=== PATIENT | female | born 1945 | race Caucasian/White ===

== ENCOUNTER 2025-02-16 06:03 | Outpatient (REF) | payer MEDICARE, SELFPAY ==
[2025-02-16 06:05] LABS: MANUAL DIFF FLAG NO
--- OUTSIDE RECORDS SUMMARY | 2025-02-16 06:06 | XMS_ITS | Encounter Summary ---
Author Organization [facility] Address [address] [place] [address] Phone Care Team Providers Care Mobile Home Mechanic Name Role Phone Dandre Chavez MD Primary Care Provider [phone] Encounter Details Date Type Department Care Team (Late st Contact Info) Description 10/30/2022 Documentation Only [facility] [address] [place] [address] Melissa Delgadillo [address] [place] [phone] Social History Tobacco Use Types Packs/Day Years Used Date Smoking Tobacco: Never Comments Unknown Sex and Gender Information Value Date Recorded Sex Assigned at Not on file Legal Sex Female 4:32 PM EST Gender Identity Not on file Sexual Orientation Not on file documented as of this encounter Plan of Treatment Upcoming Encounters Date Type Department Care Team (Late st Contact Info) Description 04/13/2025 3:10 PM EDT Office Visit [facility] [address] [place] [phone] Og Arzate MD [address] [place] [address] [place] [phone] documented as of this encounter Visit Diagnoses Not on filedocumented in this encounter Care Teams Mobile Home Mechanic Relationship Specialty Start Date End Date Dandre Chavez MD [address] [place] [address] [address] [place], [place] PCP - General 07/07/19 documented as of this encounter
[2025-02-16 06:39] LABS: Basophils Percent Auto 0.8 % (0-2); Eosinophils Absolute Auto 0.2 X10*3/uL (0.0-0.4); Hemoglobin 8.5 g/dl (12.0-16.0); Imm Gran Abs Auto 0.02 X10*3/uL (0.00-0.03); Imm Gran Pct Auto 0.4 % (0.0-0.4); Lymphocytes Absolute Auto 0.8 X10*3/uL (1.2-4.9); Lymphocytes Percent Auto 14.4 % (20-40); Mean Corpuscular HGB Conc 28.3 g/dl (31.0-35.0); Mean Corpuscular Hemoglobin 28.1 pg (27.0-33.0); Mean Platelet Volume 11.1 fL (9.4-12.3); Monocytes Absolute Auto 0.9 X10*3/uL (0.1-1.2); Monocytes Percent Auto 16.3 % (2-11); Neutrophils Absolute Auto 3.4 x10*3/uL (2.0-8.3); Neutrophils Percent Auto 64.1 % (45-73); Platelet Count 217 X10*3/uL (160-400); Red Blood Count 3.03 X10*6/uL (4.20-5.50); Red Cell Distribution Width 17.3 % (11.0-16.0); White Blood Count 5.3 X10*3/uL (4.8-10.8)
[2025-02-16 06:46] LABS: Alanine Aminotransferase 12 U/L (0-31); Albumin Level 3.3 g/dL (3.5-5.0); Alkaline Phosphatase 56 U/L (39-117); Anion Gap 13 (12-20); Aspartate Amino Transferase 20 U/L (5-31); Bilirubin Total 0.6 mg/dL (0.0-1.0); Blood Urea Nitrogen 63 mg/dL (9-16); Calcium 8.9 mg/dL (8.4-10.2); Carbon Dioxide 29 mmol/L (22-29); Chloride 104 mmol/L (96-108); Estimated Glomerular Filt Rate 23; Glucose Random 128 mg/dL (60-115); Potassium 3.8 mmol/L (3.3-5.1); Sodium 142 mmol/L (135-145); Total Protein 6.1 g/dL (6.5-8.0)
== END 2025-02-16 06:04 | disposition home or self-care (01) ==
LOC: HO.MMNH2L 06:03
PROVIDERS: Visit Provider Nurse Practitioner Family
DX: I10 Essential (primary) hypertension (principal); N18.4 Chronic kidney disease, stage 4 (severe)
CPT/HCPCS: 36415; 80053; 85025

== ENCOUNTER 2025-02-22 05:46 | Outpatient (REF) | payer MEDICARE, SELFPAY ==
[2025-02-22 05:46] LABS: MANUAL DIFF FLAG NO
--- OUTSIDE RECORDS SUMMARY | 2025-02-22 05:49 | XMS_ITS | Encounter Summary ---
Author Organization [facility] Address [address] [place] [address] Phone Care Team Providers Care Filtration Plant Operator Name Role Phone Dandre Chavez MD Primary Care Provider [phone] Encounter Details Date Type Department Care Team (Late st Contact Info) Description 10/30/2022 Documentation Only [facility] [address] [place] [address] Melissa Delgadillo [address] [place] [phone] Social History Tobacco Use Types Packs/Day Years [...] Visit [facility] [address] [place] [phone] Og Arzate MD [address] [place] [address] [place] [phone] documented as of this encounter Visit Diagnoses Not on filedocumented in this encounter Care Teams Filtration Plant Operator Relationship Specialty Start Date End Date Dandre Chavez MD [address] [place] [address] [address] [place], [place] PCP - General 07/07/19 documented as of this encounter
[2025-02-22 07:04] LABS: Anion Gap 15 (12-20); Blood Urea Nitrogen 61 mg/dL (9-16); Calcium 9.4 mg/dL (8.4-10.2); Carbon Dioxide 27 mmol/L (22-29); Chloride 106 mmol/L (96-108); Estimated Glomerular Filt Rate 24; Glucose Random 111 mg/dL (60-115); Potassium 3.9 mmol/L (3.3-5.1); Sodium 144 mmol/L (135-145)
[2025-02-22 07:16] LABS: Basophils Percent Auto 1.1 % (0-2); Eosinophils Absolute Auto 0.2 X10*3/uL (0.0-0.4); Eosinophils Percent Auto 4.1 % (0-4); Hematocrit 31.4 % (37.0-47.0); Imm Gran Abs Auto 0.01 X10*3/uL (0.00-0.03); Imm Gran Pct Auto 0.3 % (0.0-0.4); Lymphocytes Absolute Auto 0.6 X10*3/uL (1.2-4.9); Lymphocytes Percent Auto 16.2 % (20-40); Mean Corpuscular HGB Conc 28.7 g/dl (31.0-35.0); Mean Corpuscular Volume 97.8 fL (80.0-98.0); Mean Platelet Volume 10.5 fL (9.4-12.3); Monocytes Absolute Auto 0.6 X10*3/uL (0.1-1.2); Monocytes Percent Auto 15.1 % (2-11); Neutrophils Absolute Auto 2.3 x10*3/uL (2.0-8.3); Neutrophils Percent Auto 63.2 % (45-73); Platelet Count 198 X10*3/uL (160-400); Red Blood Count 3.21 X10*6/uL (4.20-5.50); Red Cell Distribution Width 17.7 % (11.0-16.0); White Blood Count 3.7 X10*3/uL (4.8-10.8)
== END 2025-02-22 05:47 | disposition home or self-care (01) ==
LOC: HO.MMNH2L 05:46
PROVIDERS: Visit Provider Nurse Practitioner Family
DX: I10 Essential (primary) hypertension (principal); N18.4 Chronic kidney disease, stage 4 (severe)
CPT/HCPCS: 36415; 80048; 85025

== ENCOUNTER 2025-02-23 05:36 | Outpatient (REF) | payer MEDICARE, SELFPAY ==
[2025-02-23 05:39] LABS: MANUAL DIFF FLAG NO
--- OUTSIDE RECORDS SUMMARY | 2025-02-23 05:39 | XMS_ITS | Encounter Summary ---
Author Organization [facility] Address [address] [place] [address] Phone Care Team Providers Care Book Sewing Machine Operator Name Role Phone Dandre Chavez MD Primary Care Provider [phone] Encounter Details Date Type Department Care Team (Late st Contact Info) Description 10/30/2022 Documentation Only [facility] [address] [place] [address] Melissa Delgadillo [address] [place] [phone] Social History Tobacco Use Types Packs/Day Years [...] Visit [facility] [address] [place] [phone] Og Arzate MD [address] [place] [address] [place] [phone] documented as of this encounter Visit Diagnoses Not on filedocumented in this encounter Care Teams Book Sewing Machine Operator Relationship Specialty Start Date End Date Dandre Chavez MD [address] [place] [address] 201 [place], [place] PCP - General 07/07/19 documented as of this encounter
[2025-02-23 06:13] LABS: Anion Gap 14 (12-20); Blood Urea Nitrogen 63 mg/dL (9-16); Calcium 9.3 mg/dL (8.4-10.2); Carbon Dioxide 27 mmol/L (22-29); Chloride 106 mmol/L (96-108); Estimated Glomerular Filt Rate 23; Glucose Random 109 mg/dL (60-115); Potassium 3.8 mmol/L (3.3-5.1); Sodium 143 mmol/L (135-145)
[2025-02-23 06:18] LABS: Basophils Percent Auto 0.8 % (0-2); Eosinophils Absolute Auto 0.1 X10*3/uL (0.0-0.4); Eosinophils Percent Auto 3.5 % (0-4); Hematocrit 28.4 % (37.0-47.0); Hemoglobin 8.2 g/dl (12.0-16.0); Imm Gran Abs Auto 0.01 X10*3/uL (0.00-0.03); Imm Gran Pct Auto 0.3 % (0.0-0.4); Lymphocytes Absolute Auto 0.7 X10*3/uL (1.2-4.9); Lymphocytes Percent Auto 18.1 % (20-40); Mean Corpuscular HGB Conc 28.9 g/dl (31.0-35.0); Mean Corpuscular Hemoglobin 27.7 pg (27.0-33.0); Mean Corpuscular Volume 95.9 fL (80.0-98.0); Mean Platelet Volume 10.7 fL (9.4-12.3); Monocytes Absolute Auto 0.7 X10*3/uL (0.1-1.2); Monocytes Percent Auto 18.6 % (2-11); Neutrophils Absolute Auto 2.2 x10*3/uL (2.0-8.3); Neutrophils Percent Auto 58.7 % (45-73); Platelet Count 177 X10*3/uL (160-400); Red Blood Count 2.96 X10*6/uL (4.20-5.50); White Blood Count 3.7 X10*3/uL (4.8-10.8)
== END 2025-02-23 05:37 | disposition home or self-care (01) ==
LOC: HO.MMNH2L 05:36
PROVIDERS: Visit Provider Student in an Organized Health Care Education/Training Program
DX: J44.1 Chronic obstructive pulmonary disease with (acute) exacerbation (principal); I27.20 Pulmonary hypertension, unspecified; I50.23 Acute on chronic systolic (congestive) heart failure
CPT/HCPCS: 36415; 80048; 85025

== ENCOUNTER 2025-02-26 05:24 | Outpatient (REF) | payer MEDICARE, SELFPAY ==
[2025-02-26 05:49] LABS: Basophils Percent Auto 0.6 % (0-2); Eosinophils Absolute Auto 0.1 X10*3/uL (0.0-0.4); Eosinophils Percent Auto 3.8 % (0-4); Hematocrit 28.5 % (37.0-47.0); Hemoglobin 8.4 g/dl (12.0-16.0); Imm Gran Abs Auto 0.01 X10*3/uL (0.00-0.03); Imm Gran Pct Auto 0.3 % (0.0-0.4); Lymphocytes Absolute Auto 0.6 X10*3/uL (1.2-4.9); Lymphocytes Percent Auto 17.7 % (20-40); MANUAL DIFF FLAG SCAN; Mean Corpuscular HGB Conc 29.5 g/dl (31.0-35.0); Mean Corpuscular Hemoglobin 28.4 pg (27.0-33.0); Mean Corpuscular Volume 96.3 fL (80.0-98.0); Mean Platelet Volume 10.4 fL (9.4-12.3); Monocytes Absolute Auto 0.7 X10*3/uL (0.1-1.2); Monocytes Percent Auto 20.4 % (2-11); Neutrophils Absolute Auto 1.9 x10*3/uL (2.0-8.3); Neutrophils Percent Auto 57.2 % (45-73); Platelet Count 164 X10*3/uL (160-400); Red Blood Count 2.96 X10*6/uL (4.20-5.50); Red Cell Distribution Width 18.2 % (11.0-16.0); SCAN SMEAR FLAG 1; White Blood Count 3.4 X10*3/uL (4.8-10.8)
[2025-02-26 06:06] LABS: Anion Gap 15 (12-20); Blood Urea Nitrogen 48 mg/dL (9-16); Calcium 8.7 mg/dL (8.4-10.2); Carbon Dioxide 28 mmol/L (22-29); Chloride 103 mmol/L (96-108); Estimated Glomerular Filt Rate 25; Glucose Random 104 mg/dL (60-115); Potassium 3.5 mmol/L (3.3-5.1); Sodium 142 mmol/L (135-145)
[2025-02-26 07:57] LABS: SLIDE REVIEW VERIFIED
== END 2025-02-26 05:25 | disposition home or self-care (01) ==
LOC: HO.MMNH2L 05:24
PROVIDERS: Visit Provider Student in an Organized Health Care Education/Training Program
DX: J44.1 Chronic obstructive pulmonary disease with (acute) exacerbation (principal); I27.20 Pulmonary hypertension, unspecified; I50.23 Acute on chronic systolic (congestive) heart failure
CPT/HCPCS: 36415; 80048; 85025

== ENCOUNTER 2025-03-01 07:38 | Outpatient (REF) | payer MEDICARE, SELFPAY ==
[2025-03-01 06:32] LABS: MANUAL DIFF FLAG NO
[2025-03-01 07:00] LABS: Basophils Percent Auto 0.8 % (0-2); Eosinophils Absolute Auto 0.2 X10*3/uL (0.0-0.4); Eosinophils Percent Auto 4.1 % (0-4); Hematocrit 30.1 % (37.0-47.0); Hemoglobin 8.6 g/dl (12.0-16.0); Imm Gran Abs Auto 0.01 X10*3/uL (0.00-0.03); Imm Gran Pct Auto 0.3 % (0.0-0.4); Lymphocytes Absolute Auto 0.7 X10*3/uL (1.2-4.9); Lymphocytes Percent Auto 17.7 % (20-40); Mean Corpuscular HGB Conc 28.6 g/dl (31.0-35.0); Mean Corpuscular Hemoglobin 28.2 pg (27.0-33.0); Mean Corpuscular Volume 98.7 fL (80.0-98.0); Monocytes Absolute Auto 0.6 X10*3/uL (0.1-1.2); Monocytes Percent Auto 14.6 % (2-11); Neutrophils Absolute Auto 2.4 x10*3/uL (2.0-8.3); Neutrophils Percent Auto 62.5 % (45-73); Platelet Count 166 X10*3/uL (160-400); Red Blood Count 3.05 X10*6/uL (4.20-5.50); Red Cell Distribution Width 18.2 % (11.0-16.0); White Blood Count 3.9 X10*3/uL (4.8-10.8)
[2025-03-01 07:15] LABS: Anion Gap 13 (12-20); Blood Urea Nitrogen 45 mg/dL (9-16); Calcium 8.7 mg/dL (8.4-10.2); Carbon Dioxide 29 mmol/L (22-29); Chloride 104 mmol/L (96-108); Estimated Glomerular Filt Rate 29; Glucose Random 89 mg/dL (60-115); Potassium 3.9 mmol/L (3.3-5.1); Sodium 142 mmol/L (135-145)
--- OUTSIDE RECORDS SUMMARY | 2025-03-01 07:40 | XMS_ITS | Encounter Summary ---
Author Organization [facility] Address [address] [place] [address] Phone Care Team Providers Care Director Hedis Name Role Phone Dandre Chavez MD Primary Care Provider [phone] Encounter Details Date Type Department Care Team (Late st Contact Info) Description 10/30/2022 Documentation Only [facility] [address] [place] [phone] Melissa Delgadillo [address] [place] [phone] Social History Tobacco Use Types Packs/Day Years [...] Visit [facility] [address] [place] [phone] Og Arzate MD [address] [place] [address] [place] [phone] documented as of this encounter Visit Diagnoses Not on filedocumented in this encounter Care Teams Director Hedis Relationship Specialty Start Date End Date Dandre Chavez MD [address] [place] [address], [address] [place], [place] PCP - General 07/07/19 documented as of this encounter
== END 2025-03-01 07:39 | disposition home or self-care (01) ==
LOC: HO.MMNH2L 07:38
PROVIDERS: Visit Provider Nurse Practitioner Family
DX: I12.9 Hypertensive chronic kidney disease with stage 1 through stage 4 chronic kidney disease, or unspecified chronic kidney disease (principal); N18.4 Chronic kidney disease, stage 4 (severe)
CPT/HCPCS: 36415; 80048; 85025

== ENCOUNTER 2025-03-08 14:25 | Outpatient (REF) | payer MEDICARE, SELFPAY ==
--- OUTSIDE RECORDS SUMMARY | 2018-12-31 05:05 | XMS_ITS | Continuity of Care Document ---
Author Organization Pending sale to [facility] Address [address] [address] Phone Care Team Providers Care Restaurant Busser Name Role Phone Brodie Hinds DO Unavailable Unavailable Advance Directives Directive Yes / No Effective Date File Name No Information Encounters Encounter Description Practice Location Reason(s) For Visit Diagnoses Date Provider Pending [facility] to [facility], [address], [id number], [place] tel:[phone] [address] [place] [address] No Information 2018 Guzman Calloway. [address] [place] [address], [id number], [place]. tel:[phone] Family History Family Member Type Diagnosis Age [...]
[2025-03-08 06:25] LABS: MANUAL DIFF FLAG NO
[2025-03-08 07:08] LABS: Hematocrit 31.2 % (37.0-47.0); Hemoglobin 9.1 g/dl (12.0-16.0); Imm Gran Abs Auto 0.01 X10*3/uL (0.00-0.03); Imm Gran Pct Auto 0.2 % (0.0-0.4); Lymphocytes Absolute Auto 0.7 X10*3/uL (1.2-4.9); Mean Corpuscular HGB Conc 29.2 g/dl (31.0-35.0); Mean Corpuscular Hemoglobin 28.5 pg (27.0-33.0); Mean Corpuscular Volume 97.8 fL (80.0-98.0); NRBC Abs Auto 0.000 X10*3/uL (0.0-0.012); NRBC Pct Auto 0.0 /100WBC (0.0-0.2); Platelet Count 190 X10*3/uL (160-400); Red Blood Count 3.19 X10*6/uL (4.20-5.50); White Blood Count 4.4 X10*3/uL (4.8-10.8)
[2025-03-08 07:25] LABS: Alanine Aminotransferase 31 U/L (0-31); Albumin Level 3.4 g/dL (3.5-5.0); Alkaline Phosphatase 67 U/L (39-117); Anion Gap 15 (12-20); Aspartate Amino Transferase 26 U/L (5-31); Blood Urea Nitrogen 50 mg/dL (9-16); Calcium 8.8 mg/dL (8.4-10.2); Carbon Dioxide 29 mmol/L (22-29); Chloride 102 mmol/L (96-108); Estimated Glomerular Filt Rate 27; Potassium 3.3 mmol/L (3.3-5.1); Sodium 143 mmol/L (135-145); Total Protein 6.2 g/dL (6.5-8.0)
--- OUTSIDE RECORDS SUMMARY | 2025-03-08 14:58 | XMS_ITS | Clinical Summary ---
Author Organization [address] Address [address] [place] [address] Phone Care Team Providers Care Quality Review Specialist Name Role Phone Amina Burciaga MD Primary Care Provider Immunizations Name Administration Dates Next Due Pfizer SARS-CoV-2 COVID-19, mRNA, LNP-S, preservative free 11/08/2020 Social History Tobacco Use Types Packs/Day Years Used Date Smoking Tobacco: Never Assessed Comments Unknown Sex and Gender Information Value Date Recorded Sex Assigned at Not on file Legal Sex Female 8:20 PM EST Gender Identity Not on file Sexual Orientation Not on file Plan of Treatment Health Maintenance Due Date Last Done Comments Diabetes: Annual Foot Exam 1957 Diabetes: Annual Retina Eye Exam 1955 Zoster Vaccines (1 of 2) 1997 Pneumococcal Vaccine: 50+ Years (2 of 2 - PCV) 05/27/2015 05/27/2014 RSV Immunization Adult Patients (1 - 1-dose 75+ series) 2022 Cholesterol Screening (Lipid Panel) 09/26/2023 Depression Screening 09/26/2023 Falls Risk Assessment 09/26/2023 Hepatitis C Screening 09/26/2023 Medicare Annual Wellness Visit 09/26/2023 Osteoporosis Screening (Bone Density Screening) 09/26/2023 Social Influencers of Health Screening 09/26/2023 Hepatitis B Vaccines (3 of 3 - 19+ 3-dose series) 11/12/2023 07/30/2023, 05/14/2023 COVID-19 Vaccine ( - season) 2024 09/25/2021, 11/29/2020, 11/08/2020 Diabetes: Annual Urine Albumin-Creatinine Ratio (uACR) 07/13/2024 Diabetes: Blood Sugar Control Test (HGBA1C) 03/23/2025 09/23/2024, 09/07/2024, 07/10/2024, Additional history exists Diabetes: Annual GFR (Glomerular Filtration Rate) 09/30/2025 09/30/2024, 09/23/2024, 09/11/2024, Additional history exists Hypertension/CHF/CAD Annual BMP Blood Test 09/30/2025 09/30/2024, 09/23/2024, 09/11/2024, Additional history exists DTaP,Tdap,and Td Vaccines (2 - Td or Tdap) 08/02/2032 08/02/2022 Influenza Vaccine Completed 07/04/2024, , 05/19/2020, Additional history exists HIB Vaccines Aged Out No longer eligi ble based on patient's age to complete this topic HPV Vaccines Aged Out No longer eligi ble based on patient's age to complete this topic Hepatitis A Vaccines Aged Out No long er eligible based on patient's age to complete this topic IPV Vaccines Aged Out No longer eligi ble based on patient's age to complete this topic MMR Vaccines Aged Out No longer eligi ble based on patient's age to complete this topic Meningococcal ACWY Vaccine Aged Out N o longer eligible based on patient's age to complete this topic Meningococcal B Vaccine Aged Out No l onger eligible based on patient's age to complete this topic RSV Immunization Patients Under 20 months Aged Out No longer eligible based on patient's age to complete this topic Varicella Vaccines Aged Out No longer eligible based on patient's age to complete this topic Procedures Procedure Name Priority Date/Time Associated Diagnosis Comments COMPREHENSIVE METABOLIC PANEL Routine 09/30/2024 9:57 AM EST Heart failure, unspecified (CMS/HCC) Vitamin D deficiency, unspecified HEMOGLOBIN A1C Routine 09/23/2024 8:20 AM EST Type 2 diabetes mellitus with unspecified complications (CMS/HCC) Unspecified systolic (congestive) heart failure (CMS/HCC) from Last 3 Months or Most Recently Relevant to Health Maintenance Results * (ABNORMAL) Comprehensive metabolic panel (09/30/2024 9:57 AM EST) Sodium 138 133 - 145 mmol/L LAB CHEMISTRY METHOD 09/30/2024 1:04 PM [facility] Potassium 3.7 3.5 - 5.5 mmol/L LAB CHEMISTRY METHOD 09/30/2024 1:04 PM [facility] Chloride 100 96 - 110 mmol/L LAB CHEMISTRY METHOD 09/30/2024 1:04 PM [facility] CO2 31 21 - 32 mmol/L LAB CHEMISTRY METHOD 09/30/2024 1:04 PM [facility] Anion Gap 7 3 - 11 LAB CHEMISTRY METHOD 09/30/2024 1:04 PM [facility] Glucose 228(H) 70 - 100 mg/dL LAB CHEMISTRY METHOD 09/30/2024 1:04 PM [facility] BUN 90(H) 5 - 25 mg/dL LAB CHEMISTRY METHOD 09/30/2024 1:04 PM [facility] Creatinine 2.19(H) 0.50 - 1.10 mg/dL LAB CHEMISTRY METHOD 09/30/2024 1:04 PM [facility] eGFR 23(L) >=60 mL/min/1. 73m2 LAB CHEMISTRY METHOD 09/30/2024 1:04 PM [facility] Comment:Calculation based on the Chronic Kidney Disease Epidemiology Collaboration (CKD-EPI) equation refit without adjustment for race. BUN/Creatinine Ratio 41.1 LAB CHEMISTRY METHOD 09/30/2024 1:04 PM [facility] Calcium 8.9 8.5 - 10.5 mg/dL LAB CHEMISTRY METHOD 09/30/2024 1:04 PM [facility] AST (SGOT) 22 10 - 42 unit/L LAB CHEMISTRY METHOD 09/30/2024 1:04 PM [facility] ALT (SGPT) 28 10 - 60 unit/L LAB CHEMISTRY METHOD 09/30/2024 1:04 PM [facility] Alkaline Phosphatase 47 42 - 121 unit/L LAB CHEMISTRY METHOD 09/30/2024 1:04 PM [facility] Total Protein 6.2 6.0 - 8.0 g/dL LAB CHEMISTRY METHOD 09/30/2024 1:04 PM [facility] Albumin 2.7(L) 3.2 - 5.0 g/dL LAB CHEMISTRY METHOD 09/30/2024 1:04 PM [facility] Total Bilirubin 0.6 0.0 - 1.4 mg/dL LAB CHEMISTRY METHOD 09/30/2024 1:04 PM [facility] Blood Venous blood specimen / Unknown Venipuncture / Unknown 09/30/2024 9:57 AM EST 09/30/2024 10:50 AM EST Isaac Stark MD LAB BLOOD ORDERABLES Final Resu lt Performing Organization Address [facility]/ZIP Co de Phone Number [facility] [address] [place] [address], [place] [phone] * Hemoglobin A1c (09/23/2024 8:20 AM EST) Hemoglobin A1C 5.3 <6.5 % LAB CHEMISTRY METHOD 09/23/2024 2:17 PM [facility] Mean Bld Glu Estim. 105 mg/dL LAB CHEMISTRY METHOD 09/23/2024 2:17 PM [facility] Blood Venous blood specimen / Unknown Venipuncture / Unknown 09/23/2024 8:20 AM EST 09/23/2024 12:06 PM EST us Amina Burciaga MD LAB BLOOD ORDERABLES Final Resul t Performing Organization Address [facility]/ZIP Co de Phone Number [facility] [address] [place] [address], [place] [phone] from Last 3 Months or Most Recently Relevant to Health Maintenance Insurance [place]ICA[place] Care Teams Quality Review Specialist Relationship Specialty Start Date End Date Amina Burciaga MD [address] [place] [phone] PCP - General Hospitalist Medicine 09/11/24
--- OUTSIDE RECORDS SUMMARY | 2025-03-08 14:58 | XMS_ITS | Encounter Summary ---
Author Organization [facility] Address [address] [place] [address] Phone Care Team Providers Care Vulnerability Assessment Analyst Name Role Phone Dandre Chavez MD Primary Care Provider [phone] Encounter Details Date Type Department Care Team (Late st Contact Info) Description 10/30/2022 Documentation Only [facility] [address] [place] [phone] Melissa Delgadillo [address] [place] [phone] Social History Tobacco Use Types Packs/Day Years [...] Visit [facility] [address] [place] [phone] Og Arzate MD [address] [place] [address] [place] [phone] documented as of this encounter Visit Diagnoses Not on filedocumented in this encounter Care Teams Vulnerability Assessment Analyst Relationship Specialty Start Date End Date Dandre Chavez MD [address] [place] [address], [address] [place], [place] PCP - General 07/07/19 documented as of this encounter
--- OUTSIDE RECORDS SUMMARY | 2025-03-08 14:58 | XMS_ITS | Clinical Summary ---
Author Organization [facility] Address [address] [place] [address] Care Team Providers Care Biochemistry Technician Name Role Phone Dandre Chavez MD Primary Care Provider [phone] Allergies Active Allergy Reactions Criticality Noted Date Comments Amlodipine Other (See Comments) 10/28/2018 Bethanechol Other (See Comments) 10/28/2018 Other reaction(s): anorexia and loss of sight Metoprolol 02/16/2022 Oxycodone-Acetaminophen Other (See Comments) Medications Medication Sig Dispensed Refills Start Date End Date Status allopurinol (ZYLOPRIM) 100 MG tablet TAKE 1 TABLET(100 MG) BY MOUTH EVERY DAY 0 01/23/2022 Active aspirin 81 MG EC tablet Take 1 tablet (81 mg total) by mouth. 0 Active atorvastatin (LIPITOR) tablet 80 mg atorvastatin 80 mg tablet 0 01/21/2015 Active carvedilol (COREG) 3.125 MG tablet Take 1 tablet (3.125 mg total) by mouth 2 (two) times a day. 0 09/10/2022 Active docusate sodium (COLACE) 100 MG capsule Take 1 capsule (100 mg total) by mouth 2 (two) times a day. 0 10/02/2022 Active Jardiance 10 MG tablet 0 10/19/2022 Active fexofenadine (JUAN) 60 MG tablet 0 Active glipiZIDE (GLUCOTROL) tablet 5 mg glipizide 5 mg tablet 0 11/22/2018 Act bety guselkumab (TREMFYA) 100 MG/ML Inject under the skin. 0 Active levothyroxine (SYNTHROID) tablet 112 mcg Take 1 tablet (112 mcg total) by mouth. 0 11/24/2018 Active PARoxetine (PAXIL) 20 MG tablet Take 1 tablet (20 mg total) by mouth daily. 0 10/18/2022 Active torsemide (DEMADEX) 100 MG tablet 0 09/27/2022 Active traMADol (ULTRAM) 50 MG tablet Take 50 mg by mouth every 6 (six) hours as needed. for pain 0 10/18/2022 Active Active Problems Problem Noted Date Diagnosed Date Anemia 11/09/2022 Social History Tobacco Use Types Packs/Day Years Used Date Smoking Tobacco: Never Assessed Sex and Gender Information Value Date Recorded Sex Assigned at Not on file Gender Identity Not on file Sexual Orientation Not on file Job Start Date Occupation Industry Not on file Not on file Not on file Last Filed Vital Signs Vital Sign Reading Time Taken Comments Blood Pressure 102/43 01/21/2023 2:50 PM EDT Pulse 64 01/21/2023 2:50 PM EDT Temperature 36.3 C (97.3 F) 01/21/2023 2:50 PM EDT Respiratory Rate 18 01/21/2023 2:50 PM EDT Oxygen Saturation 96% 01/21/2023 2:50 PM EDT Inhaled Oxygen Concentration - - Weight 123.6 kg (272 lb 7.8 oz) 11/12/2022 1:22 PM EDT Height - - Body Mass Index - - Plan of Treatment Health Maintenance Due Date Last Done Comments Hepatitis C Screening 1945 Depression Screening 1959 Preventative Health Evaluation 1965 DTap / Tdap / Td (1 - Tdap) 1966 Shingrix-Zoster Vaccine (1 o f 2) 1997 Fall Risk Assessment 02/24/2012 Osteoporosis Screening (DEXA Scan) 02/24/2012 Pneumococcal Vaccine (2 of 2 - PCV) 05/27/2015 05/27/2014 RSV Adult > 60+ Yrs or (1 - 1-dose 75+ series) 2022 COVID-19 Vaccine (3 - 2023-2 5 season) 2024 11/29/2020, 11/08/2020 Influenza Vaccine (Season Ended) 2025 05/19/2020, 10/06/2019, 09/12/2018 Hepatitis B Vaccines Aged Out No long er eligible based on patient's age to complete this topic RSV Ped < 20 months Aged Out No longe r eligible based on patient's age to complete this topic Care Teams Biochemistry Technician Relationship Specialty Start Date End Date Dandre Chavez MD [address] [place] [address] [place] [phone] PCP - General Internal Medicine 11/06/22
== END 2025-03-08 14:26 | disposition home or self-care (01) ==
LOC: HO.MMNH2L 14:25
PROVIDERS: Visit Provider Nurse Practitioner Family
DX: I10 Essential (primary) hypertension (principal); N18.4 Chronic kidney disease, stage 4 (severe)
CPT/HCPCS: 36415; 80053; 85025

== ENCOUNTER 2025-03-12 05:24 | Outpatient (REF) | payer MEDICARE, SELFPAY ==
[2025-03-12 06:01] LABS: Anion Gap 13 (12-20); Blood Urea Nitrogen 49 mg/dL (9-16); Calcium 8.9 mg/dL (8.4-10.2); Carbon Dioxide 30 mmol/L (22-29); Chloride 103 mmol/L (96-108); Estimated Glomerular Filt Rate 25; Potassium 3.9 mmol/L (3.3-5.1); Sodium 142 mmol/L (135-145)
== END 2025-03-12 05:25 | disposition home or self-care (01) ==
LOC: HO.MMNH2L 05:24
PROVIDERS: Visit Provider Nurse Practitioner Family
DX: I10 Essential (primary) hypertension (principal)
CPT/HCPCS: 36415; 80048

== ENCOUNTER 2025-03-22 06:02 | Outpatient (REF) | payer MEDICARE, SELFPAY ==
--- OUTSIDE RECORDS SUMMARY | 2018-12-31 05:05 | XMS_ITS | Continuity of Care Document ---
Author Organization [facility] Address [address] [address] Phone Care Team Providers Care Armature Coil Winder Name Role Phone Brodie Hinds DO Unavailable Unavailable Advance Directives Directive Yes / No Effective Date File Name No Information Encounters Encounter Description Practice Location Reason(s) For Visit Diagnoses Date Provider [facility], [address], [id number], [place] tel:[phone] [address] [place] [address] No Information 2018 Guzman Calloway. [address] [place] [address], [id number], [place]. tel:[phone] Family History Family Member Type Diagnosis Age [...]
[2025-03-22 05:53] LABS: MANUAL DIFF FLAG NO
--- OUTSIDE RECORDS SUMMARY | 2025-03-22 06:06 | XMS_ITS | Clinical Summary ---
Author Organization [facility] Address [address] [place] [address] Phone Care Team Providers Care Backing In Machine Tender Name Role Phone Dandre Chavez MD Primary Care Provider [phone] Allergies Active Allergy Reactions Criticality Noted Date Comments Amlodipine Other (see comments) 10/28/2018 Bethanechol Other (see comments) 10/28/2018 Metoprolol 02/16/2022 Other Other (see comments) 01/04/2020 Oxycodone-Acetaminophen Other (see comments) Medications ASPIRIN 81 PO Take 81 mg by mouth daily Active fexofenadine (JUAN) 60 MG tablet Active Loperamide HCl (IMODIUM PO) Imodium Active Multiple Vitamins-Minera ls (MULTIVITAMIN ADULTS PO) Take 1 tablet by mouth 1 (one) time each day Active atorvastatin (LIPITOR) 80 MG tablet Take 1 tablet by mouth at bed time 5 Active carvedilol (COREG) 12.5 MG tablet Take 3.125 mg by mouth in the morning and 3.125 mg in the evening. 0 Active glipiZIDE (GLUCOTROL) 5 MG tablet Take 7.5 mg by mouth 1 (one) time each day 9 Active levothyroxine (SYNTHROID, LEVOTHROID) 112 MCG tablet Take 1 tablet (112 mcg total) by mouth 1 (one) time each day 9 Active PARoxetine (PAXIL) 20 MG tablet Take 20 mg by mouth 1 (one) time each day 9 Active traMADol (ULTRAM) 50 MG tablet Take 50 mg by mouth every 6 (six) hours if needed Active triamcinolone (KENALOG) 0.1 % cream Apply topically 2 (two) times a day Active torsemide (DEMADEX) 100 MG tablet Take 100 mg by mouth 1 (one) time each day Active Guselkumab (Tremfya) 100 MG/ML solution pen-injector Inject under the skin Active allopurinol (ZYLOPRIM) 100 MG tablet TAKE 1 TABLET(100 MG) BY MOUTH EVERY DAY 60 tablet 2 2 Active Active Problems Problem Noted Date Diagnosed Date Iron deficiency anemia, not otherwise specified 11/30/2022 Anemia in chronic kidney disease 10/29/2022 Stage 3b chronic kidney disease 10/05/2019 Overview (09/05/2020): Update for Diagnosis Load Essential (primary) hypertension 10/05/2019 Type 2 diabetes mellitus with diabetic nephropat hy Resolved Problems Problem Noted Date Diagnosed Date Resolved Date Coronary atherosclerosis 10/28/201802/2020 Overview (07/08/2020): Last Assessment & Plan: History of inferior NC in 2013 with a stent to her RCA , LAD and circumflex and end STEMI in 2019 with another stent to mid LAD with 80% mid RCA and 50% proximal circumflex stenosis. Today clinically stable, denies angina, continue on aspirin 81 mg daily and to optimize risks factors. Recheck lipids on lipitor 80 mg daily. Acute nontraumatic kidney injury 12/13/2020 Systolic congestive heart failure 07/08/2020 Serum creatinine above reference range 12/13/2020 Psoriatic arthritis 07/08/20 20 Anemia 12/13/2020 Edema of lower extremity 02/2020 Essential hypertension 07/08 Hyperlipidemia 12/13/2020 Hypothyroidism 12/13/2020 Encounters Date Type Department Care Team Description 01/08/2025 Documentation Only [facility], [address] [place] [address] Radha Chatterjee MA from Last 3 Months Immunizations Immunization Administration Dates Next Due Hepatitis B 07/30/2023,05/14/2023 Pfizer SARS-COV-2 11/08/2020 Social History Tobacco Use Types Packs/Day Years Used Date Smoking Tobacco: Never Comments Unknown Sex and Gender Information Value Date Recorded Sex Assigned at Not on file Legal Sex Female 4:32 PM EST Gender Identity Not on file Sexual Orientation Not on file Last Filed Vital Signs Vital Sign Reading Time Taken Comments Blood Pressure 104/84 06/18/2023 4:39 PM EDT Pulse 73 10/18/2022 2:24 PM EST Temperature - - Respiratory Rate - - Oxygen Saturation - - Inhaled Oxygen Concentration - - Weight 130 kg (286 lb 9.6 oz) 07/04/2021 3:14 PM EDT Height 167.6 cm (5' 6 ) 10/05/2019 2:02 PM EST Body Mass Index 46.26 10/05/2019 2:02 PM EST Plan of Treatment Upcoming Encounters Date Type Department Care Team (Late st Contact Info) Description 04/13/2025 3:10 PM EDT Office Visit [facility], [address] [place] [phone] Og Arzate MD [address] [place] [phone] Health Maintenance Due Date Last Done Comments Pneumococcal Vaccine: 50+ Years (2 of 2 - PCV) 05/27/2015 05/27/2014 Diabetes: Ophthalmology Exam 11/23/2019 Diabetes: Pedal Pulse Checked 11/23/2019 Diabetes: Sensory Foot Exam 11/23/2019 Diabetes: Visual Foot Exam 11/23/2019 Diabetes: Hemoglobin A1C 12/22/2024 025, 09/07/2024, 10/18/2022, Additional history exists Influenza Vaccine (#1) 2025 07/04/2024, 2019 Pneumococcal Vaccine: Peds (0 to 5 Years) and At-Risk Patients (6 to 49 Years) Discontinued 05/27/2014 Hepatitis B Vaccine Aged Out 07/30/2023, No longer eligible based on patient's age to complete this topic Procedures Procedure Name Priority Date/Time Associated Diagnosis Comments HEMOGLOBIN A1C Routine 10/18/2022 2:34 PM EST Stage 3a chronic kidney disease (HCC) from Last 3 Months or Most Recently Relevant to Health Maintenance Results * (ABNORMAL) Hemoglobin A1c (10/18/2022 2:34 PM EST) Hemoglobin A1C 6.9(H) (4.0-5.6) % [facility] Comment: MONITORING: In known diabetic patients, hemoglobin A1c targets should be discussed with health care provider. DIAGNOSTIC USE: The [place] Diabetes Association (ADA) and the World Health Organization (WHO) recommend the use of HbA1c to diagnose diabetes using a threshold of 6.5%. Patients who have an HbA1c between 5.7% and 6.4% are considered at increased risk for developing diabetes in the future. CAUTION: Falsely low HbA1c results may be observed in patients with hemolytic anemia, homozygous forms of abnormal hemoglobin (e.g. SS, CC, SC), , recent blood loss or hemoglobin F greater than 7%. Fructosamine may be used as an alternate test in these cases. REFERENCE: ADA: Standards of Medical Care in Diabetes 2020, The Journal of Clinical and Applied Research and Education Volume 43, Supplement 1 Testing performed or reported by [facility], a Service of [facility], [address] [place] [address] Louis Fry MD, Accountancy Professor [facility]# [id number] Blood specimen (specimen) Venous blood / Unknown 10/18/2022 2:34 PM EST 10/18/2022 2:35 PM EST us Faina LUCIANO LAB BLOOD ORDERABLES Final Res ult [facility] from Last 3 Months or Most Recently Relevant to Health Maintenance Insurance Medicare [facility] Care Teams Backing In Machine Tender Relationship Specialty Start Date End Date Dandre Chavez MD [address] [place] [address], [address] [place] AGUIRRE PCP - General 07/07/19
--- OUTSIDE RECORDS SUMMARY | 2025-03-22 06:06 | XMS_ITS | Clinical Summary ---
Author Organization [address] Address [address] [place] [address] Phone Care Team Providers Care Registered Nurse Supervisor Name Role Phone Amina Burciaga MD Primary Care Provider [phone] Immunizations Name Administration Dates Next Due Pfizer [...] series) 2022 Cholesterol Screening (Lipid Panel) 09/26/2023 Falls Risk Assessment 09/26/2023 Hepatitis C Screening 09/26/2023 Medicare Annual Wellness Visit 09/26/2023 Osteoporosis Screening (Bone Density Screening) 09/26/2023 Social Influencers of Health Screening 09/26/2023 Hepatitis B Vaccines (3 of 3 - 19+ 3-dose series) 11/12/2023 07/30/2023, 05/14/2023 COVID-19 Vaccine ( - 2023- season) 2024 09/25/2021, 11/29/2020, 11/08/2020 Diabetes: Annual Urine Albumin-Creatinine Ratio (uACR) 07/13/2024 Depression Screening 09/02/2024 Diabetes: Blood Sugar Control Test (HGBA1C) 03/23/2025 09/23/2024, 09/07/2024, 07/10/2024, Additional history exists Influenza Vaccine (#1) 2025 4, 08/02/2022, 05/19/2020, Additional history exists Diabetes: Annual GFR (Glomerular Filtration Rate) 09/30/2025 09/30/2024, 09/23/2024, 09/11/2024, Additional history exists Hypertension/CHF/CAD Annual BMP Blood Test 09/30/2025 09/30/2024, 09/23/2024, 09/11/2024, Additional history exists DTaP,Tdap,and Td Vaccines (2 - Td or Tdap) 08/02/2032 08/02/2022 HIB Vaccines Aged Out No longer eligi [...] mmol/L LAB CHEMISTRY METHOD 09/30/2024 1:04 PM [facility] Potassium 3.7 3.5 - 5.5 mmol/L LAB CHEMISTRY METHOD 09/30/2024 1:04 PM [facility] Chloride 100 96 - 110 mmol/L LAB CHEMISTRY METHOD 09/30/2024 1:04 PM [facility] CO2 31 21 - 32 mmol/L LAB CHEMISTRY METHOD 09/30/2024 1:04 PM [facility] Anion Gap 7 3 - 11 LAB CHEMISTRY METHOD 09/30/2024 1:04 PM [facility] Glucose 228(H) 70 - 100 mg/dL LAB CHEMISTRY METHOD 09/30/2024 1:04 PM [facility] BUN 90(H) 5 - 25 mg/dL LAB CHEMISTRY METHOD 09/30/2024 1:04 PM [facility] Creatinine 2.19(H) 0.50 - 1.10 mg/dL LAB CHEMISTRY METHOD 09/30/2024 1:04 PM [facility] eGFR 23(L) >=60 mL/min/1. 73m2 LAB CHEMISTRY METHOD 09/30/2024 1:04 PM [facility] Comment:Calculation based on the Chronic Kidney Disease Epidemiology Collaboration (CKD-EPI) equation refit without adjustment for race. BUN/Creatinine Ratio 41.1 LAB CHEMISTRY METHOD 09/30/2024 1:04 PM [facility] Calcium 8.9 8.5 - 10.5 mg/dL LAB CHEMISTRY METHOD 09/30/2024 1:04 PM [facility] AST (SGOT) 22 10 - 42 unit/L LAB CHEMISTRY METHOD 09/30/2024 1:04 PM [facility] ALT (SGPT) 28 10 - 60 unit/L LAB CHEMISTRY METHOD 09/30/2024 1:04 PM [facility] Alkaline Phosphatase 47 42 - 121 unit/L LAB CHEMISTRY METHOD 09/30/2024 1:04 PM EST [facility] Total Protein 6.2 6.0 - 8.0 g/dL LAB CHEMISTRY METHOD 09/30/2024 1:04 PM [facility] Albumin 2.7(L) 3.2 - 5.0 g/dL LAB CHEMISTRY METHOD 09/30/2024 1:04 PM [facility] Total Bilirubin 0.6 0.0 - 1.4 mg/dL LAB CHEMISTRY METHOD 09/30/2024 1:04 PM [facility] Blood Venous blood specimen / Unknown Venipuncture / Unknown 09/30/2024 9:57 AM EST 09/30/2024 10:50 AM EST Isaac Stark MD LAB BLOOD ORDERABLES Final Resu lt Performing Organization Address City/[facility]/ZIP Co de Phone Number [facility] [address] [place] [address], [place] [phone] * Hemoglobin A1c (09/23/2024 8:20 AM EST) Hemoglobin A1C 5.3 <6.5 % LAB CHEMISTRY METHOD 09/23/2024 2:17 PM [facility] Mean Bld Glu Estim. 105 mg/dL LAB CHEMISTRY METHOD 09/23/2024 2:17 PM [facility] Blood Venous blood specimen / Unknown Venipuncture / Unknown 09/23/2024 8:20 AM EST 09/23/2024 12:06 PM EST Amina Burciaga MD LAB BLOOD ORDERABLES Final Resul t Performing Organization Address City/[facility]/ZIP Co de Phone Number [facility] [address] [place] [address], [place] [phone] from Last 3 Months or Most Recently Relevant to Health Maintenance Insurance [place] Care Teams Registered Nurse Supervisor Relationship Specialty Start Date End Date Amina Burciaga MD [address] [place] [phone] PCP - General Hospitalist Medicine 09/11/24
--- OUTSIDE RECORDS SUMMARY | 2025-03-22 06:06 | XMS_ITS | Encounter Summary ---
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 Social History Tobacco Use Types Packs/Day Years Used Date Smoking Tobacco: Former Smokeless Tobacco: Never Alcohol Use Standard Drinks/Week Comments Yes 0 (1 standard drink = 0.6 oz pure alcohol) once a year on special occasions Comments Unknown Sex and Gender Information Value Date Recorded Sex Assigned at Not on file Legal Sex Female 10:37 PM EDT Gender Identity Not on file Sexual Orientation Not on file documented as of this encounter Plan of Treatment Not on file documented as of this encounter Results * NC Stress Result for Nuclear Stress Test (12/16/2018 11:32 AM EDT) Max BP Systolic 150 mmHg [facility] Max BP Diastolic 80 mmHg [facility] Max HR 89 BPM [facility] Resting HR 78 BPM [facility] Resting BP Systolic 150 mmHg [facility] Resting BP Diastolic 80 mmHg [facility] Peak METS 1.0 METS [facility] Peak HR 83 BPM [facility] Anatomical Region Laterality Modality Heart Other 12/16/2018 10:5 0 AM EDT 12/16/2018 11:31 AM EDT Narrative 12/16/2018 10:34 PM EDT This report represents only part of the nuclear stress test - sestamibi images will be reported separately by the Dept. of Radiology. Stress Findings Sestamibi images will be reported out separately by the Department of Radiology. This report represents only part of the nuclear stress test. Correlation of the imaging and electrocardiographic results is necessary. Since both tests have a percentage of false negatives/positives, both results must be correlated with the patient's other clinical date. Response to Stress The patient exercised for minutes seconds, achieving 1.0 METS at peak exercise. Baseline blood pressure was 150/80 mmHg, and baseline heart rate was 78 bpm. The patient achieved a peak heart rate of 83 bpm, which is% of their maximum predicted heart rate. REGADENOSON Exercise Stress Test Report: Reason for termination: Protocol complete Summary: Resting ECG: SR HR 75 BPM, downsloping ST depressions I, aVF at baseline, RSR' Chest pain at rest: none Arrhythmias at baseline: none Patient unable to complete test on TM due to gait instability. The patient was infused with 0.4 mg of Regadenoson (Lexiscan) intravenously over 10 seconds followed immediately by the injection of the radiopharmaceutical. Patient tolerated Lexiscan infusion without complications. Test terminated due to completion of protocol. Summary: 1. EKG: No EKG changes suggestive of ischemia. Baseline ST-T wave abnormalities did not significantly change after administration of agent. 2. Symptoms: No chest pain or symptoms concerning for angina 3. Exercise physiology: Normal physiologic response to pharmacologic agent. HR to 89 BPM after injection of Regadenoson. BP 150/80 at baseline, 130/70 after administration of agent. See attached stress report for full details. 4. Arrhythmia: None Conclusion: Nondiagnostic pharmacologic stress test. No ischemic EKG changes from abnormal baseline with pharmacologic protocol. Patient hemodynamically stable at completion of exam. Nuclear image results pending under separate document (2 day study - resting to be completed tomorrow). EKG reviewed with Dr. Chatterjee. She has an already scheduled follow up appointment with Dr. Enciso in our cardiology office on 12/26/18. Cathy Browning, JASMINE, MPH. 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 It is not the complete legal health record.[facility]
--- OUTSIDE RECORDS SUMMARY | 2025-03-22 06:06 | XMS_ITS | Clinical Summary ---
Author Organization [facility] Address [address] [place] [address] Care Team Providers Care Plastics Fitter Name Role Phone Dandre Chavez MD Primary Care Provider [phone] Allergies Active Allergy Reactions Criticality Noted Date [...] 5 season) 2024 11/29/2020, 11/08/2020 Influenza Vaccine (#1) 2025 , 10/06/2019, 09/12/2018 Hepatitis B Vaccines Aged Out No long er eligible based on patient's age to complete this topic RSV Ped < 20 months Aged Out No longe r eligible based on patient's age to complete this topic Care Teams Plastics Fitter Relationship Specialty Start Date End Date Dandre Chavez MD [address] [place] [address] [place] [phone] PCP - General Internal Medicine 11/06/22
[2025-03-22 06:56] LABS: Hematocrit 31.5 % (37.0-47.0); Hemoglobin 9.1 g/dl (12.0-16.0); Imm Gran Abs Auto 0.01 X10*3/uL (0.00-0.03); Imm Gran Pct Auto 0.3 % (0.0-0.4); Lymphocytes Absolute Auto 0.6 X10*3/uL (1.2-4.9); Mean Corpuscular HGB Conc 28.9 g/dl (31.0-35.0); Mean Corpuscular Hemoglobin 28.0 pg (27.0-33.0); Mean Corpuscular Volume 96.9 fL (80.0-98.0); NRBC Abs Auto 0.000 X10*3/uL (0.0-0.012); NRBC Pct Auto 0.0 /100WBC (0.0-0.2); Platelet Count 195 X10*3/uL (160-400); Red Blood Count 3.25 X10*6/uL (4.20-5.50); White Blood Count 3.7 X10*3/uL (4.8-10.8)
[2025-03-22 07:01] LABS: Alanine Aminotransferase 19 U/L (0-31); Albumin Level 3.5 g/dL (3.5-5.0); Alkaline Phosphatase 59 U/L (39-117); Anion Gap 16 (12-20); Aspartate Amino Transferase 25 U/L (5-31); Blood Urea Nitrogen 83 mg/dL (9-16); Calcium 8.9 mg/dL (8.4-10.2); Carbon Dioxide 30 mmol/L (22-29); Chloride 102 mmol/L (96-108); Estimated Glomerular Filt Rate 18; Potassium 3.6 mmol/L (3.3-5.1); Sodium 144 mmol/L (135-145); Total Protein 6.6 g/dL (6.5-8.0)
== END 2025-03-22 06:03 | disposition home or self-care (01) ==
LOC: HO.MMNH2L 06:02
PROVIDERS: Visit Provider Nurse Practitioner Family
DX: I10 Essential (primary) hypertension (principal); N18.4 Chronic kidney disease, stage 4 (severe)
CPT/HCPCS: 36415; 80053; 85025

== ENCOUNTER 2025-03-29 06:14 | Outpatient (REF) | payer MEDICARE, SELFPAY ==
--- OUTSIDE RECORDS SUMMARY | 2018-12-31 05:05 | XMS_ITS | Continuity of Care Document ---
[facility] Organization [facility] Address [address] [address] Phone Care Team Providers Care Strap Sewer Name Role Phone Brodie Hinds DO Unavailable Unavailable Advance Directives Directive Yes / No Effective Date File Name No Information Encounters Encounter Description Practice Location Reason(s) For Visit Diagnoses Date [facility], [address], [id number], [place] tel:[phone] [address] [place] [address] No Information 2018 Guzman Calloway. [address] [place] [address], [id number], [place]. tel:[phone] Family History Family Member Type Diagnosis Age [...]
[2025-03-29 05:52] LABS: MANUAL DIFF FLAG NO
--- OUTSIDE RECORDS SUMMARY | 2025-03-29 06:18 | XMS_ITS | Clinical Summary ---
Author Organization [facility] Address [address] [place] [address] Care Team Providers Care Call Center Nurse Name Role Phone Dandre Chavez MD Primary Care Provider [phone] Allergies Active Allergy Reactions Criticality Noted Date [...] age to complete this topic Care Teams Call Center Nurse Relationship Specialty Start Date End Date Dandre Chavez MD [address] [place] [address] [place] [phone] PCP - General Internal Medicine 11/06/22
--- OUTSIDE RECORDS SUMMARY | 2025-03-29 06:18 | XMS_ITS | Encounter Summary ---
Author Organization [facility] Address [address] [place] [address] Phone Care Team Providers Care Nautical Instrument Mechanic Name Role Phone Dandre Chavez MD Primary Care Provider [phone]- [phone] Miguel Enciso MD Unavailable [phone] Encounter Details Date Type Department Care Team (Latest Contact Info) Description 12/16/2018 Ancillary Orders Non-Invasive Cardiology 30 [place] [address] Cathy Browning NP 101 [facility] 100 [place] [address] Atherosclerosis of lime coronary artery of lime heart with angina pectoris Social History Tobacco [...] AM EDT) Max BP Systolic 150 mmHg [facility] Max BP Diastolic 80 mmHg [facility] Max HR 89 BPM [facility] Resting HR 78 BPM [facility] Resting BP Systolic 150 mmHg [facility] Resting BP Diastolic 80 mmHg [facility] Peak METS 1.0 METS [facility] Peak HR 83 BPM [facility] Anatomical Region Laterality Modality Heart Other 12/16/2018 [...] in our cardiology office on 12/26/18. Cathy Browning NP, MPH. 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 It is not the complete legal health record.[facility]
--- OUTSIDE RECORDS SUMMARY | 2025-03-29 06:18 | XMS_ITS | Clinical Summary ---
Author Organization [facility], Address [address] [place] [address] Phone Care Team Providers Care Control Panel Tester Name Role Phone Dandre Chavez MD Primary Care Provider [phone] Allergies Active Allergy Reactions Criticality Noted Date [...] Last Assessment & Plan: History of inferior NV in 2013 with a stent to her [...] Only [facility], [address] [place] [address] Radha Chatterjee MA from Last 3 Months [...] Visit [facility], [address] [place] [phone] Og Arzate MD [address] [place] [phone] Health Maintenance Due Date Last Done Comments [...] PM EST) Hemoglobin A1C 6.9(H) (4.0-5.6) % [facility] Comment: MONITORING: In known diabetic patients, hemoglobin A1c targets should be discussed with health care provider. DIAGNOSTIC USE: The [place] Diabetes Association (ADA) and the World Health [...] Supplement 1 Testing performed or reported by [facility], a Service of [facility], [address] [place] [address] Louis Fry MD, Veterinary Laboratory Technician [facility]# [id number] Blood specimen (specimen) Venous blood / Unknown 10/18/2022 2:34 PM EST 10/18/2022 2:35 PM EST us Faina LUCIANO LAB BLOOD ORDERABLES Final Res ult [facility] from Last 3 Months or Most Recently Relevant to Health Maintenance Insurance Medicare [facility] Care Teams Control Panel Tester Relationship Specialty Start Date End Date Dandre Chavez MD [address] [place] [address], [address] HORTENSIA AGUIRRE PCP - General 07/07/19
--- OUTSIDE RECORDS SUMMARY | 2025-03-29 06:18 | XMS_ITS | Clinical Summary ---
Author Organization [address] Address [address] [place] [address] Phone Care Team Providers Care Coordinator Of Evaluation Name Role Phone Amina Burciaga MD Primary [...] mmol/L LAB CHEMISTRY METHOD 09/30/2024 1:04 PM [facility] Potassium 3.7 3.5 - 5.5 mmol/L LAB CHEMISTRY METHOD 09/30/2024 1:04 PM [facility] Chloride 100 96 - 110 mmol/L LAB CHEMISTRY METHOD 09/30/2024 1:04 PM [facility] CO2 31 21 - 32 mmol/L LAB CHEMISTRY METHOD 09/30/2024 1:04 PM [facility] Anion Gap 7 3 - 11 LAB CHEMISTRY METHOD 09/30/2024 1:04 PM [facility] Glucose 228(H) 70 - 100 mg/dL LAB CHEMISTRY METHOD 09/30/2024 1:04 PM [facility] BUN 90(H) 5 - 25 mg/dL LAB CHEMISTRY METHOD 09/30/2024 1:04 PM [facility] Creatinine 2.19(H) 0.50 - 1.10 mg/dL LAB CHEMISTRY METHOD 09/30/2024 1:04 PM [facility] eGFR 23(L) >=60 mL/min/1. 73m2 LAB CHEMISTRY METHOD 09/30/2024 1:04 PM [facility] Comment:Calculation based on the Chronic Kidney Disease Epidemiology Collaboration (CKD-EPI) equation refit without adjustment for race. BUN/Creatinine Ratio 41.1 LAB CHEMISTRY METHOD 09/30/2024 1:04 PM [facility] Calcium 8.9 8.5 - 10.5 mg/dL LAB CHEMISTRY METHOD 09/30/2024 1:04 PM [facility] AST (SGOT) 22 10 - 42 unit/L LAB CHEMISTRY METHOD 09/30/2024 1:04 PM [facility] ALT (SGPT) 28 10 - 60 unit/L LAB CHEMISTRY METHOD 09/30/2024 1:04 PM [facility] Alkaline Phosphatase 47 42 - 121 unit/L LAB CHEMISTRY METHOD 09/30/2024 1:04 PM EST [facility] Total Protein 6.2 6.0 - 8.0 g/dL LAB CHEMISTRY METHOD 09/30/2024 1:04 PM [facility] Albumin 2.7(L) 3.2 - 5.0 g/dL LAB CHEMISTRY METHOD 09/30/2024 1:04 PM [facility] Total Bilirubin 0.6 0.0 - 1.4 mg/dL LAB CHEMISTRY METHOD 09/30/2024 1:04 PM [facility] Blood Venous blood specimen / Unknown Venipuncture / Unknown 09/30/2024 9:57 AM EST 09/30/2024 10:50 AM EST Isaac Stark MD LAB BLOOD ORDERABLES Final Resu lt Performing Organization Address City/[facility]/ZIP Co de Phone Number [facility] [address] [place] [address], [place] [phone] * Hemoglobin A1c (09/23/2024 8:20 AM EST) Hemoglobin A1C 5.3 <6.5 % LAB CHEMISTRY METHOD 09/23/2024 2:17 PM [facility] Mean Bld Glu Estim. 105 mg/dL LAB CHEMISTRY METHOD 09/23/2024 2:17 PM [facility] Blood Venous blood specimen / Unknown Venipuncture / Unknown 09/23/2024 8:20 AM EST 09/23/2024 12:06 PM EST Amina Burciaga MD LAB BLOOD ORDERABLES Final Resul t Performing Organization Address City/[facility]/ZIP Co de Phone Number [facility] [address] [place] [address], [place] [phone] from Last 3 Months or Most Recently Relevant to Health Maintenance Insurance [place] Care Teams Coordinator Of Evaluation Relationship Specialty Start Date End Date Amina Burciaga MD [address] [place] [phone] PCP - General Hospitalist Medicine 09/11/24
[2025-03-29 06:21] LABS: Alanine Aminotransferase 33 U/L (0-31); Albumin Level 3.4 g/dL (3.5-5.0); Alkaline Phosphatase 71 U/L (39-117); Anion Gap 15 (12-20); Aspartate Amino Transferase 31 U/L (5-31); Blood Urea Nitrogen 72 mg/dL (9-16); Calcium 8.9 mg/dL (8.4-10.2); Carbon Dioxide 25 mmol/L (22-29); Chloride 106 mmol/L (96-108); Estimated Glomerular Filt Rate 19; Potassium 3.8 mmol/L (3.3-5.1); Sodium 142 mmol/L (135-145); Total Protein 6.7 g/dL (6.5-8.0)
[2025-03-29 06:41] LABS: Hematocrit 32.5 % (37.0-47.0); Hemoglobin 9.5 g/dl (12.0-16.0); Imm Gran Abs Auto 0.01 X10*3/uL (0.00-0.03); Imm Gran Pct Auto 0.2 % (0.0-0.4); Lymphocytes Absolute Auto 0.6 X10*3/uL (1.2-4.9); Mean Corpuscular HGB Conc 29.2 g/dl (31.0-35.0); Mean Corpuscular Hemoglobin 28.3 pg (27.0-33.0); Mean Corpuscular Volume 96.7 fL (80.0-98.0); NRBC Abs Auto 0.000 X10*3/uL (0.0-0.012); NRBC Pct Auto 0.0 /100WBC (0.0-0.2); Platelet Count 219 X10*3/uL (160-400); Red Blood Count 3.36 X10*6/uL (4.20-5.50); White Blood Count 4.7 X10*3/uL (4.8-10.8)
== END 2025-03-29 06:15 | disposition home or self-care (01) ==
LOC: HO.MMNH2L 06:14
PROVIDERS: Visit Provider Nurse Practitioner Family
DX: I12.9 Hypertensive chronic kidney disease with stage 1 through stage 4 chronic kidney disease, or unspecified chronic kidney disease (principal); N18.4 Chronic kidney disease, stage 4 (severe)
CPT/HCPCS: 36415; 80053; 85025

== ENCOUNTER 2025-04-09 05:44 | Outpatient (REF) | payer MEDICARE, SELFPAY ==
--- OUTSIDE RECORDS SUMMARY | 2018-12-31 05:05 | XMS_ITS | Continuity of Care Document ---
Author Organization [facility] Address [address] [address] Phone Care Team Providers Care Tube Bender Hand Name Role Phone Brodie Hinds DO Unavailable Unavailable Advance Directives Directive Yes / No Effective Date File Name No Information Encounters Encounter Description Practice Location Reason(s) For Visit Diagnoses Date Provider [facility], [address], [id number], [place] tel:[phone] [address] [place] [address] No Information 2018 Guzman Calloway. [address] [place] [address], [id number], [place]. tel:[phone] Family History Family Member Type Diagnosis Age [...]
[2025-04-09 05:46] LABS: MANUAL DIFF FLAG NO
--- OUTSIDE RECORDS SUMMARY | 2025-04-09 05:46 | XMS_ITS | Encounter Summary ---
Author Organization [facility], Address [address] [place] [address] Phone Care Team Providers Care Car Washer Name Role Phone Dandre Chavez MD Primary Care Provider [phone] Encounter Details Date Type Department Care Team (Late st Contact Info) Description 10/30/2022 Documentation Only [facility] [address] [place] [phone] Melissa Delgadillo [address] [place] [phone] Social History Tobacco Use Types Packs/Day Years [...] Visit [facility] [address] [place] [phone] Og Arzate MD [address] [place] [address] [place] [phone] documented as of this encounter Visit Diagnoses Not on filedocumented in this encounter Care Teams Car Washer Relationship Specialty Start Date End Date Dandre Chavez MD [address] [place] [address], [address] [place], [place] PCP - General 07/07/19 documented as of this encounter
--- OUTSIDE RECORDS SUMMARY | 2025-04-09 05:46 | XMS_ITS | Clinical Summary ---
Author Organization [address] Address [address] [place] [address] Phone Care Team Providers Care Investment Director Name Role Phone Amina Burciaga MD Primary Care Provider [phone] Immunizations Name Administration Dates Next Due Pfizer [...] mmol/L LAB CHEMISTRY METHOD 09/30/2024 1:[address] [facility] Potassium 3.7 3.5 - 5.5 mmol/L LAB CHEMISTRY METHOD 09/30/2024 1:[address] [facility] Chloride 100 96 - 110 mmol/L LAB CHEMISTRY METHOD 09/30/2024 1:[address] [facility] CO2 31 21 - 32 mmol/L LAB CHEMISTRY METHOD 09/30/2024 1:[address] [facility] Anion Gap 7 3 - 11 LAB CHEMISTRY METHOD 09/30/2024 1:[address] [facility] Glucose 228(H) 70 - 100 mg/dL LAB CHEMISTRY METHOD 09/30/2024 1:[address] [facility] BUN 90(H) 5 - 25 mg/dL LAB CHEMISTRY METHOD 09/30/2024 1:[address] [facility] Creatinine 2.19(H) 0.50 - 1.10 mg/dL LAB CHEMISTRY METHOD 09/30/2024 1:[address] [facility] eGFR 23(L) >=60 mL/min/1. 73m2 LAB CHEMISTRY METHOD 09/30/2024 1:[address] [facility] Comment:Calculation based on the Chronic Kidney Disease Epidemiology Collaboration (CKD-EPI) equation refit without adjustment for race. BUN/Creatinine Ratio 41.1 LAB CHEMISTRY METHOD 09/30/2024 1:[address] [facility] Calcium 8.9 8.5 - 10.5 mg/dL LAB CHEMISTRY METHOD 09/30/2024 1:[address] [facility] AST (SGOT) 22 10 - 42 unit/L LAB CHEMISTRY METHOD 09/30/2024 1:[address] [facility] ALT (SGPT) 28 10 - 60 unit/L LAB CHEMISTRY METHOD 09/30/2024 1:[address] [facility] Alkaline Phosphatase 47 42 - 121 unit/L LAB CHEMISTRY METHOD 09/30/2024 1:04 PM EST [facility] Total Protein 6.2 6.0 - 8.0 g/dL LAB CHEMISTRY METHOD 09/30/2024 1:[address] [facility] Albumin 2.7(L) 3.2 - 5.0 g/dL LAB CHEMISTRY METHOD 09/30/2024 1:[address] [facility] Total Bilirubin 0.6 0.0 - 1.4 mg/dL LAB CHEMISTRY METHOD 09/30/2024 1:[address] [facility] Blood Venous blood specimen / Unknown Venipuncture / Unknown 09/30/2024 9:57 AM EST 09/30/2024 10:50 AM EST Isaac Stark MD LAB BLOOD ORDERABLES Final Resu lt Performing Organization Address City/[facility]/ZIP Co de Phone Number [facility] [address] [place] [address], [place] [phone] * Hemoglobin A1c (09/23/2024 8:20 AM EST) Hemoglobin A1C 5.3 <6.5 % LAB CHEMISTRY METHOD 09/23/2024 2:[address] [facility] Mean Bld Glu Estim. 105 mg/dL LAB CHEMISTRY METHOD 09/23/2024 2:[address] [facility] Blood Venous blood specimen / Unknown Venipuncture / Unknown 09/23/2024 8:20 AM EST 09/23/2024 12:06 PM EST Amina Burciaga MD LAB BLOOD ORDERABLES Final Resul t Performing Organization Address City/[facility]/ZIP Co de Phone Number [facility] [address] [place] [address], [place] [phone] from Last 3 Months or Most Recently Relevant to Health Maintenance [place] Care Teams Investment Director Relationship Specialty Start Date End Date Amina Burciaga MD [address] [place] [phone] PCP - General Hospitalist Medicine 09/11/24
--- OUTSIDE RECORDS SUMMARY | 2025-04-09 05:46 | XMS_ITS | Clinical Summary ---
Author Organization [facility] Address [address] [place] [address] Care Team Providers Care Health Program Specialist Name Role Phone Dandre Chavez MD Primary Care Provider [phone] Allergies Active Allergy Reactions Criticality Noted Date [...] age to complete this topic Care Teams Health Program Specialist Relationship Specialty Start Date End Date Dandre Chavez MD [address] [place] [address] [place] [phone] PCP - General Internal Medicine 11/06/22
[2025-04-09 06:05] LABS: Hematocrit 30.9 % (37.0-47.0); Hemoglobin 9.4 g/dl (12.0-16.0); Imm Gran Abs Auto 0.02 X10*3/uL (0.00-0.03); Imm Gran Pct Auto 0.5 % (0.0-0.4); Lymphocytes Absolute Auto 0.3 X10*3/uL (1.2-4.9); Mean Corpuscular HGB Conc 30.4 g/dl (31.0-35.0); Mean Corpuscular Hemoglobin 27.4 pg (27.0-33.0); Mean Corpuscular Volume 90.1 fL (80.0-98.0); NRBC Abs Auto 0.000 X10*3/uL (0.0-0.012); NRBC Pct Auto 0.0 /100WBC (0.0-0.2); Platelet Count 166 X10*3/uL (160-400); Red Blood Count 3.43 X10*6/uL (4.20-5.50); White Blood Count 4.0 X10*3/uL (4.8-10.8)
[2025-04-09 06:23] LABS: Alanine Aminotransferase 13 U/L (0-31); Albumin Level 3.5 g/dL (3.5-5.0); Alkaline Phosphatase 57 U/L (39-117); Anion Gap 17 (12-20); Aspartate Amino Transferase 22 U/L (5-31); Blood Urea Nitrogen 96 mg/dL (9-16); Calcium 9.4 mg/dL (8.4-10.2); Carbon Dioxide 32 mmol/L (22-29); Chloride 94 mmol/L (96-108); Estimated Glomerular Filt Rate 18; Potassium 3.3 mmol/L (3.3-5.1); Sodium 140 mmol/L (135-145); Total Protein 6.8 g/dL (6.5-8.0)
[2025-04-09 07:15] LABS: Hemoglobin A1C 104.6231 umol/L; Total Hemoglobin (HGBA1C) 2583.8864 umol/L
== END 2025-04-09 05:45 | disposition home or self-care (01) ==
LOC: HO.MMNH2L 05:44
PROVIDERS: Visit Provider Student in an Organized Health Care Education/Training Program
DX: Z13.1 Encounter for screening for diabetes mellitus (principal); I50.9 Heart failure, unspecified
CPT/HCPCS: 36415; 80053; 83036; 85025

== ENCOUNTER 2025-04-12 06:40 | Outpatient (REF) | payer MEDICARE, SELFPAY ==
--- OUTSIDE RECORDS SUMMARY | 2018-12-31 05:05 | XMS_ITS | Continuity of Care Document ---
Author Organization [facility] Address [address] [address] Phone Care Team Providers Care Environmental Services Floor Tech Name Role Phone Brodie Hinds DO Unavailable Unavailable Advance Directives Directive Yes / No Effective Date File Name No Information Encounters Encounter Description Practice Location Reason(s) For Visit Diagnoses Date Provider [facility], [address], [id number], [place] tel:[phone] [address] [place] [address] No Information 2018 Guzman Calloway. [address] [place] [address], [id number], [place]. tel:[phone] Family History Family Member Type Diagnosis Age [...]
--- OUTSIDE RECORDS SUMMARY | 2025-04-12 06:42 | XMS_ITS | Encounter Summary ---
Author Organization [facility] Address [address] [place] [address] Phone Care Team Providers Care Excelsior Picker Name Role Phone Dandre Chavez MD Primary Care Provider [phone] Miguel Enciso MD Unavailable [phone] Encounter Details Date Type Department Care Team (Latest Contact Info) Description 12/16/2018 Ancillary Orders Non-Invasive Cardiology [address] [place] [address] Cathy Browning NP 101 [facility] 100 [place] [address] Atherosclerosis of [place] coronary artery of [place] heart with angina pectoris Social History Tobacco [...] AM EDT) Max BP Systolic 150 mmHg [facility] Max BP Diastolic 80 mmHg [facility] Max HR 89 BPM [facility] Resting HR 78 BPM [facility] Resting BP Systolic 150 mmHg [facility] Resting BP Diastolic 80 mmHg [facility] Peak METS 1.0 METS [facility] Peak HR 83 BPM [facility] Anatomical Region Laterality Modality Heart Other [...] this encounter Visit Diagnoses Diagnosis Atherosclerosis of [place] coronary artery of [place] heart with angina pectoris Atherosclerosis of [place] coronary artery of [place] heart with angina pectoris documented in this encounter Care Teams Excelsior Picker Relationship Specialty Start Date End Date Dandre Chavez MD [address] [place] [address] PCP - General 09/05/17 Miguel Enciso MD [address] [place] [address] [address] [place] [address] [email or web address] Cardiology 05/28/24 documented as of this encounter Additional Source Comments The information contained in this document represents components of the legal health record. It is not the complete legal health record.[facility]
--- OUTSIDE RECORDS SUMMARY | 2025-04-12 06:42 | XMS_ITS | Clinical Summary ---
Author Organization [facility], Address [address] [place] [address] Phone Care Team Providers Care Ice Cream Server Name Role Phone Dandre Chavez MD Primary Care Provider [phone] Allergies Active Allergy Reactions Criticality Noted Date [...] Last Assessment & Plan: History of inferior [place] in 2013 with a stent to her [...] Essential hypertension 07/08 Hyperlipidemia 12/13/2020 Hypothyroidism 12/13/2020 Immunizations Immunization Administration Dates Next Due Hepatitis [...] Visit [facility], [address] [place] [address] Og Arzate MD [address] [place] [phone] Health Maintenance Due Date Last Done Comments Pneumococcal Vaccine: 50+ Years (2 of 2 - PCV) 05/27/2015 05/27/2014 Diabetes: Ophthalmology Exam 11/23/2019 Diabetes: Pedal Pulse Checked 11/23/2019 Diabetes: Sensory Foot Exam 11/23/2019 Diabetes: Visual Foot Exam 11/23/2019 Diabetes: Hemoglobin A1C 12/22/2024 025, 09/07/2024, 10/18/2022, Additional history exists Influenza Vaccine (#1) 2025 10/06/2019 Pneumococcal Vaccine: Peds (0 to 5 Years) and At-Risk Patients (6 to 49 Years) Discontinued 05/27/2014 Hepatitis B Vaccine Aged Out 07/30/2023, 3 No longer eligible based on patient's age to complete this topic Procedures Procedure Name Priority Date/Time Associated Diagnosis Comments HEMOGLOBIN A1C Routine 10/18/2022 2:34 PM EST Stage 3a chronic kidney disease (HCC) from Last 3 Months or Most Recently Relevant to Health Maintenance Results * (ABNORMAL) Hemoglobin A1c (10/18/2022 2:34 PM EST) Hemoglobin A1C 6.9(H) (4.0-5.6) % [facility] Comment: MONITORING: In known diabetic patients, hemoglobin A1c targets should be discussed with health care provider. DIAGNOSTIC USE: The [place] Diabetes Association (ADA) and the World Health [...] Supplement 1 Testing performed or reported by [facility], a Service of [facility], [address] [place] [address] Louis Fry MD, Clinician Oncology [facility]# [id number] Blood specimen (specimen) Venous blood / Unknown 10/18/2022 2:34 PM EST 10/18/2022 2:35 PM EST us Faina LUCIANO LAB BLOOD ORDERABLES Final Res ult [facility] from Last 3 Months or Most Recently Relevant to Health Maintenance [place] [id number] [facility] [place] [id number] Care Teams Ice Cream Server Relationship Specialty Start Date End Date Dandre Chavez MD [address] [place] [address], [address] [place] PCP - General 07/07/19
--- OUTSIDE RECORDS SUMMARY | 2025-04-12 06:42 | XMS_ITS | Clinical Summary ---
Author Organization [address] Address [address] [place] [address] Phone Care Team Providers Care International Trade Compliance Manager Name Role Phone Amina Burciaga MD Primary Care Provider [phone] Immunizations Name Administration Dates Next Due Pfizer [...] mmol/L LAB CHEMISTRY METHOD 09/30/2024 1:04 PM [facility] Potassium 3.7 3.5 - 5.5 mmol/L LAB CHEMISTRY METHOD 09/30/2024 1:04 PM [facility] Chloride 100 96 - 110 mmol/L LAB CHEMISTRY METHOD 09/30/2024 1:04 PM [facility] CO2 31 21 - 32 mmol/L LAB CHEMISTRY METHOD 09/30/2024 1:04 PM [facility] Anion Gap 7 3 - 11 LAB CHEMISTRY METHOD 09/30/2024 1:04 PM [facility] Glucose 228(H) 70 - 100 mg/dL LAB CHEMISTRY METHOD 09/30/2024 1:04 PM [facility] BUN 90(H) 5 - 25 mg/dL LAB CHEMISTRY METHOD 09/30/2024 1:04 PM [facility] Creatinine 2.19(H) 0.50 - 1.10 mg/dL LAB CHEMISTRY METHOD 09/30/2024 1:04 PM [facility] eGFR 23(L) >=60 mL/min/1. 73m2 LAB CHEMISTRY METHOD 09/30/2024 1:04 PM [facility] Comment:Calculation based on the Chronic Kidney Disease Epidemiology Collaboration (CKD-EPI) equation refit without adjustment for race. BUN/Creatinine Ratio 41.1 LAB CHEMISTRY METHOD 09/30/2024 1:04 PM [facility] Calcium 8.9 8.5 - 10.5 mg/dL LAB CHEMISTRY METHOD 09/30/2024 1:04 PM [facility] AST (SGOT) 22 10 - 42 unit/L LAB CHEMISTRY METHOD 09/30/2024 1:04 PM [facility] ALT (SGPT) 28 10 - 60 unit/L LAB CHEMISTRY METHOD 09/30/2024 1:04 PM [facility] Alkaline Phosphatase 47 42 - 121 unit/L LAB CHEMISTRY METHOD 09/30/2024 1:04 PM EST [facility] Total Protein 6.2 6.0 - 8.0 g/dL LAB CHEMISTRY METHOD 09/30/2024 1:04 PM [facility] Albumin 2.7(L) 3.2 - 5.0 g/dL LAB CHEMISTRY METHOD 09/30/2024 1:04 PM [facility] Total Bilirubin 0.6 0.0 - 1.4 mg/dL LAB CHEMISTRY METHOD 09/30/2024 1:04 PM [facility] Blood Venous blood specimen / Unknown Venipuncture / Unknown 09/30/2024 9:57 AM EST 09/30/2024 10:50 AM EST Isaac Stark MD LAB BLOOD ORDERABLES Final Resu lt Performing Organization Address City/[facility]/ZIP Co de Phone Number [facility] [address] [place] [address], [place] [phone] * Hemoglobin A1c (09/23/2024 8:20 AM EST) Hemoglobin A1C 5.3 <6.5 % LAB CHEMISTRY METHOD 09/23/2024 2:17 PM [facility] Mean Bld Glu Estim. 105 mg/dL LAB CHEMISTRY METHOD 09/23/2024 2:17 PM [facility] Blood Venous blood specimen / Unknown Venipuncture / Unknown 09/23/2024 8:20 AM EST 09/23/2024 12:06 PM EST Amina Burciaga MD LAB BLOOD ORDERABLES Final Resul t Performing Organization Address City/[facility]/ZIP Co de Phone Number [facility] [address] [place] [address], [place] [phone] from Last 3 Months or Most Recently Relevant to Health Maintenance Insurance [place] Care Teams International Trade Compliance Manager Relationship Specialty Start Date End Date Amina Burciaga MD [address] [place] [phone] PCP - General Hospitalist Medicine 09/11/24
--- OUTSIDE RECORDS SUMMARY | 2025-04-12 06:42 | XMS_ITS | Clinical Summary ---
Author Organization [facility] Address [address] [place] [address] Care Team Providers Care Material Movers Name Role Phone Dandre Chavez MD Primary Care Provider [phone] Allergies Active Allergy Reactions Criticality Noted Date [...] age to complete this topic Care Teams Material Movers Relationship Specialty Start Date End Date Dandre Chavez MD [address] [place] [address] [place] [phone] PCP - General Internal Medicine 11/06/22
[2025-04-12 07:05] LABS: Hematocrit 29.3 % (37.0-47.0); Hemoglobin 8.6 g/dl (12.0-16.0); Imm Gran Abs Auto 0.01 X10*3/uL (0.00-0.03); Imm Gran Pct Auto 0.2 % (0.0-0.4); Lymphocytes Absolute Auto 0.5 X10*3/uL (1.2-4.9); MANUAL DIFF FLAG SCAN; Mean Corpuscular HGB Conc 29.4 g/dl (31.0-35.0); Mean Corpuscular Hemoglobin 27.0 pg (27.0-33.0); Mean Corpuscular Volume 92.1 fL (80.0-98.0); NRBC Abs Auto 0.000 X10*3/uL (0.0-0.012); NRBC Pct Auto 0.0 /100WBC (0.0-0.2); Platelet Count 167 X10*3/uL (160-400); Red Blood Count 3.18 X10*6/uL (4.20-5.50); SCAN SMEAR FLAG 1; White Blood Count 4.5 X10*3/uL (4.8-10.8)
[2025-04-12 07:40] LABS: Anion Gap 17 (12-20); Blood Urea Nitrogen 107 mg/dL (9-16); Calcium 8.9 mg/dL (8.4-10.2); Carbon Dioxide 33 mmol/L (22-29); Chloride 93 mmol/L (96-108); Estimated Glomerular Filt Rate 16; Sodium 140 mmol/L (135-145)
[2025-04-12 08:27] LABS: Potassium 2.5 mmol/L (3.3-5.1)
== END 2025-04-12 06:41 | disposition home or self-care (01) ==
LOC: HO.MMNH2L 06:40
PROVIDERS: Visit Provider Student in an Organized Health Care Education/Training Program
DX: I50.9 Heart failure, unspecified (principal)
CPT/HCPCS: 36415; 80048; 85025

== ENCOUNTER 2025-04-14 05:24 | Outpatient (REF) | payer MEDICARE, SELFPAY ==
[2025-04-14 06:04] LABS: Anion Gap 18 (12-20); Blood Urea Nitrogen 104 mg/dL (9-16); Calcium 8.8 mg/dL (8.4-10.2); Carbon Dioxide 31 mmol/L (22-29); Chloride 95 mmol/L (96-108); Estimated Glomerular Filt Rate 16; Potassium 3.2 mmol/L (3.3-5.1); Sodium 141 mmol/L (135-145)
== END 2025-04-14 05:25 | disposition home or self-care (01) ==
LOC: HO.MMNH2L 05:24
DX: I50.33 Acute on chronic diastolic (congestive) heart failure (principal)
CPT/HCPCS: 36415; 80048

== ENCOUNTER 2025-04-19 06:03 | Outpatient (REF) | payer MEDICARE, SELFPAY ==
--- OUTSIDE RECORDS SUMMARY | 2018-12-31 05:05 | XMS_ITS | Continuity of Care Document ---
Author Organization Replaced by [facility] Address [address] [address] Phone Care Team Providers Care City Supervisor Name Role Phone Brodie Hinds DO Unavailable Unavailable Advance Directives Directive Yes / No Effective Date File Name No Information Encounters Encounter Description Practice Location Reason(s) For Visit Diagnoses Date Provider Replaced by [facility], [address], [id number], [place] tel:[phone] [address] [place] [address] No Information 2018 Guzman Calloway. [address] [place] [address], [id number], [place]. tel:[phone] Family History Family Member Type Diagnosis Age [...]
[2025-04-19 06:03] LABS: MANUAL DIFF FLAG NO
--- OUTSIDE RECORDS SUMMARY | 2025-04-19 06:05 | XMS_ITS | Clinical Summary ---
Author Organization [facility] Address [address] [place] [address] Care Team Providers Care Weather Forcaster Name Role Phone Dandre Chavez MD Primary Care Provider [phone] Allergies Active Allergy Reactions Criticality Noted Date [...] age to complete this topic Care Teams Weather Forcaster Relationship Specialty Start Date End Date Dandre Chavez MD [address] [place] [address] [place] [phone] PCP - General Internal Medicine 11/06/22
--- OUTSIDE RECORDS SUMMARY | 2025-04-19 06:05 | XMS_ITS | Clinical Summary ---
Author Organization [address] Address [address] [place] [address] Phone Care Team Providers Care Gas Cutting Machine Operator Name Role Phone Amina Burciaga MD Primary [...] mmol/L LAB CHEMISTRY METHOD 09/30/2024 1:04 PM [facility] Potassium 3.7 3.5 - 5.5 mmol/L LAB CHEMISTRY METHOD 09/30/2024 1:04 PM [facility] Chloride 100 96 - 110 mmol/L LAB CHEMISTRY METHOD 09/30/2024 1:04 PM [facility] CO2 31 21 - 32 mmol/L LAB CHEMISTRY METHOD 09/30/2024 1:04 PM [facility] Anion Gap 7 3 - 11 LAB CHEMISTRY METHOD 09/30/2024 1:04 PM [facility] Glucose 228(H) 70 - 100 mg/dL LAB CHEMISTRY METHOD 09/30/2024 1:04 PM [facility] BUN 90(H) 5 - 25 mg/dL LAB CHEMISTRY METHOD 09/30/2024 1:04 PM [facility] Creatinine 2.19(H) 0.50 - 1.10 mg/dL LAB CHEMISTRY METHOD 09/30/2024 1:04 PM [facility] eGFR 23(L) >=60 mL/min/1. 73m2 LAB CHEMISTRY METHOD 09/30/2024 1:04 PM [facility] Comment:Calculation based on the Chronic Kidney Disease Epidemiology Collaboration (CKD-EPI) equation refit without adjustment for race. BUN/Creatinine Ratio 41.1 LAB CHEMISTRY METHOD 09/30/2024 1:04 PM [facility] Calcium 8.9 8.5 - 10.5 mg/dL LAB CHEMISTRY METHOD 09/30/2024 1:04 PM [facility] AST (SGOT) 22 10 - 42 unit/L LAB CHEMISTRY METHOD 09/30/2024 1:04 PM [facility] ALT (SGPT) 28 10 - 60 unit/L LAB CHEMISTRY METHOD 09/30/2024 1:04 PM [facility] Alkaline Phosphatase 47 42 - 121 unit/L LAB CHEMISTRY METHOD 09/30/2024 1:04 PM EST [facility] Total Protein 6.2 6.0 - 8.0 g/dL LAB CHEMISTRY METHOD 09/30/2024 1:04 PM [facility] Albumin 2.7(L) 3.2 - 5.0 g/dL LAB CHEMISTRY METHOD 09/30/2024 1:04 PM [facility] Total Bilirubin 0.6 0.0 - 1.4 mg/dL LAB CHEMISTRY METHOD 09/30/2024 1:04 PM [facility] Blood Venous blood specimen / Unknown Venipuncture / Unknown 09/30/2024 9:57 AM EST 09/30/2024 10:50 AM EST Isaac Stark MD LAB BLOOD ORDERABLES Final Resu lt Performing Organization Address City/[facility]/ZIP Co de Phone Number [facility] [address] [place] [address], [place] [phone] * Hemoglobin A1c (09/23/2024 8:20 AM EST) Hemoglobin A1C 5.3 <6.5 % LAB CHEMISTRY METHOD 09/23/2024 2:17 PM [facility] Mean Bld Glu Estim. 105 mg/dL LAB CHEMISTRY METHOD 09/23/2024 2:17 PM [facility] Blood Venous blood specimen / Unknown Venipuncture / Unknown 09/23/2024 8:20 AM EST 09/23/2024 12:06 PM EST Amina Burciaga MD LAB BLOOD ORDERABLES Final Resul t Performing Organization Address City/[facility]/ZIP Co de Phone Number [facility] [address] [place] [address], [place] [phone] from Last 3 Months or Most Recently Relevant to Health Maintenance Insurance [place] Care Teams Gas Cutting Machine Operator Relationship Specialty Start Date End Date Amina Burciaga MD [address] [place] [phone] PCP - General Hospitalist Medicine 09/11/24
--- OUTSIDE RECORDS SUMMARY | 2025-04-19 06:05 | XMS_ITS | Clinical Summary ---
Author Organization [facility], Address [address] [place] [address] Phone Care Team Providers Care Cardiovascular Technician Name Role Phone Dandre Chavez MD Primary Care Provider [phone] Allergies Active Allergy Reactions Criticality Noted Date [...] Last Assessment & Plan: History of inferior [place] in 2013 with a stent to her [...] 10/05/2019 2:02 PM EST Plan of Treatment Health Maintenance Due Date [...] PM EST) Hemoglobin A1C 6.9(H) (4.0-5.6) % [facility] Comment: MONITORING: In known diabetic patients, hemoglobin A1c targets should be discussed with health care provider. DIAGNOSTIC USE: The [place] Diabetes Association (ADA) and the World Health [...] Supplement 1 Testing performed or reported by [facility], a Service of [address] [address] Louis Fry MD, Inspector Repairer [facility]# [id number] Blood specimen (specimen) Venous blood / Unknown 10/18/2022 2:34 PM EST 10/18/2022 2:35 PM EST us Faina LUCIANO LAB BLOOD ORDERABLES Final Res ult [facility] from Last 3 Months or Most Recently Relevant to Health Maintenance Insurance Medicare [facility] [place] [id number] Care Teams Cardiovascular Technician Relationship Specialty Start Date End Date Dandre Chavez MD [address] [place] [address], [address] [place] PCP - General 07/07/19
--- OUTSIDE RECORDS SUMMARY | 2025-04-19 06:05 | XMS_ITS | Encounter Summary ---
Author Organization [facility] Address [address] [place] [address] Phone Care Team Providers Care Restaurant District Manager Name Role Phone Dandre Chavez MD Primary Care Provider [phone] Miguel Enciso MD Unavailable [phone] Encounter Details Date Type Department Care Team (Latest Contact Info) Description 12/16/2018 Ancillary Orders Non-Invasive Cardiology [address] [place] [address] Cathy Browning NP 101 [facility] 100 [place] [address] Atherosclerosis of [place] coronary artery of [place] heart with angina pectoris Social History Tobacco [...] [facility] Max BP Diastolic 80 mmHg [facility] Max HR 89 BPM [facility] Resting HR 78 BPM [facility] Resting BP Systolic 150 mmHg [facility] Resting BP Diastolic 80 mmHg [facility] Peak METS 1.0 METS [facility] Peak HR 83 BPM [facility] Anatomical Region Laterality Modality Heart Other [...] this encounter Visit Diagnoses Diagnosis 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 It is not the complete legal health record.[facility]
[2025-04-19 06:44] LABS: Hematocrit 30.5 % (37.0-47.0); Hemoglobin 8.9 g/dl (12.0-16.0); Imm Gran Abs Auto 0.02 X10*3/uL (0.00-0.03); Imm Gran Pct Auto 0.4 % (0.0-0.4); Lymphocytes Absolute Auto 0.4 X10*3/uL (1.2-4.9); Mean Corpuscular HGB Conc 29.2 g/dl (31.0-35.0); Mean Corpuscular Hemoglobin 26.9 pg (27.0-33.0); Mean Corpuscular Volume 92.1 fL (80.0-98.0); NRBC Abs Auto 0.000 X10*3/uL (0.0-0.012); NRBC Pct Auto 0.0 /100WBC (0.0-0.2); Platelet Count 236 X10*3/uL (160-400); Red Blood Count 3.31 X10*6/uL (4.20-5.50); White Blood Count 5.3 X10*3/uL (4.8-10.8)
[2025-04-19 07:22] LABS: Anion Gap 18 (12-20); Blood Urea Nitrogen 109 mg/dL (9-16); Calcium 9.0 mg/dL (8.4-10.2); Carbon Dioxide 28 mmol/L (22-29); Chloride 98 mmol/L (96-108); Estimated Glomerular Filt Rate 17; Potassium 3.4 mmol/L (3.3-5.1); Sodium 141 mmol/L (135-145)
== END 2025-04-19 06:04 | disposition home or self-care (01) ==
LOC: HO.MMNH2L 06:03
PROVIDERS: Visit Provider Student in an Organized Health Care Education/Training Program
DX: I50.9 Heart failure, unspecified (principal)
CPT/HCPCS: 36415; 80048; 85025

== ENCOUNTER 2025-04-26 06:35 | Outpatient (REF) | payer MEDICARE, SELFPAY ==
--- OUTSIDE RECORDS SUMMARY | 2018-12-31 05:05 | XMS_ITS | Continuity of Care Document ---
Author Organization [facility] Address [address] [address] Phone Care Team Providers Care Bi Architect Name Role Phone Brodie Hinds DO Unavailable Unavailable Advance Directives Directive Yes / No Effective Date File Name No Information Encounters Encounter Description Practice Location Reason(s) For Visit Diagnoses Date Provider [facility], [address], [id number], [place] tel:[phone] [address] [place] [address] No Information 2018 Guzman Calloway. [address] [place] [address], [id number], [place]. tel:[phone] Family History Family Member Type Diagnosis Age [...]
[2025-04-26 05:58] LABS: MANUAL DIFF FLAG NO
--- OUTSIDE RECORDS SUMMARY | 2025-04-26 06:39 | XMS_ITS | Clinical Summary ---
Author Organization [facility] Address [address] [place] [address] Care Team Providers Care Pari Mutuel Ticket Seller Name Role Phone Dandre Chavez MD Primary Care Provider [phone] Allergies Active Allergy Reactions Criticality Noted Date [...] age to complete this topic Care Teams Pari Mutuel Ticket Seller Relationship Specialty Start Date End Date aDndre Chavez MD [address] [place] [address] [place] [phone] PCP - General Internal Medicine 11/06/22
--- OUTSIDE RECORDS SUMMARY | 2025-04-26 06:39 | XMS_ITS | Encounter Summary ---
Author Organization [facility] Address [address] [place] [address] Phone Care Team Providers Care Patrol Deputy Sheriff Name Role Phone Dandre Chavez MD Primary Care Provider [phone] Miguel Enciso MD Unavailable [phone] Encounter Details Date Type Department Care Team (Latest Contact Info) Description 12/16/2018 Ancillary Orders Non-Invasive Cardiology [address] [place] [address] Cathy Browning NP [address] [place] [address] Atherosclerosis of [place] coronary artery of [place] heart with angina pectoris Social History Tobacco [...] AM EDT) Max BP Systolic 150 mmHg [facility] Max BP Diastolic 80 mmHg [facility] Max HR 89 BPM [facility] Resting HR 78 BPM [facility] Resting BP Systolic 150 mmHg [facility] Resting BP Diastolic 80 mmHg [facility] Peak METS 1.0 METS [facility] Peak HR 83 BPM [facility] Anatomical Region Laterality Modality Heart Other [...] this encounter Visit Diagnoses Diagnosis 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 It is not the complete legal health record.[facility]
--- OUTSIDE RECORDS SUMMARY | 2025-04-26 06:39 | XMS_ITS | Clinical Summary ---
Author Organization [facility], Address [address] [place] [address] Phone Care Team Providers Care Investigation Officer Name Role Phone Dandre Chavez MD Primary Care Provider [phone] Allergies Active Allergy Reactions Criticality Noted Date [...] Last Assessment & Plan: History of inferior CA in 2013 with a stent to her [...] PM EST) Hemoglobin A1C 6.9(H) (4.0-5.6) % [facility] Comment: MONITORING: In known diabetic patients, hemoglobin A1c targets should be discussed with health care provider. DIAGNOSTIC USE: The [place] Diabetes Association (ADA) and the World Health [...] Supplement 1 Testing performed or reported by [facility], a Service of [address] [address] Louis Fry MD, Cookie Mixer Helper [facility]# [id number] Blood specimen (specimen) Venous blood / Unknown 10/18/2022 2:34 PM EST 10/18/2022 2:35 PM EST us Faina LUCIANO LAB BLOOD ORDERABLES Final Res ult [facility] from Last 3 Months or Most Recently Relevant to Health Maintenance Insurance Medicare [facility] [place] [id number] Care Teams Investigation Officer Relationship Specialty Start Date End Date Dandre Chavez MD [address] [place] [address], [address] [place] PCP - General 07/07/19
--- OUTSIDE RECORDS SUMMARY | 2025-04-26 06:39 | XMS_ITS | Clinical Summary ---
Author Organization [address] Address [address] [place] [address] Phone Care Team Providers Care Dry Starch Operator Name Role Phone Amina Burciaga MD Primary Care Provider [phone] Immunizations Name Administration Dates Next Due Pfizer [...] mmol/L LAB CHEMISTRY METHOD 09/30/2024 1:04 PM [facility] Potassium 3.7 3.5 - 5.5 mmol/L LAB CHEMISTRY METHOD 09/30/2024 1:04 PM [facility] Chloride 100 96 - 110 mmol/L LAB CHEMISTRY METHOD 09/30/2024 1:04 PM [facility] CO2 31 21 - 32 mmol/L LAB CHEMISTRY METHOD 09/30/2024 1:04 PM [facility] Anion Gap 7 3 - 11 LAB CHEMISTRY METHOD 09/30/2024 1:04 PM [facility] Glucose 228(H) 70 - 100 mg/dL LAB CHEMISTRY METHOD 09/30/2024 1:04 PM [facility] BUN 90(H) 5 - 25 mg/dL LAB CHEMISTRY METHOD 09/30/2024 1:04 PM [facility] Creatinine 2.19(H) 0.50 - 1.10 mg/dL LAB CHEMISTRY METHOD 09/30/2024 1:04 PM [facility] eGFR 23(L) >=60 mL/min/1. 73m2 LAB CHEMISTRY METHOD 09/30/2024 1:04 PM [facility] Comment:Calculation based on the Chronic Kidney Disease Epidemiology Collaboration (CKD-EPI) equation refit without adjustment for race. BUN/Creatinine Ratio 41.1 LAB CHEMISTRY METHOD 09/30/2024 1:04 PM [facility] Calcium 8.9 8.5 - 10.5 mg/dL LAB CHEMISTRY METHOD 09/30/2024 1:04 PM [facility] AST (SGOT) 22 10 - 42 unit/L LAB CHEMISTRY METHOD 09/30/2024 1:04 PM [facility] ALT (SGPT) 28 10 - 60 unit/L LAB CHEMISTRY METHOD 09/30/2024 1:04 PM [facility] Alkaline Phosphatase 47 42 - 121 unit/L LAB CHEMISTRY METHOD 09/30/2024 1:04 PM EST [facility] Total Protein 6.2 6.0 - 8.0 g/dL LAB CHEMISTRY METHOD 09/30/2024 1:04 PM [facility] Albumin 2.7(L) 3.2 - 5.0 g/dL LAB CHEMISTRY METHOD 09/30/2024 1:04 PM [facility] Total Bilirubin 0.6 0.0 - 1.4 mg/dL LAB CHEMISTRY METHOD 09/30/2024 1:04 PM [facility] Blood Venous blood specimen / Unknown Venipuncture / Unknown 09/30/2024 9:57 AM EST 09/30/2024 10:50 AM EST Isaac Stark MD LAB BLOOD ORDERABLES Final Resu lt Performing Organization Address City/[facility]/ZIP Co de Phone Number [facility] [address] [place] [address], [place] [phone] * Hemoglobin A1c (09/23/2024 8:20 AM EST) Hemoglobin A1C 5.3 <6.5 % LAB CHEMISTRY METHOD 09/23/2024 2:17 PM [facility] Mean Bld Glu Estim. 105 mg/dL LAB CHEMISTRY METHOD 09/23/2024 2:17 PM [facility] Blood Venous blood specimen / Unknown Venipuncture / Unknown 09/23/2024 8:20 AM EST 09/23/2024 12:06 PM EST Amina Burciaga MD LAB BLOOD ORDERABLES Final Resul t Performing Organization Address City/[facility]/ZIP Co de Phone Number [facility] [address] [place] [address], [place] [phone] from Last 3 Months or Most Recently Relevant to Health Maintenance Insurance [place] Care Teams Dry Starch Operator Relationship Specialty Start Date End Date Amina Burciaga MD [address] [place] [phone] PCP - General Hospitalist Medicine 09/11/24
[2025-04-26 06:41] LABS: Anion Gap 19 (12-20); Blood Urea Nitrogen 102 mg/dL (9-16); Calcium 10.0 mg/dL (8.4-10.2); Carbon Dioxide 28 mmol/L (22-29); Chloride 99 mmol/L (96-108); Estimated Glomerular Filt Rate 16; Potassium 3.9 mmol/L (3.3-5.1); Sodium 142 mmol/L (135-145)
[2025-04-26 06:54] LABS: Hematocrit 30.9 % (37.0-47.0); Hemoglobin 8.8 g/dl (12.0-16.0); Imm Gran Abs Auto 0.02 X10*3/uL (0.00-0.03); Imm Gran Pct Auto 0.4 % (0.0-0.4); Lymphocytes Absolute Auto 0.5 X10*3/uL (1.2-4.9); Mean Corpuscular HGB Conc 28.5 g/dl (31.0-35.0); Mean Corpuscular Hemoglobin 26.3 pg (27.0-33.0); Mean Corpuscular Volume 92.5 fL (80.0-98.0); NRBC Abs Auto 0.000 X10*3/uL (0.0-0.012); NRBC Pct Auto 0.0 /100WBC (0.0-0.2); Platelet Count 192 X10*3/uL (160-400); Red Blood Count 3.34 X10*6/uL (4.20-5.50); White Blood Count 4.9 X10*3/uL (4.8-10.8)
== END 2025-04-26 06:36 | disposition home or self-care (01) ==
LOC: HO.MMNH2L 06:35
PROVIDERS: Visit Provider Student in an Organized Health Care Education/Training Program
DX: I50.9 Heart failure, unspecified (principal)
CPT/HCPCS: 36415; 80048; 85025

== ENCOUNTER 2025-05-04 06:15 | Outpatient (REF) | payer MEDICARE, SELFPAY ==
--- OUTSIDE RECORDS SUMMARY | 2018-12-31 05:05 | XMS_ITS | Continuity of Care Document ---
Author Organization [facility] Address [address] [address] Phone Care Team Providers Care Drug Safety Physician Name Role Phone Brodie Hinds DO Unavailable Unavailable Advance Directives Directive Yes / No Effective Date File Name No Information Encounters Encounter Description Practice Location Reason(s) For Visit Diagnoses Date Provider [facility], [address], [id number], [place] tel:[phone] [address] [place] [address] No Information 2018 Guzman Calloway. [address] [place] [address], [id number], [place]. tel:[phone] Family History Family Member Type Diagnosis Age [...]
[2025-05-04 06:09] LABS: MANUAL DIFF FLAG NO
--- OUTSIDE RECORDS SUMMARY | 2025-05-04 06:20 | XMS_ITS | Encounter Summary ---
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 Social History Tobacco [...] AM EDT) Max BP Systolic 150 mmHg [facility] Max BP Diastolic 80 mmHg [facility] Max HR 89 BPM [facility] Resting HR 78 BPM [facility] Resting BP Systolic 150 mmHg [facility] Resting BP Diastolic 80 mmHg [facility] Peak METS 1.0 METS [facility] Peak HR 83 BPM [facility] Anatomical Region Laterality Modality Heart Other [...] this encounter Visit Diagnoses Diagnosis 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 It is not the complete legal health record.[facility]
--- OUTSIDE RECORDS SUMMARY | 2025-05-04 06:20 | XMS_ITS | Clinical Summary ---
Author Organization [address] Address [address] [place] [address] Phone Care Team Providers Care Rock Lather Name Role Phone Amina Burciaga MD Primary Care Provider [phone] Immunizations Name Administration Dates Next Due Pfizer [...] - 19+ 3-dose series) 11/12/2023 07/30/2023, 05/14/2023 Diabetes: Annual Urine Albumin-Creatinine Ratio (uACR) 07/13/2024 Depression Screening 09/02/2024 Diabetes: Blood Sugar Control Test (HGBA1C) 03/23/2025 09/23/2024, 09/07/2024, 07/10/2024, Additional history exists COVID-19 Vaccine (4 - 2025-26 season) 2025 09/25/2021, 11/29/2020, 11/08/2020 Influenza Vaccine (#1) 2025 4, 08/02/2022, 05/19/2020, [...] LAB CHEMISTRY METHOD 09/30/2024 1:04 PM EST [facility] Total Protein 6.2 6.0 [...] ORDERABLES Final Resu lt Performing Organization Address City/[facility]/ZIP Co de Phone Number [facility] [address] [place] [address], [place] [phone] * Hemoglobin A1c (09/23/2024 8:20 AM EST) [...] ORDERABLES Final Resul t Performing Organization Address City/[facility]/ZIP Co de Phone Number [facility] [address] [place] [address], [place] [phone] from Last 3 Months or Most Recently Relevant to Health Maintenance Insurance [place]ICA[place] Care Teams Rock Lather Relationship Specialty Start Date End Date Amina Burciaga MD [address] [place] [phone] PCP - General Hospitalist Medicine 09/11/24
--- OUTSIDE RECORDS SUMMARY | 2025-05-04 06:20 | XMS_ITS | Clinical Summary ---
Author Organization [facility] Address [address] [place] [address] Care Team Providers Care Certified Residential Medication Aide Name Role Phone Dandre Chavez MD Primary Care Provider [phone] Allergies Active Allergy Reactions Criticality Noted Date [...] 75+ series) 2022 COVID-19 Vaccine (3 - 2024-2 6 season) 2025 11/29/2020, 11/08/2020 Influenza Vaccine (#1) 2025 0, 10/06/2019, 09/12/2018 Hepatitis B Vaccines Aged Out No long er eligible based on patient's age to complete this topic RSV Ped < 20 months Aged Out No longe r eligible based on patient's age to complete this topic Care Teams Certified Residential Medication Aide Relationship Specialty Start Date End Date Dandre Chavez MD [address] [place] [address] [place] [phone] PCP - General Internal Medicine 11/06/22
--- OUTSIDE RECORDS SUMMARY | 2025-05-04 06:20 | XMS_ITS | Encounter Summary ---
Author Organization [facility], Address [address] [place] [address] Phone Care Team Providers Care Line Repairer Name Role Phone Dandre Chavez MD Primary Care Provider [phone] Encounter Details Date Type Department Care Team (Late st Contact Info) Description 08/02/2022 Documentation Only [facility], [address] [place] [address] Faina Villegas PA Social History Tobacco Use Types Packs/Day Years Used Date Smoking Tobacco: Never Comments Unknown Sex and Gender Information Value Date Recorded Sex Assigned at Not on file Legal Sex Female 4:32 PM EST Gender Identity Not on file Sexual Orientation Not on file documented as of this encounter Plan of Treatment Not on file documented as of this encounter Visit Diagnoses Not on filedocumented in this encounter Care Teams Line Repairer Relationship Specialty Start Date End Date Dandre Chavez MD [address] [place] [address], [address] [place], [place] PCP - General 07/07/19 documented as of this encounter
--- OUTSIDE RECORDS SUMMARY | 2025-05-04 06:20 | XMS_ITS | Encounter Summary ---
Author Organization [facility] Address [address] [place] [address] Care Team Providers Care School Social Worker Name Role Phone Amina Burciaga MD Primary Care Provider [phone] Encounter Details Date Type Department Care Team (Late st Contact Info) Description 08/03/2024 Lab Requisition [facility] - Main Lab 299 [facility] [place] [address] Hortencia Mcclellan MD [address] [id number] Type 2 diabetes mellitus without complications (CMS/HCC V24, CMS/HCC V28); Heart failure, unspecified (CMS/HCC V24, CMS/HCC V28) Social History Tobacco Use Types Packs/Day Years Used Date Smoking Tobacco: Never Assessed Comments Unknown Sex and Gender Information Value Date Recorded Sex Assigned at Not on file Legal Sex Female 8:20 PM EST Gender Identity Not on file Sexual Orientation Not on file documented as of this encounter Plan of Treatment Not on file documented as of this encounter Procedures Procedure Name Priority Date/Time Associated Diagnosis Comments COMPLETE BLOOD COUNT Routine 08/04/2024 6:38 AM EST Type 2 diabetes mellitus without complications (CMS/HCC) Heart failure, unspecified (CMS/HCC) BASIC METABOLIC PANEL Routine 08/04/2024 6:38 AM EST Type 2 diabetes mellitus without complications (CMS/HCC) Heart failure, unspecified (CMS/HCC) documented in this encounter Results * (ABNORMAL) Basic metabolic panel (08/04/2024 6:38 AM EST) Sodium 143 133 - 145 mmol/L LAB CHEMISTRY METHOD 08/04/2024 9:42 AM [facility] Potassium 3.6 3.5 - 5.5 mmol/L LAB CHEMISTRY METHOD 08/04/2024 9:42 AM [facility] Chloride 106 96 - 110 mmol/L LAB CHEMISTRY METHOD 08/04/2024 9:42 AM [facility] CO2 29 21 - 32 mmol/L LAB CHEMISTRY METHOD 08/04/2024 9:42 AM [facility] Anion Gap 8 3 - 11 LAB CHEMISTRY METHOD 08/04/2024 9:42 AM [facility] Glucose 64(L) 70 - 100 mg/dL LAB CHEMISTRY METHOD 08/04/2024 9:42 AM [facility] BUN 44(H) 5 - 25 mg/dL LAB CHEMISTRY METHOD 08/04/2024 9:42 AM [facility] Creatinine 2.43(H) 0.50 - 1.10 mg/dL LAB CHEMISTRY METHOD 08/04/2024 9:42 AM [facility] eGFR 20(L) >=60 mL/min/1. 73m2 LAB CHEMISTRY METHOD 08/04/2024 9:42 AM [facility] Comment:Calculation based on the Chronic Kidney Disease Epidemiology Collaboration (CKD-EPI) equation refit without adjustment for race. BUN/Creatinine Ratio 18.1 LAB CHEMISTRY METHOD 08/04/2024 9:42 AM [facility] Calcium 8.8 8.5 - 10.5 mg/dL LAB CHEMISTRY METHOD 08/04/2024 9:42 AM [facility] Blood Venous blood specimen / Unknown Venipuncture / Unknown 08/04/2024 6:38 AM EST 08/04/2024 8:24 AM EST us Hortencia Mcclellan MD LAB BLOOD ORDERABLES Fin al Result [facility] [address] [place] [address], * (ABNORMAL) Complete blood count (08/04/2024 6:38 AM EST) [facility] WBC 4.5(L) 4.8 - 10.8 K/mcL LAB HEMETOLOGY METHOD 08/04/2024 9:19 AM [facility] RBC 3.20(L) 3.80 - 4.80 M/mcL LAB HEMETOLOGY METHOD 08/04/2024 9:19 AM [facility] Hemoglobin 9.0(L) 11.5 - 16.0 g/dL LAB HEMETOLOGY METHOD 08/04/2024 9:19 AM [facility] Hematocrit 31.8(L) 35.0 - 47.0 % LAB HEMETOLOGY METHOD 08/04/2024 9:19 AM [facility] MCV 100.0(H) 79.0 - 98.0 FL LAB HEMETOLOGY METHOD 08/04/2024 9:19 AM [facility] MCH 28.3 27.0 - 32.0 pcg LAB HEMETOLOGY METHOD 08/04/2024 9:19 AM [facility] MCHC 28.3(L) 32.0 - 37.0 g/dL LAB HEMETOLOGY METHOD 08/04/2024 9:19 AM [facility] RDW 18.9(H) 11.0 - 15.0 % LAB HEMETOLOGY METHOD 08/04/2024 9:19 AM [facility] Platelets 188 130 - 400 K/mcL LAB HEMETOLOGY METHOD 08/04/2024 9:19 AM [facility] MPV 10.6 7.0 - 11.0 FL LAB HEMETOLOGY METHOD 08/04/2024 9:19 AM [facility] NRBC 0.0 <1.0 % LAB HEMETOLOGY METHOD 08/04/2024 9:19 AM EST [facility] NRBC Absolute 0.00 <0.10 K/mcL LAB HEMETOLOGY METHOD 08/04/2024 9:19 AM EST [facility] Blood Venous blood specimen / Unknown Venipuncture / Unknown 08/04/2024 6:38 AM EST 08/04/2024 8:24 AM EST us Hortencia Mcclellan MD LAB BLOOD ORDERABLES Fin al Result [facility] [address] [place] [address], documented in this encounter Visit Diagnoses Diagnosis Type 2 diabetes mellitus without complications (CMS/HCC V24, CMS/HCC V28) Heart failure, unspecified (CMS/HCC V24, CMS/HCC V28) Heart failure, unspecified documented in this encounter Care Teams School Social Worker Relationship Specialty Start Date End Date Amina Burciaga MD [address] [place] [address] PCP - General Hospitalist Medicine 09/11/24 documented as of this encounter
--- OUTSIDE RECORDS SUMMARY | 2025-05-04 06:20 | XMS_ITS | Encounter Summary ---
Author Organization [facility] Address [address] [place] [address] Care Team Providers Care Drapery Cutter Machine Name Role Phone Amina Burciaga MD Primary Care Provider [phone] Encounter Details Date Type Department Care Team (Late st Contact Info) Description 09/30/2024 Lab Requisition [facility] - Main Lab 299 [facility] [place] [address] Isaac Stark MD [address] [place] [address] [place] [address] Heart failure, unspecified (CMS/HCC V24, CMS/HCC V28); Vitamin D deficiency, unspecified Social History Tobacco Use Types Packs/Day Years [...] Procedure Name Priority Date/Time Associated Diagnosis Comments VITAMIN D 25 HYDROXY Routine 09/30/2024 9:57 AM EST Heart failure, unspecified (CMS/HCC) Vitamin D deficiency, unspecified COMPLETE BLOOD COUNT Routine 09/30/2024 9:57 AM EST Heart failure, unspecified (CMS/HCC) Vitamin D deficiency, unspecified VITAMIN B12 Routine 09/30/2024 9:57 AM EST Heart failure, unspecified (CMS/HCC) Vitamin D deficiency, unspecified COMPREHENSIVE METABOLIC PANEL Routine 09/30/2024 9:57 AM EST Heart failure, unspecified (CMS/HCC) Vitamin D deficiency, unspecified documented in this encounter Results * (ABNORMAL) Vitamin B12 (09/30/2024 9:57 AM EST) [facility] Vitamin B-12 1,028(H) 250 - 900 pcg/mL LAB CHEMISTRY METHOD 09/30/2024 1:04 PM [facility] Blood Venous blood specimen / Unknown Venipuncture / Unknown 09/30/2024 9:57 AM EST 09/30/2024 10:50 AM EST us Isaac Stark MD LAB BLOOD ORDERABLES Final Resu lt [facility] [address] [place] [address], [place] [phone] * (ABNORMAL) Comprehensive metabolic panel (09/30/2024 9:57 AM EST) [facility] Sodium 138 133 - 145 mmol/L LAB CHEMISTRY METHOD 09/30/2024 1:04 PM [facility] Potassium 3.7 3.5 - 5.5 mmol/L LAB CHEMISTRY METHOD 09/30/2024 1:04 PM [facility] Chloride 100 96 - 110 mmol/L LAB CHEMISTRY METHOD 09/30/2024 1:04 PM [facility] CO2 31 21 - 32 mmol/L LAB CHEMISTRY METHOD 09/30/2024 1:04 PM [facility] Anion Gap 7 3 - 11 LAB CHEMISTRY METHOD 09/30/2024 1:04 PM [facility] Glucose 228(H) 70 - 100 mg/dL LAB CHEMISTRY METHOD 09/30/2024 1:04 PM [facility] BUN 90(H) 5 - 25 mg/dL LAB CHEMISTRY METHOD 09/30/2024 1:04 PM [facility] Creatinine 2.19(H) 0.50 - 1.10 mg/dL LAB CHEMISTRY METHOD 09/30/2024 1:04 PM [facility] eGFR 23(L) >=60 mL/min/1. 73m2 LAB CHEMISTRY METHOD 09/30/2024 1:04 PM [facility] Comment:Calculation based on the Chronic Kidney Disease Epidemiology Collaboration (CKD-EPI) equation refit without adjustment for race. BUN/Creatinine Ratio 41.1 LAB CHEMISTRY METHOD 09/30/2024 1:04 PM [facility] Calcium 8.9 8.5 - 10.5 mg/dL LAB CHEMISTRY METHOD 09/30/2024 1:04 PM [facility] AST (SGOT) 22 10 - 42 unit/L LAB CHEMISTRY METHOD 09/30/2024 1:04 PM [facility] ALT (SGPT) 28 10 - 60 unit/L LAB CHEMISTRY METHOD 09/30/2024 1:04 PM [facility] Alkaline Phosphatase 47 42 - 121 unit/L LAB CHEMISTRY METHOD 09/30/2024 1:04 PM [facility] Total Protein 6.2 6.0 - 8.0 g/dL LAB CHEMISTRY METHOD 09/30/2024 1:04 PM [facility] Albumin 2.7(L) 3.2 - 5.0 g/dL LAB CHEMISTRY METHOD 09/30/2024 1:04 PM [facility] Total Bilirubin 0.6 0.0 - 1.4 mg/dL LAB CHEMISTRY METHOD 09/30/2024 1:04 PM [facility] Blood Venous blood specimen / Unknown Venipuncture / Unknown 09/30/2024 9:57 AM EST 09/30/2024 10:50 AM EST us Isaac Stark MD LAB BLOOD ORDERABLES Final Resu lt [facility] [address] [place] [address], * (ABNORMAL) Complete blood count (09/30/2024 9:57 AM EST) [facility] WBC 5.9 4.8 - 10.8 K/mcL LAB HEMETOLOGY METHOD 09/30/2024 12:25 PM [facility] RBC 3.80 3.80 - 4.80 M/mcL LAB HEMETOLOGY METHOD 09/30/2024 12:25 PM [facility] Hemoglobin 11.2(L) 11.5 - 16.0 g/dL LAB HEMETOLOGY METHOD 09/30/2024 12:25 PM [facility] Hematocrit 37.7 35.0 - 47.0 % LAB HEMETOLOGY METHOD 09/30/2024 12:25 PM [facility] MCV 98.2(H) 79.0 - 98.0 FL LAB HEMETOLOGY METHOD 09/30/2024 12:25 PM [facility] MCH 29.2 27.0 - 32.0 pcg LAB HEMETOLOGY METHOD 09/30/2024 12:25 PM [facility] MCHC 29.7(L) 32.0 - 37.0 g/dL LAB HEMETOLOGY METHOD 09/30/2024 12:25 PM [facility] RDW 17.7(H) 11.0 - 15.0 % LAB HEMETOLOGY METHOD 09/30/2024 12:25 PM [facility] Platelets 183 130 - 400 K/mcL LAB HEMETOLOGY METHOD 09/30/2024 12:25 PM [facility] MPV 11.7(H) 7.0 - 11.0 FL LAB HEMETOLOGY METHOD 09/30/2024 12:25 PM [facility] NRBC 0.0 <1.0 % LAB HEMETOLOGY METHOD 09/30/2024 12:25 PM [facility] NRBC Absolute 0.00 <0.10 K/mcL LAB HEMETOLOGY METHOD 09/30/2024 12:25 PM EST [facility] Blood Venous blood specimen / Unknown Venipuncture / Unknown 09/30/2024 9:57 AM EST 09/30/2024 10:50 AM EST us Isaac Stark MD LAB BLOOD ORDERABLES Final Resu lt Performing Organization Address City/[facility]/ZIP Co de Phone Number [facility] [address] [place] [address], [place] [phone] * Vitamin D 25 hydroxy (09/30/2024 9:57 AM EST) Vit D, 25-Hydroxy 54.9 30.0 - 80.0 ng/mL LAB CHEMISTRY METHOD 09/30/2024 12:48 PM EST [facility] Blood Venous blood specimen / Unknown Venipuncture / Unknown 09/30/2024 9:57 AM EST 09/30/2024 10:50 AM EST us Isaac Stark MD LAB BLOOD ORDERABLES Final Resu lt Performing Organization Address [facility]/ZIP Co de Phone Number [facility] [address] [place] [address], [place] [phone] documented in this encounter Visit Diagnoses Diagnosis Heart failure, unspecified (CMS/HCC V24, CMS/HCC V28) Heart failure, unspecified Vitamin D deficiency, unspecified documented in this encounter Care Teams Drapery Cutter Machine Relationship Specialty Start Date End Date Amina Burciaga MD [address] [place] [phone] PCP - General Hospitalist Medicine 09/11/24 documented as of this encounter
--- OUTSIDE RECORDS SUMMARY | 2025-05-04 06:20 | XMS_ITS | Encounter Summary ---
Author Organization [facility], Address [address] [place] [address] Phone Care Team Providers Care Final Coat Sprayer Name Role Phone Dandre Chavez MD Primary Care Provider [phone] Encounter Details Date Type Department Care Team (Late st Contact Info) Description 11/29/2023 Documentation Only [facility], [address] [place] [address] Radha Chatterjee MD [address] [place] [phone] Social History Tobacco Use Types Packs/Day Years [...] on filedocumented in this encounter Care Teams Final Coat Sprayer Relationship Specialty Start Date End Date Dandre Chavez MD [address] [place] [address], [address] [place], [place] PCP - General 07/07/19 documented as of this encounter
--- OUTSIDE RECORDS SUMMARY | 2025-05-04 06:20 | XMS_ITS | Encounter Summary ---
Author Organization [facility] Address [address] [place] [address] Care Team Providers Care Lockstitch Topstitcher Name Role Phone Amina Burciaga MD Primary Care Provider [phone] Encounter Details Date Type Department Care Team (Late st Contact Info) Description 08/10/2024 Lab Requisition [facility] - Main Lab 299 [facility] [place] [address] Hortencia Mcclellan MD [address] [id number] Type 2 diabetes mellitus without complications (CMS/HCC [...] documented as of this encounter Visit Diagnoses Diagnosis Type 2 diabetes mellitus without complications (CMS/HCC V24, CMS/HCC V28) Heart failure, unspecified (CMS/HCC V24, CMS/HCC V28) Heart failure, unspecified documented in this encounter Care Teams Lockstitch Topstitcher Relationship Specialty Start Date End Date Amina Burciaga MD [address] [place] [address] PCP - General Hospitalist Medicine 09/11/24 documented as of this encounter
--- OUTSIDE RECORDS SUMMARY | 2025-05-04 06:20 | XMS_ITS | Encounter Summary ---
Author Organization [facility], Address [address] [place] [address] Phone Care Team Providers Care Senior Benefits Specialist Name Role Phone Dandre Chavez MD Primary Care Provider [phone] Encounter Details Date Type Department Care Team (Late st Contact Info) Description 08/06/2023 Documentation Only [facility], [address] [place] [address] Desi Rodriguez Social History Tobacco Use Types Packs/Day Years [...] on filedocumented in this encounter Care Teams Senior Benefits Specialist Relationship Specialty Start Date End Date Dandre Chavez MD [address] [place] [address], [address] [place], [place] PCP - General 07/07/19 documented as of this encounter
--- OUTSIDE RECORDS SUMMARY | 2025-05-04 06:20 | XMS_ITS | Encounter Summary ---
Author Organization [facility], Address [address] [place] [address] Phone Care Team Providers Care Bonderizer Operator Name Role Phone Dandre Chavez MD Primary Care Provider [phone] Encounter Details Date Type Department Care Team (Late st Contact Info) Description 01/08/2025 Documentation Only [facility], [address] [place] [address] Radha Chatterjee [place] [address] [place] [phone] Social History Tobacco Use Types Packs/Day Years [...] on filedocumented in this encounter Care Teams Bonderizer Operator Relationship Specialty Start Date End Date Dandre Chavez MD [address] [place] [address], [address] [place], [place] PCP - General 07/07/19 documented as of this encounter
--- OUTSIDE RECORDS SUMMARY | 2025-05-04 06:20 | XMS_ITS | Encounter Summary ---
Author Organization [facility] Address [address] [place] [address] Care Team Providers Care Air Brake Mechanic Name Role Phone Amina Burciaga MD Primary Care Provider [phone] Encounter Details Date Type Department Care Team (Latest Contact Info) Description 09/23/2024 Lab Requisition [facility] - Main Lab [address] [place] [address] Amina Burciaga MD [address] [place] [address] Type 2 diabetes mellitus with unspecified complications (CMS/HCC V24, CMS/HCC V28); Unspecified systolic (congestive) heart failure (CMS/HCC V24, CMS/HCC V28) Social History Tobacco [...] Associated Diagnosis Comments COMPLETE BLOOD COUNT Routine 09/23/2024 8:20 AM EST Type 2 diabetes mellitus with unspecified complications (CMS/HCC) Unspecified systolic (congestive) heart failure (CMS/HCC) HEMOGLOBIN A1C Routine 09/23/2024 8:20 AM EST Type 2 diabetes mellitus with unspecified complications (CMS/HCC) Unspecified systolic (congestive) heart failure (CMS/HCC) COMPREHENSIVE METABOLIC PANEL Routine 09/23/2024 8:20 AM EST Type 2 diabetes mellitus with unspecified complications (CMS/HCC) Unspecified systolic (congestive) heart failure (CMS/HCC) documented in this encounter Results * Hemoglobin A1c (09/23/2024 8:20 AM EST) Hemoglobin A1C 5.3 <6.5 % LAB CHEMISTRY METHOD 09/23/2024 2:17 PM [facility] Mean Bld Glu Estim. 105 mg/dL LAB CHEMISTRY METHOD 09/23/2024 2:17 PM [facility] Blood Venous blood specimen / Unknown Venipuncture / Unknown 09/23/2024 8:20 AM EST 09/23/2024 12:06 PM EST Amina Burciaga MD LAB BLOOD ORDERABLES Final Resul t [facility] [address] [place] [address], * (ABNORMAL) Comprehensive metabolic panel (09/23/2024 8:20 AM EST) Pathologist [facility] Sodium 140 133 - 145 mmol/L LAB CHEMISTRY METHOD 09/23/2024 4:37 PM [facility] Potassium 3.9 3.5 - 5.5 mmol/L LAB CHEMISTRY METHOD 09/23/2024 4:37 PM [facility] Chloride 102 96 - 110 mmol/L LAB CHEMISTRY METHOD 09/23/2024 4:37 PM [facility] CO2 31 21 - 32 mmol/L LAB CHEMISTRY METHOD 09/23/2024 4:37 PM [facility] Anion Gap 7 3 - 11 LAB CHEMISTRY METHOD 09/23/2024 4:37 PM [facility] Glucose 106(H) 70 - 100 mg/dL LAB CHEMISTRY METHOD 09/23/2024 4:37 PM [facility] BUN 82(H) 5 - 25 mg/dL LAB CHEMISTRY METHOD 09/23/2024 4:37 PM [facility] Creatinine 2.46(H) 0.50 - 1.10 mg/dL LAB CHEMISTRY METHOD 09/23/2024 4:37 PM [facility] eGFR 20(L) >=60 mL/min/1. 73m2 LAB CHEMISTRY METHOD 09/23/2024 4:37 PM [facility] Comment:Calculation based on the Chronic Kidney Disease Epidemiology Collaboration (CKD-EPI) equation refit without adjustment for race. BUN/Creatinine Ratio 33.3 LAB CHEMISTRY METHOD 09/23/2024 4:37 PM [facility] Calcium 8.7 8.5 - 10.5 mg/dL LAB CHEMISTRY METHOD 09/23/2024 4:37 PM [facility] AST (SGOT) 17 10 - 42 unit/L LAB CHEMISTRY METHOD 09/23/2024 4:37 PM [facility] ALT (SGPT) 34 10 - 60 unit/L LAB CHEMISTRY METHOD 09/23/2024 4:37 PM [facility] Alkaline Phosphatase 57 42 - 121 unit/L LAB CHEMISTRY METHOD 09/23/2024 4:37 PM [facility] Total Protein 7.1 6.0 - 8.0 g/dL LAB CHEMISTRY METHOD 09/23/2024 4:37 PM [facility] Albumin 3.2 3.2 - 5.0 g/dL LAB CHEMISTRY METHOD 09/23/2024 4:37 PM [facility] Total Bilirubin 0.6 0.0 - 1.4 mg/dL LAB CHEMISTRY METHOD 09/23/2024 4:37 PM [facility] Blood Venous blood specimen / Unknown Venipuncture / Unknown 09/23/2024 8:20 AM EST 09/23/2024 12:06 PM EST us Amina Burciaga MD LAB BLOOD ORDERABLES Final Resul t [facility] [address] [place] [address], * (ABNORMAL) Complete blood count (09/23/2024 8:20 AM EST) [facility] WBC 6.2 4.8 - 10.8 K/mcL LAB HEMETOLOGY METHOD 09/23/2024 12:38 PM [facility] RBC 3.60(L) 3.80 - 4.80 M/mcL LAB HEMETOLOGY METHOD 09/23/2024 12:38 PM [facility] Hemoglobin 10.5(L) 11.5 - 16.0 g/dL LAB HEMETOLOGY METHOD 09/23/2024 12:38 PM [facility] Hematocrit 36.5 35.0 - 47.0 % LAB HEMETOLOGY METHOD 09/23/2024 12:38 PM [facility] MCV 100.3(H) 79.0 - 98.0 FL LAB HEMETOLOGY METHOD 09/23/2024 12:38 PM [facility] MCH 28.8 27.0 - 32.0 pcg LAB HEMETOLOGY METHOD 09/23/2024 12:38 PM [facility] MCHC 28.8(L) 32.0 - 37.0 g/dL LAB HEMETOLOGY METHOD 09/23/2024 12:38 PM [facility] RDW 18.4(H) 11.0 - 15.0 % LAB HEMETOLOGY METHOD 09/23/2024 12:38 PM [facility] Platelets 254 130 - 400 K/mcL LAB HEMETOLOGY METHOD 09/23/2024 12:38 PM [facility] MPV 10.7 7.0 - 11.0 FL LAB HEMETOLOGY METHOD 09/23/2024 12:38 PM [facility] NRBC 0.0 <1.0 % LAB HEMETOLOGY METHOD 09/23/2024 12:38 PM EST [facility] NRBC Absolute 0.00 <0.10 K/mcL LAB HEMETOLOGY METHOD 09/23/2024 12:38 PM EST [facility] Blood Venous blood specimen / Unknown Venipuncture / Unknown 09/23/2024 8:20 AM EST 09/23/2024 12:06 PM EST us Amina Burciaga MD LAB BLOOD ORDERABLES Final Resul t [facility] [address] [place] [address], documented in this encounter Visit Diagnoses Diagnosis Type 2 diabetes mellitus with unspecified complications (CMS/HCC V24, CMS/HCC V28) Unspecified systolic (congestive) heart failure (CMS/HCC V24, CMS/HCC V28) documented in this encounter Care Teams Air Brake Mechanic Relationship Specialty Start Date End Date Amina Burciaga MD [address] [place] [address] PCP - General Hospitalist Medicine 09/11/24 documented as of this encounter
--- OUTSIDE RECORDS SUMMARY | 2025-05-04 06:20 | XMS_ITS | Encounter Summary ---
Author Organization [facility] Address [address] [place] [phone] Care Team Providers Care Event Specialist Product Demonstrator Name Role Phone Amina Burciaga MD Primary Care Provider [phone] Encounter Details Date Type Department Care Team (Late st Contact Info) Description 07/13/2024 Lab Requisition [facility] - Main Lab [address] [facility] [place] [address] Hortencia Mcclellan MD [address] [id number] Type 2 diabetes mellitus without complications (CMS/HCC [...] Associated Diagnosis Comments COMPLETE BLOOD COUNT Routine 07/14/2024 6:08 AM EST Type 2 diabetes mellitus without complications (CMS/HCC) Heart failure, unspecified (CMS/HCC) BASIC METABOLIC PANEL Routine 07/14/2024 6:08 AM EST Type 2 diabetes mellitus without complications (CMS/HCC) Heart failure, unspecified (CMS/HCC) documented in this encounter Results * (ABNORMAL) Basic metabolic panel (07/14/2024 6:08 AM EST) Sodium 139 133 - 145 mmol/L LAB CHEMISTRY METHOD 07/14/2024 9:03 AM [facility] Potassium 3.8 3.5 - 5.5 mmol/L LAB CHEMISTRY METHOD 07/14/2024 9:03 AM [facility] Chloride 105 96 - 110 mmol/L LAB CHEMISTRY METHOD 07/14/2024 9:03 AM [facility] CO2 28 21 - 32 mmol/L LAB CHEMISTRY METHOD 07/14/2024 9:03 AM [facility] Anion Gap 6 3 - 11 LAB CHEMISTRY METHOD 07/14/2024 9:03 AM [facility] Glucose 105(H) 70 - 100 mg/dL LAB CHEMISTRY METHOD 07/14/2024 9:03 AM [facility] BUN 70(H) 5 - 25 mg/dL LAB CHEMISTRY METHOD 07/14/2024 9:03 AM [facility] Creatinine 3.26(H) 0.50 - 1.10 mg/dL LAB CHEMISTRY METHOD 07/14/2024 9:03 AM [facility] eGFR 14(L) >=60 mL/min/1. 73m2 LAB CHEMISTRY METHOD 07/14/2024 9:03 AM [facility] Comment:Calculation based on the Chronic Kidney Disease Epidemiology Collaboration (CKD-EPI) equation refit without adjustment for race. BUN/Creatinine Ratio 21.5 LAB CHEMISTRY METHOD 07/14/2024 9:03 AM [facility] Calcium 8.6 8.5 - 10.5 mg/dL LAB CHEMISTRY METHOD 07/14/2024 9:03 AM [facility] Blood Venous blood specimen / Unknown Venipuncture / Unknown 07/14/2024 6:08 AM EST 07/14/2024 8:03 AM EST us Hortencia Mcclellan MD LAB BLOOD ORDERABLES Fin al Result [facility] [address] [place] [address], * (ABNORMAL) Complete blood count (07/14/2024 6:08 AM EST) [facility] WBC 5.3 4.8 - 10.8 K/mcL LAB HEMETOLOGY METHOD 07/14/2024 8:32 AM [facility] RBC 3.00(L) 3.80 - 4.80 M/mcL LAB HEMETOLOGY METHOD 07/14/2024 8:32 AM [facility] Hemoglobin 8.3(L) 11.5 - 16.0 g/dL LAB HEMETOLOGY METHOD 07/14/2024 8:32 AM [facility] Hematocrit 29.9(L) 35.0 - 47.0 % LAB HEMETOLOGY METHOD 07/14/2024 8:32 AM [facility] MCV 101.4(H) 79.0 - 98.0 FL LAB HEMETOLOGY METHOD 07/14/2024 8:32 AM [facility] MCH 28.1 27.0 - 32.0 pcg LAB HEMETOLOGY METHOD 07/14/2024 8:32 AM [facility] MCHC 27.8(L) 32.0 - 37.0 g/dL LAB HEMETOLOGY METHOD 07/14/2024 8:32 AM [facility] RDW 20.0(H) 11.0 - 15.0 % LAB HEMETOLOGY METHOD 07/14/2024 8:32 AM [facility] Platelets 198 130 - 400 K/mcL LAB HEMETOLOGY METHOD 07/14/2024 8:32 AM [facility] MPV 10.3 7.0 - 11.0 FL LAB HEMETOLOGY METHOD 07/14/2024 8:32 AM [facility] NRBC 0.0 <1.0 % LAB HEMETOLOGY METHOD 07/14/2024 8:32 AM EST [facility] NRBC Absolute 0.00 <0.10 K/mcL LAB HEMETOLOGY METHOD 07/14/2024 8:32 AM EST [facility] Blood Venous blood specimen / Unknown Venipuncture / Unknown 07/14/2024 6:08 AM EST 07/14/2024 8:03 AM EST us Hortencia Mcclellan MD LAB BLOOD ORDERABLES Fin al Result [facility] [address] [place] [address], documented in this encounter Visit Diagnoses Diagnosis Type 2 diabetes mellitus without complications (CMS/HCC V24, CMS/HCC V28) Heart failure, unspecified (CMS/HCC V24, CMS/HCC V28) Heart failure, unspecified documented in this encounter Care Teams Event Specialist Product Demonstrator Relationship Specialty Start Date End Date Amina Burciaga MD [address] [place] [address] PCP - General Hospitalist Medicine 09/11/24 documented as of this encounter
--- OUTSIDE RECORDS SUMMARY | 2025-05-04 06:20 | XMS_ITS | Encounter Summary ---
Author Organization [facility], Address [address] [place] [address] Phone Care Team Providers Care Senior National Account Manager Name Role Phone Dandre Chavez MD Primary Care Provider Encounter Details Date Type Department Care Team (Late st Contact Info) Description 12/31/2022 Documentation Only [facility], [address] [place] [address] Melissa Delgadillo [address] [place] [phone] Social History Tobacco Use Types Packs/Day Years [...] filedocumented in this encounter Care Teams Senior National Account Manager Relationship Specialty Start Date End Date Dandre Chavez MD [address] [place] [address], [address] [place], [place] PCP - General 07/07/19 documented as of this encounter
--- OUTSIDE RECORDS SUMMARY | 2025-05-04 06:20 | XMS_ITS | Clinical Summary ---
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 DIAGNOSTIC USE: The [place] Diabetes [employer] (ADA) and the World Health [...] Supplement 1 Testing performed or reported by [facility], a Service of [address] [address] Luois Fry MD, Air Quality Chemist [facility]# [id number] Blood specimen (specimen) Venous blood / Unknown 10/18/2022 2:34 PM EST 10/18/2022 2:35 PM EST us Faina LUCIANO LAB BLOOD ORDERABLES Final Res ult [facility] from Last 3 Months or Most Recently Relevant to Health Maintenance Insurance Medicare [facility] [place] [id number] Care Teams Financial Services Manager Relationship Specialty Start Date End Date Dandre Chavez MD [address] [place] [address], [address] [place] PCP - General 07/07/19
--- OUTSIDE RECORDS SUMMARY | 2025-05-04 06:20 | XMS_ITS | Encounter Summary ---
Author Organization [facility], Address [address] [place] [address] Phone Care Team Providers Care Bear Keeper Name Role Phone Dandre Chavez MD Primary Care Provider [phone] Encounter Details Date Type Department Care Team (Late st Contact Info) Description 12/31/2022 Documentation Only [facility], [address] [place] [address] Melissa Delgadillo [address] [place] [phone] Social History Tobacco Use Types Packs/Day Years [...] on filedocumented in this encounter Care Teams Bear Keeper Relationship Specialty Start Date End Date Dandre Chavez MD [address] [place] [address], [address] [place], [place] PCP - General 07/07/19 documented as of this encounter
--- OUTSIDE RECORDS SUMMARY | 2025-05-04 06:20 | XMS_ITS | Clinical Summary ---
Author Organization [facility] Address [address] [place] [id number] Phone Care Team Providers Care Printer Helper Name Role Phone Dandre Chavez MD Primary Care Provider [phone] Miguel Enciso MD Unavailable [phone] Allergies Active Allergy Reactions Criticality Noted Date Comments Bethanechol 02/16/2022 Other reaction(s): anorexia and loss of sight Metoprolol 02/16/2022 Amlodipine 10/28/2018 Oxycodone-Acetaminophen 10/28/2018 Bethanechol Chloride 10/28/2018 Medications atorvastatin (LIPITOR) 80 MG tablet Take 1 tablet by mouth daily. 5 Active PARoxetine (PAXIL) 10 MG tablet Take 30 mg by mouth every morning. Active traMADol (ULTRAM) 50 mg tablet Take 1 tablet by mouth every 6 (six) hours as needed. Active aspirin 81 MG EC tablet Take 81 mg by mouth daily. Active glipiZIDE (GLUCOTROL) 5 MG tablet Take 7.5 mg by mouth daily. 7.5mg QD Active allopurinol (ZYLOPRIM) 100 MG tablet Take 100 mg by mouth daily. 2 Active levothyroxine (SYNTHROID, LEVOTHROID) 112 MCG tablet Take 1 tablet (112 mcg total) by mouth every morning. 1 tablet 5 days a week, 1.5 tablets 2 days a week 30 tablet 5 2 Active Additional Information Patient taking differently: 137 mcgOral Every morning,(No instructions reported), Reported on 09/07/2022 docusate sodium (COLACE) 100 MG capsule Take 100 mg by mouth 2 (two) times a day. 2 Active olmesartan (BENICAR) 5 mg tablet Take 5 mg by mouth daily. Active torsemide (DEMADEX) 100 MG tabletIndicatio ns:Chronic diastolic heart failure TAKE 1 TABLET(100 MG) BY MOUTH DAILY 90 tablet 3 4 Active Additional Information Patient taking differently: 40 mg, Reported on 04/22/2024 acetaminophen (TYLENOL) 325 mg tablet Take 650 mg by mouth. 4 Active ferrous sulfate 325 mg (65 mg kobuk iron) EC tablet Take 325 mg by mouth. 4 Active fexofenadine (JUAN) 60 MG tablet Active guselkumab 100 mg/mL AtIn Inject under the skin. Active ipratropium-alb uteroL (DUONEB) 0.5-3 mg (2.5 mg base)/3 mL nebulizer solution 3 mL. 4 Active loratadine (CLARITIN) 10 mg tablet Take 10 mg by mouth. 4 Active carvedilol (COREG) 6.25 MG tablet TAKE 1 TABLET(6.25 MG) BY MOUTH TWICE DAILY 60 tablet 5 4 Active JARDIANCE 10 mg tabletIndicatio ns:Chronic diastolic heart failure TAKE 1 TABLET(10 MG) BY MOUTH DAILY 90 tablet 3 4 Active Hospital, Clinic, or Other Facility Administered Medication Ordered Dose Route Frequency Start Date End Date Status sodium chloride (NS) 0.9 % syringe flush 3 mL 3 mL IV As needed 02/16/2022 Active Active Problems Problem Noted Date Diagnosed Date Mitral valve stenosis 12/21/2022 Assessment & Plan (12/21/2022 3:02 PM EDT): We reviewed her most recent echocardiogram, showing progression of mitral stenosis to severe. At this point, she is asymptomatic. We discussed options including a KELSY versus surveillance echocardiogram in 6 months. Because she's been feeling so well, would prefer 6 month surveillance echo for now. We reviewed symptoms that would warrant sooner attention- shortness of breath, etc. Chronic diastolic heart failure 04/18/2022 Assessment & Plan (12/21/2022 2:58 PM EDT): CardioMEMS readings have been stable. She is feeling well. Today is a telemedicine, so I am unable to physically assess her. Continue torsemide at 100 mg daily in addition to Jardiance 10 mg daily. Assessment & Plan (04/18/2022 2:38 PM EDT): She is euvolemic on exam today. Doing well following her CardioMEMS implant. We will continue to trend her numbers. Check a BMP today (hx CKD stage III) to ensure no changes on current dose of torsemide. I've encouraged her to continue to follow a low sodium diet as well as to alert our office of a weight gain of 3 lbs overnight/5 lbs in one week and/or symptoms of worsening HF. Pulmonary HTN 04/03/2022 PAD (peripheral artery disease) 04/14/2020 Assessment & Plan (04/14/2020 10:46 PM EDT): 09/2019 JENN of 0.6 on the right and 0.55 on the left. No non healing ulcers, mild claudication. Recommend to try to increase ambulation to develop collateral circulation. Red flags and sx to report reviewed Obesity 02/27/2019 Assessment & Plan (04/14/2020 10:44 PM EDT): BMI of 44.56. She is trying to increase ambulation with her daughter's encouragement. Discussed importance of leading heart healthy lifestyle with regular exercise of 30 minutes daily, Mediterranean diet, restriction of sodium intake, and maintenance of ideal body weight. Assessment & Plan (02/27/2019 5:25 PM EDT): I have encouraged her to lose weight. She is unable to be very active. I have encouraged her to focus on healthy food choices. Atherosclerosis of [place] co ronary artery of [place] heart with angina pectoris 10/28/2018 Assessment & Plan (04/18/2022 2:35 PM EDT): Denies any concerning exertional symptoms. Continue to optimize cardiac risk factors- remain on 81 mg aspiring and 80 mg atorvastatin indefinitely. She is looking forward to getting more exercise as the weather gets nicer. Assessment & Plan (11/09/2021 1:27 PM EST): Denies any concerning exertional symptoms. Continue to optimize cardiac risk factors- remain on 81 mg aspiring and 80 mg atorvastatin indefinitely. She is looking forward to getting more exercise as the weather gets nicer. Assessment & Plan (04/14/2020 10:40 PM EDT): History of inferior DE in 2013 with a stent to her RCA , LAD and circumflex and end STEMI in 2018 with another stent to mid LAD with 80% mid RCA and 50% proximal circumflex stenosis. Today clinically stable, denies angina, continue on aspirin 81 mg daily and to optimize risks factors. Recheck lipids on lipitor 80 mg daily. Assessment & Plan (02/27/2019 5:23 PM EDT): She has extensive coronary artery disease with prior stents in her RCA and LAD. She presented with a non-ST relation DE September 2018 and had a new culprit in her LAD which was stented with one drug-eluting stent. She did have a 80% stenosis in her RCA as well. Follow-up echocardiogram showed preserved LV function and follow-up nuclear stress test showed inferior scar with some mild inferior ischemia. EF was 41% on the nuclear stress test. Echocardiogram from around the same time showing EF of 60%. She should remain on aspirin lifelong. I would continue her on clopidogrel for 1 year from the time of the last stents. We will continue to optimize her other cardiac risk factors. Assessment & Plan (10/28/2018 7:10 PM EST): -She reports that her symptoms of NSTEMI last month presented more with shortness of breath and feeling poorly overall. She had a cardiac catheterization and received a stent to the mid LAD. -She had a stay in rehabilitation and has now returned home. She is currently followed by [facility] in the home. She also will be following up with cardiac rehab, however this was delayed due to a recent diagnosis of pneumonia for which she has since been treated. -She has a known area to RCA that is being treated medically. When she is on 3 months of medical therapy, we will repeat a pharmacologic nuclear stress test. Due to her body habitus and ability to be able to be accommodated in the camera, she will need to have this completed at [facility]. She is aware that this is going to be a 2-day study due to weight. This will be completed in December and she will follow-up with Dr. Enciso after testing. -She will continue on atorvastatin with goal LDL <70. We will have her have a repeat lipid panel prior to follow-up. -She is aware to continue on aspirin lifelong. She is also tolerating clopidogrel. She is aware that clopidogrel will be continued for at least one year. -Her blood pressure is relatively controlled in the office. Goal BP <140/90. She has CKD stage II/stage III. She is going to be seeing renal for management of her antihypertensives. She currently will continue on lisinopril 10 mg a day, furosemide 20 mg daily, hydralazine scheduled and as needed, carvedilol 6.25 mg twice a day. Her daughters are aware to call with questions or concerns in between visits. She is at high risk for falls and is instructed to monitor for dizziness and lightheadedness. She continues with lower extremity edema, but daughters report that this is better than previous. Type 2 diabetes mellitus wit h complication, without long-term current use of insulin 10/28/2018 Assessment & Plan (04/14/2020 10:42 PM EDT): A!C goal less then 7% Assessment & Plan (10/28/2018 7:18 PM EST): -Her most recent A1c during hospitalization was almost 9%. She had been off of her antidiabetic regimen due to cost for a few months prior to her NSTEMI. I discussed at length the importance of being on medications and to let people know if she is unable to pay for them. She and her daughter report that she will have new insurance coverage starting October 31. Otherwise she is using medications on the $4 formulary her daughter is managing her medications for her. -She also had an issue recently when she was cutting her toenails on her own and also cut her foot. She is also on dual antiplatelet therapy and had issues with stopping the bleeding. She needed to go to the ER for this. I reviewed at length the importance of regular podiatry follow-ups and monitoring the condition of her feet and skin. She indicates understanding. -She also recently reportedly had an ulceration on her right posterior lower extremity which she reports is healed. She does also have a small area on her anterior right garcia which she reports is due to her psoriasis. I reviewed importance of good blood pressure control, and watching skin integrity and risks of slow healing with ulcerations and skin conditions with her diabetes. -She is on lisinopril for her blood pressure which also acts as renal protective for her diabetes. She will be following up with renal in the near future for further management of her CKD stage II/stage III. -Due to DM and CAD, goal LDL <70. She is on atorvastatin 80 mg daily. Recommend that she have repeat lipid panel prior to follow-up. Other specified hypothyroidism 10/28/2018 MALA (obstructive sleep apnea) 10/28/2018 Assessment & Plan (04/14/2020 10:42 PM EDT): Reports 100% compliance. Assessment & Plan (10/28/2018 7:14 PM EST): -She reports that she wears her CPAP religiously. She was encouraged to continue to do so. Essential hypertension 10/28/2018 Assessment & Plan (04/18/2022 2:35 PM EDT): BP at home (checked by [facility]) average around 130/70. Continue carvedilol at current dose. Assessment & Plan (11/09/2021 1:28 PM EST): Following a low sodium diet begrudgingly. Daughter states PT/OT say that her BP is under great control when they check it. Continue medications at current doses. Assessment & Plan (02/27/2019 5:22 PM EDT): Blood pressure is well controlled in the office today on current regimen, no need for medication changes at this time. Assessment & Plan (10/28/2018 7:11 PM EST): -Pressure is under relative good control today. She has had issues with paying for medications in the past and insurance will be changing in October. Her daughters are managing her medications for her. She has had to have medications based on the $4 formulary. She reports that she is taking her medications as ordered. -Goal BP less than 140/90. She will also be seeing renal in the next month for her CKD stage II stage III as well as hypertensive management. I will make no changes to her antihypertensives at this time, but do recommend that she continue to have her blood pressures monitored in the home and in cardiac rehab. She will continue on lisinopril 10 mg daily, carvedilol 6.25 mg twice a day, furosemide 20 mg daily, hydralazine scheduled and as needed. -She will follow-up in the office in about 3 months for further management. CKD (chronic kidney disease), stage II 9 Assessment & Plan (10/28/2018 7:25 PM EST): -Her daughters report that she is CKD stage II/Stage 3. She will be seeing renal in consultation in the next month. At this time, I will make no changes to her antihypertensive regimen and want her to watch her blood pressures at home. Goal BP less than 140/90. I mentioned to her and her daughters that renal may manage some of her antihypertensive regimen and they indicate understanding. Ischemic cardiomyopathy 10/28/2018 Overview (10/28/2018): Presented with NSTEMI and EF on initial echo 30-40%, LVEDP elevated on cath Assessment & Plan (11/09/2021 1:28 PM EST): Weights have been stable, no lower extremity edema, SOB/ZAPATA/orthopnea. Has been on 40 mg daily Lasix. Assessment & Plan (04/14/2020 10:41 PM EDT): 03/29/2020 echo showed EF of 60 to 65%, grade 3 diastolic dysfunction. Continue with olmesartan and carvedilol. Assessment & Plan (02/27/2019 5:24 PM EDT): She had a stress test in December which nuclear report mesylate EF of 41%, she had a transthoracic echocardiogram around the same time which showed an EF of 60%. Continue carvedilol. Assessment & Plan (10/28/2018 7:14 PM EST): -Her echocardiogram during her hospitalization showed decreased EF to 30-40%. She is currently on carvedilol 6.25 mg twice a day, lisinopril 10 mg a day, furosemide 20 mg daily, and hydralazine. She does not weigh herself daily at home, and I have encouraged her to do so. Her daughters indicate understanding and they will start maintaining a blood pressure log, weight log, blood sugar log. They are aware to report worsening signs and symptoms of heart failure including increasing lower extremity edema, worsening dyspnea, weight gain of more than 3 pounds in 1 day, or 5 pounds in 1 week. She will also be following up with cardiac rehab who will be watching her. She is also followed by [facility] in the home at this time. -She does have bilateral lower extremity edema and her daughters report that this is improved from previous. She is overweight and likely has some degree of venous insufficiency. She does have a history of ulceration on her right posterior leg also, and have encouraged her to watch her skin closely and keep legs elevated when possible. Her daughters report that they also wrapped her legs previously and they will work on this. -She will have a repeat echocardiogram after about 3 months of medical therapy, which would be in December. She will have this completed at [facility] due to having her stress test completed there also. She potentially will need Definity contrast for her echocardiogram and this was discussed with she and her daughters and they indicate understanding. Bilateral lower extremity edema 10/28/2018 Assessment & Plan (10/28/2018 7:21 PM EST): -She has bilateral lower extremity edema, which her daughters report since starting on furosemide. She is only on first made 20 mill grams a day. She has been encouraged to weigh herself daily, however has not yet done so. Her daughters indicate that they will start maintaining a log for this. -He has an elevated BMI which may be contributing to some of her lower extremity edema. She also has sleep apnea but is wearing her CPAP machine. She reports that she is sleeping well with this, however in follow-up, this can be discussed of having a repeat sleep study or check of her device to see if it is working well/if needs adjustment. -She also likely has some component of venous insufficiency and has had a history of ulcerations on her right leg. She will be seeing Dr. Enciso in follow-up, and he may consider having venous studies completed. At this time, I do not think she is able to tolerate lying flat due to her recent pneumonia and shortness of breath. She does have some residual lower extremity edema. I have encouraged her daughters to wrap her legs again and monitor skin integrity. Immunizations Immunization Administration Dates Next Due COVID-19 (Pre-06/24) Pfizer Vaccine, mRNA, PF Social History Tobacco Use Types Packs/Day Years Used Date Smoking Tobacco: Former Smokeless Tobacco: Never Alcohol Use Standard Drinks/Week Comments Yes 0 (1 standard drink = 0.6 oz pure alcohol) once a year on special occasions Education Answer Date Recorded Are you interested in more education? Not on aruna e 12/28/2022 Are you concerned about learning? Not on file 12/28/2022 No 12/28/2022 No 12/28/2022 Digital Access Answer Date Recorded No 01/26/2023 No 01/26/2023 Reliable internet access at home? Not on file 01/26/2023 Device with a working camera? Not on file Intimate Partner Violence Answer Date R ecorded Are you denied basic needs s uch as food, clothing, or medical care? No 06/26/2024 In the past 12 months have y ou been in a relationship with a person who hurts, threatens, or tries to control you? No 06/26/2024 Are you denied basic needs s uch as food, clothing, or medical care? No 06/26/2024 In the past 12 months have y ou been in a relationship with a person who hurts, threatens, or tries to control you? No 06/26/2024 Comments Unknown Sex and Gender Information Value Date Recorded Sex Assigned at Not on file Legal Sex Female 10:37 PM EDT Gender Identity Not on file Sexual Orientation Not on file Last Filed Vital Signs Vital Sign Reading Time Taken Comments Blood Pressure 136/83 06/26/2024 9:36 AM EDT Pulse 68 06/26/2024 9:36 AM EDT Temperature 36.1 C (97 F) 06/26/2024 9:36 AM EDT Respiratory Rate 18 06/26/2024 9:36 AM EDT Oxygen Saturation 96% 06/26/2024 9:36 AM EDT Inhaled Oxygen Concentration - - Weight 123.8 kg (273 lb) 04/18/2022 2:15 PM EDT Height 167.6 cm (5' 5.98 ) 04/22/2024 9:59 AM ED T Body Mass Index 44.06 04/03/2022 7:49 AM EDT Plan of Treatment Health Maintenance Due Date Last Done Comments Adult Td,Tdap Booster 1947 TSH LEVEL 1947 DEPRESSION SCREENING 1959 SMOKING Hx and SMOKELESS TOBACCO SCREENING 02/24/1960 HEPATITIS C SCREENING 1965 ZOSTER VACCINES (1 of 2) 1997 OSTEOPOROSIS SCREENING INITIAL (ONE-TIME) 02/24/2012 PNEUMOCOCCAL VACCINES (50+ years) (2 of 2 - PCV) 05/27/2015 05/27/2014 DIABETIC EYE EXAM 10/28/2018 RSV VACCINE (1 - 1-dose 75+ series) 2022 HEMOGLOBIN A1C 04/17/2023 10/18/2022, 07/04, 07/04/2021, Additional history exists CREATININE LEVEL 04/18/2023 04/18/2022, , 02/16/2022, Additional history exists POTASSIUM LEVEL 04/18/2023 04/18/2022, 03/03, 02/16/2022, Additional history exists BLOOD PRESSURE 10/23/2024 04/22/2024 INFLUENZA VACCINE (#1) 2025 , 10/06/2019, 09/12/2018 COVID-19 VACCINE ( season) 2025 09/25/2021, 11/29/2020, 11/08/2020 HEPATITIS A VACCINES Aged Out No long er eligible based on patient's age to complete this topic HIB VACCINES Aged Out No longer eligi ble based on patient's age to complete this topic MENINGOCOCCAL VACCINES (ACWY) Aged Out No longer eligible based on patient's age to complete this topic MENINGOCOCCAL VACCINES (B) Aged Out N o longer eligible based on patient's age to complete this topic Medical Devices Implanted Type Area Plater Production Device Identifier Shelf Expiration Date Model / Serial / Lot Sensor Pulmonary Artery Delivery System Cardiomems - [id number] Implanted:Qt y: 1 on 04/03/2022 by Miguel Enciso MD at [facility] Implantable Monitor Left: Arterial [employer] [id number] 12/15/2023 CM PATIENT SYSTEM / [id number] / Description:Pulmonary artery Procedures Procedure Name Priority Date/Time Associated Diagnosis Comments COMPREHENSIVE METABOLIC PANEL Routine 04/18/2022 2:39 PM EDT Atherosclerosis of [place] coronary artery of [place] heart with angina pectoris Essential hypertension Ischemic cardiomyopathy PAD (peripheral artery disease) from Last 3 Months or Most Recently Relevant to Health Maintenance Results * (ABNORMAL) Comprehensive metabolic panel (04/18/2022 2:39 PM EDT) SODIUM 143 133 - 146 mmol/L [facility] POTASSIUM 4.5 3.3 - 5.1 mmol/L [facility] CHLORIDE 100 96 - 108 mmol/L [facility] CO2 34 21 - 35 mmol/L [facility] BUN 38(H) 6 - 19 mg/dL [facility] CREATININE 1.40 0.5 - 1.5 mg/dL [facility] GLUCOSE 163(H) 70 - 99 mg/dL [facility] ALBUMIN 4.0 3.9 - 4.8 g/dL [facility] TOTAL PROTEIN 7.5 6.5 - 8.0 g/dL [facility] CALCIUM 10.1 8.4 - 10.3 mg/dL [facility] ALKALINE PHOSPHATASE 94 39 - 117 U/L [facility] TOTAL BILIRUBIN 0.6 0.0 - 1.2 mg/dL [facility] AST 26 0 - 37 U/L [facility] ALT 12 0 - 40 U/L [facility] GLOBULIN 3.5 1 - 4.8 g/dL [facility] EGFR 39(L) >59 mL/min/1.7 3m2 [facility] Comment:Estimated glomerular filtration rate calculated using the CKD-EPI refit equation. ANION GAP 14 10 - 20 mmol/L [facility] Blood 04/18/2022 2:39 PM EDT 04/18/2022 2:42 PM EDT us Miguel Enciso MD LAB BLOOD ORDERABLES Final Result [facility] [address] [place] [address] from Last 3 Months or Most Recently Relevant to Health Maintenance Insurance MEDICARE PART A & B [place] MEDICARE PREFERRED HMO REPLACEMENT [facility] [address] MEDICARE PART A & B [place] MED[place] PREFERRED HMO REPLACEMENT [facility] [address] MEDICARE PART A & B Member Subscriber Plan / Payer (Ef fective 2012-Present) Name:Amina Zamora Member ID:[id number] Relation to Subscriber:Self Name:Amina Zamora Subscriber ID:[id number] Payer ID:[id number] Group ID:Not on file Type:Medicare Address: [employer] [address] [place] [phone] [facility] MEDICARE PREFERRED HMO REPLACEMENT MEDICARE PART A & B [place] MEDICARE PREFERRED HMO REPLACEMENT MEDICARE PART A & B [place] MEDICARE PREFERRED HMO REPLACEMENT [facility] MEDICARE PART A & B [place] MEDICARE PREFERRED HMO REPLACEMENT MEDICARE PART A & B [place] MEDICARE PREFERRED HMO REPLACEMENT [facility] MEDICARE PART A & B [place] MEDICARE PREFERRED HMO REPLACEMENT [facility] MEDICARE PART A & B [place] MEDICARE PREFERRED HMO REPLACEMENT [facility] Care Teams Printer Helper Relationship Specialty Start Date End Date Dandre Chavez MD [address] [place] [id number] PCP - General 09/05/17 Miguel Enciso MD [address] [place] [id number] [email or web address] Cardiology 05/28/24 Additional Source Comments The information contained in this document represents components of the legal health record. It is not the complete legal health record.[facility]
--- OUTSIDE RECORDS SUMMARY | 2025-05-04 06:20 | XMS_ITS | Encounter Summary ---
Author Organization [facility] Address [address] [place] [address] Care Team Providers Care Microstrategy Architect Name Role Phone Amina Burciaga MD Primary Care Provider Encounter Details Date Type Department Care Team (Late st Contact Info) Description 07/27/2024 Lab Requisition [facility] - Main Lab 299 [facility] [place] [address] Hortencia Mcclellan MD [address] [id number] Type 2 diabetes mellitus without complications (CMS/HCC [...] Associated Diagnosis Comments COMPLETE BLOOD COUNT Routine 07/28/2024 5:41 AM EST Type 2 diabetes mellitus without complications (CMS/HCC) Heart failure, unspecified (CMS/HCC) BASIC METABOLIC PANEL Routine 07/28/2024 5:41 AM EST Type 2 diabetes mellitus without complications (CMS/HCC) Heart failure, unspecified (CMS/HCC) documented in this encounter Results * (ABNORMAL) Basic metabolic panel (07/28/2024 5:41 AM EST) Sodium 142 133 - 145 mmol/L LAB CHEMISTRY METHOD 07/28/2024 8:47 AM [facility] Potassium 4.3 3.5 - 5.5 mmol/L LAB CHEMISTRY METHOD 07/28/2024 8:47 AM [facility] Chloride 107 96 - 110 mmol/L LAB CHEMISTRY METHOD 07/28/2024 8:47 AM [facility] CO2 25 21 - 32 mmol/L LAB CHEMISTRY METHOD 07/28/2024 8:47 AM [facility] Anion Gap 10 3 - 11 LAB CHEMISTRY METHOD 07/28/2024 8:47 AM [facility] Glucose 49(L) 70 - 100 mg/dL LAB CHEMISTRY METHOD 07/28/2024 8:47 AM [facility] BUN 45(H) 5 - 25 mg/dL LAB CHEMISTRY METHOD 07/28/2024 8:47 AM [facility] Creatinine 2.36(H) 0.50 - 1.10 mg/dL LAB CHEMISTRY METHOD 07/28/2024 8:47 AM [facility] eGFR 21(L) >=60 mL/min/1. 73m2 LAB CHEMISTRY METHOD 07/28/2024 8:47 AM [facility] Comment:Calculation based on the Chronic Kidney Disease Epidemiology Collaboration (CKD-EPI) equation refit without adjustment for race. BUN/Creatinine Ratio 19.1 LAB CHEMISTRY METHOD 07/28/2024 8:47 AM [facility] Calcium 9.2 8.5 - 10.5 mg/dL LAB CHEMISTRY METHOD 07/28/2024 8:47 AM [facility] Blood Venous blood specimen / Unknown Venipuncture / Unknown 07/28/2024 5:41 AM EST 07/28/2024 8:02 AM EST us Hortencia Mcclellan MD LAB BLOOD ORDERABLES Fin al Result [facility] [address] [place] [address], * (ABNORMAL) Complete blood count (07/28/2024 5:41 AM EST) [facility] WBC 4.1(L) 4.8 - 10.8 K/mcL LAB HEMETOLOGY METHOD 07/28/2024 8:20 AM [facility] RBC 3.00(L) 3.80 - 4.80 M/mcL LAB HEMETOLOGY METHOD 07/28/2024 8:20 AM [facility] Hemoglobin 8.6(L) 11.5 - 16.0 g/dL LAB HEMETOLOGY METHOD 07/28/2024 8:20 AM [facility] Hematocrit 29.9(L) 35.0 - 47.0 % LAB HEMETOLOGY METHOD 07/28/2024 8:20 AM [facility] MCV 99.7(H) 79.0 - 98.0 FL LAB HEMETOLOGY METHOD 07/28/2024 8:20 AM [facility] MCH 28.7 27.0 - 32.0 pcg LAB HEMETOLOGY METHOD 07/28/2024 8:20 AM [facility] MCHC 28.8(L) 32.0 - 37.0 g/dL LAB HEMETOLOGY METHOD 07/28/2024 8:20 AM [facility] RDW 19.6(H) 11.0 - 15.0 % LAB HEMETOLOGY METHOD 07/28/2024 8:20 AM [facility] Platelets 162 130 - 400 K/mcL LAB HEMETOLOGY METHOD 07/28/2024 8:20 AM [facility] MPV 10.5 7.0 - 11.0 FL LAB HEMETOLOGY METHOD 07/28/2024 8:20 AM [facility] NRBC 0.0 <1.0 % LAB HEMETOLOGY METHOD 07/28/2024 8:20 AM EST [facility] NRBC Absolute 0.00 <0.10 K/mcL LAB HEMETOLOGY METHOD 07/28/2024 8:20 AM EST [facility] Blood Venous blood specimen / Unknown Venipuncture / Unknown 07/28/2024 5:41 AM EST 07/28/2024 8:02 AM EST us Hortencia Mcclellan MD LAB BLOOD ORDERABLES Fin al Result [facility] [address] [place] [address], documented in this encounter Visit Diagnoses Diagnosis Type 2 diabetes mellitus without complications (CMS/HCC V24, CMS/HCC V28) Heart failure, unspecified (CMS/HCC V24, CMS/HCC V28) Heart failure, unspecified documented in this encounter Care Teams Microstrategy Architect Relationship Specialty Start Date End Date Amina Burciaga MD [address] [place] [address] PCP - General Hospitalist Medicine 09/11/24 documented as of this encounter
--- OUTSIDE RECORDS SUMMARY | 2025-05-04 06:20 | XMS_ITS | Encounter Summary ---
Author Organization [facility] Address [address] [place] [address] Care Team Providers Care Dusting And Brushing Machine Operator Name Role Phone Amina Burciaga MD Primary Care Provider [phone] Encounter Details Date Type Department Care Team (Latest Contact Info) Description 09/07/[address] [facility] - Main Lab 299 [facility] [place] [address] Amina Burciaga MD [address] [place] [address] Heart failure, unspecified (CMS/HCC V24, CMS/HCC V28); Chronic kidney disease, unspecified; Type 2 diabetes mellitus without complications (CMS/HCC V24, CMS/HCC V28) Social History Tobacco [...] Associated Diagnosis Comments COMPLETE BLOOD COUNT Routine 09/07/2024 6:24 AM EST Heart failure, unspecified (CMS/HCC) Chronic kidney disease, unspecified Type 2 diabetes mellitus without complications (CMS/HCC) HEMOGLOBIN A1C Routine 09/07/2024 6:24 AM EST Heart failure, unspecified (CMS/HCC) Chronic kidney disease, unspecified Type 2 diabetes mellitus without complications (CMS/HCC) COMPREHENSIVE METABOLIC PANEL Routine 09/07/2024 6:24 AM EST Heart failure, unspecified (CMS/HCC) Chronic kidney disease, unspecified Type 2 diabetes mellitus without complications ([facility]) documented in this encounter Results * Hemoglobin A1c (09/07/2024 6:24 AM EST) Pathologist [facility] Hemoglobin A1C 5.1 <6.5 % LAB CHEMISTRY METHOD 09/07/2024 11:11 AM EST [facility] Mean Bld Glu Estim. 100 mg/dL LAB CHEMISTRY METHOD 09/07/2024 11:11 AM [facility] Blood Venous blood specimen / Unknown Venipuncture / Unknown 09/07/2024 6:24 AM EST 09/07/2024 8:12 AM EST Amina Burciaga MD LAB BLOOD ORDERABLES Final Resul t [facility] [address] [place] [address], * (ABNORMAL) Comprehensive metabolic panel (09/07/2024 6:24 AM EST) [facility] Sodium 140 133 - 145 mmol/L LAB CHEMISTRY METHOD 09/07/2024 9:18 AM [facility] Potassium 3.8 3.5 - 5.5 mmol/L LAB CHEMISTRY METHOD 09/07/2024 9:18 AM [facility] Chloride 106 96 - 110 mmol/L LAB CHEMISTRY METHOD 09/07/2024 9:18 AM [facility] CO2 28 21 - 32 mmol/L LAB CHEMISTRY METHOD 09/07/2024 9:18 AM [facility] Anion Gap 6 3 - 11 LAB CHEMISTRY METHOD 09/07/2024 9:18 AM [facility] Glucose 61(L) 70 - 100 mg/dL LAB CHEMISTRY METHOD 09/07/2024 9:18 AM [facility] BUN 59(H) 5 - 25 mg/dL LAB CHEMISTRY METHOD 09/07/2024 9:18 AM [facility] Creatinine 3.13(H) 0.50 - 1.10 mg/dL LAB CHEMISTRY METHOD 09/07/2024 9:18 AM [facility] eGFR 15(L) >=60 mL/min/1. 73m2 LAB CHEMISTRY METHOD 09/07/2024 9:18 AM [facility] Comment:Calculation based on the Chronic Kidney Disease Epidemiology Collaboration (CKD-EPI) equation refit without adjustment for race. BUN/Creatinine Ratio 18.8 LAB CHEMISTRY METHOD 09/07/2024 9:18 AM [facility] Calcium 9.0 8.5 - 10.5 mg/dL LAB CHEMISTRY METHOD 09/07/2024 9:18 AM [facility] AST (SGOT) 17 10 - 42 unit/L LAB CHEMISTRY METHOD 09/07/2024 9:18 AM [facility] ALT (SGPT) 20 10 - 60 unit/L LAB CHEMISTRY METHOD 09/07/2024 9:18 AM [facility] Alkaline Phosphatase 60 42 - 121 unit/L LAB CHEMISTRY METHOD 09/07/2024 9:18 AM [facility] Total Protein 6.9 6.0 - 8.0 g/dL LAB CHEMISTRY METHOD 09/07/2024 9:18 AM [facility] Albumin 3.0(L) 3.2 - 5.0 g/dL LAB CHEMISTRY METHOD 09/07/2024 9:18 AM [facility] Total Bilirubin 0.5 0.0 - 1.4 mg/dL LAB CHEMISTRY METHOD 09/07/2024 9:18 AM [facility] Blood Venous blood specimen / Unknown Venipuncture / Unknown 09/07/2024 6:24 AM EST 09/07/2024 8:12 AM EST us Amina Burciaga MD LAB BLOOD ORDERABLES Final Resul t [facility] [address] [place] [address], * (ABNORMAL) Complete blood count (09/07/2024 6:24 AM EST) [facility] Signature WBC 4.7(L) 4.8 - 10.8 K/mcL LAB HEMETOLOGY METHOD 09/07/2024 8:53 AM [facility] RBC 3.00(L) 3.80 - 4.80 M/mcL LAB HEMETOLOGY METHOD 09/07/2024 8:53 AM [facility] Hemoglobin 8.9(L) 11.5 - 16.0 g/dL LAB HEMETOLOGY METHOD 09/07/2024 8:53 AM [facility] Hematocrit 30.6(L) 35.0 - 47.0 % LAB HEMETOLOGY METHOD 09/07/2024 8:53 AM [facility] MCV 101.7(H) 79.0 - 98.0 FL LAB HEMETOLOGY METHOD 09/07/2024 8:53 AM [facility] MCH 29.6 27.0 - 32.0 pcg LAB HEMETOLOGY METHOD 09/07/2024 8:53 AM [facility] MCHC 29.1(L) 32.0 - 37.0 g/dL LAB HEMETOLOGY METHOD 09/07/2024 8:53 AM [facility] RDW 20.1(H) 11.0 - 15.0 % LAB HEMETOLOGY METHOD 09/07/2024 8:53 AM [facility] Platelets 196 130 - 400 K/mcL LAB HEMETOLOGY METHOD 09/07/2024 8:53 AM [facility] MPV 10.0 7.0 - 11.0 FL LAB HEMETOLOGY METHOD 09/07/2024 8:53 AM [facility] NRBC 0.0 <1.0 % LAB HEMETOLOGY METHOD 09/07/2024 8:53 AM EST [facility] NRBC Absolute 0.00 <0.10 K/mcL LAB HEMETOLOGY METHOD 09/07/2024 8:53 AM EST [facility] Blood Venous blood specimen / Unknown Venipuncture / Unknown 09/07/2024 6:24 AM EST 09/07/2024 8:12 AM EST us Amina Burciaga MD LAB BLOOD ORDERABLES Final Resul t [facility] [address] [place] [address], documented in this encounter Visit Diagnoses Diagnosis Heart failure, unspecified (CMS/HCC V24, CMS/HCC V28) Heart failure, unspecified Chronic kidney disease, unspecified Type 2 diabetes mellitus without complications (CMS/HCC V24, CMS/HCC V28) documented in this encounter Care Teams Dusting And Brushing Machine Operator Relationship Specialty Start Date End Date Amina Burciaga MD [address] [place] [address] PCP - General Hospitalist Medicine 09/11/24 documented as of this encounter
--- OUTSIDE RECORDS SUMMARY | 2025-05-04 06:20 | XMS_ITS | Encounter Summary ---
Author Organization [facility] [place] [facility], Address [address] [place] [address] Phone Care Team Providers Care Foundry Equipment Mechanic Name Role Phone Dandre Chavez MD Primary Care Provider [phone] Encounter Details Date Type Department Care Team (Late st Contact Info) Description 01/14/2023 Documentation Only [facility], [address] [place] [address] Melissa Delgadillo [address] [place] [phone] Social History Tobacco Use Types Packs/Day Years [...] on filedocumented in this encounter Care Teams Foundry Equipment Mechanic Relationship Specialty Start Date End Date Dandre Chavez MD [address] [place] [address], [address] [place], [place] PCP - General 07/07/19 documented as of this encounter
--- OUTSIDE RECORDS SUMMARY | 2025-05-04 06:20 | XMS_ITS | Encounter Summary ---
Author Organization [facility] Address [address] [place] [address] Care Team Providers Care Behaviorist Name Role Phone Amina Burciaga MD Primary Care Provider [phone] Encounter Details Date Type Department Care Team (Latest Contact Info) Description 09/11/[address] [facility] - Main Lab 299 [facility] [place] [address] Amina Burciaga MD [address] [place] [address] Other termite control technician (current) drug therapy; Type 2 diabetes mellitus without complications (CMS/HCC [...] Associated Diagnosis Comments COMPLETE BLOOD COUNT Routine 09/11/2024 9:47 AM EST Other termite control technician (current) drug therapy Type 2 diabetes mellitus without complications (CMS/HCC) Heart failure, unspecified (CMS/HCC) MAGNESIUM Routine 09/11/2024 9:47 AM EST Other [facility] (current) drug therapy Type 2 diabetes mellitus without complications (CMS/HCC) Heart failure, unspecified (CMS/HCC) BASIC METABOLIC PANEL Routine 09/11/2024 9:47 AM EST Other [facility] (current) drug therapy Type 2 diabetes mellitus without complications (CMS/HCC) Heart failure, unspecified (CMS/HCC) documented in this encounter Results * Magnesium (09/11/2024 9:47 AM EST) [facility] Magnesium 2.1 1.9 - 2.6 mg/dL LAB CHEMISTRY METHOD 09/11/2024 12:45 PM [facility] Blood Venous blood specimen / Unknown Venipuncture / Unknown 09/11/2024 9:47 AM EST 09/11/2024 11:29 AM EST mAina Burciaga MD LAB BLOOD ORDERABLES Final Resul t [facility] [address] [place] [address], * (ABNORMAL) Basic metabolic panel (09/11/2024 9:47 AM EST) [facility] Sodium 137 133 - 145 mmol/L LAB CHEMISTRY METHOD 09/11/2024 12:54 PM [facility] Potassium 3.9 3.5 - 5.5 mmol/L LAB CHEMISTRY METHOD 09/11/2024 12:54 PM [facility] Chloride 103 96 - 110 mmol/L LAB CHEMISTRY METHOD 09/11/2024 12:54 PM [facility] CO2 26 21 - 32 mmol/L LAB CHEMISTRY METHOD 09/11/2024 12:54 PM [facility] Anion Gap 8 3 - 11 LAB CHEMISTRY METHOD 09/11/2024 12:54 PM [facility] Glucose 112(H) 70 - 100 mg/dL LAB CHEMISTRY METHOD 09/11/2024 12:54 PM [facility] BUN 50(H) 5 - 25 mg/dL LAB CHEMISTRY METHOD 09/11/2024 12:54 PM [facility] Creatinine 2.73(H) 0.50 - 1.10 mg/dL LAB CHEMISTRY METHOD 09/11/2024 12:54 PM [facility] eGFR 17(L) >=60 mL/min/1. 73m2 LAB CHEMISTRY METHOD 09/11/2024 12:54 PM [facility] Comment:Calculation based on the Chronic Kidney Disease Epidemiology Collaboration (CKD-EPI) equation refit without adjustment for race. BUN/Creatinine Ratio 18.3 LAB CHEMISTRY METHOD 09/11/2024 12:54 PM [facility] Calcium 8.6 8.5 - 10.5 mg/dL LAB CHEMISTRY METHOD 09/11/2024 12:54 PM [facility] Blood Venous blood specimen / Unknown Venipuncture / Unknown 09/11/2024 9:47 AM EST 09/11/2024 11:29 AM EST Amina Burciaga MD LAB BLOOD ORDERABLES Final Resul t [facility] [address] [place] [address], * (ABNORMAL) Complete blood count (09/11/2024 9:47 AM EST) WBC 6.9 4.8 - 10.8 K/mcL LAB HEMETOLOGY METHOD 09/11/2024 11:47 AM [facility] RBC 3.10(L) 3.80 - 4.80 M/mcL LAB HEMETOLOGY METHOD 09/11/2024 11:47 AM [facility] Hemoglobin 9.0(L) 11.5 - 16.0 g/dL LAB HEMETOLOGY METHOD 09/11/2024 11:47 AM [facility] Hematocrit 31.6(L) 35.0 - 47.0 % LAB HEMETOLOGY METHOD 09/11/2024 11:47 AM [facility] MCV 102.6(H) 79.0 - 98.0 FL LAB HEMETOLOGY METHOD 09/11/2024 11:47 AM EST [facility] MCH 29.2 27.0 - 32.0 pcg LAB HEMETOLOGY METHOD 09/11/2024 11:47 AM [facility] MCHC 28.5(L) 32.0 - 37.0 g/dL LAB HEMETOLOGY METHOD 09/11/2024 11:47 AM EST [facility] RDW 20.6(H) 11.0 - 15.0 % LAB HEMETOLOGY METHOD 09/11/2024 11:47 AM EST [facility] Platelets 180 130 - 400 K/mcL LAB HEMETOLOGY METHOD 09/11/2024 11:47 AM [facility] MPV 9.9 7.0 - 11.0 FL LAB HEMETOLOGY METHOD 09/11/2024 11:47 AM EST [facility] NRBC 0.0 <1.0 % LAB HEMETOLOGY METHOD 09/11/2024 11:47 AM [facility] NRBC Absolute 0.00 <0.10 K/mcL LAB HEMETOLOGY METHOD 09/11/2024 11:47 AM [facility] Blood Venous blood specimen / Unknown Venipuncture / Unknown 09/11/2024 9:47 AM EST 09/11/2024 11:29 AM EST us Amina Burciaga MD LAB BLOOD ORDERABLES Final Resul t [facility] [address] [place] [address], documented in this encounter Visit Diagnoses Diagnosis Other [facility] (current) drug therapy Type 2 diabetes mellitus without complications (CMS/HCC V24, CMS/HCC V28) Heart failure, unspecified (CMS/HCC V24, CMS/HCC V28) Heart failure, unspecified documented in this encounter Care Teams Behaviorist Relationship Specialty Start Date End Date Amina Burciaga MD [address] [place] [address] PCP - General Hospitalist Medicine 09/11/24 documented as of this encounter
--- OUTSIDE RECORDS SUMMARY | 2025-05-04 06:20 | XMS_ITS | Encounter Summary ---
Author Organization [facility] [place] [facility], Address [address] [place] [address] Phone Care Team Providers Care Accelerator Technician Name Role Phone Dandre Chavez MD Primary Care Provider [phone] Encounter Details Date Type Department Care Team (Late st Contact Info) Description 10/30/2022 Documentation Only [facility], [address] [place] [address] Melissa Delgadillo [address] [place] [phone] Social History Tobacco Use Types Packs/Day Years [...] on filedocumented in this encounter Care Teams Accelerator Technician Relationship Specialty Start Date End Date Dandre Chavez MD [address] [place] [address], [address] [place], [place] PCP - General 07/07/19 documented as of this encounter
--- OUTSIDE RECORDS SUMMARY | 2025-05-04 06:20 | XMS_ITS | Encounter Summary ---
Author Organization [facility] Address [address] [place] [address] Care Team Providers Care Electrical Cad Designer Name Role Phone Amina Burciaga MD Primary Care Provider [phone] Encounter Details Date Type Department Care Team (Late st Contact Info) Description 07/10/[address] [facility] - Main Lab [address] [facility] [place] [address] Lloyd Jernigan MD [address] [place] [address] Unspecified dementia, unspecified severity, without behavioral disturbance, psychotic disturbance, mood disturbance, and anxiety (CMS/HCC V24, CMS/HCC V28) Social History Tobacco [...] Associated Diagnosis Comments COMPLETE BLOOD COUNT Routine 07/10/2024 6:29 AM EST Unspecified dementia, unspecified severity, without behavioral disturbance, psychotic disturbance, mood disturbance, and anxiety (CMS/HCC) HEMOGLOBIN A1C Routine 07/10/2024 6:29 AM EST Unspecified dementia, unspecified severity, without behavioral disturbance, psychotic disturbance, mood disturbance, and anxiety (CMS/HCC) BASIC METABOLIC PANEL Routine 07/10/2024 6:29 AM EST Unspecified dementia, unspecified severity, without behavioral disturbance, psychotic disturbance, mood disturbance, and anxiety (CMS/HCC) documented in this encounter Results * (ABNORMAL) Basic metabolic panel (07/10/2024 6:29 AM EST) Sodium 139 133 - 145 mmol/L LAB CHEMISTRY METHOD 07/10/2024 9:[address] [facility] Potassium 4.4 3.5 - 5.5 mmol/L LAB CHEMISTRY METHOD 07/10/2024 9:[address] [facility] Chloride 103 96 - 110 mmol/L LAB CHEMISTRY METHOD 07/10/2024 9:[address] [facility] CO2 31 21 - 32 mmol/L LAB CHEMISTRY METHOD 07/10/2024 9:[address] [facility] Anion Gap 5 3 - 11 LAB CHEMISTRY METHOD 07/10/2024 9:[address] [facility] Glucose 115(H) 70 - 100 mg/dL LAB CHEMISTRY METHOD 07/10/2024 9:[address] [facility] BUN 62(H) 5 - 25 mg/dL LAB CHEMISTRY METHOD 07/10/2024 9:[address] [facility] Creatinine 2.86(H) 0.50 - 1.10 mg/dL LAB CHEMISTRY METHOD 07/10/2024 9:[address] [facility] eGFR 16(L) >=60 mL/min/1. 73m2 LAB CHEMISTRY METHOD 07/10/2024 9:[address] [facility] Comment:Calculation based on the Chronic Kidney Disease Epidemiology Collaboration (CKD-EPI) equation refit without adjustment for race. BUN/Creatinine Ratio 21.7 LAB CHEMISTRY METHOD 07/10/2024 9:[address] [facility] Calcium 9.3 8.5 - 10.5 mg/dL LAB CHEMISTRY METHOD 07/10/2024 9:[address] [facility] Blood Venous blood specimen / Unknown Venipuncture / Unknown 07/10/2024 6:29 AM EST 07/10/2024 9:00 AM EST us Lloyd Jernigan MD LAB BLOOD ORDERABLES Final R esult [facility] [address] [place] [address], * (ABNORMAL) Complete blood count (07/10/2024 6:29 AM EST) WBC 5.3 4.8 - 10.8 K/mcL LAB HEMETOLOGY METHOD 07/10/2024 9:[address] [facility] RBC 3.20(L) 3.80 - 4.80 M/mcL LAB HEMETOLOGY METHOD 07/10/2024 9:[address] [facility] Hemoglobin 8.9(L) 11.5 - 16.0 g/dL LAB HEMETOLOGY METHOD 07/10/2024 9:[address] [facility] Hematocrit 32.0(L) 35.0 - 47.0 % LAB HEMETOLOGY METHOD 07/10/2024 9:[address] [facility] MCV 101.6(H) 79.0 - 98.0 FL LAB HEMETOLOGY METHOD 07/10/2024 9:[address] [facility] MCH 28.3 27.0 - 32.0 pcg LAB HEMETOLOGY METHOD 07/10/2024 9:[address] [facility] MCHC 27.8(L) 32.0 - 37.0 g/dL LAB HEMETOLOGY METHOD 07/10/2024 9:[address] [facility] RDW 20.3(H) 11.0 - 15.0 % LAB HEMETOLOGY METHOD 07/10/2024 9:[address] [facility] Platelets 239 130 - 400 K/mcL LAB HEMETOLOGY METHOD 07/10/2024 9:[address] [facility] MPV 10.2 7.0 - 11.0 FL LAB HEMETOLOGY METHOD 07/10/2024 9:[address] [facility] NRBC 0.0 <1.0 % LAB HEMETOLOGY METHOD 07/10/2024 9:[address] [facility] NRBC Absolute 0.00 <0.10 K/mcL LAB HEMETOLOGY METHOD 07/10/2024 9:[address] [facility] Blood Venous blood specimen / Unknown Venipuncture / Unknown 07/10/2024 6:29 AM EST 07/10/2024 9:00 AM EST Lloyd Jernigan MD LAB BLOOD ORDERABLES Final R esult Performing Organization Address City/[facility]/ZIP Co de Phone Number [facility] [address] [place] [address], [place] [phone] * Hemoglobin A1c (07/10/2024 6:29 AM EST) Hemoglobin A1C 5.7 <6.5 % LAB CHEMISTRY METHOD 07/10/2024 1:[address] [facility] Mean Bld Glu Estim. 117 mg/dL LAB CHEMISTRY METHOD 07/10/2024 1:[address] [facility] Blood Venous blood specimen / Unknown Venipuncture / Unknown 07/10/2024 6:29 AM EST 07/10/2024 9:00 AM EST Lloyd Jernigan MD LAB BLOOD ORDERABLES Final R esult [facility] [address] [place] [address], [place] [phone] documented in this encounter Visit Diagnoses Diagnosis Unspecified dementia, unspecified severity, without behavioral disturbance, psychotic disturbance, mood disturbance, and anxiety (CMS/HCC V24, CMS/HCC V28) documented in this encounter Care Teams Electrical Cad Designer Relationship Specialty Start Date End Date Amina Burciaga MD [address] [place] [address] PCP - General Hospitalist Medicine 09/11/24 documented as of this encounter
--- OUTSIDE RECORDS SUMMARY | 2025-05-04 06:20 | XMS_ITS | Encounter Summary ---
Author Organization [facility] [place] [facility], Address [address] [place] [address] Phone Care Team Providers Care Director Of Head Start Name Role Phone Dandre Chavez MD Primary Care Provider [phone] Encounter Details Date Type Department Care Team (Late st Contact Info) Description 09/07/2022 Documentation Only [facility], [address] [place] [address] Faina Villegas PA Social History Tobacco Use [...] filedocumented in this encounter Care Teams Director Of Head Start Relationship Specialty Start Date End Date Dandre Chavez MD [address] [place] [address], [address] [place], [place] PCP - General 07/07/19 documented as of this encounter
--- OUTSIDE RECORDS SUMMARY | 2025-05-04 06:20 | XMS_ITS | Encounter Summary ---
Author Organization [facility] Address [address] [place] [address] Care Team Providers Care Assistant Art Director Name Role Phone Amina Burciaga MD Primary Care Provider [phone] Encounter Details Date Type Department Care Team (Late st Contact Info) Description 07/23/2024 Lab Requisition [facility] - Main Lab [address] [place] [address] Hortencia Mcclellan MD [address] [id number] Chronic kidney disease, unspecified; Type 2 diabetes [...] Procedure Name Priority Date/Time Associated Diagnosis Comments BASIC METABOLIC PANEL Routine 07/23/2024 5:52 AM EST Chronic kidney disease, unspecified Type 2 diabetes mellitus without complications (CMS/HCC) documented in this encounter Results * (ABNORMAL) Basic metabolic panel (07/23/2024 5:52 AM EST) Sodium 144 133 - 145 mmol/L LAB CHEMISTRY METHOD 07/23/2024 9:13 AM EST [facility] Potassium 3.8 3.5 - 5.5 mmol/L LAB CHEMISTRY METHOD 07/23/2024 9:13 AM EST [facility] Chloride 111(H) 96 - 110 mmol/L LAB CHEMISTRY METHOD 07/23/2024 9:13 AM [facility] CO2 27 21 - 32 mmol/L LAB CHEMISTRY METHOD 07/23/2024 9:13 AM [facility] Anion Gap 6 3 - 11 LAB CHEMISTRY METHOD 07/23/2024 9:13 AM [facility] Glucose 64(L) 70 - 100 mg/dL LAB CHEMISTRY METHOD 07/23/2024 9:13 AM [facility] BUN 62(H) 5 - 25 mg/dL LAB CHEMISTRY METHOD 07/23/2024 9:13 AM [facility] Creatinine 2.70(H) 0.50 - 1.10 mg/dL LAB CHEMISTRY METHOD 07/23/2024 9:13 AM [facility] eGFR 18(L) >=60 mL/min/1. 73m2 LAB CHEMISTRY METHOD 07/23/2024 9:13 AM [facility] Comment:Calculation based on the Chronic Kidney Disease Epidemiology Collaboration (CKD-EPI) equation refit without adjustment for race. BUN/Creatinine Ratio 23.0 LAB CHEMISTRY METHOD 07/23/2024 9:13 AM [facility] Calcium 9.2 8.5 - 10.5 mg/dL LAB CHEMISTRY METHOD 07/23/2024 9:13 AM [facility] Blood Venous blood specimen / Unknown Venipuncture / Unknown 07/23/2024 5:52 AM EST 07/23/2024 8:17 AM EST us Hortencia Mcclellan MD LAB BLOOD ORDERABLES Fin al Result [facility] [address] [place] [address], documented in this encounter Visit Diagnoses Diagnosis Chronic kidney disease, unspecified Type 2 diabetes mellitus without complications (CMS/HCC V24, CMS/HCC V28) documented in this encounter Care Teams Assistant Art Director Relationship Specialty Start Date End Date Amina Burciaga MD [address] [place] [address] PCP - General Hospitalist Medicine 09/11/24 documented as of this encounter
--- OUTSIDE RECORDS SUMMARY | 2025-05-04 06:20 | XMS_ITS | Encounter Summary ---
Author Organization [facility] Address [address] [place] [address] Care Team Providers Care Career Services Representative Name Role Phone Amina Burciaga MD Primary Care Provider [phone] Encounter Details Date Type Department Care Team (Late st Contact Info) Description 07/20/2024 Lab Requisition [facility] - Main Lab [address] [facility] [place] [address] Hortencia Mcclellan MD 819 [facility] 1 [place], [place] [id number] Type 2 diabetes mellitus without complications (CMS/HCC [...] Associated Diagnosis Comments COMPLETE BLOOD COUNT Routine 07/21/2024 5:53 AM EST Type 2 diabetes mellitus without complications (CMS/HCC) Heart failure, unspecified (CMS/HCC) BASIC METABOLIC PANEL Routine 07/21/2024 5:53 AM EST Type 2 diabetes mellitus without complications (CMS/HCC) Heart failure, unspecified (CMS/HCC) documented in this encounter Results * (ABNORMAL) Basic metabolic panel (07/21/2024 5:53 AM EST) Sodium 140 133 - 145 mmol/L LAB CHEMISTRY METHOD 07/21/2024 8:50 AM [facility] Potassium 4.5 3.5 - 5.5 mmol/L LAB CHEMISTRY METHOD 07/21/2024 8:50 AM [facility] Chloride 108 96 - 110 mmol/L LAB CHEMISTRY METHOD 07/21/2024 8:50 AM [facility] CO2 27 21 - 32 mmol/L LAB CHEMISTRY METHOD 07/21/2024 8:50 AM [facility] Anion Gap 5 3 - 11 LAB CHEMISTRY METHOD 07/21/2024 8:50 AM [facility] Glucose 71 70 - 100 mg/dL LAB CHEMISTRY METHOD 07/21/2024 8:50 AM [facility] BUN 68(H) 5 - 25 mg/dL LAB CHEMISTRY METHOD 07/21/2024 8:50 AM [facility] Creatinine 3.00(H) 0.50 - 1.10 mg/dL LAB CHEMISTRY METHOD 07/21/2024 8:50 AM [facility] eGFR 16(L) >=60 mL/min/1. 73m2 LAB CHEMISTRY METHOD 07/21/2024 8:50 AM [facility] Comment:Calculation based on the Chronic Kidney Disease Epidemiology Collaboration (CKD-EPI) equation refit without adjustment for race. BUN/Creatinine Ratio 22.7 LAB CHEMISTRY METHOD 07/21/2024 8:50 AM [facility] Calcium 9.1 8.5 - 10.5 mg/dL LAB CHEMISTRY METHOD 07/21/2024 8:50 AM [facility] Blood Venous blood specimen / Unknown Venipuncture / Unknown 07/21/2024 5:53 AM EST 07/21/2024 7:55 AM EST us Hortencia Mcclellan MD LAB BLOOD ORDERABLES Fin al Result [facility] [address] [place] [address], * (ABNORMAL) Complete blood count (07/21/2024 5:53 AM EST) [facility] WBC 5.0 4.8 - 10.8 K/mcL LAB HEMETOLOGY METHOD 07/21/2024 8:26 AM [facility] RBC 2.90(L) 3.80 - 4.80 M/mcL LAB HEMETOLOGY METHOD 07/21/2024 8:26 AM [facility] Hemoglobin 8.2(L) 11.5 - 16.0 g/dL LAB HEMETOLOGY METHOD 07/21/2024 8:26 AM [facility] Hematocrit 29.0(L) 35.0 - 47.0 % LAB HEMETOLOGY METHOD 07/21/2024 8:26 AM [facility] MCV 100.7(H) 79.0 - 98.0 FL LAB HEMETOLOGY METHOD 07/21/2024 8:26 AM [facility] MCH 28.5 27.0 - 32.0 pcg LAB HEMETOLOGY METHOD 07/21/2024 8:26 AM [facility] MCHC 28.3(L) 32.0 - 37.0 g/dL LAB HEMETOLOGY METHOD 07/21/2024 8:26 AM [facility] RDW 19.2(H) 11.0 - 15.0 % LAB HEMETOLOGY METHOD 07/21/2024 8:26 AM [facility] Platelets 223 130 - 400 K/mcL LAB HEMETOLOGY METHOD 07/21/2024 8:26 AM [facility] MPV 10.0 7.0 - 11.0 FL LAB HEMETOLOGY METHOD 07/21/2024 8:26 AM [facility] NRBC 0.0 <1.0 % LAB HEMETOLOGY METHOD 07/21/2024 8:26 AM EST [facility] NRBC Absolute 0.00 <0.10 K/mcL LAB HEMETOLOGY METHOD 07/21/2024 8:26 AM EST [facility] Blood Venous blood specimen / Unknown Venipuncture / Unknown 07/21/2024 5:53 AM EST 07/21/2024 7:55 AM EST us Hortencia Mcclellan MD LAB BLOOD ORDERABLES Fin al Result [facility] [address] [place] [address], documented in this encounter Visit Diagnoses Diagnosis Type 2 diabetes mellitus without complications (CMS/HCC V24, CMS/HCC V28) Heart failure, unspecified (CMS/HCC V24, CMS/HCC V28) Heart failure, unspecified documented in this encounter Care Teams Career Services Representative Relationship Specialty Start Date End Date Amina Burciaga MD [address] [place] [address] PCP - General Hospitalist Medicine 09/11/24 documented as of this encounter
--- OUTSIDE RECORDS SUMMARY | 2025-05-04 06:21 | XMS_ITS | Encounter Summary ---
Author Organization [facility] Address [address] [place] [address] Phone Care Team Providers Care Animal Keeper Head Name Role Phone Dandre Chavez MD Primary Care Provider [phone] Miguel Enciso MD Unavailable [phone] Encounter Details Date Type Department Care Team (Late st Contact Info) Description 04/03/2022 Procedure Pass [facility] [address] [place] [address] Social History Tobacco Use Types Packs/Day Years [...] on filedocumented in this encounter Care Teams Animal Keeper Head Relationship Specialty Start Date End Date Dandre Chavez MD [address] [id number] PCP - General 09/05/17 Miguel Enciso MD [address] [place] [address], [address] [place], [place] [phone] Cardiology 05/28/24 documented as of this encounter Additional Source Comments The information contained in this document represents components of the legal health record. It is not the complete legal health record.[facility]
--- OUTSIDE RECORDS SUMMARY | 2025-05-04 06:21 | XMS_ITS | Encounter Summary ---
Author Organization [facility], Address [address] [place] [address] Phone Care Team Providers Care Pin Setter Name Role Phone Dandre Chavez MD Primary Care Provider [phone] Encounter Details Date Type Department Care Team (Late st Contact Info) Description 02/09/2022 Documentation Only [facility], [address] [place] [address] Faina Villegas PA Social History Tobacco Use [...] on filedocumented in this encounter Care Teams Pin Setter Relationship Specialty Start Date End Date Dandre Chavez MD [address] [place] [address], [address] [place], [place] PCP - General 07/07/19 documented as of this encounter
--- OUTSIDE RECORDS SUMMARY | 2025-05-04 06:21 | XMS_ITS | Encounter Summary ---
Author Organization [facility] Address [address] [place] [address] Phone Care Team Providers Care Picker Packer Name Role Phone Dandre Chavez MD Primary Care Provider [phone] Miguel Enciso MD Unavailable [phone] Encounter Details Date Type Department Care Team (Late st Contact Info) Description 12/21/2022 Procedure Pass [facility] [address] [phone] Social History Tobacco Use Types Packs/Day Years [...] on filedocumented in this encounter Care Teams Picker Packer Relationship Specialty Start Date End Date Dandre Chavez MD [address] [place] [id number] PCP - General 09/05/17 Miguel Enciso MD [address] [facility], [address] [place], [place] [phone] Cardiology 05/28/24 documented as of this encounter Additional Source Comments The information contained in this document represents components of the legal health record. It is not the complete legal health record.[facility]
--- OUTSIDE RECORDS SUMMARY | 2025-05-04 06:21 | XMS_ITS | Encounter Summary ---
Author Organization [facility], Address [address] [place] [address] Phone Care Team Providers Care Steam Locomotive Firer/Fireman Name Role Phone Dandre Chavez MD Primary Care Provider [phone] Encounter Details Date Type Department Care Team (Late st Contact Info) Description 10/12/2021 Documentation Only [facility], [address] [place] [address] Faina Villegas PA Social History Tobacco Use [...] on filedocumented in this encounter Care Teams Steam Locomotive Firer/Fireman Relationship Specialty Start Date End Date Dandre Chavez MD [address] [place] [address], [address] [place], [place] PCP - General 07/07/19 documented as of this encounter
--- OUTSIDE RECORDS SUMMARY | 2025-05-04 06:21 | XMS_ITS | Encounter Summary ---
Author Organization [facility], Address [address] [place] [address] Phone Care Team Providers Care Operator Automated Process Name Role Phone Dandre Chavez MD Primary Care Provider [phone] Encounter Details Date Type Department Care Team (Late st Contact Info) Description 02/08/2022 Documentation Only [facility], [address] [place] [address] Faina Villegas PA Social History Tobacco Use [...] on filedocumented in this encounter Care Teams Operator Automated Process Relationship Specialty Start Date End Date Dandre Chavez MD [address] [place] [address], [address] [place] PCP - General 07/07/19 documented as of this encounter
--- OUTSIDE RECORDS SUMMARY | 2025-05-04 06:21 | XMS_ITS | Encounter Summary ---
Author Organization [facility], Address [address] [place] [address] Phone Care Team Providers Care Camp Housekeeper Name Role Phone Dandre Chavez MD Primary Care Provider Encounter Details Date Type Department Care Team (Late st Contact Info) Description 10/10/2021 Documentation Only [facility], [address] [place] [address] Faina Villegas PA Social History Tobacco Use [...] on filedocumented in this encounter Care Teams Camp Housekeeper Relationship Specialty Start Date End Date Dandre Chavez MD [address] [place] [address], [address] [place], [place] PCP - General 07/07/19 documented as of this encounter
--- OUTSIDE RECORDS SUMMARY | 2025-05-04 06:21 | XMS_ITS | Encounter Summary ---
Author Organization [facility] Address [address] [place] [address] Phone Care Team Providers Care Hand Spring Repairer Name Role Phone Dandre Chavez MD Primary Care Provider [phone] Miguel Enciso MD Unavailable [phone] Encounter Details Date Type Department Care Team (Late st Contact Info) Description 08/18/2021 Procedure Pass Echo Lab [address] [id number] Social History Tobacco Use Types Packs/Day Years [...] on filedocumented in this encounter Care Teams Hand Spring Repairer Relationship Specialty Start Date End Date Dandre Chavez MD [address] [place] [id number] PCP - General 09/05/17 Miguel Enciso MD [address] [place] [address], [address] [place], [place] [phone] Cardiology 05/28/24 documented as of this encounter Additional Source Comments The information contained in this document represents components of the legal health record. It is not the complete legal health record.[facility]
--- OUTSIDE RECORDS SUMMARY | 2025-05-04 06:21 | XMS_ITS | Encounter Summary ---
Author Organization [facility], Address [address] [place] [address] Phone Care Team Providers Care Behaviour Support Teacher Name Role Phone Dandre Chavez MD Primary Care Provider [phone] Encounter Details Date Type Department Care Team (Late st Contact Info) Description 02/09/2022 Documentation Only [facility], [address] [place] [address] Faina Villegas PA Social History Tobacco Use [...] on filedocumented in this encounter Care Teams Behaviour Support Teacher Relationship Specialty Start Date End Date Dandre Chavez MD [address] [place] [address], [address] [place], [place] PCP - General 07/07/19 documented as of this encounter
--- OUTSIDE RECORDS SUMMARY | 2025-05-04 06:21 | XMS_ITS | Encounter Summary ---
Author Organization [facility] Address [address] [place] [address] Phone Care Team Providers Care Bag Washer Name Role Phone Dandre Chaevz MD Primary Care Provider [phone] Miguel Enciso MD Unavailable [phone] Encounter Details Date Type Department Care Team (Late st Contact Info) Description 12/20/2022 Procedure Pass Non-Invasive Cardiology [address] [place], [place] [phone] Social History Tobacco Use Types Packs/Day Years [...] on filedocumented in this encounter Care Teams Bag Washer Relationship Specialty Start Date End Date Dandre Chavez MD [address] [place] [id number] PCP - General 09/05/17 Miguel Enciso MD [address] [place] [address], [address] [place], [place] [phone] Cardiology 05/28/24 documented as of this encounter Additional Source Comments The information contained in this document represents components of the legal health record. It is not the complete legal health record.[facility]
--- OUTSIDE RECORDS SUMMARY | 2025-05-04 06:21 | XMS_ITS | Encounter Summary ---
Author Organization [facility] Address [address] [place] [address] Phone Care Team Providers Care Esters And Emulsifiers Supervisor Name Role Phone Dandre Chavez MD Primary Care Provider [phone] Miguel Enciso MD Unavailable [phone] Encounter Details Date Type Department Care Team (Late st Contact Info) Description 09/18/2019 Ancillary Orders [facility] [address] Floor [place], [place] [phone] Miguel Enciso MD [address] [place] [address], [address] [place], [place] [phone] [email or web address] PVD (peripheral vascular disease) Social History Tobacco Use Types Packs/Day Years [...] documented as of this encounter Results * US Lower Extremity Arteries (JENN) Physio Limited Bilat (09/18/2019 2:11 PM EST) Anatomical Region Laterality Modality Ultrasound Narrative 09/21/2019 4:22 PM EST See scanned document. Procedure Note Miguel Enciso MD - 09/21/2019 See scanned document. us Miguel Enciso MD CV US VASCULAR Final Resul t documented in this encounter Visit Diagnoses Diagnosis PAD (peripheral artery disease) Unspecified peripheral vascular disease PVD (peripheral vascular disease) Unspecified peripheral vascular disease PVD (peripheral vascular disease) Unspecified peripheral vascular disease documented in this encounter Care Teams Esters And Emulsifiers Supervisor Relationship Specialty Start Date End Date Dandre Chavez MD [address] [place] [address] PCP - General 09/05/17 Miguel Enciso MD [address] [place] [address] [address] [place] [address] Cardiology 05/28/24 documented as of this encounter Additional Source Comments The information contained in this document represents components of the legal health record. It is not the complete legal health record.[facility]
--- OUTSIDE RECORDS SUMMARY | 2025-05-04 06:21 | XMS_ITS | Encounter Summary ---
Author Organization [facility] Address [address] [place], [place] [address] [place] [address] Phone Care Team Providers Care Card Cutter Helper Name Role Phone Dandre Chavez MD Primary Care Provider [phone] Miguel Enciso MD Unavailable [phone] Encounter Details Date Type Department Care Team (Late st Contact Info) Description 07/01/2024 Procedure Pass [facility] Cardiology Referral Images [address] [facility] [address] [place] [address] Social History Tobacco Use Types Packs/Day Years [...] on filedocumented in this encounter Care Teams Card Cutter Helper Relationship Specialty Start Date End Date Dandre Chavez MD [address] [place] [address] PCP - General 09/05/17 Miguel Enciso MD [address] [place] [address] [email or web address] Cardiology 05/28/24 documented as of this encounter Additional Source Comments The information contained in this document represents components of the legal health record. It is not the complete legal health record.[facility]
--- OUTSIDE RECORDS SUMMARY | 2025-05-04 06:21 | XMS_ITS | Encounter Summary ---
Author Organization [facility], Address [address] [place] [address] Phone Care Team Providers Care Family Law Attorney Name Role Phone Dandre Chavez MD Primary Care Provider [phone] Encounter Details Date Type Department Care Team (Late st Contact Info) Description 09/25/2021 Documentation Only [facility], [address] [place] [address] Faina Villegas PA Social History Tobacco Use [...] on filedocumented in this encounter Care Teams Family Law Attorney Relationship Specialty Start Date End Date Dandre Chavez MD [address] [place] [address], [address] [place], [place] PCP - General 07/07/19 documented as of this encounter
--- OUTSIDE RECORDS SUMMARY | 2025-05-04 06:21 | XMS_ITS | Encounter Summary ---
Author Organization [facility] Address [address] [place], [place] [address] [place] [address] Phone Care Team Providers Care Pharmacy Technician Infusion Name Role Phone Dandre Chavez MD Primary Care Provider [phone] Miguel Enciso MD Unavailable [phone] Encounter Details Date Type Department Care Team (Late st Contact Info) Description 07/01/2024 Procedure Pass [facility] Cardiology Referral Images [address] [facility] [address] [place] [address] Social History Tobacco Use Types Packs/Day Years [...] on filedocumented in this encounter Care Teams Pharmacy Technician Infusion Relationship Specialty Start Date End Date Dandre Chavez MD [address] [place] [address] PCP - General 09/05/17 Miguel Enciso MD [address] [place] [address] [email or web address] Cardiology 05/28/24 documented as of this encounter Additional Source Comments The information contained in this document represents components of the legal health record. It is not the complete legal health record.[facility]
[2025-05-04 06:23] LABS: Hematocrit 30.1 % (37.0-47.0); Hemoglobin 8.7 g/dl (12.0-16.0); Imm Gran Abs Auto 0.02 X10*3/uL (0.00-0.03); Imm Gran Pct Auto 0.4 % (0.0-0.4); Lymphocytes Absolute Auto 0.6 X10*3/uL (1.2-4.9); Mean Corpuscular HGB Conc 28.9 g/dl (31.0-35.0); Mean Corpuscular Hemoglobin 26.8 pg (27.0-33.0); Mean Corpuscular Volume 92.6 fL (80.0-98.0); NRBC Abs Auto 0.000 X10*3/uL (0.0-0.012); NRBC Pct Auto 0.0 /100WBC (0.0-0.2); Platelet Count 171 X10*3/uL (160-400); Red Blood Count 3.25 X10*6/uL (4.20-5.50); White Blood Count 4.5 X10*3/uL (4.8-10.8)
[2025-05-04 06:45] LABS: Anion Gap 18 (12-20); Blood Urea Nitrogen 96 mg/dL (9-16); Calcium 9.1 mg/dL (8.4-10.2); Carbon Dioxide 30 mmol/L (22-29); Chloride 97 mmol/L (96-108); Estimated Glomerular Filt Rate 16; Potassium 3.1 mmol/L (3.3-5.1); Sodium 142 mmol/L (135-145)
== END 2025-05-04 06:16 | disposition home or self-care (01) ==
LOC: HO.MMNH2L 06:15
PROVIDERS: Visit Provider Student in an Organized Health Care Education/Training Program
DX: I50.9 Heart failure, unspecified (principal)
CPT/HCPCS: 36415; 80048; 85025

== ENCOUNTER 2025-05-07 06:05 | Outpatient (REF) | payer MEDICARE, SELFPAY ==
--- OUTSIDE RECORDS SUMMARY | 2025-05-07 06:07 | XMS_ITS | Encounter Summary ---
Author Organization [facility], Address [address] [place] [address] Phone Care Team Providers Care Project Manager Senior Name Role Phone Dandre Chavez MD Primary Care Provider [phone] Encounter Details Date Type Department Care Team (Late st Contact Info) Description 01/14/2023 Documentation Only [facility], [address] [place] [address] [place] Delgadillo [address] [place] [phone] Social History Tobacco Use Types Packs/Day Years [...] on filedocumented in this encounter Care Teams Project Manager Senior Relationship Specialty Start Date End Date Dandre Chavez MD [address] [place] [address], [address] [place], [place] PCP - General 07/07/19 documented as of this encounter
--- OUTSIDE RECORDS SUMMARY | 2025-05-07 06:07 | XMS_ITS | Encounter Summary ---
Author Organization [facility] Address [address] [place] [address] Care Team Providers Care Business Leader Name Role Phone Amina Burciaga MD Primary Care Provider [phone] Encounter Details Date Type Department Care Team (Latest Contact Info) Description 09/11/[address] [facility] - Main Lab [address] [facility] [place] [address] Amina Burciaga MD [address] [place] [address] Other long term care pharmacist (current) drug therapy; Type 2 diabetes mellitus [...] COUNT Routine 09/11/2024 9:47 AM EST Other long term care pharmacist (current) drug therapy Type 2 diabetes mellitus without complications (CMS/HCC) Heart failure, unspecified (CMS/HCC) MAGNESIUM Routine 09/11/2024 9:47 AM EST Other intermediate (current) drug therapy Type 2 diabetes mellitus without complications (CMS/HCC) Heart failure, unspecified (CMS/HCC) BASIC METABOLIC PANEL Routine 09/11/2024 9:47 AM EST Other intermediate (current) drug therapy Type 2 diabetes mellitus without complications (CMS/HCC) Heart failure, unspecified (CMS/HCC) documented in this encounter Results * Magnesium (09/11/2024 9:47 AM EST) [facility] [address] Magnesium 2.1 1.9 - 2.6 mg/dL LAB CHEMISTRY METHOD 09/11/2024 12:45 PM [facility] Blood Venous blood specimen / Unknown Venipuncture / Unknown 09/11/2024 9:47 AM EST 09/11/2024 11:29 AM EST Amina Burciaga MD LAB BLOOD ORDERABLES Final Resul t [facility] [address] [place] [address], * (ABNORMAL) Basic metabolic panel (09/11/2024 9:47 AM EST) [facility] [address] Sodium 137 133 - 145 mmol/L LAB CHEMISTRY METHOD 09/11/2024 12:54 PM [facility] Potassium 3.9 3.5 - 5.5 mmol/L LAB CHEMISTRY METHOD 09/11/2024 12:54 PM [facility] Chloride 103 96 - 110 mmol/L LAB CHEMISTRY METHOD 09/11/2024 12:54 PM [facility] CO2 26 21 - 32 mmol/L LAB CHEMISTRY METHOD 09/11/2024 12:54 PM [facility] Anion Gap 8 3 - 11 LAB CHEMISTRY METHOD 09/11/2024 12:54 PM [facility] Glucose 112(H) 70 - 100 mg/dL LAB CHEMISTRY METHOD 09/11/2024 12:54 PM [facility] BUN 50(H) 5 - 25 mg/dL LAB CHEMISTRY METHOD 09/11/2024 12:54 PM [facility] Creatinine 2.73(H) 0.50 - 1.10 mg/dL LAB CHEMISTRY METHOD 09/11/2024 12:54 PM [facility] eGFR 17(L) >=60 mL/min/1. 73m2 LAB CHEMISTRY METHOD 09/11/2024 12:54 PM [facility] Comment:Calculation based on the Chronic Kidney Disease Epidemiology Collaboration (CKD-EPI) equation refit without adjustment for race. BUN/Creatinine Ratio 18.3 LAB CHEMISTRY METHOD 09/11/2024 12:54 PM [facility] Calcium 8.6 8.5 - 10.5 mg/dL LAB CHEMISTRY METHOD 09/11/2024 12:54 PM [facility] Blood Venous blood specimen / Unknown Venipuncture / Unknown 09/11/2024 9:47 AM EST 09/11/2024 11:29 AM EST Amina Burciaga MD LAB BLOOD ORDERABLES Final Resul t [facility] [address] [place] [address], * (ABNORMAL) Complete blood count (09/11/2024 9:47 AM EST) WBC 6.9 4.8 - 10.8 K/mcL LAB HEMETOLOGY METHOD 09/11/2024 11:47 AM [facility] RBC 3.10(L) 3.80 - 4.80 M/mcL LAB HEMETOLOGY METHOD 09/11/2024 11:47 AM [facility] Hemoglobin 9.0(L) 11.5 - 16.0 g/dL LAB HEMETOLOGY METHOD 09/11/2024 11:47 AM [facility] Hematocrit 31.6(L) 35.0 - 47.0 % LAB HEMETOLOGY METHOD 09/11/2024 11:47 AM [facility] MCV 102.6(H) 79.0 - 98.0 FL LAB HEMETOLOGY METHOD 09/11/2024 11:47 AM EST [facility] MCH 29.2 27.0 - 32.0 pcg LAB HEMETOLOGY METHOD 09/11/2024 11:47 AM [facility] MCHC 28.5(L) 32.0 - 37.0 g/dL LAB HEMETOLOGY METHOD 09/11/2024 11:47 AM EST [facility] RDW 20.6(H) 11.0 - 15.0 % LAB HEMETOLOGY METHOD 09/11/2024 11:47 AM EST [facility] Platelets 180 130 - 400 K/mcL LAB HEMETOLOGY METHOD 09/11/2024 11:47 AM [facility] MPV 9.9 7.0 - 11.0 FL LAB HEMETOLOGY METHOD 09/11/2024 11:47 AM EST [facility] NRBC 0.0 <1.0 % LAB HEMETOLOGY METHOD 09/11/2024 11:47 AM [facility] NRBC Absolute 0.00 <0.10 K/mcL LAB HEMETOLOGY METHOD 09/11/2024 11:47 AM [facility] Blood Venous blood specimen / Unknown Venipuncture / Unknown 09/11/2024 9:47 AM EST 09/11/2024 11:29 AM EST us Amina Burciaga MD LAB BLOOD ORDERABLES Final Resul t [facility] [address] [place] [address], documented in this encounter Visit Diagnoses Diagnosis Other intermediate (current) drug therapy Type 2 diabetes mellitus without complications (CMS/HCC V24, CMS/HCC V28) Heart failure, unspecified (CMS/HCC V24, CMS/HCC V28) Heart failure, unspecified documented in this encounter Care Teams Business Leader Relationship Specialty Start Date End Date Amina Burciaga MD [address] [place] [address] PCP - General Hospitalist Medicine 09/11/24 documented as of this encounter
--- OUTSIDE RECORDS SUMMARY | 2025-05-07 06:07 | XMS_ITS | Encounter Summary ---
Author Organization [facility], Address [address] [place] [address] Phone Care Team Providers Care Auto Rental Supervisor Name Role Phone Dandre Chavez MD Primary Care Provider [phone] Encounter Details Date Type Department Care Team (Late st Contact Info) Description 08/06/2023 Documentation Only [facility], [address] [place] [address] Desi Rodriguez Social History Tobacco Use Types [...] on filedocumented in this encounter Care Teams Auto Rental Supervisor Relationship Specialty Start Date End Date Dandre Chavez MD [address] [place] [address], [address] [place], [place] PCP - General 07/07/19 documented as of this encounter
--- OUTSIDE RECORDS SUMMARY | 2025-05-07 06:07 | XMS_ITS | Encounter Summary ---
Author Organization [facility] Address [address] [place] [address] Care Team Providers Care Power Barker Operator Name Role Phone Amina Burciaga MD Primary Care Provider [phone] Encounter Details Date Type Department Care Team (Late st Contact Info) Description 09/30/2024 Lab Requisition [facility] - Main Lab [address] [facility] [place] [address] Isaac Stark MD [address] [place] [address] [place] [address] Heart failure, unspecified [...] (ABNORMAL) Vitamin B12 (09/30/2024 9:57 AM EST) [facility] Vitamin B-12 1,028(H) 250 - 900 pcg/mL LAB CHEMISTRY METHOD 09/30/2024 1:04 PM [facility] Blood Venous blood specimen / Unknown Venipuncture / Unknown 09/30/2024 9:57 AM EST 09/30/2024 10:50 AM EST us Isaac Stark MD LAB BLOOD ORDERABLES Final Resu lt [facility] [address] [place] [address], [place] [phone] * (ABNORMAL) Comprehensive metabolic panel (09/30/2024 9:57 AM EST) [facility] Sodium 138 133 - 145 mmol/L LAB [...] [facility] Total Protein 6.2 [...] MD LAB BLOOD ORDERABLES Final Resu lt [facility] [address] [place] [address], * (ABNORMAL) Complete blood count (09/30/2024 9:57 AM EST) [facility] WBC 5.9 4.8 - 10.8 K/mcL LAB HEMETOLOGY METHOD 09/30/2024 12:25 PM [facility] RBC 3.80 3.80 - 4.80 M/mcL LAB HEMETOLOGY METHOD 09/30/2024 12:25 PM [facility] Hemoglobin 11.2(L) 11.5 - 16.0 g/dL LAB HEMETOLOGY METHOD 09/30/2024 12:25 PM [facility] Hematocrit 37.7 35.0 - 47.0 % LAB HEMETOLOGY METHOD 09/30/2024 12:25 PM [facility] MCV 98.2(H) 79.0 - 98.0 FL LAB HEMETOLOGY METHOD 09/30/2024 12:25 PM [facility] MCH 29.2 27.0 - 32.0 pcg LAB HEMETOLOGY METHOD 09/30/2024 12:25 PM [facility] MCHC 29.7(L) 32.0 - 37.0 g/dL LAB HEMETOLOGY METHOD 09/30/2024 12:25 PM [facility] RDW 17.7(H) 11.0 - 15.0 % LAB HEMETOLOGY METHOD 09/30/2024 12:25 PM [facility] Platelets 183 130 - 400 K/mcL LAB HEMETOLOGY METHOD 09/30/2024 12:25 PM [facility] MPV 11.7(H) 7.0 - 11.0 FL LAB HEMETOLOGY METHOD 09/30/2024 12:25 PM [facility] NRBC 0.0 <1.0 % LAB HEMETOLOGY METHOD 09/30/2024 12:25 PM [facility] NRBC Absolute 0.00 <0.10 K/mcL LAB HEMETOLOGY METHOD 09/30/2024 12:25 PM EST [facility] Blood Venous blood specimen / Unknown Venipuncture / Unknown 09/30/2024 9:57 AM EST 09/30/2024 10:50 AM EST us Isaac Stark MD LAB BLOOD ORDERABLES Final Resu lt Performing Organization Address City/[facility]/ZIP Co de Phone Number [facility] [address] [place] [address], [place] [phone] * Vitamin D 25 hydroxy (09/30/2024 9:57 AM EST) Vit D, 25-Hydroxy 54.9 30.0 - 80.0 ng/mL LAB CHEMISTRY METHOD 09/30/2024 12:48 PM EST [facility] Blood Venous blood specimen / Unknown Venipuncture / Unknown 09/30/2024 9:57 AM EST 09/30/2024 10:50 AM EST us Isaac Stark MD LAB BLOOD ORDERABLES Final Resu lt Performing Organization Address [facility]/ZIP Co de Phone Number [facility] [address] [place] [address], [place] [phone] documented in this encounter Visit Diagnoses Diagnosis Heart failure, unspecified (CMS/HCC V24, CMS/HCC V28) Heart failure, unspecified Vitamin D deficiency, unspecified documented in this encounter Care Teams Power Barker Operator Relationship Specialty Start Date End Date Amina Burciaga MD [address] [place] [address] PCP - General Hospitalist Medicine 09/11/24 documented as of this encounter
--- OUTSIDE RECORDS SUMMARY | 2025-05-07 06:07 | XMS_ITS | Encounter Summary ---
Author Organization [facility] Address [address] [place] [address] Care Team Providers Care Head Of Partner Development Name Role Phone Amina Burciaga MD Primary Care Provider [phone] Encounter Details Date Type Department Care Team (Late st Contact Info) Description 08/03/2024 Lab Requisition [facility] - Main Lab [address] [facility] [place] [address] Hortencia Mcclellan MD [address] [id number] Type 2 diabetes mellitus without complications (CMS/HCC [...] mmol/L LAB CHEMISTRY METHOD 08/04/2024 9:42 AM [facility] Potassium 3.6 3.5 - 5.5 mmol/L LAB CHEMISTRY METHOD 08/04/2024 9:42 AM [facility] Chloride 106 96 - 110 mmol/L LAB CHEMISTRY METHOD 08/04/2024 9:42 AM [facility] CO2 29 21 - 32 mmol/L LAB CHEMISTRY METHOD 08/04/2024 9:42 AM [facility] Anion Gap 8 3 - 11 LAB CHEMISTRY METHOD 08/04/2024 9:42 AM [facility] Glucose 64(L) 70 - 100 mg/dL LAB CHEMISTRY METHOD 08/04/2024 9:42 AM [facility] BUN 44(H) 5 - 25 mg/dL LAB CHEMISTRY METHOD 08/04/2024 9:42 AM [facility] Creatinine 2.43(H) 0.50 - 1.10 mg/dL LAB CHEMISTRY METHOD 08/04/2024 9:42 AM [facility] eGFR 20(L) >=60 mL/min/1. 73m2 LAB CHEMISTRY METHOD 08/04/2024 9:42 AM [facility] Comment:Calculation based on the Chronic Kidney Disease Epidemiology Collaboration (CKD-EPI) equation refit without adjustment for race. BUN/Creatinine Ratio 18.1 LAB CHEMISTRY METHOD 08/04/2024 9:42 AM [facility] Calcium 8.8 8.5 - 10.5 mg/dL LAB CHEMISTRY METHOD 08/04/2024 9:42 AM [facility] Blood Venous blood specimen / Unknown Venipuncture / Unknown 08/04/2024 6:38 AM EST 08/04/2024 8:24 AM EST us Hortencia Mcclellan MD LAB BLOOD ORDERABLES Fin al Result [facility] [address] [place] [address], * (ABNORMAL) Complete blood count (08/04/2024 6:38 AM EST) [facility] WBC 4.5(L) 4.8 - 10.8 K/mcL LAB HEMETOLOGY METHOD 08/04/2024 9:19 AM [facility] RBC 3.20(L) 3.80 - 4.80 M/mcL LAB HEMETOLOGY METHOD 08/04/2024 9:19 AM [facility] Hemoglobin 9.0(L) 11.5 - 16.0 g/dL LAB HEMETOLOGY METHOD 08/04/2024 9:19 AM [facility] Hematocrit 31.8(L) 35.0 - 47.0 % LAB HEMETOLOGY METHOD 08/04/2024 9:19 AM [facility] MCV 100.0(H) 79.0 - 98.0 FL LAB HEMETOLOGY METHOD 08/04/2024 9:19 AM [facility] MCH 28.3 27.0 - 32.0 pcg LAB HEMETOLOGY METHOD 08/04/2024 9:19 AM [facility] MCHC 28.3(L) 32.0 - 37.0 g/dL LAB HEMETOLOGY METHOD 08/04/2024 9:19 AM [facility] RDW 18.9(H) 11.0 - 15.0 % LAB HEMETOLOGY METHOD 08/04/2024 9:19 AM [facility] Platelets 188 130 - 400 K/mcL LAB HEMETOLOGY METHOD 08/04/2024 9:19 AM [facility] MPV 10.6 7.0 - 11.0 FL LAB HEMETOLOGY METHOD 08/04/2024 9:19 AM [facility] NRBC 0.0 <1.0 % LAB HEMETOLOGY METHOD 08/04/2024 9:19 AM EST [facility] NRBC Absolute 0.00 <0.10 K/mcL LAB HEMETOLOGY METHOD 08/04/2024 9:19 AM EST [facility] Blood Venous blood specimen / Unknown Venipuncture / Unknown 08/04/2024 6:38 AM EST 08/04/2024 8:24 AM EST us Hortencia Mcclellan MD LAB BLOOD ORDERABLES Fin al Result [facility] ([facility] [address] [place] [address], documented in this encounter Visit Diagnoses Diagnosis Type 2 diabetes mellitus without complications (CMS/HCC V24, CMS/HCC V28) Heart failure, unspecified (CMS/HCC V24, CMS/HCC V28) Heart failure, unspecified documented in this encounter Care Teams Head Of Partner Development Relationship Specialty Start Date End Date Amina Burciaga MD [address] [place] [address] PCP - General Hospitalist Medicine 09/11/24 documented as of this encounter
--- OUTSIDE RECORDS SUMMARY | 2025-05-07 06:07 | XMS_ITS | Encounter Summary ---
Author Organization [facility], Address [address] [place] [address] Phone Care Team Providers Care Medical Office Technician Name Role Phone Dandre Chavez MD Primary Care Provider [phone] Encounter Details Date Type Department Care Team (Late st Contact Info) Description 12/31/2022 Documentation Only [facility], [address] [place] [address] Melissa Delgadillo [address] [place] [phone] Social History Tobacco Use Types Packs/Day Years [...] on filedocumented in this encounter Care Teams Medical Office Technician Relationship Specialty Start Date End Date Dandre Chavez MD [address] [place] [address], [address] [place], [place] PCP - General 07/07/19 documented as of this encounter
--- OUTSIDE RECORDS SUMMARY | 2025-05-07 06:07 | XMS_ITS | Clinical Summary ---
Author Organization [address] Address [address] [place] [address] Phone Care Team Providers Care Horseback Excavator Name Role Phone Amina Burciaga MD Primary Care Provider [phone] Immunizations Name Administration Dates Next Due Pfizer [...] LAB CHEMISTRY METHOD 09/30/2024 1:04 PM EST [facility] Total Protein 6.2 6.0 - [...] ORDERABLES Final Resu lt Performing Organization Address City/[facility]/ZIP Co de Phone Number [facility] [address] [place] [address], [place] [phone] * Hemoglobin A1c (09/23/2024 8:20 AM EST) [...] ORDERABLES Final Resul t Performing Organization Address City/[facility]/ZIP Co de Phone Number [facility] [address] [place] [address], [place] [phone] from Last 3 Months or Most Recently Relevant to Health Maintenance Insurance [place]ICA[place] [employer] Care Teams Horseback Excavator Relationship Specialty Start Date End Date Amina Burciaga MD [address] [place] [address] PCP - General Hospitalist Medicine 09/11/24
--- OUTSIDE RECORDS SUMMARY | 2025-05-07 06:07 | XMS_ITS | Clinical Summary ---
Author Organization [facility], Address [address] [place] [address] Phone Care Team Providers Care Blast Furnace Blower Name Role Phone Dandre Chavez MD Primary Care Provider [phone] Allergies Active Allergy Reactions Criticality Noted Date [...] Last Assessment & Plan: History of inferior UT in 2013 with a stent to her [...] PM EST) Hemoglobin A1C 6.9(H) (4.0-5.6) % [facility] Comment: MONITORING: In known diabetic patients, hemoglobin A1c targets should be discussed with health care provider. DIAGNOSTIC USE: The [place] Diabetes Association (ADA) and the World Health [...] Supplement 1 Testing performed or reported by [facility], a Service of [address] [address] Louis Fry MD, Shaping Machine Operator [facility]# [id number] Blood specimen (specimen) Venous blood / Unknown 10/18/2022 2:34 PM EST 10/18/2022 2:35 PM EST us Faina LUCIANO LAB BLOOD ORDERABLES Final Res ult [facility] from Last 3 Months or Most Recently Relevant to Health Maintenance Insurance Medicare [facility] [place] [id number] Care Teams Blast Furnace Blower Relationship Specialty Start Date End Date Dandre Chavez MD [address] [place] [address], [address] [place] PCP - General 07/07/19
--- OUTSIDE RECORDS SUMMARY | 2025-05-07 06:07 | XMS_ITS | Encounter Summary ---
Author Organization [facility], Address [address] [place] [address] Phone Care Team Providers Care Horseback Excavator Name Role Phone Dandre Chavez MD Primary Care Provider [phone] Encounter Details Date Type Department Care Team (Late st Contact Info) Description 01/08/2025 Documentation Only [facility], [address] [place] [address] Radha Chatterjee [place] [address] [place] [phone] Social History Tobacco Use Types Packs/Day Years [...] on filedocumented in this encounter Care Teams Horseback Excavator Relationship Specialty Start Date End Date Dandre Chavez MD [address] [place] [address], [address] [place], [place] PCP - General 07/07/19 documented as of this encounter
--- OUTSIDE RECORDS SUMMARY | 2025-05-07 06:07 | XMS_ITS | Encounter Summary ---
Author Organization [facility], Address [address] [place] [address] Phone Care Team Providers Care Meat Pickler Name Role Phone Dandre Chavez MD Primary Care Provider [phone] Encounter Details Date Type Department Care Team (Late st Contact Info) Description 11/29/2023 Documentation Only [facility], [address] [place] [address] Radha Chatterjee [place] [address] [place] [phone] Social History Tobacco Use Types Packs/Day Years [...] on filedocumented in this encounter Care Teams Meat Pickler Relationship Specialty Start Date End Date Dandre Chavez MD [address] [place] [address], [address] [place], [place] PCP - General 07/07/19 documented as of this encounter
--- OUTSIDE RECORDS SUMMARY | 2025-05-07 06:07 | XMS_ITS | Encounter Summary ---
Author Organization [facility], Address [address] [place] [address] Phone Care Team Providers Care Child Life Therapist Name Role Phone Dandre Chavez MD Primary Care Provider [phone] Encounter Details Date Type Department Care Team (Late st Contact Info) Description 12/31/2022 Documentation Only [facility], [address] [place] [address] Melissa Delgadillo [address] [place] [phone] Social History Tobacco Use Types Packs/Day Years [...] on filedocumented in this encounter Care Teams Child Life Therapist Relationship Specialty Start Date End Date Dandre Chavez MD [address] [place] [address], [address] [place], [place] PCP - General 07/07/19 documented as of this encounter
--- OUTSIDE RECORDS SUMMARY | 2025-05-07 06:07 | XMS_ITS | Encounter Summary ---
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 Social History Tobacco [...] AM EDT) Max BP Systolic 150 mmHg [facility] Max BP Diastolic 80 mmHg [facility] Max HR 89 BPM [facility] Resting HR 78 BPM [facility] Resting BP Systolic 150 mmHg [facility] Resting BP Diastolic 80 mmHg [facility] Peak METS 1.0 METS [facility] Peak HR 83 BPM [facility] Anatomical Region Laterality Modality Heart Other [...] this encounter Visit Diagnoses Diagnosis 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 It is not the complete legal health record.[facility]
--- OUTSIDE RECORDS SUMMARY | 2025-05-07 06:07 | XMS_ITS | Encounter Summary ---
Author Organization [facility] Address [address] [place] [address] Care Team Providers Care Image Consultant Name Role Phone Amina Burciaga MD Primary Care Provider [phone] Encounter Details Date Type Department Care Team (Latest Contact Info) Description 09/07/2024 Lab Requisition [facility] - Main Lab [address] [facility] [place] [address] Amina Burciaga MD [address] [place] [address] Heart failure, unspecified (CMS/HCC V24, [...] unspecified Type 2 diabetes mellitus without complications ([facility]) documented in this encounter Results * Hemoglobin A1c (09/07/2024 6:24 AM EST) Pathologist [facility] Hemoglobin A1C 5.1 <6.5 % LAB CHEMISTRY METHOD 09/07/2024 11:11 AM EST [facility] Mean Bld Glu Estim. 100 mg/dL LAB CHEMISTRY METHOD 09/07/2024 11:11 AM [facility] Blood Venous blood specimen / Unknown Venipuncture / Unknown 09/07/2024 6:24 AM EST 09/07/2024 8:12 AM EST Amina Burciaga MD LAB BLOOD ORDERABLES Final Resul t [facility] [address] [place] [address], * (ABNORMAL) Comprehensive metabolic panel (09/07/2024 6:24 AM EST) [facility] Sodium 140 133 - 145 mmol/L LAB CHEMISTRY METHOD 09/07/2024 9:18 AM [facility] Potassium 3.8 3.5 - 5.5 mmol/L LAB CHEMISTRY METHOD 09/07/2024 9:18 AM [facility] Chloride 106 96 - 110 mmol/L LAB CHEMISTRY METHOD 09/07/2024 9:18 AM [facility] CO2 28 21 - 32 mmol/L LAB CHEMISTRY METHOD 09/07/2024 9:18 AM [facility] Anion Gap 6 3 - 11 LAB CHEMISTRY METHOD 09/07/2024 9:18 AM [facility] Glucose 61(L) 70 - 100 mg/dL LAB CHEMISTRY METHOD 09/07/2024 9:18 AM [facility] BUN 59(H) 5 - 25 mg/dL LAB CHEMISTRY METHOD 09/07/2024 9:18 AM [facility] Creatinine 3.13(H) 0.50 - 1.10 mg/dL LAB CHEMISTRY METHOD 09/07/2024 9:18 AM [facility] eGFR 15(L) >=60 mL/min/1. 73m2 LAB CHEMISTRY METHOD 09/07/2024 9:18 AM [facility] Comment:Calculation based on the Chronic Kidney Disease Epidemiology Collaboration (CKD-EPI) equation refit without adjustment for race. BUN/Creatinine Ratio 18.8 LAB CHEMISTRY METHOD 09/07/2024 9:18 AM [facility] Calcium 9.0 8.5 - 10.5 mg/dL LAB CHEMISTRY METHOD 09/07/2024 9:18 AM [facility] AST (SGOT) 17 10 - 42 unit/L LAB CHEMISTRY METHOD 09/07/2024 9:18 AM [facility] ALT (SGPT) 20 10 - 60 unit/L LAB CHEMISTRY METHOD 09/07/2024 9:18 AM [facility] Alkaline Phosphatase 60 42 - 121 unit/L LAB CHEMISTRY METHOD 09/07/2024 9:18 AM [facility] Total Protein 6.9 6.0 - 8.0 g/dL LAB CHEMISTRY METHOD 09/07/2024 9:18 AM [facility] Albumin 3.0(L) 3.2 - 5.0 g/dL LAB CHEMISTRY METHOD 09/07/2024 9:18 AM [facility] Total Bilirubin 0.5 0.0 - 1.4 mg/dL LAB CHEMISTRY METHOD 09/07/2024 9:18 AM [facility] Blood Venous blood specimen / Unknown Venipuncture / Unknown 09/07/2024 6:24 AM EST 09/07/2024 8:12 AM EST us Amina Burciaga MD LAB BLOOD ORDERABLES Final Resul t [facility] [address] [place] [address], * (ABNORMAL) Complete blood count (09/07/2024 6:24 AM EST) [facility] Signature WBC 4.7(L) 4.8 - 10.8 K/mcL LAB HEMETOLOGY METHOD 09/07/2024 8:53 AM [facility] RBC 3.00(L) 3.80 - 4.80 M/mcL LAB HEMETOLOGY METHOD 09/07/2024 8:53 AM [facility] Hemoglobin 8.9(L) 11.5 - 16.0 g/dL LAB HEMETOLOGY METHOD 09/07/2024 8:53 AM [facility] Hematocrit 30.6(L) 35.0 - 47.0 % LAB HEMETOLOGY METHOD 09/07/2024 8:53 AM [facility] MCV 101.7(H) 79.0 - 98.0 FL LAB HEMETOLOGY METHOD 09/07/2024 8:53 AM [facility] MCH 29.6 27.0 - 32.0 pcg LAB HEMETOLOGY METHOD 09/07/2024 8:53 AM [facility] MCHC 29.1(L) 32.0 - 37.0 g/dL LAB HEMETOLOGY METHOD 09/07/2024 8:53 AM [facility] RDW 20.1(H) 11.0 - 15.0 % LAB HEMETOLOGY METHOD 09/07/2024 8:53 AM [facility] Platelets 196 130 - 400 K/mcL LAB HEMETOLOGY METHOD 09/07/2024 8:53 AM [facility] MPV 10.0 7.0 - 11.0 FL LAB HEMETOLOGY METHOD 09/07/2024 8:53 AM [facility] NRBC 0.0 <1.0 % LAB HEMETOLOGY METHOD 09/07/2024 8:53 AM EST [facility] NRBC Absolute 0.00 <0.10 K/mcL LAB HEMETOLOGY METHOD 09/07/2024 8:53 AM EST [facility] Blood Venous blood specimen / Unknown Venipuncture / Unknown 09/07/2024 6:24 AM EST 09/07/2024 8:12 AM EST us Amina Burciaga MD LAB BLOOD ORDERABLES Final Resul t [facility] [address] [place] [address], documented in this encounter Visit Diagnoses Diagnosis Heart failure, unspecified (CMS/HCC V24, CMS/HCC V28) Heart failure, unspecified Chronic kidney disease, unspecified Type 2 diabetes mellitus without complications (CMS/HCC V24, CMS/HCC V28) documented in this encounter Care Teams Image Consultant Relationship Specialty Start Date End Date Amina Burciaga MD [address] [place] [address] PCP - General Hospitalist Medicine 09/11/24 documented as of this encounter
--- OUTSIDE RECORDS SUMMARY | 2025-05-07 06:07 | XMS_ITS | Encounter Summary ---
Author Organization [facility] Address [address] [place] [address] Care Team Providers Care Printed Circuit Boards Contact Printer Name Role Phone Amina Burciaga MD Primary Care Provider [phone] Encounter Details Date Type Department Care Team (Latest Contact Info) Description 09/23/2024 Lab Requisition [facility] - Main Lab 299 [facility] [employer] [place] [address] Amina Burciaga MD [address] [place] [address] Type 2 diabetes mellitus with [...] MD LAB BLOOD ORDERABLES Final Resul t [facility] [address] [place] [address], * (ABNORMAL) Comprehensive metabolic panel (09/23/2024 8:20 AM EST) Pathologist [facility] Sodium 140 133 - 145 mmol/L LAB CHEMISTRY METHOD 09/23/2024 4:37 PM [facility] Potassium 3.9 3.5 - 5.5 mmol/L LAB CHEMISTRY METHOD 09/23/2024 4:37 PM [facility] Chloride 102 96 - 110 mmol/L LAB CHEMISTRY METHOD 09/23/2024 4:37 PM [facility] CO2 31 21 - 32 mmol/L LAB CHEMISTRY METHOD 09/23/2024 4:37 PM [facility] Anion Gap 7 3 - 11 LAB CHEMISTRY METHOD 09/23/2024 4:37 PM [facility] Glucose 106(H) 70 - 100 mg/dL LAB CHEMISTRY METHOD 09/23/2024 4:37 PM [facility] BUN 82(H) 5 - 25 mg/dL LAB CHEMISTRY METHOD 09/23/2024 4:37 PM [facility] Creatinine 2.46(H) 0.50 - 1.10 mg/dL LAB CHEMISTRY METHOD 09/23/2024 4:37 PM [facility] LAB eGFR 20(L) >=60 mL/min/1. 73m2 LAB CHEMISTRY METHOD 09/23/2024 4:37 PM [facility] LAB Comment:Calculation based on the Chronic Kidney Disease Epidemiology Collaboration (CKD-EPI) equation refit without adjustment for race. BUN/Creatinine Ratio 33.3 LAB CHEMISTRY METHOD 09/23/2024 4:37 PM [facility] Calcium 8.7 8.5 - 10.5 mg/dL LAB CHEMISTRY METHOD 09/23/2024 4:37 PM [facility] AST (SGOT) 17 10 - 42 unit/L LAB CHEMISTRY METHOD 09/23/2024 4:37 PM [facility] ALT (SGPT) 34 10 - 60 unit/L LAB CHEMISTRY METHOD 09/23/2024 4:37 PM [facility] Alkaline Phosphatase 57 42 - 121 unit/L LAB CHEMISTRY METHOD 09/23/2024 4:37 PM [facility] LAB Total Protein 7.1 6.0 - 8.0 g/dL LAB CHEMISTRY METHOD 09/23/2024 4:37 PM [facility] Albumin 3.2 3.2 - 5.0 g/dL LAB CHEMISTRY METHOD 09/23/2024 4:37 PM [facility] LAB Total Bilirubin 0.6 0.0 - 1.4 mg/dL LAB CHEMISTRY METHOD 09/23/2024 4:37 PM [facility] LAB Blood Venous blood specimen / Unknown Venipuncture / Unknown 09/23/2024 8:20 AM EST 09/23/2024 12:06 PM EST us Amina Burciaga MD LAB BLOOD ORDERABLES Final Resul t [facility] [address] [place] [address], * (ABNORMAL) Complete blood count (09/23/2024 8:20 AM EST) [facility] WBC 6.2 4.8 - 10.8 K/mcL LAB HEMETOLOGY METHOD 09/23/2024 12:38 PM [facility] RBC 3.60(L) 3.80 - 4.80 M/mcL LAB HEMETOLOGY METHOD 09/23/2024 12:38 PM [facility] Hemoglobin 10.5(L) 11.5 - 16.0 g/dL LAB HEMETOLOGY METHOD 09/23/2024 12:38 PM [facility] Hematocrit 36.5 35.0 - 47.0 % LAB HEMETOLOGY METHOD 09/23/2024 12:38 PM [facility] LAB MCV 100.3(H) 79.0 - 98.0 FL LAB HEMETOLOGY METHOD 09/23/2024 12:38 PM [facility] LAB MCH 28.8 27.0 - 32.0 pcg LAB HEMETOLOGY METHOD 09/23/2024 12:38 PM [facility] LAB MCHC 28.8(L) 32.0 - 37.0 g/dL LAB HEMETOLOGY METHOD 09/23/2024 12:38 PM [facility] LAB RDW 18.4(H) 11.0 - 15.0 % LAB HEMETOLOGY METHOD 09/23/2024 12:38 PM [facility] LAB Platelets 254 130 - 400 K/mcL LAB HEMETOLOGY METHOD 09/23/2024 12:38 PM [facility] LAB MPV 10.7 7.0 - 11.0 FL LAB HEMETOLOGY METHOD 09/23/2024 12:38 PM [facility] LAB NRBC 0.0 <1.0 % LAB HEMETOLOGY METHOD 09/23/2024 12:38 PM EST [facility] LAB NRBC Absolute 0.00 <0.10 K/mcL LAB HEMETOLOGY METHOD 09/23/2024 12:38 PM EST [facility] LAB Blood Venous blood specimen / Unknown Venipuncture / Unknown 09/23/2024 8:20 AM EST 09/23/2024 12:06 PM EST us Amina Burciaga MD LAB BLOOD ORDERABLES Final Resul t [facility] LAB [address] [place] [address], documented in this encounter Visit Diagnoses Diagnosis Type 2 diabetes mellitus with unspecified complications (CMS/HCC V24, CMS/HCC V28) Unspecified systolic (congestive) heart failure (CMS/HCC V24, CMS/HCC V28) documented in this encounter Care Teams Printed Circuit Boards Contact Printer Relationship Specialty Start Date End Date Amina Burciaga MD [address] [place] [address] PCP - General Hospitalist Medicine 09/11/24 documented as of this encounter
--- OUTSIDE RECORDS SUMMARY | 2025-05-07 06:07 | XMS_ITS | Encounter Summary ---
Author Organization [facility] Address [address] [place] [address] Care Team Providers Care Tower Loader Operator Name Role Phone Amina Burciaga MD Primary Care Provider [phone] Encounter Details Date Type Department Care Team (Late st Contact Info) Description 07/23/2024 Lab Requisition [facility] - Main Lab [address] [place] [address] Hortencia Mcclellan MD [address] [phone] Chronic kidney disease, unspecified; Type 2 diabetes [...] LAB CHEMISTRY METHOD 07/23/2024 9:13 AM EST [facility] Potassium 3.8 3.5 - 5.5 mmol/L LAB CHEMISTRY METHOD 07/23/2024 9:13 AM EST [facility] Chloride 111(H) 96 - 110 mmol/L LAB CHEMISTRY METHOD 07/23/2024 9:13 AM [facility] LAB CO2 27 21 - 32 mmol/L LAB CHEMISTRY METHOD 07/23/2024 9:13 AM [facility] LAB Anion Gap 6 3 - 11 LAB CHEMISTRY METHOD 07/23/2024 9:13 AM [facility] LAB Glucose 64(L) 70 - 100 mg/dL LAB CHEMISTRY METHOD 07/23/2024 9:13 AM [facility] LAB BUN 62(H) 5 - 25 mg/dL LAB CHEMISTRY METHOD 07/23/2024 9:13 AM [facility] LAB Creatinine 2.70(H) 0.50 - 1.10 mg/dL LAB CHEMISTRY METHOD 07/23/2024 9:13 AM [facility] LAB eGFR 18(L) >=60 mL/min/1. 73m2 LAB CHEMISTRY METHOD 07/23/2024 9:13 AM [facility] LAB Comment:Calculation based on the Chronic Kidney Disease Epidemiology Collaboration (CKD-EPI) equation refit without adjustment for race. BUN/Creatinine Ratio 23.0 LAB CHEMISTRY METHOD 07/23/2024 9:13 AM [facility] LAB Calcium 9.2 8.5 - 10.5 mg/dL LAB CHEMISTRY METHOD 07/23/2024 9:13 AM [facility] LAB Blood Venous blood specimen / Unknown Venipuncture / Unknown 07/23/2024 5:52 AM EST 07/23/2024 8:17 AM EST us Hortencia Mcclellan MD LAB BLOOD ORDERABLES Fin al Result [facility] [address] [place] [address], documented in this encounter Visit Diagnoses Diagnosis Chronic kidney disease, unspecified Type 2 diabetes mellitus without complications (CMS/HCC V24, CMS/HCC V28) documented in this encounter Care Teams Tower Loader Operator Relationship Specialty Start Date End Date Amina Burciaga MD [address] [place] [address] PCP - General Hospitalist Medicine 09/11/24 documented as of this encounter
--- OUTSIDE RECORDS SUMMARY | 2025-05-07 06:07 | XMS_ITS | Clinical Summary ---
Author Organization [facility] Address [address] [place] [address] Care Team Providers Care Piper Installer Name Role Phone Dandre Chavez MD Primary Care Provider [phone] Allergies Active Allergy Reactions Criticality Noted Date [...] age to complete this topic Care Teams Piper Installer Relationship Specialty Start Date End Date Dandre Chavez MD [address] [place] [address] [place] [phone] PCP - General Internal Medicine 11/06/22
--- OUTSIDE RECORDS SUMMARY | 2025-05-07 06:08 | XMS_ITS | Encounter Summary ---
Author Organization [facility], Address [address] [place] [address] Phone Care Team Providers Care Music Mixer Name Role Phone Dandre Chavez MD Primary Care Provider [phone] Encounter Details Date Type Department Care Team (Late st Contact Info) Description 02/09/2022 Documentation Only [facility], [address] [place] [address] Faina Villegas PA Social History Tobacco Use [...] on filedocumented in this encounter Care Teams Music Mixer Relationship Specialty Start Date End Date Dandre Chavez MD [address] [place] [address], [address] [place], [place] PCP - General 07/07/19 documented as of this encounter
--- OUTSIDE RECORDS SUMMARY | 2025-05-07 06:08 | XMS_ITS | Encounter Summary ---
Author Organization [facility], Address [address] [place] [address] Phone Care Team Providers Care Nuclear Test Technician Name Role Phone Dandre Chavez MD Primary Care Provider [phone] Encounter Details Date Type Department Care Team (Late st Contact Info) Description 10/30/2022 Documentation Only [facility], [address] [place] [address] Melissa Delgadillo [address] [place] [phone] Social History Tobacco Use Types Packs/Day Years [...] on filedocumented in this encounter Care Teams Nuclear Test Technician Relationship Specialty Start Date End Date Dandre Chavez MD [address] [place] [address], [address] [place], [place] PCP - General 07/07/19 documented as of this encounter
--- OUTSIDE RECORDS SUMMARY | 2025-05-07 06:08 | XMS_ITS | Encounter Summary ---
Author Organization [facility], Address [address] [place] [address] Phone Care Team Providers Care Baby Sitter Name Role Phone Dandre Chavez MD Primary Care Provider [phone] Encounter Details Date Type Department Care Team (Late st Contact Info) Description 10/10/2021 Documentation Only [facility], [address] [place] [address] Faina Villegas PA Social History Tobacco Use [...] on filedocumented in this encounter Care Teams Baby Sitter Relationship Specialty Start Date End Date Dandre Chavez MD [address] [place] [address], [address] [place], [place] PCP - General 07/07/19 documented as of this encounter
--- OUTSIDE RECORDS SUMMARY | 2025-05-07 06:08 | XMS_ITS | Clinical Summary ---
Author Organization [facility] Address [address] [place] [address] Phone Care Team Providers Care Car Inspector Name Role Phone Dandre Chavez MD Primary Care Provider [phone] Miguel Enciso MD Unavailable [phone] Allergies Active Allergy Reactions Criticality Noted Date [...] Active ferrous sulfate 325 mg (65 mg [place] iron) EC tablet Take 325 mg by [...] focus on healthy food choices. Atherosclerosis of [place] co ronary artery of [place] heart with angina pectoris 10/28/2018 Assessment & [...] (04/14/2020 10:40 PM EDT): History of inferior ND in 2013 with a stent to her [...] LAD. She presented with a non-ST relation ND September 2018 and had a new culprit [...] will need to have this completed at [facility]. She is aware that this is [...] December. She will have this completed at [facility] due to having her stress test completed [...] this topic Medical Devices Implanted Type Area What Job Titles Mean Device Identifier Shelf Expiration Date Model / Serial / Lot Sensor Pulmonary Artery Delivery System Cardiomems - [id number] Implanted:Qt y: 1 on 04/03/2022 by Miguel Enciso MD at [facility] Implantable Monitor Left: Arterial [employer] [id number] 12/15/2023 CM PATIENT SYSTEM / [id number] / Description:Pulmonary artery Procedures Procedure Name Priority Date/Time Associated Diagnosis Comments COMPREHENSIVE METABOLIC PANEL Routine 04/18/2022 2:39 PM EDT Atherosclerosis of [place] coronary artery of [place] heart with angina pectoris Essential hypertension Ischemic cardiomyopathy PAD (peripheral artery disease) from Last 3 Months or Most Recently Relevant to Health Maintenance Results * (ABNORMAL) Comprehensive metabolic panel (04/18/2022 2:39 PM EDT) SODIUM 143 133 - 146 mmol/L [facility] POTASSIUM 4.5 3.3 - 5.1 mmol/L [facility] CHLORIDE 100 96 - 108 mmol/L [facility] CO2 34 21 - 35 mmol/L [facility] BUN 38(H) 6 - 19 mg/dL [facility] CREATININE 1.40 0.5 - 1.5 mg/dL [facility] GLUCOSE 163(H) 70 - 99 mg/dL [facility] ALBUMIN 4.0 3.9 - 4.8 g/dL [facility] TOTAL PROTEIN 7.5 6.5 - 8.0 g/dL [facility] CALCIUM 10.1 8.4 - 10.3 mg/dL [facility] ALKALINE PHOSPHATASE 94 39 - 117 U/L [facility] TOTAL BILIRUBIN 0.6 0.0 - 1.2 mg/dL [facility] AST 26 0 - 37 U/L [facility] ALT 12 0 - 40 U/L [facility] GLOBULIN 3.5 1 - 4.8 g/dL [facility] EGFR 39(L) >59 mL/min/1.7 3m2 [facility] Comment:Estimated glomerular filtration rate calculated using the CKD-EPI refit equation. ANION GAP 14 10 - 20 mmol/L [facility] Blood 04/18/2022 2:39 PM EDT 04/18/2022 2:42 PM EDT us Miguel Enciso MD LAB BLOOD ORDERABLES Final Result [facility] [address] [place] [address] from Last 3 Months or Most Recently Relevant to Health Maintenance Insurance MEDICARE PART A & B [place] PREFERRED HMO REPLAC[facility] [id number] MEDICARE PART A & B [place] MED[place] PREFERRED HMO REPLACEMENT [facility] [place] [id number] MEDICARE PART A & B Member Subscriber Plan / Payer (Ef fective 2012-Present) Name:Amina Zamora Member ID:[id number] Relation to Subscriber:Self Name:Amina Zamora Subscriber ID:[id number] Payer ID:[id number] Group ID:Not on file Type:Medicare Address: [employer] [address] [place] [phone] [facility] MEDICARE PREFERRED HMO REPLACEMENT MEDICARE PART A & B [place] PREFERRED HMO REPLACEMENT MEDICARE PART A & B [place] PREFERRED HMO REPLACEMENT [facility] MEDICARE PART A & B [place] MEDIC[place] PREFERRED HMO REPLACEMENT MEDICARE PART A & B [place] PREFERRED HMO REPLACEMENT [facility] MEDICARE PART A & B [place] PREFERRED HMO REPLACEMENT [facility] MEDICARE PART A & B [place] MED[place] PREFERRED HMO REPLACEMENT [facility] Care Teams Car Inspector Relationship Specialty Start Date End Date Dandre Chavez MD [address] [place] [address] PCP - General 09/05/17 Miguel Enciso MD [address] [place] [phone] [email or web address] Cardiology 05/28/24 Additional Source Comments The information contained in this document represents components of the legal health record. It is not the complete legal health record.[facility]
--- OUTSIDE RECORDS SUMMARY | 2025-05-07 06:08 | XMS_ITS | Encounter Summary ---
Author Organization [facility] Address [address] [place] [address] Phone Care Team Providers Care Circular Distributor Name Role Phone Dandre Chavez MD Primary Care Provider [phone] Miguel Enciso MD Unavailable [phone] Encounter Details Date Type Department Care Team (Late st Contact Info) Description 09/18/2019 Ancillary Orders [facility] [address] Floor [place], [place] [phone] Miguel Enciso MD [address] [place] [address], [address] [place], [place] [phone] [email or web address] PVD (peripheral vascular disease) Social History Tobacco [...] disease documented in this encounter Care Teams Circular Distributor Relationship Specialty Start Date End Date Dandre Chavez MD [address] [place] [address] PCP - General 09/05/17 Miguel Enciso MD [address] [place] [address] [address] [place] [address] Cardiology 05/28/24 documented as of this encounter Additional Source Comments The information contained in this document represents components of the legal health record. It is not the complete legal health record.[facility]
--- OUTSIDE RECORDS SUMMARY | 2025-05-07 06:08 | XMS_ITS | Encounter Summary ---
Author Organization [facility] Address [address] [place] [address] Phone Care Team Providers Care Graphic Design Specialist Name Role Phone Dandre Chavez MD Primary Care Provider [phone] Miguel Enciso MD Unavailable [phone] Encounter Details Date Type Department Care Team (Late st Contact Info) Description 12/21/2022 Procedure Pass Echo Lab [address] [id number] Social History Tobacco Use Types Packs/Day Years [...] on filedocumented in this encounter Care Teams Graphic Design Specialist Relationship Specialty Start Date End Date Dandre Chavez MD [address] [place] [phone] PCP - General 09/05/17 Migule Enciso MD [address] [facility], [address] [place], [place] [phone] Cardiology 05/28/24 documented as of this encounter Additional Source Comments The information contained in this document represents components of the legal health record. It is not the complete legal health record.[facility]
--- OUTSIDE RECORDS SUMMARY | 2025-05-07 06:08 | XMS_ITS | Encounter Summary ---
Author Organization [facility] Address [address] [place] [address] Care Team Providers Care Financial Business Analyst Name Role Phone Amina Burciaga MD Primary Care Provider [phone] Encounter Details Date Type Department Care Team (Late st Contact Info) Description 07/13/[address] [facility] - Main Lab 299 [facility] [place] [address] Hortencia Mcclellan MD [address] [id number] Type 2 diabetes mellitus without complications (CMS/HCC [...] mmol/L LAB CHEMISTRY METHOD 07/14/2024 9:03 AM [facility] Potassium 3.8 3.5 - 5.5 mmol/L LAB CHEMISTRY METHOD 07/14/2024 9:03 AM [facility] Chloride 105 96 - 110 mmol/L LAB CHEMISTRY METHOD 07/14/2024 9:03 AM [facility] CO2 28 21 - 32 mmol/L LAB CHEMISTRY METHOD 07/14/2024 9:03 AM [facility] Anion Gap 6 3 - 11 LAB CHEMISTRY METHOD 07/14/2024 9:03 AM [facility] Glucose 105(H) 70 - 100 mg/dL LAB CHEMISTRY METHOD 07/14/2024 9:03 AM [facility] BUN 70(H) 5 - 25 mg/dL LAB CHEMISTRY METHOD 07/14/2024 9:03 AM [facility] Creatinine 3.26(H) 0.50 - 1.10 mg/dL LAB CHEMISTRY METHOD 07/14/2024 9:03 AM [facility] eGFR 14(L) >=60 mL/min/1. 73m2 LAB CHEMISTRY METHOD 07/14/2024 9:03 AM [facility] Comment:Calculation based on the Chronic Kidney Disease Epidemiology Collaboration (CKD-EPI) equation refit without adjustment for race. BUN/Creatinine Ratio 21.5 LAB CHEMISTRY METHOD 07/14/2024 9:03 AM [facility] Calcium 8.6 8.5 - 10.5 mg/dL LAB CHEMISTRY METHOD 07/14/2024 9:03 AM [facility] Blood Venous blood specimen / Unknown Venipuncture / Unknown 07/14/2024 6:08 AM EST 07/14/2024 8:03 AM EST us Hortencia Mcclellan MD LAB BLOOD ORDERABLES Fin al Result [facility] [address] [place] [address], * (ABNORMAL) Complete blood count (07/14/2024 6:08 AM EST) [facility] WBC 5.3 4.8 - 10.8 K/mcL LAB HEMETOLOGY METHOD 07/14/2024 8:32 AM [facility] RBC 3.00(L) 3.80 - 4.80 M/mcL LAB HEMETOLOGY METHOD 07/14/2024 8:32 AM [facility] Hemoglobin 8.3(L) 11.5 - 16.0 g/dL LAB HEMETOLOGY METHOD 07/14/2024 8:32 AM [facility] Hematocrit 29.9(L) 35.0 - 47.0 % LAB HEMETOLOGY METHOD 07/14/2024 8:32 AM [facility] MCV 101.4(H) 79.0 - 98.0 FL LAB HEMETOLOGY METHOD 07/14/2024 8:32 AM [facility] MCH 28.1 27.0 - 32.0 pcg LAB HEMETOLOGY METHOD 07/14/2024 8:32 AM [facility] MCHC 27.8(L) 32.0 - 37.0 g/dL LAB HEMETOLOGY METHOD 07/14/2024 8:32 AM [facility] RDW 20.0(H) 11.0 - 15.0 % LAB HEMETOLOGY METHOD 07/14/2024 8:32 AM [facility] Platelets 198 130 - 400 K/mcL LAB HEMETOLOGY METHOD 07/14/2024 8:32 AM [facility] MPV 10.3 7.0 - 11.0 FL LAB HEMETOLOGY METHOD 07/14/2024 8:32 AM [facility] NRBC 0.0 <1.0 % LAB HEMETOLOGY METHOD 07/14/2024 8:32 AM EST [facility] NRBC Absolute 0.00 <0.10 K/mcL LAB HEMETOLOGY METHOD 07/14/2024 8:32 AM EST [facility] Blood Venous blood specimen / Unknown Venipuncture / Unknown 07/14/2024 6:08 AM EST 07/14/2024 8:03 AM EST us Hortencia Mcclellan MD LAB BLOOD ORDERABLES Fin al Result [facility] [address] [place] [address], documented in this encounter Visit Diagnoses Diagnosis Type 2 diabetes mellitus without complications (CMS/HCC V24, CMS/HCC V28) Heart failure, unspecified (CMS/HCC V24, CMS/HCC V28) Heart failure, unspecified documented in this encounter Care Teams Financial Business Analyst Relationship Specialty Start Date End Date Amina Burciaga MD [address] [place] [address] PCP - General Hospitalist Medicine 09/11/24 documented as of this encounter
--- OUTSIDE RECORDS SUMMARY | 2025-05-07 06:08 | XMS_ITS | Encounter Summary ---
Author Organization [facility] Address [address] [place] [address] Care Team Providers Care Fruit Farmer Name Role Phone Amina Burciaga MD Primary Care Provider [phone] Encounter Details Date Type Department Care Team (Late st Contact Info) Description 08/10/2024 Lab Requisition [facility] - Main Lab 299 [facility] [place] [address] Hortencia Mcclellan MD [address] [id number] Type 2 diabetes mellitus without complications (CMS/HCC [...] unspecified documented in this encounter Care Teams Fruit Farmer Relationship Specialty Start Date End Date Amina Burciaga MD [address] [place] [address] PCP - General Hospitalist Medicine 09/11/24 documented as of this encounter
--- OUTSIDE RECORDS SUMMARY | 2025-05-07 06:08 | XMS_ITS | Encounter Summary ---
Author Organization [facility], Address [address] [place] [address] Phone Care Team Providers Care Trial Mgr Name Role Phone Dandre Chavez MD Primary Care Provider [phone] Encounter Details Date Type Department Care Team (Late st Contact Info) Description 02/08/2022 Documentation Only [facility], [address] [place] [address] Faina Villegas PA Social History Tobacco Use [...] on filedocumented in this encounter Care Teams Trial Mgr Relationship Specialty Start Date End Date Dandre Chavez MD [address] [place] [address], [address] [place], [place] PCP - General 07/07/19 documented as of this encounter
--- OUTSIDE RECORDS SUMMARY | 2025-05-07 06:08 | XMS_ITS | Encounter Summary ---
Author Organization [facility] Address [address] [place] [address] Phone Care Team Providers Care Celebrity Chef Entrepreneur Media Personality Name Role Phone Dandre Chavez MD Primary Care Provider [phone] Miguel Enciso MD Unavailable [phone] Encounter Details Date Type Department Care Team (Late st Contact Info) Description 04/03/2022 Procedure Pass [facility] [address] [place] [address] Social History Tobacco Use Types Packs/Day Years [...] on filedocumented in this encounter Care Teams Celebrity Chef Entrepreneur Media Personality Relationship Specialty Start Date End Date Dandre Chavez MD [address] [id number] PCP - General 09/05/17 Miguel Enciso MD [address] [place] [address], [address] [place], [place] [phone] Cardiology 05/28/24 documented as of this encounter Additional Source Comments The information contained in this document represents components of the legal health record. It is not the complete legal health record.[facility]
--- OUTSIDE RECORDS SUMMARY | 2025-05-07 06:08 | XMS_ITS | Encounter Summary ---
Author Organization [facility] Address [address] [place] [address] Care Team Providers Care Turner And Former Automatic Name Role Phone Amina Burciaga MD Primary Care Provider [phone] Encounter Details Date Type Department Care Team (Late st Contact Info) Description 07/27/2024 Lab Requisition [facility] - Main Lab 299 [facility] [place] [address] Hortencia Mcclellan MD [address] [id number] Type 2 diabetes mellitus without complications (CMS/HCC [...] mmol/L LAB CHEMISTRY METHOD 07/28/2024 8:47 AM [facility] Potassium 4.3 3.5 - 5.5 mmol/L LAB CHEMISTRY METHOD 07/28/2024 8:47 AM [facility] Chloride 107 96 - 110 mmol/L LAB CHEMISTRY METHOD 07/28/2024 8:47 AM [facility] CO2 25 21 - 32 mmol/L LAB CHEMISTRY METHOD 07/28/2024 8:47 AM [facility] Anion Gap 10 3 - 11 LAB CHEMISTRY METHOD 07/28/2024 8:47 AM [facility] Glucose 49(L) 70 - 100 mg/dL LAB CHEMISTRY METHOD 07/28/2024 8:47 AM [facility] BUN 45(H) 5 - 25 mg/dL LAB CHEMISTRY METHOD 07/28/2024 8:47 AM [facility] Creatinine 2.36(H) 0.50 - 1.10 mg/dL LAB CHEMISTRY METHOD 07/28/2024 8:47 AM [facility] eGFR 21(L) >=60 mL/min/1. 73m2 LAB CHEMISTRY METHOD 07/28/2024 8:47 AM [facility] Comment:Calculation based on the Chronic Kidney Disease Epidemiology Collaboration (CKD-EPI) equation refit without adjustment for race. BUN/Creatinine Ratio 19.1 LAB CHEMISTRY METHOD 07/28/2024 8:47 AM [facility] Calcium 9.2 8.5 - 10.5 mg/dL LAB CHEMISTRY METHOD 07/28/2024 8:47 AM [facility] Blood Venous blood specimen / Unknown Venipuncture / Unknown 07/28/2024 5:41 AM EST 07/28/2024 8:02 AM EST us Hortencia Mcclellan MD LAB BLOOD ORDERABLES Fin al Result [facility] [address] [place] [address], * (ABNORMAL) Complete blood count (07/28/2024 5:41 AM EST) [facility] WBC 4.1(L) 4.8 - 10.8 K/mcL LAB HEMETOLOGY METHOD 07/28/2024 8:20 AM [facility] RBC 3.00(L) 3.80 - 4.80 M/mcL LAB HEMETOLOGY METHOD 07/28/2024 8:20 AM [facility] Hemoglobin 8.6(L) 11.5 - 16.0 g/dL LAB HEMETOLOGY METHOD 07/28/2024 8:20 AM [facility] Hematocrit 29.9(L) 35.0 - 47.0 % LAB HEMETOLOGY METHOD 07/28/2024 8:20 AM [facility] MCV 99.7(H) 79.0 - 98.0 FL LAB HEMETOLOGY METHOD 07/28/2024 8:20 AM [facility] MCH 28.7 27.0 - 32.0 pcg LAB HEMETOLOGY METHOD 07/28/2024 8:20 AM [facility] MCHC 28.8(L) 32.0 - 37.0 g/dL LAB HEMETOLOGY METHOD 07/28/2024 8:20 AM [facility] RDW 19.6(H) 11.0 - 15.0 % LAB HEMETOLOGY METHOD 07/28/2024 8:20 AM [facility] Platelets 162 130 - 400 K/mcL LAB HEMETOLOGY METHOD 07/28/2024 8:20 AM [facility] MPV 10.5 7.0 - 11.0 FL LAB HEMETOLOGY METHOD 07/28/2024 8:20 AM [facility] NRBC 0.0 <1.0 % LAB HEMETOLOGY METHOD 07/28/2024 8:20 AM EST [facility] NRBC Absolute 0.00 <0.10 K/mcL LAB HEMETOLOGY METHOD 07/28/2024 8:20 AM EST [facility] Blood Venous blood specimen / Unknown Venipuncture / Unknown 07/28/2024 5:41 AM EST 07/28/2024 8:02 AM EST us Hortencia Mcclellan MD LAB BLOOD ORDERABLES Fin al Result [facility] [address] [place] [address], documented in this encounter Visit Diagnoses Diagnosis Type 2 diabetes mellitus without complications (CMS/HCC V24, CMS/HCC V28) Heart failure, unspecified (CMS/HCC V24, CMS/HCC V28) Heart failure, unspecified documented in this encounter Care Teams Turner And Former Automatic Relationship Specialty Start Date End Date Amina Burciaga MD [address] [place] [address] PCP - General Hospitalist Medicine 09/11/24 documented as of this encounter
--- OUTSIDE RECORDS SUMMARY | 2025-05-07 06:08 | XMS_ITS | Encounter Summary ---
Author Organization [facility] Address [address] [place], [place] [address] [place] [address] Phone Care Team Providers Care Server Developer Name Role Phone Dandre Chavez MD Primary Care Provider [phone] Miguel Enciso MD Unavailable [phone] Encounter Details Date Type Department Care Team (Late st Contact Info) Description 07/01/2024 Procedure Pass [facility] Cardiology Referral Images [address] [facility] [address] [place] [address] Social History Tobacco Use Types Packs/Day Years [...] on filedocumented in this encounter Care Teams Server Developer Relationship Specialty Start Date End Date Dandre Chavez MD [address] [place] [address] PCP - General 09/05/17 Miguel Enciso MD [address] [place] [address] [email or web address] Cardiology 05/28/24 documented as of this encounter Additional Source Comments The information contained in this document represents components of the legal health record. It is not the complete legal health record.[facility]
--- OUTSIDE RECORDS SUMMARY | 2025-05-07 06:08 | XMS_ITS | Encounter Summary ---
Author Organization [facility], Address [address] [place] [address] Phone Care Team Providers Care Community Relations Police Lieutenant Name Role Phone Dandre Chavez MD Primary Care Provider [phone] Encounter Details Date Type Department Care Team (Late st Contact Info) Description 02/09/2022 Documentation Only [facility], [address] [place] [address] Faina Villegas PA Social History Tobacco Use [...] on filedocumented in this encounter Care Teams Community Relations Police Lieutenant Relationship Specialty Start Date End Date Dandre Chavez MD [address] [place] [address], [address] [place], [place] PCP - General 07/07/19 documented as of this encounter
--- OUTSIDE RECORDS SUMMARY | 2025-05-07 06:08 | XMS_ITS | Encounter Summary ---
Author Organization [facility] Address [address] [place] [address] Phone Care Team Providers Care Paramedic Instructor Name Role Phone Dandre Chavez MD Primary Care Provider [phone] Miguel Enciso MD Unavailable [phone] Encounter Details Date Type Department Care Team (Late st Contact Info) Description 12/20/2022 Procedure Pass Non-Invasive Cardiology [address] [place], [place] [phone] Social History Tobacco Use Types Packs/Day Years [...] on filedocumented in this encounter Care Teams Paramedic Instructor Relationship Specialty Start Date End Date Dandre Chavez MD [address] [place] [id number] PCP - General 09/05/17 Miguel Enciso MD [address] [place] [address], [address] [place], [place] [phone] Cardiology 05/28/24 documented as of this encounter Additional Source Comments The information contained in this document represents components of the legal health record. It is not the complete legal health record.[facility]
--- OUTSIDE RECORDS SUMMARY | 2025-05-07 06:08 | XMS_ITS | Encounter Summary ---
Author Organization [facility] Address [address] [place], [place] [address] [place] [address] Phone Care Team Providers Care Underground Distribution Engineer Name Role Phone Dandre Chavez MD Primary Care Provider [phone] Miguel Enciso MD Unavailable Encounter Details Date Type Department Care Team (Late st Contact Info) Description 07/01/2024 Procedure Pass [facility] Cardiology Referral Images [address] [facility] [address] [place] [address] Social History Tobacco Use Types Packs/Day Years [...] on filedocumented in this encounter Care Teams Underground Distribution Engineer Relationship Specialty Start Date End Date Dandre Chavez MD [address] [place] [address] PCP - General 09/05/17 Miguel Enciso MD [address] [place] [address] [email or web address] Cardiology 05/28/24 documented as of this encounter Additional Source Comments The information contained in this document represents components of the legal health record. It is not the complete legal health record.[facility]
--- OUTSIDE RECORDS SUMMARY | 2025-05-07 06:08 | XMS_ITS | Encounter Summary ---
Author Organization [facility], Address [address] [place] [address] Phone Care Team Providers Care Line Out Man Name Role Phone Dandre Chavez MD Primary Care Provider [phone] Encounter Details Date Type Department Care Team (Late st Contact Info) Description 09/25/2021 Documentation Only [facility], [address] [place] [address] Faina Villegas PA Social History Tobacco Use [...] filedocumented in this encounter Care Teams Line Out Man Relationship Specialty Start Date End Date Dandre Chavez MD [address] [place] [address], [address] [place], [place] PCP - General 07/07/19 documented as of this encounter
--- OUTSIDE RECORDS SUMMARY | 2025-05-07 06:08 | XMS_ITS | Encounter Summary ---
Author Organization [facility] Address [address] [place] [address] Phone Care Team Providers Care Ssis Ssrs Developer Name Role Phone Dandre Chavez MD Primary Care Provider [phone] Miguel Enciso MD Unavailable [phone] Encounter Details Date Type Department Care Team (Late st Contact Info) Description 08/18/2021 Procedure Pass [facility] [address] [id number] Social History Tobacco Use Types Packs/Day Years [...] on filedocumented in this encounter Care Teams Ssis Ssrs Developer Relationship Specialty Start Date End Date Dandre Chavez MD [address] [place] [address] [phone] PCP - General 09/05/17 Miguel Enciso MD [address] [place] [address], [address] [place], [place] [phone] Cardiology 05/28/24 documented as of this encounter Additional Source Comments The information contained in this document represents components of the legal health record. It is not the complete legal health record.[facility]
--- OUTSIDE RECORDS SUMMARY | 2025-05-07 06:08 | XMS_ITS | Encounter Summary ---
Author Organization [facility], Address [address] [place] [address] Phone Care Team Providers Care Liquor Commissioner Name Role Phone Dandre Chavez MD Primary Care Provider [phone] Encounter Details Date Type Department Care Team (Late st Contact Info) Description 09/07/2022 Documentation Only [facility], [address] [place] [address] Faina Villegas PA Social History Tobacco Use [...] on filedocumented in this encounter Care Teams Liquor Commissioner Relationship Specialty Start Date End Date Dandre Chavez MD [address] [place] [address], [address] [place], [place] PCP - General 07/07/19 documented as of this encounter
--- OUTSIDE RECORDS SUMMARY | 2025-05-07 06:08 | XMS_ITS | Encounter Summary ---
Author Organization [facility] Address [address] [place] [address] Care Team Providers Care Furnace Feeder Name Role Phone Amina Burciaga MD Primary Care Provider [phone] Encounter Details Date Type Department Care Team (Late st Contact Info) Description 07/20/2024 Lab Requisition [facility] - Main Lab 299 [facility] [place] [address] Hortencia Mcclellan MD 819 [facility] 1 [place], [place] [phone] Type 2 diabetes mellitus without complications (CMS/HCC [...] mmol/L LAB CHEMISTRY METHOD 07/21/2024 8:50 AM [facility] Potassium 4.5 3.5 - 5.5 mmol/L LAB CHEMISTRY METHOD 07/21/2024 8:50 AM [facility] Chloride 108 96 - 110 mmol/L LAB CHEMISTRY METHOD 07/21/2024 8:50 AM [facility] CO2 27 21 - 32 mmol/L LAB CHEMISTRY METHOD 07/21/2024 8:50 AM [facility] Anion Gap 5 3 - 11 LAB CHEMISTRY METHOD 07/21/2024 8:50 AM [facility] Glucose 71 70 - 100 mg/dL LAB CHEMISTRY METHOD 07/21/2024 8:50 AM [facility] BUN 68(H) 5 - 25 mg/dL LAB CHEMISTRY METHOD 07/21/2024 8:50 AM [facility] Creatinine 3.00(H) 0.50 - 1.10 mg/dL LAB CHEMISTRY METHOD 07/21/2024 8:50 AM [facility] eGFR 16(L) >=60 mL/min/1. 73m2 LAB CHEMISTRY METHOD 07/21/2024 8:50 AM [facility] Comment:Calculation based on the Chronic Kidney Disease Epidemiology Collaboration (CKD-EPI) equation refit without adjustment for race. BUN/Creatinine Ratio 22.7 LAB CHEMISTRY METHOD 07/21/2024 8:50 AM [facility] Calcium 9.1 8.5 - 10.5 mg/dL LAB CHEMISTRY METHOD 07/21/2024 8:50 AM [facility] Blood Venous blood specimen / Unknown Venipuncture / Unknown 07/21/2024 5:53 AM EST 07/21/2024 7:55 AM EST us Hortencia Mcclellan MD LAB BLOOD ORDERABLES Fin al Result [facility] [address] [place] [address], * (ABNORMAL) Complete blood count (07/21/2024 5:53 AM EST) [facility] WBC 5.0 4.8 - 10.8 K/mcL LAB HEMETOLOGY METHOD 07/21/2024 8:26 AM [facility] RBC 2.90(L) 3.80 - 4.80 M/mcL LAB HEMETOLOGY METHOD 07/21/2024 8:26 AM [facility] Hemoglobin 8.2(L) 11.5 - 16.0 g/dL LAB HEMETOLOGY METHOD 07/21/2024 8:26 AM [facility] Hematocrit 29.0(L) 35.0 - 47.0 % LAB HEMETOLOGY METHOD 07/21/2024 8:26 AM [facility] MCV 100.7(H) 79.0 - 98.0 FL LAB HEMETOLOGY METHOD 07/21/2024 8:26 AM [facility] MCH 28.5 27.0 - 32.0 pcg LAB HEMETOLOGY METHOD 07/21/2024 8:26 AM [facility] MCHC 28.3(L) 32.0 - 37.0 g/dL LAB HEMETOLOGY METHOD 07/21/2024 8:26 AM [facility] RDW 19.2(H) 11.0 - 15.0 % LAB HEMETOLOGY METHOD 07/21/2024 8:26 AM [facility] Platelets 223 130 - 400 K/mcL LAB HEMETOLOGY METHOD 07/21/2024 8:26 AM [facility] MPV 10.0 7.0 - 11.0 FL LAB HEMETOLOGY METHOD 07/21/2024 8:26 AM [facility] NRBC 0.0 <1.0 % LAB HEMETOLOGY METHOD 07/21/2024 8:26 AM EST [facility] NRBC Absolute 0.00 <0.10 K/mcL LAB HEMETOLOGY METHOD 07/21/2024 8:26 AM EST [facility] Blood Venous blood specimen / Unknown Venipuncture / Unknown 07/21/2024 5:53 AM EST 07/21/2024 7:55 AM EST us Hortencia Mcclellan MD LAB BLOOD ORDERABLES Fin al Result [facility] [address] [place] [address], documented in this encounter Visit Diagnoses Diagnosis Type 2 diabetes mellitus without complications (CMS/HCC V24, CMS/HCC V28) Heart failure, unspecified (CMS/HCC V24, CMS/HCC V28) Heart failure, unspecified documented in this encounter Care Teams Furnace Feeder Relationship Specialty Start Date End Date Amina Burciaga MD [address] [place] [address] PCP - General Hospitalist Medicine 09/11/24 documented as of this encounter
--- OUTSIDE RECORDS SUMMARY | 2025-05-07 06:08 | XMS_ITS | Encounter Summary ---
Author Organization [facility], Address [address] [place] [address] Phone Care Team Providers Care Lead Process Engineer Name Role Phone Dandre Chavez MD Primary Care Provider [phone] Encounter Details Date Type Department Care Team (Late st Contact Info) Description 08/02/2022 Documentation Only [facility], [address] [place] [address] Faina Villegas PA Social History Tobacco Use [...] on filedocumented in this encounter Care Teams Lead Process Engineer Relationship Specialty Start Date End Date Dandre Chavez MD [address] [place] [address], [address] [place], [place] PCP - General 07/07/19 documented as of this encounter
--- OUTSIDE RECORDS SUMMARY | 2025-05-07 06:08 | XMS_ITS | Encounter Summary ---
Author Organization [facility] Address [address] [place] [address] Care Team Providers Care Gravity Meter Operator Name Role Phone Amina Burciaga MD Primary Care Provider [phone] Encounter Details Date Type Department Care Team (Late st Contact Info) Description 07/10/2024 Lab Requisition [facility] - Main Lab [address] [facility] [place] [address] Lloyd Jernigan MD [address] [place] [address] Unspecified dementia, unspecified severity, without behavioral disturbance, [...] mmol/L LAB CHEMISTRY METHOD 07/10/2024 9:59 AM [facility] Potassium 4.4 3.5 - 5.5 mmol/L LAB CHEMISTRY METHOD 07/10/2024 9:59 AM [facility] Chloride 103 96 - 110 mmol/L LAB CHEMISTRY METHOD 07/10/2024 9:59 AM [facility] CO2 31 21 - 32 mmol/L LAB CHEMISTRY METHOD 07/10/2024 9:59 AM [facility] Anion Gap 5 3 - 11 LAB CHEMISTRY METHOD 07/10/2024 9:59 AM [facility] Glucose 115(H) 70 - 100 mg/dL LAB CHEMISTRY METHOD 07/10/2024 9:59 AM [facility] BUN 62(H) 5 - 25 mg/dL LAB CHEMISTRY METHOD 07/10/2024 9:59 AM [facility] Creatinine 2.86(H) 0.50 - 1.10 mg/dL LAB CHEMISTRY METHOD 07/10/2024 9:59 AM [facility] eGFR 16(L) >=60 mL/min/1. 73m2 LAB CHEMISTRY METHOD 07/10/2024 9:59 AM [facility] Comment:Calculation based on the Chronic Kidney Disease Epidemiology Collaboration (CKD-EPI) equation refit without adjustment for race. BUN/Creatinine Ratio 21.7 LAB CHEMISTRY METHOD 07/10/2024 9:59 AM [facility] Calcium 9.3 8.5 - 10.5 mg/dL LAB CHEMISTRY METHOD 07/10/2024 9:59 AM [facility] Blood Venous blood specimen / Unknown Venipuncture / Unknown 07/10/2024 6:29 AM EST 07/10/2024 9:00 AM EST us Lloyd Jernigan MD LAB BLOOD ORDERABLES Final R esult [facility] [address] [place] [address], * (ABNORMAL) Complete blood count (07/10/2024 6:29 AM EST) WBC 5.3 4.8 - 10.8 K/mcL LAB HEMETOLOGY METHOD 07/10/2024 9:47 AM [facility] RBC 3.20(L) 3.80 - 4.80 M/mcL LAB HEMETOLOGY METHOD 07/10/2024 9:47 AM [facility] Hemoglobin 8.9(L) 11.5 - 16.0 g/dL LAB HEMETOLOGY METHOD 07/10/2024 9:47 AM [facility] Hematocrit 32.0(L) 35.0 - 47.0 % LAB HEMETOLOGY METHOD 07/10/2024 9:47 AM [facility] MCV 101.6(H) 79.0 - 98.0 FL LAB HEMETOLOGY METHOD 07/10/2024 9:47 AM [facility] MCH 28.3 27.0 - 32.0 pcg LAB HEMETOLOGY METHOD 07/10/2024 9:47 AM [facility] MCHC 27.8(L) 32.0 - 37.0 g/dL LAB HEMETOLOGY METHOD 07/10/2024 9:47 AM [facility] RDW 20.3(H) 11.0 - 15.0 % LAB HEMETOLOGY METHOD 07/10/2024 9:47 AM [facility] Platelets 239 130 - 400 K/mcL LAB HEMETOLOGY METHOD 07/10/2024 9:47 AM [facility] MPV 10.2 7.0 - 11.0 FL LAB HEMETOLOGY METHOD 07/10/2024 9:47 AM EST [facility] NRBC 0.0 <1.0 % LAB HEMETOLOGY METHOD 07/10/2024 9:47 AM EST [facility] NRBC Absolute 0.00 <0.10 K/mcL LAB HEMETOLOGY METHOD 07/10/2024 9:47 AM EST [facility] Blood Venous blood specimen / Unknown Venipuncture / Unknown 07/10/2024 6:29 AM EST 07/10/2024 9:00 AM EST Lloyd Jernigan MD LAB BLOOD ORDERABLES Final R esult Performing Organization Address City/[facility]/ZIP Co de Phone Number [facility] [address] [place] [address], [place] [phone] * Hemoglobin A1c (07/10/2024 6:29 AM EST) Hemoglobin A1C 5.7 <6.5 % LAB CHEMISTRY METHOD 07/10/2024 1:42 PM EST [facility] Mean Bld Glu Estim. 117 mg/dL LAB CHEMISTRY METHOD 07/10/2024 1:42 PM EST [facility] Blood Venous blood specimen / Unknown Venipuncture / Unknown 07/10/2024 6:29 AM EST 07/10/2024 9:00 AM EST Lloyd Jernigan MD LAB BLOOD ORDERABLES Final R esult [facility] [address] [place] [address], [place] [phone] documented in this encounter Visit Diagnoses Diagnosis Unspecified dementia, unspecified severity, without behavioral disturbance, psychotic disturbance, mood disturbance, and anxiety (CMS/HCC V24, CMS/HCC V28) documented in this encounter Care Teams Gravity Meter Operator Relationship Specialty Start Date End Date Amina Burciaga MD [address] [place] [address] PCP - General Hospitalist Medicine 09/11/24 documented as of this encounter
--- OUTSIDE RECORDS SUMMARY | 2025-05-07 06:08 | XMS_ITS | Encounter Summary ---
Author Organization [facility], Address [address] [place] [address] Phone Care Team Providers Care Traffic Control Flagger Name Role Phone Dandre Chavez MD Primary Care Provider [phone] Encounter Details Date Type Department Care Team (Late st Contact Info) Description 10/12/2021 Documentation Only [facility], [address] [place] [address] Faina Villegas PA Social History Tobacco Use [...] on filedocumented in this encounter Care Teams Traffic Control Flagger Relationship Specialty Start Date End Date Dandre Chavez MD [address] [place] [address], [address] [place], [place] PCP - General 07/07/19 documented as of this encounter
[2025-05-07 07:29] LABS: Anion Gap 19 (12-20); Blood Urea Nitrogen 106 mg/dL (9-16); Calcium 8.9 mg/dL (8.4-10.2); Carbon Dioxide 29 mmol/L (22-29); Chloride 96 mmol/L (96-108); Estimated Glomerular Filt Rate 15; Potassium 3.9 mmol/L (3.3-5.1); Sodium 140 mmol/L (135-145)
== END 2025-05-07 06:06 | disposition home or self-care (01) ==
LOC: HO.MMNH2L 06:05
PROVIDERS: Visit Provider Physician Assistant Medical
DX: I50.33 Acute on chronic diastolic (congestive) heart failure (principal)
CPT/HCPCS: 36415; 80048

== ENCOUNTER 2025-05-10 06:00 | Outpatient (REF) | payer MEDICARE, SELFPAY ==
--- OUTSIDE RECORDS SUMMARY | 2018-12-31 05:05 | XMS_ITS | Continuity of Care Document ---
Author Organization [facility] Address [address] [address] Phone Care Team Providers Care Operations Support Representative Name Role Phone Brodie Hinds DO Unavailable Unavailable Advance Directives Directive Yes / No Effective Date File Name No Information Encounters Encounter Description Practice Location Reason(s) For Visit Diagnoses Date Provider [facility], [address], [id number], [place] tel:[phone] [address] [place] [address] No Information 2018 Guzman Calloway. [address] [place] [address], [id number], [place]. tel:[phone] Family History Family Member Type Diagnosis Age [...]
[2025-05-10 05:57] LABS: MANUAL DIFF FLAG NO
--- OUTSIDE RECORDS SUMMARY | 2025-05-10 06:03 | XMS_ITS | Clinical Summary ---
Author Organization [address] Address [address] [place] [address] Phone Care Team Providers Care Gallery Or Museum Curator Name Role Phone Amina Burciaga MD Primary Care Provider [phone] Immunizations Name Administration Dates Next Due Pfizer [...] LAB CHEMISTRY METHOD 09/30/2024 1:04 PM EST [facility] Total Protein 6.2 [...] ORDERABLES Final Resu lt Performing Organization Address City/[facility]/ZIP Co de Phone Number [facility] [address] [place] [address], [place] [phone] * Hemoglobin A1c (09/23/2024 8:20 AM EST) [...] ORDERABLES Final Resul t Performing Organization Address City/[facility]/ZIP Co de Phone Number [facility] [address] [place] [address], [place] [phone] from Last 3 Months or Most Recently Relevant to Health Maintenance Insurance [place] Care Teams Gallery Or Museum Curator Relationship Specialty Start Date End Date Amina Burciaga MD [address] [place] [address] PCP - General Hospitalist Medicine 09/11/24
--- OUTSIDE RECORDS SUMMARY | 2025-05-10 06:03 | XMS_ITS | Clinical Summary ---
Author Organization [facility], Address [address] [place] [place] [address] Phone Care Team Providers Care Band Booker Name Role Phone Dandre Chavez MD Primary Care Provider [phone] Allergies Active Allergy Reactions Criticality Noted Date [...] Last Assessment & Plan: History of inferior [place] in 2013 with a stent to her [...] PM EST) Hemoglobin A1C 6.9(H) (4.0-5.6) % [facility] Comment: MONITORING: In known diabetic patients, [...] Supplement 1 Testing performed or reported by [facility], a Service of [address] [address] Louis Fry MD, [facility]# [id number] Blood specimen (specimen) Venous blood / Unknown 10/18/2022 2:34 PM EST 10/18/2022 2:35 PM EST us Faina LUCIANO LAB BLOOD ORDERABLES Final Res ult [facility] from Last 3 Months or Most Recently Relevant to Health Maintenance Insurance Medicare [facility] [place] [id number] Care Teams Band Booker Relationship Specialty Start Date End Date Dandre Chavez MD [address] [place] [address], [address] [place] PCP - General 07/07/19
--- OUTSIDE RECORDS SUMMARY | 2025-05-10 06:03 | XMS_ITS | Clinical Summary ---
Author Organization [facility] Address [address] [place] [address] Care Team Providers Care Locomotive Repairer Diesel Name Role Phone Dandre Chavez MD Primary Care Provider [phone] Allergies Active Allergy Reactions Criticality Noted Date [...] age to complete this topic Care Teams Locomotive Repairer Diesel Relationship Specialty Start Date End Date Dandre Chavez MD [address] [place] [address] [place] [phone] PCP - General Internal Medicine 11/06/22
--- OUTSIDE RECORDS SUMMARY | 2025-05-10 06:04 | XMS_ITS | Encounter Summary ---
Author Organization [facility] Address [address] [place] [address] Phone Care Team Providers Care Longwall Foreman Name Role Phone Dandre Chavez MD Primary Care Provider [phone] Miguel Enciso MD Unavailable [phone] Encounter Details Date Type Department Care Team (Late st Contact Info) Description 09/18/2019 Ancillary Orders [facility] [address] Floor [place], [place] [phone] Miguel Enciso MD [address] [place] [place] [address], [address] [place], [place] [phone] [email or web address] PVD (peripheral vascular disease) Social History [...] disease documented in this encounter Care Teams Longwall Foreman Relationship Specialty Start Date End Date Dandre Chavez MD [address] [place] [address] PCP - General 09/05/17 Miguel Enciso MD [address] [place] [address] [address] [place] [address] Cardiology 05/28/24 documented as of this encounter Additional Source Comments The information contained in this document represents components of the legal health record. It is not the complete legal health record.[facility]
--- OUTSIDE RECORDS SUMMARY | 2025-05-10 06:04 | XMS_ITS | Encounter Summary ---
Author Organization [facility], Address [address] [place] [address] Phone Care Team Providers Care Orthoptist Name Role Phone Dandre Chavez MD Primary Care Provider [phone] Encounter Details Date Type Department Care Team (Late st Contact Info) Description 01/08/2025 Documentation Only [facility], [address] [place] [address] Radha Chatterjee [place] [address] [place] [phone] Social History Tobacco Use Types Packs/Day Years [...] on filedocumented in this encounter Care Teams Orthoptist Relationship Specialty Start Date End Date Dandre Chavez MD [address] [place] [address], [address] [place], [place] PCP - General 07/07/19 documented as of this encounter
--- OUTSIDE RECORDS SUMMARY | 2025-05-10 06:04 | XMS_ITS | Encounter Summary ---
Author Organization [facility] Address [address] [place] [address] Phone Care Team Providers Care Health Administrator Name Role Phone Dandre Chavez MD Primary Care Provider [phone] Miguel Enciso MD Unavailable [phone] Encounter Details Date Type Department Care Team (Late st Contact Info) Description 04/03/2022 Procedure Pass [facility] [address] [place] [address] Social History Tobacco Use Types Packs/Day Years [...] on filedocumented in this encounter Care Teams Health Administrator Relationship Specialty Start Date End Date Dandre Chavez MD [address] [id number] PCP - General 09/05/17 Miguel Enciso MD [address] [place] [address], [address] [place], [place] [phone] Cardiology 05/28/24 documented as of this encounter Additional Source Comments The information contained in this document represents components of the legal health record. It is not the complete legal health record.[facility]
--- OUTSIDE RECORDS SUMMARY | 2025-05-10 06:04 | XMS_ITS | Encounter Summary ---
Author Organization [facility] Address [address] [place] [address] Care Team Providers Care Special Events Assistant Name Role Phone Amina Burciaga MD Primary Care Provider [phone] Encounter Details Date Type Department Care Team (Late st Contact Info) Description 07/23/2024 Lab Requisition [facility] - Main Lab [address] [place] [address] Hortencia Mcclellan MD [address] [phone] Chronic kidney disease, unspecified; Type 2 diabetes [...] LAB CHEMISTRY METHOD 07/23/2024 9:13 AM EST [facility] Potassium 3.8 3.5 - 5.5 mmol/L LAB CHEMISTRY METHOD 07/23/2024 9:13 AM EST [facility] Chloride 111(H) 96 - 110 mmol/L LAB CHEMISTRY METHOD 07/23/2024 9:13 AM [facility] CO2 27 21 - 32 mmol/L LAB CHEMISTRY METHOD 07/23/2024 9:13 AM [facility] Anion Gap 6 3 - 11 LAB CHEMISTRY METHOD 07/23/2024 9:13 AM [facility] Glucose 64(L) 70 - 100 mg/dL LAB CHEMISTRY METHOD 07/23/2024 9:13 AM [facility] BUN 62(H) 5 - 25 mg/dL LAB CHEMISTRY METHOD 07/23/2024 9:13 AM [facility] Creatinine 2.70(H) 0.50 - 1.10 mg/dL LAB CHEMISTRY METHOD 07/23/2024 9:13 AM [facility] eGFR 18(L) >=60 mL/min/1. 73m2 LAB CHEMISTRY METHOD 07/23/2024 9:13 AM [facility] Comment:Calculation based on the Chronic Kidney Disease Epidemiology Collaboration (CKD-EPI) equation refit without adjustment for race. BUN/Creatinine Ratio 23.0 LAB CHEMISTRY METHOD 07/23/2024 9:13 AM [facility] Calcium 9.2 8.5 - 10.5 mg/dL LAB CHEMISTRY METHOD 07/23/2024 9:13 AM [facility] Blood Venous blood specimen / Unknown Venipuncture / Unknown 07/23/2024 5:52 AM EST 07/23/2024 8:17 AM EST us Hortencia Mcclellan MD LAB BLOOD ORDERABLES Fin al Result [facility] [address] [place] [address], documented in this encounter Visit Diagnoses Diagnosis Chronic kidney disease, unspecified Type 2 diabetes mellitus without complications (CMS/HCC V24, CMS/HCC V28) documented in this encounter Care Teams Special Events Assistant Relationship Specialty Start Date End Date Amina Burciaga MD [address] [place] [address] PCP - General Hospitalist Medicine 09/11/24 documented as of this encounter
--- OUTSIDE RECORDS SUMMARY | 2025-05-10 06:04 | XMS_ITS | Encounter Summary ---
Author Organization [facility] Address [address] [place], [place] [address] [place] [address] Phone Care Team Providers Care Escalation Engineer Name Role Phone Dandre Chavez MD Primary Care Provider [phone] Miguel Enciso MD Unavailable [phone] Encounter Details Date Type Department Care Team (Late st Contact Info) Description 07/01/2024 Procedure Pass [facility] Cardiology Referral Images [address] [facility] [address] [place] [address] Social History Tobacco Use Types Packs/Day Years [...] on filedocumented in this encounter Care Teams Escalation Engineer Relationship Specialty Start Date End Date Dandre Chavez MD [address] [place] [address] PCP - General 09/05/17 Miguel Enciso MD [address] [place] [address] [email or web address] Cardiology 05/28/24 documented as of this encounter Additional Source Comments The information contained in this document represents components of the legal health record. It is not the complete legal health record.[facility]
--- OUTSIDE RECORDS SUMMARY | 2025-05-10 06:04 | XMS_ITS | Encounter Summary ---
Author Organization [facility] Address [address] [place], [place] [address] [place] [address] Phone Care Team Providers Care Public Health Training Assistant Name Role Phone Dandre Chavez MD Primary Care Provider [phone] Miguel Enciso MD Unavailable [phone] Encounter Details Date Type Department Care Team (Late st Contact Info) Description 07/01/2024 Procedure Pass [facility] Cardiology Referral Images [address] [facility] [address] [place] [address] Social History Tobacco Use Types Packs/Day Years [...] on filedocumented in this encounter Care Teams Public Health Training Assistant Relationship Specialty Start Date End Date Dandre Chavez MD [address] [place] [address] PCP - General 09/05/17 Miguel Enciso MD [address] [place] [address] [email or web address] Cardiology 05/28/24 documented as of this encounter Additional Source Comments The information contained in this document represents components of the legal health record. It is not the complete legal health record.[facility]
--- OUTSIDE RECORDS SUMMARY | 2025-05-10 06:04 | XMS_ITS | Encounter Summary ---
Author Organization [facility], Address [address] [place] [address] Phone Care Team Providers Care Anodizer Name Role Phone Dandre Chavez MD Primary Care Provider [phone] Encounter Details Date Type Department Care Team (Late st Contact Info) Description 02/09/2022 Documentation Only [facility], [address] [place] [address] Faina Villegas PA Social History Tobacco Use [...] on filedocumented in this encounter Care Teams Anodizer Relationship Specialty Start Date End Date Dandre Chavez MD [address] [place] [address], [address] [place], [place] PCP - General 07/07/19 documented as of this encounter
--- OUTSIDE RECORDS SUMMARY | 2025-05-10 06:04 | XMS_ITS | Encounter Summary ---
Author Organization [facility], Address [address] [place] [address] Phone Care Team Providers Care Dispatch Clerk Name Role Phone Dandre Chavez MD Primary Care Provider [phone] Encounter Details Date Type Department Care Team (Late st Contact Info) Description 08/02/2022 Documentation Only [facility], [address] [place] [address] Faina Villegas PA Social History Tobacco Use [...] on filedocumented in this encounter Care Teams Dispatch Clerk Relationship Specialty Start Date End Date Dandre Chavez MD [address] [place] [address], [address] [place], [place] PCP - General 07/07/19 documented as of this encounter
--- OUTSIDE RECORDS SUMMARY | 2025-05-10 06:04 | XMS_ITS | Encounter Summary ---
Author Organization [facility], Address [address] [place] [address] Phone Care Team Providers Care Toilet And Laundry Soap Supervisor Name Role Phone Dandre Chavez MD Primary Care Provider [phone] Encounter Details Date Type Department Care Team (Late st Contact Info) Description 08/06/2023 Documentation Only [facility], [address] [place] [address] Desi Rodriguez Social History Tobacco Use Types [...] on filedocumented in this encounter Care Teams Toilet And Laundry Soap Supervisor Relationship Specialty Start Date End Date Dandre Chavez MD [address] [place] [address], [address] [place], [place] PCP - General 07/07/19 documented as of this encounter
--- OUTSIDE RECORDS SUMMARY | 2025-05-10 06:04 | XMS_ITS | Encounter Summary ---
Author Organization [facility] Address [address] [place] [address] Care Team Providers Care Record Librarian Name Role Phone Amina Burciaga MD Primary Care Provider [phone] Encounter Details Date Type Department Care Team (Late st Contact Info) Description 08/10/2024 Lab Requisition [facility] - Main Lab [address] [facility] [place] [address] Hortencia Mcclellan MD [address] [id number] Type 2 diabetes mellitus without complications (CMS/HCC [...] unspecified documented in this encounter Care Teams Record Librarian Relationship Specialty Start Date End Date Amina Burciaga MD [address] [place] [address] PCP - General Hospitalist Medicine 09/11/24 documented as of this encounter
--- OUTSIDE RECORDS SUMMARY | 2025-05-10 06:04 | XMS_ITS | Encounter Summary ---
Author Organization [facility], Address [address] [place] [address] Phone Care Team Providers Care Facilities Maintenance Engineer Name Role Phone Dandre Chavez MD Primary Care Provider [phone] Encounter Details Date Type Department Care Team (Late st Contact Info) Description 09/25/2021 Documentation Only [facility], [address] [place] [address] Faina Villegas PA Social History Tobacco Use [...] on filedocumented in this encounter Care Teams Facilities Maintenance Engineer Relationship Specialty Start Date End Date Dandre Chavez MD [address] [place] [address], [address] [place], [place] PCP - General 07/07/19 documented as of this encounter
--- OUTSIDE RECORDS SUMMARY | 2025-05-10 06:04 | XMS_ITS | Encounter Summary ---
Author Organization [facility] Address [address] [place] [address] Care Team Providers Care Stripper Shovel Operator Name Role Phone Amina Burciaga MD Primary Care Provider [phone] Encounter Details Date Type Department Care Team (Late st Contact Info) Description 07/20/2024 Lab Requisition [facility] 299 [facility] [place] [address] Hortencia Mcclellan MD 819 [facility] 1 [place], [place] [id number] Type 2 diabetes mellitus without complications (CMS/HCC [...] mmol/L LAB CHEMISTRY METHOD 07/21/2024 8:50 AM [facility] Potassium 4.5 3.5 - 5.5 mmol/L LAB CHEMISTRY METHOD 07/21/2024 8:50 AM [facility] Chloride 108 96 - 110 mmol/L LAB CHEMISTRY METHOD 07/21/2024 8:50 AM [facility] CO2 27 21 - 32 mmol/L LAB CHEMISTRY METHOD 07/21/2024 8:50 AM [facility] Anion Gap 5 3 - 11 LAB CHEMISTRY METHOD 07/21/2024 8:50 AM [facility] Glucose 71 70 - 100 mg/dL LAB CHEMISTRY METHOD 07/21/2024 8:50 AM [facility] BUN 68(H) 5 - 25 mg/dL LAB CHEMISTRY METHOD 07/21/2024 8:50 AM [facility] Creatinine 3.00(H) 0.50 - 1.10 mg/dL LAB CHEMISTRY METHOD 07/21/2024 8:50 AM [facility] eGFR 16(L) >=60 mL/min/1. 73m2 LAB CHEMISTRY METHOD 07/21/2024 8:50 AM [facility] Comment:Calculation based on the Chronic Kidney Disease Epidemiology Collaboration (CKD-EPI) equation refit without adjustment for race. BUN/Creatinine Ratio 22.7 LAB CHEMISTRY METHOD 07/21/2024 8:50 AM [facility] Calcium 9.1 8.5 - 10.5 mg/dL LAB CHEMISTRY METHOD 07/21/2024 8:50 AM [facility] Blood Venous blood specimen / Unknown Venipuncture / Unknown 07/21/2024 5:53 AM EST 07/21/2024 7:55 AM EST us Hortencia Mcclellan MD LAB BLOOD ORDERABLES Fin al Result [facility] [address] [place] [address], * (ABNORMAL) Complete blood count (07/21/2024 5:53 AM EST) [facility] WBC 5.0 4.8 - 10.8 K/mcL LAB HEMETOLOGY METHOD 07/21/2024 8:26 AM [facility] RBC 2.90(L) 3.80 - 4.80 M/mcL LAB HEMETOLOGY METHOD 07/21/2024 8:26 AM [facility] Hemoglobin 8.2(L) 11.5 - 16.0 g/dL LAB HEMETOLOGY METHOD 07/21/2024 8:26 AM [facility] Hematocrit 29.0(L) 35.0 - 47.0 % LAB HEMETOLOGY METHOD 07/21/2024 8:26 AM [facility] MCV 100.7(H) 79.0 - 98.0 FL LAB HEMETOLOGY METHOD 07/21/2024 8:26 AM [facility] MCH 28.5 27.0 - 32.0 pcg LAB HEMETOLOGY METHOD 07/21/2024 8:26 AM [facility] MCHC 28.3(L) 32.0 - 37.0 g/dL LAB HEMETOLOGY METHOD 07/21/2024 8:26 AM [facility] RDW 19.2(H) 11.0 - 15.0 % LAB HEMETOLOGY METHOD 07/21/2024 8:26 AM [facility] Platelets 223 130 - 400 K/mcL LAB HEMETOLOGY METHOD 07/21/2024 8:26 AM [facility] MPV 10.0 7.0 - 11.0 FL LAB HEMETOLOGY METHOD 07/21/2024 8:26 AM [facility] NRBC 0.0 <1.0 % LAB HEMETOLOGY METHOD 07/21/2024 8:26 AM EST [facility] NRBC Absolute 0.00 <0.10 K/mcL LAB HEMETOLOGY METHOD 07/21/2024 8:26 AM EST [facility] Blood Venous blood specimen / Unknown Venipuncture / Unknown 07/21/2024 5:53 AM EST 07/21/2024 7:55 AM EST us Hortencia Mcclellan MD LAB BLOOD ORDERABLES Fin al Result [facility] [address] [place] [address], documented in this encounter Visit Diagnoses Diagnosis Type 2 diabetes mellitus without complications (CMS/HCC V24, CMS/HCC V28) Heart failure, unspecified (CMS/HCC V24, CMS/HCC V28) Heart failure, unspecified documented in this encounter Care Teams Stripper Shovel Operator Relationship Specialty Start Date End Date Amina Burciaga MD [address] [place] [address] PCP - General Hospitalist Medicine 09/11/24 documented as of this encounter
--- OUTSIDE RECORDS SUMMARY | 2025-05-10 06:04 | XMS_ITS | Encounter Summary ---
Author Organization [facility] Address [address] [place] [address] Care Team Providers Care Trapeze Artist Name Role Phone Amina Burciaga MD Primary Care Provider [phone] Encounter Details Date Type Department Care Team (Latest Contact Info) Description 09/11/2024 Lab Requisition [facility] - Main Lab 299 [facility] [place] [address] Amina Burciaga MD [address] [place] [address] Other ocean transportation intermediary (current) drug therapy; Type 2 diabetes mellitus [...] COUNT Routine 09/11/2024 9:47 AM EST Other ocean transportation intermediary (current) drug therapy Type 2 diabetes mellitus without complications (CMS/HCC) Heart failure, unspecified (CMS/HCC) MAGNESIUM Routine 09/11/2024 9:47 AM EST Other jail (current) drug therapy Type 2 diabetes mellitus without complications (CMS/HCC) Heart failure, unspecified (CMS/HCC) BASIC METABOLIC PANEL Routine 09/11/2024 9:47 AM EST Other jail (current) drug therapy Type 2 diabetes mellitus without complications (CMS/HCC) Heart failure, unspecified (CMS/HCC) documented in this encounter Results * Magnesium (09/11/2024 9:47 AM EST) [facility] Magnesium 2.1 1.9 - 2.6 mg/dL LAB CHEMISTRY METHOD 09/11/2024 12:45 PM [facility] Blood Venous blood specimen / Unknown Venipuncture / Unknown 09/11/2024 9:47 AM EST 09/11/2024 11:29 AM EST Amina Burciaga MD LAB BLOOD ORDERABLES Final Resul t [facility] [address] [place] [address], * (ABNORMAL) Basic metabolic panel (09/11/2024 9:47 AM EST) [facility] Sodium 137 133 - 145 mmol/L LAB CHEMISTRY METHOD 09/11/2024 12:54 PM [facility] Potassium 3.9 3.5 - 5.5 mmol/L LAB CHEMISTRY METHOD 09/11/2024 12:54 PM [facility] Chloride 103 96 - 110 mmol/L LAB CHEMISTRY METHOD 09/11/2024 12:54 PM [facility] CO2 26 21 - 32 mmol/L LAB CHEMISTRY METHOD 09/11/2024 12:54 PM [facility] Anion Gap 8 3 - 11 LAB CHEMISTRY METHOD 09/11/2024 12:54 PM [facility] Glucose 112(H) 70 - 100 mg/dL LAB CHEMISTRY METHOD 09/11/2024 12:54 PM [facility] BUN 50(H) 5 - 25 mg/dL LAB CHEMISTRY METHOD 09/11/2024 12:54 PM [facility] Creatinine 2.73(H) 0.50 - 1.10 mg/dL LAB CHEMISTRY METHOD 09/11/2024 12:54 PM [facility] eGFR 17(L) >=60 mL/min/1. 73m2 LAB CHEMISTRY METHOD 09/11/2024 12:54 PM [facility] Comment:Calculation based on the Chronic Kidney Disease Epidemiology Collaboration (CKD-EPI) equation refit without adjustment for race. BUN/Creatinine Ratio 18.3 LAB CHEMISTRY METHOD 09/11/2024 12:54 PM [facility] Calcium 8.6 8.5 - 10.5 mg/dL LAB CHEMISTRY METHOD 09/11/2024 12:54 PM [facility] Blood Venous blood specimen / Unknown Venipuncture / Unknown 09/11/2024 9:47 AM EST 09/11/2024 11:29 AM EST Amina Burciaga MD LAB BLOOD ORDERABLES Final Resul t [facility] [address] [place] [address], * (ABNORMAL) Complete blood count (09/11/2024 9:47 AM EST) WBC 6.9 4.8 - 10.8 K/mcL LAB HEMETOLOGY METHOD 09/11/2024 11:47 AM [facility] RBC 3.10(L) 3.80 - 4.80 M/mcL LAB HEMETOLOGY METHOD 09/11/2024 11:47 AM [facility] Hemoglobin 9.0(L) 11.5 - 16.0 g/dL LAB HEMETOLOGY METHOD 09/11/2024 11:47 AM [facility] Hematocrit 31.6(L) 35.0 - 47.0 % LAB HEMETOLOGY METHOD 09/11/2024 11:47 AM [facility] MCV 102.6(H) 79.0 - 98.0 FL LAB HEMETOLOGY METHOD 09/11/2024 11:47 AM EST [facility] MCH 29.2 27.0 - 32.0 pcg LAB HEMETOLOGY METHOD 09/11/2024 11:47 AM [facility] MCHC 28.5(L) 32.0 - 37.0 g/dL LAB HEMETOLOGY METHOD 09/11/2024 11:47 AM EST [facility] RDW 20.6(H) 11.0 - 15.0 % LAB HEMETOLOGY METHOD 09/11/2024 11:47 AM EST [facility] Platelets 180 130 - 400 K/mcL LAB HEMETOLOGY METHOD 09/11/2024 11:47 AM [facility] MPV 9.9 7.0 - 11.0 FL LAB HEMETOLOGY METHOD 09/11/2024 11:47 AM EST [facility] NRBC 0.0 <1.0 % LAB HEMETOLOGY METHOD 09/11/2024 11:47 AM [facility] NRBC Absolute 0.00 <0.10 K/mcL LAB HEMETOLOGY METHOD 09/11/2024 11:47 AM [facility] Blood Venous blood specimen / Unknown Venipuncture / Unknown 09/11/2024 9:47 AM EST 09/11/2024 11:29 AM EST us Amina Burciaga MD LAB BLOOD ORDERABLES Final Resul t [facility] [address] [place] [address], documented in this encounter Visit Diagnoses Diagnosis Other jail (current) drug therapy Type 2 diabetes mellitus without complications (CMS/HCC V24, CMS/HCC V28) Heart failure, unspecified (CMS/HCC V24, CMS/HCC V28) Heart failure, unspecified documented in this encounter Care Teams Trapeze Artist Relationship Specialty Start Date End Date Amina Burciaga MD [address] [place] [address] PCP - General Hospitalist Medicine 09/11/24 documented as of this encounter
--- OUTSIDE RECORDS SUMMARY | 2025-05-10 06:04 | XMS_ITS | Encounter Summary ---
Author Organization [facility], Address [address] [place] [address] Phone Care Team Providers Care Surface Plate Finisher Name Role Phone Dandre Chavez MD Primary Care Provider [phone] Encounter Details Date Type Department Care Team (Late st Contact Info) Description 11/29/2023 Documentation Only [facility], [address] [place] [address] Radha Chatterjee [place] [address] [place] [phone] Social History Tobacco Use Types Packs/Day Years [...] on filedocumented in this encounter Care Teams Surface Plate Finisher Relationship Specialty Start Date End Date Dandre Chavez MD [address] [place] [address], [address] [place], [place] PCP - General 07/07/19 documented as of this encounter
--- OUTSIDE RECORDS SUMMARY | 2025-05-10 06:04 | XMS_ITS | Encounter Summary ---
Author Organization [facility], Address [address] [place] [address] Phone Care Team Providers Care Talent Assistant Name Role Phone Dandre Chavez MD Primary Care Provider [phone] Encounter Details Date Type Department Care Team (Late st Contact Info) Description 01/14/2023 Documentation Only [facility], [address] [place] [address] Melissa Delgadillo [address] [place] [phone] Social History Tobacco Use Types Packs/Day Years [...] on filedocumented in this encounter Care Teams Talent Assistant Relationship Specialty Start Date End Date Dandre Chavez MD [address] [place] [address], [address] [place], [place] PCP - General 07/07/19 documented as of this encounter
--- OUTSIDE RECORDS SUMMARY | 2025-05-10 06:04 | XMS_ITS | Encounter Summary ---
Author Organization [facility], Address [address] [place] [address] Phone Care Team Providers Care Approver Name Role Phone Dandre Chavez MD Primary Care Provider [phone] Encounter Details Date Type Department Care Team (Late st Contact Info) Description 02/09/2022 Documentation Only [facility], [address] [place] [address] Faina Villegas PA Social History Tobacco Use [...] on filedocumented in this encounter Care Teams Approver Relationship Specialty Start Date End Date Dandre Chavez MD [address] [place] [address], [address] [place], [place] PCP - General 07/07/19 documented as of this encounter
--- OUTSIDE RECORDS SUMMARY | 2025-05-10 06:04 | XMS_ITS | Clinical Summary ---
Author Organization [facility] Address [address] [place] [address] Phone Care Team Providers Care Commercial Baking Teacher Name Role Phone Dandre Chavez MD Primary Care Provider [phone] Miguel Enciso MD Unavailable [phone] Allergies Active Allergy Reactions Criticality Noted Date [...] Active ferrous sulfate 325 mg (65 mg [place] iron) EC tablet Take 325 mg by [...] focus on healthy food choices. Atherosclerosis of [place] co ronary artery of [place] heart with angina pectoris 10/28/2018 Assessment & [...] (04/14/2020 10:40 PM EDT): History of inferior IL in 2013 with a stent to her [...] LAD. She presented with a non-ST relation [place] September 2018 and had a new culprit [...] will need to have this completed at [facility]. She is aware that this is [...] December. She will have this completed at [facility] due to having her stress test completed [...] this topic Medical Devices Implanted Type Area Pressroom Foreman Device Identifier Shelf Expiration Date Model / Serial / Lot Sensor Pulmonary Artery Delivery System Cardiomems - [id number] Implanted:Qt y: 1 on 04/03/2022 by Miguel Enciso MD at [facility] Implantable Monitor Left: Arterial [employer] [id number] 12/15/2023 CM PATIENT SYSTEM / [id number] / Description:Pulmonary artery Procedures Procedure Name Priority Date/Time Associated Diagnosis Comments COMPREHENSIVE METABOLIC PANEL Routine 04/18/2022 2:39 PM EDT Atherosclerosis of [place] coronary artery of [place] heart with angina pectoris Essential hypertension Ischemic cardiomyopathy PAD (peripheral artery disease) from Last 3 Months or Most Recently Relevant to Health Maintenance Results * (ABNORMAL) Comprehensive metabolic panel (04/18/2022 2:39 PM EDT) SODIUM 143 133 - 146 mmol/L [facility] POTASSIUM 4.5 3.3 - 5.1 mmol/L [facility] CHLORIDE 100 96 - 108 mmol/L [facility] CO2 34 21 - 35 mmol/L [facility] BUN 38(H) 6 - 19 mg/dL [facility] CREATININE 1.40 0.5 - 1.5 mg/dL [facility] GLUCOSE 163(H) 70 - 99 mg/dL [facility] ALBUMIN 4.0 3.9 - 4.8 g/dL [facility] TOTAL PROTEIN 7.5 6.5 - 8.0 g/dL [facility] CALCIUM 10.1 8.4 - 10.3 mg/dL [facility] ALKALINE PHOSPHATASE 94 39 - 117 U/L [facility] TOTAL BILIRUBIN 0.6 0.0 - 1.2 mg/dL [facility] AST 26 0 - 37 U/L [facility] ALT 12 0 - 40 U/L [facility] GLOBULIN 3.5 1 - 4.8 g/dL [facility] EGFR 39(L) >59 mL/min/1.7 3m2 [facility] Comment:Estimated glomerular filtration rate calculated using the CKD-EPI refit equation. ANION GAP 14 10 - 20 mmol/L [facility] Blood 04/18/2022 2:39 PM EDT 04/18/2022 2:42 PM EDT us Miguel Enciso MD LAB BLOOD ORDERABLES Final Result [facility] [address] [place] [address] from Last 3 Months or Most Recently Relevant to Health Maintenance Insurance * Guarantor: Amina Zamora Account Type Relation to Patient Date of Phone Billing Address Personal/Family Self 1945 [address] [place] [address] MEDICARE PART A & B [place] MED[place]ARE PREFERRED HMO REPLACEMENT [facility] [place] [address] MEDICARE PART A & B [place] MED[place] PREFERRED HMO REPLACEMENT [facility] [address] MEDICARE PART A & B Member Subscriber Plan / Payer (Ef fective 2012-Present) Name:Amina Zamora Member ID:[id number] Relation to Subscriber:Self Name:Amina Zamora Subscriber ID:[id number] Payer ID:[id number] Group ID:Not on file Type:Medicare Address: [employer] [address] [place] [phone] [facility] MEDICARE PREFERRED HMO REPLACEMENT MEDICARE PART A [...] & B [place] MEDICARE PREFERRED HMO REPLACEMENT [facility] Care Teams Commercial Baking Teacher Relationship Specialty Start Date End Date Dandre Chavez MD [address] [place] [address] PCP - General 09/05/17 Miguel Enciso MD [address] [place] [address] [email or web address] Cardiology 05/28/24 Additional Source Comments The information contained in this document represents components of the legal health record. It is not the complete legal health record.[facility]
--- OUTSIDE RECORDS SUMMARY | 2025-05-10 06:04 | XMS_ITS | Encounter Summary ---
Author Organization [facility] Address [address] [place] [address] Care Team Providers Care Photoengraving Etcher Name Role Phone Amina Burciaga MD Primary Care Provider [phone] Encounter Details Date Type Department Care Team (Late st Contact Info) Description 08/03/2024 Lab Requisition [facility] Lab 299 [facility] [place] [address] Hortencia Mcclellan MD [address] [id number] Type 2 diabetes mellitus without complications (CMS/HCC [...] mmol/L LAB CHEMISTRY METHOD 08/04/2024 9:42 AM [facility] Potassium 3.6 3.5 - 5.5 mmol/L LAB CHEMISTRY METHOD 08/04/2024 9:42 AM [facility] Chloride 106 96 - 110 mmol/L LAB CHEMISTRY METHOD 08/04/2024 9:42 AM [facility] CO2 29 21 - 32 mmol/L LAB CHEMISTRY METHOD 08/04/2024 9:42 AM [facility] Anion Gap 8 3 - 11 LAB CHEMISTRY METHOD 08/04/2024 9:42 AM [facility] Glucose 64(L) 70 - 100 mg/dL LAB CHEMISTRY METHOD 08/04/2024 9:42 AM [facility] BUN 44(H) 5 - 25 mg/dL LAB CHEMISTRY METHOD 08/04/2024 9:42 AM [facility] Creatinine 2.43(H) 0.50 - 1.10 mg/dL LAB CHEMISTRY METHOD 08/04/2024 9:42 AM [facility] eGFR 20(L) >=60 mL/min/1. 73m2 LAB CHEMISTRY METHOD 08/04/2024 9:42 AM [facility] Comment:Calculation based on the Chronic Kidney Disease Epidemiology Collaboration (CKD-EPI) equation refit without adjustment for race. BUN/Creatinine Ratio 18.1 LAB CHEMISTRY METHOD 08/04/2024 9:42 AM [facility] Calcium 8.8 8.5 - 10.5 mg/dL LAB CHEMISTRY METHOD 08/04/2024 9:42 AM [facility] Blood Venous blood specimen / Unknown Venipuncture / Unknown 08/04/2024 6:38 AM EST 08/04/2024 8:24 AM EST us Hortencia Mcclellan MD LAB BLOOD ORDERABLES Fin al Result [facility] [address] [place] [address], * (ABNORMAL) Complete blood count (08/04/2024 6:38 AM EST) [facility] WBC 4.5(L) 4.8 - 10.8 K/mcL LAB HEMETOLOGY METHOD 08/04/2024 9:19 AM [facility] RBC 3.20(L) 3.80 - 4.80 M/mcL LAB HEMETOLOGY METHOD 08/04/2024 9:19 AM [facility] Hemoglobin 9.0(L) 11.5 - 16.0 g/dL LAB HEMETOLOGY METHOD 08/04/2024 9:19 AM [facility] Hematocrit 31.8(L) 35.0 - 47.0 % LAB HEMETOLOGY METHOD 08/04/2024 9:19 AM [facility] MCV 100.0(H) 79.0 - 98.0 FL LAB HEMETOLOGY METHOD 08/04/2024 9:19 AM [facility] MCH 28.3 27.0 - 32.0 pcg LAB HEMETOLOGY METHOD 08/04/2024 9:19 AM [facility] MCHC 28.3(L) 32.0 - 37.0 g/dL LAB HEMETOLOGY METHOD 08/04/2024 9:19 AM [facility] RDW 18.9(H) 11.0 - 15.0 % LAB HEMETOLOGY METHOD 08/04/2024 9:19 AM [facility] Platelets 188 130 - 400 K/mcL LAB HEMETOLOGY METHOD 08/04/2024 9:19 AM [facility] MPV 10.6 7.0 - 11.0 FL LAB HEMETOLOGY METHOD 08/04/2024 9:19 AM [facility] NRBC 0.0 <1.0 % LAB HEMETOLOGY METHOD 08/04/2024 9:19 AM EST [facility] NRBC Absolute 0.00 <0.10 K/mcL LAB HEMETOLOGY METHOD 08/04/2024 9:19 AM EST [facility] Blood Venous blood specimen / Unknown Venipuncture / Unknown 08/04/2024 6:38 AM EST 08/04/2024 8:24 AM EST us Hortencia Mcclellan MD LAB BLOOD ORDERABLES Fin al Result [facility] [address] [place] [address], documented in this encounter Visit Diagnoses Diagnosis Type 2 diabetes mellitus without complications (CMS/HCC V24, CMS/HCC V28) Heart failure, unspecified (CMS/HCC V24, CMS/HCC V28) Heart failure, unspecified documented in this encounter Care Teams Photoengraving Etcher Relationship Specialty Start Date End Date Amina Burciaga MD [address] [place] [address] PCP - General Hospitalist Medicine 09/11/24 documented as of this encounter
--- OUTSIDE RECORDS SUMMARY | 2025-05-10 06:04 | XMS_ITS | Encounter Summary ---
Author Organization [facility] Address [address] [place] [address] Phone Care Team Providers Care Boiler Reliner Name Role Phone Dandre Chavez MD Primary Care Provider [phone] Miguel Enciso MD Unavailable [phone] Encounter Details Date Type Department Care Team (Late st Contact Info) Description 08/18/2021 Procedure Pass Echo Lab [address] [id number] Social History Tobacco Use Types Packs/Day Years [...] on filedocumented in this encounter Care Teams Boiler Reliner Relationship Specialty Start Date End Date Dandre Chavez MD [address] [place] [phone] PCP - General 09/05/17 Miguel Enciso MD [address] [place] [address], [address] [place], [place] [phone] Cardiology 05/28/24 documented as of this encounter Additional Source Comments The information contained in this document represents components of the legal health record. It is not the complete legal health record.[facility]
--- OUTSIDE RECORDS SUMMARY | 2025-05-10 06:04 | XMS_ITS | Encounter Summary ---
Author Organization [facility], Address [address] [place] [address] Phone Care Team Providers Care Heat Seal Operator Name Role Phone Dandre Chavez MD Primary Care Provider [phone] Encounter Details Date Type Department Care Team (Late st Contact Info) Description 12/31/2022 Documentation Only [facility], [address] [place] [address] Melissa Delgadillo [address] [place] [phone] Social History Tobacco Use Types Packs/Day Years [...] on filedocumented in this encounter Care Teams Heat Seal Operator Relationship Specialty Start Date End Date Dandre Chavez MD [address] [place] [address], [address] [place], [place] PCP - General 07/07/19 documented as of this encounter
--- OUTSIDE RECORDS SUMMARY | 2025-05-10 06:04 | XMS_ITS | Encounter Summary ---
Author Organization [facility] Address [address] [place] [address] Care Team Providers Care Sheet Metal Pattern Cutter Name Role Phone Amina Burciaga MD Primary Care Provider [phone] Encounter Details Date Type Department Care Team (Late st Contact Info) Description 07/27/2024 Lab Requisition [facility] - Main Lab 299 [facility] [place] [address] Hortencia Mcclellan MD [address] [id number] Type 2 diabetes mellitus without complications (CMS/HCC [...] mmol/L LAB CHEMISTRY METHOD 07/28/2024 8:47 AM [facility] Potassium 4.3 3.5 - 5.5 mmol/L LAB CHEMISTRY METHOD 07/28/2024 8:47 AM [facility] Chloride 107 96 - 110 mmol/L LAB CHEMISTRY METHOD 07/28/2024 8:47 AM [facility] CO2 25 21 - 32 mmol/L LAB CHEMISTRY METHOD 07/28/2024 8:47 AM [facility] Anion Gap 10 3 - 11 LAB CHEMISTRY METHOD 07/28/2024 8:47 AM [facility] Glucose 49(L) 70 - 100 mg/dL LAB CHEMISTRY METHOD 07/28/2024 8:47 AM [facility] BUN 45(H) 5 - 25 mg/dL LAB CHEMISTRY METHOD 07/28/2024 8:47 AM [facility] Creatinine 2.36(H) 0.50 - 1.10 mg/dL LAB CHEMISTRY METHOD 07/28/2024 8:47 AM [facility] eGFR 21(L) >=60 mL/min/1. 73m2 LAB CHEMISTRY METHOD 07/28/2024 8:47 AM [facility] Comment:Calculation based on the Chronic Kidney Disease Epidemiology Collaboration (CKD-EPI) equation refit without adjustment for race. BUN/Creatinine Ratio 19.1 LAB CHEMISTRY METHOD 07/28/2024 8:47 AM [facility] Calcium 9.2 8.5 - 10.5 mg/dL LAB CHEMISTRY METHOD 07/28/2024 8:47 AM [facility] Blood Venous blood specimen / Unknown Venipuncture / Unknown 07/28/2024 5:41 AM EST 07/28/2024 8:02 AM EST us Hortencia Mcclellan MD LAB BLOOD ORDERABLES Fin al Result [facility] [address] [place] [address], * (ABNORMAL) Complete blood count (07/28/2024 5:41 AM EST) [facility] WBC 4.1(L) 4.8 - 10.8 K/mcL LAB HEMETOLOGY METHOD 07/28/2024 8:20 AM [facility] RBC 3.00(L) 3.80 - 4.80 M/mcL LAB HEMETOLOGY METHOD 07/28/2024 8:20 AM [facility] Hemoglobin 8.6(L) 11.5 - 16.0 g/dL LAB HEMETOLOGY METHOD 07/28/2024 8:20 AM [facility] Hematocrit 29.9(L) 35.0 - 47.0 % LAB HEMETOLOGY METHOD 07/28/2024 8:20 AM [facility] MCV 99.7(H) 79.0 - 98.0 FL LAB HEMETOLOGY METHOD 07/28/2024 8:20 AM [facility] MCH 28.7 27.0 - 32.0 pcg LAB HEMETOLOGY METHOD 07/28/2024 8:20 AM [facility] MCHC 28.8(L) 32.0 - 37.0 g/dL LAB HEMETOLOGY METHOD 07/28/2024 8:20 AM [facility] RDW 19.6(H) 11.0 - 15.0 % LAB HEMETOLOGY METHOD 07/28/2024 8:20 AM [facility] Platelets 162 130 - 400 K/mcL LAB HEMETOLOGY METHOD 07/28/2024 8:20 AM [facility] MPV 10.5 7.0 - 11.0 FL LAB HEMETOLOGY METHOD 07/28/2024 8:20 AM [facility] NRBC 0.0 <1.0 % LAB HEMETOLOGY METHOD 07/28/2024 8:20 AM EST [facility] NRBC Absolute 0.00 <0.10 K/mcL LAB HEMETOLOGY METHOD 07/28/2024 8:20 AM EST [facility] Blood Venous blood specimen / Unknown Venipuncture / Unknown 07/28/2024 5:41 AM EST 07/28/2024 8:02 AM EST us Hortencia Mcclellan MD LAB BLOOD ORDERABLES Fin al Result [facility] [address] [place] [address], documented in this encounter Visit Diagnoses Diagnosis Type 2 diabetes mellitus without complications (CMS/HCC V24, CMS/HCC V28) Heart failure, unspecified (CMS/HCC V24, CMS/HCC V28) Heart failure, unspecified documented in this encounter Care Teams Sheet Metal Pattern Cutter Relationship Specialty Start Date End Date Amina Burciaga MD [address] [place] [address] PCP - General Hospitalist Medicine 09/11/24 documented as of this encounter
--- OUTSIDE RECORDS SUMMARY | 2025-05-10 06:04 | XMS_ITS | Encounter Summary ---
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 Max HR 89 BPM [facility] Resting HR 78 BPM [facility] Resting BP Systolic 150 mmHg [facility] Resting BP Diastolic 80 mmHg [facility] Peak METS 1.0 METS [facility] Peak HR 83 BPM 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 It is not the complete legal health record.[facility]
--- OUTSIDE RECORDS SUMMARY | 2025-05-10 06:04 | XMS_ITS | Encounter Summary ---
Author Organization [facility] Address [address] [place] [address] Care Team Providers Care Experimental Aircraft Mechanic Name Role Phone Amina Burciaga MD Primary Care Provider [phone] Encounter Details Date Type Department Care Team (Late st Contact Info) Description 09/30/2024 Lab Requisition [facility] - Main Lab 299 [facility] [place] [address] Isaac Stark MD [address] [place] [address] [place] [address] Heart failure, unspecified [...] (ABNORMAL) Vitamin B12 (09/30/2024 9:57 AM EST) [facility] Vitamin B-12 1,028(H) 250 - 900 pcg/mL LAB CHEMISTRY METHOD 09/30/2024 1:04 PM [facility] Blood Venous blood specimen / Unknown Venipuncture / Unknown 09/30/2024 9:57 AM EST 09/30/2024 10:50 AM EST us Isaac Stark MD LAB BLOOD ORDERABLES Final Resu lt [facility] [address] [place] [address], [place] [phone] * (ABNORMAL) Comprehensive metabolic panel (09/30/2024 9:57 AM EST) [facility] Sodium 138 133 - 145 mmol/L [...] [facility] Total Protein 6.2 6.0 - [...] MD LAB BLOOD ORDERABLES Final Resu lt [facility] [address] [place] [address], * (ABNORMAL) Complete blood count (09/30/2024 9:57 AM EST) [facility] WBC 5.9 4.8 - 10.8 K/mcL LAB HEMETOLOGY METHOD 09/30/2024 12:25 PM [facility] RBC 3.80 3.80 - 4.80 M/mcL LAB HEMETOLOGY METHOD 09/30/2024 12:25 PM [facility] Hemoglobin 11.2(L) 11.5 - 16.0 g/dL LAB HEMETOLOGY METHOD 09/30/2024 12:25 PM [facility] Hematocrit 37.7 35.0 - 47.0 % LAB HEMETOLOGY METHOD 09/30/2024 12:25 PM [facility] MCV 98.2(H) 79.0 - 98.0 FL LAB HEMETOLOGY METHOD 09/30/2024 12:25 PM [facility] MCH 29.2 27.0 - 32.0 pcg LAB HEMETOLOGY METHOD 09/30/2024 12:25 PM [facility] MCHC 29.7(L) 32.0 - 37.0 g/dL LAB HEMETOLOGY METHOD 09/30/2024 12:25 PM [facility] RDW 17.7(H) 11.0 - 15.0 % LAB HEMETOLOGY METHOD 09/30/2024 12:25 PM [facility] Platelets 183 130 - 400 K/mcL LAB HEMETOLOGY METHOD 09/30/2024 12:25 PM [facility] MPV 11.7(H) 7.0 - 11.0 FL LAB HEMETOLOGY METHOD 09/30/2024 12:25 PM [facility] NRBC 0.0 <1.0 % LAB HEMETOLOGY METHOD 09/30/2024 12:25 PM [facility] NRBC Absolute 0.00 <0.10 K/mcL LAB HEMETOLOGY METHOD 09/30/2024 12:25 PM EST [facility] Blood Venous blood specimen / Unknown Venipuncture / Unknown 09/30/2024 9:57 AM EST 09/30/2024 10:50 AM EST us Isaac Stark MD LAB BLOOD ORDERABLES Final Resu lt Performing Organization Address City/[facility]/ZIP Co de Phone Number [facility] [address] [place] [address], [place] [phone] * Vitamin D 25 hydroxy (09/30/2024 9:57 AM EST) Vit D, 25-Hydroxy 54.9 30.0 - 80.0 ng/mL LAB CHEMISTRY METHOD 09/30/2024 12:48 PM EST [facility] Blood Venous blood specimen / Unknown Venipuncture / Unknown 09/30/2024 9:57 AM EST 09/30/2024 10:50 AM EST us Isaac Stark MD LAB BLOOD ORDERABLES Final Resu lt Performing Organization Address [facility]/ZIP Co de Phone Number [facility] [address] [place] [address], [place] [phone] documented in this encounter Visit Diagnoses Diagnosis Heart failure, unspecified (CMS/HCC V24, CMS/HCC V28) Heart failure, unspecified Vitamin D deficiency, unspecified documented in this encounter Care Teams Experimental Aircraft Mechanic Relationship Specialty Start Date End Date Amina Burciaga MD [address] [place] [phone] PCP - General Hospitalist Medicine 09/11/24 documented as of this encounter
--- OUTSIDE RECORDS SUMMARY | 2025-05-10 06:04 | XMS_ITS | Encounter Summary ---
Author Organization [facility] Address [address] [place] [phone] Phone Care Team Providers Care Statistical Programmer Analyst Name Role Phone Dandre Chavez MD Primary Care Provider [phone] Miguel Enciso MD Unavailable [phone] Encounter Details Date Type Department Care Team (Late st Contact Info) Description 12/21/2022 Procedure Pass Echo Lab [address] [id number] Social History Tobacco Use Types Packs/Day Years [...] on filedocumented in this encounter Care Teams Statistical Programmer Analyst Relationship Specialty Start Date End Date Dandre Chavez MD [address] [place] [phone] PCP - General 09/05/17 Miguel Enciso MD 22 [facility], [address] [place], [place] [phone] Cardiology 05/28/24 documented as of this encounter Additional Source Comments The information contained in this document represents components of the legal health record. It is not the complete legal health record.[facility]
--- OUTSIDE RECORDS SUMMARY | 2025-05-10 06:04 | XMS_ITS | Encounter Summary ---
Author Organization [facility], Address [address] [place] [address] Phone Care Team Providers Care Shaft Sinker Name Role Phone Dandre Chavez MD Primary Care Provider [phone] Encounter Details Date Type Department Care Team (Late st Contact Info) Description 09/07/2022 Documentation Only [facility], [address] [place] [address] Faina Villegas PA Social History Tobacco Use [...] on filedocumented in this encounter Care Teams Shaft Sinker Relationship Specialty Start Date End Date Dandre Chavez MD [address] [place] [address], [address] [place], [place] PCP - General 07/07/19 documented as of this encounter
--- OUTSIDE RECORDS SUMMARY | 2025-05-10 06:04 | XMS_ITS | Encounter Summary ---
Author Organization [facility] Address [address] [place] [address] Care Team Providers Care Ceiling Insulation Blower Name Role Phone Amina Burciaga MD Primary Care Provider [phone] Encounter Details Date Type Department Care Team (Latest Contact Info) Description 09/07/2024 Lab Requisition [facility] - Main Lab 299 [facility] [address] Amina Burciaga MD [address] [place] [address] Heart failure, unspecified (CMS/HCC V24, [...] unspecified Type 2 diabetes mellitus without complications ([facility]) documented in this encounter Results * Hemoglobin A1c (09/07/2024 6:24 AM EST) Pathologist [facility] Hemoglobin A1C 5.1 <6.5 % LAB CHEMISTRY METHOD 09/07/2024 11:11 AM EST [facility] Mean Bld Glu Estim. 100 mg/dL LAB CHEMISTRY METHOD 09/07/2024 11:11 AM [facility] Blood Venous blood specimen / Unknown Venipuncture / Unknown 09/07/2024 6:24 AM EST 09/07/2024 8:12 AM EST Amina Burciaga MD LAB BLOOD ORDERABLES Final Resul t [facility] [address] [place] [address], * (ABNORMAL) Comprehensive metabolic panel (09/07/2024 6:24 AM EST) [facility] Sodium 140 133 - 145 mmol/L LAB CHEMISTRY METHOD 09/07/2024 9:18 AM [facility] Potassium 3.8 3.5 - 5.5 mmol/L LAB CHEMISTRY METHOD 09/07/2024 9:18 AM [facility] Chloride 106 96 - 110 mmol/L LAB CHEMISTRY METHOD 09/07/2024 9:18 AM [facility] CO2 28 21 - 32 mmol/L LAB CHEMISTRY METHOD 09/07/2024 9:18 AM [facility] Anion Gap 6 3 - 11 LAB CHEMISTRY METHOD 09/07/2024 9:18 AM [facility] Glucose 61(L) 70 - 100 mg/dL LAB CHEMISTRY METHOD 09/07/2024 9:18 AM [facility] BUN 59(H) 5 - 25 mg/dL LAB CHEMISTRY METHOD 09/07/2024 9:18 AM [facility] Creatinine 3.13(H) 0.50 - 1.10 mg/dL LAB CHEMISTRY METHOD 09/07/2024 9:18 AM [facility] eGFR 15(L) >=60 mL/min/1. 73m2 LAB CHEMISTRY METHOD 09/07/2024 9:18 AM [facility] Comment:Calculation based on the Chronic Kidney Disease Epidemiology Collaboration (CKD-EPI) equation refit without adjustment for race. BUN/Creatinine Ratio 18.8 LAB CHEMISTRY METHOD 09/07/2024 9:18 AM [facility] Calcium 9.0 8.5 - 10.5 mg/dL LAB CHEMISTRY METHOD 09/07/2024 9:18 AM [facility] AST (SGOT) 17 10 - 42 unit/L LAB CHEMISTRY METHOD 09/07/2024 9:18 AM [facility] ALT (SGPT) 20 10 - 60 unit/L LAB CHEMISTRY METHOD 09/07/2024 9:18 AM [facility] Alkaline Phosphatase 60 42 - 121 unit/L LAB CHEMISTRY METHOD 09/07/2024 9:18 AM [facility] Total Protein 6.9 6.0 - 8.0 g/dL LAB CHEMISTRY METHOD 09/07/2024 9:18 AM [facility] Albumin 3.0(L) 3.2 - 5.0 g/dL LAB CHEMISTRY METHOD 09/07/2024 9:18 AM [facility] Total Bilirubin 0.5 0.0 - 1.4 mg/dL LAB CHEMISTRY METHOD 09/07/2024 9:18 AM [facility] Blood Venous blood specimen / Unknown Venipuncture / Unknown 09/07/2024 6:24 AM EST 09/07/2024 8:12 AM EST us Amina Burciaga MD LAB BLOOD ORDERABLES Final Resul t [facility] [address] [place] [address], * (ABNORMAL) Complete blood count (09/07/2024 6:24 AM EST) [facility] Signature WBC 4.7(L) 4.8 - 10.8 K/mcL LAB HEMETOLOGY METHOD 09/07/2024 8:53 AM [facility] RBC 3.00(L) 3.80 - 4.80 M/mcL LAB HEMETOLOGY METHOD 09/07/2024 8:53 AM [facility] Hemoglobin 8.9(L) 11.5 - 16.0 g/dL LAB HEMETOLOGY METHOD 09/07/2024 8:53 AM [facility] Hematocrit 30.6(L) 35.0 - 47.0 % LAB HEMETOLOGY METHOD 09/07/2024 8:53 AM [facility] MCV 101.7(H) 79.0 - 98.0 FL LAB HEMETOLOGY METHOD 09/07/2024 8:53 AM [facility] MCH 29.6 27.0 - 32.0 pcg LAB HEMETOLOGY METHOD 09/07/2024 8:53 AM [facility] MCHC 29.1(L) 32.0 - 37.0 g/dL LAB HEMETOLOGY METHOD 09/07/2024 8:53 AM [facility] RDW 20.1(H) 11.0 - 15.0 % LAB HEMETOLOGY METHOD 09/07/2024 8:53 AM [facility] Platelets 196 130 - 400 K/mcL LAB HEMETOLOGY METHOD 09/07/2024 8:53 AM [facility] MPV 10.0 7.0 - 11.0 FL LAB HEMETOLOGY METHOD 09/07/2024 8:53 AM [facility] NRBC 0.0 <1.0 % LAB HEMETOLOGY METHOD 09/07/2024 8:53 AM EST [facility] NRBC Absolute 0.00 <0.10 K/mcL LAB HEMETOLOGY METHOD 09/07/2024 8:53 AM EST [facility] Blood Venous blood specimen / Unknown Venipuncture / Unknown 09/07/2024 6:24 AM EST 09/07/2024 8:12 AM EST us Amina Burciaga MD LAB BLOOD ORDERABLES Final Resul t [facility] [address] [place] [address], documented in this encounter Visit Diagnoses Diagnosis Heart failure, unspecified (CMS/HCC V24, CMS/HCC V28) Heart failure, unspecified Chronic kidney disease, unspecified Type 2 diabetes mellitus without complications (CMS/HCC V24, CMS/HCC V28) documented in this encounter Care Teams Ceiling Insulation Blower Relationship Specialty Start Date End Date Amina Burciaga MD [address] [place] [address] PCP - General Hospitalist Medicine 09/11/24 documented as of this encounter
--- OUTSIDE RECORDS SUMMARY | 2025-05-10 06:04 | XMS_ITS | Encounter Summary ---
Author Organization [facility] Address [address] [place] [address] Care Team Providers Care Hearing Screener Name Role Phone Amina Burciaga MD Primary Care Provider [phone] Encounter Details Date Type Department Care Team (Late st Contact Info) Description 07/10/2024 Lab Requisition [facility] - Main Lab 299 [facility] [place] [address] Lloyd Jernigan MD [address] [place] [address] Unspecified dementia, unspecified severity, without behavioral disturbance, [...] mmol/L LAB CHEMISTRY METHOD 07/10/2024 9:59 AM [facility] Potassium 4.4 3.5 - 5.5 mmol/L LAB CHEMISTRY METHOD 07/10/2024 9:59 AM [facility] Chloride 103 96 - 110 mmol/L LAB CHEMISTRY METHOD 07/10/2024 9:59 AM [facility] CO2 31 21 - 32 mmol/L LAB CHEMISTRY METHOD 07/10/2024 9:59 AM [facility] Anion Gap 5 3 - 11 LAB CHEMISTRY METHOD 07/10/2024 9:59 AM [facility] Glucose 115(H) 70 - 100 mg/dL LAB CHEMISTRY METHOD 07/10/2024 9:59 AM [facility] BUN 62(H) 5 - 25 mg/dL LAB CHEMISTRY METHOD 07/10/2024 9:59 AM [facility] Creatinine 2.86(H) 0.50 - 1.10 mg/dL LAB CHEMISTRY METHOD 07/10/2024 9:59 AM [facility] eGFR 16(L) >=60 mL/min/1. 73m2 LAB CHEMISTRY METHOD 07/10/2024 9:59 AM [facility] Comment:Calculation based on the Chronic Kidney Disease Epidemiology Collaboration (CKD-EPI) equation refit without adjustment for race. BUN/Creatinine Ratio 21.7 LAB CHEMISTRY METHOD 07/10/2024 9:59 AM [facility] Calcium 9.3 8.5 - 10.5 mg/dL LAB CHEMISTRY METHOD 07/10/2024 9:59 AM [facility] Blood Venous blood specimen / Unknown Venipuncture / Unknown 07/10/2024 6:29 AM EST 07/10/2024 9:00 AM EST us Lloyd Jernigan MD LAB BLOOD ORDERABLES Final R esult [facility] [address] [place] [address], * (ABNORMAL) Complete blood count (07/10/2024 6:29 AM EST) WBC 5.3 4.8 - 10.8 K/mcL LAB HEMETOLOGY METHOD 07/10/2024 9:47 AM [facility] RBC 3.20(L) 3.80 - 4.80 M/mcL LAB HEMETOLOGY METHOD 07/10/2024 9:47 AM [facility] Hemoglobin 8.9(L) 11.5 - 16.0 g/dL LAB HEMETOLOGY METHOD 07/10/2024 9:47 AM [facility] Hematocrit 32.0(L) 35.0 - 47.0 % LAB HEMETOLOGY METHOD 07/10/2024 9:47 AM [facility] MCV 101.6(H) 79.0 - 98.0 FL LAB HEMETOLOGY METHOD 07/10/2024 9:47 AM [facility] MCH 28.3 27.0 - 32.0 pcg LAB HEMETOLOGY METHOD 07/10/2024 9:47 AM [facility] MCHC 27.8(L) 32.0 - 37.0 g/dL LAB HEMETOLOGY METHOD 07/10/2024 9:47 AM [facility] RDW 20.3(H) 11.0 - 15.0 % LAB HEMETOLOGY METHOD 07/10/2024 9:47 AM [facility] Platelets 239 130 - 400 K/mcL LAB HEMETOLOGY METHOD 07/10/2024 9:47 AM [facility] MPV 10.2 7.0 - 11.0 FL LAB HEMETOLOGY METHOD 07/10/2024 9:47 AM EST [facility] NRBC 0.0 <1.0 % LAB HEMETOLOGY METHOD 07/10/2024 9:47 AM EST [facility] NRBC Absolute 0.00 <0.10 K/mcL LAB HEMETOLOGY METHOD 07/10/2024 9:47 AM EST [facility] Blood Venous blood specimen / Unknown Venipuncture / Unknown 07/10/2024 6:29 AM EST 07/10/2024 9:00 AM EST Lloyd Jernigan MD LAB BLOOD ORDERABLES Final R esult Performing Organization Address City/[facility]/ZIP Co de Phone Number [facility] [address] [place] [address], [place] [phone] * Hemoglobin A1c (07/10/2024 6:29 AM EST) Hemoglobin A1C 5.7 <6.5 % LAB CHEMISTRY METHOD 07/10/2024 1:42 PM EST [facility] Mean Bld Glu Estim. 117 mg/dL LAB CHEMISTRY METHOD 07/10/2024 1:42 PM EST [facility] Blood Venous blood specimen / Unknown Venipuncture / Unknown 07/10/2024 6:29 AM EST 07/10/2024 9:00 AM EST Lloyd Jernigan MD LAB BLOOD ORDERABLES Final R esult [facility] [address] [place] [address], [place] [phone] documented in this encounter Visit Diagnoses Diagnosis Unspecified dementia, unspecified severity, without behavioral disturbance, psychotic disturbance, mood disturbance, and anxiety (CMS/HCC V24, CMS/HCC V28) documented in this encounter Care Teams Hearing Screener Relationship Specialty Start Date End Date Amina Burciaga MD [address] [place] [address] PCP - General Hospitalist Medicine 09/11/24 documented as of this encounter
--- OUTSIDE RECORDS SUMMARY | 2025-05-10 06:04 | XMS_ITS | Encounter Summary ---
Author Organization [facility], Address [address] [place] [address] Phone Care Team Providers Care Airport Operations Manager Name Role Phone Dandre Chavez MD Primary Care Provider [phone] Encounter Details Date Type Department Care Team (Late st Contact Info) Description 02/08/2022 Documentation Only [facility], [address] [place] [address] Faina Villegas PA Social History Tobacco Use [...] on filedocumented in this encounter Care Teams Airport Operations Manager Relationship Specialty Start Date End Date Dandre Chavez MD [address] [place] [address], [address] [place], [place] PCP - General 07/07/19 documented as of this encounter
--- OUTSIDE RECORDS SUMMARY | 2025-05-10 06:04 | XMS_ITS | Encounter Summary ---
Author Organization [facility] Address [address] [place] [address] Phone Care Team Providers Care Guest Services Attendant Name Role Phone Dandre Chavez MD Primary Care Provider [phone] Miguel Enciso MD Unavailable [phone] Encounter Details Date Type Department Care Team (Late st Contact Info) Description 12/20/2022 Procedure Pass Non-Invasive Cardiology [address] [place], [place] [id number] Social History Tobacco Use Types Packs/Day Years [...] on filedocumented in this encounter Care Teams Guest Services Attendant Relationship Specialty Start Date End Date Dandre Chavez MD [address] [place] [address] [id number] PCP - General 09/05/17 Miguel Enciso MD [address] [place] [address], [address] [place], [place] [phone] Cardiology 05/28/24 documented as of this encounter Additional Source Comments The information contained in this document represents components of the legal health record. It is not the complete legal health record.[facility]
--- OUTSIDE RECORDS SUMMARY | 2025-05-10 06:04 | XMS_ITS | Encounter Summary ---
Author Organization [facility], Address [address] [place] [address] Phone Care Team Providers Care General Assembler Name Role Phone Dandre Chavez MD Primary Care Provider [phone] Encounter Details Date Type Department Care Team (Late st Contact Info) Description 10/10/2021 Documentation Only [facility], [address] [place] [address] Faina Villegas PA Social History Tobacco Use [...] on filedocumented in this encounter Care Teams General Assembler Relationship Specialty Start Date End Date Dandre Chavez MD [address] [place] [address], [address] [place], [place] PCP - General 07/07/19 documented as of this encounter
--- OUTSIDE RECORDS SUMMARY | 2025-05-10 06:04 | XMS_ITS | Encounter Summary ---
Author Organization [facility] Address [address] [place] [address] Care Team Providers Care Systems Checkout Mechanic Name Role Phone Amina Burciaga MD Primary Care Provider [phone] Encounter Details Date Type Department Care Team (Latest Contact Info) Description 09/23/2024 Lab Requisition [facility] - Main Lab [address] [facility] [place] [address] Amina Burciaga MD [address] [place] [address] Type 2 diabetes mellitus with [...] % LAB CHEMISTRY METHOD 09/23/2024 2:17 PM [facility] Mean Bld Glu Estim. 105 mg/dL LAB CHEMISTRY METHOD 09/23/2024 2:17 PM [facility] Blood Venous blood specimen / Unknown Venipuncture / Unknown 09/23/2024 8:20 AM EST 09/23/2024 12:06 PM EST Amina Burciaga MD LAB BLOOD ORDERABLES Final Resul t [facility] [address] [place] [address], * (ABNORMAL) Comprehensive metabolic panel (09/23/2024 8:20 AM EST) Pathologist [facility] Sodium 140 133 - 145 mmol/L LAB CHEMISTRY METHOD 09/23/2024 4:37 PM [facility] Potassium 3.9 3.5 - 5.5 mmol/L LAB CHEMISTRY METHOD 09/23/2024 4:37 PM [facility] Chloride 102 96 - 110 mmol/L LAB CHEMISTRY METHOD 09/23/2024 4:37 PM [facility] CO2 31 21 - 32 mmol/L LAB CHEMISTRY METHOD 09/23/2024 4:37 PM [facility] Anion Gap 7 3 - 11 LAB CHEMISTRY METHOD 09/23/2024 4:37 PM [facility] Glucose 106(H) 70 - 100 mg/dL LAB CHEMISTRY METHOD 09/23/2024 4:37 PM [facility] BUN 82(H) 5 - 25 mg/dL LAB CHEMISTRY METHOD 09/23/2024 4:37 PM [facility] Creatinine 2.46(H) 0.50 - 1.10 mg/dL LAB CHEMISTRY METHOD 09/23/2024 4:37 PM [facility] eGFR 20(L) >=60 mL/min/1. 73m2 LAB CHEMISTRY METHOD 09/23/2024 4:37 PM [facility] Comment:Calculation based on the Chronic Kidney Disease Epidemiology Collaboration (CKD-EPI) equation refit without adjustment for race. BUN/Creatinine Ratio 33.3 LAB CHEMISTRY METHOD 09/23/2024 4:37 PM [facility] Calcium 8.7 8.5 - 10.5 mg/dL LAB CHEMISTRY METHOD 09/23/2024 4:37 PM [facility] AST (SGOT) 17 10 - 42 unit/L LAB CHEMISTRY METHOD 09/23/2024 4:37 PM [facility] ALT (SGPT) 34 10 - 60 unit/L LAB CHEMISTRY METHOD 09/23/2024 4:37 PM [facility] Alkaline Phosphatase 57 42 - 121 unit/L LAB CHEMISTRY METHOD 09/23/2024 4:37 PM [facility] Total Protein 7.1 6.0 - 8.0 g/dL LAB CHEMISTRY METHOD 09/23/2024 4:37 PM [facility] Albumin 3.2 3.2 - 5.0 g/dL LAB CHEMISTRY METHOD 09/23/2024 4:37 PM [facility] Total Bilirubin 0.6 0.0 - 1.4 mg/dL LAB CHEMISTRY METHOD 09/23/2024 4:37 PM [facility] Blood Venous blood specimen / Unknown Venipuncture / Unknown 09/23/2024 8:20 AM EST 09/23/2024 12:06 PM EST us Amina Burciaga MD LAB BLOOD ORDERABLES Final Resul t [facility] [address] [place] [address], * (ABNORMAL) Complete blood count (09/23/2024 8:20 AM EST) [facility] WBC 6.2 4.8 - 10.8 K/mcL LAB HEMETOLOGY METHOD 09/23/2024 12:38 PM [facility] RBC 3.60(L) 3.80 - 4.80 M/mcL LAB HEMETOLOGY METHOD 09/23/2024 12:38 PM [facility] Hemoglobin 10.5(L) 11.5 - 16.0 g/dL LAB HEMETOLOGY METHOD 09/23/2024 12:38 PM [facility] Hematocrit 36.5 35.0 - 47.0 % LAB HEMETOLOGY METHOD 09/23/2024 12:38 PM [facility] MCV 100.3(H) 79.0 - 98.0 FL LAB HEMETOLOGY METHOD 09/23/2024 12:38 PM [facility] MCH 28.8 27.0 - 32.0 pcg LAB HEMETOLOGY METHOD 09/23/2024 12:38 PM [facility] MCHC 28.8(L) 32.0 - 37.0 g/dL LAB HEMETOLOGY METHOD 09/23/2024 12:38 PM [facility] RDW 18.4(H) 11.0 - 15.0 % LAB HEMETOLOGY METHOD 09/23/2024 12:38 PM [facility] Platelets 254 130 - 400 K/mcL LAB HEMETOLOGY METHOD 09/23/2024 12:38 PM [facility] MPV 10.7 7.0 - 11.0 FL LAB HEMETOLOGY METHOD 09/23/2024 12:38 PM [facility] NRBC 0.0 <1.0 % LAB HEMETOLOGY METHOD 09/23/2024 12:[address] [facility] NRBC Absolute 0.00 <0.10 K/mcL LAB HEMETOLOGY METHOD 09/23/2024 12:[address] [facility] Blood Venous blood specimen / Unknown Venipuncture / Unknown 09/23/2024 8:20 AM EST 09/23/2024 12:06 PM EST us Amina Burciaga MD LAB BLOOD ORDERABLES Final Resul t [facility] [address] [place] [address], documented in this encounter Visit Diagnoses Diagnosis Type 2 diabetes mellitus with unspecified complications (CMS/HCC V24, CMS/HCC V28) Unspecified systolic (congestive) heart failure (CMS/HCC V24, CMS/HCC V28) documented in this encounter Care Teams Systems Checkout Mechanic Relationship Specialty Start Date End Date Amina Burciaga MD [address] [place] [address] PCP - General Hospitalist Medicine 09/11/24 documented as of this encounter
--- OUTSIDE RECORDS SUMMARY | 2025-05-10 06:04 | XMS_ITS | Encounter Summary ---
Author Organization [facility], Address [address] [place] [address] Phone Care Team Providers Care Hvac Residential Service Technician Name Role Phone Dandre Chavez MD Primary Care Provider Encounter Details Date Type Department Care Team (Late st Contact Info) Description 10/30/2022 Documentation Only [facility], [address] [place] [address] Melissa Delgadillo [address] [place] [phone] Social History Tobacco Use Types Packs/Day Years [...] on filedocumented in this encounter Care Teams Hvac Residential Service Technician Relationship Specialty Start Date End Date Dandre Chavez MD [address] [place] [address], [address] [place], [place] PCP - General 07/07/19 documented as of this encounter
--- OUTSIDE RECORDS SUMMARY | 2025-05-10 06:04 | XMS_ITS | Encounter Summary ---
Author Organization [facility], Address [address] [place] [address] Phone Care Team Providers Care Internal Control Manager Name Role Phone Dandre Chavez MD Primary Care Provider [phone] Encounter Details Date Type Department Care Team (Late st Contact Info) Description 10/12/2021 Documentation Only [facility], [address] [place] [address] Faina Villegas PA Social History Tobacco Use [...] on filedocumented in this encounter Care Teams Internal Control Manager Relationship Specialty Start Date End Date Dandre Chavez MD [address] [place] [address], [address] [place], [place] PCP - General 07/07/19 documented as of this encounter
--- OUTSIDE RECORDS SUMMARY | 2025-05-10 06:04 | XMS_ITS | Encounter Summary ---
Author Organization [facility] Address [address] [place] [address] Care Team Providers Care Telecommunication Tower Technician Name Role Phone Amina Burciaga MD Primary Care Provider [phone] Encounter Details Date Type Department Care Team (Late st Contact Info) Description 07/13/[address] [facility] - Main Lab [address] [facility] [place] [address] Hortencia Mcclellan MD [address] [id number] Type 2 diabetes mellitus without complications (CMS/HCC [...] mmol/L LAB CHEMISTRY METHOD 07/14/2024 9:03 AM [facility] Potassium 3.8 3.5 - 5.5 mmol/L LAB CHEMISTRY METHOD 07/14/2024 9:03 AM [facility] Chloride 105 96 - 110 mmol/L LAB CHEMISTRY METHOD 07/14/2024 9:03 AM [facility] CO2 28 21 - 32 mmol/L LAB CHEMISTRY METHOD 07/14/2024 9:03 AM [facility] Anion Gap 6 3 - 11 LAB CHEMISTRY METHOD 07/14/2024 9:03 AM [facility] Glucose 105(H) 70 - 100 mg/dL LAB CHEMISTRY METHOD 07/14/2024 9:03 AM [facility] BUN 70(H) 5 - 25 mg/dL LAB CHEMISTRY METHOD 07/14/2024 9:03 AM [facility] Creatinine 3.26(H) 0.50 - 1.10 mg/dL LAB CHEMISTRY METHOD 07/14/2024 9:03 AM [facility] eGFR 14(L) >=60 mL/min/1. 73m2 LAB CHEMISTRY METHOD 07/14/2024 9:03 AM [facility] Comment:Calculation based on the Chronic Kidney Disease Epidemiology Collaboration (CKD-EPI) equation refit without adjustment for race. BUN/Creatinine Ratio 21.5 LAB CHEMISTRY METHOD 07/14/2024 9:03 AM [facility] Calcium 8.6 8.5 - 10.5 mg/dL LAB CHEMISTRY METHOD 07/14/2024 9:03 AM [facility] Blood Venous blood specimen / Unknown Venipuncture / Unknown 07/14/2024 6:08 AM EST 07/14/2024 8:03 AM EST us Hortencia Mcclellan MD LAB BLOOD ORDERABLES Fin al Result [facility] [address] [place] [address], * (ABNORMAL) Complete blood count (07/14/2024 6:08 AM EST) [facility] WBC 5.3 4.8 - 10.8 K/mcL LAB HEMETOLOGY METHOD 07/14/2024 8:32 AM [facility] RBC 3.00(L) 3.80 - 4.80 M/mcL LAB HEMETOLOGY METHOD 07/14/2024 8:32 AM [facility] Hemoglobin 8.3(L) 11.5 - 16.0 g/dL LAB HEMETOLOGY METHOD 07/14/2024 8:32 AM [facility] Hematocrit 29.9(L) 35.0 - 47.0 % LAB HEMETOLOGY METHOD 07/14/2024 8:32 AM [facility] MCV 101.4(H) 79.0 - 98.0 FL LAB HEMETOLOGY METHOD 07/14/2024 8:32 AM [facility] MCH 28.1 27.0 - 32.0 pcg LAB HEMETOLOGY METHOD 07/14/2024 8:32 AM [facility] MCHC 27.8(L) 32.0 - 37.0 g/dL LAB HEMETOLOGY METHOD 07/14/2024 8:32 AM [facility] RDW 20.0(H) 11.0 - 15.0 % LAB HEMETOLOGY METHOD 07/14/2024 8:32 AM [facility] Platelets 198 130 - 400 K/mcL LAB HEMETOLOGY METHOD 07/14/2024 8:32 AM [facility] MPV 10.3 7.0 - 11.0 FL LAB HEMETOLOGY METHOD 07/14/2024 8:32 AM [facility] NRBC 0.0 <1.0 % LAB HEMETOLOGY METHOD 07/14/2024 8:[address] [facility] NRBC Absolute 0.00 <0.10 K/mcL LAB HEMETOLOGY METHOD 07/14/2024 8:[address] [facility] Blood Venous blood specimen / Unknown Venipuncture / Unknown 07/14/2024 6:08 AM EST 07/14/2024 8:03 AM EST us Hortencia Mcclellan MD LAB BLOOD ORDERABLES Fin al Result [facility] [address] [place] [address], documented in this encounter Visit Diagnoses Diagnosis Type 2 diabetes mellitus without complications (CMS/HCC V24, CMS/HCC V28) Heart failure, unspecified (CMS/HCC V24, CMS/HCC V28) Heart failure, unspecified documented in this encounter Care Teams Telecommunication Tower Technician Relationship Specialty Start Date End Date Amina Burciaga MD [address] [place] [address] PCP - General Hospitalist Medicine 09/11/24 documented as of this encounter
--- OUTSIDE RECORDS SUMMARY | 2025-05-10 06:04 | XMS_ITS | Encounter Summary ---
Author Organization [facility], Address [address] [place] [address] Phone Care Team Providers Care Sheet Writer Name Role Phone Dandre Chavez MD Primary Care Provider [phone] Encounter Details Date Type Department Care Team (Late st Contact Info) Description 12/31/2022 Documentation Only [facility], [address] [place] [address] Melissa Delgadillo [address] [place] [phone] Social History Tobacco Use Types Packs/Day Years [...] on filedocumented in this encounter Care Teams Sheet Writer Relationship Specialty Start Date End Date Dandre Chavez MD [address] [place] [address], [address] [place], [place] PCP - General 07/07/19 documented as of this encounter
[2025-05-10 06:40] LABS: Anion Gap 19 (12-20); Blood Urea Nitrogen 106 mg/dL (9-16); Calcium 8.9 mg/dL (8.4-10.2); Carbon Dioxide 29 mmol/L (22-29); Chloride 98 mmol/L (96-108); Estimated Glomerular Filt Rate 15; Potassium 3.5 mmol/L (3.3-5.1); Sodium 142 mmol/L (135-145)
[2025-05-10 06:49] LABS: Hematocrit 30.7 % (37.0-47.0); Hemoglobin 8.9 g/dl (12.0-16.0); Imm Gran Pct Auto 0.2 % (0.0-0.4); Mean Corpuscular HGB Conc 29.0 g/dl (31.0-35.0); Mean Corpuscular Hemoglobin 27.1 pg (27.0-33.0); Mean Corpuscular Volume 93.3 fL (80.0-98.0); NRBC Pct Auto 0.0 /100WBC (0.0-0.2); Platelet Count 185 X10*3/uL (160-400); Red Blood Count 3.29 X10*6/uL (4.20-5.50); White Blood Count 5.4 X10*3/uL (4.8-10.8)
[2025-05-10 06:50] LABS: Imm Gran Abs Auto 0.01 X10*3/uL (0.00-0.03); Lymphocytes Absolute Auto 0.6 X10*3/uL (1.2-4.9); NRBC Abs Auto 0.000 X10*3/uL (0.0-0.012)
== END 2025-05-10 06:01 | disposition home or self-care (01) ==
LOC: HO.MMNH2L 06:00
PROVIDERS: Visit Provider Student in an Organized Health Care Education/Training Program
DX: I50.9 Heart failure, unspecified (principal)
CPT/HCPCS: 36415; 80048; 85025

== ENCOUNTER 2025-05-17 05:45 | Outpatient (REF) | payer MEDICARE, SELFPAY ==
--- OUTSIDE RECORDS SUMMARY | 2018-12-31 05:05 | XMS_ITS | Continuity of Care Document ---
Author Organization [facility] Address [address] [address] Phone Care Team Providers Care Oil Spraying Machine Operator Name Role Phone Brodie Hinds DO Unavailable Unavailable Advance Directives Directive Yes / No Effective Date File Name No Information Encounters Encounter Description Practice Location Reason(s) For Visit Diagnoses Date Provider [facility], [address], [id number], [place] tel:[phone] [address] [place] [address] No Information 2018 Guzman Calloway. [address] [place] [address], [id number], [place]. tel:[phone] Family History Family Member Type Diagnosis Age [...]
[2025-05-17 05:41] LABS: MANUAL DIFF FLAG NO
--- OUTSIDE RECORDS SUMMARY | 2025-05-17 05:50 | XMS_ITS | Clinical Summary ---
Author Organization [facility], Address [address] [address] Phone Care Team Providers Care County Extension Agent Name Role Phone Dandre Chavez MD Primary Care Provider [phone] Allergies Active Allergy Reactions Criticality Noted Date [...] Last Assessment & Plan: History of inferior [place] in 2013 with a stent to her [...] PM EST) Hemoglobin A1C 6.9(H) (4.0-5.6) % [facility] Comment: MONITORING: In known diabetic patients, hemoglobin A1c targets should be discussed with health care provider. DIAGNOSTIC USE: The [place] Diabetes Association (ADA) and the World Health [...] Supplement 1 Testing performed or reported by [facility], a Service of [address] [address] Louis Fry MD, Grants Manager [facility]# [id number] Blood specimen (specimen) Venous blood / Unknown 10/18/2022 2:34 PM EST 10/18/2022 2:35 PM EST us Faina LUCIANO LAB BLOOD ORDERABLES Final Res ult [facility] from Last 3 Months or Most Recently Relevant to Health Maintenance Insurance Medicare [facility] [place] [id number] Care Teams County Extension Agent Relationship Specialty Start Date End Date Dandre Chavez MD [address] [place] [address], [address] [place] PCP - General 07/07/19
--- OUTSIDE RECORDS SUMMARY | 2025-05-17 05:50 | XMS_ITS | Encounter Summary ---
Author Organization [facility], Address [address] [place] [address] Phone Care Team Providers Care Legal Office Administrator Name Role Phone Dandre Chavez MD Primary Care Provider [phone] Encounter Details Date Type Department Care Team (Late st Contact Info) Description 12/31/2022 Documentation Only [facility], [address] [place] [address] Melissa Delgadillo [address] [place] [phone] Social History Tobacco Use Types Packs/Day Years [...] on filedocumented in this encounter Care Teams Legal Office Administrator Relationship Specialty Start Date End Date Dandre Chavez MD [address] [place] [address], [address] [place], [place] PCP - General 07/07/19 documented as of this encounter
--- OUTSIDE RECORDS SUMMARY | 2025-05-17 05:50 | XMS_ITS | Encounter Summary ---
Author Organization [facility], Address [address] [place] [address] Phone Care Team Providers Care Pressure Steamer Tender Name Role Phone Dandre Chavez MD Primary Care Provider [phone] Encounter Details Date Type Department Care Team (Late st Contact Info) Description 12/31/2022 Documentation Only [facility], [address] [place] [address] Melissa Delgadillo [address] [place] [phone] Social History Tobacco Use Types Packs/Day Years [...] on filedocumented in this encounter Care Teams Pressure Steamer Tender Relationship Specialty Start Date End Date Dandre Chavez MD [address] [place] [address], [address] [place], [place] PCP - General 07/07/19 documented as of this encounter
--- OUTSIDE RECORDS SUMMARY | 2025-05-17 05:50 | XMS_ITS | Clinical Summary ---
Author Organization [facility] Address [address] [place] [address] Phone Care Team Providers Care Dog Licenser Name Role Phone Dandre Chavez MD Primary Care Provider [phone] Miguel Enciso MD Unavailable [phone] Allergies Active Allergy Reactions Criticality Noted Date [...] Active ferrous sulfate 325 mg (65 mg [place] iron) EC tablet Take 325 mg by [...] focus on healthy food choices. Atherosclerosis of [place] co ronary artery of [place] heart with angina pectoris 10/28/2018 Assessment & [...] (04/14/2020 10:40 PM EDT): History of inferior [place] in 2013 with a stent to her [...] LAD. She presented with a non-ST relation [place] September 2018 and had a new culprit [...] will need to have this completed at [facility]. She is aware that this is [...] December. She will have this completed at [facility] due to having her stress test completed [...] this topic Medical Devices Implanted Type Area Roofing Laborer Device Identifier Shelf Expiration Date Model / Serial / Lot Sensor Pulmonary Artery Delivery System Cardiomems - [id number] Implanted:Qt y: 1 on 04/03/2022 by Miguel Enciso MD at [facility] Implantable Monitor Left: Arterial [employer] [id number] 12/15/2023 CM PATIENT SYSTEM / [id number] / Description:Pulmonary artery Procedures Procedure Name Priority Date/Time Associated Diagnosis Comments COMPREHENSIVE METABOLIC PANEL Routine 04/18/2022 2:39 PM EDT Atherosclerosis of [place] coronary artery of [place] heart with angina pectoris Essential hypertension Ischemic cardiomyopathy PAD (peripheral artery disease) from Last 3 Months or Most Recently Relevant to Health Maintenance Results * (ABNORMAL) Comprehensive metabolic panel (04/18/2022 2:39 PM EDT) SODIUM 143 133 - 146 mmol/L [facility] POTASSIUM 4.5 3.3 - 5.1 mmol/L [facility] CHLORIDE 100 96 - 108 mmol/L [facility] CO2 34 21 - 35 mmol/L [facility] BUN 38(H) 6 - 19 mg/dL [facility] CREATININE 1.40 0.5 - 1.5 mg/dL [facility] GLUCOSE 163(H) 70 - 99 mg/dL [facility] ALBUMIN 4.0 3.9 - 4.8 g/dL [facility] TOTAL PROTEIN 7.5 6.5 - 8.0 g/dL [facility] CALCIUM 10.1 8.4 - 10.3 mg/dL [facility] ALKALINE PHOSPHATASE 94 39 - 117 U/L [facility] TOTAL BILIRUBIN 0.6 0.0 - 1.2 mg/dL [facility] AST 26 0 - 37 U/L [facility] ALT 12 0 - 40 U/L [facility] GLOBULIN 3.5 1 - 4.8 g/dL [facility] EGFR 39(L) >59 mL/min/1.7 3m2 [facility] Comment:Estimated glomerular filtration rate calculated using the CKD-EPI refit equation. ANION GAP 14 10 - 20 mmol/L [facility] Blood 04/18/2022 2:39 PM EDT 04/18/2022 2:42 PM EDT us Miguel Enciso MD LAB BLOOD ORDERABLES Final Result [facility] [address] [place] [address] from Last 3 Months or Most Recently Relevant to Health Maintenance Insurance MEDICARE PART A & B [place] MEDICARE PREFERRED HMO RE[facility]AC[facility] [address] MEDICARE PART A & B [place] MEDIC[place] PREFERRED HMO REPLACEMENT [facility] [place] [address] MEDICARE PART A & B Member Subscriber Plan / Payer (Ef fective 2012-Present) Name:Amina Zamora Member ID:[id number] Relation to Subscriber:Self Name:Amina Zamora Subscriber ID:[id number] Payer ID:[id number] Group ID:Not on file Type:Medicare Address: [email or web address] [address] [place] [phone] [facility] MEDICARE PREFERRED HMO REPLACEMENT MEDICARE PART A & B [place] MEDICARE PREFERRED HMO REPLACEMENT MEDICARE PART A & B [place] MEDICARE PREFERRED HMO REPLACEMENT [facility] MEDICARE PART A & B [place] MEDICARE PREFERRED HMO REPLACEMENT MEDICARE PART A & B [place] MEDICARE PREFERRED HMO REPLACEMENT [facility] MEDICARE PART A & B [place] MEDICARE PREFERRED HMO REPLACEMENT [facility] MEDICARE PART A & B [place] MEDICARE PREFERRED HMO REPLACEMENT [facility] [employer] Care Teams Dog Licenser Relationship Specialty Start Date End Date Dandre Chavez MD [address] [place] [address] PCP - General 09/05/17 Miguel Enciso MD [address] [place] [phone] [email or web address] Cardiology 05/28/24 Additional Source Comments The information contained in this document represents components of the legal health record. It is not the complete legal health record.[facility]
--- OUTSIDE RECORDS SUMMARY | 2025-05-17 05:50 | XMS_ITS | Encounter Summary ---
Author Organization [facility], Address [address] [place] [address] Phone Care Team Providers Care Mash Tub Cooker Operator Name Role Phone Dandre Chavez MD Primary Care Provider [phone] Encounter Details Date Type Department Care Team (Late st Contact Info) Description 09/07/2022 Documentation Only [facility], [address] [place] [address] Faina Villegas PA Social History Tobacco Use [...] on filedocumented in this encounter Care Teams Mash Tub Cooker Operator Relationship Specialty Start Date End Date Dandre Chavez MD [address] [place] [address], [address] [place], [place] PCP - General 07/07/19 documented as of this encounter
--- OUTSIDE RECORDS SUMMARY | 2025-05-17 05:50 | XMS_ITS | Encounter Summary ---
Author Organization [facility] Address [address] [place] [address] Care Team Providers Care Gage Maker Name Role Phone Amina Burciaga MD Primary Care Provider [phone] Encounter Details Date Type Department Care Team (Late st Contact Info) Description 07/27/2024 Lab Requisition [facility] - Main Lab 299 [facility] [place] [address] Hortencia Mcclellan MD [address] [id number] Type 2 diabetes mellitus without complications (CMS/HCC [...] mmol/L LAB CHEMISTRY METHOD 07/28/2024 8:47 AM [facility] Potassium 4.3 3.5 - 5.5 mmol/L LAB CHEMISTRY METHOD 07/28/2024 8:47 AM [facility] Chloride 107 96 - 110 mmol/L LAB CHEMISTRY METHOD 07/28/2024 8:47 AM [facility] CO2 25 21 - 32 mmol/L LAB CHEMISTRY METHOD 07/28/2024 8:47 AM [facility] Anion Gap 10 3 - 11 LAB CHEMISTRY METHOD 07/28/2024 8:47 AM [facility] Glucose 49(L) 70 - 100 mg/dL LAB CHEMISTRY METHOD 07/28/2024 8:47 AM [facility] BUN 45(H) 5 - 25 mg/dL LAB CHEMISTRY METHOD 07/28/2024 8:47 AM [facility] Creatinine 2.36(H) 0.50 - 1.10 mg/dL LAB CHEMISTRY METHOD 07/28/2024 8:47 AM [facility] eGFR 21(L) >=60 mL/min/1. 73m2 LAB CHEMISTRY METHOD 07/28/2024 8:47 AM [facility] Comment:Calculation based on the Chronic Kidney Disease Epidemiology Collaboration (CKD-EPI) equation refit without adjustment for race. BUN/Creatinine Ratio 19.1 LAB CHEMISTRY METHOD 07/28/2024 8:47 AM [facility] Calcium 9.2 8.5 - 10.5 mg/dL LAB CHEMISTRY METHOD 07/28/2024 8:47 AM [facility] Blood Venous blood specimen / Unknown Venipuncture / Unknown 07/28/2024 5:41 AM EST 07/28/2024 8:02 AM EST us Hortencia Mcclellan MD LAB BLOOD ORDERABLES Fin al Result [facility] [address] [place] [address], * (ABNORMAL) Complete blood count (07/28/2024 5:41 AM EST) [facility] WBC 4.1(L) 4.8 - 10.8 K/mcL LAB HEMETOLOGY METHOD 07/28/2024 8:20 AM [facility] RBC 3.00(L) 3.80 - 4.80 M/mcL LAB HEMETOLOGY METHOD 07/28/2024 8:20 AM [facility] Hemoglobin 8.6(L) 11.5 - 16.0 g/dL LAB HEMETOLOGY METHOD 07/28/2024 8:20 AM [facility] Hematocrit 29.9(L) 35.0 - 47.0 % LAB HEMETOLOGY METHOD 07/28/2024 8:20 AM [facility] MCV 99.7(H) 79.0 - 98.0 FL LAB HEMETOLOGY METHOD 07/28/2024 8:20 AM [facility] MCH 28.7 27.0 - 32.0 pcg LAB HEMETOLOGY METHOD 07/28/2024 8:20 AM [facility] MCHC 28.8(L) 32.0 - 37.0 g/dL LAB HEMETOLOGY METHOD 07/28/2024 8:20 AM [facility] RDW 19.6(H) 11.0 - 15.0 % LAB HEMETOLOGY METHOD 07/28/2024 8:20 AM [facility] Platelets 162 130 - 400 K/mcL LAB HEMETOLOGY METHOD 07/28/2024 8:20 AM [facility] MPV 10.5 7.0 - 11.0 FL LAB HEMETOLOGY METHOD 07/28/2024 8:20 AM [facility] NRBC 0.0 <1.0 % LAB HEMETOLOGY METHOD 07/28/2024 8:20 AM EST [facility] NRBC Absolute 0.00 <0.10 K/mcL LAB HEMETOLOGY METHOD 07/28/2024 8:20 AM EST [facility] Blood Venous blood specimen / Unknown Venipuncture / Unknown 07/28/2024 5:41 AM EST 07/28/2024 8:02 AM EST us Hortencia Mcclellan MD LAB BLOOD ORDERABLES Fin al Result [facility] [address] [place] [address], documented in this encounter Visit Diagnoses Diagnosis Type 2 diabetes mellitus without complications (CMS/HCC V24, CMS/HCC V28) Heart failure, unspecified (CMS/HCC V24, CMS/HCC V28) Heart failure, unspecified documented in this encounter Care Teams Gage Maker Relationship Specialty Start Date End Date Amina Burciaga MD [address] [place] [address] PCP - General Hospitalist Medicine 09/11/24 documented as of this encounter
--- OUTSIDE RECORDS SUMMARY | 2025-05-17 05:50 | XMS_ITS | Encounter Summary ---
Author Organization [facility] Address [address] [place] [address] Care Team Providers Care Reconciler Name Role Phone Amina Burciaga MD Primary Care Provider [phone] Encounter Details Date Type Department Care Team (Late st Contact Info) Description 07/20/2024 Lab Requisition [facility] - Main Lab 299 [facility] [place] [address] Hortencia Mcclellan MD 819 [facility] 1 [place], [place] [id number] Type 2 diabetes mellitus without complications (CMS/HCC [...] mmol/L LAB CHEMISTRY METHOD 07/21/2024 8:[address] [facility] Potassium 4.5 3.5 - 5.5 mmol/L LAB CHEMISTRY METHOD 07/21/2024 8:[address] [facility] Chloride 108 96 - 110 mmol/L LAB CHEMISTRY METHOD 07/21/2024 8:[address] [facility] CO2 27 21 - 32 mmol/L LAB CHEMISTRY METHOD 07/21/2024 8:[address] [facility] Anion Gap 5 3 - 11 LAB CHEMISTRY METHOD 07/21/2024 8:[address] [facility] Glucose 71 70 - 100 mg/dL LAB CHEMISTRY METHOD 07/21/2024 8:[address] [facility] BUN 68(H) 5 - 25 mg/dL LAB CHEMISTRY METHOD 07/21/2024 8:[address] [facility] Creatinine 3.00(H) 0.50 - 1.10 mg/dL LAB CHEMISTRY METHOD 07/21/2024 8:[address] [facility] eGFR 16(L) >=60 mL/min/1. 73m2 LAB CHEMISTRY METHOD 07/21/2024 8:[address] [facility] Comment:Calculation based on the Chronic Kidney Disease Epidemiology Collaboration (CKD-EPI) equation refit without adjustment for race. BUN/Creatinine Ratio 22.7 LAB CHEMISTRY METHOD 07/21/2024 8:[address] [facility] Calcium 9.1 8.5 - 10.5 mg/dL LAB CHEMISTRY METHOD 07/21/2024 8:[address] [facility] Blood Venous blood specimen / Unknown Venipuncture / Unknown 07/21/2024 5:53 AM EST 07/21/2024 7:55 AM EST us Hortencia Mcclellan MD LAB BLOOD ORDERABLES Fin al Result [facility] [address] [place] [address], * (ABNORMAL) Complete blood count (07/21/2024 5:53 AM EST) [facility] WBC 5.0 4.8 - 10.8 K/mcL LAB HEMETOLOGY METHOD 07/21/2024 8:[address] [facility] RBC 2.90(L) 3.80 - 4.80 M/mcL LAB HEMETOLOGY METHOD 07/21/2024 8:[address] [facility] Hemoglobin 8.2(L) 11.5 - 16.0 g/dL LAB HEMETOLOGY METHOD 07/21/2024 8:[address] [facility] Hematocrit 29.0(L) 35.0 - 47.0 % LAB HEMETOLOGY METHOD 07/21/2024 8:[address] [facility] MCV 100.7(H) 79.0 - 98.0 FL LAB HEMETOLOGY METHOD 07/21/2024 8:[address] [facility] MCH 28.5 27.0 - 32.0 pcg LAB HEMETOLOGY METHOD 07/21/2024 8:[address] [facility] MCHC 28.3(L) 32.0 - 37.0 g/dL LAB HEMETOLOGY METHOD 07/21/2024 8:[address] [facility] RDW 19.2(H) 11.0 - 15.0 % LAB HEMETOLOGY METHOD 07/21/2024 8:[address] [facility] Platelets 223 130 - 400 K/mcL LAB HEMETOLOGY METHOD 07/21/2024 8:[address] [facility] MPV 10.0 7.0 - 11.0 FL LAB HEMETOLOGY METHOD 07/21/2024 8:[address] [facility] NRBC 0.0 <1.0 % LAB HEMETOLOGY METHOD 07/21/2024 8:26 AM EST [facility] NRBC Absolute 0.00 <0.10 K/mcL LAB HEMETOLOGY METHOD 07/21/2024 8:26 AM EST [facility] Blood Venous blood specimen / Unknown Venipuncture / Unknown 07/21/2024 5:53 AM EST 07/21/2024 7:55 AM EST us Hortencia Mcclellan MD LAB BLOOD ORDERABLES Fin al Result [facility] [address] [place] [address], documented in this encounter Visit Diagnoses Diagnosis Type 2 diabetes mellitus without complications (CMS/HCC V24, CMS/HCC V28) Heart failure, unspecified (CMS/HCC V24, CMS/HCC V28) Heart failure, unspecified documented in this encounter Care Teams Reconciler Relationship Specialty Start Date End Date Amina Burciaga MD [address] [place] [address] PCP - General Hospitalist Medicine 09/11/24 documented as of this encounter
--- OUTSIDE RECORDS SUMMARY | 2025-05-17 05:50 | XMS_ITS | Encounter Summary ---
Author Organization [facility], Address [address] [place] [address] Phone Care Team Providers Care Editorial Clerk Name Role Phone Dandre Chavez MD Primary Care Provider [phone] Encounter Details Date Type Department Care Team (Late st Contact Info) Description 08/02/2022 Documentation Only [facility], [address] [place] [address] Faina Villegas PA Social History Tobacco Use [...] on filedocumented in this encounter Care Teams Editorial Clerk Relationship Specialty Start Date End Date Dandre Chavez MD [address] [place] [address], [address] [place], [place] PCP - General 07/07/19 documented as of this encounter
--- OUTSIDE RECORDS SUMMARY | 2025-05-17 05:50 | XMS_ITS | Encounter Summary ---
Author Organization [facility], Address [address] [place] [address] Phone Care Team Providers Care Market President Name Role Phone Dandre Chavez MD Primary Care Provider [phone] Encounter Details Date Type Department Care Team (Late st Contact Info) Description 11/29/2023 Documentation Only [facility], [address] [place] [address] Radha Chatterjee [place] [address] [place] [phone] Social History Tobacco Use Types Packs/Day Years [...] on filedocumented in this encounter Care Teams Market President Relationship Specialty Start Date End Date Dandre Chavez MD [address] [place] [address], [address] [place], [place] PCP - General 07/07/19 documented as of this encounter
--- OUTSIDE RECORDS SUMMARY | 2025-05-17 05:50 | XMS_ITS | Encounter Summary ---
Author Organization [facility] Address [address] [place] [address] Care Team Providers Care Lieutenant Fire Fighter Name Role Phone Amina Burciaga MD Primary Care Provider [phone] Encounter Details Date Type Department Care Team (Late st Contact Info) Description 07/23/[address] [facility] - Main Lab [address] [place] [address] Hortencia Mcclellan MD [address] [id number] Chronic kidney disease, unspecified; Type 2 diabetes [...] LAB CHEMISTRY METHOD 07/23/2024 9:13 AM EST [facility] Potassium 3.8 3.5 - 5.5 mmol/L LAB CHEMISTRY METHOD 07/23/2024 9:13 AM EST [facility] Chloride 111(H) 96 - 110 mmol/L LAB CHEMISTRY METHOD 07/23/2024 9:13 AM [facility] CO2 27 21 - 32 mmol/L LAB CHEMISTRY METHOD 07/23/2024 9:13 AM [facility] Anion Gap 6 3 - 11 LAB CHEMISTRY METHOD 07/23/2024 9:13 AM [facility] Glucose 64(L) 70 - 100 mg/dL LAB CHEMISTRY METHOD 07/23/2024 9:13 AM [facility] BUN 62(H) 5 - 25 mg/dL LAB CHEMISTRY METHOD 07/23/2024 9:13 AM [facility] Creatinine 2.70(H) 0.50 - 1.10 mg/dL LAB CHEMISTRY METHOD 07/23/2024 9:13 AM [facility] eGFR 18(L) >=60 mL/min/1. 73m2 LAB CHEMISTRY METHOD 07/23/2024 9:13 AM [facility] Comment:Calculation based on the Chronic Kidney Disease Epidemiology Collaboration (CKD-EPI) equation refit without adjustment for race. BUN/Creatinine Ratio 23.0 LAB CHEMISTRY METHOD 07/23/2024 9:13 AM [facility] Calcium 9.2 8.5 - 10.5 mg/dL LAB CHEMISTRY METHOD 07/23/2024 9:13 AM [facility] Blood Venous blood specimen / Unknown Venipuncture / Unknown 07/23/2024 5:52 AM EST 07/23/2024 8:17 AM EST us Hortencia Mcclellan MD LAB BLOOD ORDERABLES Fin al Result [facility] [address] [place] [address], documented in this encounter Visit Diagnoses Diagnosis Chronic kidney disease, unspecified Type 2 diabetes mellitus without complications (CMS/HCC V24, CMS/HCC V28) documented in this encounter Care Teams Lieutenant Fire Fighter Relationship Specialty Start Date End Date Amina Burciaga MD [address] [place] [address] PCP - General Hospitalist Medicine 09/11/24 documented as of this encounter
--- OUTSIDE RECORDS SUMMARY | 2025-05-17 05:50 | XMS_ITS | Clinical Summary ---
Author Organization [address] Address [address] [place] [address] Phone Care Team Providers Care Transfer Coordinator Name Role Phone Amina Burciaga MD Primary Care Provider [phone] Immunizations Name Administration Dates Next Due Pfizer [...] mmol/L LAB CHEMISTRY METHOD 09/30/2024 1:04 PM [facility] Potassium 3.7 3.5 - 5.5 mmol/L LAB CHEMISTRY METHOD 09/30/2024 1:04 PM [facility] Chloride 100 96 - 110 mmol/L LAB CHEMISTRY METHOD 09/30/2024 1:04 PM [facility] CO2 31 21 - 32 mmol/L LAB CHEMISTRY METHOD 09/30/2024 1:04 PM [facility] Anion Gap 7 3 - 11 LAB CHEMISTRY METHOD 09/30/2024 1:04 PM [facility] Glucose 228(H) 70 - 100 mg/dL LAB CHEMISTRY METHOD 09/30/2024 1:04 PM [facility] BUN 90(H) 5 - 25 mg/dL LAB CHEMISTRY METHOD 09/30/2024 1:04 PM [facility] Creatinine 2.19(H) 0.50 - 1.10 mg/dL LAB CHEMISTRY METHOD 09/30/2024 1:04 PM [facility] eGFR 23(L) >=60 mL/min/1. 73m2 LAB CHEMISTRY METHOD 09/30/2024 1:04 PM [facility] Comment:Calculation based on the Chronic Kidney Disease Epidemiology Collaboration (CKD-EPI) equation refit without adjustment for race. BUN/Creatinine Ratio 41.1 LAB CHEMISTRY METHOD 09/30/2024 1:04 PM [facility] Calcium 8.9 8.5 - 10.5 mg/dL LAB CHEMISTRY METHOD 09/30/2024 1:04 PM [facility] AST (SGOT) 22 10 - 42 unit/L LAB CHEMISTRY METHOD 09/30/2024 1:04 PM [facility] ALT (SGPT) 28 10 - 60 unit/L LAB CHEMISTRY METHOD 09/30/2024 1:04 PM [facility] Alkaline Phosphatase 47 42 - 121 unit/L LAB CHEMISTRY METHOD 09/30/2024 1:04 PM EST [facility] Total Protein 6.2 6.0 - 8.0 g/dL LAB CHEMISTRY METHOD 09/30/2024 1:04 PM [facility] Albumin 2.7(L) 3.2 - 5.0 g/dL LAB CHEMISTRY METHOD 09/30/2024 1:04 PM [facility] Total Bilirubin 0.6 0.0 - 1.4 mg/dL LAB CHEMISTRY METHOD 09/30/2024 1:04 PM [facility] Blood Venous blood specimen / Unknown Venipuncture / Unknown 09/30/2024 9:57 AM EST 09/30/2024 10:50 AM EST Isaac Stark MD LAB BLOOD ORDERABLES Final Resu lt Performing Organization Address City/[facility]/ZIP Co de Phone Number [facility] [address] [place] [address], [place] [phone] * Hemoglobin A1c (09/23/2024 8:20 AM EST) Hemoglobin A1C 5.3 <6.5 % LAB CHEMISTRY METHOD 09/23/2024 2:17 PM [facility] Mean Bld Glu Estim. 105 mg/dL LAB CHEMISTRY METHOD 09/23/2024 2:17 PM [facility] Blood Venous blood specimen / Unknown Venipuncture / Unknown 09/23/2024 8:20 AM EST 09/23/2024 12:06 PM EST Amina Burciaga MD LAB BLOOD ORDERABLES Final Resul t Performing Organization Address City/[facility]/ZIP Co de Phone Number [facility] [address] [place] [address], [place] [phone] from Last 3 Months or Most Recently Relevant to Health Maintenance Insurance [place]ICA[place] [employer] [employer] Care Teams Transfer Coordinator Relationship Specialty Start Date End Date Amina Burciaga MD [address] [place] [address] PCP - General Hospitalist Medicine 09/11/24
--- OUTSIDE RECORDS SUMMARY | 2025-05-17 05:50 | XMS_ITS | Encounter Summary ---
Author Organization [facility], Address [address] [place] [address] Phone Care Team Providers Care Logistic Specialist Name Role Phone Dandre Chavez MD Primary Care Provider [phone] Encounter Details Date Type Department Care Team (Late st Contact Info) Description 10/30/2022 Documentation Only [facility], [address] [place] [address] Melissa Delgadillo [address] [place] [phone] Social History Tobacco Use Types Packs/Day Years [...] on filedocumented in this encounter Care Teams Logistic Specialist Relationship Specialty Start Date End Date Dandre Chavez MD [address] [place] [address], [address] [place], [place] PCP - General 07/07/19 documented as of this encounter
--- OUTSIDE RECORDS SUMMARY | 2025-05-17 05:50 | XMS_ITS | Encounter Summary ---
Author Organization [facility] Address [address] [place] [address] Care Team Providers Care Mgmt Analyst Name Role Phone Amina Burciaga MD Primary Care Provider [phone] Encounter Details Date Type Department Care Team (Latest Contact Info) Description 09/23/2024 Lab Requisition [facility] - Main Lab 299 [facility] [place] [address] Amina Burciaga MD [address] [place] [address] Type 2 diabetes mellitus with [...] [facility] [address] [place] [address], * (ABNORMAL) Comprehensive metabolic panel (09/23/2024 8:20 AM EST) Pathologist [facility] Sodium 140 133 - 145 mmol/L LAB CHEMISTRY METHOD 09/23/2024 4:37 PM [facility] Potassium 3.9 3.5 - 5.5 mmol/L LAB CHEMISTRY METHOD 09/23/2024 4:37 PM [facility] Chloride 102 96 - 110 mmol/L LAB CHEMISTRY METHOD 09/23/2024 4:37 PM [facility] CO2 31 21 - 32 mmol/L LAB CHEMISTRY METHOD 09/23/2024 4:37 PM [facility] Anion Gap 7 3 - 11 LAB CHEMISTRY METHOD 09/23/2024 4:37 PM [facility] Glucose 106(H) 70 - 100 mg/dL LAB CHEMISTRY METHOD 09/23/2024 4:37 PM [facility] BUN 82(H) 5 - 25 mg/dL LAB CHEMISTRY METHOD 09/23/2024 4:37 PM [facility] Creatinine 2.46(H) 0.50 - 1.10 mg/dL LAB CHEMISTRY METHOD 09/23/2024 4:37 PM [facility] eGFR 20(L) >=60 mL/min/1. 73m2 LAB CHEMISTRY METHOD 09/23/2024 4:37 PM [facility] Comment:Calculation based on the Chronic Kidney Disease Epidemiology Collaboration (CKD-EPI) equation refit without adjustment for race. BUN/Creatinine Ratio 33.3 LAB CHEMISTRY METHOD 09/23/2024 4:37 PM [facility] Calcium 8.7 8.5 - 10.5 mg/dL LAB CHEMISTRY METHOD 09/23/2024 4:37 PM [facility] AST (SGOT) 17 10 - 42 unit/L LAB CHEMISTRY METHOD 09/23/2024 4:37 PM [facility] ALT (SGPT) 34 10 - 60 unit/L LAB CHEMISTRY METHOD 09/23/2024 4:37 PM [facility] Alkaline Phosphatase 57 42 - 121 unit/L LAB CHEMISTRY METHOD 09/23/2024 4:37 PM [facility] Total Protein 7.1 6.0 - 8.0 g/dL LAB CHEMISTRY METHOD 09/23/2024 4:37 PM [facility] Albumin 3.2 3.2 - 5.0 g/dL LAB CHEMISTRY METHOD 09/23/2024 4:37 PM [facility] Total Bilirubin 0.6 0.0 - 1.4 mg/dL LAB CHEMISTRY METHOD 09/23/2024 4:37 PM [facility] Blood Venous blood specimen / Unknown Venipuncture / Unknown 09/23/2024 8:20 AM EST 09/23/2024 12:06 PM EST us Amina Burciaga MD LAB BLOOD ORDERABLES Final Resul t [facility] [address] [place] [address], * (ABNORMAL) Complete blood count (09/23/2024 8:20 AM EST) [facility] WBC 6.2 4.8 - 10.8 K/mcL LAB HEMETOLOGY METHOD 09/23/2024 12:38 PM [facility] RBC 3.60(L) 3.80 - 4.80 M/mcL LAB HEMETOLOGY METHOD 09/23/2024 12:38 PM [facility] Hemoglobin 10.5(L) 11.5 - 16.0 g/dL LAB HEMETOLOGY METHOD 09/23/2024 12:38 PM [facility] Hematocrit 36.5 35.0 - 47.0 % LAB HEMETOLOGY METHOD 09/23/2024 12:38 PM [facility] MCV 100.3(H) 79.0 - 98.0 FL LAB HEMETOLOGY METHOD 09/23/2024 12:38 PM [facility] MCH 28.8 27.0 - 32.0 pcg LAB HEMETOLOGY METHOD 09/23/2024 12:38 PM [facility] MCHC 28.8(L) 32.0 - 37.0 g/dL LAB HEMETOLOGY METHOD 09/23/2024 12:38 PM [facility] RDW 18.4(H) 11.0 - 15.0 % LAB HEMETOLOGY METHOD 09/23/2024 12:38 PM [facility] Platelets 254 130 - 400 K/mcL LAB HEMETOLOGY METHOD 09/23/2024 12:38 PM [facility] MPV 10.7 7.0 - 11.0 FL LAB HEMETOLOGY METHOD 09/23/2024 12:38 PM [facility] NRBC 0.0 <1.0 % LAB HEMETOLOGY METHOD 09/23/2024 12:38 PM EST [facility] NRBC Absolute 0.00 <0.10 K/mcL LAB HEMETOLOGY METHOD 09/23/2024 12:38 PM EST [facility] Blood Venous blood specimen / Unknown Venipuncture / Unknown 09/23/2024 8:20 AM EST 09/23/2024 12:06 PM EST us Amina Burciaga MD LAB BLOOD ORDERABLES Final Resul t [facility] [address] [place] [address], documented in this encounter Visit Diagnoses Diagnosis Type 2 diabetes mellitus with unspecified complications (CMS/HCC V24, CMS/HCC V28) Unspecified systolic (congestive) heart failure (CMS/HCC V24, CMS/HCC V28) documented in this encounter Care Teams Mgmt Analyst Relationship Specialty Start Date End Date Amina Burciaga MD [address] [place] [address] PCP - General Hospitalist Medicine 09/11/24 documented as of this encounter
--- OUTSIDE RECORDS SUMMARY | 2025-05-17 05:50 | XMS_ITS | Encounter Summary ---
Author Organization [facility] Address [address] [place] [address] Phone Care Team Providers Care Handwriting Expert Name Role Phone Dandre Chavez MD Primary Care Provider [phone] Miguel Enciso MD Unavailable Encounter Details Date Type Department Care Team (Latest Contact Info) Description 12/16/2018 Ancillary Orders Non-Invasive Cardiology [address] [place] [address] Cathy Browning NP [address] [place] [address] Atherosclerosis of [place] coronary artery of [place] heart with angina pectoris Social History Tobacco [...] AM EDT) Max BP Systolic 150 mmHg [facility] Max BP Diastolic 80 mmHg [facility] Max HR 89 BPM [facility] Resting HR 78 BPM [facility] Resting BP Systolic 150 mmHg [facility] Resting BP Diastolic 80 mmHg [facility] Peak METS 1.0 METS [facility] Peak HR 83 BPM [facility] Anatomical Region Laterality Modality Heart Other [...] this encounter Visit Diagnoses Diagnosis 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 It is not the complete legal health record.[facility]
--- OUTSIDE RECORDS SUMMARY | 2025-05-17 05:50 | XMS_ITS | Encounter Summary ---
Author Organization [facility], Address [address] [place] [address] Phone Care Team Providers Care Wine Sales Representative Name Role Phone Dandre Chavez MD Primary Care Provider [phone] Encounter Details Date Type Department Care Team (Late st Contact Info) Description 02/09/2022 Documentation Only [facility], [address] [place] [address] Faina Villegas PA Social History Tobacco Use [...] on filedocumented in this encounter Care Teams Wine Sales Representative Relationship Specialty Start Date End Date Dandre Chavez MD [address] [place] [address], [address] [place], [place] PCP - General 07/07/19 documented as of this encounter
--- OUTSIDE RECORDS SUMMARY | 2025-05-17 05:50 | XMS_ITS | Encounter Summary ---
Author Organization [facility] Address [address] [place] [address] Care Team Providers Care Accounting Generalist Name Role Phone Amina Burciaga MD Primary Care Provider [phone] Encounter Details Date Type Department Care Team (Late st Contact Info) Description 08/10/[address] [facility] - Main Lab 299 [facility] [place] [address] Hortencia Mcclellan MD [address] [id number] Type 2 diabetes mellitus without complications (CMS/HCC [...] unspecified documented in this encounter Care Teams Accounting Generalist Relationship Specialty Start Date End Date Amina Burciaga MD [address] [place] [address] PCP - General Hospitalist Medicine 09/11/24 documented as of this encounter
--- OUTSIDE RECORDS SUMMARY | 2025-05-17 05:50 | XMS_ITS | Encounter Summary ---
Author Organization [facility] Address [address] [place] [address] Care Team Providers Care Assistant Passenger Locomotive Engineer Name Role Phone Amina Burciaga MD Primary Care Provider [phone] Encounter Details Date Type Department Care Team (Latest Contact Info) Description 09/11/2024 Lab Requisition [facility] - Main Lab 299 [facility] [place] [address] Amina Burciaga MD [address] [place] [address] Other ad terminal makeup operator (current) drug therapy; Type 2 diabetes mellitus [...] COUNT Routine 09/11/2024 9:47 AM EST Other ad terminal makeup operator (current) drug therapy Type 2 diabetes mellitus without complications (CMS/HCC) Heart failure, unspecified (CMS/HCC) MAGNESIUM Routine 09/11/2024 9:47 AM EST Other skilled nursing (current) drug therapy Type 2 diabetes mellitus without complications (CMS/HCC) Heart failure, unspecified (CMS/HCC) BASIC METABOLIC PANEL Routine 09/11/2024 9:47 AM EST Other skilled nursing (current) drug therapy Type 2 diabetes mellitus without complications (CMS/HCC) Heart failure, unspecified (CMS/HCC) documented in this encounter Results * Magnesium (09/11/2024 9:47 AM EST) [facility] Magnesium 2.1 1.9 - 2.6 mg/dL LAB CHEMISTRY METHOD 09/11/2024 12:45 PM [facility] Blood Venous blood specimen / Unknown Venipuncture / Unknown 09/11/2024 9:47 AM EST 09/11/2024 11:29 AM EST Amina Burciaga MD LAB BLOOD ORDERABLES Final Resul t [facility] [address] [place] [address], * (ABNORMAL) Basic metabolic panel (09/11/2024 9:47 AM EST) [facility] Sodium 137 133 - 145 mmol/L LAB [...] MD LAB BLOOD ORDERABLES Final Resul t [facility] [address] [place] [address], * (ABNORMAL) Complete blood count (09/11/2024 9:47 [...] LAB HEMETOLOGY METHOD 09/11/2024 11:47 AM EST [facility] MCH 29.2 27.0 - 32.0 pcg LAB HEMETOLOGY METHOD 09/11/2024 11:47 AM [facility] MCHC 28.5(L) 32.0 - 37.0 g/dL LAB HEMETOLOGY METHOD 09/11/2024 11:47 AM EST [facility] RDW 20.6(H) 11.0 - 15.0 % LAB HEMETOLOGY METHOD 09/11/2024 11:47 AM EST [facility] Platelets 180 130 - 400 K/mcL LAB HEMETOLOGY METHOD 09/11/2024 11:47 AM [facility] MPV 9.9 7.0 - 11.0 FL LAB HEMETOLOGY METHOD 09/11/2024 11:47 AM EST [facility] NRBC 0.0 <1.0 % LAB HEMETOLOGY METHOD 09/11/2024 11:47 AM [facility] NRBC Absolute 0.00 <0.10 K/mcL LAB HEMETOLOGY METHOD 09/11/2024 11:47 AM [facility] Blood Venous blood specimen / Unknown Venipuncture / Unknown 09/11/2024 9:47 AM EST 09/11/2024 11:29 AM EST us Amina Burciaga MD LAB BLOOD ORDERABLES Final Resul t [facility] [address] [place] [address], documented in this encounter Visit Diagnoses Diagnosis Other skilled nursing (current) drug therapy Type 2 diabetes mellitus without complications (CMS/HCC V24, CMS/HCC V28) Heart failure, unspecified (CMS/HCC V24, CMS/HCC V28) Heart failure, unspecified documented in this encounter Care Teams Assistant Passenger Locomotive Engineer Relationship Specialty Start Date End Date Amina Burciaga MD [address] [place] [address] PCP - General Hospitalist Medicine 09/11/24 documented as of this encounter
--- OUTSIDE RECORDS SUMMARY | 2025-05-17 05:50 | XMS_ITS | Encounter Summary ---
Author Organization [facility], Address [address] [place] [address] Phone Care Team Providers Care Fur Trimming Machine Operator Name Role Phone Dandre Chavez MD Primary Care Provider [phone] Encounter Details Date Type Department Care Team (Late st Contact Info) Description 02/08/2022 Documentation Only [facility], [address] [place] [address] Faina Villegas PA Social History Tobacco Use [...] on filedocumented in this encounter Care Teams Fur Trimming Machine Operator Relationship Specialty Start Date End Date Dandre Chavez MD [address] [place] [address], [address] [place], [place] PCP - General 07/07/19 documented as of this encounter
--- OUTSIDE RECORDS SUMMARY | 2025-05-17 05:50 | XMS_ITS | Encounter Summary ---
Author Organization [facility] Address [address] [place] [address] Care Team Providers Care Plastic Boat Patcher Name Role Phone Amina Burciaga MD Primary Care Provider [phone] Encounter Details Date Type Department Care Team (Late st Contact Info) Description 08/03/2024 Lab Requisition [facility] - Main Lab 299 [facility] [place] [address] Hortencia Mcclellan MD [address] [id number] Type 2 diabetes mellitus without complications (CMS/HCC [...] mmol/L LAB CHEMISTRY METHOD 08/04/2024 9:42 AM [facility] Potassium 3.6 3.5 - 5.5 mmol/L LAB CHEMISTRY METHOD 08/04/2024 9:42 AM [facility] Chloride 106 96 - 110 mmol/L LAB CHEMISTRY METHOD 08/04/2024 9:42 AM [facility] CO2 29 21 - 32 mmol/L LAB CHEMISTRY METHOD 08/04/2024 9:42 AM [facility] Anion Gap 8 3 - 11 LAB CHEMISTRY METHOD 08/04/2024 9:42 AM [facility] Glucose 64(L) 70 - 100 mg/dL LAB CHEMISTRY METHOD 08/04/2024 9:42 AM [facility] BUN 44(H) 5 - 25 mg/dL LAB CHEMISTRY METHOD 08/04/2024 9:42 AM [facility] Creatinine 2.43(H) 0.50 - 1.10 mg/dL LAB CHEMISTRY METHOD 08/04/2024 9:42 AM [facility] eGFR 20(L) >=60 mL/min/1. 73m2 LAB CHEMISTRY METHOD 08/04/2024 9:42 AM [facility] LAB Comment:Calculation based on the Chronic Kidney Disease Epidemiology Collaboration (CKD-EPI) equation refit without adjustment for race. BUN/Creatinine Ratio 18.1 LAB CHEMISTRY METHOD 08/04/2024 9:42 AM [facility] Calcium 8.8 8.5 - 10.5 mg/dL LAB CHEMISTRY METHOD 08/04/2024 9:42 AM [facility] Blood Venous blood specimen / Unknown Venipuncture / Unknown 08/04/2024 6:38 AM EST 08/04/2024 8:24 AM EST us Hortencia Mcclellan MD LAB BLOOD ORDERABLES Fin al Result [facility] [address] [place] [address], * (ABNORMAL) Complete blood count (08/04/2024 6:38 AM EST) [facility] WBC 4.5(L) 4.8 - 10.8 K/mcL LAB HEMETOLOGY METHOD 08/04/2024 9:19 AM [facility] RBC 3.20(L) 3.80 - 4.80 M/mcL LAB HEMETOLOGY METHOD 08/04/2024 9:19 AM [facility] Hemoglobin 9.0(L) 11.5 - 16.0 g/dL LAB HEMETOLOGY METHOD 08/04/2024 9:19 AM [facility] Hematocrit 31.8(L) 35.0 - 47.0 % LAB HEMETOLOGY METHOD 08/04/2024 9:19 AM [facility] LAB MCV 100.0(H) 79.0 - 98.0 FL LAB HEMETOLOGY METHOD 08/04/2024 9:19 AM [facility] MCH 28.3 27.0 - 32.0 pcg LAB HEMETOLOGY METHOD 08/04/2024 9:19 AM [facility] MCHC 28.3(L) 32.0 - 37.0 g/dL LAB HEMETOLOGY METHOD 08/04/2024 9:19 AM [facility] RDW 18.9(H) 11.0 - 15.0 % LAB HEMETOLOGY METHOD 08/04/2024 9:19 AM [facility] Platelets 188 130 - 400 K/mcL LAB HEMETOLOGY METHOD 08/04/2024 9:19 AM [facility] MPV 10.6 7.0 - 11.0 FL LAB HEMETOLOGY METHOD 08/04/2024 9:19 AM [facility] NRBC 0.0 <1.0 % LAB HEMETOLOGY METHOD 08/04/2024 9:19 AM EST [facility] NRBC Absolute 0.00 <0.10 K/mcL LAB HEMETOLOGY METHOD 08/04/2024 9:19 AM EST [facility] LAB Blood Venous blood specimen / Unknown Venipuncture / Unknown 08/04/2024 6:38 AM EST 08/04/2024 8:24 AM EST us Hortencia Mcclellan MD LAB BLOOD ORDERABLES Fin al Result [facility] [address] [place] [address], documented in this encounter Visit Diagnoses Diagnosis Type 2 diabetes mellitus without complications (CMS/HCC V24, CMS/HCC V28) Heart failure, unspecified (CMS/HCC V24, CMS/HCC V28) Heart failure, unspecified documented in this encounter Care Teams Plastic Boat Patcher Relationship Specialty Start Date End Date Amina Burciaga MD [address] [place] [address] PCP - General Hospitalist Medicine 09/11/24 documented as of this encounter
--- OUTSIDE RECORDS SUMMARY | 2025-05-17 05:50 | XMS_ITS | Encounter Summary ---
Author Organization [facility], Address [address] [place] [address] Phone Care Team Providers Care Corporate Auditor Name Role Phone Dandre Chavez MD Primary Care Provider [phone] Encounter Details Date Type Department Care Team (Late st Contact Info) Description 08/06/2023 Documentation Only [facility], [address] [place] [address] Desi Rodriguez Social History Tobacco Use Types [...] on filedocumented in this encounter Care Teams Corporate Auditor Relationship Specialty Start Date End Date Dandre Chavez MD [address] [place] [address], [address] [place], [place] PCP - General 07/07/19 documented as of this encounter
--- OUTSIDE RECORDS SUMMARY | 2025-05-17 05:50 | XMS_ITS | Encounter Summary ---
Author Organization [facility] Address [address] [place] [address] Care Team Providers Care Cardiac Care Unit Nurse Name Role Phone Amina Burciaga MD Primary Care Provider [phone] Encounter Details Date Type Department Care Team (Late st Contact Info) Description 07/13/2024 Lab Requisition [facility] - Main Lab 299 [facility] [place] [address] Hortencia Mcclellan MD [address] [id number] Type 2 diabetes mellitus without complications (CMS/HCC [...] mmol/L LAB CHEMISTRY METHOD 07/14/2024 9:03 AM [facility] Potassium 3.8 3.5 - 5.5 mmol/L LAB CHEMISTRY METHOD 07/14/2024 9:03 AM [facility] Chloride 105 96 - 110 mmol/L LAB CHEMISTRY METHOD 07/14/2024 9:03 AM [facility] CO2 28 21 - 32 mmol/L LAB CHEMISTRY METHOD 07/14/2024 9:03 AM [facility] Anion Gap 6 3 - 11 LAB CHEMISTRY METHOD 07/14/2024 9:03 AM [facility] Glucose 105(H) 70 - 100 mg/dL LAB CHEMISTRY METHOD 07/14/2024 9:03 AM [facility] BUN 70(H) 5 - 25 mg/dL LAB CHEMISTRY METHOD 07/14/2024 9:03 AM [facility] Creatinine 3.26(H) 0.50 - 1.10 mg/dL LAB CHEMISTRY METHOD 07/14/2024 9:03 AM [facility] eGFR 14(L) >=60 mL/min/1. 73m2 LAB CHEMISTRY METHOD 07/14/2024 9:03 AM [facility] Comment:Calculation based on the Chronic Kidney Disease Epidemiology Collaboration (CKD-EPI) equation refit without adjustment for race. BUN/Creatinine Ratio 21.5 LAB CHEMISTRY METHOD 07/14/2024 9:03 AM [facility] Calcium 8.6 8.5 - 10.5 mg/dL LAB CHEMISTRY METHOD 07/14/2024 9:03 AM [facility] Blood Venous blood specimen / Unknown Venipuncture / Unknown 07/14/2024 6:08 AM EST 07/14/2024 8:03 AM EST us Hortencia Mcclellan MD LAB BLOOD ORDERABLES Fin al Result [facility] [address] [place] [address], * (ABNORMAL) Complete blood count (07/14/2024 6:08 AM EST) [facility] WBC 5.3 4.8 - 10.8 K/mcL LAB HEMETOLOGY METHOD 07/14/2024 8:32 AM [facility] RBC 3.00(L) 3.80 - 4.80 M/mcL LAB HEMETOLOGY METHOD 07/14/2024 8:32 AM [facility] Hemoglobin 8.3(L) 11.5 - 16.0 g/dL LAB HEMETOLOGY METHOD 07/14/2024 8:32 AM [facility] Hematocrit 29.9(L) 35.0 - 47.0 % LAB HEMETOLOGY METHOD 07/14/2024 8:32 AM [facility] MCV 101.4(H) 79.0 - 98.0 FL LAB HEMETOLOGY METHOD 07/14/2024 8:32 AM [facility] MCH 28.1 27.0 - 32.0 pcg LAB HEMETOLOGY METHOD 07/14/2024 8:32 AM [facility] MCHC 27.8(L) 32.0 - 37.0 g/dL LAB HEMETOLOGY METHOD 07/14/2024 8:32 AM [facility] RDW 20.0(H) 11.0 - 15.0 % LAB HEMETOLOGY METHOD 07/14/2024 8:32 AM [facility] Platelets 198 130 - 400 K/mcL LAB HEMETOLOGY METHOD 07/14/2024 8:32 AM [facility] MPV 10.3 7.0 - 11.0 FL LAB HEMETOLOGY METHOD 07/14/2024 8:32 AM [facility] NRBC 0.0 <1.0 % LAB HEMETOLOGY METHOD 07/14/2024 8:[address] [facility] NRBC Absolute 0.00 <0.10 K/mcL LAB HEMETOLOGY METHOD 07/14/2024 8:[address] [facility] Blood Venous blood specimen / Unknown Venipuncture / Unknown 07/14/2024 6:08 AM EST 07/14/2024 8:03 AM EST us Hortencia Mcclellan MD LAB BLOOD ORDERABLES Fin al Result [facility] [address] [place] [address], documented in this encounter Visit Diagnoses Diagnosis Type 2 diabetes mellitus without complications (CMS/HCC V24, CMS/HCC V28) Heart failure, unspecified (CMS/HCC V24, CMS/HCC V28) Heart failure, unspecified documented in this encounter Care Teams Cardiac Care Unit Nurse Relationship Specialty Start Date End Date Amina Burciaga MD [address] [place] [address] PCP - General Hospitalist Medicine 09/11/24 documented as of this encounter
--- OUTSIDE RECORDS SUMMARY | 2025-05-17 05:50 | XMS_ITS | Encounter Summary ---
Author Organization [facility], Address [address] [place] [address] Phone Care Team Providers Care Medical Billing Coder Name Role Phone Dandre Chavez MD Primary Care Provider Encounter Details Date Type Department Care Team (Late st Contact Info) Description 10/10/2021 Documentation Only [facility], [address] [place] [address] Faina Villegas PA Social History Tobacco Use [...] filedocumented in this encounter Care Teams Medical Billing Coder Relationship Specialty Start Date End Date Dandre Chavez MD [address] [place] [address], [address] [place], [place] PCP - General 07/07/19 documented as of this encounter
--- OUTSIDE RECORDS SUMMARY | 2025-05-17 05:50 | XMS_ITS | Encounter Summary ---
Author Organization [facility] Address [address] [place] [address] Care Team Providers Care Private Banker Name Role Phone Amina Burciaga MD Primary Care Provider Encounter Details Date Type Department Care Team (Late st Contact Info) Description 07/10/2024 Lab Requisition [facility] - Main Lab 299 [facility] [place] [address] Lloyd Jernigan MD [address] [place] [address] Unspecified dementia, unspecified severity, without behavioral disturbance, [...] MD LAB BLOOD ORDERABLES Final R esult [facility] [address] [place] [address], * (ABNORMAL) Complete blood count (07/10/2024 6:29 [...] LAB HEMETOLOGY METHOD 07/10/2024 9:47 AM EST [facility] NRBC 0.0 <1.0 % LAB HEMETOLOGY METHOD 07/10/2024 9:47 AM EST [facility] NRBC Absolute 0.00 <0.10 K/mcL LAB HEMETOLOGY METHOD 07/10/2024 9:47 AM EST [facility] Blood Venous blood specimen / Unknown Venipuncture / Unknown 07/10/2024 6:29 AM EST 07/10/2024 9:00 AM EST Lloyd Jernigan MD LAB BLOOD ORDERABLES Final R esult Performing Organization Address City/[facility]/ZIP Co de Phone Number [facility] [address] [place] [address], [place] [phone] * Hemoglobin A1c (07/10/2024 6:29 AM EST) Hemoglobin A1C 5.7 <6.5 % LAB CHEMISTRY METHOD 07/10/2024 1:42 PM EST [facility] Mean Bld Glu Estim. 117 mg/dL LAB CHEMISTRY METHOD 07/10/2024 1:42 PM EST [facility] Blood Venous blood specimen / Unknown Venipuncture / Unknown 07/10/2024 6:29 AM EST 07/10/2024 9:00 AM EST Lloyd Jernigan MD LAB BLOOD ORDERABLES Final R esult [facility] [address] [place] [address], [place] [phone] documented in this encounter Visit Diagnoses Diagnosis Unspecified dementia, unspecified severity, without behavioral disturbance, psychotic disturbance, mood disturbance, and anxiety (CMS/HCC V24, CMS/HCC V28) documented in this encounter Care Teams Private Banker Relationship Specialty Start Date End Date Amina Burciaga MD [address] [place] [address] PCP - General Hospitalist Medicine 09/11/24 documented as of this encounter
--- OUTSIDE RECORDS SUMMARY | 2025-05-17 05:50 | XMS_ITS | Encounter Summary ---
Author Organization [facility], Address [address] [place] [address] Phone Care Team Providers Care Facility Maintenance Worker Name Role Phone Dandre Chavez MD Primary Care Provider [phone] Encounter Details Date Type Department Care Team (Late st Contact Info) Description 01/08/2025 Documentation Only [facility], [address] [place] [address] Radha Chatterjee [place] [address] [place] [phone] Social History Tobacco Use Types Packs/Day Years [...] on filedocumented in this encounter Care Teams Facility Maintenance Worker Relationship Specialty Start Date End Date Dandre Chavez MD [address] [place] [address], [address] [place], [place] PCP - General 07/07/19 documented as of this encounter
--- OUTSIDE RECORDS SUMMARY | 2025-05-17 05:50 | XMS_ITS | Encounter Summary ---
Author Organization [facility], Address [address] [place] [address] Phone Care Team Providers Care Sensor Technician Name Role Phone Dandre Chavez MD Primary Care Provider [phone] Encounter Details Date Type Department Care Team (Late st Contact Info) Description 09/25/2021 Documentation Only [facility], [address] [place] [address] Faina Villegas PA Social History Tobacco Use [...] on filedocumented in this encounter Care Teams Sensor Technician Relationship Specialty Start Date End Date Dandre Chavez MD [address] [place] [address], [address] [place], [place] PCP - General 07/07/19 documented as of this encounter
--- OUTSIDE RECORDS SUMMARY | 2025-05-17 05:50 | XMS_ITS | Clinical Summary ---
Author Organization [facility] Address [address] [place] [address] Care Team Providers Care Ct Technician Name Role Phone Dandre Chavez MD Primary Care Provider [phone] Allergies Active Allergy Reactions Criticality Noted Date [...] age to complete this topic Care Teams Ct Technician Relationship Specialty Start Date End Date Dandre Chavez MD [address] [place] [address] [place] [id number] PCP - General Internal Medicine 11/06/22
--- OUTSIDE RECORDS SUMMARY | 2025-05-17 05:50 | XMS_ITS | Encounter Summary ---
Author Organization [facility] Address [address] [place] [address] Phone Care Team Providers Care Web Page Developer Name Role Phone Dandre Chavez MD Primary Care Provider [phone] Miguel Enciso MD Unavailable [phone] Encounter Details Date Type Department Care Team (Late st Contact Info) Description 12/21/2022 Procedure Pass Echo Lab [address] [id number] Social History Tobacco Use Types Packs/Day Years [...] on filedocumented in this encounter Care Teams Web Page Developer Relationship Specialty Start Date End Date Dandre Chavez MD [address] [place] [address] [id number] PCP - General 09/05/17 Miguel Enciso MD [address] [facility], [address] [place], [place] [phone] Cardiology 05/28/24 documented as of this encounter Additional Source Comments The information contained in this document represents components of the legal health record. It is not the complete legal health record.[facility]
--- OUTSIDE RECORDS SUMMARY | 2025-05-17 05:50 | XMS_ITS | Encounter Summary ---
Author Organization [facility] Address [address] [place] [address] Phone Care Team Providers Care Screen Operator Name Role Phone Dandre Chavez MD Primary Care Provider [phone] Miguel Enciso MD Unavailable [phone] Encounter Details Date Type Department Care Team (Late st Contact Info) Description 08/18/2021 Procedure Pass Echo Lab [address] [id number] Social History Tobacco Use Types Packs/Day Years [...] on filedocumented in this encounter Care Teams Screen Operator Relationship Specialty Start Date End Date Dandre Chavez MD [address] [place] [id number] PCP - General 09/05/17 Miguel Enciso MD [address] [place] [address], [address] [place], [place] [phone] Cardiology 05/28/24 documented as of this encounter Additional Source Comments The information contained in this document represents components of the legal health record. It is not the complete legal health record.[facility]
--- OUTSIDE RECORDS SUMMARY | 2025-05-17 05:50 | XMS_ITS | Encounter Summary ---
Author Organization [facility], Address [address] [place] [address] Phone Care Team Providers Care Switchboard Manager Name Role Phone Dandre Chavez MD Primary Care Provider [phone] Encounter Details Date Type Department Care Team (Late st Contact Info) Description 01/14/2023 Documentation Only [facility], [address] [place] [address] Melissa Delgadillo [address] [place] [phone] Social History Tobacco Use Types Packs/Day Years [...] on filedocumented in this encounter Care Teams Switchboard Manager Relationship Specialty Start Date End Date Dandre Chavez MD [address] [place] [address], [address] [place], [place] PCP - General 07/07/19 documented as of this encounter
--- OUTSIDE RECORDS SUMMARY | 2025-05-17 05:50 | XMS_ITS | Encounter Summary ---
Author Organization [facility], Address [address] [place] [address] Phone Care Team Providers Care Packager Or Packer And Weigher Name Role Phone Dandre Chavez MD Primary Care Provider [phone] Encounter Details Date Type Department Care Team (Late st Contact Info) Description 10/12/2021 Documentation Only [facility], [address] [place] [address] Faina Villegas PA Social History Tobacco Use [...] on filedocumented in this encounter Care Teams Packager Or Packer And Weigher Relationship Specialty Start Date End Date Dandre Chavez MD [address] [place] [address], [address] [place], [place] PCP - General 07/07/19 documented as of this encounter
--- OUTSIDE RECORDS SUMMARY | 2025-05-17 05:50 | XMS_ITS | Encounter Summary ---
Author Organization [facility], Address [address] [place] [address] Phone Care Team Providers Care Supervisor Communications And Signals Name Role Phone Dandre Chavez MD Primary Care Provider [phone] Encounter Details Date Type Department Care Team (Late st Contact Info) Description 02/09/2022 Documentation Only [facility], [address] [place] [address] Faina Villegas PA Social History Tobacco Use [...] on filedocumented in this encounter Care Teams Supervisor Communications And Signals Relationship Specialty Start Date End Date Dandre Chavez MD [address] [place] [address], [address] [place], [place] PCP - General 07/07/19 documented as of this encounter
--- OUTSIDE RECORDS SUMMARY | 2025-05-17 05:50 | XMS_ITS | Encounter Summary ---
Author Organization [facility] Address [address] [place], [place] [address] [place] [address] Phone Care Team Providers Care Loss Control Representative Name Role Phone Dandre Chavez MD Primary Care Provider [phone] Miguel Enciso MD Unavailable [phone] Encounter Details Date Type Department Care Team (Late st Contact Info) Description 07/01/2024 Procedure Pass [facility] Cardiology Referral Images [address] [facility] [address] [place] [address] Social History Tobacco Use Types Packs/Day Years [...] on filedocumented in this encounter Care Teams Loss Control Representative Relationship Specialty Start Date End Date Dandre Chavez MD [address] [place] [address] PCP - General 09/05/17 Miguel Enciso MD [address] [place] [address] [email or web address] Cardiology 05/28/24 documented as of this encounter Additional Source Comments The information contained in this document represents components of the legal health record. It is not the complete legal health record.[facility]
--- OUTSIDE RECORDS SUMMARY | 2025-05-17 05:50 | XMS_ITS | Encounter Summary ---
Author Organization [facility] Address [address] [place] [address] Phone Care Team Providers Care Engineering Production Liaison Name Role Phone Dandre Chavez MD Primary Care Provider [phone] Miguel Enciso MD Unavailable [phone] Encounter Details Date Type Department Care Team (Late st Contact Info) Description 12/20/2022 Procedure Pass Non-Invasive Cardiology 22 [place], [place] [id number] Social History Tobacco Use Types Packs/Day Years [...] on filedocumented in this encounter Care Teams Engineering Production Liaison Relationship Specialty Start Date End Date Dandre Chavez MD [address] [place] [id number] PCP - General 09/05/17 Miguel Enciso MD [address] [place] [address], [address] [place], [place] [phone] Cardiology 05/28/24 documented as of this encounter Additional Source Comments The information contained in this document represents components of the legal health record. It is not the complete legal health record.[facility]
--- OUTSIDE RECORDS SUMMARY | 2025-05-17 05:50 | XMS_ITS | Encounter Summary ---
Author Organization [facility] Address [address] [place] [address] Phone Care Team Providers Care Lime Filter Operator Name Role Phone Dandre Chavez MD Primary Care Provider [phone] Miguel Enciso MD Unavailable [phone] Encounter Details Date Type Department Care Team (Late st Contact Info) Description 04/03/2022 Procedure Pass [facility] Cardiovascular And Interventional Radiology [address] [place] [address] Social History Tobacco Use Types Packs/Day Years [...] on filedocumented in this encounter Care Teams Lime Filter Operator Relationship Specialty Start Date End Date Dandre Chavez MD [address] [phone] PCP - General 09/05/17 Miguel Enciso MD [address] [place] [address], [address] [place], [place] [phone] Cardiology 05/28/24 documented as of this encounter Additional Source Comments The information contained in this document represents components of the legal health record. It is not the complete legal health record.[facility]
--- OUTSIDE RECORDS SUMMARY | 2025-05-17 05:50 | XMS_ITS | Encounter Summary ---
Author Organization [facility] Address [address] [place], [place] [address] [place] [address] Phone Care Team Providers Care Sports Information Director Name Role Phone Dandre Chavez MD Primary Care Provider [phone] Miguel Enciso MD Unavailable [phone] Encounter Details Date Type Department Care Team (Late st Contact Info) Description 07/01/2024 Procedure Pass [facility] Cardiology Referral Images [address] [facility] [address] [place] [address] Social History Tobacco Use Types Packs/Day Years [...] on filedocumented in this encounter Care Teams Sports Information Director Relationship Specialty Start Date End Date Dandre Chavez MD [address] [place] [address] PCP - General 09/05/17 Miguel Enciso MD [address] [place] [address] [email or web address] Cardiology 05/28/24 documented as of this encounter Additional Source Comments The information contained in this document represents components of the legal health record. It is not the complete legal health record.[facility]
--- OUTSIDE RECORDS SUMMARY | 2025-05-17 05:50 | XMS_ITS | Encounter Summary ---
Author Organization [facility] Address [address] [place] [address] Care Team Providers Care Ship Boat Or Barge Mate Name Role Phone Amina Burciaga MD Primary Care Provider [phone] Encounter Details Date Type Department Care Team (Late st Contact Info) Description 09/30/2024 Lab Requisition [facility] - Main Lab [address] [facility] [place] [address] sIaac Stark MD [address] [place] [address] [place] [address] Heart failure, unspecified [...] (ABNORMAL) Vitamin B12 (09/30/2024 9:57 AM EST) [facility] Vitamin B-12 1,028(H) 250 - 900 pcg/mL LAB CHEMISTRY METHOD 09/30/2024 1:04 PM [facility] Blood Venous blood specimen / Unknown Venipuncture / Unknown 09/30/2024 9:57 AM EST 09/30/2024 10:50 AM EST us Isaac Stark MD LAB BLOOD ORDERABLES Final Resu lt [facility] [address] [place] [address], [place] [phone] * (ABNORMAL) Comprehensive metabolic panel (09/30/2024 9:57 AM EST) [facility] Sodium 138 133 - 145 mmol/L LAB CHEMISTRY METHOD 09/30/2024 1:04 PM [facility] Potassium 3.7 3.5 - 5.5 mmol/L LAB CHEMISTRY METHOD 09/30/2024 1:04 PM [facility] Chloride 100 96 - 110 mmol/L LAB CHEMISTRY METHOD 09/30/2024 1:04 PM [facility] CO2 31 21 - 32 mmol/L LAB CHEMISTRY METHOD 09/30/2024 1:04 PM [facility] Anion Gap 7 3 - 11 LAB CHEMISTRY METHOD 09/30/2024 1:04 PM [facility] Glucose 228(H) 70 - 100 mg/dL LAB CHEMISTRY METHOD 09/30/2024 1:04 PM [facility] BUN 90(H) 5 - 25 mg/dL LAB CHEMISTRY METHOD 09/30/2024 1:04 PM [facility] Creatinine 2.19(H) 0.50 - 1.10 mg/dL LAB CHEMISTRY METHOD 09/30/2024 1:04 PM [facility] eGFR 23(L) >=60 mL/min/1. 73m2 LAB CHEMISTRY METHOD 09/30/2024 1:04 PM [facility] Comment:Calculation based on the Chronic Kidney Disease Epidemiology Collaboration (CKD-EPI) equation refit without adjustment for race. BUN/Creatinine Ratio 41.1 LAB CHEMISTRY METHOD 09/30/2024 1:04 PM [facility] Calcium 8.9 8.5 - 10.5 mg/dL LAB CHEMISTRY METHOD 09/30/2024 1:04 PM [facility] AST (SGOT) 22 10 - 42 unit/L LAB CHEMISTRY METHOD 09/30/2024 1:04 PM [facility] ALT (SGPT) 28 10 - 60 unit/L LAB CHEMISTRY METHOD 09/30/2024 1:04 PM [facility] Alkaline Phosphatase 47 42 - 121 unit/L LAB CHEMISTRY METHOD 09/30/2024 1:04 PM [facility] Total Protein 6.2 6.0 - 8.0 g/dL LAB CHEMISTRY METHOD 09/30/2024 1:04 PM [facility] Albumin 2.7(L) 3.2 - 5.0 g/dL LAB CHEMISTRY METHOD 09/30/2024 1:04 PM [facility] Total Bilirubin 0.6 0.0 - 1.4 mg/dL LAB CHEMISTRY METHOD 09/30/2024 1:04 PM [facility] Blood Venous blood specimen / Unknown Venipuncture / Unknown 09/30/2024 9:57 AM EST 09/30/2024 10:50 AM EST us Isaac Stark MD LAB BLOOD ORDERABLES Final Resu lt [facility] [address] [place] [address], * (ABNORMAL) Complete blood count (09/30/2024 9:57 AM EST) [facility] WBC 5.9 4.8 - 10.8 K/mcL LAB HEMETOLOGY METHOD 09/30/2024 12:25 PM [facility] RBC 3.80 3.80 - 4.80 M/mcL LAB HEMETOLOGY METHOD 09/30/2024 12:25 PM [facility] Hemoglobin 11.2(L) 11.5 - 16.0 g/dL LAB HEMETOLOGY METHOD 09/30/2024 12:25 PM [facility] Hematocrit 37.7 35.0 - 47.0 % LAB HEMETOLOGY METHOD 09/30/2024 12:25 PM [facility] MCV 98.2(H) 79.0 - 98.0 FL LAB HEMETOLOGY METHOD 09/30/2024 12:25 PM [facility] MCH 29.2 27.0 - 32.0 pcg LAB HEMETOLOGY METHOD 09/30/2024 12:25 PM [facility] MCHC 29.7(L) 32.0 - 37.0 g/dL LAB HEMETOLOGY METHOD 09/30/2024 12:25 PM [facility] RDW 17.7(H) 11.0 - 15.0 % LAB HEMETOLOGY METHOD 09/30/2024 12:25 PM [facility] Platelets 183 130 - 400 K/mcL LAB HEMETOLOGY METHOD 09/30/2024 12:25 PM [facility] MPV 11.7(H) 7.0 - 11.0 FL LAB HEMETOLOGY METHOD 09/30/2024 12:25 PM [facility] NRBC 0.0 <1.0 % LAB HEMETOLOGY METHOD 09/30/2024 12:25 PM [facility] NRBC Absolute 0.00 <0.10 K/mcL LAB HEMETOLOGY METHOD 09/30/2024 12:25 PM EST [facility] Blood Venous blood specimen / Unknown Venipuncture / Unknown 09/30/2024 9:57 AM EST 09/30/2024 10:50 AM EST us Isaac Stark MD LAB BLOOD ORDERABLES Final Resu lt Performing Organization Address City/[facility]/ZIP Co de Phone Number [facility] [address] [place] [address], [place] [phone] * Vitamin D 25 hydroxy (09/30/2024 9:57 AM EST) Vit D, 25-Hydroxy 54.9 30.0 - 80.0 ng/mL LAB CHEMISTRY METHOD 09/30/2024 12:48 PM EST [facility] Blood Venous blood specimen / Unknown Venipuncture / Unknown 09/30/2024 9:57 AM EST 09/30/2024 10:50 AM EST us Isaac Stark MD LAB BLOOD ORDERABLES Final Resu lt Performing Organization Address [facility]/ZIP Co de Phone Number [facility] [address] [place] [address], [place] [phone] documented in this encounter Visit Diagnoses Diagnosis Heart failure, unspecified (CMS/HCC V24, CMS/HCC V28) Heart failure, unspecified Vitamin D deficiency, unspecified documented in this encounter Care Teams Ship Boat Or Barge Mate Relationship Specialty Start Date End Date Amina Burciaga MD [address] [place] [phone] PCP - General Hospitalist Medicine 09/11/24 documented as of this encounter
--- OUTSIDE RECORDS SUMMARY | 2025-05-17 05:50 | XMS_ITS | Encounter Summary ---
Author Organization [facility] Address [address] [place] [address] Care Team Providers Care Health And Wellness Director Name Role Phone Amina Burciaga MD Primary Care Provider [phone] Encounter Details Date Type Department Care Team (Latest Contact Info) Description 09/07/2024 Lab Requisition [facility] - Main Lab [address] [facility] [employer] [place] [address] Amina Burciaga MD [address] [place] [address] Heart failure, unspecified (CMS/HCC V24, [...] unspecified Type 2 diabetes mellitus without complications ([facility]) documented in this encounter Results * Hemoglobin A1c (09/07/2024 6:24 AM EST) Pathologist [facility] Hemoglobin A1C 5.1 <6.5 % LAB CHEMISTRY METHOD 09/07/2024 11:11 AM EST [facility] Mean Bld Glu Estim. 100 mg/dL LAB CHEMISTRY METHOD 09/07/2024 11:11 AM [facility] Blood Venous blood specimen / Unknown Venipuncture / Unknown 09/07/2024 6:24 AM EST 09/07/2024 8:12 AM EST Amina Burciaga MD LAB BLOOD ORDERABLES Final Resul t [facility] [address] [place] [address], * (ABNORMAL) Comprehensive metabolic panel (09/07/2024 6:24 AM EST) [facility] Sodium 140 133 - 145 mmol/L LAB CHEMISTRY METHOD 09/07/2024 9:18 AM [facility] Potassium 3.8 3.5 - 5.5 mmol/L LAB CHEMISTRY METHOD 09/07/2024 9:18 AM [facility] Chloride 106 96 - 110 mmol/L LAB CHEMISTRY METHOD 09/07/2024 9:18 AM [facility] CO2 28 21 - 32 mmol/L LAB CHEMISTRY METHOD 09/07/2024 9:18 AM [facility] Anion Gap 6 3 - 11 LAB CHEMISTRY METHOD 09/07/2024 9:18 AM [facility] Glucose 61(L) 70 - 100 mg/dL LAB CHEMISTRY METHOD 09/07/2024 9:18 AM [facility] BUN 59(H) 5 - 25 mg/dL LAB CHEMISTRY METHOD 09/07/2024 9:18 AM [facility] Creatinine 3.13(H) 0.50 - 1.10 mg/dL LAB CHEMISTRY METHOD 09/07/2024 9:18 AM [facility] eGFR 15(L) >=60 mL/min/1. 73m2 LAB CHEMISTRY METHOD 09/07/2024 9:18 AM [facility] Comment:Calculation based on the Chronic Kidney Disease Epidemiology Collaboration (CKD-EPI) equation refit without adjustment for race. BUN/Creatinine Ratio 18.8 LAB CHEMISTRY METHOD 09/07/2024 9:18 AM [facility] Calcium 9.0 8.5 - 10.5 mg/dL LAB CHEMISTRY METHOD 09/07/2024 9:18 AM [facility] AST (SGOT) 17 10 - 42 unit/L LAB CHEMISTRY METHOD 09/07/2024 9:18 AM [facility] ALT (SGPT) 20 10 - 60 unit/L LAB CHEMISTRY METHOD 09/07/2024 9:18 AM [facility] Alkaline Phosphatase 60 42 - 121 unit/L LAB CHEMISTRY METHOD 09/07/2024 9:18 AM [facility] Total Protein 6.9 6.0 - 8.0 g/dL LAB CHEMISTRY METHOD 09/07/2024 9:18 AM [facility] Albumin 3.0(L) 3.2 - 5.0 g/dL LAB CHEMISTRY METHOD 09/07/2024 9:18 AM [facility] Total Bilirubin 0.5 0.0 - 1.4 mg/dL LAB CHEMISTRY METHOD 09/07/2024 9:18 AM [facility] Blood Venous blood specimen / Unknown Venipuncture / Unknown 09/07/2024 6:24 AM EST 09/07/2024 8:12 AM EST us Amina Burciaga MD LAB BLOOD ORDERABLES Final Resul t [facility] [address] [place] [address], * (ABNORMAL) Complete blood count (09/07/2024 6:24 AM EST) [facility] Signature WBC 4.7(L) 4.8 - 10.8 K/mcL LAB HEMETOLOGY METHOD 09/07/2024 8:53 AM [facility] RBC 3.00(L) 3.80 - 4.80 M/mcL LAB HEMETOLOGY METHOD 09/07/2024 8:53 AM [facility] Hemoglobin 8.9(L) 11.5 - 16.0 g/dL LAB HEMETOLOGY METHOD 09/07/2024 8:53 AM [facility] Hematocrit 30.6(L) 35.0 - 47.0 % LAB HEMETOLOGY METHOD 09/07/2024 8:53 AM [facility] MCV 101.7(H) 79.0 - 98.0 FL LAB HEMETOLOGY METHOD 09/07/2024 8:53 AM [facility] MCH 29.6 27.0 - 32.0 pcg LAB HEMETOLOGY METHOD 09/07/2024 8:53 AM [facility] MCHC 29.1(L) 32.0 - 37.0 g/dL LAB HEMETOLOGY METHOD 09/07/2024 8:53 AM [facility] RDW 20.1(H) 11.0 - 15.0 % LAB HEMETOLOGY METHOD 09/07/2024 8:53 AM [facility] Platelets 196 130 - 400 K/mcL LAB HEMETOLOGY METHOD 09/07/2024 8:53 AM [facility] MPV 10.0 7.0 - 11.0 FL LAB HEMETOLOGY METHOD 09/07/2024 8:53 AM [facility] NRBC 0.0 <1.0 % LAB HEMETOLOGY METHOD 09/07/2024 8:53 AM EST [facility] NRBC Absolute 0.00 <0.10 K/mcL LAB HEMETOLOGY METHOD 09/07/2024 8:53 AM EST [facility] Blood Venous blood specimen / Unknown Venipuncture / Unknown 09/07/2024 6:24 AM EST 09/07/2024 8:12 AM EST us Amina Burciaga MD LAB BLOOD ORDERABLES Final Resul t [facility] [address] [place] [address], documented in this encounter Visit Diagnoses Diagnosis Heart failure, unspecified (CMS/HCC V24, CMS/HCC V28) Heart failure, unspecified Chronic kidney disease, unspecified Type 2 diabetes mellitus without complications (CMS/HCC V24, CMS/HCC V28) documented in this encounter Care Teams Health And Wellness Director Relationship Specialty Start Date End Date Amina Burciaga MD [address] [place] [address] PCP - General Hospitalist Medicine 09/11/24 documented as of this encounter"
--- OUTSIDE RECORDS SUMMARY | 2025-05-17 05:51 | XMS_ITS | Encounter Summary ---
Author Organization [facility] Address [address] [place] [address] Phone Care Team Providers Care Balance Wheel Motion Inspector Name Role Phone Dandre Chavez MD Primary Care Provider [phone] Miguel Enciso MD Unavailable [phone] Encounter Details Date Type Department Care Team (Late st Contact Info) Description 09/18/2019 Ancillary Orders [facility] [address]rd Floor [place], [place] [phone] Miguel Enciso MD [address] [place] [address], [address] [place], [place] [phone] [email or web address] PVD (peripheral vascular disease) Social [...] disease documented in this encounter Care Teams Balance Wheel Motion Inspector Relationship Specialty Start Date End Date Dandre Chavez MD [address] [place] [address] PCP - General 09/05/17 Miguel Enciso MD [address] [place] [address] [address] [place] [address] Cardiology 05/28/24 documented as of this encounter Additional Source Comments The information contained in this document represents components of the legal health record. It is not the complete legal health record.[facility]
[2025-05-17 06:23] LABS: Hematocrit 29.6 % (37.0-47.0); Hemoglobin 8.7 g/dl (12.0-16.0); Imm Gran Abs Auto 0.03 X10*3/uL (0.00-0.03); Imm Gran Pct Auto 0.5 % (0.0-0.4); Lymphocytes Absolute Auto 0.5 X10*3/uL (1.2-4.9); Mean Corpuscular HGB Conc 29.4 g/dl (31.0-35.0); Mean Corpuscular Hemoglobin 27.4 pg (27.0-33.0); Mean Corpuscular Volume 93.4 fL (80.0-98.0); NRBC Abs Auto 0.000 X10*3/uL (0.0-0.012); NRBC Pct Auto 0.0 /100WBC (0.0-0.2); Platelet Count 187 X10*3/uL (160-400); Red Blood Count 3.17 X10*6/uL (4.20-5.50); White Blood Count 5.6 X10*3/uL (4.8-10.8)
[2025-05-17 06:59] LABS: Anion Gap 17 (12-20); Blood Urea Nitrogen 110 mg/dL (9-16); Calcium 8.9 mg/dL (8.4-10.2); Carbon Dioxide 28 mmol/L (22-29); Chloride 99 mmol/L (96-108); Estimated Glomerular Filt Rate 13; Potassium 3.2 mmol/L (3.3-5.1); Sodium 141 mmol/L (135-145)
== END 2025-05-17 05:46 | disposition home or self-care (01) ==
LOC: HO.MMNH2L 05:45
PROVIDERS: Visit Provider Nurse Practitioner Family
DX: I50.9 Heart failure, unspecified (principal)
CPT/HCPCS: 36415; 80048; 85025

== ENCOUNTER 2025-05-20 05:32 | Outpatient (REF) | payer MEDICARE, SELFPAY ==
--- OUTSIDE RECORDS SUMMARY | 2018-12-31 05:05 | XMS_ITS | Continuity of Care Document ---
Author Organization [facility] Address [address] [address] Phone Care Team Providers Care Body Shop Supervisor Name Role Phone Brodie Hinds DO Unavailable Unavailable Advance Directives Directive Yes / No Effective Date File Name No Information Encounters Encounter Description Practice Location Reason(s) For Visit Diagnoses Date Provider [facility], [address], [id number], [place] tel:[phone] [address] [place] [address] No Information 2018 Guzman Calloway. [address] [place] [address], [id number], [place]. tel:[phone] Family History Family Member Type Diagnosis Age [...]
--- OUTSIDE RECORDS SUMMARY | 2025-05-20 05:36 | XMS_ITS | Clinical Summary ---
Author Organization [facility], Address [address] [place] [address] Phone Care Team Providers Care Activity Leader Name Role Phone Dandre Chavez MD Primary Care Provider [phone] Allergies Active Allergy Reactions Criticality Noted Date [...] PM EST) Hemoglobin A1C 6.9(H) (4.0-5.6) % [facility] Comment: MONITORING: In known diabetic patients, hemoglobin A1c targets should be discussed with health care provider. DIAGNOSTIC USE: The [place] Diabetes Association (ADA) and the World Health [...] Supplement 1 Testing performed or reported by [facility], a Service of [address] [address] Louis Fry MD, Math Interventionist [facility]# [id number] Blood specimen (specimen) Venous blood / Unknown 10/18/2022 2:34 PM EST 10/18/2022 2:35 PM EST us Faina ULCIANO LAB BLOOD ORDERABLES Final Res ult [facility] from Last 3 Months or Most Recently Relevant to Health Maintenance Insurance Medicare [facility] [place] [id number] Care Teams Activity Leader Relationship Specialty Start Date End Date Dandre Chavez MD [address] [place] [address], [address] [place] PCP - General 07/07/19
--- OUTSIDE RECORDS SUMMARY | 2025-05-20 05:36 | XMS_ITS | Encounter Summary ---
Author Organization [facility], Address [address] [place] [address] Phone Care Team Providers Care Prenatal Teacher Name Role Phone Dandre Chavez MD Primary Care Provider [phone] Encounter Details Date Type Department Care Team (Late st Contact Info) Description 08/06/2023 Documentation Only [facility], [address] [place] [address] Desi Rodriguez Social History Tobacco Use Types [...] on filedocumented in this encounter Care Teams Prenatal Teacher Relationship Specialty Start Date End Date Dandre Chavez MD [address] [place] [address], [address] [place], [place] PCP - General 07/07/19 documented as of this encounter
--- OUTSIDE RECORDS SUMMARY | 2025-05-20 05:36 | XMS_ITS | Encounter Summary ---
Author Organization [facility] Address [address] [place] [address] Care Team Providers Care Document Management Analyst Name Role Phone Amina Burciaga MD Primary Care Provider [phone] Encounter Details Date Type Department Care Team (Latest Contact Info) Description 09/07/2024 Lab Requisition [facility] - Main Lab [address] [facility] [place] [address] Amina Burciaga MD [address] [place] [address] Heart failure, unspecified (CMS/HCC V24, [...] unspecified Type 2 diabetes mellitus without complications ([facility]) documented in this encounter Results * Hemoglobin A1c (09/07/2024 6:24 AM EST) Pathologist [facility] Hemoglobin A1C 5.1 <6.5 % LAB CHEMISTRY METHOD 09/07/2024 11:11 AM EST [facility] Mean Bld Glu Estim. 100 mg/dL LAB CHEMISTRY METHOD 09/07/2024 11:11 AM [facility] Blood Venous blood specimen / Unknown Venipuncture / Unknown 09/07/2024 6:24 AM EST 09/07/2024 8:12 AM EST Amina Burciaga MD LAB BLOOD ORDERABLES Final Resul t [facility] [address] [place] [address], * (ABNORMAL) Comprehensive metabolic panel (09/07/2024 6:24 AM EST) [facility] Sodium 140 133 - 145 mmol/L LAB [...] MD LAB BLOOD ORDERABLES Final Resul t [facility] [address] [place] [address], * (ABNORMAL) Complete blood count (09/07/2024 6:24 AM EST) [facility] Signature WBC 4.7(L) 4.8 - 10.8 [...] LAB HEMETOLOGY METHOD 09/07/2024 8:53 AM EST [facility] NRBC Absolute 0.00 <0.10 K/mcL LAB HEMETOLOGY METHOD 09/07/2024 8:53 AM EST [facility] Blood Venous blood specimen / Unknown Venipuncture / Unknown 09/07/2024 6:24 AM EST 09/07/2024 8:12 AM EST us Amina Burciaga MD LAB BLOOD ORDERABLES Final Resul t [facility] [address] [place] [address], documented in this encounter Visit Diagnoses Diagnosis Heart failure, unspecified (CMS/HCC V24, CMS/HCC V28) Heart failure, unspecified Chronic kidney disease, unspecified Type 2 diabetes mellitus without complications (CMS/HCC V24, CMS/HCC V28) documented in this encounter Care Teams Document Management Analyst Relationship Specialty Start Date End Date Amina Burciaga MD [address] [place] [address] PCP - General Hospitalist Medicine 09/11/24 documented as of this encounter
--- OUTSIDE RECORDS SUMMARY | 2025-05-20 05:36 | XMS_ITS | Encounter Summary ---
Author Organization [facility], Address [address] [place] [address] Phone Care Team Providers Care Stitcher Tape Controlled Machine Name Role Phone Dandre Chavez MD Primary Care Provider [phone] Encounter Details Date Type Department Care Team (Late st Contact Info) Description 01/08/2025 Documentation Only [facility], [address] [place] [address] Radha Chatterjee [place] [address] [place] [phone] Social History Tobacco Use Types Packs/Day Years [...] on filedocumented in this encounter Care Teams Stitcher Tape Controlled Machine Relationship Specialty Start Date End Date Dandre Chavez MD [address] [place] [address], [address] [place], [place] PCP - General 07/07/19 documented as of this encounter
--- OUTSIDE RECORDS SUMMARY | 2025-05-20 05:36 | XMS_ITS | Encounter Summary ---
Author Organization [facility] Address [address] [place] [address] Care Team Providers Care Sports Broadcaster Name Role Phone Amina Burciaga MD Primary Care Provider [phone] Encounter Details Date Type Department Care Team (Latest Contact Info) Description 09/23/2024 Lab Requisition [facility] - Main Lab 299 [facility] [place] [address] Amina Burciaga MD [address] [place] [address] Type 2 diabetes mellitus with [...] MD LAB BLOOD ORDERABLES Final Resul t [facility] [address] [place] [address], * (ABNORMAL) Comprehensive metabolic panel (09/23/2024 8:20 AM EST) Pathologist [facility] Sodium 140 133 - 145 mmol/L LAB CHEMISTRY METHOD 09/23/2024 4:[address] [facility] Potassium 3.9 3.5 - 5.5 mmol/L LAB CHEMISTRY METHOD 09/23/2024 4:[address] [facility] Chloride 102 96 - 110 mmol/L LAB CHEMISTRY METHOD 09/23/2024 4:[address] [facility] CO2 31 21 - 32 mmol/L LAB CHEMISTRY METHOD 09/23/2024 4:[address] [facility] Anion Gap 7 3 - 11 LAB CHEMISTRY METHOD 09/23/2024 4:[address] [facility] Glucose 106(H) 70 - 100 mg/dL LAB CHEMISTRY METHOD 09/23/2024 4:[address] [facility] BUN 82(H) 5 - 25 mg/dL LAB CHEMISTRY METHOD 09/23/2024 4:[address] [facility] Creatinine 2.46(H) 0.50 - 1.10 mg/dL LAB CHEMISTRY METHOD 09/23/2024 4:[address] [facility] eGFR 20(L) >=60 mL/min/1. 73m2 LAB CHEMISTRY METHOD 09/23/2024 4:[address] [facility] Comment:Calculation based on the Chronic Kidney Disease Epidemiology Collaboration (CKD-EPI) equation refit without adjustment for race. BUN/Creatinine Ratio 33.3 LAB CHEMISTRY METHOD 09/23/2024 4:[address] [facility] Calcium 8.7 8.5 - 10.5 mg/dL LAB CHEMISTRY METHOD 09/23/2024 4:[address] [facility] AST (SGOT) 17 10 - 42 unit/L LAB CHEMISTRY METHOD 09/23/2024 4:[address] [facility] ALT (SGPT) 34 10 - 60 unit/L LAB CHEMISTRY METHOD 09/23/2024 4:[address] [facility] Alkaline Phosphatase 57 42 - 121 unit/L LAB CHEMISTRY METHOD 09/23/2024 4:[address] [facility] Total Protein 7.1 6.0 - 8.0 g/dL LAB CHEMISTRY METHOD 09/23/2024 4:[address] [facility] Albumin 3.2 3.2 - 5.0 g/dL LAB CHEMISTRY METHOD 09/23/2024 4:[address] [facility] Total Bilirubin 0.6 0.0 - 1.4 mg/dL LAB CHEMISTRY METHOD 09/23/2024 4:[address] [facility] Blood Venous blood specimen / Unknown Venipuncture / Unknown 09/23/2024 8:20 AM EST 09/23/2024 12:06 PM EST us Amina Burciaga MD LAB BLOOD ORDERABLES Final Resul t [facility] [address] [place] [address], * (ABNORMAL) Complete blood count (09/23/2024 8:20 AM EST) [facility] WBC 6.2 4.8 - 10.8 K/mcL LAB HEMETOLOGY METHOD 09/23/2024 12:[address] [facility] RBC 3.60(L) 3.80 - 4.80 M/mcL LAB HEMETOLOGY METHOD 09/23/2024 12:[address] [facility] Hemoglobin 10.5(L) 11.5 - 16.0 g/dL LAB HEMETOLOGY METHOD 09/23/2024 12:[address] [facility] Hematocrit 36.5 35.0 - 47.0 % LAB HEMETOLOGY METHOD 09/23/2024 12:[address] [facility] MCV 100.3(H) 79.0 - 98.0 FL LAB HEMETOLOGY METHOD 09/23/2024 12:[address] [facility] MCH 28.8 27.0 - 32.0 pcg LAB HEMETOLOGY METHOD 09/23/2024 12:[address] [facility] MCHC 28.8(L) 32.0 - 37.0 g/dL LAB HEMETOLOGY METHOD 09/23/2024 12:[address] [facility] RDW 18.4(H) 11.0 - 15.0 % LAB HEMETOLOGY METHOD 09/23/2024 12:[address] [facility] Platelets 254 130 - 400 K/mcL LAB HEMETOLOGY METHOD 09/23/2024 12:[address] [facility] MPV 10.7 7.0 - 11.0 FL LAB HEMETOLOGY METHOD 09/23/2024 12:[address] [facility] NRBC 0.0 <1.0 % LAB HEMETOLOGY METHOD 09/23/2024 12:38 PM EST [facility] NRBC Absolute 0.00 <0.10 K/mcL LAB HEMETOLOGY METHOD 09/23/2024 12:38 PM EST [facility] Blood Venous blood specimen / Unknown Venipuncture / Unknown 09/23/2024 8:20 AM EST 09/23/2024 12:06 PM EST us Amina Burciaga MD LAB BLOOD ORDERABLES Final Resul t [facility] [address] [place] [address], documented in this encounter Visit Diagnoses Diagnosis Type 2 diabetes mellitus with unspecified complications (CMS/HCC V24, CMS/HCC V28) Unspecified systolic (congestive) heart failure (CMS/HCC V24, CMS/HCC V28) documented in this encounter Care Teams Sports Broadcaster Relationship Specialty Start Date End Date Amina Burciaga MD [address] [place] [address] PCP - General Hospitalist Medicine 09/11/24 documented as of this encounter
--- OUTSIDE RECORDS SUMMARY | 2025-05-20 05:36 | XMS_ITS | Encounter Summary ---
Author Organization [facility], Address [address] [place] [address] Phone Care Team Providers Care Criminal Attorney Name Role Phone Dandre Chavez MD Primary Care Provider [phone] Encounter Details Date Type Department Care Team (Late st Contact Info) Description 01/14/2023 Documentation Only [facility], [address] [place] [address] Melissa Delgadillo [address] [place] [phone] Social History Tobacco Use Types Packs/Day Years [...] on filedocumented in this encounter Care Teams Criminal Attorney Relationship Specialty Start Date End Date Dandre Chavez MD [address] [place] [address], [address] [place], [place] PCP - General 07/07/19 documented as of this encounter
--- OUTSIDE RECORDS SUMMARY | 2025-05-20 05:36 | XMS_ITS | Encounter Summary ---
Author Organization [facility], Address [address] [place] [address] Phone Care Team Providers Care Cone Marker Name Role Phone Dandre Chavez MD Primary Care Provider [phone] Encounter Details Date Type Department Care Team (Late st Contact Info) Description 11/29/2023 Documentation Only [facility], [address] [place] [address] Radha Chatterjee [place] [address] [place] [phone] Social History Tobacco Use Types Packs/Day Years [...] on filedocumented in this encounter Care Teams Cone Marker Relationship Specialty Start Date End Date Dandre Chavez MD [address] [place] [address], [address] [place], [place] PCP - General 07/07/19 documented as of this encounter
--- OUTSIDE RECORDS SUMMARY | 2025-05-20 05:36 | XMS_ITS | Clinical Summary ---
Author Organization [facility] Address [address] [place] [address] Care Team Providers Care Jewelry Drilling Machine Operator Name Role Phone Dandre Chavez MD Primary Care Provider [phone] Allergies Active Allergy Reactions Criticality Noted Date [...] age to complete this topic Care Teams Jewelry Drilling Machine Operator Relationship Specialty Start Date End Date Dandre Chavez MD [address] [place] [address] [place] [phone] PCP - General Internal Medicine 11/06/22
--- OUTSIDE RECORDS SUMMARY | 2025-05-20 05:36 | XMS_ITS | Clinical Summary ---
Author Organization [address] Address [address] [place] [address] Phone Care Team Providers Care Water Filterer Name Role Phone Amina Burciaga MD Primary Care Provider [phone] Immunizations Name Administration Dates Next Due Pfizer [...] LAB CHEMISTRY METHOD 09/30/2024 1:[address] [facility] Total Protein 6.2 6.0 - [...] ORDERABLES Final Resu lt Performing Organization Address City/[facility]/ZIP Co de Phone Number [facility] [address] [place] [address], [place] [phone] * Hemoglobin A1c (09/23/2024 8:20 AM EST) [...] ORDERABLES Final Resul t Performing Organization Address City/[facility]/ZIP Co de Phone Number [facility] [address] [place] [address], [place] [phone] from Last 3 Months or Most Recently Relevant to Health Maintenance Insurance [place] Care Teams Water Filterer Relationship Specialty Start Date End Date Amina Burciaga MD [address] [place] [address] PCP - General Hospitalist Medicine 09/11/24
--- OUTSIDE RECORDS SUMMARY | 2025-05-20 05:36 | XMS_ITS | Encounter Summary ---
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 Social History Tobacco [...] AM EDT) Max BP Systolic 150 mmHg [facility] Max BP Diastolic 80 mmHg [facility] Max HR 89 BPM [facility] Resting HR 78 BPM [facility] Resting BP Systolic 150 mmHg [facility] Resting BP Diastolic 80 mmHg [facility] Peak METS 1.0 METS [facility] Peak HR 83 BPM [facility] Anatomical Region Laterality Modality Heart [...] this encounter Visit Diagnoses Diagnosis 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 It is not the complete legal health record.[facility]
--- OUTSIDE RECORDS SUMMARY | 2025-05-20 05:36 | XMS_ITS | Encounter Summary ---
Author Organization [facility] Address [address] [place] [address] Care Team Providers Care Parking Line Painter Name Role Phone Amina Burciaga MD Primary Care Provider [phone] Encounter Details Date Type Department Care Team (Late st Contact Info) Description 09/30/2024 Lab Requisition [facility] - Main Lab 299 [facility] [place] [address] Isaac Stark MD [address] [place] [address] [place] [address] Heart failure, unspecified [...] (ABNORMAL) Vitamin B12 (09/30/2024 9:57 AM EST) [facility] Vitamin B-12 1,028(H) 250 - 900 pcg/mL LAB CHEMISTRY METHOD 09/30/2024 1:04 PM [facility] Blood Venous blood specimen / Unknown Venipuncture / Unknown 09/30/2024 9:57 AM EST 09/30/2024 10:50 AM EST us Isaac Stark MD LAB BLOOD ORDERABLES Final Resu lt [facility] [address] [place] [address], [place] [phone] * (ABNORMAL) Comprehensive metabolic panel (09/30/2024 9:57 AM EST) [facility] Sodium 138 133 - 145 mmol/L LAB [...] 1:04 PM [facility] Total Protein 6.2 [...] MD LAB BLOOD ORDERABLES Final Resu lt [facility] [address] [place] [address], * (ABNORMAL) Complete blood count (09/30/2024 9:57 AM EST) [facility] WBC 5.9 4.8 - 10.8 K/mcL LAB HEMETOLOGY METHOD 09/30/2024 12:25 PM [facility] RBC 3.80 3.80 - 4.80 M/mcL LAB HEMETOLOGY METHOD 09/30/2024 12:25 PM [facility] Hemoglobin 11.2(L) 11.5 - 16.0 g/dL LAB HEMETOLOGY METHOD 09/30/2024 12:25 PM [facility] Hematocrit 37.7 35.0 - 47.0 % LAB HEMETOLOGY METHOD 09/30/2024 12:25 PM [facility] MCV 98.2(H) 79.0 - 98.0 FL LAB HEMETOLOGY METHOD 09/30/2024 12:25 PM [facility] MCH 29.2 27.0 - 32.0 pcg LAB HEMETOLOGY METHOD 09/30/2024 12:25 PM [facility] MCHC 29.7(L) 32.0 - 37.0 g/dL LAB HEMETOLOGY METHOD 09/30/2024 12:25 PM [facility] RDW 17.7(H) 11.0 - 15.0 % LAB HEMETOLOGY METHOD 09/30/2024 12:25 PM [facility] Platelets 183 130 - 400 K/mcL LAB HEMETOLOGY METHOD 09/30/2024 12:25 PM [facility] MPV 11.7(H) 7.0 - 11.0 FL LAB HEMETOLOGY METHOD 09/30/2024 12:25 PM [facility] NRBC 0.0 <1.0 % LAB HEMETOLOGY METHOD 09/30/2024 12:25 PM [facility] NRBC Absolute 0.00 <0.10 K/mcL LAB HEMETOLOGY METHOD 09/30/2024 12:25 PM EST [facility] Blood Venous blood specimen / Unknown Venipuncture / Unknown 09/30/2024 9:57 AM EST 09/30/2024 10:50 AM EST us Isaac Stark MD LAB BLOOD ORDERABLES Final Resu lt Performing Organization Address City/[facility]/ZIP Co de Phone Number [facility] [address] [place] [address], [place] [phone] * Vitamin D 25 hydroxy (09/30/2024 9:57 AM EST) Vit D, 25-Hydroxy 54.9 30.0 - 80.0 ng/mL LAB CHEMISTRY METHOD 09/30/2024 12:48 PM EST [facility] Blood Venous blood specimen / Unknown Venipuncture / Unknown 09/30/2024 9:57 AM EST 09/30/2024 10:50 AM EST us Isaac Stark MD LAB BLOOD ORDERABLES Final Resu lt Performing Organization Address [facility]/ZIP Co de Phone Number [facility] [address] [place] [address], [place] [phone] documented in this encounter Visit Diagnoses Diagnosis Heart failure, unspecified (CMS/HCC V24, CMS/HCC V28) Heart failure, unspecified Vitamin D deficiency, unspecified documented in this encounter Care Teams Parking Line Painter Relationship Specialty Start Date End Date Amina Burciaga MD [address] [place] [phone] PCP - General Hospitalist Medicine 09/11/24 documented as of this encounter
--- OUTSIDE RECORDS SUMMARY | 2025-05-20 05:37 | XMS_ITS | Encounter Summary ---
Author Organization [facility], Address [address] [place] [address] Phone Care Team Providers Care Rn Burn Name Role Phone Dandre Chavez MD Primary Care Provider [phone] Encounter Details Date Type Department Care Team (Late st Contact Info) Description 12/31/2022 Documentation Only [facility], [address] [place] [address] Melissa Delgadillo [address] [place] [phone] Social History Tobacco Use Types Packs/Day Years [...] on filedocumented in this encounter Care Teams Rn Burn Relationship Specialty Start Date End Date Dandre Chavez MD [address] [place] [address], [address] [place], [place] PCP - General 07/07/19 documented as of this encounter
--- OUTSIDE RECORDS SUMMARY | 2025-05-20 05:37 | XMS_ITS | Encounter Summary ---
Author Organization [facility] Address [address] [place] [address] Care Team Providers Care Combination Welder Apprentice Name Role Phone Amina Burciaga MD Primary Care Provider Encounter Details Date Type Department Care Team (Latest Contact Info) Description 09/11/2024 Lab Requisition [facility] - Main Lab 299 [facility] [place] [address] Amina Burciaga MD [address] [place] [address] Other terminal system operator (current) drug therapy; Type 2 diabetes [...] COUNT Routine 09/11/2024 9:47 AM EST Other terminal system operator (current) drug therapy Type 2 diabetes [...] Results * Magnesium (09/11/2024 9:47 AM EST) [facility] Magnesium 2.1 1.9 - 2.6 mg/dL LAB CHEMISTRY METHOD 09/11/2024 12:45 PM [facility] Blood Venous blood specimen / Unknown Venipuncture / Unknown 09/11/2024 9:47 AM EST 09/11/2024 11:29 AM EST Amina Burciaga MD LAB BLOOD ORDERABLES Final Resul t [facility] [address] [place] [address], * (ABNORMAL) Basic metabolic panel (09/11/2024 9:47 AM EST) [facility] Sodium 137 133 - 145 mmol/L LAB CHEMISTRY METHOD 09/11/2024 12:54 PM [facility] Potassium 3.9 3.5 - 5.5 mmol/L LAB CHEMISTRY METHOD 09/11/2024 12:54 PM [facility] Chloride 103 96 - 110 mmol/L LAB CHEMISTRY METHOD 09/11/2024 12:54 PM [facility] CO2 26 21 - 32 mmol/L LAB CHEMISTRY METHOD 09/11/2024 12:54 PM [facility] Anion Gap 8 3 - 11 LAB CHEMISTRY METHOD 09/11/2024 12:54 PM [facility] Glucose 112(H) 70 - 100 mg/dL LAB CHEMISTRY METHOD 09/11/2024 12:54 PM [facility] BUN 50(H) 5 - 25 mg/dL LAB CHEMISTRY METHOD 09/11/2024 12:54 PM [facility] Creatinine 2.73(H) 0.50 - 1.10 mg/dL LAB CHEMISTRY METHOD 09/11/2024 12:54 PM [facility] eGFR 17(L) >=60 mL/min/1. 73m2 LAB CHEMISTRY METHOD 09/11/2024 12:54 PM [facility] Comment:Calculation based on the Chronic Kidney Disease Epidemiology Collaboration (CKD-EPI) equation refit without adjustment for race. BUN/Creatinine Ratio 18.3 LAB CHEMISTRY METHOD 09/11/2024 12:54 PM [facility] Calcium 8.6 8.5 - 10.5 mg/dL LAB CHEMISTRY METHOD 09/11/2024 12:54 PM [facility] Blood Venous blood specimen / Unknown Venipuncture / Unknown 09/11/2024 9:47 AM EST 09/11/2024 11:29 AM EST Amina Burciaga MD LAB BLOOD ORDERABLES Final Resul t [facility] [address] [place] [address], * (ABNORMAL) Complete blood count (09/11/2024 9:47 AM EST) WBC 6.9 4.8 - 10.8 K/mcL LAB HEMETOLOGY METHOD 09/11/2024 11:47 AM [facility] RBC 3.10(L) 3.80 - 4.80 M/mcL LAB HEMETOLOGY METHOD 09/11/2024 11:47 AM [facility] Hemoglobin 9.0(L) 11.5 - 16.0 g/dL LAB HEMETOLOGY METHOD 09/11/2024 11:47 AM [facility] Hematocrit 31.6(L) 35.0 - 47.0 % LAB HEMETOLOGY METHOD 09/11/2024 11:47 AM [facility] MCV 102.6(H) 79.0 - 98.0 FL LAB HEMETOLOGY METHOD 09/11/2024 11:47 AM EST [facility] MCH 29.2 27.0 - 32.0 pcg LAB HEMETOLOGY METHOD 09/11/2024 11:47 AM [facility] MCHC 28.5(L) 32.0 - 37.0 g/dL LAB HEMETOLOGY METHOD 09/11/2024 11:47 AM EST [facility] RDW 20.6(H) 11.0 - 15.0 % LAB HEMETOLOGY METHOD 09/11/2024 11:47 AM EST [facility] Platelets 180 130 - 400 K/mcL LAB HEMETOLOGY METHOD 09/11/2024 11:47 AM [facility] MPV 9.9 7.0 - 11.0 FL LAB HEMETOLOGY METHOD 09/11/2024 11:47 AM EST [facility] NRBC 0.0 <1.0 % LAB HEMETOLOGY METHOD 09/11/2024 11:47 AM [facility] NRBC Absolute 0.00 <0.10 K/mcL LAB HEMETOLOGY METHOD 09/11/2024 11:47 AM [facility] Blood Venous blood specimen / Unknown Venipuncture / Unknown 09/11/2024 9:47 AM EST 09/11/2024 11:29 AM EST us Amina Burciaga MD LAB BLOOD ORDERABLES Final Resul t [facility] [address] [place] [address], documented in this encounter Visit Diagnoses Diagnosis Other jail (current) drug therapy Type 2 diabetes mellitus without complications (CMS/HCC V24, CMS/HCC V28) Heart failure, unspecified (CMS/HCC V24, CMS/HCC V28) Heart failure, unspecified documented in this encounter Care Teams Combination Welder Apprentice Relationship Specialty Start Date End Date Amina Burciaga MD [address] [place] [address] PCP - General Hospitalist Medicine 09/11/24 documented as of this encounter
--- OUTSIDE RECORDS SUMMARY | 2025-05-20 05:37 | XMS_ITS | Encounter Summary ---
Author Organization [facility] Address [address] [place] [phone] Care Team Providers Care International Exchange Coordinator Name Role Phone Amina Burciaga MD Primary Care Provider [phone] Encounter Details Date Type Department Care Team (Late st Contact Info) Description 08/10/2024 Lab Requisition [facility] - Main Lab 299 [facility] [place] [address] Hortencia Mcclellan MD [address] [id number] Type 2 diabetes mellitus without complications (CMS/HCC [...] unspecified documented in this encounter Care Teams International Exchange Coordinator Relationship Specialty Start Date End Date Amina Burciaga MD [address] [place] [address] PCP - General Hospitalist Medicine 09/11/24 documented as of this encounter
--- OUTSIDE RECORDS SUMMARY | 2025-05-20 05:37 | XMS_ITS | Encounter Summary ---
Author Organization [facility], Address [address] [place] [address] Phone Care Team Providers Care Machine Cell Tuber Name Role Phone Dandre Chavez MD Primary Care Provider [phone] Encounter Details Date Type Department Care Team (Late st Contact Info) Description 09/07/2022 Documentation Only [facility], [address] [place] [address] Faina Villegas PA Social History Tobacco Use [...] on filedocumented in this encounter Care Teams Machine Cell Tuber Relationship Specialty Start Date End Date Dandre Chavez MD [address] [place] [address], [address] [place], [place] PCP - General 07/07/19 documented as of this encounter
--- OUTSIDE RECORDS SUMMARY | 2025-05-20 05:37 | XMS_ITS | Encounter Summary ---
Author Organization [facility], Address [address] [place] [address] Phone Care Team Providers Care Prepress Operator Name Role Phone Dandre Chavez MD Primary Care Provider [phone] Encounter Details Date Type Department Care Team (Late st Contact Info) Description 02/09/2022 Documentation Only [facility], [address] [place] [address] Faina Villegas PA Social History Tobacco Use [...] on filedocumented in this encounter Care Teams Prepress Operator Relationship Specialty Start Date End Date Dandre Chavez MD [address] [place] [address], [address] [place], [place] PCP - General 07/07/19 documented as of this encounter
--- OUTSIDE RECORDS SUMMARY | 2025-05-20 05:37 | XMS_ITS | Encounter Summary ---
Author Organization [facility], Address [address] [place] [address] Phone Care Team Providers Care Commercial Decorator Name Role Phone Dandre Chavez MD Primary Care Provider [phone] Encounter Details Date Type Department Care Team (Late st Contact Info) Description 10/30/2022 Documentation Only [facility], [address] [place] [address] Melissa Delgadillo [address] [place] [phone] Social History Tobacco Use Types Packs/Day Years [...] on filedocumented in this encounter Care Teams Commercial Decorator Relationship Specialty Start Date End Date Dandre Chavez MD [address] [place] [address], [address] [place], [place] PCP - General 07/07/19 documented as of this encounter
--- OUTSIDE RECORDS SUMMARY | 2025-05-20 05:37 | XMS_ITS | Encounter Summary ---
Author Organization [facility] Address [id number] [place] [address] Care Team Providers Care Deckhand Clam Dredge Name Role Phone Amina Burciaga MD Primary Care Provider [phone] Encounter Details Date Type Department Care Team (Late st Contact Info) Description 07/20/2024 Lab Requisition [facility] - Main Lab 299 [facility] [place] [address] Hortencia Mcclellan MD 819 [facility] 1 [place], [place] [phone] Type 2 diabetes mellitus without complications (CMS/HCC [...] mmol/L LAB CHEMISTRY METHOD 07/21/2024 8:50 AM [facility] Potassium 4.5 3.5 - 5.5 mmol/L LAB CHEMISTRY METHOD 07/21/2024 8:50 AM [facility] Chloride 108 96 - 110 mmol/L LAB CHEMISTRY METHOD 07/21/2024 8:50 AM [facility] CO2 27 21 - 32 mmol/L LAB CHEMISTRY METHOD 07/21/2024 8:50 AM [facility] Anion Gap 5 3 - 11 LAB CHEMISTRY METHOD 07/21/2024 8:50 AM [facility] Glucose 71 70 - 100 mg/dL LAB CHEMISTRY METHOD 07/21/2024 8:50 AM [facility] BUN 68(H) 5 - 25 mg/dL LAB CHEMISTRY METHOD 07/21/2024 8:50 AM [facility] Creatinine 3.00(H) 0.50 - 1.10 mg/dL LAB CHEMISTRY METHOD 07/21/2024 8:50 AM [facility] eGFR 16(L) >=60 mL/min/1. 73m2 LAB CHEMISTRY METHOD 07/21/2024 8:50 AM [facility] Comment:Calculation based on the Chronic Kidney Disease Epidemiology Collaboration (CKD-EPI) equation refit without adjustment for race. BUN/Creatinine Ratio 22.7 LAB CHEMISTRY METHOD 07/21/2024 8:50 AM [facility] Calcium 9.1 8.5 - 10.5 mg/dL LAB CHEMISTRY METHOD 07/21/2024 8:50 AM [facility] Blood Venous blood specimen / Unknown Venipuncture / Unknown 07/21/2024 5:53 AM EST 07/21/2024 7:55 AM EST us Hortencia Mcclellan MD LAB BLOOD ORDERABLES Fin al Result [facility] 299 [place] [address], * (ABNORMAL) Complete blood count (07/21/2024 5:53 AM EST) [facility] WBC 5.0 4.8 - 10.8 K/mcL LAB HEMETOLOGY METHOD 07/21/2024 8:26 AM [facility] RBC 2.90(L) 3.80 - 4.80 M/mcL LAB HEMETOLOGY METHOD 07/21/2024 8:26 AM [facility] Hemoglobin 8.2(L) 11.5 - 16.0 g/dL LAB HEMETOLOGY METHOD 07/21/2024 8:26 AM [facility] Hematocrit 29.0(L) 35.0 - 47.0 % LAB HEMETOLOGY METHOD 07/21/2024 8:26 AM [facility] MCV 100.7(H) 79.0 - 98.0 FL LAB HEMETOLOGY METHOD 07/21/2024 8:26 AM [facility] MCH 28.5 27.0 - 32.0 pcg LAB HEMETOLOGY METHOD 07/21/2024 8:26 AM [facility] MCHC 28.3(L) 32.0 - 37.0 g/dL LAB HEMETOLOGY METHOD 07/21/2024 8:26 AM [facility] RDW 19.2(H) 11.0 - 15.0 % LAB HEMETOLOGY METHOD 07/21/2024 8:26 AM [facility] Platelets 223 130 - 400 K/mcL LAB HEMETOLOGY METHOD 07/21/2024 8:26 AM [facility] MPV 10.0 7.0 - 11.0 FL LAB HEMETOLOGY METHOD 07/21/2024 8:26 AM [facility] NRBC 0.0 <1.0 % LAB HEMETOLOGY METHOD 07/21/2024 8:26 AM EST [facility] NRBC Absolute 0.00 <0.10 K/mcL LAB HEMETOLOGY METHOD 07/21/2024 8:26 AM EST [facility] Blood Venous blood specimen / Unknown Venipuncture / Unknown 07/21/2024 5:53 AM EST 07/21/2024 7:55 AM EST us Hortencia Mcclellan MD LAB BLOOD ORDERABLES Fin al Result [facility] 299 [place] [address], documented in this encounter Visit Diagnoses Diagnosis Type 2 diabetes mellitus without complications (CMS/HCC V24, CMS/HCC V28) Heart failure, unspecified (CMS/HCC V24, CMS/HCC V28) Heart failure, unspecified documented in this encounter Care Teams Deckhand Clam Dredge Relationship Specialty Start Date End Date Amina Burciaga MD [address] [place] [address] PCP - General Hospitalist Medicine 09/11/24 documented as of this encounter
--- OUTSIDE RECORDS SUMMARY | 2025-05-20 05:37 | XMS_ITS | Encounter Summary ---
Author Organization [facility] Address [address] [place] [address] Phone Care Team Providers Care Dental Equipment Mechanic Name Role Phone Dandre Chavez MD Primary Care Provider [phone] Miguel Enciso MD Unavailable [phone] Encounter Details Date Type Department Care Team (Late st Contact Info) Description 12/20/2022 Procedure Pass Non-Invasive Cardiology 22 [place], [place] [id number] Social History Tobacco Use Types Packs/Day Years [...] on filedocumented in this encounter Care Teams Dental Equipment Mechanic Relationship Specialty Start Date End Date Dandre Chavez MD [address] [place] [address] [id number] PCP - General 09/05/17 Miguel Enciso MD [address] [place] [address], [address] [place], [place] [phone] Cardiology 05/28/24 documented as of this encounter Additional Source Comments The information contained in this document represents components of the legal health record. It is not the complete legal health record.[facility]
--- OUTSIDE RECORDS SUMMARY | 2025-05-20 05:37 | XMS_ITS | Encounter Summary ---
Author Organization [facility] Address [address] [place] [address] Phone Care Team Providers Care Preschool Lead Teacher Name Role Phone Dandre Chavez MD Primary Care Provider [phone] Miguel Enciso MD Unavailable Encounter Details Date Type Department Care Team (Late st Contact Info) Description 12/21/2022 Procedure Pass Echo Lab [address] [phone] Social History Tobacco Use Types Packs/Day Years [...] on filedocumented in this encounter Care Teams Preschool Lead Teacher Relationship Specialty Start Date End Date Dandre Chavez MD [address] [place] [address] [id number] PCP - General 09/05/17 Miguel Enciso MD 22 [facility], [address] [place], [place] [phone] Cardiology 05/28/24 documented as of this encounter Additional Source Comments The information contained in this document represents components of the legal health record. It is not the complete legal health record.[facility]
--- OUTSIDE RECORDS SUMMARY | 2025-05-20 05:37 | XMS_ITS | Encounter Summary ---
Author Organization [facility], Address [address] [place] [address] Phone Care Team Providers Care Brush Cutter Name Role Phone Dandre Chavez MD Primary Care Provider [phone] Encounter Details Date Type Department Care Team (Late st Contact Info) Description 09/25/2021 Documentation Only [facility], [address] [place] [address] Faina Villegas PA Social History Tobacco Use [...] on filedocumented in this encounter Care Teams Brush Cutter Relationship Specialty Start Date End Date Dandre Chavez MD [address] [place] [address], [address] [place], [place] PCP - General 07/07/19 documented as of this encounter
--- OUTSIDE RECORDS SUMMARY | 2025-05-20 05:37 | XMS_ITS | Encounter Summary ---
Author Organization [facility], Address [address] [place] [address] Phone Care Team Providers Care Prepress Specialist Name Role Phone Dandre Chavez MD Primary Care Provider [phone] Encounter Details Date Type Department Care Team (Late st Contact Info) Description 08/02/2022 Documentation Only [facility], [address] [place] [address] Faina Villegas PA Social History Tobacco Use [...] filedocumented in this encounter Care Teams Prepress Specialist Relationship Specialty Start Date End Date Dandre Chavez MD [address] [place] [address], [address] [place], [place] PCP - General 07/07/19 documented as of this encounter
--- OUTSIDE RECORDS SUMMARY | 2025-05-20 05:37 | XMS_ITS | Encounter Summary ---
Author Organization [facility], Address [address] [place] [address] Phone Care Team Providers Care School Psychology Professor Name Role Phone Dandre Chavez MD Primary Care Provider [phone] Encounter Details Date Type Department Care Team (Late st Contact Info) Description 10/12/2021 Documentation Only [facility], [address] [place] [address] Faina Villegas PA Social History Tobacco Use [...] on filedocumented in this encounter Care Teams School Psychology Professor Relationship Specialty Start Date End Date Dandre Chavez MD [address] [place] [address], [address] [place], [place] PCP - General 07/07/19 documented as of this encounter
--- OUTSIDE RECORDS SUMMARY | 2025-05-20 05:37 | XMS_ITS | Encounter Summary ---
Author Organization [facility] Address [address] [place] [address] Care Team Providers Care Community Outreach Manager Name Role Phone Amina Burciaga MD Primary Care Provider [phone] Encounter Details Date Type Department Care Team (Late st Contact Info) Description 07/27/2024 Lab Requisition [facility] - Main Lab 299 [facility] [place] [address] Hortencia Mcclellan MD [address] [phone] Type 2 diabetes mellitus without complications (CMS/HCC [...] mmol/L LAB CHEMISTRY METHOD 07/28/2024 8:47 AM [facility] Potassium 4.3 3.5 - 5.5 mmol/L LAB CHEMISTRY METHOD 07/28/2024 8:47 AM [facility] Chloride 107 96 - 110 mmol/L LAB CHEMISTRY METHOD 07/28/2024 8:47 AM [facility] CO2 25 21 - 32 mmol/L LAB CHEMISTRY METHOD 07/28/2024 8:47 AM [facility] Anion Gap 10 3 - 11 LAB CHEMISTRY METHOD 07/28/2024 8:47 AM [facility] Glucose 49(L) 70 - 100 mg/dL LAB CHEMISTRY METHOD 07/28/2024 8:47 AM [facility] BUN 45(H) 5 - 25 mg/dL LAB CHEMISTRY METHOD 07/28/2024 8:47 AM [facility] Creatinine 2.36(H) 0.50 - 1.10 mg/dL LAB CHEMISTRY METHOD 07/28/2024 8:47 AM [facility] eGFR 21(L) >=60 mL/min/1. 73m2 LAB CHEMISTRY METHOD 07/28/2024 8:47 AM [facility] Comment:Calculation based on the Chronic Kidney Disease Epidemiology Collaboration (CKD-EPI) equation refit without adjustment for race. BUN/Creatinine Ratio 19.1 LAB CHEMISTRY METHOD 07/28/2024 8:47 AM [facility] Calcium 9.2 8.5 - 10.5 mg/dL LAB CHEMISTRY METHOD 07/28/2024 8:47 AM [facility] Blood Venous blood specimen / Unknown Venipuncture / Unknown 07/28/2024 5:41 AM EST 07/28/2024 8:02 AM EST us Hortencia Mcclellan MD LAB BLOOD ORDERABLES Fin al Result [facility] [address] [place] [address], * (ABNORMAL) Complete blood count (07/28/2024 5:41 AM EST) [facility] WBC 4.1(L) 4.8 - 10.8 K/mcL LAB HEMETOLOGY METHOD 07/28/2024 8:20 AM [facility] RBC 3.00(L) 3.80 - 4.80 M/mcL LAB HEMETOLOGY METHOD 07/28/2024 8:20 AM [facility] Hemoglobin 8.6(L) 11.5 - 16.0 g/dL LAB HEMETOLOGY METHOD 07/28/2024 8:20 AM [facility] Hematocrit 29.9(L) 35.0 - 47.0 % LAB HEMETOLOGY METHOD 07/28/2024 8:20 AM [facility] MCV 99.7(H) 79.0 - 98.0 FL LAB HEMETOLOGY METHOD 07/28/2024 8:20 AM [facility] MCH 28.7 27.0 - 32.0 pcg LAB HEMETOLOGY METHOD 07/28/2024 8:20 AM [facility] MCHC 28.8(L) 32.0 - 37.0 g/dL LAB HEMETOLOGY METHOD 07/28/2024 8:20 AM [facility] RDW 19.6(H) 11.0 - 15.0 % LAB HEMETOLOGY METHOD 07/28/2024 8:20 AM [facility] Platelets 162 130 - 400 K/mcL LAB HEMETOLOGY METHOD 07/28/2024 8:20 AM [facility] MPV 10.5 7.0 - 11.0 FL LAB HEMETOLOGY METHOD 07/28/2024 8:20 AM [facility] NRBC 0.0 <1.0 % LAB HEMETOLOGY METHOD 07/28/2024 8:20 AM EST [facility] NRBC Absolute 0.00 <0.10 K/mcL LAB HEMETOLOGY METHOD 07/28/2024 8:20 AM EST [facility] Blood Venous blood specimen / Unknown Venipuncture / Unknown 07/28/2024 5:41 AM EST 07/28/2024 8:02 AM EST us Hortencia Mcclellan MD LAB BLOOD ORDERABLES Fin al Result [facility] [address] [place] [address], documented in this encounter Visit Diagnoses Diagnosis Type 2 diabetes mellitus without complications (CMS/HCC V24, CMS/HCC V28) Heart failure, unspecified (CMS/HCC V24, CMS/HCC V28) Heart failure, unspecified documented in this encounter Care Teams Community Outreach Manager Relationship Specialty Start Date End Date Amina Burciaga MD [address] [place] [address] PCP - General Hospitalist Medicine 09/11/24 documented as of this encounter
--- OUTSIDE RECORDS SUMMARY | 2025-05-20 05:37 | XMS_ITS | Encounter Summary ---
Author Organization [facility], Address [address] [place] [address] Phone Care Team Providers Care Cotton Inspector Name Role Phone Dandre Chavez MD Primary Care Provider Encounter Details Date Type Department Care Team (Late st Contact Info) Description 02/09/2022 Documentation Only [facility], [address] [place] [address] Faina Villegas PA Social History Tobacco Use [...] on filedocumented in this encounter Care Teams Cotton Inspector Relationship Specialty Start Date End Date Dandre Chavez MD [address] [place] [address], [address] [place], [place] PCP - General 07/07/19 documented as of this encounter
--- OUTSIDE RECORDS SUMMARY | 2025-05-20 05:37 | XMS_ITS | Encounter Summary ---
Author Organization [facility] Address [address] [place] [address] Phone Care Team Providers Care Manager Privacy Name Role Phone Dandre Chavez MD Primary Care Provider [phone] Miguel Enciso MD Unavailable [phone] Encounter Details Date Type Department Care Team (Late st Contact Info) Description 08/18/2021 Procedure Pass Echo Lab [address] [phone] Social History Tobacco Use Types Packs/Day Years [...] on filedocumented in this encounter Care Teams Manager Privacy Relationship Specialty Start Date End Date Dandre Chavez MD [address] [place] [address] [phone] PCP - General 09/05/17 Miguel Enciso MD [address] [place] [address], [address] [place], [place] [phone] Cardiology 05/28/24 documented as of this encounter Additional Source Comments The information contained in this document represents components of the legal health record. It is not the complete legal health record.[facility]
--- OUTSIDE RECORDS SUMMARY | 2025-05-20 05:37 | XMS_ITS | Encounter Summary ---
Author Organization [facility] Address [address] [place] [address] Phone Care Team Providers Care Food Mixer Name Role Phone Dandre Chvaez MD Primary Care Provider [phone] Miguel Enciso MD Unavailable [phone] Encounter Details Date Type Department Care Team (Late st Contact Info) Description 04/03/2022 Procedure Pass [facility] 30 [place] [address] Social History Tobacco Use Types Packs/Day Years [...] on filedocumented in this encounter Care Teams Food Mixer Relationship Specialty Start Date End Date Dandre Chavez MD [address] [phone] PCP - General 09/05/17 Miguel Enciso MD [address] [place] [address], [address] [place], [place] [phone] Cardiology 05/28/24 documented as of this encounter Additional Source Comments The information contained in this document represents components of the legal health record. It is not the complete legal health record.[facility]
--- OUTSIDE RECORDS SUMMARY | 2025-05-20 05:37 | XMS_ITS | Encounter Summary ---
Author Organization [facility], Address [address] [place] [address] Phone Care Team Providers Care Breastfeeding Program Coordinator Name Role Phone Dandre Chavez MD Primary Care Provider [phone] Encounter Details Date Type Department Care Team (Late st Contact Info) Description 02/08/2022 Documentation Only [facility], [address] [place] [address] Faina Villegas PA Social History Tobacco Use [...] on filedocumented in this encounter Care Teams Breastfeeding Program Coordinator Relationship Specialty Start Date End Date Dandre Chavez MD [address] [place] [address], [address] [place], [place] PCP - General 07/07/19 documented as of this encounter
--- OUTSIDE RECORDS SUMMARY | 2025-05-20 05:37 | XMS_ITS | Encounter Summary ---
Author Organization [facility] Address [address] [place] [address] Care Team Providers Care Websphere Developer Name Role Phone Amina Burciaga MD Primary Care Provider [phone] Encounter Details Date Type Department Care Team (Late st Contact Info) Description 07/13/2024 Lab Requisition [facility] - Main Lab 299 [facility] [place] [address] Hortencia Mcclellan MD [address] [phone] Type 2 diabetes mellitus without complications (CMS/HCC [...] mmol/L LAB CHEMISTRY METHOD 07/14/2024 9:03 AM [facility] Potassium 3.8 3.5 - 5.5 mmol/L LAB CHEMISTRY METHOD 07/14/2024 9:03 AM [facility] Chloride 105 96 - 110 mmol/L LAB CHEMISTRY METHOD 07/14/2024 9:03 AM [facility] CO2 28 21 - 32 mmol/L LAB CHEMISTRY METHOD 07/14/2024 9:03 AM [facility] Anion Gap 6 3 - 11 LAB CHEMISTRY METHOD 07/14/2024 9:03 AM [facility] Glucose 105(H) 70 - 100 mg/dL LAB CHEMISTRY METHOD 07/14/2024 9:03 AM [facility] BUN 70(H) 5 - 25 mg/dL LAB CHEMISTRY METHOD 07/14/2024 9:03 AM [facility] Creatinine 3.26(H) 0.50 - 1.10 mg/dL LAB CHEMISTRY METHOD 07/14/2024 9:03 AM [facility] eGFR 14(L) >=60 mL/min/1. 73m2 LAB CHEMISTRY METHOD 07/14/2024 9:03 AM [facility] Comment:Calculation based on the Chronic Kidney Disease Epidemiology Collaboration (CKD-EPI) equation refit without adjustment for race. BUN/Creatinine Ratio 21.5 LAB CHEMISTRY METHOD 07/14/2024 9:03 AM [facility] Calcium 8.6 8.5 - 10.5 mg/dL LAB CHEMISTRY METHOD 07/14/2024 9:03 AM [facility] Blood Venous blood specimen / Unknown Venipuncture / Unknown 07/14/2024 6:08 AM EST 07/14/2024 8:03 AM EST us Hortencia Mcclellan MD LAB BLOOD ORDERABLES Fin al Result [facility] [address] [place] [address], * (ABNORMAL) Complete blood count (07/14/2024 6:08 AM EST) [facility] WBC 5.3 4.8 - 10.8 K/mcL LAB HEMETOLOGY METHOD 07/14/2024 8:32 AM [facility] RBC 3.00(L) 3.80 - 4.80 M/mcL LAB HEMETOLOGY METHOD 07/14/2024 8:32 AM [facility] Hemoglobin 8.3(L) 11.5 - 16.0 g/dL LAB HEMETOLOGY METHOD 07/14/2024 8:32 AM [facility] Hematocrit 29.9(L) 35.0 - 47.0 % LAB HEMETOLOGY METHOD 07/14/2024 8:32 AM [facility] MCV 101.4(H) 79.0 - 98.0 FL LAB HEMETOLOGY METHOD 07/14/2024 8:32 AM [facility] MCH 28.1 27.0 - 32.0 pcg LAB HEMETOLOGY METHOD 07/14/2024 8:32 AM [facility] MCHC 27.8(L) 32.0 - 37.0 g/dL LAB HEMETOLOGY METHOD 07/14/2024 8:32 AM [facility] RDW 20.0(H) 11.0 - 15.0 % LAB HEMETOLOGY METHOD 07/14/2024 8:32 AM [facility] Platelets 198 130 - 400 K/mcL LAB HEMETOLOGY METHOD 07/14/2024 8:32 AM [facility] MPV 10.3 7.0 - 11.0 FL LAB HEMETOLOGY METHOD 07/14/2024 8:32 AM [facility] NRBC 0.0 <1.0 % LAB HEMETOLOGY METHOD 07/14/2024 8:32 AM EST [facility] NRBC Absolute 0.00 <0.10 K/mcL LAB HEMETOLOGY METHOD 07/14/2024 8:32 AM EST [facility] Blood Venous blood specimen / Unknown Venipuncture / Unknown 07/14/2024 6:08 AM EST 07/14/2024 8:03 AM EST us Hortencia Mcclellan MD LAB BLOOD ORDERABLES Fin al Result [facility] [address] [place] [address], documented in this encounter Visit Diagnoses Diagnosis Type 2 diabetes mellitus without complications (CMS/HCC V24, CMS/HCC V28) Heart failure, unspecified (CMS/HCC V24, CMS/HCC V28) Heart failure, unspecified documented in this encounter Care Teams Websphere Developer Relationship Specialty Start Date End Date Amina Burciaga MD [address] [place] [address] PCP - General Hospitalist Medicine 09/11/24 documented as of this encounter
--- OUTSIDE RECORDS SUMMARY | 2025-05-20 05:37 | XMS_ITS | Encounter Summary ---
Author Organization [facility] Address [address] [place] [address] [place], [place] [address] [place] [address] Phone Care Team Providers Care Airport Electrician Name Role Phone Dandre Chavez MD Primary Care Provider [phone] Miguel Enciso MD Unavailable [phone] Encounter Details Date Type Department Care Team (Late st Contact Info) Description 07/01/2024 Procedure Pass [facility] Cardiology Referral Images [address] [facility] [address] [place] [address] Social History Tobacco Use Types Packs/Day Years [...] filedocumented in this encounter Care Teams Airport Electrician Relationship Specialty Start Date End Date Dandre Chavez MD [address] [place] [address] PCP - General 09/05/17 Miguel Enciso MD [address] [place] [address] [email or web address] Cardiology 05/28/24 documented as of this encounter Additional Source Comments The information contained in this document represents components of the legal health record. It is not the complete legal health record.[facility]
--- OUTSIDE RECORDS SUMMARY | 2025-05-20 05:37 | XMS_ITS | Encounter Summary ---
Author Organization [facility] Address [address] [place] [address] Care Team Providers Care Aitchbone Breaker Name Role Phone Amina Burciaga MD Primary Care Provider [phone] Encounter Details Date Type Department Care Team (Late st Contact Info) Description 07/23/2024 Lab Requisition [facility] - Main Lab [address] [place] [address] Hortencia Mcclellan MD [address] [phone] Chronic kidney disease, unspecified; Type 2 diabetes [...] LAB CHEMISTRY METHOD 07/23/2024 9:13 AM EST [facility] Potassium 3.8 3.5 - 5.5 mmol/L LAB CHEMISTRY METHOD 07/23/2024 9:13 AM EST [facility] Chloride 111(H) 96 - 110 mmol/L LAB CHEMISTRY METHOD 07/23/2024 9:13 AM [facility] CO2 27 21 - 32 mmol/L LAB CHEMISTRY METHOD 07/23/2024 9:13 AM [facility] Anion Gap 6 3 - 11 LAB CHEMISTRY METHOD 07/23/2024 9:13 AM [facility] Glucose 64(L) 70 - 100 mg/dL LAB CHEMISTRY METHOD 07/23/2024 9:13 AM [facility] BUN 62(H) 5 - 25 mg/dL LAB CHEMISTRY METHOD 07/23/2024 9:13 AM [facility] Creatinine 2.70(H) 0.50 - 1.10 mg/dL LAB CHEMISTRY METHOD 07/23/2024 9:13 AM [facility] eGFR 18(L) >=60 mL/min/1. 73m2 LAB CHEMISTRY METHOD 07/23/2024 9:13 AM [facility] Comment:Calculation based on the Chronic Kidney Disease Epidemiology Collaboration (CKD-EPI) equation refit without adjustment for race. BUN/Creatinine Ratio 23.0 LAB CHEMISTRY METHOD 07/23/2024 9:13 AM [facility] Calcium 9.2 8.5 - 10.5 mg/dL LAB CHEMISTRY METHOD 07/23/2024 9:13 AM [facility] Blood Venous blood specimen / Unknown Venipuncture / Unknown 07/23/2024 5:52 AM EST 07/23/2024 8:17 AM EST us Hortencia Mcclellan MD LAB BLOOD ORDERABLES Fin al Result [facility] [address] [place] [address], documented in this encounter Visit Diagnoses Diagnosis Chronic kidney disease, unspecified Type 2 diabetes mellitus without complications (CMS/HCC V24, CMS/HCC V28) documented in this encounter Care Teams Aitchbone Breaker Relationship Specialty Start Date End Date Amina Burciaga MD [address] [place] [phone] PCP - General Hospitalist Medicine 09/11/24 documented as of this encounter
--- OUTSIDE RECORDS SUMMARY | 2025-05-20 05:37 | XMS_ITS | Encounter Summary ---
Author Organization [facility], Address [address] [place] [address] Phone Care Team Providers Care Rn Emergency Room Name Role Phone Dandre Chavez MD Primary Care Provider [phone] Encounter Details Date Type Department Care Team (Late st Contact Info) Description 12/31/2022 Documentation Only [facility], [address] [place] [address] Melissa Delgadillo [address] [place] [phone] Social History Tobacco Use Types Packs/Day Years [...] filedocumented in this encounter Care Teams Rn Emergency Room Relationship Specialty Start Date End Date Dandre Chavez MD [address] [place] [address], [address] [place], [place] PCP - General 07/07/19 documented as of this encounter
--- OUTSIDE RECORDS SUMMARY | 2025-05-20 05:37 | XMS_ITS | Encounter Summary ---
Author Organization [facility] Address [address] [place] [address] Care Team Providers Care Local Announcer Name Role Phone Amina Burciaga MD Primary Care Provider [phone] Encounter Details Date Type Department Care Team (Late st Contact Info) Description 08/03/[address] [facility] - Main Lab [address] [facility] [place] [address] Hortencia Mcclellan MD [address] [id number] Type 2 diabetes mellitus without complications (CMS/HCC [...] mmol/L LAB CHEMISTRY METHOD 08/04/2024 9:42 AM [facility] Potassium 3.6 3.5 - 5.5 mmol/L LAB CHEMISTRY METHOD 08/04/2024 9:42 AM [facility] Chloride 106 96 - 110 mmol/L LAB CHEMISTRY METHOD 08/04/2024 9:42 AM [facility] CO2 29 21 - 32 mmol/L LAB CHEMISTRY METHOD 08/04/2024 9:42 AM [facility] Anion Gap 8 3 - 11 LAB CHEMISTRY METHOD 08/04/2024 9:42 AM [facility] Glucose 64(L) 70 - 100 mg/dL LAB CHEMISTRY METHOD 08/04/2024 9:42 AM [facility] BUN 44(H) 5 - 25 mg/dL LAB CHEMISTRY METHOD 08/04/2024 9:42 AM [facility] Creatinine 2.43(H) 0.50 - 1.10 mg/dL LAB CHEMISTRY METHOD 08/04/2024 9:42 AM [facility] eGFR 20(L) >=60 mL/min/1. 73m2 LAB CHEMISTRY METHOD 08/04/2024 9:42 AM [facility] Comment:Calculation based on the Chronic Kidney Disease Epidemiology Collaboration (CKD-EPI) equation refit without adjustment for race. BUN/Creatinine Ratio 18.1 LAB CHEMISTRY METHOD 08/04/2024 9:42 AM [facility] Calcium 8.8 8.5 - 10.5 mg/dL LAB CHEMISTRY METHOD 08/04/2024 9:42 AM [facility] Blood Venous blood specimen / Unknown Venipuncture / Unknown 08/04/2024 6:38 AM EST 08/04/2024 8:24 AM EST us Hortencia Mcclellan MD LAB BLOOD ORDERABLES Fin al Result [facility] [address] [place] [address], * (ABNORMAL) Complete blood count (08/04/2024 6:38 AM EST) [facility] WBC 4.5(L) 4.8 - 10.8 K/mcL LAB HEMETOLOGY METHOD 08/04/2024 9:19 AM [facility] RBC 3.20(L) 3.80 - 4.80 M/mcL LAB HEMETOLOGY METHOD 08/04/2024 9:19 AM [facility] Hemoglobin 9.0(L) 11.5 - 16.0 g/dL LAB HEMETOLOGY METHOD 08/04/2024 9:19 AM [facility] Hematocrit 31.8(L) 35.0 - 47.0 % LAB HEMETOLOGY METHOD 08/04/2024 9:19 AM [facility] MCV 100.0(H) 79.0 - 98.0 FL LAB HEMETOLOGY METHOD 08/04/2024 9:19 AM [facility] MCH 28.3 27.0 - 32.0 pcg LAB HEMETOLOGY METHOD 08/04/2024 9:19 AM [facility] MCHC 28.3(L) 32.0 - 37.0 g/dL LAB HEMETOLOGY METHOD 08/04/2024 9:19 AM [facility] RDW 18.9(H) 11.0 - 15.0 % LAB HEMETOLOGY METHOD 08/04/2024 9:19 AM [facility] Platelets 188 130 - 400 K/mcL LAB HEMETOLOGY METHOD 08/04/2024 9:19 AM [facility] MPV 10.6 7.0 - 11.0 FL LAB HEMETOLOGY METHOD 08/04/2024 9:19 AM [facility] NRBC 0.0 <1.0 % LAB HEMETOLOGY METHOD 08/04/2024 9:[address] [facility] NRBC Absolute 0.00 <0.10 K/mcL LAB HEMETOLOGY METHOD 08/04/2024 9:[address] [facility] Blood Venous blood specimen / Unknown Venipuncture / Unknown 08/04/2024 6:38 AM EST 08/04/2024 8:24 AM EST us Hortencia Mcclellan MD LAB BLOOD ORDERABLES Fin al Result [facility] [address] [place] [address], documented in this encounter Visit Diagnoses Diagnosis Type 2 diabetes mellitus without complications (CMS/HCC V24, CMS/HCC V28) Heart failure, unspecified (CMS/HCC V24, CMS/HCC V28) Heart failure, unspecified documented in this encounter Care Teams Local Announcer Relationship Specialty Start Date End Date Amina Burciaga MD [address] [place] [address] PCP - General Hospitalist Medicine 09/11/24 documented as of this encounter
--- OUTSIDE RECORDS SUMMARY | 2025-05-20 05:37 | XMS_ITS | Encounter Summary ---
Author Organization [facility] Address [address] [place] [address] Phone Care Team Providers Care Boat Finisher Name Role Phone Dandre Chavez MD Primary Care Provider [phone] Miguel Enciso MD Unavailable [phone] Encounter Details Date Type Department Care Team (Late st Contact Info) Description 09/18/2019 Ancillary Orders [facility] [address] Floor [place], [place] [phone] Miguel Enciso MD [address] [place] [address], [address] [place], [place] [phone] [email or web address] PVD (peripheral vascular disease) Social History Tobacco [...] disease documented in this encounter Care Teams Boat Finisher Relationship Specialty Start Date End Date Dandre Chavez MD [address] [place] [address] PCP - General 09/05/17 Miguel Enciso MD [address] [place] [address] [address] [place] [address] Cardiology 05/28/24 documented as of this encounter Additional Source Comments The information contained in this document represents components of the legal health record. It is not the complete legal health record.[facility]
--- OUTSIDE RECORDS SUMMARY | 2025-05-20 05:37 | XMS_ITS | Encounter Summary ---
Author Organization [facility] [place], Address [address] [place] [address] Phone Care Team Providers Care Power Chisel Operator Name Role Phone Dandre Chavez MD Primary Care Provider [phone] Encounter Details Date Type Department Care Team (Late st Contact Info) Description 10/10/2021 Documentation Only [facility], [address] [place] [address] Faina Villegas PA Social History Tobacco Use [...] on filedocumented in this encounter Care Teams Power Chisel Operator Relationship Specialty Start Date End Date Dandre Chavez MD [address] [place] [address], [address] [place], [place] PCP - General 07/07/19 documented as of this encounter
--- OUTSIDE RECORDS SUMMARY | 2025-05-20 05:37 | XMS_ITS | Encounter Summary ---
Author Organization [facility] Address [address] [place], [place] [address] [place] [address] Phone Care Team Providers Care Sugar Mixer Name Role Phone Dandre Chavez MD Primary Care Provider [phone] Miguel Enciso MD Unavailable [phone] Encounter Details Date Type Department Care Team (Late st Contact Info) Description 07/01/2024 Procedure Pass [facility] Cardiology Referral Images [address] [facility] [address] [place] [address] Social History Tobacco Use Types Packs/Day Years [...] on filedocumented in this encounter Care Teams Sugar Mixer Relationship Specialty Start Date End Date Dandre Chavez MD [address] [place] [address] PCP - General 09/05/17 Miguel Enciso MD [address] [place] [address] [email or web address] Cardiology 05/28/24 documented as of this encounter Additional Source Comments The information contained in this document represents components of the legal health record. It is not the complete legal health record.[facility]
--- OUTSIDE RECORDS SUMMARY | 2025-05-20 05:37 | XMS_ITS | Encounter Summary ---
Author Organization [facility] Address [address] [place] [address] Care Team Providers Care Wool Dyer Name Role Phone Amina Burciaga MD Primary Care Provider [phone] Encounter Details Date Type Department Care Team (Late st Contact Info) Description 07/10/[address] [facility] - Main Lab [address] [facility] [place] [address] Lloyd Jernigan MD [address] [place] [address] Unspecified dementia, unspecified severity, without behavioral disturbance, [...] mmol/L LAB CHEMISTRY METHOD 07/10/2024 9:59 AM [facility] Potassium 4.4 3.5 - 5.5 mmol/L LAB CHEMISTRY METHOD 07/10/2024 9:59 AM [facility] Chloride 103 96 - 110 mmol/L LAB CHEMISTRY METHOD 07/10/2024 9:59 AM [facility] CO2 31 21 - 32 mmol/L LAB CHEMISTRY METHOD 07/10/2024 9:59 AM [facility] Anion Gap 5 3 - 11 LAB CHEMISTRY METHOD 07/10/2024 9:59 AM [facility] Glucose 115(H) 70 - 100 mg/dL LAB CHEMISTRY METHOD 07/10/2024 9:59 AM [facility] BUN 62(H) 5 - 25 mg/dL LAB CHEMISTRY METHOD 07/10/2024 9:59 AM [facility] Creatinine 2.86(H) 0.50 - 1.10 mg/dL LAB CHEMISTRY METHOD 07/10/2024 9:59 AM [facility] eGFR 16(L) >=60 mL/min/1. 73m2 LAB CHEMISTRY METHOD 07/10/2024 9:59 AM [facility] Comment:Calculation based on the Chronic Kidney Disease Epidemiology Collaboration (CKD-EPI) equation refit without adjustment for race. BUN/Creatinine Ratio 21.7 LAB CHEMISTRY METHOD 07/10/2024 9:59 AM [facility] Calcium 9.3 8.5 - 10.5 mg/dL LAB CHEMISTRY METHOD 07/10/2024 9:59 AM [facility] Blood Venous blood specimen / Unknown Venipuncture / Unknown 07/10/2024 6:29 AM EST 07/10/2024 9:00 AM EST us Lloyd Jernigan MD LAB BLOOD ORDERABLES Final R esult [facility] [address] [place] [address], * (ABNORMAL) Complete blood count (07/10/2024 6:29 AM EST) WBC 5.3 4.8 - 10.8 K/mcL LAB HEMETOLOGY METHOD 07/10/2024 9:47 AM [facility] RBC 3.20(L) 3.80 - 4.80 M/mcL LAB HEMETOLOGY METHOD 07/10/2024 9:47 AM [facility] Hemoglobin 8.9(L) 11.5 - 16.0 g/dL LAB HEMETOLOGY METHOD 07/10/2024 9:47 AM [facility] Hematocrit 32.0(L) 35.0 - 47.0 % LAB HEMETOLOGY METHOD 07/10/2024 9:47 AM [facility] MCV 101.6(H) 79.0 - 98.0 FL LAB HEMETOLOGY METHOD 07/10/2024 9:47 AM [facility] MCH 28.3 27.0 - 32.0 pcg LAB HEMETOLOGY METHOD 07/10/2024 9:47 AM [facility] MCHC 27.8(L) 32.0 - 37.0 g/dL LAB HEMETOLOGY METHOD 07/10/2024 9:47 AM [facility] RDW 20.3(H) 11.0 - 15.0 % LAB HEMETOLOGY METHOD 07/10/2024 9:47 AM [facility] Platelets 239 130 - 400 K/mcL LAB HEMETOLOGY METHOD 07/10/2024 9:47 AM [facility] MPV 10.2 7.0 - 11.0 FL LAB HEMETOLOGY METHOD 07/10/2024 9:47 AM EST [facility] NRBC 0.0 <1.0 % LAB HEMETOLOGY METHOD 07/10/2024 9:47 AM EST [facility] NRBC Absolute 0.00 <0.10 K/mcL LAB HEMETOLOGY METHOD 07/10/2024 9:47 AM EST [facility] Blood Venous blood specimen / Unknown Venipuncture / Unknown 07/10/2024 6:29 AM EST 07/10/2024 9:00 AM EST Lloyd Jernigan MD LAB BLOOD ORDERABLES Final R esult Performing Organization Address City/[facility]/ZIP Co de Phone Number [facility] [address] [place] [address], [place] [phone] * Hemoglobin A1c (07/10/2024 6:29 AM EST) Hemoglobin A1C 5.7 <6.5 % LAB CHEMISTRY METHOD 07/10/2024 1:42 PM EST [facility] Mean Bld Glu Estim. 117 mg/dL LAB CHEMISTRY METHOD 07/10/2024 1:42 PM EST [facility] Blood Venous blood specimen / Unknown Venipuncture / Unknown 07/10/2024 6:29 AM EST 07/10/2024 9:00 AM EST Lloyd Jernigan MD LAB BLOOD ORDERABLES Final R esult [facility] [address] [place] [address], [place] [phone] documented in this encounter Visit Diagnoses Diagnosis Unspecified dementia, unspecified severity, without behavioral disturbance, psychotic disturbance, mood disturbance, and anxiety (CMS/HCC V24, CMS/HCC V28) documented in this encounter Care Teams Wool Dyer Relationship Specialty Start Date End Date Amina Burciaga MD [address] [place] [address] PCP - General Hospitalist Medicine 09/11/24 documented as of this encounter
--- OUTSIDE RECORDS SUMMARY | 2025-05-20 05:37 | XMS_ITS | Clinical Summary ---
Author Organization [facility] Address [address] [place] [address] Phone Care Team Providers Care Physician Relations Specialist Name Role Phone Dandre Chavez MD Primary Care Provider [phone] Miguel Enciso MD Unavailable [phone] Allergies Active Allergy Reactions Criticality Noted Date [...] Active ferrous sulfate 325 mg (65 mg [place] iron) EC tablet Take 325 mg by [...] focus on healthy food choices. Atherosclerosis of [place] co ronary artery of [place] heart with angina pectoris 10/28/2018 Assessment & [...] (04/14/2020 10:40 PM EDT): History of inferior GA in 2013 with a stent to her [...] LAD. She presented with a non-ST relation GA September 2018 and had a new culprit [...] will need to have this completed at [facility]. She is aware that this [...] December. She will have this completed at [facility] due to having her stress [...] this topic Medical Devices Implanted Type Area Customer Support Consultant Device Identifier Shelf Expiration Date Model / Serial / Lot Sensor Pulmonary Artery Delivery System Cardiomems - [id number] Implanted:Qt y: 1 on 04/03/2022 by Miguel Enciso MD at [facility] Implantable Monitor Left: Arterial [employer] [id number] 12/15/2023 CM PATIENT SYSTEM / [id number] / Description:Pulmonary artery Procedures Procedure Name Priority Date/Time Associated Diagnosis Comments COMPREHENSIVE METABOLIC PANEL Routine 04/18/2022 2:39 PM EDT Atherosclerosis of [place] coronary artery of [place] heart with angina pectoris Essential hypertension Ischemic cardiomyopathy PAD (peripheral artery disease) from Last 3 Months or Most Recently Relevant to Health Maintenance Results * (ABNORMAL) Comprehensive metabolic panel (04/18/2022 2:39 PM EDT) SODIUM 143 133 - 146 mmol/L [facility] POTASSIUM 4.5 3.3 - 5.1 mmol/L [facility] CHLORIDE 100 96 - 108 mmol/L [facility] CO2 34 21 - 35 mmol/L [facility] BUN 38(H) 6 - 19 mg/dL [facility] CREATININE 1.40 0.5 - 1.5 mg/dL [facility] GLUCOSE 163(H) 70 - 99 mg/dL [facility] ALBUMIN 4.0 3.9 - 4.8 g/dL [facility] TOTAL PROTEIN 7.5 6.5 - 8.0 g/dL [facility] CALCIUM 10.1 8.4 - 10.3 mg/dL [facility] ALKALINE PHOSPHATASE 94 39 - 117 U/L [facility] TOTAL BILIRUBIN 0.6 0.0 - 1.2 mg/dL [facility] AST 26 0 - 37 U/L [facility] ALT 12 0 - 40 U/L [facility] GLOBULIN 3.5 1 - 4.8 g/dL [facility] EGFR 39(L) >59 mL/min/1.7 3m2 [facility] Comment:Estimated glomerular filtration rate calculated using the CKD-EPI refit equation. ANION GAP 14 10 - 20 mmol/L [facility] Blood 04/18/2022 2:39 PM EDT 04/18/2022 2:42 PM EDT us Miguel Enciso MD LAB BLOOD ORDERABLES Final Result [facility] [address] [place] [address] from Last 3 Months or Most Recently Relevant to Health Maintenance Insurance MEDICARE PART A & B [place] MEDICARE PREFERRED HMO REPLACEMENT [facility] [address] MEDICARE PART A & B [place] MED[place] PREFERRED HMO REPLACEMENT [facility] [place] [address] MEDICARE PART A & B Member Subscriber Plan / Payer (Ef fective 2012-Present) Name:Amina Zamora Member ID:[id number] Relation to Subscriber:Self Name:Amina Zamora Subscriber ID:[id number] Payer ID:[id number] Group ID:Not on file Type:Medicare Address: [employer] [address] [place] [id number] [facility] MEDICARE PREFERRED HMO REPLACEMENT MEDICARE PART A & B [place] MEDICARE PREFERRED HMO REPLACEMENT MEDICARE PART A & B [place] MEDICARE PREFERRED HMO REPLACEMENT [facility] MEDICARE PART A & B [place] MEDICARE PREFERRED HMO REPLACEMENT MEDICARE PART A & B [place] MEDICARE PREFERRED HMO REPLACEMENT [facility] MEDICARE PART A & B [place] MEDICARE PREFERRED HMO REPLACEMENT [facility] MEDICARE PART A & B [place] MEDICARE PREFERRED HMO REPLACEMENT [facility] Care Teams Physician Relations Specialist Relationship Specialty Start Date End Date Dandre Chavez MD [address] [place] [address] PCP - General 09/05/17 Miguel Enciso MD [address] [place] [address] [email or web address] Cardiology 05/28/24 Additional Source Comments The information contained in this document represents components of the legal health record. It is not the complete legal health record.[facility]
[2025-05-20 06:27] LABS: Anion Gap 19 (12-20); Blood Urea Nitrogen 106 mg/dL (9-16); Calcium 9.1 mg/dL (8.4-10.2); Carbon Dioxide 27 mmol/L (22-29); Chloride 99 mmol/L (96-108); Estimated Glomerular Filt Rate 13; Potassium 3.4 mmol/L (3.3-5.1); Sodium 142 mmol/L (135-145)
== END 2025-05-20 05:33 | disposition home or self-care (01) ==
LOC: HO.MMNH2L 05:32
PROVIDERS: Visit Provider Student in an Organized Health Care Education/Training Program
DX: I50.33 Acute on chronic diastolic (congestive) heart failure (principal); I27.20 Pulmonary hypertension, unspecified; J44.9 Chronic obstructive pulmonary disease, unspecified
CPT/HCPCS: 36415; 80048

== ENCOUNTER 2025-05-24 07:12 | Outpatient (REF) | payer MEDICARE, SELFPAY ==
--- OUTSIDE RECORDS SUMMARY | 2018-12-31 05:05 | XMS_ITS | Continuity of Care Document ---
Author Organization [facility] Address [address] [address] Phone Care Team Providers Care Motel Keeper Name Role Phone Brodie Hinds DO Unavailable Unavailable Advance Directives Directive Yes / No Effective Date File Name No Information Encounters Encounter Description Practice Location Reason(s) For Visit Diagnoses Date Provider [facility], [address], [id number], [place] tel:[phone] [address] [place] [address] No Information 2018 Guzman Calloway. [address] [place] [address], [id number], [place]. tel:[phone] Family History Family Member Type Diagnosis Age [...]
[2025-05-24 06:43] LABS: MANUAL DIFF FLAG NO
--- OUTSIDE RECORDS SUMMARY | 2025-05-24 07:14 | XMS_ITS | Clinical Summary ---
Author Organization [facility], Address [address] [place] [address] Phone Care Team Providers Care Osd Clerk Name Role Phone Dandre Chavez MD Primary Care Provider [phone] Allergies Active Allergy Reactions Criticality Noted Date [...] PM EST) Hemoglobin A1C 6.9(H) (4.0-5.6) % [facility] Comment: MONITORING: In known diabetic patients, hemoglobin A1c targets should be discussed with health care provider. DIAGNOSTIC USE: The [place] Diabetes Association (ADA) and the World Health [...] Supplement 1 Testing performed or reported by [facility], a Service of [address] [address] Louis Fry MD, Bakery Chef [facility]# [id number] Blood specimen (specimen) Venous blood / Unknown 10/18/2022 2:34 PM EST 10/18/2022 2:35 PM EST us Faina LUCIANO LAB BLOOD ORDERABLES Final Res ult [facility] from Last 3 Months or Most Recently Relevant to Health Maintenance Insurance Medicare [facility] [place] [id number] Care Teams Osd Clerk Relationship Specialty Start Date End Date Dandre Chavez MD [address] [place] [address], [address] [place] PCP - General 07/07/19
--- OUTSIDE RECORDS SUMMARY | 2025-05-24 07:14 | XMS_ITS | Encounter Summary ---
Author Organization [facility] Address [address] [place] [address] Care Team Providers Care Tool Maker Name Role Phone Amina Burciaga MD Primary Care Provider [phone] Encounter Details Date Type Department Care Team (Late st Contact Info) Description 09/30/2024 Lab Requisition [facility] - Main Lab [address] [facility] [place] [address] Isaac Stark MD [address] [place] [address] [place] [address] Heart failure, unspecified [...] (ABNORMAL) Vitamin B12 (09/30/2024 9:57 AM EST) [facility] Vitamin B-12 1,028(H) 250 - 900 pcg/mL LAB CHEMISTRY METHOD 09/30/2024 1:04 PM [facility] Blood Venous blood specimen / Unknown Venipuncture / Unknown 09/30/2024 9:57 AM EST 09/30/2024 10:50 AM EST us Isaac Stark MD LAB BLOOD ORDERABLES Final Resu lt [facility] [address] [place] [address], [place] [phone] * (ABNORMAL) Comprehensive metabolic panel (09/30/2024 9:57 AM EST) [facility] Sodium 138 133 - 145 mmol/L LAB CHEMISTRY METHOD 09/30/2024 1:04 PM [facility] Potassium 3.7 3.5 - 5.5 mmol/L LAB CHEMISTRY METHOD 09/30/2024 1:04 PM [facility] Chloride 100 96 - 110 mmol/L LAB CHEMISTRY METHOD 09/30/2024 1:04 PM [facility] CO2 31 21 - 32 mmol/L LAB CHEMISTRY METHOD 09/30/2024 1:04 PM [facility] Anion Gap 7 3 - 11 LAB CHEMISTRY METHOD 09/30/2024 1:04 PM [facility] Glucose 228(H) 70 - 100 mg/dL LAB CHEMISTRY METHOD 09/30/2024 1:04 PM [facility] BUN 90(H) 5 - 25 mg/dL LAB CHEMISTRY METHOD 09/30/2024 1:04 PM [facility] Creatinine 2.19(H) 0.50 - 1.10 mg/dL LAB CHEMISTRY METHOD 09/30/2024 1:04 PM [facility] eGFR 23(L) >=60 mL/min/1. 73m2 LAB CHEMISTRY METHOD 09/30/2024 1:04 PM [facility] Comment:Calculation based on the Chronic Kidney Disease Epidemiology Collaboration (CKD-EPI) equation refit without adjustment for race. BUN/Creatinine Ratio 41.1 LAB CHEMISTRY METHOD 09/30/2024 1:04 PM [facility] Calcium 8.9 8.5 - 10.5 mg/dL LAB CHEMISTRY METHOD 09/30/2024 1:04 PM [facility] AST (SGOT) 22 10 - 42 unit/L LAB CHEMISTRY METHOD 09/30/2024 1:04 PM [facility] ALT (SGPT) 28 10 - 60 unit/L LAB CHEMISTRY METHOD 09/30/2024 1:04 PM [facility] Alkaline Phosphatase 47 42 - 121 unit/L LAB CHEMISTRY METHOD 09/30/2024 1:04 PM [facility] Total Protein 6.2 6.0 - 8.0 g/dL LAB CHEMISTRY METHOD 09/30/2024 1:04 PM [facility] Albumin 2.7(L) 3.2 - 5.0 g/dL LAB CHEMISTRY METHOD 09/30/2024 1:04 PM [facility] Total Bilirubin 0.6 0.0 - 1.4 mg/dL LAB CHEMISTRY METHOD 09/30/2024 1:04 PM [facility] Blood Venous blood specimen / Unknown Venipuncture / Unknown 09/30/2024 9:57 AM EST 09/30/2024 10:50 AM EST us Isaac Stark MD LAB BLOOD ORDERABLES Final Resu lt [facility] [address] [place] [address], * (ABNORMAL) Complete blood count (09/30/2024 9:57 AM EST) [facility] WBC 5.9 4.8 - 10.8 K/mcL LAB HEMETOLOGY METHOD 09/30/2024 12:25 PM [facility] RBC 3.80 3.80 - 4.80 M/mcL LAB HEMETOLOGY METHOD 09/30/2024 12:25 PM [facility] Hemoglobin 11.2(L) 11.5 - 16.0 g/dL LAB HEMETOLOGY METHOD 09/30/2024 12:25 PM [facility] Hematocrit 37.7 35.0 - 47.0 % LAB HEMETOLOGY METHOD 09/30/2024 12:25 PM [facility] MCV 98.2(H) 79.0 - 98.0 FL LAB HEMETOLOGY METHOD 09/30/2024 12:25 PM [facility] MCH 29.2 27.0 - 32.0 pcg LAB HEMETOLOGY METHOD 09/30/2024 12:25 PM [facility] MCHC 29.7(L) 32.0 - 37.0 g/dL LAB HEMETOLOGY METHOD 09/30/2024 12:25 PM [facility] RDW 17.7(H) 11.0 - 15.0 % LAB HEMETOLOGY METHOD 09/30/2024 12:25 PM [facility] Platelets 183 130 - 400 K/mcL LAB HEMETOLOGY METHOD 09/30/2024 12:25 PM [facility] MPV 11.7(H) 7.0 - 11.0 FL LAB HEMETOLOGY METHOD 09/30/2024 12:25 PM [facility] NRBC 0.0 <1.0 % LAB HEMETOLOGY METHOD 09/30/2024 12:25 PM [facility] NRBC Absolute 0.00 <0.10 K/mcL LAB HEMETOLOGY METHOD 09/30/2024 12:25 PM EST [facility] Blood Venous blood specimen / Unknown Venipuncture / Unknown 09/30/2024 9:57 AM EST 09/30/2024 10:50 AM EST us Isaac Stark MD LAB BLOOD ORDERABLES Final Resu lt Performing Organization Address City/[facility]/ZIP Co de Phone Number [facility] [address] [place] [address], [place] [phone] * Vitamin D 25 hydroxy (09/30/2024 9:57 AM EST) Vit D, 25-Hydroxy 54.9 30.0 - 80.0 ng/mL LAB CHEMISTRY METHOD 09/30/2024 12:48 PM EST [facility] Blood Venous blood specimen / Unknown Venipuncture / Unknown 09/30/2024 9:57 AM EST 09/30/2024 10:50 AM EST us Isaac Stark MD LAB BLOOD ORDERABLES Final Resu lt Performing Organization Address [facility]/ZIP Co de Phone Number [facility] [address] [place] [address], [place] [phone] documented in this encounter Visit Diagnoses Diagnosis Heart failure, unspecified (CMS/HCC V24, CMS/HCC V28) Heart failure, unspecified Vitamin D deficiency, unspecified documented in this encounter Care Teams Tool Maker Relationship Specialty Start Date End Date Amina Burciaga MD [address] [place] [phone] PCP - General Hospitalist Medicine 09/11/24 documented as of this encounter
--- OUTSIDE RECORDS SUMMARY | 2025-05-24 07:14 | XMS_ITS | Clinical Summary ---
Author Organization [address] Address [address] [place] [address] Phone Care Team Providers Care Event Coordinator Name Role Phone Amina Burciaga MD Primary Care Provider [phone] Immunizations Name Administration Dates Next Due Pfizer [...] mmol/L LAB CHEMISTRY METHOD 09/30/2024 1:04 PM [facility] Potassium 3.7 3.5 - 5.5 mmol/L LAB CHEMISTRY METHOD 09/30/2024 1:04 PM [facility] Chloride 100 96 - 110 mmol/L LAB CHEMISTRY METHOD 09/30/2024 1:04 PM [facility] CO2 31 21 - 32 mmol/L LAB CHEMISTRY METHOD 09/30/2024 1:04 PM [facility] Anion Gap 7 3 - 11 LAB CHEMISTRY METHOD 09/30/2024 1:04 PM [facility] Glucose 228(H) 70 - 100 mg/dL LAB CHEMISTRY METHOD 09/30/2024 1:04 PM [facility] BUN 90(H) 5 - 25 mg/dL LAB CHEMISTRY METHOD 09/30/2024 1:04 PM [facility] Creatinine 2.19(H) 0.50 - 1.10 mg/dL LAB CHEMISTRY METHOD 09/30/2024 1:04 PM [facility] eGFR 23(L) >=60 mL/min/1. 73m2 LAB CHEMISTRY METHOD 09/30/2024 1:04 PM [facility] Comment:Calculation based on the Chronic Kidney Disease Epidemiology Collaboration (CKD-EPI) equation refit without adjustment for race. BUN/Creatinine Ratio 41.1 LAB CHEMISTRY METHOD 09/30/2024 1:04 PM [facility] Calcium 8.9 8.5 - 10.5 mg/dL LAB CHEMISTRY METHOD 09/30/2024 1:04 PM [facility] AST (SGOT) 22 10 - 42 unit/L LAB CHEMISTRY METHOD 09/30/2024 1:04 PM [facility] ALT (SGPT) 28 10 - 60 unit/L LAB CHEMISTRY METHOD 09/30/2024 1:04 PM [facility] Alkaline Phosphatase 47 42 - 121 unit/L LAB CHEMISTRY METHOD 09/30/2024 1:04 PM EST [facility] Total Protein 6.2 6.0 - 8.0 g/dL LAB CHEMISTRY METHOD 09/30/2024 1:04 PM [facility] Albumin 2.7(L) 3.2 - 5.0 g/dL LAB CHEMISTRY METHOD 09/30/2024 1:04 PM [facility] Total Bilirubin 0.6 0.0 - 1.4 mg/dL LAB CHEMISTRY METHOD 09/30/2024 1:04 PM [facility] Blood Venous blood specimen / Unknown Venipuncture / Unknown 09/30/2024 9:57 AM EST 09/30/2024 10:50 AM EST Isaac Stark MD LAB BLOOD ORDERABLES Final Resu lt Performing Organization Address City/[facility]/ZIP Co de Phone Number [facility] [address] [place] [address], [place] [phone] * Hemoglobin A1c (09/23/2024 8:20 AM EST) Hemoglobin A1C 5.3 <6.5 % LAB CHEMISTRY METHOD 09/23/2024 2:17 PM [facility] Mean Bld Glu Estim. 105 mg/dL LAB CHEMISTRY METHOD 09/23/2024 2:17 PM [facility] Blood Venous blood specimen / Unknown Venipuncture / Unknown 09/23/2024 8:20 AM EST 09/23/2024 12:06 PM EST Amina Burciaga MD LAB BLOOD ORDERABLES Final Resul t Performing Organization Address City/[facility]/ZIP Co de Phone Number [facility] [address] [place] [address], [place] [phone] from Last 3 Months or Most Recently Relevant to Health Maintenance Insurance [place] [employer] [employer] Care Teams Event Coordinator Relationship Specialty Start Date End Date Amina Burciaga MD [address] [place] [phone] PCP - General Hospitalist Medicine 09/11/24
--- OUTSIDE RECORDS SUMMARY | 2025-05-24 07:14 | XMS_ITS | Encounter Summary ---
Author Organization [facility], Address [address] [place] [address] Phone Care Team Providers Care Canal Equipment Maintenance Supervisor Name Role Phone Dandre Chavez MD Primary Care Provider [phone] Encounter Details Date Type Department Care Team (Late st Contact Info) Description 01/08/2025 Documentation Only [facility], [address] [place] [address] Radha Chatterjee [place] [address] [place] [phone] Social History Tobacco Use Types Packs/Day Years [...] on filedocumented in this encounter Care Teams Canal Equipment Maintenance Supervisor Relationship Specialty Start Date End Date Dandre Chavez MD [address] [place] [address], [address] [place], [place] PCP - General 07/07/19 documented as of this encounter
--- OUTSIDE RECORDS SUMMARY | 2025-05-24 07:14 | XMS_ITS | Clinical Summary ---
Author Organization [facility] Address [address] [place] [address] Care Team Providers Care Tractor Crane Engineer Name Role Phone Dandre Chavez MD Primary Care Provider [phone] Allergies Active Allergy Reactions Criticality Noted Date [...] age to complete this topic Care Teams Tractor Crane Engineer Relationship Specialty Start Date End Date Dandre Chavez MD [address] [place] [address] [place] [phone] PCP - General Internal Medicine 11/06/22
--- OUTSIDE RECORDS SUMMARY | 2025-05-24 07:14 | XMS_ITS | Encounter Summary ---
Author Organization [facility] Address [address] [place] [address] Phone Care Team Providers Care Service Advisor Name Role Phone Dandre Chavez MD Primary Care Provider [phone] Miguel Enciso MD Unavailable [phone] Encounter Details Date Type Department Care Team (Latest Contact Info) Description 12/16/2018 Ancillary Orders Non-Invasive Cardiology [address] [place] [address] Cathy Browning NP [address] [place] [address] Atherosclerosis of chinik coronary artery of chinik heart with angina pectoris Social History Tobacco [...] AM EDT) Max BP Systolic 150 mmHg [facility] Max BP Diastolic 80 mmHg [facility] Max HR 89 BPM [facility] Resting HR 78 BPM [facility] Resting BP Systolic 150 mmHg [facility] Resting BP Diastolic 80 mmHg [facility] Peak METS 1.0 METS [facility] Peak HR 83 BPM [facility] Anatomical Region Laterality Modality Heart [...] this encounter Visit Diagnoses Diagnosis Atherosclerosis of chinik coronary artery of chin[place] heart with angina pectoris Atherosclerosis of chin[place] coronary artery of chin[place] heart with angina pectoris documented in this encounter Care Teams Service Advisor Relationship Specialty Start Date End Date Dandre Chavez MD [address] [place] [address] PCP - General 09/05/17 Miguel Enciso MD [address] [place] [address] [address] [place] [address] [email or web address] Cardiology 05/28/24 documented as of this encounter Additional Source Comments The information contained in this document represents components of the legal health record. It is not the complete legal health record.[facility]
--- OUTSIDE RECORDS SUMMARY | 2025-05-24 07:14 | XMS_ITS | Encounter Summary ---
Author Organization [facility], Address [address] [place] [address] Phone Care Team Providers Care Inspector Repairer Name Role Phone Dandre Chavez MD Primary Care Provider [phone] Encounter Details Date Type Department Care Team (Late st Contact Info) Description 08/06/2023 Documentation Only [facility], [address] [place] [address] Desi Rodriguez Social History Tobacco Use Types [...] on filedocumented in this encounter Care Teams Inspector Repairer Relationship Specialty Start Date End Date Dandre Chavez MD [address] [place] [address], [address] [place], [place] PCP - General 07/07/19 documented as of this encounter
--- OUTSIDE RECORDS SUMMARY | 2025-05-24 07:14 | XMS_ITS | Encounter Summary ---
Author Organization [facility] Address [address] [place] [phone] Care Team Providers Care Wire Coiner Name Role Phone Amina Burciaga MD Primary Care Provider Encounter Details Date Type Department Care Team (Latest Contact Info) Description 09/23/2024 Lab Requisition [facility] - Main Lab [address] [facility] [place] [address] Amina Burciaga MD [address] [place] [address] Type 2 diabetes mellitus with [...] % LAB CHEMISTRY METHOD 09/23/2024 2:17 PM [facility] Mean Bld Glu Estim. 105 mg/dL LAB CHEMISTRY METHOD 09/23/2024 2:17 PM [facility] Blood Venous blood specimen / Unknown Venipuncture / Unknown 09/23/2024 8:20 AM EST 09/23/2024 12:06 PM EST Amina Burciaga MD LAB BLOOD ORDERABLES Final Resul t [facility] [address] [place] [address], * (ABNORMAL) Comprehensive metabolic panel (09/23/2024 8:20 AM EST) Pathologist [facility] Sodium 140 133 - 145 mmol/L LAB CHEMISTRY METHOD 09/23/2024 4:37 PM [facility] Potassium 3.9 3.5 - 5.5 mmol/L LAB CHEMISTRY METHOD 09/23/2024 4:37 PM [facility] Chloride 102 96 - 110 mmol/L LAB CHEMISTRY METHOD 09/23/2024 4:37 PM [facility] CO2 31 21 - 32 mmol/L LAB CHEMISTRY METHOD 09/23/2024 4:37 PM [facility] Anion Gap 7 3 - 11 LAB CHEMISTRY METHOD 09/23/2024 4:37 PM [facility] Glucose 106(H) 70 - 100 mg/dL LAB CHEMISTRY METHOD 09/23/2024 4:37 PM [facility] BUN 82(H) 5 - 25 mg/dL LAB CHEMISTRY METHOD 09/23/2024 4:37 PM [facility] Creatinine 2.46(H) 0.50 - 1.10 mg/dL LAB CHEMISTRY METHOD 09/23/2024 4:37 PM [facility] eGFR 20(L) >=60 mL/min/1. 73m2 LAB CHEMISTRY METHOD 09/23/2024 4:37 PM [facility] Comment:Calculation based on the Chronic Kidney Disease Epidemiology Collaboration (CKD-EPI) equation refit without adjustment for race. BUN/Creatinine Ratio 33.3 LAB CHEMISTRY METHOD 09/23/2024 4:37 PM [facility] Calcium 8.7 8.5 - 10.5 mg/dL LAB CHEMISTRY METHOD 09/23/2024 4:37 PM [facility] AST (SGOT) 17 10 - 42 unit/L LAB CHEMISTRY METHOD 09/23/2024 4:37 PM [facility] ALT (SGPT) 34 10 - 60 unit/L LAB CHEMISTRY METHOD 09/23/2024 4:37 PM [facility] Alkaline Phosphatase 57 42 - 121 unit/L LAB CHEMISTRY METHOD 09/23/2024 4:37 PM [facility] Total Protein 7.1 6.0 - 8.0 g/dL LAB CHEMISTRY METHOD 09/23/2024 4:37 PM [facility] Albumin 3.2 3.2 - 5.0 g/dL LAB CHEMISTRY METHOD 09/23/2024 4:37 PM [facility] Total Bilirubin 0.6 0.0 - 1.4 mg/dL LAB CHEMISTRY METHOD 09/23/2024 4:37 PM [facility] Blood Venous blood specimen / Unknown Venipuncture / Unknown 09/23/2024 8:20 AM EST 09/23/2024 12:06 PM EST us Amina Burciaga MD LAB BLOOD ORDERABLES Final Resul t [facility] [address] [place] [address], * (ABNORMAL) Complete blood count (09/23/2024 8:20 AM EST) [facility] WBC 6.2 4.8 - 10.8 K/mcL LAB HEMETOLOGY METHOD 09/23/2024 12:38 PM [facility] RBC 3.60(L) 3.80 - 4.80 M/mcL LAB HEMETOLOGY METHOD 09/23/2024 12:38 PM [facility] Hemoglobin 10.5(L) 11.5 - 16.0 g/dL LAB HEMETOLOGY METHOD 09/23/2024 12:38 PM [facility] Hematocrit 36.5 35.0 - 47.0 % LAB HEMETOLOGY METHOD 09/23/2024 12:38 PM [facility] MCV 100.3(H) 79.0 - 98.0 FL LAB HEMETOLOGY METHOD 09/23/2024 12:38 PM [facility] MCH 28.8 27.0 - 32.0 pcg LAB HEMETOLOGY METHOD 09/23/2024 12:38 PM [facility] MCHC 28.8(L) 32.0 - 37.0 g/dL LAB HEMETOLOGY METHOD 09/23/2024 12:38 PM [facility] RDW 18.4(H) 11.0 - 15.0 % LAB HEMETOLOGY METHOD 09/23/2024 12:38 PM [facility] Platelets 254 130 - 400 K/mcL LAB HEMETOLOGY METHOD 09/23/2024 12:38 PM [facility] MPV 10.7 7.0 - 11.0 FL LAB HEMETOLOGY METHOD 09/23/2024 12:38 PM [facility] NRBC 0.0 <1.0 % LAB HEMETOLOGY METHOD 09/23/2024 12:38 PM EST [facility] NRBC Absolute 0.00 <0.10 K/mcL LAB HEMETOLOGY METHOD 09/23/2024 12:38 PM EST [facility] Blood Venous blood specimen / Unknown Venipuncture / Unknown 09/23/2024 8:20 AM EST 09/23/2024 12:06 PM EST us Amina Burciaga MD LAB BLOOD ORDERABLES Final Resul t [facility] [address] [place] [address], documented in this encounter Visit Diagnoses Diagnosis Type 2 diabetes mellitus with unspecified complications (CMS/HCC V24, CMS/HCC V28) Unspecified systolic (congestive) heart failure (CMS/HCC V24, CMS/HCC V28) documented in this encounter Care Teams Wire Coiner Relationship Specialty Start Date End Date Amina Burciaga MD [address] [place] [address] PCP - General Hospitalist Medicine 09/11/24 documented as of this encounter
--- OUTSIDE RECORDS SUMMARY | 2025-05-24 07:14 | XMS_ITS | Encounter Summary ---
Author Organization [facility], Address [address] [place] [address] Phone Care Team Providers Care Blend Technician Name Role Phone Dandre Chavez MD Primary Care Provider [phone] Encounter Details Date Type Department Care Team (Late st Contact Info) Description 01/14/2023 Documentation Only [facility], [address] [place] [address] Melissa Delgadillo [address] [place] [phone] Social History Tobacco Use Types Packs/Day Years [...] on filedocumented in this encounter Care Teams Blend Technician Relationship Specialty Start Date End Date Dandre Chavez MD [address] [place] [address], [address] [place], [place] PCP - General 07/07/19 documented as of this encounter
--- OUTSIDE RECORDS SUMMARY | 2025-05-24 07:14 | XMS_ITS | Encounter Summary ---
Author Organization [facility] Address [address] [place] [address] Care Team Providers Care Acoustical Logging Engineer Name Role Phone Amina Burciaga MD Primary Care Provider [phone] Encounter Details Date Type Department Care Team (Latest Contact Info) Description 09/07/2024 Lab Requisition [facility] - Main Lab [address] [facility] [employer] [address] Amina Burciaga MD [address] [place] [address] Heart failure, unspecified (CMS/HCC V24, [...] unspecified Type 2 diabetes mellitus without complications ([facility]) documented in this encounter Results * Hemoglobin A1c (09/07/2024 6:24 AM EST) Pathologist [facility] Hemoglobin A1C 5.1 <6.5 % LAB CHEMISTRY METHOD 09/07/2024 11:11 AM EST [facility] Mean Bld Glu Estim. 100 mg/dL LAB CHEMISTRY METHOD 09/07/2024 11:11 AM [facility] Blood Venous blood specimen / Unknown Venipuncture / Unknown 09/07/2024 6:24 AM EST 09/07/2024 8:12 AM EST Amina Burciaga MD LAB BLOOD ORDERABLES Final Resul t [facility] [address] [place] [address], * (ABNORMAL) Comprehensive metabolic panel (09/07/2024 6:24 AM EST) [facility] Sodium 140 133 - 145 mmol/L LAB CHEMISTRY METHOD 09/07/2024 9:18 AM [facility] Potassium 3.8 3.5 - 5.5 mmol/L LAB CHEMISTRY METHOD 09/07/2024 9:18 AM [facility] Chloride 106 96 - 110 mmol/L LAB CHEMISTRY METHOD 09/07/2024 9:18 AM [facility] CO2 28 21 - 32 mmol/L LAB CHEMISTRY METHOD 09/07/2024 9:18 AM [facility] Anion Gap 6 3 - 11 LAB CHEMISTRY METHOD 09/07/2024 9:18 AM [facility] Glucose 61(L) 70 - 100 mg/dL LAB CHEMISTRY METHOD 09/07/2024 9:18 AM [facility] BUN 59(H) 5 - 25 mg/dL LAB CHEMISTRY METHOD 09/07/2024 9:18 AM [facility] Creatinine 3.13(H) 0.50 - 1.10 mg/dL LAB CHEMISTRY METHOD 09/07/2024 9:18 AM [facility] eGFR 15(L) >=60 mL/min/1. 73m2 LAB CHEMISTRY METHOD 09/07/2024 9:18 AM [facility] Comment:Calculation based on the Chronic Kidney Disease Epidemiology Collaboration (CKD-EPI) equation refit without adjustment for race. BUN/Creatinine Ratio 18.8 LAB CHEMISTRY METHOD 09/07/2024 9:18 AM [facility] Calcium 9.0 8.5 - 10.5 mg/dL LAB CHEMISTRY METHOD 09/07/2024 9:18 AM [facility] AST (SGOT) 17 10 - 42 unit/L LAB CHEMISTRY METHOD 09/07/2024 9:18 AM [facility] ALT (SGPT) 20 10 - 60 unit/L LAB CHEMISTRY METHOD 09/07/2024 9:18 AM [facility] Alkaline Phosphatase 60 42 - 121 unit/L LAB CHEMISTRY METHOD 09/07/2024 9:18 AM [facility] Total Protein 6.9 6.0 - 8.0 g/dL LAB CHEMISTRY METHOD 09/07/2024 9:18 AM [facility] Albumin 3.0(L) 3.2 - 5.0 g/dL LAB CHEMISTRY METHOD 09/07/2024 9:18 AM [facility] Total Bilirubin 0.5 0.0 - 1.4 mg/dL LAB CHEMISTRY METHOD 09/07/2024 9:18 AM [facility] Blood Venous blood specimen / Unknown Venipuncture / Unknown 09/07/2024 6:24 AM EST 09/07/2024 8:12 AM EST us Amina Burciaga MD LAB BLOOD ORDERABLES Final Resul t [facility] [address] [place] [address], * (ABNORMAL) Complete blood count (09/07/2024 6:24 AM EST) [facility] Signature WBC 4.7(L) 4.8 - 10.8 K/mcL LAB HEMETOLOGY METHOD 09/07/2024 8:53 AM [facility] RBC 3.00(L) 3.80 - 4.80 M/mcL LAB HEMETOLOGY METHOD 09/07/2024 8:53 AM [facility] Hemoglobin 8.9(L) 11.5 - 16.0 g/dL LAB HEMETOLOGY METHOD 09/07/2024 8:53 AM [facility] Hematocrit 30.6(L) 35.0 - 47.0 % LAB HEMETOLOGY METHOD 09/07/2024 8:53 AM [facility] MCV 101.7(H) 79.0 - 98.0 FL LAB HEMETOLOGY METHOD 09/07/2024 8:53 AM [facility] MCH 29.6 27.0 - 32.0 pcg LAB HEMETOLOGY METHOD 09/07/2024 8:53 AM [facility] MCHC 29.1(L) 32.0 - 37.0 g/dL LAB HEMETOLOGY METHOD 09/07/2024 8:53 AM [facility] RDW 20.1(H) 11.0 - 15.0 % LAB HEMETOLOGY METHOD 09/07/2024 8:53 AM [facility] Platelets 196 130 - 400 K/mcL LAB HEMETOLOGY METHOD 09/07/2024 8:53 AM [facility] MPV 10.0 7.0 - 11.0 FL LAB HEMETOLOGY METHOD 09/07/2024 8:53 AM [facility] NRBC 0.0 <1.0 % LAB HEMETOLOGY METHOD 09/07/2024 8:53 AM EST [facility] NRBC Absolute 0.00 <0.10 K/mcL LAB HEMETOLOGY METHOD 09/07/2024 8:53 AM EST [facility] Blood Venous blood specimen / Unknown Venipuncture / Unknown 09/07/2024 6:24 AM EST 09/07/2024 8:12 AM EST us Amina Burciaga MD LAB BLOOD ORDERABLES Final Resul t [facility] [address] [place] [address], documented in this encounter Visit Diagnoses Diagnosis Heart failure, unspecified (CMS/HCC V24, CMS/HCC V28) Heart failure, unspecified Chronic kidney disease, unspecified Type 2 diabetes mellitus without complications (CMS/HCC V24, CMS/HCC V28) documented in this encounter Care Teams Acoustical Logging Engineer Relationship Specialty Start Date End Date Amina Burciaga MD [address] [place] [address] PCP - General Hospitalist Medicine 09/11/24 documented as of this encounter
--- OUTSIDE RECORDS SUMMARY | 2025-05-24 07:14 | XMS_ITS | Encounter Summary ---
Author Organization [facility], Address [address] [place] [address] Phone Care Team Providers Care Painter Sign Maintenance Name Role Phone Dandre Chavez MD Primary Care Provider [phone] Encounter Details Date Type Department Care Team (Late st Contact Info) Description 11/29/2023 Documentation Only [facility], [address] [place] [address] Radha Chatterjee [place] [address] [place] [phone] Social History Tobacco Use Types Packs/Day Years [...] on filedocumented in this encounter Care Teams Painter Sign Maintenance Relationship Specialty Start Date End Date Dandre Chavez MD [address] [place] [address], [address] [place], [place] PCP - General 07/07/19 documented as of this encounter
--- OUTSIDE RECORDS SUMMARY | 2025-05-24 07:15 | XMS_ITS | Encounter Summary ---
Author Organization [facility], Address [address] [place] [address] Phone Care Team Providers Care Syrup Mixer Assistant Name Role Phone Dandre Chavez MD Primary Care Provider Encounter Details Date Type Department Care Team (Late st Contact Info) Description 08/02/2022 Documentation Only [facility], [address] [place] [address] Faina Villegas PA Social History Tobacco Use [...] on filedocumented in this encounter Care Teams Syrup Mixer Assistant Relationship Specialty Start Date End Date Dandre Chavez MD [address] [place] [address], [address] [place], [place] PCP - General 07/07/19 documented as of this encounter
--- OUTSIDE RECORDS SUMMARY | 2025-05-24 07:15 | XMS_ITS | Encounter Summary ---
Author Organization [facility] Address [address] [place] [address] Phone Care Team Providers Care Softball Coach Name Role Phone Dandre Chavez MD Primary Care Provider [phone] Miguel Enciso MD Unavailable [phone] Encounter Details Date Type Department Care Team (Late st Contact Info) Description 12/21/2022 Procedure Pass Echo Lab [address] [id number] Social History Tobacco Use Types Packs/Day Years [...] on filedocumented in this encounter Care Teams Softball Coach Relationship Specialty Start Date End Date Dandre Chavez MD [address] [place] [address] [id number] PCP - General 09/05/17 Miguel Enciso MD [address] [facility], [address] [place], [place] [phone] Cardiology 05/28/24 documented as of this encounter Additional Source Comments The information contained in this document represents components of the legal health record. It is not the complete legal health record.[facility]
--- OUTSIDE RECORDS SUMMARY | 2025-05-24 07:15 | XMS_ITS | Encounter Summary ---
Author Organization [facility], Address [address] [place] [address] Phone Care Team Providers Care Business Continuity Manager Name Role Phone Dandre Chavez MD Primary Care Provider [phone] Encounter Details Date Type Department Care Team (Late st Contact Info) Description 10/30/2022 Documentation Only [facility], [address] [place] [address] Melissa Delgadillo [address] [place] [phone] Social History Tobacco Use Types Packs/Day Years [...] on filedocumented in this encounter Care Teams Business Continuity Manager Relationship Specialty Start Date End Date Dandre Chavez MD [address] [place] [address], [address] [place], [place] PCP - General 07/07/19 documented as of this encounter
--- OUTSIDE RECORDS SUMMARY | 2025-05-24 07:15 | XMS_ITS | Encounter Summary ---
Author Organization [facility], Address [address] [place] [address] Phone Care Team Providers Care Independent Insurance Adjuster Name Role Phone Dandre Chavez MD Primary Care Provider [phone] Encounter Details Date Type Department Care Team (Late st Contact Info) Description 09/07/2022 Documentation Only [facility], [address] [place] [address] Faina Villegas PA Social History Tobacco Use [...] on filedocumented in this encounter Care Teams Independent Insurance Adjuster Relationship Specialty Start Date End Date Dandre Chavez MD [address] [place] [address], [address] [place], [place] PCP - General 07/07/19 documented as of this encounter
--- OUTSIDE RECORDS SUMMARY | 2025-05-24 07:15 | XMS_ITS | Encounter Summary ---
Author Organization [facility], Address [address] [place] [address] Phone Care Team Providers Care Story Editor Name Role Phone Dandre Chavez MD Primary Care Provider [phone] Encounter Details Date Type Department Care Team (Late st Contact Info) Description 12/31/2022 Documentation Only [facility], [address] [place] [address] Melissa Delgadillo [address] [place] [phone] Social History Tobacco Use Types Packs/Day Years [...] on filedocumented in this encounter Care Teams Story Editor Relationship Specialty Start Date End Date Dandre Chavez MD [address] [place] [address], [address] [place], [place] PCP - General 07/07/19 documented as of this encounter
--- OUTSIDE RECORDS SUMMARY | 2025-05-24 07:15 | XMS_ITS | Encounter Summary ---
Author Organization [facility] Address [address] [place] [address] Care Team Providers Care Circus Laborer Name Role Phone Amina Burciaga MD Primary Care Provider [phone] Encounter Details Date Type Department Care Team (Late st Contact Info) Description 08/10/2024 Lab Requisition [facility] - Main Lab [address] [facility] [address] Hortencia Mcclellan MD [address] [id number] Type 2 diabetes mellitus without complications (CMS/HCC [...] unspecified documented in this encounter Care Teams Circus Laborer Relationship Specialty Start Date End Date Amina Burciaga MD [address] [place] [address] PCP - General Hospitalist Medicine 09/11/24 documented as of this encounter
--- OUTSIDE RECORDS SUMMARY | 2025-05-24 07:15 | XMS_ITS | Encounter Summary ---
Author Organization [facility], Address [address] [place] [address] Phone Care Team Providers Care Bridge Leverman Name Role Phone Dandre Chavez MD Primary Care Provider [phone] Encounter Details Date Type Department Care Team (Late st Contact Info) Description 09/25/2021 Documentation Only [facility], [address] [place] [address] Faina Villegas PA Social History Tobacco Use [...] on filedocumented in this encounter Care Teams Bridge Leverman Relationship Specialty Start Date End Date Dandre Chavez MD [address] [place] [address], [address] [place], [place] PCP - General 07/07/19 documented as of this encounter
--- OUTSIDE RECORDS SUMMARY | 2025-05-24 07:15 | XMS_ITS | Encounter Summary ---
Author Organization [facility] Address [address] [place], [place] [address] [place] [address] Phone Care Team Providers Care Manager Completions Name Role Phone Dandre Chavez MD Primary Care Provider [phone] Miguel Enciso MD Unavailable [phone] Encounter Details Date Type Department Care Team (Late st Contact Info) Description 07/01/2024 Procedure Pass [facility] Cardiology Referral Images [address] [facility] [address] [place] [address] Social History Tobacco Use Types Packs/Day Years [...] filedocumented in this encounter Care Teams Manager Completions Relationship Specialty Start Date End Date Dandre Chavez MD [address] [place] [address] PCP - General 09/05/17 Miguel Enciso MD [address] [place] [address] [email or web address] Cardiology 05/28/24 documented as of this encounter Additional Source Comments The information contained in this document represents components of the legal health record. It is not the complete legal health record.[facility]
--- OUTSIDE RECORDS SUMMARY | 2025-05-24 07:15 | XMS_ITS | Encounter Summary ---
Author Organization [facility] Address [address] [place] [address] Phone Care Team Providers Care Fitness And Wellness Director Name Role Phone Dandre Chavez MD Primary Care Provider [phone] Miguel Enciso MD Unavailable [phone] Encounter Details Date Type Department Care Team (Late st Contact Info) Description 09/18/2019 Ancillary Orders [facility] [address] 3[address] Floor [place], [place] [phone] Miguel Enciso MD [address] [place] [address], [address] [place], [place] [phone] [email or web address] PVD (peripheral vascular disease) Social History [...] disease documented in this encounter Care Teams Fitness And Wellness Director Relationship Specialty Start Date End Date Dandre Chavez MD [address] [place] [address] PCP - General 09/05/17 Miguel Enciso MD [address] [place] [address] [address] [place] [address] Cardiology 05/28/24 documented as of this encounter Additional Source Comments The information contained in this document represents components of the legal health record. It is not the complete legal health record.[facility]
--- OUTSIDE RECORDS SUMMARY | 2025-05-24 07:15 | XMS_ITS | Encounter Summary ---
Author Organization [facility], Address [address] [place] [address] Phone Care Team Providers Care Cdl Dedicated Truck Driver Name Role Phone Dandre Chavez MD Primary Care Provider [phone] Encounter Details Date Type Department Care Team (Late st Contact Info) Description 02/09/2022 Documentation Only [facility], [address] [place] [address] Faina Villegas PA Social History Tobacco Use [...] on filedocumented in this encounter Care Teams Cdl Dedicated Truck Driver Relationship Specialty Start Date End Date Dandre Chavez MD [address] [place] [address], [address] [place], [place] PCP - General 07/07/19 documented as of this encounter
--- OUTSIDE RECORDS SUMMARY | 2025-05-24 07:15 | XMS_ITS | Encounter Summary ---
Author Organization [facility] Address [address] [place] [address] Care Team Providers Care Occupational Therapist Assistant Name Role Phone Amina Burciaga MD Primary Care Provider [phone] Encounter Details Date Type Department Care Team (Late st Contact Info) Description 07/13/2024 Lab Requisition [facility] - Main Lab [address] [facility] [place] [address] Hortencia Mcclellan MD [address] [id number] Type 2 diabetes mellitus without complications (CMS/HCC [...] mmol/L LAB CHEMISTRY METHOD 07/14/2024 9:03 AM [facility] Potassium 3.8 3.5 - 5.5 mmol/L LAB CHEMISTRY METHOD 07/14/2024 9:03 AM [facility] Chloride 105 96 - 110 mmol/L LAB CHEMISTRY METHOD 07/14/2024 9:03 AM [facility] CO2 28 21 - 32 mmol/L LAB CHEMISTRY METHOD 07/14/2024 9:03 AM [facility] Anion Gap 6 3 - 11 LAB CHEMISTRY METHOD 07/14/2024 9:03 AM [facility] Glucose 105(H) 70 - 100 mg/dL LAB CHEMISTRY METHOD 07/14/2024 9:03 AM [facility] BUN 70(H) 5 - 25 mg/dL LAB CHEMISTRY METHOD 07/14/2024 9:03 AM [facility] Creatinine 3.26(H) 0.50 - 1.10 mg/dL LAB CHEMISTRY METHOD 07/14/2024 9:03 AM [facility] eGFR 14(L) >=60 mL/min/1. 73m2 LAB CHEMISTRY METHOD 07/14/2024 9:03 AM [facility] Comment:Calculation based on the Chronic Kidney Disease Epidemiology Collaboration (CKD-EPI) equation refit without adjustment for race. BUN/Creatinine Ratio 21.5 LAB CHEMISTRY METHOD 07/14/2024 9:03 AM [facility] Calcium 8.6 8.5 - 10.5 mg/dL LAB CHEMISTRY METHOD 07/14/2024 9:03 AM [facility] Blood Venous blood specimen / Unknown Venipuncture / Unknown 07/14/2024 6:08 AM EST 07/14/2024 8:03 AM EST us Hortencia Mcclellan MD LAB BLOOD ORDERABLES Fin al Result [facility] [address] [place] [address], * (ABNORMAL) Complete blood count (07/14/2024 6:08 AM EST) [facility] WBC 5.3 4.8 - 10.8 K/mcL LAB HEMETOLOGY METHOD 07/14/2024 8:32 AM [facility] RBC 3.00(L) 3.80 - 4.80 M/mcL LAB HEMETOLOGY METHOD 07/14/2024 8:32 AM [facility] Hemoglobin 8.3(L) 11.5 - 16.0 g/dL LAB HEMETOLOGY METHOD 07/14/2024 8:32 AM [facility] Hematocrit 29.9(L) 35.0 - 47.0 % LAB HEMETOLOGY METHOD 07/14/2024 8:32 AM [facility] MCV 101.4(H) 79.0 - 98.0 FL LAB HEMETOLOGY METHOD 07/14/2024 8:32 AM [facility] MCH 28.1 27.0 - 32.0 pcg LAB HEMETOLOGY METHOD 07/14/2024 8:32 AM [facility] MCHC 27.8(L) 32.0 - 37.0 g/dL LAB HEMETOLOGY METHOD 07/14/2024 8:32 AM [facility] RDW 20.0(H) 11.0 - 15.0 % LAB HEMETOLOGY METHOD 07/14/2024 8:32 AM [facility] Platelets 198 130 - 400 K/mcL LAB HEMETOLOGY METHOD 07/14/2024 8:32 AM [facility] MPV 10.3 7.0 - 11.0 FL LAB HEMETOLOGY METHOD 07/14/2024 8:32 AM [facility] NRBC 0.0 <1.0 % LAB HEMETOLOGY METHOD 07/14/2024 8:32 AM EST [facility] NRBC Absolute 0.00 <0.10 K/mcL LAB HEMETOLOGY METHOD 07/14/2024 8:32 AM EST [facility] Blood Venous blood specimen / Unknown Venipuncture / Unknown 07/14/2024 6:08 AM EST 07/14/2024 8:03 AM EST us Hortencia Mcclellan MD LAB BLOOD ORDERABLES Fin al Result [facility] [address] [place] [address], documented in this encounter Visit Diagnoses Diagnosis Type 2 diabetes mellitus without complications (CMS/HCC V24, CMS/HCC V28) Heart failure, unspecified (CMS/HCC V24, CMS/HCC V28) Heart failure, unspecified documented in this encounter Care Teams Occupational Therapist Assistant Relationship Specialty Start Date End Date Amina Burciaga MD [address] [place] [address] PCP - General Hospitalist Medicine 09/11/24 documented as of this encounter
--- OUTSIDE RECORDS SUMMARY | 2025-05-24 07:15 | XMS_ITS | Encounter Summary ---
Author Organization [facility] Address [address] [place] [address] Care Team Providers Care Junior Art Director Name Role Phone Amina Burciaga MD Primary Care Provider [phone] Encounter Details Date Type Department Care Team (Late st Contact Info) Description 07/10/2024 Lab Requisition [facility] - Main Lab [address] [facility] [place] [address] Lloyd Jernigan MD [address] [place] [address] Unspecified dementia, unspecified severity, without behavioral disturbance, [...] mmol/L LAB CHEMISTRY METHOD 07/10/2024 9:[address] [facility] Potassium 4.4 3.5 - 5.5 mmol/L LAB CHEMISTRY METHOD 07/10/2024 9:[address] [facility] Chloride 103 96 - 110 mmol/L LAB CHEMISTRY METHOD 07/10/2024 9:[address] [facility] CO2 31 21 - 32 mmol/L LAB CHEMISTRY METHOD 07/10/2024 9:[address] [facility] Anion Gap 5 3 - 11 LAB CHEMISTRY METHOD 07/10/2024 9:[address] [facility] Glucose 115(H) 70 - 100 mg/dL LAB CHEMISTRY METHOD 07/10/2024 9:[address] [facility] BUN 62(H) 5 - 25 mg/dL LAB CHEMISTRY METHOD 07/10/2024 9:[address] [facility] Creatinine 2.86(H) 0.50 - 1.10 mg/dL LAB CHEMISTRY METHOD 07/10/2024 9:[address] [facility] eGFR 16(L) >=60 mL/min/1. 73m2 LAB CHEMISTRY METHOD 07/10/2024 9:[address] [facility] Comment:Calculation based on the Chronic Kidney Disease Epidemiology Collaboration (CKD-EPI) equation refit without adjustment for race. BUN/Creatinine Ratio 21.7 LAB CHEMISTRY METHOD 07/10/2024 9:[address] [facility] Calcium 9.3 8.5 - 10.5 mg/dL LAB CHEMISTRY METHOD 07/10/2024 9:[address] [facility] Blood Venous blood specimen / Unknown Venipuncture / Unknown 07/10/2024 6:29 AM EST 07/10/2024 9:00 AM EST us Lloyd Jernigan MD LAB BLOOD ORDERABLES Final R esult [facility] [address] [place] [address], * (ABNORMAL) Complete blood count (07/10/2024 6:29 AM EST) WBC 5.3 4.8 - 10.8 K/mcL LAB HEMETOLOGY METHOD 07/10/2024 9:[address] [facility] RBC 3.20(L) 3.80 - 4.80 M/mcL LAB HEMETOLOGY METHOD 07/10/2024 9:[address] [facility] Hemoglobin 8.9(L) 11.5 - 16.0 g/dL LAB HEMETOLOGY METHOD 07/10/2024 9:[address] [facility] Hematocrit 32.0(L) 35.0 - 47.0 % LAB HEMETOLOGY METHOD 07/10/2024 9:[address] [facility] MCV 101.6(H) 79.0 - 98.0 FL LAB HEMETOLOGY METHOD 07/10/2024 9:[address] [facility] MCH 28.3 27.0 - 32.0 pcg LAB HEMETOLOGY METHOD 07/10/2024 9:[address] [facility] MCHC 27.8(L) 32.0 - 37.0 g/dL LAB HEMETOLOGY METHOD 07/10/2024 9:[address] [facility] RDW 20.3(H) 11.0 - 15.0 % LAB HEMETOLOGY METHOD 07/10/2024 9:[address] [facility] Platelets 239 130 - 400 K/mcL LAB HEMETOLOGY METHOD 07/10/2024 9:[address] [facility] MPV 10.2 7.0 - 11.0 FL LAB HEMETOLOGY METHOD 07/10/2024 9:47 AM EST [facility] NRBC 0.0 <1.0 % LAB HEMETOLOGY METHOD 07/10/2024 9:47 AM EST [facility] NRBC Absolute 0.00 <0.10 K/mcL LAB HEMETOLOGY METHOD 07/10/2024 9:47 AM EST [facility] Blood Venous blood specimen / Unknown Venipuncture / Unknown 07/10/2024 6:29 AM EST 07/10/2024 9:00 AM EST Lloyd Jernigan MD LAB BLOOD ORDERABLES Final R esult Performing Organization Address City/[facility]/ZIP Co de Phone Number [facility] [address] [place] [address], [place] [phone] * Hemoglobin A1c (07/10/2024 6:29 AM EST) Hemoglobin A1C 5.7 <6.5 % LAB CHEMISTRY METHOD 07/10/2024 1:42 PM EST [facility] Mean Bld Glu Estim. 117 mg/dL LAB CHEMISTRY METHOD 07/10/2024 1:42 PM EST [facility] Blood Venous blood specimen / Unknown Venipuncture / Unknown 07/10/2024 6:29 AM EST 07/10/2024 9:00 AM EST Lloyd Jernigan MD LAB BLOOD ORDERABLES Final R esult [facility] [address] [place] [address], [place] [phone] documented in this encounter Visit Diagnoses Diagnosis Unspecified dementia, unspecified severity, without behavioral disturbance, psychotic disturbance, mood disturbance, and anxiety (CMS/HCC V24, CMS/HCC V28) documented in this encounter Care Teams Junior Art Director Relationship Specialty Start Date End Date Amina Burciaga MD [address] [place] [address] PCP - General Hospitalist Medicine 09/11/24 documented as of this encounter
--- OUTSIDE RECORDS SUMMARY | 2025-05-24 07:15 | XMS_ITS | Encounter Summary ---
Author Organization [facility] Address [address] [place] [address] Phone Care Team Providers Care Ultrasound Specialist Name Role Phone Dandre Chavez MD Primary Care Provider [phone] Miguel Enciso MD Unavailable [phone] Encounter Details Date Type Department Care Team (Late st Contact Info) Description 12/20/2022 Procedure Pass Non-Invasive Cardiology [address] [place], [place] [id number] Social History Tobacco Use Types Packs/Day Years [...] on filedocumented in this encounter Care Teams Ultrasound Specialist Relationship Specialty Start Date End Date Dandre Chavez MD [address] [place] [address] [id number] PCP - General 09/05/17 Miguel Enciso MD [address] [place] [address], [address] [place], [place] [phone] Cardiology 05/28/24 documented as of this encounter Additional Source Comments The information contained in this document represents components of the legal health record. It is not the complete legal health record.[facility]
--- OUTSIDE RECORDS SUMMARY | 2025-05-24 07:15 | XMS_ITS | Encounter Summary ---
Author Organization [facility] Address [address] [place] [address] Care Team Providers Care Technical Sales Engineer Name Role Phone Amina Burciaga MD Primary Care Provider [phone] Encounter Details Date Type Department Care Team (Latest Contact Info) Description 09/11/[address] [facility] - Main Lab 299 [facility] [place] [address] Amina Burciaga MD [address] [place] [address] Other adjunct faculty for medical terminology (current) drug therapy; Type 2 diabetes mellitus [...] COUNT Routine 09/11/2024 9:47 AM EST Other adjunct faculty for medical terminology (current) drug therapy Type 2 diabetes mellitus without complications (CMS/HCC) Heart failure, unspecified (CMS/HCC) MAGNESIUM Routine 09/11/2024 9:47 AM EST Other shelter (current) drug therapy Type 2 diabetes mellitus without complications (CMS/HCC) Heart failure, unspecified (CMS/HCC) BASIC METABOLIC PANEL Routine 09/11/2024 9:47 AM EST Other shelter (current) drug therapy Type 2 diabetes mellitus without complications (CMS/HCC) Heart failure, unspecified (CMS/HCC) documented in this encounter Results * Magnesium (09/11/2024 9:47 AM EST) [facility] Magnesium 2.1 1.9 - 2.6 mg/dL LAB CHEMISTRY METHOD 09/11/2024 12:[address] [facility] Blood Venous blood specimen / Unknown Venipuncture / Unknown 09/11/2024 9:47 AM EST 09/11/2024 11:29 AM EST Amina Burciaga MD LAB BLOOD ORDERABLES Final Resul t [facility] [address] [place] [address], * (ABNORMAL) Basic metabolic panel (09/11/2024 9:47 AM EST) [facility] Sodium 137 133 - 145 mmol/L LAB CHEMISTRY METHOD 09/11/2024 12:[address] [facility] Potassium 3.9 3.5 - 5.5 mmol/L LAB CHEMISTRY METHOD 09/11/2024 12:[address] [facility] Chloride 103 96 - 110 mmol/L LAB CHEMISTRY METHOD 09/11/2024 12:[address] [facility] CO2 26 21 - 32 mmol/L LAB CHEMISTRY METHOD 09/11/2024 12:[address] [facility] Anion Gap 8 3 - 11 LAB CHEMISTRY METHOD 09/11/2024 12:[address] [facility] Glucose 112(H) 70 - 100 mg/dL LAB CHEMISTRY METHOD 09/11/2024 12:[address] [facility] BUN 50(H) 5 - 25 mg/dL LAB CHEMISTRY METHOD 09/11/2024 12:[address] [facility] Creatinine 2.73(H) 0.50 - 1.10 mg/dL LAB CHEMISTRY METHOD 09/11/2024 12:[address] [facility] eGFR 17(L) >=60 mL/min/1. 73m2 LAB CHEMISTRY METHOD 09/11/2024 12:[address] [facility] Comment:Calculation based on the Chronic Kidney Disease Epidemiology Collaboration (CKD-EPI) equation refit without adjustment for race. BUN/Creatinine Ratio 18.3 LAB CHEMISTRY METHOD 09/11/2024 12:[address] [facility] Calcium 8.6 8.5 - 10.5 mg/dL LAB CHEMISTRY METHOD 09/11/2024 12:[address] [facility] Blood Venous blood specimen / Unknown Venipuncture / Unknown 09/11/2024 9:47 AM EST 09/11/2024 11:29 AM EST Amina Burciaga MD LAB BLOOD ORDERABLES Final Resul t [facility] [address] [place] [address], * (ABNORMAL) Complete blood count (09/11/2024 9:47 AM EST) WBC 6.9 4.8 - 10.8 K/mcL LAB HEMETOLOGY METHOD 09/11/2024 11:[address] [facility] RBC 3.10(L) 3.80 - 4.80 M/mcL LAB HEMETOLOGY METHOD 09/11/2024 11:[address] [facility] Hemoglobin 9.0(L) 11.5 - 16.0 g/dL LAB HEMETOLOGY METHOD 09/11/2024 11:[address] [facility] Hematocrit 31.6(L) 35.0 - 47.0 % LAB HEMETOLOGY METHOD 09/11/2024 11:[address] [facility] MCV 102.6(H) 79.0 - 98.0 FL LAB HEMETOLOGY METHOD 09/11/2024 11:47 AM EST [facility] MCH 29.2 27.0 - 32.0 pcg LAB HEMETOLOGY METHOD 09/11/2024 11:[address] [facility] MCHC 28.5(L) 32.0 - 37.0 g/dL LAB HEMETOLOGY METHOD 09/11/2024 11:47 AM EST [facility] RDW 20.6(H) 11.0 - 15.0 % LAB HEMETOLOGY METHOD 09/11/2024 11:47 AM EST [facility] Platelets 180 130 - 400 K/mcL LAB HEMETOLOGY METHOD 09/11/2024 11:[address] [facility] MPV 9.9 7.0 - 11.0 FL LAB HEMETOLOGY METHOD 09/11/2024 11:47 AM EST [facility] NRBC 0.0 <1.0 % LAB HEMETOLOGY METHOD 09/11/2024 11:[address] [facility] NRBC Absolute 0.00 <0.10 K/mcL LAB HEMETOLOGY METHOD 09/11/2024 11:[address] [facility] Blood Venous blood specimen / Unknown Venipuncture / Unknown 09/11/2024 9:47 AM EST 09/11/2024 11:29 AM EST us Amnia Burciaga MD LAB BLOOD ORDERABLES Final Resul t [facility] [address] [place] [address], documented in this encounter Visit Diagnoses Diagnosis Other shelter (current) drug therapy Type 2 diabetes mellitus without complications (CMS/HCC V24, CMS/HCC V28) Heart failure, unspecified (CMS/HCC V24, CMS/HCC V28) Heart failure, unspecified documented in this encounter Care Teams Technical Sales Engineer Relationship Specialty Start Date End Date Amina Burciaga MD [address] [place] [address] PCP - General Hospitalist Medicine 09/11/24 documented as of this encounter
--- OUTSIDE RECORDS SUMMARY | 2025-05-24 07:15 | XMS_ITS | Encounter Summary ---
Author Organization [facility], Address [address] [place] [address] Phone Care Team Providers Care Adjunct Business Instructor Name Role Phone Dandre Chavez MD Primary Care Provider [phone] Encounter Details Date Type Department Care Team (Late st Contact Info) Description 02/09/2022 Documentation Only [facility], [address] [place] [address] Faina Villegas PA Social History Tobacco Use [...] on filedocumented in this encounter Care Teams Adjunct Business Instructor Relationship Specialty Start Date End Date Dandre Chavez MD [address] [place] [address], [address] [place], [place] PCP - General 07/07/19 documented as of this encounter
--- OUTSIDE RECORDS SUMMARY | 2025-05-24 07:15 | XMS_ITS | Encounter Summary ---
Author Organization [facility], Address [address] [place] [address] Phone Care Team Providers Care Weatherization And Housing Inspector Name Role Phone Dandre Chavez MD Primary Care Provider [phone] Encounter Details Date Type Department Care Team (Late st Contact Info) Description 10/12/2021 Documentation Only [facility], [address] [place] [address] Faina Villegas PA Social History Tobacco Use [...] on filedocumented in this encounter Care Teams Weatherization And Housing Inspector Relationship Specialty Start Date End Date Dandre Chavez MD [address] [place] [address], [address] [place], [place] PCP - General 07/07/19 documented as of this encounter
--- OUTSIDE RECORDS SUMMARY | 2025-05-24 07:15 | XMS_ITS | Encounter Summary ---
Author Organization [facility] Address [address] [place] [address] Care Team Providers Care Slab Installer Name Role Phone Amina Burciaga MD Primary Care Provider [phone] Encounter Details Date Type Department Care Team (Late st Contact Info) Description 07/27/2024 Lab Requisition [facility] - Main Lab [address] [facility] [place] [address] Hortencia Mcclellan MD [address] [id number] Type 2 diabetes mellitus without complications (CMS/HCC [...] mmol/L LAB CHEMISTRY METHOD 07/28/2024 8:47 AM [facility] Potassium 4.3 3.5 - 5.5 mmol/L LAB CHEMISTRY METHOD 07/28/2024 8:47 AM [facility] Chloride 107 96 - 110 mmol/L LAB CHEMISTRY METHOD 07/28/2024 8:47 AM [facility] CO2 25 21 - 32 mmol/L LAB CHEMISTRY METHOD 07/28/2024 8:47 AM [facility] Anion Gap 10 3 - 11 LAB CHEMISTRY METHOD 07/28/2024 8:47 AM [facility] Glucose 49(L) 70 - 100 mg/dL LAB CHEMISTRY METHOD 07/28/2024 8:47 AM [facility] BUN 45(H) 5 - 25 mg/dL LAB CHEMISTRY METHOD 07/28/2024 8:47 AM [facility] Creatinine 2.36(H) 0.50 - 1.10 mg/dL LAB CHEMISTRY METHOD 07/28/2024 8:47 AM [facility] eGFR 21(L) >=60 mL/min/1. 73m2 LAB CHEMISTRY METHOD 07/28/2024 8:47 AM [facility] Comment:Calculation based on the Chronic Kidney Disease Epidemiology Collaboration (CKD-EPI) equation refit without adjustment for race. BUN/Creatinine Ratio 19.1 LAB CHEMISTRY METHOD 07/28/2024 8:47 AM [facility] Calcium 9.2 8.5 - 10.5 mg/dL LAB CHEMISTRY METHOD 07/28/2024 8:47 AM [facility] Blood Venous blood specimen / Unknown Venipuncture / Unknown 07/28/2024 5:41 AM EST 07/28/2024 8:02 AM EST us Hortencia Mcclellan MD LAB BLOOD ORDERABLES Fin al Result [facility] [address] [place] [address], * (ABNORMAL) Complete blood count (07/28/2024 5:41 AM EST) [facility] WBC 4.1(L) 4.8 - 10.8 K/mcL LAB HEMETOLOGY METHOD 07/28/2024 8:20 AM [facility] RBC 3.00(L) 3.80 - 4.80 M/mcL LAB HEMETOLOGY METHOD 07/28/2024 8:20 AM [facility] Hemoglobin 8.6(L) 11.5 - 16.0 g/dL LAB HEMETOLOGY METHOD 07/28/2024 8:20 AM [facility] Hematocrit 29.9(L) 35.0 - 47.0 % LAB HEMETOLOGY METHOD 07/28/2024 8:20 AM [facility] MCV 99.7(H) 79.0 - 98.0 FL LAB HEMETOLOGY METHOD 07/28/2024 8:20 AM [facility] MCH 28.7 27.0 - 32.0 pcg LAB HEMETOLOGY METHOD 07/28/2024 8:20 AM [facility] MCHC 28.8(L) 32.0 - 37.0 g/dL LAB HEMETOLOGY METHOD 07/28/2024 8:20 AM [facility] RDW 19.6(H) 11.0 - 15.0 % LAB HEMETOLOGY METHOD 07/28/2024 8:20 AM [facility] Platelets 162 130 - 400 K/mcL LAB HEMETOLOGY METHOD 07/28/2024 8:20 AM [facility] MPV 10.5 7.0 - 11.0 FL LAB HEMETOLOGY METHOD 07/28/2024 8:20 AM [facility] NRBC 0.0 <1.0 % LAB HEMETOLOGY METHOD 07/28/2024 8:20 AM EST [facility] NRBC Absolute 0.00 <0.10 K/mcL LAB HEMETOLOGY METHOD 07/28/2024 8:20 AM EST [facility] Blood Venous blood specimen / Unknown Venipuncture / Unknown 07/28/2024 5:41 AM EST 07/28/2024 8:02 AM EST us Hortencia Mcclellan MD LAB BLOOD ORDERABLES Fin al Result [facility] [address] [place] [address], documented in this encounter Visit Diagnoses Diagnosis Type 2 diabetes mellitus without complications (CMS/HCC V24, CMS/HCC V28) Heart failure, unspecified (CMS/HCC V24, CMS/HCC V28) Heart failure, unspecified documented in this encounter Care Teams Slab Installer Relationship Specialty Start Date End Date Amina Burciaga MD [address] [place] [address] PCP - General Hospitalist Medicine 09/11/24 documented as of this encounter
--- OUTSIDE RECORDS SUMMARY | 2025-05-24 07:15 | XMS_ITS | Clinical Summary ---
Author Organization [facility] Address [address] [place] [address] Phone Care Team Providers Care Real Estate Office Supervisor Name Role Phone Dandre Chavez MD Primary Care Provider [phone] Miguel Enciso MD Unavailable [phone] Allergies Active Allergy Reactions Criticality Noted Date [...] Active ferrous sulfate 325 mg (65 mg [place] iron) EC tablet Take 325 mg by [...] focus on healthy food choices. 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 She is aware that this is going [...] December. She will have this completed at [facility] due to having her stress test completed [...] this topic Medical Devices Implanted Type Area Check Writer Salesperson Device Identifier Shelf Expiration Date Model / Serial / Lot Sensor Pulmonary Artery Delivery System Cardiomems - [id number] Implanted:Qt y: 1 on 04/03/2022 by Miguel Enciso MD at [facility] Implantable Monitor Left: Arterial [employer] [id number] 12/15/2023 CM PATIENT SYSTEM / [id number] / Description:Pulmonary artery Procedures Procedure Name Priority Date/Time Associated Diagnosis Comments COMPREHENSIVE METABOLIC PANEL Routine 04/18/2022 2:39 PM EDT 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 Essential hypertension Ischemic cardiomyopathy PAD (peripheral artery disease) from Last 3 Months or Most Recently Relevant to Health Maintenance Results * (ABNORMAL) Comprehensive metabolic panel (04/18/2022 2:39 PM EDT) SODIUM 143 133 - 146 mmol/L [facility] POTASSIUM 4.5 3.3 - 5.1 mmol/L [facility] CHLORIDE 100 96 - 108 mmol/L [facility] CO2 34 21 - 35 mmol/L [facility] BUN 38(H) 6 - 19 mg/dL [facility] CREATININE 1.40 0.5 - 1.5 mg/dL [facility] GLUCOSE 163(H) 70 - 99 mg/dL [facility] ALBUMIN 4.0 3.9 - 4.8 g/dL [facility] TOTAL PROTEIN 7.5 6.5 - 8.0 g/dL [facility] CALCIUM 10.1 8.4 - 10.3 mg/dL [facility] ALKALINE PHOSPHATASE 94 39 - 117 U/L [facility] TOTAL BILIRUBIN 0.6 0.0 - 1.2 mg/dL [facility] AST 26 0 - 37 U/L [facility] ALT 12 0 - 40 U/L [facility] GLOBULIN 3.5 1 - 4.8 g/dL [facility] EGFR 39(L) >59 mL/min/1.7 3m2 [facility] Comment:Estimated glomerular filtration rate calculated using the CKD-EPI refit equation. ANION GAP 14 10 - 20 mmol/L [facility] Blood 04/18/2022 2:39 PM EDT 04/18/2022 2:42 PM EDT us Miguel Enciso MD LAB BLOOD ORDERABLES Final Result [facility] [address] [place] [address] from Last 3 Months or Most Recently Relevant to Health Maintenance Insurance MEDICARE PART A & B [place] MEDICARE PREFERRED HMO REPLACEMENT [facility] [address] MEDICARE PART A & B [place] MED[place] PREFERRED HMO REPLACEMENT [facility] [place] [address] MEDICARE PART A & B Member Subscriber Plan / Payer (Ef fective 2012-Present) Name:Amina Zamora Member ID:[id number] Relation to Subscriber:Self Name:Amina Zamora Subscriber ID:[id number] Payer ID:[id number] Group ID:Not on file Type:Medicare Address: [employer] [address] [place] [id number] [facility] MEDICARE PREFERRED HMO REPLACEMENT MEDICARE PART A & B [place] MED[place] PREFERRED HMO REPLACEMENT MEDICARE PART A & B [place] MED[place] PREFERRED HMO REPLACEMENT [facility] MEDICARE PART A & B [place] MEDICARE PREFERRED HMO REPLACEMENT MEDICARE PART A & B [place] PREFERRED HMO REPLACEMENT [facility] MEDICARE PART A & B [place] MEDICARE PREFERRED HMO REPLACEMENT [facility] MEDICARE PART A & B [place] MEDICARE PREFERRED HMO REPLACEMENT [facility] Care Teams Real Estate Office Supervisor Relationship Specialty Start Date End Date Dandre Chavez MD [address] [place] [address] PCP - General 09/05/17 Miguel Enciso MD [address] [place] [id number] [email or web address] Cardiology 05/28/24 Additional Source Comments The information contained in this document represents components of the legal health record. It is not the complete legal health record.[facility]
--- OUTSIDE RECORDS SUMMARY | 2025-05-24 07:15 | XMS_ITS | Encounter Summary ---
Author Organization [facility] Address [address] [place] [address] Care Team Providers Care Inside Sales Administrator Name Role Phone Amina Burciaga MD Primary Care Provider [phone] Encounter Details Date Type Department Care Team (Late st Contact Info) Description 07/20/2024 Lab Requisition [facility] - Main Lab 299 [facility] [place] [address] Hortencia Mcclellan MD 819 [facility] 1 [place], [place] [id number] Type 2 diabetes mellitus without complications (CMS/HCC [...] mmol/L LAB CHEMISTRY METHOD 07/21/2024 8:50 AM [facility] LAB Potassium 4.5 3.5 - 5.5 mmol/L LAB CHEMISTRY METHOD 07/21/2024 8:50 AM [facility] Chloride 108 96 - 110 mmol/L LAB CHEMISTRY METHOD 07/21/2024 8:50 AM [facility] LAB CO2 27 21 - 32 mmol/L LAB CHEMISTRY METHOD 07/21/2024 8:50 AM [facility] LAB Anion Gap 5 3 - 11 LAB CHEMISTRY METHOD 07/21/2024 8:50 AM [facility] LAB Glucose 71 70 - 100 mg/dL LAB CHEMISTRY METHOD 07/21/2024 8:50 AM [facility] BUN 68(H) 5 - 25 mg/dL LAB CHEMISTRY METHOD 07/21/2024 8:50 AM [facility] Creatinine 3.00(H) 0.50 - 1.10 mg/dL LAB CHEMISTRY METHOD 07/21/2024 8:50 AM [facility] LAB eGFR 16(L) >=60 mL/min/1. 73m2 LAB CHEMISTRY METHOD 07/21/2024 8:50 AM [facility] Comment:Calculation based on the Chronic Kidney Disease Epidemiology Collaboration (CKD-EPI) equation refit without adjustment for race. BUN/Creatinine Ratio 22.7 LAB CHEMISTRY METHOD 07/21/2024 8:50 AM [facility] Calcium 9.1 8.5 - 10.5 mg/dL LAB CHEMISTRY METHOD 07/21/2024 8:50 AM [facility] Blood Venous blood specimen / Unknown Venipuncture / Unknown 07/21/2024 5:53 AM EST 07/21/2024 7:55 AM EST us Hortencia Mcclellan MD LAB BLOOD ORDERABLES Fin al Result [facility] LAB [address] [place] [address], * (ABNORMAL) Complete blood count (07/21/2024 5:53 AM EST) [facility] WBC 5.0 4.8 - 10.8 K/mcL LAB HEMETOLOGY METHOD 07/21/2024 8:26 AM [facility] RBC 2.90(L) 3.80 - 4.80 M/mcL LAB HEMETOLOGY METHOD 07/21/2024 8:26 AM [facility] Hemoglobin 8.2(L) 11.5 - 16.0 g/dL LAB HEMETOLOGY METHOD 07/21/2024 8:26 AM [facility] Hematocrit 29.0(L) 35.0 - 47.0 % LAB HEMETOLOGY METHOD 07/21/2024 8:26 AM [facility] LAB MCV 100.7(H) 79.0 - 98.0 FL LAB HEMETOLOGY METHOD 07/21/2024 8:26 AM [facility] LAB MCH 28.5 27.0 - 32.0 pcg LAB HEMETOLOGY METHOD 07/21/2024 8:26 AM [facility] LAB MCHC 28.3(L) 32.0 - 37.0 g/dL LAB HEMETOLOGY METHOD 07/21/2024 8:26 AM [facility] LAB RDW 19.2(H) 11.0 - 15.0 % LAB HEMETOLOGY METHOD 07/21/2024 8:26 AM [facility] LAB Platelets 223 130 - 400 K/mcL LAB HEMETOLOGY METHOD 07/21/2024 8:26 AM [facility] LAB MPV 10.0 7.0 - 11.0 FL LAB HEMETOLOGY METHOD 07/21/2024 8:26 AM [facility] LAB NRBC 0.0 <1.0 % LAB HEMETOLOGY METHOD 07/21/2024 8:26 AM EST [facility] LAB NRBC Absolute 0.00 <0.10 K/mcL LAB HEMETOLOGY METHOD 07/21/2024 8:26 AM EST [facility] LAB Blood Venous blood specimen / Unknown Venipuncture / Unknown 07/21/2024 5:53 AM EST 07/21/2024 7:55 AM EST us Hortencia Mcclellan MD LAB BLOOD ORDERABLES Fin al Result [facility] LAB [address] [place] [address], documented in this encounter Visit Diagnoses Diagnosis Type 2 diabetes mellitus without complications (CMS/HCC V24, CMS/HCC V28) Heart failure, unspecified (CMS/HCC V24, CMS/HCC V28) Heart failure, unspecified documented in this encounter Care Teams Inside Sales Administrator Relationship Specialty Start Date End Date Amina Burciaga MD [address] [place] [address] PCP - General Hospitalist Medicine 09/11/24 documented as of this encounter
--- OUTSIDE RECORDS SUMMARY | 2025-05-24 07:15 | XMS_ITS | Encounter Summary ---
Author Organization [facility] Address [address] [place] [address] Care Team Providers Care Brim Pouncer Name Role Phone Amina Burciaga MD Primary Care Provider [phone] Encounter Details Date Type Department Care Team (Late st Contact Info) Description 07/23/2024 Lab Requisition [facility] - Main Lab [address] [place] [address] Hortencia Mcclellan MD [address] [id number] Chronic kidney disease, unspecified; Type 2 diabetes [...] mmol/L LAB CHEMISTRY METHOD 07/23/2024 9:13 AM [facility] CO2 27 21 - 32 mmol/L LAB CHEMISTRY METHOD 07/23/2024 9:13 AM [facility] LAB Anion Gap 6 3 - 11 LAB CHEMISTRY METHOD 07/23/2024 9:13 AM [facility] LAB Glucose 64(L) 70 - 100 mg/dL LAB CHEMISTRY METHOD 07/23/2024 9:13 AM [facility] BUN 62(H) 5 - 25 mg/dL LAB CHEMISTRY METHOD 07/23/2024 9:13 AM [facility] LAB Creatinine 2.70(H) 0.50 - 1.10 mg/dL LAB CHEMISTRY METHOD 07/23/2024 9:13 AM [facility] LAB eGFR 18(L) >=60 mL/min/1. 73m2 LAB CHEMISTRY METHOD 07/23/2024 9:13 AM [facility] Comment:Calculation based on the Chronic Kidney Disease Epidemiology Collaboration (CKD-EPI) equation refit without adjustment for race. BUN/Creatinine Ratio 23.0 LAB CHEMISTRY METHOD 07/23/2024 9:13 AM [facility] Calcium 9.2 8.5 - 10.5 mg/dL LAB CHEMISTRY METHOD 07/23/2024 9:13 AM [facility] LAB Blood Venous blood specimen / Unknown Venipuncture / Unknown 07/23/2024 5:52 AM EST 07/23/2024 8:17 AM EST us Hortencia Mcclellan MD LAB BLOOD ORDERABLES Fin al Result [facility] [address] [place] [address], documented in this encounter Visit Diagnoses Diagnosis Chronic kidney disease, unspecified Type 2 diabetes mellitus without complications (CMS/HCC V24, CMS/HCC V28) documented in this encounter Care Teams Brim Pouncer Relationship Specialty Start Date End Date Amina Burciaga MD [address] [place] [address] PCP - General Hospitalist Medicine 09/11/24 documented as of this encounter
--- OUTSIDE RECORDS SUMMARY | 2025-05-24 07:15 | XMS_ITS | Encounter Summary ---
Author Organization [facility] Address [address] [place] [address] Phone Care Team Providers Care Brazing Machine Tender Name Role Phone Dandre Chavez MD Primary Care Provider [phone] Miguel Enciso MD Unavailable Encounter Details Date Type Department Care Team (Late st Contact Info) Description 08/18/2021 Procedure Pass Echo [facility] [address] [id number] Social History Tobacco Use Types Packs/Day Years [...] on filedocumented in this encounter Care Teams Brazing Machine Tender Relationship Specialty Start Date End Date Dandre Chavez MD [address] [place] [id number] PCP - General 09/05/17 Miguel Enciso MD [address] [facility], [address] [place], [place] [phone] Cardiology 05/28/24 documented as of this encounter Additional Source Comments The information contained in this document represents components of the legal health record. It is not the complete legal health record.[facility]
--- OUTSIDE RECORDS SUMMARY | 2025-05-24 07:15 | XMS_ITS | Encounter Summary ---
Author Organization [facility], Address [address] [place] [address] Phone Care Team Providers Care Central Sterile Supply Technician Name Role Phone Dandre Chavez MD Primary Care Provider [phone] Encounter Details Date Type Department Care Team (Late st Contact Info) Description 12/31/2022 Documentation Only [facility], [address] [place] [address] Melissa Delgadillo [address] [place] [phone] Social History Tobacco Use Types Packs/Day Years [...] on filedocumented in this encounter Care Teams Central Sterile Supply Technician Relationship Specialty Start Date End Date Dandre Chavez MD [address] [place] [address], [address] [place], [place] PCP - General 07/07/19 documented as of this encounter
--- OUTSIDE RECORDS SUMMARY | 2025-05-24 07:15 | XMS_ITS | Encounter Summary ---
Author Organization [facility] Address [address] [place], [place] [address] [place] [address] Phone Care Team Providers Care Pricing Strategist Name Role Phone Dandre Chavez MD Primary Care Provider [phone] Miguel Enciso MD Unavailable [phone] Encounter Details Date Type Department Care Team (Late st Contact Info) Description 07/01/2024 Procedure Pass [facility] [place] Cardiology Referral Images [address] [facility] [address] [place] [address] Social History Tobacco Use Types Packs/Day Years [...] on filedocumented in this encounter Care Teams Pricing Strategist Relationship Specialty Start Date End Date Dandre Chavez MD [address] [place] [address] PCP - General 09/05/17 Miguel Enciso MD [address] [place] [address] [email or web address] Cardiology 05/28/24 documented as of this encounter Additional Source Comments The information contained in this document represents components of the legal health record. It is not the complete legal health record.[facility]
--- OUTSIDE RECORDS SUMMARY | 2025-05-24 07:15 | XMS_ITS | Encounter Summary ---
Author Organization [facility] Address [address] [place] [address] Phone Care Team Providers Care Peoplesoft Hr Developer Name Role Phone Dandre Chavez MD Primary Care Provider [phone] Miguel Enciso MD Unavailable [phone] Encounter Details Date Type Department Care Team (Late st Contact Info) Description 04/03/2022 Procedure Pass [facility] 30 [place] [address] Social History Tobacco Use Types Packs/Day Years [...] on filedocumented in this encounter Care Teams Peoplesoft Hr Developer Relationship Specialty Start Date End Date Dandre Chavez MD [address] [id number] PCP - General 09/05/17 Miguel Enciso MD [address] [place] [address], [address] [place], [place] [phone] Cardiology 05/28/24 documented as of this encounter Additional Source Comments The information contained in this document represents components of the legal health record. It is not the complete legal health record.[facility]
--- OUTSIDE RECORDS SUMMARY | 2025-05-24 07:15 | XMS_ITS | Encounter Summary ---
Author Organization [facility], Address [address] [place] [address] Phone Care Team Providers Care Job Printer Name Role Phone Dandre Chavez MD Primary Care Provider [phone] Encounter Details Date Type Department Care Team (Late st Contact Info) Description 10/10/2021 Documentation Only [facility], [address] [place] [address] Faina Villegas PA Social History Tobacco Use [...] on filedocumented in this encounter Care Teams Job Printer Relationship Specialty Start Date End Date Dandre Chavez MD [address] [place] [address], [address] [place], [place] PCP - General 07/07/19 documented as of this encounter
--- OUTSIDE RECORDS SUMMARY | 2025-05-24 07:15 | XMS_ITS | Encounter Summary ---
Author Organization [facility] Address [address] [place] [address] Care Team Providers Care Adzing And Boring Machine Helper Name Role Phone Amina Burciaga MD Primary Care Provider [phone] Encounter Details Date Type Department Care Team (Late st Contact Info) Description 08/03/2024 Lab Requisition [facility] - Main Lab 299 [facility] [place] [address] Hortencia Mcclellan MD [address] [phone] Type 2 diabetes mellitus without complications (CMS/HCC [...] mmol/L LAB CHEMISTRY METHOD 08/04/2024 9:42 AM [facility] LAB Potassium 3.6 3.5 - 5.5 mmol/L LAB CHEMISTRY METHOD 08/04/2024 9:42 AM [facility] LAB Chloride 106 96 - 110 mmol/L LAB CHEMISTRY METHOD 08/04/2024 9:42 AM [facility] LAB CO2 29 21 - 32 mmol/L LAB CHEMISTRY METHOD 08/04/2024 9:42 AM [facility] LAB Anion Gap 8 3 - 11 LAB CHEMISTRY METHOD 08/04/2024 9:42 AM [facility] LAB Glucose 64(L) 70 - 100 mg/dL LAB CHEMISTRY METHOD 08/04/2024 9:42 AM [facility] BUN 44(H) 5 - 25 mg/dL LAB CHEMISTRY METHOD 08/04/2024 9:42 AM [facility] LAB Creatinine 2.43(H) 0.50 - 1.10 mg/dL LAB CHEMISTRY METHOD 08/04/2024 9:42 AM [facility] LAB eGFR 20(L) >=60 mL/min/1. 73m2 LAB CHEMISTRY METHOD 08/04/2024 9:42 AM [facility] LAB Comment:Calculation based on the Chronic Kidney Disease Epidemiology Collaboration (CKD-EPI) equation refit without adjustment for race. BUN/Creatinine Ratio 18.1 LAB CHEMISTRY METHOD 08/04/2024 9:42 AM [facility] LAB Calcium 8.8 8.5 - 10.5 mg/dL LAB CHEMISTRY METHOD 08/04/2024 9:42 AM [facility] Blood Venous blood specimen / Unknown Venipuncture / Unknown 08/04/2024 6:38 AM EST 08/04/2024 8:24 AM EST us Hortencia Mcclellan MD LAB BLOOD ORDERABLES Fin al Result [facility] LAB [address] [place] [address], * (ABNORMAL) Complete blood count (08/04/2024 6:38 AM EST) [facility] WBC 4.5(L) 4.8 - 10.8 K/mcL LAB HEMETOLOGY METHOD 08/04/2024 9:19 AM [facility] LAB RBC 3.20(L) 3.80 - 4.80 M/mcL LAB HEMETOLOGY METHOD 08/04/2024 9:19 AM [facility] Hemoglobin 9.0(L) 11.5 - 16.0 g/dL LAB HEMETOLOGY METHOD 08/04/2024 9:19 AM [facility] LAB Hematocrit 31.8(L) 35.0 - 47.0 % LAB HEMETOLOGY METHOD 08/04/2024 9:19 AM [facility] LAB MCV 100.0(H) 79.0 - 98.0 FL LAB HEMETOLOGY METHOD 08/04/2024 9:19 AM [facility] LAB MCH 28.3 27.0 - 32.0 pcg LAB HEMETOLOGY METHOD 08/04/2024 9:19 AM [facility] LAB MCHC 28.3(L) 32.0 - 37.0 g/dL LAB HEMETOLOGY METHOD 08/04/2024 9:19 AM [facility] LAB RDW 18.9(H) 11.0 - 15.0 % LAB HEMETOLOGY METHOD 08/04/2024 9:19 AM [facility] LAB Platelets 188 130 - 400 K/mcL LAB HEMETOLOGY METHOD 08/04/2024 9:19 AM [facility] LAB MPV 10.6 7.0 - 11.0 FL LAB HEMETOLOGY METHOD 08/04/2024 9:19 AM [facility] LAB NRBC 0.0 <1.0 % LAB HEMETOLOGY METHOD 08/04/2024 9:19 AM EST [facility] LAB NRBC Absolute 0.00 <0.10 K/mcL LAB HEMETOLOGY METHOD 08/04/2024 9:19 AM EST [facility] LAB Blood Venous blood specimen / Unknown Venipuncture / Unknown 08/04/2024 6:38 AM EST 08/04/2024 8:24 AM EST us Hortencia Mcclellan MD LAB BLOOD ORDERABLES Fin al Result [facility] LAB [address] [place] [address], documented in this encounter Visit Diagnoses Diagnosis Type 2 diabetes mellitus without complications (CMS/HCC V24, CMS/HCC V28) Heart failure, unspecified (CMS/HCC V24, CMS/HCC V28) Heart failure, unspecified documented in this encounter Care Teams Adzing And Boring Machine Helper Relationship Specialty Start Date End Date Amina Burciaga MD [address] [place] [address] PCP - General Hospitalist Medicine 09/11/24 documented as of this encounter
--- OUTSIDE RECORDS SUMMARY | 2025-05-24 07:15 | XMS_ITS | Encounter Summary ---
Author Organization [facility], Address [address] [place] [address] Phone Care Team Providers Care Measurement And Verification Engineer Name Role Phone Dandre Chavez MD Primary Care Provider [phone] Encounter Details Date Type Department Care Team (Late st Contact Info) Description 02/08/2022 Documentation Only [facility], [address] [place] [address] Faina Villegas PA Social History Tobacco Use [...] on filedocumented in this encounter Care Teams Measurement And Verification Engineer Relationship Specialty Start Date End Date Dandre Chavez MD [address] [place] [address], [address] [place], [place] PCP - General 07/07/19 documented as of this encounter
[2025-05-24 07:30] LABS: Hematocrit 31.3 % (37.0-47.0); Hemoglobin 9.2 g/dl (12.0-16.0); Imm Gran Abs Auto 0.02 X10*3/uL (0.00-0.03); Imm Gran Pct Auto 0.3 % (0.0-0.4); Lymphocytes Absolute Auto 0.4 X10*3/uL (1.2-4.9); Mean Corpuscular HGB Conc 29.4 g/dl (31.0-35.0); Mean Corpuscular Hemoglobin 26.7 pg (27.0-33.0); Mean Corpuscular Volume 91.0 fL (80.0-98.0); NRBC Abs Auto 0.000 X10*3/uL (0.0-0.012); NRBC Pct Auto 0.0 /100WBC (0.0-0.2); Platelet Count 201 X10*3/uL (160-400); Red Blood Count 3.44 X10*6/uL (4.20-5.50); White Blood Count 5.9 X10*3/uL (4.8-10.8)
[2025-05-24 07:33] LABS: Anion Gap 17 (12-20); Blood Urea Nitrogen 106 mg/dL (9-16); Calcium 9.2 mg/dL (8.4-10.2); Carbon Dioxide 32 mmol/L (22-29); Chloride 94 mmol/L (96-108); Estimated Glomerular Filt Rate 14; Sodium 140 mmol/L (135-145)
[2025-05-24 08:12] LABS: Potassium 2.6 mmol/L (3.3-5.1)
== END 2025-05-24 07:13 | disposition home or self-care (01) ==
LOC: HO.MMNH2L 07:12
PROVIDERS: Visit Provider Student in an Organized Health Care Education/Training Program
DX: I50.9 Heart failure, unspecified (principal)
CPT/HCPCS: 36415; 80048; 85025

== ENCOUNTER 2025-05-26 05:22 | Outpatient (REF) | payer MEDICARE, SELFPAY ==
--- OUTSIDE RECORDS SUMMARY | 2018-12-31 05:05 | XMS_ITS | Continuity of Care Document ---
Author Organization [facility] Address [address] [address] Phone Care Team Providers Care Team Coordinator Name Role Phone Brodie Hinds DO Unavailable Unavailable Advance Directives Directive Yes / No Effective Date File Name No Information Encounters Encounter Description Practice Location Reason(s) For Visit Diagnoses Date Provider [facility], [address], [id number], [place] tel:[phone] [address] [place] [address] No Information 2018 Guzman Calloway. [address] [place] [address], [id number], [place]. tel:[phone] Family History Family Member Type Diagnosis Age [...]
--- OUTSIDE RECORDS SUMMARY | 2025-05-26 05:24 | XMS_ITS | Clinical Summary ---
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 DIAGNOSTIC USE: The [place] Diabetes Association (ADA) and the World Health [...] Supplement 1 Testing performed or reported by [facility], a Service of [address] [address] Louis Fry MD, Retail Team Leader [facility]# [id number] Blood specimen (specimen) Venous blood / Unknown 10/18/2022 2:34 PM EST 10/18/2022 2:35 PM EST us Faina LUCIANO LAB BLOOD ORDERABLES Final Res ult [facility] from Last 3 Months or Most Recently Relevant to Health Maintenance Insurance Medicare [facility] [place] [id number] Care Teams Limousine And Hearse Upholsterer Relationship Specialty Start Date End Date Dandre Chavez MD [address] [place] [address], [address] [place] PCP - General 07/07/19
--- OUTSIDE RECORDS SUMMARY | 2025-05-26 05:25 | XMS_ITS | Encounter Summary ---
Author Organization [facility], Address [address] [place] [address] Phone Care Team Providers Care Traverse Rod Assembler Name Role Phone Dandre Chavez MD Primary Care Provider [phone] Encounter Details Date Type Department Care Team (Late st Contact Info) Description 01/08/2025 Documentation Only [facility], [address] [place] [address] Radha Chatterjee [place] [address] [place] [phone] Social History Tobacco Use Types Packs/Day Years [...] on filedocumented in this encounter Care Teams Traverse Rod Assembler Relationship Specialty Start Date End Date Dandre Chavez MD [address] [place] [address], [address] [place], [place] PCP - General 07/07/19 documented as of this encounter
--- OUTSIDE RECORDS SUMMARY | 2025-05-26 05:25 | XMS_ITS | Encounter Summary ---
Author Organization [facility] Address [address] [place] [address] Care Team Providers Care Roll Coating Machine Operator Name Role Phone Amina Burciaga MD Primary Care Provider [phone] Encounter Details Date Type Department Care Team (Late st Contact Info) Description 08/10/2024 Lab Requisition [facility] - Main Lab 299 [facility] [place] [address] Hortencia Mcclellan MD [address] [phone] Type 2 diabetes mellitus without complications (CMS/HCC [...] unspecified documented in this encounter Care Teams Roll Coating Machine Operator Relationship Specialty Start Date End Date Amina Burciaga MD [address] [place] [address] PCP - General Hospitalist Medicine 09/11/24 documented as of this encounter
--- OUTSIDE RECORDS SUMMARY | 2025-05-26 05:25 | XMS_ITS | Encounter Summary ---
Author Organization [facility] Address [address] [place] [address] Phone Care Team Providers Care Early Childhood Specialist Name Role Phone Dandre Chavez MD Primary Care Provider [phone] Miguel Enciso MD Unavailable [phone] Encounter Details Date Type Department Care Team (Late st Contact Info) Description 09/18/2019 Ancillary Orders [facility] [address] 3[address] Floor [place], [place] [phone] Miguel Enciso MD [address] [place] [address], [address] [place], [place] [phone] [email or web address] PVD (peripheral vascular disease) Social History [...] MD - 09/21/2019 See scanned document. us Mgiuel Enciso MD CV US VASCULAR Final Resul t documented in this encounter Visit Diagnoses Diagnosis PAD (peripheral artery disease) Unspecified peripheral vascular disease PVD (peripheral vascular disease) Unspecified peripheral vascular disease PVD (peripheral vascular disease) Unspecified peripheral vascular disease documented in this encounter Care Teams Early Childhood Specialist Relationship Specialty Start Date End Date Dandre Chavez MD [address] [place] [address] PCP - General 09/05/17 Miguel Enciso MD [address] [place] [address] [address] [place] [address] Cardiology 05/28/24 documented as of this encounter Additional Source Comments The information contained in this document represents components of the legal health record. It is not the complete legal health record.[facility]
--- OUTSIDE RECORDS SUMMARY | 2025-05-26 05:25 | XMS_ITS | Encounter Summary ---
Author Organization [facility] Address [address] [place], [place] [address] [place] [address] Phone Care Team Providers Care Straight Pin Making Machine Operator Name Role Phone Dandre Chavez MD Primary Care Provider [phone] Miguel Enciso MD Unavailable [phone] Encounter Details Date Type Department Care Team (Late st Contact Info) Description 07/01/2024 Procedure Pass [facility] Cardiology Referral Images [address] [facility] [address] [place] [address] Social History Tobacco Use Types Packs/Day Years [...] on filedocumented in this encounter Care Teams Straight Pin Making Machine Operator Relationship Specialty Start Date End Date Dandre Chavez MD [address] [place] [address] PCP - General 09/05/17 Miguel Enciso MD [address] [place] [address] [email or web address] Cardiology 05/28/24 documented as of this encounter Additional Source Comments The information contained in this document represents components of the legal health record. It is not the complete legal health record.[facility]
--- OUTSIDE RECORDS SUMMARY | 2025-05-26 05:25 | XMS_ITS | Encounter Summary ---
Author Organization [facility], Address [address] [place] [address] Phone Care Team Providers Care Labels Molder Name Role Phone Dandre Chavez MD Primary Care Provider [phone] Encounter Details Date Type Department Care Team (Late st Contact Info) Description 08/06/2023 Documentation Only [facility], [address] [place] [address] Desi Rodriguez Social History Tobacco Use Types [...] on filedocumented in this encounter Care Teams Labels Molder Relationship Specialty Start Date End Date Dandre Chavez MD [address] [place] [address], [address] [place], [place] PCP - General 07/07/19 documented as of this encounter
--- OUTSIDE RECORDS SUMMARY | 2025-05-26 05:25 | XMS_ITS | Encounter Summary ---
Author Organization [facility], Address [address] [place] [address] Phone Care Team Providers Care Emergency Department Coordinator Name Role Phone Dandre Chavez MD Primary Care Provider [phone] Encounter Details Date Type Department Care Team (Late st Contact Info) Description 12/31/2022 Documentation Only [facility], [address] [place] [address] Melissa Delgadillo [address] [place] [phone] Social History Tobacco Use Types Packs/Day Years [...] on filedocumented in this encounter Care Teams Emergency Department Coordinator Relationship Specialty Start Date End Date Dandre Chavez MD [address] [place] [address], [address] [place], [place] PCP - General 07/07/19 documented as of this encounter
--- OUTSIDE RECORDS SUMMARY | 2025-05-26 05:25 | XMS_ITS | Encounter Summary ---
Author Organization [facility], Address [address] [place] [address] Phone Care Team Providers Care Extractor Operator Name Role Phone Dandre Chavez MD Primary Care Provider [phone] Encounter Details Date Type Department Care Team (Late st Contact Info) Description 10/12/2021 Documentation Only [facility], [address] [place] [address] Faina Villegas PA Social History Tobacco Use [...] on filedocumented in this encounter Care Teams Extractor Operator Relationship Specialty Start Date End Date Dandre Chavez MD [address] [place] [address], [address] [place], [place] PCP - General 07/07/19 documented as of this encounter
--- OUTSIDE RECORDS SUMMARY | 2025-05-26 05:25 | XMS_ITS | Clinical Summary ---
Author Organization [facility] Address [address] [place] [address] Care Team Providers Care Transport Technician Name Role Phone Dandre Chavez MD Primary Care Provider [phone] Allergies Active Allergy Reactions Criticality Noted Date [...] age to complete this topic Care Teams Transport Technician Relationship Specialty Start Date End Date Dandre Chavez MD [address] [place] [address] [place] [id number] PCP - General Internal Medicine 11/06/22
--- OUTSIDE RECORDS SUMMARY | 2025-05-26 05:25 | XMS_ITS | Encounter Summary ---
Author Organization [facility], Address [address] [place] [address] Phone Care Team Providers Care Blood Bank Credit Clerk Name Role Phone Dandre Chavez MD Primary Care Provider [phone] Encounter Details Date Type Department Care Team (Late st Contact Info) Description 02/08/2022 Documentation Only [facility], [address] [place] [address] Faina Villegas PA Social History Tobacco Use [...] on filedocumented in this encounter Care Teams Blood Bank Credit Clerk Relationship Specialty Start Date End Date Dandre Chavez MD [address] [place] [address], [address] [place], [place] PCP - General 07/07/19 documented as of this encounter
--- OUTSIDE RECORDS SUMMARY | 2025-05-26 05:25 | XMS_ITS | Encounter Summary ---
Author Organization [facility] Address [address] [place] [address] Phone Care Team Providers Care Split Leather Department Supervisor Name Role Phone Dandre Chavez MD Primary Care Provider [phone] Miguel Enciso MD Unavailable [phone] Encounter Details Date Type Department Care Team (Late st Contact Info) Description 12/20/2022 Procedure Pass Non-Invasive Cardiology [address] [place], [place] [phone] Social History Tobacco Use Types Packs/Day Years [...] on filedocumented in this encounter Care Teams Split Leather Department Supervisor Relationship Specialty Start Date End Date Dandre Chavez MD [address] [place] [id number] PCP - General 09/05/17 Miguel Enciso MD [address] [place] [address], [address] [place], [place] [phone] Cardiology 05/28/24 documented as of this encounter Additional Source Comments The information contained in this document represents components of the legal health record. It is not the complete legal health record.[facility]
--- OUTSIDE RECORDS SUMMARY | 2025-05-26 05:25 | XMS_ITS | Encounter Summary ---
Author Organization [facility] Address [address] [place] [address] Care Team Providers Care Emergency Physician Name Role Phone Amina Burciaga MD Primary Care Provider [phone] Encounter Details Date Type Department Care Team (Late st Contact Info) Description 07/23/[address] [facility] - Main Lab [address] [place] [address] Hortencia Mcclellan MD [address] [id number] Chronic kidney disease, unspecified; Type 2 diabetes [...] Result [facility] [address] [place] [address], documented in this encounter Visit Diagnoses Diagnosis Chronic kidney disease, unspecified Type 2 diabetes mellitus without complications (CMS/HCC V24, CMS/HCC V28) documented in this encounter Care Teams Emergency Physician Relationship Specialty Start Date End Date Amina Burciaga MD [address] [place] [address] PCP - General Hospitalist Medicine 09/11/24 documented as of this encounter
--- OUTSIDE RECORDS SUMMARY | 2025-05-26 05:25 | XMS_ITS | Encounter Summary ---
Author Organization [facility], Address [address] [place] [address] Phone Care Team Providers Care Commercial Crabber Name Role Phone Dandre Chavez MD Primary Care Provider [phone] Encounter Details Date Type Department Care Team (Late st Contact Info) Description 08/02/2022 Documentation Only [facility], [address] [place] [address] Faina Villegas PA Social History Tobacco Use [...] filedocumented in this encounter Care Teams Commercial Crabber Relationship Specialty Start Date End Date aDndre Chavez MD [address] [place] [address], [address] [place], [place] PCP - General 07/07/19 documented as of this encounter
--- OUTSIDE RECORDS SUMMARY | 2025-05-26 05:25 | XMS_ITS | Encounter Summary ---
Author Organization [facility] Address [address] [place] [address] Care Team Providers Care Cattle Sticker Name Role Phone Amina Burciaga MD Primary Care Provider [phone] Encounter Details Date Type Department Care Team (Late st Contact Info) Description 07/13/2024 Lab Requisition [facility] - Main Lab [address] [facility] [place] [address] Hortencia Mcclellan MD [address] [id number] Type 2 diabetes mellitus without complications (CMS/HCC [...] mmol/L LAB CHEMISTRY METHOD 07/14/2024 9:[address] [facility] Potassium 3.8 3.5 - 5.5 mmol/L LAB CHEMISTRY METHOD 07/14/2024 9:[address] [facility] Chloride 105 96 - 110 mmol/L LAB CHEMISTRY METHOD 07/14/2024 9:[address] [facility] CO2 28 21 - 32 mmol/L LAB CHEMISTRY METHOD 07/14/2024 9:[address] [facility] Anion Gap 6 3 - 11 LAB CHEMISTRY METHOD 07/14/2024 9:[address] [facility] Glucose 105(H) 70 - 100 mg/dL LAB CHEMISTRY METHOD 07/14/2024 9:[address] [facility] BUN 70(H) 5 - 25 mg/dL LAB CHEMISTRY METHOD 07/14/2024 9:[address] [facility] Creatinine 3.26(H) 0.50 - 1.10 mg/dL LAB CHEMISTRY METHOD 07/14/2024 9:[address] [facility] eGFR 14(L) >=60 mL/min/1. 73m2 LAB CHEMISTRY METHOD 07/14/2024 9:[address] [facility] Comment:Calculation based on the Chronic Kidney Disease Epidemiology Collaboration (CKD-EPI) equation refit without adjustment for race. BUN/Creatinine Ratio 21.5 LAB CHEMISTRY METHOD 07/14/2024 9:[address] [facility] Calcium 8.6 8.5 - 10.5 mg/dL LAB CHEMISTRY METHOD 07/14/2024 9:[address] [facility] Blood Venous blood specimen / Unknown Venipuncture / Unknown 07/14/2024 6:08 AM EST 07/14/2024 8:03 AM EST us Hortencia Mcclellan MD LAB BLOOD ORDERABLES Fin al Result [facility] [address] [place] [address], * (ABNORMAL) Complete blood count (07/14/2024 6:08 AM EST) [facility] WBC 5.3 4.8 - 10.8 K/mcL LAB HEMETOLOGY METHOD 07/14/2024 8:[address] [facility] RBC 3.00(L) 3.80 - 4.80 M/mcL LAB HEMETOLOGY METHOD 07/14/2024 8:[address] [facility] Hemoglobin 8.3(L) 11.5 - 16.0 g/dL LAB HEMETOLOGY METHOD 07/14/2024 8:[address] [facility] Hematocrit 29.9(L) 35.0 - 47.0 % LAB HEMETOLOGY METHOD 07/14/2024 8:[address] [facility] MCV 101.4(H) 79.0 - 98.0 FL LAB HEMETOLOGY METHOD 07/14/2024 8:[address] [facility] MCH 28.1 27.0 - 32.0 pcg LAB HEMETOLOGY METHOD 07/14/2024 8:[address] [facility] MCHC 27.8(L) 32.0 - 37.0 g/dL LAB HEMETOLOGY METHOD 07/14/2024 8:[address] [facility] RDW 20.0(H) 11.0 - 15.0 % LAB HEMETOLOGY METHOD 07/14/2024 8:[address] [facility] Platelets 198 130 - 400 K/mcL LAB HEMETOLOGY METHOD 07/14/2024 8:[address] [facility] MPV 10.3 7.0 - 11.0 FL LAB HEMETOLOGY METHOD 07/14/2024 8:[address] [facility] NRBC 0.0 <1.0 % LAB HEMETOLOGY METHOD 07/14/2024 8:32 AM EST [facility] NRBC Absolute 0.00 <0.10 K/mcL LAB HEMETOLOGY METHOD 07/14/2024 8:32 AM EST [facility] Blood Venous blood specimen / Unknown Venipuncture / Unknown 07/14/2024 6:08 AM EST 07/14/2024 8:03 AM EST us Hortencia Mcclellan MD LAB BLOOD ORDERABLES Fin al Result [facility] [address] [place] [address], documented in this encounter Visit Diagnoses Diagnosis Type 2 diabetes mellitus without complications (CMS/HCC V24, CMS/HCC V28) Heart failure, unspecified (CMS/HCC V24, CMS/HCC V28) Heart failure, unspecified documented in this encounter Care Teams Cattle Sticker Relationship Specialty Start Date End Date Amina Burciaga MD [address] [place] [address] PCP - General Hospitalist Medicine 09/11/24 documented as of this encounter
--- OUTSIDE RECORDS SUMMARY | 2025-05-26 05:25 | XMS_ITS | Encounter Summary ---
Author Organization [facility], Address [address] [place] [address] Phone Care Team Providers Care Informatics Physician Name Role Phone Dandre Chavez MD Primary Care Provider [phone] Encounter Details Date Type Department Care Team (Late st Contact Info) Description 09/07/2022 Documentation Only [facility], [address] [place] [address] Faina Villegas PA Social History Tobacco Use [...] on filedocumented in this encounter Care Teams Informatics Physician Relationship Specialty Start Date End Date Dandre Chavez MD [address] [place] [address], [address] [place], [place] PCP - General 07/07/19 documented as of this encounter
--- OUTSIDE RECORDS SUMMARY | 2025-05-26 05:25 | XMS_ITS | Encounter Summary ---
Author Organization [facility] Address [address] [place], [place] [address] [place] [address] Phone Care Team Providers Care Wafer Polishing Worker Name Role Phone Dandre Chavez MD Primary Care Provider [phone] Miguel Enciso MD Unavailable [phone] Encounter Details Date Type Department Care Team (Late st Contact Info) Description 07/01/2024 Procedure Pass [facility] Cardiology Referral Images [address] [facility] [address] [place] [address] Social History Tobacco Use Types Packs/Day Years [...] on filedocumented in this encounter Care Teams Wafer Polishing Worker Relationship Specialty Start Date End Date Dander Chavez MD [address] [place] [address] PCP - General 09/05/17 Miguel Enciso MD [address] [place] [address] [email or web address] Cardiology 05/28/24 documented as of this encounter Additional Source Comments The information contained in this document represents components of the legal health record. It is not the complete legal health record.[facility]
--- OUTSIDE RECORDS SUMMARY | 2025-05-26 05:25 | XMS_ITS | Encounter Summary ---
Author Organization [facility] Address [address] [place] [address] Care Team Providers Care Backroom Associate Name Role Phone Amina Burciaga MD Primary Care Provider [phone] Encounter Details Date Type Department Care Team (Latest Contact Info) Description 09/23/2024 Lab Requisition [facility] - Main Lab [address] [facility] [place] [address] Amina Burciaga MD [address] [place] [address] Type 2 diabetes mellitus with [...] MD LAB BLOOD ORDERABLES Final Resul t [facility] [address] [place] [address], * (ABNORMAL) Comprehensive metabolic panel (09/23/2024 8:20 AM EST) Pathologist [facility] Sodium 140 133 - 145 [...] MD LAB BLOOD ORDERABLES Final Resul t [facility] [address] [place] [address], * (ABNORMAL) Complete blood count (09/23/2024 8:20 AM EST) [facility] WBC 6.2 4.8 - 10.8 K/mcL [...] LAB HEMETOLOGY METHOD 09/23/2024 12:38 PM EST [facility] NRBC Absolute 0.00 <0.10 K/mcL LAB HEMETOLOGY METHOD 09/23/2024 12:38 PM EST [facility] Blood Venous blood specimen / Unknown Venipuncture / Unknown 09/23/2024 8:20 AM EST 09/23/2024 12:06 PM EST us Amina Burciaga MD LAB BLOOD ORDERABLES Final Resul t [facility] [address] [place] [address], documented in this encounter Visit Diagnoses Diagnosis Type 2 diabetes mellitus with unspecified complications (CMS/HCC V24, CMS/HCC V28) Unspecified systolic (congestive) heart failure (CMS/HCC V24, CMS/HCC V28) documented in this encounter Care Teams Backroom Associate Relationship Specialty Start Date End Date Amina Burciaga MD [address] [place] [address] PCP - General Hospitalist Medicine 09/11/24 documented as of this encounter
--- OUTSIDE RECORDS SUMMARY | 2025-05-26 05:25 | XMS_ITS | Clinical Summary ---
Author Organization [facility] Address [address] [place] [address] Phone Care Team Providers Care Broadcast Producer Name Role Phone Dandre Chavez MD Primary Care Provider [phone] Miguel Enciso MD Unavailable [phone] Allergies Active Allergy Reactions Criticality Noted Date [...] Active ferrous sulfate 325 mg (65 mg nondalton iron) EC tablet Take 325 mg by [...] focus on healthy food choices. Atherosclerosis of [place] co ronary artery of [place] heart with angina pectoris 10/28/2018 Assessment & [...] (04/14/2020 10:40 PM EDT): History of inferior CT in 2013 with a stent to her [...] LAD. She presented with a non-ST relation CT September 2018 and had a new culprit [...] will need to have this completed at [facility]. She is aware that this [...] December. She will have this completed at [facility] due to having her stress [...] this topic Medical Devices Implanted Type Area Institution Librarian Device Identifier Shelf Expiration Date Model / Serial / Lot Sensor Pulmonary Artery Delivery System Cardiomems - [id number] Implanted:Qt y: 1 on 04/03/2022 by Miguel Enciso MD at [facility] Implantable Monitor Left: Arterial [employer] [id number] 12/15/2023 CM PATIENT SYSTEM / [id number] / Description:Pulmonary artery Procedures Procedure Name Priority Date/Time Associated Diagnosis Comments COMPREHENSIVE METABOLIC PANEL Routine 04/18/2022 2:39 PM EDT Atherosclerosis of [place] coronary artery of [place] heart with angina pectoris Essential hypertension Ischemic cardiomyopathy PAD (peripheral artery disease) from Last 3 Months or Most Recently Relevant to Health Maintenance Results * (ABNORMAL) Comprehensive metabolic panel (04/18/2022 2:39 PM EDT) SODIUM 143 133 - 146 mmol/L [facility] POTASSIUM 4.5 3.3 - 5.1 mmol/L [facility] CHLORIDE 100 96 - 108 mmol/L [facility] CO2 34 21 - 35 mmol/L [facility] BUN 38(H) 6 - 19 mg/dL [facility] CREATININE 1.40 0.5 - 1.5 mg/dL [facility] GLUCOSE 163(H) 70 - 99 mg/dL [facility] ALBUMIN 4.0 3.9 - 4.8 g/dL [facility] TOTAL PROTEIN 7.5 6.5 - 8.0 g/dL [facility] CALCIUM 10.1 8.4 - 10.3 mg/dL [facility] ALKALINE PHOSPHATASE 94 39 - 117 U/L [facility] TOTAL BILIRUBIN 0.6 0.0 - 1.2 mg/dL [facility] AST 26 0 - 37 U/L [facility] ALT 12 0 - 40 U/L [facility] GLOBULIN 3.5 1 - 4.8 g/dL [facility] EGFR 39(L) >59 mL/min/1.7 3m2 [facility] Comment:Estimated glomerular filtration rate calculated using the CKD-EPI refit equation. ANION GAP 14 10 - 20 mmol/L [facility] Blood 04/18/2022 2:39 PM EDT 04/18/2022 2:42 PM EDT us Miguel Enciso MD LAB BLOOD ORDERABLES Final Result [facility] [address] [place] [address] from Last 3 Months or Most Recently Relevant to Health Maintenance Insurance MEDICARE PART A & B [place] MEDICARE PREFERRED HMO REPLACEMENT [facility] [place] [address] MEDICARE PART A & B [place] MED[place] PREFERRED HMO REPLACEMENT [facility] [address] MEDICARE PART A & B Member Subscriber Plan / Payer (Ef fective 2012-Present) Name:Amina Zamora Member ID:[id number] Relation to Subscriber:Self Name:Amina Zamora Subscriber ID:[id number] Payer ID:[id number] Group ID:Not on file Type:Medicare Address: [employer] [address] [place] [phone] [facility] MEDICARE PREFERRED HMO REPLACEMENT MEDICARE PART A & B [place] MEDICARE PREFERRED HMO REPLACEMENT MEDICARE PART A & B [place] MEDICARE PREFERRED HMO REPLACEMENT [facility] MEDICARE PART A & B [place] MEDICARE PREFERRED HMO REPLACEMENT MEDICARE PART A & B [place] MEDICARE PREFERRED HMO REPLACEMENT [facility] MEDICARE PART A & B [place] MEDICARE PREFERRED HMO REPLACEMENT [facility] MEDICARE PART A & B [place] MEDICARE PREFERRED HMO REPLACEMENT [facility] Care Teams Broadcast Producer Relationship Specialty Start Date End Date Dandre Chavez MD [address] [place] [address] PCP - General 09/05/17 Miguel Enciso MD [address] [place] [address] [email or web address] Cardiology 05/28/24 Additional Source Comments The information contained in this document represents components of the legal health record. It is not the complete legal health record.[facility]
--- OUTSIDE RECORDS SUMMARY | 2025-05-26 05:25 | XMS_ITS | Encounter Summary ---
Author Organization [facility], Address [address] [place] [address] Phone Care Team Providers Care Gis Software Developer Name Role Phone Dandre Chavez MD Primary Care Provider [phone] Encounter Details Date Type Department Care Team (Late st Contact Info) Description 01/14/2023 Documentation Only [facility], [address] [place] [address] Melissa Delgadillo [address] [place] [phone] Social History Tobacco Use Types Packs/Day Years [...] on filedocumented in this encounter Care Teams Gis Software Developer Relationship Specialty Start Date End Date Dandre Chavez MD [address] [place] [address], [address] [place], [place] PCP - General 07/07/19 documented as of this encounter
--- OUTSIDE RECORDS SUMMARY | 2025-05-26 05:25 | XMS_ITS | Encounter Summary ---
Author Organization [facility] Address [address] [place] [address] Phone Care Team Providers Care Director Patient Accounting Name Role Phone Dandre Chavez MD Primary Care Provider [phone] Miguel Enciso MD Unavailable [phone] Encounter Details Date Type Department Care Team (Late st Contact Info) Description 12/21/2022 Procedure Pass Echo Lab [address] [id number] Social History Tobacco Use Types Packs/Day Years [...] filedocumented in this encounter Care Teams Director Patient Accounting Relationship Specialty Start Date End Date Dandre Chavez MD [address] [place] [id number] PCP - General 09/05/17 Miguel Enciso MD [address] [facility], [address] [place], [place] [phone] Cardiology 05/28/24 documented as of this encounter Additional Source Comments The information contained in this document represents components of the legal health record. It is not the complete legal health record.[facility]
--- OUTSIDE RECORDS SUMMARY | 2025-05-26 05:25 | XMS_ITS | Encounter Summary ---
Author Organization [facility] Address [address] [place] [address] Phone Care Team Providers Care Jigsaw Operator Name Role Phone Dandre Chavez MD Primary Care Provider [phone] Miguel Enciso MD Unavailable [phone] Encounter Details Date Type Department Care Team (Latest Contact Info) Description 12/16/2018 Ancillary Orders Non-Invasive Cardiology [address] [place] [address] Cathy Browning NP [address] [place] [address] Atherosclerosis of [place] coronary artery of [place] heart with angina pectoris Social History Tobacco [...] AM EDT) Max BP Systolic 150 mmHg [facility] Max BP Diastolic 80 mmHg [facility] Max HR 89 BPM [facility] Resting HR 78 BPM [facility] Resting BP Systolic 150 mmHg [facility] Resting BP Diastolic 80 mmHg [facility] Peak METS 1.0 METS [facility] Peak HR 83 BPM [facility] Anatomical Region Laterality Modality Heart Other [...] this encounter Visit Diagnoses Diagnosis 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 It is not the complete legal health record.[facility]
--- OUTSIDE RECORDS SUMMARY | 2025-05-26 05:25 | XMS_ITS | Encounter Summary ---
Author Organization [facility] Address [address] [place] [address] Care Team Providers Care Mate First Name Role Phone Amina Burciaga MD Primary Care Provider [phone] Encounter Details Date Type Department Care Team (Late st Contact Info) Description 09/30/2024 Lab Requisition [facility] - Main Lab [address] [facility] [place] [address] Isaac Stark MD [address] [place] [address] [place] [address] Heart failure, unspecified [...] (ABNORMAL) Vitamin B12 (09/30/2024 9:57 AM EST) [facility] Vitamin B-12 1,028(H) 250 - 900 pcg/mL LAB CHEMISTRY METHOD 09/30/2024 1:04 PM [facility] Blood Venous blood specimen / Unknown Venipuncture / Unknown 09/30/2024 9:57 AM EST 09/30/2024 10:50 AM EST us Isaac Stark MD LAB BLOOD ORDERABLES Final Resu lt [facility] [address] [place] [address], [place] [phone] * (ABNORMAL) Comprehensive metabolic panel (09/30/2024 9:57 AM EST) [facility] Sodium 138 133 - 145 mmol/L LAB CHEMISTRY METHOD 09/30/2024 1:04 PM [facility] Potassium 3.7 3.5 - 5.5 mmol/L LAB CHEMISTRY METHOD 09/30/2024 1:04 PM [facility] Chloride 100 96 - 110 mmol/L LAB CHEMISTRY METHOD 09/30/2024 1:04 PM [facility] CO2 31 21 - 32 mmol/L LAB CHEMISTRY METHOD 09/30/2024 1:04 PM [facility] Anion Gap 7 3 - 11 LAB CHEMISTRY METHOD 09/30/2024 1:04 PM [facility] Glucose 228(H) 70 - 100 mg/dL LAB CHEMISTRY METHOD 09/30/2024 1:04 PM [facility] BUN 90(H) 5 - 25 mg/dL LAB CHEMISTRY METHOD 09/30/2024 1:04 PM [facility] Creatinine 2.19(H) 0.50 - 1.10 mg/dL LAB CHEMISTRY METHOD 09/30/2024 1:04 PM [facility] eGFR 23(L) >=60 mL/min/1. 73m2 LAB CHEMISTRY METHOD 09/30/2024 1:04 PM [facility] Comment:Calculation based on the Chronic Kidney Disease Epidemiology Collaboration (CKD-EPI) equation refit without adjustment for race. BUN/Creatinine Ratio 41.1 LAB CHEMISTRY METHOD 09/30/2024 1:04 PM [facility] Calcium 8.9 8.5 - 10.5 mg/dL LAB CHEMISTRY METHOD 09/30/2024 1:04 PM [facility] AST (SGOT) 22 10 - 42 unit/L LAB CHEMISTRY METHOD 09/30/2024 1:04 PM [facility] ALT (SGPT) 28 10 - 60 unit/L LAB CHEMISTRY METHOD 09/30/2024 1:04 PM [facility] Alkaline Phosphatase 47 42 - 121 unit/L LAB CHEMISTRY METHOD 09/30/2024 1:04 PM [facility] Total Protein 6.2 6.0 - 8.0 g/dL LAB CHEMISTRY METHOD 09/30/2024 1:04 PM [facility] Albumin 2.7(L) 3.2 - 5.0 g/dL LAB CHEMISTRY METHOD 09/30/2024 1:04 PM [facility] Total Bilirubin 0.6 0.0 - 1.4 mg/dL LAB CHEMISTRY METHOD 09/30/2024 1:04 PM [facility] Blood Venous blood specimen / Unknown Venipuncture / Unknown 09/30/2024 9:57 AM EST 09/30/2024 10:50 AM EST us Isaac Stark MD LAB BLOOD ORDERABLES Final Resu lt [facility] [address] [place] [address], * (ABNORMAL) Complete blood count (09/30/2024 9:57 AM EST) [facility] WBC 5.9 4.8 - 10.8 K/mcL LAB HEMETOLOGY METHOD 09/30/2024 12:25 PM [facility] RBC 3.80 3.80 - 4.80 M/mcL LAB HEMETOLOGY METHOD 09/30/2024 12:25 PM [facility] Hemoglobin 11.2(L) 11.5 - 16.0 g/dL LAB HEMETOLOGY METHOD 09/30/2024 12:25 PM [facility] Hematocrit 37.7 35.0 - 47.0 % LAB HEMETOLOGY METHOD 09/30/2024 12:25 PM [facility] MCV 98.2(H) 79.0 - 98.0 FL LAB HEMETOLOGY METHOD 09/30/2024 12:25 PM [facility] MCH 29.2 27.0 - 32.0 pcg LAB HEMETOLOGY METHOD 09/30/2024 12:25 PM [facility] MCHC 29.7(L) 32.0 - 37.0 g/dL LAB HEMETOLOGY METHOD 09/30/2024 12:25 PM [facility] RDW 17.7(H) 11.0 - 15.0 % LAB HEMETOLOGY METHOD 09/30/2024 12:25 PM [facility] Platelets 183 130 - 400 K/mcL LAB HEMETOLOGY METHOD 09/30/2024 12:25 PM [facility] MPV 11.7(H) 7.0 - 11.0 FL LAB HEMETOLOGY METHOD 09/30/2024 12:25 PM [facility] NRBC 0.0 <1.0 % LAB HEMETOLOGY METHOD 09/30/2024 12:25 PM [facility] NRBC Absolute 0.00 <0.10 K/mcL LAB HEMETOLOGY METHOD 09/30/2024 12:25 PM EST [facility] Blood Venous blood specimen / Unknown Venipuncture / Unknown 09/30/2024 9:57 AM EST 09/30/2024 10:50 AM EST us Isaac Stark MD LAB BLOOD ORDERABLES Final Resu lt Performing Organization Address City/[facility]/ZIP Co de Phone Number [facility] [address] [place] [address], [place] [phone] * Vitamin D 25 hydroxy (09/30/2024 9:57 AM EST) Vit D, 25-Hydroxy 54.9 30.0 - 80.0 ng/mL LAB CHEMISTRY METHOD 09/30/2024 12:48 PM EST [facility] Blood Venous blood specimen / Unknown Venipuncture / Unknown 09/30/2024 9:57 AM EST 09/30/2024 10:50 AM EST us Isaac Stark MD LAB BLOOD ORDERABLES Final Resu lt Performing Organization Address [facility]/ZIP Co de Phone Number [facility] [address] [place] [address], [place] [phone] documented in this encounter Visit Diagnoses Diagnosis Heart failure, unspecified (CMS/HCC V24, CMS/HCC V28) Heart failure, unspecified Vitamin D deficiency, unspecified documented in this encounter Care Teams Mate First Relationship Specialty Start Date End Date Amina Burciaga MD [address] [place] [phone] PCP - General Hospitalist Medicine 09/11/24 documented as of this encounter
--- OUTSIDE RECORDS SUMMARY | 2025-05-26 05:25 | XMS_ITS | Encounter Summary ---
Author Organization [facility] Address [address] [place] [address] Care Team Providers Care Welding Specialist Name Role Phone Amina Burciaga MD Primary Care Provider [phone] Encounter Details Date Type Department Care Team (Late st Contact Info) Description 08/03/2024 Lab Requisition [facility] - Main Lab [address] [facility] [place] [address] Hortencia Mcclellan MD [address] [id number] Type 2 diabetes mellitus without complications (CMS/HCC [...] mmol/L LAB CHEMISTRY METHOD 08/04/2024 9:42 AM [facility] Potassium 3.6 3.5 - 5.5 mmol/L LAB CHEMISTRY METHOD 08/04/2024 9:42 AM [facility] Chloride 106 96 - 110 mmol/L LAB CHEMISTRY METHOD 08/04/2024 9:42 AM [facility] CO2 29 21 - 32 mmol/L LAB CHEMISTRY METHOD 08/04/2024 9:42 AM [facility] Anion Gap 8 3 - 11 LAB CHEMISTRY METHOD 08/04/2024 9:42 AM [facility] Glucose 64(L) 70 - 100 mg/dL LAB CHEMISTRY METHOD 08/04/2024 9:42 AM [facility] BUN 44(H) 5 - 25 mg/dL LAB CHEMISTRY METHOD 08/04/2024 9:42 AM [facility] Creatinine 2.43(H) 0.50 - 1.10 mg/dL LAB CHEMISTRY METHOD 08/04/2024 9:42 AM [facility] eGFR 20(L) >=60 mL/min/1. 73m2 LAB CHEMISTRY METHOD 08/04/2024 9:42 AM [facility] Comment:Calculation based on the Chronic Kidney Disease Epidemiology Collaboration (CKD-EPI) equation refit without adjustment for race. BUN/Creatinine Ratio 18.1 LAB CHEMISTRY METHOD 08/04/2024 9:42 AM [facility] Calcium 8.8 8.5 - 10.5 mg/dL LAB CHEMISTRY METHOD 08/04/2024 9:42 AM [facility] Blood Venous blood specimen / Unknown Venipuncture / Unknown 08/04/2024 6:38 AM EST 08/04/2024 8:24 AM EST us Hortencia Mcclellan MD LAB BLOOD ORDERABLES Fin al Result [facility] [address] [place] [address], * (ABNORMAL) Complete blood count (08/04/2024 6:38 AM EST) [facility] WBC 4.5(L) 4.8 - 10.8 K/mcL LAB HEMETOLOGY METHOD 08/04/2024 9:19 AM [facility] RBC 3.20(L) 3.80 - 4.80 M/mcL LAB HEMETOLOGY METHOD 08/04/2024 9:19 AM [facility] Hemoglobin 9.0(L) 11.5 - 16.0 g/dL LAB HEMETOLOGY METHOD 08/04/2024 9:19 AM [facility] Hematocrit 31.8(L) 35.0 - 47.0 % LAB HEMETOLOGY METHOD 08/04/2024 9:19 AM [facility] MCV 100.0(H) 79.0 - 98.0 FL LAB HEMETOLOGY METHOD 08/04/2024 9:19 AM [facility] MCH 28.3 27.0 - 32.0 pcg LAB HEMETOLOGY METHOD 08/04/2024 9:19 AM [facility] MCHC 28.3(L) 32.0 - 37.0 g/dL LAB HEMETOLOGY METHOD 08/04/2024 9:19 AM [facility] RDW 18.9(H) 11.0 - 15.0 % LAB HEMETOLOGY METHOD 08/04/2024 9:19 AM [facility] Platelets 188 130 - 400 K/mcL LAB HEMETOLOGY METHOD 08/04/2024 9:19 AM [facility] MPV 10.6 7.0 - 11.0 FL LAB HEMETOLOGY METHOD 08/04/2024 9:19 AM [facility] NRBC 0.0 <1.0 % LAB HEMETOLOGY METHOD 08/04/2024 9:19 AM EST [facility] NRBC Absolute 0.00 <0.10 K/mcL LAB HEMETOLOGY METHOD 08/04/2024 9:19 AM EST [facility] Blood Venous blood specimen / Unknown Venipuncture / Unknown 08/04/2024 6:38 AM EST 08/04/2024 8:24 AM EST us Hortencia Mcclellan MD LAB BLOOD ORDERABLES Fin al Result [facility] ([facility]) [facility] [address] [place] [address], documented in this encounter Visit Diagnoses Diagnosis Type 2 diabetes mellitus without complications (CMS/HCC V24, CMS/HCC V28) Heart failure, unspecified (CMS/HCC V24, CMS/HCC V28) Heart failure, unspecified documented in this encounter Care Teams Welding Specialist Relationship Specialty Start Date End Date Amina Burciaga MD [address] [place] [address] PCP - General Hospitalist Medicine 09/11/24 documented as of this encounter
--- OUTSIDE RECORDS SUMMARY | 2025-05-26 05:25 | XMS_ITS | Encounter Summary ---
Author Organization [facility] Address [address] [place] [address] Phone Care Team Providers Care Treating Plant Pumper Name Role Phone Dandre Chavez MD Primary Care Provider [phone] Miguel Enciso MD Unavailable [phone] Encounter Details Date Type Department Care Team (Late st Contact Info) Description 04/03/2022 Procedure Pass [facility] [address] [place] [address] Social History Tobacco Use Types Packs/Day Years [...] on filedocumented in this encounter Care Teams Treating Plant Pumper Relationship Specialty Start Date End Date Dandre Chavez MD [address] [phone] PCP - General 09/05/17 Miguel Enciso MD [address] [place] [address], [address] [place], [place] [phone] Cardiology 05/28/24 documented as of this encounter Additional Source Comments The information contained in this document represents components of the legal health record. It is not the complete legal health record.[facility]
--- OUTSIDE RECORDS SUMMARY | 2025-05-26 05:25 | XMS_ITS | Encounter Summary ---
Author Organization [facility] Address [address] [place] [address] Care Team Providers Care Layout Inspector Name Role Phone Amina Burciaga MD Primary Care Provider [phone] Encounter Details Date Type Department Care Team (Late st Contact Info) Description 07/27/2024 Lab Requisition [facility] - Main Lab 299 [facility] [place] [address] Hortencia Mcclellan MD 819 [facility] 1 [place], [place] [phone] Type 2 diabetes mellitus without complications (CMS/HCC [...] mmol/L LAB CHEMISTRY METHOD 07/28/2024 8:47 AM [facility] Potassium 4.3 3.5 - 5.5 mmol/L LAB CHEMISTRY METHOD 07/28/2024 8:47 AM [facility] Chloride 107 96 - 110 mmol/L LAB CHEMISTRY METHOD 07/28/2024 8:47 AM [facility] CO2 25 21 - 32 mmol/L LAB CHEMISTRY METHOD 07/28/2024 8:47 AM [facility] Anion Gap 10 3 - 11 LAB CHEMISTRY METHOD 07/28/2024 8:47 AM [facility] Glucose 49(L) 70 - 100 mg/dL LAB CHEMISTRY METHOD 07/28/2024 8:47 AM [facility] BUN 45(H) 5 - 25 mg/dL LAB CHEMISTRY METHOD 07/28/2024 8:47 AM [facility] Creatinine 2.36(H) 0.50 - 1.10 mg/dL LAB CHEMISTRY METHOD 07/28/2024 8:47 AM [facility] eGFR 21(L) >=60 mL/min/1. 73m2 LAB CHEMISTRY METHOD 07/28/2024 8:47 AM [facility] Comment:Calculation based on the Chronic Kidney Disease Epidemiology Collaboration (CKD-EPI) equation refit without adjustment for race. BUN/Creatinine Ratio 19.1 LAB CHEMISTRY METHOD 07/28/2024 8:47 AM [facility] Calcium 9.2 8.5 - 10.5 mg/dL LAB CHEMISTRY METHOD 07/28/2024 8:47 AM [facility] Blood Venous blood specimen / Unknown Venipuncture / Unknown 07/28/2024 5:41 AM EST 07/28/2024 8:02 AM EST us Hortencia Mcclellan MD LAB BLOOD ORDERABLES Fin al Result [facility] [address] [place] [address], * (ABNORMAL) Complete blood count (07/28/2024 5:41 AM EST) [facility] WBC 4.1(L) 4.8 - 10.8 K/mcL LAB HEMETOLOGY METHOD 07/28/2024 8:20 AM [facility] RBC 3.00(L) 3.80 - 4.80 M/mcL LAB HEMETOLOGY METHOD 07/28/2024 8:20 AM [facility] Hemoglobin 8.6(L) 11.5 - 16.0 g/dL LAB HEMETOLOGY METHOD 07/28/2024 8:20 AM [facility] Hematocrit 29.9(L) 35.0 - 47.0 % LAB HEMETOLOGY METHOD 07/28/2024 8:20 AM [facility] MCV 99.7(H) 79.0 - 98.0 FL LAB HEMETOLOGY METHOD 07/28/2024 8:20 AM [facility] MCH 28.7 27.0 - 32.0 pcg LAB HEMETOLOGY METHOD 07/28/2024 8:20 AM [facility] MCHC 28.8(L) 32.0 - 37.0 g/dL LAB HEMETOLOGY METHOD 07/28/2024 8:20 AM [facility] RDW 19.6(H) 11.0 - 15.0 % LAB HEMETOLOGY METHOD 07/28/2024 8:20 AM [facility] Platelets 162 130 - 400 K/mcL LAB HEMETOLOGY METHOD 07/28/2024 8:20 AM [facility] MPV 10.5 7.0 - 11.0 FL LAB HEMETOLOGY METHOD 07/28/2024 8:20 AM [facility] NRBC 0.0 <1.0 % LAB HEMETOLOGY METHOD 07/28/2024 8:20 AM EST [facility] NRBC Absolute 0.00 <0.10 K/mcL LAB HEMETOLOGY METHOD 07/28/2024 8:20 AM EST [facility] Blood Venous blood specimen / Unknown Venipuncture / Unknown 07/28/2024 5:41 AM EST 07/28/2024 8:02 AM EST us Hortencia Mcclellan MD LAB BLOOD ORDERABLES Fin al Result [facility] ([facility]) [facility] [address] [place] [address], documented in this encounter Visit Diagnoses Diagnosis Type 2 diabetes mellitus without complications (CMS/HCC V24, CMS/HCC V28) Heart failure, unspecified (CMS/HCC V24, CMS/HCC V28) Heart failure, unspecified documented in this encounter Care Teams Layout Inspector Relationship Specialty Start Date End Date Amina Burciaga MD [address] [place] [address] PCP - General Hospitalist Medicine 09/11/24 documented as of this encounter
--- OUTSIDE RECORDS SUMMARY | 2025-05-26 05:25 | XMS_ITS | Encounter Summary ---
Author Organization [facility] Address [address] [place] [address] Care Team Providers Care Glove Presser Name Role Phone Amina Burciaga MD Primary Care Provider [phone] Encounter Details Date Type Department Care Team (Late st Contact Info) Description 07/10/2024 Lab Requisition [facility] - Main Lab 299 [facility] [place] [address] Lloyd Jernigan MD [address] [place], [place] [phone] Unspecified dementia, unspecified severity, without behavioral disturbance, [...] mmol/L LAB CHEMISTRY METHOD 07/10/2024 9:59 AM [facility] Potassium 4.4 3.5 - 5.5 mmol/L LAB CHEMISTRY METHOD 07/10/2024 9:59 AM [facility] Chloride 103 96 - 110 mmol/L LAB CHEMISTRY METHOD 07/10/2024 9:59 AM [facility] CO2 31 21 - 32 mmol/L LAB CHEMISTRY METHOD 07/10/2024 9:59 AM [facility] Anion Gap 5 3 - 11 LAB CHEMISTRY METHOD 07/10/2024 9:59 AM [facility] Glucose 115(H) 70 - 100 mg/dL LAB CHEMISTRY METHOD 07/10/2024 9:59 AM [facility] BUN 62(H) 5 - 25 mg/dL LAB CHEMISTRY METHOD 07/10/2024 9:59 AM [facility] Creatinine 2.86(H) 0.50 - 1.10 mg/dL LAB CHEMISTRY METHOD 07/10/2024 9:59 AM [facility] eGFR 16(L) >=60 mL/min/1. 73m2 LAB CHEMISTRY METHOD 07/10/2024 9:59 AM [facility] Comment:Calculation based on the Chronic Kidney Disease Epidemiology Collaboration (CKD-EPI) equation refit without adjustment for race. BUN/Creatinine Ratio 21.7 LAB CHEMISTRY METHOD 07/10/2024 9:59 AM [facility] Calcium 9.3 8.5 - 10.5 mg/dL LAB CHEMISTRY METHOD 07/10/2024 9:59 AM [facility] Blood Venous blood specimen / Unknown Venipuncture / Unknown 07/10/2024 6:29 AM EST 07/10/2024 9:00 AM EST us Lloyd Jernigan MD LAB BLOOD ORDERABLES Final R esult [facility] [address] [place] [address], * (ABNORMAL) Complete blood count (07/10/2024 6:29 AM EST) WBC 5.3 4.8 - 10.8 K/mcL LAB HEMETOLOGY METHOD 07/10/2024 9:47 AM [facility] RBC 3.20(L) 3.80 - 4.80 M/mcL LAB HEMETOLOGY METHOD 07/10/2024 9:47 AM [facility] Hemoglobin 8.9(L) 11.5 - 16.0 g/dL LAB HEMETOLOGY METHOD 07/10/2024 9:47 AM [facility] Hematocrit 32.0(L) 35.0 - 47.0 % LAB HEMETOLOGY METHOD 07/10/2024 9:47 AM [facility] MCV 101.6(H) 79.0 - 98.0 FL LAB HEMETOLOGY METHOD 07/10/2024 9:47 AM [facility] MCH 28.3 27.0 - 32.0 pcg LAB HEMETOLOGY METHOD 07/10/2024 9:47 AM [facility] MCHC 27.8(L) 32.0 - 37.0 g/dL LAB HEMETOLOGY METHOD 07/10/2024 9:47 AM [facility] RDW 20.3(H) 11.0 - 15.0 % LAB HEMETOLOGY METHOD 07/10/2024 9:47 AM [facility] Platelets 239 130 - 400 K/mcL LAB HEMETOLOGY METHOD 07/10/2024 9:47 AM [facility] MPV 10.2 7.0 - 11.0 FL LAB HEMETOLOGY METHOD 07/10/2024 9:47 AM EST [facility] NRBC 0.0 <1.0 % LAB HEMETOLOGY METHOD 07/10/2024 9:47 AM EST [facility] NRBC Absolute 0.00 <0.10 K/mcL LAB HEMETOLOGY METHOD 07/10/2024 9:47 AM EST [facility] Blood Venous blood specimen / Unknown Venipuncture / Unknown 07/10/2024 6:29 AM EST 07/10/2024 9:00 AM EST Lloyd Jernigan MD LAB BLOOD ORDERABLES Final R esult Performing Organization Address City/[facility]/ZIP Co de Phone Number [facility] [address] [place] [address], [place] [phone] * Hemoglobin A1c (07/10/2024 6:29 AM EST) Hemoglobin A1C 5.7 <6.5 % LAB CHEMISTRY METHOD 07/10/2024 1:42 PM EST [facility] Mean Bld Glu Estim. 117 mg/dL LAB CHEMISTRY METHOD 07/10/2024 1:42 PM EST [facility] Blood Venous blood specimen / Unknown Venipuncture / Unknown 07/10/2024 6:29 AM EST 07/10/2024 9:00 AM EST Lloyd Jernigan MD LAB BLOOD ORDERABLES Final R esult [facility] [address] [place] [address], [place] [phone] documented in this encounter Visit Diagnoses Diagnosis Unspecified dementia, unspecified severity, without behavioral disturbance, psychotic disturbance, mood disturbance, and anxiety (CMS/HCC V24, CMS/HCC V28) documented in this encounter Care Teams Glove Presser Relationship Specialty Start Date End Date Amina Burciaga MD [address] [place] [address] PCP - General Hospitalist Medicine 09/11/24 documented as of this encounter
--- OUTSIDE RECORDS SUMMARY | 2025-05-26 05:25 | XMS_ITS | Encounter Summary ---
Author Organization [facility], Address [address] [place] [address] Phone Care Team Providers Care Microfilmer Name Role Phone Dandre Chavez MD Primary Care Provider Encounter Details Date Type Department Care Team (Late st Contact Info) Description 10/30/2022 Documentation Only [facility], [address] [place] [address] Melissa Delgadillo [address] [place] [phone] Social History Tobacco Use Types Packs/Day Years [...] on filedocumented in this encounter Care Teams Microfilmer Relationship Specialty Start Date End Date Dandre Chavez MD [address] [place] [address], [address] [place], [place] PCP - General 07/07/19 documented as of this encounter
--- OUTSIDE RECORDS SUMMARY | 2025-05-26 05:25 | XMS_ITS | Encounter Summary ---
Author Organization [facility], Address [address] [place] [address] Phone Care Team Providers Care Environmental Health And Safety Leader Name Role Phone Dandre Chavez MD Primary Care Provider [phone] Encounter Details Date Type Department Care Team (Late st Contact Info) Description 02/09/2022 Documentation Only [facility], [address] [place] [address] Faina Villegas PA Social History Tobacco Use [...] on filedocumented in this encounter Care Teams Environmental Health And Safety Leader Relationship Specialty Start Date End Date Dandre Chavez MD [address] [place] [address], [address] [place], [place] PCP - General 07/07/19 documented as of this encounter
--- OUTSIDE RECORDS SUMMARY | 2025-05-26 05:25 | XMS_ITS | Encounter Summary ---
Author Organization [facility] Address [address] [place] [address] Phone Care Team Providers Care Copra Processor Name Role Phone Dandre Chavez MD Primary Care Provider [phone] Miguel Enciso MD Unavailable [phone] Encounter Details Date Type Department Care Team (Late st Contact Info) Description 08/18/2021 Procedure Pass [facility] [address] [id number] Social History Tobacco Use Types Packs/Day Years [...] on filedocumented in this encounter Care Teams Copra Processor Relationship Specialty Start Date End Date Dandre Chavez MD [address] [place] [address] [phone] PCP - General 09/05/17 Miguel Enciso MD [address] [place] [address], [address] [place], [place] [phone] Cardiology 05/28/24 documented as of this encounter Additional Source Comments The information contained in this document represents components of the legal health record. It is not the complete legal health record.[facility]
--- OUTSIDE RECORDS SUMMARY | 2025-05-26 05:25 | XMS_ITS | Clinical Summary ---
Author Organization [address] Address [address] [place] [address] Phone Care Team Providers Care Marble Setter Name Role Phone Amina Burciaga MD Primary Care Provider [phone] Immunizations Name Administration Dates Next Due Pfizer [...] ORDERABLES Final Resu lt Performing Organization Address City/[facility]/ZIP Co de Phone Number [facility] [address] [place] [address], [place] [phone] * Hemoglobin A1c (09/23/2024 8:20 AM EST) Hemoglobin A1C 5.3 <6.5 % LAB CHEMISTRY METHOD 09/23/2024 2:17 PM [facility] Mean Bld Glu Estim. 105 mg/dL LAB CHEMISTRY METHOD 09/23/2024 2:17 PM [facility] Blood Venous blood specimen / Unknown Venipuncture / Unknown 09/23/2024 8:20 AM EST 09/23/2024 12:06 PM EST Amina Burciaga MD LAB BLOOD ORDERABLES Final Resul t Performing Organization Address City/[facility]/ZIP Co de Phone Number [facility] [address] [place] [address], [place] [phone] from Last 3 Months or Most Recently Relevant to Health Maintenance Insurance [place]ICA[place] Care Teams Marble Setter Relationship Specialty Start Date End Date Amina Burciaga MD [address] [place] [phone] PCP - General Hospitalist Medicine 09/11/24
--- OUTSIDE RECORDS SUMMARY | 2025-05-26 05:25 | XMS_ITS | Encounter Summary ---
Author Organization [facility], Address [address] [place] [address] Phone Care Team Providers Care Personal Lines Account Manager Name Role Phone Dandre Chavez MD Primary Care Provider Encounter Details Date Type Department Care Team (Late st Contact Info) Description 11/29/2023 Documentation Only [facility], [address] [place] [address] Radha Chatterjee [place] [address] [place] [phone] Social History Tobacco Use Types Packs/Day Years [...] on filedocumented in this encounter Care Teams Personal Lines Account Manager Relationship Specialty Start Date End Date Dandre Chavez MD [address] [place] [address], [address] [place], [place] PCP - General 07/07/19 documented as of this encounter
--- OUTSIDE RECORDS SUMMARY | 2025-05-26 05:25 | XMS_ITS | Encounter Summary ---
Author Organization [facility], Address [address] [place] [address] Phone Care Team Providers Care Buttonhole Maker Name Role Phone Dandre Chavez MD Primary Care Provider [phone] Encounter Details Date Type Department Care Team (Late st Contact Info) Description 10/10/2021 Documentation Only [facility], [address] [place] [address] Faina Villegas PA Social History Tobacco Use [...] on filedocumented in this encounter Care Teams Buttonhole Maker Relationship Specialty Start Date End Date Dandre Chavez MD [address] [place] [address], [address] [place], [place] PCP - General 07/07/19 documented as of this encounter
--- OUTSIDE RECORDS SUMMARY | 2025-05-26 05:25 | XMS_ITS | Encounter Summary ---
Author Organization [facility] Address [address] [place] [address] Care Team Providers Care Newspaper Photojournalist Name Role Phone Amina Burciaga MD Primary Care Provider [phone] Encounter Details Date Type Department Care Team (Late st Contact Info) Description 07/20/2024 Lab Requisition [facility] - Main Lab [address] [place] [address] Hortencia Mcclellan MD [address] [facility] [address] [place], [place] [id number] Type 2 diabetes mellitus without complications (CMS/HCC [...] mmol/L LAB CHEMISTRY METHOD 07/21/2024 8:50 AM [facility] Potassium 4.5 3.5 - 5.5 mmol/L LAB CHEMISTRY METHOD 07/21/2024 8:50 AM [facility] Chloride 108 96 - 110 mmol/L LAB CHEMISTRY METHOD 07/21/2024 8:50 AM [facility] CO2 27 21 - 32 mmol/L LAB CHEMISTRY METHOD 07/21/2024 8:50 AM [facility] Anion Gap 5 3 - 11 LAB CHEMISTRY METHOD 07/21/2024 8:50 AM [facility] Glucose 71 70 - 100 mg/dL LAB CHEMISTRY METHOD 07/21/2024 8:50 AM [facility] BUN 68(H) 5 - 25 mg/dL LAB CHEMISTRY METHOD 07/21/2024 8:50 AM [facility] Creatinine 3.00(H) 0.50 - 1.10 mg/dL LAB CHEMISTRY METHOD 07/21/2024 8:50 AM [facility] eGFR 16(L) >=60 mL/min/1. 73m2 LAB CHEMISTRY METHOD 07/21/2024 8:50 AM [facility] Comment:Calculation based on the Chronic Kidney Disease Epidemiology Collaboration (CKD-EPI) equation refit without adjustment for race. BUN/Creatinine Ratio 22.7 LAB CHEMISTRY METHOD 07/21/2024 8:50 AM [facility] Calcium 9.1 8.5 - 10.5 mg/dL LAB CHEMISTRY METHOD 07/21/2024 8:50 AM [facility] Blood Venous blood specimen / Unknown Venipuncture / Unknown 07/21/2024 5:53 AM EST 07/21/2024 7:55 AM EST us Hortencia Mcclellan MD LAB BLOOD ORDERABLES Fin al Result [facility] [address] [place] [address], * (ABNORMAL) Complete blood count (07/21/2024 5:53 AM EST) [facility] WBC 5.0 4.8 - 10.8 K/mcL LAB HEMETOLOGY METHOD 07/21/2024 8:26 AM [facility] RBC 2.90(L) 3.80 - 4.80 M/mcL LAB HEMETOLOGY METHOD 07/21/2024 8:26 AM [facility] Hemoglobin 8.2(L) 11.5 - 16.0 g/dL LAB HEMETOLOGY METHOD 07/21/2024 8:26 AM [facility] Hematocrit 29.0(L) 35.0 - 47.0 % LAB HEMETOLOGY METHOD 07/21/2024 8:26 AM [facility] MCV 100.7(H) 79.0 - 98.0 FL LAB HEMETOLOGY METHOD 07/21/2024 8:26 AM [facility] MCH 28.5 27.0 - 32.0 pcg LAB HEMETOLOGY METHOD 07/21/2024 8:26 AM [facility] MCHC 28.3(L) 32.0 - 37.0 g/dL LAB HEMETOLOGY METHOD 07/21/2024 8:26 AM [facility] RDW 19.2(H) 11.0 - 15.0 % LAB HEMETOLOGY METHOD 07/21/2024 8:26 AM [facility] Platelets 223 130 - 400 K/mcL LAB HEMETOLOGY METHOD 07/21/2024 8:26 AM [facility] MPV 10.0 7.0 - 11.0 FL LAB HEMETOLOGY METHOD 07/21/2024 8:26 AM [facility] NRBC 0.0 [...] al Result [facility] [address] [place] [address], documented in this encounter Visit Diagnoses Diagnosis Type 2 diabetes mellitus without complications (CMS/HCC V24, CMS/HCC V28) Heart failure, unspecified (CMS/HCC V24, CMS/HCC V28) Heart failure, unspecified documented in this encounter Care Teams Newspaper Photojournalist Relationship Specialty Start Date End Date Amina Burciaga MD [address] [place] [address] PCP - General Hospitalist Medicine 09/11/24 documented as of this encounter
--- OUTSIDE RECORDS SUMMARY | 2025-05-26 05:25 | XMS_ITS | Encounter Summary ---
Author Organization [facility], Address [address] [place] [address] Phone Care Team Providers Care Business Functional Analyst Name Role Phone Dandre Chavez MD Primary Care Provider [phone] Encounter Details Date Type Department Care Team (Late st Contact Info) Description 09/25/2021 Documentation Only [facility], [address] [place] [address] Faina Villegas PA Social History Tobacco Use [...] filedocumented in this encounter Care Teams Business Functional Analyst Relationship Specialty Start Date End Date Dandre Chavez MD [address] [place] [address], [address] [place], [place] PCP - General 07/07/19 documented as of this encounter
--- OUTSIDE RECORDS SUMMARY | 2025-05-26 05:25 | XMS_ITS | Encounter Summary ---
Author Organization [facility] Address [address] [place] [address] Care Team Providers Care Canvas Goods Fabricator Name Role Phone Amina Burciaga MD Primary Care Provider [phone] Encounter Details Date Type Department Care Team (Latest Contact Info) Description 09/07/2024 Lab Requisition [facility] - Main Lab [address] [facility] [address] Amina Burciaga MD [address] [place] [address] Heart failure, unspecified (CMS/HCC V24, [...] diabetes mellitus without complications ([facility]) documented in this encounter Results * Hemoglobin A1c (09/07/2024 6:24 AM EST) Pathologist [facility] Hemoglobin A1C 5.1 <6.5 % LAB CHEMISTRY METHOD 09/07/2024 11:11 AM EST [facility] Mean Bld Glu Estim. 100 mg/dL LAB CHEMISTRY METHOD 09/07/2024 11:[address] [facility] Blood Venous blood specimen / Unknown Venipuncture / Unknown 09/07/2024 6:24 AM EST 09/07/2024 8:12 AM EST Amina Burciaga MD LAB BLOOD ORDERABLES Final Resul t [facility] [address] [place] [address], * (ABNORMAL) Comprehensive metabolic panel (09/07/2024 6:24 AM EST) [facility] Sodium 140 133 - 145 mmol/L LAB CHEMISTRY METHOD 09/07/2024 9:[address] [facility] Potassium 3.8 3.5 - 5.5 mmol/L LAB CHEMISTRY METHOD 09/07/2024 9:[address] [facility] Chloride 106 96 - 110 mmol/L LAB CHEMISTRY METHOD 09/07/2024 9:[address] [facility] CO2 28 21 - 32 mmol/L LAB CHEMISTRY METHOD 09/07/2024 9:[address] [facility] Anion Gap 6 3 - 11 LAB CHEMISTRY METHOD 09/07/2024 9:[address] [facility] Glucose 61(L) 70 - 100 mg/dL LAB CHEMISTRY METHOD 09/07/2024 9:[address] [facility] BUN 59(H) 5 - 25 mg/dL LAB CHEMISTRY METHOD 09/07/2024 9:[address] [facility] Creatinine 3.13(H) 0.50 - 1.10 mg/dL LAB CHEMISTRY METHOD 09/07/2024 9:[address] [facility] eGFR 15(L) >=60 mL/min/1. 73m2 LAB CHEMISTRY METHOD 09/07/2024 9:[address] [facility] Comment:Calculation based on the Chronic Kidney Disease Epidemiology Collaboration (CKD-EPI) equation refit without adjustment for race. BUN/Creatinine Ratio 18.8 LAB CHEMISTRY METHOD 09/07/2024 9:[address] [facility] Calcium 9.0 8.5 - 10.5 mg/dL LAB CHEMISTRY METHOD 09/07/2024 9:[address] [facility] AST (SGOT) 17 10 - 42 unit/L LAB CHEMISTRY METHOD 09/07/2024 9:[address] [facility] ALT (SGPT) 20 10 - 60 unit/L LAB CHEMISTRY METHOD 09/07/2024 9:[address] [facility] Alkaline Phosphatase 60 42 - 121 unit/L LAB CHEMISTRY METHOD 09/07/2024 9:[address] [facility] Total Protein 6.9 6.0 - 8.0 g/dL LAB CHEMISTRY METHOD 09/07/2024 9:[address] [facility] Albumin 3.0(L) 3.2 - 5.0 g/dL LAB CHEMISTRY METHOD 09/07/2024 9:[address] [facility] Total Bilirubin 0.5 0.0 - 1.4 mg/dL LAB CHEMISTRY METHOD 09/07/2024 9:[address] [facility] Blood Venous blood specimen / Unknown Venipuncture / Unknown 09/07/2024 6:24 AM EST 09/07/2024 8:12 AM EST us Amina Burciaga MD LAB BLOOD ORDERABLES Final Resul t [facility] [address] [place] [address], * (ABNORMAL) Complete blood count (09/07/2024 6:24 AM EST) [facility] Signature WBC 4.7(L) 4.8 - 10.8 K/mcL LAB HEMETOLOGY METHOD 09/07/2024 8:[address] [facility] RBC 3.00(L) 3.80 - 4.80 M/mcL LAB HEMETOLOGY METHOD 09/07/2024 8:[address] [facility] Hemoglobin 8.9(L) 11.5 - 16.0 g/dL LAB HEMETOLOGY METHOD 09/07/2024 8:[address] [facility] Hematocrit 30.6(L) 35.0 - 47.0 % LAB HEMETOLOGY METHOD 09/07/2024 8:[address] [facility] MCV 101.7(H) 79.0 - 98.0 FL LAB HEMETOLOGY METHOD 09/07/2024 8:[address] [facility] MCH 29.6 27.0 - 32.0 pcg LAB HEMETOLOGY METHOD 09/07/2024 8:[address] [facility] MCHC 29.1(L) 32.0 - 37.0 g/dL LAB HEMETOLOGY METHOD 09/07/2024 8:[address] [facility] RDW 20.1(H) 11.0 - 15.0 % LAB HEMETOLOGY METHOD 09/07/2024 8:[address] [facility] Platelets 196 130 - 400 K/mcL LAB HEMETOLOGY METHOD 09/07/2024 8:[address] [facility] MPV 10.0 7.0 - 11.0 FL LAB HEMETOLOGY METHOD 09/07/2024 8:[address] [facility] NRBC 0.0 <1.0 % LAB HEMETOLOGY METHOD 09/07/2024 8:53 AM EST [facility] NRBC Absolute 0.00 <0.10 K/mcL LAB HEMETOLOGY METHOD 09/07/2024 8:53 AM EST [facility] Blood Venous blood specimen / Unknown Venipuncture / Unknown 09/07/2024 6:24 AM EST 09/07/2024 8:12 AM EST us Amina Burciaga MD LAB BLOOD ORDERABLES Final Resul t [facility] [address] [place] [address], documented in this encounter Visit Diagnoses Diagnosis Heart failure, unspecified (CMS/HCC V24, CMS/HCC V28) Heart failure, unspecified Chronic kidney disease, unspecified Type 2 diabetes mellitus without complications (CMS/HCC V24, CMS/HCC V28) documented in this encounter Care Teams Canvas Goods Fabricator Relationship Specialty Start Date End Date Amina Burciaga MD [address] [place] [address] PCP - General Hospitalist Medicine 09/11/24 documented as of this encounter
--- OUTSIDE RECORDS SUMMARY | 2025-05-26 05:25 | XMS_ITS | Encounter Summary ---
Author Organization [facility], Address [address] [place] [address] Phone Care Team Providers Care Wired Sweatband Cutter Name Role Phone Dandre Chavez MD Primary Care Provider [phone] Encounter Details Date Type Department Care Team (Late st Contact Info) Description 02/09/2022 Documentation Only [facility], [address] [place] [address] Fiana Villegas PA Social History Tobacco Use Types [...] on filedocumented in this encounter Care Teams Wired Sweatband Cutter Relationship Specialty Start Date End Date Dandre Chavez MD [address] [place] [address], [address] [place], [place] PCP - General 07/07/19 documented as of this encounter
--- OUTSIDE RECORDS SUMMARY | 2025-05-26 05:25 | XMS_ITS | Encounter Summary ---
Author Organization [facility] Address [address] [place] [address] Care Team Providers Care Motor Assembler Name Role Phone Amina Burciaga MD Primary Care Provider [phone] Encounter Details Date Type Department Care Team (Latest Contact Info) Description 09/11/2024 Lab Requisition [facility] - Main Lab [address] [facility] [place] [address] Amina Burciaga MD [address] [place] [address] Other termite inspector (current) drug therapy; Type 2 diabetes mellitus [...] Routine 09/11/2024 9:47 AM EST Other termite inspector (current) drug therapy Type 2 diabetes mellitus without complications (CMS/HCC) Heart failure, unspecified (CMS/HCC) MAGNESIUM Routine 09/11/2024 9:47 AM EST Other prison (current) drug therapy Type 2 diabetes mellitus without complications (CMS/HCC) Heart failure, unspecified (CMS/HCC) BASIC METABOLIC PANEL Routine 09/11/2024 9:47 AM EST Other prison (current) drug therapy Type 2 diabetes mellitus without complications (CMS/HCC) Heart failure, unspecified (CMS/HCC) documented in this encounter Results * Magnesium (09/11/2024 9:47 AM EST) [facility] Magnesium 2.1 1.9 - 2.6 mg/dL LAB CHEMISTRY METHOD 09/11/2024 12:45 PM [facility] Blood Venous blood specimen / Unknown Venipuncture / Unknown 09/11/2024 9:47 AM EST 09/11/2024 11:29 AM EST Amina Burciaga MD LAB BLOOD ORDERABLES Final Resul t [facility] [address] [place] [address], * (ABNORMAL) Basic metabolic panel (09/11/2024 9:47 AM EST) [facility] Sodium 137 133 - 145 mmol/L LAB CHEMISTRY METHOD 09/11/2024 12:54 PM [facility] Potassium 3.9 3.5 - 5.5 mmol/L LAB CHEMISTRY METHOD 09/11/2024 12:54 PM [facility] Chloride 103 96 - 110 mmol/L LAB CHEMISTRY METHOD 09/11/2024 12:54 PM [facility] CO2 26 21 - 32 mmol/L LAB CHEMISTRY METHOD 09/11/2024 12:54 PM [facility] Anion Gap 8 3 - 11 LAB CHEMISTRY METHOD 09/11/2024 12:54 PM [facility] Glucose 112(H) 70 - 100 mg/dL LAB CHEMISTRY METHOD 09/11/2024 12:54 PM [facility] BUN 50(H) 5 - 25 mg/dL LAB CHEMISTRY METHOD 09/11/2024 12:54 PM [facility] Creatinine 2.73(H) 0.50 - 1.10 mg/dL LAB CHEMISTRY METHOD 09/11/2024 12:54 PM [facility] eGFR 17(L) >=60 mL/min/1. 73m2 LAB CHEMISTRY METHOD 09/11/2024 12:54 PM [facility] Comment:Calculation based on the Chronic Kidney Disease Epidemiology Collaboration (CKD-EPI) equation refit without adjustment for race. BUN/Creatinine Ratio 18.3 LAB CHEMISTRY METHOD 09/11/2024 12:54 PM [facility] Calcium 8.6 8.5 - 10.5 mg/dL LAB CHEMISTRY METHOD 09/11/2024 12:54 PM [facility] Blood Venous blood specimen / Unknown Venipuncture / Unknown 09/11/2024 9:47 AM EST 09/11/2024 11:29 AM EST Amina Burciaga MD LAB BLOOD ORDERABLES Final Resul t [facility] [address] [place] [address], * (ABNORMAL) Complete blood count (09/11/2024 9:47 AM EST) WBC 6.9 4.8 - 10.8 K/mcL LAB HEMETOLOGY METHOD 09/11/2024 11:47 AM [facility] RBC 3.10(L) 3.80 - 4.80 M/mcL LAB HEMETOLOGY METHOD 09/11/2024 11:47 AM [facility] Hemoglobin 9.0(L) 11.5 - 16.0 g/dL LAB HEMETOLOGY METHOD 09/11/2024 11:47 AM [facility] Hematocrit 31.6(L) 35.0 - 47.0 % LAB HEMETOLOGY METHOD 09/11/2024 11:47 AM [facility] MCV 102.6(H) 79.0 - 98.0 FL LAB HEMETOLOGY METHOD 09/11/2024 11:47 AM EST [facility] MCH 29.2 27.0 - 32.0 pcg LAB HEMETOLOGY METHOD 09/11/2024 11:47 AM [facility] MCHC 28.5(L) 32.0 - 37.0 g/dL LAB HEMETOLOGY METHOD 09/11/2024 11:47 AM EST [facility] RDW 20.6(H) 11.0 - 15.0 % LAB HEMETOLOGY METHOD 09/11/2024 11:47 AM EST [facility] Platelets 180 130 - 400 K/mcL LAB HEMETOLOGY METHOD 09/11/2024 11:47 AM [facility] MPV 9.9 7.0 - 11.0 FL LAB HEMETOLOGY METHOD 09/11/2024 11:47 AM EST [facility] NRBC 0.0 <1.0 % LAB HEMETOLOGY METHOD 09/11/2024 11:47 AM [facility] NRBC Absolute 0.00 <0.10 K/mcL LAB HEMETOLOGY METHOD 09/11/2024 11:47 AM [facility] Blood Venous blood specimen / Unknown Venipuncture / Unknown 09/11/2024 9:47 AM EST 09/11/2024 11:29 AM EST us Amina Burciaga MD LAB BLOOD ORDERABLES Final Resul t [facility] [address] [place] [address], documented in this encounter Visit Diagnoses Diagnosis Other prison (current) drug therapy Type 2 diabetes mellitus without complications (CMS/HCC V24, CMS/HCC V28) Heart failure, unspecified (CMS/HCC V24, CMS/HCC V28) Heart failure, unspecified documented in this encounter Care Teams Motor Assembler Relationship Specialty Start Date End Date Amina Burciaga MD [address] [place] [address] PCP - General Hospitalist Medicine 09/11/24 documented as of this encounter
--- OUTSIDE RECORDS SUMMARY | 2025-05-26 05:25 | XMS_ITS | Encounter Summary ---
Author Organization [facility], Address [address] [place] [address] Phone Care Team Providers Care Card Processing Clerk Name Role Phone Dandre Chavez MD Primary Care Provider [phone] Encounter Details Date Type Department Care Team (Late st Contact Info) Description 12/31/2022 Documentation Only [facility], [address] [place] [address] Melissa Delgadillo [address] [place] [phone] Social History Tobacco Use Types Packs/Day Years [...] filedocumented in this encounter Care Teams Card Processing Clerk Relationship Specialty Start Date End Date Dandre Chavez MD [address] [place] [address], [address] [place], [place] PCP - General 07/07/19 documented as of this encounter
[2025-05-26 06:12] LABS: Anion Gap 18 (12-20); Blood Urea Nitrogen 106 mg/dL (9-16); Calcium 9.4 mg/dL (8.4-10.2); Carbon Dioxide 32 mmol/L (22-29); Chloride 96 mmol/L (96-108); Estimated Glomerular Filt Rate 13; Potassium 3.7 mmol/L (3.3-5.1); Sodium 142 mmol/L (135-145)
== END 2025-05-26 05:23 | disposition home or self-care (01) ==
LOC: HO.MMNH2L 05:22
PROVIDERS: Visit Provider Physician Assistant Medical
DX: I50.33 Acute on chronic diastolic (congestive) heart failure (principal); J44.9 Chronic obstructive pulmonary disease, unspecified
CPT/HCPCS: 36415; 80048

== ENCOUNTER 2025-05-31 06:25 | Outpatient (REF) | payer MEDICARE, SELFPAY ==
--- OUTSIDE RECORDS SUMMARY | 2018-12-31 05:05 | XMS_ITS | Continuity of Care Document ---
Author Organization [facility] Address [address] [address] Phone Care Team Providers Care Menhaden Fishing Crew Member Name Role Phone Brodie Hinds DO Unavailable Unavailable Advance Directives Directive Yes / No Effective Date File Name No Information Encounters Encounter Description Practice Location Reason(s) For Visit Diagnoses Date Provider [facility], [address], [id number], [place] tel:[phone] [address] [place] [address] No Information 2018 Guzman Calloway. [address] [place] [address], [id number], [place]. tel:[phone] Family History Family Member Type Diagnosis Age [...]
[2025-05-31 06:06] LABS: MANUAL DIFF FLAG NO
[2025-05-31 06:14] LABS: Hematocrit 29.6 % (37.0-47.0); Hemoglobin 8.5 g/dl (12.0-16.0); Imm Gran Abs Auto 0.02 X10*3/uL (0.00-0.03); Imm Gran Pct Auto 0.5 % (0.0-0.4); Lymphocytes Absolute Auto 0.5 X10*3/uL (1.2-4.9); Mean Corpuscular HGB Conc 28.7 g/dl (31.0-35.0); Mean Corpuscular Hemoglobin 26.8 pg (27.0-33.0); Mean Corpuscular Volume 93.4 fL (80.0-98.0); NRBC Abs Auto 0.000 X10*3/uL (0.0-0.012); NRBC Pct Auto 0.0 /100WBC (0.0-0.2); Platelet Count 198 X10*3/uL (160-400); Red Blood Count 3.17 X10*6/uL (4.20-5.50); White Blood Count 4.4 X10*3/uL (4.8-10.8)
[2025-05-31 06:22] LABS: Anion Gap 17 (12-20); Blood Urea Nitrogen 106 mg/dL (9-16); Calcium 9.5 mg/dL (8.4-10.2); Carbon Dioxide 26 mmol/L (22-29); Chloride 104 mmol/L (96-108); Estimated Glomerular Filt Rate 14; Potassium 4.0 mmol/L (3.3-5.1); Sodium 143 mmol/L (135-145)
--- OUTSIDE RECORDS SUMMARY | 2025-05-31 06:28 | XMS_ITS | Clinical Summary ---
Author Organization [facility] Address [address] [place] [address] Care Team Providers Care Data Steward Name Role Phone Dandre Chavez MD Primary Care Provider [phone] Allergies Active Allergy Reactions Criticality Noted Date [...] age to complete this topic Care Teams Data Steward Relationship Specialty Start Date End Date Dandre Chavez MD [address] [place] [address] [place] [id number] PCP - General Internal Medicine 11/06/22
--- OUTSIDE RECORDS SUMMARY | 2025-05-31 06:28 | XMS_ITS | Clinical Summary ---
Author Organization [facility], Address [address] [place] [address] Phone Care Team Providers Care Estate Planning Counselor Name Role Phone Dandre Chavez MD Primary Care Provider [phone] Allergies Active Allergy Reactions Criticality Noted Date [...] Last Assessment & Plan: History of inferior FL in 2013 with a stent to her [...] PM EST) Hemoglobin A1C 6.9(H) (4.0-5.6) % [facility] Comment: MONITORING: In known diabetic patients, hemoglobin A1c targets should be discussed with health care provider. DIAGNOSTIC USE: The [place] [employer] (ADA) and the World Health [...] Supplement 1 Testing performed or reported by [facility], a Service of [address] [address] Louis Fry MD, Individualized Education Plan Aide [facility]# [id number] Blood specimen (specimen) Venous blood / Unknown 10/18/2022 2:34 PM EST 10/18/2022 2:35 PM EST us Faina LUCIANO LAB BLOOD ORDERABLES Final Res ult [facility] from Last 3 Months or Most Recently Relevant to Health Maintenance Insurance Medicare [facility] [place] [id number] Care Teams Estate Planning Counselor Relationship Specialty Start Date End Date Dandre Chavez MD [address] [place] [address], [address] [place] PCP - General 07/07/19
--- OUTSIDE RECORDS SUMMARY | 2025-05-31 06:29 | XMS_ITS | Encounter Summary ---
Author Organization [facility] Address [address] [place] [address] Care Team Providers Care Etl Analyst Developer Name Role Phone Amina Burciaga MD Primary Care Provider [phone] Encounter Details Date Type Department Care Team (Late st Contact Info) Description 07/27/2024 Lab Requisition [facility] - Main Lab 299 [facility] [place] [address] Hortencia Mcclellan MD [address] [id number] Type 2 diabetes mellitus without complications (CMS/HCC [...] mmol/L LAB CHEMISTRY METHOD 07/28/2024 8:47 AM [facility] Potassium 4.3 3.5 - 5.5 mmol/L LAB CHEMISTRY METHOD 07/28/2024 8:47 AM [facility] Chloride 107 96 - 110 mmol/L LAB CHEMISTRY METHOD 07/28/2024 8:47 AM [facility] CO2 25 21 - 32 mmol/L LAB CHEMISTRY METHOD 07/28/2024 8:47 AM [facility] Anion Gap 10 3 - 11 LAB CHEMISTRY METHOD 07/28/2024 8:47 AM [facility] Glucose 49(L) 70 - 100 mg/dL LAB CHEMISTRY METHOD 07/28/2024 8:47 AM [facility] BUN 45(H) 5 - 25 mg/dL LAB CHEMISTRY METHOD 07/28/2024 8:47 AM [facility] Creatinine 2.36(H) 0.50 - 1.10 mg/dL LAB CHEMISTRY METHOD 07/28/2024 8:47 AM [facility] eGFR 21(L) >=60 mL/min/1. 73m2 LAB CHEMISTRY METHOD 07/28/2024 8:47 AM [facility] Comment:Calculation based on the Chronic Kidney Disease Epidemiology Collaboration (CKD-EPI) equation refit without adjustment for race. BUN/Creatinine Ratio 19.1 LAB CHEMISTRY METHOD 07/28/2024 8:47 AM [facility] Calcium 9.2 8.5 - 10.5 mg/dL LAB CHEMISTRY METHOD 07/28/2024 8:47 AM [facility] Blood Venous blood specimen / Unknown Venipuncture / Unknown 07/28/2024 5:41 AM EST 07/28/2024 8:02 AM EST us Hortencia Mcclellan MD LAB BLOOD ORDERABLES Fin al Result [facility] [address] [place] [address], * (ABNORMAL) Complete blood count (07/28/2024 5:41 AM EST) [facility] WBC 4.1(L) 4.8 - 10.8 K/mcL LAB HEMETOLOGY METHOD 07/28/2024 8:20 AM [facility] RBC 3.00(L) 3.80 - 4.80 M/mcL LAB HEMETOLOGY METHOD 07/28/2024 8:20 AM [facility] Hemoglobin 8.6(L) 11.5 - 16.0 g/dL LAB HEMETOLOGY METHOD 07/28/2024 8:20 AM [facility] Hematocrit 29.9(L) 35.0 - 47.0 % LAB HEMETOLOGY METHOD 07/28/2024 8:20 AM [facility] MCV 99.7(H) 79.0 - 98.0 FL LAB HEMETOLOGY METHOD 07/28/2024 8:20 AM [facility] MCH 28.7 27.0 - 32.0 pcg LAB HEMETOLOGY METHOD 07/28/2024 8:20 AM [facility] MCHC 28.8(L) 32.0 - 37.0 g/dL LAB HEMETOLOGY METHOD 07/28/2024 8:20 AM [facility] RDW 19.6(H) 11.0 - 15.0 % LAB HEMETOLOGY METHOD 07/28/2024 8:20 AM [facility] Platelets 162 130 - 400 K/mcL LAB HEMETOLOGY METHOD 07/28/2024 8:20 AM [facility] MPV 10.5 7.0 - 11.0 FL LAB HEMETOLOGY METHOD 07/28/2024 8:20 AM [facility] NRBC 0.0 <1.0 % LAB HEMETOLOGY METHOD 07/28/2024 8:20 AM EST [facility] NRBC Absolute 0.00 <0.10 K/mcL LAB HEMETOLOGY METHOD 07/28/2024 8:20 AM EST [facility] Blood Venous blood specimen / Unknown Venipuncture / Unknown 07/28/2024 5:41 AM EST 07/28/2024 8:02 AM EST us Hortencia Mcclellan MD LAB BLOOD ORDERABLES Fin al Result [facility] ([facility] [address] [place] [address], documented in this encounter Visit Diagnoses Diagnosis Type 2 diabetes mellitus without complications (CMS/HCC V24, CMS/HCC V28) Heart failure, unspecified (CMS/HCC V24, CMS/HCC V28) Heart failure, unspecified documented in this encounter Care Teams Etl Analyst Developer Relationship Specialty Start Date End Date Amina Burciaga MD [address] [place] [address] PCP - General Hospitalist Medicine 09/11/24 documented as of this encounter
--- OUTSIDE RECORDS SUMMARY | 2025-05-31 06:29 | XMS_ITS | Encounter Summary ---
Author Organization [facility] Address [address] [place] [phone] Phone Care Team Providers Care Supervisor Prop Making Name Role Phone Dandre Chavez MD Primary Care Provider [phone] Miguel Enciso MD Unavailable [phone] Encounter Details Date Type Department Care Team (Late st Contact Info) Description 09/18/2019 Ancillary Orders [facility] [address] [place], [place] [phone] Miguel Enciso MD [address] [place] [address], [address] [place], [place] [phone] [email or web address] (peripheral vascular disease) Social History Tobacco [...] disease documented in this encounter Care Teams Supervisor Prop Making Relationship Specialty Start Date End Date Dandre Chavez MD [address] [place] [address] PCP - General 09/05/17 Miguel Enciso MD [address] [place] [address] [address] [place] [address] Cardiology 05/28/24 documented as of this encounter Additional Source Comments The information contained in this document represents components of the legal health record. It is not the complete legal health record.[facility]
--- OUTSIDE RECORDS SUMMARY | 2025-05-31 06:29 | XMS_ITS | Encounter Summary ---
Author Organization [facility] Address [address] [place] [address] Care Team Providers Care Assistant Program Director Name Role Phone Amina Burciaga MD Primary Care Provider [phone] Encounter Details Date Type Department Care Team (Late st Contact Info) Description 08/03/2024 Lab Requisition [facility] - Main Lab 299 [facility] [place] [address] Hortencia Mcclellan MD [address] [id number] Type 2 diabetes mellitus without complications (CMS/HCC [...] mmol/L LAB CHEMISTRY METHOD 08/04/2024 9:42 AM [facility] Potassium 3.6 3.5 - 5.5 mmol/L LAB CHEMISTRY METHOD 08/04/2024 9:42 AM [facility] Chloride 106 96 - 110 mmol/L LAB CHEMISTRY METHOD 08/04/2024 9:42 AM [facility] CO2 29 21 - 32 mmol/L LAB CHEMISTRY METHOD 08/04/2024 9:42 AM [facility] Anion Gap 8 3 - 11 LAB CHEMISTRY METHOD 08/04/2024 9:42 AM [facility] Glucose 64(L) 70 - 100 mg/dL LAB CHEMISTRY METHOD 08/04/2024 9:42 AM [facility] BUN 44(H) 5 - 25 mg/dL LAB CHEMISTRY METHOD 08/04/2024 9:42 AM [facility] Creatinine 2.43(H) 0.50 - 1.10 mg/dL LAB CHEMISTRY METHOD 08/04/2024 9:42 AM [facility] eGFR 20(L) >=60 mL/min/1. 73m2 LAB CHEMISTRY METHOD 08/04/2024 9:42 AM [facility] Comment:Calculation based on the Chronic Kidney Disease Epidemiology Collaboration (CKD-EPI) equation refit without adjustment for race. BUN/Creatinine Ratio 18.1 LAB CHEMISTRY METHOD 08/04/2024 9:42 AM [facility] Calcium 8.8 8.5 - 10.5 mg/dL LAB CHEMISTRY METHOD 08/04/2024 9:42 AM [facility] Blood Venous blood specimen / Unknown Venipuncture / Unknown 08/04/2024 6:38 AM EST 08/04/2024 8:24 AM EST us Hortencia Mcclellan MD LAB BLOOD ORDERABLES Fin al Result [facility] [address] [place] [address], * (ABNORMAL) Complete blood count (08/04/2024 6:38 AM EST) [facility] WBC 4.5(L) 4.8 - 10.8 K/mcL LAB HEMETOLOGY METHOD 08/04/2024 9:19 AM [facility] RBC 3.20(L) 3.80 - 4.80 M/mcL LAB HEMETOLOGY METHOD 08/04/2024 9:19 AM [facility] Hemoglobin 9.0(L) 11.5 - 16.0 g/dL LAB HEMETOLOGY METHOD 08/04/2024 9:19 AM [facility] Hematocrit 31.8(L) 35.0 - 47.0 % LAB HEMETOLOGY METHOD 08/04/2024 9:19 AM [facility] MCV 100.0(H) 79.0 - 98.0 FL LAB HEMETOLOGY METHOD 08/04/2024 9:19 AM [facility] MCH 28.3 27.0 - 32.0 pcg LAB HEMETOLOGY METHOD 08/04/2024 9:19 AM [facility] MCHC 28.3(L) 32.0 - 37.0 g/dL LAB HEMETOLOGY METHOD 08/04/2024 9:19 AM [facility] RDW 18.9(H) 11.0 - 15.0 % LAB HEMETOLOGY METHOD 08/04/2024 9:19 AM [facility] Platelets 188 130 - 400 K/mcL LAB HEMETOLOGY METHOD 08/04/2024 9:19 AM [facility] MPV 10.6 7.0 - 11.0 FL LAB HEMETOLOGY METHOD 08/04/2024 9:19 AM [facility] NRBC 0.0 <1.0 % LAB HEMETOLOGY METHOD 08/04/2024 9:19 AM EST [facility] NRBC Absolute 0.00 <0.10 K/mcL LAB HEMETOLOGY METHOD 08/04/2024 9:19 AM EST [facility] Blood Venous blood specimen / Unknown Venipuncture / Unknown 08/04/2024 6:38 AM EST 08/04/2024 8:24 AM EST us Hortencia Mcclellan MD LAB BLOOD ORDERABLES Fin al Result [facility] [address] [place] [address], documented in this encounter Visit Diagnoses Diagnosis Type 2 diabetes mellitus without complications (CMS/HCC V24, CMS/HCC V28) Heart failure, unspecified (CMS/HCC V24, CMS/HCC V28) Heart failure, unspecified documented in this encounter Care Teams Assistant Program Director Relationship Specialty Start Date End Date Amina Burciaga MD [address] [place] [address] PCP - General Hospitalist Medicine 09/11/24 documented as of this encounter
--- OUTSIDE RECORDS SUMMARY | 2025-05-31 06:29 | XMS_ITS | Encounter Summary ---
Author Organization [facility] Address [address] [place] [address] Care Team Providers Care Mass Spectroscopist Name Role Phone Amina Burciaga MD Primary Care Provider [phone] Encounter Details Date Type Department Care Team (Latest Contact Info) Description 09/07/2024 Lab Requisition [facility] - Main Lab 299 [facility] [place] [address] Amina Burciaga MD [address] [place] [address] Heart failure, unspecified (CMS/HCC V24, [...] unspecified Type 2 diabetes mellitus without complications ([facility]) documented in this encounter Results * Hemoglobin A1c (09/07/2024 6:24 AM EST) Pathologist [facility] Hemoglobin A1C 5.1 <6.5 % LAB CHEMISTRY METHOD 09/07/2024 11:11 AM EST [facility] Mean Bld Glu Estim. 100 mg/dL LAB CHEMISTRY METHOD 09/07/2024 11:11 AM [facility] Blood Venous blood specimen / Unknown Venipuncture / Unknown 09/07/2024 6:24 AM EST 09/07/2024 8:12 AM EST Amina Burciaga MD LAB BLOOD ORDERABLES Final Resul t [facility] [address] [place] [address], * (ABNORMAL) Comprehensive metabolic panel (09/07/2024 6:24 AM EST) [facility] Sodium 140 133 - 145 mmol/L LAB CHEMISTRY METHOD 09/07/2024 9:18 AM [facility] Potassium 3.8 3.5 - 5.5 mmol/L LAB CHEMISTRY METHOD 09/07/2024 9:18 AM [facility] Chloride 106 96 - 110 mmol/L LAB CHEMISTRY METHOD 09/07/2024 9:18 AM [facility] CO2 28 21 - 32 mmol/L LAB CHEMISTRY METHOD 09/07/2024 9:18 AM [facility] Anion Gap 6 3 - 11 LAB CHEMISTRY METHOD 09/07/2024 9:18 AM [facility] Glucose 61(L) 70 - 100 mg/dL LAB CHEMISTRY METHOD 09/07/2024 9:18 AM [facility] BUN 59(H) 5 - 25 mg/dL LAB CHEMISTRY METHOD 09/07/2024 9:18 AM [facility] Creatinine 3.13(H) 0.50 - 1.10 mg/dL LAB CHEMISTRY METHOD 09/07/2024 9:18 AM [facility] eGFR 15(L) >=60 mL/min/1. 73m2 LAB CHEMISTRY METHOD 09/07/2024 9:18 AM [facility] Comment:Calculation based on the Chronic Kidney Disease Epidemiology Collaboration (CKD-EPI) equation refit without adjustment for race. BUN/Creatinine Ratio 18.8 LAB CHEMISTRY METHOD 09/07/2024 9:18 AM [facility] Calcium 9.0 8.5 - 10.5 mg/dL LAB CHEMISTRY METHOD 09/07/2024 9:18 AM [facility] AST (SGOT) 17 10 - 42 unit/L LAB CHEMISTRY METHOD 09/07/2024 9:18 AM [facility] ALT (SGPT) 20 10 - 60 unit/L LAB CHEMISTRY METHOD 09/07/2024 9:18 AM [facility] Alkaline Phosphatase 60 42 - 121 unit/L LAB CHEMISTRY METHOD 09/07/2024 9:18 AM [facility] Total Protein 6.9 6.0 - 8.0 g/dL LAB CHEMISTRY METHOD 09/07/2024 9:18 AM [facility] Albumin 3.0(L) 3.2 - 5.0 g/dL LAB CHEMISTRY METHOD 09/07/2024 9:18 AM [facility] Total Bilirubin 0.5 0.0 - 1.4 mg/dL LAB CHEMISTRY METHOD 09/07/2024 9:18 AM [facility] Blood Venous blood specimen / Unknown Venipuncture / Unknown 09/07/2024 6:24 AM EST 09/07/2024 8:12 AM EST us Amina Burciaga MD LAB BLOOD ORDERABLES Final Resul t [facility] [address] [place] [address], * (ABNORMAL) Complete blood count (09/07/2024 6:24 AM EST) [facility] Signature WBC 4.7(L) 4.8 - 10.8 K/mcL LAB HEMETOLOGY METHOD 09/07/2024 8:53 AM [facility] RBC 3.00(L) 3.80 - 4.80 M/mcL LAB HEMETOLOGY METHOD 09/07/2024 8:53 AM [facility] Hemoglobin 8.9(L) 11.5 - 16.0 g/dL LAB HEMETOLOGY METHOD 09/07/2024 8:53 AM [facility] Hematocrit 30.6(L) 35.0 - 47.0 % LAB HEMETOLOGY METHOD 09/07/2024 8:53 AM [facility] MCV 101.7(H) 79.0 - 98.0 FL LAB HEMETOLOGY METHOD 09/07/2024 8:53 AM [facility] MCH 29.6 27.0 - 32.0 pcg LAB HEMETOLOGY METHOD 09/07/2024 8:53 AM [facility] MCHC 29.1(L) 32.0 - 37.0 g/dL LAB HEMETOLOGY METHOD 09/07/2024 8:53 AM [facility] RDW 20.1(H) 11.0 - 15.0 % LAB HEMETOLOGY METHOD 09/07/2024 8:53 AM [facility] Platelets 196 130 - 400 K/mcL LAB HEMETOLOGY METHOD 09/07/2024 8:53 AM [facility] MPV 10.0 7.0 - 11.0 FL LAB HEMETOLOGY METHOD 09/07/2024 8:53 AM [facility] NRBC 0.0 <1.0 % LAB HEMETOLOGY METHOD 09/07/2024 8:53 AM EST [facility] NRBC Absolute 0.00 <0.10 K/mcL LAB HEMETOLOGY METHOD 09/07/2024 8:53 AM EST [facility] Blood Venous blood specimen / Unknown Venipuncture / Unknown 09/07/2024 6:24 AM EST 09/07/2024 8:12 AM EST us Amina Burciaga MD LAB BLOOD ORDERABLES Final Resul t [facility] ([facility] [address] [place] [address], documented in this encounter Visit Diagnoses Diagnosis Heart failure, unspecified (CMS/HCC V24, CMS/HCC V28) Heart failure, unspecified Chronic kidney disease, unspecified Type 2 diabetes mellitus without complications (CMS/HCC V24, CMS/HCC V28) documented in this encounter Care Teams Mass Spectroscopist Relationship Specialty Start Date End Date Amina Burciaga MD [address] [place] [address] PCP - General Hospitalist Medicine 09/11/24 documented as of this encounter
--- OUTSIDE RECORDS SUMMARY | 2025-05-31 06:29 | XMS_ITS | Encounter Summary ---
Author Organization [facility] Address [address] [place] [address] Care Team Providers Care Business Services Director Name Role Phone Amina Burciaga MD Primary Care Provider [phone] Encounter Details Date Type Department Care Team (Late st Contact Info) Description 07/23/2024 Lab Requisition [facility] - Main Lab [address] [place] [address] Hortencia Mcclellan MD [address] [id number] Chronic kidney disease, unspecified; Type 2 diabetes [...] LAB CHEMISTRY METHOD 07/23/2024 9:13 AM EST [facility] Potassium 3.8 3.5 - 5.5 mmol/L LAB CHEMISTRY METHOD 07/23/2024 9:13 AM EST [facility] Chloride 111(H) 96 - 110 mmol/L LAB CHEMISTRY METHOD 07/23/2024 9:13 AM [facility] CO2 27 21 - 32 mmol/L LAB CHEMISTRY METHOD 07/23/2024 9:13 AM [facility] Anion Gap 6 3 - 11 LAB CHEMISTRY METHOD 07/23/2024 9:13 AM [facility] Glucose 64(L) 70 - 100 mg/dL LAB CHEMISTRY METHOD 07/23/2024 9:13 AM [facility] BUN 62(H) 5 - 25 mg/dL LAB CHEMISTRY METHOD 07/23/2024 9:13 AM [facility] Creatinine 2.70(H) 0.50 - 1.10 mg/dL LAB CHEMISTRY METHOD 07/23/2024 9:13 AM [facility] eGFR 18(L) >=60 mL/min/1. 73m2 LAB CHEMISTRY METHOD 07/23/2024 9:13 AM [facility] Comment:Calculation based on the Chronic Kidney Disease Epidemiology Collaboration (CKD-EPI) equation refit without adjustment for race. BUN/Creatinine Ratio 23.0 LAB CHEMISTRY METHOD 07/23/2024 9:13 AM [facility] Calcium 9.2 8.5 - 10.5 mg/dL LAB CHEMISTRY METHOD 07/23/2024 9:13 AM [facility] Blood Venous blood specimen / Unknown Venipuncture / Unknown 07/23/2024 5:52 AM EST 07/23/2024 8:17 AM EST us Hortencia Mcclellan MD LAB BLOOD ORDERABLES Fin al Result [facility] [address] [place] [address], documented in this encounter Visit Diagnoses Diagnosis Chronic kidney disease, unspecified Type 2 diabetes mellitus without complications (CMS/HCC V24, CMS/HCC V28) documented in this encounter Care Teams Business Services Director Relationship Specialty Start Date End Date Amina Burciaga MD [address] [place] [address] PCP - General Hospitalist Medicine 09/11/24 documented as of this encounter
--- OUTSIDE RECORDS SUMMARY | 2025-05-31 06:29 | XMS_ITS | Encounter Summary ---
Author Organization [facility], Address [address] [place] [address] Phone Care Team Providers Care Graphic Illustrator Name Role Phone Dandre Chavez MD Primary Care Provider [phone] Encounter Details Date Type Department Care Team (Late st Contact Info) Description 12/31/2022 Documentation Only [facility], [address] [place] [address] Melissa Delgadillo [address] [place] [phone] Social History Tobacco Use Types Packs/Day Years [...] filedocumented in this encounter Care Teams Graphic Illustrator Relationship Specialty Start Date End Date Dandre Chavez MD [address] [place] [address], [address] [place], [place] PCP - General 07/07/19 documented as of this encounter
--- OUTSIDE RECORDS SUMMARY | 2025-05-31 06:29 | XMS_ITS | Encounter Summary ---
Author Organization [facility] Address [address] [place] [address] Care Team Providers Care Hybrid Corn Breeder Name Role Phone Amina Burciaga MD Primary Care Provider [phone] Encounter Details Date Type Department Care Team (Late st Contact Info) Description 07/10/2024 Lab Requisition [facility] - Main Lab 299 [facility] [place] [address] Lloyd Jernigan MD [address] [place] [address] Unspecified dementia, unspecified severity, without behavioral disturbance, [...] mmol/L LAB CHEMISTRY METHOD 07/10/2024 9:59 AM [facility] Potassium 4.4 3.5 - 5.5 mmol/L LAB CHEMISTRY METHOD 07/10/2024 9:59 AM [facility] Chloride 103 96 - 110 mmol/L LAB CHEMISTRY METHOD 07/10/2024 9:59 AM [facility] CO2 31 21 - 32 mmol/L LAB CHEMISTRY METHOD 07/10/2024 9:59 AM [facility] Anion Gap 5 3 - 11 LAB CHEMISTRY METHOD 07/10/2024 9:59 AM [facility] Glucose 115(H) 70 - 100 mg/dL LAB CHEMISTRY METHOD 07/10/2024 9:59 AM [facility] BUN 62(H) 5 - 25 mg/dL LAB CHEMISTRY METHOD 07/10/2024 9:59 AM [facility] Creatinine 2.86(H) 0.50 - 1.10 mg/dL LAB CHEMISTRY METHOD 07/10/2024 9:59 AM [facility] eGFR 16(L) >=60 mL/min/1. 73m2 LAB CHEMISTRY METHOD 07/10/2024 9:59 AM [facility] Comment:Calculation based on the Chronic Kidney Disease Epidemiology Collaboration (CKD-EPI) equation refit without adjustment for race. BUN/Creatinine Ratio 21.7 LAB CHEMISTRY METHOD 07/10/2024 9:59 AM [facility] Calcium 9.3 8.5 - 10.5 mg/dL LAB CHEMISTRY METHOD 07/10/2024 9:59 AM [facility] Blood Venous blood specimen / Unknown Venipuncture / Unknown 07/10/2024 6:29 AM EST 07/10/2024 9:00 AM EST us Lloyd Jernigan MD LAB BLOOD ORDERABLES Final R esult [facility] [address] [place] [address], * (ABNORMAL) Complete blood count (07/10/2024 6:29 AM EST) WBC 5.3 4.8 - 10.8 K/mcL LAB HEMETOLOGY METHOD 07/10/2024 9:47 AM [facility] RBC 3.20(L) 3.80 - 4.80 M/mcL LAB HEMETOLOGY METHOD 07/10/2024 9:47 AM [facility] Hemoglobin 8.9(L) 11.5 - 16.0 g/dL LAB HEMETOLOGY METHOD 07/10/2024 9:47 AM [facility] Hematocrit 32.0(L) 35.0 - 47.0 % LAB HEMETOLOGY METHOD 07/10/2024 9:47 AM [facility] MCV 101.6(H) 79.0 - 98.0 FL LAB HEMETOLOGY METHOD 07/10/2024 9:47 AM [facility] MCH 28.3 27.0 - 32.0 pcg LAB HEMETOLOGY METHOD 07/10/2024 9:47 AM [facility] MCHC 27.8(L) 32.0 - 37.0 g/dL LAB HEMETOLOGY METHOD 07/10/2024 9:47 AM [facility] RDW 20.3(H) 11.0 - 15.0 % LAB HEMETOLOGY METHOD 07/10/2024 9:47 AM [facility] Platelets 239 130 - 400 K/mcL LAB HEMETOLOGY METHOD 07/10/2024 9:47 AM [facility] MPV 10.2 7.0 - 11.0 [...] ORDERABLES Final R esult Performing Organization Address City/[facility]/ZIP Co de Phone Number [facility] [address] [place] [address], [place] [phone] * Hemoglobin A1c (07/10/2024 6:29 AM EST) [...] Final R esult [facility] [address] [place] [address], [place] [phone] documented in this encounter Visit Diagnoses Diagnosis Unspecified dementia, unspecified severity, without behavioral disturbance, psychotic disturbance, mood disturbance, and anxiety (CMS/HCC V24, CMS/HCC V28) documented in this encounter Care Teams Hybrid Corn Breeder Relationship Specialty Start Date End Date Amina Burciaga MD [address] [place] [address] PCP - General Hospitalist Medicine 09/11/24 documented as of this encounter
--- OUTSIDE RECORDS SUMMARY | 2025-05-31 06:29 | XMS_ITS | Encounter Summary ---
Author Organization [facility], Address [address] [place] [address] Phone Care Team Providers Care Drivers License Examiner Name Role Phone Dandre Chavez MD Primary Care Provider [phone] Encounter Details Date Type Department Care Team (Late st Contact Info) Description 10/10/2021 Documentation Only [facility], [address] [place] [address] Faina Villegas PA Social History Tobacco Use [...] on filedocumented in this encounter Care Teams Drivers License Examiner Relationship Specialty Start Date End Date Dandre Chavez MD [address] [place] [address], [address] [place], [place] PCP - General 07/07/19 documented as of this encounter
--- OUTSIDE RECORDS SUMMARY | 2025-05-31 06:29 | XMS_ITS | Encounter Summary ---
Author Organization [facility] Address [address] [place] [address] Care Team Providers Care English Adjunct Faculty Name Role Phone Amina Burciaga MD Primary Care Provider [phone] Encounter Details Date Type Department Care Team (Late st Contact Info) Description 07/20/2024 Lab Requisition [facility] - Main Lab [address] [facility] [place] [address] Hortencia Mcclellan MD [address] [facility] 1 [place], [place] [id number] Type 2 diabetes mellitus without complications (CMS/HCC [...] mmol/L LAB CHEMISTRY METHOD 07/21/2024 8:50 AM [facility] Potassium 4.5 3.5 - 5.5 mmol/L LAB CHEMISTRY METHOD 07/21/2024 8:50 AM [facility] Chloride 108 96 - 110 mmol/L LAB CHEMISTRY METHOD 07/21/2024 8:50 AM [facility] CO2 27 21 - 32 mmol/L LAB CHEMISTRY METHOD 07/21/2024 8:50 AM [facility] Anion Gap 5 3 - 11 LAB CHEMISTRY METHOD 07/21/2024 8:50 AM [facility] Glucose 71 70 - 100 mg/dL LAB CHEMISTRY METHOD 07/21/2024 8:50 AM [facility] BUN 68(H) 5 - 25 mg/dL LAB CHEMISTRY METHOD 07/21/2024 8:50 AM [facility] Creatinine 3.00(H) 0.50 - 1.10 mg/dL LAB CHEMISTRY METHOD 07/21/2024 8:50 AM [facility] eGFR 16(L) >=60 mL/min/1. 73m2 LAB CHEMISTRY METHOD 07/21/2024 8:50 AM [facility] Comment:Calculation based on the Chronic Kidney Disease Epidemiology Collaboration (CKD-EPI) equation refit without adjustment for race. BUN/Creatinine Ratio 22.7 LAB CHEMISTRY METHOD 07/21/2024 8:50 AM [facility] Calcium 9.1 8.5 - 10.5 mg/dL LAB CHEMISTRY METHOD 07/21/2024 8:50 AM [facility] Blood Venous blood specimen / Unknown Venipuncture / Unknown 07/21/2024 5:53 AM EST 07/21/2024 7:55 AM EST us Hortencia Mcclellan MD LAB BLOOD ORDERABLES Fin al Result [facility] [address] [place] [address], * (ABNORMAL) Complete blood count (07/21/2024 5:53 AM EST) [facility] WBC 5.0 4.8 - 10.8 K/mcL LAB HEMETOLOGY METHOD 07/21/2024 8:26 AM [facility] RBC 2.90(L) 3.80 - 4.80 M/mcL LAB HEMETOLOGY METHOD 07/21/2024 8:26 AM [facility] Hemoglobin 8.2(L) 11.5 - 16.0 g/dL LAB HEMETOLOGY METHOD 07/21/2024 8:26 AM [facility] Hematocrit 29.0(L) 35.0 - 47.0 % LAB HEMETOLOGY METHOD 07/21/2024 8:26 AM [facility] MCV 100.7(H) 79.0 - 98.0 FL LAB HEMETOLOGY METHOD 07/21/2024 8:26 AM [facility] MCH 28.5 27.0 - 32.0 pcg LAB HEMETOLOGY METHOD 07/21/2024 8:26 AM [facility] MCHC 28.3(L) 32.0 - 37.0 g/dL LAB HEMETOLOGY METHOD 07/21/2024 8:26 AM [facility] RDW 19.2(H) 11.0 - 15.0 % LAB HEMETOLOGY METHOD 07/21/2024 8:26 AM [facility] Platelets 223 130 - 400 K/mcL LAB HEMETOLOGY METHOD 07/21/2024 8:26 AM [facility] MPV 10.0 7.0 - 11.0 FL LAB HEMETOLOGY METHOD 07/21/2024 8:26 AM [facility] NRBC [...] Fin al Result [facility] [address] [place] [address], documented in this encounter Visit Diagnoses Diagnosis Type 2 diabetes mellitus without complications (CMS/HCC V24, CMS/HCC V28) Heart failure, unspecified (CMS/HCC V24, CMS/HCC V28) Heart failure, unspecified documented in this encounter Care Teams English Adjunct Faculty Relationship Specialty Start Date End Date Amina Burciaga MD [address] [place] [address] PCP - General Hospitalist Medicine 09/11/24 documented as of this encounter
--- OUTSIDE RECORDS SUMMARY | 2025-05-31 06:29 | XMS_ITS | Encounter Summary ---
Author Organization [facility], Address [address] [place] [address] Phone Care Team Providers Care Trimming Machine Operator Name Role Phone Dandre Chavez MD Primary Care Provider [phone] Encounter Details Date Type Department Care Team (Late st Contact Info) Description 09/07/2022 Documentation Only [facility], [address] [place] [address] Faina Villegas PA Social History Tobacco Use [...] on filedocumented in this encounter Care Teams Trimming Machine Operator Relationship Specialty Start Date End Date Dandre Chavez MD [address] [place] [address], [address] [place], [place] PCP - General 07/07/19 documented as of this encounter
--- OUTSIDE RECORDS SUMMARY | 2025-05-31 06:29 | XMS_ITS | Clinical Summary ---
Author Organization [address] Address [address] [place] [address] Phone Care Team Providers Care Postal Worker Name Role Phone Amina Burciaga MD Primary Care Provider [phone] Immunizations Immunization Administration Dates Next Due Pfizer SARS-CoV-2 COVID-19, [...] mmol/L LAB CHEMISTRY METHOD 09/30/2024 1:04 PM [facility] Potassium 3.7 3.5 - 5.5 mmol/L LAB CHEMISTRY METHOD 09/30/2024 1:04 PM [facility] Chloride 100 96 - 110 mmol/L LAB CHEMISTRY METHOD 09/30/2024 1:04 PM [facility] CO2 31 21 - 32 mmol/L LAB CHEMISTRY METHOD 09/30/2024 1:04 PM [facility] Anion Gap 7 3 - 11 LAB CHEMISTRY METHOD 09/30/2024 1:04 PM [facility] Glucose 228(H) 70 - 100 mg/dL LAB CHEMISTRY METHOD 09/30/2024 1:04 PM [facility] BUN 90(H) 5 - 25 mg/dL LAB CHEMISTRY METHOD 09/30/2024 1:04 PM [facility] Creatinine 2.19(H) 0.50 - 1.10 mg/dL LAB CHEMISTRY METHOD 09/30/2024 1:04 PM [facility] eGFR 23(L) >=60 mL/min/1. 73m2 LAB CHEMISTRY METHOD 09/30/2024 1:04 PM [facility] Comment:Calculation based on the Chronic Kidney Disease Epidemiology Collaboration (CKD-EPI) equation refit without adjustment for race. BUN/Creatinine Ratio 41.1 LAB CHEMISTRY METHOD 09/30/2024 1:04 PM [facility] Calcium 8.9 8.5 - 10.5 mg/dL LAB CHEMISTRY METHOD 09/30/2024 1:04 PM [facility] AST (SGOT) 22 10 - 42 unit/L LAB CHEMISTRY METHOD 09/30/2024 1:04 PM [facility] ALT (SGPT) 28 10 - 60 unit/L LAB CHEMISTRY METHOD 09/30/2024 1:04 PM [facility] Alkaline Phosphatase 47 42 - 121 unit/L LAB CHEMISTRY METHOD 09/30/2024 1:04 PM EST [facility] Total Protein 6.2 6.0 - 8.0 g/dL LAB CHEMISTRY METHOD 09/30/2024 1:04 PM [facility] Albumin 2.7(L) 3.2 - 5.0 g/dL LAB CHEMISTRY METHOD 09/30/2024 1:04 PM [facility] Total Bilirubin 0.6 0.0 - 1.4 mg/dL LAB CHEMISTRY METHOD 09/30/2024 1:04 PM [facility] Blood Venous blood specimen / Unknown Venipuncture / Unknown 09/30/2024 9:57 AM EST 09/30/2024 10:50 AM EST Isaca Stark MD LAB BLOOD ORDERABLES Final Resu lt Performing Organization Address City/[facility]/ZIP Co de Phone Number [facility] [address] [place] [address], [place] [phone] * Hemoglobin A1c (09/23/2024 8:20 AM EST) Hemoglobin A1C 5.3 <6.5 % LAB CHEMISTRY METHOD 09/23/2024 2:17 PM [facility] Mean Bld Glu Estim. 105 mg/dL LAB CHEMISTRY METHOD 09/23/2024 2:17 PM [facility] Blood Venous blood specimen / Unknown Venipuncture / Unknown 09/23/2024 8:20 AM EST 09/23/2024 12:06 PM EST Amina Burciaga MD LAB BLOOD ORDERABLES Final Resul t Performing Organization Address City/[facility]/ZIP Co de Phone Number [facility] [address] [place] [address], [place] [phone] from Last 3 Months or Most Recently Relevant to Health Maintenance Insurance MEDICAID [place] MED[place] Care Teams Postal Worker Relationship Specialty Start Date End Date Amina Burciaga MD [address] [place] [phone] PCP - General Hospitalist Medicine 09/11/24
--- OUTSIDE RECORDS SUMMARY | 2025-05-31 06:29 | XMS_ITS | Encounter Summary ---
Author Organization [facility], Address [address] [place] [address] Phone Care Team Providers Care It Architecture Analyst Name Role Phone Dandre Chavez MD Primary Care Provider [phone] Encounter Details Date Type Department Care Team (Late st Contact Info) Description 02/09/2022 Documentation Only [facility], [address] [place] [address] Faina Villegas PA Social History Tobacco Use [...] on filedocumented in this encounter Care Teams It Architecture Analyst Relationship Specialty Start Date End Date Dandre Chavez MD [address] [place] [address], [address] [place], [place] PCP - General 07/07/19 documented as of this encounter
--- OUTSIDE RECORDS SUMMARY | 2025-05-31 06:29 | XMS_ITS | Encounter Summary ---
Author Organization [facility] Address [address] [place] [address] Phone Care Team Providers Care Electrode Cleaner Name Role Phone Dandre Chavez MD Primary Care Provider [phone] Miguel Enciso MD Unavailable [phone] Encounter Details Date Type Department Care Team (Late st Contact Info) Description 08/18/2021 Procedure Pass Echo Lab [address] [id number] Social History Tobacco Use Types Packs/Day Years [...] on filedocumented in this encounter Care Teams Electrode Cleaner Relationship Specialty Start Date End Date Dandre Chavez MD [address] [place] [id number] PCP - General 09/05/17 Miguel Enciso MD [address] [place] [address], [address] [place], [place] [phone] Cardiology 05/28/24 documented as of this encounter Additional Source Comments The information contained in this document represents components of the legal health record. It is not the complete legal health record.[facility]
--- OUTSIDE RECORDS SUMMARY | 2025-05-31 06:29 | XMS_ITS | Encounter Summary ---
Author Organization [facility] Address [address] [place] [address] Phone Care Team Providers Care Home Worker Name Role Phone Dandre Chavez MD Primary Care Provider [phone] Miguel Enciso MD Unavailable [phone] Encounter Details Date Type Department Care Team (Late st Contact Info) Description 04/03/2022 Procedure Pass [facility] [address] [place] [address] Social History Tobacco Use Types Packs/Day Years [...] on filedocumented in this encounter Care Teams Home Worker Relationship Specialty Start Date End Date Dandre Chavez MD [address] [phone] PCP - General 09/05/17 Miguel Enciso MD [address] [place] [address], [address] [place], [place] [phone] Cardiology 05/28/24 documented as of this encounter Additional Source Comments The information contained in this document represents components of the legal health record. It is not the complete legal health record.[facility]
--- OUTSIDE RECORDS SUMMARY | 2025-05-31 06:29 | XMS_ITS | Encounter Summary ---
Author Organization [facility], Address [address] [place] [address] Phone Care Team Providers Care Swatch Folder Name Role Phone Dandre Chavez MD Primary Care Provider [phone] Encounter Details Date Type Department Care Team (Late st Contact Info) Description 09/25/2021 Documentation Only [facility], [address] [place] [address] Faina Villegas PA Social History Tobacco Use [...] on filedocumented in this encounter Care Teams Swatch Folder Relationship Specialty Start Date End Date Dandre Chavez MD [address] [place] [address], [address] [place], [place] PCP - General 07/07/19 documented as of this encounter
--- OUTSIDE RECORDS SUMMARY | 2025-05-31 06:29 | XMS_ITS | Clinical Summary ---
Author Organization [facility] Address [address] [place] [address] Phone Care Team Providers Care Tenant Coordinator Name Role Phone Dandre Chavez MD Primary Care Provider [phone] Miguel Enciso MD Unavailable [phone] Allergies Active Allergy Reactions Criticality Noted Date [...] Active ferrous sulfate 325 mg (65 mg [place] iron) EC tablet Take 325 mg by [...] focus on healthy food choices. 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 She presented with a non-ST relation SC September 2018 and had a new culprit [...] will need to have this completed at [facility]. She is aware that this is going [...] December. She will have this completed at [facility] due to having her stress test completed [...] this topic Medical Devices Implanted Type Area Cable Rigger Device Identifier Shelf Expiration Date Model / Serial / Lot Sensor Pulmonary Artery Delivery System Cardiomems - [id number] Implanted:Qt y: 1 on 04/03/2022 by Miguel Enciso MD at [facility] Implantable Monitor Left: Arterial [employer] [id number] 12/15/2023 CM PATIENT SYSTEM / [id number] / Description:Pulmonary artery Procedures Procedure Name Priority Date/Time Associated Diagnosis Comments COMPREHENSIVE METABOLIC PANEL Routine 04/18/2022 2:39 PM EDT Atherosclerosis of [place] coronary artery of [place] heart with angina pectoris Essential hypertension Ischemic cardiomyopathy PAD (peripheral artery disease) from Last 3 Months or Most Recently Relevant to Health Maintenance Results * (ABNORMAL) Comprehensive metabolic panel (04/18/2022 2:39 PM EDT) SODIUM 143 133 - 146 mmol/L [facility] POTASSIUM 4.5 3.3 - 5.1 mmol/L [facility] CHLORIDE 100 96 - 108 mmol/L [facility] CO2 34 21 - 35 mmol/L [facility] BUN 38(H) 6 - 19 mg/dL [facility] CREATININE 1.40 0.5 - 1.5 mg/dL [facility] GLUCOSE 163(H) 70 - 99 mg/dL [facility] ALBUMIN 4.0 3.9 - 4.8 g/dL [facility] TOTAL PROTEIN 7.5 6.5 - 8.0 g/dL [facility] CALCIUM 10.1 8.4 - 10.3 mg/dL [facility] ALKALINE PHOSPHATASE 94 39 - 117 U/L [facility] TOTAL BILIRUBIN 0.6 0.0 - 1.2 mg/dL [facility] AST 26 0 - 37 U/L [facility] ALT 12 0 - 40 U/L [facility] GLOBULIN 3.5 1 - 4.8 g/dL [facility] EGFR 39(L) >59 mL/min/1.7 3m2 [facility] Comment:Estimated glomerular filtration rate calculated using the CKD-EPI refit equation. ANION GAP 14 10 - 20 mmol/L [facility] Blood 04/18/2022 2:39 PM EDT 04/18/2022 2:42 PM EDT us Miguel Enciso MD LAB BLOOD ORDERABLES Final Result [facility] [address] [place] [address] from Last 3 Months or Most Recently Relevant to Health Maintenance Insurance * Guarantor: Amina Zamora Account Type Relation to Patient Date of Phone Billing Address Personal/Family Self 1945 [address] [place] [address] MEDICARE PART A & [place] MED[place] PREFERRED HMO REPLACEMENT [facility] [place] [address] MEDICARE PART A & B [place] MED[place] PREFERRED HMO REPLACEMENT [facility] [place] [address] MEDICARE PART A & B Member Subscriber Plan / Payer (Ef fective 2012-Present) Name:Amina Zamora Member ID:[id number] Relation to Subscriber:Self Name:Amina Zamora Subscriber ID:[id number] Payer ID:[id number] Group ID:Not on file Type:Medicare Address: [employer] [address] [place] [phone] [place] MEDICARE PREFERRED HMO REPLACEMENT MEDICARE PART A & B [place] MED[place]ARE PREFERRED HMO REPLACEMENT MEDICARE PART A & B [place] MED[place] PREFERRED HMO REPLACEMENT [facility] MEDICARE PART A & B [place] MED[place]ARE PREFERRED HMO REPLACEMENT MEDICARE PART A & B [place] MED[place] PREFERRED HMO REPLACEMENT [facility] MEDICARE PART A & B [place] MEDICARE PREFERRED HMO REPLACEMENT [facility] MEDICARE PART A & B [place] MEDICARE PREFERRED HMO REPLACEMENT [facility] Care Teams Tenant Coordinator Relationship Specialty Start Date End Date Dandre Chavez MD [address] [place] [id number] PCP - General 09/05/17 Miguel Enciso MD [address] [place] [phone] [email or web address] Cardiology 05/28/24 Additional Source Comments The information contained in this document represents components of the legal health record. It is not the complete legal health record.[facility]
--- OUTSIDE RECORDS SUMMARY | 2025-05-31 06:29 | XMS_ITS | Encounter Summary ---
Author Organization [facility] Address [address] [place] [address] Care Team Providers Care Hand Coke Drawer Name Role Phone Amina Burciaga MD Primary Care Provider [phone] Encounter Details Date Type Department Care Team (Late st Contact Info) Description 09/30/2024 Lab Requisition [facility] - Main Lab [address] [facility] [place] [address] Isaac Stark MD [address] [place] [address] [place] [address] Heart failure, unspecified [...] (ABNORMAL) Vitamin B12 (09/30/2024 9:57 AM EST) [facility] Vitamin B-12 1,028(H) 250 - 900 pcg/mL LAB CHEMISTRY METHOD 09/30/2024 1:04 PM [facility] Blood Venous blood specimen / Unknown Venipuncture / Unknown 09/30/2024 9:57 AM EST 09/30/2024 10:50 AM EST us Isaac Stark MD LAB BLOOD ORDERABLES Final Resu lt [facility] [address] [place] [address], [place] [phone] * (ABNORMAL) Comprehensive metabolic panel (09/30/2024 9:57 AM EST) [facility] Sodium 138 133 - 145 mmol/L LAB CHEMISTRY METHOD 09/30/2024 1:04 PM [facility] Potassium 3.7 3.5 - 5.5 mmol/L LAB CHEMISTRY METHOD 09/30/2024 1:04 PM [facility] Chloride 100 96 - 110 mmol/L LAB CHEMISTRY METHOD 09/30/2024 1:04 PM [facility] CO2 31 21 - 32 mmol/L LAB CHEMISTRY METHOD 09/30/2024 1:04 PM [facility] Anion Gap 7 3 - 11 LAB CHEMISTRY METHOD 09/30/2024 1:04 PM [facility] Glucose 228(H) 70 - 100 mg/dL LAB CHEMISTRY METHOD 09/30/2024 1:04 PM [facility] BUN 90(H) 5 - 25 mg/dL LAB CHEMISTRY METHOD 09/30/2024 1:04 PM [facility] Creatinine 2.19(H) 0.50 - 1.10 mg/dL LAB CHEMISTRY METHOD 09/30/2024 1:04 PM [facility] eGFR 23(L) >=60 mL/min/1. 73m2 LAB CHEMISTRY METHOD 09/30/2024 1:04 PM [facility] Comment:Calculation based on the Chronic Kidney Disease Epidemiology Collaboration (CKD-EPI) equation refit without adjustment for race. BUN/Creatinine Ratio 41.1 LAB CHEMISTRY METHOD 09/30/2024 1:04 PM [facility] Calcium 8.9 8.5 - 10.5 mg/dL LAB CHEMISTRY METHOD 09/30/2024 1:04 PM [facility] AST (SGOT) 22 10 - 42 unit/L LAB CHEMISTRY METHOD 09/30/2024 1:04 PM [facility] ALT (SGPT) 28 10 - 60 unit/L LAB CHEMISTRY METHOD 09/30/2024 1:04 PM [facility] Alkaline Phosphatase 47 42 - 121 unit/L LAB CHEMISTRY METHOD 09/30/2024 1:04 PM [facility] Total Protein 6.2 6.0 - 8.0 g/dL LAB CHEMISTRY METHOD 09/30/2024 1:04 PM [facility] Albumin 2.7(L) 3.2 - 5.0 g/dL LAB CHEMISTRY METHOD 09/30/2024 1:04 PM [facility] Total Bilirubin 0.6 0.0 - 1.4 mg/dL LAB CHEMISTRY METHOD 09/30/2024 1:04 PM [facility] Blood Venous blood specimen / Unknown Venipuncture / Unknown 09/30/2024 9:57 AM EST 09/30/2024 10:50 AM EST us Isaac Stark MD LAB BLOOD ORDERABLES Final Resu lt [facility] [address] [place] [address], * (ABNORMAL) Complete blood count (09/30/2024 9:57 AM EST) [facility] WBC 5.9 4.8 - 10.8 K/mcL LAB HEMETOLOGY METHOD 09/30/2024 12:25 PM [facility] RBC 3.80 3.80 - 4.80 M/mcL LAB HEMETOLOGY METHOD 09/30/2024 12:25 PM [facility] Hemoglobin 11.2(L) 11.5 - 16.0 g/dL LAB HEMETOLOGY METHOD 09/30/2024 12:25 PM [facility] Hematocrit 37.7 35.0 - 47.0 % LAB HEMETOLOGY METHOD 09/30/2024 12:25 PM [facility] MCV 98.2(H) 79.0 - 98.0 FL LAB HEMETOLOGY METHOD 09/30/2024 12:25 PM [facility] MCH 29.2 27.0 - 32.0 pcg LAB HEMETOLOGY METHOD 09/30/2024 12:25 PM [facility] MCHC 29.7(L) 32.0 - 37.0 g/dL LAB HEMETOLOGY METHOD 09/30/2024 12:25 PM [facility] RDW 17.7(H) 11.0 - 15.0 % LAB HEMETOLOGY METHOD 09/30/2024 12:25 PM [facility] Platelets 183 130 - 400 K/mcL LAB HEMETOLOGY METHOD 09/30/2024 12:25 PM [facility] MPV 11.7(H) 7.0 - 11.0 FL LAB HEMETOLOGY METHOD 09/30/2024 12:25 PM [facility] NRBC 0.0 <1.0 % LAB HEMETOLOGY METHOD 09/30/2024 12:25 PM [facility] NRBC Absolute 0.00 <0.10 K/mcL LAB HEMETOLOGY METHOD 09/30/2024 12:25 PM EST [facility] Blood Venous blood specimen / Unknown Venipuncture / Unknown 09/30/2024 9:57 AM EST 09/30/2024 10:50 AM EST us Isaac Stark MD LAB BLOOD ORDERABLES Final Resu lt Performing Organization Address City/[facility]/ZIP Co de Phone Number [facility] [address] [place] [address], [place] [phone] * Vitamin D 25 hydroxy (09/30/2024 9:57 AM EST) Vit D, 25-Hydroxy 54.9 30.0 - 80.0 ng/mL LAB CHEMISTRY METHOD 09/30/2024 12:48 PM EST [facility] Blood Venous blood specimen / Unknown Venipuncture / Unknown 09/30/2024 9:57 AM EST 09/30/2024 10:50 AM EST us Isaac Stark MD LAB BLOOD ORDERABLES Final Resu lt Performing Organization Address [facility]/ZIP Co de Phone Number [facility] [address] [place] [address], [place] [phone] documented in this encounter Visit Diagnoses Diagnosis Heart failure, unspecified (CMS/HCC V24, CMS/HCC V28) Heart failure, unspecified Vitamin D deficiency, unspecified documented in this encounter Care Teams Hand Coke Drawer Relationship Specialty Start Date End Date Amina Burciaga MD [address] [place] [phone] PCP - General Hospitalist Medicine 09/11/24 documented as of this encounter
--- OUTSIDE RECORDS SUMMARY | 2025-05-31 06:29 | XMS_ITS | Encounter Summary ---
Author Organization [facility], Address [address] [place] [address] Phone Care Team Providers Care Sales Professional Name Role Phone Dandre Chavez MD Primary Care Provider Encounter Details Date Type Department Care Team (Late st Contact Info) Description 10/30/2022 Documentation Only [facility], [address] [place] [address] Melissa Delgadillo [address] [place] [phone] Social History Tobacco Use Types Packs/Day Years [...] on filedocumented in this encounter Care Teams Sales Professional Relationship Specialty Start Date End Date Dandre Chavez MD [address] [place] [address], [address] [place], [place] PCP - General 07/07/19 documented as of this encounter
--- OUTSIDE RECORDS SUMMARY | 2025-05-31 06:29 | XMS_ITS | Encounter Summary ---
Author Organization [facility], Address [address] [place] [address] Phone Care Team Providers Care Body And Frame Man Name Role Phone Dandre Chavez MD Primary Care Provider [phone] Encounter Details Date Type Department Care Team (Late st Contact Info) Description 12/31/2022 Documentation Only [facility], [address] [place] [address] Melissa Delgadillo [address] [place] [phone] Social History Tobacco Use Types Packs/Day Years [...] on filedocumented in this encounter Care Teams Body And Frame Man Relationship Specialty Start Date End Date Dandre Chavez MD [address] [place] [address], [address] [place], [place] PCP - General 07/07/19 documented as of this encounter
--- OUTSIDE RECORDS SUMMARY | 2025-05-31 06:29 | XMS_ITS | Encounter Summary ---
Author Organization [facility] Address [address] [place] [address] Care Team Providers Care Cathead Worker Name Role Phone Amina Burciaga MD Primary Care Provider [phone] Encounter Details Date Type Department Care Team (Late st Contact Info) Description 08/10/2024 Lab Requisition [facility] - Main Lab 299 [facility] [address] Hortecnia Mcclellan MD [address] [id number] Type 2 diabetes mellitus without complications (CMS/HCC [...] unspecified documented in this encounter Care Teams Cathead Worker Relationship Specialty Start Date End Date Amina Burciaga MD [address] [place] [address] PCP - General Hospitalist Medicine 09/11/24 documented as of this encounter
--- OUTSIDE RECORDS SUMMARY | 2025-05-31 06:29 | XMS_ITS | Encounter Summary ---
Author Organization [facility] Address [address] [place], [place] [address] [place] [address] Phone Care Team Providers Care Mold Making Plastics Sheets Supervisor Name Role Phone Dandre Chavez MD Primary Care Provider [phone] Miguel Enciso MD Unavailable [phone] Encounter Details Date Type Department Care Team (Late st Contact Info) Description 07/01/2024 Procedure Pass [facility] [place] Referral Images [address] [facility] [address] [place] [address] Social History Tobacco Use Types Packs/Day Years [...] on filedocumented in this encounter Care Teams Mold Making Plastics Sheets Supervisor Relationship Specialty Start Date End Date Dandre Chavez MD [address] [place] [address] PCP - General 09/05/17 Miguel Enciso MD [address] [place] [address] [email or web address] Cardiology 05/28/24 documented as of this encounter Additional Source Comments The information contained in this document represents components of the legal health record. It is not the complete legal health record.[facility]
--- OUTSIDE RECORDS SUMMARY | 2025-05-31 06:29 | XMS_ITS | Encounter Summary ---
Author Organization [facility] Address [address] [place] [address] Care Team Providers Care Human Resources Associate Name Role Phone Amina Burciaga MD Primary Care Provider [phone] Encounter Details Date Type Department Care Team (Late st Contact Info) Description 07/13/2024 Lab Requisition [facility] - Main Lab 299 [facility] [place] [address] Hortencia Mcclellan MD [address] [id number] Type 2 diabetes mellitus without complications (CMS/HCC [...] mmol/L LAB CHEMISTRY METHOD 07/14/2024 9:03 AM [facility] LAB Potassium 3.8 3.5 - 5.5 mmol/L LAB CHEMISTRY METHOD 07/14/2024 9:03 AM [facility] LAB Chloride 105 96 - 110 mmol/L LAB CHEMISTRY METHOD 07/14/2024 9:03 AM [facility] LAB CO2 28 21 - 32 mmol/L LAB CHEMISTRY METHOD 07/14/2024 9:03 AM [facility] LAB Anion Gap 6 3 - 11 LAB CHEMISTRY METHOD 07/14/2024 9:03 AM [facility] LAB Glucose 105(H) 70 - 100 mg/dL LAB CHEMISTRY METHOD 07/14/2024 9:03 AM [facility] LAB BUN 70(H) 5 - 25 mg/dL LAB CHEMISTRY METHOD 07/14/2024 9:03 AM [facility] LAB Creatinine 3.26(H) 0.50 - 1.10 mg/dL LAB CHEMISTRY METHOD 07/14/2024 9:03 AM [facility] LAB eGFR 14(L) >=60 mL/min/1. 73m2 LAB CHEMISTRY METHOD 07/14/2024 9:03 AM [facility] LAB Comment:Calculation based on the Chronic Kidney Disease Epidemiology Collaboration (CKD-EPI) equation refit without adjustment for race. BUN/Creatinine Ratio 21.5 LAB CHEMISTRY METHOD 07/14/2024 9:03 AM [facility] LAB Calcium 8.6 8.5 - 10.5 mg/dL LAB CHEMISTRY METHOD 07/14/2024 9:03 AM [facility] LAB Blood Venous blood specimen / Unknown Venipuncture / Unknown 07/14/2024 6:08 AM EST 07/14/2024 8:03 AM EST us Hortencia Mcclellan MD LAB BLOOD ORDERABLES Fin al Result [facility] [address] [place] [address], * (ABNORMAL) Complete blood count (07/14/2024 6:08 AM EST) [facility] WBC 5.3 4.8 - 10.8 K/mcL LAB HEMETOLOGY METHOD 07/14/2024 8:32 AM [facility] LAB RBC 3.00(L) 3.80 - 4.80 M/mcL LAB HEMETOLOGY METHOD 07/14/2024 8:32 AM [facility] LAB Hemoglobin 8.3(L) 11.5 - 16.0 g/dL LAB HEMETOLOGY METHOD 07/14/2024 8:32 AM [facility] LAB Hematocrit 29.9(L) 35.0 - 47.0 % LAB HEMETOLOGY METHOD 07/14/2024 8:32 AM [facility] LAB MCV 101.4(H) 79.0 - 98.0 FL LAB HEMETOLOGY METHOD 07/14/2024 8:32 AM [facility] LAB MCH 28.1 27.0 - 32.0 pcg LAB HEMETOLOGY METHOD 07/14/2024 8:32 AM [facility] LAB MCHC 27.8(L) 32.0 - 37.0 g/dL LAB HEMETOLOGY METHOD 07/14/2024 8:32 AM [facility] LAB RDW 20.0(H) 11.0 - 15.0 % LAB HEMETOLOGY METHOD 07/14/2024 8:32 AM [facility] LAB Platelets 198 130 - 400 K/mcL LAB HEMETOLOGY METHOD 07/14/2024 8:32 AM [facility] LAB MPV 10.3 7.0 - 11.0 FL LAB HEMETOLOGY METHOD 07/14/2024 8:32 AM [facility] [...] al Result [facility] [address] [place] [address], documented in this encounter Visit Diagnoses Diagnosis Type 2 diabetes mellitus without complications (CMS/HCC V24, CMS/HCC V28) Heart failure, unspecified (CMS/HCC V24, CMS/HCC V28) Heart failure, unspecified documented in this encounter Care Teams Human Resources Associate Relationship Specialty Start Date End Date Amina Burciaga MD [address] [place] [address] PCP - General Hospitalist Medicine 09/11/24 documented as of this encounter
--- OUTSIDE RECORDS SUMMARY | 2025-05-31 06:29 | XMS_ITS | Encounter Summary ---
Author Organization [facility] Address [address] [place] [address] Care Team Providers Care Railway Equipment Operator Name Role Phone Amina Burciaga MD Primary Care Provider [phone] Encounter Details Date Type Department Care Team (Latest Contact Info) Description 09/23/2024 Lab Requisition [facility] - Main Lab 299 [facility] [place] [address] Amina Burciaga MD [address] [place] [address] Type 2 diabetes mellitus with [...] t [facility] [address] [place] [address], * (ABNORMAL) Comprehensive metabolic panel (09/23/2024 8:20 AM EST) Pathologist [facility] Sodium 140 133 - 145 mmol/L LAB CHEMISTRY METHOD 09/23/2024 4:37 PM [facility] LAB Potassium 3.9 3.5 - 5.5 mmol/L LAB CHEMISTRY METHOD 09/23/2024 4:37 PM [facility] LAB Chloride 102 96 - 110 mmol/L LAB CHEMISTRY METHOD 09/23/2024 4:37 PM [facility] LAB CO2 31 21 - 32 mmol/L LAB CHEMISTRY METHOD 09/23/2024 4:37 PM [facility] LAB Anion Gap 7 3 - 11 LAB CHEMISTRY METHOD 09/23/2024 4:37 PM [facility] Glucose 106(H) 70 - 100 mg/dL LAB CHEMISTRY METHOD 09/23/2024 4:37 PM [facility] BUN 82(H) 5 - 25 mg/dL LAB CHEMISTRY METHOD 09/23/2024 4:37 PM [facility] LAB Creatinine 2.46(H) 0.50 - 1.10 mg/dL LAB CHEMISTRY METHOD 09/23/2024 4:37 PM [facility] LAB eGFR 20(L) >=60 mL/min/1. 73m2 LAB CHEMISTRY METHOD 09/23/2024 4:37 PM [facility] LAB Comment:Calculation based on the Chronic Kidney Disease Epidemiology Collaboration (CKD-EPI) equation refit without adjustment for race. BUN/Creatinine Ratio 33.3 LAB CHEMISTRY METHOD 09/23/2024 4:37 PM [facility] Calcium 8.7 8.5 - 10.5 mg/dL LAB CHEMISTRY METHOD 09/23/2024 4:37 PM [facility] AST (SGOT) 17 10 - 42 unit/L LAB CHEMISTRY METHOD 09/23/2024 4:37 PM [facility] ALT (SGPT) 34 10 - 60 unit/L LAB CHEMISTRY METHOD 09/23/2024 4:37 PM [facility] Alkaline Phosphatase 57 42 - 121 unit/L LAB CHEMISTRY METHOD 09/23/2024 4:37 PM [facility] Total Protein 7.1 6.0 - 8.0 g/dL LAB CHEMISTRY METHOD 09/23/2024 4:37 PM [facility] Albumin 3.2 3.2 - 5.0 g/dL LAB CHEMISTRY METHOD 09/23/2024 4:37 PM [facility] Total Bilirubin 0.6 0.0 - 1.4 mg/dL LAB CHEMISTRY METHOD 09/23/2024 4:37 PM [facility] Blood Venous blood specimen / Unknown Venipuncture / Unknown 09/23/2024 8:20 AM EST 09/23/2024 12:06 PM EST us Amina Burciaga MD LAB BLOOD ORDERABLES Final Resul t [facility] LAB [address] [place] [address], * (ABNORMAL) Complete blood count (09/23/2024 8:20 AM EST) [facility] WBC 6.2 4.8 - 10.8 K/mcL LAB HEMETOLOGY METHOD 09/23/2024 12:38 PM [facility] RBC 3.60(L) 3.80 - 4.80 M/mcL LAB HEMETOLOGY METHOD 09/23/2024 12:38 PM [facility] Hemoglobin 10.5(L) 11.5 - 16.0 g/dL LAB HEMETOLOGY METHOD 09/23/2024 12:38 PM [facility] Hematocrit 36.5 35.0 - 47.0 % LAB HEMETOLOGY METHOD 09/23/2024 12:38 PM [facility] MCV 100.3(H) 79.0 - 98.0 FL LAB HEMETOLOGY METHOD 09/23/2024 12:38 PM [facility] LAB MCH 28.8 27.0 - 32.0 pcg LAB HEMETOLOGY METHOD 09/23/2024 12:38 PM [facility] LAB MCHC 28.8(L) 32.0 - 37.0 g/dL LAB HEMETOLOGY METHOD 09/23/2024 12:38 PM [facility] LAB RDW 18.4(H) 11.0 - 15.0 % LAB HEMETOLOGY METHOD 09/23/2024 12:38 PM [facility] LAB Platelets 254 130 - 400 K/mcL LAB HEMETOLOGY METHOD 09/23/2024 12:38 PM [facility] MPV 10.7 7.0 - 11.0 FL LAB HEMETOLOGY METHOD 09/23/2024 12:38 PM [facility] [...] t [facility] [address] [place] [address], documented in this encounter Visit Diagnoses Diagnosis Type 2 diabetes mellitus with unspecified complications (CMS/HCC V24, CMS/HCC V28) Unspecified systolic (congestive) heart failure (CMS/HCC V24, CMS/HCC V28) documented in this encounter Care Teams Railway Equipment Operator Relationship Specialty Start Date End Date Amina Burciaga MD [address] [place] [address] PCP - General Hospitalist Medicine 09/11/24 documented as of this encounter
--- OUTSIDE RECORDS SUMMARY | 2025-05-31 06:29 | XMS_ITS | Encounter Summary ---
Author Organization [facility] Address [address] [place] [address] Care Team Providers Care Pile Driving Supervisor Name Role Phone Amina Burciaga MD Primary Care Provider [phone] Encounter Details Date Type Department Care Team (Latest Contact Info) Description 09/11/2024 Lab Requisition [facility] - Main Lab 299 [facility] [place] [address] Amina Burciaga MD [address] [place] [address] Other intermission coordinator (current) drug therapy; Type 2 diabetes mellitus [...] COUNT Routine 09/11/2024 9:47 AM EST Other intermission coordinator (current) drug therapy Type 2 diabetes mellitus without complications (CMS/HCC) Heart failure, unspecified (CMS/HCC) MAGNESIUM Routine 09/11/2024 9:47 AM EST Other residential (current) drug therapy Type 2 diabetes mellitus without complications (CMS/HCC) Heart failure, unspecified (CMS/HCC) BASIC METABOLIC PANEL Routine 09/11/2024 9:47 AM EST Other residential (current) drug therapy Type 2 diabetes mellitus without complications (CMS/HCC) Heart failure, unspecified (CMS/HCC) documented in this encounter Results * Magnesium (09/11/2024 9:47 AM EST) [facility] Magnesium 2.1 1.9 - 2.6 mg/dL LAB CHEMISTRY METHOD 09/11/2024 12:45 PM [facility] LAB Blood Venous blood specimen / Unknown Venipuncture / Unknown 09/11/2024 9:47 AM EST 09/11/2024 11:29 AM EST Amina Burciaga MD LAB BLOOD ORDERABLES Final Resul t [facility] [address] [place] [address], * (ABNORMAL) Basic metabolic panel (09/11/2024 9:47 AM EST) [facility] Sodium 137 133 - 145 mmol/L [...] MD LAB BLOOD ORDERABLES Final Resul t [facility] [address] [place] [address], * (ABNORMAL) Complete blood count (09/11/2024 9:47 [...] LAB HEMETOLOGY METHOD 09/11/2024 11:47 AM EST [facility] LAB MCH 29.2 27.0 - 32.0 pcg LAB HEMETOLOGY METHOD 09/11/2024 11:47 AM [facility] LAB MCHC 28.5(L) 32.0 - 37.0 g/dL LAB HEMETOLOGY METHOD 09/11/2024 11:47 AM EST [facility] LAB RDW 20.6(H) 11.0 - 15.0 % LAB HEMETOLOGY METHOD 09/11/2024 11:47 AM EST [facility] LAB Platelets 180 130 - 400 K/mcL LAB HEMETOLOGY METHOD 09/11/2024 11:47 AM [facility] LAB MPV 9.9 7.0 - 11.0 FL LAB HEMETOLOGY METHOD 09/11/2024 11:47 AM EST [facility] LAB NRBC 0.0 <1.0 % LAB HEMETOLOGY METHOD 09/11/2024 11:47 AM [facility] LAB NRBC Absolute 0.00 <0.10 K/mcL LAB HEMETOLOGY METHOD 09/11/2024 11:47 AM [facility] LAB Blood Venous blood specimen / Unknown Venipuncture / Unknown 09/11/2024 9:47 AM EST 09/11/2024 11:29 AM EST us Amina Burciaga MD LAB BLOOD ORDERABLES Final Resul t [facility] [address] [place] [address], documented in this encounter Visit Diagnoses Diagnosis Other residential (current) drug therapy Type 2 diabetes mellitus without complications (CMS/HCC V24, CMS/HCC V28) Heart failure, unspecified (CMS/HCC V24, CMS/HCC V28) Heart failure, unspecified documented in this encounter Care Teams Pile Driving Supervisor Relationship Specialty Start Date End Date Amina Burciaga MD [address] [place] [address] PCP - General Hospitalist Medicine 09/11/24 documented as of this encounter
--- OUTSIDE RECORDS SUMMARY | 2025-05-31 06:29 | XMS_ITS | Encounter Summary ---
Author Organization [facility], Address [address] [place] [address] Phone Care Team Providers Care Research Geologist Name Role Phone Dandre Chavez MD Primary Care Provider [phone] Encounter Details Date Type Department Care Team (Late st Contact Info) Description 02/08/2022 Documentation Only [facility], [address] [place] [address] Faina Villegas PA Social History Tobacco Use [...] on filedocumented in this encounter Care Teams Research Geologist Relationship Specialty Start Date End Date Dandre Chavez MD [address] [place] [address], [address] [place], [place] PCP - General 07/07/19 documented as of this encounter
--- OUTSIDE RECORDS SUMMARY | 2025-05-31 06:29 | XMS_ITS | Encounter Summary ---
Author Organization [facility] Address [address] [place] [address] Phone Care Team Providers Care Social Work Lecturer Name Role Phone Dandre Chavez MD Primary Care Provider [phone] Miguel Enciso MD Unavailable [phone] Encounter Details Date Type Department Care Team (Latest Contact Info) Description 12/16/2018 Ancillary Orders Non-Invasive Cardiology [address] [place] [address] Cathy Browning NP [address] [place] [address] Atherosclerosis of [place] coronary artery of [place] heart with angina pectoris Social History Tobacco [...] AM EDT) Max BP Systolic 150 mmHg [facility] Max BP Diastolic 80 mmHg [facility] Max HR 89 BPM [facility] Resting HR 78 BPM [facility] Resting BP Systolic 150 mmHg [facility] Resting BP Diastolic 80 mmHg [facility] Peak METS 1.0 METS [facility] Peak HR 83 BPM [facility] Anatomical Region Laterality Modality Heart Other [...] this encounter Visit Diagnoses Diagnosis 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 It is not the complete legal health record.[facility]
--- OUTSIDE RECORDS SUMMARY | 2025-05-31 06:29 | XMS_ITS | Encounter Summary ---
Author Organization [facility], Address [address] [place] [address] Phone Care Team Providers Care Bottom Liner Name Role Phone Dandre Chavez MD Primary Care Provider [phone] Encounter Details Date Type Department Care Team (Late st Contact Info) Description 11/29/2023 Documentation Only [facility], [address] [place] [address] Radha Chatterjee [place] [address] [place] [phone] Social History Tobacco Use Types Packs/Day Years [...] on filedocumented in this encounter Care Teams Bottom Liner Relationship Specialty Start Date End Date Dandre Chavez MD [address] [place] [address], [address] [place], [place] PCP - General 07/07/19 documented as of this encounter
--- OUTSIDE RECORDS SUMMARY | 2025-05-31 06:29 | XMS_ITS | Encounter Summary ---
Author Organization [facility], Address [address] [place] [address] Phone Care Team Providers Care Remedial Project Manager Name Role Phone Dandre Chavez MD Primary Care Provider [phone] Encounter Details Date Type Department Care Team (Late st Contact Info) Description 10/12/2021 Documentation Only [facility], [address] [place] [address] Faina Villegas PA Social History Tobacco Use [...] on filedocumented in this encounter Care Teams Remedial Project Manager Relationship Specialty Start Date End Date Dandre Chavez MD [address] [place] [address], [address] [place], [place] PCP - General 07/07/19 documented as of this encounter
--- OUTSIDE RECORDS SUMMARY | 2025-05-31 06:29 | XMS_ITS | Encounter Summary ---
Author Organization [facility] Address [address] [place] [address] Phone Care Team Providers Care Case Fitter Name Role Phone Dandre Chavez MD Primary Care Provider [phone] Miguel Enciso MD Unavailable [phone] Encounter Details Date Type Department Care Team (Late st Contact Info) Description 12/20/2022 Procedure Pass Non-Invasive Cardiology [address] [place], [place] [phone] Social History Tobacco Use Types Packs/Day Years [...] on filedocumented in this encounter Care Teams Case Fitter Relationship Specialty Start Date End Date Dandre Chavez MD [address] [place] [id number] PCP - General 09/05/17 Miguel Enciso MD [address] [place] [address], [address] [place], [place] [phone] Cardiology 05/28/24 documented as of this encounter Additional Source Comments The information contained in this document represents components of the legal health record. It is not the complete legal health record.[facility]
--- OUTSIDE RECORDS SUMMARY | 2025-05-31 06:29 | XMS_ITS | Encounter Summary ---
Author Organization [facility] [place], Address [address] [place] [address] Phone Care Team Providers Care Crew Manager Name Role Phone Dandre Chavez MD Primary Care Provider [phone] Encounter Details Date Type Department Care Team (Late st Contact Info) Description 01/08/2025 Documentation Only [facility], [address] [place] [address] Radha Chatterjee [place] [address] [place] [phone] Social History Tobacco Use Types Packs/Day Years [...] on filedocumented in this encounter Care Teams Crew Manager Relationship Specialty Start Date End Date Dandre Chavez MD [address] [place] [address], [address] [place], [place] PCP - General 07/07/19 documented as of this encounter
--- OUTSIDE RECORDS SUMMARY | 2025-05-31 06:29 | XMS_ITS | Encounter Summary ---
Author Organization [facility] Address [address] [place] [address] Phone Care Team Providers Care Tile Molder Hand Name Role Phone Dandre Chavez MD Primary Care Provider [phone] Miguel Enciso MD Unavailable [phone] Encounter Details Date Type Department Care Team (Late st Contact Info) Description 12/21/2022 Procedure Pass Echo Lab [address] [id number] Social History Tobacco Use Types Packs/Day Years [...] on filedocumented in this encounter Care Teams Tile Molder Hand Relationship Specialty Start Date End Date Dandre Chavez MD [address] [place] [phone] PCP - General 09/05/17 Miguel Enciso MD [address] [facility], [address] [place], [place] [phone] Cardiology 05/28/24 documented as of this encounter Additional Source Comments The information contained in this document represents components of the legal health record. It is not the complete legal health record.[facility]
--- OUTSIDE RECORDS SUMMARY | 2025-05-31 06:29 | XMS_ITS | Encounter Summary ---
Author Organization [facility] [place], Address [address] [place] [address] Phone Care Team Providers Care Technical Illustrator Name Role Phone Dandre Chavez MD Primary Care Provider [phone] Encounter Details Date Type Department Care Team (Late st Contact Info) Description 08/02/2022 Documentation Only [facility], [address] [place] [address] Faina Villegas PA Social History Tobacco Use [...] on filedocumented in this encounter Care Teams Technical Illustrator Relationship Specialty Start Date End Date Dandre Chavez MD [address] [place] [address], [address] [place], [place] PCP - General 07/07/19 documented as of this encounter
--- OUTSIDE RECORDS SUMMARY | 2025-05-31 06:29 | XMS_ITS | Encounter Summary ---
Author Organization [facility], Address [address] [place] [address] Phone Care Team Providers Care Machining Department Supervisor Name Role Phone Dandre Chavez MD Primary Care Provider [phone] Encounter Details Date Type Department Care Team (Late st Contact Info) Description 08/06/2023 Documentation Only [facility], [address] [place] [address] Desi Rodriguez Social History Tobacco Use Types [...] on filedocumented in this encounter Care Teams Machining Department Supervisor Relationship Specialty Start Date End Date Dandre Chavez MD [address] [place] [address], [address] [place], [place] PCP - General 07/07/19 documented as of this encounter
--- OUTSIDE RECORDS SUMMARY | 2025-05-31 06:29 | XMS_ITS | Encounter Summary ---
Author Organization [facility] Address [address] [place], [place] [id number] [place] [address] Phone Care Team Providers Care Boat And Plant Utility Supervisor Name Role Phone Dandre Chavez MD Primary Care Provider [phone] Miguel Enciso MD Unavailable [phone] Encounter Details Date Type Department Care Team (Late st Contact Info) Description 07/01/2024 Procedure Pass [facility] [place] Referral Images [address] [facility] [address] [place] [address] Social History Tobacco Use Types Packs/Day Years Used Date Smoking Tobacco: Former Smokeless Tobacco: Never Alcohol Use Standard Drinks/Week Comments Yes 0 (1 standard drink = 0.6 oz pure alcohol) once a year on special occasions Education Answer Date Recorded Are you interested in more education? Not on aurna e 12/28/2022 Are you concerned about learning? [...] on filedocumented in this encounter Care Teams Boat And Plant Utility Supervisor Relationship Specialty Start Date End Date Dandre Chavez MD [address] [place] [address] PCP - General 09/05/17 Miguel Enciso MD [address] [place] [address] [email or web address] Cardiology 05/28/24 documented as of this encounter Additional Source Comments The information contained in this document represents components of the legal health record. It is not the complete legal health record.[facility]
--- OUTSIDE RECORDS SUMMARY | 2025-05-31 06:29 | XMS_ITS | Encounter Summary ---
Author Organization [facility], Address [address] [place] [address] Phone Care Team Providers Care District Captain Name Role Phone Dandre Chavez MD Primary Care Provider [phone] Encounter Details Date Type Department Care Team (Late st Contact Info) Description 02/09/2022 Documentation Only [facility], [address] [place] [address] Faina Villegas PA Social History Tobacco Use [...] on filedocumented in this encounter Care Teams District Captain Relationship Specialty Start Date End Date Dandre Chavez MD [address] [place] [address], [address] [place], [place] PCP - General 07/07/19 documented as of this encounter
== END 2025-05-31 06:26 | disposition home or self-care (01) ==
LOC: HO.MMNH2L 06:25
PROVIDERS: Visit Provider Student in an Organized Health Care Education/Training Program
DX: I50.9 Heart failure, unspecified (principal)
CPT/HCPCS: 36415; 80048; 85025

== ENCOUNTER 2025-06-02 20:00 | Outpatient (REF) | payer MEDICARE, SELFPAY ==
[2025-06-03 09:27] LABS: Appearance Urine Turbid; Glucose Urine UA Negative (Negative); PH >= 9.0 (5.0-9.0); Specific Gravity - Urine 1.010 (1.005-1.025); UMIC TRIGGER UA YES
[2025-06-03 09:43] LABS: Other Crystals Urine Present
== END 2025-06-02 20:01 | disposition home or self-care (01) ==
LOC: HO.MMNH2L 20:00
PROVIDERS: Visit Provider Physician Assistant Medical
DX: Z13.89 Encounter for screening for other disorder (principal)
CPT/HCPCS: 81001; 81003; 87086

== ENCOUNTER 2025-06-03 05:46 | Outpatient (REF) | payer MEDICARE, SELFPAY ==
--- OUTSIDE RECORDS SUMMARY | 2018-12-31 05:05 | XMS_ITS | Continuity of Care Document ---
Author Organization [facility] Address [address] [address] Phone Care Team Providers Care Banner Painter Name Role Phone Brodie Hinds DO Unavailable Unavailable Advance Directives Directive Yes / No Effective Date File Name No Information Encounters Encounter Description Practice Location Reason(s) For Visit Diagnoses Date Provider [facility], [address], [id number], [place] tel:[phone] [address] [place] [address] No Information 2018 Guzman Calloway. [address] [place] [address], [id number], [place]. tel:[phone] Family History Family Member Type Diagnosis Age [...]
--- OUTSIDE RECORDS SUMMARY | 2025-06-03 05:52 | XMS_ITS | Encounter Summary ---
Author Organization [facility] Address [address] [place] [address] Care Team Providers Care Screwhead Stoner And Polisher Name Role Phone Amina Burciaga MD Primary Care Provider [phone] Encounter Details Date Type Department Care Team (Late st Contact Info) Description 07/23/[address] [facility] - Main Lab [address] [place] [address] Hortencia Mcclellan MD [address] [phone] Chronic kidney disease, unspecified; Type 2 diabetes [...] LAB CHEMISTRY METHOD 07/23/2024 9:13 AM EST [facility] Potassium 3.8 3.5 - 5.5 mmol/L LAB CHEMISTRY METHOD 07/23/2024 9:13 AM EST [facility] Chloride 111(H) 96 - 110 [...] Fin al Result [facility] [address] [place] [address], documented in this encounter Visit Diagnoses Diagnosis Chronic kidney disease, unspecified Type 2 diabetes mellitus without complications (CMS/HCC V24, CMS/HCC V28) documented in this encounter Care Teams Screwhead Stoner And Polisher Relationship Specialty Start Date End Date Amina Burciaga MD [address] [place] [address] PCP - General Hospitalist Medicine 09/11/24 documented as of this encounter
--- OUTSIDE RECORDS SUMMARY | 2025-06-03 05:52 | XMS_ITS | Encounter Summary ---
Author Organization [facility] Address [address] [place] [address] Care Team Providers Care Gis Instructor Name Role Phone Amina Burciaga MD Primary Care Provider [phone] Encounter Details Date Type Department Care Team (Late st Contact Info) Description 08/03/2024 Lab Requisition [facility] - Main Lab [address] [facility] [place] [address] Hortencia Mcclellan MD [address] [id number] Type 2 diabetes mellitus without complications (CMS/HCC [...] mmol/L LAB CHEMISTRY METHOD 08/04/2024 9:42 AM [facility] Potassium 3.6 3.5 - 5.5 mmol/L LAB CHEMISTRY METHOD 08/04/2024 9:42 AM [facility] Chloride 106 96 - 110 mmol/L LAB CHEMISTRY METHOD 08/04/2024 9:42 AM [facility] CO2 29 21 - 32 mmol/L LAB CHEMISTRY METHOD 08/04/2024 9:42 AM [facility] Anion Gap 8 3 - 11 LAB CHEMISTRY METHOD 08/04/2024 9:42 AM [facility] Glucose 64(L) 70 - 100 mg/dL LAB CHEMISTRY METHOD 08/04/2024 9:42 AM [facility] BUN 44(H) 5 - 25 mg/dL LAB CHEMISTRY METHOD 08/04/2024 9:42 AM [facility] Creatinine 2.43(H) 0.50 - 1.10 mg/dL LAB CHEMISTRY METHOD 08/04/2024 9:42 AM [facility] eGFR 20(L) >=60 mL/min/1. 73m2 LAB CHEMISTRY METHOD 08/04/2024 9:42 AM [facility] Comment:Calculation based on the Chronic Kidney Disease Epidemiology Collaboration (CKD-EPI) equation refit without adjustment for race. BUN/Creatinine Ratio 18.1 LAB CHEMISTRY METHOD 08/04/2024 9:42 AM [facility] Calcium 8.8 8.5 - 10.5 mg/dL LAB CHEMISTRY METHOD 08/04/2024 9:42 AM [facility] Blood Venous blood specimen / Unknown Venipuncture / Unknown 08/04/2024 6:38 AM EST 08/04/2024 8:24 AM EST us Hortencia Mcclellan MD LAB BLOOD ORDERABLES Fin al Result [facility] [address] [place] [address], * (ABNORMAL) Complete blood count (08/04/2024 6:38 AM EST) [facility] WBC 4.5(L) 4.8 - 10.8 K/mcL LAB HEMETOLOGY METHOD 08/04/2024 9:19 AM [facility] RBC 3.20(L) 3.80 - 4.80 M/mcL LAB HEMETOLOGY METHOD 08/04/2024 9:19 AM [facility] Hemoglobin 9.0(L) 11.5 - 16.0 g/dL LAB HEMETOLOGY METHOD 08/04/2024 9:19 AM [facility] Hematocrit 31.8(L) 35.0 - 47.0 % LAB HEMETOLOGY METHOD 08/04/2024 9:19 AM [facility] MCV 100.0(H) 79.0 - 98.0 FL LAB HEMETOLOGY METHOD 08/04/2024 9:19 AM [facility] MCH 28.3 27.0 - 32.0 pcg LAB HEMETOLOGY METHOD 08/04/2024 9:19 AM [facility] MCHC 28.3(L) 32.0 - 37.0 g/dL LAB HEMETOLOGY METHOD 08/04/2024 9:19 AM [facility] RDW 18.9(H) 11.0 - 15.0 % LAB HEMETOLOGY METHOD 08/04/2024 9:19 AM [facility] Platelets 188 130 - 400 K/mcL LAB HEMETOLOGY METHOD 08/04/2024 9:19 AM [facility] MPV 10.6 7.0 - 11.0 FL LAB HEMETOLOGY METHOD 08/04/2024 9:19 AM [facility] NRBC 0.0 <1.0 % LAB HEMETOLOGY METHOD 08/04/2024 9:19 AM EST [facility] NRBC Absolute 0.00 <0.10 K/mcL LAB HEMETOLOGY METHOD 08/04/2024 9:19 AM EST [facility] Blood Venous blood specimen / Unknown Venipuncture / Unknown 08/04/2024 6:38 AM EST 08/04/2024 8:24 AM EST us Hortencia Mcclellan MD LAB BLOOD ORDERABLES Fin al Result [facility] [address] [place] [address], documented in this encounter Visit Diagnoses Diagnosis Type 2 diabetes mellitus without complications (CMS/HCC V24, CMS/HCC V28) Heart failure, unspecified (CMS/HCC V24, CMS/HCC V28) Heart failure, unspecified documented in this encounter Care Teams Gis Instructor Relationship Specialty Start Date End Date Amina Burciaga MD [address] [place] [address] PCP - General Hospitalist Medicine 09/11/24 documented as of this encounter
--- OUTSIDE RECORDS SUMMARY | 2025-06-03 05:52 | XMS_ITS | Encounter Summary ---
Author Organization [facility] Address [address] [place] [address] Care Team Providers Care Incident Response Coordinator Name Role Phone Amina Burciaga MD Primary Care Provider [phone] Encounter Details Date Type Department Care Team (Late st Contact Info) Description 07/20/2024 Lab Requisition [facility] - Main Lab [address] [facility] [place] [address] Hortencia Mcclellan MD 819 [facility] [place], [place] [phone] Type 2 diabetes mellitus without complications (CMS/HCC [...] mmol/L LAB CHEMISTRY METHOD 07/21/2024 8:50 AM [facility] Potassium 4.5 3.5 - 5.5 mmol/L LAB CHEMISTRY METHOD 07/21/2024 8:50 AM [facility] Chloride 108 96 - 110 mmol/L LAB CHEMISTRY METHOD 07/21/2024 8:50 AM [facility] CO2 27 21 - 32 mmol/L LAB CHEMISTRY METHOD 07/21/2024 8:50 AM [facility] Anion Gap 5 3 - 11 LAB CHEMISTRY METHOD 07/21/2024 8:50 AM [facility] Glucose 71 70 - 100 mg/dL LAB CHEMISTRY METHOD 07/21/2024 8:50 AM [facility] BUN 68(H) 5 - 25 mg/dL LAB CHEMISTRY METHOD 07/21/2024 8:50 AM [facility] Creatinine 3.00(H) 0.50 - 1.10 mg/dL LAB CHEMISTRY METHOD 07/21/2024 8:50 AM [facility] eGFR 16(L) >=60 mL/min/1. 73m2 LAB CHEMISTRY METHOD 07/21/2024 8:50 AM [facility] Comment:Calculation based on the Chronic Kidney Disease Epidemiology Collaboration (CKD-EPI) equation refit without adjustment for race. BUN/Creatinine Ratio 22.7 LAB CHEMISTRY METHOD 07/21/2024 8:50 AM [facility] Calcium 9.1 8.5 - 10.5 mg/dL LAB CHEMISTRY METHOD 07/21/2024 8:50 AM [facility] Blood Venous blood specimen / Unknown Venipuncture / Unknown 07/21/2024 5:53 AM EST 07/21/2024 7:55 AM EST us Hortencia Mcclellan MD LAB BLOOD ORDERABLES Fin al Result [facility] [address] [place] [address], * (ABNORMAL) Complete blood count (07/21/2024 5:53 AM EST) [facility] WBC 5.0 4.8 - 10.8 K/mcL LAB HEMETOLOGY METHOD 07/21/2024 8:26 AM [facility] RBC 2.90(L) 3.80 - 4.80 M/mcL LAB HEMETOLOGY METHOD 07/21/2024 8:26 AM [facility] Hemoglobin 8.2(L) 11.5 - 16.0 g/dL LAB HEMETOLOGY METHOD 07/21/2024 8:26 AM [facility] Hematocrit 29.0(L) 35.0 - 47.0 % LAB HEMETOLOGY METHOD 07/21/2024 8:26 AM [facility] MCV 100.7(H) 79.0 - 98.0 FL LAB HEMETOLOGY METHOD 07/21/2024 8:26 AM [facility] MCH 28.5 27.0 - 32.0 pcg LAB HEMETOLOGY METHOD 07/21/2024 8:26 AM [facility] MCHC 28.3(L) 32.0 - 37.0 g/dL LAB HEMETOLOGY METHOD 07/21/2024 8:26 AM [facility] RDW 19.2(H) 11.0 - 15.0 % LAB HEMETOLOGY METHOD 07/21/2024 8:26 AM [facility] Platelets 223 130 - 400 K/mcL LAB HEMETOLOGY METHOD 07/21/2024 8:26 AM [facility] MPV 10.0 7.0 - 11.0 FL LAB HEMETOLOGY METHOD 07/21/2024 8:26 AM [facility] NRBC 0.0 <1.0 % LAB HEMETOLOGY METHOD 07/21/2024 8:26 AM EST [facility] NRBC Absolute 0.00 <0.10 K/mcL LAB HEMETOLOGY METHOD 07/21/2024 8:26 AM EST [facility] Blood Venous blood specimen / Unknown Venipuncture / Unknown 07/21/2024 5:53 AM EST 07/21/2024 7:55 AM EST us Hortencia Mcclellan MD LAB BLOOD ORDERABLES Fin al Result [facility] [address] [place] [address], documented in this encounter Visit Diagnoses Diagnosis Type 2 diabetes mellitus without complications (CMS/HCC V24, CMS/HCC V28) Heart failure, unspecified (CMS/HCC V24, CMS/HCC V28) Heart failure, unspecified documented in this encounter Care Teams Incident Response Coordinator Relationship Specialty Start Date End Date Amina Burciaga MD [address] [place] [address] PCP - General Hospitalist Medicine 09/11/24 documented as of this encounter
--- OUTSIDE RECORDS SUMMARY | 2025-06-03 05:52 | XMS_ITS | Encounter Summary ---
Author Organization [facility], Address [address] [place] [address] Phone Care Team Providers Care Cardroom Plastic Card Grader Name Role Phone Dandre Chavez MD Primary Care Provider [phone] Encounter Details Date Type Department Care Team (Late st Contact Info) Description 02/08/2022 Documentation Only [facility], [address] [place] [address] Faina Villegas PA Social History Tobacco Use [...] on filedocumented in this encounter Care Teams Cardroom Plastic Card Grader Relationship Specialty Start Date End Date Dandre Chavez MD [address] [place] [address], [address] [place], [place] PCP - General 07/07/19 documented as of this encounter
--- OUTSIDE RECORDS SUMMARY | 2025-06-03 05:52 | XMS_ITS | Encounter Summary ---
Author Organization [facility], Address [address] [place] [address] Phone Care Team Providers Care Architecture Internship Name Role Phone Dandre Chavez MD Primary Care Provider [phone] Encounter Details Date Type Department Care Team (Late st Contact Info) Description 11/29/2023 Documentation Only [facility], [address] [place] [address] Radha Chatterjee [place] [address] [place] [phone] Social History Tobacco Use Types Packs/Day Years [...] on filedocumented in this encounter Care Teams Architecture Internship Relationship Specialty Start Date End Date Dandre Chavez MD [address] [place] [address], [address] [place], [place] PCP - General 07/07/19 documented as of this encounter
--- OUTSIDE RECORDS SUMMARY | 2025-06-03 05:52 | XMS_ITS | Encounter Summary ---
Author Organization [facility], Address [address] [place] [address] Phone Care Team Providers Care Refinery Operator Reforming Unit Name Role Phone Dandre Chavez MD Primary Care Provider [phone] Encounter Details Date Type Department Care Team (Late st Contact Info) Description 02/09/2022 Documentation Only [facility], [address] [place] [address] Faina Villegas PA Social History Tobacco Use [...] on filedocumented in this encounter Care Teams Refinery Operator Reforming Unit Relationship Specialty Start Date End Date Dandre Chavez MD [address] [place] [address], [address] [place], [place] PCP - General 07/07/19 documented as of this encounter
--- OUTSIDE RECORDS SUMMARY | 2025-06-03 05:52 | XMS_ITS | Encounter Summary ---
Author Organization [facility] Address [address] [place] [address] Care Team Providers Care Toolmaker Name Role Phone Amina Burciaga MD Primary Care Provider [phone] Encounter Details Date Type Department Care Team (Latest Contact Info) Description 09/07/2024 Lab Requisition [facility] - Main Lab [address] [facility] [place] [address] Amina Burciaga MD [address] [place] [address] Heart failure, unspecified (CMS/HCC V24, [...] unspecified Type 2 diabetes mellitus without complications ([facility]) documented in this encounter Results * Hemoglobin A1c (09/07/2024 6:24 AM EST) Pathologist [facility] Hemoglobin A1C 5.1 <6.5 % LAB CHEMISTRY METHOD 09/07/2024 11:11 AM EST [facility] Mean Bld Glu Estim. 100 mg/dL LAB CHEMISTRY METHOD 09/07/2024 11:[address] [facility] Blood Venous blood specimen / Unknown Venipuncture / Unknown 09/07/2024 6:24 AM EST 09/07/2024 8:12 AM EST Amina Burciaga MD LAB BLOOD ORDERABLES Final Resul t [facility] [address] [place] [address], * (ABNORMAL) Comprehensive metabolic panel (09/07/2024 6:24 AM EST) [facility] Sodium 140 133 - 145 mmol/L LAB CHEMISTRY METHOD 09/07/2024 9:[address] [facility] Potassium 3.8 3.5 - 5.5 mmol/L LAB CHEMISTRY METHOD 09/07/2024 9:[address] [facility] Chloride 106 96 - 110 mmol/L LAB CHEMISTRY METHOD 09/07/2024 9:[address] [facility] CO2 28 21 - 32 mmol/L LAB CHEMISTRY METHOD 09/07/2024 9:[address] [facility] Anion Gap 6 3 - 11 LAB CHEMISTRY METHOD 09/07/2024 9:[address] [facility] Glucose 61(L) 70 - 100 mg/dL LAB CHEMISTRY METHOD 09/07/2024 9:[address] [facility] BUN 59(H) 5 - 25 mg/dL LAB CHEMISTRY METHOD 09/07/2024 9:[address] [facility] Creatinine 3.13(H) 0.50 - 1.10 mg/dL LAB CHEMISTRY METHOD 09/07/2024 9:[address] [facility] eGFR 15(L) >=60 mL/min/1. 73m2 LAB CHEMISTRY METHOD 09/07/2024 9:[address] [facility] Comment:Calculation based on the Chronic Kidney Disease Epidemiology Collaboration (CKD-EPI) equation refit without adjustment for race. BUN/Creatinine Ratio 18.8 LAB CHEMISTRY METHOD 09/07/2024 9:[address] [facility] Calcium 9.0 8.5 - 10.5 mg/dL LAB CHEMISTRY METHOD 09/07/2024 9:[address] [facility] AST (SGOT) 17 10 - 42 unit/L LAB CHEMISTRY METHOD 09/07/2024 9:[address] [facility] ALT (SGPT) 20 10 - 60 unit/L LAB CHEMISTRY METHOD 09/07/2024 9:[address] [facility] Alkaline Phosphatase 60 42 - 121 unit/L LAB CHEMISTRY METHOD 09/07/2024 9:[address] [facility] Total Protein 6.9 6.0 - 8.0 g/dL LAB CHEMISTRY METHOD 09/07/2024 9:[address] [facility] Albumin 3.0(L) 3.2 - 5.0 g/dL LAB CHEMISTRY METHOD 09/07/2024 9:[address] [facility] Total Bilirubin 0.5 0.0 - 1.4 mg/dL LAB CHEMISTRY METHOD 09/07/2024 9:[address] [facility] Blood Venous blood specimen / Unknown Venipuncture / Unknown 09/07/2024 6:24 AM EST 09/07/2024 8:12 AM EST us Amina Burciaga MD LAB BLOOD ORDERABLES Final Resul t [facility] [address] [place] [address], * (ABNORMAL) Complete blood count (09/07/2024 6:24 AM EST) [facility] Signature WBC 4.7(L) 4.8 - 10.8 K/mcL LAB HEMETOLOGY METHOD 09/07/2024 8:[address] [facility] RBC 3.00(L) 3.80 - 4.80 M/mcL LAB HEMETOLOGY METHOD 09/07/2024 8:[address] [facility] Hemoglobin 8.9(L) 11.5 - 16.0 g/dL LAB HEMETOLOGY METHOD 09/07/2024 8:[address] [facility] Hematocrit 30.6(L) 35.0 - 47.0 % LAB HEMETOLOGY METHOD 09/07/2024 8:[address] [facility] MCV 101.7(H) 79.0 - 98.0 FL LAB HEMETOLOGY METHOD 09/07/2024 8:[address] [facility] MCH 29.6 27.0 - 32.0 pcg LAB HEMETOLOGY METHOD 09/07/2024 8:[address] [facility] MCHC 29.1(L) 32.0 - 37.0 g/dL LAB HEMETOLOGY METHOD 09/07/2024 8:[address] [facility] RDW 20.1(H) 11.0 - 15.0 % LAB HEMETOLOGY METHOD 09/07/2024 8:[address] [facility] Platelets 196 130 - 400 K/mcL LAB HEMETOLOGY METHOD 09/07/2024 8:[address] [facility] MPV 10.0 7.0 - 11.0 FL LAB HEMETOLOGY METHOD 09/07/2024 8:[address] [facility] NRBC 0.0 <1.0 % LAB HEMETOLOGY METHOD 09/07/2024 8:53 AM EST [facility] NRBC Absolute 0.00 <0.10 K/mcL LAB HEMETOLOGY METHOD 09/07/2024 8:53 AM EST [facility] Blood Venous blood specimen / Unknown Venipuncture / Unknown 09/07/2024 6:24 AM EST 09/07/2024 8:12 AM EST us Amina Burciaga MD LAB BLOOD ORDERABLES Final Resul t [facility] [address] [place] [address], documented in this encounter Visit Diagnoses Diagnosis Heart failure, unspecified (CMS/HCC V24, CMS/HCC V28) Heart failure, unspecified Chronic kidney disease, unspecified Type 2 diabetes mellitus without complications (CMS/HCC V24, CMS/HCC V28) documented in this encounter Care Teams Toolmaker Relationship Specialty Start Date End Date Amina Burciaga MD [address] [place] [address] PCP - General Hospitalist Medicine 09/11/24 documented as of this encounter
--- OUTSIDE RECORDS SUMMARY | 2025-06-03 05:52 | XMS_ITS | Encounter Summary ---
Author Organization [facility], Address [address] [place] [address] Phone Care Team Providers Care Account Director Name Role Phone Dandre Chavez MD Primary Care Provider Encounter Details Date Type Department Care Team (Late st Contact Info) Description 12/31/2022 Documentation Only [facility], [address] [place] [address] Melissa Delgadillo [address] [place] [phone] Social History Tobacco Use Types Packs/Day Years [...] on filedocumented in this encounter Care Teams Account Director Relationship Specialty Start Date End Date Dandre Chavez MD [address] [place] [address], [address] [place], [place] PCP - General 07/07/19 documented as of this encounter
--- OUTSIDE RECORDS SUMMARY | 2025-06-03 05:52 | XMS_ITS | Encounter Summary ---
Author Organization [facility] Address [address] [place] [address] Phone Care Team Providers Care Review Coordinator Name Role Phone Dandre Chavez MD Primary Care Provider [phone] Miguel Enciso MD Unavailable Encounter Details Date Type Department Care Team (Late st Contact Info) Description 08/18/2021 Procedure Pass Echo Lab [address] [phone] Social History Tobacco Use Types Packs/Day Years [...] on filedocumented in this encounter Care Teams Review Coordinator Relationship Specialty Start Date End Date Dandre Chavez MD [address] [place] [address] [phone] PCP - General 09/05/17 Miguel Enciso MD [address] [place] [address], [address] [place], [place] [phone] Cardiology 05/28/24 documented as of this encounter Additional Source Comments The information contained in this document represents components of the legal health record. It is not the complete legal health record.[facility]
--- OUTSIDE RECORDS SUMMARY | 2025-06-03 05:52 | XMS_ITS | Encounter Summary ---
Author Organization [facility] Address [address] [place] [phone] Phone Care Team Providers Care Invoice Classification Clerk Name Role Phone Dandre Chavez MD Primary Care Provider [phone] Miguel Enciso MD Unavailable [phone] Encounter Details Date Type Department Care Team (Latest Contact Info) Description 12/16/2018 Ancillary Orders Non-Invasive Cardiology [address] [place] [address] Cathy Browning NP [address] [place] [address] Atherosclerosis of [place] coronary artery of [place] heart with angina pectoris Social History Tobacco [...] AM EDT) Max BP Systolic 150 mmHg [facility] Max BP Diastolic 80 mmHg [facility] Max HR 89 BPM [facility] Resting HR 78 BPM [facility] Resting BP Systolic 150 mmHg [facility] Resting BP Diastolic 80 mmHg [facility] Peak METS 1.0 METS [facility] Peak HR 83 BPM [facility] Anatomical Region Laterality Modality Heart Other [...] this encounter Visit Diagnoses Diagnosis 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 It is not the complete legal health record.[facility]
--- OUTSIDE RECORDS SUMMARY | 2025-06-03 05:52 | XMS_ITS | Encounter Summary ---
Author Organization [facility] [address] Address [address] [place] [address] Care Team Providers Care Bioassayist Name Role Phone Amina Burciaga MD Primary Care Provider [phone] Encounter Details Date Type Department Care Team (Late st Contact Info) Description 09/30/2024 Lab Requisition [facility] - Main Lab 299 [facility] [place] [address] Isaac Stark MD [address] [place] [address] [place] [address] Heart failure, unspecified [...] (ABNORMAL) Vitamin B12 (09/30/2024 9:57 AM EST) [facility] Vitamin B-12 1,028(H) 250 - 900 pcg/mL LAB CHEMISTRY METHOD 09/30/2024 1:04 PM [facility] Blood Venous blood specimen / Unknown Venipuncture / Unknown 09/30/2024 9:57 AM EST 09/30/2024 10:50 AM EST us Isaac Stark MD LAB BLOOD ORDERABLES Final Resu lt [facility] [address] [place] [address], [place] [phone] * (ABNORMAL) Comprehensive metabolic panel (09/30/2024 9:57 AM EST) [facility] Sodium 138 133 - 145 mmol/L LAB CHEMISTRY METHOD 09/30/2024 1:04 PM [facility] Potassium 3.7 3.5 - 5.5 mmol/L LAB CHEMISTRY METHOD 09/30/2024 1:04 PM [facility] Chloride 100 96 - 110 mmol/L LAB CHEMISTRY METHOD 09/30/2024 1:04 PM [facility] CO2 31 21 - 32 mmol/L LAB CHEMISTRY METHOD 09/30/2024 1:04 PM [facility] Anion Gap 7 3 - 11 LAB CHEMISTRY METHOD 09/30/2024 1:04 PM [facility] Glucose 228(H) 70 - 100 mg/dL LAB CHEMISTRY METHOD 09/30/2024 1:04 PM [facility] BUN 90(H) 5 - 25 mg/dL LAB CHEMISTRY METHOD 09/30/2024 1:04 PM [facility] Creatinine 2.19(H) 0.50 - 1.10 mg/dL LAB CHEMISTRY METHOD 09/30/2024 1:04 PM [facility] eGFR 23(L) >=60 mL/min/1. 73m2 LAB CHEMISTRY METHOD 09/30/2024 1:04 PM [facility] Comment:Calculation based on the Chronic Kidney Disease Epidemiology Collaboration (CKD-EPI) equation refit without adjustment for race. BUN/Creatinine Ratio 41.1 LAB CHEMISTRY METHOD 09/30/2024 1:04 PM [facility] Calcium 8.9 8.5 - 10.5 mg/dL LAB CHEMISTRY METHOD 09/30/2024 1:04 PM [facility] AST (SGOT) 22 10 - 42 unit/L LAB CHEMISTRY METHOD 09/30/2024 1:04 PM [facility] ALT (SGPT) 28 10 - 60 unit/L LAB CHEMISTRY METHOD 09/30/2024 1:04 PM [facility] Alkaline Phosphatase 47 42 - 121 unit/L LAB CHEMISTRY METHOD 09/30/2024 1:04 PM [facility] Total Protein 6.2 6.0 - 8.0 g/dL LAB CHEMISTRY METHOD 09/30/2024 1:04 PM [facility] Albumin 2.7(L) 3.2 - 5.0 g/dL LAB CHEMISTRY METHOD 09/30/2024 1:04 PM [facility] Total Bilirubin 0.6 0.0 - 1.4 mg/dL LAB CHEMISTRY METHOD 09/30/2024 1:04 PM [facility] Blood Venous blood specimen / Unknown Venipuncture / Unknown 09/30/2024 9:57 AM EST 09/30/2024 10:50 AM EST us Isaac Stark MD LAB BLOOD ORDERABLES Final Resu lt [facility] [address] [place] [address], * (ABNORMAL) Complete blood count (09/30/2024 9:57 AM EST) [facility] WBC 5.9 4.8 - 10.8 K/mcL LAB HEMETOLOGY METHOD 09/30/2024 12:25 PM [facility] RBC 3.80 3.80 - 4.80 M/mcL LAB HEMETOLOGY METHOD 09/30/2024 12:25 PM [facility] Hemoglobin 11.2(L) 11.5 - 16.0 g/dL LAB HEMETOLOGY METHOD 09/30/2024 12:25 PM [facility] Hematocrit 37.7 35.0 - 47.0 % LAB HEMETOLOGY METHOD 09/30/2024 12:25 PM [facility] MCV 98.2(H) 79.0 - 98.0 FL LAB HEMETOLOGY METHOD 09/30/2024 12:25 PM [facility] MCH 29.2 27.0 - 32.0 pcg LAB HEMETOLOGY METHOD 09/30/2024 12:25 PM [facility] MCHC 29.7(L) 32.0 - 37.0 g/dL LAB HEMETOLOGY METHOD 09/30/2024 12:25 PM [facility] RDW 17.7(H) 11.0 - 15.0 % LAB HEMETOLOGY METHOD 09/30/2024 12:25 PM [facility] Platelets 183 130 - 400 K/mcL LAB HEMETOLOGY METHOD 09/30/2024 12:25 PM [facility] MPV 11.7(H) 7.0 - 11.0 FL LAB HEMETOLOGY METHOD 09/30/2024 12:25 PM [facility] NRBC 0.0 <1.0 % LAB HEMETOLOGY METHOD 09/30/2024 12:25 PM [facility] NRBC Absolute 0.00 <0.10 K/mcL LAB HEMETOLOGY METHOD 09/30/2024 12:25 PM EST [facility] Blood Venous blood specimen / Unknown Venipuncture / Unknown 09/30/2024 9:57 AM EST 09/30/2024 10:50 AM EST us Isaac Stark MD LAB BLOOD ORDERABLES Final Resu lt Performing Organization Address City/[facility]/ZIP Co de Phone Number [facility] [address] [place] [address], [place] [phone] * Vitamin D 25 hydroxy (09/30/2024 9:57 AM EST) Vit D, 25-Hydroxy 54.9 30.0 - 80.0 ng/mL LAB CHEMISTRY METHOD 09/30/2024 12:48 PM EST [facility] Blood Venous blood specimen / Unknown Venipuncture / Unknown 09/30/2024 9:57 AM EST 09/30/2024 10:50 AM EST us Isaac Stark MD LAB BLOOD ORDERABLES Final Resu lt Performing Organization Address [facility]/ZIP Co de Phone Number [facility] [address] [place] [address], [place] [phone] documented in this encounter Visit Diagnoses Diagnosis Heart failure, unspecified (CMS/HCC V24, CMS/HCC V28) Heart failure, unspecified Vitamin D deficiency, unspecified documented in this encounter Care Teams Bioassayist Relationship Specialty Start Date End Date Amina Burciaga MD [address] [place] [phone] PCP - General Hospitalist Medicine 09/11/24 documented as of this encounter
--- OUTSIDE RECORDS SUMMARY | 2025-06-03 05:52 | XMS_ITS | Encounter Summary ---
Author Organization [facility] Address [address] [place], [place] [address] [place] [address] Phone Care Team Providers Care Dredge Pumper Name Role Phone Dandre Chavez MD Primary Care Provider [phone] Miguel Enciso MD Unavailable [phone] Encounter Details Date Type Department Care Team (Late st Contact Info) Description 07/01/2024 Procedure Pass [facility] Cardiology Referral Images [address] [facility] [address] [place] [address] Social History Tobacco Use Types Packs/Day Years [...] on filedocumented in this encounter Care Teams Dredge Pumper Relationship Specialty Start Date End Date Dandre Chavez MD [address] [place] [address] PCP - General 09/05/17 Miguel Enciso MD [address] [place] [address] [email or web address] Cardiology 05/28/24 documented as of this encounter Additional Source Comments The information contained in this document represents components of the legal health record. It is not the complete legal health record.[facility]
--- OUTSIDE RECORDS SUMMARY | 2025-06-03 05:52 | XMS_ITS | Encounter Summary ---
Author Organization [facility] Address [address] [place] [address] Care Team Providers Care Sales Support Advisor Name Role Phone Amina Burciaga MD Primary Care Provider [phone] Encounter Details Date Type Department Care Team (Late st Contact Info) Description 08/10/2024 Lab Requisition [facility] - Main Lab 299 [facility] [employer] [place] [address] Hortencia Mcclellan MD [address] [id number] Type 2 diabetes mellitus without complications (CMS/HCC [...] unspecified documented in this encounter Care Teams Sales Support Advisor Relationship Specialty Start Date End Date Amina Burciaga MD [address] [place] [address] PCP - General Hospitalist Medicine 09/11/24 documented as of this encounter
--- OUTSIDE RECORDS SUMMARY | 2025-06-03 05:52 | XMS_ITS | Encounter Summary ---
Author Organization [facility], Address [address] [place] [address] Phone Care Team Providers Care Public Health Outreach Worker Name Role Phone Dandre Chavez MD Primary Care Provider Encounter Details Date Type Department Care Team (Late st Contact Info) Description 09/25/2021 Documentation Only [facility], [address] [place] [address] Faina Villegas PA Social History Tobacco Use [...] in this encounter Care Teams Public Health Outreach Worker Relationship Specialty Start Date End Date Dandre Chavez MD [address] [place] [address], [address] [place], [place] PCP - General 07/07/19 documented as of this encounter
--- OUTSIDE RECORDS SUMMARY | 2025-06-03 05:52 | XMS_ITS | Encounter Summary ---
Author Organization [facility] Address [address] [place] [address] Care Team Providers Care Chief Science Officer Name Role Phone Amina Burciaga MD Primary Care Provider [phone] Encounter Details Date Type Department Care Team (Latest Contact Info) Description 09/23/2024 Lab Requisition [facility] - Main Lab 299 [facility] [place] [address] Amina Burciaga MD [address] [place] [address] Type 2 diabetes mellitus with [...] Resul t [facility] [address] [place] [address], * (ABNORMAL) Comprehensive metabolic panel (09/23/2024 8:20 AM EST) Pathologist [facility] Sodium 140 133 - 145 mmol/L LAB CHEMISTRY METHOD 09/23/2024 4:37 PM [facility] Potassium 3.9 3.5 - 5.5 mmol/L LAB CHEMISTRY METHOD 09/23/2024 4:37 PM [facility] Chloride 102 96 - 110 mmol/L LAB CHEMISTRY METHOD 09/23/2024 4:37 PM [facility] CO2 31 21 - 32 mmol/L LAB CHEMISTRY METHOD 09/23/2024 4:37 PM [facility] Anion Gap 7 3 - 11 LAB CHEMISTRY METHOD 09/23/2024 4:37 PM [facility] Glucose 106(H) 70 - 100 mg/dL LAB CHEMISTRY METHOD 09/23/2024 4:37 PM [facility] BUN 82(H) 5 - 25 mg/dL LAB CHEMISTRY METHOD 09/23/2024 4:37 PM [facility] Creatinine 2.46(H) 0.50 - 1.10 mg/dL LAB CHEMISTRY METHOD 09/23/2024 4:37 PM [facility] eGFR 20(L) >=60 mL/min/1. 73m2 LAB CHEMISTRY METHOD 09/23/2024 4:37 PM [facility] Comment:Calculation based on the Chronic Kidney Disease Epidemiology Collaboration (CKD-EPI) equation refit without adjustment for race. BUN/Creatinine Ratio 33.3 LAB CHEMISTRY METHOD 09/23/2024 4:37 PM [facility] Calcium 8.7 8.5 - 10.5 mg/dL LAB CHEMISTRY METHOD 09/23/2024 4:37 PM [facility] AST (SGOT) 17 10 - 42 unit/L LAB CHEMISTRY METHOD 09/23/2024 4:37 PM [facility] ALT (SGPT) 34 10 - 60 unit/L LAB CHEMISTRY METHOD 09/23/2024 4:37 PM [facility] Alkaline Phosphatase 57 42 - 121 unit/L LAB CHEMISTRY METHOD 09/23/2024 4:37 PM [facility] Total Protein 7.1 6.0 - 8.0 g/dL LAB CHEMISTRY METHOD 09/23/2024 4:37 PM [facility] Albumin 3.2 3.2 - 5.0 g/dL LAB CHEMISTRY METHOD 09/23/2024 4:37 PM [facility] Total Bilirubin 0.6 0.0 - 1.4 mg/dL LAB CHEMISTRY METHOD 09/23/2024 4:37 PM [facility] Blood Venous blood specimen / Unknown Venipuncture / Unknown 09/23/2024 8:20 AM EST 09/23/2024 12:06 PM EST us Amina Burciaga MD LAB BLOOD ORDERABLES Final Resul t [facility] [address] [place] [address], * (ABNORMAL) Complete blood count (09/23/2024 8:20 AM EST) [facility] WBC 6.2 4.8 - 10.8 K/mcL LAB HEMETOLOGY METHOD 09/23/2024 12:38 PM [facility] RBC 3.60(L) 3.80 - 4.80 M/mcL LAB HEMETOLOGY METHOD 09/23/2024 12:38 PM [facility] Hemoglobin 10.5(L) 11.5 - 16.0 g/dL LAB HEMETOLOGY METHOD 09/23/2024 12:38 PM [facility] Hematocrit 36.5 35.0 - 47.0 % LAB HEMETOLOGY METHOD 09/23/2024 12:38 PM [facility] MCV 100.3(H) 79.0 - 98.0 FL LAB HEMETOLOGY METHOD 09/23/2024 12:38 PM [facility] MCH 28.8 27.0 - 32.0 pcg LAB HEMETOLOGY METHOD 09/23/2024 12:38 PM [facility] MCHC 28.8(L) 32.0 - 37.0 g/dL LAB HEMETOLOGY METHOD 09/23/2024 12:38 PM [facility] RDW 18.4(H) 11.0 - 15.0 % LAB HEMETOLOGY METHOD 09/23/2024 12:38 PM [facility] Platelets 254 130 - 400 K/mcL LAB HEMETOLOGY METHOD 09/23/2024 12:38 PM [facility] MPV 10.7 7.0 - 11.0 FL LAB HEMETOLOGY METHOD 09/23/2024 12:38 PM [facility] NRBC 0.0 <1.0 % [...] Resul t [facility] [address] [place] [address], documented in this encounter Visit Diagnoses Diagnosis Type 2 diabetes mellitus with unspecified complications (CMS/HCC V24, CMS/HCC V28) Unspecified systolic (congestive) heart failure (CMS/HCC V24, CMS/HCC V28) documented in this encounter Care Teams Chief Science Officer Relationship Specialty Start Date End Date Amina Burciaga MD [address] [place] [address] PCP - General Hospitalist Medicine 09/11/24 documented as of this encounter
--- OUTSIDE RECORDS SUMMARY | 2025-06-03 05:52 | XMS_ITS | Clinical Summary ---
Author Organization [address] Address [address] [place] [address] Phone Care Team Providers Care Job Honer Name Role Phone Amina Burciaga MD Primary Care Provider [phone] Immunizations Immunization Administration Dates Next Due Pfizer [...] LAB CHEMISTRY METHOD 09/30/2024 1:04 PM EST [facility] Total Protein 6.2 [...] City/[facility]/ZIP Co de Phone Number [facility] [address] [place] [address], [place] [phone] * Hemoglobin A1c (09/23/2024 8:20 AM EST) Hemoglobin A1C 5.3 <6.5 % LAB CHEMISTRY METHOD 09/23/2024 2:17 PM [facility] Mean Bld Glu Estim. 105 mg/dL LAB CHEMISTRY METHOD 09/23/2024 2:17 PM [facility] Blood Venous blood specimen / Unknown Venipuncture / Unknown 09/23/2024 8:20 AM EST 09/23/2024 12:06 PM EST Amina Burciaga MD LAB BLOOD ORDERABLES Final Resul t Performing Organization Address City/[facility]/ZIP Co de Phone Number [facility] [address] [place] [address], [place] [phone] from Last 3 Months or Most Recently Relevant to Health Maintenance Insurance [place] [employer] Care Teams Job Honer Relationship Specialty Start Date End Date Amina Burciaga MD [address] [place] [address] PCP - General Hospitalist Medicine 09/11/24
--- OUTSIDE RECORDS SUMMARY | 2025-06-03 05:52 | XMS_ITS | Encounter Summary ---
Author Organization [facility] Address [address] [place] [address] Care Team Providers Care Cable Tender Name Role Phone Amina Burciaga MD Primary Care Provider [phone] Encounter Details Date Type Department Care Team (Late st Contact Info) Description 07/13/2024 Lab Requisition [facility] - Main Lab 299 [facility] [place] [address] Hortencia Mcclellan MD [address] [id number] Type 2 diabetes mellitus without complications (CMS/HCC [...] mmol/L LAB CHEMISTRY METHOD 07/14/2024 9:03 AM [facility] Potassium 3.8 3.5 - 5.5 mmol/L LAB CHEMISTRY METHOD 07/14/2024 9:03 AM [facility] Chloride 105 96 - 110 mmol/L LAB CHEMISTRY METHOD 07/14/2024 9:03 AM [facility] CO2 28 21 - 32 mmol/L LAB CHEMISTRY METHOD 07/14/2024 9:03 AM [facility] Anion Gap 6 3 - 11 LAB CHEMISTRY METHOD 07/14/2024 9:03 AM [facility] Glucose 105(H) 70 - 100 mg/dL LAB CHEMISTRY METHOD 07/14/2024 9:03 AM [facility] BUN 70(H) 5 - 25 mg/dL LAB CHEMISTRY METHOD 07/14/2024 9:03 AM [facility] Creatinine 3.26(H) 0.50 - 1.10 mg/dL LAB CHEMISTRY METHOD 07/14/2024 9:03 AM [facility] eGFR 14(L) >=60 mL/min/1. 73m2 LAB CHEMISTRY METHOD 07/14/2024 9:03 AM [facility] Comment:Calculation based on the Chronic Kidney Disease Epidemiology Collaboration (CKD-EPI) equation refit without adjustment for race. BUN/Creatinine Ratio 21.5 LAB CHEMISTRY METHOD 07/14/2024 9:03 AM [facility] Calcium 8.6 8.5 - 10.5 mg/dL LAB CHEMISTRY METHOD 07/14/2024 9:03 AM [facility] Blood Venous blood specimen / Unknown Venipuncture / Unknown 07/14/2024 6:08 AM EST 07/14/2024 8:03 AM EST us Hortencia Mcclellan MD LAB BLOOD ORDERABLES Fin al Result [facility] [address] [place] [address], * (ABNORMAL) Complete blood count (07/14/2024 6:08 AM EST) [facility] WBC 5.3 4.8 - 10.8 K/mcL LAB HEMETOLOGY METHOD 07/14/2024 8:32 AM [facility] RBC 3.00(L) 3.80 - 4.80 M/mcL LAB HEMETOLOGY METHOD 07/14/2024 8:32 AM [facility] Hemoglobin 8.3(L) 11.5 - 16.0 g/dL LAB HEMETOLOGY METHOD 07/14/2024 8:32 AM [facility] Hematocrit 29.9(L) 35.0 - 47.0 % LAB HEMETOLOGY METHOD 07/14/2024 8:32 AM [facility] MCV 101.4(H) 79.0 - 98.0 FL LAB HEMETOLOGY METHOD 07/14/2024 8:32 AM [facility] MCH 28.1 27.0 - 32.0 pcg LAB HEMETOLOGY METHOD 07/14/2024 8:32 AM [facility] MCHC 27.8(L) 32.0 - 37.0 g/dL LAB HEMETOLOGY METHOD 07/14/2024 8:32 AM [facility] RDW 20.0(H) 11.0 - 15.0 % LAB HEMETOLOGY METHOD 07/14/2024 8:32 AM [facility] Platelets 198 130 - 400 K/mcL LAB HEMETOLOGY METHOD 07/14/2024 8:32 AM [facility] MPV 10.3 7.0 - 11.0 FL LAB HEMETOLOGY METHOD 07/14/2024 8:32 AM [facility] NRBC 0.0 [...] al Result [facility] [address] [place] [address], documented in this encounter Visit Diagnoses Diagnosis Type 2 diabetes mellitus without complications (CMS/HCC V24, CMS/HCC V28) Heart failure, unspecified (CMS/HCC V24, CMS/HCC V28) Heart failure, unspecified documented in this encounter Care Teams Cable Tender Relationship Specialty Start Date End Date Amina Burciaga MD [address] [place] [address] PCP - General Hospitalist Medicine 09/11/24 documented as of this encounter
--- OUTSIDE RECORDS SUMMARY | 2025-06-03 05:52 | XMS_ITS | Encounter Summary ---
Author Organization [facility], Address [address] [place] [address] Phone Care Team Providers Care Catheter Builder Name Role Phone Dandre Chavez MD Primary Care Provider [phone] Encounter Details Date Type Department Care Team (Late st Contact Info) Description 01/08/2025 Documentation Only [facility], [address] [place] [address] Radha Chatterjee [place] [address] [place] [phone] Social History Tobacco Use Types Packs/Day Years [...] on filedocumented in this encounter Care Teams Catheter Builder Relationship Specialty Start Date End Date Dandre Chavez MD [address] [place] [address], [address] [place], [place] PCP - General 07/07/19 documented as of this encounter
--- OUTSIDE RECORDS SUMMARY | 2025-06-03 05:52 | XMS_ITS | Encounter Summary ---
Author Organization [facility], Address [address] [place] [address] Phone Care Team Providers Care Oil Winterizer Name Role Phone Dandre Chavez MD Primary Care Provider [phone] Encounter Details Date Type Department Care Team (Late st Contact Info) Description 10/30/2022 Documentation Only [facility], [address] [place] [address] Melissa Delgadillo [address] [place] [phone] Social History Tobacco Use Types Packs/Day Years [...] on filedocumented in this encounter Care Teams Oil Winterizer Relationship Specialty Start Date End Date Dandre Chavez MD [address] [place] [address], [address] [place], [place] PCP - General 07/07/19 documented as of this encounter
--- OUTSIDE RECORDS SUMMARY | 2025-06-03 05:52 | XMS_ITS | Encounter Summary ---
Author Organization [facility], Address [address] [place] [address] Phone Care Team Providers Care Customs Verifier Name Role Phone Dandre Chavez MD Primary Care Provider [phone] Encounter Details Date Type Department Care Team (Late st Contact Info) Description 08/02/2022 Documentation Only [facility], [address] [place] [address] Faina Villegas PA Social History Tobacco Use [...] on filedocumented in this encounter Care Teams Customs Verifier Relationship Specialty Start Date End Date Dandre Chavez MD [address] [place] [address], [address] [place], [place] PCP - General 07/07/19 documented as of this encounter
--- OUTSIDE RECORDS SUMMARY | 2025-06-03 05:52 | XMS_ITS | Encounter Summary ---
Author Organization [facility] Address [address] [place], [place] [address] [place] [address] Phone Care Team Providers Care Wood Repatcher Name Role Phone Dandre Chavez MD Primary Care Provider [phone] Miguel Enciso MD Unavailable [phone] Encounter Details Date Type Department Care Team (Late st Contact Info) Description 07/01/2024 Procedure Pass [facility] Cardiology Referral Images [address] [facility] [address] [place] [address] Social History Tobacco Use Types Packs/Day Years [...] on filedocumented in this encounter Care Teams Wood Repatcher Relationship Specialty Start Date End Date Dandre Chavez MD [address] [place] [address] PCP - General 09/05/17 Miguel Enciso MD [address] [place] [address] [email or web address] Cardiology 05/28/24 documented as of this encounter Additional Source Comments The information contained in this document represents components of the legal health record. It is not the complete legal health record.[facility]
--- OUTSIDE RECORDS SUMMARY | 2025-06-03 05:52 | XMS_ITS | Encounter Summary ---
Author Organization [facility] Address [address] [place] [address] Phone Care Team Providers Care Looping Inspector Name Role Phone Dandre Chavez MD Primary Care Provider [phone] Miguel Enciso MD Unavailable [phone] Encounter Details Date Type Department Care Team (Late st Contact Info) Description 12/20/2022 Procedure Pass Non-Invasive Cardiology [address] [place], [place] [phone] Social History Tobacco Use Types Packs/Day Years [...] on filedocumented in this encounter Care Teams Looping Inspector Relationship Specialty Start Date End Date Dandre Chavez MD [address] [place] [phone] PCP - General 09/05/17 Miguel Enciso MD [address] [place] [address], [address] [place], [place] [phone] Cardiology 05/28/24 documented as of this encounter Additional Source Comments The information contained in this document represents components of the legal health record. It is not the complete legal health record.[facility]
--- OUTSIDE RECORDS SUMMARY | 2025-06-03 05:52 | XMS_ITS | Encounter Summary ---
Author Organization [facility], Address [address] [place] [address] Phone Care Team Providers Care Security Assessor Name Role Phone Dandre Chavez MD Primary Care Provider [phone] Encounter Details Date Type Department Care Team (Late st Contact Info) Description 01/14/2023 Documentation Only [facility], [address] [place] [address] Melissa Delgadillo [address] [place] [phone] Social History Tobacco Use Types Packs/Day Years [...] on filedocumented in this encounter Care Teams Security Assessor Relationship Specialty Start Date End Date Dandre Chavez MD [address] [place] [address], [address] [place], [place] PCP - General 07/07/19 documented as of this encounter
--- OUTSIDE RECORDS SUMMARY | 2025-06-03 05:52 | XMS_ITS | Encounter Summary ---
Author Organization [facility], Address [address] [place] [address] Phone Care Team Providers Care Service Trainer Name Role Phone Dandre Chavez MD Primary Care Provider [phone] Encounter Details Date Type Department Care Team (Late st Contact Info) Description 10/12/2021 Documentation Only [facility], [address] [place] [address] Faina Villegas PA Social History Tobacco Use [...] on filedocumented in this encounter Care Teams Service Trainer Relationship Specialty Start Date End Date Dandre Chavez MD [address] [place] [address], [address] [place], [place] PCP - General 07/07/19 documented as of this encounter
--- OUTSIDE RECORDS SUMMARY | 2025-06-03 05:52 | XMS_ITS | Clinical Summary ---
Author Organization [facility] Address [address] [place] [address] Care Team Providers Care Inspector Hairspring Truing Name Role Phone Dandre Chavez MD Primary Care Provider [phone] Allergies Active Allergy Reactions Criticality Noted Date [...] age to complete this topic Care Teams Inspector Hairspring Truing Relationship Specialty Start Date End Date Dandre Chavez MD [address] [place] [address] [place] [id number] PCP - General Internal Medicine 11/06/22
--- OUTSIDE RECORDS SUMMARY | 2025-06-03 05:52 | XMS_ITS | Encounter Summary ---
Author Organization [facility] Address [address] [place] [address] Care Team Providers Care Lamp Developer Name Role Phone Amina Burciaga MD Primary Care Provider [phone] Encounter Details Date Type Department Care Team (Latest Contact Info) Description 09/11/2024 Lab Requisition [facility] - Main Lab [address] [facility] [place] [address] Amina Burciaga MD [address] [place] [address] Other prison (current) drug therapy; Type 2 diabetes mellitus [...] COUNT Routine 09/11/2024 9:47 AM EST Other prison (current) drug therapy Type 2 diabetes mellitus without complications (CMS/HCC) Heart failure, unspecified (CMS/HCC) MAGNESIUM Routine 09/11/2024 9:47 AM EST Other prison (current) drug therapy Type 2 diabetes mellitus without complications (CMS/HCC) Heart failure, unspecified (CMS/HCC) BASIC METABOLIC PANEL Routine 09/11/2024 9:47 AM EST Other stave planer tender (current) drug therapy Type 2 diabetes mellitus without complications (CMS/HCC) Heart failure, unspecified (CMS/HCC) documented in this encounter Results * Magnesium (09/11/2024 9:47 AM EST) [facility] Magnesium 2.1 1.9 - 2.6 mg/dL LAB CHEMISTRY METHOD 09/11/2024 12:45 PM [facility] Blood Venous blood specimen / Unknown Venipuncture / Unknown 09/11/2024 9:47 AM EST 09/11/2024 11:29 AM EST Amina Burciaga MD LAB BLOOD ORDERABLES Final Resul t [facility] [address] [place] [address], * (ABNORMAL) Basic metabolic panel (09/11/2024 9:47 AM EST) [facility] Sodium 137 133 - 145 mmol/L LAB CHEMISTRY METHOD 09/11/2024 12:54 PM [facility] Potassium 3.9 3.5 - 5.5 mmol/L LAB CHEMISTRY METHOD 09/11/2024 12:54 PM [facility] Chloride 103 96 - 110 mmol/L LAB CHEMISTRY METHOD 09/11/2024 12:54 PM [facility] CO2 26 21 - 32 mmol/L LAB CHEMISTRY METHOD 09/11/2024 12:54 PM [facility] Anion Gap 8 3 - 11 LAB CHEMISTRY METHOD 09/11/2024 12:54 PM [facility] Glucose 112(H) 70 - 100 mg/dL LAB CHEMISTRY METHOD 09/11/2024 12:54 PM [facility] BUN 50(H) 5 - 25 mg/dL LAB CHEMISTRY METHOD 09/11/2024 12:54 PM [facility] Creatinine 2.73(H) 0.50 - 1.10 mg/dL LAB CHEMISTRY METHOD 09/11/2024 12:54 PM [facility] eGFR 17(L) >=60 mL/min/1. 73m2 LAB CHEMISTRY METHOD 09/11/2024 12:54 PM [facility] Comment:Calculation based on the Chronic Kidney Disease Epidemiology Collaboration (CKD-EPI) equation refit without adjustment for race. BUN/Creatinine Ratio 18.3 LAB CHEMISTRY METHOD 09/11/2024 12:54 PM [facility] Calcium 8.6 8.5 - 10.5 mg/dL LAB CHEMISTRY METHOD 09/11/2024 12:54 PM [facility] Blood Venous blood specimen / Unknown Venipuncture / Unknown 09/11/2024 9:47 AM EST 09/11/2024 11:29 AM EST Amina Burciaga MD LAB BLOOD ORDERABLES Final Resul t [facility] [address] [place] [address], * (ABNORMAL) Complete blood count (09/11/2024 9:47 AM EST) WBC 6.9 4.8 - 10.8 K/mcL LAB HEMETOLOGY METHOD 09/11/2024 11:47 AM [facility] RBC 3.10(L) 3.80 - 4.80 M/mcL LAB HEMETOLOGY METHOD 09/11/2024 11:47 AM [facility] Hemoglobin 9.0(L) 11.5 - 16.0 g/dL LAB HEMETOLOGY METHOD 09/11/2024 11:47 AM [facility] Hematocrit 31.6(L) 35.0 - 47.0 % LAB HEMETOLOGY METHOD 09/11/2024 11:47 AM [facility] MCV 102.6(H) 79.0 - 98.0 FL LAB HEMETOLOGY METHOD 09/11/2024 11:47 AM EST [facility] MCH 29.2 27.0 - 32.0 pcg LAB HEMETOLOGY METHOD 09/11/2024 11:47 AM [facility] MCHC 28.5(L) 32.0 - 37.0 g/dL LAB HEMETOLOGY METHOD 09/11/2024 11:47 AM EST [facility] RDW 20.6(H) 11.0 - 15.0 % LAB HEMETOLOGY METHOD 09/11/2024 11:47 AM EST [facility] Platelets 180 130 - 400 K/mcL LAB HEMETOLOGY METHOD 09/11/2024 11:47 AM [facility] MPV 9.9 7.0 - 11.0 FL LAB HEMETOLOGY METHOD 09/11/2024 11:47 AM EST [facility] NRBC 0.0 <1.0 % LAB HEMETOLOGY METHOD 09/11/2024 11:47 AM [facility] NRBC Absolute 0.00 <0.10 K/mcL LAB HEMETOLOGY METHOD 09/11/2024 11:47 AM [facility] Blood Venous blood specimen / Unknown Venipuncture / Unknown 09/11/2024 9:47 AM EST 09/11/2024 11:29 AM EST us Amina Burciaga MD LAB BLOOD ORDERABLES Final Resul t [facility] [address] [place] [address], documented in this encounter Visit Diagnoses Diagnosis Other prison (current) drug therapy Type 2 diabetes mellitus without complications (CMS/HCC V24, CMS/HCC V28) Heart failure, unspecified (CMS/HCC V24, CMS/HCC V28) Heart failure, unspecified documented in this encounter Care Teams Lamp Developer Relationship Specialty Start Date End Date Amina Burciaga MD [address] [place] [address] PCP - General Hospitalist Medicine 09/11/24 documented as of this encounter
--- OUTSIDE RECORDS SUMMARY | 2025-06-03 05:52 | XMS_ITS | Encounter Summary ---
Author Organization [facility] Address [address] [place] [address] Phone Care Team Providers Care Director Of Property Management Name Role Phone Dandre Chavez MD Primary Care Provider [phone] Miguel Enciso MD Unavailable [phone] Encounter Details Date Type Department Care Team (Late st Contact Info) Description 12/21/2022 Procedure Pass Echo Lab [address] [id number] Social History Tobacco Use Types Packs/Day Years [...] in this encounter Care Teams Director Of Property Management Relationship Specialty Start Date End Date Dandre Chavez MD [address] [place] [address] [phone] PCP - General 09/05/17 Miguel Enciso MD [address] [facility], [address] [place], [place] [phone] Cardiology 05/28/24 documented as of this encounter Additional Source Comments The information contained in this document represents components of the legal health record. It is not the complete legal health record.[facility]
--- OUTSIDE RECORDS SUMMARY | 2025-06-03 05:52 | XMS_ITS | Encounter Summary ---
Author Organization [facility] Address [address] [place] [address] Care Team Providers Care Environmental Services Worker Name Role Phone Amina Burciaga MD Primary Care Provider [phone] Encounter Details Date Type Department Care Team (Late st Contact Info) Description 07/10/2024 Lab Requisition [facility] - Main Lab [address] [facility] [place] [address] Lloyd Jernigan MD [address] [place] [address] Unspecified dementia, unspecified severity, without behavioral disturbance, [...] mmol/L LAB CHEMISTRY METHOD 07/10/2024 9:59 AM [facility] Potassium 4.4 3.5 - 5.5 mmol/L LAB CHEMISTRY METHOD 07/10/2024 9:59 AM [facility] Chloride 103 96 - 110 mmol/L LAB CHEMISTRY METHOD 07/10/2024 9:59 AM [facility] CO2 31 21 - 32 mmol/L LAB CHEMISTRY METHOD 07/10/2024 9:59 AM [facility] Anion Gap 5 3 - 11 LAB CHEMISTRY METHOD 07/10/2024 9:59 AM [facility] Glucose 115(H) 70 - 100 mg/dL LAB CHEMISTRY METHOD 07/10/2024 9:59 AM [facility] BUN 62(H) 5 - 25 mg/dL LAB CHEMISTRY METHOD 07/10/2024 9:59 AM [facility] Creatinine 2.86(H) 0.50 - 1.10 mg/dL LAB CHEMISTRY METHOD 07/10/2024 9:59 AM [facility] eGFR 16(L) >=60 mL/min/1. 73m2 LAB CHEMISTRY METHOD 07/10/2024 9:59 AM [facility] Comment:Calculation based on the Chronic Kidney Disease Epidemiology Collaboration (CKD-EPI) equation refit without adjustment for race. BUN/Creatinine Ratio 21.7 LAB CHEMISTRY METHOD 07/10/2024 9:59 AM [facility] Calcium 9.3 8.5 - 10.5 mg/dL LAB CHEMISTRY METHOD 07/10/2024 9:59 AM [facility] Blood Venous blood specimen / Unknown Venipuncture / Unknown 07/10/2024 6:29 AM EST 07/10/2024 9:00 AM EST us Lloyd Jernigan MD LAB BLOOD ORDERABLES Final R esult [facility] [address] [place] [address], * (ABNORMAL) Complete blood count (07/10/2024 6:29 AM EST) WBC 5.3 4.8 - 10.8 K/mcL LAB HEMETOLOGY METHOD 07/10/2024 9:47 AM [facility] RBC 3.20(L) 3.80 - 4.80 M/mcL LAB HEMETOLOGY METHOD 07/10/2024 9:47 AM [facility] Hemoglobin 8.9(L) 11.5 - 16.0 g/dL LAB HEMETOLOGY METHOD 07/10/2024 9:47 AM [facility] Hematocrit 32.0(L) 35.0 - 47.0 % LAB HEMETOLOGY METHOD 07/10/2024 9:47 AM [facility] MCV 101.6(H) 79.0 - 98.0 FL LAB HEMETOLOGY METHOD 07/10/2024 9:47 AM [facility] MCH 28.3 27.0 - 32.0 pcg LAB HEMETOLOGY METHOD 07/10/2024 9:47 AM [facility] MCHC 27.8(L) 32.0 - 37.0 g/dL LAB HEMETOLOGY METHOD 07/10/2024 9:47 AM [facility] RDW 20.3(H) 11.0 - 15.0 % LAB HEMETOLOGY METHOD 07/10/2024 9:47 AM [facility] Platelets 239 130 - 400 K/mcL LAB HEMETOLOGY METHOD 07/10/2024 9:47 AM [facility] MPV 10.2 7.0 - 11.0 FL LAB HEMETOLOGY METHOD 07/10/2024 9:47 AM EST [facility] NRBC 0.0 <1.0 % LAB HEMETOLOGY METHOD 07/10/2024 9:47 AM EST [facility] NRBC Absolute 0.00 <0.10 K/mcL LAB HEMETOLOGY METHOD 07/10/2024 9:47 AM EST [facility] Blood Venous blood specimen / Unknown Venipuncture / Unknown 07/10/2024 6:29 AM EST 07/10/2024 9:00 AM EST Lloyd Jernigan MD LAB BLOOD ORDERABLES Final R esult Performing Organization Address City/[facility]/ZIP Co de Phone Number [facility] [address] [place] [address], [place] [phone] * Hemoglobin A1c (07/10/2024 6:29 AM EST) Hemoglobin A1C 5.7 <6.5 % LAB CHEMISTRY METHOD 07/10/2024 1:42 PM EST [facility] Mean Bld Glu Estim. 117 mg/dL LAB CHEMISTRY METHOD 07/10/2024 1:42 PM EST [facility] Blood Venous blood specimen / Unknown Venipuncture / Unknown 07/10/2024 6:29 AM EST 07/10/2024 9:00 AM EST Lloyd Jernigan MD LAB BLOOD ORDERABLES Final R esult [facility] [address] [place] [address], [place] [phone] documented in this encounter Visit Diagnoses Diagnosis Unspecified dementia, unspecified severity, without behavioral disturbance, psychotic disturbance, mood disturbance, and anxiety (CMS/HCC V24, CMS/HCC V28) documented in this encounter Care Teams Environmental Services Worker Relationship Specialty Start Date End Date Amina Burciaga MD [address] [place] [address] PCP - General Hospitalist Medicine 09/11/24 documented as of this encounter
--- OUTSIDE RECORDS SUMMARY | 2025-06-03 05:52 | XMS_ITS | Encounter Summary ---
Author Organization [facility] Address [address] [place] [address] Care Team Providers Care Tower Hoist Operator Name Role Phone Amina Burciaga MD Primary Care Provider [phone] Encounter Details Date Type Department Care Team (Late st Contact Info) Description 07/27/[address] [facility] - Main Lab 299 [facility] [place] [address] Hortencia Mcclellan MD [address] [id number] Type 2 diabetes mellitus without complications (CMS/HCC [...] LAB BLOOD ORDERABLES Fin al Result [facility] [address] [place] [address], * (ABNORMAL) Complete blood count (07/28/2024 5:41 AM EST) [facility] [address] WBC 4.1(L) 4.8 - 10.8 K/mcL LAB [...] LAB HEMETOLOGY METHOD 07/28/2024 8:20 AM EST [facility] NRBC Absolute 0.00 <0.10 K/mcL LAB HEMETOLOGY METHOD 07/28/2024 8:20 AM EST [facility] Blood Venous blood specimen / Unknown Venipuncture / Unknown 07/28/2024 5:41 AM EST 07/28/2024 8:02 AM EST us Hortencia Mcclellan MD LAB BLOOD ORDERABLES Fin al Result [facility] [address] [place] [address], documented in this encounter Visit Diagnoses Diagnosis Type 2 diabetes mellitus without complications (CMS/HCC V24, CMS/HCC V28) Heart failure, unspecified (CMS/HCC V24, CMS/HCC V28) Heart failure, unspecified documented in this encounter Care Teams Tower Hoist Operator Relationship Specialty Start Date End Date Amina Burciaga MD [address] [place] [address] PCP - General Hospitalist Medicine 09/11/24 documented as of this encounter
--- OUTSIDE RECORDS SUMMARY | 2025-06-03 05:52 | XMS_ITS | Encounter Summary ---
Author Organization [facility], Address [address] [place] [address] Phone Care Team Providers Care Probation Worker Name Role Phone Dandre Chavez MD Primary Care Provider [phone] Encounter Details Date Type Department Care Team (Late st Contact Info) Description 09/07/2022 Documentation Only [facility], [address] [place] [address] Faina Villegas PA Social History Tobacco Use [...] on filedocumented in this encounter Care Teams Probation Worker Relationship Specialty Start Date End Date Dandre Chavez MD [address] [place] [address], [address] [place], [place] PCP - General 07/07/19 documented as of this encounter
--- OUTSIDE RECORDS SUMMARY | 2025-06-03 05:52 | XMS_ITS | Encounter Summary ---
Author Organization [facility], Address [address] [place] [address] Phone Care Team Providers Care Medicare Sales Executive Name Role Phone Dandre Chavez MD Primary Care Provider [phone] Encounter Details Date Type Department Care Team (Late st Contact Info) Description 12/31/2022 Documentation Only [facility], [address] [place] [address] Melissa Delgadillo [address] [place] [phone] Social History Tobacco Use Types Packs/Day Years [...] on filedocumented in this encounter Care Teams Medicare Sales Executive Relationship Specialty Start Date End Date Dandre Chavez MD [address] [place] [address], [address] [place], [place] PCP - General 07/07/19 documented as of this encounter
--- OUTSIDE RECORDS SUMMARY | 2025-06-03 05:52 | XMS_ITS | Encounter Summary ---
Author Organization [facility], Address [address] [place] [address] Phone Care Team Providers Care Leather Belt Shaper Name Role Phone Dandre Chavez MD Primary Care Provider [phone] Encounter Details Date Type Department Care Team (Late st Contact Info) Description 02/09/2022 Documentation Only [facility], [address] [place] [address] Faina Villegas PA Social History Tobacco Use [...] on filedocumented in this encounter Care Teams Leather Belt Shaper Relationship Specialty Start Date End Date Dandre Chavez MD [address] [place] [address], [address] [place], [place] PCP - General 07/07/19 documented as of this encounter
--- OUTSIDE RECORDS SUMMARY | 2025-06-03 05:52 | XMS_ITS | Encounter Summary ---
Author Organization [facility], Address [address] [place] [address] Phone Care Team Providers Care Garment Alteration Examiner Name Role Phone Dandre Chavez MD Primary Care Provider [phone] Encounter Details Date Type Department Care Team (Late st Contact Info) Description 08/06/2023 Documentation Only [facility], [address] [place] [address] Desi Rodriguez Social History Tobacco Use Types [...] on filedocumented in this encounter Care Teams Garment Alteration Examiner Relationship Specialty Start Date End Date Dandre Chavez MD [address] [place] [address], [address] [place], [place] PCP - General 07/07/19 documented as of this encounter
--- OUTSIDE RECORDS SUMMARY | 2025-06-03 05:52 | XMS_ITS | Encounter Summary ---
Author Organization [facility] Address [address] [place] [address] Phone Care Team Providers Care Data Center Project Manager Name Role Phone Dandre Chavez MD Primary Care Provider [phone] Miguel Enciso MD Unavailable [phone] Encounter Details Date Type Department Care Team (Late st Contact Info) Description 04/03/2022 Procedure Pass [facility] [address] [place] [address] Social History Tobacco Use Types Packs/Day Years [...] on filedocumented in this encounter Care Teams Data Center Project Manager Relationship Specialty Start Date End Date Dandre Chavez MD [address] [id number] PCP - General 09/05/17 Miguel Enciso MD [address] [place] [address], [address] [place], [place] [phone] Cardiology 05/28/24 documented as of this encounter Additional Source Comments The information contained in this document represents components of the legal health record. It is not the complete legal health record.[facility]
--- OUTSIDE RECORDS SUMMARY | 2025-06-03 05:52 | XMS_ITS | Clinical Summary ---
Author Organization [facility] Address [address] [place] [address] Phone Care Team Providers Care Student Counselor Name Role Phone Dandre Chavez MD Primary Care Provider [phone] Miguel Enciso MD Unavailable [phone] Allergies Active Allergy Reactions Criticality Noted Date [...] Active ferrous sulfate 325 mg (65 mg k[place] iron) EC tablet Take 325 mg by [...] focus on healthy food choices. 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 She presented with a non-ST relation [place] September 2018 and had a new culprit [...] will need to have this completed at [facility]. She is aware that this is [...] December. She will have this completed at [facility] due to having her stress test [...] this topic Medical Devices Implanted Type Area Ophthalmic Aide Device Identifier Shelf Expiration Date Model / Serial / Lot Sensor Pulmonary Artery Delivery System Cardiomems - [id number] Implanted:Qt y: 1 on 04/03/2022 by Miguel Enciso MD at [facility] Implantable Monitor Left: Arterial [employer] [id number] 12/15/2023 CM PATIENT SYSTEM / [id number] / Description:Pulmonary artery Procedures Procedure Name Priority Date/Time Associated Diagnosis Comments COMPREHENSIVE METABOLIC PANEL Routine 04/18/2022 2:39 PM EDT Atherosclerosis of [place] coronary artery of [place] heart with angina pectoris Essential hypertension Ischemic cardiomyopathy PAD (peripheral artery disease) from Last 3 Months or Most Recently Relevant to Health Maintenance Results * (ABNORMAL) Comprehensive metabolic panel (04/18/2022 2:39 PM EDT) SODIUM 143 133 - 146 mmol/L [facility] POTASSIUM 4.5 3.3 - 5.1 mmol/L [facility] CHLORIDE 100 96 - 108 mmol/L [facility] CO2 34 21 - 35 mmol/L [facility] BUN 38(H) 6 - 19 mg/dL [facility] CREATININE 1.40 0.5 - 1.5 mg/dL [facility] GLUCOSE 163(H) 70 - 99 mg/dL [facility] ALBUMIN 4.0 3.9 - 4.8 g/dL [facility] TOTAL PROTEIN 7.5 6.5 - 8.0 g/dL [facility] CALCIUM 10.1 8.4 - 10.3 mg/dL [facility] ALKALINE PHOSPHATASE 94 39 - 117 U/L [facility] TOTAL BILIRUBIN 0.6 0.0 - 1.2 mg/dL [facility] AST 26 0 - 37 U/L [facility] ALT 12 0 - 40 U/L [facility] GLOBULIN 3.5 1 - 4.8 g/dL [facility] EGFR 39(L) >59 mL/min/1.7 3m2 [facility] Comment:Estimated glomerular filtration rate calculated using the CKD-EPI refit equation. ANION GAP 14 10 - 20 mmol/L [facility] Blood 04/18/2022 2:39 PM EDT 04/18/2022 2:42 PM EDT us Miguel Enciso MD LAB BLOOD ORDERABLES Final Result [facility] [address] [place] [address] from Last 3 Months or Most Recently Relevant to Health Maintenance Insurance MEDICARE PART A & B [place] MED[place]ARE PREFERRED HMO REPLACEMENT [facility] [address] MEDICARE PART A & B [place] MED[place] PREFERRED HMO REPLACEMENT [facility] [place] [address] MEDICARE PART A & B Member Subscriber Plan / Payer (Ef fective 2012-Present) Name:Amina Zamora Member ID:[id number] Relation to Subscriber:Self Name:Amina Zamora Subscriber ID:[id number] Payer ID:[id number] Group ID:Not on file Type:Medicare Address: [facility] [address] [place] [phone] [facility] MEDICARE PREFERRED HMO REPLACEMENT MEDICARE PART A & B [place] MED[place]ARE PREFERRED HMO REPLACEMENT MEDICARE PART A & B [place] MEDICARE PREFERRED HMO REPLACEMENT [facility] MEDICARE PART A & B [place] MEDICARE PREFERRED HMO REPLACEMENT MEDICARE PART A & B [place] MEDICARE PREFERRED HMO REPLACEMENT [facility] MEDICARE PART A & B [place] MEDICARE PREFERRED HMO REPLACEMENT [facility] MEDICARE PART A & B [place] MEDICARE PREFERRED HMO REPLACEMENT [facility] Care Teams Student Counselor Relationship Specialty Start Date End Date Dandre Chavez MD [address] [place] [address] PCP - General 09/05/17 Miguel Enciso MD [address] [place] [id number] [email or web address] Cardiology 05/28/24 Additional Source Comments The information contained in this document represents components of the legal health record. It is not the complete legal health record.[facility]
--- OUTSIDE RECORDS SUMMARY | 2025-06-03 05:52 | XMS_ITS | Encounter Summary ---
Author Organization [facility], Address [address] [place] [address] Phone Care Team Providers Care Radioactive Waste Disposal Dispatcher Name Role Phone Dandre Chavez MD Primary Care Provider [phone] Encounter Details Date Type Department Care Team (Late st Contact Info) Description 10/10/2021 Documentation Only [facility], [address] [place] [address] Faina Villegas PA Social History Tobacco Use [...] on filedocumented in this encounter Care Teams Radioactive Waste Disposal Dispatcher Relationship Specialty Start Date End Date Dandre Chavez MD [address] [place] [address], [address] [place], [place] PCP - General 07/07/19 documented as of this encounter
--- OUTSIDE RECORDS SUMMARY | 2025-06-03 05:52 | XMS_ITS | Clinical Summary ---
Author Organization [facility], Address [address] [place] [address] Phone Care Team Providers Care Lean Manufacturing Engineer Name Role Phone Dandre Chavez MD Primary Care Provider [phone] Allergies Active Allergy Reactions Criticality Noted Date [...] Last Assessment & Plan: History of inferior MS in 2013 with a stent to her [...] PM EST) Hemoglobin A1C 6.9(H) (4.0-5.6) % [facility] Comment: MONITORING: In known diabetic patients, hemoglobin A1c targets should be discussed with health care provider. DIAGNOSTIC USE: The [place] Diabetes Association (ADA) and the World Health [...] Supplement 1 Testing performed or reported by [facility], a Service of [address] [address] Louis Fry MD, Generator Man [facility]# [id number] Blood specimen (specimen) Venous blood / Unknown 10/18/2022 2:34 PM EST 10/18/2022 2:35 PM EST us Faina LUCIANO LAB BLOOD ORDERABLES Final Res ult [facility] from Last 3 Months or Most Recently Relevant to Health Maintenance Insurance Medicare [facility] [place] [id number] Care Teams Lean Manufacturing Engineer Relationship Specialty Start Date End Date Dandre Chavez MD [address] [place] [address], [address] [place] PCP - General 07/07/19
--- OUTSIDE RECORDS SUMMARY | 2025-06-03 05:53 | XMS_ITS | Encounter Summary ---
Author Organization [facility] Address [address] [place] [address] Phone Care Team Providers Care Golf Sales Associate Name Role Phone Dandre Chavez MD Primary Care Provider [phone] Miguel Enciso MD Unavailable [phone] Encounter Details Date Type Department Care Team (Late st Contact Info) Description 09/18/2019 Ancillary Orders [facility] [address] 3rd Floor [place], [place] [id number] Miguel Enciso MD [address] [place] [address], [address] [place], [place] [id number] [email or web address] PVD (peripheral vascular disease) Social [...] disease documented in this encounter Care Teams Golf Sales Associate Relationship Specialty Start Date End Date Dandre Chavez MD [address] [place] [address] PCP - General 09/05/17 Miguel Enciso MD [address] [place] [address] [address] [place] [address] Cardiology 05/28/24 documented as of this encounter Additional Source Comments The information contained in this document represents components of the legal health record. It is not the complete legal health record.[facility]
[2025-06-03 06:51] LABS: Appearance Urine Cloudy; Glucose Urine UA Negative (Negative); PH >= 9.0 (5.0-9.0); Specific Gravity - Urine 1.010 (1.005-1.025); UMIC TRIGGER UA YES
[2025-06-03 07:03] LABS: Other Crystals Urine Present
== END 2025-06-03 05:47 | disposition home or self-care (01) ==
LOC: HO.MMNH2L 05:46
PROVIDERS: Visit Provider Physician Assistant Medical
DX: N18.9 Chronic kidney disease, unspecified (principal); D63.1 Anemia in chronic kidney disease; Z79.84 Long term (current) use of oral hypoglycemic drugs; Z99.89 Dependence on other enabling machines and devices
CPT/HCPCS: 81001; 87086

== ENCOUNTER 2025-06-04 05:30 | Outpatient (REF) | payer MEDICARE, SELFPAY ==
--- OUTSIDE RECORDS SUMMARY | 2018-12-31 05:05 | XMS_ITS | Continuity of Care Document ---
Author Organization [facility] Address [address] [address] Phone Care Team Providers Care Roofer Helper Vinyl Coating Name Role Phone Brodie Hinds DO Unavailable Unavailable Advance Directives Directive Yes / No Effective Date File Name No Information Encounters Encounter Description Practice Location Reason(s) For Visit Diagnoses Date Provider [facility], [address], [id number], [place] tel:[phone] [address] [place] [address] No Information 2018 Guzman Calloway. [address] [place] [address], [id number], [place]. tel:[phone] Family History Family Member Type Diagnosis Age [...]
--- OUTSIDE RECORDS SUMMARY | 2025-06-04 05:33 | XMS_ITS | Clinical Summary ---
Author Organization [facility], Address [address] [place] [address] Phone Care Team Providers Care Home Organizer Name Role Phone Dandre Chavez MD Primary Care Provider [phone] Allergies Active Allergy Reactions Criticality Noted Date [...] Last Assessment & Plan: History of inferior [place] in 2013 with a stent to her [...] PM EST) Hemoglobin A1C 6.9(H) (4.0-5.6) % [facility] Comment: MONITORING: In known diabetic patients, hemoglobin A1c targets should be discussed with health care provider. DIAGNOSTIC USE: The [place] Diabetes Association (ADA) and the World Health [...] Supplement 1 Testing performed or reported by [facility], a Service of [address] [address] Louis Fry MD, Commercial Sheet Metal Foreman [facility]# [id number] Blood specimen (specimen) Venous blood / Unknown 10/18/2022 2:34 PM EST 10/18/2022 2:35 PM EST us Faina LUCIANO LAB BLOOD ORDERABLES Final Res ult [facility] from Last 3 Months or Most Recently Relevant to Health Maintenance Insurance Medicare [facility] [place] [id number] Care Teams Home Organizer Relationship Specialty Start Date End Date Dandre Chavez MD [address] [place] [address], [address] [place] MD PCP - General 07/07/19
--- OUTSIDE RECORDS SUMMARY | 2025-06-04 05:34 | XMS_ITS | Encounter Summary ---
Author Organization [facility], Address [address] [place] [address] Phone Care Team Providers Care Space Controller Name Role Phone Dandre Chavez MD Primary Care Provider [phone] Encounter Details Date Type Department Care Team (Late st Contact Info) Description 01/08/2025 Documentation Only [facility], [address] [place] [address] Radha Chatterjee [place] [address] [place] [phone] Social History Tobacco Use Types Packs/Day Years [...] on filedocumented in this encounter Care Teams Space Controller Relationship Specialty Start Date End Date Dandre Chavez MD [address] [place] [address], [address] [place], [place] PCP - General 07/07/19 documented as of this encounter
--- OUTSIDE RECORDS SUMMARY | 2025-06-04 05:34 | XMS_ITS | Clinical Summary ---
Author Organization [address] Address [address] [place] [address] Phone Care Team Providers Care Locomotive Engineer Electric Name Role Phone Amina Burciaga MD Primary Care Provider Immunizations Immunization Administration Dates Next Due Pfizer [...] ORDERABLES Final Resu lt Performing Organization Address City/[facility]/ZIP Co de Phone Number [facility] [address] [place] [address], [place] [phone] * Hemoglobin A1c (09/23/2024 8:20 AM EST) Hemoglobin A1C 5.3 <6.5 % LAB CHEMISTRY METHOD 09/23/2024 2:17 PM [facility] Mean Bld Glu Estim. 105 mg/dL LAB CHEMISTRY METHOD 09/23/2024 2:17 PM [facility] Blood Venous blood specimen / Unknown Venipuncture / Unknown 09/23/2024 8:20 AM EST 09/23/2024 12:06 PM EST Amina Burciaga MD LAB BLOOD ORDERABLES Final Resul t Performing Organization Address City/[facility]/ZIP Co de Phone Number [facility] [address] [place] [address], [place] [phone] from Last 3 Months or Most Recently Relevant to Health Maintenance Insurance [place] [employer] [employer] Care Teams Locomotive Engineer Electric Relationship Specialty Start Date End Date Amina Burciaga MD [address] [place] [address] PCP - General Hospitalist Medicine 09/11/24
--- OUTSIDE RECORDS SUMMARY | 2025-06-04 05:34 | XMS_ITS | Clinical Summary ---
Author Organization [facility] Address [address] [place] [address] Care Team Providers Care Qa Tech Name Role Phone Dandre Chavez MD Primary Care Provider [phone] Allergies Active Allergy Reactions Criticality Noted Date [...] age to complete this topic Care Teams Qa Tech Relationship Specialty Start Date End Date Dandre Chavez MD [address] [place] [address] [place] [id number] PCP - General Internal Medicine 11/06/22
--- OUTSIDE RECORDS SUMMARY | 2025-06-04 05:34 | XMS_ITS | Encounter Summary ---
Author Organization [facility] Address [address] [place] [address] Phone Care Team Providers Care President + Publisher Name Role Phone Dandre Chavez MD Primary Care Provider [phone] Miguel Enciso MD Unavailable [phone] Encounter Details Date Type Department Care Team (Latest Contact Info) Description 12/16/2018 Ancillary Orders Non-Invasive Cardiology [address] [place] [address] Cathy Browning NP [address] [place] [address] Atherosclerosis of [place] coronary artery of [place] heart with angina pectoris Social History Tobacco [...] AM EDT) Max BP Systolic 150 mmHg [facility] Max BP Diastolic 80 mmHg [facility] Max HR 89 BPM [facility] Resting HR 78 BPM [facility] Resting BP Systolic 150 mmHg [facility] Resting BP Diastolic 80 mmHg [facility] Peak METS 1.0 METS [facility] Peak HR 83 BPM [facility] Anatomical Region Laterality Modality Heart Other [...] this encounter Visit Diagnoses Diagnosis 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 It is not the complete legal health record.[facility]
--- OUTSIDE RECORDS SUMMARY | 2025-06-04 05:35 | XMS_ITS | Encounter Summary ---
Author Organization [facility], Address [address] [place] [address] Phone Care Team Providers Care Cooler Service Supervisor Name Role Phone Dandre Chavez MD Primary Care Provider [phone] Encounter Details Date Type Department Care Team (Late st Contact Info) Description 08/06/2023 Documentation Only [facility], [address] [place] [address] Desi Rodriguez Social History Tobacco Use Types [...] on filedocumented in this encounter Care Teams Cooler Service Supervisor Relationship Specialty Start Date End Date Dandre Chavez MD [address] [place] [address], [address] [place], [place] PCP - General 07/07/19 documented as of this encounter
--- OUTSIDE RECORDS SUMMARY | 2025-06-04 05:36 | XMS_ITS | Encounter Summary ---
Author Organization [facility], Address [address] [place] [address] Phone Care Team Providers Care Shell Grader Name Role Phone Dandre Chavez MD Primary Care Provider [phone] Encounter Details Date Type Department Care Team (Late st Contact Info) Description 11/29/2023 Documentation Only [facility], [address] [place] [address] Radha Chatterjee [place] [address] [place] [phone] Social History Tobacco Use Types Packs/Day Years [...] on filedocumented in this encounter Care Teams Shell Grader Relationship Specialty Start Date End Date Dandre Chavez MD [address] [place] [address], [address] [place], [place] PCP - General 07/07/19 documented as of this encounter
--- OUTSIDE RECORDS SUMMARY | 2025-06-04 05:38 | XMS_ITS | Encounter Summary ---
Author Organization [facility], Address [address] [place] [address] Phone Care Team Providers Care Reel Stripper Name Role Phone Dandre Chavez MD Primary Care Provider [phone] Encounter Details Date Type Department Care Team (Late st Contact Info) Description 01/14/2023 Documentation Only [facility], [address] [place] [address] Melissa Delgadillo [address] [place] [phone] Social History Tobacco Use Types Packs/Day Years [...] on filedocumented in this encounter Care Teams Reel Stripper Relationship Specialty Start Date End Date Dandre Chavez MD [address] [place] [address], [address] [place], [place] PCP - General 07/07/19 documented as of this encounter
--- OUTSIDE RECORDS SUMMARY | 2025-06-04 05:38 | XMS_ITS | Encounter Summary ---
Author Organization [facility] Address [address] [place] [address] Care Team Providers Care Tipple Repairer Name Role Phone Amina Burciaga MD Primary Care Provider [phone] Encounter Details Date Type Department Care Team (Latest Contact Info) Description 09/11/2024 Lab Requisition [facility] - Main Lab [address] [facility] [place] [address] mAina Burciaga MD [address] [place] [address] Other chcf (current) drug therapy; Type 2 diabetes mellitus [...] COUNT Routine 09/11/2024 9:47 AM EST Other chcf (current) drug therapy Type 2 diabetes mellitus without complications (CMS/HCC) Heart failure, unspecified (CMS/HCC) MAGNESIUM Routine 09/11/2024 9:47 AM EST Other chcf (current) drug therapy Type 2 diabetes mellitus without complications (CMS/HCC) Heart failure, unspecified (CMS/HCC) BASIC METABOLIC PANEL Routine 09/11/2024 9:47 AM EST Other long term care administrator (current) drug therapy Type 2 diabetes mellitus without complications (CMS/HCC) Heart failure, unspecified (CMS/HCC) documented in this encounter Results * Magnesium (09/11/2024 9:47 AM EST) [facility] Magnesium 2.1 1.9 - 2.6 mg/dL LAB CHEMISTRY METHOD 09/11/2024 12:45 PM [facility] Blood Venous blood specimen / Unknown Venipuncture / Unknown 09/11/2024 9:47 AM EST 09/11/2024 11:29 AM EST Amina Burciaga MD LAB BLOOD ORDERABLES Final Resul t [facility] [address] [place] [address], * (ABNORMAL) Basic metabolic panel (09/11/2024 9:47 AM EST) [facility] Sodium 137 133 - 145 mmol/L LAB CHEMISTRY METHOD 09/11/2024 12:54 PM [facility] Potassium 3.9 3.5 - 5.5 mmol/L LAB CHEMISTRY METHOD 09/11/2024 12:54 PM [facility] Chloride 103 96 - 110 mmol/L LAB CHEMISTRY METHOD 09/11/2024 12:54 PM [facility] CO2 26 21 - 32 mmol/L LAB CHEMISTRY METHOD 09/11/2024 12:54 PM [facility] Anion Gap 8 3 - 11 LAB CHEMISTRY METHOD 09/11/2024 12:54 PM [facility] Glucose 112(H) 70 - 100 mg/dL LAB CHEMISTRY METHOD 09/11/2024 12:54 PM [facility] BUN 50(H) 5 - 25 mg/dL LAB CHEMISTRY METHOD 09/11/2024 12:54 PM [facility] Creatinine 2.73(H) 0.50 - 1.10 mg/dL LAB CHEMISTRY METHOD 09/11/2024 12:54 PM [facility] eGFR 17(L) >=60 mL/min/1. 73m2 LAB CHEMISTRY METHOD 09/11/2024 12:54 PM [facility] Comment:Calculation based on the Chronic Kidney Disease Epidemiology Collaboration (CKD-EPI) equation refit without adjustment for race. BUN/Creatinine Ratio 18.3 LAB CHEMISTRY METHOD 09/11/2024 12:54 PM [facility] Calcium 8.6 8.5 - 10.5 mg/dL LAB CHEMISTRY METHOD 09/11/2024 12:54 PM [facility] Blood Venous blood specimen / Unknown Venipuncture / Unknown 09/11/2024 9:47 AM EST 09/11/2024 11:29 AM EST Amina Burciaga MD LAB BLOOD ORDERABLES Final Resul t [facility] [address] [place] [address], * (ABNORMAL) Complete blood count (09/11/2024 9:47 AM EST) WBC 6.9 4.8 - 10.8 K/mcL LAB HEMETOLOGY METHOD 09/11/2024 11:47 AM [facility] RBC 3.10(L) 3.80 - 4.80 M/mcL LAB HEMETOLOGY METHOD 09/11/2024 11:47 AM [facility] Hemoglobin 9.0(L) 11.5 - 16.0 g/dL LAB HEMETOLOGY METHOD 09/11/2024 11:47 AM [facility] Hematocrit 31.6(L) 35.0 - 47.0 % LAB HEMETOLOGY METHOD 09/11/2024 11:47 AM [facility] MCV 102.6(H) 79.0 - 98.0 FL LAB HEMETOLOGY METHOD 09/11/2024 11:47 AM EST [facility] MCH 29.2 27.0 - 32.0 pcg LAB HEMETOLOGY METHOD 09/11/2024 11:47 AM [facility] MCHC 28.5(L) 32.0 - 37.0 g/dL LAB HEMETOLOGY METHOD 09/11/2024 11:47 AM EST [facility] RDW 20.6(H) 11.0 - 15.0 % LAB HEMETOLOGY METHOD 09/11/2024 11:47 AM EST [facility] Platelets 180 130 - 400 K/mcL LAB HEMETOLOGY METHOD 09/11/2024 11:47 AM [facility] MPV 9.9 7.0 - 11.0 FL LAB HEMETOLOGY METHOD 09/11/2024 11:47 AM EST [facility] NRBC 0.0 <1.0 % LAB HEMETOLOGY METHOD 09/11/2024 11:47 AM [facility] NRBC Absolute 0.00 <0.10 K/mcL LAB HEMETOLOGY METHOD 09/11/2024 11:47 AM [facility] Blood Venous blood specimen / Unknown Venipuncture / Unknown 09/11/2024 9:47 AM EST 09/11/2024 11:29 AM EST us Amina Burciaga MD LAB BLOOD ORDERABLES Final Resul t [facility] [address] [place] [address], documented in this encounter Visit Diagnoses Diagnosis Other chcf (current) drug therapy Type 2 diabetes mellitus without complications (CMS/HCC V24, CMS/HCC V28) Heart failure, unspecified (CMS/HCC V24, CMS/HCC V28) Heart failure, unspecified documented in this encounter Care Teams Tipple Repairer Relationship Specialty Start Date End Date Amina Burciaga MD [address] [place] [address] PCP - General Hospitalist Medicine 09/11/24 documented as of this encounter
--- OUTSIDE RECORDS SUMMARY | 2025-06-04 05:38 | XMS_ITS | Encounter Summary ---
Author Organization [facility] Address [address] [place] [address] Care Team Providers Care Conversion Worker Name Role Phone Amina Burciaga MD Primary Care Provider [phone] Encounter Details Date Type Department Care Team (Latest Contact Info) Description 09/23/[address] [facility] - Main Lab [address] [facility] [place] [address] Amina Burciaga MD [address] [place] [address] Type 2 diabetes mellitus with [...] t [facility] [address] [place] [address], * (ABNORMAL) Comprehensive metabolic panel (09/23/2024 8:20 AM EST) Pathologist [facility] Sodium 140 133 - 145 mmol/L LAB CHEMISTRY METHOD 09/23/2024 4:37 PM [facility] Potassium 3.9 3.5 - 5.5 mmol/L LAB CHEMISTRY METHOD 09/23/2024 4:37 PM [facility] Chloride 102 96 - 110 mmol/L LAB CHEMISTRY METHOD 09/23/2024 4:37 PM [facility] CO2 31 21 - 32 mmol/L LAB CHEMISTRY METHOD 09/23/2024 4:37 PM [facility] Anion Gap 7 3 - 11 LAB CHEMISTRY METHOD 09/23/2024 4:37 PM [facility] Glucose 106(H) 70 - 100 mg/dL LAB CHEMISTRY METHOD 09/23/2024 4:37 PM [facility] BUN 82(H) 5 - 25 mg/dL LAB CHEMISTRY METHOD 09/23/2024 4:37 PM [facility] Creatinine 2.46(H) 0.50 - 1.10 mg/dL LAB CHEMISTRY METHOD 09/23/2024 4:37 PM [facility] eGFR 20(L) >=60 mL/min/1. 73m2 LAB CHEMISTRY METHOD 09/23/2024 4:37 PM [facility] Comment:Calculation based on the Chronic Kidney Disease Epidemiology Collaboration (CKD-EPI) equation refit without adjustment for race. BUN/Creatinine Ratio 33.3 LAB CHEMISTRY METHOD 09/23/2024 4:37 PM [facility] Calcium 8.7 8.5 - 10.5 mg/dL LAB CHEMISTRY METHOD 09/23/2024 4:37 PM [facility] AST (SGOT) 17 10 - 42 unit/L LAB CHEMISTRY METHOD 09/23/2024 4:37 PM [facility] ALT (SGPT) 34 10 - 60 unit/L LAB CHEMISTRY METHOD 09/23/2024 4:37 PM [facility] Alkaline Phosphatase 57 42 - 121 unit/L LAB CHEMISTRY METHOD 09/23/2024 4:37 PM [facility] Total Protein 7.1 6.0 - 8.0 g/dL LAB CHEMISTRY METHOD 09/23/2024 4:37 PM [facility] Albumin 3.2 3.2 - 5.0 g/dL LAB CHEMISTRY METHOD 09/23/2024 4:37 PM [facility] Total Bilirubin 0.6 0.0 - 1.4 mg/dL LAB CHEMISTRY METHOD 09/23/2024 4:37 PM [facility] Blood Venous blood specimen / Unknown Venipuncture / Unknown 09/23/2024 8:20 AM EST 09/23/2024 12:06 PM EST us Amina Burciaga MD LAB BLOOD ORDERABLES Final Resul t [facility] [address] [place] [address], * (ABNORMAL) Complete blood count (09/23/2024 8:20 AM EST) [facility] WBC 6.2 4.8 - 10.8 K/mcL LAB HEMETOLOGY METHOD 09/23/2024 12:38 PM [facility] RBC 3.60(L) 3.80 - 4.80 M/mcL LAB HEMETOLOGY METHOD 09/23/2024 12:38 PM [facility] Hemoglobin 10.5(L) 11.5 - 16.0 g/dL LAB HEMETOLOGY METHOD 09/23/2024 12:38 PM [facility] Hematocrit 36.5 35.0 - 47.0 % LAB HEMETOLOGY METHOD 09/23/2024 12:38 PM [facility] MCV 100.3(H) 79.0 - 98.0 FL LAB HEMETOLOGY METHOD 09/23/2024 12:38 PM [facility] MCH 28.8 27.0 - 32.0 pcg LAB HEMETOLOGY METHOD 09/23/2024 12:38 PM [facility] MCHC 28.8(L) 32.0 - 37.0 g/dL LAB HEMETOLOGY METHOD 09/23/2024 12:38 PM [facility] RDW 18.4(H) 11.0 - 15.0 % LAB HEMETOLOGY METHOD 09/23/2024 12:38 PM [facility] Platelets 254 130 - 400 K/mcL LAB HEMETOLOGY METHOD 09/23/2024 12:38 PM [facility] MPV 10.7 7.0 - 11.0 FL LAB HEMETOLOGY METHOD 09/23/2024 12:38 PM [facility] NRBC 0.0 <1.0 % LAB HEMETOLOGY METHOD 09/23/2024 12:38 PM EST [facility] NRBC Absolute 0.00 <0.10 K/mcL LAB HEMETOLOGY METHOD 09/23/2024 12:38 PM EST [facility] Blood Venous blood specimen / Unknown Venipuncture / Unknown 09/23/2024 8:20 AM EST 09/23/2024 12:06 PM EST us Amina Burciaga MD LAB BLOOD ORDERABLES Final Resul t [facility] [address] [place] [address], documented in this encounter Visit Diagnoses Diagnosis Type 2 diabetes mellitus with unspecified complications (CMS/HCC V24, CMS/HCC V28) Unspecified systolic (congestive) heart failure (CMS/HCC V24, CMS/HCC V28) documented in this encounter Care Teams Conversion Worker Relationship Specialty Start Date End Date Amina Burciaga MD [address] [place] [address] PCP - General Hospitalist Medicine 09/11/24 documented as of this encounter
--- OUTSIDE RECORDS SUMMARY | 2025-06-04 05:38 | XMS_ITS | Encounter Summary ---
Author Organization [facility] Address [address] [place] [address] Care Team Providers Care Confectionery Cooker Name Role Phone Amina Burciaga MD Primary Care Provider Encounter Details Date Type Department Care Team (Latest Contact Info) Description 09/07/2024 Lab Requisition [facility] - Main Lab [address] [facility] [place] [address] Amina Burciaga MD [address] [place] [address] Heart failure, unspecified (CMS/HCC V24, [...] unspecified Type 2 diabetes mellitus without complications ([facility]) documented in this encounter Results * Hemoglobin A1c (09/07/2024 6:24 AM EST) Pathologist [facility] [place] Hemoglobin A1C 5.1 <6.5 % LAB CHEMISTRY METHOD 09/07/2024 11:11 AM EST [facility] Mean Bld Glu Estim. 100 mg/dL LAB CHEMISTRY METHOD 09/07/2024 11:11 AM [facility] Blood Venous blood specimen / Unknown Venipuncture / Unknown 09/07/2024 6:24 AM EST 09/07/2024 8:12 AM EST Amina Burciaga MD LAB BLOOD ORDERABLES Final Resul t [facility] [address] [place] [address], * (ABNORMAL) Comprehensive metabolic panel (09/07/2024 6:24 AM EST) [facility] Sodium 140 133 - 145 mmol/L LAB CHEMISTRY METHOD 09/07/2024 9:18 AM [facility] Potassium 3.8 3.5 - 5.5 mmol/L LAB CHEMISTRY METHOD 09/07/2024 9:18 AM [facility] Chloride 106 96 - 110 mmol/L LAB CHEMISTRY METHOD 09/07/2024 9:18 AM [facility] CO2 28 21 - 32 mmol/L LAB CHEMISTRY METHOD 09/07/2024 9:18 AM [facility] Anion Gap 6 3 - 11 LAB CHEMISTRY METHOD 09/07/2024 9:18 AM [facility] Glucose 61(L) 70 - 100 mg/dL LAB CHEMISTRY METHOD 09/07/2024 9:18 AM [facility] BUN 59(H) 5 - 25 mg/dL LAB CHEMISTRY METHOD 09/07/2024 9:18 AM [facility] Creatinine 3.13(H) 0.50 - 1.10 mg/dL LAB CHEMISTRY METHOD 09/07/2024 9:18 AM [facility] eGFR 15(L) >=60 mL/min/1. 73m2 LAB CHEMISTRY METHOD 09/07/2024 9:18 AM [facility] Comment:Calculation based on the Chronic Kidney Disease Epidemiology Collaboration (CKD-EPI) equation refit without adjustment for race. BUN/Creatinine Ratio 18.8 LAB CHEMISTRY METHOD 09/07/2024 9:18 AM [facility] Calcium 9.0 8.5 - 10.5 mg/dL LAB CHEMISTRY METHOD 09/07/2024 9:18 AM [facility] AST (SGOT) 17 10 - 42 unit/L LAB CHEMISTRY METHOD 09/07/2024 9:18 AM [facility] ALT (SGPT) 20 10 - 60 unit/L LAB CHEMISTRY METHOD 09/07/2024 9:18 AM [facility] Alkaline Phosphatase 60 42 - 121 unit/L LAB CHEMISTRY METHOD 09/07/2024 9:18 AM [facility] Total Protein 6.9 6.0 - 8.0 g/dL LAB CHEMISTRY METHOD 09/07/2024 9:18 AM [facility] Albumin 3.0(L) 3.2 - 5.0 g/dL LAB CHEMISTRY METHOD 09/07/2024 9:18 AM [facility] Total Bilirubin 0.5 0.0 - 1.4 mg/dL LAB CHEMISTRY METHOD 09/07/2024 9:18 AM [facility] Blood Venous blood specimen / Unknown Venipuncture / Unknown 09/07/2024 6:24 AM EST 09/07/2024 8:12 AM EST us Amina Burciaga MD LAB BLOOD ORDERABLES Final Resul t [facility] [address] [place] [address], * (ABNORMAL) Complete blood count (09/07/2024 6:24 AM EST) [facility] Signature WBC 4.7(L) 4.8 - 10.8 K/mcL LAB HEMETOLOGY METHOD 09/07/2024 8:53 AM [facility] RBC 3.00(L) 3.80 - 4.80 M/mcL LAB HEMETOLOGY METHOD 09/07/2024 8:53 AM [facility] Hemoglobin 8.9(L) 11.5 - 16.0 g/dL LAB HEMETOLOGY METHOD 09/07/2024 8:53 AM [facility] Hematocrit 30.6(L) 35.0 - 47.0 % LAB HEMETOLOGY METHOD 09/07/2024 8:53 AM [facility] MCV 101.7(H) 79.0 - 98.0 FL LAB HEMETOLOGY METHOD 09/07/2024 8:53 AM [facility] MCH 29.6 27.0 - 32.0 pcg LAB HEMETOLOGY METHOD 09/07/2024 8:53 AM [facility] MCHC 29.1(L) 32.0 - 37.0 g/dL LAB HEMETOLOGY METHOD 09/07/2024 8:53 AM [facility] RDW 20.1(H) 11.0 - 15.0 % LAB HEMETOLOGY METHOD 09/07/2024 8:53 AM [facility] Platelets 196 130 - 400 K/mcL LAB HEMETOLOGY METHOD 09/07/2024 8:53 AM [facility] MPV 10.0 7.0 - 11.0 FL LAB HEMETOLOGY METHOD 09/07/2024 8:53 AM [facility] NRBC [...] MD LAB BLOOD ORDERABLES Final Resul t [facility] [address] [place] [address], documented in this encounter Visit Diagnoses Diagnosis Heart failure, unspecified (CMS/HCC V24, CMS/HCC V28) Heart failure, unspecified Chronic kidney disease, unspecified Type 2 diabetes mellitus without complications (CMS/HCC V24, CMS/HCC V28) documented in this encounter Care Teams Confectionery Cooker Relationship Specialty Start Date End Date Amina Burciaga MD [address] [place] [phone] PCP - General Hospitalist Medicine 09/11/24 documented as of this encounter
--- OUTSIDE RECORDS SUMMARY | 2025-06-04 05:38 | XMS_ITS | Encounter Summary ---
Author Organization [facility] Address [address] [place] [phone] Care Team Providers Care Public Address Announcer Name Role Phone Amina Burciaga MD Primary Care Provider [phone] Encounter Details Date Type Department Care Team (Late st Contact Info) Description 09/30/[address] [facility] - Main Lab [address] [facility] [place] [address] Isaac Stark MD [address] [place] [address] [place] [address] Heart failure, unspecified [...] (ABNORMAL) Vitamin B12 (09/30/2024 9:57 AM EST) [facility] Vitamin B-12 1,028(H) 250 - 900 pcg/mL LAB CHEMISTRY METHOD 09/30/2024 1:04 PM [facility] Blood Venous blood specimen / Unknown Venipuncture / Unknown 09/30/2024 9:57 AM EST 09/30/2024 10:50 AM EST us Isaac Stark MD LAB BLOOD ORDERABLES Final Resu lt [facility] [address] [place] [address], [place] [phone] * (ABNORMAL) Comprehensive metabolic panel (09/30/2024 9:57 AM EST) [facility] Sodium 138 133 - 145 mmol/L LAB [...] MD LAB BLOOD ORDERABLES Final Resu lt [facility] [address] [place] [address], * (ABNORMAL) Complete blood count (09/30/2024 9:57 AM EST) [facility] WBC 5.9 4.8 - 10.8 K/mcL LAB HEMETOLOGY METHOD 09/30/2024 12:25 PM [facility] RBC 3.80 3.80 - 4.80 M/mcL LAB HEMETOLOGY METHOD 09/30/2024 12:25 PM [facility] Hemoglobin 11.2(L) 11.5 - 16.0 g/dL LAB HEMETOLOGY METHOD 09/30/2024 12:25 PM [facility] Hematocrit 37.7 35.0 - 47.0 % LAB HEMETOLOGY METHOD 09/30/2024 12:25 PM [facility] MCV 98.2(H) 79.0 - 98.0 FL LAB HEMETOLOGY METHOD 09/30/2024 12:25 PM [facility] MCH 29.2 27.0 - 32.0 pcg LAB HEMETOLOGY METHOD 09/30/2024 12:25 PM [facility] MCHC 29.7(L) 32.0 - 37.0 g/dL LAB HEMETOLOGY METHOD 09/30/2024 12:25 PM [facility] RDW 17.7(H) 11.0 - 15.0 % LAB HEMETOLOGY METHOD 09/30/2024 12:25 PM [facility] Platelets 183 130 - 400 K/mcL LAB HEMETOLOGY METHOD 09/30/2024 12:25 PM [facility] MPV 11.7(H) 7.0 - 11.0 FL LAB HEMETOLOGY METHOD 09/30/2024 12:25 PM [facility] NRBC 0.0 <1.0 % LAB HEMETOLOGY METHOD 09/30/2024 12:25 PM [facility] NRBC Absolute 0.00 <0.10 K/mcL LAB HEMETOLOGY METHOD 09/30/2024 12:25 PM EST [facility] Blood Venous blood specimen / Unknown Venipuncture / Unknown 09/30/2024 9:57 AM EST 09/30/2024 10:50 AM EST us Isaac Stark MD LAB BLOOD ORDERABLES Final Resu lt Performing Organization Address City/[facility]/ZIP Co de Phone Number [facility] [address] [place] [address], [place] [phone] * Vitamin D 25 hydroxy (09/30/2024 9:57 AM EST) Vit D, 25-Hydroxy 54.9 30.0 - 80.0 ng/mL LAB CHEMISTRY METHOD 09/30/2024 12:48 PM EST [facility] Blood Venous blood specimen / Unknown Venipuncture / Unknown 09/30/2024 9:57 AM EST 09/30/2024 10:50 AM EST us Isaac Stark MD LAB BLOOD ORDERABLES Final Resu lt Performing Organization Address [facility]/ZIP Co de Phone Number [facility] [address] [place] [address], [place] [phone] documented in this encounter Visit Diagnoses Diagnosis Heart failure, unspecified (CMS/HCC V24, CMS/HCC V28) Heart failure, unspecified Vitamin D deficiency, unspecified documented in this encounter Care Teams Public Address Announcer Relationship Specialty Start Date End Date Amina Burciaga MD [address] [place] [phone] PCP - General Hospitalist Medicine 09/11/24 documented as of this encounter
--- OUTSIDE RECORDS SUMMARY | 2025-06-04 05:39 | XMS_ITS | Encounter Summary ---
Author Organization [facility] Address [address] [place] [address] Care Team Providers Care Cattle Farmer Name Role Phone Amina Burciaga MD Primary Care Provider Encounter Details Date Type Department Care Team (Late st Contact Info) Description 08/03/2024 Lab Requisition [facility] - Main Lab 299 [facility] [place] [address] Hortencia Mcclellan MD [address] [phone] Type 2 diabetes mellitus without complications (CMS/HCC [...] mmol/L LAB CHEMISTRY METHOD 08/04/2024 9:42 AM [facility] Potassium 3.6 3.5 - 5.5 mmol/L LAB CHEMISTRY METHOD 08/04/2024 9:42 AM [facility] Chloride 106 96 - 110 mmol/L LAB CHEMISTRY METHOD 08/04/2024 9:42 AM [facility] CO2 29 21 - 32 mmol/L LAB CHEMISTRY METHOD 08/04/2024 9:42 AM [facility] Anion Gap 8 3 - 11 LAB CHEMISTRY METHOD 08/04/2024 9:42 AM [facility] Glucose 64(L) 70 - 100 mg/dL LAB CHEMISTRY METHOD 08/04/2024 9:42 AM [facility] BUN 44(H) 5 - 25 mg/dL LAB CHEMISTRY METHOD 08/04/2024 9:42 AM [facility] Creatinine 2.43(H) 0.50 - 1.10 mg/dL LAB CHEMISTRY METHOD 08/04/2024 9:42 AM [facility] eGFR 20(L) >=60 mL/min/1. 73m2 LAB CHEMISTRY METHOD 08/04/2024 9:42 AM [facility] Comment:Calculation based on the Chronic Kidney Disease Epidemiology Collaboration (CKD-EPI) equation refit without adjustment for race. BUN/Creatinine Ratio 18.1 LAB CHEMISTRY METHOD 08/04/2024 9:42 AM [facility] Calcium 8.8 8.5 - 10.5 mg/dL LAB CHEMISTRY METHOD 08/04/2024 9:42 AM [facility] Blood Venous blood specimen / Unknown Venipuncture / Unknown 08/04/2024 6:38 AM EST 08/04/2024 8:24 AM EST us Hortencia Mcclellan MD LAB BLOOD ORDERABLES Fin al Result [facility] [address] [place] [address], * (ABNORMAL) Complete blood count (08/04/2024 6:38 AM EST) [facility] WBC 4.5(L) 4.8 - 10.8 K/mcL LAB HEMETOLOGY METHOD 08/04/2024 9:19 AM [facility] RBC 3.20(L) 3.80 - 4.80 M/mcL LAB HEMETOLOGY METHOD 08/04/2024 9:19 AM [facility] Hemoglobin 9.0(L) 11.5 - 16.0 g/dL LAB HEMETOLOGY METHOD 08/04/2024 9:19 AM [facility] Hematocrit 31.8(L) 35.0 - 47.0 % LAB HEMETOLOGY METHOD 08/04/2024 9:19 AM [facility] MCV 100.0(H) 79.0 - 98.0 FL LAB HEMETOLOGY METHOD 08/04/2024 9:19 AM [facility] MCH 28.3 27.0 - 32.0 pcg LAB HEMETOLOGY METHOD 08/04/2024 9:19 AM [facility] MCHC 28.3(L) 32.0 - 37.0 g/dL LAB HEMETOLOGY METHOD 08/04/2024 9:19 AM [facility] RDW 18.9(H) 11.0 - 15.0 % LAB HEMETOLOGY METHOD 08/04/2024 9:19 AM [facility] Platelets 188 130 - 400 K/mcL LAB HEMETOLOGY METHOD 08/04/2024 9:19 AM [facility] MPV 10.6 7.0 - 11.0 FL LAB HEMETOLOGY METHOD 08/04/2024 9:19 AM [facility] NRBC 0.0 <1.0 % LAB HEMETOLOGY METHOD 08/04/2024 9:[address] [facility] NRBC Absolute 0.00 <0.10 K/mcL LAB HEMETOLOGY METHOD 08/04/2024 9:[address] [facility] Blood Venous blood specimen / Unknown Venipuncture / Unknown 08/04/2024 6:38 AM EST 08/04/2024 8:24 AM EST us Hortencia Mcclellan MD LAB BLOOD ORDERABLES Fin al Result [facility] [address] [place] [address], documented in this encounter Visit Diagnoses Diagnosis Type 2 diabetes mellitus without complications (CMS/HCC V24, CMS/HCC V28) Heart failure, unspecified (CMS/HCC V24, CMS/HCC V28) Heart failure, unspecified documented in this encounter Care Teams Cattle Farmer Relationship Specialty Start Date End Date Amina Burciaga MD [address] [place] [address] PCP - General Hospitalist Medicine 09/11/24 documented as of this encounter
--- OUTSIDE RECORDS SUMMARY | 2025-06-04 05:39 | XMS_ITS | Encounter Summary ---
Author Organization [facility] Address [address] [place] [address] Care Team Providers Care Duster Tender Name Role Phone Amina Burciaga MD Primary Care Provider [phone] Encounter Details Date Type Department Care Team (Late st Contact Info) Description 07/27/2024 Lab Requisition [facility] - Main Lab 299 [facility] [place] [address] Hortencia Mcclellan MD [address] [phone] Type 2 diabetes mellitus without complications (CMS/HCC [...] mmol/L LAB CHEMISTRY METHOD 07/28/2024 8:47 AM [facility] Potassium 4.3 3.5 - 5.5 mmol/L LAB CHEMISTRY METHOD 07/28/2024 8:47 AM [facility] Chloride 107 96 - 110 mmol/L LAB CHEMISTRY METHOD 07/28/2024 8:47 AM [facility] CO2 25 21 - 32 mmol/L LAB CHEMISTRY METHOD 07/28/2024 8:47 AM [facility] Anion Gap 10 3 - 11 LAB CHEMISTRY METHOD 07/28/2024 8:47 AM [facility] Glucose 49(L) 70 - 100 mg/dL LAB CHEMISTRY METHOD 07/28/2024 8:47 AM [facility] BUN 45(H) 5 - 25 mg/dL LAB CHEMISTRY METHOD 07/28/2024 8:47 AM [facility] Creatinine 2.36(H) 0.50 - 1.10 mg/dL LAB CHEMISTRY METHOD 07/28/2024 8:47 AM [facility] eGFR 21(L) >=60 mL/min/1. 73m2 LAB CHEMISTRY METHOD 07/28/2024 8:47 AM [facility] Comment:Calculation based on the Chronic Kidney Disease Epidemiology Collaboration (CKD-EPI) equation refit without adjustment for race. BUN/Creatinine Ratio 19.1 LAB CHEMISTRY METHOD 07/28/2024 8:47 AM [facility] Calcium 9.2 8.5 - 10.5 mg/dL LAB CHEMISTRY METHOD 07/28/2024 8:47 AM [facility] Blood Venous blood specimen / Unknown Venipuncture / Unknown 07/28/2024 5:41 AM EST 07/28/2024 8:02 AM EST us Hortencia Mcclellan MD LAB BLOOD ORDERABLES Fin al Result [facility] [address] [place] [address], * (ABNORMAL) Complete blood count (07/28/2024 5:41 AM EST) [facility] WBC 4.1(L) 4.8 - 10.8 K/mcL LAB HEMETOLOGY METHOD 07/28/2024 8:20 AM [facility] RBC 3.00(L) 3.80 - 4.80 M/mcL LAB HEMETOLOGY METHOD 07/28/2024 8:20 AM [facility] Hemoglobin 8.6(L) 11.5 - 16.0 g/dL LAB HEMETOLOGY METHOD 07/28/2024 8:20 AM [facility] Hematocrit 29.9(L) 35.0 - 47.0 % LAB HEMETOLOGY METHOD 07/28/2024 8:20 AM [facility] MCV 99.7(H) 79.0 - 98.0 FL LAB HEMETOLOGY METHOD 07/28/2024 8:20 AM [facility] MCH 28.7 27.0 - 32.0 pcg LAB HEMETOLOGY METHOD 07/28/2024 8:20 AM [facility] MCHC 28.8(L) 32.0 - 37.0 g/dL LAB HEMETOLOGY METHOD 07/28/2024 8:20 AM [facility] RDW 19.6(H) 11.0 - 15.0 % LAB HEMETOLOGY METHOD 07/28/2024 8:20 AM [facility] Platelets 162 130 - 400 K/mcL LAB HEMETOLOGY METHOD 07/28/2024 8:20 AM [facility] MPV 10.5 7.0 - 11.0 FL LAB HEMETOLOGY METHOD 07/28/2024 8:20 AM [facility] NRBC 0.0 <1.0 % LAB HEMETOLOGY METHOD 07/28/2024 8:20 AM EST [facility] NRBC Absolute 0.00 <0.10 K/mcL LAB HEMETOLOGY METHOD 07/28/2024 8:20 AM EST [facility] Blood Venous blood specimen / Unknown Venipuncture / Unknown 07/28/2024 5:41 AM EST 07/28/2024 8:02 AM EST us Hortencia Mcclellan MD LAB BLOOD ORDERABLES Fin al Result [facility] [address] [place] [address], documented in this encounter Visit Diagnoses Diagnosis Type 2 diabetes mellitus without complications (CMS/HCC V24, CMS/HCC V28) Heart failure, unspecified (CMS/HCC V24, CMS/HCC V28) Heart failure, unspecified documented in this encounter Care Teams Duster Tender Relationship Specialty Start Date End Date Amina Burciaga MD [address] [place] [address] PCP - General Hospitalist Medicine 09/11/24 documented as of this encounter
--- OUTSIDE RECORDS SUMMARY | 2025-06-04 05:39 | XMS_ITS | Encounter Summary ---
Author Organization [facility], Address [address] [place] [address] Phone Care Team Providers Care Director Of Rotc Name Role Phone Dandre Chavez MD Primary Care Provider [phone] Encounter Details Date Type Department Care Team (Late st Contact Info) Description 12/31/2022 Documentation Only [facility], [address] [place] [address] Melissa Delgadillo [address] [place] [phone] Social History Tobacco Use Types Packs/Day Years [...] in this encounter Care Teams Director Of Rotc Relationship Specialty Start Date End Date Dandre Chavez MD [address] [place] [address], [address] [place], [place] PCP - General 07/07/19 documented as of this encounter
--- OUTSIDE RECORDS SUMMARY | 2025-06-04 05:39 | XMS_ITS | Encounter Summary ---
Author Organization [facility] Address [address] [place] [phone] Care Team Providers Care Varnish Melter Name Role Phone Amina Burciaga MD Primary Care Provider [phone] Encounter Details Date Type Department Care Team (Late st Contact Info) Description 07/23/2024 Lab Requisition [facility] - Main Lab [address] [place] [address] Hortencia Mcclellan MD [address] [phone] Chronic kidney disease, unspecified; Type 2 diabetes [...] LAB CHEMISTRY METHOD 07/23/2024 9:[address] [facility] Potassium 3.8 3.5 - 5.5 mmol/L LAB CHEMISTRY METHOD 07/23/2024 9:[address] [facility] Chloride 111(H) 96 - 110 mmol/L LAB CHEMISTRY METHOD 07/23/2024 9:13 AM [facility] CO2 27 21 - 32 mmol/L LAB CHEMISTRY METHOD 07/23/2024 9:13 AM [facility] Anion Gap 6 3 - 11 LAB CHEMISTRY METHOD 07/23/2024 9:13 AM [facility] Glucose 64(L) 70 - 100 mg/dL LAB CHEMISTRY METHOD 07/23/2024 9:13 AM [facility] BUN 62(H) 5 - 25 mg/dL LAB CHEMISTRY METHOD 07/23/2024 9:13 AM [facility] Creatinine 2.70(H) 0.50 - 1.10 mg/dL LAB CHEMISTRY METHOD 07/23/2024 9:13 AM [facility] eGFR 18(L) >=60 mL/min/1. 73m2 LAB CHEMISTRY METHOD 07/23/2024 9:13 AM [facility] Comment:Calculation based on the Chronic Kidney Disease Epidemiology Collaboration (CKD-EPI) equation refit without adjustment for race. BUN/Creatinine Ratio 23.0 LAB CHEMISTRY METHOD 07/23/2024 9:13 AM [facility] Calcium 9.2 8.5 - 10.5 mg/dL LAB CHEMISTRY METHOD 07/23/2024 9:13 AM [facility] Blood Venous blood specimen / Unknown Venipuncture / Unknown 07/23/2024 5:52 AM EST 07/23/2024 8:17 AM EST us Hortencia Mcclellan MD LAB BLOOD ORDERABLES Fin al Result [facility] [address] [place] [address], documented in this encounter Visit Diagnoses Diagnosis Chronic kidney disease, unspecified Type 2 diabetes mellitus without complications (CMS/HCC V24, CMS/HCC V28) documented in this encounter Care Teams Varnish Melter Relationship Specialty Start Date End Date Amina Burciaga MD [address] [place] [phone] PCP - General Hospitalist Medicine 09/11/24 documented as of this encounter
--- OUTSIDE RECORDS SUMMARY | 2025-06-04 05:39 | XMS_ITS | Encounter Summary ---
Author Organization [facility], Address [address] [place] [address] Phone Care Team Providers Care Driver Recruiter Name Role Phone Dandre Chavez MD Primary Care Provider [phone] Encounter Details Date Type Department Care Team (Late st Contact Info) Description 12/31/2022 Documentation Only [facility], [address] [place] [address] Melissa Delgadillo [address] [place] [phone] Social History Tobacco Use Types Packs/Day Years [...] on filedocumented in this encounter Care Teams Driver Recruiter Relationship Specialty Start Date End Date Dandre Chavez MD [address] [place] [address], [address] [place], [place] PCP - General 07/07/19 documented as of this encounter
--- OUTSIDE RECORDS SUMMARY | 2025-06-04 05:40 | XMS_ITS | Encounter Summary ---
Author Organization [facility] Address [address] [place] [phone] Care Team Providers Care Mortgage Underwriter Name Role Phone Amina Burciaga MD Primary Care Provider [phone] Encounter Details Date Type Department Care Team (Late st Contact Info) Description 08/10/2024 Lab Requisition [facility] - Main Lab 299 [facility] [place] [address] Hortencia Mcclellan MD [address] [phone] Type 2 diabetes mellitus without complications (CMS/HCC [...] unspecified documented in this encounter Care Teams Mortgage Underwriter Relationship Specialty Start Date End Date Amina Burciaga MD [address] [place] [address] PCP - General Hospitalist Medicine 09/11/24 documented as of this encounter
--- OUTSIDE RECORDS SUMMARY | 2025-06-04 05:40 | XMS_ITS | Encounter Summary ---
Author Organization [facility] Address [address] [place] [address] Care Team Providers Care Sewing Pattern Layout Technician Name Role Phone Amina Burciaga MD Primary Care Provider [phone] Encounter Details Date Type Department Care Team (Late st Contact Info) Description 07/20/2024 Lab Requisition [facility] - Main Lab 299 [facility] [place] [address] Hortencia Mcclellan MD 819 [facility] 1 [place], [place] [id number] Type 2 diabetes mellitus without complications (CMS/HCC [...] Fin al Result [facility] 299 [place] [address], * (ABNORMAL) Complete blood count (07/21/2024 5:53 AM EST) [facility] WBC 5.0 4.8 - 10.8 K/mcL [...] LAB HEMETOLOGY METHOD 07/21/2024 8:26 AM EST [facility] NRBC Absolute 0.00 <0.10 K/mcL LAB HEMETOLOGY METHOD 07/21/2024 8:26 AM EST [facility] Blood Venous blood specimen / Unknown Venipuncture / Unknown 07/21/2024 5:53 AM EST 07/21/2024 7:55 AM EST us Hortencia Mcclellan MD LAB BLOOD ORDERABLES Fin al Result [facility] [address] [place] [address], documented in this encounter Visit Diagnoses Diagnosis Type 2 diabetes mellitus without complications (CMS/HCC V24, CMS/HCC V28) Heart failure, unspecified (CMS/HCC V24, CMS/HCC V28) Heart failure, unspecified documented in this encounter Care Teams Sewing Pattern Layout Technician Relationship Specialty Start Date End Date Amina Burciaga MD [address] [place] [address] PCP - General Hospitalist Medicine 09/11/24 documented as of this encounter
--- OUTSIDE RECORDS SUMMARY | 2025-06-04 05:40 | XMS_ITS | Encounter Summary ---
Author Organization [facility], Address [address] [place] [address] Phone Care Team Providers Care Insulation Applicator Name Role Phone Dandre Chavez MD Primary Care Provider [phone] Encounter Details Date Type Department Care Team (Late st Contact Info) Description 10/30/2022 Documentation Only [facility], [address] [place] [address] Melissa Delgadillo [address] [place] [phone] Social History Tobacco Use Types Packs/Day Years [...] on filedocumented in this encounter Care Teams Insulation Applicator Relationship Specialty Start Date End Date Dandre Chavez MD [address] [place] [address], [address] [place], [place] PCP - General 07/07/19 documented as of this encounter
--- OUTSIDE RECORDS SUMMARY | 2025-06-04 05:40 | XMS_ITS | Encounter Summary ---
Author Organization [facility] Address [address] [place] [address] Care Team Providers Care Rim Fire Charger Operator Name Role Phone Amina Burciaga MD Primary Care Provider [phone] Encounter Details Date Type Department Care Team (Late st Contact Info) Description 07/10/2024 Lab Requisition [facility] - Main Lab 299 [facility] [place] [address] Lloyd Jernigan MD [address] [place] [address] Unspecified dementia, unspecified severity, without behavioral disturbance, [...] MD LAB BLOOD ORDERABLES Final R esult [facility] 299 [place] [address], * (ABNORMAL) Complete blood count (07/10/2024 6:29 [...] LAB HEMETOLOGY METHOD 07/10/2024 9:47 AM EST [facility] NRBC 0.0 <1.0 % LAB HEMETOLOGY METHOD 07/10/2024 9:47 AM EST [facility] NRBC Absolute 0.00 <0.10 K/mcL LAB HEMETOLOGY METHOD 07/10/2024 9:47 AM EST [facility] Blood Venous blood specimen / Unknown Venipuncture / Unknown 07/10/2024 6:29 AM EST 07/10/2024 9:00 AM EST Lloyd Jernigan MD LAB BLOOD ORDERABLES Final R esult Performing Organization Address City/[facility]/ZIP Co de Phone Number [facility] [address] [place] [address], [place] [phone] * Hemoglobin A1c (07/10/2024 6:29 AM EST) Hemoglobin A1C 5.7 <6.5 % LAB CHEMISTRY METHOD 07/10/2024 1:42 PM EST [facility] Mean Bld Glu Estim. 117 mg/dL LAB CHEMISTRY METHOD 07/10/2024 1:42 PM EST [facility] Blood Venous blood specimen / Unknown Venipuncture / Unknown 07/10/2024 6:29 AM EST 07/10/2024 9:00 AM EST Lloyd Jernigan MD LAB BLOOD ORDERABLES Final R esult [facility] [address] [place] [address], [place] [phone] documented in this encounter Visit Diagnoses Diagnosis Unspecified dementia, unspecified severity, without behavioral disturbance, psychotic disturbance, mood disturbance, and anxiety (CMS/HCC V24, CMS/HCC V28) documented in this encounter Care Teams Rim Fire Charger Operator Relationship Specialty Start Date End Date Amina Burciaga MD [address] [place] [address] PCP - General Hospitalist Medicine 09/11/24 documented as of this encounter
--- OUTSIDE RECORDS SUMMARY | 2025-06-04 05:40 | XMS_ITS | Encounter Summary ---
Author Organization [facility] Address [address] [place] [address] Care Team Providers Care Manager Child Name Role Phone Amina Burciaga MD Primary Care Provider [phone] Encounter Details Date Type Department Care Team (Late st Contact Info) Description 07/13/[address] [facility] - Main Lab 299 [facility] [place] [address] Hortencia Mcclellan MD [address] [id number] Type 2 diabetes mellitus without complications (CMS/HCC [...] mmol/L LAB CHEMISTRY METHOD 07/14/2024 9:03 AM [facility] Potassium 3.8 3.5 - 5.5 mmol/L LAB CHEMISTRY METHOD 07/14/2024 9:03 AM [facility] Chloride 105 96 - 110 mmol/L LAB CHEMISTRY METHOD 07/14/2024 9:03 AM [facility] CO2 28 21 - 32 mmol/L LAB CHEMISTRY METHOD 07/14/2024 9:03 AM [facility] Anion Gap 6 3 - 11 LAB CHEMISTRY METHOD 07/14/2024 9:03 AM [facility] Glucose 105(H) 70 - 100 mg/dL LAB CHEMISTRY METHOD 07/14/2024 9:03 AM [facility] BUN 70(H) 5 - 25 mg/dL LAB CHEMISTRY METHOD 07/14/2024 9:03 AM [facility] Creatinine 3.26(H) 0.50 - 1.10 mg/dL LAB CHEMISTRY METHOD 07/14/2024 9:03 AM [facility] eGFR 14(L) >=60 mL/min/1. 73m2 LAB CHEMISTRY METHOD 07/14/2024 9:03 AM [facility] Comment:Calculation based on the Chronic Kidney Disease Epidemiology Collaboration (CKD-EPI) equation refit without adjustment for race. BUN/Creatinine Ratio 21.5 LAB CHEMISTRY METHOD 07/14/2024 9:03 AM [facility] Calcium 8.6 8.5 - 10.5 mg/dL LAB CHEMISTRY METHOD 07/14/2024 9:03 AM [facility] Blood Venous blood specimen / Unknown Venipuncture / Unknown 07/14/2024 6:08 AM EST 07/14/2024 8:03 AM EST us Hortencia Mcclellan MD LAB BLOOD ORDERABLES Fin al Result [facility] [address] [place] [address], * (ABNORMAL) Complete blood count (07/14/2024 6:08 AM EST) [facility] WBC 5.3 4.8 - 10.8 K/mcL LAB HEMETOLOGY METHOD 07/14/2024 8:32 AM [facility] RBC 3.00(L) 3.80 - 4.80 M/mcL LAB HEMETOLOGY METHOD 07/14/2024 8:32 AM [facility] Hemoglobin 8.3(L) 11.5 - 16.0 g/dL LAB HEMETOLOGY METHOD 07/14/2024 8:32 AM [facility] Hematocrit 29.9(L) 35.0 - 47.0 % LAB HEMETOLOGY METHOD 07/14/2024 8:32 AM [facility] MCV 101.4(H) 79.0 - 98.0 FL LAB HEMETOLOGY METHOD 07/14/2024 8:32 AM [facility] MCH 28.1 27.0 - 32.0 pcg LAB HEMETOLOGY METHOD 07/14/2024 8:32 AM [facility] MCHC 27.8(L) 32.0 - 37.0 g/dL LAB HEMETOLOGY METHOD 07/14/2024 8:32 AM [facility] RDW 20.0(H) 11.0 - 15.0 % LAB HEMETOLOGY METHOD 07/14/2024 8:32 AM [facility] Platelets 198 130 - 400 K/mcL LAB HEMETOLOGY METHOD 07/14/2024 8:32 AM [facility] MPV 10.3 7.0 - 11.0 FL LAB HEMETOLOGY METHOD 07/14/2024 8:32 AM [facility] NRBC [...] Result [facility] [address] [place] [address], documented in this encounter Visit Diagnoses Diagnosis Type 2 diabetes mellitus without complications (CMS/HCC V24, CMS/HCC V28) Heart failure, unspecified (CMS/HCC V24, CMS/HCC V28) Heart failure, unspecified documented in this encounter Care Teams Manager Child Relationship Specialty Start Date End Date Amina Burciaga MD [address] [place] [address] PCP - General Hospitalist Medicine 09/11/24 documented as of this encounter
--- OUTSIDE RECORDS SUMMARY | 2025-06-04 05:41 | XMS_ITS | Encounter Summary ---
Author Organization [facility], Address [address] [place] [address] Phone Care Team Providers Care Child Development Director Name Role Phone Dandre Chavez MD Primary Care Provider [phone] Encounter Details Date Type Department Care Team (Late st Contact Info) Description 09/07/2022 Documentation Only [facility], [address] [place] [address] Faina Villegas PA Social History Tobacco Use [...] filedocumented in this encounter Care Teams Child Development Director Relationship Specialty Start Date End Date Dandre Chavez MD [address] [place] [address], [address] [place], [place] PCP - General 07/07/19 documented as of this encounter
--- OUTSIDE RECORDS SUMMARY | 2025-06-04 05:41 | XMS_ITS | Encounter Summary ---
Author Organization [facility], Address [address] [place] [address] Phone Care Team Providers Care Services Manager Name Role Phone Dandre Chavez MD Primary Care Provider [phone] Encounter Details Date Type Department Care Team (Late st Contact Info) Description 08/02/2022 Documentation Only [facility], [address] [place] [address] Faina Villegas PA Social History Tobacco Use [...] on filedocumented in this encounter Care Teams Services Manager Relationship Specialty Start Date End Date Dandre Chavez MD [address] [place] [address], [address] [place], [place] PCP - General 07/07/19 documented as of this encounter
--- OUTSIDE RECORDS SUMMARY | 2025-06-04 05:41 | XMS_ITS | Clinical Summary ---
Author Organization [facility] Address [address] [place] [address] Phone Care Team Providers Care Chemical Engineering Professor Name Role Phone Dandre Chavez MD Primary Care Provider [phone] Miguel Enciso MD Unavailable [phone] Allergies Active Allergy Reactions Criticality Noted Date [...] Active ferrous sulfate 325 mg (65 mg [place] iron) EC tablet Take 325 mg by [...] focus on healthy food choices. Atherosclerosis of [place] co ronary artery of [place] heart with angina pectoris 10/28/2018 Assessment & [...] (04/14/2020 10:40 PM EDT): History of inferior KS in 2013 with a stent to her [...] LAD. 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 She is aware that this [...] will have this completed at [facility] due to having her stress test [...] this topic Medical Devices Implanted Type Area Charge Out Clerk Device Identifier Shelf Expiration Date Model / Serial / Lot Sensor Pulmonary Artery Delivery System Cardiomems - [id number] Implanted:Qt y: 1 on 04/03/2022 by Miguel Enciso MD at [facility] Implantable Monitor Left: Arterial [employer] [id number] 12/15/2023 CM PATIENT SYSTEM / [id number] / Description:Pulmonary artery Procedures Procedure Name Priority Date/Time Associated Diagnosis Comments COMPREHENSIVE METABOLIC PANEL Routine 04/18/2022 2:39 PM EDT Atherosclerosis of [place] coronary artery of [place] heart with angina pectoris Essential hypertension Ischemic cardiomyopathy PAD (peripheral artery disease) from Last 3 Months or Most Recently Relevant to Health Maintenance Results * (ABNORMAL) Comprehensive metabolic panel (04/18/2022 2:39 PM EDT) SODIUM 143 133 - 146 mmol/L [facility] POTASSIUM 4.5 3.3 - 5.1 mmol/L [facility] CHLORIDE 100 96 - 108 mmol/L [facility] CO2 34 21 - 35 mmol/L [facility] BUN 38(H) 6 - 19 mg/dL [facility] CREATININE 1.40 0.5 - 1.5 mg/dL [facility] GLUCOSE 163(H) 70 - 99 mg/dL [facility] ALBUMIN 4.0 3.9 - 4.8 g/dL [facility] TOTAL PROTEIN 7.5 6.5 - 8.0 g/dL [facility] CALCIUM 10.1 8.4 - 10.3 mg/dL [facility] ALKALINE PHOSPHATASE 94 39 - 117 U/L [facility] TOTAL BILIRUBIN 0.6 0.0 - 1.2 mg/dL [facility] AST 26 0 - 37 U/L [facility] ALT 12 0 - 40 U/L [facility] GLOBULIN 3.5 1 - 4.8 g/dL [facility] EGFR 39(L) >59 mL/min/1.7 3m2 [facility] Comment:Estimated glomerular filtration rate calculated using the CKD-EPI refit equation. ANION GAP 14 10 - 20 mmol/L [facility] Blood 04/18/2022 2:39 PM EDT 04/18/2022 2:42 PM EDT us Miguel Enciso MD LAB BLOOD ORDERABLES Final Result [facility] [address] [place] [address] from Last 3 Months or Most Recently Relevant to Health Maintenance Insurance MEDICARE PART A & B [place] PREFERRED HMO REPLACEMENT [facility] [address] MEDICARE PART A & B [place] PREFERRED HMO REPLACEMENT [facility] [place] [address] MEDICARE PART A & B Member Subscriber Plan / Payer (Ef fective 2012-Present) Name:Amina Zamora Member ID:[id number] Relation to Subscriber:Self Name:Amina Zamora Subscriber ID:[id number] Payer ID:[id number] Group ID:Not on file Type:Medicare Address: [place] [address] [place] [phone] [facility] MEDICARE PREFERRED HMO REPLACEMENT MEDICARE PART A & B [place] [employer] PREFERRED HMO REPLACEMENT MEDICARE PART A & B Member Subscriber Plan / Payer ( fective 2012-Present) Name:Amina Zamora Member ID:[id number] Relation to Subscriber:Self Name:Amina Zamora Subscriber ID:[id number] Payer ID:[id number] Group ID:Not on file Type:Medicare Address: [facility] [employer] [facility] [address] [place] [address] [place] [employer] PREFERRED HMO REPLACEMENT [facility] MEDICARE PART A & B [place] MEDIC[place] PREFERRED HMO REPLACEMENT MEDICARE PART A & B [place] PREFERRED HMO REPLACEMENT [facility] MEDICARE PART A & B [place] MED[place] PREFERRED HMO REPLACEMENT [facility] MEDICARE PART A & B [place] MEDIC[place] PREFERRED HMO REPLACEMENT [facility] Care Teams Chemical Engineering Professor Relationship Specialty Start Date End Date Dandre Chavez MD [address] [place] [address] PCP - General 09/05/17 Miguel Enciso MD [address] [place] [phone] [email or web address] Cardiology 05/28/24 Additional Source Comments The information contained in this document represents components of the legal health record. It is not the complete legal health record.[facility]
--- OUTSIDE RECORDS SUMMARY | 2025-06-04 05:42 | XMS_ITS | Encounter Summary ---
Author Organization [facility], Address [address] [place] [address] Phone Care Team Providers Care Feeder Loader Name Role Phone Dandre Chavez MD Primary Care Provider [phone] Encounter Details Date Type Department Care Team (Late st Contact Info) Description 02/09/2022 Documentation Only [facility], [address] [place] [address] Faina Villegas PA Social History Tobacco Use [...] on filedocumented in this encounter Care Teams Feeder Loader Relationship Specialty Start Date End Date Dandre Chavez MD [address] [place] [address], [address] [place], [place] PCP - General 07/07/19 documented as of this encounter
--- OUTSIDE RECORDS SUMMARY | 2025-06-04 05:42 | XMS_ITS | Encounter Summary ---
Author Organization [facility] Address [address] [place] [address] Phone Care Team Providers Care Food Service Manager Name Role Phone Dandre Chavez MD Primary Care Provider [phone] Miguel Enciso MD Unavailable [phone] Encounter Details Date Type Department Care Team (Late st Contact Info) Description 12/21/2022 Procedure Pass Echo Lab [address] [id number] Social History Tobacco Use Types Packs/Day Years [...] filedocumented in this encounter Care Teams Food Service Manager Relationship Specialty Start Date End Date Dandre Chavez MD [address] [place] [phone] PCP - General 09/05/17 Miguel Enciso MD [address] [facility], [address] [place], [place] [phone] Cardiology 05/28/24 documented as of this encounter Additional Source Comments The information contained in this document represents components of the legal health record. It is not the complete legal health record.[facility]
--- OUTSIDE RECORDS SUMMARY | 2025-06-04 05:42 | XMS_ITS | Encounter Summary ---
Author Organization [facility] Address [address] [place] [address] Phone Care Team Providers Care Sales Representative Graphic Art Name Role Phone Dandre Chavez MD Primary Care Provider [phone] Miguel Enciso MD Unavailable [phone] Encounter Details Date Type Department Care Team (Late st Contact Info) Description 12/20/2022 Procedure Pass Non-Invasive Cardiology [address] [place], [place] [phone] Social History Tobacco Use Types Packs/Day Years [...] filedocumented in this encounter Care Teams Sales Representative Graphic Art Relationship Specialty Start Date End Date Dandre Chavez MD [address] [place] [id number] PCP - General 09/05/17 Miguel Enciso MD [address] [place] [address], [address] [place], [place] [phone] Cardiology 05/28/24 documented as of this encounter Additional Source Comments The information contained in this document represents components of the legal health record. It is not the complete legal health record.[facility]
--- OUTSIDE RECORDS SUMMARY | 2025-06-04 05:42 | XMS_ITS | Encounter Summary ---
Author Organization [facility] [place], Address [address] [place] [address] Phone Care Team Providers Care Special Education Inclusion Teacher Name Role Phone Dandre Chavez MD Primary Care Provider [phone] Encounter Details Date Type Department Care Team (Late st Contact Info) Description 02/08/2022 Documentation Only [facility], [address] [place] [address] Faina Villegas PA Social History Tobacco Use [...] on filedocumented in this encounter Care Teams Special Education Inclusion Teacher Relationship Specialty Start Date End Date Dandre Chavez MD [address] [place] [address], [address] [place], [place] PCP - General 07/07/19 documented as of this encounter
--- OUTSIDE RECORDS SUMMARY | 2025-06-04 05:42 | XMS_ITS | Encounter Summary ---
Author Organization [facility] Address [address] [place], [place] [address] [place] [address] Phone Care Team Providers Care Assistant Manager Trainee Name Role Phone Dandre Chavez MD Primary Care Provider [phone] Miguel Enciso MD Unavailable [phone] Encounter Details Date Type Department Care Team (Late st Contact Info) Description 07/01/2024 Procedure Pass [facility] Cardiology Referral Images [address] [facility] [address] [place] [address] Social History Tobacco Use Types Packs/Day Years [...] on filedocumented in this encounter Care Teams Assistant Manager Trainee Relationship Specialty Start Date End Date Dandre Chavez MD [address] [place] [address] PCP - General 09/05/17 Miguel Enciso MD [address] [place] [phone] [email or web address] Cardiology 05/28/24 documented as of this encounter Additional Source Comments The information contained in this document represents components of the legal health record. It is not the complete legal health record.[facility]
--- OUTSIDE RECORDS SUMMARY | 2025-06-04 05:42 | XMS_ITS | Encounter Summary ---
Author Organization [facility], Address [address] [place] [address] Phone Care Team Providers Care Bill Collector Name Role Phone Dandre Chavez MD Primary Care Provider [phone] Encounter Details Date Type Department Care Team (Late st Contact Info) Description 10/10/2021 Documentation Only [facility], [address] [place] [address] Faina Villegas PA Social History Tobacco Use [...] on filedocumented in this encounter Care Teams Bill Collector Relationship Specialty Start Date End Date Dandre Chavez MD [address] [place] [address], [address] [place], [place] PCP - General 07/07/19 documented as of this encounter
--- OUTSIDE RECORDS SUMMARY | 2025-06-04 05:42 | XMS_ITS | Encounter Summary ---
Author Organization [facility], Address [address] [place] [address] Phone Care Team Providers Care Embedded Case Manager Name Role Phone Dandre Chavez MD Primary Care Provider [phone] Encounter Details Date Type Department Care Team (Late st Contact Info) Description 09/25/2021 Documentation Only [facility], [address] [place] [address] Faina Villegas PA Social History Tobacco Use [...] on filedocumented in this encounter Care Teams Embedded Case Manager Relationship Specialty Start Date End Date Dandre Chavez MD [address] [place] [address], [address] [place], [place] PCP - General 07/07/19 documented as of this encounter
--- OUTSIDE RECORDS SUMMARY | 2025-06-04 05:42 | XMS_ITS | Encounter Summary ---
Author Organization [facility], Address [address] [place] [address] Phone Care Team Providers Care Extension Service Supervisor Name Role Phone Dandre Chavez MD Primary Care Provider [phone] Encounter Details Date Type Department Care Team (Late st Contact Info) Description 10/12/2021 Documentation Only [facility], [address] [place] [address] Faina Villegas PA Social History Tobacco Use [...] on filedocumented in this encounter Care Teams Extension Service Supervisor Relationship Specialty Start Date End Date Dandre Chavez MD [address] [place] [address], [address] [place], [place] PCP - General 07/07/19 documented as of this encounter
--- OUTSIDE RECORDS SUMMARY | 2025-06-04 05:42 | XMS_ITS | Encounter Summary ---
Author Organization [facility] Address [address] [place], [place] [address] [place] [address] Phone Care Team Providers Care Employee'S Representative Name Role Phone Dandre Chavez MD Primary Care Provider [phone] Miguel Enciso MD Unavailable [phone] Encounter Details Date Type Department Care Team (Late st Contact Info) Description 07/01/2024 Procedure Pass [facility] Cardiology Referral Images [address] [facility] [address] [place] [address] Social History Tobacco Use Types Packs/Day Years [...] on filedocumented in this encounter Care Teams Employee'S Representative Relationship Specialty Start Date End Date Dandre Chavez MD [address] [place] [address] PCP - General 09/05/17 Miguel Enciso MD [address] [place] [address] [email or web address] Cardiology 05/28/24 documented as of this encounter Additional Source Comments The information contained in this document represents components of the legal health record. It is not the complete legal health record.[facility]
--- OUTSIDE RECORDS SUMMARY | 2025-06-04 05:42 | XMS_ITS | Encounter Summary ---
Author Organization [facility], Address [address] [place] [address] Phone Care Team Providers Care Cherry Cutter Name Role Phone Dandre Chavez MD Primary Care Provider [phone] Encounter Details Date Type Department Care Team (Late st Contact Info) Description 02/09/2022 Documentation Only [facility], [address] [place] [address] Faina Villegas PA Social History Tobacco Use [...] on filedocumented in this encounter Care Teams Cherry Cutter Relationship Specialty Start Date End Date Dandre Chavez MD [address] [place] [address], [address] [place], [place] PCP - General 07/07/19 documented as of this encounter
--- OUTSIDE RECORDS SUMMARY | 2025-06-04 05:43 | XMS_ITS | Encounter Summary ---
Author Organization [facility] Address [address] [place] [address] Phone Care Team Providers Care Returns Clerk Name Role Phone Dandre Chavez MD Primary Care Provider [phone] Miguel Enciso MD Unavailable [phone] Encounter Details Date Type Department Care Team (Late st Contact Info) Description 04/03/2022 Procedure Pass [facility] [address] [place] [address] Social History Tobacco Use Types Packs/Day Years [...] on filedocumented in this encounter Care Teams Returns Clerk Relationship Specialty Start Date End Date Dandre Chavez MD [address] [id number] PCP - General 09/05/17 Miguel Enciso MD [address] [place] [address], [address] [place], [place] [phone] Cardiology 05/28/24 documented as of this encounter Additional Source Comments The information contained in this document represents components of the legal health record. It is not the complete legal health record.[facility]
--- OUTSIDE RECORDS SUMMARY | 2025-06-04 05:43 | XMS_ITS | Encounter Summary ---
Author Organization [facility] Address [address] [place] [address] Phone Care Team Providers Care Home Paraprofessional Name Role Phone Dandre Chavez MD Primary Care Provider [phone] Miguel Enciso MD Unavailable [phone] Encounter Details Date Type Department Care Team (Late st Contact Info) Description 08/18/2021 Procedure Pass Echo [facility] [address] [phone] Social History Tobacco Use Types Packs/Day Years [...] filedocumented in this encounter Care Teams Home Paraprofessional Relationship Specialty Start Date End Date Dandre Chavez MD [address] [place] [address] [id number] PCP - General 09/05/17 Miguel Enciso MD [address] [place] [address], [address] [place], [place] [phone] Cardiology 05/28/24 documented as of this encounter Additional Source Comments The information contained in this document represents components of the legal health record. It is not the complete legal health record.[facility]
--- OUTSIDE RECORDS SUMMARY | 2025-06-04 05:43 | XMS_ITS | Encounter Summary ---
Author Organization [facility] Address [address] [place] [address] Phone Care Team Providers Care Tack Cutter Name Role Phone Dandre Chavez MD Primary Care Provider [phone] Miguel Enciso MD Unavailable [phone] Encounter Details Date Type Department Care Team (Late st Contact Info) Description 09/18/2019 Ancillary Orders [facility] [address] 3rd Floor [place], [place] [phone] Miguel Enciso MD [address] [place] [address], [address] [place], [place] [phone] [email or web address] PVD (peripheral vascular disease) Social [...] disease documented in this encounter Care Teams Tack Cutter Relationship Specialty Start Date End Date Dandre Chavez MD [address] [place] [address] PCP - General 09/05/17 Miguel Enciso MD [address] [place] [address] 301 [place] [address] Cardiology 05/28/24 documented as of this encounter Additional Source Comments The information contained in this document represents components of the legal health record. It is not the complete legal health record.[facility]
[2025-06-04 05:59] LABS: INTERNATIONAL NORM RATIO 1.2 (0.9-1.1); Prothrombin Time 14.0 SEC (10.9-12.4)
== END 2025-06-04 05:31 | disposition home or self-care (01) ==
LOC: HO.MMNH2L 05:30
PROVIDERS: Visit Provider Physician Assistant Medical
DX: Z51.81 Encounter for therapeutic drug level monitoring (principal); D64.9 Anemia, unspecified
CPT/HCPCS: 36415; 85610

== ENCOUNTER 2025-06-07 06:43 | Outpatient (REF) | payer MEDICARE, SELFPAY ==
--- OUTSIDE RECORDS SUMMARY | 2018-12-31 05:05 | XMS_ITS | Continuity of Care Document ---
Author Organization [facility] Address [address] [address] Phone Care Team Providers Care Furnace Puncher Name Role Phone Brodie Hinds DO Unavailable Unavailable Advance Directives Directive Yes / No Effective Date File Name No Information Encounters Encounter Description Practice Location Reason(s) For Visit Diagnoses Date Provider [facility], [address], [id number], [place] tel:[phone] [address] [place] [address] No Information 2018 Guzman Calloway. [address] [place] [address], [id number], [place]. tel:[phone] Family History Family Member Type Diagnosis Age [...]
[2025-06-07 06:35] LABS: MANUAL DIFF FLAG NO
[2025-06-07 06:36] LABS: Hematocrit 29.1 % (37.0-47.0); Hemoglobin 8.3 g/dl (12.0-16.0); Imm Gran Abs Auto 0.01 X10*3/uL (0.00-0.03); Imm Gran Pct Auto 0.2 % (0.0-0.4); Lymphocytes Absolute Auto 0.4 X10*3/uL (1.2-4.9); Mean Corpuscular HGB Conc 28.5 g/dl (31.0-35.0); Mean Corpuscular Hemoglobin 27.2 pg (27.0-33.0); Mean Corpuscular Volume 95.4 fL (80.0-98.0); NRBC Abs Auto 0.000 X10*3/uL (0.0-0.012); NRBC Pct Auto 0.0 /100WBC (0.0-0.2); Platelet Count 173 X10*3/uL (160-400); Red Blood Count 3.05 X10*6/uL (4.20-5.50); White Blood Count 6.0 X10*3/uL (4.8-10.8)
--- OUTSIDE RECORDS SUMMARY | 2025-06-07 06:56 | XMS_ITS | Encounter Summary ---
Author Organization [facility] Address [address] [place] [address] Phone Care Team Providers Care Aircraft Dispatcher Name Role Phone Dandre Chavez MD Primary Care Provider [phone] Miguel Enciso MD Unavailable [phone] Encounter Details Date Type Department Care Team (Late st Contact Info) Description 08/18/2021 Procedure Pass Echo Lab [address] [phone] Social History Tobacco Use Types Packs/Day Years [...] on filedocumented in this encounter Care Teams Aircraft Dispatcher Relationship Specialty Start Date End Date Dandre Chavez MD [address] [place] [address] [id number] PCP - General 09/05/17 Miguel Enciso MD [address] [place] [address], [address] [place], [place] [phone] Cardiology 05/28/24 documented as of this encounter Additional Source Comments The information contained in this document represents components of the legal health record. It is not the complete legal health record.[facility]
--- OUTSIDE RECORDS SUMMARY | 2025-06-07 06:56 | XMS_ITS | Encounter Summary ---
Author Organization [facility] Address [address] [place] [address] Care Team Providers Care Lead Sales Consultant Name Role Phone Amina Burciaga MD Primary Care Provider [phone] Encounter Details Date Type Department Care Team (Latest Contact Info) Description 09/23/2024 Lab Requisition [facility] - Main Lab [address] [facility] [place] [address] Amina Burciaga MD [address] [place] [address] Type 2 diabetes mellitus with [...] [facility] [address] [place] [address], * (ABNORMAL) Comprehensive metabolic panel (09/23/2024 8:20 [...] [facility] [address] [place] [address], * (ABNORMAL) Complete blood count (09/23/2024 8:20 AM EST) [facility] WBC 6.2 4.8 - 10.8 [...] [facility] [address] [place] [address], documented in this encounter Visit Diagnoses Diagnosis Type 2 diabetes mellitus with unspecified complications (CMS/HCC V24, CMS/HCC V28) Unspecified systolic (congestive) heart failure (CMS/HCC V24, CMS/HCC V28) documented in this encounter Care Teams Lead Sales Consultant Relationship Specialty Start Date End Date Amina Burciaga MD [address] [place] [address] PCP - General Hospitalist Medicine 09/11/24 documented as of this encounter
--- OUTSIDE RECORDS SUMMARY | 2025-06-07 06:56 | XMS_ITS | Encounter Summary ---
Author Organization [facility], Address [address] [place] [address] Phone Care Team Providers Care Stone Mill Operator Name Role Phone Dandre Chavez MD Primary Care Provider Encounter Details Date Type Department Care Team (Late st Contact Info) Description 10/12/2021 Documentation Only [facility], [address] [place] [address] Faina Villegas PA Social History Tobacco Use [...] on filedocumented in this encounter Care Teams Stone Mill Operator Relationship Specialty Start Date End Date Dandre Chavez MD [address] [place] [address], [address] [place], [place] PCP - General 07/07/19 documented as of this encounter
--- OUTSIDE RECORDS SUMMARY | 2025-06-07 06:56 | XMS_ITS | Encounter Summary ---
Author Organization [facility], Address [address] [place] [address] Phone Care Team Providers Care Brazer Assembler Name Role Phone Danrde Chavez MD Primary Care Provider [phone] Encounter Details Date Type Department Care Team (Late st Contact Info) Description 02/08/2022 Documentation Only [facility], [address] [place] [address] Faina Villegas PA Social History Tobacco Use [...] on filedocumented in this encounter Care Teams Brazer Assembler Relationship Specialty Start Date End Date Dandre Chavez MD [address] [place] [address], [address] [place], [place] PCP - General 07/07/19 documented as of this encounter
--- OUTSIDE RECORDS SUMMARY | 2025-06-07 06:56 | XMS_ITS | Clinical Summary ---
Author Organization [facility] Address [address] [place] [address] Phone Care Team Providers Care Greeter Guest Services Name Role Phone Dandre Chavez MD Primary Care Provider [phone] Miguel Enciso MD Unavailable [phone] Allergies Active Allergy Reactions Criticality Noted Date [...] Active ferrous sulfate 325 mg (65 mg point hope ira iron) EC tablet Take 325 mg by [...] focus on healthy food choices. Atherosclerosis of [place] co ronary artery of [place] heart with angina pectoris 10/28/2018 Assessment & [...] (04/14/2020 10:40 PM EDT): History of inferior [place] in 2013 with a stent to her [...] LAD. She presented with a non-ST relation [place] September 2018 and had a new culprit [...] will need to have this completed at [facility]. She is aware that this is [...] this topic Medical Devices Implanted Type Area Division Head Device Identifier Shelf Expiration Date Model / Serial / Lot Sensor Pulmonary Artery Delivery System Cardiomems - [id number] Implanted:Qt y: 1 on 04/03/2022 by Miguel Enciso MD at [facility] Implantable Monitor Left: Arterial [employer] [id number] 12/15/2023 CM PATIENT SYSTEM / [id number] / Description:Pulmonary artery Procedures Procedure Name Priority Date/Time Associated Diagnosis Comments COMPREHENSIVE METABOLIC PANEL Routine 04/18/2022 2:39 PM EDT Atherosclerosis of [place] coronary artery of [place] heart with angina pectoris Essential hypertension Ischemic cardiomyopathy PAD (peripheral artery disease) from Last 3 Months or Most Recently Relevant to Health Maintenance Results * (ABNORMAL) Comprehensive metabolic panel (04/18/2022 2:39 PM EDT) SODIUM 143 133 - 146 mmol/L [facility] POTASSIUM 4.5 3.3 - 5.1 mmol/L [facility] CHLORIDE 100 96 - 108 mmol/L [facility] CO2 34 21 - 35 mmol/L [facility] BUN 38(H) 6 - 19 mg/dL [facility] CREATININE 1.40 0.5 - 1.5 mg/dL [facility] GLUCOSE 163(H) 70 - 99 mg/dL [facility] ALBUMIN 4.0 3.9 - 4.8 g/dL [facility] TOTAL PROTEIN 7.5 6.5 - 8.0 g/dL [facility] CALCIUM 10.1 8.4 - 10.3 mg/dL [facility] ALKALINE PHOSPHATASE 94 39 - 117 U/L [facility] TOTAL BILIRUBIN 0.6 0.0 - 1.2 mg/dL [facility] AST 26 0 - 37 U/L [facility] ALT 12 0 - 40 U/L [facility] GLOBULIN 3.5 1 - 4.8 g/dL [facility] EGFR 39(L) >59 mL/min/1.7 3m2 [facility] Comment:Estimated glomerular filtration rate calculated using the CKD-EPI refit equation. ANION GAP 14 10 - 20 mmol/L [facility] Blood 04/18/2022 2:39 PM EDT 04/18/2022 2:42 PM EDT us Miguel Enciso MD LAB BLOOD ORDERABLES Final Result [facility] [address] [place] [address] from Last 3 Months or Most Recently Relevant to Health Maintenance Insurance MEDICARE PART A & B [place] MED[place] PREFERRED HMO REPLACEMENT [facility] [place] [id number] MEDICARE PART A & B [place] MED[place] PREFERRED HMO REPLACEMENT [facility] [place] [address] MEDICARE PART A & B Member Subscriber Plan / Payer (Ef fective 2012-Present) Name:Amina Zamora Member ID:[id number] Relation to Subscriber:Self Name:Amina Zamora Subscriber ID:[id number] Payer ID:[id number] Group ID:Not on file Type:Medicare Address: [employer] [address] [place] [phone] [facility] MEDICARE PREFERRED HMO REPLACEMENT MEDICARE PART [...] & B [place] MEDICARE PREFERRED HMO REPLACEMENT [facility] Care Teams Greeter Guest Services Relationship Specialty Start Date End Date Dandre Chavez MD [address] [place] [address] PCP - General 09/05/17 Miguel Enciso MD [address] [place] [address] [email or web address] Cardiology 05/28/24 Additional Source Comments The information contained in this document represents components of the legal health record. It is not the complete legal health record.[facility]
--- OUTSIDE RECORDS SUMMARY | 2025-06-07 06:56 | XMS_ITS | Encounter Summary ---
Author Organization [facility], Address [address] [place] [address] Phone Care Team Providers Care Seconds Handler Name Role Phone Dandre Chavez MD Primary Care Provider [phone] Encounter Details Date Type Department Care Team (Late st Contact Info) Description 12/31/2022 Documentation Only [facility], [address] [place] [address] Melissa Delgadillo [address] [place] [phone] Social History Tobacco Use Types Packs/Day Years [...] on filedocumented in this encounter Care Teams Seconds Handler Relationship Specialty Start Date End Date Dandre Chavez MD [address] [place] [address], [address] [place], [place] PCP - General 07/07/19 documented as of this encounter
--- OUTSIDE RECORDS SUMMARY | 2025-06-07 06:56 | XMS_ITS | Encounter Summary ---
Author Organization [facility], Address [address] [place] [address] Phone Care Team Providers Care Dressmaker Or Tailor Name Role Phone Dandre Chavez MD Primary Care Provider [phone] Encounter Details Date Type Department Care Team (Late st Contact Info) Description 09/07/2022 Documentation Only [facility], [address] [place] [address] Faina Villegas PA Social History Tobacco Use [...] on filedocumented in this encounter Care Teams Dressmaker Or Tailor Relationship Specialty Start Date End Date Dandre Chavez MD [address] [place] [address], [address] [place], [place] PCP - General 07/07/19 documented as of this encounter
--- OUTSIDE RECORDS SUMMARY | 2025-06-07 06:56 | XMS_ITS | Encounter Summary ---
Author Organization [facility] Address [address] [place] [address] Care Team Providers Care Software Installation Engineer Name Role Phone Amina Burciaga MD Primary Care Provider [phone] Encounter Details Date Type Department Care Team (Latest Contact Info) Description 09/11/2024 Lab Requisition [facility] - Main Lab [address] [facility] [place] [address] Amina Burciaga MD [address] [place] [address] Other penitentiary (current) drug therapy; Type 2 diabetes mellitus [...] COUNT Routine 09/11/2024 9:47 AM EST Other penitentiary (current) drug therapy Type 2 diabetes mellitus without complications (CMS/HCC) Heart failure, unspecified (CMS/HCC) MAGNESIUM Routine 09/11/2024 9:47 AM EST Other penitentiary (current) drug therapy Type 2 diabetes mellitus without complications (CMS/HCC) Heart failure, unspecified (CMS/HCC) BASIC METABOLIC PANEL Routine 09/11/2024 9:47 AM EST Other long haul truck driver (current) drug therapy Type 2 diabetes mellitus without complications (CMS/HCC) Heart failure, unspecified (CMS/HCC) documented in this encounter Results * Magnesium (09/11/2024 9:47 AM EST) [facility] Magnesium 2.1 1.9 - 2.6 mg/dL LAB CHEMISTRY METHOD 09/11/2024 12:45 PM [facility] Blood Venous blood specimen / Unknown Venipuncture / Unknown 09/11/2024 9:47 AM EST 09/11/2024 11:29 AM EST Amina Burciaga MD LAB BLOOD ORDERABLES Final Resul t [facility] [address] [place] [address], * (ABNORMAL) Basic metabolic panel (09/11/2024 9:47 AM EST) [facility] Sodium 137 133 - 145 mmol/L LAB CHEMISTRY METHOD 09/11/2024 12:54 PM [facility] Potassium 3.9 3.5 - 5.5 mmol/L LAB CHEMISTRY METHOD 09/11/2024 12:54 PM [facility] Chloride 103 96 - 110 mmol/L LAB CHEMISTRY METHOD 09/11/2024 12:54 PM [facility] CO2 26 21 - 32 mmol/L LAB CHEMISTRY METHOD 09/11/2024 12:54 PM [facility] Anion Gap 8 3 - 11 LAB CHEMISTRY METHOD 09/11/2024 12:54 PM [facility] Glucose 112(H) 70 - 100 mg/dL LAB CHEMISTRY METHOD 09/11/2024 12:54 PM [facility] BUN 50(H) 5 - 25 mg/dL LAB CHEMISTRY METHOD 09/11/2024 12:54 PM [facility] Creatinine 2.73(H) 0.50 - 1.10 mg/dL LAB CHEMISTRY METHOD 09/11/2024 12:54 PM [facility] eGFR 17(L) >=60 mL/min/1. 73m2 LAB CHEMISTRY METHOD 09/11/2024 12:54 PM [facility] Comment:Calculation based on the Chronic Kidney Disease Epidemiology Collaboration (CKD-EPI) equation refit without adjustment for race. BUN/Creatinine Ratio 18.3 LAB CHEMISTRY METHOD 09/11/2024 12:54 PM [facility] Calcium 8.6 8.5 - 10.5 mg/dL LAB CHEMISTRY METHOD 09/11/2024 12:54 PM [facility] Blood Venous blood specimen / Unknown Venipuncture / Unknown 09/11/2024 9:47 AM EST 09/11/2024 11:29 AM EST Amina Burciaga MD LAB BLOOD ORDERABLES Final Resul t [facility] [address] [place] [address], * (ABNORMAL) Complete blood count (09/11/2024 9:47 AM EST) WBC 6.9 4.8 - 10.8 K/mcL LAB HEMETOLOGY METHOD 09/11/2024 11:47 AM [facility] RBC 3.10(L) 3.80 - 4.80 M/mcL LAB HEMETOLOGY METHOD 09/11/2024 11:47 AM [facility] Hemoglobin 9.0(L) 11.5 - 16.0 g/dL LAB HEMETOLOGY METHOD 09/11/2024 11:47 AM [facility] Hematocrit 31.6(L) 35.0 - 47.0 % LAB HEMETOLOGY METHOD 09/11/2024 11:47 AM [facility] MCV 102.6(H) 79.0 - 98.0 FL LAB HEMETOLOGY METHOD 09/11/2024 11:47 AM EST [facility] MCH 29.2 27.0 - 32.0 pcg LAB HEMETOLOGY METHOD 09/11/2024 11:47 AM [facility] MCHC 28.5(L) 32.0 - 37.0 g/dL LAB HEMETOLOGY METHOD 09/11/2024 11:47 AM EST [facility] RDW 20.6(H) 11.0 - 15.0 % LAB HEMETOLOGY METHOD 09/11/2024 11:47 AM EST [facility] Platelets 180 130 - 400 K/mcL LAB HEMETOLOGY METHOD 09/11/2024 11:47 AM [facility] MPV 9.9 7.0 - 11.0 FL LAB HEMETOLOGY METHOD 09/11/2024 11:47 AM EST [facility] NRBC 0.0 <1.0 % LAB HEMETOLOGY METHOD 09/11/2024 11:47 AM [facility] NRBC Absolute 0.00 <0.10 K/mcL LAB HEMETOLOGY METHOD 09/11/2024 11:47 AM [facility] Blood Venous blood specimen / Unknown Venipuncture / Unknown 09/11/2024 9:47 AM EST 09/11/2024 11:29 AM EST us Amina Burciaga MD LAB BLOOD ORDERABLES Final Resul t [facility] [address] [place] [address], documented in this encounter Visit Diagnoses Diagnosis Other penitentiary (current) drug therapy Type 2 diabetes mellitus without complications (CMS/HCC V24, CMS/HCC V28) Heart failure, unspecified (CMS/HCC V24, CMS/HCC V28) Heart failure, unspecified documented in this encounter Care Teams Software Installation Engineer Relationship Specialty Start Date End Date Amina Burciaga MD [address] [place] [address] PCP - General Hospitalist Medicine 09/11/24 documented as of this encounter
--- OUTSIDE RECORDS SUMMARY | 2025-06-07 06:56 | XMS_ITS | Encounter Summary ---
Author Organization [facility] Address [address] [place] [address] Care Team Providers Care All Terrain Vehicle Racer Name Role Phone Amina Burciaga MD Primary Care Provider [phone] Encounter Details Date Type Department Care Team (Late st Contact Info) Description 09/30/2024 Lab Requisition [facility] - Main Lab [address] [facility] [place] [address] Isaac Stark MD [address] [place] [address] [place] [address] Heart failure, unspecified [...] (ABNORMAL) Vitamin B12 (09/30/2024 9:57 AM EST) [facility] Vitamin B-12 1,028(H) 250 - 900 pcg/mL LAB CHEMISTRY METHOD 09/30/2024 1:04 PM [facility] Blood Venous blood specimen / Unknown Venipuncture / Unknown 09/30/2024 9:57 AM EST 09/30/2024 10:50 AM EST us Isaac Stark MD LAB BLOOD ORDERABLES Final Resu lt [facility] [address] [place] [address], [place] [phone] * (ABNORMAL) Comprehensive metabolic panel (09/30/2024 9:57 AM EST) [facility] Sodium 138 133 - 145 mmol/L LAB CHEMISTRY METHOD 09/30/2024 1:04 PM [facility] Potassium 3.7 3.5 - 5.5 mmol/L LAB CHEMISTRY METHOD 09/30/2024 1:04 PM [facility] Chloride 100 96 - 110 mmol/L LAB CHEMISTRY METHOD 09/30/2024 1:04 PM [facility] CO2 31 21 - 32 mmol/L LAB CHEMISTRY METHOD 09/30/2024 1:04 PM [facility] Anion Gap 7 3 - 11 LAB CHEMISTRY METHOD 09/30/2024 1:04 PM [facility] Glucose 228(H) 70 - 100 mg/dL LAB CHEMISTRY METHOD 09/30/2024 1:04 PM [facility] BUN 90(H) 5 - 25 mg/dL LAB CHEMISTRY METHOD 09/30/2024 1:04 PM [facility] Creatinine 2.19(H) 0.50 - 1.10 mg/dL LAB CHEMISTRY METHOD 09/30/2024 1:04 PM [facility] eGFR 23(L) >=60 mL/min/1. 73m2 LAB CHEMISTRY METHOD 09/30/2024 1:04 PM [facility] Comment:Calculation based on the Chronic Kidney Disease Epidemiology Collaboration (CKD-EPI) equation refit without adjustment for race. BUN/Creatinine Ratio 41.1 LAB CHEMISTRY METHOD 09/30/2024 1:04 PM [facility] Calcium 8.9 8.5 - 10.5 mg/dL LAB CHEMISTRY METHOD 09/30/2024 1:04 PM [facility] AST (SGOT) 22 10 - 42 unit/L LAB CHEMISTRY METHOD 09/30/2024 1:04 PM [facility] ALT (SGPT) 28 10 - 60 unit/L LAB CHEMISTRY METHOD 09/30/2024 1:04 PM [facility] Alkaline Phosphatase 47 42 - 121 unit/L LAB CHEMISTRY METHOD 09/30/2024 1:04 PM [facility] Total Protein 6.2 6.0 - 8.0 g/dL LAB CHEMISTRY METHOD 09/30/2024 1:04 PM [facility] Albumin 2.7(L) 3.2 - 5.0 g/dL LAB CHEMISTRY METHOD 09/30/2024 1:04 PM [facility] Total Bilirubin 0.6 0.0 - 1.4 mg/dL LAB CHEMISTRY METHOD 09/30/2024 1:04 PM [facility] Blood Venous blood specimen / Unknown Venipuncture / Unknown 09/30/2024 9:57 AM EST 09/30/2024 10:50 AM EST us Isaac Stark MD LAB BLOOD ORDERABLES Final Resu lt [facility] [address] [place] [address], * (ABNORMAL) Complete blood count (09/30/2024 9:57 AM EST) [facility] WBC 5.9 4.8 - 10.8 K/mcL LAB HEMETOLOGY METHOD 09/30/2024 12:25 PM [facility] RBC 3.80 3.80 - 4.80 M/mcL LAB HEMETOLOGY METHOD 09/30/2024 12:25 PM [facility] Hemoglobin 11.2(L) 11.5 - 16.0 g/dL LAB HEMETOLOGY METHOD 09/30/2024 12:25 PM [facility] Hematocrit 37.7 35.0 - 47.0 % LAB HEMETOLOGY METHOD 09/30/2024 12:25 PM [facility] MCV 98.2(H) 79.0 - 98.0 FL LAB HEMETOLOGY METHOD 09/30/2024 12:25 PM [facility] MCH 29.2 27.0 - 32.0 pcg LAB HEMETOLOGY METHOD 09/30/2024 12:25 PM [facility] MCHC 29.7(L) 32.0 - 37.0 g/dL LAB HEMETOLOGY METHOD 09/30/2024 12:25 PM [facility] RDW 17.7(H) 11.0 - 15.0 % LAB HEMETOLOGY METHOD 09/30/2024 12:25 PM [facility] Platelets 183 130 - 400 K/mcL LAB HEMETOLOGY METHOD 09/30/2024 12:25 PM [facility] MPV 11.7(H) 7.0 - 11.0 FL LAB HEMETOLOGY METHOD 09/30/2024 12:25 PM [facility] NRBC 0.0 <1.0 % LAB HEMETOLOGY METHOD 09/30/2024 12:25 PM [facility] NRBC Absolute 0.00 <0.10 K/mcL LAB HEMETOLOGY METHOD 09/30/2024 12:25 PM EST [facility] Blood Venous blood specimen / Unknown Venipuncture / Unknown 09/30/2024 9:57 AM EST 09/30/2024 10:50 AM EST us Isaac Stark MD LAB BLOOD ORDERABLES Final Resu lt Performing Organization Address City/[facility]/ZIP Co de Phone Number [facility] [address] [place] [address], [place] [phone] * Vitamin D 25 hydroxy (09/30/2024 9:57 AM EST) Vit D, 25-Hydroxy 54.9 30.0 - 80.0 ng/mL LAB CHEMISTRY METHOD 09/30/2024 12:48 PM EST [facility] Blood Venous blood specimen / Unknown Venipuncture / Unknown 09/30/2024 9:57 AM EST 09/30/2024 10:50 AM EST us Isaac Stark MD LAB BLOOD ORDERABLES Final Resu lt Performing Organization Address [facility]/ZIP Co de Phone Number [facility] [address] [place] [address], [place] [phone] documented in this encounter Visit Diagnoses Diagnosis Heart failure, unspecified (CMS/HCC V24, CMS/HCC V28) Heart failure, unspecified Vitamin D deficiency, unspecified documented in this encounter Care Teams All Terrain Vehicle Racer Relationship Specialty Start Date End Date Amina Burciaga MD [address] [place] [phone] PCP - General Hospitalist Medicine 09/11/24 documented as of this encounter
--- OUTSIDE RECORDS SUMMARY | 2025-06-07 06:56 | XMS_ITS | Encounter Summary ---
Author Organization [facility], Address [address] [place] [address] Phone Care Team Providers Care Dough Puncher Name Role Phone Dandre Chavez MD Primary Care Provider [phone] Encounter Details Date Type Department Care Team (Late st Contact Info) Description 01/08/2025 Documentation Only [facility], [address] [place] [address] Radha Chatterjee [place] [address] [place] [phone] Social History Tobacco Use Types Packs/Day Years [...] on filedocumented in this encounter Care Teams Dough Puncher Relationship Specialty Start Date End Date Dandre Chavez MD [address] [place] [address], [address] [place], [place] PCP - General 07/07/19 documented as of this encounter
--- OUTSIDE RECORDS SUMMARY | 2025-06-07 06:56 | XMS_ITS | Encounter Summary ---
Author Organization [facility] Address [address] [place] [address] Care Team Providers Care Courseware Developer Name Role Phone Amina Burciaga MD Primary Care Provider [phone] Encounter Details Date Type Department Care Team (Late st Contact Info) Description 08/03/2024 Lab Requisition [facility] - Main Lab [address] [facility] [place] [address] Hortencia Mcclellan MD [address] [id number] Type 2 diabetes mellitus without complications (CMS/HCC [...] mmol/L LAB CHEMISTRY METHOD 08/04/2024 9:42 AM [facility] Potassium 3.6 3.5 - 5.5 mmol/L LAB CHEMISTRY METHOD 08/04/2024 9:42 AM [facility] Chloride 106 96 - 110 mmol/L LAB CHEMISTRY METHOD 08/04/2024 9:42 AM [facility] CO2 29 21 - 32 mmol/L LAB CHEMISTRY METHOD 08/04/2024 9:42 AM [facility] Anion Gap 8 3 - 11 LAB CHEMISTRY METHOD 08/04/2024 9:42 AM [facility] Glucose 64(L) 70 - 100 mg/dL LAB CHEMISTRY METHOD 08/04/2024 9:42 AM [facility] BUN 44(H) 5 - 25 mg/dL LAB CHEMISTRY METHOD 08/04/2024 9:42 AM [facility] Creatinine 2.43(H) 0.50 - 1.10 mg/dL LAB CHEMISTRY METHOD 08/04/2024 9:42 AM [facility] eGFR 20(L) >=60 mL/min/1. 73m2 LAB CHEMISTRY METHOD 08/04/2024 9:42 AM [facility] Comment:Calculation based on the Chronic Kidney Disease Epidemiology Collaboration (CKD-EPI) equation refit without adjustment for race. BUN/Creatinine Ratio 18.1 LAB CHEMISTRY METHOD 08/04/2024 9:42 AM [facility] Calcium 8.8 8.5 - 10.5 mg/dL LAB CHEMISTRY METHOD 08/04/2024 9:42 AM [facility] Blood Venous blood specimen / Unknown Venipuncture / Unknown 08/04/2024 6:38 AM EST 08/04/2024 8:24 AM EST us Hortencia Mcclellan MD LAB BLOOD ORDERABLES Fin al Result [facility] [address] [place] [address], * (ABNORMAL) Complete blood count (08/04/2024 6:38 AM EST) [facility] WBC 4.5(L) 4.8 - 10.8 K/mcL LAB HEMETOLOGY METHOD 08/04/2024 9:19 AM [facility] RBC 3.20(L) 3.80 - 4.80 M/mcL LAB HEMETOLOGY METHOD 08/04/2024 9:19 AM [facility] Hemoglobin 9.0(L) 11.5 - 16.0 g/dL LAB HEMETOLOGY METHOD 08/04/2024 9:19 AM [facility] Hematocrit 31.8(L) 35.0 - 47.0 % LAB HEMETOLOGY METHOD 08/04/2024 9:19 AM [facility] MCV 100.0(H) 79.0 - 98.0 FL LAB HEMETOLOGY METHOD 08/04/2024 9:19 AM [facility] MCH 28.3 27.0 - 32.0 pcg LAB HEMETOLOGY METHOD 08/04/2024 9:19 AM [facility] MCHC 28.3(L) 32.0 - 37.0 g/dL LAB HEMETOLOGY METHOD 08/04/2024 9:19 AM [facility] RDW 18.9(H) 11.0 - 15.0 % LAB HEMETOLOGY METHOD 08/04/2024 9:19 AM [facility] Platelets 188 130 - 400 K/mcL LAB HEMETOLOGY METHOD 08/04/2024 9:19 AM [facility] MPV 10.6 7.0 - 11.0 FL LAB HEMETOLOGY METHOD 08/04/2024 9:19 AM [facility] NRBC 0.0 <1.0 % LAB HEMETOLOGY METHOD 08/04/2024 9:19 AM EST [facility] NRBC Absolute 0.00 <0.10 K/mcL LAB HEMETOLOGY METHOD 08/04/2024 9:19 AM EST [facility] Blood Venous blood specimen / Unknown Venipuncture / Unknown 08/04/2024 6:38 AM EST 08/04/2024 8:24 AM EST us Hortencia Mcclellan MD LAB BLOOD ORDERABLES Fin al Result [facility] [address] [place] [address], documented in this encounter Visit Diagnoses Diagnosis Type 2 diabetes mellitus without complications (CMS/HCC V24, CMS/HCC V28) Heart failure, unspecified (CMS/HCC V24, CMS/HCC V28) Heart failure, unspecified documented in this encounter Care Teams Courseware Developer Relationship Specialty Start Date End Date Amina Burciaga MD [address] [place] [address] PCP - General Hospitalist Medicine 09/11/24 documented as of this encounter
--- OUTSIDE RECORDS SUMMARY | 2025-06-07 06:56 | XMS_ITS | Encounter Summary ---
Author Organization [facility] Address [address] [place] [address] Care Team Providers Care And Taxi Instructor Bus Trolley Name Role Phone Amina Burciaga MD Primary Care Provider Encounter Details Date Type Department Care Team (Late st Contact Info) Description 07/23/2024 Lab Requisition [facility] - Main Lab [address] [place] [address] Hortencia Mcclellan MD [address] [phone] Chronic kidney disease, unspecified; Type 2 diabetes [...] LAB CHEMISTRY METHOD 07/23/2024 9:13 AM EST [facility] Potassium 3.8 3.5 - 5.5 mmol/L LAB CHEMISTRY METHOD 07/23/2024 9:13 AM EST [facility] Chloride 111(H) 96 - [...] al Result [facility] [address] [place] [address], documented in this encounter Visit Diagnoses Diagnosis Chronic kidney disease, unspecified Type 2 diabetes mellitus without complications (CMS/HCC V24, CMS/HCC V28) documented in this encounter Care Teams And Taxi Instructor Bus Trolley Relationship Specialty Start Date End Date Amina Burciaga MD [address] [place] [address] PCP - General Hospitalist Medicine 09/11/24 documented as of this encounter
--- OUTSIDE RECORDS SUMMARY | 2025-06-07 06:56 | XMS_ITS | Encounter Summary ---
Author Organization [facility], Address [address] [place] [address] Phone Care Team Providers Care Tappet Adjuster Name Role Phone Dandre Chavez MD Primary Care Provider [phone] Encounter Details Date Type Department Care Team (Late st Contact Info) Description 12/31/2022 Documentation Only [facility], [address] [place] [address] Melissa Delgadillo [address] [place] [phone] Social History Tobacco Use Types Packs/Day Years [...] on filedocumented in this encounter Care Teams Tappet Adjuster Relationship Specialty Start Date End Date Dandre Chavez MD [address] [place] [address], [address] [place], [place] PCP - General 07/07/19 documented as of this encounter
--- OUTSIDE RECORDS SUMMARY | 2025-06-07 06:56 | XMS_ITS | Encounter Summary ---
Author Organization [facility], Address [address] [place] [address] Phone Care Team Providers Care Screen Printer Name Role Phone Dandre Chavez MD Primary Care Provider [phone] Encounter Details Date Type Department Care Team (Late st Contact Info) Description 10/30/2022 Documentation Only [facility], [address] [place] [address] Melissa Delgadillo [address] [place] [phone] Social History Tobacco Use Types Packs/Day Years [...] filedocumented in this encounter Care Teams Screen Printer Relationship Specialty Start Date End Date Dandre Chavez MD [address] [place] [address], [address] [place], [place] PCP - General 07/07/19 documented as of this encounter
--- OUTSIDE RECORDS SUMMARY | 2025-06-07 06:56 | XMS_ITS | Encounter Summary ---
Author Organization [facility] Address [address] [place], [place] [address] [place] [address] Phone Care Team Providers Care Drain Cleaner Name Role Phone Dandre Chavez MD Primary Care Provider [phone] Miguel Enciso MD Unavailable [phone] Encounter Details Date Type Department Care Team (Late st Contact Info) Description 07/01/2024 Procedure Pass [facility] Cardiology Referral Images [address] [facility] [address] [place] [address] Social History Tobacco Use Types Packs/Day Years [...] on filedocumented in this encounter Care Teams Drain Cleaner Relationship Specialty Start Date End Date Dandre Chavez MD [address] [place] [address] PCP - General 09/05/17 Miguel Enciso MD [address] [place] [phone] [email or web address] Cardiology 05/28/24 documented as of this encounter Additional Source Comments The information contained in this document represents components of the legal health record. It is not the complete legal health record.[facility]
--- OUTSIDE RECORDS SUMMARY | 2025-06-07 06:56 | XMS_ITS | Encounter Summary ---
Author Organization [facility], Address [address] [place] [address] Phone Care Team Providers Care Corsets Salesperson Name Role Phone Dandre Chavez MD Primary Care Provider [phone] Encounter Details Date Type Department Care Team (Late st Contact Info) Description 08/06/2023 Documentation Only [facility], [address] [place] [address] Desi Rodriguez Social History Tobacco Use Types [...] on filedocumented in this encounter Care Teams Corsets Salesperson Relationship Specialty Start Date End Date Dandre Chavez MD [address] [place] [address], [address] [place], [place] PCP - General 07/07/19 documented as of this encounter
--- OUTSIDE RECORDS SUMMARY | 2025-06-07 06:56 | XMS_ITS | Encounter Summary ---
Author Organization [facility], Address [address] [place] [address] Phone Care Team Providers Care Personal Carer Name Role Phone Dandre Chavez MD Primary Care Provider [phone] Encounter Details Date Type Department Care Team (Late st Contact Info) Description 02/09/2022 Documentation Only [facility], [address] [place] [address] Faina Villegas PA Social History Tobacco Use [...] filedocumented in this encounter Care Teams Personal Carer Relationship Specialty Start Date End Date Dandre Chavez MD [address] [place] [address], [address] [place], [place] PCP - General 07/07/19 documented as of this encounter
--- OUTSIDE RECORDS SUMMARY | 2025-06-07 06:56 | XMS_ITS | Encounter Summary ---
Author Organization [facility], Address [address] [place] [address] Phone Care Team Providers Care Professor Of Special Education Name Role Phone Dandre Chavez MD Primary Care Provider [phone] Encounter Details Date Type Department Care Team (Late st Contact Info) Description 08/02/2022 Documentation Only [facility], [address] [place] [address] Faina Villegas PA Social History Tobacco Use [...] on filedocumented in this encounter Care Teams Professor Of Special Education Relationship Specialty Start Date End Date Dandre Chavez MD [address] [place] [address], [address] [place], [place] PCP - General 07/07/19 documented as of this encounter
--- OUTSIDE RECORDS SUMMARY | 2025-06-07 06:56 | XMS_ITS | Encounter Summary ---
Author Organization [facility] Address [address] [place] [address] Care Team Providers Care Cassandra Architect Name Role Phone Amina Burciaga MD Primary Care Provider [phone] Encounter Details Date Type Department Care Team (Late st Contact Info) Description 07/13/[address] [facility] - Main Lab [address] [facility] [place] [address] Hortencia Mcclellan MD [address] [phone] Type 2 diabetes mellitus without complications (CMS/HCC [...] mmol/L LAB CHEMISTRY METHOD 07/14/2024 9:03 AM [facility] Potassium 3.8 3.5 - 5.5 mmol/L LAB CHEMISTRY METHOD 07/14/2024 9:03 AM [facility] Chloride 105 96 - 110 mmol/L LAB CHEMISTRY METHOD 07/14/2024 9:03 AM [facility] CO2 28 21 - 32 mmol/L LAB CHEMISTRY METHOD 07/14/2024 9:03 AM [facility] Anion Gap 6 3 - 11 LAB CHEMISTRY METHOD 07/14/2024 9:03 AM [facility] Glucose 105(H) 70 - 100 mg/dL LAB CHEMISTRY METHOD 07/14/2024 9:03 AM [facility] BUN 70(H) 5 - 25 mg/dL LAB CHEMISTRY METHOD 07/14/2024 9:03 AM [facility] Creatinine 3.26(H) 0.50 - 1.10 mg/dL LAB CHEMISTRY METHOD 07/14/2024 9:03 AM [facility] eGFR 14(L) >=60 mL/min/1. 73m2 LAB CHEMISTRY METHOD 07/14/2024 9:03 AM [facility] Comment:Calculation based on the Chronic Kidney Disease Epidemiology Collaboration (CKD-EPI) equation refit without adjustment for race. BUN/Creatinine Ratio 21.5 LAB CHEMISTRY METHOD 07/14/2024 9:03 AM [facility] Calcium 8.6 8.5 - 10.5 mg/dL LAB CHEMISTRY METHOD 07/14/2024 9:03 AM [facility] Blood Venous blood specimen / Unknown Venipuncture / Unknown 07/14/2024 6:08 AM EST 07/14/2024 8:03 AM EST us Hortencia Mcclellan MD LAB BLOOD ORDERABLES Fin al Result [facility] [address] [place] [address], * (ABNORMAL) Complete blood count (07/14/2024 6:08 AM EST) [facility] WBC 5.3 4.8 - 10.8 K/mcL LAB HEMETOLOGY METHOD 07/14/2024 8:32 AM [facility] RBC 3.00(L) 3.80 - 4.80 M/mcL LAB HEMETOLOGY METHOD 07/14/2024 8:32 AM [facility] Hemoglobin 8.3(L) 11.5 - 16.0 g/dL LAB HEMETOLOGY METHOD 07/14/2024 8:32 AM [facility] Hematocrit 29.9(L) 35.0 - 47.0 % LAB HEMETOLOGY METHOD 07/14/2024 8:32 AM [facility] MCV 101.4(H) 79.0 - 98.0 FL LAB HEMETOLOGY METHOD 07/14/2024 8:32 AM [facility] MCH 28.1 27.0 - 32.0 pcg LAB HEMETOLOGY METHOD 07/14/2024 8:32 AM [facility] MCHC 27.8(L) 32.0 - 37.0 g/dL LAB HEMETOLOGY METHOD 07/14/2024 8:32 AM [facility] RDW 20.0(H) 11.0 - 15.0 % LAB HEMETOLOGY METHOD 07/14/2024 8:32 AM [facility] Platelets 198 130 - 400 K/mcL LAB HEMETOLOGY METHOD 07/14/2024 8:32 AM [facility] MPV 10.3 7.0 - 11.0 FL LAB HEMETOLOGY METHOD 07/14/2024 8:32 AM [facility] NRBC 0.0 <1.0 % LAB HEMETOLOGY METHOD 07/14/2024 8:32 AM EST [facility] NRBC Absolute 0.00 <0.10 K/mcL LAB HEMETOLOGY METHOD 07/14/2024 8:32 AM EST [facility] Blood Venous blood specimen / Unknown Venipuncture / Unknown 07/14/2024 6:08 AM EST 07/14/2024 8:03 AM EST us Hortencia Mcclellan MD LAB BLOOD ORDERABLES Fin al Result [facility] [address] [place] [address], documented in this encounter Visit Diagnoses Diagnosis Type 2 diabetes mellitus without complications (CMS/HCC V24, CMS/HCC V28) Heart failure, unspecified (CMS/HCC V24, CMS/HCC V28) Heart failure, unspecified documented in this encounter Care Teams Cassandra Architect Relationship Specialty Start Date End Date Amina Burciaga MD [address] [place] [address] PCP - General Hospitalist Medicine 09/11/24 documented as of this encounter
--- OUTSIDE RECORDS SUMMARY | 2025-06-07 06:56 | XMS_ITS | Clinical Summary ---
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 to her [...] PM EST) Hemoglobin A1C 6.9(H) (4.0-5.6) % [facility] Comment: MONITORING: In known diabetic patients, [...] Supplement 1 Testing performed or reported by [facility], a Service of [address] [address] Louis Fry MD, Track Template Maker [facility]# [id number] Blood specimen (specimen) Venous blood / Unknown 10/18/2022 2:34 PM EST 10/18/2022 2:35 PM EST us Faina LUCIANO LAB BLOOD ORDERABLES Final Res ult [facility] from Last 3 Months or Most Recently Relevant to Health Maintenance Insurance Medicare [facility] H[place] AGUIRRE [id number] Care Teams Director Of Program Management Relationship Specialty Start Date End Date Dandre Chavez MD [address] [place] [address], [address] [place] PCP - General 07/07/19
--- OUTSIDE RECORDS SUMMARY | 2025-06-07 06:56 | XMS_ITS | Encounter Summary ---
Author Organization [facility] Address [address] [place] [address] Phone Care Team Providers Care Rubber Off Name Role Phone Dandre Chavez MD Primary Care Provider [phone] Miguel Enciso MD Unavailable [phone] Encounter Details Date Type Department Care Team (Late st Contact Info) Description 04/03/2022 Procedure Pass [facility] [address] [place] [address] Social History Tobacco Use Types Packs/Day Years [...] on filedocumented in this encounter Care Teams Rubber Off Relationship Specialty Start Date End Date Dandre Chavez MD [address] [phone] PCP - General 09/05/17 Miguel Enciso MD [address] [place] [address], [address] [place], [place] [phone] Cardiology 05/28/24 documented as of this encounter Additional Source Comments The information contained in this document represents components of the legal health record. It is not the complete legal health record.[facility]
--- OUTSIDE RECORDS SUMMARY | 2025-06-07 06:56 | XMS_ITS | Encounter Summary ---
Author Organization [facility] Address [address] [place] [address] Care Team Providers Care Union Carpenter Name Role Phone Amina Burciaga MD Primary Care Provider [phone] Encounter Details Date Type Department Care Team (Latest Contact Info) Description 09/07/2024 Lab Requisition [facility] - Main Lab 299 [facility] [employer] [place] [address] Amina Burciaga MD [address] [place] [address] Heart failure, unspecified (CMS/HCC V24, [...] unspecified Type 2 diabetes mellitus without complications ([facility]) documented in this encounter Results * Hemoglobin A1c (09/07/2024 6:24 AM EST) Pathologist [facility] Hemoglobin A1C 5.1 <6.5 % LAB CHEMISTRY METHOD 09/07/2024 11:11 AM EST [facility] Mean Bld Glu Estim. 100 mg/dL LAB CHEMISTRY METHOD 09/07/2024 11:11 AM [facility] Blood Venous blood specimen / Unknown Venipuncture / Unknown 09/07/2024 6:24 AM EST 09/07/2024 8:12 AM EST Amina Burciaga MD LAB BLOOD ORDERABLES Final Resul t [facility] [address] [place] [address], * (ABNORMAL) Comprehensive metabolic panel (09/07/2024 6:24 AM EST) [facility] Sodium 140 133 - 145 mmol/L LAB CHEMISTRY METHOD 09/07/2024 9:18 AM [facility] Potassium 3.8 3.5 - 5.5 mmol/L LAB CHEMISTRY METHOD 09/07/2024 9:18 AM [facility] Chloride 106 96 - 110 mmol/L LAB CHEMISTRY METHOD 09/07/2024 9:18 AM [facility] CO2 28 21 - 32 mmol/L LAB CHEMISTRY METHOD 09/07/2024 9:18 AM [facility] Anion Gap 6 3 - 11 LAB CHEMISTRY METHOD 09/07/2024 9:18 AM [facility] Glucose 61(L) 70 - 100 mg/dL LAB CHEMISTRY METHOD 09/07/2024 9:18 AM [facility] BUN 59(H) 5 - 25 mg/dL LAB CHEMISTRY METHOD 09/07/2024 9:18 AM [facility] Creatinine 3.13(H) 0.50 - 1.10 mg/dL LAB CHEMISTRY METHOD 09/07/2024 9:18 AM [facility] eGFR 15(L) >=60 mL/min/1. 73m2 LAB CHEMISTRY METHOD 09/07/2024 9:18 AM [facility] Comment:Calculation based on the Chronic Kidney Disease Epidemiology Collaboration (CKD-EPI) equation refit without adjustment for race. BUN/Creatinine Ratio 18.8 LAB CHEMISTRY METHOD 09/07/2024 9:18 AM [facility] Calcium 9.0 8.5 - 10.5 mg/dL LAB CHEMISTRY METHOD 09/07/2024 9:18 AM [facility] AST (SGOT) 17 10 - 42 unit/L LAB CHEMISTRY METHOD 09/07/2024 9:18 AM [facility] ALT (SGPT) 20 10 - 60 unit/L LAB CHEMISTRY METHOD 09/07/2024 9:18 AM [facility] Alkaline Phosphatase 60 42 - 121 unit/L LAB CHEMISTRY METHOD 09/07/2024 9:18 AM [facility] Total Protein 6.9 6.0 - 8.0 g/dL LAB CHEMISTRY METHOD 09/07/2024 9:18 AM [facility] Albumin 3.0(L) 3.2 - 5.0 g/dL LAB CHEMISTRY METHOD 09/07/2024 9:18 AM [facility] Total Bilirubin 0.5 0.0 - 1.4 mg/dL LAB CHEMISTRY METHOD 09/07/2024 9:18 AM [facility] Blood Venous blood specimen / Unknown Venipuncture / Unknown 09/07/2024 6:24 AM EST 09/07/2024 8:12 AM EST us Amina Burciaga MD LAB BLOOD ORDERABLES Final Resul t [facility] [address] [place] [address], * (ABNORMAL) Complete blood count (09/07/2024 6:24 AM EST) [facility] Signature WBC 4.7(L) 4.8 - 10.8 K/mcL LAB HEMETOLOGY METHOD 09/07/2024 8:53 AM [facility] RBC 3.00(L) 3.80 - 4.80 M/mcL LAB HEMETOLOGY METHOD 09/07/2024 8:53 AM [facility] Hemoglobin 8.9(L) 11.5 - 16.0 g/dL LAB HEMETOLOGY METHOD 09/07/2024 8:53 AM [facility] Hematocrit 30.6(L) 35.0 - 47.0 % LAB HEMETOLOGY METHOD 09/07/2024 8:53 AM [facility] MCV 101.7(H) 79.0 - 98.0 FL LAB HEMETOLOGY METHOD 09/07/2024 8:53 AM [facility] MCH 29.6 27.0 - 32.0 pcg LAB HEMETOLOGY METHOD 09/07/2024 8:53 AM [facility] MCHC 29.1(L) 32.0 - 37.0 g/dL LAB HEMETOLOGY METHOD 09/07/2024 8:53 AM [facility] RDW 20.1(H) 11.0 - 15.0 % LAB HEMETOLOGY METHOD 09/07/2024 8:53 AM [facility] Platelets 196 130 - 400 K/mcL LAB HEMETOLOGY METHOD 09/07/2024 8:53 AM [facility] MPV 10.0 7.0 - 11.0 FL LAB HEMETOLOGY METHOD 09/07/2024 8:53 AM [facility] NRBC 0.0 <1.0 % LAB HEMETOLOGY METHOD 09/07/2024 8:53 AM EST [facility] NRBC Absolute 0.00 <0.10 K/mcL LAB HEMETOLOGY METHOD 09/07/2024 8:53 AM EST [facility] Blood Venous blood specimen / Unknown Venipuncture / Unknown 09/07/2024 6:24 AM EST 09/07/2024 8:12 AM EST us Amina Burciaga MD LAB BLOOD ORDERABLES Final Resul t [facility] [address] [place] [address], documented in this encounter Visit Diagnoses Diagnosis Heart failure, unspecified (CMS/HCC V24, CMS/HCC V28) Heart failure, unspecified Chronic kidney disease, unspecified Type 2 diabetes mellitus without complications (CMS/HCC V24, CMS/HCC V28) documented in this encounter Care Teams Union Carpenter Relationship Specialty Start Date End Date Amina Burciaga MD [address] [place] [address] PCP - General Hospitalist Medicine 09/11/24 documented as of this encounter
--- OUTSIDE RECORDS SUMMARY | 2025-06-07 06:56 | XMS_ITS | Encounter Summary ---
Author Organization [facility] Address [address] [place] [address] Phone Care Team Providers Care Manager Global Name Role Phone Dandre Chavez MD Primary Care Provider [phone] Miguel Enciso MD Unavailable [phone] Encounter Details Date Type Department Care Team (Late st Contact Info) Description 09/18/2019 Ancillary Orders [facility] [address] 3[address] Floor [place], [place] [phone] Miguel Enciso MD [address] [place] [address], [address] [place], [place] [phone] [email or web address] PVD (peripheral vascular disease) Social [...] disease documented in this encounter Care Teams Manager Global Relationship Specialty Start Date End Date Dandre Chavez MD [address] [place] [address] PCP - General 09/05/17 Miguel Enciso MD [address] [place] [address] [address] [place] [address] Cardiology 05/28/24 documented as of this encounter Additional Source Comments The information contained in this document represents components of the legal health record. It is not the complete legal health record.[facility]
--- OUTSIDE RECORDS SUMMARY | 2025-06-07 06:56 | XMS_ITS | Encounter Summary ---
Author Organization [facility] Address [address] [place] [address] Care Team Providers Care Assistant Associate Full Professor Name Role Phone Amina Burciaga MD Primary Care Provider Encounter Details Date Type Department Care Team (Late st Contact Info) Description 07/20/2024 Lab Requisition [facility] - Main Lab 299 [facility] [place] [address] Hortencia Mcclellan MD 819 [facility] 1 [place], [place] [phone] Type 2 diabetes mellitus without complications (CMS/HCC [...] mmol/L LAB CHEMISTRY METHOD 07/21/2024 8:50 AM [facility] Potassium 4.5 3.5 - 5.5 mmol/L LAB CHEMISTRY METHOD 07/21/2024 8:50 AM [facility] Chloride 108 96 - 110 mmol/L LAB CHEMISTRY METHOD 07/21/2024 8:50 AM [facility] CO2 27 21 - 32 mmol/L LAB CHEMISTRY METHOD 07/21/2024 8:50 AM [facility] Anion Gap 5 3 - 11 LAB CHEMISTRY METHOD 07/21/2024 8:50 AM [facility] Glucose 71 70 - 100 mg/dL LAB CHEMISTRY METHOD 07/21/2024 8:50 AM [facility] BUN 68(H) 5 - 25 mg/dL LAB CHEMISTRY METHOD 07/21/2024 8:50 AM [facility] Creatinine 3.00(H) 0.50 - 1.10 mg/dL LAB CHEMISTRY METHOD 07/21/2024 8:50 AM [facility] eGFR 16(L) >=60 mL/min/1. 73m2 LAB CHEMISTRY METHOD 07/21/2024 8:50 AM [facility] Comment:Calculation based on the Chronic Kidney Disease Epidemiology Collaboration (CKD-EPI) equation refit without adjustment for race. BUN/Creatinine Ratio 22.7 LAB CHEMISTRY METHOD 07/21/2024 8:50 AM [facility] Calcium 9.1 8.5 - 10.5 mg/dL LAB CHEMISTRY METHOD 07/21/2024 8:50 AM [facility] Blood Venous blood specimen / Unknown Venipuncture / Unknown 07/21/2024 5:53 AM EST 07/21/2024 7:55 AM EST us Hortencia Mcclellan MD LAB BLOOD ORDERABLES Fin al Result [facility] [address] [place] [address], * (ABNORMAL) Complete blood count (07/21/2024 5:53 AM EST) [facility] WBC 5.0 4.8 - 10.8 K/mcL LAB HEMETOLOGY METHOD 07/21/2024 8:26 AM [facility] RBC 2.90(L) 3.80 - 4.80 M/mcL LAB HEMETOLOGY METHOD 07/21/2024 8:26 AM [facility] Hemoglobin 8.2(L) 11.5 - 16.0 g/dL LAB HEMETOLOGY METHOD 07/21/2024 8:26 AM [facility] Hematocrit 29.0(L) 35.0 - 47.0 % LAB HEMETOLOGY METHOD 07/21/2024 8:26 AM [facility] MCV 100.7(H) 79.0 - 98.0 FL LAB HEMETOLOGY METHOD 07/21/2024 8:26 AM [facility] MCH 28.5 27.0 - 32.0 pcg LAB HEMETOLOGY METHOD 07/21/2024 8:26 AM [facility] MCHC 28.3(L) 32.0 - 37.0 g/dL LAB HEMETOLOGY METHOD 07/21/2024 8:26 AM [facility] RDW 19.2(H) 11.0 - 15.0 % LAB HEMETOLOGY METHOD 07/21/2024 8:26 AM [facility] Platelets 223 130 - 400 K/mcL LAB HEMETOLOGY METHOD 07/21/2024 8:26 AM [facility] MPV 10.0 7.0 - 11.0 FL LAB HEMETOLOGY METHOD 07/21/2024 8:26 AM [facility] NRBC 0.0 [...] Result [facility] [address] [place] [address], documented in this encounter Visit Diagnoses Diagnosis Type 2 diabetes mellitus without complications (CMS/HCC V24, CMS/HCC V28) Heart failure, unspecified (CMS/HCC V24, CMS/HCC V28) Heart failure, unspecified documented in this encounter Care Teams Assistant Associate Full Professor Relationship Specialty Start Date End Date Amina Burciaga MD [address] [place] [address] PCP - General Hospitalist Medicine 09/11/24 documented as of this encounter
--- OUTSIDE RECORDS SUMMARY | 2025-06-07 06:56 | XMS_ITS | Encounter Summary ---
Author Organization [facility] Address [address] [place] [address] Care Team Providers Care Recycling Operations Manager Name Role Phone Amina Burciaga MD Primary Care Provider [phone] Encounter Details Date Type Department Care Team (Late st Contact Info) Description 08/10/2024 Lab Requisition [facility] - Main Lab 299 [facility] [employer] [place] [address] Hortencia Mcclellan MD [address] [phone] Type 2 diabetes mellitus without complications (CMS/HCC [...] unspecified documented in this encounter Care Teams Recycling Operations Manager Relationship Specialty Start Date End Date Amina Burciaga MD [address] [place] [address] PCP - General Hospitalist Medicine 09/11/24 documented as of this encounter
--- OUTSIDE RECORDS SUMMARY | 2025-06-07 06:56 | XMS_ITS | Encounter Summary ---
Author Organization [facility], Address [address] [place] [address] Phone Care Team Providers Care Patient Care Specialist Name Role Phone Dandre Chavez MD Primary Care Provider [phone] Encounter Details Date Type Department Care Team (Late st Contact Info) Description 02/09/2022 Documentation Only [facility], [address] [place] [address] Faina Villegas PA Social History Tobacco Use [...] on filedocumented in this encounter Care Teams Patient Care Specialist Relationship Specialty Start Date End Date Dandre Chavez MD [address] [place] [address], [address] [place], [place] PCP - General 07/07/19 documented as of this encounter
--- OUTSIDE RECORDS SUMMARY | 2025-06-07 06:56 | XMS_ITS | Encounter Summary ---
Author Organization [facility], Address [address] [place] [address] Phone Care Team Providers Care Central Supply Nurse Name Role Phone Dandre Chavez MD Primary Care Provider [phone] Encounter Details Date Type Department Care Team (Late st Contact Info) Description 10/10/2021 Documentation Only [facility], [address] [place] [address] Faina Villegas PA Social History Tobacco Use [...] filedocumented in this encounter Care Teams Central Supply Nurse Relationship Specialty Start Date End Date Dandre Chavez MD [address] [place] [address], [address] [place], [place] PCP - General 07/07/19 documented as of this encounter
--- OUTSIDE RECORDS SUMMARY | 2025-06-07 06:56 | XMS_ITS | Clinical Summary ---
Author Organization [facility] Address [address] [place] [address] Care Team Providers Care Cable Weaver Name Role Phone Dandre Chavez MD Primary Care Provider [phone] Allergies Active Allergy Reactions Criticality Noted Date [...] age to complete this topic Care Teams Cable Weaver Relationship Specialty Start Date End Date Dandre Chavez MD [address] [place] [address] [place] [phone] PCP - General Internal Medicine 11/06/22
--- OUTSIDE RECORDS SUMMARY | 2025-06-07 06:56 | XMS_ITS | Encounter Summary ---
Author Organization [facility] Address [address] [place] [address] Care Team Providers Care Automotive General Manager Name Role Phone Amina Burciaga MD Primary Care Provider [phone] Encounter Details Date Type Department Care Team (Late st Contact Info) Description 07/10/2024 Lab Requisition [facility] - Main Lab 299 [facility] [place] [address] Lloyd Jernigan MD [address] [place] [address] Unspecified dementia, unspecified severity, without behavioral disturbance, [...] esult [facility] [address] [place] [address], * (ABNORMAL) Complete blood count (07/10/2024 6:29 [...] ORDERABLES Final R esult Performing Organization Address City/[facility]/ZIP Co de Phone Number [facility] [address] [place] [address], [place] [phone] * Hemoglobin A1c (07/10/2024 6:29 AM EST) [...] esult [facility] [address] [place] [address], [place] [phone] documented in this encounter Visit Diagnoses Diagnosis Unspecified dementia, unspecified severity, without behavioral disturbance, psychotic disturbance, mood disturbance, and anxiety (CMS/HCC V24, CMS/HCC V28) documented in this encounter Care Teams Automotive General Manager Relationship Specialty Start Date End Date Amina Burciaga MD [address] [place] [address] PCP - General Hospitalist Medicine 09/11/24 documented as of this encounter
--- OUTSIDE RECORDS SUMMARY | 2025-06-07 06:56 | XMS_ITS | Clinical Summary ---
Author Organization [address] Address [address] [place] [address] Phone Care Team Providers Care Large Animal Husbandry Technician Name Role Phone Amina Burciaga MD Primary Care Provider [phone] Immunizations Immunization Administration Dates Next Due Pfizer [...] LAB CHEMISTRY METHOD 09/30/2024 1:04 PM EST [facility] Total Protein 6.2 6.0 - [...] ORDERABLES Final Resu lt Performing Organization Address City/[facility]/ZIP Co de Phone Number [facility] [address] [place] [address], [place] [phone] * Hemoglobin A1c (09/23/2024 8:20 AM EST) [...] ORDERABLES Final Resul t Performing Organization Address City/[facility]/ZIP Co de Phone Number [facility] [address] [place] [address], [place] [phone] from Last 3 Months or Most Recently Relevant to Health Maintenance Insurance [place] [employer] [employer] Care Teams Large Animal Husbandry Technician Relationship Specialty Start Date End Date Amina Burciaga MD [address] [place] [address] PCP - General Hospitalist Medicine 09/11/24
--- OUTSIDE RECORDS SUMMARY | 2025-06-07 06:56 | XMS_ITS | Encounter Summary ---
Author Organization [facility], Address [address] [place] [address] Phone Care Team Providers Care Technical Agronomist Name Role Phone Dandre Chavez MD Primary Care Provider [phone] Encounter Details Date Type Department Care Team (Late st Contact Info) Description 11/29/2023 Documentation Only [facility], [address] [place] [address] Radha Chatterjee [place] [address] [place] [phone] Social History Tobacco Use Types Packs/Day Years [...] filedocumented in this encounter Care Teams Technical Agronomist Relationship Specialty Start Date End Date Dandre Chavez MD [address] [place] [address], [address] [place], [place] PCP - General 07/07/19 documented as of this encounter
--- OUTSIDE RECORDS SUMMARY | 2025-06-07 06:56 | XMS_ITS | Encounter Summary ---
Author Organization [facility] Address [address] [place] [address] Phone Care Team Providers Care Wireless Development Manager Name Role Phone Dandre Chavez MD Primary Care Provider [phone] Miguel Enciso MD Unavailable [phone] Encounter Details Date Type Department Care Team (Late st Contact Info) Description 12/20/2022 Procedure Pass Non-Invasive Cardiology [address] [place], [place] [phone] Social History Tobacco Use Types Packs/Day Years [...] on filedocumented in this encounter Care Teams Wireless Development Manager Relationship Specialty Start Date End Date Dandre Chavez MD [address] [place] [phone] PCP - General 09/05/17 Miguel Enciso MD [address] [place] [address], [address] [place], [place] [phone] Cardiology 05/28/24 documented as of this encounter Additional Source Comments The information contained in this document represents components of the legal health record. It is not the complete legal health record.[facility]
--- OUTSIDE RECORDS SUMMARY | 2025-06-07 06:56 | XMS_ITS | Encounter Summary ---
Author Organization [facility] Address [address] [place] [address] Care Team Providers Care Hotel Server Name Role Phone Amina Burciaga MD Primary Care Provider [phone] Encounter Details Date Type Department Care Team (Late st Contact Info) Description 07/27/2024 Lab Requisition [facility] - Main Lab 299 [facility] [place] [address] Hortencia Mcclellan MD [address] [phone] Type 2 diabetes mellitus without complications (CMS/HCC [...] mmol/L LAB CHEMISTRY METHOD 07/28/2024 8:47 AM [facility] Potassium 4.3 3.5 - 5.5 mmol/L LAB CHEMISTRY METHOD 07/28/2024 8:47 AM [facility] Chloride 107 96 - 110 mmol/L LAB CHEMISTRY METHOD 07/28/2024 8:47 AM [facility] CO2 25 21 - 32 mmol/L LAB CHEMISTRY METHOD 07/28/2024 8:47 AM [facility] Anion Gap 10 3 - 11 LAB CHEMISTRY METHOD 07/28/2024 8:47 AM [facility] Glucose 49(L) 70 - 100 mg/dL LAB CHEMISTRY METHOD 07/28/2024 8:47 AM [facility] BUN 45(H) 5 - 25 mg/dL LAB CHEMISTRY METHOD 07/28/2024 8:47 AM [facility] Creatinine 2.36(H) 0.50 - 1.10 mg/dL LAB CHEMISTRY METHOD 07/28/2024 8:47 AM [facility] eGFR 21(L) >=60 mL/min/1. 73m2 LAB CHEMISTRY METHOD 07/28/2024 8:47 AM [facility] Comment:Calculation based on the Chronic Kidney Disease Epidemiology Collaboration (CKD-EPI) equation refit without adjustment for race. BUN/Creatinine Ratio 19.1 LAB CHEMISTRY METHOD 07/28/2024 8:47 AM [facility] Calcium 9.2 8.5 - 10.5 mg/dL LAB CHEMISTRY METHOD 07/28/2024 8:47 AM [facility] Blood Venous blood specimen / Unknown Venipuncture / Unknown 07/28/2024 5:41 AM EST 07/28/2024 8:02 AM EST us Hortencia Mcclellan MD LAB BLOOD ORDERABLES Fin al Result [facility] [address] [place] [address], * (ABNORMAL) Complete blood count (07/28/2024 5:41 AM EST) [facility] WBC 4.1(L) 4.8 - 10.8 K/mcL LAB HEMETOLOGY METHOD 07/28/2024 8:20 AM [facility] RBC 3.00(L) 3.80 - 4.80 M/mcL LAB HEMETOLOGY METHOD 07/28/2024 8:20 AM [facility] Hemoglobin 8.6(L) 11.5 - 16.0 g/dL LAB HEMETOLOGY METHOD 07/28/2024 8:20 AM [facility] Hematocrit 29.9(L) 35.0 - 47.0 % LAB HEMETOLOGY METHOD 07/28/2024 8:20 AM [facility] MCV 99.7(H) 79.0 - 98.0 FL LAB HEMETOLOGY METHOD 07/28/2024 8:20 AM [facility] MCH 28.7 27.0 - 32.0 pcg LAB HEMETOLOGY METHOD 07/28/2024 8:20 AM [facility] MCHC 28.8(L) 32.0 - 37.0 g/dL LAB HEMETOLOGY METHOD 07/28/2024 8:20 AM [facility] RDW 19.6(H) 11.0 - 15.0 % LAB HEMETOLOGY METHOD 07/28/2024 8:20 AM [facility] Platelets 162 130 - 400 K/mcL LAB HEMETOLOGY METHOD 07/28/2024 8:20 AM [facility] MPV 10.5 7.0 - 11.0 FL LAB HEMETOLOGY METHOD 07/28/2024 8:20 AM [facility] NRBC 0.0 <1.0 % LAB HEMETOLOGY METHOD 07/28/2024 8:20 AM EST [facility] NRBC Absolute 0.00 <0.10 K/mcL LAB HEMETOLOGY METHOD 07/28/2024 8:20 AM EST [facility] Blood Venous blood specimen / Unknown Venipuncture / Unknown 07/28/2024 5:41 AM EST 07/28/2024 8:02 AM EST us Hortencia Mcclellan MD LAB BLOOD ORDERABLES Fin al Result [facility] [address] [place] [address], documented in this encounter Visit Diagnoses Diagnosis Type 2 diabetes mellitus without complications (CMS/HCC V24, CMS/HCC V28) Heart failure, unspecified (CMS/HCC V24, CMS/HCC V28) Heart failure, unspecified documented in this encounter Care Teams Hotel Server Relationship Specialty Start Date End Date Amina Burciaga MD [address] [place] [address] PCP - General Hospitalist Medicine 09/11/24 documented as of this encounter
--- OUTSIDE RECORDS SUMMARY | 2025-06-07 06:56 | XMS_ITS | Encounter Summary ---
Author Organization [facility], Address [address] [place] [address] Phone Care Team Providers Care Storage Facility Rental Clerk Name Role Phone Dandre Chavez MD Primary Care Provider [phone] Encounter Details Date Type Department Care Team (Late st Contact Info) Description 01/14/2023 Documentation Only [facility], [address] [place] [address] Melissa Delgadillo [address] [place] [phone] Social History Tobacco Use Types Packs/Day Years [...] on filedocumented in this encounter Care Teams Storage Facility Rental Clerk Relationship Specialty Start Date End Date Dandre Chavez MD [address] [place] [address], [address] [place], [place] PCP - General 07/07/19 documented as of this encounter
--- OUTSIDE RECORDS SUMMARY | 2025-06-07 06:56 | XMS_ITS | Encounter Summary ---
Author Organization [facility] Address [address] [place] [address] Phone Care Team Providers Care Supervisor Pyrotechnic Loading Name Role Phone Dandre Chavez MD Primary Care Provider [phone] Miguel Enciso MD Unavailable [phone] Encounter Details Date Type Department Care Team (Latest Contact Info) Description 12/16/2018 Ancillary Orders Non-Invasive Cardiology [address] [place] [address] Cathy Browning NP [address] [place] [address] Atherosclerosis of [place] coronary artery of [place] heart with angina pectoris Social History Tobacco [...] AM EDT) Max BP Systolic 150 mmHg [facility] Max BP Diastolic 80 mmHg [facility] Max HR 89 BPM [facility] Resting HR 78 BPM [facility] Resting BP Systolic 150 mmHg [facility] Resting BP Diastolic 80 mmHg [facility] Peak METS 1.0 METS [facility] Peak HR 83 BPM [facility] Anatomical Region Laterality Modality Heart [...] this encounter Visit Diagnoses Diagnosis 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 Cardiology 05/28/24 documented as of this encounter Additional Source Comments The information contained in this document represents components of the legal health record. It is not the complete legal health record.[facility]
--- OUTSIDE RECORDS SUMMARY | 2025-06-07 06:56 | XMS_ITS | Encounter Summary ---
Author Organization [facility] Address [address] [place], [place] [address] [place] [address] Phone Care Team Providers Care Owner Professional Engineer Name Role Phone Dandre Chavez MD Primary Care Provider [phone] Miguel Enciso MD Unavailable [phone] Encounter Details Date Type Department Care Team (Late st Contact Info) Description 07/01/2024 Procedure Pass [facility] Cardiology Referral Images [address] [facility] [address] [place] [address] Social History Tobacco Use Types Packs/Day Years [...] on filedocumented in this encounter Care Teams Owner Professional Engineer Relationship Specialty Start Date End Date Dandre Chavez MD [address] [place] [address] PCP - General 09/05/17 Miguel Enciso MD [address] [place] [address] [email or web address] Cardiology 05/28/24 documented as of this encounter Additional Source Comments The information contained in this document represents components of the legal health record. It is not the complete legal health record.[facility]
--- OUTSIDE RECORDS SUMMARY | 2025-06-07 06:56 | XMS_ITS | Encounter Summary ---
Author Organization [facility] Address [address] [place] [address] Phone Care Team Providers Care Armoured Car Escort Name Role Phone Dandre Chavez MD Primary Care Provider [phone] Miguel Enciso MD Unavailable [phone] Encounter Details Date Type Department Care Team (Late st Contact Info) Description 12/21/2022 Procedure Pass [facility] [address] [id number] Social History Tobacco Use Types Packs/Day Years [...] on filedocumented in this encounter Care Teams Armoured Car Escort Relationship Specialty Start Date End Date Dandre Chavez MD [address] [place] [address] [phone] PCP - General 09/05/17 Miguel Enciso MD 22 [facility], [address] [place], [place] [phone] Cardiology 05/28/24 documented as of this encounter Additional Source Comments The information contained in this document represents components of the legal health record. It is not the complete legal health record.[facility]
--- OUTSIDE RECORDS SUMMARY | 2025-06-07 06:56 | XMS_ITS | Encounter Summary ---
Author Organization [facility], Address [address] [place] [address] Phone Care Team Providers Care Pmp Project Manager Name Role Phone Dandre Chavez MD Primary Care Provider [phone] Encounter Details Date Type Department Care Team (Late st Contact Info) Description 09/25/2021 Documentation Only [facility], [address] [place] [address] Faina Villegas PA Social History Tobacco Use [...] on filedocumented in this encounter Care Teams Pmp Project Manager Relationship Specialty Start Date End Date Dandre Chavez MD [address] [place] [address], [address] [place], [place] PCP - General 07/07/19 documented as of this encounter
[2025-06-07 07:28] LABS: Anion Gap 18 (12-20); Blood Urea Nitrogen 98 mg/dL (9-16); Calcium 8.9 mg/dL (8.4-10.2); Carbon Dioxide 21 mmol/L (22-29); Chloride 105 mmol/L (96-108); Estimated Glomerular Filt Rate 15; Potassium 4.3 mmol/L (3.3-5.1); Sodium 140 mmol/L (135-145)
== END 2025-06-07 06:44 | disposition home or self-care (01) ==
LOC: HO.MMNH2L 06:43
PROVIDERS: Visit Provider Student in an Organized Health Care Education/Training Program
DX: I50.9 Heart failure, unspecified (principal)
CPT/HCPCS: 36415; 80048; 85025

== ENCOUNTER 2025-06-14 07:20 | Outpatient (REF) | payer MEDICARE, SELFPAY ==
--- OUTSIDE RECORDS SUMMARY | 2018-12-31 05:05 | XMS_ITS | Continuity of Care Document ---
Author Organization [facility] Address [address] [address] Phone Care Team Providers Care Gullet Slitter Name Role Phone Brodie Hinds DO Unavailable Unavailable Advance Directives Directive Yes / No Effective Date File Name No Information Encounters Encounter Description Practice Location Reason(s) For Visit Diagnoses Date Provider [facility], [address], [id number], [place] tel:[phone] [address] [place] [address] No Information 2018 Guzman Calloway. [address] [place] [address], [id number], [place]. tel:[phone] Family History Family Member Type Diagnosis Age [...]
--- OUTSIDE RECORDS SUMMARY | 2018-12-31 05:05 | XMS_ITS | Continuity of Care Document ---
Author Organization [facility] Address [address] [address] Phone Care Team Providers Care Medical Director Occupational Health Name Role Phone Brodie Hinds DO Unavailable Unavailable Advance Directives Directive Yes / No Effective Date File Name No Information Encounters Encounter Description Practice Location Reason(s) For Visit Diagnoses Date Provider [facility], [address], [id number], [place] tel:[phone] [address] [place] [address] No Information 2018 Guzman Calloway. [address] [place] [address], [id number], [place]. tel:[phone] Family History Family Member Type Diagnosis Age [...]
--- OUTSIDE RECORDS SUMMARY | 2025-06-08 07:01 | XMS_ITS | Encounter Summary ---
Author Organization [facility] [place], Address [address] [place] [address] Phone Care Team Providers Care Plate Stacker Hand Name Role Phone Dandre Chavez MD Primary Care Provider [phone] Encounter Details Date Type Department Care Team (Late st Contact Info) Description 11/29/2023 Documentation Only [facility], [address] [place] [address] Radha Chatterjee [place] [address] [place] [phone] Social History Tobacco Use Types Packs/Day Years [...] on filedocumented in this encounter Care Teams Plate Stacker Hand Relationship Specialty Start Date End Date Dandre Chavez MD [address] [place] [address], [address] [place], [place] PCP - General 07/07/19 documented as of this encounter
--- OUTSIDE RECORDS SUMMARY | 2025-06-08 07:01 | XMS_ITS | Encounter Summary ---
Author Organization [facility] [place], Address [address] [place] [address] Phone Care Team Providers Care Wheel Truing Machine Tender Name Role Phone Dandre Chavez MD Primary Care Provider [phone] Encounter Details Date Type Department Care Team (Late st Contact Info) Description 10/30/2022 Documentation Only [facility], [address] [place] [address] Melissa Delgadillo [address] [place] [phone] Social History Tobacco Use Types Packs/Day Years [...] on filedocumented in this encounter Care Teams Wheel Truing Machine Tender Relationship Specialty Start Date End Date Dandre Chavez MD [address] [place] [address], [address] [place], [place] PCP - General 07/07/19 documented as of this encounter
--- OUTSIDE RECORDS SUMMARY | 2025-06-08 07:01 | XMS_ITS | Encounter Summary ---
Author Organization [facility], Address [address] [place] [address] Phone Care Team Providers Care Carbon Cleaner Name Role Phone Dandre Chavez MD Primary Care Provider [phone] Encounter Details Date Type Department Care Team (Late st Contact Info) Description 01/08/2025 Documentation Only [facility], [address] [place] [address] Radha Chatterjee [place] [address] [place] [phone] Social History Tobacco Use Types Packs/Day Years [...] on filedocumented in this encounter Care Teams Carbon Cleaner Relationship Specialty Start Date End Date Dandre Chavez MD [address] [place] [address], [address] [place], [place] PCP - General 07/07/19 documented as of this encounter
--- OUTSIDE RECORDS SUMMARY | 2025-06-08 07:01 | XMS_ITS | Encounter Summary ---
Author Organization [facility] Address [address] [place] [address] Care Team Providers Care Embroidery Finisher Name Role Phone Amina Burciaga MD Primary Care Provider [phone] Encounter Details Date Type Department Care Team (Late st Contact Info) Description 08/03/2024 Lab Requisition [facility] - Main Lab [address] [facility] [place] [address] Hortencia Mcclellan MD [address] [id number] Type 2 diabetes mellitus without complications (CMS/HCC [...] mmol/L LAB CHEMISTRY METHOD 08/04/2024 9:42 AM [facility] Potassium 3.6 3.5 - 5.5 mmol/L LAB CHEMISTRY METHOD 08/04/2024 9:42 AM [facility] Chloride 106 96 - 110 mmol/L LAB CHEMISTRY METHOD 08/04/2024 9:42 AM [facility] CO2 29 21 - 32 mmol/L LAB CHEMISTRY METHOD 08/04/2024 9:42 AM [facility] Anion Gap 8 3 - 11 LAB CHEMISTRY METHOD 08/04/2024 9:42 AM [facility] Glucose 64(L) 70 - 100 mg/dL LAB CHEMISTRY METHOD 08/04/2024 9:42 AM [facility] BUN 44(H) 5 - 25 mg/dL LAB CHEMISTRY METHOD 08/04/2024 9:42 AM [facility] Creatinine 2.43(H) 0.50 - 1.10 mg/dL LAB CHEMISTRY METHOD 08/04/2024 9:42 AM [facility] eGFR 20(L) >=60 mL/min/1. 73m2 LAB CHEMISTRY METHOD 08/04/2024 9:42 AM [facility] Comment:Calculation based on the Chronic Kidney Disease Epidemiology Collaboration (CKD-EPI) equation refit without adjustment for race. BUN/Creatinine Ratio 18.1 LAB CHEMISTRY METHOD 08/04/2024 9:42 AM [facility] Calcium 8.8 8.5 - 10.5 mg/dL LAB CHEMISTRY METHOD 08/04/2024 9:42 AM [facility] Blood Venous blood specimen / Unknown Venipuncture / Unknown 08/04/2024 6:38 AM EST 08/04/2024 8:24 AM EST us Hortencia Mcclellan MD LAB BLOOD ORDERABLES Fin al Result [facility] [address] [place] [address], * (ABNORMAL) Complete blood count (08/04/2024 6:38 AM EST) [facility] WBC 4.5(L) 4.8 - 10.8 K/mcL LAB HEMETOLOGY METHOD 08/04/2024 9:19 AM [facility] RBC 3.20(L) 3.80 - 4.80 M/mcL LAB HEMETOLOGY METHOD 08/04/2024 9:19 AM [facility] Hemoglobin 9.0(L) 11.5 - 16.0 g/dL LAB HEMETOLOGY METHOD 08/04/2024 9:19 AM [facility] Hematocrit 31.8(L) 35.0 - 47.0 % LAB HEMETOLOGY METHOD 08/04/2024 9:19 AM [facility] MCV 100.0(H) 79.0 - 98.0 FL LAB HEMETOLOGY METHOD 08/04/2024 9:19 AM [facility] MCH 28.3 27.0 - 32.0 pcg LAB HEMETOLOGY METHOD 08/04/2024 9:19 AM [facility] MCHC 28.3(L) 32.0 - 37.0 g/dL LAB HEMETOLOGY METHOD 08/04/2024 9:19 AM [facility] RDW 18.9(H) 11.0 - 15.0 % LAB HEMETOLOGY METHOD 08/04/2024 9:19 AM [facility] Platelets 188 130 - 400 K/mcL LAB HEMETOLOGY METHOD 08/04/2024 9:19 AM [facility] MPV 10.6 7.0 - 11.0 FL LAB HEMETOLOGY METHOD 08/04/2024 9:19 AM [facility] NRBC 0.0 <1.0 % LAB HEMETOLOGY METHOD 08/04/2024 9:19 AM EST [facility] NRBC Absolute 0.00 <0.10 K/mcL LAB HEMETOLOGY METHOD 08/04/2024 9:19 AM EST [facility] Blood Venous blood specimen / Unknown Venipuncture / Unknown 08/04/2024 6:38 AM EST 08/04/2024 8:24 AM EST us Hortencia Mcclellan MD LAB BLOOD ORDERABLES Fin al Result [facility] [address] [place] [address], documented in this encounter Visit Diagnoses Diagnosis Type 2 diabetes mellitus without complications (CMS/HCC V24, CMS/HCC V28) Heart failure, unspecified (CMS/HCC V24, CMS/HCC V28) Heart failure, unspecified documented in this encounter Care Teams Embroidery Finisher Relationship Specialty Start Date End Date Amina Burciaga MD [address] [place] [address] PCP - General Hospitalist Medicine 09/11/24 documented as of this encounter
--- OUTSIDE RECORDS SUMMARY | 2025-06-08 07:01 | XMS_ITS | Clinical Summary ---
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 DIAGNOSTIC USE: The [place] Diabetes Association (ADA) and the World Health [...] Supplement 1 Testing performed or reported by [facility], a Service of [address] [address] Louis Fry MD, Coil Tester [facility]# [id number] Blood specimen (specimen) Venous blood / Unknown 10/18/2022 2:34 PM EST 10/18/2022 2:35 PM EST us Faina LUCIANO LAB BLOOD ORDERABLES Final Res ult [facility] from Last 3 Months or Most Recently Relevant to Health Maintenance Insurance Medicare [facility] [place] [id number] Care Teams Supervisor Type Photography Relationship Specialty Start Date End Date Dandre Chavez MD [address] [place] [address], [address] [place] PCP - General 07/07/19
--- OUTSIDE RECORDS SUMMARY | 2025-06-08 07:01 | XMS_ITS | Encounter Summary ---
Author Organization [facility], Address [address] [place] [address] Phone Care Team Providers Care Building Tech Name Role Phone Dandre Chavez MD Primary Care Provider [phone] Encounter Details Date Type Department Care Team (Late st Contact Info) Description 02/08/2022 Documentation Only [facility], [address] [place] [address] Faina Villegas PA Social History Tobacco Use [...] on filedocumented in this encounter Care Teams Building Tech Relationship Specialty Start Date End Date Dandre Chavez MD [address] [place] [address], [address] [place], [place] PCP - General 07/07/19 documented as of this encounter
--- OUTSIDE RECORDS SUMMARY | 2025-06-08 07:01 | XMS_ITS | Encounter Summary ---
Author Organization [facility], Address [address] [place] [address] Phone Care Team Providers Care Guide Name Role Phone Dandre Chavez MD Primary Care Provider [phone] Encounter Details Date Type Department Care Team (Late st Contact Info) Description 01/14/2023 Documentation Only [facility], [address] [place] [address] Melissa Delgadillo [address] [place] [phone] Social History Tobacco Use Types Packs/Day Years [...] on filedocumented in this encounter Care Teams Guide Relationship Specialty Start Date End Date Dandre Chavez MD [address] [place] [address], [address] [place], [place] PCP - General 07/07/19 documented as of this encounter
--- OUTSIDE RECORDS SUMMARY | 2025-06-08 07:01 | XMS_ITS | Encounter Summary ---
Author Organization [facility] [place], Address [address] [place] [address] Phone Care Team Providers Care Annual Giving Director Name Role Phone Dandre Chavez MD Primary Care Provider [phone] Encounter Details Date Type Department Care Team (Late st Contact Info) Description 12/31/2022 Documentation Only [facility], [address] [place] [address] Melissa Delgadillo [address] [place] [phone] Social History Tobacco Use Types Packs/Day Years [...] on filedocumented in this encounter Care Teams Annual Giving Director Relationship Specialty Start Date End Date Dandre Chavez MD [address] [place] [address], [address] [place], [place] PCP - General 07/07/19 documented as of this encounter
--- OUTSIDE RECORDS SUMMARY | 2025-06-08 07:01 | XMS_ITS | Encounter Summary ---
Author Organization [facility] [place], Address [address] [place] [address] Phone Care Team Providers Care Border Measurer Name Role Phone Dandre Chavez MD Primary Care Provider [phone] Encounter Details Date Type Department Care Team (Late st Contact Info) Description 10/10/2021 Documentation Only [facility], [address] [place] [address] Faina Villegas PA Social History Tobacco Use [...] on filedocumented in this encounter Care Teams Border Measurer Relationship Specialty Start Date End Date Dandre Chavez MD [address] [place] [address], [address] [place], [place] PCP - General 07/07/19 documented as of this encounter
--- OUTSIDE RECORDS SUMMARY | 2025-06-08 07:01 | XMS_ITS | Encounter Summary ---
Author Organization [facility] Address [address] [place] [address] Care Team Providers Care Pizza Chef Name Role Phone Amina Burciaga MD Primary Care Provider [phone] Encounter Details Date Type Department Care Team (Latest Contact Info) Description 09/11/2024 Lab Requisition [facility] - Main Lab [address] [facility] [place] [facility] [place] [address] Amina Burciaga MD [address] [place] [address] Other mcfp (current) drug therapy; Type 2 diabetes mellitus [...] COUNT Routine 09/11/2024 9:47 AM EST Other mcfp (current) drug therapy Type 2 diabetes mellitus without complications (CMS/HCC) Heart failure, unspecified (CMS/HCC) MAGNESIUM Routine 09/11/2024 9:47 AM EST Other mcfp (current) drug therapy Type 2 diabetes mellitus without complications (CMS/HCC) Heart failure, unspecified (CMS/HCC) BASIC METABOLIC PANEL Routine 09/11/2024 9:47 AM EST Other oysterman (current) drug therapy Type 2 diabetes mellitus without complications (CMS/HCC) Heart failure, unspecified (CMS/HCC) documented in this encounter Results * Magnesium (09/11/2024 9:47 AM EST) [facility] Magnesium 2.1 1.9 - 2.6 mg/dL LAB CHEMISTRY METHOD 09/11/2024 12:45 PM [facility] Blood Venous blood specimen / Unknown Venipuncture / Unknown 09/11/2024 9:47 AM EST 09/11/2024 11:29 AM EST Amina Burciaga MD LAB BLOOD ORDERABLES Final Resul t [facility] [address] [place] [address], * (ABNORMAL) Basic metabolic panel (09/11/2024 9:47 AM EST) [facility] Sodium 137 133 - 145 mmol/L LAB CHEMISTRY METHOD 09/11/2024 12:54 PM [facility] Potassium 3.9 3.5 - 5.5 mmol/L LAB CHEMISTRY METHOD 09/11/2024 12:54 PM [facility] Chloride 103 96 - 110 mmol/L LAB CHEMISTRY METHOD 09/11/2024 12:54 PM [facility] CO2 26 21 - 32 mmol/L LAB CHEMISTRY METHOD 09/11/2024 12:54 PM [facility] Anion Gap 8 3 - 11 LAB CHEMISTRY METHOD 09/11/2024 12:54 PM [facility] Glucose 112(H) 70 - 100 mg/dL LAB CHEMISTRY METHOD 09/11/2024 12:54 PM [facility] BUN 50(H) 5 - 25 mg/dL LAB CHEMISTRY METHOD 09/11/2024 12:54 PM [facility] Creatinine 2.73(H) 0.50 - 1.10 mg/dL LAB CHEMISTRY METHOD 09/11/2024 12:54 PM [facility] eGFR 17(L) >=60 mL/min/1. 73m2 LAB CHEMISTRY METHOD 09/11/2024 12:54 PM [facility] Comment:Calculation based on the Chronic Kidney Disease Epidemiology Collaboration (CKD-EPI) equation refit without adjustment for race. BUN/Creatinine Ratio 18.3 LAB CHEMISTRY METHOD 09/11/2024 12:54 PM [facility] Calcium 8.6 8.5 - 10.5 mg/dL LAB CHEMISTRY METHOD 09/11/2024 12:54 PM [facility] Blood Venous blood specimen / Unknown Venipuncture / Unknown 09/11/2024 9:47 AM EST 09/11/2024 11:29 AM EST Amina Burciaga MD LAB BLOOD ORDERABLES Final Resul t [facility] [address] [place] [address], * (ABNORMAL) Complete blood count (09/11/2024 9:47 AM EST) WBC 6.9 4.8 - 10.8 K/mcL LAB HEMETOLOGY METHOD 09/11/2024 11:47 AM [facility] RBC 3.10(L) 3.80 - 4.80 M/mcL LAB HEMETOLOGY METHOD 09/11/2024 11:47 AM [facility] Hemoglobin 9.0(L) 11.5 - 16.0 g/dL LAB HEMETOLOGY METHOD 09/11/2024 11:47 AM [facility] Hematocrit 31.6(L) 35.0 - 47.0 % LAB HEMETOLOGY METHOD 09/11/2024 11:47 AM [facility] MCV 102.6(H) 79.0 - 98.0 FL LAB HEMETOLOGY METHOD 09/11/2024 11:47 AM EST [facility] MCH 29.2 27.0 - 32.0 pcg LAB HEMETOLOGY METHOD 09/11/2024 11:47 AM [facility] MCHC 28.5(L) 32.0 - 37.0 g/dL LAB HEMETOLOGY METHOD 09/11/2024 11:47 AM EST [facility] RDW 20.6(H) 11.0 - 15.0 % LAB HEMETOLOGY METHOD 09/11/2024 11:47 AM EST [facility] Platelets 180 130 - 400 K/mcL LAB HEMETOLOGY METHOD 09/11/2024 11:47 AM [facility] MPV 9.9 7.0 - 11.0 FL LAB HEMETOLOGY METHOD 09/11/2024 11:47 AM EST [facility] NRBC 0.0 <1.0 % LAB HEMETOLOGY METHOD 09/11/2024 11:47 AM [facility] NRBC Absolute 0.00 <0.10 K/mcL LAB HEMETOLOGY METHOD 09/11/2024 11:47 AM [facility] Blood Venous blood specimen / Unknown Venipuncture / Unknown 09/11/2024 9:47 AM EST 09/11/2024 11:29 AM EST us Amina Burciaga MD LAB BLOOD ORDERABLES Final Resul t [facility] [address] [place] [address], documented in this encounter Visit Diagnoses Diagnosis Other mcfp (current) drug therapy Type 2 diabetes mellitus without complications (CMS/HCC V24, CMS/HCC V28) Heart failure, unspecified (CMS/HCC V24, CMS/HCC V28) Heart failure, unspecified documented in this encounter Care Teams Pizza Chef Relationship Specialty Start Date End Date Amina Burciaga MD [address] [place] [address] PCP - General Hospitalist Medicine 09/11/24 documented as of this encounter
--- OUTSIDE RECORDS SUMMARY | 2025-06-08 07:01 | XMS_ITS | Encounter Summary ---
Author Organization [facility] Address [address] [place] [address] Care Team Providers Care Green End Department Supervisor Name Role Phone Amina Burciaga MD Primary Care Provider [phone] Encounter Details Date Type Department Care Team (Late st Contact Info) Description 07/23/[address] [facility] - Main Lab [address] [place] [address] Hortencia Mcclellan MD [address] [phone] Chronic kidney disease, unspecified; Type 2 diabetes [...] LAB CHEMISTRY METHOD 07/23/2024 9:13 AM [facility] CO2 27 21 - 32 mmol/L LAB CHEMISTRY METHOD 07/23/2024 9:13 AM [facility] Anion Gap 6 3 - 11 LAB CHEMISTRY METHOD 07/23/2024 9:13 AM [facility] Glucose 64(L) 70 - 100 mg/dL LAB CHEMISTRY METHOD 07/23/2024 9:13 AM [facility] BUN 62(H) 5 - 25 mg/dL LAB CHEMISTRY METHOD 07/23/2024 9:13 AM [facility] Creatinine 2.70(H) 0.50 - 1.10 mg/dL LAB CHEMISTRY METHOD 07/23/2024 9:13 AM [facility] eGFR 18(L) >=60 mL/min/1. 73m2 LAB CHEMISTRY METHOD 07/23/2024 9:13 AM [facility] Comment:Calculation based on the Chronic Kidney Disease Epidemiology Collaboration (CKD-EPI) equation refit without adjustment for race. BUN/Creatinine Ratio 23.0 LAB CHEMISTRY METHOD 07/23/2024 9:13 AM [facility] Calcium 9.2 8.5 - 10.5 mg/dL LAB CHEMISTRY METHOD 07/23/2024 9:13 AM [facility] Blood Venous blood specimen / Unknown Venipuncture / Unknown 07/23/2024 5:52 AM EST 07/23/2024 8:17 AM EST us Hortencia Mcclellan MD LAB BLOOD ORDERABLES Fin al Result [facility] [address] [place] [address], documented in this encounter Visit Diagnoses Diagnosis Chronic kidney disease, unspecified Type 2 diabetes mellitus without complications (CMS/HCC V24, CMS/HCC V28) documented in this encounter Care Teams Green End Department Supervisor Relationship Specialty Start Date End Date Amina Burciaga MD [address] [place] [address] PCP - General Hospitalist Medicine 09/11/24 documented as of this encounter
--- OUTSIDE RECORDS SUMMARY | 2025-06-08 07:01 | XMS_ITS | Encounter Summary ---
Author Organization [facility] Address [address] [place] [address] Care Team Providers Care Nuclear Medicine Chief Technologist Name Role Phone Amina Burciaga MD Primary Care Provider Encounter Details Date Type Department Care Team (Latest Contact Info) Description 09/07/2024 Lab Requisition [facility] - Main Lab 299 [facility] [employer] [place] [address] Amina Burciaga MD [address] [place] [address] Heart failure, unspecified (CMS/HCC V24, [...] unspecified Type 2 diabetes mellitus without complications ([facility]) documented in this encounter Results * Hemoglobin A1c (09/07/2024 6:24 AM EST) Pathologist [facility] Hemoglobin A1C 5.1 <6.5 % LAB CHEMISTRY METHOD 09/07/2024 11:11 AM EST [facility] Mean Bld Glu Estim. 100 mg/dL LAB CHEMISTRY METHOD 09/07/2024 11:11 AM [facility] Blood Venous blood specimen / Unknown Venipuncture / Unknown 09/07/2024 6:24 AM EST 09/07/2024 8:12 AM EST Amina Burciaga MD LAB BLOOD ORDERABLES Final Resul t [facility] [address] [place] [address], * (ABNORMAL) Comprehensive metabolic panel (09/07/2024 6:24 AM EST) [facility] Sodium 140 133 - 145 mmol/L LAB CHEMISTRY METHOD 09/07/2024 9:18 AM [facility] Potassium 3.8 3.5 - 5.5 mmol/L LAB CHEMISTRY METHOD 09/07/2024 9:18 AM [facility] Chloride 106 96 - 110 mmol/L LAB CHEMISTRY METHOD 09/07/2024 9:18 AM [facility] CO2 28 21 - 32 mmol/L LAB CHEMISTRY METHOD 09/07/2024 9:18 AM [facility] Anion Gap 6 3 - 11 LAB CHEMISTRY METHOD 09/07/2024 9:18 AM [facility] Glucose 61(L) 70 - 100 mg/dL LAB CHEMISTRY METHOD 09/07/2024 9:18 AM [facility] BUN 59(H) 5 - 25 mg/dL LAB CHEMISTRY METHOD 09/07/2024 9:18 AM [facility] Creatinine 3.13(H) 0.50 - 1.10 mg/dL LAB CHEMISTRY METHOD 09/07/2024 9:18 AM [facility] eGFR 15(L) >=60 mL/min/1. 73m2 LAB CHEMISTRY METHOD 09/07/2024 9:18 AM [facility] Comment:Calculation based on the Chronic Kidney Disease Epidemiology Collaboration (CKD-EPI) equation refit without adjustment for race. BUN/Creatinine Ratio 18.8 LAB CHEMISTRY METHOD 09/07/2024 9:18 AM [facility] Calcium 9.0 8.5 - 10.5 mg/dL LAB CHEMISTRY METHOD 09/07/2024 9:18 AM [facility] AST (SGOT) 17 10 - 42 unit/L LAB CHEMISTRY METHOD 09/07/2024 9:18 AM [facility] ALT (SGPT) 20 10 - 60 unit/L LAB CHEMISTRY METHOD 09/07/2024 9:18 AM [facility] Alkaline Phosphatase 60 42 - 121 unit/L LAB CHEMISTRY METHOD 09/07/2024 9:18 AM [facility] Total Protein 6.9 6.0 - 8.0 g/dL LAB CHEMISTRY METHOD 09/07/2024 9:18 AM [facility] Albumin 3.0(L) 3.2 - 5.0 g/dL LAB CHEMISTRY METHOD 09/07/2024 9:18 AM [facility] Total Bilirubin 0.5 0.0 - 1.4 mg/dL LAB CHEMISTRY METHOD 09/07/2024 9:18 AM [facility] Blood Venous blood specimen / Unknown Venipuncture / Unknown 09/07/2024 6:24 AM EST 09/07/2024 8:12 AM EST us Amina Burciaga MD LAB BLOOD ORDERABLES Final Resul t [facility] [address] [place] [address], * (ABNORMAL) Complete blood count (09/07/2024 6:24 AM EST) [facility] Signature WBC 4.7(L) 4.8 - 10.8 K/mcL LAB HEMETOLOGY METHOD 09/07/2024 8:53 AM [facility] RBC 3.00(L) 3.80 - 4.80 M/mcL LAB HEMETOLOGY METHOD 09/07/2024 8:53 AM [facility] Hemoglobin 8.9(L) 11.5 - 16.0 g/dL LAB HEMETOLOGY METHOD 09/07/2024 8:53 AM [facility] Hematocrit 30.6(L) 35.0 - 47.0 % LAB HEMETOLOGY METHOD 09/07/2024 8:53 AM [facility] MCV 101.7(H) 79.0 - 98.0 FL LAB HEMETOLOGY METHOD 09/07/2024 8:53 AM [facility] MCH 29.6 27.0 - 32.0 pcg LAB HEMETOLOGY METHOD 09/07/2024 8:53 AM [facility] MCHC 29.1(L) 32.0 - 37.0 g/dL LAB HEMETOLOGY METHOD 09/07/2024 8:53 AM [facility] RDW 20.1(H) 11.0 - 15.0 % LAB HEMETOLOGY METHOD 09/07/2024 8:53 AM [facility] Platelets 196 130 - 400 K/mcL LAB HEMETOLOGY METHOD 09/07/2024 8:53 AM [facility] MPV 10.0 7.0 - 11.0 FL LAB HEMETOLOGY METHOD 09/07/2024 8:53 AM [facility] NRBC 0.0 <1.0 % LAB HEMETOLOGY METHOD 09/07/2024 8:53 AM EST [facility] NRBC Absolute 0.00 <0.10 K/mcL LAB HEMETOLOGY METHOD 09/07/2024 8:53 AM EST [facility] Blood Venous blood specimen / Unknown Venipuncture / Unknown 09/07/2024 6:24 AM EST 09/07/2024 8:12 AM EST us Amina Burciaga MD LAB BLOOD ORDERABLES Final Resul t [facility] [address] [place] [address], documented in this encounter Visit Diagnoses Diagnosis Heart failure, unspecified (CMS/HCC V24, CMS/HCC V28) Heart failure, unspecified Chronic kidney disease, unspecified Type 2 diabetes mellitus without complications (CMS/HCC V24, CMS/HCC V28) documented in this encounter Care Teams Nuclear Medicine Chief Technologist Relationship Specialty Start Date End Date Amina Burciaga MD [address] [place] [address] PCP - General Hospitalist Medicine 09/11/24 documented as of this encounter
--- OUTSIDE RECORDS SUMMARY | 2025-06-08 07:01 | XMS_ITS | Encounter Summary ---
Author Organization [facility] Address [address] [place] [address] Care Team Providers Care Insulation Board Calender Operator Name Role Phone Amina Burciaga MD Primary Care Provider [phone] Encounter Details Date Type Department Care Team (Latest Contact Info) Description 09/23/2024 Lab Requisition [facility] - Main Lab 299 [facility] [employer] [address] Amina Burciaga MD [address] [place] [address] Type 2 diabetes mellitus with [...] MD LAB BLOOD ORDERABLES Final Resul t [facility] [address] [place] [address], * (ABNORMAL) Comprehensive metabolic panel (09/23/2024 8:20 AM EST) Pathologist [facility] Sodium 140 133 - 145 mmol/L [...] MD LAB BLOOD ORDERABLES Final Resul t [facility] [address] [place] [address], * (ABNORMAL) Complete blood count (09/23/2024 8:20 AM EST) [facility] WBC 6.2 4.8 - 10.8 K/mcL LAB [...] LAB HEMETOLOGY METHOD 09/23/2024 12:38 PM EST [facility] NRBC Absolute 0.00 <0.10 K/mcL LAB HEMETOLOGY METHOD 09/23/2024 12:38 PM EST [facility] Blood Venous blood specimen / Unknown Venipuncture / Unknown 09/23/2024 8:20 AM EST 09/23/2024 12:06 PM EST us Amina Burciaga MD LAB BLOOD ORDERABLES Final Resul t [facility] [address] [place] [address], documented in this encounter Visit Diagnoses Diagnosis Type 2 diabetes mellitus with unspecified complications (CMS/HCC V24, CMS/HCC V28) Unspecified systolic (congestive) heart failure (CMS/HCC V24, CMS/HCC V28) documented in this encounter Care Teams Insulation Board Calender Operator Relationship Specialty Start Date End Date Amina Burciaga MD [address] [place] [address] PCP - General Hospitalist Medicine 09/11/24 documented as of this encounter
--- OUTSIDE RECORDS SUMMARY | 2025-06-08 07:01 | XMS_ITS | Encounter Summary ---
Author Organization [facility] Address [address] [place] [address] Care Team Providers Care Forest Fire Control Officer Name Role Phone Amina Burciaga MD Primary Care Provider [phone] Encounter Details Date Type Department Care Team (Late st Contact Info) Description 09/30/2024 Lab Requisition [facility] - Main Lab 299 [facility] [place] [address] Isaac Stark MD [address] [place] [address] [place] [address] Heart failure, unspecified [...] (ABNORMAL) Vitamin B12 (09/30/2024 9:57 AM EST) [facility] Vitamin B-12 1,028(H) 250 - 900 pcg/mL LAB CHEMISTRY METHOD 09/30/2024 1:04 PM [facility] Blood Venous blood specimen / Unknown Venipuncture / Unknown 09/30/2024 9:57 AM EST 09/30/2024 10:50 AM EST us Isaac Stark MD LAB BLOOD ORDERABLES Final Resu lt [facility] [address] [place] [address], [place] [phone] * (ABNORMAL) Comprehensive metabolic panel (09/30/2024 9:57 AM EST) [facility] Sodium 138 133 - 145 mmol/L LAB CHEMISTRY METHOD 09/30/2024 1:04 PM [facility] Potassium 3.7 3.5 - 5.5 mmol/L LAB CHEMISTRY METHOD 09/30/2024 1:04 PM [facility] Chloride 100 96 - 110 mmol/L LAB CHEMISTRY METHOD 09/30/2024 1:04 PM [facility] CO2 31 21 - 32 mmol/L LAB CHEMISTRY METHOD 09/30/2024 1:04 PM [facility] Anion Gap 7 3 - 11 LAB CHEMISTRY METHOD 09/30/2024 1:04 PM [facility] Glucose 228(H) 70 - 100 mg/dL LAB CHEMISTRY METHOD 09/30/2024 1:04 PM [facility] BUN 90(H) 5 - 25 mg/dL LAB CHEMISTRY METHOD 09/30/2024 1:04 PM [facility] Creatinine 2.19(H) 0.50 - 1.10 mg/dL LAB CHEMISTRY METHOD 09/30/2024 1:04 PM [facility] eGFR 23(L) >=60 mL/min/1. 73m2 LAB CHEMISTRY METHOD 09/30/2024 1:04 PM [facility] Comment:Calculation based on the Chronic Kidney Disease Epidemiology Collaboration (CKD-EPI) equation refit without adjustment for race. BUN/Creatinine Ratio 41.1 LAB CHEMISTRY METHOD 09/30/2024 1:04 PM [facility] Calcium 8.9 8.5 - 10.5 mg/dL LAB CHEMISTRY METHOD 09/30/2024 1:04 PM [facility] AST (SGOT) 22 10 - 42 unit/L LAB CHEMISTRY METHOD 09/30/2024 1:04 PM [facility] ALT (SGPT) 28 10 - 60 unit/L LAB CHEMISTRY METHOD 09/30/2024 1:04 PM [facility] Alkaline Phosphatase 47 42 - 121 unit/L LAB CHEMISTRY METHOD 09/30/2024 1:04 PM [facility] Total Protein 6.2 6.0 - 8.0 g/dL LAB CHEMISTRY METHOD 09/30/2024 1:04 PM [facility] Albumin 2.7(L) 3.2 - 5.0 g/dL LAB CHEMISTRY METHOD 09/30/2024 1:04 PM [facility] Total Bilirubin 0.6 0.0 - 1.4 mg/dL LAB CHEMISTRY METHOD 09/30/2024 1:04 PM [facility] Blood Venous blood specimen / Unknown Venipuncture / Unknown 09/30/2024 9:57 AM EST 09/30/2024 10:50 AM EST us Isaac Stark MD LAB BLOOD ORDERABLES Final Resu lt [facility] [address] [place] [address], * (ABNORMAL) Complete blood count (09/30/2024 9:57 AM EST) [facility] WBC 5.9 4.8 - 10.8 K/mcL LAB HEMETOLOGY METHOD 09/30/2024 12:25 PM [facility] RBC 3.80 3.80 - 4.80 M/mcL LAB HEMETOLOGY METHOD 09/30/2024 12:25 PM [facility] Hemoglobin 11.2(L) 11.5 - 16.0 g/dL LAB HEMETOLOGY METHOD 09/30/2024 12:25 PM [facility] Hematocrit 37.7 35.0 - 47.0 % LAB HEMETOLOGY METHOD 09/30/2024 12:25 PM [facility] MCV 98.2(H) 79.0 - 98.0 FL LAB HEMETOLOGY METHOD 09/30/2024 12:25 PM [facility] MCH 29.2 27.0 - 32.0 pcg LAB HEMETOLOGY METHOD 09/30/2024 12:25 PM [facility] MCHC 29.7(L) 32.0 - 37.0 g/dL LAB HEMETOLOGY METHOD 09/30/2024 12:25 PM [facility] RDW 17.7(H) 11.0 - 15.0 % LAB HEMETOLOGY METHOD 09/30/2024 12:25 PM [facility] Platelets 183 130 - 400 K/mcL LAB HEMETOLOGY METHOD 09/30/2024 12:25 PM [facility] MPV 11.7(H) 7.0 - 11.0 FL LAB HEMETOLOGY METHOD 09/30/2024 12:25 PM [facility] NRBC 0.0 <1.0 % LAB HEMETOLOGY METHOD 09/30/2024 12:25 PM [facility] NRBC Absolute 0.00 <0.10 K/mcL LAB HEMETOLOGY METHOD 09/30/2024 12:25 PM EST [facility] Blood Venous blood specimen / Unknown Venipuncture / Unknown 09/30/2024 9:57 AM EST 09/30/2024 10:50 AM EST us Isaac Stark MD LAB BLOOD ORDERABLES Final Resu lt Performing Organization Address City/[facility]/ZIP Co de Phone Number [facility] [address] [place] [address], [place] [phone] * Vitamin D 25 hydroxy (09/30/2024 9:57 AM EST) Vit D, 25-Hydroxy 54.9 30.0 - 80.0 ng/mL LAB CHEMISTRY METHOD 09/30/2024 12:48 PM EST [facility] Blood Venous blood specimen / Unknown Venipuncture / Unknown 09/30/2024 9:57 AM EST 09/30/2024 10:50 AM EST us Isaac Stark MD LAB BLOOD ORDERABLES Final Resu lt Performing Organization Address [facility]/ZIP Co de Phone Number [facility] [address] [place] [address], [place] [phone] documented in this encounter Visit Diagnoses Diagnosis Heart failure, unspecified (CMS/HCC V24, CMS/HCC V28) Heart failure, unspecified Vitamin D deficiency, unspecified documented in this encounter Care Teams Forest Fire Control Officer Relationship Specialty Start Date End Date Amina Burciaga MD [address] [place] [phone] PCP - General Hospitalist Medicine 09/11/24 documented as of this encounter
--- OUTSIDE RECORDS SUMMARY | 2025-06-08 07:01 | XMS_ITS | Encounter Summary ---
Author Organization [facility], Address [address] [place] [address] Phone Care Team Providers Care Breast Surgeon Name Role Phone Dandre Chavez MD Primary Care Provider [phone] Encounter Details Date Type Department Care Team (Late st Contact Info) Description 09/07/2022 Documentation Only [facility], [address] [place] [address] Faina Villegas PA Social History Tobacco Use [...] on filedocumented in this encounter Care Teams Breast Surgeon Relationship Specialty Start Date End Date Dandre Chavez MD [address] [place] [address], [address] [place], [place] PCP - General 07/07/19 documented as of this encounter
--- OUTSIDE RECORDS SUMMARY | 2025-06-08 07:01 | XMS_ITS | Clinical Summary ---
Author Organization [facility] Address [address] [place] [address] Care Team Providers Care Production Underwriter Name Role Phone Dandre Chavez MD Primary Care Provider [phone] Allergies Active Allergy Reactions Criticality Noted Date [...] age to complete this topic Care Teams Production Underwriter Relationship Specialty Start Date End Date Dandre Chavez MD [address] [place] [address] [place] [phone] PCP - General Internal Medicine 11/06/22
--- OUTSIDE RECORDS SUMMARY | 2025-06-08 07:01 | XMS_ITS | Encounter Summary ---
Author Organization [facility], Address [address] [place] [address] Phone Care Team Providers Care Equipment Maintenance Technician Name Role Phone Dandre Chavez MD Primary Care Provider [phone] Encounter Details Date Type Department Care Team (Late st Contact Info) Description 12/31/2022 Documentation Only [facility], [address] [place] [address] Melissa Delgadillo [address] [place] [phone] Social History Tobacco Use Types Packs/Day Years [...] on filedocumented in this encounter Care Teams Equipment Maintenance Technician Relationship Specialty Start Date End Date Dandre Chavez MD [address] [place] [address], [address] [place], [place] PCP - General 07/07/19 documented as of this encounter
--- OUTSIDE RECORDS SUMMARY | 2025-06-08 07:01 | XMS_ITS | Encounter Summary ---
Author Organization [facility], Address [address] [place] [address] Phone Care Team Providers Care Property Assessment Monitor Name Role Phone Dandre Chavez MD Primary Care Provider [phone] Encounter Details Date Type Department Care Team (Late st Contact Info) Description 08/02/2022 Documentation Only [facility], [address] [place] [address] Faina Villegas PA Social History Tobacco Use [...] on filedocumented in this encounter Care Teams Property Assessment Monitor Relationship Specialty Start Date End Date Dandre Chavez MD [address] [place] [address], [address] [place], [place] PCP - General 07/07/19 documented as of this encounter
--- OUTSIDE RECORDS SUMMARY | 2025-06-08 07:01 | XMS_ITS | Encounter Summary ---
Author Organization [facility], Address [address] [place] [address] Phone Care Team Providers Care And Drying Supervisor Cooking Casing Name Role Phone Dandre Chavez MD Primary Care Provider [phone] Encounter Details Date Type Department Care Team (Late st Contact Info) Description 10/12/2021 Documentation Only [facility], [address] [place] [address] Faina Villegas PA Social History Tobacco Use [...] on filedocumented in this encounter Care Teams And Drying Supervisor Cooking Casing Relationship Specialty Start Date End Date Dandre Chavez MD [address] [place] [address], [address] [place], [place] PCP - General 07/07/19 documented as of this encounter
--- OUTSIDE RECORDS SUMMARY | 2025-06-08 07:01 | XMS_ITS | Encounter Summary ---
Author Organization [facility], Address [address] [place] [address] Phone Care Team Providers Care User Experience Analyst Name Role Phone Dandre Chavez MD Primary Care Provider [phone] Encounter Details Date Type Department Care Team (Late st Contact Info) Description 02/09/2022 Documentation Only [facility], [address] [place] [address] Faina Villegas PA Social History Tobacco Use [...] on filedocumented in this encounter Care Teams User Experience Analyst Relationship Specialty Start Date End Date Dandre Chavez MD [address] [place] [address], [address] [place], [place] PCP - General 07/07/19 documented as of this encounter
--- OUTSIDE RECORDS SUMMARY | 2025-06-08 07:01 | XMS_ITS | Clinical Summary ---
Author Organization [address] Address [address] [place] [address] Phone Care Team Providers Care Mri Assistant Name Role Phone Amina Burciaga MD Primary Care Provider [phone] Immunizations Immunization Administration Dates Next Due Pfizer [...] LAB CHEMISTRY METHOD 09/30/2024 1:04 PM EST [facility] Total Protein 6.2 6.0 - [...] ORDERABLES Final Resu lt Performing Organization Address City/[facility]/ZIP Co de Phone Number [facility] [address] [place] [address], [place] [phone] * Hemoglobin A1c (09/23/2024 8:20 AM EST) [...] ORDERABLES Final Resul t Performing Organization Address City/[facility]/ZIP Co de Phone Number [facility] [address] [place] [address], [place] [phone] from Last 3 Months or Most Recently Relevant to Health Maintenance Insurance MEDICA[place] [employer] Care Teams Mri Assistant Relationship Specialty Start Date End Date Amina Burciaga MD [address] [place] [address] PCP - General Hospitalist Medicine 09/11/24
--- OUTSIDE RECORDS SUMMARY | 2025-06-08 07:01 | XMS_ITS | Encounter Summary ---
Author Organization [facility], Address [address] [place] [address] Phone Care Team Providers Care Account Services Analyst Name Role Phone Dandre Chavez MD Primary Care Provider [phone] Encounter Details Date Type Department Care Team (Late st Contact Info) Description 08/06/2023 Documentation Only [facility], [address] [place] [address] Desi Rodriguez Social History Tobacco Use Types [...] filedocumented in this encounter Care Teams Account Services Analyst Relationship Specialty Start Date End Date Dandre Chavez MD [address] [place] [address], [address] [place], [place] PCP - General 07/07/19 documented as of this encounter
--- OUTSIDE RECORDS SUMMARY | 2025-06-08 07:01 | XMS_ITS | Encounter Summary ---
Author Organization [facility], Address [address] [place] [address] Phone Care Team Providers Care Pet House Sitter Name Role Phone Dandre Chavez MD Primary Care Provider [phone] Encounter Details Date Type Department Care Team (Late st Contact Info) Description 09/25/2021 Documentation Only [facility], [address] [place] [address] Faina Villegas PA Social History Tobacco Use [...] on filedocumented in this encounter Care Teams Pet House Sitter Relationship Specialty Start Date End Date Dandre Chavez MD [address] [place] [address], [address] [place], [place] PCP - General 07/07/19 documented as of this encounter
--- OUTSIDE RECORDS SUMMARY | 2025-06-08 07:01 | XMS_ITS | Encounter Summary ---
Author Organization [facility], Address [address] [place] [address] Phone Care Team Providers Care Hands And Dial Inspector Name Role Phone Dandre Chavez MD Primary Care Provider [phone] Encounter Details Date Type Department Care Team (Late st Contact Info) Description 02/09/2022 Documentation Only [facility], [address] [place] [address] Faina Villegas PA Social History Tobacco Use [...] on filedocumented in this encounter Care Teams Hands And Dial Inspector Relationship Specialty Start Date End Date Dandre Chavez MD [address] [place] [address], [address] [place], [place] PCP - General 07/07/19 documented as of this encounter
--- OUTSIDE RECORDS SUMMARY | 2025-06-08 07:02 | XMS_ITS | Encounter Summary ---
Author Organization [facility] Address [address] [place] [address] Care Team Providers Care Blood Bank Worker Name Role Phone Amina Burciaga MD Primary Care Provider Encounter Details Date Type Department Care Team (Late st Contact Info) Description 07/13/2024 Lab Requisition [facility] - Main Lab 299 [facility] [place] [address] Hortencia Mcclellan MD [address] [id number] Type 2 diabetes mellitus without complications (CMS/HCC [...] mmol/L LAB CHEMISTRY METHOD 07/14/2024 9:03 AM [facility] Potassium 3.8 3.5 - 5.5 mmol/L LAB CHEMISTRY METHOD 07/14/2024 9:03 AM [facility] Chloride 105 96 - 110 mmol/L LAB CHEMISTRY METHOD 07/14/2024 9:03 AM [facility] CO2 28 21 - 32 mmol/L LAB CHEMISTRY METHOD 07/14/2024 9:03 AM [facility] Anion Gap 6 3 - 11 LAB CHEMISTRY METHOD 07/14/2024 9:03 AM [facility] Glucose 105(H) 70 - 100 mg/dL LAB CHEMISTRY METHOD 07/14/2024 9:03 AM [facility] BUN 70(H) 5 - 25 mg/dL LAB CHEMISTRY METHOD 07/14/2024 9:03 AM [facility] Creatinine 3.26(H) 0.50 - 1.10 mg/dL LAB CHEMISTRY METHOD 07/14/2024 9:03 AM [facility] eGFR 14(L) >=60 mL/min/1. 73m2 LAB CHEMISTRY METHOD 07/14/2024 9:03 AM [facility] Comment:Calculation based on the Chronic Kidney Disease Epidemiology Collaboration (CKD-EPI) equation refit without adjustment for race. BUN/Creatinine Ratio 21.5 LAB CHEMISTRY METHOD 07/14/2024 9:03 AM [facility] Calcium 8.6 8.5 - 10.5 mg/dL LAB CHEMISTRY METHOD 07/14/2024 9:03 AM [facility] Blood Venous blood specimen / Unknown Venipuncture / Unknown 07/14/2024 6:08 AM EST 07/14/2024 8:03 AM EST us Hortencia Mcclellan MD LAB BLOOD ORDERABLES Fin al Result [facility] [address] [place] [address], * (ABNORMAL) Complete blood count (07/14/2024 6:08 AM EST) [facility] WBC 5.3 4.8 - 10.8 K/mcL LAB HEMETOLOGY METHOD 07/14/2024 8:32 AM [facility] RBC 3.00(L) 3.80 - 4.80 M/mcL LAB HEMETOLOGY METHOD 07/14/2024 8:32 AM [facility] Hemoglobin 8.3(L) 11.5 - 16.0 g/dL LAB HEMETOLOGY METHOD 07/14/2024 8:32 AM [facility] Hematocrit 29.9(L) 35.0 - 47.0 % LAB HEMETOLOGY METHOD 07/14/2024 8:32 AM [facility] MCV 101.4(H) 79.0 - 98.0 FL LAB HEMETOLOGY METHOD 07/14/2024 8:32 AM [facility] MCH 28.1 27.0 - 32.0 pcg LAB HEMETOLOGY METHOD 07/14/2024 8:32 AM [facility] MCHC 27.8(L) 32.0 - 37.0 g/dL LAB HEMETOLOGY METHOD 07/14/2024 8:32 AM [facility] RDW 20.0(H) 11.0 - 15.0 % LAB HEMETOLOGY METHOD 07/14/2024 8:32 AM [facility] Platelets 198 130 - 400 K/mcL LAB HEMETOLOGY METHOD 07/14/2024 8:32 AM [facility] MPV 10.3 7.0 - 11.0 FL LAB HEMETOLOGY METHOD 07/14/2024 8:32 AM [facility] LAB NRBC [...] al Result [facility] [address] [place] [address], documented in this encounter Visit Diagnoses Diagnosis Type 2 diabetes mellitus without complications (CMS/HCC V24, CMS/HCC V28) Heart failure, unspecified (CMS/HCC V24, CMS/HCC V28) Heart failure, unspecified documented in this encounter Care Teams Blood Bank Worker Relationship Specialty Start Date End Date Amina Burciaga MD [address] [place] [address] PCP - General Hospitalist Medicine 09/11/24 documented as of this encounter
--- OUTSIDE RECORDS SUMMARY | 2025-06-08 07:02 | XMS_ITS | Encounter Summary ---
Author Organization [facility] Address [address] [place] [address] Care Team Providers Care Circuit Board Repair Technician Name Role Phone Amina Burciaga MD Primary Care Provider [phone] Encounter Details Date Type Department Care Team (Late st Contact Info) Description 08/10/2024 Lab Requisition [facility] - Main Lab [address] [facility] [employer] [address] Hortencia Mcclellan MD [address] [id number] Type 2 diabetes mellitus without complications (CMS/HCC [...] unspecified documented in this encounter Care Teams Circuit Board Repair Technician Relationship Specialty Start Date End Date Amina Burciaga MD [address] [place] [address] PCP - General Hospitalist Medicine 09/11/24 documented as of this encounter
--- OUTSIDE RECORDS SUMMARY | 2025-06-08 07:02 | XMS_ITS | Encounter Summary ---
Author Organization [facility] Address [address] [place] [address] Care Team Providers Care Market President Name Role Phone Amina Burciaga MD Primary Care Provider [phone] Encounter Details Date Type Department Care Team (Late st Contact Info) Description 07/10/2024 Lab Requisition [facility] - Main Lab 299 [facility] [place] [address] Lloyd Jernigan MD [address] [place] [address] Unspecified dementia, unspecified severity, without behavioral disturbance, [...] mmol/L LAB CHEMISTRY METHOD 07/10/2024 9:59 AM [facility] Potassium 4.4 3.5 - 5.5 mmol/L LAB CHEMISTRY METHOD 07/10/2024 9:59 AM [facility] Chloride 103 96 - 110 mmol/L LAB CHEMISTRY METHOD 07/10/2024 9:59 AM [facility] LAB CO2 31 21 - 32 mmol/L LAB CHEMISTRY METHOD 07/10/2024 9:59 AM [facility] Anion Gap 5 3 - 11 LAB CHEMISTRY METHOD 07/10/2024 9:59 AM [facility] Glucose 115(H) 70 - 100 mg/dL LAB CHEMISTRY METHOD 07/10/2024 9:59 AM [facility] BUN 62(H) 5 - 25 mg/dL LAB CHEMISTRY METHOD 07/10/2024 9:59 AM [facility] Creatinine 2.86(H) 0.50 - 1.10 mg/dL LAB CHEMISTRY METHOD 07/10/2024 9:59 AM [facility] eGFR 16(L) >=60 mL/min/1. 73m2 LAB CHEMISTRY METHOD 07/10/2024 9:59 AM [facility] Comment:Calculation based on the Chronic Kidney Disease Epidemiology Collaboration (CKD-EPI) equation refit without adjustment for race. BUN/Creatinine Ratio 21.7 LAB CHEMISTRY METHOD 07/10/2024 9:59 AM [facility] Calcium 9.3 8.5 - 10.5 mg/dL LAB CHEMISTRY METHOD 07/10/2024 9:59 AM [facility] Blood Venous blood specimen / Unknown Venipuncture / Unknown 07/10/2024 6:29 AM EST 07/10/2024 9:00 AM EST us Lloyd Jernigan MD LAB BLOOD ORDERABLES Final R esult [facility] [address] [place] [address], * (ABNORMAL) Complete blood count (07/10/2024 6:29 AM EST) WBC 5.3 4.8 - 10.8 K/mcL LAB HEMETOLOGY METHOD 07/10/2024 9:47 AM [facility] RBC 3.20(L) 3.80 - 4.80 M/mcL LAB HEMETOLOGY METHOD 07/10/2024 9:47 AM [facility] Hemoglobin 8.9(L) 11.5 - 16.0 g/dL LAB HEMETOLOGY METHOD 07/10/2024 9:47 AM [facility] Hematocrit 32.0(L) 35.0 - 47.0 % LAB HEMETOLOGY METHOD 07/10/2024 9:47 AM [facility] MCV 101.6(H) 79.0 - 98.0 FL LAB HEMETOLOGY METHOD 07/10/2024 9:47 AM [facility] MCH 28.3 27.0 - 32.0 pcg LAB HEMETOLOGY METHOD 07/10/2024 9:47 AM [facility] MCHC 27.8(L) 32.0 - 37.0 g/dL LAB HEMETOLOGY METHOD 07/10/2024 9:47 AM [facility] RDW 20.3(H) 11.0 - 15.0 % LAB HEMETOLOGY METHOD 07/10/2024 9:47 AM [facility] Platelets 239 130 - 400 K/mcL LAB HEMETOLOGY METHOD 07/10/2024 9:47 AM [facility] MPV 10.2 7.0 - 11.0 FL LAB HEMETOLOGY METHOD 07/10/2024 9:47 AM EST [facility] NRBC 0.0 <1.0 % LAB HEMETOLOGY METHOD 07/10/2024 9:47 AM EST [facility] NRBC Absolute 0.00 <0.10 K/mcL LAB HEMETOLOGY METHOD 07/10/2024 9:47 AM EST [facility] Blood Venous blood specimen / Unknown Venipuncture / Unknown 07/10/2024 6:29 AM EST 07/10/2024 9:00 AM EST Lloyd Jernigan MD LAB BLOOD ORDERABLES Final R esult Performing Organization Address City/[facility]/ZIP Co de Phone Number [facility] [address] [place] [address], [place] [phone] * Hemoglobin A1c (07/10/2024 6:29 AM EST) Hemoglobin A1C 5.7 <6.5 % LAB CHEMISTRY METHOD 07/10/2024 1:42 PM EST [facility] Mean Bld Glu Estim. 117 mg/dL LAB CHEMISTRY METHOD 07/10/2024 1:42 PM EST [facility] Blood Venous blood specimen / Unknown Venipuncture / Unknown 07/10/2024 6:29 AM EST 07/10/2024 9:00 AM EST Lloyd Jernigan MD LAB BLOOD ORDERABLES Final R esult [facility] [address] [place] [address], [place] [phone] documented in this encounter Visit Diagnoses Diagnosis Unspecified dementia, unspecified severity, without behavioral disturbance, psychotic disturbance, mood disturbance, and anxiety (CMS/HCC V24, CMS/HCC V28) documented in this encounter Care Teams Market President Relationship Specialty Start Date End Date Amina Burciaga MD [address] [place] [address] PCP - General Hospitalist Medicine 09/11/24 documented as of this encounter
--- OUTSIDE RECORDS SUMMARY | 2025-06-08 07:02 | XMS_ITS | Encounter Summary ---
Author Organization [facility] Address [address] [place] [address] Care Team Providers Care Assistant Finance Manager Name Role Phone Amina Burciaga MD Primary Care Provider [phone] Encounter Details Date Type Department Care Team (Late st Contact Info) Description 07/20/[address] [facility] - Main Lab 299 [facility] [place] [address] Hortencia Mcclellan MD 819 [facility] 1 [place], [place] [id number] Type 2 diabetes mellitus without complications (CMS/HCC [...] Result [facility] [address] [place] [address], * (ABNORMAL) Complete blood count (07/21/2024 5:53 AM EST) [facility] WBC 5.0 4.8 - 10.8 K/mcL LAB [...] Result [facility] [address] [place] [address], documented in this encounter Visit Diagnoses Diagnosis Type 2 diabetes mellitus without complications (CMS/HCC V24, CMS/HCC V28) Heart failure, unspecified (CMS/HCC V24, CMS/HCC V28) Heart failure, unspecified documented in this encounter Care Teams Assistant Finance Manager Relationship Specialty Start Date End Date Amina Burciaga MD [address] [place] [address] PCP - General Hospitalist Medicine 09/11/24 documented as of this encounter
--- OUTSIDE RECORDS SUMMARY | 2025-06-08 07:02 | XMS_ITS | Encounter Summary ---
Author Organization [facility] Address [address] [place] [address] Care Team Providers Care Safekeeping Clerk Name Role Phone Amina Burciaga MD Primary Care Provider [phone] Encounter Details Date Type Department Care Team (Late st Contact Info) Description 07/27/2024 Lab Requisition [facility] - Main Lab [address] [facility] [address] Hortencia Mcclellan MD [address] [id number] Type 2 diabetes mellitus without complications (CMS/HCC [...] mmol/L LAB CHEMISTRY METHOD 07/28/2024 8:47 AM [facility] Potassium 4.3 3.5 - 5.5 mmol/L LAB CHEMISTRY METHOD 07/28/2024 8:47 AM [facility] Chloride 107 96 - 110 mmol/L LAB CHEMISTRY METHOD 07/28/2024 8:47 AM [facility] CO2 25 21 - 32 mmol/L LAB CHEMISTRY METHOD 07/28/2024 8:47 AM [facility] Anion Gap 10 3 - 11 LAB CHEMISTRY METHOD 07/28/2024 8:47 AM [facility] Glucose 49(L) 70 - 100 mg/dL LAB CHEMISTRY METHOD 07/28/2024 8:47 AM [facility] BUN 45(H) 5 - 25 mg/dL LAB CHEMISTRY METHOD 07/28/2024 8:47 AM [facility] Creatinine 2.36(H) 0.50 - 1.10 mg/dL LAB CHEMISTRY METHOD 07/28/2024 8:47 AM [facility] eGFR 21(L) >=60 mL/min/1. 73m2 LAB CHEMISTRY METHOD 07/28/2024 8:47 AM [facility] Comment:Calculation based on the Chronic Kidney Disease Epidemiology Collaboration (CKD-EPI) equation refit without adjustment for race. BUN/Creatinine Ratio 19.1 LAB CHEMISTRY METHOD 07/28/2024 8:47 AM [facility] Calcium 9.2 8.5 - 10.5 mg/dL LAB CHEMISTRY METHOD 07/28/2024 8:47 AM [facility] Blood Venous blood specimen / Unknown Venipuncture / Unknown 07/28/2024 5:41 AM EST 07/28/2024 8:02 AM EST us Hortencia Mcclellan MD LAB BLOOD ORDERABLES Fin al Result [facility] [address] [place] [address], * (ABNORMAL) Complete blood count (07/28/2024 5:41 AM EST) [facility] WBC 4.1(L) 4.8 - 10.8 K/mcL LAB HEMETOLOGY METHOD 07/28/2024 8:20 AM [facility] RBC 3.00(L) 3.80 - 4.80 M/mcL LAB HEMETOLOGY METHOD 07/28/2024 8:20 AM [facility] Hemoglobin 8.6(L) 11.5 - 16.0 g/dL LAB HEMETOLOGY METHOD 07/28/2024 8:20 AM [facility] Hematocrit 29.9(L) 35.0 - 47.0 % LAB HEMETOLOGY METHOD 07/28/2024 8:20 AM [facility] MCV 99.7(H) 79.0 - 98.0 FL LAB HEMETOLOGY METHOD 07/28/2024 8:20 AM [facility] MCH 28.7 27.0 - 32.0 pcg LAB HEMETOLOGY METHOD 07/28/2024 8:20 AM [facility] MCHC 28.8(L) 32.0 - 37.0 g/dL LAB HEMETOLOGY METHOD 07/28/2024 8:20 AM [facility] RDW 19.6(H) 11.0 - 15.0 % LAB HEMETOLOGY METHOD 07/28/2024 8:20 AM [facility] Platelets 162 130 - 400 K/mcL LAB HEMETOLOGY METHOD 07/28/2024 8:20 AM [facility] MPV 10.5 7.0 - 11.0 FL LAB HEMETOLOGY METHOD 07/28/2024 8:20 AM [facility] NRBC 0.0 <1.0 [...] MD LAB BLOOD ORDERABLES Fin al Result [facility] [address] [place] [address], documented in this encounter Visit Diagnoses Diagnosis Type 2 diabetes mellitus without complications (CMS/HCC V24, CMS/HCC V28) Heart failure, unspecified (CMS/HCC V24, CMS/HCC V28) Heart failure, unspecified documented in this encounter Care Teams Safekeeping Clerk Relationship Specialty Start Date End Date Amina Burciaga MD [address] [place] [address] PCP - General Hospitalist Medicine 09/11/24 documented as of this encounter
[2025-06-14 07:17] LABS: Hematocrit 27.9 % (37.0-47.0); Hemoglobin 8.0 g/dl (12.0-16.0); Imm Gran Abs Auto 0.01 X10*3/uL (0.00-0.03); Imm Gran Pct Auto 0.3 % (0.0-0.4); Lymphocytes Absolute Auto 0.4 X10*3/uL (1.2-4.9); MANUAL DIFF FLAG NO; Mean Corpuscular HGB Conc 28.7 g/dl (31.0-35.0); Mean Corpuscular Hemoglobin 27.2 pg (27.0-33.0); Mean Corpuscular Volume 94.9 fL (80.0-98.0); NRBC Abs Auto 0.000 X10*3/uL (0.0-0.012); NRBC Pct Auto 0.0 /100WBC (0.0-0.2); Platelet Count 194 X10*3/uL (160-400); Red Blood Count 2.94 X10*6/uL (4.20-5.50); White Blood Count 3.9 X10*3/uL (4.8-10.8)
--- OUTSIDE RECORDS SUMMARY | 2025-06-14 07:24 | XMS_ITS | Encounter Summary ---
Author Organization [facility] Address [address] [place] [address] Care Team Providers Care Geophysicist Name Role Phone Amina Burciaga MD Primary Care Provider [phone] Encounter Details Date Type Department Care Team (Latest Contact Info) Description 09/07/[address] [facility] - Main Lab 299 [facility] [address] [place] [address] Amina Burciaga MD [address] [place] [address] Heart failure, unspecified (CMS/HCC V24, [...] unspecified Type 2 diabetes mellitus without complications ([facility]) documented in this encounter Results * Hemoglobin A1c (09/07/2024 6:24 AM EST) Pathologist [facility] Hemoglobin A1C 5.1 <6.5 % LAB CHEMISTRY METHOD 09/07/2024 11:11 AM EST [facility] Mean Bld Glu Estim. 100 mg/dL LAB CHEMISTRY METHOD 09/07/2024 11:11 AM [facility] Blood Venous blood specimen / Unknown Venipuncture / Unknown 09/07/2024 6:24 AM EST 09/07/2024 8:12 AM EST Amina Burciaga MD LAB BLOOD ORDERABLES Final Resul t [facility] [address] [place] [address], * (ABNORMAL) Comprehensive metabolic panel (09/07/2024 6:24 AM EST) [facility] Sodium 140 133 - 145 mmol/L LAB CHEMISTRY METHOD 09/07/2024 9:18 AM [facility] Potassium 3.8 3.5 - 5.5 mmol/L LAB CHEMISTRY METHOD 09/07/2024 9:18 AM [facility] Chloride 106 96 - 110 mmol/L LAB CHEMISTRY METHOD 09/07/2024 9:18 AM [facility] CO2 28 21 - 32 mmol/L LAB CHEMISTRY METHOD 09/07/2024 9:18 AM [facility] Anion Gap 6 3 - 11 LAB CHEMISTRY METHOD 09/07/2024 9:18 AM [facility] Glucose 61(L) 70 - 100 mg/dL LAB CHEMISTRY METHOD 09/07/2024 9:18 AM [facility] BUN 59(H) 5 - 25 mg/dL LAB CHEMISTRY METHOD 09/07/2024 9:18 AM [facility] Creatinine 3.13(H) 0.50 - 1.10 mg/dL LAB CHEMISTRY METHOD 09/07/2024 9:18 AM [facility] LAB eGFR 15(L) >=60 mL/min/1. 73m2 LAB CHEMISTRY METHOD 09/07/2024 9:18 AM [facility] Comment:Calculation based on the Chronic Kidney Disease Epidemiology Collaboration (CKD-EPI) equation refit without adjustment for race. BUN/Creatinine Ratio 18.8 LAB CHEMISTRY METHOD 09/07/2024 9:18 AM [facility] Calcium 9.0 8.5 - 10.5 mg/dL LAB CHEMISTRY METHOD 09/07/2024 9:18 AM [facility] AST (SGOT) 17 10 - 42 unit/L LAB CHEMISTRY METHOD 09/07/2024 9:18 AM [facility] ALT (SGPT) 20 10 - 60 unit/L LAB CHEMISTRY METHOD 09/07/2024 9:18 AM [facility] Alkaline Phosphatase 60 42 - 121 unit/L LAB CHEMISTRY METHOD 09/07/2024 9:18 AM [facility] Total Protein 6.9 6.0 - 8.0 g/dL LAB CHEMISTRY METHOD 09/07/2024 9:18 AM [facility] Albumin 3.0(L) 3.2 - 5.0 g/dL LAB CHEMISTRY METHOD 09/07/2024 9:18 AM [facility] Total Bilirubin 0.5 0.0 - 1.4 mg/dL LAB CHEMISTRY METHOD 09/07/2024 9:18 AM [facility] Blood Venous blood specimen / Unknown Venipuncture / Unknown 09/07/2024 6:24 AM EST 09/07/2024 8:12 AM EST us Amina Burciaga MD LAB BLOOD ORDERABLES Final Resul t [facility] [address] [place] [address], * (ABNORMAL) Complete blood count (09/07/2024 6:24 AM EST) [facility] Signature WBC 4.7(L) 4.8 - 10.8 K/mcL LAB HEMETOLOGY METHOD 09/07/2024 8:53 AM [facility] RBC 3.00(L) 3.80 - 4.80 M/mcL LAB HEMETOLOGY METHOD 09/07/2024 8:53 AM [facility] Hemoglobin 8.9(L) 11.5 - 16.0 g/dL LAB HEMETOLOGY METHOD 09/07/2024 8:53 AM [facility] Hematocrit 30.6(L) 35.0 - 47.0 % LAB HEMETOLOGY METHOD 09/07/2024 8:53 AM [facility] MCV 101.7(H) 79.0 - 98.0 FL LAB HEMETOLOGY METHOD 09/07/2024 8:53 AM [facility] MCH 29.6 27.0 - 32.0 pcg LAB HEMETOLOGY METHOD 09/07/2024 8:53 AM [facility] MCHC 29.1(L) 32.0 - 37.0 g/dL LAB HEMETOLOGY METHOD 09/07/2024 8:53 AM [facility] RDW 20.1(H) 11.0 - 15.0 % LAB HEMETOLOGY METHOD 09/07/2024 8:53 AM [facility] Platelets 196 130 - 400 K/mcL LAB HEMETOLOGY METHOD 09/07/2024 8:53 AM [facility] MPV 10.0 7.0 - 11.0 FL LAB HEMETOLOGY METHOD 09/07/2024 8:53 AM [facility] NRBC 0.0 [...] MD LAB BLOOD ORDERABLES Final Resul t [facility] [address] [place] [address], documented in this encounter Visit Diagnoses Diagnosis Heart failure, unspecified (CMS/HCC V24, CMS/HCC V28) Heart failure, unspecified Chronic kidney disease, unspecified Type 2 diabetes mellitus without complications (CMS/HCC V24, CMS/HCC V28) documented in this encounter Care Teams Geophysicist Relationship Specialty Start Date End Date Amina Burciaga MD [address] [place] [address] PCP - General Hospitalist Medicine 09/11/24 documented as of this encounter
--- OUTSIDE RECORDS SUMMARY | 2025-06-14 07:24 | XMS_ITS | Encounter Summary ---
Author Organization [facility], Address [address] [place] [address] Phone Care Team Providers Care Actor Understudy Name Role Phone Dandre Chavez MD Primary Care Provider [phone] Encounter Details Date Type Department Care Team (Late st Contact Info) Description 10/30/2022 Documentation Only [facility], [address] [place] [address] Melissa Delgadillo [address] [place] [phone] Social History Tobacco Use Types Packs/Day Years [...] on filedocumented in this encounter Care Teams Actor Understudy Relationship Specialty Start Date End Date Dandre Chavez MD [address] [place] [address], [address] [place], [place] PCP - General 07/07/19 documented as of this encounter
--- OUTSIDE RECORDS SUMMARY | 2025-06-14 07:24 | XMS_ITS | Encounter Summary ---
Author Organization [facility] Address [address] [place] [address] Care Team Providers Care Car Spotter Name Role Phone Amina Burciaga MD Primary Care Provider [phone] Encounter Details Date Type Department Care Team (Late st Contact Info) Description 07/23/2024 Lab Requisition [facility] - Main Lab [address] [place] [address] Hortencia Mcclellan MD [address] [phone] Chronic kidney disease, unspecified; Type 2 diabetes [...] LAB CHEMISTRY METHOD 07/23/2024 9:13 AM EST [facility] Potassium 3.8 3.5 - 5.5 mmol/L LAB CHEMISTRY METHOD 07/23/2024 9:13 AM EST [facility] Chloride 111(H) 96 - [...] [facility] [address] [place] [address], documented in this encounter Visit Diagnoses Diagnosis Chronic kidney disease, unspecified Type 2 diabetes mellitus without complications (CMS/HCC V24, CMS/HCC V28) documented in this encounter Care Teams Car Spotter Relationship Specialty Start Date End Date Amina Burciaga MD [address] [place] [address] PCP - General Hospitalist Medicine 09/11/24 documented as of this encounter
--- OUTSIDE RECORDS SUMMARY | 2025-06-14 07:24 | XMS_ITS | Clinical Summary ---
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 DIAGNOSTIC USE: The [place] [employer] (ADA) and the World Health [...] Supplement 1 Testing performed or reported by [facility], a Service of [address] [address] Louis Fry MD, Marketing Team Lead [facility]# [id number] Blood specimen (specimen) Venous blood / Unknown 10/18/2022 2:34 PM EST 10/18/2022 2:35 PM EST us Faina LUCIANO LAB BLOOD ORDERABLES Final Res ult [facility] from Last 3 Months or Most Recently Relevant to Health Maintenance Insurance Medicare [facility] [place] [id number] Care Teams Washroom Cleaner Relationship Specialty Start Date End Date Dandre Chavez MD [address] [place] [address], [address] [place] PCP - General 07/07/19
--- OUTSIDE RECORDS SUMMARY | 2025-06-14 07:24 | XMS_ITS | Clinical Summary ---
Author Organization [facility] Address [address] [place] [address] Care Team Providers Care Coagulating Bath Operator Name Role Phone Dandre Chavez MD Primary Care Provider [phone] Allergies Active Allergy Reactions Criticality Noted Date [...] age to complete this topic Care Teams Coagulating Bath Operator Relationship Specialty Start Date End Date Dandre Chavez MD [address] [place] [address] [place] [id number] PCP - General Internal Medicine 11/06/22
--- OUTSIDE RECORDS SUMMARY | 2025-06-14 07:24 | XMS_ITS | Encounter Summary ---
Author Organization [facility] Address [address] [place] [address] Care Team Providers Care Oil Burner Journeyman Name Role Phone Amina Burciaga MD Primary Care Provider [phone] Encounter Details Date Type Department Care Team (Late st Contact Info) Description 08/10/2024 Lab Requisition [facility] - Main Lab [address] [facility] [place] [address] Hortencia Mcclellan MD [address] [id number] Type 2 diabetes mellitus without complications (CMS/HCC [...] unspecified documented in this encounter Care Teams Oil Burner Journeyman Relationship Specialty Start Date End Date Amina Burciaga MD [address] [place] [address] PCP - General Hospitalist Medicine 09/11/24 documented as of this encounter
--- OUTSIDE RECORDS SUMMARY | 2025-06-14 07:24 | XMS_ITS | Clinical Summary ---
Author Organization [address] Address [address] [place] [address] Phone Care Team Providers Care Laboratory Associate Name Role Phone Amina Burciaga MD Primary Care Provider [phone] Immunizations Immunization Administration Dates Next Due Pfizer [...] LAB CHEMISTRY METHOD 09/30/2024 1:04 PM EST [facility] Total Protein 6.2 [...] ORDERABLES Final Resu lt Performing Organization Address City/[facility]/ZIP Co de Phone Number [facility] [address] [place] [address], [place] [phone] * Hemoglobin A1c (09/23/2024 8:20 AM EST) Hemoglobin A1C 5.3 <6.5 % LAB CHEMISTRY METHOD 09/23/2024 2:17 PM [facility] Mean Bld Glu Estim. 105 mg/dL LAB CHEMISTRY METHOD 09/23/2024 2:17 PM [facility] Blood Venous blood specimen / Unknown Venipuncture / Unknown 09/23/2024 8:20 AM EST 09/23/2024 12:06 PM EST Amina Burciaga MD LAB BLOOD ORDERABLES Final Resul t Performing Organization Address City/[facility]/ZIP Co de Phone Number [facility] [address] [place] [address], [place] [phone] from Last 3 Months or Most Recently Relevant to Health Maintenance Insurance MEDICA[place] Care Teams Laboratory Associate Relationship Specialty Start Date End Date Amina Burciaga MD [address] [place] [address] PCP - General Hospitalist Medicine 09/11/24
--- OUTSIDE RECORDS SUMMARY | 2025-06-14 07:24 | XMS_ITS | Encounter Summary ---
Author Organization [facility], Address [address] [place] [address] Phone Care Team Providers Care Certified Nuclear Medicine Technologist Name Role Phone Dandre Chavez MD Primary Care Provider [phone] Encounter Details Date Type Department Care Team (Late st Contact Info) Description 08/06/2023 Documentation Only [facility], [address] [place] [address] Desi Rodriguez Social History Tobacco Use Types [...] on filedocumented in this encounter Care Teams Certified Nuclear Medicine Technologist Relationship Specialty Start Date End Date Dandre Chavez MD [address] [place] [address], [address] [place], [place] PCP - General 07/07/19 documented as of this encounter
--- OUTSIDE RECORDS SUMMARY | 2025-06-14 07:24 | XMS_ITS | Encounter Summary ---
Author Organization [facility], Address [address] [place] [address] Phone Care Team Providers Care Gold Frame Assembler Name Role Phone Dandre Chavez MD Primary Care Provider [phone] Encounter Details Date Type Department Care Team (Late st Contact Info) Description 01/08/2025 Documentation Only [facility], [address] [place] [address] Radha Chatterjee ND [address] [place] [phone] Social History Tobacco Use Types Packs/Day Years [...] on filedocumented in this encounter Care Teams Gold Frame Assembler Relationship Specialty Start Date End Date Dandre Chavez MD [address] [place] [address], [address] [place], [place] PCP - General 07/07/19 documented as of this encounter
--- OUTSIDE RECORDS SUMMARY | 2025-06-14 07:24 | XMS_ITS | Encounter Summary ---
Author Organization [facility] Address [address] [place] [address] Care Team Providers Care Pharmacoepidemiologist Name Role Phone Amina Burciaga MD Primary Care Provider [phone] Encounter Details Date Type Department Care Team (Late st Contact Info) Description 07/10/2024 Lab Requisition [facility] - Main Lab 299 [facility] [place] [address] Lloyd Jernigan MD [address] [place] [address] Unspecified dementia, unspecified severity, without behavioral disturbance, [...] mmol/L LAB CHEMISTRY METHOD 07/10/2024 9:59 AM [facility] Potassium 4.4 3.5 - 5.5 mmol/L LAB CHEMISTRY METHOD 07/10/2024 9:59 AM [facility] Chloride 103 96 - 110 mmol/L LAB CHEMISTRY METHOD 07/10/2024 9:59 AM [facility] CO2 31 21 - 32 mmol/L LAB CHEMISTRY METHOD 07/10/2024 9:59 AM [facility] Anion Gap 5 3 - 11 LAB CHEMISTRY METHOD 07/10/2024 9:59 AM [facility] Glucose 115(H) 70 - 100 mg/dL LAB CHEMISTRY METHOD 07/10/2024 9:59 AM [facility] BUN 62(H) 5 - 25 mg/dL LAB CHEMISTRY METHOD 07/10/2024 9:59 AM [facility] Creatinine 2.86(H) 0.50 - 1.10 mg/dL LAB CHEMISTRY METHOD 07/10/2024 9:59 AM [facility] eGFR 16(L) >=60 mL/min/1. 73m2 LAB CHEMISTRY METHOD 07/10/2024 9:59 AM [facility] Comment:Calculation based on the Chronic Kidney Disease Epidemiology Collaboration (CKD-EPI) equation refit without adjustment for race. BUN/Creatinine Ratio 21.7 LAB CHEMISTRY METHOD 07/10/2024 9:59 AM [facility] Calcium 9.3 8.5 - 10.5 mg/dL LAB CHEMISTRY METHOD 07/10/2024 9:59 AM [facility] Blood Venous blood specimen / Unknown Venipuncture / Unknown 07/10/2024 6:29 AM EST 07/10/2024 9:00 AM EST us Lloyd Jernigan MD LAB BLOOD ORDERABLES Final R esult [facility] [address] [place] [address], * (ABNORMAL) Complete blood count (07/10/2024 6:29 AM EST) WBC 5.3 4.8 - 10.8 K/mcL LAB HEMETOLOGY METHOD 07/10/2024 9:47 AM [facility] RBC 3.20(L) 3.80 - 4.80 M/mcL LAB HEMETOLOGY METHOD 07/10/2024 9:47 AM [facility] Hemoglobin 8.9(L) 11.5 - 16.0 g/dL LAB HEMETOLOGY METHOD 07/10/2024 9:47 AM [facility] Hematocrit 32.0(L) 35.0 - 47.0 % LAB HEMETOLOGY METHOD 07/10/2024 9:47 AM [facility] MCV 101.6(H) 79.0 - 98.0 FL LAB HEMETOLOGY METHOD 07/10/2024 9:47 AM [facility] MCH 28.3 27.0 - 32.0 pcg LAB HEMETOLOGY METHOD 07/10/2024 9:47 AM [facility] MCHC 27.8(L) 32.0 - 37.0 g/dL LAB HEMETOLOGY METHOD 07/10/2024 9:47 AM [facility] RDW 20.3(H) 11.0 - 15.0 % LAB HEMETOLOGY METHOD 07/10/2024 9:47 AM [facility] Platelets 239 130 - 400 K/mcL LAB HEMETOLOGY METHOD 07/10/2024 9:47 AM [facility] MPV 10.2 7.0 [...] ORDERABLES Final R esult Performing Organization Address City/[facility]/ZIP Co de Phone Number [facility] [address] [place] [address], [place] [phone] * Hemoglobin A1c (07/10/2024 6:29 AM EST) [...] R esult [facility] [address] [place] [address], [place] [phone] documented in this encounter Visit Diagnoses Diagnosis Unspecified dementia, unspecified severity, without behavioral disturbance, psychotic disturbance, mood disturbance, and anxiety (CMS/HCC V24, CMS/HCC V28) documented in this encounter Care Teams Pharmacoepidemiologist Relationship Specialty Start Date End Date Amina Burciaga MD [address] [place] [address] PCP - General Hospitalist Medicine 09/11/24 documented as of this encounter
--- OUTSIDE RECORDS SUMMARY | 2025-06-14 07:24 | XMS_ITS | Encounter Summary ---
Author Organization [facility] Address [address] [place] [address] Care Team Providers Care Technical Publications Writer Name Role Phone Amina Burciaga MD Primary Care Provider [phone] Encounter Details Date Type Department Care Team (Late st Contact Info) Description 07/13/[address] [facility] - Main Lab 299 [facility] [place] [address] Hortencia Mcclellan MD [address] [id number] Type 2 diabetes mellitus without complications (CMS/HCC [...] LAB CHEMISTRY METHOD 07/14/2024 9:03 AM [facility] Potassium 3.8 3.5 - 5.5 mmol/L LAB CHEMISTRY METHOD 07/14/2024 9:03 AM [facility] Chloride 105 96 - 110 mmol/L LAB CHEMISTRY METHOD 07/14/2024 9:03 AM [facility] CO2 28 21 - 32 mmol/L LAB CHEMISTRY METHOD 07/14/2024 9:03 AM [facility] Anion Gap 6 3 - 11 LAB CHEMISTRY METHOD 07/14/2024 9:03 AM [facility] Glucose 105(H) 70 - 100 mg/dL LAB CHEMISTRY METHOD 07/14/2024 9:03 AM [facility] BUN 70(H) 5 - 25 mg/dL LAB CHEMISTRY METHOD 07/14/2024 9:03 AM [facility] Creatinine 3.26(H) 0.50 - 1.10 mg/dL LAB CHEMISTRY METHOD 07/14/2024 9:03 AM [facility] eGFR 14(L) >=60 mL/min/1. 73m2 LAB CHEMISTRY METHOD 07/14/2024 9:03 AM [facility] Comment:Calculation based on the Chronic Kidney Disease Epidemiology Collaboration (CKD-EPI) equation refit without adjustment for race. BUN/Creatinine Ratio 21.5 LAB CHEMISTRY METHOD 07/14/2024 9:03 AM [facility] Calcium 8.6 8.5 - 10.5 mg/dL LAB CHEMISTRY METHOD 07/14/2024 9:03 AM [facility] Blood Venous blood specimen / Unknown Venipuncture / Unknown 07/14/2024 6:08 AM EST 07/14/2024 8:03 AM EST us Hortencia Mcclellan MD LAB BLOOD ORDERABLES Fin al Result [facility] [address] [place] [address], * (ABNORMAL) Complete blood count (07/14/2024 6:08 AM EST) [facility] WBC 5.3 4.8 - 10.8 K/mcL LAB HEMETOLOGY METHOD 07/14/2024 8:32 AM [facility] RBC 3.00(L) 3.80 - 4.80 M/mcL LAB HEMETOLOGY METHOD 07/14/2024 8:32 AM [facility] Hemoglobin 8.3(L) 11.5 - 16.0 g/dL LAB HEMETOLOGY METHOD 07/14/2024 8:32 AM [facility] Hematocrit 29.9(L) 35.0 - 47.0 % LAB HEMETOLOGY METHOD 07/14/2024 8:32 AM [facility] MCV 101.4(H) 79.0 - 98.0 FL LAB HEMETOLOGY METHOD 07/14/2024 8:32 AM [facility] MCH 28.1 27.0 - 32.0 pcg LAB HEMETOLOGY METHOD 07/14/2024 8:32 AM [facility] MCHC 27.8(L) 32.0 - 37.0 g/dL LAB HEMETOLOGY METHOD 07/14/2024 8:32 AM [facility] RDW 20.0(H) 11.0 - 15.0 % LAB HEMETOLOGY METHOD 07/14/2024 8:32 AM [facility] Platelets 198 130 - 400 K/mcL LAB HEMETOLOGY METHOD 07/14/2024 8:32 AM [facility] MPV 10.3 7.0 - 11.0 FL LAB HEMETOLOGY METHOD 07/14/2024 8:32 AM [facility] NRBC 0.0 <1.0 % LAB HEMETOLOGY METHOD 07/14/2024 8:32 AM EST [facility] NRBC Absolute 0.00 <0.10 K/mcL LAB HEMETOLOGY METHOD 07/14/2024 8:32 AM EST [facility] Blood Venous blood specimen / Unknown Venipuncture / Unknown 07/14/2024 6:08 AM EST 07/14/2024 8:03 AM EST us Hortencia Mcclellan MD LAB BLOOD ORDERABLES Fin al Result [facility] [address] [place] [address], documented in this encounter Visit Diagnoses Diagnosis Type 2 diabetes mellitus without complications (CMS/HCC V24, CMS/HCC V28) Heart failure, unspecified (CMS/HCC V24, CMS/HCC V28) Heart failure, unspecified documented in this encounter Care Teams Technical Publications Writer Relationship Specialty Start Date End Date Amina Burciaga MD [address] [place] [address] PCP - General Hospitalist Medicine 09/11/24 documented as of this encounter
--- OUTSIDE RECORDS SUMMARY | 2025-06-14 07:24 | XMS_ITS | Encounter Summary ---
Author Organization [facility], Address [address] [place] [address] Phone Care Team Providers Care Caramel Cutter Helper Name Role Phone Dandre Chavez MD Primary Care Provider [phone] Encounter Details Date Type Department Care Team (Late st Contact Info) Description 12/31/2022 Documentation Only [facility], [address] [place] [address] Melissa Delgadillo [address] [place] [phone] Social History Tobacco Use Types Packs/Day Years [...] on filedocumented in this encounter Care Teams Caramel Cutter Helper Relationship Specialty Start Date End Date Dandre Chavez MD [address] [place] [address], [address] [place], [place] PCP - General 07/07/19 documented as of this encounter
--- OUTSIDE RECORDS SUMMARY | 2025-06-14 07:24 | XMS_ITS | Encounter Summary ---
Author Organization [facility] Address [address] [place] [address] Care Team Providers Care Visualizer Name Role Phone Amina Burciaga MD Primary Care Provider [phone] Encounter Details Date Type Department Care Team (Late st Contact Info) Description 09/30/2024 Lab Requisition [facility] - Main Lab 299 [facility] [place] [address] Isaac Stark MD [address] [place] [address] [place] [address] Heart failure, unspecified [...] MD LAB BLOOD ORDERABLES Final Resu lt [facility] [address] [place] [address], [place] [phone] * (ABNORMAL) Comprehensive metabolic panel (09/30/2024 9:57 [...] MD LAB BLOOD ORDERABLES Final Resu lt [facility] [address] [place] [address], * (ABNORMAL) Complete blood count (09/30/2024 9:57 [...] LAB HEMETOLOGY METHOD 09/30/2024 12:25 PM EST [facility] Blood Venous blood specimen / Unknown Venipuncture / Unknown 09/30/2024 9:57 AM EST 09/30/2024 10:50 AM EST us Isaac Stark MD LAB BLOOD ORDERABLES Final Resu lt Performing Organization Address City/[facility]/ZIP Co de Phone Number [facility] [address] [place] [address], [place] [phone] * Vitamin D 25 hydroxy (09/30/2024 9:57 AM EST) Vit D, 25-Hydroxy 54.9 30.0 - 80.0 ng/mL LAB CHEMISTRY METHOD 09/30/2024 12:48 PM EST [facility] Blood Venous blood specimen / Unknown Venipuncture / Unknown 09/30/2024 9:57 AM EST 09/30/2024 10:50 AM EST us Isaac Stark MD LAB BLOOD ORDERABLES Final Resu lt Performing Organization Address [facility]/ZIP Co de Phone Number [facility] [address] [place] [address], [place] [phone] documented in this encounter Visit Diagnoses Diagnosis Heart failure, unspecified (CMS/HCC V24, CMS/HCC V28) Heart failure, unspecified Vitamin D deficiency, unspecified documented in this encounter Care Teams Visualizer Relationship Specialty Start Date End Date Amina Burciaga MD [address] [place] [phone] PCP - General Hospitalist Medicine 09/11/24 documented as of this encounter
--- OUTSIDE RECORDS SUMMARY | 2025-06-14 07:24 | XMS_ITS | Encounter Summary ---
Author Organization [facility], Address [address] [place] [address] Phone Care Team Providers Care Immigration Officer Name Role Phone Dandre Chavez MD Primary Care Provider [phone] Encounter Details Date Type Department Care Team (Late st Contact Info) Description 12/31/2022 Documentation Only [facility], [address] [place] [address] Melissa Delgadillo [address] [place] [phone] Social History Tobacco Use Types Packs/Day Years [...] on filedocumented in this encounter Care Teams Immigration Officer Relationship Specialty Start Date End Date Dandre Chavez MD [address] [place] [address], [address] [place], [place] PCP - General 07/07/19 documented as of this encounter
--- OUTSIDE RECORDS SUMMARY | 2025-06-14 07:24 | XMS_ITS | Encounter Summary ---
Author Organization [facility], Address [address] [place] [address] Phone Care Team Providers Care Food Beverage Attendant Name Role Phone Dandre Chavez MD Primary Care Provider [phone] Encounter Details Date Type Department Care Team (Late st Contact Info) Description 11/29/2023 Documentation Only [facility], [address] [place] [address] Radha Chatterjee ND [address] [place] [phone] Social History Tobacco Use Types Packs/Day Years [...] filedocumented in this encounter Care Teams Food Beverage Attendant Relationship Specialty Start Date End Date Dandre Chavez MD [address] [place] [address], [address] [place], [place] PCP - General 07/07/19 documented as of this encounter
--- OUTSIDE RECORDS SUMMARY | 2025-06-14 07:24 | XMS_ITS | Encounter Summary ---
Author Organization [facility] Address [address] [place] [address] Care Team Providers Care Court Advocate Name Role Phone Amina Burciaga MD Primary Care Provider [phone] Encounter Details Date Type Department Care Team (Late st Contact Info) Description 07/27/[address] [facility] - Main Lab 299 [facility] [place] [address] Hortencia Mcclellan MD [address] [phone] Type 2 diabetes mellitus without complications (CMS/HCC [...] Fin al Result [facility] [address] [place] [address], * (ABNORMAL) Complete blood count (07/28/2024 5:41 AM EST) [facility] WBC 4.1(L) 4.8 - 10.8 K/mcL LAB [...] MD LAB BLOOD ORDERABLES Fin al Result [facility] [address] [place] [address], documented in this encounter Visit Diagnoses Diagnosis Type 2 diabetes mellitus without complications (CMS/HCC V24, CMS/HCC V28) Heart failure, unspecified (CMS/HCC V24, CMS/HCC V28) Heart failure, unspecified documented in this encounter Care Teams Court Advocate Relationship Specialty Start Date End Date Amina Burciaga MD [address] [place] [address] PCP - General Hospitalist Medicine 09/11/24 documented as of this encounter
--- OUTSIDE RECORDS SUMMARY | 2025-06-14 07:24 | XMS_ITS | Encounter Summary ---
Author Organization [facility] Address [address] [place] [address] Care Team Providers Care Principal Consulting Engineer Name Role Phone Amina Burciaga MD Primary Care Provider [phone] Encounter Details Date Type Department Care Team (Late st Contact Info) Description 08/03/2024 Lab Requisition [facility] - Main Lab 299 [facility] [place] [address] Hortencia Mcclellan MD [address] [phone] Type 2 diabetes mellitus without complications (CMS/HCC [...] mmol/L LAB CHEMISTRY METHOD 08/04/2024 9:42 AM [facility] Potassium 3.6 3.5 - 5.5 mmol/L LAB CHEMISTRY METHOD 08/04/2024 9:42 AM [facility] Chloride 106 96 - 110 mmol/L LAB CHEMISTRY METHOD 08/04/2024 9:42 AM [facility] CO2 29 21 - 32 mmol/L LAB CHEMISTRY METHOD 08/04/2024 9:42 AM [facility] Anion Gap 8 3 - 11 LAB CHEMISTRY METHOD 08/04/2024 9:42 AM [facility] Glucose 64(L) 70 - 100 mg/dL LAB CHEMISTRY METHOD 08/04/2024 9:42 AM [facility] BUN 44(H) 5 - 25 mg/dL LAB CHEMISTRY METHOD 08/04/2024 9:42 AM [facility] Creatinine 2.43(H) 0.50 - 1.10 mg/dL LAB CHEMISTRY METHOD 08/04/2024 9:42 AM [facility] eGFR 20(L) >=60 mL/min/1. 73m2 LAB CHEMISTRY METHOD 08/04/2024 9:42 AM [facility] Comment:Calculation based on the Chronic Kidney Disease Epidemiology Collaboration (CKD-EPI) equation refit without adjustment for race. BUN/Creatinine Ratio 18.1 LAB CHEMISTRY METHOD 08/04/2024 9:42 AM [facility] Calcium 8.8 8.5 - 10.5 mg/dL LAB CHEMISTRY METHOD 08/04/2024 9:42 AM [facility] Blood Venous blood specimen / Unknown Venipuncture / Unknown 08/04/2024 6:38 AM EST 08/04/2024 8:24 AM EST us Hortencia Mcclellan MD LAB BLOOD ORDERABLES Fin al Result [facility] [address] [place] [address], * (ABNORMAL) Complete blood count (08/04/2024 6:38 AM EST) [facility] WBC 4.5(L) 4.8 - 10.8 K/mcL LAB HEMETOLOGY METHOD 08/04/2024 9:19 AM [facility] RBC 3.20(L) 3.80 - 4.80 M/mcL LAB HEMETOLOGY METHOD 08/04/2024 9:19 AM [facility] Hemoglobin 9.0(L) 11.5 - 16.0 g/dL LAB HEMETOLOGY METHOD 08/04/2024 9:19 AM [facility] Hematocrit 31.8(L) 35.0 - 47.0 % LAB HEMETOLOGY METHOD 08/04/2024 9:19 AM [facility] MCV 100.0(H) 79.0 - 98.0 FL LAB HEMETOLOGY METHOD 08/04/2024 9:19 AM [facility] MCH 28.3 27.0 - 32.0 pcg LAB HEMETOLOGY METHOD 08/04/2024 9:19 AM [facility] MCHC 28.3(L) 32.0 - 37.0 g/dL LAB HEMETOLOGY METHOD 08/04/2024 9:19 AM [facility] RDW 18.9(H) 11.0 - 15.0 % LAB HEMETOLOGY METHOD 08/04/2024 9:19 AM [facility] Platelets 188 130 - 400 K/mcL LAB HEMETOLOGY METHOD 08/04/2024 9:19 AM [facility] MPV 10.6 7.0 - 11.0 FL LAB HEMETOLOGY METHOD 08/04/2024 9:19 AM [facility] NRBC 0.0 [...] LAB BLOOD ORDERABLES Fin al Result [facility] [address] [place] [address], documented in this encounter Visit Diagnoses Diagnosis Type 2 diabetes mellitus without complications (CMS/HCC V24, CMS/HCC V28) Heart failure, unspecified (CMS/HCC V24, CMS/HCC V28) Heart failure, unspecified documented in this encounter Care Teams Principal Consulting Engineer Relationship Specialty Start Date End Date Amina Burciaga MD [address] [place] [address] PCP - General Hospitalist Medicine 09/11/24 documented as of this encounter
--- OUTSIDE RECORDS SUMMARY | 2025-06-14 07:24 | XMS_ITS | Encounter Summary ---
Author Organization [facility], Address [address] [place] [address] Phone Care Team Providers Care Senior Engineering Technician Name Role Phone Dandre Chavez MD Primary Care Provider [phone] Encounter Details Date Type Department Care Team (Late st Contact Info) Description 01/14/2023 Documentation Only [facility], [address] [place] [address] Melissa Delgadillo [address] [place] [phone] Social History Tobacco Use Types Packs/Day Years [...] filedocumented in this encounter Care Teams Senior Engineering Technician Relationship Specialty Start Date End Date Dandre Chavez MD [address] [place] [address], [address] [place], [place] PCP - General 07/07/19 documented as of this encounter
--- OUTSIDE RECORDS SUMMARY | 2025-06-14 07:24 | XMS_ITS | Encounter Summary ---
Author Organization [facility] Address [address] [place] [address] Care Team Providers Care Traffic Sign Supervisor Name Role Phone Amina Burciaga MD Primary Care Provider [phone] Encounter Details Date Type Department Care Team (Latest Contact Info) Description 09/23/2024 Lab Requisition [facility] - Main Lab 299 [facility] [place] [address] Amina Burciaga MD [address] [place] [address] Type 2 diabetes mellitus with [...] LAB CHEMISTRY METHOD 09/23/2024 2:17 PM [facility] Mean Bld Glu Estim. 105 mg/dL LAB CHEMISTRY METHOD 09/23/2024 2:17 PM [facility] Blood Venous blood specimen / Unknown Venipuncture / Unknown 09/23/2024 8:20 AM EST 09/23/2024 12:06 PM EST Amina Burciaga MD LAB BLOOD ORDERABLES Final Resul t [facility] [address] [place] [address], * (ABNORMAL) Comprehensive metabolic panel (09/23/2024 8:20 AM EST) Pathologist [facility] Sodium 140 133 - 145 mmol/L LAB CHEMISTRY METHOD 09/23/2024 4:37 PM [facility] Potassium 3.9 3.5 - 5.5 mmol/L LAB CHEMISTRY METHOD 09/23/2024 4:37 PM [facility] Chloride 102 96 - 110 mmol/L LAB CHEMISTRY METHOD 09/23/2024 4:37 PM [facility] CO2 31 21 - 32 mmol/L LAB CHEMISTRY METHOD 09/23/2024 4:37 PM [facility] Anion Gap 7 3 - 11 LAB CHEMISTRY METHOD 09/23/2024 4:37 PM [facility] Glucose 106(H) 70 - 100 mg/dL LAB CHEMISTRY METHOD 09/23/2024 4:37 PM [facility] BUN 82(H) 5 - 25 mg/dL LAB CHEMISTRY METHOD 09/23/2024 4:37 PM [facility] Creatinine 2.46(H) 0.50 - 1.10 mg/dL LAB CHEMISTRY METHOD 09/23/2024 4:37 PM [facility] eGFR 20(L) >=60 mL/min/1. 73m2 LAB CHEMISTRY METHOD 09/23/2024 4:37 PM [facility] Comment:Calculation based on the Chronic Kidney Disease Epidemiology Collaboration (CKD-EPI) equation refit without adjustment for race. BUN/Creatinine Ratio 33.3 LAB CHEMISTRY METHOD 09/23/2024 4:37 PM [facility] Calcium 8.7 8.5 - 10.5 mg/dL LAB CHEMISTRY METHOD 09/23/2024 4:37 PM [facility] AST (SGOT) 17 10 - 42 unit/L LAB CHEMISTRY METHOD 09/23/2024 4:37 PM [facility] ALT (SGPT) 34 10 - 60 unit/L LAB CHEMISTRY METHOD 09/23/2024 4:37 PM [facility] Alkaline Phosphatase 57 42 - 121 unit/L LAB CHEMISTRY METHOD 09/23/2024 4:37 PM [facility] Total Protein 7.1 6.0 - 8.0 g/dL LAB CHEMISTRY METHOD 09/23/2024 4:37 PM [facility] Albumin 3.2 3.2 - 5.0 g/dL LAB CHEMISTRY METHOD 09/23/2024 4:37 PM [facility] Total Bilirubin 0.6 0.0 - 1.4 mg/dL LAB CHEMISTRY METHOD 09/23/2024 4:37 PM [facility] Blood Venous blood specimen / Unknown Venipuncture / Unknown 09/23/2024 8:20 AM EST 09/23/2024 12:06 PM EST us Amina Burciaga MD LAB BLOOD ORDERABLES Final Resul t [facility] [address] [place] [address], * (ABNORMAL) Complete blood count (09/23/2024 8:20 AM EST) [facility] WBC 6.2 4.8 - 10.8 K/mcL LAB HEMETOLOGY METHOD 09/23/2024 12:38 PM [facility] RBC 3.60(L) 3.80 - 4.80 M/mcL LAB HEMETOLOGY METHOD 09/23/2024 12:38 PM [facility] Hemoglobin 10.5(L) 11.5 - 16.0 g/dL LAB HEMETOLOGY METHOD 09/23/2024 12:38 PM [facility] Hematocrit 36.5 35.0 - 47.0 % LAB HEMETOLOGY METHOD 09/23/2024 12:38 PM [facility] MCV 100.3(H) 79.0 - 98.0 FL LAB HEMETOLOGY METHOD 09/23/2024 12:38 PM [facility] MCH 28.8 27.0 - 32.0 pcg LAB HEMETOLOGY METHOD 09/23/2024 12:38 PM [facility] MCHC 28.8(L) 32.0 - 37.0 g/dL LAB HEMETOLOGY METHOD 09/23/2024 12:38 PM [facility] RDW 18.4(H) 11.0 - 15.0 % LAB HEMETOLOGY METHOD 09/23/2024 12:38 PM [facility] Platelets 254 130 - 400 K/mcL LAB HEMETOLOGY METHOD 09/23/2024 12:38 PM [facility] MPV 10.7 7.0 - 11.0 FL LAB HEMETOLOGY METHOD 09/23/2024 12:38 PM [facility] NRBC 0.0 <1.0 % LAB HEMETOLOGY METHOD 09/23/2024 12:38 PM EST [facility] NRBC Absolute 0.00 <0.10 K/mcL LAB HEMETOLOGY METHOD 09/23/2024 12:38 PM EST [facility] Blood Venous blood specimen / Unknown Venipuncture / Unknown 09/23/2024 8:20 AM EST 09/23/2024 12:06 PM EST us Amina Burciaga MD LAB BLOOD ORDERABLES Final Resul t [facility] [address] [place] [address], documented in this encounter Visit Diagnoses Diagnosis Type 2 diabetes mellitus with unspecified complications (CMS/HCC V24, CMS/HCC V28) Unspecified systolic (congestive) heart failure (CMS/HCC V24, CMS/HCC V28) documented in this encounter Care Teams Traffic Sign Supervisor Relationship Specialty Start Date End Date Amina Burciaga MD [address] [place] [address] PCP - General Hospitalist Medicine 09/11/24 documented as of this encounter
--- OUTSIDE RECORDS SUMMARY | 2025-06-14 07:24 | XMS_ITS | Encounter Summary ---
Author Organization [facility] Address [address] [place] [address] Care Team Providers Care Hot Box Operator Name Role Phone Amina Burciaga MD Primary Care Provider [phone] Encounter Details Date Type Department Care Team (Late st Contact Info) Description 07/20/[address] [facility] - Main Lab 299 [facility] [place] [address] Hortencia Mcclellan MD [address] [facility] 1 [place], [place] [id number] Type 2 diabetes mellitus without complications (CMS/HCC [...] mmol/L LAB CHEMISTRY METHOD 07/21/2024 8:50 AM [facility] Potassium 4.5 3.5 - 5.5 mmol/L LAB CHEMISTRY METHOD 07/21/2024 8:50 AM [facility] Chloride 108 96 - 110 mmol/L LAB CHEMISTRY METHOD 07/21/2024 8:50 AM [facility] CO2 27 21 - 32 mmol/L LAB CHEMISTRY METHOD 07/21/2024 8:50 AM [facility] Anion Gap 5 3 - 11 LAB CHEMISTRY METHOD 07/21/2024 8:50 AM [facility] Glucose 71 70 - 100 mg/dL LAB CHEMISTRY METHOD 07/21/2024 8:50 AM [facility] BUN 68(H) 5 - 25 mg/dL LAB CHEMISTRY METHOD 07/21/2024 8:50 AM [facility] Creatinine 3.00(H) 0.50 - 1.10 mg/dL LAB CHEMISTRY METHOD 07/21/2024 8:50 AM [facility] eGFR 16(L) >=60 mL/min/1. 73m2 LAB CHEMISTRY METHOD 07/21/2024 8:50 AM [facility] Comment:Calculation based on the Chronic Kidney Disease Epidemiology Collaboration (CKD-EPI) equation refit without adjustment for race. BUN/Creatinine Ratio 22.7 LAB CHEMISTRY METHOD 07/21/2024 8:50 AM [facility] Calcium 9.1 8.5 - 10.5 mg/dL LAB CHEMISTRY METHOD 07/21/2024 8:50 AM [facility] Blood Venous blood specimen / Unknown Venipuncture / Unknown 07/21/2024 5:53 AM EST 07/21/2024 7:55 AM EST us Hortencia Mcclellan MD LAB BLOOD ORDERABLES Fin al Result [facility] [address] [place] [address], * (ABNORMAL) Complete blood count (07/21/2024 5:53 AM EST) [facility] WBC 5.0 4.8 - 10.8 K/mcL LAB HEMETOLOGY METHOD 07/21/2024 8:26 AM [facility] RBC 2.90(L) 3.80 - 4.80 M/mcL LAB HEMETOLOGY METHOD 07/21/2024 8:26 AM [facility] Hemoglobin 8.2(L) 11.5 - 16.0 g/dL LAB HEMETOLOGY METHOD 07/21/2024 8:26 AM [facility] Hematocrit 29.0(L) 35.0 - 47.0 % LAB HEMETOLOGY METHOD 07/21/2024 8:26 AM [facility] MCV 100.7(H) 79.0 - 98.0 FL LAB HEMETOLOGY METHOD 07/21/2024 8:26 AM [facility] MCH 28.5 27.0 - 32.0 pcg LAB HEMETOLOGY METHOD 07/21/2024 8:26 AM [facility] MCHC 28.3(L) 32.0 - 37.0 g/dL LAB HEMETOLOGY METHOD 07/21/2024 8:26 AM [facility] RDW 19.2(H) 11.0 - 15.0 % LAB HEMETOLOGY METHOD 07/21/2024 8:26 AM [facility] Platelets 223 130 - 400 K/mcL LAB HEMETOLOGY METHOD 07/21/2024 8:26 AM [facility] MPV 10.0 7.0 - 11.0 FL LAB HEMETOLOGY METHOD 07/21/2024 8:26 AM [facility] NRBC 0.0 <1.0 % LAB HEMETOLOGY METHOD 07/21/2024 8:26 AM EST [facility] NRBC Absolute 0.00 <0.10 K/mcL LAB HEMETOLOGY METHOD 07/21/2024 8:26 AM EST [facility] Blood Venous blood specimen / Unknown Venipuncture / Unknown 07/21/2024 5:53 AM EST 07/21/2024 7:55 AM EST us Hortencia Mcclellan MD LAB BLOOD ORDERABLES Fin al Result [facility] [address] [place] [address], documented in this encounter Visit Diagnoses Diagnosis Type 2 diabetes mellitus without complications (CMS/HCC V24, CMS/HCC V28) Heart failure, unspecified (CMS/HCC V24, CMS/HCC V28) Heart failure, unspecified documented in this encounter Care Teams Hot Box Operator Relationship Specialty Start Date End Date Amina Burciaga MD [address] [place] [address] PCP - General Hospitalist Medicine 09/11/24 documented as of this encounter
--- OUTSIDE RECORDS SUMMARY | 2025-06-14 07:24 | XMS_ITS | Encounter Summary ---
Author Organization [facility] Address [address] [place] [address] Phone Care Team Providers Care Director Of Nuclear Medicine Name Role Phone Dandre Chavez MD Primary Care Provider [phone] Miguel Enciso MD Unavailable [phone] Encounter Details Date Type Department Care Team (Latest Contact Info) Description 12/16/2018 Ancillary Orders Non-Invasive Cardiology [address] [place] [address] Cathy Browning NP [address] [place] [address] Atherosclerosis of [place] coronary artery of [place] heart with angina pectoris Social History Tobacco [...] AM EDT) Max BP Systolic 150 mmHg [facility] Max BP Diastolic 80 mmHg [facility] Max HR 89 BPM [facility] Resting HR 78 BPM [facility] Resting BP Systolic 150 mmHg [facility] Resting BP Diastolic 80 mmHg [facility] Peak METS 1.0 METS [facility] Peak HR 83 BPM [facility] Anatomical Region Laterality Modality Heart Other [...] this encounter Visit Diagnoses Diagnosis 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 It is not the complete legal health record.[facility]
--- OUTSIDE RECORDS SUMMARY | 2025-06-14 07:24 | XMS_ITS | Encounter Summary ---
Author Organization [facility] Address [address] [place] [address] Care Team Providers Care Gear Shaper Name Role Phone Amina Burciaga MD Primary Care Provider [phone] Encounter Details Date Type Department Care Team (Latest Contact Info) Description 09/11/[address] [facility] - Main Lab 299 [facility] [place] [address] Amina Burciaga MD [address] [place] [address] Other manager terminal (current) drug therapy; Type 2 diabetes mellitus [...] COUNT Routine 09/11/2024 9:47 AM EST Other manager terminal (current) drug therapy Type 2 diabetes mellitus without complications (CMS/HCC) Heart failure, unspecified (CMS/HCC) MAGNESIUM Routine 09/11/2024 9:47 AM EST Other manager terminal (current) drug therapy Type 2 diabetes mellitus without complications (CMS/HCC) Heart failure, unspecified (CMS/HCC) BASIC METABOLIC PANEL Routine 09/11/2024 9:47 AM EST Other assisted (current) drug therapy Type 2 diabetes mellitus without complications (CMS/HCC) Heart failure, unspecified (CMS/HCC) documented in this encounter Results * Magnesium (09/11/2024 9:47 AM EST) [facility] Magnesium 2.1 1.9 - 2.6 mg/dL LAB CHEMISTRY METHOD 09/11/2024 12:45 PM [facility] Blood Venous blood specimen / Unknown Venipuncture / Unknown 09/11/2024 9:47 AM EST 09/11/2024 11:29 AM EST Amina Burciaga MD LAB BLOOD ORDERABLES Final Resul t [facility] [address] [place] [address], * (ABNORMAL) Basic metabolic panel (09/11/2024 9:47 AM EST) [facility] Sodium 137 133 - 145 mmol/L LAB CHEMISTRY METHOD 09/11/2024 12:54 PM [facility] Potassium 3.9 3.5 - 5.5 mmol/L LAB CHEMISTRY METHOD 09/11/2024 12:54 PM [facility] Chloride 103 96 - 110 mmol/L LAB CHEMISTRY METHOD 09/11/2024 12:54 PM [facility] CO2 26 21 - 32 mmol/L LAB CHEMISTRY METHOD 09/11/2024 12:54 PM [facility] Anion Gap 8 3 - 11 LAB CHEMISTRY METHOD 09/11/2024 12:54 PM [facility] Glucose 112(H) 70 - 100 mg/dL LAB CHEMISTRY METHOD 09/11/2024 12:54 PM [facility] BUN 50(H) 5 - 25 mg/dL LAB CHEMISTRY METHOD 09/11/2024 12:54 PM [facility] Creatinine 2.73(H) 0.50 - 1.10 mg/dL LAB CHEMISTRY METHOD 09/11/2024 12:54 PM [facility] eGFR 17(L) >=60 mL/min/1. 73m2 LAB CHEMISTRY METHOD 09/11/2024 12:54 PM [facility] Comment:Calculation based on the Chronic Kidney Disease Epidemiology Collaboration (CKD-EPI) equation refit without adjustment for race. BUN/Creatinine Ratio 18.3 LAB CHEMISTRY METHOD 09/11/2024 12:54 PM [facility] Calcium 8.6 8.5 - 10.5 mg/dL LAB CHEMISTRY METHOD 09/11/2024 12:54 PM [facility] Blood Venous blood specimen / Unknown Venipuncture / Unknown 09/11/2024 9:47 AM EST 09/11/2024 11:29 AM EST Amina Burciaga MD LAB BLOOD ORDERABLES Final Resul t [facility] [address] [place] [address], * (ABNORMAL) Complete blood count (09/11/2024 9:47 AM EST) WBC 6.9 4.8 - 10.8 K/mcL LAB HEMETOLOGY METHOD 09/11/2024 11:47 AM [facility] RBC 3.10(L) 3.80 - 4.80 M/mcL LAB HEMETOLOGY METHOD 09/11/2024 11:47 AM [facility] Hemoglobin 9.0(L) 11.5 - 16.0 g/dL LAB HEMETOLOGY METHOD 09/11/2024 11:47 AM [facility] Hematocrit 31.6(L) 35.0 - 47.0 % LAB HEMETOLOGY METHOD 09/11/2024 11:47 AM [facility] MCV 102.6(H) 79.0 - 98.0 FL LAB HEMETOLOGY METHOD 09/11/2024 11:47 AM EST [facility] MCH 29.2 27.0 - 32.0 pcg LAB HEMETOLOGY METHOD 09/11/2024 11:47 AM [facility] MCHC 28.5(L) 32.0 - 37.0 g/dL LAB HEMETOLOGY METHOD 09/11/2024 11:47 AM EST [facility] RDW 20.6(H) 11.0 - 15.0 % LAB HEMETOLOGY METHOD 09/11/2024 11:47 AM EST [facility] Platelets 180 130 - 400 K/mcL LAB HEMETOLOGY METHOD 09/11/2024 11:47 AM [facility] MPV 9.9 7.0 - 11.0 FL LAB HEMETOLOGY METHOD 09/11/2024 11:47 AM EST [facility] NRBC 0.0 <1.0 % LAB HEMETOLOGY METHOD 09/11/2024 11:47 AM [facility] NRBC Absolute 0.00 <0.10 K/mcL LAB HEMETOLOGY METHOD 09/11/2024 11:47 AM [facility] Blood Venous blood specimen / Unknown Venipuncture / Unknown 09/11/2024 9:47 AM EST 09/11/2024 11:29 AM EST us Amina Burciaga MD LAB BLOOD ORDERABLES Final Resul t [facility] [address] [place] [address], documented in this encounter Visit Diagnoses Diagnosis Other manager terminal (current) drug therapy Type 2 diabetes mellitus without complications (CMS/HCC V24, CMS/HCC V28) Heart failure, unspecified (CMS/HCC V24, CMS/HCC V28) Heart failure, unspecified documented in this encounter Care Teams Gear Shaper Relationship Specialty Start Date End Date Amina Burciaga MD [address] [place] [address] PCP - General Hospitalist Medicine 09/11/24 documented as of this encounter
--- OUTSIDE RECORDS SUMMARY | 2025-06-14 07:25 | XMS_ITS | Encounter Summary ---
Author Organization [facility], Address [address] [place] [address] Phone Care Team Providers Care Supervisor Porcelain Department Name Role Phone Dandre Chavez MD Primary Care Provider [phone] Encounter Details Date Type Department Care Team (Late st Contact Info) Description 02/09/2022 Documentation Only [facility], [address] [place] [address] Faina Villegas PA Social History Tobacco Use [...] filedocumented in this encounter Care Teams Supervisor Porcelain Department Relationship Specialty Start Date End Date Dandre Chavez MD [address] [place] [address], [address] [place], [place] PCP - General 07/07/19 documented as of this encounter
--- OUTSIDE RECORDS SUMMARY | 2025-06-14 07:25 | XMS_ITS | Encounter Summary ---
Author Organization [facility] Address [address] [place], [place] [address] [place] [address] Phone Care Team Providers Care Legal Cashier Name Role Phone Dandre Chavez MD Primary Care Provider [phone] Miguel Enciso MD Unavailable Encounter Details Date Type Department Care Team (Late st Contact Info) Description 07/01/2024 Procedure Pass [facility] Cardiology Referral Images [address] [facility] [address] [place] [address] Social History Tobacco Use Types Packs/Day Years [...] filedocumented in this encounter Care Teams Legal Cashier Relationship Specialty Start Date End Date Dandre Chavez MD [address] [place] [address] PCP - General 09/05/17 Miguel Enciso MD [address] [place] [address] [email or web address] Cardiology 05/28/24 documented as of this encounter Additional Source Comments The information contained in this document represents components of the legal health record. It is not the complete legal health record.[facility]
--- OUTSIDE RECORDS SUMMARY | 2025-06-14 07:25 | XMS_ITS | Encounter Summary ---
Author Organization [facility], Address [address] [place] [address] Phone Care Team Providers Care Dry Color Tester Name Role Phone Dandre Chavez MD Primary Care Provider [phone] Encounter Details Date Type Department Care Team (Late st Contact Info) Description 02/09/2022 Documentation Only [facility], [address] [place] [address] Faina Villegas PA Social History Tobacco Use [...] on filedocumented in this encounter Care Teams Dry Color Tester Relationship Specialty Start Date End Date Dandre Chavez MD [address] [place] [address], [address] [place], [place] PCP - General 07/07/19 documented as of this encounter
--- OUTSIDE RECORDS SUMMARY | 2025-06-14 07:25 | XMS_ITS | Clinical Summary ---
Author Organization [facility] Address [address] [place] [address] Phone Care Team Providers Care Hand Ii Cutter Name Role Phone Dandre Chavez MD Primary Care Provider [phone] Miguel Enciso MD Unavailable [phone] Allergies Active Allergy Reactions Criticality Noted Date [...] Active ferrous sulfate 325 mg (65 mg poarch iron) EC tablet Take 325 mg by [...] focus on healthy food choices. Atherosclerosis of [place] co ronary artery of [place] heart with angina pectoris 10/28/2018 Assessment & [...] (04/14/2020 10:40 PM EDT): History of inferior NM in 2013 with a stent to her [...] LAD. She presented with a non-ST relation NM September 2018 and had a new culprit [...] will need to have this completed at [facility]. She is aware that this is [...] December. She will have this completed at [facility] due to having her stress test completed [...] this topic Medical Devices Implanted Type Area Radio Division Lieutenant Device Identifier Shelf Expiration Date Model / Serial / Lot Sensor Pulmonary Artery Delivery System Cardiomems - [id number] Implanted:Qt y: 1 on 04/03/2022 by Miguel Enciso MD at [facility] Implantable Monitor Left: Arterial [employer] [id number] 12/15/2023 CM PATIENT SYSTEM / [id number] / Description:Pulmonary artery Procedures Procedure Name Priority Date/Time Associated Diagnosis Comments COMPREHENSIVE METABOLIC PANEL Routine 04/18/2022 2:39 PM EDT Atherosclerosis of [place] coronary artery of [place] heart with angina pectoris Essential hypertension Ischemic cardiomyopathy PAD (peripheral artery disease) from Last 3 Months or Most Recently Relevant to Health Maintenance Results * (ABNORMAL) Comprehensive metabolic panel (04/18/2022 2:39 PM EDT) SODIUM 143 133 - 146 mmol/L [facility] POTASSIUM 4.5 3.3 - 5.1 mmol/L [facility] CHLORIDE 100 96 - 108 mmol/L [facility] CO2 34 21 - 35 mmol/L [facility] BUN 38(H) 6 - 19 mg/dL [facility] CREATININE 1.40 0.5 - 1.5 mg/dL [facility] GLUCOSE 163(H) 70 - 99 mg/dL [facility] ALBUMIN 4.0 3.9 - 4.8 g/dL [facility] TOTAL PROTEIN 7.5 6.5 - 8.0 g/dL [facility] CALCIUM 10.1 8.4 - 10.3 mg/dL [facility] ALKALINE PHOSPHATASE 94 39 - 117 U/L [facility] TOTAL BILIRUBIN 0.6 0.0 - 1.2 mg/dL [facility] AST 26 0 - 37 U/L [facility] ALT 12 0 - 40 U/L [facility] GLOBULIN 3.5 1 - 4.8 g/dL [facility] EGFR 39(L) >59 mL/min/1.7 3m2 [facility] Comment:Estimated glomerular filtration rate calculated using the CKD-EPI refit equation. ANION GAP 14 10 - 20 mmol/L [facility] Blood 04/18/2022 2:39 PM EDT 04/18/2022 2:42 PM EDT us Miguel Enciso MD LAB BLOOD ORDERABLES Final Result [facility] [address] [place] [address] from Last 3 Months or Most Recently Relevant to Health Maintenance Insurance * Guarantor: Amina Zamora Account Type Relation to Patient Date of Phone Billing Address Personal/Family Self 1945 [address] [place] [address] MEDICARE PART A & B [place] MED[employer]ARE PREFERRED HMO REPLACEMENT [facility] [address] MEDICARE PART A & B [place] MED[place] PREFERRED HMO REPLACEMENT [facility] [place] [address] MEDICARE PART A & B Member Subscriber Plan / Payer (Ef fective 2012-Present) Name:Amina Zamora Member ID:[id number] Relation to Subscriber:Self Name:Amina Zamora Subscriber ID:[id number] Payer ID:[id number] Group ID:Not on file Type:Medicare Address: [employer] [address] [place] [phone] [facility] MEDICARE PREFERRED HMO REPLACEMENT MEDICARE PART A & B [place] MED[employer] PREFERRED HMO REPLACEMENT MEDICARE PART A & B Member Subscriber Plan / Payer ( fective 2012-Present) Name:Amina Zamora Member ID:[id number] Relation to Subscriber:Self Name:Amina Zamora Subscriber ID:[id number] Payer ID:[id number] Group ID:Not on file Type:Medicare Address: [facility] [employer] [facility] [address] [place] [address] [place] MEDICARE PREFERRED HMO REPLACEMENT [facility] MEDICARE PART A & B [place] MEDICARE PREFERRED HMO REPLACEMENT MEDICARE PART A & B [place] MEDICARE PREFERRED HMO REPLACEMENT [facility] MEDICARE PART A & B [place] MEDICARE PREFERRED HMO REPLACEMENT [facility] MEDICARE PART A & B [place] MEDICARE PREFERRED HMO REPLACEMENT [facility] [employer] Care Teams Hand Ii Cutter Relationship Specialty Start Date End Date Dandre Chavez MD [address] [place] [address] PCP - General 09/05/17 Miguel Enciso MD [address] [place] [phone] [email or web address] Cardiology 05/28/24 Additional Source Comments The information contained in this document represents components of the legal health record. It is not the complete legal health record.[facility]
--- OUTSIDE RECORDS SUMMARY | 2025-06-14 07:25 | XMS_ITS | Encounter Summary ---
Author Organization [facility], Address [address] [place] [address] Phone Care Team Providers Care Lighthouse Keeper Name Role Phone Dandre Chavez MD Primary Care Provider [phone] Encounter Details Date Type Department Care Team (Late st Contact Info) Description 10/12/2021 Documentation Only [facility], [address] [place] [address] Faina Villegas PA Social History Tobacco Use [...] on filedocumented in this encounter Care Teams Lighthouse Keeper Relationship Specialty Start Date End Date Dandre Chavez MD [address] [place] [address], [address] [place], [place] PCP - General 07/07/19 documented as of this encounter
--- OUTSIDE RECORDS SUMMARY | 2025-06-14 07:25 | XMS_ITS | Encounter Summary ---
Author Organization [facility] Address [address] [place] [address] Phone Care Team Providers Care Axle Inspector Name Role Phone Dandre Chavez MD Primary Care Provider [phone] Miguel Enciso MD Unavailable [phone] Encounter Details Date Type Department Care Team (Late st Contact Info) Description 12/21/2022 Procedure Pass Echo Lab [address] [id number] Social History Tobacco Use Types Packs/Day Years [...] on filedocumented in this encounter Care Teams Axle Inspector Relationship Specialty Start Date End Date Dandre Chavez MD [address] [place] [address] [id number] PCP - General 09/05/17 Miguel Enciso MD [address] [facility], [address] [place], [place] [phone] Cardiology 05/28/24 documented as of this encounter Additional Source Comments The information contained in this document represents components of the legal health record. It is not the complete legal health record.[facility]
--- OUTSIDE RECORDS SUMMARY | 2025-06-14 07:25 | XMS_ITS | Encounter Summary ---
Author Organization [facility], Address [address] [place] [address] Phone Care Team Providers Care Trimmer And Reinforcer Name Role Phone Dandre Chavez MD Primary Care Provider [phone] Encounter Details Date Type Department Care Team (Late st Contact Info) Description 08/02/2022 Documentation Only [facility], [address] [place] [address] Faina Villegas PA Social History Tobacco Use [...] on filedocumented in this encounter Care Teams Trimmer And Reinforcer Relationship Specialty Start Date End Date Dandre Chavez MD [address] [place] [address], [address] [place], [place] PCP - General 07/07/19 documented as of this encounter
--- OUTSIDE RECORDS SUMMARY | 2025-06-14 07:25 | XMS_ITS | Encounter Summary ---
Author Organization [facility] Address [address] [place] [address] Phone Care Team Providers Care Carroting Machine Operator Name Role Phone Dandre Chavez MD Primary Care Provider [phone] Miguel Enciso MD Unavailable [phone] Encounter Details Date Type Department Care Team (Late st Contact Info) Description 04/03/2022 Procedure Pass [facility] [address] [place] [address] Social History Tobacco Use Types Packs/Day Years [...] on filedocumented in this encounter Care Teams Carroting Machine Operator Relationship Specialty Start Date End Date Dandre Chavez MD [address] [id number] PCP - General 09/05/17 Miguel Enciso MD [address] [place] [address], [address] [place], [place] [phone] Cardiology 05/28/24 documented as of this encounter Additional Source Comments The information contained in this document represents components of the legal health record. It is not the complete legal health record.[facility]
--- OUTSIDE RECORDS SUMMARY | 2025-06-14 07:25 | XMS_ITS | Encounter Summary ---
Author Organization [facility] Address [address] [place] [address] Phone Care Team Providers Care Department Of Sociology Chair Name Role Phone Dandre Chavez MD Primary Care Provider [phone] Miguel Enciso MD Unavailable Encounter Details Date Type Department Care Team (Late st Contact Info) Description 08/18/2021 Procedure Pass Echo Lab [address] [id number] Social History Tobacco Use Types Packs/Day Years [...] on filedocumented in this encounter Care Teams Department Of Sociology Chair Relationship Specialty Start Date End Date Dandre Chavez MD [address] [place] [address] [id number] PCP - General 09/05/17 Miguel Enciso MD [address] [place] [address], [address] [place], [place] [phone] Cardiology 05/28/24 documented as of this encounter Additional Source Comments The information contained in this document represents components of the legal health record. It is not the complete legal health record.[facility]
--- OUTSIDE RECORDS SUMMARY | 2025-06-14 07:25 | XMS_ITS | Encounter Summary ---
Author Organization [facility] Address [address] [place] [address] Phone Care Team Providers Care Raspberry Checker Name Role Phone Dandre Chavez MD Primary Care Provider [phone] Miguel Enciso MD Unavailable Encounter Details Date Type Department Care Team (Late st Contact Info) Description 12/20/2022 Procedure Pass Non-Invasive Cardiology [address] [place], [place] [id number] Social History Tobacco Use Types Packs/Day Years [...] on filedocumented in this encounter Care Teams Raspberry Checker Relationship Specialty Start Date End Date Dandre Chavez MD [address] [place] [address] [id number] PCP - General 09/05/17 Miguel Enciso MD [address] [place] [address], [address] [place], [place] [phone] Cardiology 05/28/24 documented as of this encounter Additional Source Comments The information contained in this document represents components of the legal health record. It is not the complete legal health record.[facility]
--- OUTSIDE RECORDS SUMMARY | 2025-06-14 07:25 | XMS_ITS | Encounter Summary ---
Author Organization [facility], Address [address] [place] [address] Phone Care Team Providers Care Restrooms Or Lounges Maid Name Role Phone Dandre Chavez MD Primary Care Provider [phone] Encounter Details Date Type Department Care Team (Late st Contact Info) Description 02/08/2022 Documentation Only [facility], [address] [place] [address] Faina Villegas PA Social History Tobacco Use [...] on filedocumented in this encounter Care Teams Restrooms Or Lounges Maid Relationship Specialty Start Date End Date Dandre Chavez MD [address] [place] [address], [address] [place], [place] PCP - General 07/07/19 documented as of this encounter
--- OUTSIDE RECORDS SUMMARY | 2025-06-14 07:25 | XMS_ITS | Encounter Summary ---
Author Organization [facility], Address [address] [place] [address] Phone Care Team Providers Care Automobile Carpets Molder Name Role Phone Dandre Chavez MD Primary Care Provider [phone] Encounter Details Date Type Department Care Team (Late st Contact Info) Description 10/10/2021 Documentation Only [facility], [address] [place] [address] Faina Villegas PA Social History Tobacco Use [...] on filedocumented in this encounter Care Teams Automobile Carpets Molder Relationship Specialty Start Date End Date Dandre Chavez MD [address] [place] [address], [address] [place], [place] PCP - General 07/07/19 documented as of this encounter
--- OUTSIDE RECORDS SUMMARY | 2025-06-14 07:25 | XMS_ITS | Encounter Summary ---
Author Organization [facility], Address [address] [place] [address] Phone Care Team Providers Care Cartography/Mapping Technician Name Role Phone Dandre Chavez MD Primary Care Provider [phone] Encounter Details Date Type Department Care Team (Late st Contact Info) Description 09/25/2021 Documentation Only [facility], [address] [place] [address] Faina Villegas PA Social History Tobacco Use [...] on filedocumented in this encounter Care Teams Cartography/Mapping Technician Relationship Specialty Start Date End Date Dandre Chavez MD [address] [place] [address], [address] [place], [place] PCP - General 07/07/19 documented as of this encounter
--- OUTSIDE RECORDS SUMMARY | 2025-06-14 07:25 | XMS_ITS | Encounter Summary ---
Author Organization [facility] Address [address] [place] [address] Phone Care Team Providers Care Territory Account Representative Name Role Phone Dandre Chavez MD Primary Care Provider [phone] Miguel Enciso MD Unavailable [phone] Encounter Details Date Type Department Care Team (Late st Contact Info) Description 09/18/2019 Ancillary Orders [facility] [address] 3[address] Floor [place], [place] [phone] Miguel Enciso MD [address] [place] [address], [address] [place], [place] [phone] [email or web address] PVD (peripheral vascular disease) Social [...] disease documented in this encounter Care Teams Territory Account Representative Relationship Specialty Start Date End Date Dandre Chavez MD [address] [place] [address] PCP - General 09/05/17 Miguel Enciso MD [address] [place] [address] [address] [place] [address] Cardiology 05/28/24 documented as of this encounter Additional Source Comments The information contained in this document represents components of the legal health record. It is not the complete legal health record.[facility]
--- OUTSIDE RECORDS SUMMARY | 2025-06-14 07:25 | XMS_ITS | Encounter Summary ---
Author Organization [facility], Address [address] [place] [address] Phone Care Team Providers Care Sounding Device Operator Name Role Phone Dandre Chavez MD Primary Care Provider [phone] Encounter Details Date Type Department Care Team (Late st Contact Info) Description 09/07/2022 Documentation Only [facility], [address] [place] [address] Faina Villegas PA Social History Tobacco Use [...] on filedocumented in this encounter Care Teams Sounding Device Operator Relationship Specialty Start Date End Date Dandre Chavez MD [address] [place] [address], [address] [place], [place] PCP - General 07/07/19 documented as of this encounter
--- OUTSIDE RECORDS SUMMARY | 2025-06-14 07:25 | XMS_ITS | Encounter Summary ---
Author Organization [facility] Address [address] [place], [place] [address] [place] [address] Phone Care Team Providers Care Front End Software Engineer Name Role Phone Dandre Chavez MD Primary Care Provider [phone] Miguel Enciso MD Unavailable [phone] Encounter Details Date Type Department Care Team (Late st Contact Info) Description 07/01/2024 Procedure Pass [facility] Cardiology Referral Images [address] [facility] [address] [place] [address] Social History Tobacco Use Types Packs/Day Years [...] on filedocumented in this encounter Care Teams Front End Software Engineer Relationship Specialty Start Date End Date Dandre Chavez MD [address] [place] [address] PCP - General 09/05/17 Miguel Enciso MD [address] [place] [address] [email or web address] Cardiology 05/28/24 documented as of this encounter Additional Source Comments The information contained in this document represents components of the legal health record. It is not the complete legal health record.[facility]
[2025-06-14 07:54] LABS: Anion Gap 19 (12-20); Blood Urea Nitrogen 115 mg/dL (9-16); Calcium 8.9 mg/dL (8.4-10.2); Carbon Dioxide 23 mmol/L (22-29); Chloride 103 mmol/L (96-108); Estimated Glomerular Filt Rate 12; Potassium 3.6 mmol/L (3.3-5.1); Sodium 141 mmol/L (135-145)
== END 2025-06-14 07:21 | disposition home or self-care (01) ==
LOC: HO.MMNH2L 07:20
PROVIDERS: Visit Provider Student in an Organized Health Care Education/Training Program
DX: I50.9 Heart failure, unspecified (principal)
CPT/HCPCS: 36415; 80048; 85025

== ENCOUNTER 2025-06-15 05:39 | Outpatient (REF) | payer MEDICARE, SELFPAY ==
--- OUTSIDE RECORDS SUMMARY | 2018-12-31 05:05 | XMS_ITS | Continuity of Care Document ---
Author Organization [facility] Address [address] [address] Phone Care Team Providers Care Stock Buyer Name Role Phone Brodie Hinds DO Unavailable Unavailable Advance Directives Directive Yes / No Effective Date File Name No Information Encounters Encounter Description Practice Location Reason(s) For Visit Diagnoses Date Provider [facility], [address], [id number], [place] tel:[phone] [address] [place] [address] No Information 2018 Guzman Calloway. [address] [place] [address], [id number], [place]. tel:[phone] Family History Family Member Type Diagnosis Age [...]
[2025-06-15 05:41] LABS: MANUAL DIFF FLAG NO
--- OUTSIDE RECORDS SUMMARY | 2025-06-15 05:43 | XMS_ITS | Encounter Summary ---
Author Organization [facility], Address [address] [place] [address] Phone Care Team Providers Care Ground Systems Engineer Name Role Phone Dandre Chavez MD Primary Care Provider [phone] Encounter Details Date Type Department Care Team (Late st Contact Info) Description 12/31/2022 Documentation Only [facility], [address] [place] [address] Melissa Delgadillo [address] [place] [phone] Social History Tobacco Use Types Packs/Day Years [...] on filedocumented in this encounter Care Teams Ground Systems Engineer Relationship Specialty Start Date End Date Dandre Chavez MD [address] [place] [address], [address] [place], [place] PCP - General 07/07/19 documented as of this encounter
--- OUTSIDE RECORDS SUMMARY | 2025-06-15 05:43 | XMS_ITS | Encounter Summary ---
Author Organization [facility] Address [address] [place] [address] Care Team Providers Care Supervisor Detasseling Crew Name Role Phone Amina Burciaga MD Primary Care Provider [phone] Encounter Details Date Type Department Care Team (Latest Contact Info) Description 09/07/[address] [facility] - Main Lab [address] [facility] [employer] [place] [address] Amina Burciaga MD [address] [place] [address] Heart failure, unspecified (CMS/HCC V24, [...] unspecified Type 2 diabetes mellitus without complications ([facility]) documented in this encounter Results * Hemoglobin A1c (09/07/2024 6:24 AM EST) Pathologist [facility] Hemoglobin A1C 5.1 <6.5 % LAB CHEMISTRY METHOD 09/07/2024 11:11 AM EST [facility] Mean Bld Glu Estim. 100 mg/dL LAB CHEMISTRY METHOD 09/07/2024 11:11 AM [facility] Blood Venous blood specimen / Unknown Venipuncture / Unknown 09/07/2024 6:24 AM EST 09/07/2024 8:12 AM EST Amina Burciaga MD LAB BLOOD ORDERABLES Final Resul t [facility] [address] [place] [address], * (ABNORMAL) Comprehensive metabolic panel (09/07/2024 6:24 [...] t [facility] [address] [place] [address], * (ABNORMAL) Complete blood count (09/07/2024 6:24 AM EST) [facility] Signature WBC 4.7(L) 4.8 - 10.8 K/mcL [...] LAB HEMETOLOGY METHOD 09/07/2024 8:53 AM EST [facility] NRBC Absolute 0.00 <0.10 K/mcL LAB HEMETOLOGY METHOD 09/07/2024 8:53 AM EST [facility] Blood Venous blood specimen / Unknown Venipuncture / Unknown 09/07/2024 6:24 AM EST 09/07/2024 8:12 AM EST us Amina Burciaga MD LAB BLOOD ORDERABLES Final Resul t [facility] [address] [place] [address], documented in this encounter Visit Diagnoses Diagnosis Heart failure, unspecified (CMS/HCC V24, CMS/HCC V28) Heart failure, unspecified Chronic kidney disease, unspecified Type 2 diabetes mellitus without complications (CMS/HCC V24, CMS/HCC V28) documented in this encounter Care Teams Supervisor Detasseling Crew Relationship Specialty Start Date End Date Amina Burciaga MD [address] [place] [address] PCP - General Hospitalist Medicine 09/11/24 documented as of this encounter
--- OUTSIDE RECORDS SUMMARY | 2025-06-15 05:43 | XMS_ITS | Encounter Summary ---
Author Organization [facility], Address [address] [place] [address] Phone Care Team Providers Care Stencil Cutter Machine Name Role Phone Dandre Chavez MD Primary Care Provider [phone] Encounter Details Date Type Department Care Team (Late st Contact Info) Description 08/06/2023 Documentation Only [facility], [address] [place] [address] Desi [place] Social History Tobacco Use Types [...] on filedocumented in this encounter Care Teams Stencil Cutter Machine Relationship Specialty Start Date End Date Dandre Chavez MD [address] [place] [address], [address] [place], [place] PCP - General 07/07/19 documented as of this encounter
--- OUTSIDE RECORDS SUMMARY | 2025-06-15 05:43 | XMS_ITS | Clinical Summary ---
Author Organization [facility], Address [address] [place] [address] Phone Care Team Providers Care Solar Installer Pv Name Role Phone Dandre Chavez MD Primary Care Provider [phone] Allergies Active Allergy Reactions Criticality Noted Date [...] Last Assessment & Plan: History of inferior [place] in 2013 with [...] PM EST) Hemoglobin A1C 6.9(H) (4.0-5.6) % [facility] Comment: MONITORING: In known diabetic patients, [...] Supplement 1 Testing performed or reported by [facility], a Service of [address] [address] Louis Fry MD, Painter Drum [facility]# [id number] Blood specimen (specimen) Venous blood / Unknown 10/18/2022 2:34 PM EST 10/18/2022 2:35 PM EST us Faina LUCIANO LAB BLOOD ORDERABLES Final Res ult [facility] from Last 3 Months or Most Recently Relevant to Health Maintenance Insurance Medicare [facility] [place] AG[place]RE [id number] Care Teams Solar Installer Pv Relationship Specialty Start Date End Date Dandre Chavez MD [address] [place] [address], [address] [place] PCP - General 07/07/19
--- OUTSIDE RECORDS SUMMARY | 2025-06-15 05:43 | XMS_ITS | Clinical Summary ---
Author Organization [address] Address [address] [place] [address] Phone Care Team Providers Care Entertainment Director Name Role Phone Amina Burciaga MD Primary Care Provider [phone] Immunizations Immunization Administration Dates Next Due Pfizer [...] LAB CHEMISTRY METHOD 09/30/2024 1:04 PM EST [facility] Total Protein 6.2 6.0 [...] ORDERABLES Final Resu lt Performing Organization Address City/[facility]/ZIP Co de Phone Number [facility] [address] [place] [address], [place] [phone] * Hemoglobin A1c (09/23/2024 8:20 AM EST) Hemoglobin A1C 5.3 <6.5 % LAB CHEMISTRY METHOD 09/23/2024 2:17 PM [facility] Mean Bld Glu Estim. 105 mg/dL LAB CHEMISTRY METHOD 09/23/2024 2:17 PM [facility] Blood Venous blood specimen / Unknown Venipuncture / Unknown 09/23/2024 8:20 AM EST 09/23/2024 12:06 PM EST Amina Burciaga MD LAB BLOOD ORDERABLES Final Resul t Performing Organization Address City/[facility]/ZIP Co de Phone Number [facility] [address] [place] [address], [place] [phone] from Last 3 Months or Most Recently Relevant to Health Maintenance Insurance [place] [employer] [employer] Care Teams Entertainment Director Relationship Specialty Start Date End Date Amina Burciaga MD [address] [place] [address] PCP - General Hospitalist Medicine 09/11/24
--- OUTSIDE RECORDS SUMMARY | 2025-06-15 05:43 | XMS_ITS | Encounter Summary ---
Author Organization [facility], Address [address] [place] [address] Phone Care Team Providers Care Housing Relocation Name Role Phone Dandre Chavez MD Primary Care Provider [phone] Encounter Details Date Type Department Care Team (Late st Contact Info) Description 02/09/2022 Documentation Only [facility], [address] [place] [address] Faina Villegas PA Social History Tobacco Use [...] on filedocumented in this encounter Care Teams Housing Relocation Relationship Specialty Start Date End Date Dandre Chavez MD [address] [place] [address], [address] [place], [place] PCP - General 07/07/19 documented as of this encounter
--- OUTSIDE RECORDS SUMMARY | 2025-06-15 05:43 | XMS_ITS | Encounter Summary ---
Author Organization [facility] Address [address] [place] [address] Care Team Providers Care Equipment Installer Name Role Phone Amina Burciaga MD Primary Care Provider [phone] Encounter Details Date Type Department Care Team (Latest Contact Info) Description 09/23/[address] [facility] - Main Lab 299 [facility] [place] [address] Amina Burciaga MD [address] [place] [address] Type 2 diabetes mellitus with [...] Final Resul t [facility] [address] [place] [address], * (ABNORMAL) Comprehensive metabolic panel (09/23/2024 8:20 AM EST) Pathologist [facility] Sodium 140 133 - 145 mmol/L LAB CHEMISTRY METHOD 09/23/2024 4:37 PM [facility] Potassium 3.9 3.5 - 5.5 mmol/L LAB CHEMISTRY METHOD 09/23/2024 4:37 PM [facility] Chloride 102 96 - 110 mmol/L LAB CHEMISTRY METHOD 09/23/2024 4:37 PM [facility] CO2 31 21 - 32 mmol/L LAB CHEMISTRY METHOD 09/23/2024 4:37 PM [facility] Anion Gap 7 3 - 11 LAB CHEMISTRY METHOD 09/23/2024 4:37 PM [facility] Glucose 106(H) 70 - 100 mg/dL LAB CHEMISTRY METHOD 09/23/2024 4:37 PM [facility] BUN 82(H) 5 - 25 mg/dL LAB CHEMISTRY METHOD 09/23/2024 4:37 PM [facility] Creatinine 2.46(H) 0.50 - 1.10 mg/dL LAB CHEMISTRY METHOD 09/23/2024 4:37 PM [facility] eGFR 20(L) >=60 mL/min/1. 73m2 LAB CHEMISTRY METHOD 09/23/2024 4:37 PM [facility] Comment:Calculation based on the Chronic Kidney Disease Epidemiology Collaboration (CKD-EPI) equation refit without adjustment for race. BUN/Creatinine Ratio 33.3 LAB CHEMISTRY METHOD 09/23/2024 4:37 PM [facility] Calcium 8.7 8.5 - 10.5 mg/dL LAB CHEMISTRY METHOD 09/23/2024 4:37 PM [facility] AST (SGOT) 17 10 - 42 unit/L LAB CHEMISTRY METHOD 09/23/2024 4:37 PM [facility] ALT (SGPT) 34 10 - 60 unit/L LAB CHEMISTRY METHOD 09/23/2024 4:37 PM [facility] Alkaline Phosphatase 57 42 - 121 unit/L LAB CHEMISTRY METHOD 09/23/2024 4:37 PM [facility] Total Protein 7.1 6.0 - 8.0 g/dL LAB CHEMISTRY METHOD 09/23/2024 4:37 PM [facility] Albumin 3.2 3.2 - 5.0 g/dL LAB CHEMISTRY METHOD 09/23/2024 4:37 PM [facility] Total Bilirubin 0.6 0.0 - 1.4 mg/dL LAB CHEMISTRY METHOD 09/23/2024 4:37 PM [facility] Blood Venous blood specimen / Unknown Venipuncture / Unknown 09/23/2024 8:20 AM EST 09/23/2024 12:06 PM EST us Amina Burciaga MD LAB BLOOD ORDERABLES Final Resul t [facility] [address] [place] [address], * (ABNORMAL) Complete blood count (09/23/2024 8:20 AM EST) [facility] WBC 6.2 4.8 - 10.8 K/mcL LAB HEMETOLOGY METHOD 09/23/2024 12:38 PM [facility] RBC 3.60(L) 3.80 - 4.80 M/mcL LAB HEMETOLOGY METHOD 09/23/2024 12:38 PM [facility] Hemoglobin 10.5(L) 11.5 - 16.0 g/dL LAB HEMETOLOGY METHOD 09/23/2024 12:38 PM [facility] Hematocrit 36.5 35.0 - 47.0 % LAB HEMETOLOGY METHOD 09/23/2024 12:38 PM [facility] MCV 100.3(H) 79.0 - 98.0 FL LAB HEMETOLOGY METHOD 09/23/2024 12:38 PM [facility] MCH 28.8 27.0 - 32.0 pcg LAB HEMETOLOGY METHOD 09/23/2024 12:38 PM [facility] MCHC 28.8(L) 32.0 - 37.0 g/dL LAB HEMETOLOGY METHOD 09/23/2024 12:38 PM [facility] RDW 18.4(H) 11.0 - 15.0 % LAB HEMETOLOGY METHOD 09/23/2024 12:38 PM [facility] Platelets 254 130 - 400 K/mcL LAB HEMETOLOGY METHOD 09/23/2024 12:38 PM [facility] MPV 10.7 7.0 - 11.0 FL LAB HEMETOLOGY METHOD 09/23/2024 12:38 PM [facility] NRBC 0.0 <1.0 % LAB HEMETOLOGY METHOD 09/23/2024 12:38 PM EST [facility] NRBC Absolute 0.00 <0.10 K/mcL LAB HEMETOLOGY METHOD 09/23/2024 12:38 PM EST [facility] Blood Venous blood specimen / Unknown Venipuncture / Unknown 09/23/2024 8:20 AM EST 09/23/2024 12:06 PM EST us Amina Burciaga MD LAB BLOOD ORDERABLES Final Resul t [facility] [address] [place] [address], documented in this encounter Visit Diagnoses Diagnosis Type 2 diabetes mellitus with unspecified complications (CMS/HCC V24, CMS/HCC V28) Unspecified systolic (congestive) heart failure (CMS/HCC V24, CMS/HCC V28) documented in this encounter Care Teams Equipment Installer Relationship Specialty Start Date End Date Amina Burciaga MD [address] [place] [address] PCP - General Hospitalist Medicine 09/11/24 documented as of this encounter
--- OUTSIDE RECORDS SUMMARY | 2025-06-15 05:43 | XMS_ITS | Encounter Summary ---
Author Organization [facility] Address [address] [place] [address] Care Team Providers Care Electric Motor Controls Assembler Name Role Phone Amina Burciaga MD Primary Care Provider [phone] Encounter Details Date Type Department Care Team (Late st Contact Info) Description 08/03/2024 Lab Requisition [facility] - Main Lab 299 [facility] [place] [address] Hortencia Mcclellan MD [address] [id number] Type 2 diabetes mellitus without complications (CMS/HCC [...] mmol/L LAB CHEMISTRY METHOD 08/04/2024 9:42 AM [facility] Potassium 3.6 3.5 - 5.5 mmol/L LAB CHEMISTRY METHOD 08/04/2024 9:42 AM [facility] Chloride 106 96 - 110 mmol/L LAB CHEMISTRY METHOD 08/04/2024 9:42 AM [facility] CO2 29 21 - 32 mmol/L LAB CHEMISTRY METHOD 08/04/2024 9:42 AM [facility] Anion Gap 8 3 - 11 LAB CHEMISTRY METHOD 08/04/2024 9:42 AM [facility] Glucose 64(L) 70 - 100 mg/dL LAB CHEMISTRY METHOD 08/04/2024 9:42 AM [facility] BUN 44(H) 5 - 25 mg/dL LAB CHEMISTRY METHOD 08/04/2024 9:42 AM [facility] Creatinine 2.43(H) 0.50 - 1.10 mg/dL LAB CHEMISTRY METHOD 08/04/2024 9:42 AM [facility] eGFR 20(L) >=60 mL/min/1. 73m2 LAB CHEMISTRY METHOD 08/04/2024 9:42 AM [facility] Comment:Calculation based on the Chronic Kidney Disease Epidemiology Collaboration (CKD-EPI) equation refit without adjustment for race. BUN/Creatinine Ratio 18.1 LAB CHEMISTRY METHOD 08/04/2024 9:42 AM [facility] Calcium 8.8 8.5 - 10.5 mg/dL LAB CHEMISTRY METHOD 08/04/2024 9:42 AM [facility] Blood Venous blood specimen / Unknown Venipuncture / Unknown 08/04/2024 6:38 AM EST 08/04/2024 8:24 AM EST us Hortencia Mcclellan MD LAB BLOOD ORDERABLES Fin al Result [facility] [address] [place] [address], * (ABNORMAL) Complete blood count (08/04/2024 6:38 AM EST) [facility] WBC 4.5(L) 4.8 - 10.8 K/mcL LAB HEMETOLOGY METHOD 08/04/2024 9:19 AM [facility] RBC 3.20(L) 3.80 - 4.80 M/mcL LAB HEMETOLOGY METHOD 08/04/2024 9:19 AM [facility] Hemoglobin 9.0(L) 11.5 - 16.0 g/dL LAB HEMETOLOGY METHOD 08/04/2024 9:19 AM [facility] Hematocrit 31.8(L) 35.0 - 47.0 % LAB HEMETOLOGY METHOD 08/04/2024 9:19 AM [facility] MCV 100.0(H) 79.0 - 98.0 FL LAB HEMETOLOGY METHOD 08/04/2024 9:19 AM [facility] MCH 28.3 27.0 - 32.0 pcg LAB HEMETOLOGY METHOD 08/04/2024 9:19 AM [facility] MCHC 28.3(L) 32.0 - 37.0 g/dL LAB HEMETOLOGY METHOD 08/04/2024 9:19 AM [facility] RDW 18.9(H) 11.0 - 15.0 % LAB HEMETOLOGY METHOD 08/04/2024 9:19 AM [facility] Platelets 188 130 - 400 K/mcL LAB HEMETOLOGY METHOD 08/04/2024 9:19 AM [facility] MPV 10.6 7.0 - 11.0 FL LAB HEMETOLOGY METHOD 08/04/2024 9:19 AM [facility] NRBC 0.0 <1.0 [...] MD LAB BLOOD ORDERABLES Fin al Result [facility] [address] [place] [address], documented in this encounter Visit Diagnoses Diagnosis Type 2 diabetes mellitus without complications (CMS/HCC V24, CMS/HCC V28) Heart failure, unspecified (CMS/HCC V24, CMS/HCC V28) Heart failure, unspecified documented in this encounter Care Teams Electric Motor Controls Assembler Relationship Specialty Start Date End Date Amina Burciaga MD [address] [place] [address] PCP - General Hospitalist Medicine 09/11/24 documented as of this encounter
--- OUTSIDE RECORDS SUMMARY | 2025-06-15 05:43 | XMS_ITS | Clinical Summary ---
Author Organization [facility] Address [address] [place] [address] Care Team Providers Care Iuss Analyst Name Role Phone Dandre Chavez MD Primary Care Provider [phone] Allergies Active Allergy Reactions Criticality Noted Date [...] age to complete this topic Care Teams Iuss Analyst Relationship Specialty Start Date End Date Dandre Chavez MD [address] [place] [address] [place] [phone] PCP - General Internal Medicine 11/06/22
--- OUTSIDE RECORDS SUMMARY | 2025-06-15 05:43 | XMS_ITS | Encounter Summary ---
Author Organization [facility] Address [address] [place] [phone] Care Team Providers Care Insurance Loss Assessor Name Role Phone Amina Burciaga MD Primary Care Provider [phone] Encounter Details Date Type Department Care Team (Late st Contact Info) Description 09/30/2024 Lab Requisition [facility] - Main Lab 299 [facility] [place] [address] Isaac Stark MD [address] [place] [address] [place] [address] Heart failure, unspecified [...] (ABNORMAL) Vitamin B12 (09/30/2024 9:57 AM EST) [facility] Vitamin B-12 1,028(H) 250 - 900 pcg/mL LAB CHEMISTRY METHOD 09/30/2024 1:04 PM [facility] Blood Venous blood specimen / Unknown Venipuncture / Unknown 09/30/2024 9:57 AM EST 09/30/2024 10:50 AM EST us Isaac Stark MD LAB BLOOD ORDERABLES Final Resu lt [facility] [address] [place] [address], [place] [phone] * (ABNORMAL) Comprehensive metabolic panel (09/30/2024 9:57 AM EST) [facility] Sodium 138 133 - 145 mmol/L LAB [...] lt [facility] [address] [place] [address], * (ABNORMAL) Complete blood count (09/30/2024 9:57 AM EST) [facility] WBC 5.9 4.8 - 10.8 K/mcL LAB [...] ORDERABLES Final Resu lt Performing Organization Address City/[facility]/ZIP Co de Phone Number [facility] [address] [place] [address], [place] [phone] * Vitamin D 25 hydroxy (09/30/2024 9:57 AM EST) Vit D, 25-Hydroxy 54.9 30.0 - 80.0 ng/mL LAB CHEMISTRY METHOD 09/30/2024 12:48 PM EST [facility] Blood Venous blood specimen / Unknown Venipuncture / Unknown 09/30/2024 9:57 AM EST 09/30/2024 10:50 AM EST us Isaac Stark MD LAB BLOOD ORDERABLES Final Resu lt Performing Organization Address [facility]/ZIP Co de Phone Number [facility] [address] [place] [address], [place] [phone] documented in this encounter Visit Diagnoses Diagnosis Heart failure, unspecified (CMS/HCC V24, CMS/HCC V28) Heart failure, unspecified Vitamin D deficiency, unspecified documented in this encounter Care Teams Insurance Loss Assessor Relationship Specialty Start Date End Date Amina Burciaga MD [address] [place] [phone] PCP - General Hospitalist Medicine 09/11/24 documented as of this encounter
--- OUTSIDE RECORDS SUMMARY | 2025-06-15 05:43 | XMS_ITS | Encounter Summary ---
Author Organization [facility] Address [address] [place] [address] Care Team Providers Care Sign Designer Name Role Phone Amina Burciaga MD Primary Care Provider [phone] Encounter Details Date Type Department Care Team (Late st Contact Info) Description 07/10/2024 Lab Requisition [facility] - Main Lab 299 [facility] [place] [address] Lloyd Jernigan MD [address] [place] [address] Unspecified dementia, unspecified severity, without behavioral disturbance, [...] mmol/L LAB CHEMISTRY METHOD 07/10/2024 9:59 AM [facility] Potassium 4.4 3.5 - 5.5 mmol/L LAB CHEMISTRY METHOD 07/10/2024 9:59 AM [facility] Chloride 103 96 - 110 mmol/L LAB CHEMISTRY METHOD 07/10/2024 9:59 AM [facility] CO2 31 21 - 32 mmol/L LAB CHEMISTRY METHOD 07/10/2024 9:59 AM [facility] Anion Gap 5 3 - 11 LAB CHEMISTRY METHOD 07/10/2024 9:59 AM [facility] Glucose 115(H) 70 - 100 mg/dL LAB CHEMISTRY METHOD 07/10/2024 9:59 AM [facility] BUN 62(H) 5 - 25 mg/dL LAB CHEMISTRY METHOD 07/10/2024 9:59 AM [facility] Creatinine 2.86(H) 0.50 - 1.10 mg/dL LAB CHEMISTRY METHOD 07/10/2024 9:59 AM [facility] eGFR 16(L) >=60 mL/min/1. 73m2 LAB CHEMISTRY METHOD 07/10/2024 9:59 AM [facility] Comment:Calculation based on the Chronic Kidney Disease Epidemiology Collaboration (CKD-EPI) equation refit without adjustment for race. BUN/Creatinine Ratio 21.7 LAB CHEMISTRY METHOD 07/10/2024 9:59 AM [facility] Calcium 9.3 8.5 - 10.5 mg/dL LAB CHEMISTRY METHOD 07/10/2024 9:59 AM [facility] Blood Venous blood specimen / Unknown Venipuncture / Unknown 07/10/2024 6:29 AM EST 07/10/2024 9:00 AM EST us Lloyd Jernigan MD LAB BLOOD ORDERABLES Final R esult [facility] [address] [place] [address], * (ABNORMAL) Complete blood count (07/10/2024 6:29 AM EST) WBC 5.3 4.8 - 10.8 K/mcL LAB HEMETOLOGY METHOD 07/10/2024 9:47 AM [facility] RBC 3.20(L) 3.80 - 4.80 M/mcL LAB HEMETOLOGY METHOD 07/10/2024 9:47 AM [facility] Hemoglobin 8.9(L) 11.5 - 16.0 g/dL LAB HEMETOLOGY METHOD 07/10/2024 9:47 AM [facility] Hematocrit 32.0(L) 35.0 - 47.0 % LAB HEMETOLOGY METHOD 07/10/2024 9:47 AM [facility] MCV 101.6(H) 79.0 - 98.0 FL LAB HEMETOLOGY METHOD 07/10/2024 9:47 AM [facility] MCH 28.3 27.0 - 32.0 pcg LAB HEMETOLOGY METHOD 07/10/2024 9:47 AM [facility] MCHC 27.8(L) 32.0 - 37.0 g/dL LAB HEMETOLOGY METHOD 07/10/2024 9:47 AM [facility] RDW 20.3(H) 11.0 - 15.0 % LAB HEMETOLOGY METHOD 07/10/2024 9:47 AM [facility] Platelets 239 130 - 400 K/mcL LAB HEMETOLOGY METHOD 07/10/2024 9:47 AM [facility] MPV 10.2 7.0 - [...] ORDERABLES Final R esult Performing Organization Address City/[facility]/ZIP Co de Phone Number [facility] [address] [place] [address], [place] [phone] * Hemoglobin A1c (07/10/2024 6:29 AM EST) [...] Final R esult [facility] [address] [place] [address], [place] [phone] documented in this encounter Visit Diagnoses Diagnosis Unspecified dementia, unspecified severity, without behavioral disturbance, psychotic disturbance, mood disturbance, and anxiety (CMS/HCC V24, CMS/HCC V28) documented in this encounter Care Teams Sign Designer Relationship Specialty Start Date End Date Amina Burciaga MD [address] [place] [address] PCP - General Hospitalist Medicine 09/11/24 documented as of this encounter
--- OUTSIDE RECORDS SUMMARY | 2025-06-15 05:43 | XMS_ITS | Encounter Summary ---
Author Organization [facility] Address [address] [place] [address] Care Team Providers Care Donor Relations Coordinator Name Role Phone Amina Burciaga MD Primary Care Provider [phone] Encounter Details Date Type Department Care Team (Late st Contact Info) Description 07/27/2024 Lab Requisition [facility] - Main Lab 299 [facility] [place] [address] Hortencia Mcclellan MD [address] [phone] Type 2 diabetes mellitus without complications (CMS/HCC [...] mmol/L LAB CHEMISTRY METHOD 07/28/2024 8:47 AM [facility] Potassium 4.3 3.5 - 5.5 mmol/L LAB CHEMISTRY METHOD 07/28/2024 8:47 AM [facility] Chloride 107 96 - 110 mmol/L LAB CHEMISTRY METHOD 07/28/2024 8:47 AM [facility] CO2 25 21 - 32 mmol/L LAB CHEMISTRY METHOD 07/28/2024 8:47 AM [facility] Anion Gap 10 3 - 11 LAB CHEMISTRY METHOD 07/28/2024 8:47 AM [facility] Glucose 49(L) 70 - 100 mg/dL LAB CHEMISTRY METHOD 07/28/2024 8:47 AM [facility] BUN 45(H) 5 - 25 mg/dL LAB CHEMISTRY METHOD 07/28/2024 8:47 AM [facility] Creatinine 2.36(H) 0.50 - 1.10 mg/dL LAB CHEMISTRY METHOD 07/28/2024 8:47 AM [facility] eGFR 21(L) >=60 mL/min/1. 73m2 LAB CHEMISTRY METHOD 07/28/2024 8:47 AM [facility] Comment:Calculation based on the Chronic Kidney Disease Epidemiology Collaboration (CKD-EPI) equation refit without adjustment for race. BUN/Creatinine Ratio 19.1 LAB CHEMISTRY METHOD 07/28/2024 8:47 AM [facility] Calcium 9.2 8.5 - 10.5 mg/dL LAB CHEMISTRY METHOD 07/28/2024 8:47 AM [facility] Blood Venous blood specimen / Unknown Venipuncture / Unknown 07/28/2024 5:41 AM EST 07/28/2024 8:02 AM EST us Hortencia Mcclellan MD LAB BLOOD ORDERABLES Fin al Result [facility] [address] [place] [address], * (ABNORMAL) Complete blood count (07/28/2024 5:41 AM EST) [facility] WBC 4.1(L) 4.8 - 10.8 K/mcL LAB HEMETOLOGY METHOD 07/28/2024 8:20 AM [facility] RBC 3.00(L) 3.80 - 4.80 M/mcL LAB HEMETOLOGY METHOD 07/28/2024 8:20 AM [facility] Hemoglobin 8.6(L) 11.5 - 16.0 g/dL LAB HEMETOLOGY METHOD 07/28/2024 8:20 AM [facility] Hematocrit 29.9(L) 35.0 - 47.0 % LAB HEMETOLOGY METHOD 07/28/2024 8:20 AM [facility] MCV 99.7(H) 79.0 - 98.0 FL LAB HEMETOLOGY METHOD 07/28/2024 8:20 AM [facility] MCH 28.7 27.0 - 32.0 pcg LAB HEMETOLOGY METHOD 07/28/2024 8:20 AM [facility] MCHC 28.8(L) 32.0 - 37.0 g/dL LAB HEMETOLOGY METHOD 07/28/2024 8:20 AM [facility] RDW 19.6(H) 11.0 - 15.0 % LAB HEMETOLOGY METHOD 07/28/2024 8:20 AM [facility] Platelets 162 130 - 400 K/mcL LAB HEMETOLOGY METHOD 07/28/2024 8:20 AM [facility] MPV 10.5 7.0 - 11.0 FL LAB HEMETOLOGY METHOD 07/28/2024 8:20 AM [facility] NRBC 0.0 [...] al Result [facility] ([facility]) [facility] [address] [place] [address], documented in this encounter Visit Diagnoses Diagnosis Type 2 diabetes mellitus without complications (CMS/HCC V24, CMS/HCC V28) Heart failure, unspecified (CMS/HCC V24, CMS/HCC V28) Heart failure, unspecified documented in this encounter Care Teams Donor Relations Coordinator Relationship Specialty Start Date End Date Amina Burciaga MD [address] [place] [address] PCP - General Hospitalist Medicine 09/11/24 documented as of this encounter
--- OUTSIDE RECORDS SUMMARY | 2025-06-15 05:43 | XMS_ITS | Encounter Summary ---
Author Organization [facility] Address [address] [place] [phone] Care Team Providers Care Superintendent Oil Field Drilling Name Role Phone Amina Burciaga MD Primary Care Provider [phone] Encounter Details Date Type Department Care Team (Latest Contact Info) Description 09/11/2024 Lab Requisition [facility] - Main Lab 299 [facility] [place] [address] Amina Burciaga MD [address] [place] [address] Other manager terminal (current) drug [...] Results * Magnesium (09/11/2024 9:47 AM EST) [facility] Magnesium 2.1 1.9 - 2.6 mg/dL LAB CHEMISTRY METHOD 09/11/2024 12:[address] [facility] Blood Venous blood specimen / Unknown Venipuncture / Unknown 09/11/2024 9:47 AM EST 09/11/2024 11:29 AM EST Amina Burciaga MD LAB BLOOD ORDERABLES Final Resul t [facility] [address] [place] [address], * (ABNORMAL) Basic metabolic panel (09/11/2024 9:47 AM EST) [facility] Sodium 137 133 - 145 mmol/L LAB CHEMISTRY METHOD 09/11/2024 12:[address] [facility] Potassium 3.9 3.5 - 5.5 mmol/L LAB CHEMISTRY METHOD 09/11/2024 12:[address] [facility] Chloride 103 96 - 110 mmol/L LAB CHEMISTRY METHOD 09/11/2024 12:[address] [facility] CO2 26 21 - 32 mmol/L LAB CHEMISTRY METHOD 09/11/2024 12:[address] [facility] Anion Gap 8 3 - 11 LAB CHEMISTRY METHOD 09/11/2024 12:[address] [facility] Glucose 112(H) 70 - 100 mg/dL LAB CHEMISTRY METHOD 09/11/2024 12:[address] [facility] BUN 50(H) 5 - 25 mg/dL LAB CHEMISTRY METHOD 09/11/2024 12:[address] [facility] Creatinine 2.73(H) 0.50 - 1.10 mg/dL LAB CHEMISTRY METHOD 09/11/2024 12:[address] [facility] eGFR 17(L) >=60 mL/min/1. 73m2 LAB CHEMISTRY METHOD 09/11/2024 12:[address] [facility] Comment:Calculation based on the Chronic Kidney Disease Epidemiology Collaboration (CKD-EPI) equation refit without adjustment for race. BUN/Creatinine Ratio 18.3 LAB CHEMISTRY METHOD 09/11/2024 12:[address] [facility] Calcium 8.6 8.5 - 10.5 mg/dL LAB CHEMISTRY METHOD 09/11/2024 12:[address] [facility] Blood Venous blood specimen / Unknown Venipuncture / Unknown 09/11/2024 9:47 AM EST 09/11/2024 11:29 AM EST Amina Burciaga MD LAB BLOOD ORDERABLES Final Resul t [facility] [address] [place] [address], * (ABNORMAL) Complete blood count (09/11/2024 9:47 AM EST) WBC 6.9 4.8 - 10.8 K/mcL LAB HEMETOLOGY METHOD 09/11/2024 11:[address] [facility] RBC 3.10(L) 3.80 - 4.80 M/mcL LAB HEMETOLOGY METHOD 09/11/2024 11:[address] [facility] Hemoglobin 9.0(L) 11.5 - 16.0 g/dL LAB HEMETOLOGY METHOD 09/11/2024 11:[address] [facility] Hematocrit 31.6(L) 35.0 - 47.0 % LAB HEMETOLOGY METHOD 09/11/2024 11:[address] [facility] MCV 102.6(H) 79.0 - 98.0 FL LAB HEMETOLOGY METHOD 09/11/2024 11:47 AM EST [facility] MCH 29.2 27.0 - 32.0 pcg LAB HEMETOLOGY METHOD 09/11/2024 11:[address] [facility] MCHC 28.5(L) 32.0 - 37.0 g/dL LAB HEMETOLOGY METHOD 09/11/2024 11:47 AM EST [facility] RDW 20.6(H) 11.0 - 15.0 % LAB HEMETOLOGY METHOD 09/11/2024 11:47 AM EST [facility] Platelets 180 130 - 400 K/mcL LAB HEMETOLOGY METHOD 09/11/2024 11:[address] [facility] MPV 9.9 7.0 - 11.0 FL LAB HEMETOLOGY METHOD 09/11/2024 11:47 AM EST [facility] NRBC 0.0 <1.0 % LAB HEMETOLOGY METHOD 09/11/2024 11:[address] [facility] NRBC Absolute 0.00 <0.10 K/mcL LAB HEMETOLOGY METHOD 09/11/2024 11:[address] [facility] Blood Venous blood specimen / Unknown Venipuncture / Unknown 09/11/2024 9:47 AM EST 09/11/2024 11:29 AM EST us Amina Burciaga MD LAB BLOOD ORDERABLES Final Resul t [facility] [address] [place] [address], documented in this encounter Visit Diagnoses Diagnosis Other manager terminal (current) drug therapy Type 2 diabetes mellitus without complications (CMS/HCC V24, CMS/HCC V28) Heart failure, unspecified (CMS/HCC V24, CMS/HCC V28) Heart failure, unspecified documented in this encounter Care Teams Superintendent Oil Field Drilling Relationship Specialty Start Date End Date Amina Burciaga MD [address] [place] [phone] PCP - General Hospitalist Medicine 09/11/24 documented as of this encounter
--- OUTSIDE RECORDS SUMMARY | 2025-06-15 05:43 | XMS_ITS | Encounter Summary ---
Author Organization [facility], Address [address] [place] [address] Phone Care Team Providers Care Technician Support Engineer Name Role Phone Dandre Chavez MD Primary Care Provider [phone] Encounter Details Date Type Department Care Team (Late st Contact Info) Description 11/29/2023 Documentation Only [facility], [address] [place] [address] Radha Chatterjee [place] [address] [place] [phone] Social History Tobacco Use Types Packs/Day Years [...] on filedocumented in this encounter Care Teams Technician Support Engineer Relationship Specialty Start Date End Date Dandre Chavez MD [address] [place] [address], [address] [place], [place] PCP - General 07/07/19 documented as of this encounter
--- OUTSIDE RECORDS SUMMARY | 2025-06-15 05:43 | XMS_ITS | Encounter Summary ---
Author Organization [facility] [place], Address [address] [place] [address] Phone Care Team Providers Care Clinical Audiologist Name Role Phone Dandre Chavez MD Primary Care Provider [phone] Encounter Details Date Type Department Care Team (Late st Contact Info) Description 02/08/2022 Documentation Only [facility], [address] [place] [address] Faina Villegas PA Social History Tobacco Use [...] on filedocumented in this encounter Care Teams Clinical Audiologist Relationship Specialty Start Date End Date Dandre Chavez MD [address] [place] [address], [address] [place], [place] PCP - General 07/07/19 documented as of this encounter
--- OUTSIDE RECORDS SUMMARY | 2025-06-15 05:43 | XMS_ITS | Encounter Summary ---
Author Organization [facility] [place], Address [address] [place] [address] Phone Care Team Providers Care Pound Keeper Name Role Phone Dandre Chavez MD Primary Care Provider [phone] Encounter Details Date Type Department Care Team (Late st Contact Info) Description 08/02/2022 Documentation Only [facility] [place], [address] [place] [address] Faina Villegas PA Social History Tobacco Use [...] on filedocumented in this encounter Care Teams Pound Keeper Relationship Specialty Start Date End Date Dandre Chavez MD [address] [place] [address], [address] [place], [place] PCP - General 07/07/19 documented as of this encounter
--- OUTSIDE RECORDS SUMMARY | 2025-06-15 05:43 | XMS_ITS | Encounter Summary ---
Author Organization [facility] Address [address] [place] [address] Phone Care Team Providers Care Kettle Worker Name Role Phone Dandre Chavez MD Primary Care Provider [phone] Miguel Enciso MD Unavailable [phone] Encounter Details Date Type Department Care Team (Latest Contact Info) Description 12/16/2018 Ancillary Orders Non-Invasive Cardiology [address] [place] [address] Cathy Browning NP [address] [place] [address] Atherosclerosis of [place] coronary artery of [place] heart with angina pectoris Social History Tobacco [...] EDT) Max BP Systolic 150 mmHg [facility] Max BP Diastolic 80 mmHg [facility] Max HR 89 BPM [facility] Resting HR 78 BPM [facility] Resting BP Systolic 150 mmHg [facility] Resting BP Diastolic 80 mmHg [facility] Peak METS 1.0 METS [facility] Peak HR 83 BPM [facility] Anatomical Region Laterality Modality Heart Other [...] this encounter Visit Diagnoses Diagnosis 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 It is not the complete legal health record.[facility]
--- OUTSIDE RECORDS SUMMARY | 2025-06-15 05:43 | XMS_ITS | Clinical Summary ---
Author Organization [facility] Address [address] [place] [address] Phone Care Team Providers Care Farm Field Manager Name Role Phone Dandre Chavez MD Primary Care Provider [phone] Miguel Enciso MD Unavailable [phone] Allergies Active Allergy Reactions Criticality Noted Date [...] Active ferrous sulfate 325 mg (65 mg [place] iron) EC tablet Take 325 mg by [...] focus on healthy food choices. Atherosclerosis of [place] co ronary artery of [place] heart with angina pectoris 10/28/2018 Assessment & [...] (04/14/2020 10:40 PM EDT): History of inferior CO in 2013 with a stent to her [...] LAD. She presented with a non-ST relation CO September 2018 and had a new culprit [...] will need to have this completed at [facility]. She is aware that this is going [...] December. She will have this completed at [facility] due to having her stress test [...] this topic Medical Devices Implanted Type Area Underliner Device Identifier Shelf Expiration Date Model / Serial / Lot Sensor Pulmonary Artery Delivery System Cardiomems - [id number] Implanted:Qt y: 1 on 04/03/2022 by Miguel Enciso MD at [facility] Implantable Monitor Left: Arterial [employer] [id number] 12/15/2023 CM PATIENT SYSTEM / [id number] / Description:Pulmonary artery Procedures Procedure Name Priority Date/Time Associated Diagnosis Comments COMPREHENSIVE METABOLIC PANEL Routine 04/18/2022 2:39 PM EDT Atherosclerosis of [place] coronary artery of [place] heart with angina pectoris Essential hypertension Ischemic cardiomyopathy PAD (peripheral artery disease) from Last 3 Months or Most Recently Relevant to Health Maintenance Results * (ABNORMAL) Comprehensive metabolic panel (04/18/2022 2:39 PM EDT) SODIUM 143 133 - 146 mmol/L [facility] POTASSIUM 4.5 3.3 - 5.1 mmol/L [facility] CHLORIDE 100 96 - 108 mmol/L [facility] CO2 34 21 - 35 mmol/L [facility] BUN 38(H) 6 - 19 mg/dL [facility] CREATININE 1.40 0.5 - 1.5 mg/dL [facility] GLUCOSE 163(H) 70 - 99 mg/dL [facility] ALBUMIN 4.0 3.9 - 4.8 g/dL [facility] TOTAL PROTEIN 7.5 6.5 - 8.0 g/dL [facility] CALCIUM 10.1 8.4 - 10.3 mg/dL [facility] ALKALINE PHOSPHATASE 94 39 - 117 U/L [facility] TOTAL BILIRUBIN 0.6 0.0 - 1.2 mg/dL [facility] AST 26 0 - 37 U/L [facility] ALT 12 0 - 40 U/L [facility] GLOBULIN 3.5 1 - 4.8 g/dL [facility] EGFR 39(L) >59 mL/min/1.7 3m2 [facility] Comment:Estimated glomerular filtration rate calculated using the CKD-EPI refit equation. ANION GAP 14 10 - 20 mmol/L [facility] Blood 04/18/2022 2:39 PM EDT 04/18/2022 2:42 PM EDT us Miguel Enciso MD LAB BLOOD ORDERABLES Final Result [facility] [address] [place] [address] from Last 3 Months or Most Recently Relevant to Health Maintenance Insurance * Guarantor: Amina Zamora Account Type Relation to Patient Date of Phone Billing Address Personal/Family Self 1945 [address] [place] [address] MEDICARE PART A & B [place] MEDICARE PREFERRED HMO [facility]PLACEMENT [facility] [address] MEDICARE PART A & B [place] MEDICARE PREFERRED HMO REPLACEMENT [facility] [place] [address] MEDICARE PART A & B Member Subscriber Plan / Payer (Ef fective 2012-Present) Name:Amina Zamora Member ID:[id number] Relation to Subscriber:Self Name:Amina Zamora Subscriber ID:[id number] Payer ID:[id number] Group ID:Not on file Type:Medicare Address: [place] [address] [place] [phone] [facility] MEDICARE PREFERRED HMO REPLACEMENT MEDICARE PART A & B [place] MEDICARE PREFERRED HMO REPLACEMENT MEDICARE PART A & B [place] MEDICARE PREFERRED HMO REPLACEMENT [facility] MEDICARE PART A & B [place] MEDICARE PREFERRED HMO REPLACEMENT MEDICARE PART A & B [place] MEDICARE PREFERRED HMO REPLACEMENT [facility] MEDICARE PART A & B [place] MEDICARE PREFERRED HMO REPLACEMENT [facility] MEDICARE PART A & B [place] MEDICARE PREFERRED HMO REPLACEMENT [facility] QMB Care Teams Farm Field Manager Relationship Specialty Start Date End Date Dandre Chavez MD [address] [place] [address] PCP - General 09/05/17 Miguel Enciso MD [address] [place] [address] [email or web address] Cardiology 05/28/24 Additional Source Comments The information contained in this document represents components of the legal health record. It is not the complete legal health record.[facility]
--- OUTSIDE RECORDS SUMMARY | 2025-06-15 05:43 | XMS_ITS | Encounter Summary ---
Author Organization [facility] Address [address] [place], [place] [address] [place] [address] Phone Care Team Providers Care Imaging Scheduler Name Role Phone Dandre Chavez MD Primary Care Provider [phone] Miguel Enciso MD Unavailable [phone] Encounter Details Date Type Department Care Team (Late st Contact Info) Description 07/01/2024 Procedure Pass [facility] Cardiology Referral Images [address] [facility] [address] [place] [address] Social History Tobacco Use Types Packs/Day Years [...] on filedocumented in this encounter Care Teams Imaging Scheduler Relationship Specialty Start Date End Date Dandre Chavez MD [address] [place] [address] PCP - General 09/05/17 Miguel Enciso MD [address] [place] [address] [email or web address] Cardiology 05/28/24 documented as of this encounter Additional Source Comments The information contained in this document represents components of the legal health record. It is not the complete legal health record.[facility]
--- OUTSIDE RECORDS SUMMARY | 2025-06-15 05:43 | XMS_ITS | Encounter Summary ---
Author Organization [facility], Address [address] [place] [address] Phone Care Team Providers Care Reinforced Steel Placing Supervisor Name Role Phone Dandre Chavez MD Primary Care Provider [phone] Encounter Details Date Type Department Care Team (Late st Contact Info) Description 12/31/2022 Documentation Only [facility], [address] [place] [address] Melissa Delgadillo [address] [place] [phone] Social History Tobacco Use Types Packs/Day Years [...] on filedocumented in this encounter Care Teams Reinforced Steel Placing Supervisor Relationship Specialty Start Date End Date Dandre Chavez MD [address] [place] [address], [address] [place], [place] PCP - General 07/07/19 documented as of this encounter
--- OUTSIDE RECORDS SUMMARY | 2025-06-15 05:43 | XMS_ITS | Encounter Summary ---
Author Organization [facility] [place], Address [address] [place] [address] Phone Care Team Providers Care Heat Treat Furnace Operator Name Role Phone Dandre Chavez MD Primary Care Provider [phone] Encounter Details Date Type Department Care Team (Late st Contact Info) Description 10/30/2022 Documentation Only [facility] [place], [address] [place] [address] Melissa Delgadillo [address] [place] [phone] Social History Tobacco Use Types Packs/Day Years [...] filedocumented in this encounter Care Teams Heat Treat Furnace Operator Relationship Specialty Start Date End Date Dandre Chavez MD [address] [place] [address], [address] [place], [place] PCP - General 07/07/19 documented as of this encounter
--- OUTSIDE RECORDS SUMMARY | 2025-06-15 05:43 | XMS_ITS | Encounter Summary ---
Author Organization [facility] Address [address] [place] [address] Care Team Providers Care Stage Rigger Name Role Phone Amina Burciaga MD Primary Care Provider [phone] Encounter Details Date Type Department Care Team (Late st Contact Info) Description 07/13/2024 Lab Requisition [facility] - Main Lab [address] [facility] [place] [address] Hortencia Mcclellan MD [address] [id number] Type 2 diabetes mellitus without complications (CMS/HCC [...] mmol/L LAB CHEMISTRY METHOD 07/14/2024 9:03 AM [facility] Potassium 3.8 3.5 - 5.5 mmol/L LAB CHEMISTRY METHOD 07/14/2024 9:03 AM [facility] Chloride 105 96 - 110 mmol/L LAB CHEMISTRY METHOD 07/14/2024 9:03 AM [facility] CO2 28 21 - 32 mmol/L LAB CHEMISTRY METHOD 07/14/2024 9:03 AM [facility] Anion Gap 6 3 - 11 LAB CHEMISTRY METHOD 07/14/2024 9:03 AM [facility] Glucose 105(H) 70 - 100 mg/dL LAB CHEMISTRY METHOD 07/14/2024 9:03 AM [facility] BUN 70(H) 5 - 25 mg/dL LAB CHEMISTRY METHOD 07/14/2024 9:03 AM [facility] Creatinine 3.26(H) 0.50 - 1.10 mg/dL LAB CHEMISTRY METHOD 07/14/2024 9:03 AM [facility] eGFR 14(L) >=60 mL/min/1. 73m2 LAB CHEMISTRY METHOD 07/14/2024 9:03 AM [facility] Comment:Calculation based on the Chronic Kidney Disease Epidemiology Collaboration (CKD-EPI) equation refit without adjustment for race. BUN/Creatinine Ratio 21.5 LAB CHEMISTRY METHOD 07/14/2024 9:03 AM [facility] Calcium 8.6 8.5 - 10.5 mg/dL LAB CHEMISTRY METHOD 07/14/2024 9:03 AM [facility] Blood Venous blood specimen / Unknown Venipuncture / Unknown 07/14/2024 6:08 AM EST 07/14/2024 8:03 AM EST us Hortencia Mcclellan MD LAB BLOOD ORDERABLES Fin al Result [facility] [address] [place] [address], * (ABNORMAL) Complete blood count (07/14/2024 6:08 AM EST) [facility] WBC 5.3 4.8 - 10.8 K/mcL LAB HEMETOLOGY METHOD 07/14/2024 8:32 AM [facility] RBC 3.00(L) 3.80 - 4.80 M/mcL LAB HEMETOLOGY METHOD 07/14/2024 8:32 AM [facility] Hemoglobin 8.3(L) 11.5 - 16.0 g/dL LAB HEMETOLOGY METHOD 07/14/2024 8:32 AM [facility] Hematocrit 29.9(L) 35.0 - 47.0 % LAB HEMETOLOGY METHOD 07/14/2024 8:32 AM [facility] MCV 101.4(H) 79.0 - 98.0 FL LAB HEMETOLOGY METHOD 07/14/2024 8:32 AM [facility] MCH 28.1 27.0 - 32.0 pcg LAB HEMETOLOGY METHOD 07/14/2024 8:32 AM [facility] MCHC 27.8(L) 32.0 - 37.0 g/dL LAB HEMETOLOGY METHOD 07/14/2024 8:32 AM [facility] RDW 20.0(H) 11.0 - 15.0 % LAB HEMETOLOGY METHOD 07/14/2024 8:32 AM [facility] Platelets 198 130 - 400 K/mcL LAB HEMETOLOGY METHOD 07/14/2024 8:32 AM [facility] MPV 10.3 7.0 - 11.0 FL LAB HEMETOLOGY METHOD 07/14/2024 8:32 AM [facility] NRBC 0.0 <1.0 % LAB HEMETOLOGY METHOD 07/14/2024 8:32 AM EST [facility] NRBC Absolute 0.00 <0.10 K/mcL LAB HEMETOLOGY METHOD 07/14/2024 8:32 AM EST [facility] Blood Venous blood specimen / Unknown Venipuncture / Unknown 07/14/2024 6:08 AM EST 07/14/2024 8:03 AM EST us Hortencia Mcclellan MD LAB BLOOD ORDERABLES Fin al Result [facility] [address] [place] [address], documented in this encounter Visit Diagnoses Diagnosis Type 2 diabetes mellitus without complications (CMS/HCC V24, CMS/HCC V28) Heart failure, unspecified (CMS/HCC V24, CMS/HCC V28) Heart failure, unspecified documented in this encounter Care Teams Stage Rigger Relationship Specialty Start Date End Date Amina Burciaga MD [address] [place] [address] PCP - General Hospitalist Medicine 09/11/24 documented as of this encounter
--- OUTSIDE RECORDS SUMMARY | 2025-06-15 05:43 | XMS_ITS | Encounter Summary ---
Author Organization [facility] Address [address] [place] [address] Care Team Providers Care Search Director Name Role Phone Amina Burciaga MD Primary Care Provider [phone] Encounter Details Date Type Department Care Team (Late st Contact Info) Description 07/20/[address] [facility] - Main Lab [address] [facility] [place] [address] Hortencia Mcclellan MD [address] [facility] [address] [place], [place] [id number] Type 2 diabetes mellitus without complications (CMS/HCC [...] Result [facility] [address] [place] [address], * (ABNORMAL) Complete blood count (07/21/2024 5:53 AM EST) [facility] WBC 5.0 4.8 - 10.8 K/mcL LAB [...] Result [facility] [address] [place] [address], documented in this encounter Visit Diagnoses Diagnosis Type 2 diabetes mellitus without complications (CMS/HCC V24, CMS/HCC V28) Heart failure, unspecified (CMS/HCC V24, CMS/HCC V28) Heart failure, unspecified documented in this encounter Care Teams Search Director Relationship Specialty Start Date End Date Amina Burciaga MD [address] [place] [address] PCP - General Hospitalist Medicine 09/11/24 documented as of this encounter
--- OUTSIDE RECORDS SUMMARY | 2025-06-15 05:43 | XMS_ITS | Encounter Summary ---
Author Organization [facility] Address [address] [place] [address] Care Team Providers Care Filling Station Laborer Name Role Phone Amina Burciaga MD Primary Care Provider [phone] Encounter Details Date Type Department Care Team (Late st Contact Info) Description 08/10/2024 Lab Requisition [facility] - Main Lab [address] [facility] [employer] [place] [address] Hortencia Mcclellan MD [address] [id number] Type 2 diabetes mellitus without complications (CMS/HCC [...] unspecified documented in this encounter Care Teams Filling Station Laborer Relationship Specialty Start Date End Date Amina Burciaga MD [address] [place] [address] PCP - General Hospitalist Medicine 09/11/24 documented as of this encounter
--- OUTSIDE RECORDS SUMMARY | 2025-06-15 05:43 | XMS_ITS | Encounter Summary ---
Author Organization [facility] [facility], Address [address] [place] [address] Phone Care Team Providers Care White Goods Appliance Tech Name Role Phone Dandre Chavez MD Primary Care Provider Encounter Details Date Type Department Care Team (Late st Contact Info) Description 01/08/2025 Documentation Only [facility], [address] [place] [address] Radha Chatterjee [place] [address] [place] [phone] Social History Tobacco Use Types Packs/Day Years [...] on filedocumented in this encounter Care Teams White Goods Appliance Tech Relationship Specialty Start Date End Date Dandre Chavez MD [address] [place] [address], [address] [place], [place] PCP - General 07/07/19 documented as of this encounter
--- OUTSIDE RECORDS SUMMARY | 2025-06-15 05:43 | XMS_ITS | Encounter Summary ---
Author Organization [facility] [place], Address [address] [place] [address] Phone Care Team Providers Care Plastics Process Hand Name Role Phone Dandre Chavez MD Primary Care Provider [phone] Encounter Details Date Type Department Care Team (Late st Contact Info) Description 01/14/2023 Documentation Only [facility], [address] [place] [address] Melissa Delgadillo [address] [place] [phone] Social History Tobacco Use Types Packs/Day Years [...] on filedocumented in this encounter Care Teams Plastics Process Hand Relationship Specialty Start Date End Date Dandre Chavez MD [address] [place] [address], [address] [place], [place] PCP - General 07/07/19 documented as of this encounter
--- OUTSIDE RECORDS SUMMARY | 2025-06-15 05:43 | XMS_ITS | Encounter Summary ---
Author Organization [facility], Address [address] [place] [address] Phone Care Team Providers Care Lamination Operator Name Role Phone Dandre Chavez MD Primary Care Provider [phone] Encounter Details Date Type Department Care Team (Late st Contact Info) Description 02/09/2022 Documentation Only [facility], [address] [place] [address] Faina Villegas PA Social History Tobacco Use [...] on filedocumented in this encounter Care Teams Lamination Operator Relationship Specialty Start Date End Date Dandre Chavez MD [address] [place] [address], [address] [place], [place] PCP - General 07/07/19 documented as of this encounter
--- OUTSIDE RECORDS SUMMARY | 2025-06-15 05:43 | XMS_ITS | Encounter Summary ---
Author Organization [facility] Address [address] [place] [address] Care Team Providers Care Rn Intern Name Role Phone Amina Burciaga MD Primary Care Provider [phone] Encounter Details Date Type Department Care Team (Late st Contact Info) Description 07/23/2024 Lab Requisition [facility] - Main Lab [address] [place] [address] Hortencia Mcclellan MD [address] [id number] Chronic kidney disease, unspecified; Type 2 diabetes [...] LAB CHEMISTRY METHOD 07/23/2024 9:13 AM EST [facility] Potassium 3.8 3.5 - 5.5 mmol/L LAB CHEMISTRY METHOD 07/23/2024 9:13 AM EST [facility] Chloride 111(H) 96 - 110 mmol/L LAB CHEMISTRY METHOD 07/23/2024 9:13 AM [facility] CO2 27 21 - 32 mmol/L LAB CHEMISTRY METHOD 07/23/2024 9:13 AM [facility] Anion Gap 6 3 - 11 LAB CHEMISTRY METHOD 07/23/2024 9:13 AM [facility] Glucose 64(L) 70 - 100 mg/dL LAB CHEMISTRY METHOD 07/23/2024 9:13 AM [facility] BUN 62(H) 5 - 25 mg/dL LAB CHEMISTRY METHOD 07/23/2024 9:13 AM [facility] Creatinine 2.70(H) 0.50 - 1.10 mg/dL LAB CHEMISTRY METHOD 07/23/2024 9:13 AM [facility] eGFR 18(L) >=60 mL/min/1. 73m2 LAB CHEMISTRY METHOD 07/23/2024 9:13 AM [facility] Comment:Calculation based on the Chronic Kidney Disease Epidemiology Collaboration (CKD-EPI) equation refit without adjustment for race. BUN/Creatinine Ratio 23.0 LAB CHEMISTRY METHOD 07/23/2024 9:13 AM [facility] Calcium 9.2 8.5 - 10.5 mg/dL LAB CHEMISTRY METHOD 07/23/2024 9:13 AM [facility] Blood Venous blood specimen / Unknown Venipuncture / Unknown 07/23/2024 5:52 AM EST 07/23/2024 8:17 AM EST us Hortencia Mcclellan MD LAB BLOOD ORDERABLES Fin al Result [facility] [address] [place] [address], documented in this encounter Visit Diagnoses Diagnosis Chronic kidney disease, unspecified Type 2 diabetes mellitus without complications (CMS/HCC V24, CMS/HCC V28) documented in this encounter Care Teams Rn Intern Relationship Specialty Start Date End Date Amina Burciaga MD [address] [place] [address] PCP - General Hospitalist Medicine 09/11/24 documented as of this encounter
--- OUTSIDE RECORDS SUMMARY | 2025-06-15 05:43 | XMS_ITS | Encounter Summary ---
Author Organization [facility], Address [address] [place] [address] Phone Care Team Providers Care Watch And Clock Maker And Repairer Name Role Phone Dandre Chavez MD Primary Care Provider [phone] Encounter Details Date Type Department Care Team (Late st Contact Info) Description 09/07/2022 Documentation Only [facility], [address] [place] [address] Faina Villegas PA Social History Tobacco Use [...] on filedocumented in this encounter Care Teams Watch And Clock Maker And Repairer Relationship Specialty Start Date End Date Dandre Chavez MD [address] [place] [address], [address] [place], [place] PCP - General 07/07/19 documented as of this encounter
--- OUTSIDE RECORDS SUMMARY | 2025-06-15 05:43 | XMS_ITS | Encounter Summary ---
Author Organization [facility] Address [address] [place], [place] [address] [place] [address] Phone Care Team Providers Care Bearing Inspector Name Role Phone Dandre Chavez MD Primary Care Provider [phone] Miguel Enciso MD Unavailable [phone] Encounter Details Date Type Department Care Team (Late st Contact Info) Description 07/01/2024 Procedure Pass [place] Card[facility] Referral Images [address] [facility] [address] [place] [address] Social History Tobacco Use Types Packs/Day Years [...] on filedocumented in this encounter Care Teams Bearing Inspector Relationship Specialty Start Date End Date Dandre Chavez MD [address] [place] [address] PCP - General 09/05/17 Miguel Enciso MD [address] [place] [address] [email or web address] Cardiology 05/28/24 documented as of this encounter Additional Source Comments The information contained in this document represents components of the legal health record. It is not the complete legal health record.[facility]
--- OUTSIDE RECORDS SUMMARY | 2025-06-15 05:44 | XMS_ITS | Encounter Summary ---
Author Organization [facility] Address [address] [place] [address] Phone Care Team Providers Care Mushroom Cultivator Name Role Phone Dandre Chavez MD Primary Care Provider [phone] Miguel Enciso MD Unavailable Encounter Details Date Type Department Care Team (Late st Contact Info) Description 08/18/2021 Procedure Pass [facility] [address] [id number] Social History Tobacco Use Types Packs/Day Years [...] on filedocumented in this encounter Care Teams Mushroom Cultivator Relationship Specialty Start Date End Date Dandre Chavez MD [address] [place] [address] [id number] PCP - General 09/05/17 Miguel Enciso MD [address] [place] [address], [address] [place], [place] [phone] Cardiology 05/28/24 documented as of this encounter Additional Source Comments The information contained in this document represents components of the legal health record. It is not the complete legal health record.[facility]
--- OUTSIDE RECORDS SUMMARY | 2025-06-15 05:44 | XMS_ITS | Encounter Summary ---
Author Organization [facility] Address [address] [place] [address] Phone Care Team Providers Care Gas Turbine Powerplant Mechanic Name Role Phone Dandre Chavez MD Primary Care Provider [phone] Miguel Enciso MD Unavailable [phone] Encounter Details Date Type Department Care Team (Late st Contact Info) Description 04/03/2022 Procedure Pass [facility] [address] [place] [address] Social History Tobacco Use Types Packs/Day Years [...] on filedocumented in this encounter Care Teams Gas Turbine Powerplant Mechanic Relationship Specialty Start Date End Date Dandre Chavez MD [address] [id number] PCP - General 09/05/17 Miguel Enciso MD [address] [place] [address], [address] [place], [place] [phone] Cardiology 05/28/24 documented as of this encounter Additional Source Comments The information contained in this document represents components of the legal health record. It is not the complete legal health record.[facility]
--- OUTSIDE RECORDS SUMMARY | 2025-06-15 05:44 | XMS_ITS | Encounter Summary ---
Author Organization [facility] Address [address] [place] [address] Phone Care Team Providers Care Bread Racker Name Role Phone Dandre Chavez MD Primary Care Provider [phone] Miguel Enciso MD Unavailable [phone] Encounter Details Date Type Department Care Team (Late st Contact Info) Description 09/18/2019 Ancillary Orders [facility] [address] 3[address] Floor [place], [place] [phone] Miguel Enciso MD [address] [place] [address], [address] [place], [place] [phone] [email or web address] PVD (peripheral vascular disease) Social History [...] disease documented in this encounter Care Teams Bread Racker Relationship Specialty Start Date End Date Dandre Chavez MD [address] [place] [address] PCP - General 09/05/17 Miguel Enciso MD [address] [place] [address] [address] [place] [address] Cardiology 05/28/24 documented as of this encounter Additional Source Comments The information contained in this document represents components of the legal health record. It is not the complete legal health record.[facility]
--- OUTSIDE RECORDS SUMMARY | 2025-06-15 05:44 | XMS_ITS | Encounter Summary ---
Author Organization [facility] Address [address] [place] [address] Phone Care Team Providers Care Rubber Press Tender Name Role Phone Dandre Chavez MD Primary Care Provider [phone] Miguel Enciso MD Unavailable Encounter Details Date Type Department Care Team (Late st Contact Info) Description 12/21/2022 Procedure Pass Echo [facility] [address] [phone] Social History Tobacco Use Types Packs/Day Years [...] filedocumented in this encounter Care Teams Rubber Press Tender Relationship Specialty Start Date End Date Dandre Chavez MD [address] [place] [address] [id number] PCP - General 09/05/17 Miguel Enciso MD [address] [facility], [address] [place], [place] [phone] Cardiology 05/28/24 documented as of this encounter Additional Source Comments The information contained in this document represents components of the legal health record. It is not the complete legal health record.[facility]
--- OUTSIDE RECORDS SUMMARY | 2025-06-15 05:44 | XMS_ITS | Encounter Summary ---
Author Organization [facility], Address [address] [place] [address] Phone Care Team Providers Care Z Os Mainframe Systems Programmer Name Role Phone Dandre Chavez MD Primary Care Provider [phone] Encounter Details Date Type Department Care Team (Late st Contact Info) Description 09/25/2021 Documentation Only [facility], [address] [place] [address] Faina Villegas PA Social History Tobacco Use [...] on filedocumented in this encounter Care Teams Z Os Mainframe Systems Programmer Relationship Specialty Start Date End Date Dandre Chavez MD [address] [place] [address], [address] [place], [place] PCP - General 07/07/19 documented as of this encounter
--- OUTSIDE RECORDS SUMMARY | 2025-06-15 05:44 | XMS_ITS | Encounter Summary ---
Author Organization [facility], Address [address] [place] [address] Phone Care Team Providers Care Middle [employer] Principal Name Role Phone Dandre Chavez MD Primary Care Provider [phone] Encounter Details Date Type Department Care Team (Late st Contact Info) Description 10/10/2021 Documentation Only [facility], [address] [place] [address] Faina Villegas PA Social History Tobacco Use [...] on filedocumented in this encounter Care Teams [employer] Principal Relationship Specialty Start Date End Date Dandre Chavez MD [address] [place] [address], [address] [place], [place] PCP - General 07/07/19 documented as of this encounter
--- OUTSIDE RECORDS SUMMARY | 2025-06-15 05:44 | XMS_ITS | Encounter Summary ---
Author Organization [facility] Address [address] [place] [address] Phone Care Team Providers Care Patent Paralegal Name Role Phone Dandre Chavez MD Primary Care Provider [phone] Miguel Enciso MD Unavailable [phone] Encounter Details Date Type Department Care Team (Late st Contact Info) Description 12/20/2022 Procedure Pass Non-Invasive Cardiology 22 [place], [place] [phone] Social History Tobacco Use Types Packs/Day Years [...] on filedocumented in this encounter Care Teams Patent Paralegal Relationship Specialty Start Date End Date Dandre Chavez MD [address] [place] [address] [phone] PCP - General 09/05/17 Miguel Enciso MD [address] [place] [address], [address] [place], [place] [phone] Cardiology 05/28/24 documented as of this encounter Additional Source Comments The information contained in this document represents components of the legal health record. It is not the complete legal health record.[facility]
--- OUTSIDE RECORDS SUMMARY | 2025-06-15 05:44 | XMS_ITS | Encounter Summary ---
Author Organization [facility], Address [address] [place] [address] Phone Care Team Providers Care Group Therapy Counselor Name Role Phone Dandre Chavez MD Primary Care Provider [phone] Encounter Details Date Type Department Care Team (Late st Contact Info) Description 10/12/2021 Documentation Only [facility], [address] [place] [address] Faina Villegas PA Social History Tobacco Use [...] on filedocumented in this encounter Care Teams Group Therapy Counselor Relationship Specialty Start Date End Date Dandre Chavez MD [address] [place] [address], [address] [place], [place] PCP - General 07/07/19 documented as of this encounter
[2025-06-15 06:19] LABS: Hematocrit 27.5 % (37.0-47.0); Hemoglobin 7.9 g/dl (12.0-16.0); Imm Gran Abs Auto 0.02 X10*3/uL (0.00-0.03); Imm Gran Pct Auto 0.4 % (0.0-0.4); Lymphocytes Absolute Auto 0.4 X10*3/uL (1.2-4.9); Mean Corpuscular HGB Conc 28.7 g/dl (31.0-35.0); Mean Corpuscular Hemoglobin 26.7 pg (27.0-33.0); Mean Corpuscular Volume 92.9 fL (80.0-98.0); NRBC Abs Auto 0.000 X10*3/uL (0.0-0.012); NRBC Pct Auto 0.0 /100WBC (0.0-0.2); Platelet Count 194 X10*3/uL (160-400); Red Blood Count 2.96 X10*6/uL (4.20-5.50); White Blood Count 4.6 X10*3/uL (4.8-10.8)
[2025-06-15 06:43] LABS: Anion Gap 19 (12-20); Blood Urea Nitrogen 118 mg/dL (9-16); Calcium 8.9 mg/dL (8.4-10.2); Carbon Dioxide 24 mmol/L (22-29); Chloride 102 mmol/L (96-108); Estimated Glomerular Filt Rate 13; Potassium 3.7 mmol/L (3.3-5.1); Sodium 141 mmol/L (135-145)
== END 2025-06-15 05:40 | disposition home or self-care (01) ==
LOC: HO.MMNH2L 05:39
PROVIDERS: Visit Provider Nurse Practitioner Family
DX: E11.22 Type 2 diabetes mellitus with diabetic chronic kidney disease (principal); N18.4 Chronic kidney disease, stage 4 (severe); I50.9 Heart failure, unspecified
CPT/HCPCS: 36415; 80048; 81001; 85025; 87086

== ENCOUNTER 2025-06-15 21:00 | Outpatient (REF) | payer MEDICARE, SELFPAY ==
--- OUTSIDE RECORDS SUMMARY | 2018-12-31 05:05 | XMS_ITS | Continuity of Care Document ---
Author Organization [facility] Address [address] [address] Phone Care Team Providers Care Lean Engineer Name Role Phone Brodie Hinds DO Unavailable Unavailable Advance Directives Directive Yes / No Effective Date File Name No Information Encounters Encounter Description Practice Location Reason(s) For Visit Diagnoses Date Provider [facility], [address], [id number], [place] tel:[phone] [address] [place] [address] No Information 2018 Guzman Calloway. [address] [place] [address], [id number], [place]. tel:[phone] Family History Family Member Type Diagnosis Age [...]
--- OUTSIDE RECORDS SUMMARY | 2025-06-16 06:03 | XMS_ITS | Encounter Summary ---
Author Organization [facility] Address [address] [place] [address] Phone Care Team Providers Care Cranberry Sorter Name Role Phone Dandre Chavez MD Primary Care Provider [phone] Miguel Enciso MD Unavailable Encounter Details Date Type Department Care Team (Latest Contact Info) Description 12/16/2018 Ancillary Orders Non-Invasive Cardiology 30 [place] [address] Cathy Browning NP [address] [place] [address] Atherosclerosis of [place] coronary artery of [place] heart with angina pectoris Social History Tobacco [...] Max BP Systolic 150 mmHg [facility] Max BP Diastolic 80 mmHg [place] [...] this encounter Visit Diagnoses Diagnosis 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 It is not the complete legal health record.[facility]
--- OUTSIDE RECORDS SUMMARY | 2025-06-16 06:03 | XMS_ITS | Encounter Summary ---
Author Organization [facility], Address [address] [place] [address] Phone Care Team Providers Care Fishing Vessel Captain Name Role Phone Dandre Chavez MD Primary Care Provider [phone] Encounter Details Date Type Department Care Team (Late st Contact Info) Description 08/02/2022 Documentation Only [facility], [address] [place] [address] Faina Villegas PA Social History Tobacco Use [...] on filedocumented in this encounter Care Teams Fishing Vessel Captain Relationship Specialty Start Date End Date Dandre Chavez MD [address] [place] [address], [address] [place], [place] PCP - General 07/07/19 documented as of this encounter
--- OUTSIDE RECORDS SUMMARY | 2025-06-16 06:03 | XMS_ITS | Encounter Summary ---
Author Organization [facility], Address [address] [place] [address] Phone Care Team Providers Care Senior Marketing Analyst Name Role Phone Dandre Chavez MD Primary Care Provider [phone] Encounter Details Date Type Department Care Team (Late st Contact Info) Description 01/14/2023 Documentation Only [facility], [address] [place] [address] Melissa Delgadillo [address] [place] [phone] Social History Tobacco Use Types Packs/Day Years [...] filedocumented in this encounter Care Teams Senior Marketing Analyst Relationship Specialty Start Date End Date Dandre Chavez MD [address] [place] [address], [address] [place], [place] PCP - General 07/07/19 documented as of this encounter
--- OUTSIDE RECORDS SUMMARY | 2025-06-16 06:03 | XMS_ITS | Encounter Summary ---
Author Organization [facility] [place], Address [address] [place] [address] Phone Care Team Providers Care Ankle Patch Molder Name Role Phone Dandre Chavez MD Primary Care Provider [phone] Encounter Details Date Type Department Care Team (Late st Contact Info) Description 01/08/2025 Documentation Only [facility], [address] [place] [address] Radha Chatterjee [place] [address] [place] [phone] Social History Tobacco Use Types Packs/Day Years [...] on filedocumented in this encounter Care Teams Ankle Patch Molder Relationship Specialty Start Date End Date Dandre Chavez MD [address] [place] [address], [address] [place], [place] PCP - General 07/07/19 documented as of this encounter
--- OUTSIDE RECORDS SUMMARY | 2025-06-16 06:03 | XMS_ITS | Encounter Summary ---
Author Organization [facility], Address [address] [place] [address] Phone Care Team Providers Care Still Operator Gin Name Role Phone Dandre Chavez MD Primary Care Provider [phone] Encounter Details Date Type Department Care Team (Late st Contact Info) Description 10/30/2022 Documentation Only [facility], [address] [place] [address] Melissa Delgadillo [address] [place] [phone] Social History Tobacco Use Types Packs/Day Years [...] on filedocumented in this encounter Care Teams Still Operator Gin Relationship Specialty Start Date End Date Dandre Chavez MD [address] [place] [address], [address] [place], [place] PCP - General 07/07/19 documented as of this encounter
--- OUTSIDE RECORDS SUMMARY | 2025-06-16 06:03 | XMS_ITS | Encounter Summary ---
Author Organization [facility], Address [address] [place] [address] Phone Care Team Providers Care Railroad Carman Name Role Phone Dandre Chavez MD Primary Care Provider [phone] Encounter Details Date Type Department Care Team (Late st Contact Info) Description 08/06/2023 Documentation Only [facility], [address] [place] [address] Desi Rodriguez Social History Tobacco Use Types [...] on filedocumented in this encounter Care Teams Railroad Carman Relationship Specialty Start Date End Date Dandre Chavez MD [address] [place] [address], [address] [place], [place] PCP - General 07/07/19 documented as of this encounter
--- OUTSIDE RECORDS SUMMARY | 2025-06-16 06:03 | XMS_ITS | Encounter Summary ---
Author Organization [facility] Address [address] [place] [address] Care Team Providers Care Metal Worker Name Role Phone Amina Burciaga MD Primary Care Provider [phone] Encounter Details Date Type Department Care Team (Late st Contact Info) Description 07/27/2024 Lab Requisition [facility] - Main Lab [address] [facility] [place] [address] Hortencia Mcclellan MD [address] [id number] Type 2 diabetes mellitus without complications (CMS/HCC [...] [facility] [address] [place] [address], * (ABNORMAL) Complete blood count (07/28/2024 5:41 AM EST) [facility] WBC 4.1(L) 4.8 - 10.8 K/mcL [...] MD LAB BLOOD ORDERABLES Fin al Result [facility] [address] [place] [address], documented in this encounter Visit Diagnoses Diagnosis Type 2 diabetes mellitus without complications (CMS/HCC V24, CMS/HCC V28) Heart failure, unspecified (CMS/HCC V24, CMS/HCC V28) Heart failure, unspecified documented in this encounter Care Teams Metal Worker Relationship Specialty Start Date End Date Amina Burciaga MD [address] [place] [address] PCP - General Hospitalist Medicine 09/11/24 documented as of this encounter
--- OUTSIDE RECORDS SUMMARY | 2025-06-16 06:03 | XMS_ITS | Encounter Summary ---
Author Organization [facility] Address [address] [place] [address] Care Team Providers Care Mathematical Engineer Name Role Phone Amina Burciaga MD Primary Care Provider [phone] Encounter Details Date Type Department Care Team (Late st Contact Info) Description 07/23/2024 Lab Requisition [facility] - Main Lab [address] [place] [address] Hortencia Mcclellan MD [address] [phone] Chronic kidney disease, unspecified; Type 2 diabetes [...] LAB CHEMISTRY METHOD 07/23/2024 9:13 AM EST [facility] Potassium 3.8 3.5 - 5.5 mmol/L LAB CHEMISTRY METHOD 07/23/2024 9:13 AM EST [facility] Chloride 111(H) 96 - 110 mmol/L LAB CHEMISTRY METHOD 07/23/2024 9:13 AM [facility] CO2 27 21 - 32 mmol/L LAB CHEMISTRY METHOD 07/23/2024 9:13 AM [facility] Anion Gap 6 3 - 11 LAB CHEMISTRY METHOD 07/23/2024 9:13 AM [facility] Glucose 64(L) 70 - 100 mg/dL LAB CHEMISTRY METHOD 07/23/2024 9:13 AM [facility] BUN 62(H) 5 - 25 mg/dL LAB CHEMISTRY METHOD 07/23/2024 9:13 AM [facility] Creatinine 2.70(H) 0.50 - 1.10 mg/dL LAB CHEMISTRY METHOD 07/23/2024 9:13 AM [facility] eGFR 18(L) >=60 mL/min/1. 73m2 LAB CHEMISTRY METHOD 07/23/2024 9:13 AM [facility] Comment:Calculation based on the Chronic Kidney Disease Epidemiology Collaboration (CKD-EPI) equation refit without adjustment for race. BUN/Creatinine Ratio 23.0 LAB CHEMISTRY METHOD 07/23/2024 9:13 AM [facility] Calcium 9.2 8.5 - 10.5 mg/dL LAB CHEMISTRY METHOD 07/23/2024 9:13 AM [facility] Blood Venous blood specimen / Unknown Venipuncture / Unknown 07/23/2024 5:52 AM EST 07/23/2024 8:17 AM EST us Hortencia Mcclellan MD LAB BLOOD ORDERABLES Fin al Result [facility] [address] [place] [address], documented in this encounter Visit Diagnoses Diagnosis Chronic kidney disease, unspecified Type 2 diabetes mellitus without complications (CMS/HCC V24, CMS/HCC V28) documented in this encounter Care Teams Mathematical Engineer Relationship Specialty Start Date End Date Amina Burciaga MD [address] [place] [address] PCP - General Hospitalist Medicine 09/11/24 documented as of this encounter
--- OUTSIDE RECORDS SUMMARY | 2025-06-16 06:03 | XMS_ITS | Encounter Summary ---
Author Organization [facility] Address [address] [place] [address] Care Team Providers Care Elevator Mechanic Apprentice Name Role Phone Amina Burciaga MD Primary Care Provider [phone] Encounter Details Date Type Department Care Team (Late st Contact Info) Description 07/10/2024 Lab Requisition [facility] - Main Lab [address] [facility] [email or web address] [address] Lloyd Jernigan MD [address] [place] [address] Unspecified dementia, unspecified severity, without behavioral disturbance, [...] mmol/L LAB CHEMISTRY METHOD 07/10/2024 9:59 AM [facility] Potassium 4.4 3.5 - 5.5 mmol/L LAB CHEMISTRY METHOD 07/10/2024 9:59 AM [facility] Chloride 103 96 - 110 mmol/L LAB CHEMISTRY METHOD 07/10/2024 9:59 AM [facility] CO2 31 21 - 32 mmol/L LAB CHEMISTRY METHOD 07/10/2024 9:59 AM [facility] Anion Gap 5 3 - 11 LAB CHEMISTRY METHOD 07/10/2024 9:59 AM [facility] Glucose 115(H) 70 - 100 mg/dL LAB CHEMISTRY METHOD 07/10/2024 9:59 AM [facility] BUN 62(H) 5 - 25 mg/dL LAB CHEMISTRY METHOD 07/10/2024 9:59 AM [facility] Creatinine 2.86(H) 0.50 - 1.10 mg/dL LAB CHEMISTRY METHOD 07/10/2024 9:59 AM [facility] eGFR 16(L) >=60 mL/min/1. 73m2 LAB CHEMISTRY METHOD 07/10/2024 9:59 AM [facility] Comment:Calculation based on the Chronic Kidney Disease Epidemiology Collaboration (CKD-EPI) equation refit without adjustment for race. BUN/Creatinine Ratio 21.7 LAB CHEMISTRY METHOD 07/10/2024 9:59 AM [facility] Calcium 9.3 8.5 - 10.5 mg/dL LAB CHEMISTRY METHOD 07/10/2024 9:59 AM [facility] Blood Venous blood specimen / Unknown Venipuncture / Unknown 07/10/2024 6:29 AM EST 07/10/2024 9:00 AM EST us Lloyd Jernigan MD LAB BLOOD ORDERABLES Final R esult [facility] [address] [place] [address], * (ABNORMAL) Complete blood count (07/10/2024 6:29 AM EST) WBC 5.3 4.8 - 10.8 K/mcL LAB HEMETOLOGY METHOD 07/10/2024 9:47 AM [facility] RBC 3.20(L) 3.80 - 4.80 M/mcL LAB HEMETOLOGY METHOD 07/10/2024 9:47 AM [facility] Hemoglobin 8.9(L) 11.5 - 16.0 g/dL LAB HEMETOLOGY METHOD 07/10/2024 9:47 AM [facility] Hematocrit 32.0(L) 35.0 - 47.0 % LAB HEMETOLOGY METHOD 07/10/2024 9:47 AM [facility] MCV 101.6(H) 79.0 - 98.0 FL LAB HEMETOLOGY METHOD 07/10/2024 9:47 AM [facility] MCH 28.3 27.0 - 32.0 pcg LAB HEMETOLOGY METHOD 07/10/2024 9:47 AM [facility] MCHC 27.8(L) 32.0 - 37.0 g/dL LAB HEMETOLOGY METHOD 07/10/2024 9:47 AM [facility] RDW 20.3(H) 11.0 - 15.0 % LAB HEMETOLOGY METHOD 07/10/2024 9:47 AM [facility] Platelets 239 130 - 400 K/mcL LAB HEMETOLOGY METHOD 07/10/2024 9:47 AM [facility] MPV 10.2 7.0 - [...] ORDERABLES Final R esult Performing Organization Address City/[facility]/ZIP Co de Phone Number [facility] [address] [place] [address], [place] [phone] * Hemoglobin A1c (07/10/2024 6:29 AM EST) [...] esult [facility] [address] [place] [address], [place] [phone] documented in this encounter Visit Diagnoses Diagnosis Unspecified dementia, unspecified severity, without behavioral disturbance, psychotic disturbance, mood disturbance, and anxiety (CMS/HCC V24, CMS/HCC V28) documented in this encounter Care Teams Elevator Mechanic Apprentice Relationship Specialty Start Date End Date Amina Burciaga MD [address] [place] [address] PCP - General Hospitalist Medicine 09/11/24 documented as of this encounter
--- OUTSIDE RECORDS SUMMARY | 2025-06-16 06:03 | XMS_ITS | Encounter Summary ---
Author Organization [facility] Address [address] [place] [address] Care Team Providers Care Concrete Boom Pump Operator Name Role Phone Amina Burciaga MD Primary Care Provider [phone] Encounter Details Date Type Department Care Team (Latest Contact Info) Description 09/07/[address] [facility] - Main Lab [address] [facility] [place] [address] Amina Burciaga MD [address] [place] [address] Heart failure, unspecified (CMS/HCC V24, [...] unspecified Type 2 diabetes mellitus without complications ([facility]) documented in this encounter Results * Hemoglobin A1c (09/07/2024 6:24 AM EST) Pathologist [facility] Hemoglobin A1C 5.1 <6.5 % LAB CHEMISTRY METHOD 09/07/2024 11:[address] [facility] Mean Bld Glu Estim. 100 mg/dL LAB CHEMISTRY METHOD 09/07/2024 11:11 AM [facility] Blood Venous blood specimen / Unknown Venipuncture / Unknown 09/07/2024 6:24 AM EST 09/07/2024 8:12 AM EST Amina Burciaga MD LAB BLOOD ORDERABLES Final Resul t [facility] [address] [place] [address], * (ABNORMAL) Comprehensive metabolic panel (09/07/2024 6:24 AM EST) [facility] Sodium 140 133 - 145 mmol/L [...] Resul t [facility] [address] [place] [address], * (ABNORMAL) Complete blood count (09/07/2024 6:24 AM EST) [facility] Signature WBC 4.7(L) 4.8 - [...] LAB HEMETOLOGY METHOD 09/07/2024 8:[address] [facility] NRBC Absolute 0.00 <0.10 K/mcL LAB HEMETOLOGY METHOD 09/07/2024 8:[address] [facility] Blood Venous blood specimen / Unknown Venipuncture / Unknown 09/07/2024 6:24 AM EST 09/07/2024 8:12 AM EST us Amina Burciaga MD LAB BLOOD ORDERABLES Final Resul t [facility] [address] [place] [address], documented in this encounter Visit Diagnoses Diagnosis Heart failure, unspecified (CMS/HCC V24, CMS/HCC V28) Heart failure, unspecified Chronic kidney disease, unspecified Type 2 diabetes mellitus without complications (CMS/HCC V24, CMS/HCC V28) documented in this encounter Care Teams Concrete Boom Pump Operator Relationship Specialty Start Date End Date Amina Burciaga MD [address] [place] [address] PCP - General Hospitalist Medicine 09/11/24 documented as of this encounter
--- OUTSIDE RECORDS SUMMARY | 2025-06-16 06:03 | XMS_ITS | Clinical Summary ---
Author Organization [address] Address [address] [place] [address] Phone Care Team Providers Care Patron Attendant Name Role Phone Amina Burciaga MD Primary Care Provider [phone] Immunizations Immunization Administration Dates Next Due Pfizer [...] mmol/L LAB CHEMISTRY METHOD 09/30/2024 1:[address] [facility] Potassium 3.7 3.5 - 5.5 mmol/L LAB CHEMISTRY METHOD 09/30/2024 1:[address] [facility] Chloride 100 96 - 110 mmol/L LAB CHEMISTRY METHOD 09/30/2024 1:[address] [facility] CO2 31 21 - 32 mmol/L LAB CHEMISTRY METHOD 09/30/2024 1:[address] [facility] Anion Gap 7 3 - 11 LAB CHEMISTRY METHOD 09/30/2024 1:[address] [facility] Glucose 228(H) 70 - 100 mg/dL LAB CHEMISTRY METHOD 09/30/2024 1:[address] [facility] BUN 90(H) 5 - 25 mg/dL LAB CHEMISTRY METHOD 09/30/2024 1:[address] [facility] Creatinine 2.19(H) 0.50 - 1.10 mg/dL LAB CHEMISTRY METHOD 09/30/2024 1:[address] [facility] eGFR 23(L) >=60 mL/min/1. 73m2 LAB CHEMISTRY METHOD 09/30/2024 1:[address] [facility] Comment:Calculation based on the Chronic Kidney Disease Epidemiology Collaboration (CKD-EPI) equation refit without adjustment for race. BUN/Creatinine Ratio 41.1 LAB CHEMISTRY METHOD 09/30/2024 1:[address] [facility] Calcium 8.9 8.5 - 10.5 mg/dL LAB CHEMISTRY METHOD 09/30/2024 1:[address] [facility] AST (SGOT) 22 10 - 42 unit/L LAB CHEMISTRY METHOD 09/30/2024 1:[address] [facility] ALT (SGPT) 28 10 - 60 unit/L LAB CHEMISTRY METHOD 09/30/2024 1:[address] [facility] Alkaline Phosphatase 47 42 - 121 unit/L LAB CHEMISTRY METHOD 09/30/2024 1:04 PM EST [facility] Total Protein 6.2 6.0 - 8.0 g/dL LAB CHEMISTRY METHOD 09/30/2024 1:[address] [facility] Albumin 2.7(L) 3.2 - 5.0 g/dL LAB CHEMISTRY METHOD 09/30/2024 1:[address] [facility] Total Bilirubin 0.6 0.0 - 1.4 mg/dL LAB CHEMISTRY METHOD 09/30/2024 1:[address] [facility] Blood Venous blood specimen / Unknown Venipuncture / Unknown 09/30/2024 9:57 AM EST 09/30/2024 10:50 AM EST Isaac Stark MD LAB BLOOD ORDERABLES Final Resu lt Performing Organization Address City/[facility]/ZIP Co de Phone Number [facility] [address] [place] [address], [place] [phone] * Hemoglobin A1c (09/23/2024 8:20 AM EST) Hemoglobin A1C 5.3 <6.5 % LAB CHEMISTRY METHOD 09/23/2024 2:[address] [facility] Mean Bld Glu Estim. 105 mg/dL LAB CHEMISTRY METHOD 09/23/2024 2:[address] [facility] Blood Venous blood specimen / Unknown Venipuncture / Unknown 09/23/2024 8:20 AM EST 09/23/2024 12:06 PM EST Amina Burciaga MD LAB BLOOD ORDERABLES Final Resul t Performing Organization Address City/[facility]/ZIP Co de Phone Number [facility] [address] [place] [address], [place] [phone] from Last 3 Months or Most Recently Relevant to Health Maintenance Insurance [place] [employer] Care Teams Patron Attendant Relationship Specialty Start Date End Date Amina Burciaga MD [address] [place] [address] PCP - General Hospitalist Medicine 09/11/24
--- OUTSIDE RECORDS SUMMARY | 2025-06-16 06:03 | XMS_ITS | Clinical Summary ---
Author Organization [facility], Address [address] [place] [address] Phone Care Team Providers Care Case Liner Name Role Phone Dandre Chavez MD Primary Care Provider [phone] Allergies Active Allergy Reactions Criticality Noted Date [...] with health care provider. DIAGNOSTIC USE: The [place] [employer] (ADA) and the World Health [...] Supplement 1 Testing performed or reported by [facility], a Service of [address] [address] Louis Fry MD, Cow Buyer [facility]# [id number] Blood specimen (specimen) Venous blood / Unknown 10/18/2022 2:34 PM EST 10/18/2022 2:35 PM EST us Faina LUCIANO LAB BLOOD ORDERABLES Final Res ult [facility] from Last 3 Months or Most Recently Relevant to Health Maintenance Insurance Medicare [facility] [place] [id number] Care Teams Case Liner Relationship Specialty Start Date End Date Dandre Chavez MD [address] [place] [address], [address] [place] PCP - General 07/07/19
--- OUTSIDE RECORDS SUMMARY | 2025-06-16 06:03 | XMS_ITS | Encounter Summary ---
Author Organization [facility] [place], Address [address] [place] [address] Phone Care Team Providers Care Shoe Cementer Name Role Phone Dandre Chavez MD Primary Care Provider [phone] Encounter Details Date Type Department Care Team (Late st Contact Info) Description 11/29/2023 Documentation Only [facility] [place], [address] [place] [address] Radha Chatterjee [address] [place] [phone] Social History Tobacco Use Types Packs/Day Years [...] on filedocumented in this encounter Care Teams Shoe Cementer Relationship Specialty Start Date End Date Dandre Chavez MD [address] [place] [address], [address] [place], [place] PCP - General 07/07/19 documented as of this encounter
--- OUTSIDE RECORDS SUMMARY | 2025-06-16 06:03 | XMS_ITS | Encounter Summary ---
Author Organization [facility], Address [address] [place] [address] Phone Care Team Providers Care Bobbin Marker Name Role Phone Dandre Chavez MD Primary Care Provider [phone] Encounter Details Date Type Department Care Team (Late st Contact Info) Description 12/31/2022 Documentation Only [facility], [address] [place] [address] Melissa Delgadillo [address] [place] [phone] Social History Tobacco Use Types Packs/Day Years [...] on filedocumented in this encounter Care Teams Bobbin Marker Relationship Specialty Start Date End Date Dandre Chavez MD [address] [place] [address], [address] [place], [place] PCP - General 07/07/19 documented as of this encounter
--- OUTSIDE RECORDS SUMMARY | 2025-06-16 06:03 | XMS_ITS | Encounter Summary ---
Author Organization [facility], Address [address] [place] [address] Phone Care Team Providers Care Citrix Systems Administrator Name Role Phone Dandre Chavez MD Primary Care Provider [phone] Encounter Details Date Type Department Care Team (Late st Contact Info) Description 02/09/2022 Documentation Only [facility], [address] [place] [address] Faina Villegas PA Social History Tobacco Use [...] on filedocumented in this encounter Care Teams Citrix Systems Administrator Relationship Specialty Start Date End Date Dandre Chavez MD [address] [place] [address], [address] [place], [place] PCP - General 07/07/19 documented as of this encounter
--- OUTSIDE RECORDS SUMMARY | 2025-06-16 06:03 | XMS_ITS | Encounter Summary ---
Author Organization [facility], Address [address] [place] [address] Phone Care Team Providers Care Category Director Name Role Phone Dandre Chavez MD Primary Care Provider [phone] Encounter Details Date Type Department Care Team (Late st Contact Info) Description 09/07/2022 Documentation Only [facility], [address] [place] [address] Faina Villegas PA Social History Tobacco Use [...] on filedocumented in this encounter Care Teams Category Director Relationship Specialty Start Date End Date Dandre Chavez MD [address] [place] [address], [address] [place], [place] PCP - General 07/07/19 documented as of this encounter
--- OUTSIDE RECORDS SUMMARY | 2025-06-16 06:03 | XMS_ITS | Encounter Summary ---
Author Organization [facility] Address [address] [place] [address] Care Team Providers Care Rail Loader Name Role Phone Amina Burciaga MD Primary Care Provider [phone] Encounter Details Date Type Department Care Team (Latest Contact Info) Description 09/23/2024 Lab Requisition [facility] - Main Lab [address] [facility] [place] [address] Amina Burciaga MD [address] [place] [address] Type 2 diabetes mellitus with [...] Resul t [facility] [address] [place] [address], * (ABNORMAL) Comprehensive metabolic panel (09/23/2024 8:20 AM EST) Pathologist [facility] Sodium 140 133 - 145 mmol/L LAB CHEMISTRY METHOD 09/23/2024 4:37 PM [facility] Potassium 3.9 3.5 - 5.5 mmol/L LAB CHEMISTRY METHOD 09/23/2024 4:37 PM [facility] Chloride 102 96 - 110 mmol/L LAB CHEMISTRY METHOD 09/23/2024 4:37 PM [facility] CO2 31 21 - 32 mmol/L LAB CHEMISTRY METHOD 09/23/2024 4:37 PM [facility] Anion Gap 7 3 - 11 LAB CHEMISTRY METHOD 09/23/2024 4:37 PM [facility] Glucose 106(H) 70 - 100 mg/dL LAB CHEMISTRY METHOD 09/23/2024 4:37 PM [facility] BUN 82(H) 5 - 25 mg/dL LAB CHEMISTRY METHOD 09/23/2024 4:37 PM [facility] Creatinine 2.46(H) 0.50 - 1.10 mg/dL LAB CHEMISTRY METHOD 09/23/2024 4:37 PM [facility] eGFR 20(L) >=60 mL/min/1. 73m2 LAB CHEMISTRY METHOD 09/23/2024 4:37 PM [facility] Comment:Calculation based on the Chronic Kidney Disease Epidemiology Collaboration (CKD-EPI) equation refit without adjustment for race. BUN/Creatinine Ratio 33.3 LAB CHEMISTRY METHOD 09/23/2024 4:37 PM [facility] Calcium 8.7 8.5 - 10.5 mg/dL LAB CHEMISTRY METHOD 09/23/2024 4:37 PM [facility] AST (SGOT) 17 10 - 42 unit/L LAB CHEMISTRY METHOD 09/23/2024 4:37 PM [facility] ALT (SGPT) 34 10 - 60 unit/L LAB CHEMISTRY METHOD 09/23/2024 4:37 PM [facility] Alkaline Phosphatase 57 42 - 121 unit/L LAB CHEMISTRY METHOD 09/23/2024 4:37 PM [facility] Total Protein 7.1 6.0 - 8.0 g/dL LAB CHEMISTRY METHOD 09/23/2024 4:37 PM [facility] Albumin 3.2 3.2 - 5.0 g/dL LAB CHEMISTRY METHOD 09/23/2024 4:37 PM [facility] Total Bilirubin 0.6 0.0 - 1.4 mg/dL LAB CHEMISTRY METHOD 09/23/2024 4:37 PM [facility] Blood Venous blood specimen / Unknown Venipuncture / Unknown 09/23/2024 8:20 AM EST 09/23/2024 12:06 PM EST us Amina Burciaga MD LAB BLOOD ORDERABLES Final Resul t [facility] [address] [place] [address], * (ABNORMAL) Complete blood count (09/23/2024 8:20 AM EST) [facility] [address] WBC 6.2 4.8 - 10.8 K/mcL LAB HEMETOLOGY METHOD 09/23/2024 12:38 PM [facility] RBC 3.60(L) 3.80 - 4.80 M/mcL LAB HEMETOLOGY METHOD 09/23/2024 12:38 PM [facility] Hemoglobin 10.5(L) 11.5 - 16.0 g/dL LAB HEMETOLOGY METHOD 09/23/2024 12:38 PM [facility] Hematocrit 36.5 35.0 - 47.0 % LAB HEMETOLOGY METHOD 09/23/2024 12:38 PM [facility] MCV 100.3(H) 79.0 - 98.0 FL LAB HEMETOLOGY METHOD 09/23/2024 12:38 PM [facility] MCH 28.8 27.0 - 32.0 pcg LAB HEMETOLOGY METHOD 09/23/2024 12:38 PM [facility] MCHC 28.8(L) 32.0 - 37.0 g/dL LAB HEMETOLOGY METHOD 09/23/2024 12:38 PM [facility] RDW 18.4(H) 11.0 - 15.0 % LAB HEMETOLOGY METHOD 09/23/2024 12:38 PM [facility] Platelets 254 130 - 400 K/mcL LAB HEMETOLOGY METHOD 09/23/2024 12:38 PM [facility] MPV 10.7 7.0 - 11.0 FL LAB HEMETOLOGY METHOD 09/23/2024 12:38 PM [facility] NRBC 0.0 <1.0 [...] Resul t [facility] [address] [place] [address], documented in this encounter Visit Diagnoses Diagnosis Type 2 diabetes mellitus with unspecified complications (CMS/HCC V24, CMS/HCC V28) Unspecified systolic (congestive) heart failure (CMS/HCC V24, CMS/HCC V28) documented in this encounter Care Teams Rail Loader Relationship Specialty Start Date End Date Amina Burciaga MD [address] [place] [address] PCP - General Hospitalist Medicine 09/11/24 documented as of this encounter
--- OUTSIDE RECORDS SUMMARY | 2025-06-16 06:03 | XMS_ITS | Encounter Summary ---
Author Organization [facility], Address [address] [place] [address] Phone Care Team Providers Care Dice Maker Name Role Phone Dandre Chavez MD Primary Care Provider [phone] Encounter Details Date Type Department Care Team (Late st Contact Info) Description 02/09/2022 Documentation Only [facility], [address] [place] [address] Faina Villegas PA Social History Tobacco Use [...] on filedocumented in this encounter Care Teams Dice Maker Relationship Specialty Start Date End Date Dandre Chavez MD [address] [place] [address], [address] [place], [place] PCP - General 07/07/19 documented as of this encounter
--- OUTSIDE RECORDS SUMMARY | 2025-06-16 06:03 | XMS_ITS | Clinical Summary ---
Author Organization [facility] Address [address] [place] [address] Care Team Providers Care Terra Cotta Roofer Name Role Phone Dandre Chavez MD Primary Care Provider [phone] Allergies Active Allergy Reactions Criticality Noted Date [...] age to complete this topic Care Teams Terra Cotta Roofer Relationship Specialty Start Date End Date Dandre Chavez MD [address] [place] [address] [place] [id number] PCP - General Internal Medicine 11/06/22
--- OUTSIDE RECORDS SUMMARY | 2025-06-16 06:03 | XMS_ITS | Encounter Summary ---
Author Organization [facility] Address [address] [place] [address] Care Team Providers Care Imaging Technician Name Role Phone Amina Burciaga MD Primary Care Provider [phone] Encounter Details Date Type Department Care Team (Latest Contact Info) Description 09/11/2024 Lab Requisition [facility] - Main Lab [address] [facility] [place] [address] Amina Burciaga MD [address] [place] [address] Other adjunct faculty for medical [...] MAGNESIUM Routine 09/11/2024 9:47 AM EST Other adjunct faculty for medical terminology (current) drug therapy Type 2 diabetes mellitus without complications (CMS/HCC) Heart failure, unspecified (CMS/HCC) BASIC METABOLIC PANEL Routine 09/11/2024 9:47 AM EST Other halfway (current) drug therapy Type 2 diabetes mellitus without complications (CMS/HCC) Heart failure, unspecified (CMS/HCC) documented in this encounter Results * Magnesium (09/11/2024 9:47 AM EST) [facility] Magnesium 2.1 1.9 - 2.6 mg/dL LAB CHEMISTRY METHOD 09/11/2024 12:45 PM [facility] Blood Venous blood specimen / Unknown Venipuncture / Unknown 09/11/2024 9:47 AM EST 09/11/2024 11:29 AM EST Amina Burciaga MD LAB BLOOD ORDERABLES Final Resul t [facility] [address] [place] [address], * (ABNORMAL) Basic metabolic panel (09/11/2024 9:47 AM EST) [facility] Sodium 137 133 - 145 mmol/L LAB CHEMISTRY METHOD 09/11/2024 12:54 PM [facility] Potassium 3.9 3.5 - 5.5 mmol/L LAB CHEMISTRY METHOD 09/11/2024 12:54 PM [facility] Chloride 103 96 - 110 mmol/L LAB CHEMISTRY METHOD 09/11/2024 12:54 PM [facility] CO2 26 21 - 32 mmol/L LAB CHEMISTRY METHOD 09/11/2024 12:54 PM [facility] Anion Gap 8 3 - 11 LAB CHEMISTRY METHOD 09/11/2024 12:54 PM [facility] Glucose 112(H) 70 - 100 mg/dL LAB CHEMISTRY METHOD 09/11/2024 12:54 PM [facility] BUN 50(H) 5 - 25 mg/dL LAB CHEMISTRY METHOD 09/11/2024 12:54 PM [facility] Creatinine 2.73(H) 0.50 - 1.10 mg/dL LAB CHEMISTRY METHOD 09/11/2024 12:54 PM [facility] eGFR 17(L) >=60 mL/min/1. 73m2 LAB CHEMISTRY METHOD 09/11/2024 12:54 PM [facility] Comment:Calculation based on the Chronic Kidney Disease Epidemiology Collaboration (CKD-EPI) equation refit without adjustment for race. BUN/Creatinine Ratio 18.3 LAB CHEMISTRY METHOD 09/11/2024 12:54 PM [facility] Calcium 8.6 8.5 - 10.5 mg/dL LAB CHEMISTRY METHOD 09/11/2024 12:54 PM [facility] Blood Venous blood specimen / Unknown Venipuncture / Unknown 09/11/2024 9:47 AM EST 09/11/2024 11:29 AM EST Amina Burciaga MD LAB BLOOD ORDERABLES Final Resul t [facility] [address] [place] [address], * (ABNORMAL) Complete blood count (09/11/2024 9:47 AM EST) WBC 6.9 4.8 - 10.8 K/mcL LAB HEMETOLOGY METHOD 09/11/2024 11:47 AM [facility] RBC 3.10(L) 3.80 - 4.80 M/mcL LAB HEMETOLOGY METHOD 09/11/2024 11:47 AM [facility] Hemoglobin 9.0(L) 11.5 - 16.0 g/dL LAB HEMETOLOGY METHOD 09/11/2024 11:47 AM [facility] Hematocrit 31.6(L) 35.0 - 47.0 % LAB HEMETOLOGY METHOD 09/11/2024 11:47 AM [facility] MCV 102.6(H) 79.0 - 98.0 FL LAB HEMETOLOGY METHOD 09/11/2024 11:47 AM EST [facility] MCH 29.2 27.0 - 32.0 pcg LAB HEMETOLOGY METHOD 09/11/2024 11:47 AM [facility] MCHC 28.5(L) 32.0 - 37.0 g/dL LAB HEMETOLOGY METHOD 09/11/2024 11:47 AM EST [facility] RDW 20.6(H) 11.0 - 15.0 % LAB HEMETOLOGY METHOD 09/11/2024 11:47 AM EST [facility] Platelets 180 130 - 400 K/mcL LAB HEMETOLOGY METHOD 09/11/2024 11:47 AM [facility] MPV 9.9 7.0 - 11.0 FL LAB HEMETOLOGY METHOD 09/11/2024 11:47 AM EST [facility] NRBC 0.0 <1.0 % LAB HEMETOLOGY METHOD 09/11/2024 11:47 AM [facility] NRBC Absolute 0.00 <0.10 K/mcL LAB HEMETOLOGY METHOD 09/11/2024 11:47 AM [facility] Blood Venous blood specimen / Unknown Venipuncture / Unknown 09/11/2024 9:47 AM EST 09/11/2024 11:29 AM EST us Amina Burciaga MD LAB BLOOD ORDERABLES Final Resul t [facility] [address] [place] [address], documented in this encounter Visit Diagnoses Diagnosis Other adjunct faculty for medical terminology (current) drug therapy Type 2 diabetes mellitus without complications (CMS/HCC V24, CMS/HCC V28) Heart failure, unspecified (CMS/HCC V24, CMS/HCC V28) Heart failure, unspecified documented in this encounter Care Teams Imaging Technician Relationship Specialty Start Date End Date Amina Burciaga MD [address] [place] [address] PCP - General Hospitalist Medicine 09/11/24 documented as of this encounter
--- OUTSIDE RECORDS SUMMARY | 2025-06-16 06:03 | XMS_ITS | Encounter Summary ---
Author Organization [facility] Address [address] [place] [phone] Care Team Providers Care Car Pusher Name Role Phone Amina Burciaga MD Primary Care Provider [phone] Encounter Details Date Type Department Care Team (Late st Contact Info) Description 09/30/2024 Lab Requisition [facility] - Main Lab 299 [facility] [place] [address] Isaac Stark MD [address] [place] [address] [place] [address] Heart failure, unspecified [...] (ABNORMAL) Vitamin B12 (09/30/2024 9:57 AM EST) [facility] Vitamin B-12 1,028(H) 250 - 900 pcg/mL LAB CHEMISTRY METHOD 09/30/2024 1:04 PM [facility] Blood Venous blood specimen / Unknown Venipuncture / Unknown 09/30/2024 9:57 AM EST 09/30/2024 10:50 AM EST us Isaac Stark MD LAB BLOOD ORDERABLES Final Resu lt [facility] [address] [place] [address], [place] [phone] * (ABNORMAL) Comprehensive metabolic panel (09/30/2024 9:57 AM EST) [facility] Sodium 138 133 - 145 mmol/L LAB CHEMISTRY METHOD 09/30/2024 1:04 PM [facility] Potassium 3.7 3.5 - 5.5 mmol/L LAB CHEMISTRY METHOD 09/30/2024 1:04 PM [facility] Chloride 100 96 - 110 mmol/L LAB CHEMISTRY METHOD 09/30/2024 1:04 PM [facility] CO2 31 21 - 32 mmol/L LAB CHEMISTRY METHOD 09/30/2024 1:04 PM [facility] Anion Gap 7 3 - 11 LAB CHEMISTRY METHOD 09/30/2024 1:04 PM [facility] Glucose 228(H) 70 - 100 mg/dL LAB CHEMISTRY METHOD 09/30/2024 1:04 PM [facility] BUN 90(H) 5 - 25 mg/dL LAB CHEMISTRY METHOD 09/30/2024 1:04 PM [facility] Creatinine 2.19(H) 0.50 - 1.10 mg/dL LAB CHEMISTRY METHOD 09/30/2024 1:04 PM [facility] eGFR 23(L) >=60 mL/min/1. 73m2 LAB CHEMISTRY METHOD 09/30/2024 1:04 PM [facility] Comment:Calculation based on the Chronic Kidney Disease Epidemiology Collaboration (CKD-EPI) equation refit without adjustment for race. BUN/Creatinine Ratio 41.1 LAB CHEMISTRY METHOD 09/30/2024 1:04 PM [facility] Calcium 8.9 8.5 - 10.5 mg/dL LAB CHEMISTRY METHOD 09/30/2024 1:04 PM [facility] AST (SGOT) 22 10 - 42 unit/L LAB CHEMISTRY METHOD 09/30/2024 1:04 PM [facility] ALT (SGPT) 28 10 - 60 unit/L LAB CHEMISTRY METHOD 09/30/2024 1:04 PM [facility] Alkaline Phosphatase 47 42 - 121 unit/L LAB CHEMISTRY METHOD 09/30/2024 1:04 PM [facility] Total Protein 6.2 6.0 - 8.0 g/dL LAB CHEMISTRY METHOD 09/30/2024 1:04 PM [facility] Albumin 2.7(L) 3.2 - 5.0 g/dL LAB CHEMISTRY METHOD 09/30/2024 1:04 PM [facility] Total Bilirubin 0.6 0.0 - 1.4 mg/dL LAB CHEMISTRY METHOD 09/30/2024 1:04 PM [facility] Blood Venous blood specimen / Unknown Venipuncture / Unknown 09/30/2024 9:57 AM EST 09/30/2024 10:50 AM EST us Isaac Stark MD LAB BLOOD ORDERABLES Final Resu lt [facility] [address] [place] [address], * (ABNORMAL) Complete blood count (09/30/2024 9:57 AM EST) [facility] WBC 5.9 4.8 - 10.8 K/mcL LAB HEMETOLOGY METHOD 09/30/2024 12:25 PM [facility] RBC 3.80 3.80 - 4.80 M/mcL LAB HEMETOLOGY METHOD 09/30/2024 12:25 PM [facility] Hemoglobin 11.2(L) 11.5 - 16.0 g/dL LAB HEMETOLOGY METHOD 09/30/2024 12:25 PM [facility] Hematocrit 37.7 35.0 - 47.0 % LAB HEMETOLOGY METHOD 09/30/2024 12:25 PM [facility] MCV 98.2(H) 79.0 - 98.0 FL LAB HEMETOLOGY METHOD 09/30/2024 12:25 PM [facility] MCH 29.2 27.0 - 32.0 pcg LAB HEMETOLOGY METHOD 09/30/2024 12:25 PM [facility] MCHC 29.7(L) 32.0 - 37.0 g/dL LAB HEMETOLOGY METHOD 09/30/2024 12:25 PM [facility] RDW 17.7(H) 11.0 - 15.0 % LAB HEMETOLOGY METHOD 09/30/2024 12:25 PM [facility] Platelets 183 130 - 400 K/mcL LAB HEMETOLOGY METHOD 09/30/2024 12:25 PM [facility] MPV 11.7(H) 7.0 - 11.0 FL LAB HEMETOLOGY METHOD 09/30/2024 12:25 PM [facility] NRBC 0.0 <1.0 % LAB HEMETOLOGY METHOD 09/30/2024 12:25 PM [facility] NRBC Absolute 0.00 <0.10 K/mcL LAB HEMETOLOGY METHOD 09/30/2024 12:25 PM EST [facility] Blood Venous blood specimen / Unknown Venipuncture / Unknown 09/30/2024 9:57 AM EST 09/30/2024 10:50 AM EST us Isaac Stark MD LAB BLOOD ORDERABLES Final Resu lt Performing Organization Address City/[facility]/ZIP Co de Phone Number [facility] [address] [place] [address], [place] [phone] * Vitamin D 25 hydroxy (09/30/2024 9:57 AM EST) Vit D, 25-Hydroxy 54.9 30.0 - 80.0 ng/mL LAB CHEMISTRY METHOD 09/30/2024 12:48 PM EST [facility] Blood Venous blood specimen / Unknown Venipuncture / Unknown 09/30/2024 9:57 AM EST 09/30/2024 10:50 AM EST us Isaac Stark MD LAB BLOOD ORDERABLES Final Resu lt Performing Organization Address [facility]/ZIP Co de Phone Number [facility] [address] [place] [address], [place] [phone] documented in this encounter Visit Diagnoses Diagnosis Heart failure, unspecified (CMS/HCC V24, CMS/HCC V28) Heart failure, unspecified Vitamin D deficiency, unspecified documented in this encounter Care Teams Car Pusher Relationship Specialty Start Date End Date Amina Burciaga MD [address] [place] [phone] PCP - General Hospitalist Medicine 09/11/24 documented as of this encounter
--- OUTSIDE RECORDS SUMMARY | 2025-06-16 06:03 | XMS_ITS | Encounter Summary ---
Author Organization [facility] Address [address] [place] [address] Care Team Providers Care Fixed Route Bus Operator Name Role Phone Amina Burciaga MD Primary Care Provider [phone] Encounter Details Date Type Department Care Team (Late st Contact Info) Description 07/13/[address] [facility] - Main Lab 299 [facility] [place] [address] Hortencia Mcclellan MD [address] [id number] Type 2 diabetes mellitus without complications (CMS/HCC [...] Fin al Result [facility] [address] [place] [address], * (ABNORMAL) Complete blood count (07/14/2024 6:08 AM EST) [facility] WBC 5.3 4.8 - 10.8 K/mcL [...] Fin al Result [facility] [address] [place] [address], documented in this encounter Visit Diagnoses Diagnosis Type 2 diabetes mellitus without complications (CMS/HCC V24, CMS/HCC V28) Heart failure, unspecified (CMS/HCC V24, CMS/HCC V28) Heart failure, unspecified documented in this encounter Care Teams Fixed Route Bus Operator Relationship Specialty Start Date End Date Amina Burciaga MD [address] [place] [address] PCP - General Hospitalist Medicine 09/11/24 documented as of this encounter
--- OUTSIDE RECORDS SUMMARY | 2025-06-16 06:03 | XMS_ITS | Clinical Summary ---
Author Organization [facility] Address [address] [place] [address] Phone Care Team Providers Care Transmission Technician Name Role Phone Danrde Chavez MD Primary Care Provider [phone] Miguel Enciso MD Unavailable [phone] Allergies Active Allergy Reactions Criticality Noted Date [...] Active ferrous sulfate 325 mg (65 mg [place] tribe iron) EC tablet Take 325 mg by [...] focus on healthy food choices. Atherosclerosis of [place] co ronary artery of [place] heart with angina pectoris 10/28/2018 Assessment & [...] (04/14/2020 10:40 PM EDT): History of inferior NE in 2013 with a stent to her [...] LAD. She presented with a non-ST relation NE September 2018 and had a new culprit [...] will need to have this completed at [facility]. She is aware that this is going [...] December. She will have this completed at [facility] due to having her stress test completed [...] this topic Medical Devices Implanted Type Area Beef Pusher Device Identifier Shelf Expiration Date Model / Serial / Lot Sensor Pulmonary Artery Delivery System Cardiomems - [id number] Implanted:Qt y: 1 on 04/03/2022 by Miguel Enciso MD at [facility] Implantable Monitor Left: Arterial [employer] [id number] 12/15/2023 CM PATIENT SYSTEM / [id number] / Description:Pulmonary artery Procedures Procedure Name Priority Date/Time Associated Diagnosis Comments COMPREHENSIVE METABOLIC PANEL Routine 04/18/2022 2:39 PM EDT Atherosclerosis of [place] coronary artery of [place] heart with angina pectoris Essential hypertension Ischemic cardiomyopathy PAD (peripheral artery disease) from Last 3 Months or Most Recently Relevant to Health Maintenance Results * (ABNORMAL) Comprehensive metabolic panel (04/18/2022 2:39 PM EDT) SODIUM 143 133 - 146 mmol/L [facility] POTASSIUM 4.5 3.3 - 5.1 mmol/L [facility] CHLORIDE 100 96 - 108 mmol/L [facility] CO2 34 21 - 35 mmol/L [facility] BUN 38(H) 6 - 19 mg/dL [facility] CREATININE 1.40 0.5 - 1.5 mg/dL [facility] GLUCOSE 163(H) 70 - 99 mg/dL [facility] ALBUMIN 4.0 3.9 - 4.8 g/dL [facility] TOTAL PROTEIN 7.5 6.5 - 8.0 g/dL [facility] CALCIUM 10.1 8.4 - 10.3 mg/dL [facility] ALKALINE PHOSPHATASE 94 39 - 117 U/L [facility] TOTAL BILIRUBIN 0.6 0.0 - 1.2 mg/dL [facility] AST 26 0 - 37 U/L [facility] ALT 12 0 - 40 U/L [facility] GLOBULIN 3.5 1 - 4.8 g/dL [facility] EGFR 39(L) >59 mL/min/1.7 3m2 [facility] Comment:Estimated glomerular filtration rate calculated using the CKD-EPI refit equation. ANION GAP 14 10 - 20 mmol/L [facility] Blood 04/18/2022 2:39 PM EDT 04/18/2022 2:42 PM EDT us Miguel Enciso MD LAB BLOOD ORDERABLES Final Result [facility] [address] [place] [address] from Last 3 Months or Most Recently Relevant to Health Maintenance Insurance MEDICARE PART A & B [place] MEDICARE PREFERRED HMO REPLACEMENT [facility] [place] [address] MEDICARE PART A & B [place] MED[place] PREFERRED HMO REPLACEMENT [facility] [place] [address] MEDICARE PART A & B Member Subscriber Plan / Payer (Ef fective 2012-Present) Name:Amina Zamora Member ID:[id number] Relation to Subscriber:Self Name:Amina Zamora Subscriber ID:[id number] Payer ID:[id number] Group ID:Not on file Type:Medicare Address: [employer] [address] [place] [phone] [facility] MEDICARE PREFERRED HMO REPLACEMENT MEDICARE PART A & B [place] MED[place]ARE PREFERRED HMO REPLACEMENT MEDICARE PART A & B [place] MEDICARE PREFERRED HMO REPLACEMENT [facility] MEDICARE PART A & B [place] MEDICARE PREFERRED HMO REPLACEMENT MEDICARE PART A & B [place] MED[place]ARE PREFERRED HMO REPLACEMENT [facility] MEDICARE PART A & B [place] MED[place]ARE PREFERRED HMO REPLACEMENT [facility] MEDICARE PART A & B [place] MEDICARE PREFERRED HMO REPLACEMENT [facility] Q[facility] Care Teams Transmission Technician Relationship Specialty Start Date End Date Dandre Chavez MD [address] [place] [address] PCP - General 09/05/17 Miguel Enciso MD [address] [place] [address] [email or web address] Cardiology 05/28/24 Additional Source Comments The information contained in this document represents components of the legal health record. It is not the complete legal health record.[facility]
--- OUTSIDE RECORDS SUMMARY | 2025-06-16 06:03 | XMS_ITS | Encounter Summary ---
Author Organization [facility], Address [address] [place] [address] Phone Care Team Providers Care Second Steward Name Role Phone Dandre Chavez MD Primary Care Provider [phone] Encounter Details Date Type Department Care Team (Late st Contact Info) Description 12/31/2022 Documentation Only [facility], [address] [place] [address] Melissa Delgadillo [address] [place] [phone] Social History Tobacco Use Types Packs/Day Years [...] on filedocumented in this encounter Care Teams Second Steward Relationship Specialty Start Date End Date Dandre Chavez MD [address] [place] [address], [address] [place], [place] PCP - General 07/07/19 documented as of this encounter
--- OUTSIDE RECORDS SUMMARY | 2025-06-16 06:03 | XMS_ITS | Encounter Summary ---
Author Organization [facility] Address [address] [place] [address] Care Team Providers Care Compressor Stations Superintendent Name Role Phone Amina Burciaga MD Primary Care Provider [phone] Encounter Details Date Type Department Care Team (Late st Contact Info) Description 07/20/2024 Lab Requisition [facility] - Main Lab 299 [facility] [place] [address] Hortencia Mcclellan MD 8[address] [facility] 1 [place], [place] [id number] Type 2 diabetes mellitus without complications (CMS/HCC [...] Result [facility] [address] [place] [address], * (ABNORMAL) Complete blood count (07/21/2024 5:53 AM EST) [facility] WBC 5.0 4.8 - 10.8 K/mcL LAB [...] Result [facility] [address] [place] [address], documented in this encounter Visit Diagnoses Diagnosis Type 2 diabetes mellitus without complications (CMS/HCC V24, CMS/HCC V28) Heart failure, unspecified (CMS/HCC V24, CMS/HCC V28) Heart failure, unspecified documented in this encounter Care Teams Compressor Stations Superintendent Relationship Specialty Start Date End Date Amina Burciaga MD [address] [place] [address] PCP - General Hospitalist Medicine 09/11/24 documented as of this encounter
--- OUTSIDE RECORDS SUMMARY | 2025-06-16 06:03 | XMS_ITS | Encounter Summary ---
Author Organization [facility] Address [address] [place] [address] Care Team Providers Care Geographic Information System Surveyor Name Role Phone Amina Burciaga MD Primary Care Provider [phone] Encounter Details Date Type Department Care Team (Late st Contact Info) Description 08/10/2024 Lab Requisition [facility] - Main Lab 299 [facility] [employer] [place] [address] Hortencia Mcclellan MD [address] [phone] Type 2 diabetes mellitus without complications (CMS/HCC [...] unspecified documented in this encounter Care Teams Geographic Information System Surveyor Relationship Specialty Start Date End Date Amina Burciaga MD [address] [place] [address] PCP - General Hospitalist Medicine 09/11/24 documented as of this encounter
--- OUTSIDE RECORDS SUMMARY | 2025-06-16 06:03 | XMS_ITS | Encounter Summary ---
Author Organization [facility] Address [address] [place], [place] [address] [place] [address] Phone Care Team Providers Care Engine Repairer Production Name Role Phone Dandre Chavez MD Primary Care Provider [phone] Miguel Enciso MD Unavailable [phone] Encounter Details Date Type Department Care Team (Late st Contact Info) Description 07/01/2024 Procedure Pass [facility] Cardiology Referral Images [address] [facility] [address] [place] [address] Social History Tobacco Use Types Packs/Day Years [...] on filedocumented in this encounter Care Teams Engine Repairer Production Relationship Specialty Start Date End Date Dandre Chavez MD [address] [place] [address] PCP - General 09/05/17 Miguel Enciso MD [address] [place] [address] [email or web address] Cardiology 05/28/24 documented as of this encounter Additional Source Comments The information contained in this document represents components of the legal health record. It is not the complete legal health record.[facility]
--- OUTSIDE RECORDS SUMMARY | 2025-06-16 06:03 | XMS_ITS | Encounter Summary ---
Author Organization [facility], Address [address] [place] [address] Phone Care Team Providers Care Meter Maker Name Role Phone Dandre Chavez MD Primary Care Provider [phone] Encounter Details Date Type Department Care Team (Late st Contact Info) Description 02/08/2022 Documentation Only [facility], [address] [place] [address] Faina Villegas PA Social History Tobacco Use [...] on filedocumented in this encounter Care Teams Meter Maker Relationship Specialty Start Date End Date Dandre Chavez MD [address] [place] [address], [address] [place], [place] PCP - General 07/07/19 documented as of this encounter
--- OUTSIDE RECORDS SUMMARY | 2025-06-16 06:03 | XMS_ITS | Encounter Summary ---
Author Organization [facility] Address [address] [place], [place] [address] [place] [address] Phone Care Team Providers Care Cable Driller Name Role Phone Dandre Chavez MD Primary Care Provider [phone] Miguel Enciso MD Unavailable [phone] Encounter Details Date Type Department Care Team (Late st Contact Info) Description 07/01/2024 Procedure Pass [facility] Cardiology Referral Images [address] [facility] [address] [place] [address] Social History Tobacco Use Types Packs/Day Years [...] on filedocumented in this encounter Care Teams Cable Driller Relationship Specialty Start Date End Date Dandre hCavez MD [address] [place] [address] PCP - General 09/05/17 Miguel Enciso MD [address] [place] [address] [email or web address] Cardiology 05/28/24 documented as of this encounter Additional Source Comments The information contained in this document represents components of the legal health record. It is not the complete legal health record.[facility]
--- OUTSIDE RECORDS SUMMARY | 2025-06-16 06:03 | XMS_ITS | Encounter Summary ---
Author Organization [facility] Address [address] [place] [address] Care Team Providers Care Gray Mixing Operator Name Role Phone Amina Burciaga MD Primary Care Provider [phone] Encounter Details Date Type Department Care Team (Late st Contact Info) Description 08/03/2024 Lab Requisition [facility] - Main Lab 299 [facility] [place] [address] Hortencia Mcclellan MD [address] [phone] Type 2 diabetes mellitus without complications (CMS/HCC [...] mmol/L LAB CHEMISTRY METHOD 08/04/2024 9:42 AM [facility] Potassium 3.6 3.5 - 5.5 mmol/L LAB CHEMISTRY METHOD 08/04/2024 9:42 AM [facility] Chloride 106 96 - 110 mmol/L LAB CHEMISTRY METHOD 08/04/2024 9:42 AM [facility] CO2 29 21 - 32 mmol/L LAB CHEMISTRY METHOD 08/04/2024 9:42 AM [facility] Anion Gap 8 3 - 11 LAB CHEMISTRY METHOD 08/04/2024 9:42 AM [facility] Glucose 64(L) 70 - 100 mg/dL LAB CHEMISTRY METHOD 08/04/2024 9:42 AM [facility] BUN 44(H) 5 - 25 mg/dL LAB CHEMISTRY METHOD 08/04/2024 9:42 AM [facility] Creatinine 2.43(H) 0.50 - 1.10 mg/dL LAB CHEMISTRY METHOD 08/04/2024 9:42 AM [facility] eGFR 20(L) >=60 mL/min/1. 73m2 LAB CHEMISTRY METHOD 08/04/2024 9:42 AM [facility] Comment:Calculation based on the Chronic Kidney Disease Epidemiology Collaboration (CKD-EPI) equation refit without adjustment for race. BUN/Creatinine Ratio 18.1 LAB CHEMISTRY METHOD 08/04/2024 9:42 AM [facility] Calcium 8.8 8.5 - 10.5 mg/dL LAB CHEMISTRY METHOD 08/04/2024 9:42 AM [facility] Blood Venous blood specimen / Unknown Venipuncture / Unknown 08/04/2024 6:38 AM EST 08/04/2024 8:24 AM EST us Hortencia Mcclellan MD LAB BLOOD ORDERABLES Fin al Result [facility] [address] [place] [address], * (ABNORMAL) Complete blood count (08/04/2024 6:38 AM EST) [facility] WBC 4.5(L) 4.8 - 10.8 K/mcL LAB HEMETOLOGY METHOD 08/04/2024 9:19 AM [facility] RBC 3.20(L) 3.80 - 4.80 M/mcL LAB HEMETOLOGY METHOD 08/04/2024 9:19 AM [facility] Hemoglobin 9.0(L) 11.5 - 16.0 g/dL LAB HEMETOLOGY METHOD 08/04/2024 9:19 AM [facility] Hematocrit 31.8(L) 35.0 - 47.0 % LAB HEMETOLOGY METHOD 08/04/2024 9:19 AM [facility] MCV 100.0(H) 79.0 - 98.0 FL LAB HEMETOLOGY METHOD 08/04/2024 9:19 AM [facility] MCH 28.3 27.0 - 32.0 pcg LAB HEMETOLOGY METHOD 08/04/2024 9:19 AM [facility] MCHC 28.3(L) 32.0 - 37.0 g/dL LAB HEMETOLOGY METHOD 08/04/2024 9:19 AM [facility] RDW 18.9(H) 11.0 - 15.0 % LAB HEMETOLOGY METHOD 08/04/2024 9:19 AM [facility] Platelets 188 130 - 400 K/mcL LAB HEMETOLOGY METHOD 08/04/2024 9:19 AM [facility] MPV 10.6 7.0 - 11.0 FL LAB HEMETOLOGY METHOD 08/04/2024 9:19 AM [facility] LAB [...] Fin al Result [facility] [address] [place] [address], documented in this encounter Visit Diagnoses Diagnosis Type 2 diabetes mellitus without complications (CMS/HCC V24, CMS/HCC V28) Heart failure, unspecified (CMS/HCC V24, CMS/HCC V28) Heart failure, unspecified documented in this encounter Care Teams Gray Mixing Operator Relationship Specialty Start Date End Date Amina Burciaga MD [address] [place] [address] PCP - General Hospitalist Medicine 09/11/24 documented as of this encounter
--- OUTSIDE RECORDS SUMMARY | 2025-06-16 06:04 | XMS_ITS | Encounter Summary ---
Author Organization [facility] Address [address] [place] [address] Phone Care Team Providers Care Ground Operations Supervisor Name Role Phone Dandre Chavez MD Primary Care Provider [phone] Miguel Enciso MD Unavailable [phone] Encounter Details Date Type Department Care Team (Late st Contact Info) Description 04/03/2022 Procedure Pass [facility] [address] [place] [address] Social History Tobacco Use Types Packs/Day Years [...] filedocumented in this encounter Care Teams Ground Operations Supervisor Relationship Specialty Start Date End Date Dandre Chavez MD [address] [phone] PCP - General 09/05/17 Miguel Enciso MD [address] [place] [address], [address] [place], [place] [phone] Cardiology 05/28/24 documented as of this encounter Additional Source Comments The information contained in this document represents components of the legal health record. It is not the complete legal health record.[facility]
--- OUTSIDE RECORDS SUMMARY | 2025-06-16 06:04 | XMS_ITS | Encounter Summary ---
Author Organization [facility], Address [address] [place] [address] Phone Care Team Providers Care Drop Tester Name Role Phone Dandre Chavez MD Primary Care Provider [phone] Encounter Details Date Type Department Care Team (Late st Contact Info) Description 10/12/2021 Documentation Only [facility], [address] [place] [address] Faina Villegas PA Social History Tobacco Use [...] on filedocumented in this encounter Care Teams Drop Tester Relationship Specialty Start Date End Date Dandre Chavez MD [address] [place] [address], [address] [place], [place] PCP - General 07/07/19 documented as of this encounter
--- OUTSIDE RECORDS SUMMARY | 2025-06-16 06:04 | XMS_ITS | Encounter Summary ---
Author Organization [facility] Address [address] [place] [address] Phone Care Team Providers Care Oncology Coordinator Name Role Phone Dandre Chavez MD Primary Care Provider [phone] Miguel Enciso MD Unavailable [phone] Encounter Details Date Type Department Care Team (Late st Contact Info) Description 08/18/2021 Procedure Pass Echo Lab [address] [id number] Social History Tobacco Use Types Packs/Day Years [...] on filedocumented in this encounter Care Teams Oncology Coordinator Relationship Specialty Start Date End Date Dandre Chavez MD [address] [place] [address] [phone] PCP - General 09/05/17 Miguel Enciso MD [address] [place] [address], [address] [place], [place] [phone] Cardiology 05/28/24 documented as of this encounter Additional Source Comments The information contained in this document represents components of the legal health record. It is not the complete legal health record.[facility]
--- OUTSIDE RECORDS SUMMARY | 2025-06-16 06:04 | XMS_ITS | Encounter Summary ---
Author Organization [facility] Address [address] [place] [address] Phone Care Team Providers Care Right Of Way Worker Name Role Phone Dandre Chavez MD Primary Care Provider [phone] Miguel Enciso MD Unavailable [phone] Encounter Details Date Type Department Care Team (Late st Contact Info) Description 09/18/2019 Ancillary Orders [facility] [address] 3rd Floor [place], [place] [phone] Miguel Enciso MD [address] [place] [address], [address] [place], [place] [phone] [email or web address] PVD (peripheral vascular disease) Social [...] disease documented in this encounter Care Teams Right Of Way Worker Relationship Specialty Start Date End Date Dandre Chavez MD [address] [place] [address] PCP - General 09/05/17 Miguel Enciso MD [address] [place] [address] [address] [place] [address] Cardiology 05/28/24 documented as of this encounter Additional Source Comments The information contained in this document represents components of the legal health record. It is not the complete legal health record.[facility]
--- OUTSIDE RECORDS SUMMARY | 2025-06-16 06:04 | XMS_ITS | Encounter Summary ---
Author Organization [facility], Address [address] [place] [address] Phone Care Team Providers Care Assistant Professor In Family Studies Name Role Phone Dandre Chavez MD Primary Care Provider [phone] Encounter Details Date Type Department Care Team (Late st Contact Info) Description 09/25/2021 Documentation Only [facility], [address] [place] [address] Faina Villegas PA Social History Tobacco Use [...] filedocumented in this encounter Care Teams Assistant Professor In Family Studies Relationship Specialty Start Date End Date Dandre Chavez MD [address] [place] [address], [address] [place], [place] PCP - General 07/07/19 documented as of this encounter
--- OUTSIDE RECORDS SUMMARY | 2025-06-16 06:04 | XMS_ITS | Encounter Summary ---
Author Organization [facility], Address [address] [place] [address] Phone Care Team Providers Care Analog Circuit Designer Name Role Phone Dandre Chavez MD Primary Care Provider Encounter Details Date Type Department Care Team (Late st Contact Info) Description 10/10/2021 Documentation Only [facility], [address] [place] [address] Faina Villegas PA Social History Tobacco Use [...] on filedocumented in this encounter Care Teams Analog Circuit Designer Relationship Specialty Start Date End Date Dandre Chavez MD [address] [place] [address], [address] [place], [place] PCP - General 07/07/19 documented as of this encounter
--- OUTSIDE RECORDS SUMMARY | 2025-06-16 06:04 | XMS_ITS | Encounter Summary ---
Author Organization [facility] Address [address] [place] [address] Phone Care Team Providers Care Ticket Maker Name Role Phone Dandre Chavez MD Primary Care Provider [phone] Miguel Encsio MD Unavailable [phone] Encounter Details Date Type Department Care Team (Late st Contact Info) Description 12/20/2022 Procedure Pass Non-Invasive Cardiology [address] [place], [place] [phone] Social History Tobacco Use Types Packs/Day Years [...] on filedocumented in this encounter Care Teams Ticket Maker Relationship Specialty Start Date End Date Dandre Chavez MD [address] [place] [address] [phone] PCP - General 09/05/17 Miguel Enciso MD [address] [place] [address], [address] [place], [place] [phone] Cardiology 05/28/24 documented as of this encounter Additional Source Comments The information contained in this document represents components of the legal health record. It is not the complete legal health record.[facility]
--- OUTSIDE RECORDS SUMMARY | 2025-06-16 06:04 | XMS_ITS | Encounter Summary ---
Author Organization [facility] Address [address] [place] [address] Phone Care Team Providers Care Tar Chaser Name Role Phone Dandre Chavez MD Primary Care Provider [phone] Miguel Enciso MD Unavailable [phone] Encounter Details Date Type Department Care Team (Late st Contact Info) Description 12/21/2022 Procedure Pass Echo Lab [address] [id number] Social History Tobacco Use Types Packs/Day Years [...] on filedocumented in this encounter Care Teams Tar Chaser Relationship Specialty Start Date End Date Dandre Chavez MD [address] [place] [address] [phone] PCP - General 09/05/17 Miguel Enciso MD [address] [facility], [address] [place], [place] [phone] Cardiology 05/28/24 documented as of this encounter Additional Source Comments The information contained in this document represents components of the legal health record. It is not the complete legal health record.[facility]
[2025-06-16 07:34] LABS: Appearance Urine Turbid; Glucose Urine UA 100 mg/dL (Negative); PH 8.5 (5.0-9.0); Specific Gravity - Urine 1.010 (1.005-1.025); UMIC TRIGGER UA YES
[2025-06-16 07:51] LABS: Other Crystals Urine Present
== END 2025-06-16 06:01 | disposition home or self-care (01) ==
LOC: HO.MMNH2L 21:00
PROVIDERS: Student in an Organized Health Care Education/Training Program; Visit Provider Physician Assistant Medical
DX: Z13.89 Encounter for screening for other disorder (principal)
CPT/HCPCS: 81001; 87086

== ENCOUNTER 2025-07-05 05:45 | Outpatient (REF) | payer MEDICARE, SELFPAY ==
--- OUTSIDE RECORDS SUMMARY | 2018-12-31 04:05 | XMS_ITS | Continuity of Care Document ---
Author Organization [facility] Address [address] [address] Phone Care Team Providers Care Sql Database Developer Name Role Phone Brodie Hinds DO Unavailable Unavailable Advance Directives Directive Yes / No Effective Date File Name No Information Encounters Encounter Description Practice Location Reason(s) For Visit Diagnoses Date Provider [facility], [address], [id number], [place] tel:[phone] [address] [place] [address] No Information 2018 Guzman Calloway. [address] [place] [address], [id number], [place]. tel:[phone] Family History Family Member Type Diagnosis Age [...]
[2025-07-05 05:38] LABS: MANUAL DIFF FLAG NO
--- OUTSIDE RECORDS SUMMARY | 2025-07-05 05:48 | XMS_ITS | Encounter Summary ---
Author Organization [facility] Address [address] [place] [address] Phone Care Team Providers Care Optomechanical Engineer Name Role Phone Dandre Chavez MD Primary Care Provider [phone] Miguel Enciso MD Unavailable Encounter Details Date Type Department Care Team (Latest Contact Info) Description 12/16/2018 Ancillary Orders Non-Invasive Cardiology 30 [place] [address] Cathy Browning NP [address] [place] [address] Atherosclerosis of [place] coronary artery of [place] heart with angina pectoris Social History Tobacco [...] AM EDT) Max BP Systolic 150 mmHg [facility] Max BP Diastolic 80 mmHg [facility] Max HR 89 BPM [facility] Resting HR 78 BPM [facility] Resting BP Systolic 150 mmHg [facility] Resting BP Diastolic 80 mmHg [facility] Peak METS 1.0 METS [facility] Peak HR 83 BPM [facility] Anatomical Region Laterality Modality Heart Other [...] Visit Diagnoses Diagnosis 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 It is not the complete legal health record.[facility]
--- OUTSIDE RECORDS SUMMARY | 2025-07-05 05:48 | XMS_ITS | Encounter Summary ---
Author Organization [facility] Address [address] [place], [place] [address] [place] [address] Phone Care Team Providers Care Dusting And Brushing Machine Operator Name Role Phone Dandre Chavez MD Primary Care Provider [phone] Miguel Enciso MD Unavailable [phone] Encounter Details Date Type Department Care Team (Late st Contact Info) Description 07/01/2024 Procedure Pass [facility] Card[facility] Referral Images [address] [place] [address] Social History Tobacco Use Types Packs/Day Years [...] on filedocumented in this encounter Care Teams Dusting And Brushing Machine Operator Relationship Specialty Start Date End Date Dandre Chavez MD [address] [place] [address] PCP - General 09/05/17 Miguel Enciso MD [address] [place] [address] [email or web address] Cardiology 05/28/24 documented as of this encounter Additional Source Comments The information contained in this document represents components of the legal health record. It is not the complete legal health record.[facility]
--- OUTSIDE RECORDS SUMMARY | 2025-07-05 05:48 | XMS_ITS | Encounter Summary ---
Author Organization [facility], Address [address] [place] [address] Phone Care Team Providers Care Artillery Maintenance Supervisor Name Role Phone Dandre Chavez MD Primary Care Provider [phone] Encounter Details Date Type Department Care Team (Late st Contact Info) Description 09/25/2021 Documentation Only [facility], [address] [place] [address] Faina Villegas PA Social History Tobacco Use [...] on filedocumented in this encounter Care Teams Artillery Maintenance Supervisor Relationship Specialty Start Date End Date Dandre Chavez MD [address] [place] [address], [address] [place], [place] PCP - General 07/07/19 documented as of this encounter
--- OUTSIDE RECORDS SUMMARY | 2025-07-05 05:48 | XMS_ITS | Encounter Summary ---
Author Organization [facility], Address [address] [place] [address] Phone Care Team Providers Care Field Professional Name Role Phone Dandre Chavez MD Primary Care Provider [phone] Encounter Details Date Type Department Care Team (Late st Contact Info) Description 02/08/2022 Documentation Only [facility], [address] [place] [address] Faina Villegas PA Social History Tobacco Use [...] on filedocumented in this encounter Care Teams Field Professional Relationship Specialty Start Date End Date Dandre Chavez MD [address] [place] [address], [address] [place], [place] PCP - General 07/07/19 documented as of this encounter
--- OUTSIDE RECORDS SUMMARY | 2025-07-05 05:48 | XMS_ITS | Encounter Summary ---
Author Organization [facility], Address [address] [place] [address] Phone Care Team Providers Care Warehouse Distribution Associate Name Role Phone Dandre Chavez MD Primary Care Provider [phone] Encounter Details Date Type Department Care Team (Late st Contact Info) Description 10/12/2021 Documentation Only [facility], [address] [place] [address] Faina Villegas PA Social History Tobacco Use [...] on filedocumented in this encounter Care Teams Warehouse Distribution Associate Relationship Specialty Start Date End Date Dandre Chavez MD [address] [place] [address], [address] [place], [place] PCP - General 07/07/19 documented as of this encounter
--- OUTSIDE RECORDS SUMMARY | 2025-07-05 05:48 | XMS_ITS | Encounter Summary ---
Author Organization [facility], Address [address] [place] [address] Phone Care Team Providers Care Oracle Fusion Consultant Name Role Phone Dandre Chavez MD Primary Care Provider [phone] Encounter Details Date Type Department Care Team (Late st Contact Info) Description 11/29/2023 Documentation Only [facility], [address] [place] [address] Radha Chatterjee [place] [address] [place] [phone] Social History Tobacco Use Types Packs/Day Years [...] on filedocumented in this encounter Care Teams Oracle Fusion Consultant Relationship Specialty Start Date End Date Dandre Chavez MD [address] [place] [address], [address] [place], [place] PCP - General 07/07/19 documented as of this encounter
--- OUTSIDE RECORDS SUMMARY | 2025-07-05 05:48 | XMS_ITS | Encounter Summary ---
Author Organization [facility] Address [address] [place] [address] Care Team Providers Care Speech Pathologist Name Role Phone Amina Burciaga MD Primary Care Provider [phone] Encounter Details Date Type Department Care Team (Late st Contact Info) Description 09/30/2024 Lab Requisition [facility] - Main Lab [address] [facility] [place] [address] Isaac Stark MD [address] [place] [address] [place] [address] Heart failure, unspecified [...] (ABNORMAL) Vitamin B12 (09/30/2024 9:57 AM EST) [facility] Vitamin B-12 1,028(H) 250 - 900 pcg/mL LAB CHEMISTRY METHOD 09/30/2024 1:04 PM [facility] Blood Venous blood specimen / Unknown Venipuncture / Unknown 09/30/2024 9:57 AM EST 09/30/2024 10:50 AM EST us Isaac Stark MD LAB BLOOD ORDERABLES Final Resu lt [facility] [address] [place] [address], [place] [phone] * (ABNORMAL) Comprehensive metabolic panel (09/30/2024 9:57 AM EST) [facility] Sodium 138 133 - 145 mmol/L [...] Resu lt [facility] [address] [place] [address], * (ABNORMAL) Complete blood count (09/30/2024 9:57 AM EST) [facility] WBC 5.9 4.8 - 10.8 K/mcL [...] [facility]/ZIP Co de Phone Number [facility] [address] [place] [address], [place] [phone] * Vitamin D 25 hydroxy (09/30/2024 9:57 AM EST) Vit D, 25-Hydroxy 54.9 30.0 - 80.0 ng/mL LAB CHEMISTRY METHOD 09/30/2024 12:48 PM EST [facility] Blood Venous blood specimen / Unknown Venipuncture / Unknown 09/30/2024 9:57 AM EST 09/30/2024 10:50 AM EST us Isaac Stark MD LAB BLOOD ORDERABLES Final Resu lt Performing Organization Address [facility]/ZIP Co de Phone Number [facility] [address] [place] [address], [place] [phone] documented in this encounter Visit Diagnoses Diagnosis Heart failure, unspecified (CMS/HCC V24, CMS/HCC V28) Heart failure, unspecified Vitamin D deficiency, unspecified documented in this encounter Care Teams Speech Pathologist Relationship Specialty Start Date End Date Amina Burciaga MD [address] [place] [phone] PCP - General Hospitalist Medicine 09/11/24 documented as of this encounter
--- OUTSIDE RECORDS SUMMARY | 2025-07-05 05:48 | XMS_ITS | Encounter Summary ---
Author Organization [facility], Address [address] [place] [address] Phone Care Team Providers Care Manager Managed Backup Services Name Role Phone Dandre Chavez MD Primary Care Provider [phone] Encounter Details Date Type Department Care Team (Late st Contact Info) Description 08/06/2023 Documentation Only [facility], [address] [place] [address] Desi Rodriguez Social History Tobacco Use Types [...] filedocumented in this encounter Care Teams Manager Managed Backup Services Relationship Specialty Start Date End Date Dandre Chavez MD [address] [place] [address], [address] [place], [place] PCP - General 07/07/19 documented as of this encounter
--- OUTSIDE RECORDS SUMMARY | 2025-07-05 05:48 | XMS_ITS | Encounter Summary ---
Author Organization [facility] Address [address] [place] [address] Care Team Providers Care Knitter Machine Name Role Phone Amina Burciaga MD Primary Care Provider [phone] Encounter Details Date Type Department Care Team (Late st Contact Info) Description 08/03/2024 Lab Requisition [facility] - Main Lab [address] [facility] [place] [address] Hortencia Mcclellan MD [address] [id number] Type 2 diabetes mellitus without complications (CMS/HCC [...] mmol/L LAB CHEMISTRY METHOD 08/04/2024 9:42 AM [facility] Potassium 3.6 3.5 - 5.5 mmol/L LAB CHEMISTRY METHOD 08/04/2024 9:42 AM [facility] Chloride 106 96 - 110 mmol/L LAB CHEMISTRY METHOD 08/04/2024 9:42 AM [facility] CO2 29 21 - 32 mmol/L LAB CHEMISTRY METHOD 08/04/2024 9:42 AM [facility] Anion Gap 8 3 - 11 LAB CHEMISTRY METHOD 08/04/2024 9:42 AM [facility] Glucose 64(L) 70 - 100 mg/dL LAB CHEMISTRY METHOD 08/04/2024 9:42 AM [facility] BUN 44(H) 5 - 25 mg/dL LAB CHEMISTRY METHOD 08/04/2024 9:42 AM [facility] Creatinine 2.43(H) 0.50 - 1.10 mg/dL LAB CHEMISTRY METHOD 08/04/2024 9:42 AM [facility] eGFR 20(L) >=60 mL/min/1. 73m2 LAB CHEMISTRY METHOD 08/04/2024 9:42 AM [facility] Comment:Calculation based on the Chronic Kidney Disease Epidemiology Collaboration (CKD-EPI) equation refit without adjustment for race. BUN/Creatinine Ratio 18.1 LAB CHEMISTRY METHOD 08/04/2024 9:42 AM [facility] Calcium 8.8 8.5 - 10.5 mg/dL LAB CHEMISTRY METHOD 08/04/2024 9:42 AM [facility] Blood Venous blood specimen / Unknown Venipuncture / Unknown 08/04/2024 6:38 AM EST 08/04/2024 8:24 AM EST us Hortencia Mcclellan MD LAB BLOOD ORDERABLES Fin al Result [facility] [address] [place] [address], * (ABNORMAL) Complete blood count (08/04/2024 6:38 AM EST) [facility] WBC 4.5(L) 4.8 - 10.8 K/mcL LAB HEMETOLOGY METHOD 08/04/2024 9:19 AM [facility] RBC 3.20(L) 3.80 - 4.80 M/mcL LAB HEMETOLOGY METHOD 08/04/2024 9:19 AM [facility] Hemoglobin 9.0(L) 11.5 - 16.0 g/dL LAB HEMETOLOGY METHOD 08/04/2024 9:19 AM [facility] Hematocrit 31.8(L) 35.0 - 47.0 % LAB HEMETOLOGY METHOD 08/04/2024 9:19 AM [facility] MCV 100.0(H) 79.0 - 98.0 FL LAB HEMETOLOGY METHOD 08/04/2024 9:19 AM [facility] MCH 28.3 27.0 - 32.0 pcg LAB HEMETOLOGY METHOD 08/04/2024 9:19 AM [facility] MCHC 28.3(L) 32.0 - 37.0 g/dL LAB HEMETOLOGY METHOD 08/04/2024 9:19 AM [facility] RDW 18.9(H) 11.0 - 15.0 % LAB HEMETOLOGY METHOD 08/04/2024 9:19 AM [facility] Platelets 188 130 - 400 K/mcL LAB HEMETOLOGY METHOD 08/04/2024 9:19 AM [facility] MPV 10.6 7.0 - 11.0 FL LAB HEMETOLOGY METHOD 08/04/2024 9:19 AM [facility] NRBC 0.0 <1.0 % LAB HEMETOLOGY METHOD 08/04/2024 9:19 AM EST [facility] NRBC Absolute 0.00 <0.10 K/mcL LAB HEMETOLOGY METHOD 08/04/2024 9:19 AM EST [facility] Blood Venous blood specimen / Unknown Venipuncture / Unknown 08/04/2024 6:38 AM EST 08/04/2024 8:24 AM EST us Hortencia Mcclellan MD LAB BLOOD ORDERABLES Fin al Result [facility] [address] [place] [address], documented in this encounter Visit Diagnoses Diagnosis Type 2 diabetes mellitus without complications (CMS/HCC V24, CMS/HCC V28) Heart failure, unspecified (CMS/HCC V24, CMS/HCC V28) Heart failure, unspecified documented in this encounter Care Teams Knitter Machine Relationship Specialty Start Date End Date Amina Burciaga MD [address] [place] [address] PCP - General Hospitalist Medicine 09/11/24 documented as of this encounter
--- OUTSIDE RECORDS SUMMARY | 2025-07-05 05:48 | XMS_ITS | Clinical Summary ---
Author Organization [facility] Address [address] [place] [address] Care Team Providers Care Claims Configuration Analyst Name Role Phone Dandre Chavez MD Primary Care Provider [phone] Allergies Active Allergy Reactions Criticality Noted Date [...] age to complete this topic Care Teams Claims Configuration Analyst Relationship Specialty Start Date End Date Dandre Chavez MD [address] [place] [address] [place] [phone] PCP - General Internal Medicine 11/06/22
--- OUTSIDE RECORDS SUMMARY | 2025-07-05 05:48 | XMS_ITS | Encounter Summary ---
Author Organization [facility], Address [address] [place] [address] Phone Care Team Providers Care Lace Roller Name Role Phone Dandre Chavez MD Primary Care Provider [phone] Encounter Details Date Type Department Care Team (Late st Contact Info) Description 10/30/2022 Documentation Only [facility], [address] [place] [address] Melissa Delgadillo [address] [place] [phone] Social History Tobacco Use Types Packs/Day Years [...] on filedocumented in this encounter Care Teams Lace Roller Relationship Specialty Start Date End Date Dandre Chavez MD [address] [place] [address], [address] [place], [place] PCP - General 07/07/19 documented as of this encounter
--- OUTSIDE RECORDS SUMMARY | 2025-07-05 05:48 | XMS_ITS | Encounter Summary ---
Author Organization [facility], Address [address] [place] [address] Phone Care Team Providers Care Ham Doctor Name Role Phone Dandre Chavez MD Primary Care Provider [phone] Encounter Details Date Type Department Care Team (Late st Contact Info) Description 12/31/2022 Documentation Only [facility], [address] [place] [address] Melissa Delgadillo [address] [place] [phone] Social History Tobacco Use Types Packs/Day Years [...] on filedocumented in this encounter Care Teams Ham Doctor Relationship Specialty Start Date End Date Dandre Chavez MD [address] [place] [address], [address] [place], [place] PCP - General 07/07/19 documented as of this encounter
--- OUTSIDE RECORDS SUMMARY | 2025-07-05 05:48 | XMS_ITS | Encounter Summary ---
Author Organization [facility] Address [address] [place] [address] Phone Care Team Providers Care Software Systems Architect Name Role Phone Dandre Chavez MD Primary Care Provider [phone] Miguel Enciso MD Unavailable [phone] Encounter Details Date Type Department Care Team (Late st Contact Info) Description 04/03/2022 Procedure Pass [facility] [address] [place] [address] Social History Tobacco Use Types Packs/Day Years [...] on filedocumented in this encounter Care Teams Software Systems Architect Relationship Specialty Start Date End Date Dandre Chavez MD [address] [id number] PCP - General 09/05/17 Miguel Enciso MD [address] [place] [address], [address] [place], [place] [id number] Cardiology 05/28/24 documented as of this encounter Additional Source Comments The information contained in this document represents components of the legal health record. It is not the complete legal health record.[facility]
--- OUTSIDE RECORDS SUMMARY | 2025-07-05 05:48 | XMS_ITS | Encounter Summary ---
Author Organization [facility] Address [address] [place] [address] Care Team Providers Care Fur Polisher Name Role Phone Amina Burciaga MD Primary Care Provider [phone] Encounter Details Date Type Department Care Team (Late st Contact Info) Description 07/10/2024 Lab Requisition [facility] - Main Lab [address] [facility] [place] [address] Lloyd Jernigan MD [address] [place] [address] Unspecified dementia, unspecified severity, without behavioral disturbance, [...] mmol/L LAB CHEMISTRY METHOD 07/10/2024 9:59 AM [facility] Potassium 4.4 3.5 - 5.5 mmol/L LAB CHEMISTRY METHOD 07/10/2024 9:59 AM [facility] Chloride 103 96 - 110 mmol/L LAB CHEMISTRY METHOD 07/10/2024 9:59 AM [facility] CO2 31 21 - 32 mmol/L LAB CHEMISTRY METHOD 07/10/2024 9:59 AM [facility] Anion Gap 5 3 - 11 LAB CHEMISTRY METHOD 07/10/2024 9:59 AM [facility] Glucose 115(H) 70 - 100 mg/dL LAB CHEMISTRY METHOD 07/10/2024 9:59 AM [facility] BUN 62(H) 5 - 25 mg/dL LAB CHEMISTRY METHOD 07/10/2024 9:59 AM [facility] Creatinine 2.86(H) 0.50 - 1.10 mg/dL LAB CHEMISTRY METHOD 07/10/2024 9:59 AM [facility] eGFR 16(L) >=60 mL/min/1. 73m2 LAB CHEMISTRY METHOD 07/10/2024 9:59 AM [facility] Comment:Calculation based on the Chronic Kidney Disease Epidemiology Collaboration (CKD-EPI) equation refit without adjustment for race. BUN/Creatinine Ratio 21.7 LAB CHEMISTRY METHOD 07/10/2024 9:59 AM [facility] Calcium 9.3 8.5 - 10.5 mg/dL LAB CHEMISTRY METHOD 07/10/2024 9:59 AM [facility] Blood Venous blood specimen / Unknown Venipuncture / Unknown 07/10/2024 6:29 AM EST 07/10/2024 9:00 AM EST us Lloyd Jernigan MD LAB BLOOD ORDERABLES Final R esult [facility] [address] [place] [address], * (ABNORMAL) Complete blood count (07/10/2024 6:29 AM EST) WBC 5.3 4.8 - 10.8 K/mcL LAB HEMETOLOGY METHOD 07/10/2024 9:47 AM [facility] RBC 3.20(L) 3.80 - 4.80 M/mcL LAB HEMETOLOGY METHOD 07/10/2024 9:47 AM [facility] Hemoglobin 8.9(L) 11.5 - 16.0 g/dL LAB HEMETOLOGY METHOD 07/10/2024 9:47 AM [facility] Hematocrit 32.0(L) 35.0 - 47.0 % LAB HEMETOLOGY METHOD 07/10/2024 9:47 AM [facility] MCV 101.6(H) 79.0 - 98.0 FL LAB HEMETOLOGY METHOD 07/10/2024 9:47 AM [facility] MCH 28.3 27.0 - 32.0 pcg LAB HEMETOLOGY METHOD 07/10/2024 9:47 AM [facility] MCHC 27.8(L) 32.0 - 37.0 g/dL LAB HEMETOLOGY METHOD 07/10/2024 9:47 AM [facility] RDW 20.3(H) 11.0 - 15.0 % LAB HEMETOLOGY METHOD 07/10/2024 9:47 AM [facility] Platelets 239 130 - 400 K/mcL LAB HEMETOLOGY METHOD 07/10/2024 9:47 AM [facility] MPV 10.2 7.0 - [...] Performing Organization Address City/[facility]/ZIP Co de Phone Number [facility] [address] [place] [address], [place] [phone] * Hemoglobin A1c (07/10/2024 6:29 AM EST) [...] Final R esult [facility] [address] [place] [address], [place] [phone] documented in this encounter Visit Diagnoses Diagnosis Unspecified dementia, unspecified severity, without behavioral disturbance, psychotic disturbance, mood disturbance, and anxiety (CMS/HCC V24, CMS/HCC V28) documented in this encounter Care Teams Fur Polisher Relationship Specialty Start Date End Date Amina Burciaga MD [address] [place] [address] PCP - General Hospitalist Medicine 09/11/24 documented as of this encounter
--- OUTSIDE RECORDS SUMMARY | 2025-07-05 05:48 | XMS_ITS | Encounter Summary ---
Author Organization [facility], Address [address] [place] [address] Phone Care Team Providers Care Intelligence Clerk Name Role Phone Dandre Chavez MD Primary Care Provider [phone] Encounter Details Date Type Department Care Team (Late st Contact Info) Description 02/09/2022 Documentation Only [facility], [address] [place] [address] Faina Villegas PA Social History Tobacco Use [...] on filedocumented in this encounter Care Teams Intelligence Clerk Relationship Specialty Start Date End Date Dandre Chavez MD [address] [place] [address], [address] [place], [place] PCP - General 07/07/19 documented as of this encounter
--- OUTSIDE RECORDS SUMMARY | 2025-07-05 05:48 | XMS_ITS | Encounter Summary ---
Author Organization [facility], Address [address] [place] [address] Phone Care Team Providers Care Administrative Clerk Name Role Phone Dandre Chavez MD Primary Care Provider [phone] Encounter Details Date Type Department Care Team (Late st Contact Info) Description 10/10/2021 Documentation Only [facility], [address] [place] [address] Faina Villegas PA Social History Tobacco Use [...] on filedocumented in this encounter Care Teams Administrative Clerk Relationship Specialty Start Date End Date Dandre Chavez MD [address] [place] [address], [address] [place], [place] PCP - General 07/07/19 documented as of this encounter
--- OUTSIDE RECORDS SUMMARY | 2025-07-05 05:48 | XMS_ITS | Encounter Summary ---
Author Organization [facility] Address [address] [place] [address] Care Team Providers Care Sales Contract Administrator Name Role Phone Amina Burciaga MD Primary Care Provider [phone] Encounter Details Date Type Department Care Team (Late st Contact Info) Description 08/10/2024 Lab Requisition [facility] - Main Lab 299 [facility] [place] [address] Hortencia Mcclellan MD [address] [id number] Type 2 diabetes mellitus without complications (CMS/HCC [...] documented in this encounter Care Teams Sales Contract Administrator Relationship Specialty Start Date End Date Amina Burciaga MD [address] [place] [address] PCP - General Hospitalist Medicine 09/11/24 documented as of this encounter
--- OUTSIDE RECORDS SUMMARY | 2025-07-05 05:48 | XMS_ITS | Clinical Summary ---
Author Organization [facility], Address [address] [place] [address] Phone Care Team Providers Care Inside Wireman Name Role Phone Dandre Chavez MD Primary Care Provider [phone] Allergies Active Allergy Reactions Criticality Noted Date [...] Exam 11/23/2019 Diabetes: Hemoglobin A1C 12/22/2024 025, 09/23/2024, 09/07/2024, Additional history exists Influenza Vaccine (#1) 2025 [...] PM EST) Hemoglobin A1C 6.9(H) (4.0-5.6) % [facility] Comment: MONITORING: In known diabetic patients, hemoglobin A1c targets should be discussed with health care provider. DIAGNOSTIC USE: The [place] Diabetes Association (ADA) and the World Health [...] Supplement 1 Testing performed or reported by [facility], a Service of [address] [address] Louis Fry MD, Employment Advisor [facility]# [id number] Blood specimen (specimen) Venous blood / Unknown 10/18/2022 2:34 PM EST 10/18/2022 2:35 PM EST us Faina LUCIANO LAB BLOOD ORDERABLES Final Res ult [facility] from Last 3 Months or Most Recently Relevant to Health Maintenance Insurance Medicare [facility] [place] [id number] Care Teams Inside Wireman Relationship Specialty Start Date End Date Dandre Chavez MD [address] [place] [address], [address] [place] PCP - General 07/07/19
--- OUTSIDE RECORDS SUMMARY | 2025-07-05 05:48 | XMS_ITS | Clinical Summary ---
Author Organization [facility] Address [address] [place] [address] Phone Care Team Providers Care Studio Couch Frame Builder Name Role Phone Dandre Chavez MD Primary Care Provider [phone] Miguel Enciso MD Unavailable [phone] Allergies Active Allergy Reactions Criticality Noted Date [...] Active ferrous sulfate 325 mg (65 mg [place] iron) EC tablet Take 325 mg by [...] on healthy food choices. Atherosclerosis of [place] co ronary artery of [place] heart with angina pectoris 10/28/2018 Assessment & [...] (04/14/2020 10:40 PM EDT): History of inferior LA in 2013 with [...] LAD. 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 She is aware that this is [...] will have this completed at [facility] due to having her stress test [...] this topic Medical Devices Implanted Type Area Catastrophe Claims Supervisor Device Identifier Shelf Expiration Date Model / Serial / Lot Sensor Pulmonary Artery Delivery System Cardiomems - [id number] Implanted:Qt y: 1 on 04/03/2022 by Miguel Enciso MD at [facility] Implantable Monitor Left: Arterial [employer] [id number] 12/15/2023 CM PATIENT SYSTEM / [id number] / Description:Pulmonary artery Procedures Procedure Name Priority Date/Time Associated Diagnosis Comments COMPREHENSIVE METABOLIC PANEL (CMP) Routine 04/18/2022 2:39 PM EDT Atherosclerosis of [place] coronary artery of [place] heart with angina pectoris Essential hypertension Ischemic cardiomyopathy PAD (peripheral artery disease) from Last 3 Months or Most Recently Relevant to Health Maintenance Results * (ABNORMAL) Comprehensive metabolic panel (04/18/2022 2:39 PM EDT) SODIUM 143 133 - 146 mmol/L [facility] POTASSIUM 4.5 3.3 - 5.1 mmol/L [facility] CHLORIDE 100 96 - 108 mmol/L [facility] CO2 34 21 - 35 mmol/L [facility] BUN 38(H) 6 - 19 mg/dL [facility] CREATININE 1.40 0.5 - 1.5 mg/dL [facility] GLUCOSE 163(H) 70 - 99 mg/dL [facility] ALBUMIN 4.0 3.9 - 4.8 g/dL [facility] TOTAL PROTEIN 7.5 6.5 - 8.0 g/dL [facility] CALCIUM 10.1 8.4 - 10.3 mg/dL [facility] ALKALINE PHOSPHATASE 94 39 - 117 U/L [facility] TOTAL BILIRUBIN 0.6 0.0 - 1.2 mg/dL [facility] AST 26 0 - 37 U/L [facility] ALT 12 0 - 40 U/L [facility] GLOBULIN 3.5 1 - 4.8 g/dL [facility] EGFR 39(L) >59 mL/min/1.7 3m2 [facility] Comment:Estimated glomerular filtration rate calculated using the CKD-EPI refit equation. ANION GAP 14 10 - 20 mmol/L [facility] Blood 04/18/2022 2:39 PM EDT 04/18/2022 2:42 PM EDT us Miguel Enciso MD LAB BLOOD BKR ORDERABLES Fi nal Result [facility] [address] [place] [address] from Last 3 Months or Most Recently Relevant to Health Maintenance Insurance MEDICARE PART A & B [place] [employer] PREFERRED HMO REPLACEMENT [facility] MEDICARE PART A & B [place] [employer] PREFERRED HMO REPLACEMENT [facility] [place] [id number] MEDICARE PART A & B [facility] MEDICARE PREFERRED HMO REPLACEMENT MEDICARE PART A & B [place] [employer]REFERRED HMO REPLACEMENT MEDICARE PART A & B [facility] MEDICARE PREFERRED HMO REPLACEMENT [facility] MEDICARE PART A & B [place] MEDICARE PREFERRED HMO REPLACEMENT MEDICARE PART A & B [place] [employer] PREFERRED HMO REPLACEMENT [facility] MEDICARE PART A & B [place] [employer]ICARE PREFERRED HMO REPLACEMENT [facility] MEDICARE PART A & B [place] MEDIC[place] PREFERRED HMO REPLACEMENT [facility] Care Teams Studio Couch Frame Builder Relationship Specialty Start Date End Date Dandre Chavez MD [address] [place] [address] PCP - General 09/05/17 Miguel Encsio MD [address] [place] [address] [email or web address] Cardiology 05/28/24 Additional Source Comments The information contained in this document represents components of the legal health record. It is not the complete legal health record.[facility]
--- OUTSIDE RECORDS SUMMARY | 2025-07-05 05:48 | XMS_ITS | Encounter Summary ---
Author Organization [facility], Address [address] [place] [address] Phone Care Team Providers Care Unemployment Benefits Claims Taker Name Role Phone Dandre Chavez MD Primary Care Provider [phone] Encounter Details Date Type Department Care Team (Late st Contact Info) Description 08/02/2022 Documentation Only [facility], [address] [place] [address] Faina Villegas PA Social History Tobacco Use [...] on filedocumented in this encounter Care Teams Unemployment Benefits Claims Taker Relationship Specialty Start Date End Date Dandre Chavez MD [address] [place] [address], [address] [place], [place] PCP - General 07/07/19 documented as of this encounter
--- OUTSIDE RECORDS SUMMARY | 2025-07-05 05:48 | XMS_ITS | Encounter Summary ---
Author Organization [facility], Address [address] [place] [address] Phone Care Team Providers Care Review Trainer Name Role Phone Dandre Chavez MD Primary Care Provider [phone] Encounter Details Date Type Department Care Team (Late st Contact Info) Description 12/31/2022 Documentation Only [facility], [address] [place] [address] Melissa Delgadillo [address] [place] [phone] Social History Tobacco Use Types Packs/Day Years [...] filedocumented in this encounter Care Teams Review Trainer Relationship Specialty Start Date End Date Dandre Chavez MD [address] [place] [address], [address] [place], [place] PCP - General 07/07/19 documented as of this encounter
--- OUTSIDE RECORDS SUMMARY | 2025-07-05 05:48 | XMS_ITS | Encounter Summary ---
Author Organization [facility], Address [address] [place] [address] Phone Care Team Providers Care Musical String Maker Name Role Phone Dandre Chavez MD Primary Care Provider [phone] Encounter Details Date Type Department Care Team (Late st Contact Info) Description 02/09/2022 Documentation Only [facility], [address] [place] [address] Faina Villegas PA Social History Tobacco Use [...] on filedocumented in this encounter Care Teams Musical String Maker Relationship Specialty Start Date End Date Dandre Chavez MD [address] [place] [address], [address] [place], [place] PCP - General 07/07/19 documented as of this encounter
--- OUTSIDE RECORDS SUMMARY | 2025-07-05 05:48 | XMS_ITS | Encounter Summary ---
Author Organization [facility], Address [address] [place] [address] Phone Care Team Providers Care Clinical Rn Liaison Name Role Phone Dandre Chavez MD Primary Care Provider [phone] Encounter Details Date Type Department Care Team (Late st Contact Info) Description 09/07/2022 Documentation Only [facility], [address] [place] [address] Faina Villegas PA Social History Tobacco Use [...] filedocumented in this encounter Care Teams Clinical Rn Liaison Relationship Specialty Start Date End Date Dandre Chavez MD [address] [place] [address], [address] [place], [place] PCP - General 07/07/19 documented as of this encounter
--- OUTSIDE RECORDS SUMMARY | 2025-07-05 05:48 | XMS_ITS | Encounter Summary ---
Author Organization [facility] Address [address] [place] [address] Care Team Providers Care Cdl Company Flatbed Driver Name Role Phone Amina Burciaga MD Primary Care Provider [phone] Encounter Details Date Type Department Care Team (Late st Contact Info) Description 07/13/2024 Lab Requisition [facility] - Main Lab 299 [facility] [place] [address] Hortencia Mcclellan MD [address] [id number] Type 2 diabetes mellitus without complications (CMS/HCC [...] mmol/L LAB CHEMISTRY METHOD 07/14/2024 9:03 AM [facility] Potassium 3.8 3.5 - 5.5 mmol/L LAB CHEMISTRY METHOD 07/14/2024 9:03 AM [facility] Chloride 105 96 - 110 mmol/L LAB CHEMISTRY METHOD 07/14/2024 9:03 AM [facility] CO2 28 21 - 32 mmol/L LAB CHEMISTRY METHOD 07/14/2024 9:03 AM [facility] Anion Gap 6 3 - 11 LAB CHEMISTRY METHOD 07/14/2024 9:03 AM [facility] Glucose 105(H) 70 - 100 mg/dL LAB CHEMISTRY METHOD 07/14/2024 9:03 AM [facility] BUN 70(H) 5 - 25 mg/dL LAB CHEMISTRY METHOD 07/14/2024 9:03 AM [facility] Creatinine 3.26(H) 0.50 - 1.10 mg/dL LAB CHEMISTRY METHOD 07/14/2024 9:03 AM [facility] eGFR 14(L) >=60 mL/min/1. 73m2 LAB CHEMISTRY METHOD 07/14/2024 9:03 AM [facility] Comment:Calculation based on the Chronic Kidney Disease Epidemiology Collaboration (CKD-EPI) equation refit without adjustment for race. BUN/Creatinine Ratio 21.5 LAB CHEMISTRY METHOD 07/14/2024 9:03 AM [facility] Calcium 8.6 8.5 - 10.5 mg/dL LAB CHEMISTRY METHOD 07/14/2024 9:03 AM [facility] Blood Venous blood specimen / Unknown Venipuncture / Unknown 07/14/2024 6:08 AM EST 07/14/2024 8:03 AM EST us Hortencia Mcclellan MD LAB BLOOD ORDERABLES Fin al Result [facility] [address] [place] [address], * (ABNORMAL) Complete blood count (07/14/2024 6:08 AM EST) [facility] WBC 5.3 4.8 - 10.8 K/mcL LAB HEMETOLOGY METHOD 07/14/2024 8:32 AM [facility] RBC 3.00(L) 3.80 - 4.80 M/mcL LAB HEMETOLOGY METHOD 07/14/2024 8:32 AM [facility] Hemoglobin 8.3(L) 11.5 - 16.0 g/dL LAB HEMETOLOGY METHOD 07/14/2024 8:32 AM [facility] Hematocrit 29.9(L) 35.0 - 47.0 % LAB HEMETOLOGY METHOD 07/14/2024 8:32 AM [facility] MCV 101.4(H) 79.0 - 98.0 FL LAB HEMETOLOGY METHOD 07/14/2024 8:32 AM [facility] MCH 28.1 27.0 - 32.0 pcg LAB HEMETOLOGY METHOD 07/14/2024 8:32 AM [facility] MCHC 27.8(L) 32.0 - 37.0 g/dL LAB HEMETOLOGY METHOD 07/14/2024 8:32 AM [facility] RDW 20.0(H) 11.0 - 15.0 % LAB HEMETOLOGY METHOD 07/14/2024 8:32 AM [facility] Platelets 198 130 - 400 K/mcL LAB HEMETOLOGY METHOD 07/14/2024 8:32 AM [facility] MPV 10.3 7.0 - 11.0 FL LAB HEMETOLOGY METHOD 07/14/2024 8:32 AM [facility] NRBC 0.0 <1.0 % LAB HEMETOLOGY METHOD 07/14/2024 8:32 AM EST [facility] NRBC Absolute 0.00 <0.10 K/mcL LAB HEMETOLOGY METHOD 07/14/2024 8:32 AM EST [facility] Blood Venous blood specimen / Unknown Venipuncture / Unknown 07/14/2024 6:08 AM EST 07/14/2024 8:03 AM EST us Hortencia Mcclellan MD LAB BLOOD ORDERABLES Fin al Result [facility] [address] [place] [address], documented in this encounter Visit Diagnoses Diagnosis Type 2 diabetes mellitus without complications (CMS/HCC V24, CMS/HCC V28) Heart failure, unspecified (CMS/HCC V24, CMS/HCC V28) Heart failure, unspecified documented in this encounter Care Teams Cdl Company Flatbed Driver Relationship Specialty Start Date End Date Amina Burciaga MD [address] [place] [address] PCP - General Hospitalist Medicine 09/11/24 documented as of this encounter
--- OUTSIDE RECORDS SUMMARY | 2025-07-05 05:48 | XMS_ITS | Encounter Summary ---
Author Organization [facility] Address [address] [place] [address] Care Team Providers Care Chair Pad Maker Name Role Phone Amina Burciaga MD Primary Care Provider [phone] Encounter Details Date Type Department Care Team (Latest Contact Info) Description 09/23/2024 Lab Requisition [facility] - Main Lab [address] [facility] [address] Amina Burciaga MD [address] [place] [address] Type 2 diabetes mellitus with [...] Resul t [facility] [address] [place] [address], * (ABNORMAL) Comprehensive metabolic panel (09/23/2024 8:20 AM EST) Pathologist [facility] Sodium 140 133 - 145 mmol/L [...] Resul t [facility] [address] [place] [address], * (ABNORMAL) Complete blood count (09/23/2024 8:20 AM EST) [facility] WBC 6.2 4.8 - 10.8 [...] Resul t [facility] [address] [place] [address], documented in this encounter Visit Diagnoses Diagnosis Type 2 diabetes mellitus with unspecified complications (CMS/HCC V24, CMS/HCC V28) Unspecified systolic (congestive) heart failure (CMS/HCC V24, CMS/HCC V28) documented in this encounter Care Teams Chair Pad Maker Relationship Specialty Start Date End Date Amina Burciaga MD [address] [place] [address] PCP - General Hospitalist Medicine 09/11/24 documented as of this encounter
--- OUTSIDE RECORDS SUMMARY | 2025-07-05 05:48 | XMS_ITS | Encounter Summary ---
Author Organization [facility], Address [address] [place] [address] Phone Care Team Providers Care Clerk Rating Name Role Phone Dandre Chavez MD Primary Care Provider [phone] Encounter Details Date Type Department Care Team (Late st Contact Info) Description 01/14/2023 Documentation Only [facility], [address] [place] [address] Melissa Delgadillo [address] [place] [phone] Social History Tobacco Use Types Packs/Day Years [...] on filedocumented in this encounter Care Teams Clerk Rating Relationship Specialty Start Date End Date Dandre Chavez MD [address] [place] [address], [address] [place], [place] PCP - General 07/07/19 documented as of this encounter
--- OUTSIDE RECORDS SUMMARY | 2025-07-05 05:48 | XMS_ITS | Clinical Summary ---
Author Organization [address] Address [address] [place] [address] Phone Care Team Providers Care As400 Programmer Analyst Name Role Phone Amina Burciaga MD Primary Care Provider [phone] Immunizations Immunization Administration Dates Next Due Pfizer [...] LAB CHEMISTRY METHOD 09/30/2024 1:[address] [facility] Total Protein 6.2 6.0 - [...] ORDERABLES Final Resu lt Performing Organization Address City/[facility]/ZIP Co de Phone Number [facility] [address] [place] [address], [place] [phone] * Hemoglobin A1c (09/23/2024 8:20 AM EST) [...] ORDERABLES Final Resul t Performing Organization Address City/[facility]/ZIP Co de Phone Number [facility] [address] [place] [address], [place] [phone] from Last 3 Months or Most Recently Relevant to Health Maintenance Insurance [place] Care Teams As400 Programmer Analyst Relationship Specialty Start Date End Date Amina Burciaga MD [address] [place] [address] PCP - General Hospitalist Medicine 09/11/24
--- OUTSIDE RECORDS SUMMARY | 2025-07-05 05:48 | XMS_ITS | Encounter Summary ---
Author Organization [facility] Address [address] [place], [place] [address] [place] [address] Phone Care Team Providers Care Commercial Real Estate Paralegal Name Role Phone Dandre Chavez MD Primary Care Provider [phone] Miguel Enciso MD Unavailable [phone] Encounter Details Date Type Department Care Team (Late st Contact Info) Description 07/01/2024 Procedure Pass [facility] [place] Referral Images [address] [facility] [address] [place] [address] Social History Tobacco Use Types Packs/Day Years [...] filedocumented in this encounter Care Teams Commercial Real Estate Paralegal Relationship Specialty Start Date End Date Dandre Chavez MD [address] [place] [address] PCP - General 09/05/17 Miguel Enciso MD [address] [place] [address] [email or web address] Cardiology 05/28/24 documented as of this encounter Additional Source Comments The information contained in this document represents components of the legal health record. It is not the complete legal health record.[facility]
--- OUTSIDE RECORDS SUMMARY | 2025-07-05 05:48 | XMS_ITS | Encounter Summary ---
Author Organization [facility] Address [address] [place] [address] Phone Care Team Providers Care Psychologist Personnel Name Role Phone Dandre Chavez MD Primary Care Provider [phone] Miguel Enciso MD Unavailable [phone] Encounter Details Date Type Department Care Team (Late st Contact Info) Description 09/18/2019 Ancillary Orders [facility] [address] 3[address] Floor [place], [place] [phone] Miguel Enciso MD [address] [place] [address], [address] [place], [place] [id number] [email or web address] (peripheral vascular disease) Social History Tobacco [...] disease documented in this encounter Care Teams Psychologist Personnel Relationship Specialty Start Date End Date Dandre Chavez MD [address] [place] [address] PCP - General 09/05/17 Miguel Enciso MD [address] [place] [address] [address] [place] [address] Cardiology 05/28/24 documented as of this encounter Additional Source Comments The information contained in this document represents components of the legal health record. It is not the complete legal health record.[facility]
--- OUTSIDE RECORDS SUMMARY | 2025-07-05 05:48 | XMS_ITS | Encounter Summary ---
Author Organization [facility] Address [address] [place] [address] Phone Care Team Providers Care Cupola Charger Name Role Phone Dandre Chavez MD Primary Care Provider [phone] Miguel Enciso MD Unavailable [phone] Encounter Details Date Type Department Care Team (Late st Contact Info) Description 12/21/2022 Procedure Pass [facility] [address] [id number] Social History Tobacco Use Types Packs/Day Years [...] on filedocumented in this encounter Care Teams Cupola Charger Relationship Specialty Start Date End Date Dandre Chavez MD [address] [place] [phone] PCP - General 09/05/17 Miguel Enciso MD [address] [facility] [place], [place] [phone] Cardiology 05/28/24 documented as of this encounter Additional Source Comments The information contained in this document represents components of the legal health record. It is not the complete legal health record.[facility]
--- OUTSIDE RECORDS SUMMARY | 2025-07-05 05:48 | XMS_ITS | Encounter Summary ---
Author Organization [facility] Address [address] [place] [address] Care Team Providers Care Oil Burner Journeyman Name Role Phone Amina Burciaga MD Primary Care Provider [phone] Encounter Details Date Type Department Care Team (Latest Contact Info) Description 09/11/2024 Lab Requisition [facility] - Main Lab 299 [facility] [place] [address] Amina Burciaga MD [address] [place] [address] Other buttermilk drier operator (current) drug therapy; Type 2 diabetes [...] COUNT Routine 09/11/2024 9:47 AM EST Other buttermilk drier operator (current) drug therapy Type 2 diabetes mellitus without complications (CMS/HCC) Heart failure, unspecified (CMS/HCC) MAGNESIUM Routine 09/11/2024 9:47 AM EST Other buttermilk drier operator (current) drug therapy Type 2 diabetes mellitus without complications (CMS/HCC) Heart failure, unspecified (CMS/HCC) BASIC METABOLIC PANEL Routine 09/11/2024 9:47 AM EST Other skilled nursing (current) drug therapy Type 2 diabetes mellitus without complications (CMS/HCC) Heart failure, unspecified (CMS/HCC) documented in this encounter Results * Magnesium (09/11/2024 9:47 AM EST) [facility] Magnesium 2.1 1.9 - 2.6 mg/dL LAB CHEMISTRY METHOD 09/11/2024 12:45 PM [facility] Blood Venous blood specimen / Unknown Venipuncture / Unknown 09/11/2024 9:47 AM EST 09/11/2024 11:29 AM EST Amina Burciaga MD LAB BLOOD ORDERABLES Final Resul t [facility] [address] [place] [address], * (ABNORMAL) Basic metabolic panel (09/11/2024 9:47 AM EST) [facility] Sodium 137 133 - 145 mmol/L [...] t [facility] [address] [place] [address], * (ABNORMAL) Complete blood count (09/11/2024 9:47 [...] t [facility] [address] [place] [address], documented in this encounter Visit Diagnoses Diagnosis Other buttermilk drier operator (current) drug therapy Type 2 diabetes mellitus without complications (CMS/HCC V24, CMS/HCC V28) Heart failure, unspecified (CMS/HCC V24, CMS/HCC V28) Heart failure, unspecified documented in this encounter Care Teams Oil Burner Journeyman Relationship Specialty Start Date End Date Amina Burciaga MD [address] [place] [address] PCP - General Hospitalist Medicine 09/11/24 documented as of this encounter
--- OUTSIDE RECORDS SUMMARY | 2025-07-05 05:48 | XMS_ITS | Encounter Summary ---
Author Organization [facility], Address [address] [place] [address] Phone Care Team Providers Care Embroidery Supervisor Name Role Phone Dandre Chavez MD Primary Care Provider [phone] Encounter Details Date Type Department Care Team (Late st Contact Info) Description 01/08/2025 Documentation Only [facility], [address] [place] [address] Radha Chatterjee [place] [address] [place] [phone] Social History Tobacco Use Types Packs/Day Years [...] on filedocumented in this encounter Care Teams Embroidery Supervisor Relationship Specialty Start Date End Date Dandre Chavez MD [address] [place] [address], [address] [place], [place] PCP - General 07/07/19 documented as of this encounter
--- OUTSIDE RECORDS SUMMARY | 2025-07-05 05:48 | XMS_ITS | Encounter Summary ---
Author Organization [facility] Address [address] [place] [address] Care Team Providers Care Needle Maker Name Role Phone Amina Burciaga MD Primary Care Provider [phone] Encounter Details Date Type Department Care Team (Latest Contact Info) Description 09/07/2024 Lab Requisition [facility] - Main Lab 299 [facility] [employer] [address] Amina Burciaga MD [address] [place] [address] Heart failure, unspecified (CMS/HCC V24, [...] unspecified Type 2 diabetes mellitus without complications ([facility]) documented in this encounter Results * Hemoglobin A1c (09/07/2024 6:24 AM EST) Pathologist [facility] Hemoglobin A1C 5.1 <6.5 % LAB CHEMISTRY METHOD 09/07/2024 11:11 AM EST [facility] Mean Bld Glu Estim. 100 mg/dL LAB CHEMISTRY METHOD 09/07/2024 11:11 AM [facility] Blood Venous blood specimen / Unknown Venipuncture / Unknown 09/07/2024 6:24 AM EST 09/07/2024 8:12 AM EST Amina Burciaga MD LAB BLOOD ORDERABLES Final Resul t [facility] [address] [place] [address], * (ABNORMAL) Comprehensive metabolic panel (09/07/2024 6:24 AM EST) [facility] Sodium 140 133 - 145 mmol/L LAB CHEMISTRY METHOD 09/07/2024 9:18 AM [facility] Potassium 3.8 3.5 - 5.5 mmol/L LAB CHEMISTRY METHOD 09/07/2024 9:18 AM [facility] Chloride 106 96 - 110 mmol/L LAB CHEMISTRY METHOD 09/07/2024 9:18 AM [facility] CO2 28 21 - 32 mmol/L LAB CHEMISTRY METHOD 09/07/2024 9:18 AM [facility] Anion Gap 6 3 - 11 LAB CHEMISTRY METHOD 09/07/2024 9:18 AM [facility] Glucose 61(L) 70 - 100 mg/dL LAB CHEMISTRY METHOD 09/07/2024 9:18 AM [facility] BUN 59(H) 5 - 25 mg/dL LAB CHEMISTRY METHOD 09/07/2024 9:18 AM [facility] Creatinine 3.13(H) 0.50 - 1.10 mg/dL LAB CHEMISTRY METHOD 09/07/2024 9:18 AM [facility] eGFR 15(L) >=60 mL/min/1. 73m2 LAB CHEMISTRY METHOD 09/07/2024 9:18 AM [facility] Comment:Calculation based on the Chronic Kidney Disease Epidemiology Collaboration (CKD-EPI) equation refit without adjustment for race. BUN/Creatinine Ratio 18.8 LAB CHEMISTRY METHOD 09/07/2024 9:18 AM [facility] Calcium 9.0 8.5 - 10.5 mg/dL LAB CHEMISTRY METHOD 09/07/2024 9:18 AM [facility] AST (SGOT) 17 10 - 42 unit/L LAB CHEMISTRY METHOD 09/07/2024 9:18 AM [facility] ALT (SGPT) 20 10 - 60 unit/L LAB CHEMISTRY METHOD 09/07/2024 9:18 AM [facility] Alkaline Phosphatase 60 42 - 121 unit/L LAB CHEMISTRY METHOD 09/07/2024 9:18 AM [facility] Total Protein 6.9 6.0 - 8.0 g/dL LAB CHEMISTRY METHOD 09/07/2024 9:18 AM [facility] Albumin 3.0(L) 3.2 - 5.0 g/dL LAB CHEMISTRY METHOD 09/07/2024 9:18 AM [facility] Total Bilirubin 0.5 0.0 - 1.4 mg/dL LAB CHEMISTRY METHOD 09/07/2024 9:18 AM [facility] Blood Venous blood specimen / Unknown Venipuncture / Unknown 09/07/2024 6:24 AM EST 09/07/2024 8:12 AM EST us Amina Burciaga MD LAB BLOOD ORDERABLES Final Resul t [facility] [address] [place] [address], * (ABNORMAL) Complete blood count (09/07/2024 6:24 AM EST) [facility] Signature WBC 4.7(L) 4.8 - 10.8 K/mcL LAB HEMETOLOGY METHOD 09/07/2024 8:53 AM [facility] RBC 3.00(L) 3.80 - 4.80 M/mcL LAB HEMETOLOGY METHOD 09/07/2024 8:53 AM [facility] Hemoglobin 8.9(L) 11.5 - 16.0 g/dL LAB HEMETOLOGY METHOD 09/07/2024 8:53 AM [facility] Hematocrit 30.6(L) 35.0 - 47.0 % LAB HEMETOLOGY METHOD 09/07/2024 8:53 AM [facility] MCV 101.7(H) 79.0 - 98.0 FL LAB HEMETOLOGY METHOD 09/07/2024 8:53 AM [facility] MCH 29.6 27.0 - 32.0 pcg LAB HEMETOLOGY METHOD 09/07/2024 8:53 AM [facility] MCHC 29.1(L) 32.0 - 37.0 g/dL LAB HEMETOLOGY METHOD 09/07/2024 8:53 AM [facility] RDW 20.1(H) 11.0 - 15.0 % LAB HEMETOLOGY METHOD 09/07/2024 8:53 AM [facility] Platelets 196 130 - 400 K/mcL LAB HEMETOLOGY METHOD 09/07/2024 8:53 AM [facility] MPV 10.0 7.0 - 11.0 FL LAB HEMETOLOGY METHOD 09/07/2024 8:53 AM [facility] NRBC 0.0 <1.0 % LAB HEMETOLOGY METHOD 09/07/2024 8:53 AM EST [facility] NRBC Absolute 0.00 <0.10 K/mcL LAB HEMETOLOGY METHOD 09/07/2024 8:53 AM EST [facility] Blood Venous blood specimen / Unknown Venipuncture / Unknown 09/07/2024 6:24 AM EST 09/07/2024 8:12 AM EST us Amina Burciaga MD LAB BLOOD ORDERABLES Final Resul t [facility] [address] [place] [address], documented in this encounter Visit Diagnoses Diagnosis Heart failure, unspecified (CMS/HCC V24, CMS/HCC V28) Heart failure, unspecified Chronic kidney disease, unspecified Type 2 diabetes mellitus without complications (CMS/HCC V24, CMS/HCC V28) documented in this encounter Care Teams Needle Maker Relationship Specialty Start Date End Date Amina Burciaga MD [address] [place] [address] PCP - General Hospitalist Medicine 09/11/24 documented as of this encounter
--- OUTSIDE RECORDS SUMMARY | 2025-07-05 05:48 | XMS_ITS | Encounter Summary ---
Author Organization [facility] Address [address] [place] [address] Phone Care Team Providers Care Tire Shop Manager Name Role Phone Dandre Chavez MD Primary Care Provider [phone] Miguel Enciso MD Unavailable [phone] Encounter Details Date Type Department Care Team (Late st Contact Info) Description 12/20/2022 Procedure Pass Non-Invasive Cardiology [address] [place], [place] [phone] Social History Tobacco Use Types Packs/Day Years [...] on filedocumented in this encounter Care Teams Tire Shop Manager Relationship Specialty Start Date End Date Dandre Chavez MD [address] [place] [address] [phone] PCP - General 09/05/17 Miguel Enciso MD [address] [place] [address], [address] [place], [place] [phone] Cardiology 05/28/24 documented as of this encounter Additional Source Comments The information contained in this document represents components of the legal health record. It is not the complete legal health record.[facility]
--- OUTSIDE RECORDS SUMMARY | 2025-07-05 05:48 | XMS_ITS | Encounter Summary ---
Author Organization [facility] Address [address] [place] [address] Phone Care Team Providers Care Ward Helper Name Role Phone Dandre Chavez MD Primary Care Provider [phone] Miguel Enciso MD Unavailable [phone] Encounter Details Date Type Department Care Team (Late st Contact Info) Description 08/18/2021 Procedure Pass Echo Lab [address] [phone] Social History Tobacco Use Types Packs/Day Years [...] on filedocumented in this encounter Care Teams Ward Helper Relationship Specialty Start Date End Date Dandre Chavez MD [address] [place] [phone] PCP - General 09/05/17 Miguel Enciso MD [address] [place] [address], [address] [place], [place] [phone] Cardiology 05/28/24 documented as of this encounter Additional Source Comments The information contained in this document represents components of the legal health record. It is not the complete legal health record.[facility]
--- OUTSIDE RECORDS SUMMARY | 2025-07-05 05:48 | XMS_ITS | Encounter Summary ---
Author Organization [facility] Address [address] [place] [address] Care Team Providers Care Barrow Worker Helper Name Role Phone Amina Burciaga MD Primary Care Provider [phone] Encounter Details Date Type Department Care Team (Late st Contact Info) Description 07/27/2024 Lab Requisition [facility] - Main Lab 299 [facility] [place] [address] Hortencia Mcclellan MD [address] [phone] Type 2 diabetes mellitus without complications (CMS/HCC [...] mmol/L LAB CHEMISTRY METHOD 07/28/2024 8:47 AM [facility] Potassium 4.3 3.5 - 5.5 mmol/L LAB CHEMISTRY METHOD 07/28/2024 8:47 AM [facility] Chloride 107 96 - 110 mmol/L LAB CHEMISTRY METHOD 07/28/2024 8:47 AM [facility] CO2 25 21 - 32 mmol/L LAB CHEMISTRY METHOD 07/28/2024 8:47 AM [facility] Anion Gap 10 3 - 11 LAB CHEMISTRY METHOD 07/28/2024 8:47 AM [facility] Glucose 49(L) 70 - 100 mg/dL LAB CHEMISTRY METHOD 07/28/2024 8:47 AM [facility] BUN 45(H) 5 - 25 mg/dL LAB CHEMISTRY METHOD 07/28/2024 8:47 AM [facility] Creatinine 2.36(H) 0.50 - 1.10 mg/dL LAB CHEMISTRY METHOD 07/28/2024 8:47 AM [facility] eGFR 21(L) >=60 mL/min/1. 73m2 LAB CHEMISTRY METHOD 07/28/2024 8:47 AM [facility] Comment:Calculation based on the Chronic Kidney Disease Epidemiology Collaboration (CKD-EPI) equation refit without adjustment for race. BUN/Creatinine Ratio 19.1 LAB CHEMISTRY METHOD 07/28/2024 8:47 AM [facility] Calcium 9.2 8.5 - 10.5 mg/dL LAB CHEMISTRY METHOD 07/28/2024 8:47 AM [facility] Blood Venous blood specimen / Unknown Venipuncture / Unknown 07/28/2024 5:41 AM EST 07/28/2024 8:02 AM EST us Hortencia Mcclellan MD LAB BLOOD ORDERABLES Fin al Result [facility] [address] [place] [address], * (ABNORMAL) Complete blood count (07/28/2024 5:41 AM EST) [facility] WBC 4.1(L) 4.8 - 10.8 K/mcL LAB HEMETOLOGY METHOD 07/28/2024 8:20 AM [facility] RBC 3.00(L) 3.80 - 4.80 M/mcL LAB HEMETOLOGY METHOD 07/28/2024 8:20 AM [facility] Hemoglobin 8.6(L) 11.5 - 16.0 g/dL LAB HEMETOLOGY METHOD 07/28/2024 8:20 AM [facility] Hematocrit 29.9(L) 35.0 - 47.0 % LAB HEMETOLOGY METHOD 07/28/2024 8:20 AM [facility] MCV 99.7(H) 79.0 - 98.0 FL LAB HEMETOLOGY METHOD 07/28/2024 8:20 AM [facility] MCH 28.7 27.0 - 32.0 pcg LAB HEMETOLOGY METHOD 07/28/2024 8:20 AM [facility] MCHC 28.8(L) 32.0 - 37.0 g/dL LAB HEMETOLOGY METHOD 07/28/2024 8:20 AM [facility] RDW 19.6(H) 11.0 - 15.0 % LAB HEMETOLOGY METHOD 07/28/2024 8:20 AM [facility] Platelets 162 130 - 400 K/mcL LAB HEMETOLOGY METHOD 07/28/2024 8:20 AM [facility] MPV 10.5 7.0 - 11.0 FL LAB HEMETOLOGY METHOD 07/28/2024 8:20 AM [facility] NRBC 0.0 <1.0 % LAB HEMETOLOGY METHOD 07/28/2024 8:20 AM EST [facility] NRBC Absolute 0.00 <0.10 K/mcL LAB HEMETOLOGY METHOD 07/28/2024 8:20 AM EST [facility] Blood Venous blood specimen / Unknown Venipuncture / Unknown 07/28/2024 5:41 AM EST 07/28/2024 8:02 AM EST us Hortencia Mcclellan MD LAB BLOOD ORDERABLES Fin al Result [facility] [address] [place] [address], documented in this encounter Visit Diagnoses Diagnosis Type 2 diabetes mellitus without complications (CMS/HCC V24, CMS/HCC V28) Heart failure, unspecified (CMS/HCC V24, CMS/HCC V28) Heart failure, unspecified documented in this encounter Care Teams Barrow Worker Helper Relationship Specialty Start Date End Date Amina Burciaga MD [address] [place] [address] PCP - General Hospitalist Medicine 09/11/24 documented as of this encounter
--- OUTSIDE RECORDS SUMMARY | 2025-07-05 05:48 | XMS_ITS | Encounter Summary ---
Author Organization [facility] Address [address] [place] [address] Care Team Providers Care Drapery Hanger Name Role Phone Amina Burciaga MD Primary Care Provider [phone] Encounter Details Date Type Department Care Team (Late st Contact Info) Description 07/20/2024 Lab Requisition [facility] - Main Lab 299 [facility] [place] [address] Hortencia Mcclellan MD 819 [facility] 1 [place], [place] [phone] Type 2 diabetes mellitus without complications (CMS/HCC [...] Result [facility] [address] [place] [address], * (ABNORMAL) Complete blood count (07/21/2024 5:53 AM EST) [facility] WBC 5.0 4.8 - 10.8 K/mcL LAB [...] LAB HEMETOLOGY METHOD 07/21/2024 8:26 AM EST [facility] NRBC Absolute 0.00 <0.10 K/mcL LAB HEMETOLOGY METHOD 07/21/2024 8:26 AM EST [facility] Blood Venous blood specimen / Unknown Venipuncture / Unknown 07/21/2024 5:53 AM EST 07/21/2024 7:55 AM EST us Hortencia Mcclellan MD LAB BLOOD ORDERABLES Fin al Result [facility] [address] [place] [address], documented in this encounter Visit Diagnoses Diagnosis Type 2 diabetes mellitus without complications (CMS/HCC V24, CMS/HCC V28) Heart failure, unspecified (CMS/HCC V24, CMS/HCC V28) Heart failure, unspecified documented in this encounter Care Teams Drapery Hanger Relationship Specialty Start Date End Date Amina Burciaga MD [address] [place] [address] PCP - General Hospitalist Medicine 09/11/24 documented as of this encounter
--- OUTSIDE RECORDS SUMMARY | 2025-07-05 05:48 | XMS_ITS | Encounter Summary ---
Author Organization [facility] Address [address] [place] [address] Care Team Providers Care Electrical And Instrument Technician Name Role Phone Amina Burciaga MD Primary Care Provider [phone] Encounter Details Date Type Department Care Team (Late st Contact Info) Description 07/23/2024 Lab Requisition [facility] - Main Lab [address] [place] [address] Hortencia Mcclellan MD [address] [id number] Chronic kidney disease, unspecified; Type 2 diabetes [...] mmol/L LAB CHEMISTRY METHOD 07/23/2024 9:13 AM [facility] CO2 27 21 - 32 mmol/L LAB CHEMISTRY METHOD 07/23/2024 9:13 AM [facility] Anion Gap 6 3 - 11 LAB CHEMISTRY METHOD 07/23/2024 9:13 AM [facility] Glucose 64(L) 70 - 100 mg/dL LAB CHEMISTRY METHOD 07/23/2024 9:13 AM [facility] BUN 62(H) 5 - 25 mg/dL LAB CHEMISTRY METHOD 07/23/2024 9:13 AM [facility] Creatinine 2.70(H) 0.50 - 1.10 mg/dL LAB CHEMISTRY METHOD 07/23/2024 9:13 AM [facility] eGFR 18(L) >=60 mL/min/1. 73m2 LAB CHEMISTRY METHOD 07/23/2024 9:13 AM [facility] Comment:Calculation based on the Chronic Kidney Disease Epidemiology Collaboration (CKD-EPI) equation refit without adjustment for race. BUN/Creatinine Ratio 23.0 LAB CHEMISTRY METHOD 07/23/2024 9:13 AM [facility] Calcium 9.2 8.5 - 10.5 mg/dL LAB CHEMISTRY METHOD 07/23/2024 9:13 AM [facility] Blood Venous blood specimen / Unknown Venipuncture / Unknown 07/23/2024 5:52 AM EST 07/23/2024 8:17 AM EST us Hortencia Mcclellan MD LAB BLOOD ORDERABLES Fin al Result [facility] [address] [place] [address], documented in this encounter Visit Diagnoses Diagnosis Chronic kidney disease, unspecified Type 2 diabetes mellitus without complications (CMS/HCC V24, CMS/HCC V28) documented in this encounter Care Teams Electrical And Instrument Technician Relationship Specialty Start Date End Date Amina Burciaga MD [address] [place] [phone] PCP - General Hospitalist Medicine 09/11/24 documented as of this encounter
[2025-07-05 06:25] LABS: Hematocrit 28.8 % (37.0-47.0); Hemoglobin 8.3 g/dl (12.0-16.0); Imm Gran Abs Auto 0.02 X10*3/uL (0.00-0.03); Imm Gran Pct Auto 0.2 % (0.0-0.4); Lymphocytes Absolute Auto 0.5 X10*3/uL (1.2-4.9); Mean Corpuscular HGB Conc 28.8 g/dl (31.0-35.0); Mean Corpuscular Hemoglobin 28.7 pg (27.0-33.0); Mean Corpuscular Volume 99.7 fL (80.0-98.0); NRBC Abs Auto 0.000 X10*3/uL (0.0-0.012); NRBC Pct Auto 0.0 /100WBC (0.0-0.2); Platelet Count 242 X10*3/uL (160-400); Red Blood Count 2.89 X10*6/uL (4.20-5.50); White Blood Count 8.4 X10*3/uL (4.8-10.8)
[2025-07-05 06:31] LABS: Appearance Urine Turbid; Glucose Urine UA 250 mg/dL (Negative); PH 6.0 (5.0-9.0); Specific Gravity - Urine 1.010 (1.005-1.025); UMIC TRIGGER UACC YES
[2025-07-05 06:43] LABS: UACC Culture Trigger YES
[2025-07-05 06:45] LABS: Anion Gap 14 (12-20); Blood Urea Nitrogen 85 mg/dL (9-16); Calcium 9.2 mg/dL (8.4-10.2); Carbon Dioxide 26 mmol/L (22-29); Chloride 104 mmol/L (96-108); Estimated Glomerular Filt Rate 16; Potassium 3.6 mmol/L (3.3-5.1); Sodium 140 mmol/L (135-145)
== END 2025-07-05 05:46 | disposition home or self-care (01) ==
LOC: HO.MMNH2L 05:45
PROVIDERS: Visit Provider Physician Assistant Medical
DX: I50.33 Acute on chronic diastolic (congestive) heart failure (principal); N18.4 Chronic kidney disease, stage 4 (severe)
CPT/HCPCS: 36415; 80048; 81001; 85025; 87086; 87088; 87186

== ENCOUNTER 2025-07-19 06:51 | Outpatient (REF) | payer MEDICARE, SELFPAY ==
--- OUTSIDE RECORDS SUMMARY | 2018-12-31 04:05 | XMS_ITS | Continuity of Care Document ---
[facility] Organization [facility] Address [address] [address] Phone Care Team Providers Care Printer Helper Name Role Phone Brodie Hinds DO Unavailable Unavailable Advance Directives Directive Yes / No Effective Date File Name No Information Encounters Encounter Description Practice Location Reason(s) For Visit Diagnoses Date Provider [facility], [address], [id number], [place] tel:[phone] [address] [place] [address] No Information 2018 Guzman Calloway. [address] [place] [address], [id number], [place]. tel:[phone] Family History Family Member Type Diagnosis Age At Onset No Information Payers Payer name Insurance type Covered alliance party ID Authoriza tion(s) No Information Social History Type Description Quantity Date Captured Comments Sex Female Smoking Status No Information Chief Complaint And Reason For Visit No Information History Of Present Illness Encounter Date Complaint History Of Prese nt Illness No Information Instructions Date Instruction Additional Infor mation No Information Assessments Type Assessment Date No Information
--- OUTSIDE RECORDS SUMMARY | 2018-12-31 04:05 | XMS_ITS | Continuity of Care Document ---
Author Organization [facility] Address [address] [address] Phone Care Team Providers Care Network Technician Name Role Phone Brodie Hinds DO Unavailable Unavailable Advance Directives Directive Yes / No Effective Date File Name No Information Encounters Encounter Description Practice Location Reason(s) For Visit Diagnoses Date Provider [facility], [address], [id number], [place] tel:[phone] [address] [place] [address] No Information 2018 Guzman Calloway. [address] [place] [address], [id number], [place]. tel:[phone] Family History Family Member Type Diagnosis Age At Onset No Information Payers Payer name Insurance type Covered democrat ID Authoriza tion(s) No Information Social History Type Description Quantity Date Captured Comments Sex Female Smoking Status No Information Chief Complaint And Reason For Visit No Information History Of Present Illness Encounter Date Complaint History Of Prese nt Illness No Information Instructions Date Instruction Additional Infor mation No Information Assessments Type Assessment Date No Information
--- OUTSIDE RECORDS SUMMARY | 2018-12-31 04:05 | XMS_ITS | Continuity of Care Document ---
Author Organization [facility] Address [address] [address] Phone Care Team Providers Care Line Fisher Name Role Phone Brodie Hinds DO Unavailable Unavailable Advance Directives Directive Yes / No Effective Date File Name No Information Encounters Encounter Description Practice Location Reason(s) For Visit Diagnoses Date Provider [facility], [address], [id number], [place] tel:[phone] [address] [place] [address] No Information 2018 Guzman Calloway. [address] [place] [address], [id number], [place]. tel:[phone] Family History Family Member Type Diagnosis Age At Onset No Information Payers Payer name Insurance type Covered republican ID Authoriza tion(s) No Information Social History Type Description Quantity Date Captured Comments Sex Female Smoking Status No Information Chief Complaint And Reason For Visit No Information History Of Present Illness Encounter Date Complaint History Of Prese nt Illness No Information Instructions Date Instruction Additional Infor mation No Information Assessments Type Assessment Date No Information
--- OUTSIDE RECORDS SUMMARY | 2018-12-31 04:05 | XMS_ITS | Continuity of Care Document ---
Author Organization [facility] Address [address] [address] Phone Care Team Providers Care Travertine Installer Name Role Phone Brodie Hinds DO Unavailable Unavailable Advance Directives Directive Yes / No Effective Date File Name No Information Encounters Encounter Description Practice Location Reason(s) For Visit Diagnoses Date Provider [facility], [address], [id number], [place] tel:[phone] [address] [place] [address] No Information 2018 Guzman Calloway. [address] [place] [address], [id number], [place]. tel:[phone] Family History Family Member Type Diagnosis Age At Onset No Information Payers Payer name Insurance type Covered constitution party ID Authoriza tion(s) No Information Social History Type Description Quantity Date Captured Comments Sex Female Smoking Status No Information Chief Complaint And Reason For Visit No Information History Of Present Illness Encounter Date Complaint History Of Prese nt Illness No Information Instructions Date Instruction Additional Infor mation No Information Assessments Type Assessment Date No Information
[2025-07-19 05:43] LABS: MANUAL DIFF FLAG NO
[2025-07-19 06:05] LABS: Hematocrit 27.8 % (37.0-47.0); Hemoglobin 8.4 g/dl (12.0-16.0); Imm Gran Abs Auto 0.03 X10*3/uL (0.00-0.03); Imm Gran Pct Auto 0.3 % (0.0-0.4); Lymphocytes Absolute Auto 0.3 X10*3/uL (1.2-4.9); Mean Corpuscular HGB Conc 30.2 g/dl (31.0-35.0); Mean Corpuscular Hemoglobin 29.1 pg (27.0-33.0); Mean Corpuscular Volume 96.2 fL (80.0-98.0); NRBC Abs Auto 0.000 X10*3/uL (0.0-0.012); NRBC Pct Auto 0.0 /100WBC (0.0-0.2); Platelet Count 175 X10*3/uL (160-400); Red Blood Count 2.89 X10*6/uL (4.20-5.50); White Blood Count 10.3 X10*3/uL (4.8-10.8)
[2025-07-19 06:18] LABS: Anion Gap 19 (12-20); Blood Urea Nitrogen 79 mg/dL (9-16); Calcium 9.0 mg/dL (8.4-10.2); Carbon Dioxide 25 mmol/L (22-29); Chloride 100 mmol/L (96-108); Estimated Glomerular Filt Rate 13; Potassium 3.3 mmol/L (3.3-5.1); Sodium 141 mmol/L (135-145)
--- OUTSIDE RECORDS SUMMARY | 2025-07-19 06:55 | XMS_ITS | Clinical Summary ---
Author Organization [facility] Address [address] [place] [address] Care Team Providers Care Wireworker Name Role Phone Dandre Chavez MD Primary Care Provider [phone]- [phone] Allergies Active Allergy Reactions Criticality Noted Date [...] age to complete this topic Care Teams Wireworker Relationship Specialty Start Date End Date Dandre Chavez MD [address] [place] [address] [phone] PCP - General Internal Medicine 11/06/22
== END 2025-07-19 06:52 | disposition home or self-care (01) ==
LOC: HO.MMNH2L 06:51
PROVIDERS: Visit Provider Physician Assistant Medical
DX: I50.33 Acute on chronic diastolic (congestive) heart failure (principal); N18.4 Chronic kidney disease, stage 4 (severe)
CPT/HCPCS: 36415; 80048; 85025

== ENCOUNTER 2025-08-02 08:39 | Outpatient (REF) | payer MEDICARE, SELFPAY ==
--- OUTSIDE RECORDS SUMMARY | 2018-12-31 04:05 | XMS_ITS | Continuity of Care Document ---
Author Organization [facility] Address [address] [address] Phone Care Team Providers Care Office Machines Teacher Name Role Phone Brodie Hinds DO Unavailable Unavailable Advance Directives Directive Yes / No Effective Date File Name No Information Encounters Encounter Description Practice Location Reason(s) For Visit Diagnoses Date Provider [facility], [address], [id number], [place] tel:[phone] [address] [place] [address] No Information 2018 Guzman Calloway. [address] [place] [address], [id number], [place]. tel:[phone] Family History Family Member Type Diagnosis Age At Onset No Information Payers Payer name Insurance type Covered green party ID Authoriza tion(s) No Information Social History Type Description Quantity Date Captured Comments Sex Female Smoking Status No Information Chief Complaint And Reason For Visit No Information History Of Present Illness Encounter Date Complaint History Of Prese nt Illness No Information Instructions Date Instruction Additional Infor mation No Information Assessments Type Assessment Date No Information
[2025-08-02 07:45] LABS: MANUAL DIFF FLAG NO
[2025-08-02 08:03] LABS: Hematocrit 31.4 % (37.0-47.0); Hemoglobin 9.2 g/dl (12.0-16.0); Imm Gran Abs Auto 0.03 X10*3/uL (0.00-0.03); Imm Gran Pct Auto 0.6 % (0.0-0.4); Lymphocytes Absolute Auto 0.7 X10*3/uL (1.2-4.9); Mean Corpuscular HGB Conc 29.3 g/dl (31.0-35.0); Mean Corpuscular Hemoglobin 29.3 pg (27.0-33.0); Mean Corpuscular Volume 100.0 fL (80.0-98.0); NRBC Abs Auto 0.000 X10*3/uL (0.0-0.012); NRBC Pct Auto 0.0 /100WBC (0.0-0.2); Platelet Count 182 X10*3/uL (160-400); Red Blood Count 3.14 X10*6/uL (4.20-5.50); White Blood Count 5.4 X10*3/uL (4.8-10.8)
[2025-08-02 08:43] LABS: Anion Gap 16 (12-20); Blood Urea Nitrogen 61 mg/dL (9-16); Calcium 8.7 mg/dL (8.4-10.2); Carbon Dioxide 26 mmol/L (22-29); Chloride 105 mmol/L (96-108); Estimated Glomerular Filt Rate 18; Potassium 3.2 mmol/L (3.3-5.1); Sodium 144 mmol/L (135-145)
[2025-08-02 08:47] LABS: Thyroid Stimulating Hormone 0.74 uIU/mL (0.32-4.0)
--- OUTSIDE RECORDS SUMMARY | 2025-08-02 09:13 | XMS_ITS | Encounter Summary ---
Author Organization [facility] Address [address] [place], [place] [address] [place] [address] Phone Care Team Providers Care Industrial Green Systems Designer Name Role Phone Dandre Chavez MD Primary Care Provider +1- [phone] Miguel Enciso MD Unavailable [phone] Encounter Details Date Type Department Care Team (Late st Contact Info) Description 07/01/2024 Procedure Pass [facility] [place] Referral Images [address] [facility] [address] [place] [address] Social History Tobacco Use Types Packs/Day Years [...] on filedocumented in this encounter Care Teams Industrial Green Systems Designer Relationship Specialty Start Date End Date Dandre Chavez MD [address] [place] [address] PCP - General 09/05/17 Miguel Enciso MD [address] [place] [address] [email or web address] Cardiology 05/28/24 documented as of this encounter Additional Source Comments The information contained in this document represents components of the legal health record. It is not the complete legal health record.[facility]
--- OUTSIDE RECORDS SUMMARY | 2025-08-02 09:13 | XMS_ITS | Clinical Summary ---
Author Organization [facility] Address [address] [place] [address] Phone Care Team Providers Care At Risk Specialist Name Role Phone Dandre Chavez MD Primary Care Provider +1- [phone] Miguel Enciso MD Unavailable [phone] Allergies Active Allergy Reactions Criticality Noted Date [...] Active ferrous sulfate 325 mg (65 mg [place] iron) EC tablet Take 325 mg by [...] focus on healthy food choices. Atherosclerosis of [place] co ronary artery of [place] heart with angina pectoris 10/28/2018 Assessment & [...] (04/14/2020 10:40 PM EDT): History of inferior MT in 2013 with a stent to her [...] LAD. She presented with a non-ST relation MT September 2018 and had a new culprit [...] will need to have this completed at [facility]. She is aware that this [...] December. She will have this completed at [facility] due to having her stress test [...] this topic Medical Devices Implanted Type Area Product Developer Device Identifier Shelf Expiration Date Model / Serial / Lot Sensor Pulmonary Artery Delivery System Cardiomems - [id number] Implanted:Qt y: 1 on 04/03/2022 by Miguel Enciso MD at [facility] Implantable Monitor Left: Arterial [employer] [id number] 12/15/2023 CM PATIENT SYSTEM / [id number] / Description:Pulmonary artery Procedures Procedure Name Priority Date/Time Associated Diagnosis Comments COMPREHENSIVE METABOLIC PANEL (CMP) Routine 04/18/2022 2:39 PM EDT Atherosclerosis of [place] coronary artery of [place] heart with angina pectoris Essential hypertension Ischemic cardiomyopathy PAD (peripheral artery disease) from Last 3 Months or Most Recently Relevant to Health Maintenance Results * (ABNORMAL) Comprehensive metabolic panel (04/18/2022 2:39 PM EDT) SODIUM 143 133 - 146 mmol/L [facility] POTASSIUM 4.5 3.3 - 5.1 mmol/L [facility] CHLORIDE 100 96 - 108 mmol/L [facility] CO2 34 21 - 35 mmol/L [facility] BUN 38(H) 6 - 19 mg/dL [facility] CREATININE 1.40 0.5 - 1.5 mg/dL [facility] GLUCOSE 163(H) 70 - 99 mg/dL [facility] ALBUMIN 4.0 3.9 - 4.8 g/dL [facility] TOTAL PROTEIN 7.5 6.5 - 8.0 g/dL [facility] CALCIUM 10.1 8.4 - 10.3 mg/dL [facility] ALKALINE PHOSPHATASE 94 39 - 117 U/L [facility] TOTAL BILIRUBIN 0.6 0.0 - 1.2 mg/dL [facility] AST 26 0 - 37 U/L [facility] ALT 12 0 - 40 U/L [facility] GLOBULIN 3.5 1 - 4.8 g/dL [facility] EGFR 39(L) >59 mL/min/1.7 3m2 [facility] Comment:Estimated glomerular filtration rate calculated using the CKD-EPI refit equation. ANION GAP 14 10 - 20 mmol/L [facility] Blood 04/18/2022 2:39 PM EDT 04/18/2022 2:42 PM EDT us Miguel Enciso MD LAB BLOOD BKR ORDERABLES Fi nal Result [facility] [address] [place] [address] from Last 3 Months or Most Recently Relevant to Health Maintenance Insurance MEDICARE PART A & B [employer] PREFERRED HMO REPLACEMENT [facility] MEDICARE PART A & B [place] [employer] PREFERRED HMO REPLACEMENT [facility] [place] [address] MEDICARE PART A & B [facility] MEDICARE PREFERRED HMO REPLACEMENT MEDICARE PART A & B [employer] [employer] PREF[employer]ED HMO REPLACEMENT MEDICARE PART A & B [facility] MEDICARE PREFERRED HMO REPLACEMENT [facility] MEDICARE PART A & B [employer] MED[employer] PREFERRED HMO REPLACEMENT MEDICARE PART A & B [place] [employer] PREFERRED HMO REPLACEMENT [facility] MEDICARE PART A & B [place] MEDICARE PREFERRED HMO REPLACEMENT [facility] MEDICARE PART A & B [place] MEDICARE PREFERRED HMO REPLACEMENT [facility] Care Teams At Risk Specialist Relationship Specialty Start Date End Date Dandre Chavez MD [address] [place] [phone] PCP - General 09/05/17 Miguel Enciso MD [address] [place] [phone] Cardiology 05/28/24 Additional Source Comments The information contained in this document represents components of the legal health record. It is not the complete legal health record.[facility]
--- OUTSIDE RECORDS SUMMARY | 2025-08-02 09:14 | XMS_ITS | Encounter Summary ---
Author Organization [facility] Address [address] [place] [address] Phone Care Team Providers Care Site Acquisition Manager Name Role Phone Dandre Chavez MD Primary Care Provider [phone]- [phone] Miguel Enciso MD Unavailable [phone] Encounter Details Date Type Department Care Team (Late st Contact Info) Description 04/03/2022 Procedure Pass [facility] [address] [place] [address] Social History Tobacco Use Types Packs/Day Years [...] on filedocumented in this encounter Care Teams Site Acquisition Manager Relationship Specialty Start Date End Date Dandre Chavez MD [address] [phone] PCP - General 09/05/17 Miguel Enciso MD [address] [place] [address], [address] [place], [place] [phone] Cardiology 05/28/24 documented as of this encounter Additional Source Comments The information contained in this document represents components of the legal health record. It is not the complete legal health record.[facility]
--- OUTSIDE RECORDS SUMMARY | 2025-08-02 09:14 | XMS_ITS | Encounter Summary ---
Author Organization [facility] Address [address] [place] [address] Phone Care Team Providers Care Web Press Operator Helper Offset Name Role Phone Dandre Chavez MD Primary Care Provider [phone]- [phone] Miguel Enciso MD Unavailable [phone] Encounter Details Date Type Department Care Team (Late st Contact Info) Description 12/20/2022 Procedure Pass Non-Invasive Cardiology [address] [place], [place] [phone] Social History Tobacco Use Types Packs/Day Years [...] filedocumented in this encounter Care Teams Web Press Operator Helper Offset Relationship Specialty Start Date End Date Dandre Chavez MD [address] [place] [address] [phone] PCP - General 09/05/17 Miguel Enciso MD [address] [place] [address], [address] [place], [place] [phone] Cardiology 05/28/24 documented as of this encounter Additional Source Comments The information contained in this document represents components of the legal health record. It is not the complete legal health record.[facility]
--- OUTSIDE RECORDS SUMMARY | 2025-08-02 09:14 | XMS_ITS | Encounter Summary ---
Author Organization [facility] Address [address] [place], [place] [address] [place] [address] Phone Care Team Providers Care Medical And Health Services Manager Name Role Phone Dandre Chavez MD Primary Care Provider [phone] Miguel Enciso MD Unavailable [phone] Encounter Details Date Type Department Care Team (Late st Contact Info) Description 07/01/2024 Procedure Pass [facility] Cardiology Referral Images [address] [facility] [address] [place] [address] Social History Tobacco Use Types Packs/Day Years [...] filedocumented in this encounter Care Teams Medical And Health Services Manager Relationship Specialty Start Date End Date Dandre Chavez MD [address] [place] [phone] PCP - General 09/05/17 Miguel Enciso MD [address] [place] [address] [email or web address] Cardiology 05/28/24 documented as of this encounter Additional Source Comments The information contained in this document represents components of the legal health record. It is not the complete legal health record.[facility]
--- OUTSIDE RECORDS SUMMARY | 2025-08-02 09:14 | XMS_ITS | Encounter Summary ---
Author Organization [facility] Address [address] [place] [address] Phone Care Team Providers Care Cutter Operator Helper Name Role Phone Dandre Chavez MD Primary Care Provider [phone]- [phone] Miguel Enciso MD Unavailable [phone] Encounter Details Date Type Department Care Team (Late st Contact Info) Description 12/21/2022 Procedure Pass [facility] [address] [id number] Social History Tobacco Use Types Packs/Day Years [...] on filedocumented in this encounter Care Teams Cutter Operator Helper Relationship Specialty Start Date End Date Dandre Chavez MD [address] [place] [address] [phone] PCP - General 09/05/17 Miguel Enciso MD [address] [facility] [place], [place] [phone] Cardiology 05/28/24 documented as of this encounter Additional Source Comments The information contained in this document represents components of the legal health record. It is not the complete legal health record.[facility]
--- OUTSIDE RECORDS SUMMARY | 2025-08-02 09:14 | XMS_ITS | Encounter Summary ---
Author Organization [facility] Address [address] [place] [address] Phone Care Team Providers Care Foil Operator Name Role Phone Dandre Chavez MD Primary Care Provider [phone]- [phone] Miguel Enciso MD Unavailable [phone] Encounter Details Date Type Department Care Team (Latest Contact Info) Description 12/16/2018 Ancillary Orders Non-Invasive Cardiology [address] [place] [address] Cathy Browning NP [address] [place] [address] Atherosclerosis of [place] coronary artery of [place] heart with angina pectoris Social History Tobacco [...] AM EDT) Max BP Systolic 150 mmHg [facility] Max BP Diastolic 80 mmHg [facility] Max HR 89 BPM [facility] Resting HR 78 BPM [facility] Resting BP Systolic 150 mmHg [facility] Resting BP Diastolic 80 mmHg [facility] Peak METS 1.0 METS [facility] Peak HR 83 BPM [facility] Anatomical Region Laterality Modality Heart Other [...] Enciso in our cardiology office on 12/26/18. Cahty Browning, JASMINE, MPH. 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 It is not the complete legal health record.[facility]
--- OUTSIDE RECORDS SUMMARY | 2025-08-02 09:14 | XMS_ITS | Clinical Summary ---
Author Organization [facility] Address [address] [place] [address] Care Team Providers Care Band Singer Name Role Phone Dandre Chavez MD Primary Care Provider [phone] Allergies Active Allergy Reactions Criticality Noted Date [...] age to complete this topic Care Teams Band Singer Relationship Specialty Start Date End Date Dandre Chavez MD [address] [place] [address] [phone] PCP - General Internal Medicine 11/06/22
--- OUTSIDE RECORDS SUMMARY | 2025-08-02 09:14 | XMS_ITS | Clinical Summary ---
Author Organization [address] Address [address] [place] [address] Phone Care Team Providers Care Cloth Stretcher Name Role Phone Amina Burciaga MD Primary Care Provider [phone] Immunizations Immunization Administration Dates Next Due Pfizer [...] ORDERABLES Final Resu lt Performing Organization Address City/[facility]/ZIP Co de Phone Number [facility] [address] [place] [address], [place] [phone] * Hemoglobin A1c (09/23/2024 8:20 AM EST) [...] ORDERABLES Final Resul t Performing Organization Address City/[facility]/ZIP Co de Phone Number [facility] [address] [place] [address], [place] [phone] from Last 3 Months or Most Recently Relevant to Health Maintenance Insurance [place]ICA[place] MEDIC[place]VANTAGE Care Teams Cloth Stretcher Relationship Specialty Start Date End Date Amina Burciaga MD [address] [place] [phone] PCP - General Hospitalist Medicine 09/11/24
--- OUTSIDE RECORDS SUMMARY | 2025-08-02 09:15 | XMS_ITS | Encounter Summary ---
Author Organization [facility] Address [address] [place] [address] Phone Care Team Providers Care Community Board Member Name Role Phone Dandre Chavez MD Primary Care Provider [phone]- [phone] Miguel Enciso MD Unavailable [phone] Encounter Details Date Type Department Care Team (Late st Contact Info) Description 08/18/2021 Procedure Pass Echo Lab [address] [id number] Social History Tobacco Use Types Packs/Day Years [...] filedocumented in this encounter Care Teams Community Board Member Relationship Specialty Start Date End Date Dandre Chavez MD [address] [place] [address] [phone] PCP - General 09/05/17 Miguel Enciso MD [address] [place] [address], [address] [place], [place] [phone] Cardiology 05/28/24 documented as of this encounter Additional Source Comments The information contained in this document represents components of the legal health record. It is not the complete legal health record.[facility]
--- OUTSIDE RECORDS SUMMARY | 2025-08-02 09:15 | XMS_ITS | Encounter Summary ---
Author Organization [facility] Address [address] [place] [phone] Care Team Providers Care Care Transport Nurse Name Role Phone Amina Burciaga MD Primary Care Provider [phone] Encounter Details Date Type Department Care Team (Late st Contact Info) Description 09/30/2024 Lab Requisition [facility] [address] [facility] [place] [address] Isaac Stark MD [address] [place] [address] [place] [address] Heart failure, unspecified [...] (ABNORMAL) Vitamin B12 (09/30/2024 9:57 AM EST) [facility] Vitamin B-12 1,028(H) 250 - 900 pcg/mL LAB CHEMISTRY METHOD 09/30/2024 1:04 PM [facility] Blood Venous blood specimen / Unknown Venipuncture / Unknown 09/30/2024 9:57 AM EST 09/30/2024 10:50 AM EST us Isaac Stark MD LAB BLOOD ORDERABLES Final Resu lt [facility] [address] [place] [address], [place] [phone] * (ABNORMAL) Comprehensive metabolic panel (09/30/2024 9:57 AM EST) [facility] Sodium 138 133 - 145 mmol/L LAB CHEMISTRY METHOD 09/30/2024 1:04 PM [facility] Potassium 3.7 3.5 - 5.5 mmol/L LAB CHEMISTRY METHOD 09/30/2024 1:04 PM [facility] Chloride 100 96 - 110 mmol/L LAB CHEMISTRY METHOD 09/30/2024 1:04 PM [facility] CO2 31 21 - 32 mmol/L LAB CHEMISTRY METHOD 09/30/2024 1:04 PM [facility] Anion Gap 7 3 - 11 LAB CHEMISTRY METHOD 09/30/2024 1:04 PM [facility] Glucose 228(H) 70 - 100 mg/dL LAB CHEMISTRY METHOD 09/30/2024 1:04 PM [facility] BUN 90(H) 5 - 25 mg/dL LAB CHEMISTRY METHOD 09/30/2024 1:04 PM [facility] Creatinine 2.19(H) 0.50 - 1.10 mg/dL LAB CHEMISTRY METHOD 09/30/2024 1:04 PM [facility] eGFR 23(L) >=60 mL/min/1. 73m2 LAB CHEMISTRY METHOD 09/30/2024 1:04 PM [facility] Comment:Calculation based on the Chronic Kidney Disease Epidemiology Collaboration (CKD-EPI) equation refit without adjustment for race. BUN/Creatinine Ratio 41.1 LAB CHEMISTRY METHOD 09/30/2024 1:04 PM [facility] Calcium 8.9 8.5 - 10.5 mg/dL LAB CHEMISTRY METHOD 09/30/2024 1:04 PM [facility] AST (SGOT) 22 10 - 42 unit/L LAB CHEMISTRY METHOD 09/30/2024 1:04 PM [facility] ALT (SGPT) 28 10 - 60 unit/L LAB CHEMISTRY METHOD 09/30/2024 1:04 PM [facility] Alkaline Phosphatase 47 42 - 121 unit/L LAB CHEMISTRY METHOD 09/30/2024 1:04 PM [facility] Total Protein 6.2 6.0 - 8.0 g/dL LAB CHEMISTRY METHOD 09/30/2024 1:04 PM [facility] Albumin 2.7(L) 3.2 - 5.0 g/dL LAB CHEMISTRY METHOD 09/30/2024 1:04 PM [facility] Total Bilirubin 0.6 0.0 - 1.4 mg/dL LAB CHEMISTRY METHOD 09/30/2024 1:04 PM [facility] Blood Venous blood specimen / Unknown Venipuncture / Unknown 09/30/2024 9:57 AM EST 09/30/2024 10:50 AM EST us Isaac Stark MD LAB BLOOD ORDERABLES Final Resu lt [facility] [address] [place] [address], * (ABNORMAL) Complete blood count (09/30/2024 9:57 AM EST) [facility] WBC 5.9 4.8 - 10.8 K/mcL LAB HEMETOLOGY METHOD 09/30/2024 12:25 PM [facility] RBC 3.80 3.80 - 4.80 M/mcL LAB HEMETOLOGY METHOD 09/30/2024 12:25 PM [facility] Hemoglobin 11.2(L) 11.5 - 16.0 g/dL LAB HEMETOLOGY METHOD 09/30/2024 12:25 PM [facility] Hematocrit 37.7 35.0 - 47.0 % LAB HEMETOLOGY METHOD 09/30/2024 12:25 PM [facility] MCV 98.2(H) 79.0 - 98.0 FL LAB HEMETOLOGY METHOD 09/30/2024 12:25 PM [facility] MCH 29.2 27.0 - 32.0 pcg LAB HEMETOLOGY METHOD 09/30/2024 12:25 PM [facility] MCHC 29.7(L) 32.0 - 37.0 g/dL LAB HEMETOLOGY METHOD 09/30/2024 12:25 PM [facility] RDW 17.7(H) 11.0 - 15.0 % LAB HEMETOLOGY METHOD 09/30/2024 12:25 PM [facility] Platelets 183 130 - 400 K/mcL LAB HEMETOLOGY METHOD 09/30/2024 12:25 PM [facility] MPV 11.7(H) 7.0 - 11.0 FL LAB HEMETOLOGY METHOD 09/30/2024 12:25 PM [facility] NRBC 0.0 <1.0 % LAB HEMETOLOGY METHOD 09/30/2024 12:25 PM [facility] NRBC Absolute 0.00 <0.10 K/mcL LAB HEMETOLOGY METHOD 09/30/2024 12:25 PM EST [facility] Blood Venous blood specimen / Unknown Venipuncture / Unknown 09/30/2024 9:57 AM EST 09/30/2024 10:50 AM EST us Isaac Stark MD LAB BLOOD ORDERABLES Final Resu lt Performing Organization Address City/[facility]/ZIP Co de Phone Number [facility] [address] [place] [address], [place] [phone] * Vitamin D 25 hydroxy (09/30/2024 9:57 AM EST) Vit D, 25-Hydroxy 54.9 30.0 - 80.0 ng/mL LAB CHEMISTRY METHOD 09/30/2024 12:48 PM EST [facility] Blood Venous blood specimen / Unknown Venipuncture / Unknown 09/30/2024 9:57 AM EST 09/30/2024 10:50 AM EST us Isaac Stark MD LAB BLOOD ORDERABLES Final Resu lt Performing Organization Address [facility]/ZIP Co de Phone Number [facility] [address] [place] [address], [place] [phone] documented in this encounter Visit Diagnoses Diagnosis Heart failure, unspecified (CMS/HCC V24, CMS/HCC V28) Heart failure, unspecified Vitamin D deficiency, unspecified documented in this encounter Care Teams Care Transport Nurse Relationship Specialty Start Date End Date Amina Burciaga MD [address] [place] [phone] PCP - General Hospitalist Medicine 09/11/24 documented as of this encounter
--- OUTSIDE RECORDS SUMMARY | 2025-08-02 09:15 | XMS_ITS | Encounter Summary ---
Author Organization [facility] Address [address] [place] [phone] Care Team Providers Care Nurse Transplant Name Role Phone Amina Burciaga MD Primary Care Provider [phone] Encounter Details Date Type Department Care Team (Latest Contact Info) Description 09/23/2024 Lab Requisition [facility] [address] [facility] [place] [address] Amina Burciaga MD [address] [place] [address] Type 2 diabetes mellitus with [...] t [facility] [address] [place] [address], * (ABNORMAL) Comprehensive metabolic panel (09/23/2024 8:20 AM EST) Pathologist [facility] Sodium 140 133 - 145 mmol/L [...] t [facility] [address] [place] [address], * (ABNORMAL) Complete blood count (09/23/2024 8:20 [...] LAB HEMETOLOGY METHOD 09/23/2024 12:38 PM EST [facility] NRBC Absolute 0.00 <0.10 K/mcL LAB HEMETOLOGY METHOD 09/23/2024 12:38 PM EST [facility] Blood Venous blood specimen / Unknown Venipuncture / Unknown 09/23/2024 8:20 AM EST 09/23/2024 12:06 PM EST us Amina Burciaga MD LAB BLOOD ORDERABLES Final Resul t [facility] [address] [place] [address], documented in this encounter Visit Diagnoses Diagnosis Type 2 diabetes mellitus with unspecified complications (CMS/HCC V24, CMS/HCC V28) Unspecified systolic (congestive) heart failure (CMS/HCC V24, CMS/HCC V28) documented in this encounter Care Teams Nurse Transplant Relationship Specialty Start Date End Date Amina Burciaga MD [address] [place] [phone] PCP - General Hospitalist Medicine 09/11/24 documented as of this encounter
--- OUTSIDE RECORDS SUMMARY | 2025-08-02 09:15 | XMS_ITS | Encounter Summary ---
Author Organization [facility] Address [address] [place] [address] Care Team Providers Care Petal Shaper Hand Name Role Phone Amina Burciaga MD Primary Care Provider [phone] Encounter Details Date Type Department Care Team (Late st Contact Info) Description 07/27/2024 Lab Requisition [facility] - Main Lab 299 On License Of [facility] [place] [address] Hortencia Mcclellan MD [address] [id number] Type 2 diabetes mellitus without complications (CMS/HCC [...] al Result [facility] 299 [place] [address], * (ABNORMAL) Complete blood count (07/28/2024 5:41 AM EST) [facility] WBC 4.1(L) 4.8 - 10.8 K/mcL LAB [...] MD LAB BLOOD ORDERABLES Fin al Result [facility] [address] [place] [address], documented in this encounter Visit Diagnoses Diagnosis Type 2 diabetes mellitus without complications (CMS/HCC V24, CMS/HCC V28) Heart failure, unspecified (CMS/HCC V24, CMS/HCC V28) Heart failure, unspecified documented in this encounter Care Teams Petal Shaper Hand Relationship Specialty Start Date End Date Amina Burciaga MD [address] [place] [address] PCP - General Hospitalist Medicine 09/11/24 documented as of this encounter
--- OUTSIDE RECORDS SUMMARY | 2025-08-02 09:15 | XMS_ITS | Encounter Summary ---
Author Organization [facility] Address [address] [place] [phone] Phone Care Team Providers Care Powder Room Attendant Name Role Phone Dandre Chavez MD Primary Care Provider [phone] Miguel Enciso MD Unavailable [phone] Encounter Details Date Type Department Care Team (Late st Contact Info) Description 09/18/2019 Ancillary Orders [facility] [address] Floor [place], [place] [phone] Miguel Enciso MD [address] [place] [address], [address] [place], [place] [id number] [email or web address] PVD (peripheral vascular disease) Social [...] disease documented in this encounter Care Teams Powder Room Attendant Relationship Specialty Start Date End Date Dandre Chavez MD [address] [place] [address] PCP - General 09/05/17 Miguel Enciso MD [address] [place] [address] [address] [place] [address] Cardiology 05/28/24 documented as of this encounter Additional Source Comments The information contained in this document represents components of the legal health record. It is not the complete legal health record.[facility]
--- OUTSIDE RECORDS SUMMARY | 2025-08-02 09:15 | XMS_ITS | Encounter Summary ---
Author Organization [facility] Address [address] [place] [address] Care Team Providers Care Donkey Engine Firer/Fireman Name Role Phone Amina Burciaga MD Primary Care Provider [phone] Encounter Details Date Type Department Care Team (Late st Contact Info) Description 08/03/2024 Lab Requisition [facility] - Main Lab 299 [facility] [place] [address] Hortencia Mcclellan MD [address] [id number] Type 2 diabetes mellitus without complications (CMS/HCC [...] al Result [facility] [address] [place] [address], * (ABNORMAL) Complete blood count (08/04/2024 6:38 AM EST) [facility] WBC 4.5(L) 4.8 - 10.8 K/mcL [...] BLOOD ORDERABLES Fin al Result [facility] [address] [place] [address], documented in this encounter Visit Diagnoses Diagnosis Type 2 diabetes mellitus without complications (CMS/HCC V24, CMS/HCC V28) Heart failure, unspecified (CMS/HCC V24, CMS/HCC V28) Heart failure, unspecified documented in this encounter Care Teams Donkey Engine Firer/Fireman Relationship Specialty Start Date End Date Amina Burciaga MD [address] [place] [address] PCP - General Hospitalist Medicine 09/11/24 documented as of this encounter
--- OUTSIDE RECORDS SUMMARY | 2025-08-02 09:15 | XMS_ITS | Encounter Summary ---
Author Organization [facility] Address [address] [place] [address] Care Team Providers Care Belting Inspector Name Role Phone Amina Burciaga MD Primary Care Provider [phone] Encounter Details Date Type Department Care Team (Latest Contact Info) Description 09/11/2024 Lab Requisition [facility] - Main Lab 299 [facility] [place] [address] Amina Burciaga MD [address] [place] [address] Other meterman (current) drug therapy; Type 2 diabetes mellitus [...] COUNT Routine 09/11/2024 9:47 AM EST Other meterman (current) drug therapy Type 2 diabetes mellitus without complications (CMS/HCC) Heart failure, unspecified (CMS/HCC) MAGNESIUM Routine 09/11/2024 9:47 AM EST Other meterman (current) drug therapy Type 2 diabetes mellitus without complications (CMS/HCC) Heart failure, unspecified (CMS/HCC) BASIC METABOLIC PANEL Routine 09/11/2024 9:47 AM EST Other skilled nursing (current) drug therapy Type 2 diabetes mellitus without complications (CMS/HCC) Heart failure, unspecified (CMS/HCC) documented in this encounter Results * Magnesium (09/11/2024 9:47 AM EST) [facility] Magnesium 2.1 1.9 - 2.6 mg/dL LAB CHEMISTRY METHOD 09/11/2024 12:45 PM [facility] Blood Venous blood specimen / Unknown Venipuncture / Unknown 09/11/2024 9:47 AM EST 09/11/2024 11:29 AM EST Amina Burciaga MD LAB BLOOD ORDERABLES Final Resul t [facility] [address] [place] [address], * (ABNORMAL) Basic metabolic panel (09/11/2024 9:47 AM EST) [facility] Sodium 137 133 - 145 mmol/L LAB CHEMISTRY METHOD 09/11/2024 12:54 PM [facility] Potassium 3.9 3.5 - 5.5 mmol/L LAB CHEMISTRY METHOD 09/11/2024 12:54 PM [facility] Chloride 103 96 - 110 mmol/L LAB CHEMISTRY METHOD 09/11/2024 12:54 PM [facility] CO2 26 21 - 32 mmol/L LAB CHEMISTRY METHOD 09/11/2024 12:54 PM [facility] Anion Gap 8 3 - 11 LAB CHEMISTRY METHOD 09/11/2024 12:54 PM [facility] Glucose 112(H) 70 - 100 mg/dL LAB CHEMISTRY METHOD 09/11/2024 12:54 PM [facility] BUN 50(H) 5 - 25 mg/dL LAB CHEMISTRY METHOD 09/11/2024 12:54 PM [facility] Creatinine 2.73(H) 0.50 - 1.10 mg/dL LAB CHEMISTRY METHOD 09/11/2024 12:54 PM [facility] eGFR 17(L) >=60 mL/min/1. 73m2 LAB CHEMISTRY METHOD 09/11/2024 12:54 PM [facility] Comment:Calculation based on the Chronic Kidney Disease Epidemiology Collaboration (CKD-EPI) equation refit without adjustment for race. BUN/Creatinine Ratio 18.3 LAB CHEMISTRY METHOD 09/11/2024 12:54 PM [facility] Calcium 8.6 8.5 - 10.5 mg/dL LAB CHEMISTRY METHOD 09/11/2024 12:54 PM [facility] Blood Venous blood specimen / Unknown Venipuncture / Unknown 09/11/2024 9:47 AM EST 09/11/2024 11:29 AM EST Amina Burciaga MD LAB BLOOD ORDERABLES Final Resul t [facility] [address] [place] [address], * (ABNORMAL) Complete blood count (09/11/2024 9:47 AM EST) WBC 6.9 4.8 - 10.8 K/mcL LAB HEMETOLOGY METHOD 09/11/2024 11:47 AM [facility] RBC 3.10(L) 3.80 - 4.80 M/mcL LAB HEMETOLOGY METHOD 09/11/2024 11:47 AM [facility] Hemoglobin 9.0(L) 11.5 - 16.0 g/dL LAB HEMETOLOGY METHOD 09/11/2024 11:47 AM [facility] Hematocrit 31.6(L) 35.0 - 47.0 % LAB HEMETOLOGY METHOD 09/11/2024 11:47 AM [facility] MCV 102.6(H) 79.0 - 98.0 FL LAB HEMETOLOGY METHOD 09/11/2024 11:47 AM EST [facility] MCH 29.2 27.0 - 32.0 pcg LAB HEMETOLOGY METHOD 09/11/2024 11:47 AM [facility] MCHC 28.5(L) 32.0 - 37.0 g/dL LAB HEMETOLOGY METHOD 09/11/2024 11:47 AM EST [facility] RDW 20.6(H) 11.0 - 15.0 % LAB HEMETOLOGY METHOD 09/11/2024 11:47 AM EST [facility] Platelets 180 130 - 400 K/mcL LAB HEMETOLOGY METHOD 09/11/2024 11:47 AM [facility] MPV 9.9 7.0 - 11.0 FL LAB HEMETOLOGY METHOD 09/11/2024 11:47 AM EST [facility] NRBC 0.0 <1.0 % LAB HEMETOLOGY METHOD 09/11/2024 11:47 AM [facility] NRBC Absolute 0.00 <0.10 K/mcL LAB HEMETOLOGY METHOD 09/11/2024 11:47 AM [facility] Blood Venous blood specimen / Unknown Venipuncture / Unknown 09/11/2024 9:47 AM EST 09/11/2024 11:29 AM EST us Amina Burciaga MD LAB BLOOD ORDERABLES Final Resul t [facility] [address] [place] [address], documented in this encounter Visit Diagnoses Diagnosis Other meterman (current) drug therapy Type 2 diabetes mellitus without complications (CMS/HCC V24, CMS/HCC V28) Heart failure, unspecified (CMS/HCC V24, CMS/HCC V28) Heart failure, unspecified documented in this encounter Care Teams Belting Inspector Relationship Specialty Start Date End Date Amina Burciaga MD [address] [place] [address] PCP - General Hospitalist Medicine 09/11/24 documented as of this encounter
--- OUTSIDE RECORDS SUMMARY | 2025-08-02 09:15 | XMS_ITS | Encounter Summary ---
Author Organization [facility] Address [address] [place] [address] Care Team Providers Care Chicken Dresser Name Role Phone Amina Burciaga MD Primary Care Provider [phone] Encounter Details Date Type Department Care Team (Latest Contact Info) Description 09/07/2024 Lab Requisition [facility] - Main Lab 299 [facility] [address] Amina Burciaga MD [address] [place] [address] Heart failure, unspecified (CMS/HCC V24, [...] mellitus without complications ([facility]) documented in this encounter Results * Hemoglobin A1c (09/07/2024 6:24 AM EST) Pathologist [facility] [place] [facility] Hemoglobin A1C 5.1 <6.5 % LAB CHEMISTRY METHOD 09/07/2024 11:11 AM EST [facility] Mean Bld Glu Estim. 100 mg/dL LAB CHEMISTRY METHOD 09/07/2024 11:11 AM [facility] Blood Venous blood specimen / Unknown Venipuncture / Unknown 09/07/2024 6:24 AM EST 09/07/2024 8:12 AM EST Amina Burciaga MD LAB BLOOD ORDERABLES Final Resul t [facility] 299 [place] [address], * (ABNORMAL) Comprehensive metabolic panel (09/07/2024 6:24 AM EST) [facility] Sodium 140 133 - 145 mmol/L LAB CHEMISTRY METHOD 09/07/2024 9:18 AM [facility] Potassium 3.8 3.5 - 5.5 mmol/L LAB CHEMISTRY METHOD 09/07/2024 9:18 AM [facility] Chloride 106 96 - 110 mmol/L LAB CHEMISTRY METHOD 09/07/2024 9:18 AM [facility] CO2 28 21 - 32 mmol/L LAB CHEMISTRY METHOD 09/07/2024 9:18 AM [facility] Anion Gap 6 3 - 11 LAB CHEMISTRY METHOD 09/07/2024 9:18 AM [facility] Glucose 61(L) 70 - 100 mg/dL LAB CHEMISTRY METHOD 09/07/2024 9:18 AM [facility] BUN 59(H) 5 - 25 mg/dL LAB CHEMISTRY METHOD 09/07/2024 9:18 AM [facility] Creatinine 3.13(H) 0.50 - 1.10 mg/dL LAB CHEMISTRY METHOD 09/07/2024 9:18 AM [facility] eGFR 15(L) >=60 mL/min/1. 73m2 LAB CHEMISTRY METHOD 09/07/2024 9:18 AM [facility] Comment:Calculation based on the Chronic Kidney Disease Epidemiology Collaboration (CKD-EPI) equation refit without adjustment for race. BUN/Creatinine Ratio 18.8 LAB CHEMISTRY METHOD 09/07/2024 9:18 AM [facility] Calcium 9.0 8.5 - 10.5 mg/dL LAB CHEMISTRY METHOD 09/07/2024 9:18 AM [facility] AST (SGOT) 17 10 - 42 unit/L LAB CHEMISTRY METHOD 09/07/2024 9:18 AM [facility] ALT (SGPT) 20 10 - 60 unit/L LAB CHEMISTRY METHOD 09/07/2024 9:18 AM [facility] Alkaline Phosphatase 60 42 - 121 unit/L LAB CHEMISTRY METHOD 09/07/2024 9:18 AM [facility] Total Protein 6.9 6.0 - 8.0 g/dL LAB CHEMISTRY METHOD 09/07/2024 9:18 AM [facility] Albumin 3.0(L) 3.2 - 5.0 g/dL LAB CHEMISTRY METHOD 09/07/2024 9:18 AM [facility] Total Bilirubin 0.5 0.0 - 1.4 mg/dL LAB CHEMISTRY METHOD 09/07/2024 9:18 AM [facility] Blood Venous blood specimen / Unknown Venipuncture / Unknown 09/07/2024 6:24 AM EST 09/07/2024 8:12 AM EST us Amina Burciaga MD LAB BLOOD ORDERABLES Final Resul t [facility] [address] [place] [address], * (ABNORMAL) Complete blood count (09/07/2024 6:24 AM EST) [facility] Signature WBC 4.7(L) 4.8 - 10.8 K/mcL LAB HEMETOLOGY METHOD 09/07/2024 8:53 AM [facility] RBC 3.00(L) 3.80 - 4.80 M/mcL LAB HEMETOLOGY METHOD 09/07/2024 8:53 AM [facility] Hemoglobin 8.9(L) 11.5 - 16.0 g/dL LAB HEMETOLOGY METHOD 09/07/2024 8:53 AM [facility] Hematocrit 30.6(L) 35.0 - 47.0 % LAB HEMETOLOGY METHOD 09/07/2024 8:53 AM [facility] MCV 101.7(H) 79.0 - 98.0 FL LAB HEMETOLOGY METHOD 09/07/2024 8:53 AM [facility] MCH 29.6 27.0 - 32.0 pcg LAB HEMETOLOGY METHOD 09/07/2024 8:53 AM [facility] MCHC 29.1(L) 32.0 - 37.0 g/dL LAB HEMETOLOGY METHOD 09/07/2024 8:53 AM [facility] RDW 20.1(H) 11.0 - 15.0 % LAB HEMETOLOGY METHOD 09/07/2024 8:53 AM [facility] Platelets 196 130 - 400 K/mcL LAB HEMETOLOGY METHOD 09/07/2024 8:53 AM [facility] MPV 10.0 7.0 - 11.0 FL LAB HEMETOLOGY METHOD 09/07/2024 8:53 AM [facility] NRBC 0.0 <1.0 % LAB HEMETOLOGY METHOD 09/07/2024 8:53 AM EST [facility] NRBC Absolute 0.00 <0.10 K/mcL LAB HEMETOLOGY METHOD 09/07/2024 8:53 AM EST [facility] Blood Venous blood specimen / Unknown Venipuncture / Unknown 09/07/2024 6:24 AM EST 09/07/2024 8:12 AM EST us Amina Burciaga MD LAB BLOOD ORDERABLES Final Resul t [facility] [address] [place] [address], documented in this encounter Visit Diagnoses Diagnosis Heart failure, unspecified (CMS/HCC V24, CMS/HCC V28) Heart failure, unspecified Chronic kidney disease, unspecified Type 2 diabetes mellitus without complications (CMS/HCC V24, CMS/HCC V28) documented in this encounter Care Teams Chicken Dresser Relationship Specialty Start Date End Date Amina Burciaga MD [address] [place] [address] PCP - General Hospitalist Medicine 09/11/24 documented as of this encounter
--- OUTSIDE RECORDS SUMMARY | 2025-08-02 09:15 | XMS_ITS | Encounter Summary ---
Author Organization [facility] Address [address] [place] [address] Care Team Providers Care Nut Blanker Operator Name Role Phone Amina Burciaga MD Primary Care Provider [phone] Encounter Details Date Type Department Care Team (Late st Contact Info) Description 08/10/2024 Lab Requisition [facility] - Main Lab 299 [facility] [place] [address] Hortencia Mcclellan MD [address] [id number] Type 2 diabetes mellitus without complications (CMS/HCC [...] unspecified documented in this encounter Care Teams Nut Blanker Operator Relationship Specialty Start Date End Date Amina Burciaga MD [address] [place] [address] PCP - General Hospitalist Medicine 09/11/24 documented as of this encounter
--- OUTSIDE RECORDS SUMMARY | 2025-08-02 09:15 | XMS_ITS | Encounter Summary ---
Author Organization [facility] Address [address] [place] [address] Care Team Providers Care Cytopathology Technologist Name Role Phone Amina Burciaga MD Primary Care Provider [phone] Encounter Details Date Type Department Care Team (Late st Contact Info) Description 07/23/2024 Lab Requisition [facility] - Main Lab 299 [place] [address] Hortencia Mcclellan MD [address] [phone] Chronic kidney disease, unspecified; Type 2 diabetes [...] LAB CHEMISTRY METHOD 07/23/2024 9:13 AM EST [facility] Potassium 3.8 3.5 - 5.5 mmol/L LAB CHEMISTRY METHOD 07/23/2024 9:13 AM EST [facility] Chloride 111(H) 96 - [...] al Result [facility] [address] [place] [address], documented in this encounter Visit Diagnoses Diagnosis Chronic kidney disease, unspecified Type 2 diabetes mellitus without complications (CMS/HCC V24, CMS/HCC V28) documented in this encounter Care Teams Cytopathology Technologist Relationship Specialty Start Date End Date Amina Burciaga MD [address] [place] [address] PCP - General Hospitalist Medicine 09/11/24 documented as of this encounter
--- OUTSIDE RECORDS SUMMARY | 2025-08-02 09:16 | XMS_ITS | Encounter Summary ---
Author Organization [facility] Address [address] [place] [address] Care Team Providers Care Oiler Bander Name Role Phone Amina Burciaga MD Primary Care Provider [phone] Encounter Details Date Type Department Care Team (Late st Contact Info) Description 07/13/2024 Lab Requisition [facility] - Main Lab 299 [facility] [place] [address] Hortencia Mcclellan MD [address] [phone] Type 2 diabetes mellitus without complications (CMS/HCC [...] Fin al Result [facility] [address] [place] [address], * (ABNORMAL) Complete blood count (07/14/2024 6:08 AM EST) [facility] WBC 5.3 4.8 - 10.8 K/mcL LAB [...] LAB HEMETOLOGY METHOD 07/14/2024 8:32 AM EST [facility] NRBC Absolute 0.00 <0.10 K/mcL LAB HEMETOLOGY METHOD 07/14/2024 8:32 AM EST [facility] Blood Venous blood specimen / Unknown Venipuncture / Unknown 07/14/2024 6:08 AM EST 07/14/2024 8:03 AM EST us Hortencia Mcclellan MD LAB BLOOD ORDERABLES Fin al Result [facility] [address] [place] [address], documented in this encounter Visit Diagnoses Diagnosis Type 2 diabetes mellitus without complications (CMS/HCC V24, CMS/HCC V28) Heart failure, unspecified (CMS/HCC V24, CMS/HCC V28) Heart failure, unspecified documented in this encounter Care Teams Oiler Bander Relationship Specialty Start Date End Date Amina Burciaga MD [address] [place] [address] PCP - General Hospitalist Medicine 09/11/24 documented as of this encounter
--- OUTSIDE RECORDS SUMMARY | 2025-08-02 09:16 | XMS_ITS | Encounter Summary ---
Author Organization [facility] Address [address] [place] [address] Care Team Providers Care Yarn Examiner Skeins Name Role Phone Amina Burciaga MD Primary Care Provider [phone] Encounter Details Date Type Department Care Team (Late st Contact Info) Description 07/20/2024 Lab Requisition [facility] - Main Lab 299 [facility] [place] [address] Hortencia Mcclellan MD [address] [phone] Type 2 diabetes mellitus without complications (CMS/HCC [...] Result [facility] [address] [place] [address], * (ABNORMAL) Complete blood count (07/21/2024 5:53 AM EST) [facility] WBC 5.0 4.8 - 10.8 K/mcL LAB [...] Result [facility] [address] [place] [address], documented in this encounter Visit Diagnoses Diagnosis Type 2 diabetes mellitus without complications (CMS/HCC V24, CMS/HCC V28) Heart failure, unspecified (CMS/HCC V24, CMS/HCC V28) Heart failure, unspecified documented in this encounter Care Teams Yarn Examiner Skeins Relationship Specialty Start Date End Date Amina Burciaga MD [address] [place] [address] PCP - General Hospitalist Medicine 09/11/24 documented as of this encounter
--- OUTSIDE RECORDS SUMMARY | 2025-08-02 09:16 | XMS_ITS | Encounter Summary ---
Author Organization [facility] Address [address] [place] [address] Care Team Providers Care Junior Qa Analyst Name Role Phone Amina Burciaga MD Primary Care Provider [phone] Encounter Details Date Type Department Care Team (Late st Contact Info) Description 07/10/2024 Lab Requisition [facility] - Main Lab 299 [facility] [place] [address] Lloyd Jernigan MD [address] [place] [address] Unspecified dementia, unspecified severity, without behavioral disturbance, [...] LAB BLOOD ORDERABLES Final R esult [facility] [address] [place] [address], * (ABNORMAL) Complete blood count (07/10/2024 6:29 [...] HEMETOLOGY METHOD 07/10/2024 9:47 AM EST [facility] NRBC 0.0 <1.0 % LAB HEMETOLOGY METHOD 07/10/2024 9:47 AM EST [facility] NRBC Absolute 0.00 <0.10 K/mcL LAB HEMETOLOGY METHOD 07/10/2024 9:47 AM EST [facility] Blood Venous blood specimen / Unknown Venipuncture / Unknown 07/10/2024 6:29 AM EST 07/10/2024 9:00 AM EST Lloyd Jernigan MD LAB BLOOD ORDERABLES Final R esult Performing Organization Address City/[facility]/ZIP Co de Phone Number [facility] [address] [place] [address], [place] [phone] * Hemoglobin A1c (07/10/2024 6:29 AM EST) Hemoglobin A1C 5.7 <6.5 % LAB CHEMISTRY METHOD 07/10/2024 1:42 PM EST [facility] Mean Bld Glu Estim. 117 mg/dL LAB CHEMISTRY METHOD 07/10/2024 1:42 PM EST [facility] Blood Venous blood specimen / Unknown Venipuncture / Unknown 07/10/2024 6:29 AM EST 07/10/2024 9:00 AM EST Lloyd Jernigan MD LAB BLOOD ORDERABLES Final R esult [facility] [address] [place] [address], [place] [phone] documented in this encounter Visit Diagnoses Diagnosis Unspecified dementia, unspecified severity, without behavioral disturbance, psychotic disturbance, mood disturbance, and anxiety (CMS/HCC V24, CMS/HCC V28) documented in this encounter Care Teams Junior Qa Analyst Relationship Specialty Start Date End Date Amina Burciaga MD [address] [place] [address] PCP - General Hospitalist Medicine 09/11/24 documented as of this encounter
== END 2025-08-02 08:40 | disposition home or self-care (01) ==
LOC: HO.MMNH2L 08:39
PROVIDERS: Visit Provider Physician Assistant Medical
DX: I50.33 Acute on chronic diastolic (congestive) heart failure (principal); N18.4 Chronic kidney disease, stage 4 (severe)
CPT/HCPCS: 36415; 80048; 84443; 85025

== ENCOUNTER 2025-08-09 09:00 | Outpatient (REF) | payer MEDICARE, SELFPAY ==
[2025-08-09 07:26] LABS: Hematocrit 30.7 % (37.0-47.0); Hemoglobin 8.9 g/dl (12.0-16.0); Imm Gran Abs Auto 0.02 X10*3/uL (0.00-0.03); Imm Gran Pct Auto 0.5 % (0.0-0.4); Lymphocytes Absolute Auto 0.4 X10*3/uL (1.2-4.9); MANUAL DIFF FLAG NO; Mean Corpuscular HGB Conc 29.0 g/dl (31.0-35.0); Mean Corpuscular Hemoglobin 28.7 pg (27.0-33.0); Mean Corpuscular Volume 99.0 fL (80.0-98.0); NRBC Abs Auto 0.000 X10*3/uL (0.0-0.012); NRBC Pct Auto 0.0 /100WBC (0.0-0.2); Platelet Count 174 X10*3/uL (160-400); Red Blood Count 3.10 X10*6/uL (4.20-5.50); White Blood Count 4.0 X10*3/uL (4.8-10.8)
[2025-08-09 07:45] LABS: Anion Gap 14 (12-20); Blood Urea Nitrogen 41 mg/dL (9-16); Calcium 9.0 mg/dL (8.4-10.2); Carbon Dioxide 25 mmol/L (22-29); Chloride 105 mmol/L (96-108); Estimated Glomerular Filt Rate 26; Potassium 3.9 mmol/L (3.3-5.1); Sodium 140 mmol/L (135-145)
== END 2025-08-09 09:01 | disposition home or self-care (01) ==
LOC: HO.MMNH2L 09:00
PROVIDERS: Visit Provider Physician Assistant Medical
DX: I50.33 Acute on chronic diastolic (congestive) heart failure (principal); N18.4 Chronic kidney disease, stage 4 (severe)
CPT/HCPCS: 36415; 80048; 85025

== ENCOUNTER 2025-08-16 08:04 | Outpatient (REF) | payer MEDICARE, SELFPAY ==
[2025-08-16 09:30] LABS: Procalcitonin 0.08 ng/mL
== END 2025-08-16 08:05 | disposition home or self-care (01) ==
LOC: HO.MMNH2L 08:04
PROVIDERS: Visit Provider Physician Assistant Medical
DX: I50.33 Acute on chronic diastolic (congestive) heart failure (principal); J44.9 Chronic obstructive pulmonary disease, unspecified
CPT/HCPCS: 36415; 80048; 83880; 84145; 85025

== ENCOUNTER 2025-08-16 09:21 | Outpatient (REF) | payer MEDICARE, SELFPAY ==
[2025-08-16 07:51] LABS: MANUAL DIFF FLAG NO
[2025-08-16 08:04] LABS: Hematocrit 30.4 % (37.0-47.0); Hemoglobin 9.0 g/dl (12.0-16.0); Imm Gran Abs Auto 0.01 X10*3/uL (0.00-0.03); Imm Gran Pct Auto 0.3 % (0.0-0.4); Lymphocytes Absolute Auto 0.5 X10*3/uL (1.2-4.9); Mean Corpuscular HGB Conc 29.6 g/dl (31.0-35.0); Mean Corpuscular Hemoglobin 28.8 pg (27.0-33.0); Mean Corpuscular Volume 97.4 fL (80.0-98.0); NRBC Abs Auto 0.000 X10*3/uL (0.0-0.012); NRBC Pct Auto 0.0 /100WBC (0.0-0.2); Platelet Count 174 X10*3/uL (160-400); Red Blood Count 3.12 X10*6/uL (4.20-5.50); White Blood Count 3.7 X10*3/uL (4.8-10.8)
[2025-08-16 08:42] LABS: Anion Gap 17 (12-20); Blood Urea Nitrogen 60 mg/dL (9-16); Calcium 9.4 mg/dL (8.4-10.2); Carbon Dioxide 27 mmol/L (22-29); Chloride 99 mmol/L (96-108); Estimated Glomerular Filt Rate 25; Potassium 3.0 mmol/L (3.3-5.1); Sodium 140 mmol/L (135-145)
== END 2025-08-16 09:22 | disposition home or self-care (01) ==
LOC: HO.MMNH2L 09:21
PROVIDERS: Visit Provider Physician Assistant Medical
DX: I50.33 Acute on chronic diastolic (congestive) heart failure (principal); N18.4 Chronic kidney disease, stage 4 (severe)
CPT/HCPCS: 36415; 80048; 85025

== ENCOUNTER 2025-08-23 07:19 | Outpatient (REF) | payer MEDICARE, SELFPAY ==
[2025-08-23 06:44] LABS: Hematocrit 25.9 % (37.0-47.0); Hemoglobin 8.1 g/dl (12.0-16.0); Imm Gran Abs Auto 0.03 X10*3/uL (0.00-0.03); Imm Gran Pct Auto 1.6 % (0.0-0.4); Lymphocytes Absolute Auto 0.2 X10*3/uL (1.2-4.9); MANUAL DIFF FLAG SCAN; Mean Corpuscular HGB Conc 31.3 g/dl (31.0-35.0); Mean Corpuscular Hemoglobin 28.5 pg (27.0-33.0); Mean Corpuscular Volume 91.2 fL (80.0-98.0); NRBC Abs Auto 0.000 X10*3/uL (0.0-0.012); NRBC Pct Auto 0.0 /100WBC (0.0-0.2); Platelet Count 188 X10*3/uL (160-400); Red Blood Count 2.84 X10*6/uL (4.20-5.50); SCAN SMEAR FLAG 1
[2025-08-23 06:59] LABS: White Blood Count 1.9 X10*3/uL (4.8-10.8)
--- OUTSIDE RECORDS SUMMARY | 2025-08-23 07:26 | XMS_ITS | Encounter Summary ---
Author Organization [facility], Address [address] [place] [address] Phone Care Team Providers Care Pickling Machine Operator Name Role Phone Dandre Chavez MD Primary Care Provider [phone] Encounter Details Date Type Department Care Team (Late st Contact Info) Description 10/12/2021 Documentation Only [facility], [address] [place] [address] Fiana Villegas PA Social History Tobacco Use [...] on filedocumented in this encounter Care Teams Pickling Machine Operator Relationship Specialty Start Date End Date Dandre Chavez MD [address] [place] [address], [address] [place], [place] PCP - General 07/07/19 documented as of this encounter
--- OUTSIDE RECORDS SUMMARY | 2025-08-23 07:26 | XMS_ITS | Encounter Summary ---
Author Organization [facility], Address [address] [place] [address] Phone Care Team Providers Care Wood Borer Name Role Phone Danrde Chavez MD Primary Care Provider [phone] Encounter Details Date Type Department Care Team (Late st Contact Info) Description 10/10/2021 Documentation Only [facility], [address] [place] [address] Faina Villegas PA Social History Tobacco Use [...] filedocumented in this encounter Care Teams Wood Borer Relationship Specialty Start Date End Date Dandre Chavez MD [address] [place] [address], [address] [place], [place] PCP - General 07/07/19 documented as of this encounter
--- OUTSIDE RECORDS SUMMARY | 2025-08-23 07:26 | XMS_ITS | Clinical Summary ---
Author Organization [facility] Prior to 01/30/[address] [place] [address] Care Team Providers Care Claims Consultant Name Role Phone Dandre Chavez MD Primary Care Provider [phone] Allergies Active Allergy Reactions Criticality Noted Date [...] 2025 11/29/2020, 11/08/2020 Influenza Vaccine (#1) 2025 , 10/06/2019, 09/12/2018 Hepatitis B Vaccines Aged Out No long er eligible based on patient's age to complete this topic RSV Ped < 20 months Aged Out No longe r eligible based on patient's age to complete this topic Care Teams Claims Consultant Relationship Specialty Start Date End Date Dandre Chavez MD [address] [place] [address] [place] [address] PCP - General Internal Medicine 11/06/22
--- OUTSIDE RECORDS SUMMARY | 2025-08-23 07:26 | XMS_ITS | Encounter Summary ---
Author Organization [facility], Address [address] [place] [address] Phone Care Team Providers Care Shift Superintendent Caustic Cresylate Name Role Phone Dandre Chavez MD Primary Care Provider [phone] Encounter Details Date Type Department Care Team (Late st Contact Info) Description 09/25/2021 Documentation Only [facility], [address] [place] [address] Faina Villegas PA Social History Tobacco Use [...] on filedocumented in this encounter Care Teams Shift Superintendent Caustic Cresylate Relationship Specialty Start Date End Date Dandre Chavez MD [address] [place] [address], [address] [place], [place] PCP - General 07/07/19 documented as of this encounter
--- OUTSIDE RECORDS SUMMARY | 2025-08-23 07:26 | XMS_ITS | Encounter Summary ---
Author Organization [facility], Address [address] [place] [address] Phone Care Team Providers Care Residential Roofer Name Role Phone Dandre Chavez MD Primary Care Provider [phone] Encounter Details Date Type Department Care Team (Late st Contact Info) Description 02/08/2022 Documentation Only [facility], [address] [place] [address] Faina Villegas PA Social History Tobacco Use [...] on filedocumented in this encounter Care Teams Residential Roofer Relationship Specialty Start Date End Date Dandre Chavez MD [address] [place] [address], [address] [place], [place] PCP - General 07/07/19 documented as of this encounter
--- OUTSIDE RECORDS SUMMARY | 2025-08-23 07:26 | XMS_ITS | Clinical Summary ---
Author Organization [address] Address [address] [place] [address] Phone Care Team Providers Care Jowl Trimmer Name Role Phone Amina Burciaga MD Primary Care Provider [phone] Immunizations Immunization Administration Dates Next Due Pfizer [...] Final Resu lt Performing Organization Address City/[facility]/ZIP Co de Phone Number [facility] [address] [place] [address], [place] [phone] * Hemoglobin A1c (09/23/2024 8:20 AM EST) [...] Final Resul t Performing Organization Address City/[facility]/ZIP Co de Phone Number [facility] [address] [place] [address], [place] [phone] from Last 3 Months or Most Recently Relevant to Health Maintenance Insurance MEDICA[place] [employer] Care Teams Jowl Trimmer Relationship Specialty Start Date End Date Amina Burciaga MD [address] [place] [phone] PCP - General Hospitalist Medicine 09/11/24
--- OUTSIDE RECORDS SUMMARY | 2025-08-23 07:26 | XMS_ITS | Encounter Summary ---
Author Organization [facility] Address [address] [place] [address] Phone Care Team Providers Care Toll Patrolman Name Role Phone Dandre Chavez MD Primary Care Provider [phone] Miguel Enciso MD Unavailable [phone] Encounter Details Date Type Department Care Team (Latest Contact Info) Description 12/16/2018 Ancillary Orders [facility] Non-Invasic Cardiology [address] [place] [address] Cathy Browning NP [address] [place] [address] Atherosclerosis of [place] coronary artery of [place] heart with angina pectoris Social History Tobacco [...] AM EDT) Max BP Systolic 150 mmHg [facility] Max BP Diastolic 80 mmHg [facility] Max HR 89 BPM [facility] Resting HR 78 BPM [facility] Resting BP Systolic 150 mmHg [facility] Resting BP Diastolic 80 mmHg [facility] Peak METS 1.0 METS [facility] Peak HR 83 BPM [facility] Anatomical Region Laterality Modality Heart Other [...] 12/26/18. Cathy Browning NP, MPH. 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 Cardiology 05/28/24 documented as of this encounter Additional Source Comments The information contained in this document represents components of the legal health record. It is not the complete legal health record.[facility]
--- OUTSIDE RECORDS SUMMARY | 2025-08-23 07:26 | XMS_ITS | Encounter Summary ---
Author Organization [facility] Address [address] [place] [address] Care Team Providers Care Sales Force Developer Name Role Phone Amina Burciaga MD Primary Care Provider [phone] Encounter Details Date Type Department Care Team (Latest Contact Info) Description 09/07/2024 Lab Requisition [facility] - Main Lab [address] [place] [address] Amina Burciaga MD [address] [place] [address] Heart failure, unspecified (CMS/HCC V24, [...] unspecified Type 2 diabetes mellitus without complications ([facility]) documented in this encounter Results * Hemoglobin A1c (09/07/2024 6:24 AM EST) Pathologist [facility] Hemoglobin A1C 5.1 <6.5 % LAB CHEMISTRY METHOD 09/07/2024 11:11 AM EST [facility] Mean Bld Glu Estim. 100 mg/dL LAB CHEMISTRY METHOD 09/07/2024 11:11 AM [facility] Blood Venous blood specimen / Unknown Venipuncture / Unknown 09/07/2024 6:24 AM EST 09/07/2024 8:12 AM EST Amina Burciaga MD LAB BLOOD ORDERABLES Final Resul t [facility] [address] [place] [address], * (ABNORMAL) Comprehensive metabolic panel (09/07/2024 6:24 AM EST) [facility] Sodium 140 133 - 145 mmol/L LAB CHEMISTRY METHOD 09/07/2024 9:18 AM [facility] Potassium 3.8 3.5 - 5.5 mmol/L LAB CHEMISTRY METHOD 09/07/2024 9:18 AM [facility] Chloride 106 96 - 110 mmol/L LAB CHEMISTRY METHOD 09/07/2024 9:18 AM [facility] CO2 28 21 - 32 mmol/L LAB CHEMISTRY METHOD 09/07/2024 9:18 AM [facility] Anion Gap 6 3 - 11 LAB CHEMISTRY METHOD 09/07/2024 9:18 AM [facility] Glucose 61(L) 70 - 100 mg/dL LAB CHEMISTRY METHOD 09/07/2024 9:18 AM [facility] BUN 59(H) 5 - 25 mg/dL LAB CHEMISTRY METHOD 09/07/2024 9:18 AM [facility] Creatinine 3.13(H) 0.50 - 1.10 mg/dL LAB CHEMISTRY METHOD 09/07/2024 9:18 AM [facility] eGFR 15(L) >=60 mL/min/1. 73m2 LAB CHEMISTRY METHOD 09/07/2024 9:18 AM [facility] Comment:Calculation based on the Chronic Kidney Disease Epidemiology Collaboration (CKD-EPI) equation refit without adjustment for race. BUN/Creatinine Ratio 18.8 LAB CHEMISTRY METHOD 09/07/2024 9:18 AM [facility] Calcium 9.0 8.5 - 10.5 mg/dL LAB CHEMISTRY METHOD 09/07/2024 9:18 AM [facility] AST (SGOT) 17 10 - 42 unit/L LAB CHEMISTRY METHOD 09/07/2024 9:18 AM [facility] ALT (SGPT) 20 10 - 60 unit/L LAB CHEMISTRY METHOD 09/07/2024 9:18 AM [facility] Alkaline Phosphatase 60 42 - 121 unit/L LAB CHEMISTRY METHOD 09/07/2024 9:18 AM [facility] Total Protein 6.9 6.0 - 8.0 g/dL LAB CHEMISTRY METHOD 09/07/2024 9:18 AM [facility] Albumin 3.0(L) 3.2 - 5.0 g/dL LAB CHEMISTRY METHOD 09/07/2024 9:18 AM [facility] Total Bilirubin 0.5 0.0 - 1.4 mg/dL LAB CHEMISTRY METHOD 09/07/2024 9:18 AM [facility] Blood Venous blood specimen / Unknown Venipuncture / Unknown 09/07/2024 6:24 AM EST 09/07/2024 8:12 AM EST us Amina Burciaga MD LAB BLOOD ORDERABLES Final Resul t [facility] [address] [place] [address], * (ABNORMAL) Complete blood count (09/07/2024 6:24 AM EST) [facility] Signature WBC 4.7(L) 4.8 - 10.8 K/mcL LAB HEMETOLOGY METHOD 09/07/2024 8:53 AM [facility] RBC 3.00(L) 3.80 - 4.80 M/mcL LAB HEMETOLOGY METHOD 09/07/2024 8:53 AM [facility] Hemoglobin 8.9(L) 11.5 - 16.0 g/dL LAB HEMETOLOGY METHOD 09/07/2024 8:53 AM [facility] Hematocrit 30.6(L) 35.0 - 47.0 % LAB HEMETOLOGY METHOD 09/07/2024 8:53 AM [facility] MCV 101.7(H) 79.0 - 98.0 FL LAB HEMETOLOGY METHOD 09/07/2024 8:53 AM [facility] MCH 29.6 27.0 - 32.0 pcg LAB HEMETOLOGY METHOD 09/07/2024 8:53 AM [facility] MCHC 29.1(L) 32.0 - 37.0 g/dL LAB HEMETOLOGY METHOD 09/07/2024 8:53 AM [facility] RDW 20.1(H) 11.0 - 15.0 % LAB HEMETOLOGY METHOD 09/07/2024 8:53 AM [facility] Platelets 196 130 - 400 K/mcL LAB HEMETOLOGY METHOD 09/07/2024 8:53 AM [facility] MPV 10.0 7.0 - 11.0 FL LAB HEMETOLOGY METHOD 09/07/2024 8:53 AM [facility] NRBC 0.0 <1.0 % LAB HEMETOLOGY METHOD 09/07/2024 8:53 AM EST [facility] NRBC Absolute 0.00 <0.10 K/mcL LAB HEMETOLOGY METHOD 09/07/2024 8:53 AM EST [facility] Blood Venous blood specimen / Unknown Venipuncture / Unknown 09/07/2024 6:24 AM EST 09/07/2024 8:12 AM EST us Amina Burciaga MD LAB BLOOD ORDERABLES Final Resul t [facility] [address] [place] [address], documented in this encounter Visit Diagnoses Diagnosis Heart failure, unspecified (CMS/HCC V24, CMS/HCC V28) Heart failure, unspecified Chronic kidney disease, unspecified Type 2 diabetes mellitus without complications (CMS/HCC V24, CMS/HCC V28) documented in this encounter Care Teams Sales Force Developer Relationship Specialty Start Date End Date Amina Burciaga MD [address] [place] [address] PCP - General Hospitalist Medicine 09/11/24 documented as of this encounter
--- OUTSIDE RECORDS SUMMARY | 2025-08-23 07:26 | XMS_ITS | Encounter Summary ---
Author Organization [facility], Address [address] [place] [address] Phone Care Team Providers Care Supervisor Tile And Mottle Name Role Phone Dandre Chavez MD Primary Care Provider [phone] Encounter Details Date Type Department Care Team (Late st Contact Info) Description 02/09/2022 Documentation Only [facility], [address] [place] [address] Faina Villegas PA Social History Tobacco Use [...] filedocumented in this encounter Care Teams Supervisor Tile And Mottle Relationship Specialty Start Date End Date Dandre Chavez MD [address] [place] [address], [address] [place], [place] PCP - General 07/07/19 documented as of this encounter
--- OUTSIDE RECORDS SUMMARY | 2025-08-23 07:26 | XMS_ITS | Encounter Summary ---
Author Organization [facility] Address [address] [place] [address] Care Team Providers Care Land Management Forester Name Role Phone Amina Burciaga MD Primary Care Provider [phone] Encounter Details Date Type Department Care Team (Latest Contact Info) Description 09/11/2024 Lab Requisition [facility] - Main Lab [address] [facility] [place] [address] Amina Burciaga MD [address] [place] [address] Other terminal make up operator (current) drug therapy; Type 2 diabetes [...] Routine 09/11/2024 9:47 AM EST Other terminal make up operator (current) drug therapy Type 2 diabetes mellitus without complications (CMS/HCC) Heart failure, unspecified (CMS/HCC) MAGNESIUM Routine 09/11/2024 9:47 AM EST Other [facility] (current) drug therapy Type 2 diabetes mellitus without complications (CMS/HCC) Heart failure, unspecified (CMS/HCC) BASIC METABOLIC PANEL Routine 09/11/2024 9:47 AM EST Other [facility] (current) drug therapy Type 2 diabetes mellitus without complications (CMS/HCC) Heart failure, unspecified (CMS/HCC) documented in this encounter Results * Magnesium (09/11/2024 9:47 AM EST) [facility] Magnesium 2.1 1.9 - 2.6 mg/dL LAB CHEMISTRY METHOD 09/11/2024 12:45 PM [facility] Blood Venous blood specimen / Unknown Venipuncture / Unknown 09/11/2024 9:47 AM EST 09/11/2024 11:29 AM EST Amina Burciaga MD LAB BLOOD ORDERABLES Final Resul t [facility] [address] [place] [address], * (ABNORMAL) Basic metabolic panel (09/11/2024 9:47 AM EST) [facility] Sodium 137 133 - 145 mmol/L [...] t [facility] [address] [place] [address], * (ABNORMAL) Complete blood count (09/11/2024 9:47 [...] t [facility] [address] [place] [address], documented in this encounter Visit Diagnoses Diagnosis Other [facility] (current) drug therapy Type 2 diabetes mellitus without complications (CMS/HCC V24, CMS/HCC V28) Heart failure, unspecified (CMS/HCC V24, CMS/HCC V28) Heart failure, unspecified documented in this encounter Care Teams Land Management Forester Relationship Specialty Start Date End Date Amina Burciaga MD [address] [place] [address] PCP - General Hospitalist Medicine 09/11/24 documented as of this encounter
--- OUTSIDE RECORDS SUMMARY | 2025-08-23 07:26 | XMS_ITS | Encounter Summary ---
Author Organization [facility] Address [address] [place] [address] Care Team Providers Care Pony Trimmer Name Role Phone Amina Burciaga MD Primary Care Provider [phone] Encounter Details Date Type Department Care Team (Late st Contact Info) Description 09/30/2024 Lab Requisition [facility] - Main Lab [address] [facility] [place] [address] Isaac Stark MD [address] [place] [address] [place] [address] Heart failure, unspecified [...] (ABNORMAL) Vitamin B12 (09/30/2024 9:57 AM EST) [facility] Vitamin B-12 1,028(H) 250 - 900 pcg/mL LAB CHEMISTRY METHOD 09/30/2024 1:04 PM [facility] Blood Venous blood specimen / Unknown Venipuncture / Unknown 09/30/2024 9:57 AM EST 09/30/2024 10:50 AM EST us Isaac Stark MD LAB BLOOD ORDERABLES Final Resu lt [facility] [address] [place] [address], [place] [phone] * (ABNORMAL) Comprehensive metabolic panel (09/30/2024 9:57 AM EST) [facility] Sodium 138 133 - 145 mmol/L LAB CHEMISTRY METHOD 09/30/2024 1:04 PM [facility] Potassium 3.7 3.5 - 5.5 mmol/L LAB CHEMISTRY METHOD 09/30/2024 1:04 PM [facility] Chloride 100 96 - 110 mmol/L LAB CHEMISTRY METHOD 09/30/2024 1:04 PM [facility] CO2 31 21 - 32 mmol/L LAB CHEMISTRY METHOD 09/30/2024 1:04 PM [facility] Anion Gap 7 3 - 11 LAB CHEMISTRY METHOD 09/30/2024 1:04 PM [facility] Glucose 228(H) 70 - 100 mg/dL LAB CHEMISTRY METHOD 09/30/2024 1:04 PM [facility] BUN 90(H) 5 - 25 mg/dL LAB CHEMISTRY METHOD 09/30/2024 1:04 PM [facility] Creatinine 2.19(H) 0.50 - 1.10 mg/dL LAB CHEMISTRY METHOD 09/30/2024 1:04 PM [facility] eGFR 23(L) >=60 mL/min/1. 73m2 LAB CHEMISTRY METHOD 09/30/2024 1:04 PM [facility] Comment:Calculation based on the Chronic Kidney Disease Epidemiology Collaboration (CKD-EPI) equation refit without adjustment for race. BUN/Creatinine Ratio 41.1 LAB CHEMISTRY METHOD 09/30/2024 1:04 PM [facility] Calcium 8.9 8.5 - 10.5 mg/dL LAB CHEMISTRY METHOD 09/30/2024 1:04 PM [facility] AST (SGOT) 22 10 - 42 unit/L LAB CHEMISTRY METHOD 09/30/2024 1:04 PM [facility] ALT (SGPT) 28 10 - 60 unit/L LAB CHEMISTRY METHOD 09/30/2024 1:04 PM [facility] Alkaline Phosphatase 47 42 - 121 unit/L LAB CHEMISTRY METHOD 09/30/2024 1:04 PM [facility] Total Protein 6.2 6.0 - 8.0 g/dL LAB CHEMISTRY METHOD 09/30/2024 1:04 PM [facility] Albumin 2.7(L) 3.2 - 5.0 g/dL LAB CHEMISTRY METHOD 09/30/2024 1:04 PM [facility] Total Bilirubin 0.6 0.0 - 1.4 mg/dL LAB CHEMISTRY METHOD 09/30/2024 1:04 PM [facility] Blood Venous blood specimen / Unknown Venipuncture / Unknown 09/30/2024 9:57 AM EST 09/30/2024 10:50 AM EST us Isaac Stark MD LAB BLOOD ORDERABLES Final Resu lt [facility] [address] [place] [address], * (ABNORMAL) Complete blood count (09/30/2024 9:57 AM EST) [facility] WBC 5.9 4.8 - 10.8 K/mcL LAB HEMETOLOGY METHOD 09/30/2024 12:25 PM [facility] RBC 3.80 3.80 - 4.80 M/mcL LAB HEMETOLOGY METHOD 09/30/2024 12:25 PM [facility] Hemoglobin 11.2(L) 11.5 - 16.0 g/dL LAB HEMETOLOGY METHOD 09/30/2024 12:25 PM [facility] Hematocrit 37.7 35.0 - 47.0 % LAB HEMETOLOGY METHOD 09/30/2024 12:25 PM [facility] MCV 98.2(H) 79.0 - 98.0 FL LAB HEMETOLOGY METHOD 09/30/2024 12:25 PM [facility] MCH 29.2 27.0 - 32.0 pcg LAB HEMETOLOGY METHOD 09/30/2024 12:25 PM [facility] MCHC 29.7(L) 32.0 - 37.0 g/dL LAB HEMETOLOGY METHOD 09/30/2024 12:25 PM [facility] RDW 17.7(H) 11.0 - 15.0 % LAB HEMETOLOGY METHOD 09/30/2024 12:25 PM [facility] Platelets 183 130 - 400 K/mcL LAB HEMETOLOGY METHOD 09/30/2024 12:25 PM [facility] MPV 11.7(H) 7.0 - 11.0 FL LAB HEMETOLOGY METHOD 09/30/2024 12:25 PM [facility] NRBC 0.0 <1.0 % LAB HEMETOLOGY METHOD 09/30/2024 12:25 PM [facility] NRBC Absolute 0.00 <0.10 K/mcL LAB HEMETOLOGY METHOD 09/30/2024 12:[address] [facility] Blood Venous blood specimen / Unknown Venipuncture / Unknown 09/30/2024 9:57 AM EST 09/30/2024 10:50 AM EST us Isaac Stark MD LAB BLOOD ORDERABLES Final Resu lt Performing Organization Address City/[facility]/ZIP Co de Phone Number [facility] [address] [place] [address], [place] [phone] * Vitamin D 25 hydroxy (09/30/2024 9:57 AM EST) Vit D, 25-Hydroxy 54.9 30.0 - 80.0 ng/mL LAB CHEMISTRY METHOD 09/30/2024 12:[address] [facility] Blood Venous blood specimen / Unknown Venipuncture / Unknown 09/30/2024 9:57 AM EST 09/30/2024 10:50 AM EST us Isaac Stark MD LAB BLOOD ORDERABLES Final Resu lt Performing Organization Address [facility]/ZIP Co de Phone Number [facility] [address] [place] [address], [place] [phone] documented in this encounter Visit Diagnoses Diagnosis Heart failure, unspecified (CMS/HCC V24, CMS/HCC V28) Heart failure, unspecified Vitamin D deficiency, unspecified documented in this encounter Care Teams Pony Trimmer Relationship Specialty Start Date End Date Amina Burciaga MD [address] [place] [phone] PCP - General Hospitalist Medicine 09/11/24 documented as of this encounter
--- OUTSIDE RECORDS SUMMARY | 2025-08-23 07:26 | XMS_ITS | Encounter Summary ---
Author Organization [facility], Address [address] [place] [address] Phone Care Team Providers Care Manager Lan Name Role Phone Dandre Chavez MD Primary Care Provider [phone] Encounter Details Date Type Department Care Team (Late st Contact Info) Description 02/09/2022 Documentation Only [facility], [address] [place] [address] Faina Villegas PA Social History Tobacco Use [...] filedocumented in this encounter Care Teams Manager Lan Relationship Specialty Start Date End Date Dandre Chavez MD [address] [place] [address], [address] [place], [place] PCP - General 07/07/19 documented as of this encounter
--- OUTSIDE RECORDS SUMMARY | 2025-08-23 07:26 | XMS_ITS | Encounter Summary ---
Author Organization [facility] Address [address] [place] [address] Care Team Providers Care Bee Robber Name Role Phone Amina Burciaga MD Primary Care Provider [phone] Encounter Details Date Type Department Care Team (Latest Contact Info) Description 09/23/2024 Lab Requisition [facility] - Main Lab [address] [facility] [place] [address] Amina Burciaga MD [address] [place] [address] Type 2 diabetes mellitus with [...] Resul t [facility] [address] [place] [address], * (ABNORMAL) Comprehensive metabolic panel (09/23/2024 8:20 AM EST) Pathologist [facility] Sodium 140 133 - 145 mmol/L LAB CHEMISTRY METHOD 09/23/2024 4:37 PM [facility] Potassium 3.9 3.5 - 5.5 mmol/L LAB CHEMISTRY METHOD 09/23/2024 4:37 PM [facility] Chloride 102 96 - 110 mmol/L LAB CHEMISTRY METHOD 09/23/2024 4:37 PM [facility] CO2 31 21 - 32 mmol/L LAB CHEMISTRY METHOD 09/23/2024 4:37 PM [facility] Anion Gap 7 3 - 11 LAB CHEMISTRY METHOD 09/23/2024 4:37 PM [facility] Glucose 106(H) 70 - 100 mg/dL LAB CHEMISTRY METHOD 09/23/2024 4:37 PM [facility] BUN 82(H) 5 - 25 mg/dL LAB CHEMISTRY METHOD 09/23/2024 4:37 PM [facility] Creatinine 2.46(H) 0.50 - 1.10 mg/dL LAB CHEMISTRY METHOD 09/23/2024 4:37 PM [facility] eGFR 20(L) >=60 mL/min/1. 73m2 LAB CHEMISTRY METHOD 09/23/2024 4:37 PM [facility] Comment:Calculation based on the Chronic Kidney Disease Epidemiology Collaboration (CKD-EPI) equation refit without adjustment for race. BUN/Creatinine Ratio 33.3 LAB CHEMISTRY METHOD 09/23/2024 4:37 PM [facility] Calcium 8.7 8.5 - 10.5 mg/dL LAB CHEMISTRY METHOD 09/23/2024 4:37 PM [facility] AST (SGOT) 17 10 - 42 unit/L LAB CHEMISTRY METHOD 09/23/2024 4:37 PM [facility] ALT (SGPT) 34 10 - 60 unit/L LAB CHEMISTRY METHOD 09/23/2024 4:37 PM [facility] Alkaline Phosphatase 57 42 - 121 unit/L LAB CHEMISTRY METHOD 09/23/2024 4:37 PM [facility] Total Protein 7.1 6.0 - 8.0 g/dL LAB CHEMISTRY METHOD 09/23/2024 4:37 PM [facility] Albumin 3.2 3.2 - 5.0 g/dL LAB CHEMISTRY METHOD 09/23/2024 4:37 PM [facility] Total Bilirubin 0.6 0.0 - 1.4 mg/dL LAB CHEMISTRY METHOD 09/23/2024 4:37 PM [facility] Blood Venous blood specimen / Unknown Venipuncture / Unknown 09/23/2024 8:20 AM EST 09/23/2024 12:06 PM EST us Amina Burciaga MD LAB BLOOD ORDERABLES Final Resul t [facility] [address] [place] [address], * (ABNORMAL) Complete blood count (09/23/2024 8:20 AM EST) [facility] WBC 6.2 4.8 - 10.8 K/mcL LAB HEMETOLOGY METHOD 09/23/2024 12:38 PM [facility] RBC 3.60(L) 3.80 - 4.80 M/mcL LAB HEMETOLOGY METHOD 09/23/2024 12:38 PM [facility] Hemoglobin 10.5(L) 11.5 - 16.0 g/dL LAB HEMETOLOGY METHOD 09/23/2024 12:38 PM [facility] Hematocrit 36.5 35.0 - 47.0 % LAB HEMETOLOGY METHOD 09/23/2024 12:38 PM [facility] MCV 100.3(H) 79.0 - 98.0 FL LAB HEMETOLOGY METHOD 09/23/2024 12:38 PM [facility] MCH 28.8 27.0 - 32.0 pcg LAB HEMETOLOGY METHOD 09/23/2024 12:38 PM [facility] MCHC 28.8(L) 32.0 - 37.0 g/dL LAB HEMETOLOGY METHOD 09/23/2024 12:38 PM [facility] RDW 18.4(H) 11.0 - 15.0 % LAB HEMETOLOGY METHOD 09/23/2024 12:38 PM [facility] Platelets 254 130 - 400 K/mcL LAB HEMETOLOGY METHOD 09/23/2024 12:38 PM [facility] MPV 10.7 7.0 - 11.0 FL LAB HEMETOLOGY METHOD 09/23/2024 12:38 PM [facility] NRBC 0.0 <1.0 % LAB HEMETOLOGY METHOD 09/23/2024 12:38 PM EST [facility] NRBC Absolute 0.00 <0.10 K/mcL LAB HEMETOLOGY METHOD 09/23/2024 12:38 PM EST [facility] Blood Venous blood specimen / Unknown Venipuncture / Unknown 09/23/2024 8:20 AM EST 09/23/2024 12:06 PM EST us Amina Burciaga MD LAB BLOOD ORDERABLES Final Resul t [facility] [address] [place] [address], documented in this encounter Visit Diagnoses Diagnosis Type 2 diabetes mellitus with unspecified complications (CMS/HCC V24, CMS/HCC V28) Unspecified systolic (congestive) heart failure (CMS/HCC V24, CMS/HCC V28) documented in this encounter Care Teams Bee Robber Relationship Specialty Start Date End Date Amina Burciaga MD [address] [place] [address] PCP - General Hospitalist Medicine 09/11/24 documented as of this encounter
--- OUTSIDE RECORDS SUMMARY | 2025-08-23 07:27 | XMS_ITS | Encounter Summary ---
Author Organization [facility] Address [address] [place] [address] Care Team Providers Care Ag Service Manager Name Role Phone Amina Burciaga MD Primary Care Provider [phone] Encounter Details Date Type Department Care Team (Late st Contact Info) Description 08/10/2024 Lab Requisition [facility] - Main Lab 299 [facility] [place] [address] Hortencia Mcclellan MD [address] [id number] Type 2 diabetes mellitus without complications (CMS/HCC [...] unspecified documented in this encounter Care Teams Ag Service Manager Relationship Specialty Start Date End Date Amina Burciaga MD [address] [place] [address] PCP - General Hospitalist Medicine 09/11/24 documented as of this encounter
--- OUTSIDE RECORDS SUMMARY | 2025-08-23 07:27 | XMS_ITS | Encounter Summary ---
Author Organization [facility] Address [address] [place] [address] Phone Care Team Providers Care Fine Unhairer Name Role Phone Dandre Chavez MD Primary Care Provider [phone] Miguel Enciso MD Unavailable [phone] Encounter Details Date Type Department Care Team (Late st Contact Info) Description 04/03/2022 Procedure Pass [employer] [address] [place] [address] Social History Tobacco Use Types Packs/Day Years [...] on filedocumented in this encounter Care Teams Fine Unhairer Relationship Specialty Start Date End Date Dandre Chavez MD [address] [place] [address] PCP - General 09/05/17 Miguel Enciso MD [address] [place] [address], [address] [place], [place] [phone] [email or web address] Cardiology 05/28/24 documented as of this encounter Additional Source Comments The information contained in this document represents components of the legal health record. It is not the complete legal health record.[facility]
--- OUTSIDE RECORDS SUMMARY | 2025-08-23 07:27 | XMS_ITS | Encounter Summary ---
Author Organization [facility], Address [address] [place] [address] Phone Care Team Providers Care Rn Community Health Name Role Phone Dandre Chavez MD Primary Care Provider [phone] Encounter Details Date Type Department Care Team (Late st Contact Info) Description 08/06/2023 Documentation Only [facility], [address] [place] [address] Desi Rodriguez Social History Tobacco Use Types [...] filedocumented in this encounter Care Teams Rn Community Health Relationship Specialty Start Date End Date Dandre Chavez MD [address] [place] [address], [address] [place], [place] PCP - General 07/07/19 documented as of this encounter
--- OUTSIDE RECORDS SUMMARY | 2025-08-23 07:27 | XMS_ITS | Encounter Summary ---
Author Organization [facility] Address [address] [place] [address] Phone Care Team Providers Care Warehouse Shift Supervisor Name Role Phone Dandre Chavez MD Primary Care Provider [phone] Miguel Enciso MD Unavailable [phone] Encounter Details Date Type Department Care Team (Late st Contact Info) Description 12/20/2022 Procedure Pass [facility] [address] [place] [address] Social History Tobacco Use Types Packs/Day Years [...] filedocumented in this encounter Care Teams Warehouse Shift Supervisor Relationship Specialty Start Date End Date Dandre Chavez MD [address] [place] [id number] PCP - General 09/05/17 Miguel Enciso MD [address] [place] [address], [facility] [address] [place], [place] [phone] [email or web address] Cardiology 05/28/24 documented as of this encounter Additional Source Comments The information contained in this document represents components of the legal health record. It is not the complete legal health record.[facility]
--- OUTSIDE RECORDS SUMMARY | 2025-08-23 07:27 | XMS_ITS | Encounter Summary ---
Author Organization [facility], Address [address] [place] [address] Phone Care Team Providers Care Livestock Farm Manager Name Role Phone Dandre Chavez MD Primary Care Provider [phone] Encounter Details Date Type Department Care Team (Late st Contact Info) Description 10/30/2022 Documentation Only [facility], [address] [place] [address] Melissa Delgadillo [address] [place] [phone] Social History Tobacco Use Types Packs/Day Years [...] on filedocumented in this encounter Care Teams Livestock Farm Manager Relationship Specialty Start Date End Date Dandre Chavez MD [address] [place] [address], [address] [place], [place] PCP - General 07/07/19 documented as of this encounter
--- OUTSIDE RECORDS SUMMARY | 2025-08-23 07:27 | XMS_ITS | Encounter Summary ---
Author Organization [facility], Address [address] [place] [address] Phone Care Team Providers Care Dermatology Sales Representative Name Role Phone Dandre Chavez MD Primary Care Provider [phone] Encounter Details Date Type Department Care Team (Late st Contact Info) Description 01/08/2025 Documentation Only [facility], [address] [place] [address] Radha Chatterjee [place] [address] [place] [phone] Social History Tobacco Use Types Packs/Day Years [...] on filedocumented in this encounter Care Teams Dermatology Sales Representative Relationship Specialty Start Date End Date Dandre Chavez MD [address] [place] [address], [address] [place], [place] PCP - General 07/07/19 documented as of this encounter
--- OUTSIDE RECORDS SUMMARY | 2025-08-23 07:27 | XMS_ITS | Encounter Summary ---
Author Organization [facility] Address [address] [place], [place] [address] [place] [address] Phone Care Team Providers Care Microbiological Analyst Name Role Phone Dandre Chavez MD Primary Care Provider [phone] Miguel Enciso MD Unavailable [phone] Encounter Details Date Type Department Care Team (Late st Contact Info) Description 07/01/2024 Procedure Pass [facility] Cardiology Referral Images [address] [facility] [address] [place] [address] Social History Tobacco Use Types Packs/Day Years [...] on filedocumented in this encounter Care Teams Microbiological Analyst Relationship Specialty Start Date End Date Dandre Chavez MD [address] [place] [address] PCP - General 09/05/17 Miguel Enciso MD [address] [place] [address] [email or web address] Cardiology 05/28/24 documented as of this encounter Additional Source Comments The information contained in this document represents components of the legal health record. It is not the complete legal health record.[facility]
--- OUTSIDE RECORDS SUMMARY | 2025-08-23 07:27 | XMS_ITS | Encounter Summary ---
Author Organization [facility] Address [address] [place], [place] [address] [place] [address] Phone Care Team Providers Care Wire Brusher Name Role Phone Dandre Chavez MD Primary Care Provider [phone] Miguel Enciso MD Unavailable [phone] Encounter Details Date Type Department Care Team (Late st Contact Info) Description 07/01/2024 Procedure Pass [facility] Cardiology Referral Images [address] [facility] [address] [place] [address] Social History Tobacco Use Types Packs/Day Years [...] on filedocumented in this encounter Care Teams Wire Brusher Relationship Specialty Start Date End Date Dandre Chavez MD [address] [place] [address] PCP - General 09/05/17 Miguel Enciso MD [address] [place] [address] [email or web address] Cardiology 05/28/24 documented as of this encounter Additional Source Comments The information contained in this document represents components of the legal health record. It is not the complete legal health record.[facility]
--- OUTSIDE RECORDS SUMMARY | 2025-08-23 07:27 | XMS_ITS | Encounter Summary ---
Author Organization [facility] Address [address] [place] [address] Care Team Providers Care Ticketer Name Role Phone Amina Burciaga MD Primary Care Provider [phone] Encounter Details Date Type Department Care Team (Late st Contact Info) Description 08/03/2024 Lab Requisition [facility] - Main Lab 299 [facility] [place] [address] Hortencia Mcclellan MD [address] [phone] Type 2 diabetes mellitus without complications (CMS/HCC [...] Result [facility] [address] [place] [address], * (ABNORMAL) Complete blood count (08/04/2024 6:38 AM EST) [facility] WBC 4.5(L) 4.8 - 10.8 K/mcL [...] MD LAB BLOOD ORDERABLES Fin al Result [facility] [address] [place] [address], documented in this encounter Visit Diagnoses Diagnosis Type 2 diabetes mellitus without complications (CMS/HCC V24, CMS/HCC V28) Heart failure, unspecified (CMS/HCC V24, CMS/HCC V28) Heart failure, unspecified documented in this encounter Care Teams Ticketer Relationship Specialty Start Date End Date Amina Burciaga MD [address] [place] [address] PCP - General Hospitalist Medicine 09/11/24 documented as of this encounter
--- OUTSIDE RECORDS SUMMARY | 2025-08-23 07:27 | XMS_ITS | Encounter Summary ---
Author Organization [facility] Address [address] [place] [address] Care Team Providers Care Cement Contractor Name Role Phone Amina Burciaga MD Primary Care Provider [phone] Encounter Details Date Type Department Care Team (Late st Contact Info) Description 07/20/2024 Lab Requisition [facility] - Main Lab 299 [facility] [place] [address] Hortencia Mcclellan MD [address] [facility] 1 [place], [place] [phone] Type 2 diabetes mellitus without complications (CMS/HCC [...] al Result [facility] [address] [place] [address], * (ABNORMAL) Complete blood count (07/21/2024 5:53 AM EST) [facility] WBC 5.0 4.8 - 10.8 K/mcL LAB [...] LAB HEMETOLOGY METHOD 07/21/2024 8:26 AM EST [facility] NRBC Absolute 0.00 <0.10 K/mcL LAB HEMETOLOGY METHOD 07/21/2024 8:26 AM EST [facility] Blood Venous blood specimen / Unknown Venipuncture / Unknown 07/21/2024 5:53 AM EST 07/21/2024 7:55 AM EST us Hortencia Mcclellan MD LAB BLOOD ORDERABLES Fin al Result [facility] [address] [place] [address], documented in this encounter Visit Diagnoses Diagnosis Type 2 diabetes mellitus without complications (CMS/HCC V24, CMS/HCC V28) Heart failure, unspecified (CMS/HCC V24, CMS/HCC V28) Heart failure, unspecified documented in this encounter Care Teams Cement Contractor Relationship Specialty Start Date End Date Amina Burciaga MD [address] [place] [address] PCP - General Hospitalist Medicine 09/11/24 documented as of this encounter
--- OUTSIDE RECORDS SUMMARY | 2025-08-23 07:27 | XMS_ITS | Encounter Summary ---
Author Organization [facility], Address [address] [place] [address] Phone Care Team Providers Care Heavy Duty Mechanic Farm Equipment Name Role Phone Dandre Chavez MD Primary Care Provider [phone] Encounter Details Date Type Department Care Team (Late st Contact Info) Description 09/07/2022 Documentation Only [facility], [address] [place] [address] Faina Villegas PA Social History Tobacco Use [...] on filedocumented in this encounter Care Teams Heavy Duty Mechanic Farm Equipment Relationship Specialty Start Date End Date Dandre Chavez MD [address] [place] [address], [address] [place], [place] PCP - General 07/07/19 documented as of this encounter
--- OUTSIDE RECORDS SUMMARY | 2025-08-23 07:27 | XMS_ITS | Encounter Summary ---
Author Organization [facility] Address [address] [place] [address] Care Team Providers Care Field Marketing Team Leader Name Role Phone Amina Burciaga MD Primary Care Provider [phone] Encounter Details Date Type Department Care Team (Late st Contact Info) Description 07/13/2024 Lab Requisition [facility] - Main Lab 299 [facility] [place] [address] Hortencia Mcclellan MD [address] [phone] Type 2 diabetes mellitus without complications (CMS/HCC [...] mmol/L LAB CHEMISTRY METHOD 07/14/2024 9:03 AM [facility] Potassium 3.8 3.5 - 5.5 mmol/L LAB CHEMISTRY METHOD 07/14/2024 9:03 AM [facility] Chloride 105 96 - 110 mmol/L LAB CHEMISTRY METHOD 07/14/2024 9:03 AM [facility] CO2 28 21 - 32 mmol/L LAB CHEMISTRY METHOD 07/14/2024 9:03 AM [facility] Anion Gap 6 3 - 11 LAB CHEMISTRY METHOD 07/14/2024 9:03 AM [facility] Glucose 105(H) 70 - 100 mg/dL LAB CHEMISTRY METHOD 07/14/2024 9:03 AM [facility] BUN 70(H) 5 - 25 mg/dL LAB CHEMISTRY METHOD 07/14/2024 9:03 AM [facility] Creatinine 3.26(H) 0.50 - 1.10 mg/dL LAB CHEMISTRY METHOD 07/14/2024 9:03 AM [facility] eGFR 14(L) >=60 mL/min/1. 73m2 LAB CHEMISTRY METHOD 07/14/2024 9:03 AM [facility] Comment:Calculation based on the Chronic Kidney Disease Epidemiology Collaboration (CKD-EPI) equation refit without adjustment for race. BUN/Creatinine Ratio 21.5 LAB CHEMISTRY METHOD 07/14/2024 9:03 AM [facility] Calcium 8.6 8.5 - 10.5 mg/dL LAB CHEMISTRY METHOD 07/14/2024 9:03 AM [facility] Blood Venous blood specimen / Unknown Venipuncture / Unknown 07/14/2024 6:08 AM EST 07/14/2024 8:03 AM EST us Hortencia Mcclellan MD LAB BLOOD ORDERABLES Fin al Result [facility] [address] [place] [address], * (ABNORMAL) Complete blood count (07/14/2024 6:08 AM EST) [facility] WBC 5.3 4.8 - 10.8 K/mcL LAB HEMETOLOGY METHOD 07/14/2024 8:32 AM [facility] RBC 3.00(L) 3.80 - 4.80 M/mcL LAB HEMETOLOGY METHOD 07/14/2024 8:32 AM [facility] Hemoglobin 8.3(L) 11.5 - 16.0 g/dL LAB HEMETOLOGY METHOD 07/14/2024 8:32 AM [facility] Hematocrit 29.9(L) 35.0 - 47.0 % LAB HEMETOLOGY METHOD 07/14/2024 8:32 AM [facility] MCV 101.4(H) 79.0 - 98.0 FL LAB HEMETOLOGY METHOD 07/14/2024 8:32 AM [facility] MCH 28.1 27.0 - 32.0 pcg LAB HEMETOLOGY METHOD 07/14/2024 8:32 AM [facility] MCHC 27.8(L) 32.0 - 37.0 g/dL LAB HEMETOLOGY METHOD 07/14/2024 8:32 AM [facility] RDW 20.0(H) 11.0 - 15.0 % LAB HEMETOLOGY METHOD 07/14/2024 8:32 AM [facility] Platelets 198 130 - 400 K/mcL LAB HEMETOLOGY METHOD 07/14/2024 8:32 AM [facility] MPV 10.3 7.0 - 11.0 FL LAB HEMETOLOGY METHOD 07/14/2024 8:32 AM [facility] NRBC 0.0 <1.0 % LAB HEMETOLOGY METHOD 07/14/2024 8:32 AM EST [facility] NRBC Absolute 0.00 <0.10 K/mcL LAB HEMETOLOGY METHOD 07/14/2024 8:32 AM EST [facility] Blood Venous blood specimen / Unknown Venipuncture / Unknown 07/14/2024 6:08 AM EST 07/14/2024 8:03 AM EST us Hortencia Mcclellan MD LAB BLOOD ORDERABLES Fin al Result [facility] [address] [place] [address], documented in this encounter Visit Diagnoses Diagnosis Type 2 diabetes mellitus without complications (CMS/HCC V24, CMS/HCC V28) Heart failure, unspecified (CMS/HCC V24, CMS/HCC V28) Heart failure, unspecified documented in this encounter Care Teams Field Marketing Team Leader Relationship Specialty Start Date End Date Amina Burciaga MD [address] [place] [address] PCP - General Hospitalist Medicine 09/11/24 documented as of this encounter
--- OUTSIDE RECORDS SUMMARY | 2025-08-23 07:27 | XMS_ITS | Clinical Summary ---
Author Organization [facility] [place], Address [address] [address] Phone Care Team Providers Care Cable Weaver Name Role Phone Dandre Chavez MD Primary Care Provider [phone] Allergies Active Allergy Reactions Criticality Noted Date [...] PM EST) Hemoglobin A1C 6.9(H) (4.0-5.6) % [facility] Comment: MONITORING: In known diabetic patients, hemoglobin A1c targets should be discussed with health care provider. DIAGNOSTIC USE: The [employer] Diabetes Association (ADA) and the World Health [...] Supplement 1 Testing performed or reported by [facility], a Service of [facility], [address] [place] [address] Louis Fry MD, Sheet Metal Duct Worker Supervisor [facility]# [id number] Blood specimen (specimen) Venous blood / Unknown 10/18/2022 2:34 PM EST 10/18/2022 2:35 PM EST us Faina LUCIANO LAB BLOOD ORDERABLES Final Res ult [facility] from Last 3 Months or Most Recently Relevant to Health Maintenance Insurance Medicare Medicaid [place] Member Subscriber Plan / Payer (Ef fective 2025-Present) Name:Amina Zamora J Luis Relation to Subscriber:Self Name:Amina Zamora J Luis Payer ID:Not on file Group ID:Not on file Type:Not on file Address: [address] [place] [address] [place] [address] [facility] [place] [address] Care Teams Cable Weaver Relationship Specialty Start Date End Date Dandre Chavez MD [address] [place] [address], [address] [place] PCP - General 07/07/19
--- OUTSIDE RECORDS SUMMARY | 2025-08-23 07:27 | XMS_ITS | Encounter Summary ---
Author Organization [facility] Address [address] [place] [address] Care Team Providers Care Systems Eng Name Role Phone Amina Burciaga MD Primary Care Provider [phone] Encounter Details Date Type Department Care Team (Late st Contact Info) Description 07/23/2024 Lab Requisition [facility] - Main Lab [address] [place] [address] Hortencia Mcclellan MD [address] [phone] Chronic kidney disease, unspecified; Type 2 diabetes [...] mmol/L LAB CHEMISTRY METHOD 07/23/2024 9:13 AM [facility] CO2 27 21 - 32 mmol/L LAB CHEMISTRY METHOD 07/23/2024 9:13 AM [facility] LAB Anion Gap 6 3 - 11 LAB CHEMISTRY METHOD 07/23/2024 9:13 AM [facility] LAB Glucose 64(L) 70 - 100 mg/dL LAB CHEMISTRY METHOD 07/23/2024 9:13 AM [facility] BUN 62(H) 5 - 25 mg/dL LAB CHEMISTRY METHOD 07/23/2024 9:13 AM [facility] Creatinine 2.70(H) 0.50 - 1.10 mg/dL LAB CHEMISTRY METHOD 07/23/2024 9:13 AM [facility] eGFR 18(L) >=60 mL/min/1. 73m2 LAB CHEMISTRY METHOD 07/23/2024 9:13 AM [facility] Comment:Calculation based on the Chronic Kidney Disease Epidemiology Collaboration (CKD-EPI) equation refit without adjustment for race. BUN/Creatinine Ratio 23.0 LAB CHEMISTRY METHOD 07/23/2024 9:13 AM [facility] Calcium 9.2 8.5 - 10.5 mg/dL LAB CHEMISTRY METHOD 07/23/2024 9:13 AM [facility] Blood Venous blood specimen / Unknown Venipuncture / Unknown 07/23/2024 5:52 AM EST 07/23/2024 8:17 AM EST us Hortencia Mcclellan MD LAB BLOOD ORDERABLES Fin al Result [facility] [address] [place] [address], documented in this encounter Visit Diagnoses Diagnosis Chronic kidney disease, unspecified Type 2 diabetes mellitus without complications (CMS/HCC V24, CMS/HCC V28) documented in this encounter Care Teams Systems Eng Relationship Specialty Start Date End Date Amina Burciaga MD [address] [place] [address] PCP - General Hospitalist Medicine 09/11/24 documented as of this encounter
--- OUTSIDE RECORDS SUMMARY | 2025-08-23 07:27 | XMS_ITS | Encounter Summary ---
Author Organization [facility] Address [address] [place] [address] Phone Care Team Providers Care Tar Heater Name Role Phone Dandre Chavez MD Primary Care Provider [phone] Miguel Enciso MD Unavailable [phone] Encounter Details Date Type Department Care Team (Late st Contact Info) Description 09/18/2019 Ancillary Orders [facility] [address] [facility] 3rd Floor [place], [place] [phone] Miguel Enciso MD [address] [place] [address], [address] [place], [place] [phone] [email or web address] PVD (peripheral vascular disease) Social History [...] disease documented in this encounter Care Teams Tar Heater Relationship Specialty Start Date End Date Dandre Chavez MD [address] [place] [address] PCP - General 09/05/17 Miguel Enciso MD [address] [place] [address] Cardiology 05/28/24 documented as of this encounter Additional Source Comments The information contained in this document represents components of the legal health record. It is not the complete legal health record.[facility]
--- OUTSIDE RECORDS SUMMARY | 2025-08-23 07:27 | XMS_ITS | Encounter Summary ---
Author Organization [facility], Address [address] [place] [address] Phone Care Team Providers Care Capacitor Pack Press Operator Name Role Phone Dandre Chavez MD Primary Care Provider [phone] Encounter Details Date Type Department Care Team (Late st Contact Info) Description 08/02/2022 Documentation Only [facility], [address] [place] [address] Faina Villegas PA Social History Tobacco Use [...] on filedocumented in this encounter Care Teams Capacitor Pack Press Operator Relationship Specialty Start Date End Date Dandre Chavez MD [address] [place] [address], [address] [place], [place] PCP - General 07/07/19 documented as of this encounter
--- OUTSIDE RECORDS SUMMARY | 2025-08-23 07:27 | XMS_ITS | Encounter Summary ---
Author Organization [facility] Address [address] [place] [address] Care Team Providers Care Member Service Specialist Name Role Phone Amina Burciaga MD Primary Care Provider [phone] Encounter Details Date Type Department Care Team (Late st Contact Info) Description 07/10/2024 Lab Requisition [facility] - Main Lab [address] [facility] [address] Lloyd Jernigan MD [address] [place] [address] Unspecified dementia, unspecified severity, without behavioral disturbance, [...] mmol/L LAB CHEMISTRY METHOD 07/10/2024 9:59 AM [facility] Potassium 4.4 3.5 - 5.5 mmol/L LAB CHEMISTRY METHOD 07/10/2024 9:59 AM [facility] Chloride 103 96 - 110 mmol/L LAB CHEMISTRY METHOD 07/10/2024 9:59 AM [facility] CO2 31 21 - 32 mmol/L LAB CHEMISTRY METHOD 07/10/2024 9:59 AM [facility] Anion Gap 5 3 - 11 LAB CHEMISTRY METHOD 07/10/2024 9:59 AM [facility] Glucose 115(H) 70 - 100 mg/dL LAB CHEMISTRY METHOD 07/10/2024 9:59 AM [facility] BUN 62(H) 5 - 25 mg/dL LAB CHEMISTRY METHOD 07/10/2024 9:59 AM [facility] Creatinine 2.86(H) 0.50 - 1.10 mg/dL LAB CHEMISTRY METHOD 07/10/2024 9:59 AM [facility] eGFR 16(L) >=60 mL/min/1. 73m2 LAB CHEMISTRY METHOD 07/10/2024 9:59 AM [facility] Comment:Calculation based on the Chronic Kidney Disease Epidemiology Collaboration (CKD-EPI) equation refit without adjustment for race. BUN/Creatinine Ratio 21.7 LAB CHEMISTRY METHOD 07/10/2024 9:59 AM [facility] Calcium 9.3 8.5 - 10.5 mg/dL LAB CHEMISTRY METHOD 07/10/2024 9:59 AM [facility] Blood Venous blood specimen / Unknown Venipuncture / Unknown 07/10/2024 6:29 AM EST 07/10/2024 9:00 AM EST us Lloyd Jernigan MD LAB BLOOD ORDERABLES Final R esult [facility] [address] [place] [address], * (ABNORMAL) Complete blood count (07/10/2024 6:29 AM EST) WBC 5.3 4.8 - 10.8 K/mcL LAB HEMETOLOGY METHOD 07/10/2024 9:47 AM [facility] RBC 3.20(L) 3.80 - 4.80 M/mcL LAB HEMETOLOGY METHOD 07/10/2024 9:47 AM [facility] Hemoglobin 8.9(L) 11.5 - 16.0 g/dL LAB HEMETOLOGY METHOD 07/10/2024 9:47 AM [facility] Hematocrit 32.0(L) 35.0 - 47.0 % LAB HEMETOLOGY METHOD 07/10/2024 9:47 AM [facility] MCV 101.6(H) 79.0 - 98.0 FL LAB HEMETOLOGY METHOD 07/10/2024 9:47 AM [facility] MCH 28.3 27.0 - 32.0 pcg LAB HEMETOLOGY METHOD 07/10/2024 9:47 AM [facility] MCHC 27.8(L) 32.0 - 37.0 g/dL LAB HEMETOLOGY METHOD 07/10/2024 9:47 AM [facility] RDW 20.3(H) 11.0 - 15.0 % LAB HEMETOLOGY METHOD 07/10/2024 9:47 AM [facility] Platelets 239 130 - 400 K/mcL LAB HEMETOLOGY METHOD 07/10/2024 9:47 AM [facility] MPV 10.2 7.0 - 11.0 [...] ORDERABLES Final R esult Performing Organization Address City/[facility]/ZIP Co de Phone Number [facility] [address] [place] [address], [place] [phone] * Hemoglobin A1c (07/10/2024 6:29 AM EST) [...] R esult [facility] [address] [place] [address], [place] [phone] documented in this encounter Visit Diagnoses Diagnosis Unspecified dementia, unspecified severity, without behavioral disturbance, psychotic disturbance, mood disturbance, and anxiety (CMS/HCC V24, CMS/HCC V28) documented in this encounter Care Teams Member Service Specialist Relationship Specialty Start Date End Date Amina Burciaga MD [address] [place] [address] PCP - General Hospitalist Medicine 09/11/24 documented as of this encounter
--- OUTSIDE RECORDS SUMMARY | 2025-08-23 07:27 | XMS_ITS | Encounter Summary ---
Author Organization [facility], Address [address] [place] [address] Phone Care Team Providers Care Metal Crafts Teacher Name Role Phone Dandre Chavez MD Primary Care Provider [phone] Encounter Details Date Type Department Care Team (Late st Contact Info) Description 11/29/2023 Documentation Only [facility], [address] [place] [address] Radha Chatterjee [place] [address] [place] [phone] Social History Tobacco Use Types Packs/Day Years [...] on filedocumented in this encounter Care Teams Metal Crafts Teacher Relationship Specialty Start Date End Date Dandre Chavez MD [address] [place] [address], [address] [place], [place] PCP - General 07/07/19 documented as of this encounter
--- OUTSIDE RECORDS SUMMARY | 2025-08-23 07:27 | XMS_ITS | Encounter Summary ---
Author Organization [facility], Address [address] [place] [address] Phone Care Team Providers Care Gear Tooth Lapping Machine Operator Name Role Phone Dandre Chavez MD Primary Care Provider [phone] Encounter Details Date Type Department Care Team (Late st Contact Info) Description 12/31/2022 Documentation Only [facility], [address] [place] [address] Melissa Delgadillo [address] [place] [phone] Social History Tobacco Use Types Packs/Day Years [...] on filedocumented in this encounter Care Teams Gear Tooth Lapping Machine Operator Relationship Specialty Start Date End Date Dandre Chavez MD [address] [place] [address], [address] [place], [place] PCP - General 07/07/19 documented as of this encounter
--- OUTSIDE RECORDS SUMMARY | 2025-08-23 07:27 | XMS_ITS | Clinical Summary ---
Author Organization [facility] Address [address] [place] [address] Phone Care Team Providers Care Broach Setter Name Role Phone Dandre Chavez MD Primary Care Provider [phone] Miguel Enciso MD Unavailable [phone] Allergies Active Allergy Reactions Criticality Noted Date [...] Active ferrous sulfate 325 mg (65 mg siletz tribe iron) EC tablet Take 325 mg [...] focus on healthy food choices. Atherosclerosis of [place] co ronary artery of [place] heart with angina pectoris 10/28/2018 Assessment & [...] (04/14/2020 10:40 PM EDT): History of inferior MS in 2013 with [...] LAD. 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 She is aware that this [...] She will have this completed at [facility] due to having her stress [...] this topic Medical Devices Implanted Type Area Chamber Magistrate Device Identifier Shelf Expiration Date Model / Serial / Lot Sensor Pulmonary Artery Delivery System Cardiomems - [id number] Implanted:Qt y: 1 on 04/03/2022 by Miguel Enciso MD at [facility] Implantable Monitor Left: Arterial [employer] [id number] 12/15/2023 CM PATIENT SYSTEM / [id number] / Description:Pulmonary artery Procedures Procedure Name Priority Date/Time Associated Diagnosis Comments COMPREHENSIVE METABOLIC PANEL (CMP) Routine 04/18/2022 2:39 PM EDT Atherosclerosis of [place] coronary artery of [place] heart with angina pectoris Essential hypertension Ischemic cardiomyopathy PAD (peripheral artery disease) from Last 3 Months or Most Recently Relevant to Health Maintenance Results * (ABNORMAL) Comprehensive metabolic panel (04/18/2022 2:39 PM EDT) SODIUM 143 133 - 146 mmol/L [facility] POTASSIUM 4.5 3.3 - 5.1 mmol/L [facility] CHLORIDE 100 96 - 108 mmol/L [facility] CO2 34 21 - 35 mmol/L [facility] BUN 38(H) 6 - 19 mg/dL [facility] CREATININE 1.40 0.5 - 1.5 mg/dL [facility] GLUCOSE 163(H) 70 - 99 mg/dL [facility] ALBUMIN 4.0 3.9 - 4.8 g/dL [facility] TOTAL PROTEIN 7.5 6.5 - 8.0 g/dL [facility] CALCIUM 10.1 8.4 - 10.3 mg/dL [facility] ALKALINE PHOSPHATASE 94 39 - 117 U/L [facility] TOTAL BILIRUBIN 0.6 0.0 - 1.2 mg/dL [facility] AST 26 0 - 37 U/L [facility] ALT 12 0 - 40 U/L [facility] GLOBULIN 3.5 1 - 4.8 g/dL [facility] EGFR 39(L) >59 mL/min/1.[address] [facility] Comment:Estimated glomerular filtration rate calculated using the CKD-EPI refit equation. ANION GAP 14 10 - 20 mmol/L [facility] Blood 04/18/2022 2:39 PM EDT 04/18/2022 2:42 PM EDT us Miguel Enciso MD LAB BLOOD BKR ORDERABLES Fi nal Result [facility] [address] [place] [address] from Last 3 Months or Most Recently Relevant to Health Maintenance Insurance MEDICARE PART A & B [place] [employer] PREFERRED HMO REPLACEMENT [facility] MEDICARE PART A & B [place] [employer] PREF[place]MO REPLACEMENT [facility] [place] [address] MEDICARE PART A & B [facility] MEDICARE PREFERRED HMO REPLACEMENT MEDICARE PART A & B [place] [employer]REF[employer]ED [employer]MO REPLACEMENT MEDICARE PART A & B [facility] MEDICARE PREFERRED HMO REPLACEMENT [facility] MEDICARE PART A & B [place] MEDIC[place] PREFERRED HMO REPLACEMENT MEDICARE PART A & B [place] [employer] PREFERRED HMO REPLACEMENT [facility] MEDICARE PART A & B [place] [employer] PREFERRED HMO REPLACEMENT [facility] MEDICARE PART A & B [place] PREFERRED HMO REPLACEMENT [facility] Care Teams Broach Setter Relationship Specialty Start Date End Date Dandre Chavez MD [address] [place] [address] PCP - General 09/05/17 Miguel Enciso MD [address] [place] [address] [email or web address] Cardiology 05/28/24 Additional Source Comments The information contained in this document represents components of the legal health record. It is not the complete legal health record.[facility]
--- OUTSIDE RECORDS SUMMARY | 2025-08-23 07:27 | XMS_ITS | Encounter Summary ---
Author Organization [facility] Address [address] [place] [address] Care Team Providers Care Web Assistant Name Role Phone Amina Burciaga MD Primary Care Provider [phone] Encounter Details Date Type Department Care Team (Late st Contact Info) Description 07/27/2024 Lab Requisition [facility] - Main Lab [address] [facility] [place] [address] Hortencia Mcclellan MD [address] [phone] Type 2 diabetes mellitus without complications (CMS/HCC [...] al Result [facility] [address] [place] [address], * (ABNORMAL) Complete blood count (07/28/2024 5:41 AM EST) [facility] WBC 4.1(L) 4.8 - 10.8 K/mcL [...] LAB HEMETOLOGY METHOD 07/28/2024 8:20 AM EST [facility] NRBC Absolute 0.00 <0.10 K/mcL LAB HEMETOLOGY METHOD 07/28/2024 8:20 AM EST [facility] Blood Venous blood specimen / Unknown Venipuncture / Unknown 07/28/2024 5:41 AM EST 07/28/2024 8:02 AM EST us Hortencia Mcclellan MD LAB BLOOD ORDERABLES Fin al Result [facility] [address] [place] [address], documented in this encounter Visit Diagnoses Diagnosis Type 2 diabetes mellitus without complications (CMS/HCC V24, CMS/HCC V28) Heart failure, unspecified (CMS/HCC V24, CMS/HCC V28) Heart failure, unspecified documented in this encounter Care Teams Web Assistant Relationship Specialty Start Date End Date Amina Burciaga MD [address] [place] [address] PCP - General Hospitalist Medicine 09/11/24 documented as of this encounter
--- OUTSIDE RECORDS SUMMARY | 2025-08-23 07:27 | XMS_ITS | Encounter Summary ---
Author Organization [facility], Address [address] [place] [address] Phone Care Team Providers Care Furniture Manager Name Role Phone Dandre Chavez MD Primary Care Provider [phone] Encounter Details Date Type Department Care Team (Late st Contact Info) Description 12/31/2022 Documentation Only [facility], [address] [place] [address] Melissa Delgadillo [address] [place] [phone] Social History Tobacco Use Types Packs/Day Years [...] on filedocumented in this encounter Care Teams Furniture Manager Relationship Specialty Start Date End Date Dandre Chavez MD [address] [place] [address], [address] [place], [place] PCP - General 07/07/19 documented as of this encounter
--- OUTSIDE RECORDS SUMMARY | 2025-08-23 07:27 | XMS_ITS | Encounter Summary ---
Author Organization [facility], Address [address] [place] [address] Phone Care Team Providers Care Litigation Associate Name Role Phone Dandre Chavez MD Primary Care Provider [phone] Encounter Details Date Type Department Care Team (Late st Contact Info) Description 01/14/2023 Documentation Only [facility], [address] [place] [address] Melissa Delgadillo [address] [place] [phone] Social History Tobacco Use Types Packs/Day Years [...] on filedocumented in this encounter Care Teams Litigation Associate Relationship Specialty Start Date End Date Dandre Chavez MD [address] [place] [address], [address] [place], [place] PCP - General 07/07/19 documented as of this encounter
--- OUTSIDE RECORDS SUMMARY | 2025-08-23 07:27 | XMS_ITS | Encounter Summary ---
Author Organization [facility] Address [address] [place] [address] Phone Care Team Providers Care Dining Room Hostess Name Role Phone Dandre Chavez MD Primary Care Provider [phone] Miguel Enciso MD Unavailable [phone] Encounter Details Date Type Department Care Team (Late st Contact Info) Description 08/18/2021 Procedure [facility] [address] [place], [place] [phone] Social History Tobacco Use Types Packs/Day Years [...] on filedocumented in this encounter Care Teams Dining Room Hostess Relationship Specialty Start Date End Date Dandre Chavez MD [address] [place] [phone] PCP - General 09/05/17 Miguel Enciso MD [address] [facility], [address] [place], [place] [phone] Cardiology 05/28/24 documented as of this encounter Additional Source Comments The information contained in this document represents components of the legal health record. It is not the complete legal health record.[facility]
--- OUTSIDE RECORDS SUMMARY | 2025-08-23 07:27 | XMS_ITS | Encounter Summary ---
Author Organization [facility] Address [address] [place] [address] Phone Care Team Providers Care Retail Equipment Associate Name Role Phone Dandre Chavez MD Primary Care Provider [phone] Miguel Enciso MD Unavailable [phone] Encounter Details Date Type Department Care Team (Late st Contact Info) Description 12/21/2022 Procedure [facility] [place] [facility] [address] [place], [place] [phone] Social History Tobacco Use Types Packs/Day Years [...] on filedocumented in this encounter Care Teams Retail Equipment Associate Relationship Specialty Start Date End Date Dandre Chavez MD [address] [place] [phone] PCP - General 09/05/17 Miguel Enciso MD [address] [facility], [address] [place], [place] [phone] Cardiology 05/28/24 documented as of this encounter Additional Source Comments The information contained in this document represents components of the legal health record. It is not the complete legal health record.[facility]
[2025-08-23 07:48] LABS: Anion Gap 19 (12-20); Blood Urea Nitrogen 82 mg/dL (9-16); Calcium 8.5 mg/dL (8.4-10.2); Carbon Dioxide 27 mmol/L (22-29); Chloride 89 mmol/L (96-108); Estimated Glomerular Filt Rate 19; Sodium 133 mmol/L (135-145)
[2025-08-23 08:08] LABS: Potassium 2.4 mmol/L (3.3-5.1)
== END 2025-08-23 07:20 | disposition home or self-care (01) ==
LOC: HO.MMNH2L 07:19
PROVIDERS: Visit Provider Physician Assistant Medical
DX: I50.33 Acute on chronic diastolic (congestive) heart failure (principal); N18.4 Chronic kidney disease, stage 4 (severe)
CPT/HCPCS: 36415; 80048; 85025

== ENCOUNTER 2025-08-25 05:47 | Outpatient (REF) | payer MEDICARE, SELFPAY ==
--- OUTSIDE RECORDS SUMMARY | 2018-12-31 04:05 | XMS_ITS | Continuity of Care Document ---
Author Organization [facility] Address [address] [address] Phone Care Team Providers Care Slot Shift Supervisor Name Role Phone Brodie Hinds DO Unavailable Unavailable Advance Directives Directive Yes / No Effective Date File Name No Information Encounters Encounter Description Practice Location Reason(s) For Visit Diagnoses Date Provider [facility], [address], [id number], [place] tel:[phone] [address] [place] [address] No Information 2018 Guzman Calloway. [address] [place] [address], [id number], [place]. tel:[phone] Family History Family Member Type Diagnosis Age [...]
--- OUTSIDE RECORDS SUMMARY | 2025-08-25 05:50 | XMS_ITS | Encounter Summary ---
Author Organization [facility] Address [address] [place] [address] Care Team Providers Care Pipe Maker Name Role Phone Amina Burciaga MD Primary Care Provider [phone] Encounter Details Date Type Department Care Team (Latest Contact Info) Description 09/07/2024 Lab Requisition [facility] - Main Lab 299 [facility] [place] [address] Amina Burciaga MD [address] [place] [address] Heart failure, unspecified (CMS/HCC V24, [...] unspecified Type 2 diabetes mellitus without complications ([facility]) documented in this encounter Results * Hemoglobin A1c (09/07/2024 6:24 AM EST) Pathologist [facility] Hemoglobin A1C 5.1 <6.5 % LAB CHEMISTRY METHOD 09/07/2024 11:[address] [facility] Mean Bld Glu Estim. 100 mg/dL LAB CHEMISTRY METHOD 09/07/2024 11:11 AM [facility] Blood Venous blood specimen / Unknown Venipuncture / Unknown 09/07/2024 6:24 AM EST 09/07/2024 8:12 AM EST Amina Burciaga MD LAB BLOOD ORDERABLES Final Resul t [facility] [address] [place] [address], * (ABNORMAL) Comprehensive metabolic panel (09/07/2024 6:24 AM EST) [facility] Sodium 140 133 - 145 mmol/L LAB [...] LAB BLOOD ORDERABLES Final Resul t [facility] [address] [place] [address], * (ABNORMAL) Complete blood count (09/07/2024 6:24 AM EST) [facility] Signature WBC 4.7(L) 4.8 - 10.8 [...] LAB HEMETOLOGY METHOD 09/07/2024 8:[address] [facility] NRBC Absolute 0.00 <0.10 K/mcL LAB HEMETOLOGY METHOD 09/07/2024 8:[address] [facility] Blood Venous blood specimen / Unknown Venipuncture / Unknown 09/07/2024 6:24 AM EST 09/07/2024 8:12 AM EST us Amina Burciaga MD LAB BLOOD ORDERABLES Final Resul t [facility] [address] [place] [address], documented in this encounter Visit Diagnoses Diagnosis Heart failure, unspecified (CMS/HCC V24, CMS/HCC V28) Heart failure, unspecified Chronic kidney disease, unspecified Type 2 diabetes mellitus without complications (CMS/HCC V24, CMS/HCC V28) documented in this encounter Care Teams Pipe Maker Relationship Specialty Start Date End Date Amina Burciaga MD [address] [place] [address] PCP - General Hospitalist Medicine 09/11/24 documented as of this encounter
--- OUTSIDE RECORDS SUMMARY | 2025-08-25 05:50 | XMS_ITS | Encounter Summary ---
Author Organization [facility] Address [address] [place] [address] Care Team Providers Care Computer Technology Trainer Name Role Phone Amina Burciaga MD Primary Care Provider [phone] Encounter Details Date Type Department Care Team (Latest Contact Info) Description 09/23/2024 Lab Requisition [facility] - Main Lab 299 [facility] [employer] [place] [address] Amina Burciaga MD [address] [place] [address] Type 2 diabetes mellitus with [...] Resul t [facility] [address] [place] [address], * (ABNORMAL) Comprehensive metabolic panel (09/23/2024 8:20 [...] Resul t [facility] [address] [place] [address], * (ABNORMAL) Complete blood count (09/23/2024 8:20 AM EST) [facility] WBC 6.2 4.8 - 10.8 [...] LAB HEMETOLOGY METHOD 09/23/2024 12:38 PM EST [facility] NRBC Absolute 0.00 <0.10 K/mcL LAB HEMETOLOGY METHOD 09/23/2024 12:38 PM EST [facility] Blood Venous blood specimen / Unknown Venipuncture / Unknown 09/23/2024 8:20 AM EST 09/23/2024 12:06 PM EST us Amina Burciaga MD LAB BLOOD ORDERABLES Final Resul t [facility] [address] [place] [address], documented in this encounter Visit Diagnoses Diagnosis Type 2 diabetes mellitus with unspecified complications (CMS/HCC V24, CMS/HCC V28) Unspecified systolic (congestive) heart failure (CMS/HCC V24, CMS/HCC V28) documented in this encounter Care Teams Computer Technology Trainer Relationship Specialty Start Date End Date Amina Burciaga MD [address] [place] [address] PCP - General Hospitalist Medicine 09/11/24 documented as of this encounter
--- OUTSIDE RECORDS SUMMARY | 2025-08-25 05:50 | XMS_ITS | Encounter Summary ---
Author Organization [facility] Address [address] [place] [address] Care Team Providers Care Porter Sample Case Name Role Phone Amina Burciaga MD Primary Care Provider [phone] Encounter Details Date Type Department Care Team (Late st Contact Info) Description 07/23/2024 Lab Requisition [facility] - Main Lab [address] [place] [address] Hortencia Mcclellan MD [address] [id number] Chronic kidney disease, unspecified; Type 2 diabetes [...] mmol/L LAB CHEMISTRY METHOD 07/23/2024 9:[address] [facility] CO2 27 21 - 32 mmol/L LAB CHEMISTRY METHOD 07/23/2024 9:[address] [facility] Anion Gap 6 3 - 11 LAB CHEMISTRY METHOD 07/23/2024 9:[address] [facility] Glucose 64(L) 70 - 100 mg/dL LAB CHEMISTRY METHOD 07/23/2024 9:[address] [facility] BUN 62(H) 5 - 25 mg/dL LAB CHEMISTRY METHOD 07/23/2024 9:[address] [facility] Creatinine 2.70(H) 0.50 - 1.10 mg/dL LAB CHEMISTRY METHOD 07/23/2024 9:[address] [facility] eGFR 18(L) >=60 mL/min/1. 73m2 LAB CHEMISTRY METHOD 07/23/2024 9:[address] [facility] Comment:Calculation based on the Chronic Kidney Disease Epidemiology Collaboration (CKD-EPI) equation refit without adjustment for race. BUN/Creatinine Ratio 23.0 LAB CHEMISTRY METHOD 07/23/2024 9:[address] [facility] Calcium 9.2 8.5 - 10.5 mg/dL LAB CHEMISTRY METHOD 07/23/2024 9:[address] [facility] Blood Venous blood specimen / Unknown Venipuncture / Unknown 07/23/2024 5:52 AM EST 07/23/2024 8:17 AM EST us Hortencia Mcclellan MD LAB BLOOD ORDERABLES Fin al Result [facility] [address] [place] [address], documented in this encounter Visit Diagnoses Diagnosis Chronic kidney disease, unspecified Type 2 diabetes mellitus without complications (CMS/HCC V24, CMS/HCC V28) documented in this encounter Care Teams Porter Sample Case Relationship Specialty Start Date End Date Amina Burciaga MD [address] [place] [address] PCP - General Hospitalist Medicine 09/11/24 documented as of this encounter
--- OUTSIDE RECORDS SUMMARY | 2025-08-25 05:50 | XMS_ITS | Encounter Summary ---
Author Organization [facility], Address [address] [place] [address] Phone Care Team Providers Care Lead Embedded Software Engineer Name Role Phone Dandre Chavez MD Primary Care Provider [phone] Encounter Details Date Type Department Care Team (Late st Contact Info) Description 09/25/2021 Documentation Only [facility], [address] [place] [address] Faina Villegas PA Social History Tobacco Use [...] filedocumented in this encounter Care Teams Lead Embedded Software Engineer Relationship Specialty Start Date End Date Dandre Chavez MD [address] [place] [address], [address] [place], [place] PCP - General 07/07/19 documented as of this encounter
--- OUTSIDE RECORDS SUMMARY | 2025-08-25 05:50 | XMS_ITS | Encounter Summary ---
Author Organization [facility], Address [address] [place] [address] Phone Care Team Providers Care Podiatric Physician Name Role Phone Dandre Chavez MD Primary Care Provider [phone] Encounter Details Date Type Department Care Team (Late st Contact Info) Description 10/12/2021 Documentation Only [facility], [address] [place] [address] Faina Villegas PA Social History Tobacco Use [...] on filedocumented in this encounter Care Teams Podiatric Physician Relationship Specialty Start Date End Date Dandre Chavez MD [address] [place] [address], [address] [place], [place] PCP - General 07/07/19 documented as of this encounter
--- OUTSIDE RECORDS SUMMARY | 2025-08-25 05:50 | XMS_ITS | Encounter Summary ---
Author Organization [facility], Address [address] [place] [address] Phone Care Team Providers Care Black Oxide Coating Equipment Tender Name Role Phone Dandre Chavez MD Primary Care Provider [phone] Encounter Details Date Type Department Care Team (Late st Contact Info) Description 02/09/2022 Documentation Only [facility], [address] [place] [address] Faina Villegas PA Social History Tobacco Use [...] on filedocumented in this encounter Care Teams Black Oxide Coating Equipment Tender Relationship Specialty Start Date End Date Dandre Chavez MD [address] [place] [address], [address] [place], [place] PCP - General 07/07/19 documented as of this encounter
--- OUTSIDE RECORDS SUMMARY | 2025-08-25 05:50 | XMS_ITS | Clinical Summary ---
Author Organization [address] Address [address] [place] [address] Phone Care Team Providers Care Microsoft Bi Consultant Name Role Phone Amina Burciaga MD Primary Care Provider [phone] Immunizations Immunization Administration Dates Next Due Pfizer [...] City/[facility]/ZIP Co de Phone Number [facility] [address] [place] [address], [place] [phone] * Hemoglobin A1c (09/23/2024 8:20 AM EST) [...] ORDERABLES Final Resul t Performing Organization Address City/[facility]/ZIP Co de Phone Number [facility] [address] [place] [address], [place] [phone] from Last 3 Months or Most Recently Relevant to Health Maintenance Insurance [place] Care Teams Microsoft Bi Consultant Relationship Specialty Start Date End Date Amina Burciaga MD [address] [place] [address] PCP - General Hospitalist Medicine 09/11/24
--- OUTSIDE RECORDS SUMMARY | 2025-08-25 05:50 | XMS_ITS | Encounter Summary ---
Author Organization [facility], Address [address] [place] [address] Phone Care Team Providers Care Area Sales Manager Name Role Phone Dandre Chavez MD Primary Care Provider [phone] Encounter Details Date Type Department Care Team (Late st Contact Info) Description 02/08/2022 Documentation Only [facility], [address] [place] [address] Faina Villegas PA Social History Tobacco Use [...] on filedocumented in this encounter Care Teams Area Sales Manager Relationship Specialty Start Date End Date Dandre Chavez MD [address] [place] [address], [address] [place], [place] PCP - General 07/07/19 documented as of this encounter
--- OUTSIDE RECORDS SUMMARY | 2025-08-25 05:50 | XMS_ITS | Encounter Summary ---
Author Organization [facility], Address [address] [place] [address] Phone Care Team Providers Care Lead Cook Name Role Phone Dandre Chavez MD Primary Care Provider [phone] Encounter Details Date Type Department Care Team (Late st Contact Info) Description 02/09/2022 Documentation Only [facility], [address] [place] [address] Faina Villegas PA Social History Tobacco Use [...] filedocumented in this encounter Care Teams Lead Cook Relationship Specialty Start Date End Date Dandre Chavez MD [address] [place] [address], [address] [place], [place] PCP - General 07/07/19 documented as of this encounter
--- OUTSIDE RECORDS SUMMARY | 2025-08-25 05:50 | XMS_ITS | Clinical Summary ---
Author Organization [facility] Prior to 01/30/[address] [place] [address] Care Team Providers Care Cleaning Laborer Name Role Phone Dandre Chavez MD Primary Care Provider [phone] Allergies Active Allergy Reactions Criticality Noted Date [...] age to complete this topic Care Teams Cleaning Laborer Relationship Specialty Start Date End Date Dandre Chavez MD [address] [place] [address] [place] [address] PCP - General Internal Medicine 11/06/22
--- OUTSIDE RECORDS SUMMARY | 2025-08-25 05:50 | XMS_ITS | Encounter Summary ---
Author Organization [facility] Address [address] [place] [address] Phone Care Team Providers Care Cad Specialist Name Role Phone Dandre Chavez MD Primary Care Provider [phone] Miguel Enciso MD Unavailable [phone] Encounter Details Date Type Department Care Team (Latest Contact Info) Description 12/16/2018 Ancillary Orders [facility] Non-Invasic Cardiology [address] [place], [place] [phone] Cathy Browning NP [address] [place] [address] Atherosclerosis of [place] coronary artery of [place] heart with angina pectoris Social History Tobacco [...] AM EDT) Max BP Systolic 150 mmHg [facility] Max BP Diastolic 80 mmHg [facility] Max HR 89 BPM [facility] Resting HR 78 BPM [facility] Resting BP Systolic 150 mmHg [facility] Resting BP Diastolic 80 mmHg [facility] Peak METS 1.0 METS [facility] Peak HR 83 BPM [facility] Anatomical Region Laterality Modality Heart Other [...] in our cardiology office on 12/26/18. Cathy Brwoning NP, MPH. 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 It is not the complete legal health record.[facility]
--- OUTSIDE RECORDS SUMMARY | 2025-08-25 05:50 | XMS_ITS | Encounter Summary ---
Author Organization [facility] Address [address] [place] [address] Care Team Providers Care Rn Clinical Name Role Phone Amina Burciaga MD Primary Care Provider [phone] Encounter Details Date Type Department Care Team (Late st Contact Info) Description 08/03/[address] [facility] - Main Lab 299 [facility] [place] [address] Hortencia Mcclellan MD [address] [id number] Type 2 diabetes mellitus without complications (CMS/HCC [...] mmol/L LAB CHEMISTRY METHOD 08/04/2024 9:42 AM [facility] Potassium 3.6 3.5 - 5.5 mmol/L LAB CHEMISTRY METHOD 08/04/2024 9:42 AM [facility] Chloride 106 96 - 110 mmol/L LAB CHEMISTRY METHOD 08/04/2024 9:42 AM [facility] CO2 29 21 - 32 mmol/L LAB CHEMISTRY METHOD 08/04/2024 9:42 AM [facility] Anion Gap 8 3 - 11 LAB CHEMISTRY METHOD 08/04/2024 9:42 AM [facility] Glucose 64(L) 70 - 100 mg/dL LAB CHEMISTRY METHOD 08/04/2024 9:42 AM [facility] BUN 44(H) 5 - 25 mg/dL LAB CHEMISTRY METHOD 08/04/2024 9:42 AM [facility] Creatinine 2.43(H) 0.50 - 1.10 mg/dL LAB CHEMISTRY METHOD 08/04/2024 9:42 AM [facility] eGFR 20(L) >=60 mL/min/1. 73m2 LAB CHEMISTRY METHOD 08/04/2024 9:42 AM [facility] Comment:Calculation based on the Chronic Kidney Disease Epidemiology Collaboration (CKD-EPI) equation refit without adjustment for race. BUN/Creatinine Ratio 18.1 LAB CHEMISTRY METHOD 08/04/2024 9:42 AM [facility] Calcium 8.8 8.5 - 10.5 mg/dL LAB CHEMISTRY METHOD 08/04/2024 9:42 AM [facility] Blood Venous blood specimen / Unknown Venipuncture / Unknown 08/04/2024 6:38 AM EST 08/04/2024 8:24 AM EST us Hortencia Mcclellan MD LAB BLOOD ORDERABLES Fin al Result [facility] [address] [place] [address], * (ABNORMAL) Complete blood count (08/04/2024 6:38 AM EST) [facility] WBC 4.5(L) 4.8 - 10.8 K/mcL LAB HEMETOLOGY METHOD 08/04/2024 9:19 AM [facility] RBC 3.20(L) 3.80 - 4.80 M/mcL LAB HEMETOLOGY METHOD 08/04/2024 9:19 AM [facility] Hemoglobin 9.0(L) 11.5 - 16.0 g/dL LAB HEMETOLOGY METHOD 08/04/2024 9:19 AM [facility] Hematocrit 31.8(L) 35.0 - 47.0 % LAB HEMETOLOGY METHOD 08/04/2024 9:19 AM [facility] MCV 100.0(H) 79.0 - 98.0 FL LAB HEMETOLOGY METHOD 08/04/2024 9:19 AM [facility] MCH 28.3 27.0 - 32.0 pcg LAB HEMETOLOGY METHOD 08/04/2024 9:19 AM [facility] MCHC 28.3(L) 32.0 - 37.0 g/dL LAB HEMETOLOGY METHOD 08/04/2024 9:19 AM [facility] RDW 18.9(H) 11.0 - 15.0 % LAB HEMETOLOGY METHOD 08/04/2024 9:19 AM [facility] Platelets 188 130 - 400 K/mcL LAB HEMETOLOGY METHOD 08/04/2024 9:19 AM [facility] MPV 10.6 7.0 - 11.0 FL LAB HEMETOLOGY METHOD 08/04/2024 9:19 AM [facility] NRBC 0.0 <1.0 % LAB HEMETOLOGY METHOD 08/04/2024 9:19 AM EST [facility] NRBC Absolute 0.00 <0.10 K/mcL LAB HEMETOLOGY METHOD 08/04/2024 9:19 AM EST [facility] Blood Venous blood specimen / Unknown Venipuncture / Unknown 08/04/2024 6:38 AM EST 08/04/2024 8:24 AM EST us Hortencia Mcclellan MD LAB BLOOD ORDERABLES Fin al Result [facility] [address] [place] [address], documented in this encounter Visit Diagnoses Diagnosis Type 2 diabetes mellitus without complications (CMS/HCC V24, CMS/HCC V28) Heart failure, unspecified (CMS/HCC V24, CMS/HCC V28) Heart failure, unspecified documented in this encounter Care Teams Rn Clinical Relationship Specialty Start Date End Date Amina Burciaga MD [address] [place] [address] PCP - General Hospitalist Medicine 09/11/24 documented as of this encounter
--- OUTSIDE RECORDS SUMMARY | 2025-08-25 05:50 | XMS_ITS | Encounter Summary ---
Author Organization [facility] Address [address] [place] [address] Care Team Providers Care Flume Worker Name Role Phone Amina Burciaga MD Primary Care Provider [phone] Encounter Details Date Type Department Care Team (Late st Contact Info) Description 09/30/2024 Lab Requisition [facility] - Main Lab 299 [facility] [place] [address] Isaac Stark MD [address] [place] [address] [place] [address] Heart failure, unspecified [...] Vitamin B12 (09/30/2024 9:57 AM EST) [facility] Vitamin B-12 1,028(H) 250 - 900 pcg/mL LAB CHEMISTRY METHOD 09/30/2024 1:04 PM [facility] Blood Venous blood specimen / Unknown Venipuncture / Unknown 09/30/2024 9:57 AM EST 09/30/2024 10:50 AM EST us Isaac Stark MD LAB BLOOD ORDERABLES Final Resu lt [facility] [address] [place] [address], [place] [phone] * (ABNORMAL) Comprehensive metabolic panel (09/30/2024 9:57 AM EST) [facility] Sodium 138 133 - 145 mmol/L [...] MD LAB BLOOD ORDERABLES Final Resu lt [facility] [address] [place] [address], * (ABNORMAL) Complete blood count (09/30/2024 9:57 AM EST) [facility] WBC 5.9 4.8 - 10.8 K/mcL [...] LAB HEMETOLOGY METHOD 09/30/2024 12:25 PM EST [facility] Blood Venous blood specimen / Unknown Venipuncture / Unknown 09/30/2024 9:57 AM EST 09/30/2024 10:50 AM EST us Isaac Stark MD LAB BLOOD ORDERABLES Final Resu lt Performing Organization Address City/[facility]/ZIP Co de Phone Number [facility] [address] [place] [address], [place] [phone] * Vitamin D 25 hydroxy (09/30/2024 9:57 AM EST) Vit D, 25-Hydroxy 54.9 30.0 - 80.0 ng/mL LAB CHEMISTRY METHOD 09/30/2024 12:48 PM EST [facility] Blood Venous blood specimen / Unknown Venipuncture / Unknown 09/30/2024 9:57 AM EST 09/30/2024 10:50 AM EST us Isaac Stark MD LAB BLOOD ORDERABLES Final Resu lt Performing Organization Address [facility]/ZIP Co de Phone Number [facility] [address] [place] [address], [place] [phone] documented in this encounter Visit Diagnoses Diagnosis Heart failure, unspecified (CMS/HCC V24, CMS/HCC V28) Heart failure, unspecified Vitamin D deficiency, unspecified documented in this encounter Care Teams Flume Worker Relationship Specialty Start Date End Date Amina Burciaga MD [address] [place] [phone] PCP - General Hospitalist Medicine 09/11/24 documented as of this encounter
--- OUTSIDE RECORDS SUMMARY | 2025-08-25 05:50 | XMS_ITS | Encounter Summary ---
Author Organization [facility], Address [address] [place] [address] Phone Care Team Providers Care Waste Oil Pumper Name Role Phone Dandre Chavez MD Primary Care Provider [phone] Encounter Details Date Type Department Care Team (Late st Contact Info) Description 10/10/2021 Documentation Only [facility], [address] [place] [address] Faina Villegas PA Social History Tobacco Use [...] on filedocumented in this encounter Care Teams Waste Oil Pumper Relationship Specialty Start Date End Date Dandre Chavez MD [address] [place] [address], [address] [place], [place] PCP - General 07/07/19 documented as of this encounter
--- OUTSIDE RECORDS SUMMARY | 2025-08-25 05:50 | XMS_ITS | Encounter Summary ---
Author Organization [facility] Address [address] [place] [address] Care Team Providers Care Environmental Studies Faculty Member Name Role Phone Amina Burciaga MD Primary Care Provider [phone] Encounter Details Date Type Department Care Team (Latest Contact Info) Description 09/11/[address] [facility] - Main Lab 299 [facility] [place] [address] Amina Burciaga MD [address] [place] [address] Other truck terminal manager (current) drug therapy; Type 2 diabetes mellitus [...] COUNT Routine 09/11/2024 9:47 AM EST Other truck terminal manager (current) drug therapy Type 2 diabetes mellitus [...] Results * Magnesium (09/11/2024 9:47 AM EST) [facility] Magnesium 2.1 1.9 - 2.6 mg/dL LAB CHEMISTRY METHOD 09/11/2024 12:[address] [facility] Blood Venous blood specimen / Unknown Venipuncture / Unknown 09/11/2024 9:47 AM EST 09/11/2024 11:29 AM EST Amina Burciaga MD LAB BLOOD ORDERABLES Final Resul t [facility] [address] [place] [address], * (ABNORMAL) Basic metabolic panel (09/11/2024 9:47 AM EST) [facility] Sodium 137 133 - 145 [...] t [facility] [address] [place] [address], * (ABNORMAL) Complete blood count (09/11/2024 9:47 [...] LAB HEMETOLOGY METHOD 09/11/2024 11:47 AM EST [facility] MCH 29.2 27.0 - 32.0 pcg LAB HEMETOLOGY METHOD 09/11/2024 11:[address] [facility] MCHC 28.5(L) 32.0 - 37.0 g/dL LAB HEMETOLOGY METHOD 09/11/2024 11:47 AM EST [facility] RDW 20.6(H) 11.0 - 15.0 % LAB HEMETOLOGY METHOD 09/11/2024 11:47 AM EST [facility] Platelets 180 130 - 400 K/mcL LAB HEMETOLOGY METHOD 09/11/2024 11:[address] [facility] MPV 9.9 7.0 - 11.0 FL LAB HEMETOLOGY METHOD 09/11/2024 11:47 AM EST [facility] [...] t [facility] [address] [place] [address], documented in this encounter Visit Diagnoses Diagnosis Other jail (current) drug therapy Type 2 diabetes mellitus without complications (CMS/HCC V24, CMS/HCC V28) Heart failure, unspecified (CMS/HCC V24, CMS/HCC V28) Heart failure, unspecified documented in this encounter Care Teams Environmental Studies Faculty Member Relationship Specialty Start Date End Date Amina Burciaga MD [address] [place] [address] PCP - General Hospitalist Medicine 09/11/24 documented as of this encounter
--- OUTSIDE RECORDS SUMMARY | 2025-08-25 05:51 | XMS_ITS | Encounter Summary ---
Author Organization [facility], Address [address] [place] [address] Phone Care Team Providers Care Egg Producer Name Role Phone Dandre Chavez MD Primary Care Provider [phone] Encounter Details Date Type Department Care Team (Late st Contact Info) Description 01/14/2023 Documentation Only [facility], [address] [place] [address] Melissa Delgadillo [address] [place] [phone] Social History Tobacco Use Types Packs/Day Years [...] on filedocumented in this encounter Care Teams Egg Producer Relationship Specialty Start Date End Date Dandre Chavez MD [address] [place] [address], [address] [place], [place] PCP - General 07/07/19 documented as of this encounter
--- OUTSIDE RECORDS SUMMARY | 2025-08-25 05:51 | XMS_ITS | Encounter Summary ---
Author Organization [facility] Address [address] [place] [address] Phone Care Team Providers Care Document Design Specialist Name Role Phone Dandre Chavez MD Primary Care Provider [phone] Miguel Enciso MD Unavailable [phone] Encounter Details Date Type Department Care Team (Late st Contact Info) Description 12/21/2022 Procedure [facility] [address] [place], [place] [phone] Social History Tobacco Use Types Packs/Day Years [...] on filedocumented in this encounter Care Teams Document Design Specialist Relationship Specialty Start Date End Date Dandre Chavez MD [address] [place] [id number] PCP - General 09/05/17 Miguel Enciso MD [address] [facility], [address] [place], [place] [phone] Cardiology 05/28/24 documented as of this encounter Additional Source Comments The information contained in this document represents components of the legal health record. It is not the complete legal health record.[facility]
--- OUTSIDE RECORDS SUMMARY | 2025-08-25 05:51 | XMS_ITS | Encounter Summary ---
Author Organization [facility], Address [address] [place] [address] Phone Care Team Providers Care Bacon De Rinder Name Role Phone Dandre Chavez MD Primary Care Provider [phone] Encounter Details Date Type Department Care Team (Late st Contact Info) Description 08/02/2022 Documentation Only [facility], [address] [place] [address] Faina Villegas PA Social History Tobacco Use [...] on filedocumented in this encounter Care Teams Bacon De Rinder Relationship Specialty Start Date End Date Dandre Chavez MD [address] [place] [address], [address] [place], [place] PCP - General 07/07/19 documented as of this encounter
--- OUTSIDE RECORDS SUMMARY | 2025-08-25 05:51 | XMS_ITS | Encounter Summary ---
Author Organization [facility] [place], Address [address] [place] [address] Phone Care Team Providers Care Extension Clerk Name Role Phone Dandre Chavez MD Primary Care Provider [phone] Encounter Details Date Type Department Care Team (Late st Contact Info) Description 12/31/2022 Documentation Only [facility], [address] [place] [address] Melissa Delgadillo [address] [place] [phone] Social History Tobacco Use Types Packs/Day Years [...] filedocumented in this encounter Care Teams Extension Clerk Relationship Specialty Start Date End Date Dandre Chavez MD [address] [place] [address], [address] [place], [place] PCP - General 07/07/19 documented as of this encounter
--- OUTSIDE RECORDS SUMMARY | 2025-08-25 05:51 | XMS_ITS | Encounter Summary ---
Author Organization [facility] Address [address] [place] [address] Phone Care Team Providers Care Health Information Management Director Name Role Phone Dandre Chavez MD Primary Care Provider [phone] Miguel Enciso MD Unavailable [phone] Encounter Details Date Type Department Care Team (Late st Contact Info) Description 04/03/2022 Procedure Pass [facility] [address] [place] [address] Social History Tobacco Use Types Packs/Day Years [...] filedocumented in this encounter Care Teams Health Information Management Director Relationship Specialty Start Date End Date Dandre Chavez MD [address] [place] [address] PCP - General 09/05/17 Miguel Enciso MD [address] [place] [address], [address] [place], [place] [id number] [email or web address] Cardiology 05/28/24 documented as of this encounter Additional Source Comments The information contained in this document represents components of the legal health record. It is not the complete legal health record.[facility]
--- OUTSIDE RECORDS SUMMARY | 2025-08-25 05:51 | XMS_ITS | Encounter Summary ---
Author Organization [facility], Address [address] [place] [address] Phone Care Team Providers Care Site Worker Name Role Phone Dandre Chavez MD Primary Care Provider [phone] Encounter Details Date Type Department Care Team (Late st Contact Info) Description 10/30/2022 Documentation Only [facility], [address] [place] [address] Melissa Delgadillo [address] [place] [phone] Social History Tobacco Use Types Packs/Day Years [...] filedocumented in this encounter Care Teams Site Worker Relationship Specialty Start Date End Date Dandre Chavez MD [address] [place] [address], [address] [place], [place] PCP - General 07/07/19 documented as of this encounter
--- OUTSIDE RECORDS SUMMARY | 2025-08-25 05:51 | XMS_ITS | Encounter Summary ---
Author Organization [facility] [place], Address [address] [place] [address] Phone Care Team Providers Care Marketing Project Manager Name Role Phone Dandre Chavez MD Primary Care Provider [phone] Encounter Details Date Type Department Care Team (Late st Contact Info) Description 09/07/2022 Documentation Only [facility], [address] [place] [address] Faina Villegas PA Social History Tobacco Use [...] on filedocumented in this encounter Care Teams Marketing Project Manager Relationship Specialty Start Date End Date Dandre Chavez MD [address] [place] [address], [address] [place], [place] PCP - General 07/07/19 documented as of this encounter
--- OUTSIDE RECORDS SUMMARY | 2025-08-25 05:51 | XMS_ITS | Encounter Summary ---
Author Organization [facility] Address [address] [place] [address] Care Team Providers Care Dishwasher Name Role Phone Amina Burciaga MD Primary Care Provider Encounter Details Date Type Department Care Team (Late st Contact Info) Description 07/10/2024 Lab Requisition [facility] - Main Lab [address] [facility] [place] [address] Lloyd Jernigan MD [address] [place] [address] Unspecified dementia, unspecified severity, without behavioral disturbance, [...] Final R esult [facility] [address] [place] [address], * (ABNORMAL) Complete blood count (07/10/2024 6:29 [...] R esult Performing Organization Address City/[facility]/ZIP Co de Phone Number [facility] [address] [place] [address], [place] [phone] * Hemoglobin A1c (07/10/2024 6:29 AM EST) [...] Final R esult [facility] [address] [place] [address], [place] [phone] documented in this encounter Visit Diagnoses Diagnosis Unspecified dementia, unspecified severity, without behavioral disturbance, psychotic disturbance, mood disturbance, and anxiety (CMS/HCC V24, CMS/HCC V28) documented in this encounter Care Teams Dishwasher Relationship Specialty Start Date End Date Amina Burciaga MD [address] [place] [address] PCP - General Hospitalist Medicine 09/11/24 documented as of this encounter
--- OUTSIDE RECORDS SUMMARY | 2025-08-25 05:51 | XMS_ITS | Encounter Summary ---
Author Organization [facility] [place], Address [address] [place] [address] Phone Care Team Providers Care Missile Facilities Repairer Name Role Phone Dandre Chavez MD Primary Care Provider [phone] Encounter Details Date Type Department Care Team (Late st Contact Info) Description 08/06/2023 Documentation Only [facility], [address] [place] [address] Desi Rodriguez Social History Tobacco Use Types [...] on filedocumented in this encounter Care Teams Missile Facilities Repairer Relationship Specialty Start Date End Date Dandre Chavez MD [address] [place] [address], [address] [place], [place] PCP - General 07/07/19 documented as of this encounter
--- OUTSIDE RECORDS SUMMARY | 2025-08-25 05:51 | XMS_ITS | Encounter Summary ---
Author Organization [facility] Address [address] [place], [place] [address] [place] [address] Phone Care Team Providers Care Community Development Specialist Name Role Phone Dandre Chavez MD Primary Care Provider [phone] Miguel Enciso MD Unavailable [phone] Encounter Details Date Type Department Care Team (Late st Contact Info) Description 07/01/2024 Procedure Pass [facility] Referral Images [address] [facility] [address] [place] [address] Social History Tobacco Use Types Packs/Day Years [...] filedocumented in this encounter Care Teams Community Development Specialist Relationship Specialty Start Date End Date Dandre Chavez MD [address] [place] [address] PCP - General 09/05/17 Miguel Enciso MD [address] [place] [address] [email or web address] Cardiology 05/28/24 documented as of this encounter Additional Source Comments The information contained in this document represents components of the legal health record. It is not the complete legal health record.[facility]
--- OUTSIDE RECORDS SUMMARY | 2025-08-25 05:51 | XMS_ITS | Encounter Summary ---
Author Organization [facility] Address [address] [place] [address] Care Team Providers Care Instructional Support Technician Name Role Phone Amina Burciaga MD Primary Care Provider [phone] Encounter Details Date Type Department Care Team (Late st Contact Info) Description 07/27/2024 Lab Requisition [facility] - Main Lab [address] [facility] [place] [address] Hortencia Mcclellan MD [address] [facility] 1 [place], [place] [id number] Type 2 diabetes mellitus without complications (CMS/HCC [...] [facility] [address] [place] [address], * (ABNORMAL) Complete blood count (07/28/2024 5:41 AM EST) [facility] WBC 4.1(L) 4.8 - 10.8 K/mcL [...] LAB HEMETOLOGY METHOD 07/28/2024 8:20 AM EST [facility] NRBC Absolute 0.00 <0.10 K/mcL LAB HEMETOLOGY METHOD 07/28/2024 8:20 AM EST [facility] LAB Blood Venous blood specimen / Unknown Venipuncture / Unknown 07/28/2024 5:41 AM EST 07/28/2024 8:02 AM EST us Hortencia Mcclellan MD LAB BLOOD ORDERABLES Fin al Result [facility] [address] [place] [address], documented in this encounter Visit Diagnoses Diagnosis Type 2 diabetes mellitus without complications (CMS/HCC V24, CMS/HCC V28) Heart failure, unspecified (CMS/HCC V24, CMS/HCC V28) Heart failure, unspecified documented in this encounter Care Teams Instructional Support Technician Relationship Specialty Start Date End Date Amina Burciaga MD [address] [place] [address] PCP - General Hospitalist Medicine 09/11/24 documented as of this encounter
--- OUTSIDE RECORDS SUMMARY | 2025-08-25 05:51 | XMS_ITS | Clinical Summary ---
Author Organization [facility] Address [address] [place] [address] Phone Care Team Providers Care Field Examiner Name Role Phone Dandre Chavez MD Primary Care Provider [phone] Miguel Enciso MD Unavailable [phone] Allergies Active Allergy Reactions Criticality Noted Date [...] Active ferrous sulfate 325 mg (65 mg [place] iron) EC tablet Take 325 mg by [...] focus on healthy food choices. Atherosclerosis of [place] co ronary artery of [place] heart with angina pectoris 10/28/2018 Assessment & [...] (04/14/2020 10:40 PM EDT): History of inferior [place] in 2013 with a stent to her [...] LAD. She presented with a non-ST relation [place] September 2018 and had a new culprit [...] will need to have this completed at [facility]. She is aware that this is [...] December. She will have this completed at [facility] due to having her stress test [...] this topic Medical Devices Implanted Type Area Industrial Relations Specialist Device Identifier Shelf Expiration Date Model / Serial / Lot Sensor Pulmonary Artery Delivery System Cardiomems - [id number] Implanted:Qt y: 1 on 04/03/2022 by Miguel Enciso MD at [facility] Implantable Monitor Left: Arterial [employer] [id number] 12/15/2023 CM PATIENT SYSTEM / [id number] / Description:Pulmonary artery Procedures Procedure Name Priority Date/Time Associated Diagnosis Comments COMPREHENSIVE METABOLIC PANEL (CMP) Routine 04/18/2022 2:39 PM EDT Atherosclerosis of [place] coronary artery of [place] heart with angina pectoris Essential hypertension Ischemic cardiomyopathy PAD (peripheral artery disease) from Last 3 Months or Most Recently Relevant to Health Maintenance Results * (ABNORMAL) Comprehensive metabolic panel (04/18/2022 2:39 PM EDT) SODIUM 143 133 - 146 mmol/L [facility] POTASSIUM 4.5 3.3 - 5.1 mmol/L [facility] CHLORIDE 100 96 - 108 mmol/L [facility] CO2 34 21 - 35 mmol/L [facility] BUN 38(H) 6 - 19 mg/dL [facility] CREATININE 1.40 0.5 - 1.5 mg/dL [facility] GLUCOSE 163(H) 70 - 99 mg/dL [facility] ALBUMIN 4.0 3.9 - 4.8 g/dL [facility] TOTAL PROTEIN 7.5 6.5 - 8.0 g/dL [facility] CALCIUM 10.1 8.4 - 10.3 mg/dL [facility] ALKALINE PHOSPHATASE 94 39 - 117 U/L [facility] TOTAL BILIRUBIN 0.6 0.0 - 1.2 mg/dL [facility] AST 26 0 - 37 U/L [facility] ALT 12 0 - 40 U/L [facility] GLOBULIN 3.5 1 - 4.8 g/dL [facility] EGFR 39(L) >59 mL/min/1.7 3m2 [facility] Comment:Estimated glomerular filtration rate calculated using the CKD-EPI refit equation. ANION GAP 14 10 - 20 mmol/L [facility] Blood 04/18/2022 2:39 PM EDT 04/18/2022 2:42 PM EDT us Miguel Enciso MD LAB BLOOD BKR ORDERABLES Fi nal Result [facility] [address] [place] [address] from Last 3 Months or Most Recently Relevant to Health Maintenance Insurance MEDICARE PART A & B [place] MED[place]ARE PREFERRED HMO REPLACEMENT [facility] MEDICARE PART A & B [place] PREFERRED HMO REPLACEMENT [facility] [place] [address] MEDICARE PART A & B [facility] MEDICARE PREFERRED HMO REPLACEMENT MEDICARE PART A & B [place] [employer] PREF[employer]ED HMO REPLACEMENT MEDICARE PART A & B [facility] MEDICARE PREFERRED HMO REPLACEMENT [facility] MEDICARE PART A & B [place] MEDICARE PREFERRED HMO REPLACEMENT MEDICARE PART A & B [place] MEDICARE PREFERRED HMO REPLACEMENT [facility] MEDICARE PART A & B [place] MED[place]ARE PREFERRED HMO REPLACEMENT [facility] MEDICARE PART A & B [place] MEDIC[place] PREFERRED HMO REPLACEMENT [facility] Care Teams Field Examiner Relationship Specialty Start Date End Date Dandre Chavez MD [address] [place] [address] PCP - General 09/05/17 Miguel Enciso MD [address] [place] [address] [email or web address] Cardiology 05/28/24 Additional Source Comments The information contained in this document represents components of the legal health record. It is not the complete legal health record.[facility]
--- OUTSIDE RECORDS SUMMARY | 2025-08-25 05:51 | XMS_ITS | Encounter Summary ---
Author Organization [facility] Address [address] [place] [address] Phone Care Team Providers Care Lens Generator Name Role Phone Dandre Chavez MD Primary Care Provider [phone] Miguel Enciso MD Unavailable [phone] Encounter Details Date Type Department Care Team (Late st Contact Info) Description 09/18/2019 Ancillary Orders [facility] [address] [facility] 3rd Floor [place], [place] [phone] Miguel Enciso MD [address] [place] [address], [address] [place], [place] [phone] [email or web address] PVD (peripheral vascular disease) Social History Tobacco [...] disease documented in this encounter Care Teams Lens Generator Relationship Specialty Start Date End Date Dandre Chavez MD [address] [place] [address] PCP - General 09/05/17 Miguel Enciso MD [address] [place] [address] Cardiology 05/28/24 documented as of this encounter Additional Source Comments The information contained in this document represents components of the legal health record. It is not the complete legal health record.[facility]
--- OUTSIDE RECORDS SUMMARY | 2025-08-25 05:51 | XMS_ITS | Encounter Summary ---
Author Organization [facility] Address [address] [place] [address] Care Team Providers Care Cyber Operator Name Role Phone Amina Burciaag MD Primary Care Provider [phone] Encounter Details Date Type Department Care Team (Late st Contact Info) Description 08/10/2024 Lab Requisition [facility] - Main Lab [address] [facility] [place] [address] Hortencia Mcclellan MD [address] [id number] Type 2 diabetes mellitus without complications (CMS/HCC [...] unspecified documented in this encounter Care Teams Cyber Operator Relationship Specialty Start Date End Date Amina Burciaga MD [address] [place] [address] PCP - General Hospitalist Medicine 09/11/24 documented as of this encounter
--- OUTSIDE RECORDS SUMMARY | 2025-08-25 05:51 | XMS_ITS | Encounter Summary ---
Author Organization [facility] Address [address] [place] [address] Phone Care Team Providers Care Field Aide Name Role Phone Dandre Chavez MD Primary Care Provider [phone] Miguel Enciso MD Unavailable [phone] Encounter Details Date Type Department Care Team (Late st Contact Info) Description 12/20/2022 Procedure Pass [facility] Non-In[facility] Cardiology [address] [place] [address] Social History Tobacco Use Types [...] filedocumented in this encounter Care Teams Field Aide Relationship Specialty Start Date End Date Dandre Chavez MD [address] [place] [address] [id number] PCP - General 09/05/17 Miguel Enciso MD [address] [place] [address], [facility] [address] [place], [place] [phone] [email or web address] Cardiology 05/28/24 documented as of this encounter Additional Source Comments The information contained in this document represents components of the legal health record. It is not the complete legal health record.[facility]
--- OUTSIDE RECORDS SUMMARY | 2025-08-25 05:51 | XMS_ITS | Encounter Summary ---
Author Organization [facility] Address [address] [place] [address] Phone Care Team Providers Care Risk Developer Name Role Phone Dandre Chavez MD Primary Care Provider [phone] Miguel Enciso MD Unavailable Encounter Details Date Type Department Care Team (Late st Contact Info) Description 08/18/2021 Procedure Pass [facility] [address] [place], [place] [phone] Social History Tobacco Use Types Packs/Day Years [...] on filedocumented in this encounter Care Teams Risk Developer Relationship Specialty Start Date End Date Dandre Chavez MD [address] [place] [id number] PCP - General 09/05/17 Miguel Enciso MD [address] [facility], [address] [place], [place] [phone] Cardiology 05/28/24 documented as of this encounter Additional Source Comments The information contained in this document represents components of the legal health record. It is not the complete legal health record.[facility]
--- OUTSIDE RECORDS SUMMARY | 2025-08-25 05:51 | XMS_ITS | Encounter Summary ---
Author Organization [facility] Address [address] [place] [address] Care Team Providers Care Government Minister Name Role Phone Amina Burciaga MD Primary Care Provider [phone] Encounter Details Date Type Department Care Team (Late st Contact Info) Description 07/13/2024 Lab Requisition [facility] - Main Lab 299 [facility] [place] [address] Hortencia Mcclellan MD [address] [id number] Type 2 diabetes mellitus without complications (CMS/HCC [...] al Result [facility] [address] [place] [address], * (ABNORMAL) Complete blood count (07/14/2024 6:08 AM EST) [facility] WBC 5.3 4.8 - 10.8 K/mcL LAB [...] LAB HEMETOLOGY METHOD 07/14/2024 8:32 AM EST [facility] NRBC Absolute 0.00 <0.10 K/mcL LAB HEMETOLOGY METHOD 07/14/2024 8:32 AM EST [facility] Blood Venous blood specimen / Unknown Venipuncture / Unknown 07/14/2024 6:08 AM EST 07/14/2024 8:03 AM EST us Hortencia Mcclellan MD LAB BLOOD ORDERABLES Fin al Result [facility] [address] [place] [address], documented in this encounter Visit Diagnoses Diagnosis Type 2 diabetes mellitus without complications (CMS/HCC V24, CMS/HCC V28) Heart failure, unspecified (CMS/HCC V24, CMS/HCC V28) Heart failure, unspecified documented in this encounter Care Teams Government Minister Relationship Specialty Start Date End Date Amina Burciaga MD [address] [place] [address] PCP - General Hospitalist Medicine 09/11/24 documented as of this encounter
--- OUTSIDE RECORDS SUMMARY | 2025-08-25 05:51 | XMS_ITS | Encounter Summary ---
Author Organization [facility] [facility], Address [address] [place] [address] Phone Care Team Providers Care Finger Grip Machine Operator Name Role Phone Dandre Chavez MD Primary Care Provider [phone] Encounter Details Date Type Department Care Team (Late st Contact Info) Description 11/29/2023 Documentation Only [facility] [facility], [address] [place] [address] Radha Chatterjee [place] [address] [place] [phone] Social History Tobacco Use Types Packs/Day Years [...] on filedocumented in this encounter Care Teams Finger Grip Machine Operator Relationship Specialty Start Date End Date Dandre Chavez MD [address] [place] [address], [address] [place], [place] PCP - General 07/07/19 documented as of this encounter
--- OUTSIDE RECORDS SUMMARY | 2025-08-25 05:51 | XMS_ITS | Clinical Summary ---
Author Organization [facility] [place], Address [address] [place] [address] Phone Care Team Providers Care Soil Conservation Aide Name Role Phone Dandre Chavez MD Primary Care Provider [phone] Allergies Active Allergy Reactions Criticality Noted Date [...] Last Assessment & Plan: History of inferior [place] in 2013 with a stent to her [...] PM EST) Hemoglobin A1C 6.9(H) (4.0-5.6) % [facility] Comment: MONITORING: In known diabetic patients, hemoglobin A1c targets should be discussed with health care provider. DIAGNOSTIC USE: The [place] [employer] (ADA) and the World Health [...] Supplement 1 Testing performed or reported by [facility], a Service of [facility], [address] [place] [address] Louis Fry MD, Adjunct Latin Professor [facility]# [id number] Blood specimen (specimen) Venous blood / Unknown 10/18/2022 2:34 PM EST 10/18/2022 2:35 PM EST us Faina LUCIANO LAB BLOOD ORDERABLES Final Res ult [facility] from Last 3 Months or Most Recently Relevant to Health Maintenance Insurance Medicare [place] [address] [facility] [place] [address] Care Teams Soil Conservation Aide Relationship Specialty Start Date End Date Dandre Chavez MD [address] [place] [address], [address] [place] PCP - General 07/07/19
--- OUTSIDE RECORDS SUMMARY | 2025-08-25 05:51 | XMS_ITS | Encounter Summary ---
Author Organization [facility] [place], Address [address] [place] [address] Phone Care Team Providers Care Machined Parts Quality Inspector Name Role Phone Dandre Chavez MD Primary Care Provider [phone] Encounter Details Date Type Department Care Team (Late st Contact Info) Description 12/31/2022 Documentation Only [facility], [address] [place] [address] Melissa Delgadillo [address] [place] [address] Social History Tobacco Use Types Packs/Day Years [...] on filedocumented in this encounter Care Teams Machined Parts Quality Inspector Relationship Specialty Start Date End Date Dandre Chavez MD [address] [place] [address], [address] [place], [place] PCP - General 07/07/19 documented as of this encounter
--- OUTSIDE RECORDS SUMMARY | 2025-08-25 05:51 | XMS_ITS | Encounter Summary ---
Author Organization [facility] Address [address] [place] [address] Care Team Providers Care Sample Sewer Name Role Phone Amina Burciaga MD Primary Care Provider [phone] Encounter Details Date Type Department Care Team (Late st Contact Info) Description 07/20/2024 Lab Requisition [facility] - Main Lab [address] [facility] [facility] [place] [address] Hortencia Mcclellan MD [address] [facility] [address] [place], [place] [id number] Type 2 diabetes mellitus without complications (CMS/HCC [...] mmol/L LAB CHEMISTRY METHOD 07/21/2024 8:50 AM [facility] Potassium 4.5 3.5 - 5.5 mmol/L LAB CHEMISTRY METHOD 07/21/2024 8:50 AM [facility] Chloride 108 96 - 110 mmol/L LAB CHEMISTRY METHOD 07/21/2024 8:50 AM [facility] CO2 27 21 - 32 mmol/L LAB CHEMISTRY METHOD 07/21/2024 8:50 AM [facility] Anion Gap 5 3 - 11 LAB CHEMISTRY METHOD 07/21/2024 8:50 AM [facility] Glucose 71 70 - 100 mg/dL LAB CHEMISTRY METHOD 07/21/2024 8:50 AM [facility] BUN 68(H) 5 - 25 mg/dL LAB CHEMISTRY METHOD 07/21/2024 8:50 AM [facility] Creatinine 3.00(H) 0.50 - 1.10 mg/dL LAB CHEMISTRY METHOD 07/21/2024 8:50 AM [facility] eGFR 16(L) >=60 mL/min/1. 73m2 LAB CHEMISTRY METHOD 07/21/2024 8:50 AM [facility] Comment:Calculation based on the Chronic Kidney Disease Epidemiology Collaboration (CKD-EPI) equation refit without adjustment for race. BUN/Creatinine Ratio 22.7 LAB CHEMISTRY METHOD 07/21/2024 8:50 AM [facility] Calcium 9.1 8.5 - 10.5 mg/dL LAB CHEMISTRY METHOD 07/21/2024 8:50 AM [facility] Blood Venous blood specimen / Unknown Venipuncture / Unknown 07/21/2024 5:53 AM EST 07/21/2024 7:55 AM EST us Hortencia Mcclellan MD LAB BLOOD ORDERABLES Fin al Result [facility] [address] [place] [address], * (ABNORMAL) Complete blood count (07/21/2024 5:53 AM EST) [facility] WBC 5.0 4.8 - 10.8 K/mcL LAB HEMETOLOGY METHOD 07/21/2024 8:26 AM [facility] RBC 2.90(L) 3.80 - 4.80 M/mcL LAB HEMETOLOGY METHOD 07/21/2024 8:26 AM [facility] Hemoglobin 8.2(L) 11.5 - 16.0 g/dL LAB HEMETOLOGY METHOD 07/21/2024 8:26 AM [facility] Hematocrit 29.0(L) 35.0 - 47.0 % LAB HEMETOLOGY METHOD 07/21/2024 8:26 AM [facility] MCV 100.7(H) 79.0 - 98.0 FL LAB HEMETOLOGY METHOD 07/21/2024 8:26 AM [facility] MCH 28.5 27.0 - 32.0 pcg LAB HEMETOLOGY METHOD 07/21/2024 8:26 AM [facility] MCHC 28.3(L) 32.0 - 37.0 g/dL LAB HEMETOLOGY METHOD 07/21/2024 8:26 AM [facility] RDW 19.2(H) 11.0 - 15.0 % LAB HEMETOLOGY METHOD 07/21/2024 8:26 AM [facility] Platelets 223 130 - 400 K/mcL LAB HEMETOLOGY METHOD 07/21/2024 8:26 AM [facility] MPV 10.0 7.0 - 11.0 FL LAB HEMETOLOGY METHOD 07/21/2024 8:26 AM [facility] NRBC 0.0 <1.0 % LAB HEMETOLOGY METHOD 07/21/2024 8:26 AM EST [facility] NRBC Absolute 0.00 <0.10 K/mcL LAB HEMETOLOGY METHOD 07/21/2024 8:26 AM EST [facility] Blood Venous blood specimen / Unknown Venipuncture / Unknown 07/21/2024 5:53 AM EST 07/21/2024 7:55 AM EST us Hortencia Mcclellan MD LAB BLOOD ORDERABLES Fin al Result [facility] [address] [place] [address], documented in this encounter Visit Diagnoses Diagnosis Type 2 diabetes mellitus without complications (CMS/HCC V24, CMS/HCC V28) Heart failure, unspecified (CMS/HCC V24, CMS/HCC V28) Heart failure, unspecified documented in this encounter Care Teams Sample Sewer Relationship Specialty Start Date End Date Amina Burciaga MD [address] [place] [address] PCP - General Hospitalist Medicine 09/11/24 documented as of this encounter
--- OUTSIDE RECORDS SUMMARY | 2025-08-25 05:51 | XMS_ITS | Encounter Summary ---
Author Organization [facility], Address [address] [place] [address] Phone Care Team Providers Care Cane Splicer Name Role Phone Dandre Chavez MD Primary Care Provider [phone] Encounter Details Date Type Department Care Team (Late st Contact Info) Description 01/08/2025 Documentation Only [facility], [address] [place] [address] Radha Chatterjee [place] [address] [place] [id number] Social History Tobacco Use Types Packs/Day Years [...] on filedocumented in this encounter Care Teams Cane Splicer Relationship Specialty Start Date End Date Dandre Chavez MD [address] [place] [address], [address] [place], [place] PCP - General 07/07/19 documented as of this encounter
--- OUTSIDE RECORDS SUMMARY | 2025-08-25 05:51 | XMS_ITS | Encounter Summary ---
Author Organization [facility] Address [address] [place], [place] [address] [place] [address] Phone Care Team Providers Care Social Group Worker Name Role Phone Dandre Chavez MD Primary Care Provider [phone] Miguel Enciso MD Unavailable [phone] Encounter Details Date Type Department Care Team (Late st Contact Info) Description 07/01/2024 Procedure [place] [facility] [place] Referral Images [address] [facility] [address] [place] [address] Social History Tobacco Use Types Packs/Day Years [...] on filedocumented in this encounter Care Teams Social Group Worker Relationship Specialty Start Date End Date Dandre Chavez MD [address] [place] [id number] PCP - General 09/05/17 Miguel Enciso MD [address] [place] [phone] [email or web address] Cardiology 05/28/24 documented as of this encounter Additional Source Comments The information contained in this document represents components of the legal health record. It is not the complete legal health record.[facility]
[2025-08-25 06:24] LABS: Anion Gap 18 (12-20); Blood Urea Nitrogen 91 mg/dL (9-16); Calcium 8.5 mg/dL (8.4-10.2); Carbon Dioxide 29 mmol/L (22-29); Chloride 91 mmol/L (96-108); Estimated Glomerular Filt Rate 21; Potassium 2.9 mmol/L (3.3-5.1); Sodium 135 mmol/L (135-145)
== END 2025-08-25 05:48 | disposition home or self-care (01) ==
LOC: HO.MMNH2L 05:47
PROVIDERS: Visit Provider Physician Assistant Medical
DX: E87.6 Hypokalemia (principal)
CPT/HCPCS: 36415; 80048

== ENCOUNTER 2025-08-30 10:01 | Outpatient (REF) | payer MEDICARE, SELFPAY ==
--- OUTSIDE RECORDS SUMMARY | 2025-08-29 17:20 | XMS_ITS | Continuity of Care Document ---
Author Organization [facility] ter Address [address] [place] [id number]- Care Team Providers Care Groundskeeping Maintenance Name Role Phone Mark ELAM, Av Dietz Primary Care Physician [phone] [id number] Date(s): 08/27/25 - 08/29/[address] [address]- Discharge Disposition: A-D/C Home Attending Physician: Mustapha Lucas DO Admitting Physician: Franco Dunbar MD Referring Physician: Not on Staff, Referring MD Encounter Type: Disch IP Allergies, Adverse Reactions, Alerts Substance Criticality Severity Reaction Reaction Severity Status metoprolol <not entered> Activ e bethanechol <not entered> Acti ve Percocet 7.5/325 hallucinates Active Mushrooms Mushrooms and toadstools Active Norvasc Active Urecholine anorexia and lo ss of sight Active Other Food Allergy 1, 2 Active 1cheese that is aged with mold 2cheese allergy Functional Status Functional Status Assessment Assessment Assessment Component Result Effecti ve Date Nikita scale total score 14 Functional Status Assessment Assessment Assessment Component Result Effecti ve Date Unspecifed Functional Status Assessment Skin abnormality typ e (observable entity) Abscess 08/28/25 Functional Status Assessment Assessment Assessment Component Result Effecti ve Date Unspecifed Functional Status Assessment Skin abnormality typ e (observable entity) Arterial/Venous 08/28/25 Functional Status Assessment Assessment Assessment Component Result Effecti ve Date Unspecifed Functional Status Assessment Skin abnormality typ e (observable entity) Pressure injury 08/28/25 Functional Status Assessment Assessment Assessment Component Result Effecti ve Date Total Falls Risk Score 17 08/27 Functional Status Assessment Assessment Assessment Component Result Effecti ve Date Total Falls Risk Score 14 08/28 Functional Status Assessment Assessment Assessment Component Result Effecti Nikita scale total score 12 Functional Status Assessment Assessment Assessment Component Result Effecti Total Falls Risk Score 29 08/28 Functional Status Assessment Assessment Assessment Component Result Effecti Total score [AUDIT] 0 08/27/25 Functional Status Assessment Assessment Assessment Component Result Effecti Disability status [CUBS] I'm Building Capacity - I have an asymptomatic condition controlled by services or medication 08/27/25 Do you have difficul ty dressing or bathing Yes 08/27/25 Are you blind, or do you have serious difficulty seeing, even when wearing glasses No 08/27/25 Are you deaf, or do you have serious difficulty hearing Yes 08/27/25 Do you have serious difficulty walking or climbing stairs Yes 08/27/25 Because of a physica l, mental, or emotional condition, do you have serious difficulty concentrating, remembering, or making decisions No 08/27/25 Difficulty Reading O r Writing No 08/27/25 Difficulty communica ting in usual language No 08/27/25 Do you need any additional assistance or accommodations during your visit No 08/27/25 Because of a physica l, mental, or emotional condition, do you have difficulty doing errands alone such as visiting a physician's office or shopping Yes 08/27/25 Immunizations Given and Recorded Vaccine Date Status Refusal Reason influenza virus vaccine, inactivated 07/04/24 Give n influenza virus vaccine, inactivated 08/02/22 Give n influenza virus vaccine, inactivated 05/19/20 Give n influenza virus vaccine, inactivated 10/06/19 Give n influenza virus vaccine, inactivated 09/12/18 Give n hepatitis B adult vaccine 07/30/23 Recorded hepatitis B adult vaccine 05/14/23 Recorded tetanus-diphtheria toxoids (Td) 08/02/22 Given SARS-CoV-2 (COVID-19) mRNA-1273 vaccine 09/25/21 G iven SARS-CoV-2 (COVID-19) mRNA BNT-162b2 vac 11/29/20 Recorded SARS-CoV-2 (COVID-19) mRNA BNT-162b2 vac 11/08/20 Recorded pneumococcal 23-valent vaccine 05/27/14 Given Medications acetaminophen 325 mg oral tablet 650 mg, 2, tablet, By Mouth, Every 6 hours, PRN, NTE 3 gm/24 hours, Refills 0, Maintenance, Pain , Mild, 10/28/24 8:05:00 AM EST, Partial fill upon patient request if the prescription is for a schedule II opioid drug. Start Date: 10/28/24 Status: Ordered Medication Dispense Status: Completed Total Allowed Fills: 1 Fills Dispensed: 0 Acetaminophen Tablet 650 mg, Tablet, By Mouth, Every 4 hours, PRN for Pain , Mild, Temperature Greater than 100.5, Routine, 08/27/25 2:45:00 PM EST Start Date: 08/27/25 Stop Date: 08/30/25 Status: Discontinued Medication Dispense Status: Completed Total Allowed Fills: 1 Fills Dispensed: 0 albuterol 0.083% inhalation solution 3 mL = 2.5 mg, Inhalation, 2 times a day, # 120 each, 0 Refills, Maintenance, 08/27/25 4:48:00 PM EST, Solution, Partial fill upon patient request if the prescription is for a schedule II opioid drug. Start Date: 08/27/25 Status: Ordered Medication Dispense Status: Completed Quantity: 120.0 Unit: each Total Allowed Fills: 1 Fills Dispensed: 0 albuterol-ipratropium 3 mg-0.5 mg/3 ml inhalation solution 3 mL, Inhalation, 3 times a day, PRN Wheezing/Shortness of Breath, # 30 each, 0 Refills, Maintenance, 08/27/25 4:54:00 PM EST, Solution, Partial fill upon patient request if the prescription is for aschedule II opioid drug. Start Date: 08/27/25 Status: Ordered Medication Dispense Status: Completed Quantity: 30.0 Unit: each Total Allowed Fills: 1 Fills Dispensed: 0 aspirin 81 mg oral delayed release tablet 81 mg, By Mouth, Daily, Refills 0, Maintenance, 07/30/25 11:36:00 AM EST, Partial fill upon patientrequest if the prescription is for a schedule II opioid drug. Start Date: 07/30/25 Status: Ordered Medication Dispense Status: Completed Total Allowed Fills: 1 Fills Dispensed: 0 atorvastatin 80 mg oral tablet 1 tablet, By Mouth, Daily at bedtime, # 90 tablet, 0 Refills, Maintenance, 09/30/23 9:37:00 AM EST, [id number], 168, cm, 01/30/23 13:33:00 EDT, Height, 119, kg, 01/30/23 13:33:00 EDT,Dry Weight Start Date: 09/30/23 Status: Ordered Medication Dispense Status: Completed Quantity: 90.0 Unit: tablet Total Allowed Fills: 1 Fills Dispensed: 0 benzonatate 100 mg oral capsule = 100 mg, By Mouth, 3 times a day, 0 Refills, Maintenance, 08/29/25 10:39:00 AM EST, Capsule, Partial fill upon patient request if the prescription is for a schedule II opioid drug. Start Date: 08/29/25 Status: Ordered Medication Dispense Status: Completed Total Allowed Fills: 1 Fills Dispensed: 0 cefdinir 300 mg oral capsule 1 capsule = 300 mg, By Mouth, Every 24 hours, for 5 days, # 5 capsule, 0 Refills, Acute 09/03/25 10:40:00 AM EST, 08/29/25 10:40:00 AM EST, Capsule, Partial fill upon patient request if the prescription is for a schedule II opioid drug. Start Date: 08/29/25 Stop Date: 09/03/25 Status: Ordered Medication Dispense Status: Completed Quantity: 5.0 Unit: capsule Total Allowed Fills: 1 Fills Dispensed: 0 clonazePAM 0.5 mg oral tablet 1 tablet = 0.5 mg, By Mouth, Daily at bedtime, PRN Insomnia/ anxiety, # 30 tablet, 0 Refills, Maintenance, 08/27/25 4:50:00 PM EST, Tablet, Partial fill upon patient request if the prescription is for a schedule II opioid drug. Start Date: 08/27/25 Status: Ordered Medication Dispense Status: Completed Quantity: 30.0 Unit: tablet Total Allowed Fills: 1 Fills Dispensed: 0 Colace sodium 100 mg oral capsule 100 mg, 1, capsule, By Mouth, 2 times a day, Maintenance, 09/14/24 6:02:00 PM EST, Partial fill uponpatient request if the prescription is for a schedule II opioid drug. Start Date: 09/14/24 Status: Ordered Medication Dispense Status: Completed Total Allowed Fills: 1 Fills Dispensed: 0 CPAP Machine See Instructions, # 1 each, Maintenance, AutoCPAP 8-20 cm H20, use Daily when sleeping, 03/14/25 3:24:00 PM EDT, Supply Start Date: 03/14/25 Status: Ordered Medication Dispense Status: Completed Quantity: 1.0 Unit: each Total Allowed Fills: 1 Fills Dispensed: 0 Dulcolax 10 mg rectal suppository 1 supp = 10 mg, Rectally, Daily, PRN as needed for constipation, Maintenance, 09/14/24 6:02:00 PM EST, Partial fill upon patient request if the prescription is for a schedule II opioid drug. Start Date: 09/14/24 Status: Ordered Medication Dispense Status: Completed Total Allowed Fills: 1 Fills Dispensed: 0 ferrous sulfate 325 mg oral enteric coated tablet 325 mg, 1, tablet, By Mouth, Daily, # 90 tablet, Refills 0, Tot. Refills 0, Maintenance, 11/05/24 10:29:00 AM EST, Do Not Route, Partial fill upon patient request if the prescription is for a schedule II opioid drug. Start Date: 11/05/24 Stop Date: 02/03/25 Status: Ordered Medication Dispense Status: Completed Quantity: 90.0 Unit: tablet Total Allowed Fills: 1 Fills Dispensed: 0 fexofenadine 180 mg oral tablet 1 tablet = 180 mg, By Mouth, Daily, 0 Refills, Maintenance, 03/14/25 3:13:00 PM EDT, Tablet, Partialfill upon patient request if the prescription is for a schedule II opioid drug. Start Date: 03/14/25 Status: Ordered Medication Dispense Status: Completed Total Allowed Fills: 1 Fills Dispensed: 0 fluticasone 50 mcg/inh nasal spray 1 sprays = 50 mcg, Nares, Both, 2 times a day, # 16 Gm, 0 Refills, Maintenance, 03/14/25 3:14:00 PM EDT, [place], Partial fill upon patient request if the prescription is for a schedule II opioid drug. Start Date: 03/14/25 Status: Ordered Medication Dispense Status: Completed Quantity: 16.0 Unit: g Total Allowed Fills: 1 Fills Dispensed: 0 Glucerna Glucerna, 237, mL, By Mouth, 2 times a day, Refills 0, Maintenance, 08/27/25 5:08:00 PM EST, Supply Start Date: 08/27/25 Status: Ordered Medication Dispense Status: Completed Total Allowed Fills: 1 Fills Dispensed: 0 lactulose 10 g/15 mL oral and rectal liquid 30 mL = 20 Gm, By Mouth, Every other day, Maintenance, 07/19/25 6:46:00 PM EST, Partial fill upon patient request if the prescription is for a schedule II opioid drug. Start Date: 07/19/25 Status: Ordered Medication Dispense Status: Completed Total Allowed Fills: 1 Fills Dispensed: 0 levothyroxine 0.137 mg oral tablet 1 tablet = 137 mcg, By Mouth, Daily, # 90 tablet, 1 Refills, Maintenance, 06/01/24 12:04:00 PM EDT, [id number], 167, cm, 04/07/24 14:47:00 EDT, Height, 102.2, kg, 03/19/24 18:37:00 EDT, Dry Weight Start Date: 06/01/24 Status: Ordered Medication Dispense Status: Completed Quantity: 90.0 Unit: tablet Total Allowed Fills: 2 Fills Dispensed: 0 metolazone 5 mg oral tablet 5 mg, 1, tablet, By Mouth, Every 72 hours, PRN, # 30 tablet, Refills 0, Maintenance, for edema, 08/27/25 4:55:00 PM EST, Partial fill upon patient request if the prescription is for a schedule II opioid drug. Start Date: 08/27/25 Status: Ordered Medication Dispense Status: Completed Quantity: 30.0 Unit: tablet Total Allowed Fills: 1 Fills Dispensed: 0 Milk of Magnesia 1200 mg/15 mL oral liquid 30 mL = 2,400 mg, By Mouth, Every 24 hours, PRN Constipation, Maintenance, 07/19/25 6:47:00 PM EST,Partial fill upon patient request if the prescription is for a schedule II opioid drug. Start Date: 07/19/25 Status: Ordered Medication Dispense Status: Completed Total Allowed Fills: 1 Fills Dispensed: 0 MiraLax oral powder for reconstitution 1 pack/packet, By Mouth, Daily, Maintenance, 07/19/25 6:46:00 PM EST, Partial fill upon patient request if the prescription is for a schedule II opioid drug. Start Date: 07/19/25 Status: Ordered Medication Dispense Status: Completed Total Allowed Fills: 1 Fills Dispensed: 0 multivitamin Lipotropic with Multivitamins oral tablet 1 tablet, By Mouth, Daily, 0 Refills, Maintenance, 03/14/25 3:16:00 PM EDT, Tablet, Partial fill upon patient request if the prescription is for a schedule II opioid drug. Start Date: 03/14/25 Status: Ordered Medication Dispense Status: Completed Total Allowed Fills: 1 Fills Dispensed: 0 PARoxetine 30 mg oral tablet 1 tablet = 30 mg, By Mouth, Daily, # 30 tablet, 0 Refills, Maintenance, 03/14/25 3:18:00 PM EDT, Tablet, Partial fill upon patient request if the prescription is for a schedule II opioid drug. Start Date: 03/14/25 Status: Ordered Medication Dispense Status: Completed Quantity: 30.0 Unit: tablet Total Allowed Fills: 1 Fills Dispensed: 0 potassium chloride 20 mEq oral tablet, extended release 1 tablet = 20 mEq, By Mouth, Daily, # 30 tablet, 0 Refills, Maintenance, 03/14/25 3:19:00 PM EDT, [facility], Partial fill upon patient request if the prescription is for a schedule II opioid drug. Start Date: 03/14/25 Status: Ordered Medication Dispense Status: Completed Quantity: 30.0 Unit: tablet Total Allowed Fills: 1 Fills Dispensed: 0 Senna 8.6 mg oral tablet 17.2 mg, 2, tablet, By Mouth, Daily at bedtime, Maintenance, 07/19/25 6:50:00 PM EST, Partial fill upon patient request if the prescription is for a schedule II opioid drug. Start Date: 07/19/25 Status: Ordered Medication Dispense Status: Completed Total Allowed Fills: 1 Fills Dispensed: 0 Tamiflu 75 mg oral capsule 1 capsule = 75 mg, By Mouth, Daily, for 3 days, # 3 capsule, 0 Refills, Acute 09/01/25 10:45:00 AM EST, 08/29/25 10:45:00 AM EST, Capsule, Partial fill upon patient request if the prescription is fora schedule II opioid drug. Start Date: 08/29/25 Stop Date: 09/01/25 Status: Ordered Medication Dispense Status: Completed Quantity: 3.0 Unit: capsule Total Allowed Fills: 1 Fills Dispensed: 0 torsemide 60 mg oral tablet 1 tablet = 60 mg, By Mouth, 2 times a day, # 60 tablet, 0 Refills, Maintenance, 04/08/25 12:33:00 PM EDT, Tablet, [facility] #[id number], Partial fill upon patient request if the prescription is for a schedule II opioid drug., 168, cm, 04/08/25 8:17:00 EDT, Height, 87, kg, 03/30/25 23:06:00 EDT, Dry Weight Start Date: 04/08/25 Status: Ordered Medication Dispense Status: Completed Quantity: 60.0 Unit: tablet Total Allowed Fills: 1 Fills Dispensed: 0 traMADol 50 mg oral tablet 1 tablet = 50 mg, By Mouth, Every 8 hours, PRN Pain , Severe, 0 Refills, Maintenance, 08/27/25 5:05:00 PM EST, Partial fill upon patient request if the prescription is for a schedule II opioid drug. Start Date: 08/27/25 Status: Ordered Medication Dispense Status: Completed Total Allowed Fills: 1 Fills Dispensed: 0 Vagisil Feminine Cream 1 application, Vaginally, Every 4 hours, PRN Pain , Moderate, Maintenance, 07/19/25 6:52:00 PM EST,Partial fill upon patient request if the prescription is for a schedule II opioid drug. Start Date: 07/19/25 Status: Ordered Medication Dispense Status: Completed Total Allowed Fills: 1 Fills Dispensed: 0 Voltaren Arthritis Pain 1% topical gel 1 application, Topically, 2 times a day, Applied to Right Shoulder, Maintenance, 07/19/25 6:55:00 PM EST, Partial fill upon patient request if the prescription is for a schedule II opioid drug. Start Date: 07/19/25 Status: Ordered Medication Dispense Status: Completed Total Allowed Fills: 1 Fills Dispensed: 0 Mental Status Mental Status Assessment Assessment Assessment Component Result Effecti ve Date [place] coma score total 15 Problem List Condition Confirmation Course Effective Dates Status H ealth Status Informant Anemia Confirmed Active Anxiety Confirmed Active Generalized weakness Confirmed Active Bladder incontinence Confirmed Active Chronic back pain Confirmed Active Chronic kidney disease, stage 3b 1 Confirmed Active CKD (chronic kidney disease) stage 4, GFR 15-29 ml/min Confirmed Active Chronic HFrEF (heart failure with reduced ejection fraction) Confirmed Active Constipation Confirmed Active CAD (coronary artery disease) Confirmed Active Depressive disorder Confirmed Active Depression Confirmed Active Diabetes mellitus Confirmed Active History of Mobitz type II block Confirmed Active Heart failure with preserved ejection fraction Confirmed Active History of anemia due to CKD Confirmed Active HLD (hyperlipidemia) Confirmed Active Hypertension Confirmed Active Hypothyroidism Confirmed Active Ischemic cardiomyopathy Confirmed Active Macrocytic anemia Confirmed Active Moderate mitral stenosis Confirmed Active Mood disorder Confirmed Active MALA (obstructive sleep apnea) Confirmed Active Osteoarthritis Confirmed Active History of implantable cardioverter-defibril lator (ICD) placement Confirmed Active Periodic limb movement Confirmed Active Psoriasis Confirmed Active Psoriatic arthritis Confirmed Active RSV infection Confirmed Active T2DM (type 2 diabetes mellitus) Confirmed Active Diabetes mellitus type II, uncontrolled Confirmed Active 1Per chart review meets GFR criteria Results Radiology Reports * Exam Date Time Procedure Performing Provider Status 08/27/25 11:18 AM Chest Portable Auth (Ve rified) Notes: (Chest Portable) Reason For Exam: Cough RESULT: Chest Portable Chest Portable performed upright at 11:15 AM Reason: Cough; Clinical Question(s): Pneumonia COMPARISON: Most recent 07/19/2025 FINDINGS: LINES AND TUBES: Triple-lead left subclavian pacer/AICD wires are intact. Unchanged position of the CardioMEMS device projecting over the left hilum. LUNGS AND PLEURA: Mild bibasilar and left retrocardiac streaky opacity. Normal pulmonary vascularity. Unchanged blunting of the costophrenic angles. No pneumothorax. HEART, MEDIASTINUM AND FLORINDA: Heart is normal in size. Metallic coronary artery stent. Aorta is calcified. BONES AND SOFT TISSUES: No acute abnormality. IMPRESSION: 1. Unchanged small pleural effusions with adjacent atelectases. 2. Mild left retrocardiac streaky opacity, could be atelectasis or pneumonia. I have personally reviewed the images and I agree with this report. WSN: [id number] Ordering Physician: Duke Hutchins Dictated By: Ravi Wong MD Dictated Date/Time: 08/27/25 11:47 a Reviewed By: Louise Herbert MD Signed By: Louise Herbert MD Signed Date/Time: 08/27/25 11:52 am Transcribed By: AMI Transcribed Date/Time: 08/27/25 11:25 am Vital Signs Most recent to oldest [Reference Range]: 1 2 3 Height 168 cm (08/29/25 8:17 AM) 168 cm (08/29/25 3:07 AM) 168 cm (08/28/25 9:26 PM) Weight 62.4 kg (08/29/25 7:35 AM) 63.1 kg (08/28/25 6:54 AM) 62.5 kg (08/27/25 5:34 PM) Oxygen Saturation [94-100 %] 99 % (08/29/25 8:17 AM) 96 % (08/29/25 3:07 AM) 100 % (08/28/25 10:51 PM) Pulse Rate [55-90 bpm] 60 bpm (08/29/25 8:17 AM) 70 bpm (08/29/25 3:07 AM) 69 bpm (08/28/25 9:26 PM) Body Mass Index [18.5-24.99 kg/m2] 22.14 kg/m2 (08/27/25 5:34 PM) Blood Pressure [90-138/55-84 mm Hg] 99/49mm Hg (08/29/25 8:17 AM) 101/55mm Hg (08/29/25 3:07 AM) 100/55mm Hg (08/28/25 9:26 PM) Respiratory Rate [16-30 br/min] 17 br/min (08/29/25 8:17 AM) 18 br/min (08/29/25 4:23 AM) 20 br/min (08/29/25 3:07 AM) Temperature [96.8-100.4 DegF] 97.9 DegF (08/29/25 8:17 AM) 98.9 DegF (08/29/25 3:07 AM) 97.4 DegF (08/28/25: PM) Liters per Minute 3 L/min (08/29/25 8:17 AM) 3.5 L/min (08/29/25 3:07 AM) 4 L/min (08/28/25:26 PM) Mode of Delivery (Oxygen) Nasal cannula (08/29/25 8:17 AM) Nasal cannula (08/29/25 3:07 AM) Nasal cannula (08/28/25: PM) Blood pressure sites Arm, left (08/29/25 8:17 AM) Arm, right (08/29/25 3:07 AM) Arm, right (08/28/25: PM) Temperature Route Oral (08/29/25 8:17 AM) Oral (08/29/25 3:07 AM) Axillary (08/28/25 9:26 PM) Weight Obtained Via Bed scale (08/28/25 6:54 AM) Bed scale (08/27/25 5:34 PM) Social History Social History Type Response Sexual Sexually involved in last 6 months: No. Gender identity: Identifies as female. Smoking Status Former smoker, quit more than 30 days ago; Other: Quit 34 years ago; entered on: 05/18/20 Sex Female Sex Representation Female (finding) Status Not Social Determinants of Health Assessment Assessment Assessment Component Result Effecti ve Date Unspecifed Social Determinants of Health Assessment Within the last year , have you been afraid of your partner or ex-partner No 08/27/25 Has lack of transpor tation kept you from medical appointments, meetings, work, or from getting things needed for daily living No 08/27/25 Have you or any fami ly members you live with been unable to get any of the following when it was really needed in past 1 year [PRAPARE] None 08/27/25 Do you feel physical ly and emotionally safe where you currently live [PRAPARE] Yes 08/27/25 How often do you see or talk to people that you care about and feel close to [PRAPARE] 6 or more times a week 08/27/25 Are you worried abou t losing your housing [PRAPARE] No 08/27/25 Housing status I have housing 08/27/25 Admission evaluation note * Franco Dunbar MD: PERFORM Event Display: Admission Note Authored Date: [id number] Patient: ??AMINA JOHNSTON ? Age:??80 Years?Sex:??Female?:??1945?LOC:??[facility]?? Chief Complaint/Reason for Consultation 80 female. GCS 15. SOB X2 months, worsening the last few days. 4L o2 via NC History of Present Illness 80-year-old lady with PMH of CAD s/p PCI (to LAD, RCA, left LCx) CKD stage IV (baseline creatinine 2.0-2.4); chronic HFpEF; chronic hypoxic respiratory failure 2/2 CHF, on 4 L O2 at baseline; severe mitral stenosis; pulmonary hypertension; T2DM; chronic anemia/anemia of CKD/[place]; history of ESBL E. coli UTI; second-degree AV block s/p pacemaker; hypothyroidism; - [facility] SOB ongoing for last few days, dry cough, low back pain.?? At baseline patient on 4 L O2 NC, saturating similar to baseline.?? Also complains of generalized weakness. - Patient denies any sick contacts, fevers, chills, anginal chest pain, abdominal pain, nausea, vomiting, diarrhea, dysuria, seizures, focal weakness or sensory changes. ?? -CXR showed mild left retrocardiac streaky opacity, could be atelectasis or pneumonia.?? Unchanged small pleural effusions with adjacent atelectasis. ?? VITALS: Afebrile, HR 70s, RR 12-28, BP 90s-120s/50s-60s, saturating 97% on 3 L O2 NC.?? BP has beenlow normal, did get IV Lasix 60 mg prior to my evaluation, mentating well. ?? LABS: - WBC, platelet WNL; H/H 10.5/34 (anemia of CKD, chronic anemia, baseline) - Sodium 128 (serum awesome 80, urine osmolality and urine sodium pending) - Creatinine 2.50, BUN 89 (5 weeks back was 2.75, BUN 64); has CKD stage IV, seems around baseline. - High sensitive troponin 172---> has not been drawn, stat ordered as well, patient has not had any chest pain, EKG nonischemic, likely demand supply mismatch, but significant increase, will need to be evaluated for NSTEMI. - proBNP 40,000's; clinically no evidence of CHF exacerbation. - Viral panel positive for influenza A; negative for influenza B, RSV. - Creatinine clearance 15.7. EKG showed atrial sensed V paced rhythm.?? Does not fit Sgarbossa criteria. ED Meds: IV ceftriaxone 1 g, IV doxycycline 100 mg, IV Lasix 60 mg, IV Toradol 15 mg. Review of Systems -Pertinent positives and negative history mentioned in HPI. Objective Vital Signs?? Temperature: 97.1 DegF (08/27/25 16:16:00) Temperature Route: Rectal (08/27/25 16:16:00) Pulse Rate: 79 bpm (08/27/25 16:16:00) Respiratory Rate:??12 br/min??Low (08/27/25 16:16:00) Systolic Blood Pressure: 97 mm Hg (08/27/25 16:16:00) Diastolic Blood Pressure:??54 mm Hg??Low (08/27/25 16:16:00) Blood pressure sites: Arm, right (08/27/25 16:16:00) Mean Arterial Pressure: 68 mm Hg (08/27/25 16:16:00) Pulse Pressure: 43 mm Hg (08/27/25 16:16:00) Oxygen Saturation: 97 % (08/27/25 16:16:00) Liters per Minute: 3 L/min (08/27/25 16:16:00) Mode of Delivery (Oxygen): Nasal cannula (08/27/25 16:16:00) Early Warning Score: 5 (08/27/25 17:19:34) ? Physical Exam General: AAO x3. ??Not in acute distress. Following commands appropriately. HEENT: NC/AT, PERRLA, no pallor, no icterus, moist mucous membranes. Neck: Supple Chest:??Rhonchorous breath sounds??bilateral??lung jarquin. ??No wheezing or crackles appreciated CV: Regular rhythm. ??Normal S1-S2 heard. ??No murmurs appreciated. Abdomen: Soft, nondistended, nontender, normoactive bowel sounds. Neuro: ??Speech normal. Moving all 4 limbs freely. No gross focal neuro deficit appreciated. Extremities: Warm; b/l pedal pulses palpable; no b/l pedal edema. Assessment/Plan Diagnoses Influenza A ??(J10.1) Pneumonia ??(J18.9) 1. ??CAD (coronary artery disease) ??(I25.10) 2. ??CKD (chronic kidney disease) stage 4, GFR 15-29 ml/min ??(N18.4) 3. ??Chronic HFrEF (heart failure with reduced ejection fraction) ??(I50.22) 4. ??Mood disorder ??(F39) 5. ??History of anemia due to CKD ??(N18.9) 6. ??MALA (obstructive sleep apnea) ??(G47.33) 7. ??Hypothyroidism ??(E03.9) 8. ??T2DM (type 2 diabetes mellitus) ??(E11.9) ?? Assessment:??80-year-old lady with PMH of CAD s/p PCI (to LAD, RCA, left LCx) CKD stage IV (baseline creatinine 2.0-2.4); chronic HFpEF; chronic hypoxic respiratory failure 2/2 CHF, on 4 L O2 at baseline; severe mitral stenosis; pulmonary hypertension; T2DM; chronic anemia/anemia of CKD/FRANCE; history of ESBL E. coli UTI; second-degree AV block s/p pacemaker; hypothyroidism;??presented with cough, shortness of breath,??found to be positive for??influenza A, and there is CXR evidence of pneumonia,procalcitonin in the range??where antibiotic therapy encouraged,??for now??we will treat for influenza??and bacterial pneumonia??superimposed likely, being admitted to medicine service. ?? Influenza A (J10.1) Pneumonia (J18.9) ? -??Patient presented with??shortness of breath,??nonproductive cough,??generalized weakness, found to be positive for influenza A; -CXR showed small unchanged pleural effusion with adjacent atelectasis, mild left retrocardiac streaky opacity, atelectasis or pneumonia.??In the ED, received ceftriaxone, and azithromycin for concern for bacterial pneumonia. PLAN: - Will give p.o. Tamiflu 75 mg once daily for 5 days, based on renal function. - Droplet precautions. - Procalcitonin 0.38; in the range where antibiotic therapy is encouraged with clinical correlation.??S/p ceftriaxone in the ED.??At this time we will??treat as??superimposed??bacterial pneumonia,??will give IV ceftriaxone 1 g once daily for 5 days,??p.o. doxycycline 100 mg twice daily for 3 days.??Follow urine streptococcal antigen,??MRSA/MSSA swab. -As needed Tessalon Debbie Lopezsin??DM. ?? Chronic HFrEF (heart failure with reduced ejection fraction) (I50.22):??- Also received IV Lasix 60mg x 1, but clinically no evidence of CHF exacerbation. - Currently euvolemic, will give home p.o. torsemide 60 mg twice daily. -Telemetry - I/O monitoring,??salt/water restricted diet. ?? CKD (chronic kidney disease) stage 4, GFR 15-29 ml/min (N18.4):??- Creatinine 2.50, BUN 89 (5 weeksback was 2.75, BUN 64); has CKD stage IV, seems around baseline. -Likely prerenal MONICA in setting of renal hypoperfusion. -Avoid nephrotoxic drugs including NSAIDS, IV contrast; as needed bladder scan; I/O and UOP monitoring; renally dose medications. Target MAP>65; continue to monitor renal function. ?? CAD (coronary artery disease) (I25.10):??-Continue aspirin, atorvastatin. - High sensitive troponin 172---> has not been drawn, stat ordered as well, patient has not had any chest pain, EKG nonischemic, likely demand supply mismatch, but significant increase, will need to be evaluated for NSTEMI. ?? T2DM (type 2 diabetes mellitus) (E11.9):??-Insulin sliding scale, as needed hypoglycemia measures. ?? MALA (obstructive sleep apnea) (G47.33):??-Home CPAP ?? History of anemia due to CKD (N18.9):??- Continue home iron. Stable. ?? Hypothyroidism (E03.9):??- Continue home levothyroxine. ?? Mood disorder (F39):??- Continue home paroxetine. ?? VTE Prophylaxis:??- SQ heparin. ?VTE Prophylaxis Assessment:??VTE Prophylaxis Ordered ?? Code Status:??- Full code Date of Service: 08/27/2025 Billing based on [facility] complexity level: High ?? Evaluation may include, but is not limited to, both [id number] and lui-plll-at-face time on the date of service. This may involve addressing the above diagnoses, chart review, obtaining/reviewing history, performing a medically necessary evaluation, orders, code status discussion when appropriate, counseling, documentation, and charting. Please Note: This document was prepared using [employer] voice recognition software. While errors are corrected when identified, some jigsaw operator inaccuracies may persist. For any clarifications, please reach out to me via [email or web address] or pager. ?Order Code Status:??Code Status Ordered ? Histories Allergies Allergies ?(Active and Proposed Allergies Only) Other Food Allergy? (Severity: Unknown severity, Onset: Unknown) ?Comments: cheese that is aged with mold ?Comments: cheese allergy bethanechol (Severity: <not entered>, Onset: Unknown) metoprolol (Severity: <not entered>, Onset: Unknown) Mushrooms? (Severity: Unknown severity, Onset: Unknown) ?Reactions: Mushrooms and toadstools Norvasc? (Severity: Unknown severity, Onset: Unknown) Urecholine? (Severity: Unknown severity, Onset: Unknown) ?Reactions: anorexia and loss of sight Percocet 7.5/325? (Severity: Unknown severity, Onset: Unknown) ?Reactions: Urceolaria urechi, Urceolaria urechi, Urceolaria urechi, hallucinates ? Past Medical History/Problem List Active Problems(32) Anemia Anxiety Bladder incontinence CAD (coronary artery disease) Chronic back pain Chronic HFrEF (heart failure with reduced ejection fraction) Chronic kidney disease, stage 3b CKD (chronic kidney disease) stage 4, GFR 15-29 ml/min Constipation Depression Depressive disorder Diabetes mellitus Diabetes mellitus type II, uncontrolled Generalized weakness Heart failure with preserved ejection fraction History of anemia due to CKD History of implantable cardioverter-defibrillator (ICD) placement History of Mobitz type II block HLD (hyperlipidemia) Hypertension Hypothyroidism Ischemic cardiomyopathy Macrocytic anemia Moderate mitral stenosis Mood disorder MALA (obstructive sleep apnea) Osteoarthritis Periodic limb movement Psoriasis Psoriatic arthritis RSV infection T2DM (type 2 diabetes mellitus) ? Past Surgical History Percutaneous coronary intervention: 05/25/14 Appendectomy Carpal tunnel release -Left Cholecystectomy Cataract Biopsy of liver ? Social History Alcohol Details:??Use: Past. ??Frequency: 1-2 times per year. ??Other: last drink May 2023. ??Alcoholuse interferes with work or home: No. ??Drinks more than intended: No. ??Others hurt by drinking: No. ??Binge drinking: No. Details:??Use: Never. Employment/School Details:??Status: Disabled. Exercise Details:??Self assessment: Poor condition. Home/Environment Details:??Living situation: Home/Independent. Nutrition/Health Details:??Diet: Regular. Sexual Details:??Sexually involved in last 6 months: No. ??Gender identity: Identifies as female. Substance Abuse Details:??Use: Never. Tobacco Details:??Use: Former smoker, quit more than 30 days ago. ??Other: Quit 34 years ago. Electronic Cigarette/Vaping Details:??Electronic Cigarette Use: Never. ? Family History No Positive Family History documented. ? Medications Home Medications Acetaminophen (acetaminophen 325 mg oral tablet)??650 Milligram 2 tablet By Mouth Every 6 hours as needed NTE 3 gm/24 hours Pain , Mild Acetaminophen (Tylenol Extra Strength 500 mg oral tablet)??2 tab(s) 1,000 Milligram By Mouth Every 6 hours as needed Pain , Mild NTE 3 gm/24 hours Albuterol (albuterol 0.083% inhalation solution)??3 Milliliter 2.5 Milligram Inhalation 2 times a day Albuterol/Ipratropium (albuterol-ipratropium 3 mg-0.5 mg/3 ml inhalation solution)??3 Milliliter Inhalation 3 times a day as needed Wheezing/Shortness of Breath Aspirin (aspirin 81 mg oral delayed release tablet)??81 Milligram By Mouth Daily Atorvastatin (atorvastatin 80 mg oral tablet)??1 tab(s) By Mouth Daily at bedtime Benzocaine Topical (Vagisil Feminine Cream)??1 michelle Vaginally Every 4 hours as needed Pain , Moderate Bisacodyl (Dulcolax 10 mg rectal suppository)??1 suppository(ies) 10 Milligram Rectally Daily as needed as needed for constipation Clonazepam (clonazePAM 0.5 mg oral tablet)??1 tab(s) 0.5 Milligram By Mouth Daily at bedtime as needed Insomnia/ anxiety Diclofenac Topical (Voltaren Arthritis Pain 1% topical gel)??1 michelle Topically 2 times a day Applied to Right Shoulder Docusate (Colace sodium 100 mg oral capsule)??100 Milligram 1 capsule By Mouth 2 times a day Durable Medical Equipment (CPAP ??Machine)??See Instructions AutoCPAP 8-20 cm H20, use Daily when sleeping Ferrous Sulfate (ferrous sulfate 325 mg oral enteric coated tablet)??325 Milligram 1 tablet By Mouth Daily for 90 Days Fexofenadine (fexofenadine 180 mg oral tablet)??1 tab(s) 180 Milligram By Mouth Daily Fluticasone Nasal (fluticasone 50 mcg/inh nasal spray)??1 spray(s) 50 Microgram Nares, Both 2 timesa day Lactulose (lactulose 10 g/15 mL oral and rectal liquid)??30 Milliliter 20 gram By Mouth Every otherday Levothyroxine (levothyroxine 0.137 mg oral tablet)??1 tab(s) 137 Microgram By Mouth Daily Metolazone (metolazone 5 mg oral tablet)??5 Milligram 1 tablet By Mouth Every 72 hours as needed for edema Milk of Magnesia (Milk of Magnesia 1200 mg/15 mL oral liquid)??30 Milliliter 2,400 Milligram By Mouth Every 24 hours as needed Constipation Miscellaneous Rx (Glucerna)??237 Milliliter Oral twice a day Multivitamin (multivitamin Lipotropic with Multivitamins oral tablet)??1 tab(s) By Mouth Daily Paroxetine (PARoxetine 30 mg oral tablet)??1 tab(s) 30 Milligram By Mouth Daily Polyethylene Glycol 3350 (MiraLax oral powder for reconstitution)??1 pack/packet By Mouth Daily Potassium Chloride (potassium chloride 20 mEq oral tablet, extended release)??1 tab(s) 20 Milliequivalent By Mouth Daily Senna (Senna 8.6 mg oral tablet)??17.2 Milligram 2 tab(s) By Mouth Daily at bedtime Sodium Biphosphate-Sodium Phosphate (Fleet Enema 19 gm-7 gm rectal enema)??1 Each Rectally Every 24hours as needed as needed for constipation Tamsulosin (tamsulosin 0.4 mg oral capsule)??0.4 Milligram 1 capsule By Mouth Daily torsemide (torsemide 60 mg oral tablet)??1 tab(s) 60 Milligram By Mouth 2 times a day Tramadol (traMADol 50 mg oral tablet)??1 tab(s) 50 Milligram By Mouth Every 8 hours as needed Pain , Severe Witch Zee Topical (witch zee topical pad)??1 michelle Topically Every 2 hours as needed Vaginal Pain/Burning ? Results Recent Labs BLOOD COUNT & DIFF WBC 7.3 k/mm3 ()?? 08/27/2025 10:36 RBC 3.67 m/mm3 (Low)?? 08/27/2025 10:36 Hgb 10.5 Gm/dL (Low)?? 08/27/2025 10:36 Hct 34.1 % (Low)?? 08/27/2025 10:36 MCV 92.9 femtoliters ()?? 08/27/2025 10:36 MCH 28.6 pg ()?? 08/27/2025 10:36 MCHC 30.8 Gm/dL (Low)?? 08/27/2025 10:36 Platelet Count 254 k/mm3 ()?? 08/27/2025 10:36 RDW-SD 62.4 femtoliters (High)?? 08/27/2025 10:36 MPV 9.8 femtoliters ()?? 08/27/2025 10:36 Nucleated RBC (Automated) 0.0 #/100 WBC'S ()?? 08/27/2025 10:36 Abs. NRBC 0.0 k/mm3 ()?? 08/27/2025 10:36 Abs. Neut 6.1 k/mm3 ()?? 08/27/2025 10:36 Abs. Lymph 0.3 k/mm3 (Low)?? 08/27/2025 10:36 Abs. [place] 0.7 k/mm3 ()?? 08/27/2025 10:36 Abs. Eo 0.0 k/mm3 ()?? 08/27/2025 10:36 Abs. Baso 0.0 k/mm3 ()?? 08/27/2025 10:36 Neut % 84.5 % (High)?? 08/27/2025 10:36 Lymph % 4.6 % (Low)?? 08/27/2025 10:36 [place] % 9.7 % ()?? 08/27/2025 10:36 Eos % 0.1 % ()?? 08/27/2025 10:36 Baso % 0.1 % ()?? 08/27/2025 10:36 Imm Gran 1.0 % ()?? 08/27/2025 10:36 Abs. Imm Gran 0.1 k/mm3 ()?? 08/27/2025 10:36 ?? CARDIAC CK, Total 32 units/L ()?? 08/27/2025 10:36 Nt-Probnp 43326 pg/mL (High)?? 08/27/2025 10:36 High Sensitivity Troponin (HSTnT) 172 ng/L (Critical)?? 08/27/2025 10:36 ?? CHEM GENERAL Sodium 128 mmol/L (Low)?? 08/27/2025 10:36 Potassium 4.0 mmol/L ()?? 08/27/2025 10:36 Chloride 89 mmol/L (Low)?? 08/27/2025 10:36 Bicarbonate Level 24 mmol/L ()?? 08/27/2025 10:36 Anion Gap 15 mmol/L ()?? 08/27/2025 10:36 Glucose Level 88 mg/dL ()?? 08/27/2025 10:36 BUN 89 mg/dL (High)?? 08/27/2025 10:36 Creatinine-Blood 2.50 mg/dL (High)?? 08/27/2025 10:36 Estimated GFR Creatinine 19 ML/MIN/1.73 M2 ()?? 08/27/2025 10:36 Calcium 9.4 mg/dL ()?? 08/27/2025 10:36 ?? MISC. CHEMISTRY Procalcitonin 0.38 ng/mL ()?? 08/27/2025 10:36 ?? VIROLOGY Influenza A PCR POSITIVE (Abnormal)?? 08/27/2025 10:55 Influenza B PCR NEGATIVE ()?? 08/27/2025 10:55 RSV PCR NEGATIVE ()?? 08/27/2025 10:55 COVID-19 PCR Result NEGATIVE ()?? 08/27/2025 10:55 ? Microbiology ?? COVID-19, RSV, and Flu A/B, Rapid PCR?? Completed?? Source: Nasal Body Site: Nose Collected Dt/Tm: 08/27/2025 10:16 Last Updated Dt/Tm: 08/27/2025 12:32 ? Electronically Signed on 08/27/25 05:20 PM Franco Dunbar MD EKG study * Event Display: ECG 12-Lead Authored Date: Please click on pdf link to open report * Event Display: ECG 12-Lead Authored Date: Ventricular Rate: 79 BPM Atrial Rate: 79 BPM P-R Interval: 160 ms QRS Duration: 164 ms Q-T Interval: 466 ms QTC Calculation(Bazett): 534 ms P Benton: 23 degrees R Benton: 112 degrees T [place]enton: -52 degrees Atrial-sensed ventricular-paced rhythm Biventricular pacemaker detected Abnormal ECG When compared with ECG of 19-Jul-2025 17:29, Vent. rate has increased by 14 bpm Confirmed by Sundar Robins ([id number]) on 08/27/2025 11:03:05 AM [place]: Sundar Robins Procedure * Event Display: Cardiac Rhythm Strips Authored Date: Hospital Progress note * Chris Davila RN: PERFORM, SIGN, VERIFY Event Display: Progress Note Hospital Authored Date: Patient: AMINA JOHNSTON Age: 80 years Sex: Female : 1945 Associated Diagnoses: None Author: Chris Davila RN Findings Problem Related to Alteration in Cardiac Function (new) : Alteration in Cardiac Function/new 08/28/2025 21:00 EST Alteration in Cardiac Status Related to Heart failure Goals & Outcomes, Cardiac Status Pt will resume/maintain adequate cardiac output, Pt will resume/maintain adequate hemodynamic status, Pt will resume/maintain adequate respiratory function, Pt will resume/maintain intact neuro function, Pt will maintain adequate GI/ function appropriate for pt, Pt will maintain adequate nutrition status, Pt/caregiver will state understanding of diagnosis, Pt/caregiver will state strategies to reduce risk factors Cardiac Interventions Implemented Assess/monitor cardiac status, Assess/monitor neuro status, Assess/monitor respiratory status, Assess for tolerance of IV infusions; verify rate & dose, Document & Monitor O2 Sats; Administer O2 as ordered, If no bowel movement in 3 days activate bowel regime, Monitor & document daily weight, Prep pt for treatments & procedures, Teach/encourage deep breath & cough exercises, Teach/encourage use of incentive spirometer, Team conversation regarding appropriate level of care, Use adjunctive therapies per Standards of Practice Goals/Interventions, Cardiac Yes Cardiac, Problem Start 08/28/2025 6:54 Reviewed Plan with, Cardiac Status Patient Patient Progression, Cardiac Status Patient progressing according to plan (Modified) . Nursing Data Cardiac Data. : Cardiac Data. 08/28/2025 20:45 EST Heart Sounds S1, S2 Pacemaker Yes Cardiac Rhythm Paced Edema, Left Pretibial 2+ mild Edema, Right Pretibial 2+ mild Ankle, left 2+ mild Ankle, right 2+ mild Pedal, left 2+ mild Pedal, right 2+ mild ekg monitor tech Yes Cardiovascular WNL except . Evaluation A&Ox3 throughout shift, continues to report trouble breathing, aware that she is saturating at 98-100% on Nasal Canula. Repositioning helps with breathing and with the pain from her wounds on hercoccyx. V paced on tele, denied chets pain. Remains edematous in LE, producing concentrated yellow urine. Bladder scanned for 275, was able to void over 600cc this shift, which was more than she tookin. Continunes on droplet precautions for flu. Lungs with crackles, albuterol and acapella being used. Continuign to monitor cardiac and resp status while admitted. Continuing to reposition during shift for respiratory ccomfort and to assist with healing in wounds. Electronically Signed on 08/29/25 07:13 AM Giovanni ERVIN, Chris Lucas DO, Mustapha Denney: PERFORM Event Display: Progress Note Hospital Authored Date: [id number] Patient: ??AMINA JOHNSTON ? Age:??80 Years?Sex:??Female?:??1945?LOC:??[facility]?? Subjective I saw and examined the patient, she just admitted yesterday, she is a long-term [facility] resident,??she was admitted with??acute??influenza A with a left lower lobe pneumonia. Chronic issues include diabetes chronic kidney disease chronic diastolic heart failure coronary disease and anemia and sleep apnea.?? Hypothyroidism. Her chronic issues are stable and we are giving her??Tamiflu and antibiotics for her respiratory disease. ?? I updated the patient has talked to her daughter??and she is not yet ready for discharge. Review of Systems No new complaints or issues,??see below Allergies Allergies ?(Active and Proposed Allergies Only) Other Food Allergy? (Severity: Unknown severity, Onset: Unknown) ?Comments: cheese that is aged with mold ?Comments: cheese allergy bethanechol (Severity: <not entered>, Onset: Unknown) metoprolol (Severity: <not entered>, Onset: Unknown) Mushrooms? (Severity: Unknown severity, Onset: Unknown) ?Reactions: Mushrooms and toadstools Norvasc? (Severity: Unknown severity, Onset: Unknown) Urecholine? (Severity: Unknown severity, Onset: Unknown) ?Reactions: anorexia and loss of sight Percocet 7.5/325? (Severity: Unknown severity, Onset: Unknown) ?Reactions: Urceolaria urechi, Urceolaria urechi, Urceolaria urechi, hallucinates ? Past Medical History Active Problems(32) Anemia Anxiety Bladder incontinence CAD (coronary artery disease) Chronic back pain Chronic HFrEF (heart failure with reduced ejection fraction) Chronic kidney disease, stage 3b CKD (chronic kidney disease) stage 4, GFR 15-29 ml/min Constipation Depression Depressive disorder Diabetes mellitus Diabetes mellitus type II, uncontrolled Generalized weakness Heart failure with preserved ejection fraction History of anemia due to CKD History of implantable cardioverter-defibrillator (ICD) placement History of Mobitz type II block HLD (hyperlipidemia) Hypertension Hypothyroidism Ischemic cardiomyopathy Macrocytic anemia Moderate mitral stenosis Mood disorder MALA (obstructive sleep apnea) Osteoarthritis Periodic limb movement Psoriasis Psoriatic arthritis RSV infection T2DM (type 2 diabetes mellitus) ? Past Surgical History Percutaneous coronary intervention: 05/25/14 Carpal tunnel release -Left Cholecystectomy Cataract Biopsy of liver Appendectomy ? Objective Vital Signs?? Temperature: 98.4 DegF (08/28/25 08:00:00) Temperature Route: Oral (08/28/25 08:00:00) Pulse Rate: 65 bpm (08/28/25 08:00:00) Respiratory Rate: 18 br/min (08/28/25 08:00:00) Systolic Blood Pressure: 100 mm Hg (08/28/25 08:00:00) Diastolic Blood Pressure: 57 mm Hg (08/28/25 08:00:00) Blood pressure sites: Arm, right (08/28/25 08:00:00) Mean Arterial Pressure: 76 mm Hg (08/28/25 01:33:00) Pulse Pressure: 43 mm Hg (08/28/25 08:00:00) Oxygen Saturation: 100 % (08/28/25 08:00:00) Liters per Minute: 3 L/min (08/28/25 08:00:00) Mode of Delivery (Oxygen): Nasal cannula (08/28/25 08:00:00) Early Warning Score: 3 (08/28/25 11:21:55) ? Pain Scores?? No qualifying data available. ?? Intake/Output? 08/27 12:34 08/28 07:00 08/27 07:00 08/26 07:00 08/25 07:00 ?? 08/28 12:24 08/28 12:24 08/28 06:59 08/27 06:59 08/26 06:59 Intake ?480 ?240 ?240 ?0 ?0 Output ?650 ?100 ?550 ?0 ?0 Net Total ? -170 ?140 ? -310 ?0 ?0 ? Physical Exam Alert Chest??decreased left lower lobe Cardiovascular: Regular rhythm Abdomen soft nontender Extremities no edema She has minimal ambulation at baseline Labs reviewed X-ray and labs reviewed _ Inpatient Medications Medications (28) Active SCHEDULED: (16) Albuterol 0.083% Inhalation Solution (Albuterol 0.083% inhalation bhavesh) ??2.5 mg 3 mL, BAND Nebulizer, 3 times a day Aspirin 81 mg EC Tablet (aspirin 81 mg oral delayed release tablet) ??81 mg, By Mouth, Daily Atorvastatin 80 mg Tablet (atorvastatin 80 mg oral tablet) ??80 mg, By Mouth, Daily at bedtime Benzonatate 100 mg Capsule (Tessalon Perles) ??100 mg, By Mouth, 3 times a day Ceftriaxone 1 Gm Inj (Ceftriaxone Inj) ??1 Gm, IVPB, Every 24 hours Dextromethorphan-Guaifenesin 20 mg-200 mg/10 mL Liqu UD (Robitussin DM Liquid) ??10 mL, By Mouth, Every 6 hours Doxycycline 100 mg Tablet (Doxycycline Tablet) ??100 mg, By Mouth, Every 12 hours Ferrous Sulfate 325 mg EC Tablet (ferrous sulfate 325 mg oral enteric coated tablet) ??325 mg, By Mouth, Daily Heparin 5000 units/mL Inj (1 mL) (Heparin Inj) ??5,000 units 1 mL, Subcutaneous Injection, 3 times a day Insulin Lispro 100 units/mL Inj (Insulin LISPRO Sliding Scale) ??2-10 units, Subcutaneous Injection, 3 times a day before meals Levothyroxine 137 mcg Tablet (levothyroxine 0.137 mg oral tablet) ??137 mcg, By Mouth, Daily NaCl 0.9% Flush 3ml (NaCL 0.9% Flush) ??3 mL, IV Push, Every 8 hours Oseltamivir 75 mg Capsule (Tamiflu Capsule) ??75 mg, By Mouth, Daily Paroxetine 10 mg Tablet (PARoxetine 10 mg oral tablet) ??30 mg, By Mouth, Daily Tamsulosin 0.4 mg Capsule (tamsulosin 0.4 mg oral capsule) ??0.4 mg, By Mouth, Daily Torsemide 20 mg tablet (torsemide 20 mg oral tablet) ??60 mg 3 tablet, By Mouth, 2 times a day CONTINUOUS: (0) PRN: (12) Acetaminophen 325 mg Tablet (Acetaminophen Tablet) ??650 mg, By Mouth, Every 4 hours Clonazepam 0.5 mg Tablet (clonazePAM 0.5 mg oral tablet) ??0.25 mg, By Mouth, Every 12 hours Dextrose Inj Syringe (Dextrose 50% Inj Syringe (25Gm)) ??12.5 Gm, IV Push Slowly, Every 20 minutes Dextrose Inj Syringe (Dextrose 50% Inj Syringe (25Gm)) ??25 Gm, IV Push Slowly, Every 15 minutes Glucagon 1 mg Inj (Glucagon Inj) ??1 mg, Intramuscular, Once Glucose 40% Gel (15 Gm) (Glucose Gel) ??15 Gm, By Mouth, Every 20 minutes Glucose 40% Gel (15 Gm) (Glucose Gel) ??30 Gm, By Mouth, Every 20 minutes Melatonin 3 mg Tablet (Melatonin Tablet) ??3 mg, By Mouth, Daily at bedtime NaCl 0.9% Flush 3ml (NaCL 0.9% Flush) ??3 mL, IV Push, Every 8 hours Polyethylene Glycol 17 Gm Powder (MiraLax Powder) ??17 Gm 1 pack/packet, By Mouth, Daily Senna Tablet ??8.6 mg 1 tablet, By Mouth, 2 times a day Simethicone 80 mg Chewable Tablet (Simethicone Tablet) ??80 mg, Chew, 3 times a day ? 72 Hour Antibiotic History Active Antibiotics Calendar Day Last Administered First Administered Doxycycline??100 mg, By Mouth, Every 12 hours ?2 08/28/2025 05:23 08/27/2025 17:41 ? Stopped Antibiotics Stop Date/Time Last Administered First Administered Ceftriaxone??1 Gm, 200 mL/hr, IVPB, Once 08/27/2025 13:53 08/27/2025 13:53 08/27/2025 13:53 ? Results Recent Labs BLOOD COUNT & DIFF WBC 7.3 k/mm3 ()?? 08/27/2025 10:36 RBC 3.67 m/mm3 (Low)?? 08/27/2025 10:36 Hgb 10.5 Gm/dL (Low)?? 08/27/2025 10:36 Hct 34.1 % (Low)?? 08/27/2025 10:36 MCV 92.9 femtoliters ()?? 08/27/2025 10:36 MCH 28.6 pg ()?? 08/27/2025 10:36 MCHC 30.8 Gm/dL (Low)?? 08/27/2025 10:36 Platelet Count 254 k/mm3 ()?? 08/27/2025 10:36 RDW-SD 62.4 femtoliters (High)?? 08/27/2025 10:36 MPV 9.8 femtoliters ()?? 08/27/2025 10:36 Nucleated RBC (Automated) 0.0 #/100 WBC'S ()?? 08/27/2025 10:36 Abs. NRBC 0.0 k/mm3 ()?? 08/27/2025 10:36 Abs. Neut 6.1 k/mm3 ()?? 08/27/2025 10:36 Abs. Lymph 0.3 k/mm3 (Low)?? 08/27/2025 10:36 Abs. [place] 0.7 k/mm3 ()?? 08/27/2025 10:36 Abs. Eo 0.0 k/mm3 ()?? 08/27/2025 10:36 Abs. Baso 0.0 k/mm3 ()?? 08/27/2025 10:36 Neut % 84.5 % (High)?? 08/27/2025 10:36 Lymph % 4.6 % (Low)?? 08/27/2025 10:36 [place] % 9.7 % ()?? 08/27/2025 10:36 Eos % 0.1 % ()?? 08/27/2025 10:36 Baso % 0.1 % ()?? 08/27/2025 10:36 Imm Gran 1.0 % ()?? 08/27/2025 10:36 Abs. Imm Gran 0.1 k/mm3 ()?? 08/27/2025 10:36 ?? CARDIAC CK, Total 32 units/L ()?? 08/27/2025 10:36 Nt-Probnp 50297 pg/mL (High)?? 08/27/2025 10:36 High Sensitivity Troponin (HSTnT) 161 ng/L (Critical)?? 08/27/2025 17:25 ?? CHEM GENERAL Sodium 128 mmol/L (Low)?? 08/27/2025 10:36 Potassium 4.0 mmol/L ()?? 08/27/2025 10:36 Chloride 89 mmol/L (Low)?? 08/27/2025 10:36 Bicarbonate Level 24 mmol/L ()?? 08/27/2025 10:36 Anion Gap 15 mmol/L ()?? 08/27/2025 10:36 Glucose Level 88 mg/dL ()?? 08/27/2025 10:36 Glucose, POC 62 mg/dL (Low)?? 08/28/2025 11:19 BUN 89 mg/dL (High)?? 08/27/2025 10:36 Creatinine-Blood 2.50 mg/dL (High)?? 08/27/2025 10:36 Estimated GFR Creatinine 19 ML/MIN/1.73 M2 ()?? 08/27/2025 10:36 Osmolality 308 mOs/kg (High)?? 08/27/2025 10:36 Calcium 9.4 mg/dL ()?? 08/27/2025 10:36 Lactate 1.1 mmol/L ()?? 08/27/2025 17:25 ?? MISC. CHEMISTRY Procalcitonin 0.38 ng/mL ()?? 08/27/2025 10:36 ?? VIROLOGY Influenza A PCR POSITIVE (Abnormal)?? 08/27/2025 10:55 Influenza B PCR NEGATIVE ()?? 08/27/2025 10:55 RSV PCR NEGATIVE ()?? 08/27/2025 10:55 COVID-19 PCR Result NEGATIVE ()?? 08/27/2025 10:55 ? Abnormal Labs ?? CARDIAC High Sensitivity Troponin (HSTnT)?161 ng/L (Critical)?08/27/2025 17:25 ?? CHEM GENERAL Glucose, POC?62 mg/dL (Low)?08/28/2025 11:19 ?? Note: Critical results are displayed in red. ? Assessment/Plan Chief Complaint: 80 female. GCS 15. SOB X2 months, worsening the last few days. 4L o2 via NC ?? Diagnoses 1. ??Influenza A ??(J10.1) 2. ??Left lower lobe pneumonia ??(J18.9) 3. ??Diabetes mellitus with stage 4 chronic kidney disease ??(E11.22) 4. ??CAD (coronary artery disease) ??(I25.10) 5. ??Chronic HFrEF (heart failure with reduced ejection fraction) ??(I50.22) 6. ??Mood disorder ??(F39) 7. ??History of anemia due to CKD ??(N18.9) 8. ??MALA (obstructive sleep apnea) ??(G47.33) 9. ??Hypothyroidism ??(E03.9) ?? Assessment:??80-year-old female with acute influenza A left lower lobe pneumonia. Chronic issues and chronic respiratory failure chronic diastolic heart failure??diabetes with chronic kidney disease stage IV anemia hypothyroidism anxiety mood disorder.??Chronic anemia. ?? Influenza A (J10.1):??Continue Tamiflu supportive medicines including Tessalon Perles, added albuterol, increase to mucolytics, continue antibiotics and observe. ?? Left lower lobe pneumonia (J18.9):??Same treatment as above ?? CAD (coronary artery disease) (I25.10):??No change in aspirin and her chronic medicines. ?? Chronic HFrEF (heart failure with reduced ejection fraction) (I50.22):??Continue oral diuretics. ?? Mood disorder (F39):??No change in her chronic medicines ?? History of anemia due to CKD (N18.9):??Stable. ?? Hypothyroidism (E03.9):??No change in Synthroid ?? Diabetes mellitus with stage 4 chronic kidney disease (E11.22):??Continue insulin ?? VTE Prophylaxis:??Continue heparin ?VTE Prophylaxis Assessment:??VTE Prophylaxis Ordered ?? Discharge Planning:??Not ready for discharge ?? Code Status:??DNR/DNI ?Order Code Status:??Code Status Ordered ? Electronically Signed on 08/28/25 12:24 PM Mustapha Lucas DO, RN, Michael: PERFORM, SIGN, VERIFY Event Display: Progress Note Hospital Authored Date: [id number] Patient: AMINA JOHNSTON Age: 80 years Sex: Female : 1945 Associated Diagnoses: None Author: Oscar Blackwell RN Findings Problem Related to Alteration in Cardiac Function (new) : Alteration in Cardiac Function/new 08/28/2025 6:00 EST Alteration in Cardiac Status Related to Heart failure Goals & Outcomes, Cardiac Status Pt will resume/maintain adequate cardiac output, Pt will resume/maintain adequate hemodynamic status, Pt will resume/maintain adequate respiratory function, Pt will resume/maintain intact neuro function, Pt will maintain adequate GI/ function appropriate for pt, Pt will maintain adequate nutrition status, Pt/caregiver will state understanding of diagnosis, Pt/caregiver will state strategies to reduce risk factors Cardiac Interventions Implemented Assess/monitor cardiac status, Assess/monitor neuro status, Assess/monitor respiratory status, Assess for tolerance of IV infusions; verify rate & dose, Document& Monitor O2 Sats; Administer O2 as ordered, Ensure adequate caloric intake, If no bowel movement in 3 days activate bowel regime, Monitor & document daily weight, Teach/encourage deep breath& cough exercises, Team conversation regarding appropriate level of care, Turn & repositionQ2 hours per activity restrictions, Use adjunctive therapies per Standards of Practice Goals/Interventions, Cardiac Yes Cardiac, Problem Start 08/28/2025 6:54 Reviewed Plan with, Cardiac Status Patient Patient Progression, Cardiac Status Plan Initiation . Alteration in Respiratory Function (new) : Alteration in Respiratory Function/new 08/28/2025 6:00 EST Alteration in Resp Status Related to Influenza/RSV, Pneumonia Goals & Outcomes, Respiratory Pt will maintain/resume baseline physical assessment, Pt will notdevelop complications r/t mechanical ventilation, Pt will maintain adequate nutritional intake, Pt will maintain/resume normal fluid/electrolyte balance, Pt will not develop complications r/t immobility, Pt will demonstrate proper technique w/self care procedures Interventions, Respiratory Assess/monitor tolerance to IV infusions; verify rate/dose, Assess for and report S&S of respiratory distress, Position for comfort & optimal oxygenation, Teach/encourage use of incentive spirometer, Teach purse lip breathing as needed for breathing retraining, Teach tripod positioning to promote air exchange BH Goals/Interventions, Respiratory Yes Respiratory, Problem Start 08/28/2025 6:55 Reviewed Plan with, Respiratory Patient Patient Progression, Respiratory Plan Initiation . Nursing Data Cardiac Data. : Cardiac Data. 08/28/2025 3:00 EST Cardiovascular Assessment Status Unchanged from recorder's assessment 08/27/2025 21:00 EST Nail Bed Color, Fingers [place] Nail Bed Color, Toes [place] Skin Temperature Upper Extremities Warm Skin Temperature Lower Extremities Warm Heart Rhythm Regular Pacemaker Yes Cardiac Rhythm Paced Capillary Refill < 3 seconds Radial Pulse, Left Normal Radial Pulse, Right Normal Dorsalis Pedis Pulse, Left Weak Dorsalis Pedis Pulse, Right Weak ekg monitor tech Yes Cardiovascular WNL except . Vital Signs : VITAL SIGNS SECTION 08/28/2025 1:33 EST Temperature 98.0 DegF Temperature Route Oral Pulse Rate 77 bpm Respiratory Rate 18 br/min Systolic Blood Pressure 115 mm Hg Diastolic Blood Pressure 57 mm Hg Blood pressure sites Arm, right Mean Arterial Pressure 76 mm Hg Pulse Pressure 58 mm Hg Oxygen Saturation 98 % Liters per Minute 3 L/min Mode of Delivery (Oxygen) Room air 08/27/2025 20:52 EST Temperature 98.7 DegF Temperature Route Oral Pulse Rate 65 bpm Respiratory Rate 16 br/min Systolic Blood Pressure 114 mm Hg Diastolic Blood Pressure 67 mm Hg Blood pressure sites Arm, right Mean Arterial Pressure 83 mm Hg Pulse Pressure 47 mm Hg Oxygen Saturation 100 % Liters per Minute 4 L/min Mode of Delivery (Oxygen) Nasal cannula . Evaluation Patient A&O x3, diminished LS throughout on 4L transitioned to 3L NC tolerating well, v-paced on tele. Patient voiding scant to moderate concentrated yellow urine with primafit external cath. Patient denies any light headed/dizziness, sob, chest pain, or n/v. Patient initially agitated with staff, later became calm and cooperative throughout night. Plan of care: continued antibiotic for pneumonia and monitor respiratory status for flu. Continued cardiac and fluid volume status monitoring. See CIS for full biophysical assessment. The bed is in the lowest locked position with bed alarm on. The patient educated on use of call agarwal for assistance and ambulation and is within reach. . Electronically Signed on 08/28/25 06:58 AM Rishi ERVIN, Oscar Shook * Event Display: Ultrasound Point of Care Authored Date: [id number] Note * Isaac Grajeda RN: PERFORM Event Display: Discharge/Transfer Note Hospital Authored Date: [id number] Nursing Discharge Note Entered On: 08/29/2025 17:20 EST Performed On: 08/29/2025 17:20 EST by Isaac Grajeda RN Nursing Discharge Note 2 Discharge Level of Care at Discharge : detention facility Discharge Time : 08/29/2025 17:20 EST Discharge Nursing Homes/Rehab Facilities : [facility] Melter Loader Utilized : No Patient Left Unit Via : Ambulance Patient Accompanied Off Unit with : Ambulance/Chair Van Personnel Handover Given to Transport Personnel : Yes DC Instructions Provided & Signed by Pt : Yes Patient Understands D/C Instructions : Yes Patient Instructions Discharge Signed : Yes Did Pt have Specialty Bed or Wound Vac : No Isaac Grajeda RN - 08/29/2025 17:20 EST Electronically Signed on 08/29/25 05:20 PM Isaac Grajeda RN * Mustapha Lucas DO: PERFORM Event Display: Discharge/Transfer Note Hospital Authored Date: [id number] Patient: ??AMINA JOHNSTON ? Age:??80 Years?Sex:??Female?:??1945?LOC:[facility]?? Patient Information Discharge Location: 7 Primary Care Physician: Av Flores MD Admit Date/Time: 08/27/2025 12:34 Discharge date: 29 August 2025 Discharge Disposition Discharge Disposition: Snf Facility/Rehab Discharge Diagnosis Influenza A (J10.1) Left lower lobe pneumonia (J18.9) Diabetes mellitus with stage 4 chronic kidney disease (E11.22) CAD (coronary artery disease) (I25.10) Chronic HFrEF (heart failure with reduced ejection fraction) (I50.22) Mood disorder (F39) History of anemia due to CKD (N18.9) MALA (obstructive sleep apnea) (G47.33) Hypothyroidism (E03.9) _ Discharge Medications Acetaminophen (acetaminophen 325 mg oral tablet)??650 Milligram 2 tablet By Mouth Every 6 hours as needed NTE 3 gm/24 hours Pain , Mild Albuterol (albuterol 0.083% inhalation solution)??3 Milliliter 2.5 Milligram Inhalation 2 times a day Albuterol/Ipratropium (albuterol-ipratropium 3 mg-0.5 mg/3 ml inhalation solution)??3 Milliliter Inhalation 3 times a day as needed Wheezing/Shortness of Breath Aspirin (aspirin 81 mg oral delayed release tablet)??81 Milligram By Mouth Daily Atorvastatin (atorvastatin 80 mg oral tablet)??1 tab(s) By Mouth Daily at bedtime Benzocaine Topical (Vagisil Feminine Cream)??1 michelle Vaginally Every 4 hours as needed Pain , Moderate Benzonatate (benzonatate 100 mg oral capsule)??100 Milligram By Mouth 3 times a day Bisacodyl (Dulcolax 10 mg rectal suppository)??1 suppository(ies) 10 Milligram Rectally Daily as needed as needed for constipation Cefdinir (cefdinir 300 mg oral capsule)??1 capsule 300 Milligram By Mouth Every 24 hours for 5 Days Clonazepam (clonazePAM 0.5 mg oral tablet)??1 tab(s) 0.5 Milligram By Mouth Daily at bedtime as needed Insomnia/ anxiety Diclofenac Topical (Voltaren Arthritis Pain 1% topical gel)??1 michelle Topically 2 times a day Applied to Right Shoulder Docusate (Colace sodium 100 mg oral capsule)??100 Milligram 1 capsule By Mouth 2 times a day Durable Medical Equipment (CPAP ??Machine)??See Instructions AutoCPAP 8-20 cm H20, use Daily when sleeping Ferrous Sulfate (ferrous sulfate 325 mg oral enteric coated tablet)??325 Milligram 1 tablet By Mouth Daily for 90 Days Fexofenadine (fexofenadine 180 mg oral tablet)??1 tab(s) 180 Milligram By Mouth Daily Fluticasone Nasal (fluticasone 50 mcg/inh nasal spray)??1 spray(s) 50 Microgram Nares, Both 2 timesa day Lactulose (lactulose 10 g/15 mL oral and rectal liquid)??30 Milliliter 20 gram By Mouth Every otherday Levothyroxine (levothyroxine 0.137 mg oral tablet)??1 tab(s) 137 Microgram By Mouth Daily Metolazone (metolazone 5 mg oral tablet)??5 Milligram 1 tablet By Mouth Every 72 hours as needed for edema Milk of Magnesia (Milk of Magnesia 1200 mg/15 mL oral liquid)??30 Milliliter 2,400 Milligram By Mouth Every 24 hours as needed Constipation Miscellaneous Rx (Glucerna)??237 Milliliter Oral twice a day Multivitamin (multivitamin Lipotropic with Multivitamins oral tablet)??1 tab(s) By Mouth Daily Oseltamivir (Tamiflu 75 mg oral capsule)??1 capsule 75 Milligram By Mouth Daily for 3 Days Paroxetine (PARoxetine 30 mg oral tablet)??1 tab(s) 30 Milligram By Mouth Daily Polyethylene Glycol 3350 (MiraLax oral powder for reconstitution)??1 pack/packet By Mouth Daily Potassium Chloride (potassium chloride 20 mEq oral tablet, extended release)??1 tab(s) 20 Milliequivalent By Mouth Daily Senna (Senna 8.6 mg oral tablet)??17.2 Milligram 2 tab(s) By Mouth Daily at bedtime torsemide (torsemide 60 mg oral tablet)??1 tab(s) 60 Milligram By Mouth 2 times a day Tramadol (traMADol 50 mg oral tablet)??1 tab(s) 50 Milligram By Mouth Every 8 hours as needed Pain , Severe ? Discharge Medications New Benzonatate (benzonatate 100 mg oral capsule)100 Milligram Oral 3 times a day. Cefdinir (cefdinir 300 mg oral capsule)1 capsule Oral every 24 hours for 5 Days. Refills: 0. Oseltamivir (Tamiflu 75 mg oral capsule)1 capsule Oral Daily for 3 Days. Refills: 0. Changed Acetaminophen (acetaminophen 325 mg oral tablet)2 tab(s) Oral every 6 hours as needed Pain , Mild. NTE 3 gm/24 hours. Clonazepam (clonazePAM 0.5 mg oral tablet)1 tab(s) Oral Daily at Bedtime as needed Insomnia/ anxiety. Unchanged Albuterol (albuterol 0.083% inhalation solution)3 Milliliter Inhalation twice a day. Albuterol/Ipratropium (albuterol-ipratropium 3 mg-0.5 mg/3 ml inhalation solution)3 Milliliter Inhalation 3 times a day as needed Wheezing/Shortness of Breath. Aspirin (aspirin 81 mg oral delayed release tablet)81 Milligram Oral Daily. Atorvastatin (atorvastatin 80 mg oral tablet)1 tab(s) Oral Daily at Bedtime. Refills: 0. Benzocaine Topical (Vagisil Feminine Cream)1 michelle Vaginally every 4 hours as needed Pain , Moderate. Bisacodyl (Dulcolax 10 mg rectal suppository)1 suppository(ies) Per rectum Daily as needed as needed for constipation. Diclofenac Topical (Voltaren Arthritis Pain 1% topical gel)1 michelle Topically twice a day. Applied to Right Shoulder. Docusate (Colace sodium 100 mg oral capsule)1 capsule Oral twice a day. Durable Medical Equipment (CPAP Machine)See Instructions. AutoCPAP 8-20 cm H20, use Daily when sleeping. Ferrous Sulfate (ferrous sulfate 325 mg oral enteric coated tablet)1 tab(s) Oral Daily for 90 Days.Refills: 0. Fexofenadine (fexofenadine 180 mg oral tablet)1 tab(s) Oral Daily. Fluticasone Nasal (fluticasone 50 mcg/inh nasal spray)1 spray(s) Nares, Both twice a day. Lactulose (lactulose 10 g/15 mL oral and rectal liquid)30 Milliliter Oral every other day. Levothyroxine (levothyroxine 0.137 mg oral tablet)1 tab(s) Oral Daily. Refills: 1. Metolazone (metolazone 5 mg oral tablet)1 tab(s) Oral every 72 hours as needed for edema. Milk of Magnesia (Milk of Magnesia 1200 mg/15 mL oral liquid)30 Milliliter Oral every 24 hours as needed Constipation. Miscellaneous Rx (Glucerna)237 Milliliter Oral twice a day. Multivitamin (multivitamin Lipotropic with Multivitamins oral tablet)1 tab(s) Oral Daily. Paroxetine (PARoxetine 30 mg oral tablet)1 tab(s) Oral Daily. Polyethylene Glycol 3350 (MiraLax oral powder for reconstitution)1 pack/packet Oral Daily. Potassium Chloride (potassium chloride 20 mEq oral tablet, extended release)1 tab(s) Oral Daily. Senna (Senna 8.6 mg oral tablet)2 tab(s) Oral Daily at Bedtime. torsemide (torsemide 60 mg oral tablet)1 tab(s) Oral twice a day. Refills: 0. Tramadol (traMADol 50 mg oral tablet)1 tab(s) Oral every 8 hours as needed Pain , Severe. Discontinued Sodium Biphosphate-Sodium Phosphate (Fleet Enema 19 gm-7 gm rectal enema)1 Each Per rectum every 24hours as needed as needed for constipation. Tamsulosin (tamsulosin 0.4 mg oral capsule)1 capsule Oral Daily. Witch Zee Topical (witch zee topical pad)1 michelle Topically every 2 hours as needed Vaginal Pain/Burning. Allergies Allergies ?(Active and Proposed Allergies Only) Other Food Allergy? (Severity: Unknown severity, Onset: Unknown) ?Comments: cheese that is aged with mold ?Comments: cheese allergy bethanechol (Severity: <not entered>, Onset: Unknown) metoprolol (Severity: <not entered>, Onset: Unknown) Mushrooms? (Severity: Unknown severity, Onset: Unknown) ?Reactions: Mushrooms and toadstools Norvasc? (Severity: Unknown severity, Onset: Unknown) Urecholine? (Severity: Unknown severity, Onset: Unknown) ?Reactions: anorexia and loss of sight Percocet 7.5/325? (Severity: Unknown severity, Onset: Unknown) ?Reactions: Urceolaria urechi, Urceolaria urechi, Urceolaria urechi, hallucinates ? PCP Follow-Up/Heads-Up Follow-up with your primary care doctor Hospital Course ??Chief Complaint/Reason for Consultation 80 female. GCS 15. SOB X2 months, worsening the last few days. 4L o2 via NC History of Present Illness 80-year-old lady with PMH of CAD s/p PCI (to LAD, RCA, left LCx) CKD stage IV (baseline creatinine 2.0-2.4); chronic HFpEF; chronic hypoxic respiratory failure 2/2 CHF, on 4 L O2 at baseline; severe mitral stenosis; pulmonary hypertension; T2DM; chronic anemia/anemia of CKD/[place]; history of ESBL E. coli UTI; second-degree AV block s/p pacemaker; hypothyroidism; - [facility], for evaluation of SOB ongoing for last few days, dry cough, low back pain.?? At baseline patient on 4 L O2 NC, saturating similar to baseline.?? Also complains of generalized weakness. - Patient denies any sick contacts, fevers, chills, anginal chest pain, abdominal pain, nausea, vomiting, diarrhea, dysuria, seizures, focal weakness or sensory changes. ?? -CXR showed mild left retrocardiac streaky opacity, could be atelectasis or pneumonia.?? Unchanged small pleural effusions with adjacent atelectasis. ?? VITALS: Afebrile, HR 70s, RR 12-28, BP 90s-120s/50s-60s, saturating 97% on 3 L O2 NC.?? BP has beenlow normal, did get IV Lasix 60 mg prior to my evaluation, mentating well. ?? LABS: - WBC, platelet WNL; H/H 10.5/34 (anemia of CKD, chronic anemia, baseline) - Sodium 128 (serum awesome 80, urine osmolality and urine sodium pending) - Creatinine 2.50, BUN 89 (5 weeks back was 2.75, BUN 64); has CKD stage IV, seems around baseline. - High sensitive troponin 172---> has not been drawn, stat ordered as well, patient has not had any chest pain, EKG nonischemic, likely demand supply mismatch, but significant increase, will need to be evaluated for NSTEMI. - proBNP 40,000's; clinically no evidence of CHF exacerbation. - Viral panel positive for influenza A; negative for influenza B, RSV. - Creatinine clearance 15.7. EKG showed atrial sensed V paced rhythm.?? Does not fit Sgarbossa criteria. ED Meds: IV ceftriaxone 1 g, IV doxycycline 100 mg, IV Lasix 60 mg, IV Toradol 15 mg. Review of Systems -Pertinent positives and negative history mentioned in HPI. [1] ?? I saw and examined the patient. ??This is a 72-year-old female who lives in a nursing facility, I called update her daughter on??28 August, she was on her usual amount of oxygen which she takes chronically, she has history of coronary disease, chronic kidney disease and diabetes, the kidney disease is quite??advanced and stage IV. ?? She was diagnosed with flu and pneumonia and treated for the same diagnoses ?? Regarding the flu pneumonia: She improved on oxygen she is on her usual dose of oxygen she is on inhalers and breathing treatments and cough medicines,??she is taking Tamiflu dose adjusted for kidneyfunction and antibiotics. ??All this treatment can be continued at the nursing facility therefore Waldemar she is ready for discharge today, there is no signs of a ascending pneumonia encephalopathyor worsening renal failure along with her pneumonia and fluid ?? She had some mild hyponatremia repeating the value, provide it is close to baseline I will discharge her today. ?? Regarding her kidney disease: She should not receive Fleet enemas, this is contraindicated with thepatient with a GFR of less than 30 mL/min. ?? I saw and examined the patient and her lungs are clearing up, there is some expiratory wheezing butimproving, she is awake and alert she is eating and drinking and I have updated her daughter that she may go back to the nursing facility today provided that hyponatremia is improving ?? 35 minutes were spent, thank you for allowing us to follow your patient. ? Mustapha Lucas, DO [facility] Medicine Electronically signed Objective Vital Signs?? Temperature: 97.9 DegF (08/29/25 08:17:00) Temperature Route: Oral (08/29/25 08:17:00) Pulse Rate: 60 bpm (08/29/25 08:17:00) Respiratory Rate: 17 br/min (08/29/25 08:17:00) Systolic Blood Pressure: 99 mm Hg (08/29/25 08:17:00) Diastolic Blood Pressure:??49 mm Hg??Low (08/29/25 08:17:00) Blood pressure sites: Arm, left (08/29/25 08:17:00) Mean Arterial Pressure: 66 mm Hg (08/29/25 08:17:00) Pulse Pressure: 50 mm Hg (08/29/25 08:17:00) Oxygen Saturation: 99 % (08/29/25 08:17:00) Liters per Minute: 3 L/min (08/29/25 08:17:00) Mode of Delivery (Oxygen): Nasal cannula (08/29/25 08:17:00) Early Warning Score: 5 (08/29/25 08:20:43) ? Pending Results Sodium Level ordered on 08/29/2025 Strep Pneumoniae Urinary Ag ordered on 08/28/2025 Follow-Up Appointments Added Follow Up ?Time Frame ?Comments Mark ELAM, Av Dietz Patient Instructions Follow-up with the patient's primary care doctor at the nursing facility where she resides. ?? She should not receive Fleet enemas, she has chronic kidney disease. Post Discharge Care Diet: ??Diabetic Diet ?? Activity: ??Ambulate with assistance 3 times a day unless otherwise specified ?? Wound Care: ??Continue local wound care for the lower extremities ?? Code Status: ??DNR/DNI ?? Discharge Prescriptions ?ePrescribed, 08/29/25 10:41:00 EST ?Order Comment:?? Home Health Face to Face ^HomeHealthFTF Results Discharge Labs BLOOD COUNT & DIFF WBC 7.3 k/mm3 ()?? 08/27/2025 10:36 RBC 3.67 m/mm3 (Low)?? 08/27/2025 10:36 Hgb 10.5 Gm/dL (Low)?? 08/27/2025 10:36 Hct 34.1 % (Low)?? 08/27/2025 10:36 MCV 92.9 femtoliters ()?? 08/27/2025 10:36 MCH 28.6 pg ()?? 08/27/2025 10:36 MCHC 30.8 Gm/dL (Low)?? 08/27/2025 10:36 Platelet Count 254 k/mm3 ()?? 08/27/2025 10:36 RDW-SD 62.4 femtoliters (High)?? 08/27/2025 10:36 MPV 9.8 femtoliters ()?? 08/27/2025 10:36 Nucleated RBC (Automated) 0.0 #/100 WBC'S ()?? 08/27/2025 10:36 Abs. NRBC 0.0 k/mm3 ()?? 08/27/2025 10:36 Abs. Neut 6.1 k/mm3 ()?? 08/27/2025 10:36 Abs. Lymph 0.3 k/mm3 (Low)?? 08/27/2025 10:36 Abs. [place] 0.7 k/mm3 ()?? 08/27/2025 10:36 Abs. Eo 0.0 k/mm3 ()?? 08/27/2025 10:36 Abs. Baso 0.0 k/mm3 ()?? 08/27/2025 10:36 Neut % 84.5 % (High)?? 08/27/2025 10:36 Lymph % 4.6 % (Low)?? 08/27/2025 10:36 [place] % 9.7 % ()?? 08/27/2025 10:36 Eos % 0.1 % ()?? 08/27/2025 10:36 Baso % 0.1 % ()?? 08/27/2025 10:36 Imm Gran 1.0 % ()?? 08/27/2025 10:36 Abs. Imm Gran 0.1 k/mm3 ()?? 08/27/2025 10:36 ?? CARDIAC CK, Total 32 units/L ()?? 08/27/2025 10:36 Nt-Probnp 61744 pg/mL (High)?? 08/27/2025 10:36 High Sensitivity Troponin (HSTnT) 161 ng/L (Critical)?? 08/27/2025 17:25 ? CHEM GENERAL Sodium 128 mmol/L (Low)?? 08/27/2025 10:36 Potassium 4.0 mmol/L ()?? 08/27/2025 10:36 Chloride 89 mmol/L (Low)?? 08/27/2025 10:36 Bicarbonate Level 24 mmol/L ()?? 08/27/2025 10:36 Anion Gap 15 mmol/L ()?? 08/27/2025 10:36 Glucose Level 88 mg/dL ()?? 08/27/2025 10:36 Glucose, POC 77 mg/dL ()?? 08/29/2025 08:16 BUN 89 mg/dL (High)?? 08/27/2025 10:36 Creatinine-Blood 2.50 mg/dL (High)?? 08/27/2025 10:36 Estimated GFR Creatinine 19 ML/MIN/1.73 M2 ()?? 08/27/2025 10:36 Osmolality 308 mOs/kg (High)?? 08/27/2025 10:36 Calcium 9.4 mg/dL ()?? 08/27/2025 10:36 Lactate 1.1 mmol/L ()?? 08/27/2025 17:25 ? HEME OTHER Hold Blue Top SPECIMEN DISCARDED AFTER 4 HOURS. ()?? 08/27/2025 10:36 ? MISC. CHEMISTRY Procalcitonin 0.38 ng/mL ()?? 08/27/2025 10:36 ? URINE OTHER Sodium, Urine Random 66 mmol/L ()?? 08/28/2025 16:36 Osmolality, Urine Random 356 mOsm/kg ()?? 08/28/2025 16:36 ?? VIROLOGY Influenza A PCR POSITIVE (Abnormal)?? 08/27/2025 10:55 Influenza B PCR NEGATIVE ()?? 08/27/2025 10:55 RSV PCR NEGATIVE ()?? 08/27/2025 10:55 COVID-19 PCR Specimen Source NASAL ()?? 08/27/2025 10:55 COVID-19 PCR Result NEGATIVE ()?? 08/27/2025 10:55 ? 35??minutes spent on discharge [1]??Initial Evaluation Note; Franco Dunbar MD 08/27/2025 17:20 EST Electronically Signed on 08/29/25 10:47 AM Shayy PEARSON, Jenny Thomas RN: PERFORM, SIGN, VERIFY Event Display: Case Management Discharge Plan Authored Date: Patient: AMINA JOHNSTON Age: 80 years Sex: Female : 1945 Associated Diagnoses: None Author: Jenny Azar RN Discharge Plan Case Management Discharge Plan : Case Management Discharge Plan Data 08/29/2025 14:55 EST Discharge Level of Care at Discharge detention facility Discharge Nursing Homes/Rehab Facilities [facility] Discharge Transportation Arranged [facility] [id number] [phone] Mode of Transportation Arranged Ambulance Name of Agency #1 [facility] Categories #1 Occupational Therapy, Physical Therapy, Sn[facility] Service Comments #1 You are being discharged today to [facility]. You will go by ambulance this afternoon. Electronically Signed on 08/29/25 02:56 PM Doe ERVIN, Jenny Max RN, Faustina: PERFORM Event Display: Patient Education/Instruction Authored Date: [id number] Inpatient Adult Discharge Instructions. [address] [address] Name: AMINA JOHNSTON : 1945?? Visit: 08/27/2025 12:34?? Current Date: 08/29/2025 13:35 ?? Account: [id number]?? Inpatient Adult Discharge Instructions We would like to thank you for allowing us to assist you with your healthcare needs. The following includes patient education materials and information regarding your injury/illness. Our entire staffstrives to provide an excellent experience for our patients and their families. PLEASE ENSURE YOU FOLLOW-UP PER THE INSTRUCTIONS BELOW! ?? YOUR OPINION IS IMPORTANT TO US! Please complete the survey you may receive by mail or email. Your feedback will be used to make improvements to the healthcare experiences of our patients and their families. Surveys are administered by [employer] ?? If further treatment with your primary care physician or another doctor is recommended, it is important for you to keep the appointment. Call your primary care physician or return to the Emergency Department immediately if your condition worsens, fails to improve, or new symptoms develop. If you need to find a doctor, you can call [facility] [employer] for a referral at [phone] or toll free at [phone]) or log in to [email or web address].. ?? [facility], in keeping with [facility] guidance, no longer requires face masks for staff, patientsor visitors in most situations. Similiar to time spent indoors at other locations, there is the chance that you were exposed to repiratory viruses during your time with us (such as flu or COVID-19). If you develop symptoms concerning for a viral respiratory infection, please seek testing (and treatment if indicated) from your medical provider or home test kit. ?? You can view and manage your care through the patient portal or by using a health care michelle of your choosing. [employer] is a website that allows you to securely view your medical information including your hospital discharge summary, office visit summaries, medications and follow-up visits. You can also request appointments, renew medications, and request access to your medical information using a health care michelle of your choosing, or just ask a question. You are entitled to know the individuals who participated in your treatment. This information is available within your medical record and will be provided upon your request. You can enroll at [email or web address] or register d uring your next office visit. You have been discharged from [facility], Patient Care Unit: M7??. If you have any questions regarding these instructions, including results of studies pending, afteryou leave, please call us and we will be happy to assist you 25/03. [facility] Your Care Team Attending Physician Shayy DO, Mustapha Denney?? Consulting Providers Mustapha Lucas DO?? Discharging Providers Mustapha Lucas DO Reason for Your Visit 80 female. GCS 15. SOB X2 months, worsening the last few days. 4L o2 via [place]?? Your Diagnosis Influenza A Left lower lobe pneumonia Diabetes mellitus with stage 4 chronic kidney disease CAD (coronary artery disease) Chronic HFrEF (heart failure with reduced ejection fraction) Mood disorder History of anemia due to CKD MALA (obstructive sleep apnea) Hypothyroidism Tests Performed Below is a partial list of the tests performed during your hospitalization. You may have had other tests and procedures not included in this list. Please discuss all test results with your provider. B Type Natriuretic Peptide (NT-proBNP) Basic Metabolic Panel CBC w/ Differential CK,TOTAL ONLY COVID-19, RSV, and Flu A/B, Rapid PCR GLUCOSE POC High??Sensitivity??Troponin T Hold Blue Top Tube Lactate Level Osmolality Urine OSMOLALITY, SERUM PROCALCITONIN Sodium Level Sodium Urine Troponin T, High Sensitivity XR Chest Portable B Type Natriuretic Peptide (NT-proBNP)?? Basic Metabolic Panel?? CBC w/ Differential?? COVID-19, RSV, and Flu A/B, Rapid PCR (COVID-19, RSV, FLU A/B PCR)?? CPK Total Only (CK,TOTAL ONLY)?? Glucose POC?? High??Sensitivity??Troponin T (Troponin T, High Sensitivity)?? Hold Blue Top Tube?? Lactic Acid Level (Lactate Level)?? Osmolality (OSMOLALITY, SERUM)?? Osmolality Urine?? Procalcitonin Level (PROCALCITONIN)?? Sodium Level?? Sodium Urine?? Strep Pneumoniae Urinary Ag?? Chest Portable (XR Chest Portable)?? Primary Care Provider Av Flores MD? Advance Directive Health Care Proxy on File Yes - Health Care Proxy Yes - MOLST Discharge Vitals Temperature: 97.9 DegF Height: 168 cm Pulse Rate: 60 bpm Weight: 62.4 kg Respiratory Rate: 17 br/min Body Mass Index: 22.14 kg/m2 Systolic Blood Pressure: 99 mm Hg Body surface area: 1.71 Diastolic Blood Pressure:??49 mm Hg??Low ?? Oxygen Saturation: 99 % ?? Studies Pending All studies ordered during this hospital stay have been completed unless listed below. Please discuss all pending results with your provider listed above in these instructions. ?? Strep Pneumoniae Urinary Ag?? What to do next Instructions From Your Doctor Follow-up with the patient's primary care doctor at the nursing facility where she resides. ?? She should not receive Fleet enemas, she has chronic kidney disease. ?? Orders??:Diabetic Diet :Ambulate with assistance ??3 times a day ??unless otherwise specified Care:Continue local wound care for the lower extremities Status:DNR/DNI? 08/29/25 12:24:00 EST?? Prescriptions??, ??08/29/25 10:41:00 EST?? You Need to Schedule the Following Appointments Follow Up with??Av Flores MD ?? Where:[address] [place] [id number]- Discharge Medications AMINA JOHNSTON :1945 Visit Date:08/27/2025 Medications: Please continue your medications until treatment is completed or stopped by your provider. Medications not listed below should be discontinued. Discuss any questions related to medications with your provider. What How Much When Instructions Next Dose New Benzonatate (benzonatate 100 mg oral capsule) 100 Milligram Oral 3 times a day Ordering Physician: Mustapha Lucas DO tonight at 8pm New Cefdinir (cefdinir 300 mg oral capsule) 1 capsule Oral Every 24 hours Duration: 5 Days Ordering Physician: Mustapha Lucas DO tomorrow at 8am New Oseltamivir (Tamiflu 75 mg oral capsule) 1 capsule Oral Daily Duration: 3 Days Ordering Physician: Mustapha Lucas DO tomorrow at 8an Changed Acetaminophen (acetaminophen 325 mg oral tablet) 2 tab(s) Oral Every 6 hours as needed for Pain , Mild Special Instructions: NTE 3 gm/ 24 hours ?? Every 6 hours as needed for Pain , Mild Changed Clonazepam (clonazePAM 0.5 mg oral tablet) 1 tab(s) Oral Daily at Bedtime as needed for Insomnia/ anxiety Daily at Bedtime as needed for Insomnia/ anxiety Unchanged Albuterol (albuterol 0.083% inhalation solution) 3 Milliliter Inhalation Twice a day tonight at 8pm Unchanged Albuterol/ Ipratropium (albuterol-ipratropium 3 mg-0.5 mg/ 3 ml inhalation solution) 3 Milliliter Inhalation 3 times a day as needed for Wheezing/Shortness of Breath 3 times a day as needed for Wheezing/Shortness of Breath Unchanged Aspirin (aspirin 81 mg oral delayed release tablet) 81 Milligram Oral Daily Ordering Physician: Nicolasa Peralta MD tomorrow at 8am Unchanged Atorvastatin (atorvastatin 80 mg oral tablet) 1 tab(s) Oral Daily at Bedtime Ordering Physician: Dandre Chavez MD bedtime Unchanged Benzocaine Topical (Vagisil Feminine Cream) 1 michelle Vaginally Every 4 hours as needed for Pain , Moderate Every 4 hours as needed for Pain , Moderate Unchanged Bisacodyl (Dulcolax 10 mg rectal suppository) 1 suppository(ies) Per rectum Daily as needed for as needed for constipation Daily as needed for as needed for constipation Unchanged Diclofenac Topical (Voltaren Arthritis Pain 1% topical gel) 1 michelle Topically Twice a day Special Instructions: Applied to Right Shoulder ?? tonight at 8pm Unchanged Docusate (Colace sodium 100 mg oral capsule) 1 capsule Oral Twice a day tonight at 8pm Unchanged Durable Medical Equipment (CPAP Machine) See Instructions Special Instructions: AutoCPAP 8-20 cm H20, use Daily when sleeping ?? Special Instructions: AutoCPAP 8-20 cm H20, use Daily when sleeping Unchanged Ferrous Sulfate (ferrous sulfate 325 mg oral enteric coated tablet) 1 tab(s) Oral Daily Duration: 90 Days Ordering Physician: Myke Wolf MD tomorrow at 8am Unchanged Fexofenadine (fexofenadine 180 mg oral tablet) 1 tab(s) Oral Daily tomorrow at 8am Unchanged Fluticasone Nasal (fluticasone 50 mcg/ inh nasal spray) 1 spray(s) Nares, Both Twice a day tonight at 8pm Unchanged Lactulose (lactulose 10 g/ 15 mL oral and rectal liquid) 30 Milliliter Oral Every other day tomorrow at 8am Unchanged Levothyroxine (levothyroxine 0.137 mg oral tablet) 1 tab(s) Oral Daily Ordering Physician: Toño De Oliveira MD tomorrow at 7am Unchanged Metolazone (metolazone 5 mg oral tablet) 1 tab(s) Oral Every 72 hours as needed for for edema Every 72 hours as needed for for edema Unchanged Milk of Magnesia (Milk of Magnesia 1200 mg/ 15 mL oral liquid) 30 Milliliter Oral Every 24 hours as needed for Constipation Every 24 hours as needed for Constipation Unchanged Miscellaneous Rx (Glucerna) 237 Milliliter Oral Twice a day tonight at 8pm Unchanged Multivitamin (multivitamin Lipotropic with Multivitamins oral tablet) 1 tab(s) Oral Daily tomorrow at 8am Unchanged Paroxetine (PARoxetine 30 mg oral tablet) 1 tab(s) Oral Daily tomorrow at 8am Unchanged Polyethylene Glycol 3350 (MiraLax oral powder for reconstitution) 1 pack/packet Oral Daily tomorrow at 8am Unchanged Potassium Chloride (potassium chloride 20 mEq oral tablet, extended release) 1 tab(s) Oral Daily tomorrow at 8am Unchanged Senna (Senna 8.6 mg oral tablet) 2 tab(s) Oral Daily at Bedtime bedtime Unchanged torsemide (torsemide 60 mg oral tablet) 1 tab(s) Oral Twice a day Ordering Physician: Carlitos Haas MD tonight at 8pm Unchanged Tramadol (traMADol 50 mg oral tablet) 1 tab(s) Oral Every 8 hours as needed for Pain , Severe Every 8 hours as needed for Pain , Severe ?? What How Much When Comments Stop Taking Sodium Biphosphate-Sodium Phosphate (Fleet Enema 19 gm-7 gmrectal enema) 1 Each Per rectum Every 24 hours as needed for as needed for constipation Stop Taking Sodium Biphosphate-Sodium Phosphate Stop Taking Tamsulosin (tamsulosin 0.4 mg oral capsule) 1 capsule Oral Daily Stop Taking Tamsulosin Stop Taking Witch Zee Topical (witch zee topical pad) 1 michelle Topically Every 2 hours as needed for Vaginal Pain/Burning Stop Taking Witch Zee Topical Prescription Given During Visit Cefdinir (cefdinir 300 mg oral capsule) - 1 capsule = 300 mg, By Mouth, Every 24 hours, # 5 capsule, 0 Refills?? Oseltamivir (Tamiflu 75 mg oral capsule) - 1 capsule = 75 mg, By Mouth, Daily, # 3 capsule, 0 Refills?? Laboratory Results Below is a partial list of the most recent Laboratory test results done prior to this discharge. You may have had other tests and procedures not included in this list. Please discuss all test resultswith your provider. B Type Natriuretic Peptide (NT-proBNP) (08/27/2025) ???Nt-Probnp - 80356 pg/mL Basic Metabolic Panel (08/27/2025) ???Sodium - 128 mmol/L???Potassium - 4.0 mmol/L???Chloride - 89 mmol/L???Bicarbonate Level - 24 mmol/L???Anion Gap - 15 mmol/L???Glucose Level - 88 mg/dL???BUN - 89 mg/dL???Creatinine-Blood - 2.50 mg/dL???Estimated GFR Creatinine - 19 ML/MIN/1.73 M2???Calcium - 9.4 mg/dL CBC w/ Differential (08/27/2025) ???WBC - 7.3 k/mm3???RBC - 3.67 m/mm3???Hgb - 10.5 Gm/dL???Hct - 34.1 %???MCV - 92.9 femtoliters???MCH - 28.6 pg???MCHC - 30.8 Gm/dL???Platelet Count - 254 k/mm3???RDW-SD - 62.4 femtoliters???MPV - 9.8 femtoliters???Nucleated RBC (Automated) - 0.0 #/100 WBC'S???Abs. NRBC - 0.0 k/mm3???Abs. Neut - 6.1 k/mm3???Abs. Lymph - 0.3 k/mm3???Abs. [place] - 0.7 k/mm3???Abs. Eo - 0.0 k/mm3???Abs. Baso - 0.0 k/mm3???Neut % - 84.5 %???Lymph % - 4.6 %???[place] % - 9.7 %???Eos % - 0.1 %???Baso % - 0.1 %???Imm Gran- 1.0 %???Abs. Imm Gran - 0.1 k/mm3 CK,TOTAL ONLY (08/27/2025) ???CK, Total - 32 units/L COVID-19, RSV, and Flu A/B, Rapid PCR (08/27/2025) ???Influenza A PCR - POSITIVE???Influenza B PCR - NEGATIVE???RSV PCR - NEGATIVE???COVID-19 PCR Specimen Source - NASAL???COVID-19 PCR Result - NEGATIVE GLUCOSE POC (08/29/2025) ???Glucose, POC - 106 mg/dL High??Sensitivity??Troponin T (08/27/2025) ???High Sensitivity Troponin (HSTnT) - 172 ng/L Hold Blue Top Tube (08/27/2025) ???Hold Blue Top - SPECIMEN DISCARDED AFTER 4 HOURS. Lactate Level (08/27/2025) ???Lactate - 1.1 mmol/L Osmolality Urine (08/28/2025) ???Osmolality, Urine Random - 356 mOsm/kg OSMOLALITY, SERUM (08/27/2025) ???Osmolality - 308 mOs/kg PROCALCITONIN (08/27/2025) ???Procalcitonin - 0.38 ng/mL Sodium Level (08/29/2025) ???Sodium - 129 mmol/L Sodium Urine (08/28/2025) ???Sodium, Urine Random - 66 mmol/L Troponin T, High Sensitivity (08/27/2025) ???High Sensitivity Troponin (HSTnT) - 161 ng/L Allergies (NKA means No Known Allergies) bethanechol (<not entered>) metoprolol (<not entered>) Mushrooms??Mushrooms and toadstools Norvasc Other Food Allergy Percocet 7.5/325??hallucinates Urecholine??anorexia and loss of sight Problems Active Problems??(32) Anemia?? Anxiety?? Bladder incontinence?? CAD (coronary artery disease)?? Chronic back pain?? Chronic HFrEF (heart failure with reduced ejection fraction)?? Chronic kidney disease, stage 3b?? CKD (chronic kidney disease) stage 4, GFR 15-29 ml/min?? Constipation?? Depression?? Depressive disorder?? Diabetes mellitus?? Diabetes mellitus type II, uncontrolled?? Generalized weakness?? Heart failure with preserved ejection fraction?? History of anemia due to CKD?? History of implantable cardioverter-defibrillator (ICD) placement?? History of Mobitz type II block?? HLD (hyperlipidemia)?? Hypertension?? Hypothyroidism?? Ischemic cardiomyopathy?? Macrocytic anemia?? Moderate mitral stenosis?? Mood disorder?? MALA (obstructive sleep apnea)?? Osteoarthritis?? Periodic limb movement?? Psoriasis?? Psoriatic arthritis?? RSV infection?? T2DM (type 2 diabetes mellitus)?? Education Materials Below is the list of Educational Leaflet Providered with your Discharge Instructions. [employer] Patient Education - Oseltamivir?? [employer] Patient Education - Cefdinir?? [employer] Patient Education - Benzonatate?? [employer] Patient Education - Metolazone?? [employer] Patient Education - Torsemide?? [employer] Patient Education - Atorvastatin?? [employer] Patient Education - Tracking Symptoms of Heart Failure?? [employer] Patient Education - Heart Failure: Warning Signs of a Flare-Up?? [employer] Patient Education - Heart Failure: Making Changes to Your Diet?? [employer] Patient Education - Heart Failure: Know Your Baselines?? [employer] Patient Education - Heart Failure Discharge Instructions for Heart Failure?? [employer] Patient Education - Heart Failure?? [employer] Patient Education - Discharge Instructions: Eating a Low-Salt Diet?? [employer] Patient Education - The Flu (Influenza)?? Valuables and Belongings I fully understand and agree that [facility] accepts no responsibility for all my personal property including clothing, toilet articles, radios, jewelry, dentures, hearing aids, rings, money, or any other property that is in my possession or is brought to me after admission. I understand certain valuables may be placed in a hospital safe for a short period of time. I understand that the hospital is not liable for loss or damage due to accident, fire, or other natural occurrence while said property is in the safe. I accept full responsibility for any personal property that I keep with me, and will not hold the hospital responsible in case of loss or disappearance. I acknowledge that i have been encouraged to send valuables and belongings home. ?? No Valuables/Belongings: No valuables/belongings present Review of Valuable and Belonging List: With patient Date for Pt to Sign Valuables/Belongings: 08/27/25 17:47:00 ?? Other Discharge Information ? Pulmonary Rehab Status?? Pulmonary Rehab Discharge Status?? CPAP/BiPAP Mask Type: Full CPAP/BiPAP Mask Size: Large Respiratory Rate: 17 br/min ? Common Emergency Awareness Tips IS IT A STROKE? Act FAST and Check for these signs: FACE Does the face look uneven? ARM Does one arm drift down? SPEECH Does their speech sound strange? TIME Call at any sign of stroke ?? Heart Attack Signs Chest discomfort: Most heart attacks involve discomfort in the center of the chest and lasts more than a few minutes, or goes away and comes back. It can feel like uncomfortable pressure, squeezing, fullness or pain. Discomfort in upper body: Symptoms can include pain or discomfort in one or both arms, back, neck, jaw or stomach. Shortness of breath: With or without discomfort. Other signs: Breaking out in a cold sweat, nausea, or lightheaded. Remember, MINUTES DO MATTER. If you experience any of these heart attack warning signs, call to get immediate medical attention! ?? Smoking can increase your chances of developing chronic health problems and can cause harmful effects to other family members in your house. If you smoke, you are strongly encouraged to quit. Please call [facility] at [phone] or [phone] or log in to [email or web address] for referrals to smoking cessation programs. ?? 107 Suicide & Crisis Lifeline is available 25/03 if you or someone you know needs to find a reason to keep living. By calling 567 you'll be connected to a skilled, trained counselor at a crisis center in your area. INPATIENT DISCHARGE INSTRUCTIONS SIGNATURE PAGE AMINA JOHNSTON Location:[facility] Registration Date and Time:08/27/2025 12:34 EST Primary Care Physician: Mark ELAM, Av Dietz, Attending Physician: Mustapha Lucas DO, I AMINA JOHNSTON, have received the above patient education materials/instructions and have verbalizedunderstanding. If ambulance or transport services are being used I further acknowledge being given a choice of service. ?? If you need to contact me, please call me at this number: . Patient/Legal Stenographer Name: Patient/Legal Stenographer Signature: Relationship to Patient: Witness Name/Signature: Date: * Faustina Max RN: PERFORM Event Display: Patient Education Leaflets Authored Date: [id number] Oseltamivir ?? [id number] Oseltamivir WHY is this medicine prescribed? Oseltamivir is used to treat some types of influenza infection ('flu') in adults, children, and infants (older than 2 weeks of age) who have had symptoms of the flu for no longer than 2 days. This medication is also used to prevent some types of flu in adults and children (older than 1 year of age)when they have spent time with someone who has the flu or when there is a flu outbreak. Oseltamiviris in a class of medications called neuraminidase inhibitors. It works by stopping the spread of the flu virus in the body. Oseltamivir helps shorten the time that flu symptoms such as a stuffy or runny nose, sore throat, cough, muscle or joint aches, tiredness, headache, fever, and chills last. Ose ltamivir will not prevent bacterial infections, which may occur as a complication of the flu. HOW should this medicine be used? Oseltamivir comes as a capsule and a suspension (liquid) to take by mouth. When oseltamivir is usedto treat flu symptoms, it is usually taken two times a day (morning and evening) for 5 days. When oseltamivir is used to prevent flu, it is usually taken once a day for at least 10 days, or for up to6 weeks during a community flu outbreak. Oseltamivir may be taken with or without food, but is lesslikely to cause upset stomach if it is taken with food or milk. Follow the directions on your prescription label carefully, and ask your doctor or pharmacist to explain any part that you do not understand. Take oseltamivir exactly as directed. Do not take more or less of it or take it more often than prescribed by your doctor. It is important to know the dose of medication your doctor has prescribed and to use a measuring device that will measure the dose accurately. If you are taking the medication yourself or giving it to a child older than 1 year of age, you can use the device provided by the publicity expert to measure the dose according to the instructions below. If you are giving the medication to a child under one year of age, you should not use the measuring device provided by the publicity expert because it cannot accurately measure small doses. Instead, use the device provided by your pharmacist. If the commercial suspension is unavailable and your pharmacist prepares a suspension for you, he or she will provide a device to measure your dose. Never use a household teaspoon to measure doses of oseltamivir oralsuspension. If you are giving the commercial suspension to an adult or child over one year of age, follow thesesteps to measure the dose using the syringe provided: ??? Shake the suspension well (for about 5 seconds) before each use to mix the medication evenly. ??? Open the bottle by pushing down on the cap and turning the cap at the same time. ??? Push the plunger of the measuring device completely down to the tip. ??? Insert the tip of the measuring device firmly into the opening on the top of the bottle. ??? Turn the bottle (with the measuring device attached) upside down. ??? Pull back on the plunger slowly until the amount of suspension prescribed byyour doctor fills the measuring device to the appropriate marking. Some larger doses may need to bemeasured using the measuring device twice. If you are not sure how to correctly measure the dose your doctor has prescribed, ask your doctor or pharmacist. ??? Turn the bottle (with the measuring device attached) right-side up and slowly remove the measuring device. ??? Take oseltamivir directly into your mouth from the measuring device; do not mix with any other liquids. ??? Replace the cap on the bottle and close tightly. ??? Remove the plunger from the rest of the measuring device and rinse both parts under running tap water. Allow the parts to air dry before putting back together for the next use. Call your doctor or pharmacist to find out how you should measure a dose of oseltamivir suspension if you do not have the measuring device that came with this medication. If you have difficulty swallowing capsules, your doctor may tell you to open the capsule and mix the contents with a sweetened liquid. To prepare doses of oseltamivir for people who cannot swallow the capsules: ??? Hold the capsule over a small bowl and carefully pull open the capsule and empty all of the powder from the capsule into the bowl. If your doctor has instructed you to take more than one capsule for your dose, then open the correct number of capsules into the bowl. ??? Add a small amount of sweetened liquid, such as regular or sugar-free chocolate syrup, corn syrup, caramel topping, or light brown sugar dissolved in water to the powder. ??? Stir the mixture. ??? Swallow the entire contents of this mixture right away. Continue to take oseltamivir until you finish the prescription, even if you start to feel better. Do not stop taking oseltamivir without talking to your doctor. If you stop taking oseltamivir too soon or skip doses, your infection may not be fully treated, or you may not be protected from the flu. If you feel worse or develop new symptoms while taking oseltamivir, or if your flu symptoms do not start to get better, call your doctor. Ask your pharmacist or doctor for a copy of the publicity expert's information for the patient. Are there OTHER USES for this medicine? Oseltamivir may be used to treat and prevent infections from cassandra (bird) influenza (a virus that usually infects birds but can also cause serious illness in humans). Oseltamivir also may be used to treat and prevent infections from influenza A (H1N1). This medication may be prescribed for other uses; ask your doctor or pharmacist for more information. What SPECIAL PRECAUTIONS should I follow? Before taking oseltamivir, ??? tell your doctor and pharmacist if you are allergic to oseltamivir, any other medications, or any of the ingredients in oseltamivir capsules or suspension. Ask your pharmacist or check the publicity expert's patient information for a list of the ingredients. ??? tell your doctor what prescription and nonprescription medications, vitamins, nutritional supplements and herbal products you are takingor plan to take while taking oseltamivir. Your doctor may need to change the doses of your medications or monitor you carefully for side effects. ??? tell your doctor if you have ever taken oseltamivir to treat or prevent the flu. ??? tell your doctor if you have any disease or condition that affects your immune system such as human immunodeficiency virus (HIV) or acquired immunodeficiency syndrome (AIDS) or if you have heart, lung, or kidney disease. ??? tell your doctor if you are , plan to become , or are breast-feeding. If you become while taking oseltamivir, callyour doctor. ??? you should know that people, especially children and teenagers, who have the flu may become confused, agitated, or anxious, and may behave strangely, have seizures or hallucinate (see things or hear voices that do not exist), or harm or kill themselves. You or your child may develop these symptoms whether or not you or your child uses oseltamivir, and the symptoms may begin shortly after starting treatment if you do use the medication. If your child has the flu, you should watch his or her behavior very carefully and call the doctor right away if he or she becomes confused orbehaves abnormally. If you have the flu, you, your family, or your caregiver should call the doctorright away if you become confused, behave abnormally, or think about harming yourself. Be sure thatyour family or caregiver knows which symptoms may be serious so they can call the doctor if you areunable to seek treatment on your own. ??? ask your doctor if you should receive a flu vaccination each year. Oseltamivir does not take the place of a yearly flu vaccine. If you received or plan to receive the intranasal flu vaccine (FluMist; flu vaccine that is sprayed into the nose), you should tell your doctor before taking oseltamivir. Oseltamivir may make the intranasal flu vaccine less effective if it is taken up to 2 weeks after or up to 48 hours before the intranasal flu vaccine is given. ??? if you have fructose intolerance (an inherited condition in which the body lacks the protein needed to break down fructose, a fruit sugar, such as sorbitol), you should know that the oseltamivirsuspension is sweetened with sorbitol. Tell your doctor if you have fructose intolerance. What should I do IF I FORGET to take a dose? If you forget to take a dose, take it as soon as you remember it. If it is no longer than 2 hours before your next scheduled dose, skip the missed dose and continue your regular dosing schedule. If you miss several doses, call your doctor for directions. Do not take a double dose to make up for a missed one. What SIDE EFFECTS can this medicine cause? Some side effects can be serious. If you experience any of these symptoms or those mentioned in theSPECIAL PRECAUTIONS section, call your doctor immediately: ??? rash, hives, or blisters on the skin ??? mouth sores ??? itching ??? swelling of the face or tongue ??? difficulty breathing or swallowing ??? hoarseness ??? confusion ??? speech problems ??? shaky movements ??? hallucinations (seeing things or hearing voices that do not exist) If you experience a serious side effect, you or your doctor may send a report to the Food and Drug Administration's (FDA) MedWatch Adverse Event Reporting program online (https://www.fda.gov/Safety/MedWatch) or by phone ( ). What should I know about STORAGE and DISPOSAL of this medication? Keep this medication in the container it came in and out of reach of children. Store the capsules at room temperature and away from excess heat and moisture (not in the bathroom). Commercial oseltamivir suspension can be kept at room temperature for up to 10 days or in the refrigerator for up to 17days. Oseltamivir suspension prepared by a pharmacist can be kept at room temperature for up to 5 days or in the refrigerator for up to 35 days. Do not freeze oseltamivir suspension. Keep all medication out of sight and reach of children as many containers are not child-resistant. Always lock safety caps. Place the medication in a safe location ??? one that is up and away and outof their sight and reach. https://www.upandaway.org Dispose of unneeded medications in a way so that pets, children, and other people cannot take them.Do not flush this medication down the toilet. Use a medicine take-back program. Talk to your pharmacist about take-back programs in your community. Visit the FDA's Safe Disposal of Medicines website h ttps://goo.gl/c4Rm4p for more information. What should I do in case of OVERDOSE? In case of overdose, call the poison control helpline at . Information is also available online at https://www.poisonhelp.org/help. If the victim has collapsed, had a seizure, has trouble breathing, or can't be awakened, immediately call emergency services at 911. Symptoms of overdose may include: ??? nausea ??? vomiting What OTHER INFORMATION should I know? Oseltamivir will not stop you from giving the flu to others. You should wash your hands frequently,and avoid practices such as sharing cups and utensils that can spread the virus to others. Do not let anyone else take your medication. Your prescription is probably not refillable. If you still have symptoms of the flu after you finish taking oseltamivir, call your doctor. Keep a written list of all of the prescription and nonprescription (igab-xgq-qtajubj) medicines, vitamins, minerals, and dietary supplements you are taking. Bring this list with you each time you visit a doctor or if you are admitted to the hospital. You should carry the list with you in case of rosalba rgencies. Brand Name(s): ??? Tamiflu? This report on medications is for your information only, and is not considered individual patient advice. Because of the changing nature of drug information, please consult your physician or pharmacist about specific clinical use. The [employer] represents that the information provided hereunder was formulated with a reasonable standard of care, and in conformity with professional standards in the field. [employer] makes no representations or warranties, express or implied, including, but not limited to, any implied warranty of merchantability and/or fitness for a particular purpose, with respect to such information and specifically disclaims all such warranties. Users are advised that decisions regarding drug therapy are complex medical decisions requiring the independent, informed decision of an appropriate health day care center director, and the information is provided for informational purposes only. The entire monograph for a drug should be reviewed for a thorough understanding of the drug's actions, uses and side effects. The [employer] does not endorse or recommend the use of any drug.The information is not a substitute for medical care. AHFS?? Patient Medication Information???. ?? Copyright, 2023. [employer]??, [address], [address], [place], [place]. All Rights Reserved. Duplication for commercial use must be authorized by [facility]. Selected Revisions: September 16, 2017. AHFS?? Patient Medication Information???. ?? Copyright, 2024 ?? * Faustina Max RN: PERFORM Event Display: Patient Education Leaflets Authored Date: [id number] Cefdinir ?? [id number] Cefdinir WHY is this medicine prescribed? Cefdinir is used to treat certain infections caused by bacteria such as bronchitis (infection of the airway tubes leading to the lungs); pneumonia; and infections of the skin, ears, sinuses, throat, and tonsils.. Cefdinir is in a class of medications called cephalosporin antibiotics. It works by killing bacteria. Antibiotics such as cefdinir will not work for colds, flu, or other viral infections. Using antibiotics when they are not needed increases your risk of getting an infection later that resists antibiotic treatment. HOW should this medicine be used? Cefdinir comes as a capsule and suspension (liquid) to take by mouth. It is usually taken with or without food every 12 or 24 hours for 5 to 10 days, depending on the condition being treated. Take cefdinir at around the same times every day. Follow the directions on your prescription label carefully, and ask your doctor or pharmacist to explain any part you do not understand. Take cefdinir exactly as directed. Do not take more or less of it or take it more often than prescribed by your doctor. Shake the suspension well before each use to mix the medication evenly. You should begin to feel better during the first few days of treatment with cefdinir. If your symptoms do not improve or get worse, call your doctor. Continue to take cefdinir even if you feel better. If you stop taking cefdinir too soon or skip doses, your infection may not be completely treated and the bacteria may become resistant to antibiotics. Are there OTHER USES for this medicine? This medication may be prescribed for other uses; ask your doctor or pharmacist for more information. What SPECIAL PRECAUTIONS should I follow? Before taking cefdinir, ??? tell your doctor and pharmacist if you are allergic to cefdinir or any other cephalosporin antibiotic such as cefaclor , cefadroxil cefazolin (Ancef, Kefzol), cefditoren (Spectracef), cefepime (Maxipime), cefixime (Suprax), cefotaxime (Claforan), cefotetan, cefoxitin (Mefoxin), cefpodoxime, cefprozil, ceftaroline (Teflaro), ceftazidime (Fortaz, Tazicef, in Avycaz), ceftibuten (Cedax), ceftriaxone (Rocephin), cefuroxime (Zinacef) or cephalexin (Keflex); penicillin antibiotics; or any other medications. Also tell your doctor if you are allergic to any of the ingredients in cefdinir capsules, or suspension. Ask your pharmacist for a list of the ingredients. ??? tell your doctor and pharmaci st what prescription and nonprescription medications, vitamins, nutritional supplements, and herbalproducts you are taking or plan to take while taking cefdinir. Your doctor may need to change the doses of your medications or monitor you carefully for side effects. ??? if you are taking antacids co ntaining magnesium or aluminum, iron supplements, or multivitamins that contain iron, take them 2 hours before or 2 hours after cefdinir. ??? you should know that cefdinir may decrease the effectiveness of hormonal contraceptives ( control pills, patches, rings, and injections). You will need to use another method of contraception to prevent while taking cefdinir. Talk to your doctor about other ways to prevent while you are taking this medication. ??? tell your doctor if you have or have ever had gastrointestinal disease (GI; affecting the stomach or intestines), especially colitis (condition that causes swelling in the lining of the colon [large intestine]), . or kidney disease. ??? tell your doctor if you are , plan to become , or are . If you become while taking cefdinir, call your doctor. ??? If you have diabetes, you should know that cefdinir suspension solution contains sucrose (sugar). What SPECIAL DIETARY instructions should I follow? Talk to your doctor about eating foods that have had iron added to them, such as iron fortified breakfast cereal, while taking this medication. However, babies may be fed iron fortified formula while they are taking this medication. What should I do IF I FORGET to take a dose? Take the missed dose as soon as you remember it. However, if it is almost time for the next dose, skip the missed dose and continue your regular dosing schedule. Do not take a double dose to make up for a missed one. What SIDE EFFECTS can this medicine cause? Some side effects can be serious. If you experience any of the following symptoms call your doctor immediately or get emergency medical treatment: ??? rash ??? hives ??? swelling of the face, throat, tongue, lips or eyes ??? difficulty breathing or swallowing ??? watery or bloody stools, stomach cramps, or fever during treatment or for up to two or more months after stopping treatment ??? a return of fever, sore throat, chills, or other signsof infection If you experience a serious side effect, you or your doctor may send a report to the Food and Drug Administration's (FDA) MedWatch Adverse Event Reporting program online (https://www.fda.gov/Safety/MedWatch) or by phone ( ). What should I know about STORAGE and DISPOSAL of this medication? Keep this medication in the container it came in, tightly closed, and out of reach of children. Store the capsules and suspension at room temperature and away from excess heat and moisture (not in the bathroom). Dispose of any unused suspension after 10 days. Dispose of unneeded medications in a way so that pets, children, and other people cannot take them.Do not flush this medication down the toilet. Use a medicine take-back program. Talk to your pharmacist about take-back programs in your community. Visit the FDA's Safe Disposal of Medicines website h ttps://goo.gl/c4Rm4p for more information. Keep all medication out of sight and reach of children as many containers are not child-resistant. Always lock safety caps. Place the medication in a safe location ??? one that is up and away and outof their sight and reach. https://www.upandaway.org What should I do in case of OVERDOSE? In case of overdose, call the poison control helpline at . Information is also available online at https://www.poisonhelp.org/help. If the victim has collapsed, had a seizure, has trouble breathing, or can't be awakened, immediately call emergency services at 911. Symptoms of overdose may include the following: ??? nausea ??? vomiting ??? diarrhea ??? stomach pain ??? seizures What OTHER INFORMATION should I know? Keep all appointments with your doctor and laboratory. Your doctor may order certain lab tests to check your response to cefdinir. Before having any laboratory test, tell your doctor and the laboratory personnel that you are taking cefdinir. If you are diabetic and test your urine for sugar, use Clinistix or TesTape (but not Clinitest) to test your urine while taking this medication. If you test your urine for ketones, you should know that cefdinir may interfere with the results of this type of test. Talk to your doctor about how you should monitor your diabetes while you are taking cefdinir. Do not let anyone else take your medication. Your prescription is probably not refillable.. Keep a written list of all of the prescription and nonprescription (dsva-pej-huzwzet) medicines, vitamins, minerals, and dietary supplements you are taking. Bring this list with you each time you visit a doctor or if you are admitted to the hospital. You should carry the list with you in case of rosalba rgencies. Brand Name(s): ??? Omnicef? also available generically ? This branded product is no longer on the market. Generic alternatives may be available. ?? This report on medications is for your information only, and is not considered individual patient advice. Because of the changing nature of drug information, please consult your physician or pharmacist about specific clinical use. The [employer] represents that the information provided hereunder was formulated with a reasonable standard of care, and in conformity with professional standards in the field. [employer] makes no representations or warranties, express or implied, including, but not limited to, any implied warranty of merchantability and/or fitness for a particular purpose, with respect to such information and specifically disclaims all such warranties. Users are advised that decisions regarding drug therapy are complex medical decisions requiring the independent, informed decision of an appropriate health day care center director, and the information is provided for informational purposes only. The entire monograph for a drug should be reviewed for a thorough understanding of the drug's actions, uses and side effects. The [employer] does not endorse or recommend the use of any drug.The information is not a substitute for medical care. AHFS?? Patient Medication Information???. ?? Copyright, 2023. [employer]??, [address], [address], [place], [place]. All Rights Reserved. Duplication for commercial use must be authorized by [facility]. Selected Revisions: February 15, 2016. AHFS?? Patient Medication Information???. ?? Copyright, 2024 ?? * Faustina Max RN: PERFORM Event Display: Patient Education Leaflets Authored Date: [id number] Benzonatate ?? [id number] Benzonatate WHY is this medicine prescribed? Benzonatate is used to relieve cough. Benzonatate is in a class of medications called antitussives (cough suppressants). It works by reducing the cough reflex in the lungs and air passages. HOW should this medicine be used? Benzonatate comes as a liquid-filled capsule and a capsule to take by mouth. It is usually taken three times a day as needed. Follow the directions on your prescription label carefully, and ask your doctor or pharmacist to explain any part you do not understand. Take benzonatate exactly as directed. Do not take more or less of it or take it more often than prescribed by your doctor. Swallow the capsules and liquid-filled capsules whole; do not break, dissolve, cut, crush, suck or chew them. If the medication is released in the mouth, it may make the mouth numb and cause choking.Do not eat or drink if you feel numbness or tingling of your mouth, tongue, throat, or face. If feelings of numbness or tingling continue or get worse, get medical help right away. Are there OTHER USES for this medicine? This medication may be prescribed for other uses; ask your doctor or pharmacist for more information. What SPECIAL PRECAUTIONS should I follow? Before taking benzonatate, ??? tell your doctor and pharmacist if you are allergic to benzonatate, procaine (Novocain), tetracaine (in Synera),any other medications, or any of the ingredients in benzonatate capsules. Ask your doctor or pharmacist for a list of ingredients. ??? tell your doctor and pharmacist what prescription and nonprescription medications, vitamins, nutritional supplements, and herbal products you are taking or plan to take. Your doctor may need to change the doses of your medications or monitor you carefully for side effects. ??? tell your doctor if you are , plan to become , or are breast-feeding. If you become while taking benzonatate, call your doctor. ??? if you are having surgery, including dental surgery, tell the doctor or dentist that you are taking benzonatate. What SPECIAL DIETARY instructions should I follow? Unless your doctor tells you otherwise, continue your normal diet. What should I do IF I FORGET to take a dose? This medication is usually taken as needed. If you are taking benzonatate regularly and you miss a dose, skip the missed dose and continue your regular dosing schedule. Do not take a double dose to make up for a missed one. What SIDE EFFECTS can this medicine cause? Some side effects can be serious. If you experience any of these symptoms, call your doctor immediately: ??? rash or hives ??? itching ??? tightening of the throat ??? difficulty breathing or swallowing ??? numbness of the chest ??? confusion ??? hallucinations (seeing or hearing things that do not exist) Benzonatate may cause other side effects. Call your doctor if you have any unusual problems while taking this medication. If you experience a serious side effect, you or your doctor may send a report to the Food and Drug Administration's (FDA) MedWatch Adverse Event Reporting program online (https://www.fda.gov/Safety/MedWatch) or by phone ( ). What should I know about STORAGE and DISPOSAL of this medication? Keep this medication in the container it came in, tightly closed. It is very important to store this medication in a closed child-proof container and to keep it out of reach of children. Children maybe attracted to the shape and look of the liquid-filled capsules and may if they swallow the medication. Store it at room temperature and away from excess heat and moisture (not in the bathroom). Dispose of unneeded medications in a way so that pets, children, and other people cannot take them.Do not flush this medication down the toilet. Use a medicine take-back program. Talk to your pharmacist about take-back programs in your community. Visit the FDA's Safe Disposal of Medicines website h ttps://goo.gl/c4Rm4p for more information. Keep all medication out of sight and reach of children as many containers are not child-resistant. Always lock safety caps. Place the medication in a safe location ??? one that is up and away and outof their sight and reach. https://www.upandaway.org What should I do in case of OVERDOSE? In case of overdose, call the poison control helpline at . Information is also available online at https://www.poisonhelp.org/help. If the victim has collapsed, had a seizure, has trouble breathing, or can't be awakened, immediately call emergency services at 911. If benzonatate is taken accidentally, call for medical help immediately. Symptoms of overdose can occur rapidly (within 15???20 minutes of taking medication) and in children has been reported within an hour. These symptoms may include the following: ??? restlessness ??? uncontrollable shaking of a part of the body ??? confusion ??? seizures ??? unconsciousness What OTHER INFORMATION should I know? Keep all appointments with your doctor. Do not let anyone else take your medication. Ask your pharmacist any questions you have about refilling your prescription. Keep a written list of all of the prescription and nonprescription (scuw-any-nxsgpod) medicines, vitamins, minerals, and dietary supplements you are taking. Bring this list with you each time you visit a doctor or if you are admitted to the hospital. You should carry the list with you in case of rosalba rgencies. Brand Name(s): ??? Tessalon? Zonatuss?? also available generically ?? This report on medications is for your information only, and is not considered individual patient advice. Because of the changing nature of drug information, please consult your physician or pharmacist about specific clinical use. [employer] represents that the information provided hereunder was formulated with a reasonable standard of care, and in conformity with professional standards in the field. [employer] makes no representations or warranties, express or implied, including, but not limited to, any implied warranty of merchantability and/or fitness for a particular purpose, with respect to such information and specifically disclaims all such warranties. Users are advised that decisions regarding drug therapy are complex medical decisions requiring the independent, informed decision of an appropriate health day care center director, and the information is provided for informational purposes only. The entire monograph for a drug should be reviewed for a thorough understanding of the drug's actions, uses and side effects. The [employer] does not endorse or recommend the use of any drug.The information is not a substitute for medical care. AHFS?? Patient Medication Information???. ?? Copyright, 2023. [employer]??, [address], [address], [place], [place]. All Rights Reserved. Duplication for commercial use must be authorized by [facility]. Selected Revisions: April 16, 2017. AHFS?? Patient Medication Information???. ?? Copyright, 2024 ?? Patient Care team information Care Team Personnel Name: Sandy Childress RN Position: [facility] RN Member Role: Primary Care Nurse Name: Arlet Mcgraw RN Position: [facility] RN Member Role: Primary Care Nurse Name: Mariah Oakes RN Position: [facility] RN Member Role: Primary Care Nurse Name: Monica Benitez RN Position: [facility] RN Member Role: Primary Care Nurse Name: Lidia Rapp RN Position: [facility] RN Member Role: Primary Care Nurse Name: Steph Mao RN Position: [facility] RN Member Role: Primary Care Nurse Name: Joelle Whitman RN Position: [facility] RN Member Role: Primary Care Nurse Name: Nathalie Gilmore RN Position: [facility] TRAVIS RN W/OE and Tasks Member Role: Primary Care Nurse Name: Melissa Delgadillo Position: [facility] Outreach Member Role: Lifetime Consulting Physician Name: Chio Modi RN Position: [facility] RN Member Role: Primary Care Nurse Name: Annika Robles RN Position: [facility] RN Member Role: Primary Care Nurse Name: Tsering Lopez RN Position: [facility] RN Member Role: Primary Care Nurse Name: Lily Ca RN Position: [facility] RN Member Role: Primary Care Nurse Name: Jennifer Llanes RN Position: [facility] RN Member Role: Primary Care Nurse Name: Miguel Fernandez RN Position: [facility] RN Member Role: Primary Care Nurse Name: Ino Montanez RN Position: [facility] RN Member Role: Primary Care Nurse Name: Vanessa Mace RN Position: [facility] RN Member Role: Primary Care Nurse Name: Sherry Arroyo RN Position: [facility] ED RN W/OE and Tasks Member Role: Primary Care Nurse Name: June Velarde RN Position: S RN Member Role: Primary Care Nurse Name: Hortencia Crow NP Position: [facility] Associate Professional Member Role: Lifetime Consulting Provider Address: [address] [facility] [place] [address]- Telecom: Name: Johnathan Hannon MD Position: [facility] Renal MD Member Role: Lifetime Consulting Physician Address: [address] [place] [address] [address] [facility] [place] [address]- Telecom: Name: Onel Lozano RN Position: [facility] RN Member Role: Primary Care Nurse Name: Tena Melgar RN Position: [facility] RN Member Role: Primary Care Nurse Name: Enrique Gallegos DO Position: [facility] Renal MD Member Role: Lifetime Consulting Physician Address: [address] [place] [address] [address] [facility] [place] [address]- Telecom: Name: Susi Joy RN Position: [facility] RN Member Role: Primary Care Nurse Name: Lucy Atwood LPN Position: [facility] RN Member Role: Primary Care Nurse Name: Alberto Elias RN Position: [facility] RN Member Role: Primary Care Nurse Name: Adithya Bello RN Position: [facility] RN Member Role: Primary Care Nurse Name: Jai Alicea RN Position: [facility] RN Member Role: Primary Care Nurse Name: Faraz Rodas MD Position: [facility] Renal MD Member Role: Lifetime Consulting Physician Address: [address] [place] [address] [address] [facility] [place] [address]- Telecom: Name: Khai Bunch RN Position: [facility] RN Member Role: Primary Care Nurse Name: Av Flores MD Position: Reference Physician Member Role: PCP Address: [address] [place] [address]- Telecom: Name: Brina Pink RN Position: [facility] RN Member Role: Primary Care Nurse Name: Sade Galloway RN Position: [facility] RN Member Role: Primary Care Nurse Name: Jenny Melendrez RN Position: [facility] RN Member Role: Primary Care Nurse Name: Cintia Ye RN Position: [facility] RN Member Role: Primary Care Nurse Name: Amina Reese RN Position: [facility] RN Member Role: Primary Care Nurse Name: Dez ELAM, Iraj Herrera Position: [facility] IT OPERATIONS SPECIALIST MD Member Role: Lifetime IT OPERATIONS SPECIALIST Physician Address: [address] [place], [place] [address]s [facility] [address] Telecom: Name: Jeanette Gandara RN Position: [facility] Rn Icu Member Role: Primary Care Nurse Name: Jessica ERVIN, Michaelle Crump Position: [facility] RN Member Role: Primary Care Nurse Care Team Related Persons Name: BERNARDSMILEY HUTCHINS Name: LESVIA JOHNSTON Insurance Providers Guarantor name: AMINA JOHNSTON Health Plan Information #: 1 Payer: MEDICARE B Payer Identifier: Member Number: [id number] Group Number: Subscriber Identifier: [id number] Relationship to Subscriber: self Coverage Type: NA Coverage Verification Date: NA Telecom: NA Address: Health Plan Information #: 2 Payer: [employer] Payer Identifier: NA Member Number: [id number] Group Number: Subscriber Identifier: [id number] Relationship to Subscriber: self Coverage Type: MEDICAID Coverage Verification Date: NA Telecom: NA Address:
[2025-08-30 08:42] LABS: Hematocrit 30.1 % (37.0-47.0); Hemoglobin 9.2 g/dl (12.0-16.0); Imm Gran Abs Auto 0.04 X10*3/uL (0.00-0.03); Imm Gran Pct Auto 1.4 % (0.0-0.4); Lymphocytes Absolute Auto 0.4 X10*3/uL (1.2-4.9); MANUAL DIFF FLAG NO; Mean Corpuscular HGB Conc 30.6 g/dl (31.0-35.0); Mean Corpuscular Hemoglobin 28.3 pg (27.0-33.0); Mean Corpuscular Volume 92.6 fL (80.0-98.0); NRBC Abs Auto 0.000 X10*3/uL (0.0-0.012); NRBC Pct Auto 0.0 /100WBC (0.0-0.2); Platelet Count 252 X10*3/uL (160-400); Red Blood Count 3.25 X10*6/uL (4.20-5.50); White Blood Count 2.8 X10*3/uL (4.8-10.8)
[2025-08-30 08:49] LABS: Anion Gap 18 (12-20); Blood Urea Nitrogen 101 mg/dL (9-16); Calcium 8.8 mg/dL (8.4-10.2); Carbon Dioxide 28 mmol/L (22-29); Chloride 92 mmol/L (96-108); Estimated Glomerular Filt Rate 19; Sodium 135 mmol/L (135-145)
[2025-08-30 10:30] LABS: Potassium 2.9 mmol/L (3.3-5.1)
--- OUTSIDE RECORDS SUMMARY | 2025-08-30 11:09 | XMS_ITS | Clinical Summary ---
Author Organization [facility] Prior to 01/30/[address] [place] [address] Care Team Providers Care Manager Business Operations Name Role Phone Dandre Chavez MD Primary Care Provider [phone] Allergies Active Allergy Reactions Criticality Noted Date [...] age to complete this topic Care Teams Manager Business Operations Relationship Specialty Start Date End Date Dandre Chavez MD [address] [place] [address] [place] [address] PCP - General Internal Medicine 11/06/22
--- OUTSIDE RECORDS SUMMARY | 2025-08-30 11:09 | XMS_ITS | Clinical Summary ---
Author Organization [address] Address [address] [place] [address] Phone Care Team Providers Care Academic Assistant Name Role Phone Amina Burciaga MD Primary Care Provider [phone] Immunizations Immunization Administration Dates Next Due Pfizer [...] ORDERABLES Final Resu lt Performing Organization Address City/[facility]/ZIP Co de Phone Number [facility] [address] [place] [address], [place] [phone] * Hemoglobin A1c (09/23/2024 8:20 AM EST) [...] ORDERABLES Final Resul t Performing Organization Address City/[facility]/ZIP Co de Phone Number [facility] [address] [place] [address], [place] [phone] from Last 3 Months or Most Recently Relevant to Health Maintenance Insurance MEDICA[place] [employer] [employer] Care Teams Academic Assistant Relationship Specialty Start Date End Date Amina Burciaga MD [address] [place] [phone] PCP - General Hospitalist Medicine 09/11/24
--- OUTSIDE RECORDS SUMMARY | 2025-08-30 11:10 | XMS_ITS | Encounter Summary ---
Author Organization [facility], Address [address] [place] [address] Phone Care Team Providers Care Solid Waste Facility Supervisor Name Role Phone Dandre Chavez MD Primary Care Provider [phone] Encounter Details Date Type Department Care Team (Late st Contact Info) Description 02/08/2022 Documentation Only [facility], [address] [place] [address] Faina Villegas PA Social History Tobacco Use [...] on filedocumented in this encounter Care Teams Solid Waste Facility Supervisor Relationship Specialty Start Date End Date Dandre Chavez MD [address] [place] [address], [address] [place], [place] PCP - General 07/07/19 documented as of this encounter
--- OUTSIDE RECORDS SUMMARY | 2025-08-30 11:10 | XMS_ITS | Encounter Summary ---
Author Organization [facility] Address [address] [place] [address] Care Team Providers Care Cowlman Name Role Phone Amina Burciaga MD Primary Care Provider [phone] Encounter Details Date Type Department Care Team (Latest Contact Info) Description 09/23/2024 Lab Requisition [facility] - Main Lab [address] [facility] [email or web address] [address] Amina Burciaga MD [address] [place] [address] Type 2 diabetes mellitus with [...] Resul t [facility] [address] [place] [address], * (ABNORMAL) Comprehensive metabolic panel (09/23/2024 8:20 AM EST) Pathologist [facility] Sodium 140 133 - 145 mmol/L LAB CHEMISTRY METHOD 09/23/2024 4:37 PM [facility] Potassium 3.9 3.5 - 5.5 mmol/L LAB CHEMISTRY METHOD 09/23/2024 4:37 PM [facility] Chloride 102 96 - 110 mmol/L LAB CHEMISTRY METHOD 09/23/2024 4:37 PM [facility] CO2 31 21 - 32 mmol/L LAB CHEMISTRY METHOD 09/23/2024 4:37 PM [facility] Anion Gap 7 3 - 11 LAB CHEMISTRY METHOD 09/23/2024 4:37 PM [facility] Glucose 106(H) 70 - 100 mg/dL LAB CHEMISTRY METHOD 09/23/2024 4:37 PM [facility] BUN 82(H) 5 - 25 mg/dL LAB CHEMISTRY METHOD 09/23/2024 4:37 PM [facility] Creatinine 2.46(H) 0.50 - 1.10 mg/dL LAB CHEMISTRY METHOD 09/23/2024 4:37 PM [facility] eGFR 20(L) >=60 mL/min/1. 73m2 LAB CHEMISTRY METHOD 09/23/2024 4:37 PM [facility] Comment:Calculation based on the Chronic Kidney Disease Epidemiology Collaboration (CKD-EPI) equation refit without adjustment for race. BUN/Creatinine Ratio 33.3 LAB CHEMISTRY METHOD 09/23/2024 4:37 PM [facility] Calcium 8.7 8.5 - 10.5 mg/dL LAB CHEMISTRY METHOD 09/23/2024 4:37 PM [facility] AST (SGOT) 17 10 - 42 unit/L LAB CHEMISTRY METHOD 09/23/2024 4:37 PM [facility] ALT (SGPT) 34 10 - 60 unit/L LAB CHEMISTRY METHOD 09/23/2024 4:37 PM [facility] Alkaline Phosphatase 57 42 - 121 unit/L LAB CHEMISTRY METHOD 09/23/2024 4:37 PM [facility] Total Protein 7.1 6.0 - 8.0 g/dL LAB CHEMISTRY METHOD 09/23/2024 4:37 PM [facility] Albumin 3.2 3.2 - 5.0 g/dL LAB CHEMISTRY METHOD 09/23/2024 4:37 PM [facility] Total Bilirubin 0.6 0.0 - 1.4 mg/dL LAB CHEMISTRY METHOD 09/23/2024 4:37 PM [facility] Blood Venous blood specimen / Unknown Venipuncture / Unknown 09/23/2024 8:20 AM EST 09/23/2024 12:06 PM EST us Amina Burciaga MD LAB BLOOD ORDERABLES Final Resul t [facility] [address] [place] [address], * (ABNORMAL) Complete blood count (09/23/2024 8:20 AM EST) [facility] WBC 6.2 4.8 - 10.8 K/mcL LAB HEMETOLOGY METHOD 09/23/2024 12:38 PM [facility] RBC 3.60(L) 3.80 - 4.80 M/mcL LAB HEMETOLOGY METHOD 09/23/2024 12:38 PM [facility] Hemoglobin 10.5(L) 11.5 - 16.0 g/dL LAB HEMETOLOGY METHOD 09/23/2024 12:38 PM [facility] Hematocrit 36.5 35.0 - 47.0 % LAB HEMETOLOGY METHOD 09/23/2024 12:38 PM [facility] MCV 100.3(H) 79.0 - 98.0 FL LAB HEMETOLOGY METHOD 09/23/2024 12:38 PM [facility] MCH 28.8 27.0 - 32.0 pcg LAB HEMETOLOGY METHOD 09/23/2024 12:38 PM [facility] MCHC 28.8(L) 32.0 - 37.0 g/dL LAB HEMETOLOGY METHOD 09/23/2024 12:38 PM [facility] RDW 18.4(H) 11.0 - 15.0 % LAB HEMETOLOGY METHOD 09/23/2024 12:38 PM [facility] Platelets 254 130 - 400 K/mcL LAB HEMETOLOGY METHOD 09/23/2024 12:38 PM [facility] MPV 10.7 7.0 - 11.0 FL LAB HEMETOLOGY METHOD 09/23/2024 12:38 PM [facility] NRBC 0.0 <1.0 % LAB HEMETOLOGY METHOD 09/23/2024 12:38 PM EST [facility] NRBC Absolute 0.00 <0.10 K/mcL LAB HEMETOLOGY METHOD 09/23/2024 12:38 PM EST [facility] Blood Venous blood specimen / Unknown Venipuncture / Unknown 09/23/2024 8:20 AM EST 09/23/2024 12:06 PM EST us Amina Burciaga MD LAB BLOOD ORDERABLES Final Resul t [facility] [address] [place] [address], documented in this encounter Visit Diagnoses Diagnosis Type 2 diabetes mellitus with unspecified complications (CMS/HCC V24, CMS/HCC V28) Unspecified systolic (congestive) heart failure (CMS/HCC V24, CMS/HCC V28) documented in this encounter Care Teams Cowlman Relationship Specialty Start Date End Date Amina Burciaga MD [address] [place] [address] PCP - General Hospitalist Medicine 09/11/24 documented as of this encounter
--- OUTSIDE RECORDS SUMMARY | 2025-08-30 11:10 | XMS_ITS | Encounter Summary ---
Author Organization [facility], Address [address] [place] [address] Phone Care Team Providers Care Burr Sander Name Role Phone Dandre Chavez MD Primary Care Provider Encounter Details Date Type Department Care Team (Late st Contact Info) Description 08/02/2022 Documentation Only [facility], [address] [place] [address] Faina Villegas PA Social History Tobacco Use [...] on filedocumented in this encounter Care Teams Burr Sander Relationship Specialty Start Date End Date Dandre Chavez MD [address] [place] [address], [address] [place], [place] PCP - General 07/07/19 documented as of this encounter
--- OUTSIDE RECORDS SUMMARY | 2025-08-30 11:10 | XMS_ITS | Encounter Summary ---
Author Organization [facility] Address [address] [place] [address] Care Team Providers Care Long Distance Billing Operator Name Role Phone Amina Burciaga MD Primary Care Provider [phone] Encounter Details Date Type Department Care Team (Latest Contact Info) Description 09/07/2024 Lab Requisition [facility] - Main Lab [address] [facility] [place] [address] Amina Burciaga MD [address] [place] [address] Heart failure, unspecified (CMS/HCC V24, [...] 2 diabetes mellitus without complications ([facility]) documented in this encounter Results * Hemoglobin A1c (09/07/2024 6:24 AM EST) Pathologist [facility] Hemoglobin A1C 5.1 <6.5 % LAB CHEMISTRY METHOD 09/07/2024 11:11 AM EST [facility] Mean Bld Glu Estim. 100 mg/dL LAB CHEMISTRY METHOD 09/07/2024 11:11 AM [facility] Blood Venous blood specimen / Unknown Venipuncture / Unknown 09/07/2024 6:24 AM EST 09/07/2024 8:12 AM EST Amina Burciaga MD LAB BLOOD ORDERABLES Final Resul t [facility] [address] [place] [address], * (ABNORMAL) Comprehensive metabolic panel (09/07/2024 6:24 AM EST) [facility] Sodium 140 133 - 145 mmol/L LAB CHEMISTRY METHOD 09/07/2024 9:18 AM [facility] Potassium 3.8 3.5 - 5.5 mmol/L LAB CHEMISTRY METHOD 09/07/2024 9:18 AM [facility] Chloride 106 96 - 110 mmol/L LAB CHEMISTRY METHOD 09/07/2024 9:18 AM [facility] CO2 28 21 - 32 mmol/L LAB CHEMISTRY METHOD 09/07/2024 9:18 AM [facility] Anion Gap 6 3 - 11 LAB CHEMISTRY METHOD 09/07/2024 9:18 AM [facility] Glucose 61(L) 70 - 100 mg/dL LAB CHEMISTRY METHOD 09/07/2024 9:18 AM [facility] BUN 59(H) 5 - 25 mg/dL LAB CHEMISTRY METHOD 09/07/2024 9:18 AM [facility] Creatinine 3.13(H) 0.50 - 1.10 mg/dL LAB CHEMISTRY METHOD 09/07/2024 9:18 AM [facility] eGFR 15(L) >=60 mL/min/1. 73m2 LAB CHEMISTRY METHOD 09/07/2024 9:18 AM [facility] Comment:Calculation based on the Chronic Kidney Disease Epidemiology Collaboration (CKD-EPI) equation refit without adjustment for race. BUN/Creatinine Ratio 18.8 LAB CHEMISTRY METHOD 09/07/2024 9:18 AM [facility] Calcium 9.0 8.5 - 10.5 mg/dL LAB CHEMISTRY METHOD 09/07/2024 9:18 AM [facility] AST (SGOT) 17 10 - 42 unit/L LAB CHEMISTRY METHOD 09/07/2024 9:18 AM [facility] ALT (SGPT) 20 10 - 60 unit/L LAB CHEMISTRY METHOD 09/07/2024 9:18 AM [facility] Alkaline Phosphatase 60 42 - 121 unit/L LAB CHEMISTRY METHOD 09/07/2024 9:18 AM [facility] Total Protein 6.9 6.0 - 8.0 g/dL LAB CHEMISTRY METHOD 09/07/2024 9:18 AM [facility] Albumin 3.0(L) 3.2 - 5.0 g/dL LAB CHEMISTRY METHOD 09/07/2024 9:18 AM [facility] Total Bilirubin 0.5 0.0 - 1.4 mg/dL LAB CHEMISTRY METHOD 09/07/2024 9:18 AM [facility] Blood Venous blood specimen / Unknown Venipuncture / Unknown 09/07/2024 6:24 AM EST 09/07/2024 8:12 AM EST us Amina Burciaga MD LAB BLOOD ORDERABLES Final Resul t [facility] [address] [place] [address], * (ABNORMAL) Complete blood count (09/07/2024 6:24 AM EST) [facility] Signature WBC 4.7(L) 4.8 - 10.8 K/mcL LAB HEMETOLOGY METHOD 09/07/2024 8:53 AM [facility] RBC 3.00(L) 3.80 - 4.80 M/mcL LAB HEMETOLOGY METHOD 09/07/2024 8:53 AM [facility] Hemoglobin 8.9(L) 11.5 - 16.0 g/dL LAB HEMETOLOGY METHOD 09/07/2024 8:53 AM [facility] Hematocrit 30.6(L) 35.0 - 47.0 % LAB HEMETOLOGY METHOD 09/07/2024 8:53 AM [facility] MCV 101.7(H) 79.0 - 98.0 FL LAB HEMETOLOGY METHOD 09/07/2024 8:53 AM [facility] MCH 29.6 27.0 - 32.0 pcg LAB HEMETOLOGY METHOD 09/07/2024 8:53 AM [facility] MCHC 29.1(L) 32.0 - 37.0 g/dL LAB HEMETOLOGY METHOD 09/07/2024 8:53 AM [facility] RDW 20.1(H) 11.0 - 15.0 % LAB HEMETOLOGY METHOD 09/07/2024 8:53 AM [facility] Platelets 196 130 - 400 K/mcL LAB HEMETOLOGY METHOD 09/07/2024 8:53 AM [facility] MPV 10.0 7.0 - 11.0 FL LAB HEMETOLOGY METHOD 09/07/2024 8:53 AM [facility] NRBC 0.0 <1.0 % LAB HEMETOLOGY METHOD 09/07/2024 8:53 AM EST [facility] NRBC Absolute 0.00 <0.10 K/mcL LAB HEMETOLOGY METHOD 09/07/2024 8:53 AM EST [facility] Blood Venous blood specimen / Unknown Venipuncture / Unknown 09/07/2024 6:24 AM EST 09/07/2024 8:12 AM EST us Amina Burciaga MD LAB BLOOD ORDERABLES Final Resul t [facility] [address] [place] [address], documented in this encounter Visit Diagnoses Diagnosis Heart failure, unspecified (CMS/HCC V24, CMS/HCC V28) Heart failure, unspecified Chronic kidney disease, unspecified Type 2 diabetes mellitus without complications (CMS/HCC V24, CMS/HCC V28) documented in this encounter Care Teams Long Distance Billing Operator Relationship Specialty Start Date End Date Amina Burciaga MD [address] [place] [address] PCP - General Hospitalist Medicine 09/11/24 documented as of this encounter
--- OUTSIDE RECORDS SUMMARY | 2025-08-30 11:10 | XMS_ITS | Encounter Summary ---
Author Organization [facility], Address [address] [place] [address] Phone Care Team Providers Care Information Technology Specialist Name Role Phone Dandre Chavez MD Primary Care Provider [phone] Encounter Details Date Type Department Care Team (Late st Contact Info) Description 10/30/2022 Documentation Only [facility], [address] [place] [address] Melissa Delgadillo [address] [place] [phone] Social History Tobacco Use Types Packs/Day Years [...] on filedocumented in this encounter Care Teams Information Technology Specialist Relationship Specialty Start Date End Date Dandre Chavez MD [address] [place] [address], [address] [place], [place] PCP - General 07/07/19 documented as of this encounter
--- OUTSIDE RECORDS SUMMARY | 2025-08-30 11:10 | XMS_ITS | Encounter Summary ---
Author Organization [facility] Address [address] [place], [place] [address] [place] [address] Phone Care Team Providers Care Team Sports Sales Associate Name Role Phone Dandre Chavez MD Primary Care Provider [phone] Miguel Enciso MD Unavailable [phone] Encounter Details Date Type Department Care Team (Late st Contact Info) Description 07/01/[address] [facility] Cardiology Referral Images [address] [facility] [address] [place] [address] Social History Tobacco Use Types Packs/Day Years [...] on filedocumented in this encounter Care Teams Team Sports Sales Associate Relationship Specialty Start Date End Date Dandre Chavez MD [address] [place] [address] PCP - General 09/05/17 Miguel Enciso MD [address] [place] [address] [email or web address] Cardiology 05/28/24 documented as of this encounter Additional Source Comments The information contained in this document represents components of the legal health record. It is not the complete legal health record.[facility]
--- OUTSIDE RECORDS SUMMARY | 2025-08-30 11:10 | XMS_ITS | Encounter Summary ---
Author Organization [facility], Address [address] [place] [address] Phone Care Team Providers Care Associate Director Qa Name Role Phone Dandre Chavez MD Primary Care Provider [phone] Encounter Details Date Type Department Care Team (Late st Contact Info) Description 02/09/2022 Documentation Only [facility], [address] [place] [address] Faina Villegas PA Social History Tobacco Use [...] on filedocumented in this encounter Care Teams Associate Director Qa Relationship Specialty Start Date End Date Dandre Chavez MD [address] [place] [address], [address] [place], [place] PCP - General 07/07/19 documented as of this encounter
--- OUTSIDE RECORDS SUMMARY | 2025-08-30 11:10 | XMS_ITS | Encounter Summary ---
Author Organization [facility] Address [address] [place] [address] Care Team Providers Care Splitter Machine Name Role Phone Amina Burciaga MD Primary Care Provider [phone] Encounter Details Date Type Department Care Team (Late st Contact Info) Description 07/13/2024 Lab Requisition [facility] - Main Lab [address] [facility] [place] [address] Hortencia Mcclellan MD [address] [id number] Type 2 diabetes mellitus without complications (CMS/HCC [...] Result [facility] [address] [place] [address], * (ABNORMAL) Complete blood count (07/14/2024 6:08 AM EST) [facility] WBC 5.3 4.8 - 10.8 K/mcL [...] LAB HEMETOLOGY METHOD 07/14/2024 8:32 AM EST [facility] NRBC Absolute 0.00 <0.10 K/mcL LAB HEMETOLOGY METHOD 07/14/2024 8:32 AM EST [facility] Blood Venous blood specimen / Unknown Venipuncture / Unknown 07/14/2024 6:08 AM EST 07/14/2024 8:03 AM EST us Hortencia Mcclellan MD LAB BLOOD ORDERABLES Fin al Result [facility] [address] [place] [address], documented in this encounter Visit Diagnoses Diagnosis Type 2 diabetes mellitus without complications (CMS/HCC V24, CMS/HCC V28) Heart failure, unspecified (CMS/HCC V24, CMS/HCC V28) Heart failure, unspecified documented in this encounter Care Teams Splitter Machine Relationship Specialty Start Date End Date Amina Burciaga MD [address] [place] [address] PCP - General Hospitalist Medicine 09/11/24 documented as of this encounter
--- OUTSIDE RECORDS SUMMARY | 2025-08-30 11:10 | XMS_ITS | Clinical Summary ---
Author Organization [facility] Address [address] [place] [address] Phone Care Team Providers Care Waiter/Waitress Second Class Name Role Phone Dandre Chavez MD Primary Care Provider [phone] Miguel Enciso MD Unavailable [phone] Allergies Active Allergy Reactions Criticality Noted Date [...] focus on healthy food choices. 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 She presented with a non-ST relation HI September 2018 and had a new culprit [...] will need to have this completed at [facility]. She is aware that this is [...] She will have this completed at [facility] due to having her stress test completed [...] this topic Medical Devices Implanted Type Area Consulting Property Manager Device Identifier Shelf Expiration Date Model / Serial / Lot Sensor Pulmonary Artery Delivery System Cardiomems - [id number] Implanted:Qt y: 1 on 04/03/2022 by Miguel Enciso MD at [facility] Implantable Monitor Left: Arterial [employer] [id number] 12/15/2023 CM PATIENT SYSTEM / [id number] / Description:Pulmonary artery Procedures Procedure Name Priority Date/Time Associated Diagnosis Comments COMPREHENSIVE METABOLIC PANEL (CMP) Routine 04/18/2022 2:39 PM EDT 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 Essential hypertension Ischemic cardiomyopathy PAD (peripheral artery disease) from Last 3 Months or Most Recently Relevant to Health Maintenance Results * (ABNORMAL) Comprehensive metabolic panel (04/18/2022 2:39 PM EDT) SODIUM 143 133 - 146 mmol/L [facility] POTASSIUM 4.5 3.3 - 5.1 mmol/L [facility] CHLORIDE 100 96 - 108 mmol/L [facility] CO2 34 21 - 35 mmol/L [facility] BUN 38(H) 6 - 19 mg/dL [facility] CREATININE 1.40 0.5 - 1.5 mg/dL [facility] GLUCOSE 163(H) 70 - 99 mg/dL [facility] ALBUMIN 4.0 3.9 - 4.8 g/dL [facility] TOTAL PROTEIN 7.5 6.5 - 8.0 g/dL [facility] CALCIUM 10.1 8.4 - 10.3 mg/dL [facility] ALKALINE PHOSPHATASE 94 39 - 117 U/L [facility] TOTAL BILIRUBIN 0.6 0.0 - 1.2 mg/dL [facility] AST 26 0 - 37 U/L [facility] ALT 12 0 - 40 U/L [facility] GLOBULIN 3.5 1 - 4.8 g/dL [facility] EGFR 39(L) >59 mL/min/1.7 3m2 [facility] Comment:Estimated glomerular filtration rate calculated using the CKD-EPI refit equation. ANION GAP 14 10 - 20 mmol/L [facility] Blood 04/18/2022 2:39 PM EDT 04/18/2022 2:42 PM EDT us Miguel Enciso MD LAB BLOOD BKR ORDERABLES Fi nal Result [facility] [address] [place] [address] from Last 3 Months or Most Recently Relevant to Health Maintenance Insurance MEDICARE PART A & B [place] MEDICARE PREFERRED HMO REPLACEMENT [facility] MEDICARE PART A & B [place] MED[place] PREFERRED HMO REPLACEMENT [facility] [place] [address] MEDICARE PART A & B [facility] MEDICARE PREFERRED HMO REPLACEMENT MEDICARE PART A & B [place] MEDIC[place] PREFERRED HMO REPLACEMENT MEDICARE PART A & B [facility] MEDICARE PREFERRED HMO REPLACEMENT [facility] MEDICARE PART A & B [place] MEDICARE PREFERRED HMO REPLACEMENT MEDICARE PART A & B [place] MEDICARE PREFERRED HMO REPLACEMENT [facility] MEDICARE PART A & B [place] MEDICARE PREFERRED HMO REPLACEMENT [facility] MEDICARE PART A & B [place] MEDICARE PREFERRED HMO REPLACEMENT [facility] Care Teams Waiter/Waitress Second Class Relationship Specialty Start Date End Date Dandre Chavez MD [address] [place] [address] PCP - General 09/05/17 Miguel Enciso MD [address] [place] [address] [email or web address] Cardiology 05/28/24 Additional Source Comments The information contained in this document represents components of the legal health record. It is not the complete legal health record.[facility]
--- OUTSIDE RECORDS SUMMARY | 2025-08-30 11:10 | XMS_ITS | Encounter Summary ---
Author Organization [facility] Address [address] [place] [address] Care Team Providers Care Film Printer Name Role Phone Amina Burciaga MD Primary Care Provider [phone] Encounter Details Date Type Department Care Team (Late st Contact Info) Description 08/10/2024 Lab Requisition [facility] - Main Lab 299 [facility] [employer] [place] [address] Hortencia Mcclellan MD [address] [id number] Type 2 diabetes mellitus without complications (CMS/HCC [...] unspecified documented in this encounter Care Teams Film Printer Relationship Specialty Start Date End Date Amina Burciaga MD [address] [place] [address] PCP - General Hospitalist Medicine 09/11/24 documented as of this encounter
--- OUTSIDE RECORDS SUMMARY | 2025-08-30 11:10 | XMS_ITS | Encounter Summary ---
Author Organization [facility], Address [address] [place] [address] Phone Care Team Providers Care Minilab Operator Name Role Phone Dandre Chavez MD Primary Care Provider [phone] Encounter Details Date Type Department Care Team (Late st Contact Info) Description 09/25/2021 Documentation Only [facility], [address] [place] [address] Faina Villegas PA Social History Tobacco Use [...] on filedocumented in this encounter Care Teams Minilab Operator Relationship Specialty Start Date End Date Dandre Chavez MD [address] [place] [address], [address] [place], [place] PCP - General 07/07/19 documented as of this encounter
--- OUTSIDE RECORDS SUMMARY | 2025-08-30 11:10 | XMS_ITS | Encounter Summary ---
Author Organization [facility] Address [address] [place] [address] Care Team Providers Care Mis Manager Name Role Phone Amina Burciaga MD Primary Care Provider [phone] Encounter Details Date Type Department Care Team (Late st Contact Info) Description 09/30/2024 Lab Requisition [facility] - Main Lab 299 [facility] [place] [address] Isaac Stark MD [address] [place] [address] [place] [address] Heart failure, unspecified [...] (ABNORMAL) Vitamin B12 (09/30/2024 9:57 AM EST) [facility] Vitamin B-12 1,028(H) 250 - 900 pcg/mL LAB CHEMISTRY METHOD 09/30/2024 1:04 PM [facility] Blood Venous blood specimen / Unknown Venipuncture / Unknown 09/30/2024 9:57 AM EST 09/30/2024 10:50 AM EST us Isaac Stark MD LAB BLOOD ORDERABLES Final Resu lt [facility] [address] [place] [address], [place] [phone] * (ABNORMAL) Comprehensive metabolic panel (09/30/2024 9:57 AM EST) [facility] Sodium 138 133 - 145 mmol/L LAB [...] 09/30/2024 1:04 PM [facility] Total Protein 6.2 6.0 [...] MD LAB BLOOD ORDERABLES Final Resu lt [facility] [address] [place] [address], * (ABNORMAL) Complete blood count (09/30/2024 9:57 AM EST) [facility] WBC 5.9 4.8 - 10.8 K/mcL LAB HEMETOLOGY METHOD 09/30/2024 12:25 PM [facility] RBC 3.80 3.80 - 4.80 M/mcL LAB HEMETOLOGY METHOD 09/30/2024 12:25 PM [facility] Hemoglobin 11.2(L) 11.5 - 16.0 g/dL LAB HEMETOLOGY METHOD 09/30/2024 12:25 PM [facility] Hematocrit 37.7 35.0 - 47.0 % LAB HEMETOLOGY METHOD 09/30/2024 12:25 PM [facility] MCV 98.2(H) 79.0 - 98.0 FL LAB HEMETOLOGY METHOD 09/30/2024 12:25 PM [facility] MCH 29.2 27.0 - 32.0 pcg LAB HEMETOLOGY METHOD 09/30/2024 12:25 PM [facility] MCHC 29.7(L) 32.0 - 37.0 g/dL LAB HEMETOLOGY METHOD 09/30/2024 12:25 PM [facility] RDW 17.7(H) 11.0 - 15.0 % LAB HEMETOLOGY METHOD 09/30/2024 12:25 PM [facility] Platelets 183 130 - 400 K/mcL LAB HEMETOLOGY METHOD 09/30/2024 12:25 PM [facility] MPV 11.7(H) 7.0 - 11.0 FL LAB HEMETOLOGY METHOD 09/30/2024 12:25 PM [facility] NRBC 0.0 <1.0 % LAB HEMETOLOGY METHOD 09/30/2024 12:25 PM [facility] NRBC Absolute 0.00 <0.10 K/mcL LAB HEMETOLOGY METHOD 09/30/2024 12:25 PM EST [facility] Blood Venous blood specimen / Unknown Venipuncture / Unknown 09/30/2024 9:57 AM EST 09/30/2024 10:50 AM EST us Isaac Stark MD LAB BLOOD ORDERABLES Final Resu lt Performing Organization Address City/[facility]/ZIP Co de Phone Number [facility] [address] [place] [address], [place] [phone] * Vitamin D 25 hydroxy (09/30/2024 9:57 AM EST) Vit D, 25-Hydroxy 54.9 30.0 - 80.0 ng/mL LAB CHEMISTRY METHOD 09/30/2024 12:48 PM EST [facility] Blood Venous blood specimen / Unknown Venipuncture / Unknown 09/30/2024 9:57 AM EST 09/30/2024 10:50 AM EST us Isaac Stark MD LAB BLOOD ORDERABLES Final Resu lt Performing Organization Address [facility]/ZIP Co de Phone Number [facility] [address] [place] [address], [place] [phone] documented in this encounter Visit Diagnoses Diagnosis Heart failure, unspecified (CMS/HCC V24, CMS/HCC V28) Heart failure, unspecified Vitamin D deficiency, unspecified documented in this encounter Care Teams Mis Manager Relationship Specialty Start Date End Date Amina Burciaga MD [address] [place] [phone] PCP - General Hospitalist Medicine 09/11/24 documented as of this encounter
--- OUTSIDE RECORDS SUMMARY | 2025-08-30 11:10 | XMS_ITS | Encounter Summary ---
Author Organization [facility] Address [address] [place], [place] [address] [place] [address] Phone Care Team Providers Care Founder & Ceo Name Role Phone Dandre Chavez MD Primary Care Provider [phone] Miguel Enciso MD Unavailable Encounter Details Date Type Department Care Team (Late st Contact Info) Description 07/01/2024 Procedure Pass [facility] [place] Referral Images [address] [facility] [address] [place] [address] Social History Tobacco Use Types Packs/Day Years [...] on filedocumented in this encounter Care Teams Founder & Ceo Relationship Specialty Start Date End Date Dandre Chavez MD [address] [place] [address] PCP - General 09/05/17 Miguel Enciso MD [address] [place] [address] [email or web address] Cardiology 05/28/24 documented as of this encounter Additional Source Comments The information contained in this document represents components of the legal health record. It is not the complete legal health record.[facility]
--- OUTSIDE RECORDS SUMMARY | 2025-08-30 11:10 | XMS_ITS | Encounter Summary ---
Author Organization [facility] Address [address] [place] [address] Care Team Providers Care Educational Advisor Name Role Phone Amina Burciaga MD Primary Care Provider Encounter Details Date Type Department Care Team (Late st Contact Info) Description 07/27/2024 Lab Requisition [facility] - Main Lab 299 [facility] [address] Hortencia Mcclellan MD [address] [id number] Type 2 diabetes mellitus without complications (CMS/HCC [...] MD LAB BLOOD ORDERABLES Fin al Result [facility] [address] [place] [address], * (ABNORMAL) Complete blood count (07/28/2024 5:41 AM EST) [facility] WBC 4.1(L) 4.8 - 10.8 K/mcL LAB [...] LAB HEMETOLOGY METHOD 07/28/2024 8:20 AM EST [facility] NRBC Absolute 0.00 <0.10 K/mcL LAB HEMETOLOGY METHOD 07/28/2024 8:20 AM EST [facility] Blood Venous blood specimen / Unknown Venipuncture / Unknown 07/28/2024 5:41 AM EST 07/28/2024 8:02 AM EST us Hortencia Mcclellan MD LAB BLOOD ORDERABLES Fin al Result [facility] [address] [place] [address], documented in this encounter Visit Diagnoses Diagnosis Type 2 diabetes mellitus without complications (CMS/HCC V24, CMS/HCC V28) Heart failure, unspecified (CMS/HCC V24, CMS/HCC V28) Heart failure, unspecified documented in this encounter Care Teams Educational Advisor Relationship Specialty Start Date End Date Amina Burciaga MD [address] [place] [address] PCP - General Hospitalist Medicine 09/11/24 documented as of this encounter
--- OUTSIDE RECORDS SUMMARY | 2025-08-30 11:10 | XMS_ITS | Encounter Summary ---
Author Organization [facility] Address [address] [place] [address] Care Team Providers Care Sessions Clerk Name Role Phone Amina Burciaga MD Primary Care Provider [phone] Encounter Details Date Type Department Care Team (Late st Contact Info) Description 07/20/2024 Lab Requisition [facility] - Main Lab 299 [facility] [place] [address] Hortencia Mcclellan MD 8[address] [facility] [address] [place], [place] [id number] Type 2 diabetes mellitus without complications (CMS/HCC [...] mmol/L LAB CHEMISTRY METHOD 07/21/2024 8:50 AM [facility] Potassium 4.5 3.5 - 5.5 mmol/L LAB CHEMISTRY METHOD 07/21/2024 8:50 AM [facility] Chloride 108 96 - 110 mmol/L LAB CHEMISTRY METHOD 07/21/2024 8:50 AM [facility] CO2 27 21 - 32 mmol/L LAB CHEMISTRY METHOD 07/21/2024 8:50 AM [facility] Anion Gap 5 3 - 11 LAB CHEMISTRY METHOD 07/21/2024 8:50 AM [facility] Glucose 71 70 - 100 mg/dL LAB CHEMISTRY METHOD 07/21/2024 8:50 AM [facility] BUN 68(H) 5 - 25 mg/dL LAB CHEMISTRY METHOD 07/21/2024 8:50 AM [facility] Creatinine 3.00(H) 0.50 - 1.10 mg/dL LAB CHEMISTRY METHOD 07/21/2024 8:50 AM [facility] eGFR 16(L) >=60 mL/min/1. 73m2 LAB CHEMISTRY METHOD 07/21/2024 8:50 AM [facility] Comment:Calculation based on the Chronic Kidney Disease Epidemiology Collaboration (CKD-EPI) equation refit without adjustment for race. BUN/Creatinine Ratio 22.7 LAB CHEMISTRY METHOD 07/21/2024 8:50 AM [facility] Calcium 9.1 8.5 - 10.5 mg/dL LAB CHEMISTRY METHOD 07/21/2024 8:50 AM [facility] Blood Venous blood specimen / Unknown Venipuncture / Unknown 07/21/2024 5:53 AM EST 07/21/2024 7:55 AM EST us Hortencia Mcclellan MD LAB BLOOD ORDERABLES Fin al Result [facility] [address] [place] [address], * (ABNORMAL) Complete blood count (07/21/2024 5:53 AM EST) [facility] WBC 5.0 4.8 - 10.8 K/mcL LAB HEMETOLOGY METHOD 07/21/2024 8:26 AM [facility] RBC 2.90(L) 3.80 - 4.80 M/mcL LAB HEMETOLOGY METHOD 07/21/2024 8:26 AM [facility] Hemoglobin 8.2(L) 11.5 - 16.0 g/dL LAB HEMETOLOGY METHOD 07/21/2024 8:26 AM [facility] Hematocrit 29.0(L) 35.0 - 47.0 % LAB HEMETOLOGY METHOD 07/21/2024 8:26 AM [facility] MCV 100.7(H) 79.0 - 98.0 FL LAB HEMETOLOGY METHOD 07/21/2024 8:26 AM [facility] MCH 28.5 27.0 - 32.0 pcg LAB HEMETOLOGY METHOD 07/21/2024 8:26 AM [facility] MCHC 28.3(L) 32.0 - 37.0 g/dL LAB HEMETOLOGY METHOD 07/21/2024 8:26 AM [facility] RDW 19.2(H) 11.0 - 15.0 % LAB HEMETOLOGY METHOD 07/21/2024 8:26 AM [facility] Platelets 223 130 - 400 K/mcL LAB HEMETOLOGY METHOD 07/21/2024 8:26 AM [facility] MPV 10.0 7.0 - 11.0 FL LAB HEMETOLOGY METHOD 07/21/2024 8:26 AM [facility] NRBC 0.0 <1.0 % LAB HEMETOLOGY METHOD 07/21/2024 8:26 AM EST [facility] NRBC Absolute 0.00 <0.10 K/mcL LAB HEMETOLOGY METHOD 07/21/2024 8:26 AM EST [facility] Blood Venous blood specimen / Unknown Venipuncture / Unknown 07/21/2024 5:53 AM EST 07/21/2024 7:55 AM EST us Hortencia Mcclellan MD LAB BLOOD ORDERABLES Fin al Result [facility] [address] [place] [address], documented in this encounter Visit Diagnoses Diagnosis Type 2 diabetes mellitus without complications (CMS/HCC V24, CMS/HCC V28) Heart failure, unspecified (CMS/HCC V24, CMS/HCC V28) Heart failure, unspecified documented in this encounter Care Teams Sessions Clerk Relationship Specialty Start Date End Date Amina Burciaga MD [address] [place] [address] PCP - General Hospitalist Medicine 09/11/24 documented as of this encounter
--- OUTSIDE RECORDS SUMMARY | 2025-08-30 11:10 | XMS_ITS | Encounter Summary ---
Author Organization [facility] Address [address] [place] [address] Phone Care Team Providers Care Hazardous Material Specialist Name Role Phone Dandre Chavez MD Primary Care Provider [phone] Miguel Enciso MD Unavailable [phone] Encounter Details Date Type Department Care Team (Latest Contact Info) Description 12/16/2018 Ancillary Orders [facility] Non-Invasic Cardiology [address] [place] [address] Cathy Browning NP [address] [place] [address] Atherosclerosis of [place] coronary artery of [place] heart with angina pectoris Social History Tobacco [...] AM EDT) Max BP Systolic 150 mmHg [facility] Max BP Diastolic 80 mmHg [facility] Max HR 89 BPM [facility] Resting HR 78 BPM [facility] Resting BP Systolic 150 mmHg [facility] Resting BP Diastolic 80 mmHg [facility] Peak METS 1.0 METS [facility] Peak HR 83 BPM [facility] Anatomical Region Laterality Modality Heart Other [...] 12/26/18. Cathy Browning NP, MPH. 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 It is not the complete legal health record.[facility]
--- OUTSIDE RECORDS SUMMARY | 2025-08-30 11:10 | XMS_ITS | Encounter Summary ---
Author Organization [facility], Address [address] [place] [address] Phone Care Team Providers Care Needle Leader Name Role Phone Dandre Chavez MD Primary Care Provider [phone] Encounter Details Date Type Department Care Team (Late st Contact Info) Description 10/10/2021 Documentation Only [facility], [address] [place] [address] Faina Villegas PA Social History Tobacco Use [...] on filedocumented in this encounter Care Teams Needle Leader Relationship Specialty Start Date End Date Dandre Chavez MD [address] [place] [address], [address] [place], [place] PCP - General 07/07/19 documented as of this encounter
--- OUTSIDE RECORDS SUMMARY | 2025-08-30 11:10 | XMS_ITS | Encounter Summary ---
Author Organization [facility], Address [address] [place] [address] Phone Care Team Providers Care Director Of Teaching And Learning Name Role Phone Dandre Chavez MD Primary Care Provider [phone] Encounter Details Date Type Department Care Team (Late st Contact Info) Description 02/09/2022 Documentation Only [facility], [address] [place] [address] Faina Villegas PA Social History Tobacco Use [...] in this encounter Care Teams Director Of Teaching And Learning Relationship Specialty Start Date End Date Dandre Chavez MD [address] [place] [address], [address] [place], [place] PCP - General 07/07/19 documented as of this encounter
--- OUTSIDE RECORDS SUMMARY | 2025-08-30 11:10 | XMS_ITS | Encounter Summary ---
Author Organization [facility] Address [address] [place] [address] Care Team Providers Care Purchasing And Claims Supervisor Name Role Phone Amina Burciaga MD Primary Care Provider [phone] Encounter Details Date Type Department Care Team (Late st Contact Info) Description 07/23/2024 Lab Requisition [facility] - Main Lab [address] [place] [address] Hortencia Mcclellan MD [address] [phone] Chronic kidney disease, unspecified; Type 2 diabetes [...] mmol/L LAB CHEMISTRY METHOD 07/23/2024 9:13 AM [facility] CO2 27 21 - 32 mmol/L LAB CHEMISTRY METHOD 07/23/2024 9:13 AM [facility] Anion Gap 6 3 - 11 LAB CHEMISTRY METHOD 07/23/2024 9:13 AM [facility] Glucose 64(L) 70 - 100 mg/dL LAB CHEMISTRY METHOD 07/23/2024 9:13 AM [facility] BUN 62(H) 5 - 25 mg/dL LAB CHEMISTRY METHOD 07/23/2024 9:13 AM [facility] Creatinine 2.70(H) 0.50 - 1.10 mg/dL LAB CHEMISTRY METHOD 07/23/2024 9:13 AM [facility] eGFR 18(L) >=60 mL/min/1. 73m2 LAB CHEMISTRY METHOD 07/23/2024 9:13 AM [facility] Comment:Calculation based on the Chronic Kidney Disease Epidemiology Collaboration (CKD-EPI) equation refit without adjustment for race. BUN/Creatinine Ratio 23.0 LAB CHEMISTRY METHOD 07/23/2024 9:13 AM [facility] Calcium 9.2 8.5 - 10.5 mg/dL LAB CHEMISTRY METHOD 07/23/2024 9:13 AM [facility] Blood Venous blood specimen / Unknown Venipuncture / Unknown 07/23/2024 5:52 AM EST 07/23/2024 8:17 AM EST us Hortencia Mcclellan MD LAB BLOOD ORDERABLES Fin al Result [facility] [address] [place] [address], documented in this encounter Visit Diagnoses Diagnosis Chronic kidney disease, unspecified Type 2 diabetes mellitus without complications (CMS/HCC V24, CMS/HCC V28) documented in this encounter Care Teams Purchasing And Claims Supervisor Relationship Specialty Start Date End Date Amina Burciaga MD [address] [place] [address] PCP - General Hospitalist Medicine 09/11/24 documented as of this encounter
--- OUTSIDE RECORDS SUMMARY | 2025-08-30 11:10 | XMS_ITS | Encounter Summary ---
Author Organization [facility], Address [address] [place] [address] Phone Care Team Providers Care Stereo Plotter Operator Name Role Phone Dandre Chavez MD Primary Care Provider [phone] Encounter Details Date Type Department Care Team (Late st Contact Info) Description 10/12/2021 Documentation Only [facility], [address] [place] [address] Faina Villegas PA Social History Tobacco Use [...] on filedocumented in this encounter Care Teams Stereo Plotter Operator Relationship Specialty Start Date End Date Dandre Chavez MD [address] [place] [address], [address] [place], [place] PCP - General 07/07/19 documented as of this encounter
--- OUTSIDE RECORDS SUMMARY | 2025-08-30 11:10 | XMS_ITS | Encounter Summary ---
Author Organization [facility] Address [address] [place] [address] Care Team Providers Care Stick Feeder Name Role Phone Amina Burciaga MD Primary Care Provider [phone] Encounter Details Date Type Department Care Team (Late st Contact Info) Description 07/10/2024 Lab Requisition [facility] - Main Lab [address] [facility] [place] [address] Lloyd Jernigan MD [address] [place] [address] Unspecified dementia, unspecified severity, without behavioral disturbance, [...] Final R esult [facility] [address] [place] [address], * (ABNORMAL) Complete blood count (07/10/2024 6:29 [...] Final R esult Performing Organization Address City/[facility]/ZIP Co de Phone Number [facility] [address] [place] [address], [place] [phone] * Hemoglobin A1c (07/10/2024 6:29 AM EST) [...] Final R esult [facility] [address] [place] [address], [place] [phone] documented in this encounter Visit Diagnoses Diagnosis Unspecified dementia, unspecified severity, without behavioral disturbance, psychotic disturbance, mood disturbance, and anxiety (CMS/HCC V24, CMS/HCC V28) documented in this encounter Care Teams Stick Feeder Relationship Specialty Start Date End Date Amina Burciaga MD [address] [place] [address] PCP - General Hospitalist Medicine 09/11/24 documented as of this encounter
--- OUTSIDE RECORDS SUMMARY | 2025-08-30 11:10 | XMS_ITS | Encounter Summary ---
Author Organization [facility] Address [address] [place] [address] Care Team Providers Care Dye House Helper Name Role Phone Amina Burciaga MD Primary Care Provider [phone] Encounter Details Date Type Department Care Team (Late st Contact Info) Description 08/03/[address] [facility] - Main Lab 299 [facility] [place] [address] Hortencia Mcclellan MD [address] [id number] Type 2 diabetes mellitus without complications (CMS/HCC [...] MD LAB BLOOD ORDERABLES Fin al Result [facility] [address] [place] [address], * (ABNORMAL) Complete blood count (08/04/2024 6:38 AM EST) [facility] WBC 4.5(L) 4.8 - 10.8 K/mcL [...] LAB HEMETOLOGY METHOD 08/04/2024 9:19 AM EST [facility] NRBC Absolute 0.00 <0.10 K/mcL LAB HEMETOLOGY METHOD 08/04/2024 9:19 AM EST [facility] Blood Venous blood specimen / Unknown Venipuncture / Unknown 08/04/2024 6:38 AM EST 08/04/2024 8:24 AM EST us Hortencia Mcclellan MD LAB BLOOD ORDERABLES Fin al Result [facility] ([facility] [address] [place] [address], documented in this encounter Visit Diagnoses Diagnosis Type 2 diabetes mellitus without complications (CMS/HCC V24, CMS/HCC V28) Heart failure, unspecified (CMS/HCC V24, CMS/HCC V28) Heart failure, unspecified documented in this encounter Care Teams Dye House Helper Relationship Specialty Start Date End Date Amina Burciaga MD [address] [place] [address] PCP - General Hospitalist Medicine 09/11/24 documented as of this encounter
--- OUTSIDE RECORDS SUMMARY | 2025-08-30 11:10 | XMS_ITS | Encounter Summary ---
Author Organization [facility] Address [address] [place] [address] Care Team Providers Care Nurse Assistant Name Role Phone Amina Burciaga MD Primary Care Provider [phone] Encounter Details Date Type Department Care Team (Latest Contact Info) Description 09/11/2024 Lab Requisition [facility] - Main Lab 299 [facility] [place] [place] [address] Amina Burciaga MD [address] [place] [address] Other supervisor intermediates (current) drug therapy; Type 2 diabetes mellitus [...] COUNT Routine 09/11/2024 9:47 AM EST Other supervisor intermediates (current) drug therapy Type 2 diabetes mellitus without complications (CMS/HCC) Heart failure, unspecified (CMS/HCC) MAGNESIUM Routine 09/11/2024 9:47 AM EST Other group home (current) drug therapy Type 2 diabetes mellitus without complications (CMS/HCC) Heart failure, unspecified (CMS/HCC) BASIC METABOLIC PANEL Routine 09/11/2024 9:47 AM EST Other group home (current) drug therapy Type 2 diabetes mellitus without complications (CMS/HCC) Heart failure, unspecified (CMS/HCC) documented in this encounter Results * Magnesium (09/11/2024 9:47 AM EST) [facility] Magnesium 2.1 1.9 - 2.6 mg/dL LAB CHEMISTRY METHOD 09/11/2024 12:45 PM [facility] Blood Venous blood specimen / Unknown Venipuncture / Unknown 09/11/2024 9:47 AM EST 09/11/2024 11:29 AM EST Amina Burciaga MD LAB BLOOD ORDERABLES Final Resul t [facility] [address] [place] [address], * (ABNORMAL) Basic metabolic panel (09/11/2024 9:47 AM EST) [facility] Sodium 137 133 - 145 mmol/L [...] Resul t [facility] [address] [place] [address], * (ABNORMAL) Complete blood count (09/11/2024 9:47 [...] Resul t [facility] [address] [place] [address], documented in this encounter Visit Diagnoses Diagnosis Other group home (current) drug therapy Type 2 diabetes mellitus without complications (CMS/HCC V24, CMS/HCC V28) Heart failure, unspecified (CMS/HCC V24, CMS/HCC V28) Heart failure, unspecified documented in this encounter Care Teams Nurse Assistant Relationship Specialty Start Date End Date Amina Burciaga MD [address] [place] [address] PCP - General Hospitalist Medicine 09/11/24 documented as of this encounter
--- OUTSIDE RECORDS SUMMARY | 2025-08-30 11:11 | XMS_ITS | Encounter Summary ---
Author Organization [facility], Address [address] [place] [address] Phone Care Team Providers Care Precision Lathe Operator Name Role Phone Dandre Chavez MD Primary Care Provider [phone] Encounter Details Date Type Department Care Team (Late st Contact Info) Description 01/14/2023 Documentation Only [facility], [address] [place] [address] Melissa Delgadillo [address] [place] [address] Social History Tobacco Use Types Packs/Day Years [...] on filedocumented in this encounter Care Teams Precision Lathe Operator Relationship Specialty Start Date End Date Dandre Chavez MD [address] [place] [address], [address] [place], [place] PCP - General 07/07/19 documented as of this encounter
--- OUTSIDE RECORDS SUMMARY | 2025-08-30 11:11 | XMS_ITS | Encounter Summary ---
Author Organization [facility] Address [address] [place] [address] Phone Care Team Providers Care Top Screw Name Role Phone Dandre Chavez MD Primary Care Provider [phone] Miguel Enciso MD Unavailable [phone] Encounter Details Date Type Department Care Team (Late st Contact Info) Description 04/03/2022 Procedure Pass [facility] [address] [place] [address] Social History Tobacco Use Types Packs/Day Years [...] on filedocumented in this encounter Care Teams Top Screw Relationship Specialty Start Date End Date Dandre Chavez MD [address] [place] [address] PCP - General 09/05/17 Miguel Enciso MD [address] [place] [address], [address] [place], [place] [phone] [email or web address] Cardiology 05/28/24 documented as of this encounter Additional Source Comments The information contained in this document represents components of the legal health record. It is not the complete legal health record.[facility]
--- OUTSIDE RECORDS SUMMARY | 2025-08-30 11:11 | XMS_ITS | Encounter Summary ---
Author Organization [facility], Address [address] [place] [address] Phone Care Team Providers Care Him Coder Name Role Phone Dandre Chavez MD Primary Care Provider [phone] Encounter Details Date Type Department Care Team (Late st Contact Info) Description 01/08/2025 Documentation Only [facility], [address] [place] [address] Radha Chatterjee [place] [address] [place] [phone] Social History Tobacco Use Types Packs/Day Years [...] on filedocumented in this encounter Care Teams Him Coder Relationship Specialty Start Date End Date Dandre Chavez MD [address] [place] [address], [address] [place], [place] PCP - General 07/07/19 documented as of this encounter
--- OUTSIDE RECORDS SUMMARY | 2025-08-30 11:11 | XMS_ITS | Encounter Summary ---
Author Organization [facility], Address [address] [place] [address] Phone Care Team Providers Care Ornamental Machine Operator Name Role Phone Dandre Chavez MD Primary Care Provider [phone] Encounter Details Date Type Department Care Team (Late st Contact Info) Description 09/07/2022 Documentation Only [facility], [address] [place] [address] Faina Villegas PA Social History Tobacco Use [...] on filedocumented in this encounter Care Teams Ornamental Machine Operator Relationship Specialty Start Date End Date Dandre Chavez MD [address] [place] [address], [address] [place], [place] PCP - General 07/07/19 documented as of this encounter
--- OUTSIDE RECORDS SUMMARY | 2025-08-30 11:11 | XMS_ITS | Encounter Summary ---
Author Organization [facility], Address [address] [place] [address] Phone Care Team Providers Care Plant Changer Name Role Phone Dandre Chavez MD Primary Care Provider [phone] Encounter Details Date Type Department Care Team (Late st Contact Info) Description 08/06/2023 Documentation Only [facility], [address] [place] [address] Desi Rodriguez Social History Tobacco Use Types [...] on filedocumented in this encounter Care Teams Plant Changer Relationship Specialty Start Date End Date Dandre Chavez MD [address] [place] [address], [address] [place], [place] PCP - General 07/07/19 documented as of this encounter
--- OUTSIDE RECORDS SUMMARY | 2025-08-30 11:11 | XMS_ITS | Clinical Summary ---
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 her [...] PM EST) Hemoglobin A1C 6.9(H) (4.0-5.6) % [facility] Comment: MONITORING: In known diabetic patients, [...] [facility], a Service of [facility], [address] [place] [address] Louis Fry MD, Senior Lead Java Developer [facility]# [id number] Blood specimen (specimen) Venous blood / Unknown 10/18/2022 2:34 PM EST 10/18/2022 2:35 PM EST us Faina LUCIANO LAB BLOOD ORDERABLES Final Res ult [facility] from Last 3 Months or Most Recently Relevant to Health Maintenance Insurance Medicare [place] [address] [employer] [facility] [place] [address] Care Teams Ethylene Oxide Panelboard Operator Relationship Specialty Start Date End Date Dandre Chavez MD [address] [place] [address], [address] [place] PCP - General 07/07/19
--- OUTSIDE RECORDS SUMMARY | 2025-08-30 11:11 | XMS_ITS | Encounter Summary ---
Author Organization [facility] Address [address] [place] [address] Phone Care Team Providers Care Digital Production Manager Name Role Phone Dandre Chavez MD Primary Care Provider [phone] Miguel Enciso MD Unavailable [phone] Encounter Details Date Type Department Care Team (Late st Contact Info) Description 08/18/2021 Procedure Pass [facility] [address] [place], [place] [phone] Social History Tobacco Use Types Packs/Day Years [...] on filedocumented in this encounter Care Teams Digital Production Manager Relationship Specialty Start Date End Date Dandre Chavez MD [address] [place] [id number] PCP - General 09/05/17 Mgiuel Enciso MD [address] [facility], [address] [place], [place] [phone] Cardiology 05/28/24 documented as of this encounter Additional Source Comments The information contained in this document represents components of the legal health record. It is not the complete legal health record.[facility]
--- OUTSIDE RECORDS SUMMARY | 2025-08-30 11:11 | XMS_ITS | Encounter Summary ---
Author Organization [facility] [place], Address [address] [place] [address] Phone Care Team Providers Care Airfield Defence Guard Name Role Phone Dandre Chavez MD Primary Care Provider [phone] Encounter Details Date Type Department Care Team (Late st Contact Info) Description 12/31/2022 Documentation Only [facility], [address] [place] [address] Melissa Delgadillo [address] [place] [phone] Social History Tobacco Use Types Packs/Day Years [...] on filedocumented in this encounter Care Teams Airfield Defence Guard Relationship Specialty Start Date End Date Dandre Chavez MD [address] [place] [address], [address] [place], [place] PCP - General 07/07/19 documented as of this encounter
--- OUTSIDE RECORDS SUMMARY | 2025-08-30 11:11 | XMS_ITS | Encounter Summary ---
Author Organization [facility] Address [address] [place] [address] Phone Care Team Providers Care Stamp Redemption Clerk Name Role Phone Dandre Chavez MD Primary Care Provider [phone] Miguel Enciso MD Unavailable [phone] Encounter Details Date Type Department Care Team (Late st Contact Info) Description 09/18/2019 Ancillary Orders [facility] [address] [facility] 3rd Floor [place], [place] [phone] Miguel Enciso MD [address] [place] [address], [address] [place], [place] [phone] [email or web address] PVD (peripheral vascular disease) Social History [...] disease documented in this encounter Care Teams Stamp Redemption Clerk Relationship Specialty Start Date End Date Dandre Chavez MD [address] [place] [address] PCP - General 09/05/17 Miguel Enciso MD [address] [place] [address] Cardiology 05/28/24 documented as of this encounter Additional Source Comments The information contained in this document represents components of the legal health record. It is not the complete legal health record.[facility]
--- OUTSIDE RECORDS SUMMARY | 2025-08-30 11:11 | XMS_ITS | Encounter Summary ---
Author Organization [facility] Address [address] [place] [address] Phone Care Team Providers Care Inspector And Tester Name Role Phone Dandre Chavez MD Primary Care Provider [phone] Miguel Enciso MD Unavailable [phone] Encounter Details Date Type Department Care Team (Late st Contact Info) Description 12/20/2022 Procedure Pass [facility] [address] [place] [address] Social History Tobacco Use Types [...] filedocumented in this encounter Care Teams Inspector And Tester Relationship Specialty Start Date End Date Dandre Chavez MD [address] [place] [id number] PCP - General 09/05/17 Miguel Enciso MD [address] [place] [address], [address] [place], [place] [phone] [email or web address] Cardiology 05/28/24 documented as of this encounter Additional Source Comments The information contained in this document represents components of the legal health record. It is not the complete legal health record.[facility]
--- OUTSIDE RECORDS SUMMARY | 2025-08-30 11:11 | XMS_ITS | Encounter Summary ---
Author Organization [facility], Address [address] [place] [address] Phone Care Team Providers Care Infrastructure Director Name Role Phone Dandre Chavez MD Primary Care Provider [phone] Encounter Details Date Type Department Care Team (Late st Contact Info) Description 12/31/2022 Documentation Only [facility], [address] [place] [address] Melissa Delgadillo [address] [place] [address] Social History Tobacco Use Types Packs/Day Years [...] on filedocumented in this encounter Care Teams Infrastructure Director Relationship Specialty Start Date End Date Dandre Chavez MD [address] [place] [address], [address] [place], [place] PCP - General 07/07/19 documented as of this encounter
--- OUTSIDE RECORDS SUMMARY | 2025-08-30 11:11 | XMS_ITS | Encounter Summary ---
Author Organization [facility], Address [address] [place] [address] Phone Care Team Providers Care Talend Developer Name Role Phone Dandre Chavez MD Primary Care Provider [phone] Encounter Details Date Type Department Care Team (Late st Contact Info) Description 11/29/2023 Documentation Only [facility], [address] [place] [address] Radha Chatterjee [place] [address] [place] [phone] Social History Tobacco Use Types Packs/Day Years [...] on filedocumented in this encounter Care Teams Talend Developer Relationship Specialty Start Date End Date Dandre Chavez MD [address] [place] [address], [address] [place], [place] PCP - General 07/07/19 documented as of this encounter
--- OUTSIDE RECORDS SUMMARY | 2025-08-30 11:11 | XMS_ITS | Encounter Summary ---
Author Organization [facility] Address [address] [place] [address] Phone Care Team Providers Care Automatic Gluing Machine Operator Name Role Phone Dandre Chavez MD Primary Care Provider [phone] Miguel Enciso MD Unavailable [phone] Encounter Details Date Type Department Care Team (Late st Contact Info) Description 12/21/2022 Procedure Pass [facility] [address] [place], [place] [phone] Social History Tobacco Use Types Packs/Day Years [...] on filedocumented in this encounter Care Teams Automatic Gluing Machine Operator Relationship Specialty Start Date End Date Dandre Chavez MD [address] [place] [id number] PCP - General 09/05/17 Miguel Enciso MD [address] [facility], [address] [place], [place] [phone] Cardiology 05/28/24 documented as of this encounter Additional Source Comments The information contained in this document represents components of the legal health record. It is not the complete legal health record.[facility]
== END 2025-08-30 10:02 ==
LOC: HO.MMNH2L 10:01
PROVIDERS: Visit Provider Physician Assistant Medical
DX: I50.33 Acute on chronic diastolic (congestive) heart failure (principal); N18.4 Chronic kidney disease, stage 4 (severe)
CPT/HCPCS: 36415; 80048; 85025